=== PATIENT | female | born 1990 | race African-American/Black ===

== ENCOUNTER 2016-08-13 15:21 | Inpatient (IN) | payer MEDICAID ==
--- NOTE | 2016-08-13 16:37 | ER Document Report ---
ED Medical Screen (RME) - General Stated Complaint: BACK PAIN Mode of Arrival: Ambulatory Information source: Patient Notes: Patient complains pain due to her sickle cell. Patient complains of low back pain and bilateral lower extremity pain. No fever. Patient took oxycodone 10 mg at home without relief. hx: Sickle cell, heart murmur I have greeted and performed a rapid initial assessment of this patient. A comprehensive ED assessment and evaluation of the patient, analysis of test results and completion of the medical decision making process will be conducted by additional ED providers. TRAVEL OUTSIDE OF THE [place] IN LAST 30 DAYS: No - Related Data Allergies/Adverse Reactions: Beef Containing Products Allergy (Verified 06/05/16 15:05) ceftriaxone sodium [From Rocephin] Allergy (Verified 06/05/16 15:05) Cephalosporins Allergy (Verified 06/05/16 15:05) milk [Milk] Allergy (Verified 06/05/16 15:05) Shellfish * [Shellfish] Allergy (Verified 06/05/16 15:05) wheat [Wheat] Allergy (Verified 06/05/16 15:05) Past Medical History - Social History Family history: None - Past Medical History Cardiac Medical History: Reports: Hx Hypertension, Hx Heart Murmur Denies: Hx Coronary Artery Disease, Hx Heart Attack Pulmonary Medical History: Reports: Hx Pneumonia Denies: Hx Asthma, Hx Bronchitis, Hx COPD, Hx Tuberculosis Neurological Medical History: Reports: Hx Migraine, Hx Seizures - 1 x as a child. Denies: Hx Cerebrovascular Accident Endocrine Medical History: Denies: Hx Diabetes Mellitus Type 2, Hx Hyperthyroidism, Hx Hypothyroidism GI Medical History: Reports: Hx Gastroesophageal Reflux Disease Musculoskeltal Medical History: Denies Hx Arthritis, Denies Hx Fibromyalgia Skin Medical History: Reports Hx MRSA Psychiatric Medical History: Reports: Hx Depression Past Surgical History: Reports: Hx Adenoidectomy, Hx Cholecystectomy, Hx Oral Surgery - growth removed from under tongue, Hx Tonsillectomy, Other - Port placement 2 and removal for infection, multiple PICC lines, central l. Denies : Hx Hysterectomy, Hx Kidney (Renal Surgery), Hx Pacemaker - Immunizations Hx Diphtheria, Pertussis, Tetanus Vaccination: Yes Physical Exam - Vital signs Vitals: Temp Pulse Resp BP Pulse Ox 98.4 F 88 16 116/50 L 98 08/13/16 16:23 08/13/16 16:23 08/13/16 16:23 08/13/16 16:23 08/13/16 16:23 - Back Back: Tender - Low back tenderness Course - Vital Signs Vital signs: Temp Pulse Resp BP Pulse Ox 98.4 F 88 16 116/50 L 98 08/13/16 16:23 08/13/16 16:23 08/13/16 16:23 08/13/16 16:23 08/13/16 16:23
[2016-08-13 17:55] LABS: HEMATOCRIT 27.8 % (36.0-47.0); HEMOGLOBIN 9.5 g/dL (12.0-15.5); HGB HCT DIFFERENCE 0.7; MEAN CORPUSCULAR HEMOGLOBIN 35.6 pg (27.0-33.4); MEAN CORPUSCULAR HGB CONC 34.1 g/dL (32.0-36.0); MEAN CORPUSCULAR VOLUME 105 fl (80-97); RED BLOOD COUNT 2.66 10^6/uL (3.72-5.28); WHITE BLOOD COUNT 6.1 10^3/uL (4.0-10.5)
[2016-08-13 18:08] LABS: ALANINE AMINOTRANSFERASE 24 U/L (9-52); ALBUMIN 4.5 g/dL (3.5-5.0); ALKALINE PHOSPHATASE 67 U/L (38-126); ANION GAP 15 (5-19); ASPARTATE AMINO TRANSFERASE 26 U/L (14-36); BILIRUBIN,TOTAL 1.3 mg/dL (0.2-1.3); BLOOD UREA NITROGEN 6 mg/dL (7-20); CALCIUM 9.3 mg/dL (8.4-10.2); CARBON DIOXIDE 22 mmol/L (22-30); CHLORIDE 106 mmol/L (98-107); CREATININE RESULT 0.55 mg/dL (0.52-1.25); GLUCOSE 80 mg/dL (75-110); POTASSIUM 3.8 mmol/L (3.6-5.0); SODIUM 142.7 mmol/L (137-145); TOTAL PROTEIN 8.1 g/dL (6.3-8.2)
[2016-08-13 18:09] LABS: BASOPHILS % (MANUAL) 0 % (0-2); EOSINOPHILS % (MANUAL) 1 % (0-6); LYMPHOCYTES % (MANUAL) 47 % (13-45); NUCLEATED RED BLOOD CELLS 1 /100 WBC (0); TOTAL CELLS COUNTED 100
[2016-08-13 18:11] LABS: ANISOCYTOSIS 2+; OVALOCYTES 1+; POIKILOCYTOSIS 2+
[2016-08-13 18:12] LABS: HOWELL-JOLLY BODIES PRESENT; TARGET CELLS 1+
[2016-08-13] MEDS ORDERED: DIPHENHYDRAMINE HCL 50 MG/ML VIAL IV ONE (23:19)
[2016-08-13] MEDS ORDERED: HYDROMORPHONE HCL INJ/PF 2 MG/ML AMPULE IV ONE (23:19)
--- NOTE | 2016-08-13 23:19 | ER Document Report ---
ED General - General Chief Complaint: Sickle Cell Crisis Stated Complaint: BACK PAIN Time seen by provider: 23:19 Mode of Arrival: Ambulatory Information source: Patient TRAVEL OUTSIDE OF THE [place] IN LAST 30 DAYS: No - HPI Patient complains to provider of: low back pain, leg pain Onset: Yesterday Onset/Duration: Gradual, Persistent Quality of pain: Achy Severity: Moderate Pain Level: 3 Associated symptoms: None Exacerbated by: Denies Relieved by: Denies Similar symptoms previously: Yes Recently seen / treated by doctor: No Notes: Patient is a 26-year-old female presenting to the emergency room complaining of low back pain and bilateral lower extremity pain consistent with previous painful crises, she has a history of sickle cell disease, she denies any fever, no headaches, no nausea, vomiting or diarrhea, denies any injury or trauma, no numbness or tingling to her extremities, no bowel or bladder dysfunction - Related Data Allergies/Adverse Reactions: Beef Containing Products Allergy (Verified 06/05/16 15:05) ceftriaxone sodium [From Rocephin] Allergy (Verified 06/05/16 15:05) Cephalosporins Allergy (Verified 06/05/16 15:05) milk [Milk] Allergy (Verified 06/05/16 15:05) Shellfish * [Shellfish] Allergy (Verified 06/05/16 15:05) wheat [Wheat] Allergy (Verified 06/05/16 15:05) Past Medical History - General Information source: Patient - Social History Smoking Status: Never Smoker Family History: DM, Malignancy - Brother with Hodgkin's lymphoma. Maternal grandfather with lung cancer., Other - sickle trait Patient has suicidal ideation: No Patient has homicidal ideation: No - Past Medical History Cardiac Medical History: Reports: Hx Hypertension, Hx Heart Murmur Denies: Hx Coronary Artery Disease, Hx Heart Attack Pulmonary Medical History: Reports: Hx Pneumonia Denies: Hx Asthma, Hx Bronchitis, Hx COPD, Hx Tuberculosis Neurological Medical History: Reports: Hx Migraine, Hx Seizures - 1 x as a child. Denies: Hx Cerebrovascular Accident Endocrine Medical History: Denies: Hx Diabetes Mellitus Type 2, Hx Hyperthyroidism, Hx Hypothyroidism Renal/ Medical History: Denies: Hx Peritoneal Dialysis GI Medical History: Reports: Hx Gastroesophageal Reflux Disease Musculoskeltal Medical History: Denies Hx Arthritis, Denies Hx Fibromyalgia Skin Medical History: Reports Hx MRSA Psychiatric Medical History: Reports: Hx Depression Past Surgical History: Reports: Hx Adenoidectomy, Hx Cholecystectomy, Hx Oral Surgery - growth removed from under tongue, Hx Tonsillectomy, Other - Port placement 2 and removal for infection, multiple PICC lines, central l. Denies : Hx Hysterectomy, Hx Kidney (Renal Surgery), Hx Pacemaker - Immunizations Hx Diphtheria, Pertussis, Tetanus Vaccination: Yes Hx Pneumococcal Vaccination: 07/08/11 Review of Systems - Review of Systems Constitutional: No symptoms reported. denies: Fever EENT: No symptoms reported Cardiovascular: No symptoms reported Respiratory: No symptoms reported Gastrointestinal: No symptoms reported Genitourinary: No symptoms reported Female Genitourinary: No symptoms reported Musculoskeletal: See HPI Skin: No symptoms reported Hematologic/Lymphatic: No symptoms reported Neurological/Psychological: No symptoms reported -: Yes All other systems reviewed and negative Physical Exam - Vital signs Vitals: Temp Pulse Resp BP Pulse Ox 98.4 F 88 16 116/50 L 98 08/13/16 16:23 08/13/16 16:23 08/13/16 16:23 08/13/16 16:23 08/13/16 16:23 Interpretation: Normal - General General appearance: Appears well, Alert - HEENT Head: Normocephalic, Atraumatic Eyes: Normal Pupils: PERRL - Respiratory Respiratory status: No respiratory distress Chest status: Nontender Breath sounds: Normal Chest palpation: Normal - Cardiovascular Rhythm: Regular Heart sounds: Normal auscultation Murmur: No - Abdominal Inspection: Normal Distension: No distension Bowel sounds: Normal Tenderness: Nontender Organomegaly: No organomegaly - Back Back: Normal, Nontender - Extremities General upper extremity: Normal inspection, Nontender, Normal color, Normal ROM , Normal temperature General lower extremity: Normal inspection, Nontender, Normal color, Normal ROM , Normal temperature, Normal weight bearing. No: Charo's sign - Neurological Neuro grossly intact: Yes Cognition: Normal Orientation: AAOx4 [place] Coma Scale Eye Opening: Spontaneous [place] Coma Scale Verbal: Oriented [place] Coma Scale Motor: Obeys Commands [place] Coma Scale Total: 15 Speech: Normal Motor strength normal: LUE, RUE, LLE, RLE Sensory: Normal - Psychological Associated symptoms: Normal affect, Normal mood - Skin Skin Temperature: Warm Skin Moisture: Dry Skin Color: Normal Course - Re-evaluation Re-evalutation: 08/14/16 03:08 Patient was discussed with cloth coverer, Dr. Cornelius who recommends patient be admitted for her pain 08/14/16 03:30 Patient was discussed with the hospitalist including labs, vital signs, presentation, who states patient does not meet admission criteria at this point in time I placed a call back to patient's cloth coverer to let him know that patient does not meet admission criteria and the hospitalist has deferred admission, he stated he will speak with the hospitalist regarding this patient Patient's sister came out of the room and asked to speak with me, and stated that the patient told her that I was "giving her attitude", I attempted to explain to the patient's sister that we are trying our best to control patient' s pain and take care of her in the emergency room today, that she has received 3 rounds of pain medication at this point in time and that we have had a difficult time getting fluids and her because her IVs are positional and she keeps bending her arms, I explained to patient's sister that we are doing our best to take care of patient and get her pain under control - Vital Signs Vital signs: Temp Pulse Resp BP Pulse Ox 98.1 F 88 18 120/71 100 08/13/16 22:42 08/13/16 22:42 08/13/16 22:42 08/13/16 22:42 08/13/16 22:42 - Laboratory Result Diagrams: 08/13/16 17:25 08/13/16 17:25 Laboratory results interpreted by me: 08/13/16 08/13/16 17:25 17:25 RBC 2.66 L Hgb 9.5 L Hct 27.8 L MCV 105 H MCH 35.6 H RDW 25.0 H Lymphocytes % (Manual) 47 H BUN 6 L Procedures - Additional Procedures IV insertion Time performed: 01:34 Additional Procedures: IV insertion - 20-gauge IV catheter placed in left upper arm using ultrasound guidance Discharge - Discharge Clinical Impression: Sickle-cell disease with pain Condition: Stable Disposition: ADMITTED INPATIENT Admitting Provider: Hospitalist Unit Admitted: Medical Floor
[2016-08-13 23:24] LABS: APPEARANCE,URINE SLIGHTLY-CLOUDY; BILIRUBIN,URINE NEGATIVE (NEGATIVE); GLUCOSE, URINE NEGATIVE (NEGATIVE); KETONES,URINE NEGATIVE (NEGATIVE); LEUKOCYTE ESTERASE,URINE NEGATIVE (NEGATIVE); NITRITE,URINE NEGATIVE (NEGATIVE); PROTEIN,URINE NEGATIVE (NEGATIVE); URINE SPECIFIC GRAVITY 1.011; UROBILINOGEN,URINE NEGATIVE mg/dL (<2.0)
[2016-08-14] MEDS: NORMAL SALINE 1000 ML 1,000 ML IV PRN ×2 (00:46→03:12)
[2016-08-14] MEDS ORDERED: ONDANSETRON HCL INJ/PF 4 MG/2 ML SDV IV ONE (01:33)
[2016-08-14] MEDS ORDERED: HYDROMORPHONE HCL INJ/PF 2 MG/ML AMPULE IV ONE ×3 (01:33→10:30)
[2016-08-14] MEDS ORDERED: NORMAL SALINE 1000 ML 1,000 ML IV PRN ×2 (02:16→03:09)
[2016-08-14] MEDS ORDERED: ONDANSETRON HCL INJ/PF 4 MG/2 ML SDV IV PRN ×3 (03:38→14:56)
[2016-08-14] MEDS ORDERED: FLUTICASONE NASAL SPRAY 50 MCG/SPRY 120 SPRAY/16 GM NASL PRN (03:42)
[2016-08-14] MEDS ORDERED: SENNOSIDES/DOCUSATE 8.6-50 MG 1 EACH TABLET PO PRN (03:42)
[2016-08-14] MEDS ORDERED: HYDROXYUREA 500 MG CAPSULE PO SCH (04:00)
[2016-08-14] MEDS: NORMAL SALINE 1000 ML 1,000 ML IV SCH ×3 (04:50→14:30)
[2016-08-14 07:21] LABS: HGB HCT DIFFERENCE 0.7; MEAN CORPUSCULAR HEMOGLOBIN 35.6 pg (27.0-33.4); MEAN CORPUSCULAR HGB CONC 34.3 g/dL (32.0-36.0); MEAN CORPUSCULAR VOLUME 104 fl (80-97); RED BLOOD COUNT 2.21 10^6/uL (3.72-5.28); RED CELL DISTRIBUTION WIDTH 25.1 % (11.5-14.0); WHITE BLOOD COUNT 7.5 10^3/uL (4.0-10.5)
[2016-08-14 07:24] LABS: HEMOGLOBIN 7.9 g/dL (12.0-15.5)
[2016-08-14 07:34] LABS: ANION GAP 10 (5-19); BLOOD UREA NITROGEN 4 mg/dL (7-20); CALCIUM 8.2 mg/dL (8.4-10.2); CARBON DIOXIDE 22 mmol/L (22-30); CHLORIDE 111 mmol/L (98-107); CREATININE RESULT 0.49 mg/dL (0.52-1.25); GLUCOSE 97 mg/dL (75-110); POTASSIUM 3.6 mmol/L (3.6-5.0); SODIUM 142.8 mmol/L (137-145)
--- NOTE | 2016-08-14 07:55 | PDOC H&P ---
History of Present Illness Admission Date/PCP: 08/14/16 03:38 Patient complains of: Diffuse pain History of Present Illness: PRANAV JOINER is a 26 year old female with a challenging history of sickle cell disease, chronic pain and recurrent pain crisis occurring without biochemical or biophysical evidence of hemolysis, or decompensation in any way. Presenting to the emergency room with intolerable diffuse pain, with an animated affect I feel is inconsistent with pain. That said of been contacted by emergency room provider and patient's forensic toxicologist requesting admission. Past Medical History Cardiac Medical History: Reports: Hypertension, Heart Murmur Denies: Coronary Artery Disease, Myocardial Infarction Pulmonary Medical History: Reports: Pneumonia Denies: Asthma, Bronchitis, Chronic Obstructive Pulmonary Disease (COPD), Tuberculosis Neurological Medical History: Reports: Migraine, Seizures - 1 x as a child Endocrine Medical History: Denies: Diabetes Mellitus Type 2, Hyperthyroidism, Hypothyroidism GI Medical History: Reports: Gastroesophageal Reflux Disease Musculoskeltal Medical History: Denies: Arthritis, Fibromyalgia Psychiatric Medical History: Reports: Depression Hematology: Reports: Anemia, Sickle Cell Disease Past Surgical History Past Surgical History: Reports: Adenoidectomy, Cholecystectomy, Tonsillectomy, Other - Port placement 2 and removal for infection, multiple PICC lines, central l Denies: Hysterectomy, Pacemaker Social History Information Source: Patient, Emergency Med Personnel, [facility] Lives with: Alone Smoking Status: Never Smoker Frequency of Alcohol Use: Rare Hx Recreational Drug Use: No Drugs: None Hx Prescription Drug Abuse: No - unclear - Advance Directive Resuscitation Status: Full Code Family History Family History: DM, Malignancy - Brother with Hodgkin's lymphoma. Maternal grandfather with lung cancer., Other - sickle trait Parental Family History Reviewed: Yes Children Family History Reviewed: Yes Sibling(s) Family History Reviewed.: Yes Medication/Allergy Home Medications: Folic Acid 1 tab PO QHS 06/08/13 Eszopiclone [Lunesta] 1 tab PO QHS PRN 05/16/15 Amlodipine Besylate 1 tab PO DAILY 12/08/15 Butalb/Acetaminophen/Caffeine [Fioricet 50-300-40 mg Capsule] 1 - 2 cap PO Q6 PRN 12/08/15 Hydroxyzine HCl [Atarax 50 mg Tablet] 1 - 2 tab PO Q6HP PRN 12/13/15 Promethazine HCl [Phenergan 25 mg Tablet] 25 mg PO Q6HP PRN 12/13/15 Amitriptyline HCl 2 tab PO QHS 06/05/16 Cetirizine HCl [All Day Allergy] 10 mg PO DAILY 06/05/16 Hydroxyurea 3 cap PO QHS 06/05/16 Hydroxyurea 4 cap PO QHS 06/05/16 Amitriptyline HCl 25 mg PO QAM 06/06/16 Fluticasone Propionate [Flonase Nasal [place] 50 Mcg/Jack 16 gm] 2 sprays NASL DAILY PRN 06/06/16 Polyethylene Glycol 3350 [Miralax Powder 17 gm/Packet] 1 packet PO DAILY PRN Acetaminophen [Tylenol 325 mg Tablet] 650 mg PO Q4HP PRN tablet 06/16/16 Bisacodyl [Dulcolax 5 mg Tablet] 10 mg PO BID tabec 06/16/16 Hydromorphone HCl [Dilaudid] 8 mg PO Q8HP PRN #30 tablet 06/16/16 Polyethylene Glycol 3350 [Miralax Powder 17 gm/Packet] 17 gm PO Q12 powd.pack 06/16/16 Rivaroxaban [Xarelto 15 mg Tablet] 15 mg PO DAILY #30 tablet 06/16/16 Sennosides/Docusate 8.6-50 mg [Senna Plus Tablet] 1 each PO BIDP PRN tablet 04/22 Allergies/Adverse Reactions: Beef Containing Products Allergy (Verified 06/05/16 15:05) ceftriaxone sodium [From Rocephin] Allergy (Verified 06/05/16 15:05) Cephalosporins Allergy (Verified 06/05/16 15:05) milk [Milk] Allergy (Verified 06/05/16 15:05) Shellfish * [Shellfish] Allergy (Verified 06/05/16 15:05) wheat [Wheat] Allergy (Verified 06/05/16 15:05) Review of Systems Constitutional: ABSENT: chills, fever(s), headache(s), weight gain, weight loss Eyes: ABSENT: visual disturbances Ears: ABSENT: hearing changes Cardiovascular: ABSENT: chest pain, dyspnea on exertion, edema, orthropnea, palpitations Respiratory: ABSENT: cough, hemoptysis Gastrointestinal: ABSENT: abdominal pain, constipation, diarrhea, hematemesis, hematochezia, nausea, vomiting Genitourinary: ABSENT: dysuria, hematuria Musculoskeletal: PRESENT: back pain. ABSENT: joint swelling Integumentary: ABSENT: rash, wounds Neurological: ABSENT: abnormal gait, abnormal speech, confusion, dizziness, focal weakness, syncope Psychiatric: ABSENT: anxiety, depression, homidical ideation, suicidal ideation Endocrine: ABSENT: cold intolerance, heat intolerance, polydipsia, polyuria Hematologic/Lymphatic: ABSENT: easy bleeding, easy bruising Physical Exam Vital Signs: Temp Pulse Resp BP Pulse Ox 98.3 F 80 18 118/65 98 08/14/16 05:32 08/14/16 05:32 08/14/16 05:32 08/14/16 05:32 08/14/16 05:32 General appearance: PRESENT: no acute distress, cooperative Head exam: PRESENT: atraumatic, normocephalic Eye exam: PRESENT: conjunctiva pink, EOMI, PERRLA. ABSENT: scleral icterus Ear exam: PRESENT: normal external ear exam Mouth exam: PRESENT: moist, tongue midline Neck exam: ABSENT: carotid bruit, JVD, lymphadenopathy, thyromegaly Respiratory exam: PRESENT: clear to auscultation william. ABSENT: rales, rhonchi, wheezes Cardiovascular exam: PRESENT: RRR. ABSENT: diastolic murmur, rubs, systolic murmur Pulses: PRESENT: normal dorsalis pedis pul Vascular exam: PRESENT: normal capillary refill GI/Abdominal exam: PRESENT: normal bowel sounds, soft. ABSENT: distended, guarding, mass, organolmegaly, rebound, tenderness Rectal exam: PRESENT: deferred Extremities exam: PRESENT: full ROM. ABSENT: calf tenderness, clubbing, pedal edema Neurological exam: PRESENT: alert, awake, oriented to person, oriented to place , oriented to time, oriented to situation, CN II-XII grossly intact. ABSENT: motor sensory deficit Psychiatric exam: PRESENT: anxious, manic, unusual affect Focused psych exam: PRESENT: euphoric, flight of ideas Skin exam: PRESENT: dry, intact, warm. ABSENT: cyanosis, rash Results Laboratory Results: 08/14/16 07:03 08/14/16 08/14/16 07:03 07:03 Seg Neutrophils % Not Reportable Lymphocytes % Not Reportable Monocytes % Not Reportable Eosinophils % Not Reportable Basophils % Not Reportable Absolute Neutrophils Not Reportable Absolute Lymphocytes Not Reportable Absolute Monocytes Not Reportable Absolute Eosinophils Not Reportable Absolute Basophils Not Reportable Sodium 142.8 Potassium 3.6 Chloride 111 H Carbon Dioxide 22 Anion Gap 10 BUN 4 L Creatinine 0.49 L Est GFR ( Amer) > 60 Est GFR (Non-Af Amer) > 60 Glucose 97 Calcium 8.2 L Assessment & Plan - Diagnosis (1) Opiate dependence, continuous Is this a current diagnosis for this admission?: YesPlan: Strongly suggest opiate weaning (2) Sickle cell crisis Is this a current diagnosis for this admission?: YesPlan: Patient's oncologist consulted (3) Constipation Qualifiers: Constipation type: drug induced constipation Qualified Code(s): K59.03 - Drug induced constipation Is this a current diagnosis for this admission?: YesPlan: Opiate weaning and bowel regiment when necessary lactulose and Fleet enema - Time Time Spent: 30 to 50 Minutes
[2016-08-14 07:58] LABS: BASOPHILS % (MANUAL) 0 % (0-2); EOSINOPHILS % (MANUAL) 2 % (0-6); LYMPHOCYTES % (MANUAL) 31 % (13-45); NUCLEATED RED BLOOD CELLS 1 /100 WBC (0); TOTAL CELLS COUNTED 100
[2016-08-14 08:00] LABS: ANISOCYTOSIS 3+; HYPOCHROMASIA 1+; POLYCHROMASIA SLIGHT; SCHISTOCYTES 1+
[2016-08-14] MEDS: AMITRIPTYLINE HCL 25 MG TABLET PO SCH (08:37)
--- NOTE | 2016-08-14 08:57 | PDOC CONSULTATION ---
Consultation Consult Date: 08/14/16 Attending physician:: PATRICIA MORALES Consult reason:: Sickle cell crisis History of Present Illness Admission Date/PCP: 08/14/16 03:38 Patient complains of: Overall body pain consistent with sickle cell crisis History of Present Illness: 26-year-old female with presentation with sickle cell crisis, she has pain in her back arms and legs consistent with her usual sites of disease, we had been giving her IV fluids as an outpatient, for the last 2 weeks. Previously we treated the crisis that was going on for weeks ago with IV fluids as well as oral Dilaudid as an outpatient. Unfortunately now, the pain got worse and she had to be admitted. Hemoglobin has been stable in the 9 range. She did receive Dilaudid in the ED with some relief, we are changing medications now. Past Medical History Cardiac Medical History: Reports: Hypertension, Heart Murmur Denies: Coronary Artery Disease, Myocardial Infarction Pulmonary Medical History: Reports: Pneumonia Denies: Asthma, Bronchitis, Chronic Obstructive Pulmonary Disease (COPD), Tuberculosis Neurological Medical History: Reports: Migraine, Seizures - 1 x as a child Endocrine Medical History: Denies: Diabetes Mellitus Type 2, Hyperthyroidism, Hypothyroidism GI Medical History: Reports: Gastroesophageal Reflux Disease Musculoskeltal Medical History: Denies: Arthritis, Fibromyalgia Psychiatric Medical History: Reports: Depression Hematology: Reports: Anemia, Sickle Cell Disease Past Surgical History Past Surgical History: Reports: Adenoidectomy, Cholecystectomy, Tonsillectomy, Other - Port placement 2 and removal for infection, multiple PICC lines, central l Denies: Hysterectomy, Pacemaker Social History Lives with: Alone Smoking Status: Never Smoker Frequency of Alcohol Use: Rare Hx Recreational Drug Use: No Drugs: None Hx Prescription Drug Abuse: No - unclear - Advance Directive Resuscitation Status: Full Code Family History Family History: DM, Malignancy - Brother with Hodgkin's lymphoma. Maternal grandfather with lung cancer., Other - sickle trait Parental Family History Reviewed: Yes Children Family History Reviewed: Yes Sibling(s) Family History Reviewed.: Yes Medication/Allergy Home Medications: Folic Acid 1 tab PO QHS 06/08/13 Eszopiclone [Lunesta] 1 tab PO QHS PRN 05/16/15 Amlodipine Besylate 1 tab PO DAILY 12/08/15 Butalb/Acetaminophen/Caffeine [Fioricet 50-300-40 mg Capsule] 1 - 2 cap PO Q6 PRN 12/08/15 Hydroxyzine HCl [Atarax 50 mg Tablet] 1 - 2 tab PO Q6HP PRN 12/13/15 Promethazine HCl [Phenergan 25 mg Tablet] 25 mg PO Q6HP PRN 12/13/15 Amitriptyline HCl 2 tab PO QHS 06/05/16 Cetirizine HCl [All Day Allergy] 10 mg PO DAILY 06/05/16 Hydroxyurea 3 cap PO QHS 06/05/16 Hydroxyurea 4 cap PO QHS 06/05/16 Amitriptyline HCl 25 mg PO QAM 06/06/16 Fluticasone Propionate [Flonase Nasal [place] 50 Mcg/[place] 16 gm] 2 sprays NASL DAILY PRN 06/06/16 Polyethylene Glycol 3350 [Miralax Powder 17 gm/Packet] 1 packet PO DAILY PRN Acetaminophen [Tylenol 325 mg Tablet] 650 mg PO Q4HP PRN tablet 06/16/16 Bisacodyl [Dulcolax 5 mg Tablet] 10 mg PO BID tabec 06/16/16 Hydromorphone HCl [Dilaudid] 8 mg PO Q8HP PRN #30 tablet 06/16/16 Polyethylene Glycol 3350 [Miralax Powder 17 gm/Packet] 17 gm PO Q12 powd.pack 06/16/16 Rivaroxaban [Xarelto 15 mg Tablet] 15 mg PO DAILY #30 tablet 06/16/16 Sennosides/Docusate 8.6-50 mg [Senna Plus Tablet] 1 each PO BIDP PRN tablet 04/22 Allergies/Adverse Reactions: Beef Containing Products Allergy (Verified 06/05/16 15:05) ceftriaxone sodium [From Rocephin] Allergy (Verified 06/05/16 15:05) Cephalosporins Allergy (Verified 06/05/16 15:05) milk [Milk] Allergy (Verified 06/05/16 15:05) Shellfish * [Shellfish] Allergy (Verified 06/05/16 15:05) wheat [Wheat] Allergy (Verified 06/05/16 15:05) Review of Systems Constitutional: PRESENT: fatigue, weakness Cardiovascular: PRESENT: chest pain Respiratory: PRESENT: dyspnea Musculoskeletal: PRESENT: back pain, other - Arm pain, leg pain Integumentary: PRESENT: pruritus Psychiatric: PRESENT: depression Physical Exam Vital Signs: Temp Pulse Resp BP Pulse Ox 97.9 F 88 18 115/54 L 98 08/14/16 07:58 08/14/16 07:58 08/14/16 07:58 08/14/16 07:58 08/14/16 07:58 General appearance: PRESENT: no acute distress, well-developed, well-nourished Head exam: PRESENT: atraumatic, normocephalic Eye exam: PRESENT: conjunctiva pink, EOMI, PERRLA. ABSENT: scleral icterus Ear exam: PRESENT: normal external ear exam Mouth exam: PRESENT: moist, tongue midline Neck exam: ABSENT: carotid bruit, JVD, lymphadenopathy, thyromegaly Respiratory exam: PRESENT: clear to auscultation william. ABSENT: rales, rhonchi, wheezes Cardiovascular exam: PRESENT: RRR. ABSENT: diastolic murmur, rubs, systolic murmur Pulses: PRESENT: normal dorsalis pedis pul Vascular exam: PRESENT: normal capillary refill GI/Abdominal exam: PRESENT: normal bowel sounds, soft. ABSENT: distended, guarding, mass, organolmegaly, rebound, tenderness Rectal exam: PRESENT: deferred Extremities exam: PRESENT: full ROM. ABSENT: calf tenderness, clubbing, pedal edema Neurological exam: PRESENT: alert, awake, oriented to person, oriented to place , oriented to time, oriented to situation, CN II-XII grossly intact. ABSENT: motor sensory deficit Psychiatric exam: PRESENT: appropriate affect, normal mood. ABSENT: homicidal ideation, suicidal ideation Skin exam: PRESENT: dry, intact, warm. ABSENT: cyanosis, rash Results Laboratory Results: 08/14/16 07:03 08/14/16 07:03 08/14/16 08/14/16 07:03 07:03 WBC 7.5 RBC 2.21 L Hgb 7.9 L Hct 23.0 L MCV 104 H MCH 35.6 H MCHC 34.3 RDW 25.1 H Plt Count 291 Seg Neutrophils % Not Reportable Lymphocytes % Not Reportable Monocytes % Not Reportable Eosinophils % Not Reportable Basophils % Not Reportable Absolute Neutrophils Not Reportable Absolute Lymphocytes Not Reportable Absolute Monocytes Not Reportable Absolute Eosinophils Not Reportable Absolute Basophils Not Reportable Sodium 142.8 Potassium 3.6 Chloride 111 H Carbon Dioxide 22 Anion Gap 10 BUN 4 L Creatinine 0.49 L Est GFR ( Amer) > 60 Est GFR (Non-Af Amer) > 60 Glucose 97 Calcium 8.2 L Assessment & Plan - Diagnosis (1) Sickle cell crisis Is this a current diagnosis for this admission?: YesPlan: Patient with sickle cell pain crisis, we'll start Dilaudid 3 mg IV every 2 hours scheduled, started Phenergan, Atarax for itching, K pad for comfort, SCD/ Prakash's. - Time Time Spent: 30 to 50 Minutes Critical Time spent with patient: 15-24 minutes - Inpatient Certification Based on my medical assessment, after consideration of the patient's comorbidities, presenting symptoms, or acuity I expect that the services needed warrant INPATIENT care.: Yes I certify that my determination is in accordance with my understanding of Medicare's requirements for reasonable and necessary INPATIENT services [42 CFR 412.3e].: Yes Medical Necessity: Need For IV Fluids, Need for Pain Control
[2016-08-14] MEDS: AMLODIPINE BESYLATE 5 MG TABLET PO SCH (09:06)
[2016-08-14] MEDS: DOCUSATE SODIUM 100 MG CAPSULE PO SCH ×2 (09:07→18:43)
[2016-08-14 09:36] LABS: APPEARANCE,URINE CLEAR; BILIRUBIN,URINE NEGATIVE (NEGATIVE); GLUCOSE, URINE NEGATIVE (NEGATIVE); KETONES,URINE NEGATIVE (NEGATIVE); LEUKOCYTE ESTERASE,URINE NEGATIVE (NEGATIVE); NITRITE,URINE NEGATIVE (NEGATIVE); PROTEIN,URINE NEGATIVE (NEGATIVE); URINE SPECIFIC GRAVITY 1.008; UROBILINOGEN,URINE NEGATIVE mg/dL (<2.0)
[2016-08-14 10:06] LABS: URINE BARBITURATES SCREEN NEGATIVE; URINE METHADONE SCREEN NEGATIVE; URINE PHENCYCLIDINE SCREEN NEGATIVE
[2016-08-14 10:09] LABS: URINE OPIATES LOW UNCONFIRMED POSITIVE
[2016-08-14] MEDS: POLYETHYLENE GLYCOL 3350 POWDER 17 GM/1 PACKET PO PRN (11:21)
[2016-08-14] MEDS: RIVAROXABAN 15 MG TABLET PO SCH (11:25)
[2016-08-14] MEDS ORDERED: HYDROMORPHONE HCL INJ/PF 2 MG/ML AMPULE IV SCH (12:00)
[2016-08-14] MEDS: HYDROXYZINE PAMOATE 25 MG CAPSULE PO PRN (12:57)
[2016-08-14] MEDS: HYDROMORPHONE HCL INJ/PF 2 MG/ML AMPULE IV SCH ×5 (14:11→22:02)
--- NOTE | 2016-08-14 15:26 | PDOC PROGRESS REPORT ---
Subjective Progress Note for:: 08/14/16 Subjective:: The patient was seen earlier today on rounds. The patient admits to sniffles. Patient is enjoying her lunch upon rounds. The patient also admits to some shortness of breath with activity. The patient denies any nausea, vomiting, diarrhea, dizziness, chest pain, heart palpitations, fevers, or chills. The patient has remained afebrile. Blood pressures have been in a good range. When prompted the patient voices no other concerns at this time. Review of systems: The rest of the review of systems is negative. Physical Exam Vital Signs: Temp Pulse Resp BP Pulse Ox 98.6 F 107 H 16 130/60 H 98 08/14/16 11:24 08/14/16 11:24 08/14/16 11:24 08/14/16 11:24 08/14/16 11:24 General appearance: PRESENT: no acute distress, cooperative, well-developed, well-nourished Head exam: PRESENT: atraumatic, normocephalic Eye exam: PRESENT: conjunctiva pink, EOMI, PERRLA. ABSENT: scleral icterus Ear exam: PRESENT: normal external ear exam Mouth exam: PRESENT: moist, tongue midline Neck exam: ABSENT: carotid bruit, JVD, lymphadenopathy, thyromegaly Respiratory exam: PRESENT: clear to auscultation william, symmetrical, unlabored. ABSENT: rales, rhonchi, tachypnea, wheezes Cardiovascular exam: PRESENT: RRR. ABSENT: diastolic murmur, rubs, systolic murmur Pulses: PRESENT: normal dorsalis pedis pul Vascular exam: PRESENT: normal capillary refill GI/Abdominal exam: PRESENT: normal bowel sounds, soft. ABSENT: distended, guarding, mass, organolmegaly, rebound, tenderness Rectal exam: PRESENT: deferred Extremities exam: PRESENT: full ROM. ABSENT: calf tenderness, clubbing, pedal edema Neurological exam: PRESENT: alert, awake, oriented to person, oriented to place , oriented to time, oriented to situation, CN II-XII grossly intact. ABSENT: motor sensory deficit Psychiatric exam: PRESENT: appropriate affect, normal mood. ABSENT: homicidal ideation, suicidal ideation Skin exam: PRESENT: dry, intact, warm. ABSENT: cyanosis, rash Results Laboratory Results: 08/14/16 07:03 08/14/16 07:03 08/14/16 08/14/16 08/14/16 07:03 07:03 09:14 WBC 7.5 RBC 2.21 L Hgb 7.9 L Hct 23.0 L MCV 104 H MCH 35.6 H MCHC 34.3 RDW 25.1 H Plt Count 291 Seg Neutrophils % Not Reportable Lymphocytes % Not Reportable Monocytes % Not Reportable Eosinophils % Not Reportable Basophils % Not Reportable Absolute Neutrophils Not Reportable Absolute Lymphocytes Not Reportable Absolute Monocytes Not Reportable Absolute Eosinophils Not Reportable Absolute Basophils Not Reportable Sodium 142.8 Potassium 3.6 Chloride 111 H Carbon Dioxide 22 Anion Gap 10 BUN 4 L Creatinine 0.49 L Est GFR ( Amer) > 60 Est GFR (Non-Af Amer) > 60 Glucose 97 Calcium 8.2 L Urine Color YELLOW Urine Appearance CLEAR Urine pH 6.0 Ur Specific [place] 1.008 Urine Protein NEGATIVE Urine Glucose (UA) NEGATIVE Urine Ketones NEGATIVE Urine Blood NEGATIVE Urine Nitrite NEGATIVE Ur Leukocyte Esterase NEGATIVE Urine WBC (Auto) 1 Urine RBC (Auto) 0 Assessment & Plan - Diagnosis (1) Sickle-cell disease with pain Is this a current diagnosis for this admission?: YesPlan: Management as per hematology (2) Dyspnea Qualifiers: Dyspnea type: dyspnea on exertion Qualified Code(s): R06.09 - Other forms of dyspnea Is this a current diagnosis for this admission?: YesPlan: Continue supplemental O2. I have added Singulair and Flonase (3) Opiate dependence, continuous Is this a current diagnosis for this admission?: YesPlan: As per hematology (4) Cardiac dysrhythmia Qualifiers: Arrhythmia type: ventricular tachycardia Qualified Code(s): I47.2 - Ventricular tachycardia Is this a current diagnosis for this admission?: No (5) Constipation Qualifiers: Constipation type: drug induced constipation Qualified Code(s): K59.03 - Drug induced constipation Is this a current diagnosis for this admission?: Yes (6) DVT prophylaxis Is this a current diagnosis for this admission?: Yes (7) Deep venous thrombosis of right upper limb Qualifiers: Affected thrombotic vein of extremity: axillary Chronicity: unspecified Qualified Code(s): I82.A11 - Acute embolism and thrombosis of right axillary vein Is this a current diagnosis for this admission?: No (8) Hypertension Qualifiers: Hypertension type: essential hypertension Qualified Code(s): I10 - Essential (primary) hypertension Is this a current diagnosis for this admission?: YesPlan: Continue her medications (9) Major depression Qualifiers: Major depression recurrence: recurrent Major depression episode severity: moderate Is this a current diagnosis for this admission?: YesPlan: Will continue home medications. - Time Time Spent with patient: on this visit including assessment, plan, physical examination, specialty collaboration, and patient education is 35 minutes. Time Spent with patient: 35 or more minutes Medications reviewed and adjusted accordingly: Yes Anticipated discharge: Home Disposition: As per hematology
[2016-08-14] MEDS: PROMETHAZINE HCL INJ 25 MG/1 ML VIAL IV PRN (19:01)
[2016-08-14] MEDS: MONTELUKAST SODIUM 10 MG TABLET PO SCH (22:01)
[2016-08-14] MEDS: HYDROXYUREA 500 MG CAPSULE PO SCH (22:01)
[2016-08-14] MEDS: FLUTICASONE NASAL SPRAY 50 MCG/SPRY 120 SPRAY/16 GM NASL SCH (22:02)
[2016-08-15] MEDS: HYDROMORPHONE HCL INJ/PF 2 MG/ML AMPULE IV SCH ×11 (00:12→22:18)
[2016-08-15] MEDS: HYDROXYZINE PAMOATE 25 MG CAPSULE PO PRN ×3 (00:20→17:20)
[2016-08-15 06:55] LABS: HEMATOCRIT 21.5 % (36.0-47.0); MEAN CORPUSCULAR HEMOGLOBIN 36.5 pg (27.0-33.4); MEAN CORPUSCULAR VOLUME 104 fl (80-97); RED BLOOD COUNT 2.06 10^6/uL (3.72-5.28); WHITE BLOOD COUNT 8.4 10^3/uL (4.0-10.5)
[2016-08-15 07:07] LABS: ANION GAP 11 (5-19); BLOOD UREA NITROGEN 3 mg/dL (7-20); CALCIUM 8.8 mg/dL (8.4-10.2); CARBON DIOXIDE 22 mmol/L (22-30); CHLORIDE 107 mmol/L (98-107); CREATININE RESULT 0.45 mg/dL (0.52-1.25); GLUCOSE 82 mg/dL (75-110); POTASSIUM 3.9 mmol/L (3.6-5.0); SODIUM 140.4 mmol/L (137-145)
[2016-08-15 07:15] LABS: HEMOGLOBIN 7.5 g/dL (12.0-15.5)
[2016-08-15 07:33] LABS: ANISOCYTOSIS 3+; BASOPHILS % (MANUAL) 0 % (0-2); EOSINOPHILS % (MANUAL) 2 % (0-6); HYPOCHROMASIA 2+; LYMPHOCYTES % (MANUAL) 53 % (13-45); NUCLEATED RED BLOOD CELLS 1 /100 WBC (0); OVALOCYTES 1+; POIKILOCYTOSIS 2+; POLYCHROMASIA 2+; SCHISTOCYTES 1+; TARGET CELLS 1+; TOTAL CELLS COUNTED 100
[2016-08-15 07:34] LABS: HOWELL-JOLLY BODIES PRESENT
[2016-08-15] MEDS: AMITRIPTYLINE HCL 25 MG TABLET PO SCH (08:27)
[2016-08-15] MEDS: PROMETHAZINE HCL INJ 25 MG/1 ML VIAL IV PRN ×3 (08:50→22:16)
--- NOTE | 2016-08-15 08:56 | PDOC PROGRESS REPORT ---
Subjective Progress Note for:: 08/15/16 Subjective:: Patient had a rough night yesterday had a lot of pain Physical Exam Vital Signs: Temp Pulse Resp BP Pulse Ox 98.3 F 108 H 20 132/70 H 98 08/14/16 22:01 08/14/16 22:01 08/14/16 22:01 08/14/16 22:01 08/15/16 05:09 Intake & Output 08/14/16 08/15/16 08/16/16 06:59 06:59 06:59 Intake Total 2070 Output Total 2600 Balance -530 General appearance: PRESENT: no acute distress, well-developed, well-nourished Head exam: PRESENT: atraumatic, normocephalic Eye exam: PRESENT: conjunctiva pink, EOMI, PERRLA. ABSENT: scleral icterus Ear exam: PRESENT: normal external ear exam Mouth exam: PRESENT: moist, tongue midline Neck exam: ABSENT: carotid bruit, JVD, lymphadenopathy, thyromegaly Respiratory exam: PRESENT: clear to auscultation william. ABSENT: rales, rhonchi, wheezes Cardiovascular exam: PRESENT: RRR. ABSENT: diastolic murmur, rubs, systolic murmur Pulses: PRESENT: normal dorsalis pedis pul Vascular exam: PRESENT: normal capillary refill GI/Abdominal exam: PRESENT: normal bowel sounds, soft. ABSENT: distended, guarding, mass, organolmegaly, rebound, tenderness Rectal exam: PRESENT: deferred Extremities exam: PRESENT: full ROM. ABSENT: calf tenderness, clubbing, pedal edema Neurological exam: PRESENT: alert, awake, oriented to person, oriented to place , oriented to time, oriented to situation, CN II-XII grossly intact. ABSENT: motor sensory deficit Psychiatric exam: PRESENT: appropriate affect, normal mood. ABSENT: homicidal ideation, suicidal ideation Skin exam: PRESENT: dry, intact, warm. ABSENT: cyanosis, rash Results Laboratory Results: 08/15/16 06:22 08/15/16 06:22 08/14/16 08/15/16 08/15/16 09:14 06:22 06:22 WBC 8.4 RBC 2.06 L Hgb 7.5 L Hct 21.5 L MCV 104 H MCH 36.5 H MCHC 35.0 RDW 25.0 H Plt Count 268 Seg Neutrophils % Not Reportable Lymphocytes % Not Reportable Monocytes % Not Reportable Eosinophils % Not Reportable Basophils % Not Reportable Absolute Neutrophils Not Reportable Absolute Lymphocytes Not Reportable Absolute Monocytes Not Reportable Absolute Eosinophils Not Reportable Absolute Basophils Not Reportable Sodium 140.4 Potassium 3.9 Chloride 107 Carbon Dioxide 22 Anion Gap 11 BUN 3 L Creatinine 0.45 L Est GFR ( Amer) > 60 Est GFR (Non-Af Amer) > 60 Glucose 82 Calcium 8.8 Urine Color YELLOW Urine Appearance CLEAR Urine pH 6.0 Ur Specific [place] 1.008 Urine Protein NEGATIVE Urine Glucose (UA) NEGATIVE Urine Ketones NEGATIVE Urine Blood NEGATIVE Urine Nitrite NEGATIVE Ur Leukocyte Esterase NEGATIVE Urine WBC (Auto) 1 Urine RBC (Auto) 0 Assessment & Plan - Diagnosis (1) Sickle cell crisis Is this a current diagnosis for this admission?: YesPlan: Sickle cell disease with crisis, we will increase Dilaudid today, continue all other medications, K pad to legs for comfort, monitor closely, hold on blood transfusion for now, once hemoglobin gets under 7 plan for transfusion. - Time Time Spent with patient: 25-34 minutes Critical Time spent with patient: 25-34 minutes - Inpatient Certification Based on my medical assessment, after consideration of the patient's comorbidities, presenting symptoms, or acuity I expect that the services needed warrant INPATIENT care.: Yes I certify that my determination is in accordance with my understanding of Medicare's requirements for reasonable and necessary INPATIENT services [42 CFR 412.3e].: Yes Medical Necessity: Need for IV Antibiotics
[2016-08-15] MEDS: FLUTICASONE NASAL SPRAY 50 MCG/SPRY 120 SPRAY/16 GM NASL SCH ×2 (10:23→22:14)
[2016-08-15] MEDS: AMLODIPINE BESYLATE 5 MG TABLET PO SCH (10:24)
[2016-08-15] MEDS: RIVAROXABAN 15 MG TABLET PO SCH (10:25)
[2016-08-15] MEDS: DOCUSATE SODIUM 100 MG CAPSULE PO SCH ×2 (10:26→19:20)
[2016-08-15] MEDS: POLYETHYLENE GLYCOL 3350 POWDER 17 GM/1 PACKET PO PRN (10:28)
--- NOTE | 2016-08-15 14:13 | PDOC PROGRESS REPORT ---
Subjective Progress Note for:: 08/15/16 Subjective:: Patient seen on morning rounds. She is resting in bed. She is tearful. She states she had a rough night because of pain. Nursing staff reports she slept most of the night She states she is still having nausea and vomiting, but is asking for a regular diet. She denies any shortness of breath or dyspnea. She denies any cough. Physical Exam Vital Signs: Temp Pulse Resp BP Pulse Ox 98.7 F 100 16 96/51 L 93 08/15/16 12:14 08/15/16 12:14 08/15/16 12:14 08/15/16 12:14 08/15/16 12:14 Intake & Output 08/14/16 08/15/16 08/16/16 06:59 06:59 06:59 Intake Total 2070 Output Total 2600 Balance -530 General appearance: PRESENT: no acute distress, well-developed, well-nourished Head exam: PRESENT: atraumatic, normocephalic Eye exam: PRESENT: conjunctiva pink, EOMI, PERRLA. ABSENT: scleral icterus Ear exam: PRESENT: normal external ear exam Mouth exam: PRESENT: moist, tongue midline Neck exam: ABSENT: carotid bruit, JVD, lymphadenopathy, thyromegaly Respiratory exam: PRESENT: clear to auscultation william. ABSENT: rales, rhonchi, wheezes Cardiovascular exam: PRESENT: RRR. ABSENT: diastolic murmur, rubs, systolic murmur Pulses: PRESENT: normal dorsalis pedis pul Vascular exam: PRESENT: normal capillary refill GI/Abdominal exam: PRESENT: normal bowel sounds, soft. ABSENT: distended, guarding, mass, organolmegaly, rebound, tenderness Rectal exam: PRESENT: deferred Extremities exam: PRESENT: full ROM. ABSENT: calf tenderness, clubbing, pedal edema Neurological exam: PRESENT: alert, awake, oriented to person, oriented to place , oriented to time, oriented to situation, CN II-XII grossly intact. ABSENT: motor sensory deficit Psychiatric exam: PRESENT: anxious Skin exam: PRESENT: dry, intact, warm. ABSENT: cyanosis, rash Results Laboratory Results: 08/15/16 06:22 08/15/16 06:22 08/15/16 08/15/16 06:22 06:22 WBC 8.4 RBC 2.06 L Hgb 7.5 L Hct 21.5 L MCV 104 H MCH 36.5 H MCHC 35.0 RDW 25.0 H Plt Count 268 Seg Neutrophils % Not Reportable Lymphocytes % Not Reportable Monocytes % Not Reportable Eosinophils % Not Reportable Basophils % Not Reportable Absolute Neutrophils Not Reportable Absolute Lymphocytes Not Reportable Absolute Monocytes Not Reportable Absolute Eosinophils Not Reportable Absolute Basophils Not Reportable Sodium 140.4 Potassium 3.9 Chloride 107 Carbon Dioxide 22 Anion Gap 11 BUN 3 L Creatinine 0.45 L Est GFR ( Amer) > 60 Est GFR (Non-Af Amer) > 60 Glucose 82 Calcium 8.8 Assessment & Plan - Diagnosis (1) Sickle-cell disease with pain Is this a current diagnosis for this admission?: YesPlan: Pain management per Dr Cornelius, 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 Hgb 7.5. Will hold transfusion unless under 7. (2) Hypertension Qualifiers: Hypertension type: essential hypertension Qualified Code(s): I10 - Essential (primary) hypertension Is this a current diagnosis for this admission?: YesPlan: Presently normotensive on current medications (3) Opiate dependence, continuous Is this a current diagnosis for this admission?: YesPlan: Patient is tolerating dilaudid 3 mg IV q2hprn. She is on chronic opioid therapy at home. (4) Major depression Qualifiers: Major depression recurrence: recurrent Major depression episode severity: moderate Is this a current diagnosis for this admission?: YesPlan: Continue current medications (5) Constipation Qualifiers: Constipation type: drug induced constipation Qualified Code(s): K59.03 - Drug induced constipation Is this a current diagnosis for this admission?: YesPlan: Patient states her bowels moved yesterday (6) Diastolic CHF Qualifiers: Congestive heart failure chronicity: chronic Qualified Code(s): I50.32 - Chronic diastolic (congestive) heart failure Is this a current diagnosis for this admission?: YesPlan: Patient is presently euvolemic. She denies dyspnea - Time Time Spent with patient: 25-34 minutes Critical Time spent with patient: 15-24 minutes Medications reviewed and adjusted accordingly: Yes
[2016-08-15] MEDS: HYDROXYUREA 500 MG CAPSULE PO SCH (22:16)
[2016-08-15] MEDS: MONTELUKAST SODIUM 10 MG TABLET PO SCH (22:17)
[2016-08-16] MEDS: HYDROXYZINE PAMOATE 25 MG CAPSULE PO PRN (00:20)
[2016-08-16] MEDS: HYDROMORPHONE HCL INJ/PF 2 MG/ML AMPULE IV SCH ×12 (00:21→23:06)
[2016-08-16] MEDS: NORMAL SALINE 1000 ML 1,000 ML IV PRN ×2 (00:25→11:59)
[2016-08-16] MEDS: PROMETHAZINE HCL INJ 25 MG/1 ML VIAL IV PRN ×2 (04:39→17:54)
[2016-08-16 07:48] LABS: HEMATOCRIT 19.2 % (36.0-47.0); HGB HCT DIFFERENCE 1.5; MEAN CORPUSCULAR HEMOGLOBIN 36.3 pg (27.0-33.4); MEAN CORPUSCULAR HGB CONC 35.7 g/dL (32.0-36.0); MEAN CORPUSCULAR VOLUME 102 fl (80-97); RED BLOOD COUNT 1.89 10^6/uL (3.72-5.28); RED CELL DISTRIBUTION WIDTH 25.9 % (11.5-14.0)
[2016-08-16 08:01] LABS: ANION GAP 9 (5-19); BLOOD UREA NITROGEN 3 mg/dL (7-20); CALCIUM 8.5 mg/dL (8.4-10.2); CARBON DIOXIDE 24 mmol/L (22-30); CHLORIDE 106 mmol/L (98-107); CREATININE RESULT 0.43 mg/dL (0.52-1.25); GLUCOSE 73 mg/dL (75-110); POTASSIUM 3.7 mmol/L (3.6-5.0); SODIUM 138.7 mmol/L (137-145)
[2016-08-16 08:02] LABS: HEMOGLOBIN 6.9 g/dL (12.0-15.5)
[2016-08-16 08:06] LABS: ANISOCYTOSIS 3+; BAND NEUTROPHILS % (MANUAL) 1 % (3-5); BASOPHILS % (MANUAL) 0 % (0-2); EOSINOPHILS % (MANUAL) 1 % (0-6); HOWELL-JOLLY BODIES PRESENT; HYPOCHROMASIA 1+; LYMPHOCYTES % (MANUAL) 39 % (13-45); NUCLEATED RED BLOOD CELLS 1 /100 WBC (0); OVALOCYTES 2+; POIKILOCYTOSIS 3+; TOTAL CELLS COUNTED 100
[2016-08-16] MEDS: AMITRIPTYLINE HCL 25 MG TABLET PO SCH (08:14)
--- NOTE | 2016-08-16 08:40 | PDOC PROGRESS REPORT ---
Subjective Progress Note for:: 08/16/16 Subjective:: Patient still having a lot of pain today but would like to keep the pain medication the same. Physical Exam Vital Signs: Temp Pulse Resp BP Pulse Ox 98.4 F 116 H 18 116/60 100 08/15/16 23:26 08/15/16 23:26 08/15/16 23:26 08/15/16 23:26 08/15/16 23:26 Intake & Output 08/15/16 08/16/16 08/17/16 06:59 06:59 06:59 Intake Total 2070 800 Output Total 2600 1200 Balance -530 -400 General appearance: PRESENT: no acute distress, well-developed, well-nourished Head exam: PRESENT: atraumatic, normocephalic Eye exam: PRESENT: conjunctiva pink, EOMI, PERRLA. ABSENT: scleral icterus Ear exam: PRESENT: normal external ear exam Mouth exam: PRESENT: moist, tongue midline Neck exam: ABSENT: carotid bruit, JVD, lymphadenopathy, thyromegaly Respiratory exam: PRESENT: clear to auscultation william. ABSENT: rales, rhonchi, wheezes Cardiovascular exam: PRESENT: RRR. ABSENT: diastolic murmur, rubs, systolic murmur Pulses: PRESENT: normal dorsalis pedis pul Vascular exam: PRESENT: normal capillary refill GI/Abdominal exam: PRESENT: normal bowel sounds, soft. ABSENT: distended, guarding, mass, organolmegaly, rebound, tenderness Rectal exam: PRESENT: deferred Extremities exam: PRESENT: full ROM. ABSENT: calf tenderness, clubbing, pedal edema Neurological exam: PRESENT: alert, awake, oriented to person, oriented to place , oriented to time, oriented to situation, CN II-XII grossly intact. ABSENT: motor sensory deficit Psychiatric exam: PRESENT: appropriate affect, normal mood. ABSENT: homicidal ideation, suicidal ideation Skin exam: PRESENT: dry, intact, warm. ABSENT: cyanosis, rash Results Laboratory Results: 08/16/16 06:25 08/16/16 06:25 08/16/16 08/16/16 06:25 06:25 WBC 6.0 RBC 1.89 L Hgb 6.9 L Hct 19.2 L MCV 102 H MCH 36.3 H MCHC 35.7 RDW 25.9 H Plt Count 249 Seg Neutrophils % Not Reportable Lymphocytes % Not Reportable Monocytes % Not Reportable Eosinophils % Not Reportable Basophils % Not Reportable Absolute Neutrophils Not Reportable Absolute Lymphocytes Not Reportable Absolute Monocytes Not Reportable Absolute Eosinophils Not Reportable Absolute Basophils Not Reportable Sodium 138.7 Potassium 3.7 Chloride 106 Carbon Dioxide 24 Anion Gap 9 BUN 3 L Creatinine 0.43 L Est GFR ( Amer) > 60 Est GFR (Non-Af Amer) > 60 Glucose 73 L Calcium 8.5 Assessment & Plan - Diagnosis (1) Sickle cell crisis Is this a current diagnosis for this admission?: YesPlan: Continue with current pain medication today, she will need PICC line placement, I will change Atarax to Benadryl, I have added a bowel regimen continue with aggressive IV hydration. (2) Sickle cell anemia Qualifiers: Sickle-cell associated disorders: with unspecified crisis Qualified Code(s): D57.00 - Hb-SS disease with crisis, unspecified; D57.0 - Hb-SS disease with crisis Is this a current diagnosis for this admission?: YesPlan: Patient with sickle cell anemia, hemoglobin is dropped because of the crisis, plan to transfuse 2 units of packed red blood cells. - Time Time Spent with patient: 25-34 minutes Critical Time spent with patient: 25-34 minutes Medications reviewed and adjusted accordingly: Yes - Inpatient Certification Based on my medical assessment, after consideration of the patient's comorbidities, presenting symptoms, or acuity I expect that the services needed warrant INPATIENT care.: Yes I certify that my determination is in accordance with my understanding of Medicare's requirements for reasonable and necessary INPATIENT services [42 CFR 412.3e].: Yes Medical Necessity: Need For Continuous Telemetry Monitoring, Need for Pain Control
[2016-08-16] MEDS ORDERED: SENNOSIDES/DOCUSATE 8.6-50 MG 1 EACH TABLET PO PRN (08:59)
[2016-08-16] MEDS ORDERED: POLYETHYLENE GLYCOL 3350 POWDER 17 GM/1 PACKET PO PRN (08:59)
[2016-08-16] MEDS ORDERED: DIPHENHYDRAMINE HCL 25 MG CAPSULE PO PRN (09:06)
[2016-08-16] MEDS ORDERED: ACETAMINOPHEN 325 MG TABLET PO PRN (09:07)
[2016-08-16] MEDS ORDERED: FUROSEMIDE INJ/PF 20 MG/2 ML SDV IV PRN (09:42)
[2016-08-16] MEDS ORDERED: (PENDING PHARMACY ID) (Cetirizine Hcl [Zyrtec] 10 MG) PO SCH (10:00)
--- NOTE | 2016-08-16 10:18 | PDOC PROGRESS REPORT ---
Subjective Progress Note for:: 08/16/16 Subjective:: The patient has just returned from having a PICC line placed. The patient does seem a little groggy. It appears the patient is to have a blood transfusion as per hematology. pain management as per hematology. Sinus congestion has appear to improved. No reported episodes of diarrhea. Physical Exam Vital Signs: Temp Pulse Resp BP Pulse Ox 98.4 F 116 H 18 116/60 100 08/15/16 23:26 08/15/16 23:26 08/15/16 23:26 08/15/16 23:26 08/15/16 23:26 Intake & Output 08/14/16 08/15/16 08/16/16 23:59 23:59 23:59 Intake Total 1140 1730 Output Total 1300 2500 Balance -160 -770 General appearance: PRESENT: no acute distress, cooperative, well-developed, well-nourished Head exam: PRESENT: atraumatic, normocephalic Eye exam: PRESENT: conjunctiva pink, EOMI, PERRLA. ABSENT: scleral icterus Ear exam: PRESENT: normal external ear exam Mouth exam: PRESENT: moist, tongue midline Neck exam: ABSENT: carotid bruit, JVD, lymphadenopathy, thyromegaly Respiratory exam: PRESENT: clear to auscultation william, symmetrical, unlabored. ABSENT: rales, rhonchi, tachypnea, wheezes Cardiovascular exam: PRESENT: RRR. ABSENT: diastolic murmur, rubs, systolic murmur Pulses: PRESENT: normal dorsalis pedis pul Vascular exam: PRESENT: normal capillary refill GI/Abdominal exam: PRESENT: normal bowel sounds, soft. ABSENT: distended, guarding, mass, organolmegaly, rebound, tenderness Rectal exam: PRESENT: deferred Extremities exam: PRESENT: full ROM. ABSENT: calf tenderness, clubbing, pedal edema Neurological exam: PRESENT: alert, awake, oriented to person, oriented to place , oriented to time, oriented to situation, CN II-XII grossly intact. ABSENT: motor sensory deficit Psychiatric exam: PRESENT: Groggy, normal mood. ABSENT: homicidal ideation, suicidal ideation Skin exam: PRESENT: dry, intact, warm. ABSENT: cyanosis, rash Results Laboratory Results: 08/16/16 06:25 08/16/16 06:25 08/16/16 08/16/16 06:25 06:25 WBC 6.0 RBC 1.89 L Hgb 6.9 L Hct 19.2 L MCV 102 H MCH 36.3 H MCHC 35.7 RDW 25.9 H Plt Count 249 Seg Neutrophils % Not Reportable Lymphocytes % Not Reportable Monocytes % Not Reportable Eosinophils % Not Reportable Basophils % Not Reportable Absolute Neutrophils Not Reportable Absolute Lymphocytes Not Reportable Absolute Monocytes Not Reportable Absolute Eosinophils Not Reportable Absolute Basophils Not Reportable Sodium 138.7 Potassium 3.7 Chloride 106 Carbon Dioxide 24 Anion Gap 9 BUN 3 L Creatinine 0.43 L Est GFR ( Amer) > 60 Est GFR (Non-Af Amer) > 60 Glucose 73 L Calcium 8.5 Assessment & Plan - Diagnosis (1) Sickle-cell disease with pain Is this a current diagnosis for this admission?: YesPlan: Management as per hematology. The patient is to be transfused today. (2) Dyspnea Qualifiers: Dyspnea type: dyspnea on exertion Qualified Code(s): R06.09 - Other forms of dyspnea Is this a current diagnosis for this admission?: YesPlan: Asymptomatic at this time. (3) Opiate dependence, continuous Is this a current diagnosis for this admission?: YesPlan: Management as per hematology (4) Cardiac dysrhythmia Qualifiers: Arrhythmia type: ventricular tachycardia Qualified Code(s): I47.2 - Ventricular tachycardia Is this a current diagnosis for this admission?: No (5) Constipation Qualifiers: Constipation type: drug induced constipation Qualified Code(s): K59.03 - Drug induced constipation Is this a current diagnosis for this admission?: YesPlan: Will continue marrow lacks (6) DVT prophylaxis Is this a current diagnosis for this admission?: Yes (7) Deep venous thrombosis of right upper limb Qualifiers: Affected thrombotic vein of extremity: axillary Chronicity: unspecified Qualified Code(s): I82.A11 - Acute embolism and thrombosis of right axillary vein Is this a current diagnosis for this admission?: No (8) Hypertension Qualifiers: Hypertension type: essential hypertension Qualified Code(s): I10 - Essential (primary) hypertension Is this a current diagnosis for this admission?: YesPlan: Will continue home medications. (9) Major depression Qualifiers: Major depression recurrence: recurrent Major depression episode severity: moderate Is this a current diagnosis for this admission?: YesPlan: Will continue home medications. - Time Time Spent with patient: Less than 15 minutes Medications reviewed and adjusted accordingly: Yes Anticipated discharge: Home Within: Other
[2016-08-16] MEDS: RIVAROXABAN 15 MG TABLET PO SCH (10:31)
[2016-08-16] MEDS: CETIRIZINE 10 MG TABLET PO SCH (10:33)
[2016-08-16] MEDS: DOCUSATE SODIUM 100 MG CAPSULE PO SCH ×2 (10:33→17:53)
[2016-08-16] MEDS: IPRATROPIUM/ALBUTEROL 0.5-2.5 MG/3 ML AMPUL NEB PRN (10:56)
[2016-08-16] MEDS ORDERED: FLUTICASONE NASAL SPRAY 50 MCG/SPRY 120 SPRAY/16 GM NASL ONE (11:00)
[2016-08-16] MEDS ORDERED: AMLODIPINE BESYLATE 5 MG TABLET PO ONE (11:00)
[2016-08-16] MEDS ORDERED: FOLIC ACID 1 MG TABLET PO ONE (11:00)
[2016-08-16] MEDS: POLYETHYLENE GLYCOL 3350 POWDER 17 GM/1 PACKET PO SCH (11:59)
[2016-08-16] MEDS: PROMETHAZINE HCL 25 MG TABLET PO SCH ×2 (11:59→18:08)
--- NOTE | 2016-08-16 13:23 | EKG REPORT ---
SEVERITY:- ABNORMAL ECG - SINUS TACHYCARDIA NONSPECIFIC T ABNORMALITIES, LATERAL LEADS BORDERLINE PROLONGED QT INTERVAL : Confirmed by: Samir Harrison MD 16-Aug-2016 13:23:16
--- NOTE | 2016-08-16 15:26 | Physician Advisory Note ---
Physician Advisor ProgressNote .: [facility], I have reviewed the medical record for this patient. Physician Advisor Statement: This is a combination note of status determination done 08/14/16 (late documentation) & Blue Notes review today. Possible documentation opportunities if attending agrees: 1. "suspected protein-calorie malnutrition [state mild, mod, or severe] with BMI 24.2, ____[?wt loss, ?appetite loss, ]" [if possible, give specifics on intake, wt loss, loss of SQ fat & muscle mass, diminished hand manager technology strength, & clinical importance such as (A) nutritional assessment ordered, (B) modified diet or supplements ordered, (C) additional labs ordered, (D) prolonged wound healing time, (E) delayed infxn clearance] - - - Auditors are strict about the dx of malnutrition - has to be explicitly spelled out. Discussion: 26yo female w/ chronic co-morbidities including HTN, sickle cell dz w/recurrent adms, migraines, GERD, MRSA in past, chronic pain, opioid dependence already taking Dilaudid 8mg q8h prn at home, multiple IV lines including 2 ports with removal, & multiple PICC lines & central lines - presented 2/6 PM to ED w/back & leg pain, concerning for sickle cell crisis. In ED, she was given Dilaudid 2mg x 3, & NS wide open x2L, + Zofran & Benadryl , but she continued to c/o intolerable pain. Admitting attending documented "unusual affect", "anxious, manic, euphoric, flight of ideas". Oncologist documented he had been giving her IVF outpt x 2wks, with po Dilaudid, & pain had become worse in spite of this & she needed adm. Hgb "has been stable in the 9 range." (+) fatigue, weakness, CP, SOB, back pain, pruritis, dep (+) T98.4, HR88, RR16, BP 116/50, Hgb 9.5, BUN 6, Cr 0.55, UDS + for opiates & THC. Attending ordered onc consult, NS x3L at 250, PRN Zofran & BM regimen, f/u labs , O2 2L. Onc then ordered Dilaudid 3mg IV q2h scheduled, + Phenergan, Atarax for itching, K pad for comfort, documented ongoing need for IVF & pain control. Status: THis is a complex pt with opiate dependency but also sickle cell crisis, with tremendous/extreme opiate tolerance. Oncologist documented failure of outpt tx , & ended up ordering Dilaudid 3mg at 10:30 & then 3mg q2h scheduled as of 13: 00 on 08/14. Certainly this is a dose that could easily lead to oversedation, respiratory depression, & even in the wrong pt/situation, & requires extremely close monitoring in hospital to prevent harm to pt, even as it appeared necessary for adequate pain control in this situation. Tx in inpatient hospital setting medically reasonable & necessary to protect pt' s health, safety, & medical condition. Appropriate for Inpt admission. Since that time, Hgb drop to 6.9 is consistent with acute sickle crisis, & Dilaudid dose has been increased to 4mg q2h on 28 AM, then 5mg q2h! Thanks for your help with documentation accuracy/specificity improvement! Juliet Gusman MD [facility] Physician Advisor, Fellow of Hospital Medicine
[2016-08-16] MEDS ORDERED: AMITRIPTYLINE HCL 25 MG TABLET PO SCH (18:00)
[2016-08-16] MEDS: AMITRIPTYLINE HCL 50 MG TABLET PO SCH (18:04)
[2016-08-16] MEDS: HYDROXYUREA 500 MG CAPSULE PO SCH (23:06)
[2016-08-16] MEDS: MONTELUKAST SODIUM 10 MG TABLET PO SCH (23:07)
[2016-08-16] MEDS: FLUTICASONE NASAL SPRAY 50 MCG/SPRY 120 SPRAY/16 GM NASL SCH (23:07)
[2016-08-17] MEDS: HYDROMORPHONE HCL INJ/PF 2 MG/ML AMPULE IV SCH ×11 (01:15→21:16)
[2016-08-17] MEDS: PROMETHAZINE HCL 25 MG TABLET PO SCH ×4 (01:15→18:42)
[2016-08-17] MEDS: PROMETHAZINE HCL INJ 25 MG/1 ML VIAL IV PRN (02:15)
[2016-08-17 06:41] LABS: ABSOLUTE BASOPHILS # (AUTO) 0.1 10^3/uL (0.0-0.2); ABSOLUTE EOSINOPHILS # (AUTO) 0.1 10^3/uL (0.0-0.6); ABSOLUTE MONOCYTES (AUTO) 0.5 10^3/uL (0.1-1.4); ABSOLUTE NEUT (AUTO) 2.8 10^3/uL (1.7-8.2); EOSINOPHILS % (AUTO) 2.1 % (0-6); MEAN CORPUSCULAR HEMOGLOBIN 33.3 pg (27.0-33.4); MEAN CORPUSCULAR HGB CONC 34.7 g/dL (32.0-36.0); MONOCYTES % (AUTO) 9.6 % (3-13); RED CELL DISTRIBUTION WIDTH 23.5 % (11.5-14.0); SEGMENTED NEUTROPHILS % (AUTO) 51.3 % (42-78); WHITE BLOOD COUNT 5.5 10^3/uL (4.0-10.5)
[2016-08-17 06:48] LABS: ANION GAP 7 (5-19); CARBON DIOXIDE 23 mmol/L (22-30); CHLORIDE 112 mmol/L (98-107); GLUCOSE 88 mg/dL (75-110); SODIUM 141.8 mmol/L (137-145)
[2016-08-17 06:51] LABS: BLOOD UREA NITROGEN < 2 mg/dL (7-20)
[2016-08-17 06:57] LABS: MEAN CORPUSCULAR VOLUME 96 fl (80-97)
[2016-08-17 07:01] LABS: CALCIUM 6.5 mg/dL (8.4-10.2); POTASSIUM 2.9 mmol/L (3.6-5.0)
--- NOTE | 2016-08-17 08:02 | PDOC PROGRESS REPORT ---
Subjective Progress Note for:: 08/17/16 Subjective:: Still in considerable pain, still w/ overall body pain, no BM yet Physical Exam Vital Signs: Temp Pulse Resp BP Pulse Ox 98.3 F 95 18 119/63 92 08/16/16 21:20 08/16/16 21:20 08/16/16 21:20 08/16/16 21:20 08/16/16 21:20 Intake & Output 08/16/16 08/17/16 08/18/16 06:59 06:59 06:59 Intake Total 800 1626 Output Total 1200 1250 Balance -400 376 General appearance: PRESENT: no acute distress, well-developed, well-nourished Head exam: PRESENT: atraumatic, normocephalic Eye exam: PRESENT: conjunctiva pink, EOMI, PERRLA. ABSENT: scleral icterus Ear exam: PRESENT: normal external ear exam Mouth exam: PRESENT: moist, tongue midline Neck exam: ABSENT: carotid bruit, JVD, lymphadenopathy, thyromegaly Respiratory exam: PRESENT: clear to auscultation william. ABSENT: rales, rhonchi, wheezes Cardiovascular exam: PRESENT: RRR. ABSENT: diastolic murmur, rubs, systolic murmur Pulses: PRESENT: normal dorsalis pedis pul Vascular exam: PRESENT: normal capillary refill GI/Abdominal exam: PRESENT: normal bowel sounds, soft. ABSENT: distended, guarding, mass, organolmegaly, rebound, tenderness Rectal exam: PRESENT: deferred Extremities exam: PRESENT: full ROM. ABSENT: calf tenderness, clubbing, pedal edema Neurological exam: PRESENT: alert, awake, oriented to person, oriented to place , oriented to time, oriented to situation, CN II-XII grossly intact. ABSENT: motor sensory deficit Psychiatric exam: PRESENT: appropriate affect, normal mood. ABSENT: homicidal ideation, suicidal ideation Skin exam: PRESENT: dry, intact, warm. ABSENT: cyanosis, rash Results Laboratory Results: 08/17/16 06:10 08/17/16 06:10 08/16/16 08/16/16 08/16/16 06:25 06:25 10:33 WBC 6.0 RBC 1.89 L Hgb 6.9 L Hct 19.2 L MCV 102 H MCH 36.3 H MCHC 35.7 RDW 25.9 H Plt Count 249 Seg Neutrophils % Not Reportable Lymphocytes % Not Reportable Monocytes % Not Reportable Eosinophils % Not Reportable Basophils % Not Reportable Absolute Neutrophils Not Reportable Absolute Lymphocytes Not Reportable Absolute Monocytes Not Reportable Absolute Eosinophils Not Reportable Absolute Basophils Not Reportable Sodium 138.7 Potassium 3.7 Chloride 106 Carbon Dioxide 24 Anion Gap 9 BUN 3 L Creatinine 0.43 L Est GFR ( Amer) > 60 Est GFR (Non-Af Amer) > 60 Glucose 73 L Calcium 8.5 Blood Type O POSITIVE Antibody Screen NEGATIVE 08/17/16 08/17/16 06:10 06:10 WBC 5.5 RBC 2.40 L Hgb 8.0 L Hct 23.0 L MCV 96 D MCH 33.3 MCHC 34.7 RDW 23.5 H Plt Count 208 Seg Neutrophils % 51.3 Lymphocytes % 36.0 Monocytes % 9.6 Eosinophils % 2.1 Basophils % 1.0 Absolute Neutrophils 2.8 Absolute Lymphocytes 2.0 Absolute Monocytes 0.5 Absolute Eosinophils 0.1 Absolute Basophils 0.1 Sodium 141.8 Potassium 2.9 L* Chloride 112 H Carbon Dioxide 23 Anion Gap 7 BUN < 2 L Creatinine 0.40 L Est GFR ( Amer) > 60 Est GFR (Non-Af Amer) > 60 Glucose 88 Calcium 6.5 L* Blood Type Antibody Screen Impressions: Guidance Fluoroscopy 08/16/16 00:00 IMPRESSION: SUCCESSFUL PLACEMENT OF A 5 FR DUAL LUMEN 37 CM PICC IN THE left basilic VEIN. Interventional Vascular Procedure 08/16/16 00:00 IMPRESSION: SUCCESSFUL PLACEMENT OF A 5 FR DUAL LUMEN 37 CM PICC IN THE left basilic VEIN. PICC Line Insertion 08/16/16 00:00 IMPRESSION: SUCCESSFUL PLACEMENT OF A 5 FR DUAL LUMEN 37 CM PICC IN THE left basilic VEIN. Assessment & Plan - Diagnosis (1) Sickle cell crisis Is this a current diagnosis for this admission?: YesPlan: Still severe, increase dilaudid to 6mg q 2 hours RTC, add ambien 5mg HS, give enema for BM (2) Sickle cell anemia Qualifiers: Sickle-cell associated disorders: with unspecified crisis Qualified Code(s): D57.00 - Hb-SS disease with crisis, unspecified; D57.0 - Hb-SS disease with crisis Is this a current diagnosis for this admission?: YesPlan: Anemia better post tx, did not improve as much as in past, probably b/c crisis slightly worse this time, watch for now, tx only if hb <7, will try to be conservative for rest of admit. - Time Time Spent with patient: 25-34 minutes Critical Time spent with patient: 25-34 minutes - Inpatient Certification Based on my medical assessment, after consideration of the patient's comorbidities, presenting symptoms, or acuity I expect that the services needed warrant INPATIENT care.: Yes I certify that my determination is in accordance with my understanding of Medicare's requirements for reasonable and necessary INPATIENT services [42 CFR 412.3e].: Yes Medical Necessity: Need For IV Fluids, Need for Pain Control
[2016-08-17] MEDS ORDERED: NA PHOS,M-B/NA PHOS,DI-BA (ADULT) 133 ML ENEMA PR ONE (09:00)
[2016-08-17] MEDS: FLUTICASONE NASAL SPRAY 50 MCG/SPRY 120 SPRAY/16 GM NASL SCH ×2 (09:32→21:19)
[2016-08-17] MEDS: RIVAROXABAN 15 MG TABLET PO SCH (09:33)
[2016-08-17] MEDS: AMLODIPINE BESYLATE 5 MG TABLET PO SCH (09:33)
[2016-08-17] MEDS: DOCUSATE SODIUM 100 MG CAPSULE PO SCH ×2 (09:35→18:43)
[2016-08-17] MEDS: FOLIC ACID 1 MG TABLET PO SCH (09:36)
[2016-08-17] MEDS: CETIRIZINE 10 MG TABLET PO SCH (12:19)
[2016-08-17] MEDS: NORMAL SALINE 1000 ML 1,000 ML IV PRN ×2 (12:21→20:29)
[2016-08-17] MEDS: POLYETHYLENE GLYCOL 3350 POWDER 17 GM/1 PACKET PO SCH (12:21)
--- NOTE | 2016-08-17 15:43 | PDOC PROGRESS REPORT ---
Subjective Progress Note for:: 08/17/16 Subjective:: The patient had a PICC line placed yesterday. The patient denies any nausea, vomiting, but does admit to constipation. Pain management as per hematology. Sinus congestion has appeared to improved. ea. Physical Exam Vital Signs: Temp Pulse Resp BP Pulse Ox 98.7 F 82 17 129/74 H 100 08/17/16 08:18 08/17/16 13:31 08/17/16 13:31 08/17/16 08:18 08/17/16 13:31 Intake & Output 08/15/16 08/16/16 08/17/16 23:59 23:59 23:59 Intake Total 1730 660 966 Output Total 2500 1250 Balance -770 660 -284 General appearance: PRESENT: no acute distress, cooperative, well-developed, well-nourished Head exam: PRESENT: atraumatic, normocephalic Eye exam: PRESENT: conjunctiva pink, EOMI, PERRLA. ABSENT: scleral icterus Ear exam: PRESENT: normal external ear exam Mouth exam: PRESENT: moist, tongue midline Neck exam: ABSENT: carotid bruit, JVD, lymphadenopathy, thyromegaly Respiratory exam: PRESENT: clear to auscultation william, symmetrical, unlabored. ABSENT: rales, rhonchi, tachypnea, wheezes Cardiovascular exam: PRESENT: RRR. ABSENT: diastolic murmur, rubs, systolic murmur Pulses: PRESENT: normal dorsalis pedis pul Vascular exam: PRESENT: normal capillary refill GI/Abdominal exam: PRESENT: normal bowel sounds, soft. ABSENT: distended, guarding, mass, organolmegaly, rebound, tenderness Rectal exam: PRESENT: deferred Extremities exam: PRESENT: full ROM. ABSENT: calf tenderness, clubbing, pedal edema Neurological exam: PRESENT: alert, awake, oriented to person, oriented to place , oriented to time, oriented to situation, CN II-XII grossly intact. ABSENT: motor sensory deficit Psychiatric exam: PRESENT: Groggy, normal mood. ABSENT: homicidal ideation, suicidal ideation Skin exam: PRESENT: dry, intact, warm. ABSENT: cyanosis, rash Results Laboratory Results: 08/17/16 06:10 08/17/16 06:10 08/16/16 08/17/16 08/17/16 10:33 06:10 06:10 WBC 5.5 RBC 2.40 L Hgb 8.0 L Hct 23.0 L MCV 96 D MCH 33.3 MCHC 34.7 RDW 23.5 H Plt Count 208 Seg Neutrophils % 51.3 Lymphocytes % 36.0 Monocytes % 9.6 Eosinophils % 2.1 Basophils % 1.0 Absolute Neutrophils 2.8 Absolute Lymphocytes 2.0 Absolute Monocytes 0.5 Absolute Eosinophils 0.1 Absolute Basophils 0.1 Sodium 141.8 Potassium 2.9 L* Chloride 112 H Carbon Dioxide 23 Anion Gap 7 BUN < 2 L Creatinine 0.40 L Est GFR ( Amer) > 60 Est GFR (Non-Af Amer) > 60 Glucose 88 Calcium 6.5 L* Blood Type O POSITIVE Antibody Screen NEGATIVE Impressions: Guidance Fluoroscopy 08/16/16 00:00 IMPRESSION: SUCCESSFUL PLACEMENT OF A 5 FR DUAL LUMEN 37 CM PICC IN THE left basilic VEIN. Interventional Vascular Procedure 08/16/16 00:00 IMPRESSION: SUCCESSFUL PLACEMENT OF A 5 FR DUAL LUMEN 37 CM PICC IN THE left basilic VEIN. PICC Line Insertion 08/16/16 00:00 IMPRESSION: SUCCESSFUL PLACEMENT OF A 5 FR DUAL LUMEN 37 CM PICC IN THE left basilic VEIN. Assessment & Plan - Diagnosis (1) Sickle-cell disease with pain Is this a current diagnosis for this admission?: YesPlan: Management as per hematology (2) Dyspnea Qualifiers: Dyspnea type: dyspnea on exertion Qualified Code(s): R06.09 - Other forms of dyspnea Is this a current diagnosis for this admission?: YesPlan: Asymptomatic at this time. (3) Opiate dependence, continuous Is this a current diagnosis for this admission?: YesPlan: Management as per hematology (4) Cardiac dysrhythmia Qualifiers: Arrhythmia type: ventricular tachycardia Qualified Code(s): I47.2 - Ventricular tachycardia Is this a current diagnosis for this admission?: No (5) Constipation Qualifiers: Constipation type: drug induced constipation Qualified Code(s): K59.03 - Drug induced constipation Is this a current diagnosis for this admission?: YesPlan: Give when necessary enema continue Bo asked (6) DVT prophylaxis Is this a current diagnosis for this admission?: YesPlan: The patient is on Xarelto (7) Deep venous thrombosis of right upper limb Qualifiers: Affected thrombotic vein of extremity: axillary Chronicity: unspecified Qualified Code(s): I82.A11 - Acute embolism and thrombosis of right axillary vein Is this a current diagnosis for this admission?: No (8) Hypertension Qualifiers: Hypertension type: essential hypertension Qualified Code(s): I10 - Essential (primary) hypertension Is this a current diagnosis for this admission?: YesPlan: Will continue home medications. (9) Major depression Qualifiers: Major depression recurrence: recurrent Major depression episode severity: moderate Is this a current diagnosis for this admission?: YesPlan: Will continue home medications. - Time Time Spent with patient: 25-34 minutes Medications reviewed and adjusted accordingly: Yes Anticipated discharge: Home
[2016-08-17] MEDS: AMITRIPTYLINE HCL 50 MG TABLET PO SCH (18:43)
[2016-08-17] MEDS: HYDROXYUREA 500 MG CAPSULE PO SCH (21:18)
[2016-08-17] MEDS: ZOLPIDEM TARTRATE 5 MG TABLET PO SCH (21:18)
[2016-08-17] MEDS: MONTELUKAST SODIUM 10 MG TABLET PO SCH (21:30)
[2016-08-17] MEDS: HYDROXYZINE PAMOATE 50 MG CAPSULE PO PRN (21:52)
[2016-08-18] MEDS: HYDROMORPHONE HCL INJ/PF 2 MG/ML AMPULE IV SCH ×11 (01:56→23:08)
[2016-08-18] MEDS: PROMETHAZINE HCL 25 MG TABLET PO SCH ×5 (01:56→23:21)
[2016-08-18] MEDS: NORMAL SALINE 1000 ML 1,000 ML IV PRN ×2 (04:48→20:36)
[2016-08-18] MEDS ORDERED: POTASSI CL 20 MEQ/50 ML RIDER 50 ML IV SCH ×2 (09:30→11:30)
[2016-08-18 09:57] LABS: HEMATOCRIT 25.2 % (36.0-47.0); HEMOGLOBIN 8.9 g/dL (12.0-15.5); HGB HCT DIFFERENCE 1.5; MEAN CORPUSCULAR HEMOGLOBIN 34.1 pg (27.0-33.4); MEAN CORPUSCULAR HGB CONC 35.5 g/dL (32.0-36.0); MEAN CORPUSCULAR VOLUME 96 fl (80-97); RED BLOOD COUNT 2.62 10^6/uL (3.72-5.28); RED CELL DISTRIBUTION WIDTH 23.3 % (11.5-14.0); WHITE BLOOD COUNT 6.6 10^3/uL (4.0-10.5)
[2016-08-18 10:09] LABS: ALBUMIN 3.5 g/dL (3.5-5.0); ANION GAP 9 (5-19); CARBON DIOXIDE 25 mmol/L (22-30); CHLORIDE 107 mmol/L (98-107); CREATININE RESULT 0.39 mg/dL (0.52-1.25); GLUCOSE 102 mg/dL (75-110); POTASSIUM 3.3 mmol/L (3.6-5.0); SODIUM 140.6 mmol/L (137-145)
[2016-08-18 10:11] LABS: BLOOD UREA NITROGEN < 2 mg/dL (7-20)
[2016-08-18] MEDS: DOCUSATE SODIUM 100 MG CAPSULE PO SCH ×2 (10:27→17:53)
[2016-08-18] MEDS: AMLODIPINE BESYLATE 5 MG TABLET PO SCH (10:27)
[2016-08-18] MEDS: FOLIC ACID 1 MG TABLET PO SCH (10:30)
[2016-08-18] MEDS: CETIRIZINE 10 MG TABLET PO SCH (10:31)
[2016-08-18] MEDS: POLYETHYLENE GLYCOL 3350 POWDER 17 GM/1 PACKET PO SCH (10:31)
[2016-08-18] MEDS: RIVAROXABAN 15 MG TABLET PO SCH (10:31)
[2016-08-18] MEDS: FLUTICASONE NASAL SPRAY 50 MCG/SPRY 120 SPRAY/16 GM NASL SCH ×2 (10:42→23:07)
--- NOTE | 2016-08-18 14:01 | PDOC PROGRESS REPORT ---
Subjective Progress Note for:: 08/18/16 Subjective:: The patient had a PICC line placed yesterday. The patient denies any nausea, vomiting, but does admit to constipation. Pain management as per hematology. Sinus congestion has appeared to improved. Physical Exam Vital Signs: Temp Pulse Resp BP Pulse Ox 98.6 F 83 16 121/67 100 08/18/16 04:11 08/18/16 04:11 08/18/16 04:11 08/18/16 04:11 08/18/16 04:11 Intake & Output 08/16/16 08/17/16 08/18/16 23:59 23:59 23:59 Intake Total 660 2836 1438 Output Total 4150 Balance 660 -1314 1438 General appearance: PRESENT: no acute distress, cooperative, well-developed, well-nourished Head exam: PRESENT: atraumatic, normocephalic Eye exam: PRESENT: conjunctiva pink, EOMI, PERRLA. ABSENT: scleral icterus Ear exam: PRESENT: normal external ear exam Mouth exam: PRESENT: moist, tongue midline Neck exam: ABSENT: carotid bruit, JVD, lymphadenopathy, thyromegaly Respiratory exam: PRESENT: clear to auscultation william, symmetrical, unlabored. ABSENT: rales, rhonchi, tachypnea, wheezes Cardiovascular exam: PRESENT: RRR. ABSENT: diastolic murmur, rubs, systolic murmur Pulses: PRESENT: normal dorsalis pedis pul Vascular exam: PRESENT: normal capillary refill GI/Abdominal exam: PRESENT: normal bowel sounds, soft. ABSENT: distended, guarding, mass, organolmegaly, rebound, tenderness Rectal exam: PRESENT: deferred Extremities exam: PRESENT: full ROM. ABSENT: calf tenderness, clubbing, pedal edema Neurological exam: PRESENT: alert, awake, oriented to person, oriented to place , oriented to time, oriented to situation, CN II-XII grossly intact. ABSENT: motor sensory deficit Psychiatric exam: PRESENT: Groggy, normal mood. ABSENT: homicidal ideation, suicidal ideation Skin exam: PRESENT: dry, intact, warm. ABSENT: cyanosis, rash Results Laboratory Results: Labs- Last Values WBC 6.6 10^3/uL (4.0-10.5) 08/18/16 09:25 RBC 2.62 10^6/uL (3.72-5.28) L 08/18/16 09:25 Hgb 8.9 g/dL (12.0-15.5) L 08/18/16 09:25 Hct 25.2 % (36.0-47.0) L 08/18/16 09:25 MCV 96 fl (80-97) 08/18/16 09:25 MCH 34.1 pg (27.0-33.4) H 08/18/16 09:25 MCHC 35.5 g/dL (32.0-36.0) 08/18/16 09:25 RDW 23.3 % (11.5-14.0) H 08/18/16 09:25 Plt Count 220 10^3/uL (150-450) 08/18/16 09:25 Total Counted 100 08/16/16 06:25 Seg Neutrophils % 51.3 % (42-78) 08/17/16 06:10 Seg Neuts % (Manual) 54 % (42-78) 08/16/16 06:25 Band Neutrophils % 1 % (3-5) L 08/16/16 06:25 Lymphocytes % 36.0 % (13-45) 08/17/16 06:10 Lymphocytes % (Manual) 39 % (13-45) 08/16/16 06:25 Atypical Lymphs % 1 % (0) 08/13/16 17:25 Monocytes % 9.6 % (3-13) 08/17/16 06:10 Monocytes % (Manual) 5 % (3-13) 08/16/16 06:25 Eosinophils % 2.1 % (0-6) 08/17/16 06:10 Eosinophils % (Manual) 1 % (0-6) 08/16/16 06:25 Basophils % 1.0 % (0-2) 08/17/16 06:10 Basophils % (Manual) 0 % (0-2) 08/16/16 06:25 Absolute Neutrophils 2.8 10^3/uL (1.7-8.2) 08/17/16 06:10 Abs Neuts (Manual) 3.3 10^3/uL (1.7-8.2) 08/16/16 06:25 Absolute Lymphocytes 2.0 10^3/uL (0.5-4.7) 08/17/16 06:10 Abs Lymphs (Manual) 2.3 10^3/uL (0.5-4.7) 08/16/16 06:25 Absolute Monocytes 0.5 10^3/uL (0.1-1.4) 08/17/16 06:10 Abs Monocytes (Manual) 0.3 10^3/uL (0.1-1.4) 08/16/16 06:25 Absolute Eosinophils 0.1 10^3/uL (0.0-0.6) 08/17/16 06:10 Absolute Eos (Manual) 0.1 10^3/uL (0.0-0.6) 08/16/16 06:25 Absolute Basophils 0.1 10^3/uL (0.0-0.2) 08/17/16 06:10 Abs Basophils (Manual) 0.0 10^3/uL (0.0-0.2) 08/16/16 06:25 Nucleated RBCs 1 /100 WBC (0) 08/16/16 06:25 Platelet Comment ADEQUATE 08/16/16 06:25 Polychromasia 2+ 08/15/16 06:22 Hypochromasia 1+ 08/16/16 06:25 Poikilocytosis 3+ 08/16/16 06:25 Anisocytosis 3+ 08/16/16 06:25 Macrocytosis 2+ 08/16/16 06:25 Pappenheimer Bodies PRESENT 08/16/16 06:25 Sickle Cells 1+ 08/16/16 06:25 Target Cells 1+ 08/15/16 06:22 Ovalocytes 2+ 08/16/16 06:25 [place] Bodies PRESENT 08/16/16 06:25 Schistocytes 1+ 08/15/16 06:22 RBC Morph Comment 08/16/16 06:25 Retic Count (auto) 2.30 % (0.66-2.85) 08/13/16 17:25 Absolute Retic 0.061 10^6/uL (0.028-0.122) 08/13/16 17:25 Sodium 140.6 mmol/L (137-145) 08/18/16 09:25 Potassium 3.3 mmol/L (3.6-5.0) L 08/18/16 09:25 Chloride 107 mmol/L (98-107) 08/18/16 09:25 Carbon Dioxide 25 mmol/L (22-30) 08/18/16 09:25 Anion Gap 9 (5-19) 08/18/16 09:25 BUN < 2 mg/dL (7-20) L 08/18/16 09:25 Creatinine 0.39 mg/dL (0.52-1.25) L 08/18/16 09:25 Est GFR ( Amer) > 60 (>60) 08/18/16 09:25 Est GFR (Non-Af Amer) > 60 (>60) 08/18/16 09:25 Glucose 102 mg/dL (75-110) 08/18/16 09:25 Calcium 8.0 mg/dL (8.4-10.2) L 08/18/16 09:25 Total Bilirubin 1.3 mg/dL (0.2-1.3) 08/13/16 17:25 Direct Bilirubin 0.0 mg/dL (0.0-0.3) 08/13/16 17:25 AST 26 U/L (14-36) 08/13/16 17:25 ALT 24 U/L (9-52) 08/13/16 17:25 Alkaline Phosphatase 67 U/L (38-126) 08/13/16 17:25 Total Protein 8.1 g/dL (6.3-8.2) 08/13/16 17:25 Albumin 3.5 g/dL (3.5-5.0) 08/18/16 09:25 Serum HCG, Qual NEGATIVE (NEGATIVE) 08/13/16 17:25 Urine Color YELLOW 08/14/16 09:14 Urine Appearance CLEAR 08/14/16 09:14 Urine pH 6.0 (5.0-9.0) 08/14/16 09:14 Ur Specific [place] 1.008 08/14/16 09:14 Urine Protein NEGATIVE mg/dL (NEGATIVE) 08/14/16 09:14 Urine Glucose (UA) NEGATIVE mg/dL (NEGATIVE) 08/14/16 09:14 Urine Ketones NEGATIVE mg/dL (NEGATIVE) 08/14/16 09:14 Urine Blood NEGATIVE (NEGATIVE) 08/14/16 09:14 Urine Nitrite NEGATIVE (NEGATIVE) 08/14/16 09:14 Urine Bilirubin NEGATIVE (NEGATIVE) 08/14/16 09:14 Urine Urobilinogen NEGATIVE mg/dL (<2.0) 08/14/16 09:14 Ur Leukocyte Esterase NEGATIVE (NEGATIVE) 08/14/16 09:14 Urine WBC (Auto) 1 /HPF 08/14/16 09:14 Urine RBC (Auto) 0 /HPF 08/14/16 09:14 Squamous Epi Cells Auto 3 /HPF 08/14/16 09:14 Urine Mucus (Auto) RARE /LPF 08/14/16 09:14 Urine Ascorbic Acid NEGATIVE (NEGATIVE) 08/14/16 09:14 Urine Opiates Screen UNCONFIRMED POSITIVE 08/14/16 09:14 Urine Methadone Screen NEGATIVE 08/14/16 09:14 Ur Barbiturates Screen NEGATIVE 08/14/16 09:14 Ur Phencyclidine Scrn NEGATIVE 08/14/16 09:14 Ur Amphetamines Screen NEGATIVE 08/14/16 09:14 U Benzodiazepines Scrn NEGATIVE 08/14/16 09:14 Urine Cocaine Screen NEGATIVE 08/14/16 09:14 U Marijuana (THC) Screen UNCONFIRMED POSITIVE 08/14/16 09:14 Blood Type O POSITIVE 08/16/16 10:33 Antibody Screen NEGATIVE 08/16/16 10:33 Crossmatch See Detail 08/16/16 10:33 Impressions: Guidance Fluoroscopy 08/16/16 00:00 IMPRESSION: SUCCESSFUL PLACEMENT OF A 5 FR DUAL LUMEN 37 CM PICC IN THE left basilic VEIN. Interventional Vascular Procedure 08/16/16 00:00 IMPRESSION: SUCCESSFUL PLACEMENT OF A 5 FR DUAL LUMEN 37 CM PICC IN THE left basilic VEIN. PICC Line Insertion 08/16/16 00:00 IMPRESSION: SUCCESSFUL PLACEMENT OF A 5 FR DUAL LUMEN 37 CM PICC IN THE left basilic VEIN. Assessment & Plan - Diagnosis (1) Sickle-cell disease with pain Is this a current diagnosis for this admission?: YesPlan: Management as per hematology (2) Dyspnea Qualifiers: Dyspnea type: dyspnea on exertion Qualified Code(s): R06.09 - Other forms of dyspnea Is this a current diagnosis for this admission?: YesPlan: Asymptomatic at this time. (3) Opiate dependence, continuous Is this a current diagnosis for this admission?: YesPlan: Management as per hematology (4) Cardiac dysrhythmia Qualifiers: Arrhythmia type: ventricular tachycardia Qualified Code(s): I47.2 - Ventricular tachycardia Is this a current diagnosis for this admission?: No (5) Constipation Qualifiers: Constipation type: drug induced constipation Qualified Code(s): K59.03 - Drug induced constipation Is this a current diagnosis for this admission?: YesPlan: Give when necessary enema continue Bo asked (6) DVT prophylaxis Is this a current diagnosis for this admission?: YesPlan: The patient is on Xarelto (7) Deep venous thrombosis of right upper limb Qualifiers: Affected thrombotic vein of extremity: axillary Chronicity: unspecified Qualified Code(s): I82.A11 - Acute embolism and thrombosis of right axillary vein Is this a current diagnosis for this admission?: No (8) Hypertension Qualifiers: Hypertension type: essential hypertension Qualified Code(s): I10 - Essential (primary) hypertension Is this a current diagnosis for this admission?: YesPlan: Will continue home medications. (9) Major depression Qualifiers: Major depression recurrence: recurrent Major depression episode severity: moderate Is this a current diagnosis for this admission?: YesPlan: Will continue home medications. (10) Hypokalemia Is this a current diagnosis for this admission?: YesPlan: This is been repleted - Time Time Spent with patient: 25-34 minutes Medications reviewed and adjusted accordingly: Yes Anticipated discharge: Home
[2016-08-18] MEDS: MINERAL OIL ENEMA 133 ML PR PRN (15:06)
[2016-08-18] MEDS: AMITRIPTYLINE HCL 50 MG TABLET PO SCH (17:52)
[2016-08-18] MEDS: HYDROXYZINE PAMOATE 50 MG CAPSULE PO PRN (20:36)
[2016-08-18] MEDS: HYDROXYUREA 500 MG CAPSULE PO SCH (23:09)
[2016-08-18] MEDS: MONTELUKAST SODIUM 10 MG TABLET PO SCH (23:09)
[2016-08-18] MEDS: ZOLPIDEM TARTRATE 5 MG TABLET PO SCH (23:10)
[2016-08-19] MEDS: HYDROMORPHONE HCL INJ/PF 2 MG/ML AMPULE IV SCH ×12 (00:24→22:31)
[2016-08-19] MEDS: PROMETHAZINE HCL 25 MG TABLET PO SCH ×3 (06:20→17:57)
[2016-08-19] MEDS: NORMAL SALINE 1000 ML 1,000 ML IV PRN ×2 (06:20→13:49)
[2016-08-19 06:54] LABS: ANION GAP 7 (5-19); CALCIUM 7.9 mg/dL (8.4-10.2); CARBON DIOXIDE 27 mmol/L (22-30); CHLORIDE 108 mmol/L (98-107); CREATININE RESULT 0.47 mg/dL (0.52-1.25); GLUCOSE 107 mg/dL (75-110); POTASSIUM 3.1 mmol/L (3.6-5.0)
[2016-08-19 07:01] LABS: BLOOD UREA NITROGEN < 2 mg/dL (7-20)
[2016-08-19] MEDS: DOCUSATE SODIUM 100 MG CAPSULE PO SCH ×2 (09:16→17:57)
[2016-08-19] MEDS: AMLODIPINE BESYLATE 5 MG TABLET PO SCH (09:17)
[2016-08-19] MEDS: FOLIC ACID 1 MG TABLET PO SCH (09:17)
[2016-08-19] MEDS: RIVAROXABAN 15 MG TABLET PO SCH (09:21)
[2016-08-19] MEDS: FLUTICASONE NASAL SPRAY 50 MCG/SPRY 120 SPRAY/16 GM NASL SCH ×2 (09:21→22:31)
[2016-08-19] MEDS: MINERAL OIL ENEMA 133 ML PR PRN (09:45)
[2016-08-19] MEDS: POTASSI CL 20 MEQ/50 ML RIDER 50 ML IV SCH ×2 (10:37→12:07)
[2016-08-19] MEDS: CETIRIZINE 10 MG TABLET PO SCH (10:39)
[2016-08-19] MEDS: POLYETHYLENE GLYCOL 3350 POWDER 17 GM/1 PACKET PO SCH (10:41)
[2016-08-19] MEDS: HYDROXYZINE PAMOATE 50 MG CAPSULE PO PRN (16:21)
[2016-08-19] MEDS: IPRATROPIUM/ALBUTEROL 0.5-2.5 MG/3 ML AMPUL NEB PRN (16:59)
--- NOTE | 2016-08-19 17:07 | PDOC PROGRESS REPORT ---
Subjective Progress Note for:: 08/19/16 Subjective:: The patient was asleep upon rounds. No reported episodes of vomiting or diarrhea. Pain management as per hematology. Sinus congestion has appeared to improved. Physical Exam Vital Signs: Temp Pulse Resp BP Pulse Ox 98.2 F 89 16 117/52 L 100 08/19/16 12:00 08/19/16 16:59 08/19/16 16:59 08/19/16 12:00 08/19/16 16:59 Intake & Output 08/17/16 08/18/16 08/19/16 23:59 23:59 23:59 Intake Total 2836 1588 1240 Output Total 4150 400 1900 Balance -1314 1188 -660 General appearance: PRESENT: no acute distress, cooperative, well-developed, well-nourished Head exam: PRESENT: atraumatic, normocephalic Eye exam: PRESENT: conjunctiva pink, EOMI, PERRLA. ABSENT: scleral icterus Ear exam: PRESENT: normal external ear exam Mouth exam: PRESENT: moist, tongue midline Neck exam: ABSENT: carotid bruit, JVD, lymphadenopathy, thyromegaly Respiratory exam: PRESENT: clear to auscultation william, symmetrical, unlabored. ABSENT: rales, rhonchi, tachypnea, wheezes Cardiovascular exam: PRESENT: RRR. ABSENT: diastolic murmur, rubs, systolic murmur Pulses: PRESENT: normal dorsalis pedis pul Vascular exam: PRESENT: normal capillary refill GI/Abdominal exam: PRESENT: normal bowel sounds, soft. ABSENT: distended, guarding, mass, organolmegaly, rebound, tenderness Rectal exam: PRESENT: deferred Extremities exam: PRESENT: full ROM. ABSENT: calf tenderness, clubbing, pedal edema Neurological exam: PRESENT: alert, awake, oriented to person, oriented to place , oriented to time, oriented to situation, CN II-XII grossly intact. ABSENT: motor sensory deficit Psychiatric exam: PRESENT: Groggy, normal mood. ABSENT: homicidal ideation, suicidal ideation Skin exam: PRESENT: dry, intact, warm. ABSENT: cyanosis, rash Results Laboratory Results: 08/18/16 09:25 08/19/16 06:00 08/19/16 06:00 Sodium 142.0 Potassium 3.1 L Chloride 108 H Carbon Dioxide 27 Anion Gap 7 BUN < 2 L Creatinine 0.47 L Est GFR ( Amer) > 60 Est GFR (Non-Af Amer) > 60 Glucose 107 Calcium 7.9 L Impressions: Guidance Fluoroscopy 08/16/16 00:00 IMPRESSION: SUCCESSFUL PLACEMENT OF A 5 FR DUAL LUMEN 37 CM PICC IN THE left basilic VEIN. Interventional Vascular Procedure 08/16/16 00:00 IMPRESSION: SUCCESSFUL PLACEMENT OF A 5 FR DUAL LUMEN 37 CM PICC IN THE left basilic VEIN. PICC Line Insertion 08/16/16 00:00 IMPRESSION: SUCCESSFUL PLACEMENT OF A 5 FR DUAL LUMEN 37 CM PICC IN THE left basilic VEIN. Assessment & Plan - Diagnosis (1) Sickle-cell disease with pain Is this a current diagnosis for this admission?: YesPlan: Management as per hematology (2) Dyspnea Qualifiers: Dyspnea type: dyspnea on exertion Qualified Code(s): R06.09 - Other forms of dyspnea Is this a current diagnosis for this admission?: YesPlan: Asymptomatic at this time. (3) Opiate dependence, continuous Is this a current diagnosis for this admission?: YesPlan: Management as per hematology (4) Cardiac dysrhythmia Qualifiers: Arrhythmia type: ventricular tachycardia Qualified Code(s): I47.2 - Ventricular tachycardia Is this a current diagnosis for this admission?: No (5) Constipation Qualifiers: Constipation type: drug induced constipation Qualified Code(s): K59.03 - Drug induced constipation Is this a current diagnosis for this admission?: YesPlan: Give when necessary enema continue Bo asked (6) DVT prophylaxis Is this a current diagnosis for this admission?: YesPlan: The patient is on Xarelto (7) Deep venous thrombosis of right upper limb Qualifiers: Affected thrombotic vein of extremity: axillary Chronicity: unspecified Qualified Code(s): I82.A11 - Acute embolism and thrombosis of right axillary vein Is this a current diagnosis for this admission?: No (8) Hypertension Qualifiers: Hypertension type: essential hypertension Qualified Code(s): I10 - Essential (primary) hypertension Is this a current diagnosis for this admission?: YesPlan: Will continue home medications. (9) Major depression Qualifiers: Major depression recurrence: recurrent Major depression episode severity: moderate Is this a current diagnosis for this admission?: YesPlan: Will continue home medications. (10) Hypokalemia Is this a current diagnosis for this admission?: YesPlan: This is been repleted - Time Time Spent with patient: Less than 15 minutes Medications reviewed and adjusted accordingly: Yes Anticipated discharge: Home Within: Other
[2016-08-19] MEDS: AMITRIPTYLINE HCL 50 MG TABLET PO SCH (17:57)
[2016-08-19] MEDS: ZOLPIDEM TARTRATE 5 MG TABLET PO SCH (22:31)
[2016-08-19] MEDS: MONTELUKAST SODIUM 10 MG TABLET PO SCH (22:31)
[2016-08-19] MEDS: HYDROXYUREA 500 MG CAPSULE PO SCH (22:31)
[2016-08-20] MEDS: HYDROMORPHONE HCL INJ/PF 2 MG/ML AMPULE IV SCH ×11 (00:35→22:08)
[2016-08-20] MEDS: PROMETHAZINE HCL 25 MG TABLET PO SCH ×4 (00:35→18:28)
[2016-08-20] MEDS: NORMAL SALINE 1000 ML 1,000 ML IV PRN ×2 (07:40→09:43)
--- NOTE | 2016-08-20 07:45 | PDOC PROGRESS REPORT ---
Subjective Progress Note for:: 08/20/16 Subjective:: Still w/ severe pain today, has not yet had a BM Physical Exam Vital Signs: Temp Pulse Resp BP Pulse Ox 97.8 F 91 16 126/83 H 96 08/20/16 03:30 08/20/16 03:30 08/20/16 03:30 08/20/16 03:30 08/20/16 03:30 Intake & Output 08/19/16 08/20/16 08/21/16 06:59 06:59 06:59 Intake Total 970 1042 Output Total 2300 1800 Balance -1330 -758 General appearance: PRESENT: no acute distress, well-developed, well-nourished Head exam: PRESENT: atraumatic, normocephalic Eye exam: PRESENT: conjunctiva pink, EOMI, PERRLA. ABSENT: scleral icterus Ear exam: PRESENT: normal external ear exam Mouth exam: PRESENT: moist, tongue midline Neck exam: ABSENT: carotid bruit, JVD, lymphadenopathy, thyromegaly Respiratory exam: PRESENT: clear to auscultation william. ABSENT: rales, rhonchi, wheezes Cardiovascular exam: PRESENT: RRR. ABSENT: diastolic murmur, rubs, systolic murmur Pulses: PRESENT: normal dorsalis pedis pul Vascular exam: PRESENT: normal capillary refill GI/Abdominal exam: PRESENT: normal bowel sounds, soft. ABSENT: distended, guarding, mass, organolmegaly, rebound, tenderness Rectal exam: PRESENT: deferred Extremities exam: PRESENT: full ROM. ABSENT: calf tenderness, clubbing, pedal edema Neurological exam: PRESENT: alert, awake, oriented to person, oriented to place , oriented to time, oriented to situation, CN II-XII grossly intact. ABSENT: motor sensory deficit Psychiatric exam: PRESENT: appropriate affect, normal mood. ABSENT: homicidal ideation, suicidal ideation Skin exam: PRESENT: dry, intact, warm. ABSENT: cyanosis, rash Results Laboratory Results: 08/18/16 09:25 08/19/16 06:00 Impressions: Guidance Fluoroscopy 08/16/16 00:00 IMPRESSION: SUCCESSFUL PLACEMENT OF A 5 FR DUAL LUMEN 37 CM PICC IN THE left basilic VEIN. Interventional Vascular Procedure 08/16/16 00:00 IMPRESSION: SUCCESSFUL PLACEMENT OF A 5 FR DUAL LUMEN 37 CM PICC IN THE left basilic VEIN. PICC Line Insertion 08/16/16 00:00 IMPRESSION: SUCCESSFUL PLACEMENT OF A 5 FR DUAL LUMEN 37 CM PICC IN THE left basilic VEIN. Assessment & Plan - Diagnosis (1) Sickle cell crisis Is this a current diagnosis for this admission?: YesPlan: Still severe, will keep dilaudid same dose but add toradol today x 5 days. Con' t other support measures, do soap suds enema today (2) Sickle cell anemia Qualifiers: Sickle-cell associated disorders: with unspecified crisis Qualified Code(s): D57.00 - Hb-SS disease with crisis, unspecified; D57.0 - Hb-SS disease with crisis Is this a current diagnosis for this admission?: YesPlan: Hb stable post tx, hold on transfusion until hb gets under 7 but hopefully crisis will improve in next 2-3 days. - Time Time Spent with patient: 25-34 minutes Critical Time spent with patient: 25-34 minutes - Inpatient Certification Based on my medical assessment, after consideration of the patient's comorbidities, presenting symptoms, or acuity I expect that the services needed warrant INPATIENT care.: Yes I certify that my determination is in accordance with my understanding of Medicare's requirements for reasonable and necessary INPATIENT services [42 CFR 412.3e].: Yes Medical Necessity: Failure to Improve With Outpatient Therapy, Need For IV Fluids, Need for Pain Control
[2016-08-20] MEDS: FOLIC ACID 1 MG TABLET PO SCH (09:41)
[2016-08-20] MEDS: AMLODIPINE BESYLATE 5 MG TABLET PO SCH (09:41)
[2016-08-20] MEDS: RIVAROXABAN 15 MG TABLET PO SCH (09:42)
[2016-08-20] MEDS: DOCUSATE SODIUM 100 MG CAPSULE PO SCH ×2 (09:42→18:28)
[2016-08-20] MEDS: FLUTICASONE NASAL SPRAY 50 MCG/SPRY 120 SPRAY/16 GM NASL SCH ×2 (09:42→22:10)
[2016-08-20] MEDS ORDERED: KETOROLAC TROMETHAMINE INJ/PF 30 MG/1 ML SDV IV ONE (10:00)
--- NOTE | 2016-08-20 10:44 | PDOC PROGRESS REPORT ---
Subjective Progress Note for:: 08/20/16 Subjective:: The patient was on the phone when I made rounds. The patient has been seen by hematology today. The patient's had no episodes of vomiting nor diarrhea. The patient still has not had a bowel movement. Sinus congestion appears to have improved. Patient still describes herself is in severe pain. Physical Exam Vital Signs: Temp Pulse Resp BP Pulse Ox 97.4 F 86 12 130/67 H 100 08/20/16 08:00 08/20/16 08:00 08/20/16 08:00 08/20/16 08:00 08/20/16 08:00 Intake & Output 08/18/16 08/19/16 08/20/16 23:59 23:59 23:59 Intake Total 1588 1240 622 Output Total 400 1900 1800 Balance 1188 -660 -1178 General appearance: PRESENT: no acute distress, cooperative, well-developed, well-nourished Head exam: PRESENT: atraumatic, normocephalic Eye exam: PRESENT: conjunctiva pink, EOMI, PERRLA. ABSENT: scleral icterus Ear exam: PRESENT: normal external ear exam Mouth exam: PRESENT: moist, tongue midline Neck exam: ABSENT: carotid bruit, JVD, lymphadenopathy, thyromegaly Respiratory exam: PRESENT: clear to auscultation william, symmetrical, unlabored. ABSENT: rales, rhonchi, tachypnea, wheezes Cardiovascular exam: PRESENT: RRR. ABSENT: diastolic murmur, rubs, systolic murmur Pulses: PRESENT: normal dorsalis pedis pul Vascular exam: PRESENT: normal capillary refill GI/Abdominal exam: PRESENT: normal bowel sounds, soft. ABSENT: distended, guarding, mass, organolmegaly, rebound, tenderness Rectal exam: PRESENT: deferred Extremities exam: PRESENT: full ROM. ABSENT: calf tenderness, clubbing, pedal edema Neurological exam: PRESENT: alert, awake, oriented to person, oriented to place , oriented to time, oriented to situation, CN II-XII grossly intact. ABSENT: motor sensory deficit Psychiatric exam: PRESENT: Groggy, normal mood. ABSENT: homicidal ideation, suicidal ideation Skin exam: PRESENT: dry, intact, warm. ABSENT: cyanosis, rash Results Laboratory Results: 08/18/16 09:25 08/19/16 06:00 Impressions: Guidance Fluoroscopy 02/09/17 00:00 IMPRESSION: SUCCESSFUL PLACEMENT OF A 5 FR DUAL LUMEN 37 CM PICC IN THE left basilic VEIN. Interventional Vascular Procedure 08/16/16 00:00 IMPRESSION: SUCCESSFUL PLACEMENT OF A 5 FR DUAL LUMEN 37 CM PICC IN THE left basilic VEIN. PICC Line Insertion 08/16/16 00:00 IMPRESSION: SUCCESSFUL PLACEMENT OF A 5 FR DUAL LUMEN 37 CM PICC IN THE left basilic VEIN. Assessment & Plan - Diagnosis (1) Sickle-cell disease with pain Is this a current diagnosis for this admission?: YesPlan: Management as per hematology (2) Dyspnea Qualifiers: Dyspnea type: dyspnea on exertion Qualified Code(s): R06.09 - Other forms of dyspnea Is this a current diagnosis for this admission?: YesPlan: Asymptomatic at this time. (3) Opiate dependence, continuous Is this a current diagnosis for this admission?: YesPlan: Management as per hematology (4) Constipation Qualifiers: Constipation type: drug induced constipation Qualified Code(s): K59.03 - Drug induced constipation Is this a current diagnosis for this admission?: YesPlan: Give when necessary enema continue Vesna lax (5) DVT prophylaxis Is this a current diagnosis for this admission?: YesPlan: The patient is on Xarelto (6) Hypertension Qualifiers: Hypertension type: essential hypertension Qualified Code(s): I10 - Essential (primary) hypertension Is this a current diagnosis for this admission?: YesPlan: Will continue home medications. (7) Major depression Qualifiers: Major depression recurrence: recurrent Major depression episode severity: moderate Is this a current diagnosis for this admission?: YesPlan: Will continue home medications. (8) Hypokalemia Is this a current diagnosis for this admission?: YesPlan: This is been repleted. Repeat in the a.m. (9) Cardiac dysrhythmia Qualifiers: Arrhythmia type: ventricular tachycardia Qualified Code(s): I47.2 - Ventricular tachycardia Is this a current diagnosis for this admission?: No (10) Deep venous thrombosis of right upper limb Qualifiers: Affected thrombotic vein of extremity: axillary Chronicity: unspecified Qualified Code(s): I82.A11 - Acute embolism and thrombosis of right axillary vein Is this a current diagnosis for this admission?: NoPlan: The patient has had a recent history of this. Will continue Xarelto. Do remain mindful as the patient has a PICC line in the same extremity. - Time Time Spent with patient: 25-34 minutes Medications reviewed and adjusted accordingly: Yes Anticipated discharge: Home Within: Other - When clear by hematology Disposition: The patient is a full code. Pending patient's symptomatology and diagnostic findings will reevaluate in the a.m.
[2016-08-20] MEDS: CETIRIZINE 10 MG TABLET PO SCH (11:18)
[2016-08-20] MEDS: POLYETHYLENE GLYCOL 3350 POWDER 17 GM/1 PACKET PO SCH (11:18)
[2016-08-20] MEDS: KETOROLAC TROMETHAMINE INJ/PF 30 MG/1 ML SDV IV SCH (18:27)
[2016-08-20] MEDS: AMITRIPTYLINE HCL 50 MG TABLET PO SCH (18:28)
[2016-08-20] MEDS: ZOLPIDEM TARTRATE 5 MG TABLET PO SCH (22:07)
[2016-08-20] MEDS: MONTELUKAST SODIUM 10 MG TABLET PO SCH (22:08)
[2016-08-20] MEDS: HYDROXYUREA 500 MG CAPSULE PO SCH (22:20)
[2016-08-21] MEDS: NORMAL SALINE 1000 ML 1,000 ML IV PRN ×3 (00:13→20:44)
[2016-08-21] MEDS: HYDROMORPHONE HCL INJ/PF 2 MG/ML AMPULE IV SCH ×11 (03:10→22:25)
[2016-08-21] MEDS: PROMETHAZINE HCL 25 MG TABLET PO SCH ×4 (03:10→18:12)
[2016-08-21] MEDS: KETOROLAC TROMETHAMINE INJ/PF 30 MG/1 ML SDV IV SCH ×3 (03:32→18:10)
[2016-08-21 06:28] LABS: HEMATOCRIT 24.4 % (36.0-47.0); HEMOGLOBIN 8.4 g/dL (12.0-15.5); HGB HCT DIFFERENCE 0.8; MEAN CORPUSCULAR HEMOGLOBIN 33.7 pg (27.0-33.4); MEAN CORPUSCULAR HGB CONC 34.6 g/dL (32.0-36.0); MEAN CORPUSCULAR VOLUME 98 fl (80-97); RED CELL DISTRIBUTION WIDTH 23.8 % (11.5-14.0); WHITE BLOOD COUNT 6.1 10^3/uL (4.0-10.5)
[2016-08-21 06:30] LABS: ANION GAP 6 (5-19); BLOOD UREA NITROGEN 2 mg/dL (7-20); CALCIUM 8.3 mg/dL (8.4-10.2); CARBON DIOXIDE 29 mmol/L (22-30); CHLORIDE 106 mmol/L (98-107); CREATININE RESULT 0.49 mg/dL (0.52-1.25); GLUCOSE 84 mg/dL (75-110); MAGNESIUM 1.4 mg/dL (1.6-2.3); POTASSIUM 3.2 mmol/L (3.6-5.0)
--- NOTE | 2016-08-21 07:52 | PDOC PROGRESS REPORT ---
Subjective Progress Note for:: 08/21/16 Subjective:: Still w/ considerable pain but slightly better than yesterday Physical Exam Vital Signs: Temp Pulse Resp BP Pulse Ox 98.6 F 86 18 115/64 100 08/21/16 04:00 08/21/16 04:00 08/21/16 04:00 08/21/16 04:00 08/21/16 04:00 Intake & Output 08/20/16 08/21/16 08/22/16 06:59 06:59 06:59 Intake Total 1042 240 Output Total 1800 300 Balance -758 -60 General appearance: PRESENT: no acute distress, well-developed, well-nourished Head exam: PRESENT: atraumatic, normocephalic Eye exam: PRESENT: conjunctiva pink, EOMI, PERRLA. ABSENT: scleral icterus Ear exam: PRESENT: normal external ear exam Mouth exam: PRESENT: moist, tongue midline Neck exam: ABSENT: carotid bruit, JVD, lymphadenopathy, thyromegaly Respiratory exam: PRESENT: clear to auscultation william. ABSENT: rales, rhonchi, wheezes Cardiovascular exam: PRESENT: RRR. ABSENT: diastolic murmur, rubs, systolic murmur Pulses: PRESENT: normal dorsalis pedis pul Vascular exam: PRESENT: normal capillary refill GI/Abdominal exam: PRESENT: normal bowel sounds, soft. ABSENT: distended, guarding, mass, organolmegaly, rebound, tenderness Rectal exam: PRESENT: deferred Extremities exam: PRESENT: full ROM. ABSENT: calf tenderness, clubbing, pedal edema Neurological exam: PRESENT: alert, awake, oriented to person, oriented to place , oriented to time, oriented to situation, CN II-XII grossly intact. ABSENT: motor sensory deficit Psychiatric exam: PRESENT: appropriate affect, normal mood. ABSENT: homicidal ideation, suicidal ideation Skin exam: PRESENT: dry, intact, warm. ABSENT: cyanosis, rash Results Laboratory Results: 08/21/16 05:50 08/21/16 05:50 08/21/16 08/21/16 05:50 05:50 WBC 6.1 RBC 2.50 L Hgb 8.4 L Hct 24.4 L MCV 98 H MCH 33.7 H MCHC 34.6 RDW 23.8 H Plt Count 200 Sodium 141.0 Potassium 3.2 L Chloride 106 Carbon Dioxide 29 Anion Gap 6 BUN 2 L Creatinine 0.49 L Est GFR ( Amer) > 60 Est GFR (Non-Af Amer) > 60 Glucose 84 Calcium 8.3 L Magnesium 1.4 L Impressions: Guidance Fluoroscopy 08/16/16 00:00 IMPRESSION: SUCCESSFUL PLACEMENT OF A 5 FR DUAL LUMEN 37 CM PICC IN THE left basilic VEIN. Interventional Vascular Procedure 08/16/16 00:00 IMPRESSION: SUCCESSFUL PLACEMENT OF A 5 FR DUAL LUMEN 37 CM PICC IN THE left basilic VEIN. PICC Line Insertion 08/16/16 00:00 IMPRESSION: SUCCESSFUL PLACEMENT OF A 5 FR DUAL LUMEN 37 CM PICC IN THE left basilic VEIN. Assessment & Plan - Diagnosis (1) Sickle cell crisis Is this a current diagnosis for this admission?: YesPlan: Con't current dilaudid dose, con't toradol, no changes in pain regimen today, still con't to work on bowel regimen (2) Sickle cell anemia Qualifiers: Sickle-cell associated disorders: with unspecified crisis Qualified Code(s): D57.00 - Hb-SS disease with crisis, unspecified; D57.0 - Hb-SS disease with crisis Is this a current diagnosis for this admission?: YesPlan: Hb stable, no need for transfusion today - Time Time Spent with patient: 15-24 minutes Critical Time spent with patient: 15-24 minutes - Inpatient Certification Based on my medical assessment, after consideration of the patient's comorbidities, presenting symptoms, or acuity I expect that the services needed warrant INPATIENT care.: Yes I certify that my determination is in accordance with my understanding of Medicare's requirements for reasonable and necessary INPATIENT services [42 CFR 412.3e].: Yes Medical Necessity: Failure to Improve With Outpatient Therapy, Need For IV Fluids, Need for Pain Control
[2016-08-21] MEDS ORDERED: POTASSIUM CHLORIDE 10 MEQ TABLET.SA PO ONE (09:30)
[2016-08-21] MEDS: RIVAROXABAN 15 MG TABLET PO SCH (10:10)
[2016-08-21] MEDS: DOCUSATE SODIUM 100 MG CAPSULE PO SCH ×2 (10:11→18:10)
[2016-08-21] MEDS: AMLODIPINE BESYLATE 5 MG TABLET PO SCH (10:12)
[2016-08-21] MEDS: FLUTICASONE NASAL SPRAY 50 MCG/SPRY 120 SPRAY/16 GM NASL SCH ×2 (10:12→22:26)
[2016-08-21] MEDS: FOLIC ACID 1 MG TABLET PO SCH (10:15)
[2016-08-21] MEDS: POLYETHYLENE GLYCOL 3350 POWDER 17 GM/1 PACKET PO SCH (11:46)
[2016-08-21] MEDS: CETIRIZINE 10 MG TABLET PO SCH (11:46)
[2016-08-21] MEDS: AMITRIPTYLINE HCL 50 MG TABLET PO SCH (18:10)
[2016-08-21] MEDS: MINERAL OIL ENEMA 133 ML PR PRN (18:14)
[2016-08-21] MEDS: HYDROXYUREA 500 MG CAPSULE PO SCH (22:24)
[2016-08-21] MEDS: ZOLPIDEM TARTRATE 5 MG TABLET PO SCH (22:25)
[2016-08-21] MEDS: MONTELUKAST SODIUM 10 MG TABLET PO SCH (22:25)
[2016-08-22] MEDS: HYDROMORPHONE HCL INJ/PF 2 MG/ML AMPULE IV SCH ×12 (00:03→22:34)
[2016-08-22] MEDS: PROMETHAZINE HCL 25 MG TABLET PO SCH ×4 (00:03→18:14)
[2016-08-22] MEDS: KETOROLAC TROMETHAMINE INJ/PF 30 MG/1 ML SDV IV SCH ×3 (02:04→18:13)
[2016-08-22] MEDS: NORMAL SALINE 1000 ML 1,000 ML IV PRN ×2 (04:25→22:06)
--- NOTE | 2016-08-22 07:53 | PDOC PROGRESS REPORT ---
Subjective Progress Note for:: 08/22/16 Subjective:: Feeling better today, pain seems better, had BM on saturday but no further BM since then. Physical Exam Vital Signs: Temp Pulse Resp BP Pulse Ox 98.2 F 89 18 116/68 100 08/22/16 04:00 08/22/16 04:00 08/22/16 04:00 08/22/16 04:00 08/22/16 04:00 Intake & Output 08/21/16 08/22/16 08/23/16 06:59 06:59 06:59 Intake Total 240 2720 Output Total 300 3100 Balance -60 -380 General appearance: PRESENT: no acute distress, well-developed, well-nourished Head exam: PRESENT: atraumatic, normocephalic Eye exam: PRESENT: conjunctiva pink, EOMI, PERRLA. ABSENT: scleral icterus Ear exam: PRESENT: normal external ear exam Mouth exam: PRESENT: moist, tongue midline Neck exam: ABSENT: carotid bruit, JVD, lymphadenopathy, thyromegaly Respiratory exam: PRESENT: clear to auscultation william. ABSENT: rales, rhonchi, wheezes Cardiovascular exam: PRESENT: RRR. ABSENT: diastolic murmur, rubs, systolic murmur Pulses: PRESENT: normal dorsalis pedis pul Vascular exam: PRESENT: normal capillary refill GI/Abdominal exam: PRESENT: normal bowel sounds, soft. ABSENT: distended, guarding, mass, organolmegaly, rebound, tenderness Rectal exam: PRESENT: deferred Extremities exam: PRESENT: full ROM. ABSENT: calf tenderness, clubbing, pedal edema Neurological exam: PRESENT: alert, awake, oriented to person, oriented to place , oriented to time, oriented to situation, CN II-XII grossly intact. ABSENT: motor sensory deficit Psychiatric exam: PRESENT: appropriate affect, normal mood. ABSENT: homicidal ideation, suicidal ideation Skin exam: PRESENT: dry, intact, warm. ABSENT: cyanosis, rash Results Laboratory Results: 08/21/16 05:50 08/21/16 05:50 Impressions: Guidance Fluoroscopy 08/16/16 00:00 IMPRESSION: SUCCESSFUL PLACEMENT OF A 5 FR DUAL LUMEN 37 CM PICC IN THE left basilic VEIN. Interventional Vascular Procedure 08/16/16 00:00 IMPRESSION: SUCCESSFUL PLACEMENT OF A 5 FR DUAL LUMEN 37 CM PICC IN THE left basilic VEIN. PICC Line Insertion 08/16/16 00:00 IMPRESSION: SUCCESSFUL PLACEMENT OF A 5 FR DUAL LUMEN 37 CM PICC IN THE left basilic VEIN. Assessment & Plan - Diagnosis (1) Sickle cell crisis Is this a current diagnosis for this admission?: YesPlan: Seems to be improving, con't current pain control today, hopeful tapering to start tomorrow, con't w/ other supportive measures, another soap suds enema today (2) Sickle cell anemia Qualifiers: Sickle-cell associated disorders: with unspecified crisis Qualified Code(s): D57.00 - Hb-SS disease with crisis, unspecified; D57.0 - Hb-SS disease with crisis Is this a current diagnosis for this admission?: YesPlan: Hb stable, ok to do cbc q 2-3 days while admitted, follow closely but hopefully will not require another tx this hospital stay - Time Time Spent with patient: 15-24 minutes Critical Time spent with patient: 15-24 minutes - Inpatient Certification Medical Necessity: Need For IV Fluids, Need for IV Antibiotics
[2016-08-22] MEDS: AMLODIPINE BESYLATE 5 MG TABLET PO SCH (10:01)
[2016-08-22] MEDS: FOLIC ACID 1 MG TABLET PO SCH (10:01)
[2016-08-22] MEDS: DOCUSATE SODIUM 100 MG CAPSULE PO SCH ×2 (10:05→18:14)
[2016-08-22] MEDS: FLUTICASONE NASAL SPRAY 50 MCG/SPRY 120 SPRAY/16 GM NASL SCH ×2 (10:06→22:33)
[2016-08-22] MEDS: CETIRIZINE 10 MG TABLET PO SCH (10:08)
[2016-08-22] MEDS: POLYETHYLENE GLYCOL 3350 POWDER 17 GM/1 PACKET PO SCH (10:10)
[2016-08-22] MEDS ORDERED: RIVAROXABAN 15 MG TABLET PO ONE (11:30)
--- NOTE | 2016-08-22 15:22 | PDOC PROGRESS REPORT ---
Subjective Progress Note for:: 08/22/16 Subjective:: Patient seen on morning rounds. She is resting in bed. She continues to complain of generalized pain.She states her pain is improved. She is eating better and no longer nauseated. She is tolerating a regular diet. She denies any shortness of breath or dyspnea. She denies any cough. Physical Exam Vital Signs: Temp Pulse Resp BP Pulse Ox 98.0 F 94 18 146/79 H 100 08/22/16 11:52 08/22/16 11:52 08/22/16 11:52 08/22/16 11:52 08/22/16 11:52 Intake & Output 08/21/16 08/22/16 08/23/16 06:59 06:59 06:59 Intake Total 240 2720 Output Total 300 3100 Balance -60 -380 General appearance: PRESENT: no acute distress, well-developed, well-nourished Head exam: PRESENT: atraumatic, normocephalic Eye exam: PRESENT: conjunctiva pink, EOMI, PERRLA. ABSENT: scleral icterus Ear exam: PRESENT: normal external ear exam Mouth exam: PRESENT: moist, tongue midline Neck exam: ABSENT: carotid bruit, JVD, lymphadenopathy, thyromegaly Respiratory exam: PRESENT: clear to auscultation william. ABSENT: rales, rhonchi, wheezes Cardiovascular exam: PRESENT: RRR. ABSENT: diastolic murmur, rubs, systolic murmur Pulses: PRESENT: normal carotid pulses Vascular exam: PRESENT: normal capillary refill GI/Abdominal exam: PRESENT: normal bowel sounds, soft. ABSENT: distended, guarding, mass, organolmegaly, rebound, tenderness Extremities exam: PRESENT: full ROM. ABSENT: calf tenderness, clubbing, pedal edema Neurological exam: PRESENT: alert, awake, oriented to person, oriented to place , oriented to time, oriented to situation, CN II-XII grossly intact. ABSENT: motor sensory deficit Psychiatric exam: PRESENT: appropriate affect, normal mood. ABSENT: homicidal ideation, suicidal ideation Skin exam: PRESENT: dry, intact, warm. ABSENT: cyanosis, rash Results Laboratory Results: 08/21/16 05:50 08/21/16 05:50 Impressions: Guidance Fluoroscopy 08/16/16 00:00 IMPRESSION: SUCCESSFUL PLACEMENT OF A 5 FR DUAL LUMEN 37 CM PICC IN THE left basilic VEIN. Interventional Vascular Procedure 08/16/16 00:00 IMPRESSION: SUCCESSFUL PLACEMENT OF A 5 FR DUAL LUMEN 37 CM PICC IN THE left basilic VEIN. PICC Line Insertion 08/16/16 00:00 IMPRESSION: SUCCESSFUL PLACEMENT OF A 5 FR DUAL LUMEN 37 CM PICC IN THE left basilic VEIN. 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 Hgb 8.4. Will hold transfusion unless under 7. (2) Hypertension Qualifiers: Hypertension type: essential hypertension Qualified Code(s): I10 - Essential (primary) hypertension Is this a current diagnosis for this admission?: YesPlan: Presently normotensive on current medications (3) Opiate dependence, continuous Is this a current diagnosis for this admission?: YesPlan: Patient is tolerating dilaudid 3 mg IV q2hprn. She is on chronic opioid therapy at home. (4) Major depression Qualifiers: Major depression recurrence: recurrent Major depression episode severity: moderate Is this a current diagnosis for this admission?: YesPlan: Continue current medications (5) Constipation Qualifiers: Constipation type: drug induced constipation Qualified Code(s): K59.03 - Drug induced constipation Is this a current diagnosis for this admission?: YesPlan: Patient states her bowels moved yesterday (6) Diastolic CHF Qualifiers: Congestive heart failure chronicity: chronic Qualified Code(s): I50.32 - Chronic diastolic (congestive) heart failure Is this a current diagnosis for this admission?: YesPlan: Patient is presently euvolemic. She denies dyspnea - Time Time Spent with patient: 25-34 minutes Critical Time spent with patient: 15-24 minutes Medications reviewed and adjusted accordingly: Yes Anticipated discharge: Home Within: within 48 hours
[2016-08-22] MEDS: AMITRIPTYLINE HCL 50 MG TABLET PO SCH (18:14)
[2016-08-22] MEDS: HYDROXYUREA 500 MG CAPSULE PO SCH (22:33)
[2016-08-22] MEDS: MONTELUKAST SODIUM 10 MG TABLET PO SCH (22:33)
[2016-08-22] MEDS: ZOLPIDEM TARTRATE 5 MG TABLET PO SCH (22:34)
[2016-08-23] MEDS: PROMETHAZINE HCL 25 MG TABLET PO SCH ×4 (00:22→18:12)
[2016-08-23] MEDS: HYDROMORPHONE HCL INJ/PF 2 MG/ML AMPULE IV SCH ×11 (00:22→22:17)
[2016-08-23] MEDS: KETOROLAC TROMETHAMINE INJ/PF 30 MG/1 ML SDV IV SCH ×3 (02:12→18:10)
--- NOTE | 2016-08-23 08:29 | PDOC PROGRESS REPORT ---
Subjective Progress Note for:: 08/23/16 Subjective:: Patient feels better today, we will begin tapering pain medication today Physical Exam Vital Signs: Temp Pulse Resp BP Pulse Ox 98.5 F 79 18 120/64 100 08/23/16 04:20 08/23/16 04:20 08/23/16 04:20 08/23/16 04:20 08/23/16 04:20 Intake & Output 08/22/16 08/23/16 08/24/16 06:59 06:59 06:59 Intake Total 2720 2344 Output Total 3100 1800 Balance -380 544 General appearance: PRESENT: no acute distress, well-developed, well-nourished Head exam: PRESENT: atraumatic, normocephalic Eye exam: PRESENT: conjunctiva pink, EOMI, PERRLA. ABSENT: scleral icterus Ear exam: PRESENT: normal external ear exam Mouth exam: PRESENT: moist, tongue midline Neck exam: ABSENT: carotid bruit, JVD, lymphadenopathy, thyromegaly Respiratory exam: PRESENT: clear to auscultation william. ABSENT: rales, rhonchi, wheezes Cardiovascular exam: PRESENT: RRR. ABSENT: diastolic murmur, rubs, systolic murmur Pulses: PRESENT: normal dorsalis pedis pul Vascular exam: PRESENT: normal capillary refill GI/Abdominal exam: PRESENT: normal bowel sounds, soft. ABSENT: distended, guarding, mass, organolmegaly, rebound, tenderness Rectal exam: PRESENT: deferred Extremities exam: PRESENT: full ROM. ABSENT: calf tenderness, clubbing, pedal edema Neurological exam: PRESENT: alert, awake, oriented to person, oriented to place , oriented to time, oriented to situation, CN II-XII grossly intact. ABSENT: motor sensory deficit Psychiatric exam: PRESENT: appropriate affect, normal mood. ABSENT: homicidal ideation, suicidal ideation Skin exam: PRESENT: dry, intact, warm. ABSENT: cyanosis, rash Results Laboratory Results: 08/21/16 05:50 08/21/16 05:50 Impressions: Guidance Fluoroscopy 08/16/16 00:00 IMPRESSION: SUCCESSFUL PLACEMENT OF A 5 FR DUAL LUMEN 37 CM PICC IN THE left basilic VEIN. Interventional Vascular Procedure 08/16/16 00:00 IMPRESSION: SUCCESSFUL PLACEMENT OF A 5 FR DUAL LUMEN 37 CM PICC IN THE left basilic VEIN. PICC Line Insertion 08/16/16 00:00 IMPRESSION: SUCCESSFUL PLACEMENT OF A 5 FR DUAL LUMEN 37 CM PICC IN THE left basilic VEIN. Assessment & Plan - Diagnosis (1) Sickle cell crisis Is this a current diagnosis for this admission?: YesPlan: Improving decrease Dilaudid today, we'll decrease it further tomorrow, if by tomorrow we can decrease it down to 2 mg per dose, we can discharge her on Saturday with a prescription for oral Dilaudid, I have written that already. Continue with current hydration and management. (2) Sickle cell anemia Qualifiers: Sickle-cell associated disorders: with unspecified crisis Qualified Code(s): D57.00 - Hb-SS disease with crisis, unspecified; D57.0 - Hb-SS disease with crisis Is this a current diagnosis for this admission?: YesPlan: Hold on transfusion - Time Time Spent with patient: 25-34 minutes Critical Time spent with patient: 25-34 minutes Anticipated discharge: Home Within: within 48 hours - Inpatient Certification Based on my medical assessment, after consideration of the patient's comorbidities, presenting symptoms, or acuity I expect that the services needed warrant INPATIENT care.: Yes I certify that my determination is in accordance with my understanding of Medicare's requirements for reasonable and necessary INPATIENT services [42 CFR 412.3e].: Yes Medical Necessity: Need for Pain Control
[2016-08-23] MEDS: AMLODIPINE BESYLATE 5 MG TABLET PO SCH (09:30)
[2016-08-23] MEDS: FOLIC ACID 1 MG TABLET PO SCH (09:30)
[2016-08-23] MEDS: DOCUSATE SODIUM 100 MG CAPSULE PO SCH ×2 (09:31→18:12)
[2016-08-23] MEDS: FLUTICASONE NASAL SPRAY 50 MCG/SPRY 120 SPRAY/16 GM NASL SCH ×2 (09:32→22:16)
[2016-08-23] MEDS: RIVAROXABAN 15 MG TABLET PO SCH (09:34)
[2016-08-23] MEDS: POLYETHYLENE GLYCOL 3350 POWDER 17 GM/1 PACKET PO SCH (11:23)
[2016-08-23] MEDS: CETIRIZINE 10 MG TABLET PO SCH (11:24)
[2016-08-23] MEDS ORDERED: POTASSI CL 20 MEQ/50 ML RIDER 50 ML IV ONE (13:15)
[2016-08-23] MEDS: NORMAL SALINE 1000 ML 1,000 ML IV PRN (16:21)
[2016-08-23] MEDS: AMITRIPTYLINE HCL 50 MG TABLET PO SCH (18:38)
[2016-08-23] MEDS: MONTELUKAST SODIUM 10 MG TABLET PO SCH (22:16)
[2016-08-23] MEDS: HYDROXYUREA 500 MG CAPSULE PO SCH (22:16)
[2016-08-23] MEDS: ZOLPIDEM TARTRATE 5 MG TABLET PO SCH (22:17)
[2016-08-24] MEDS: PROMETHAZINE HCL 25 MG TABLET PO SCH ×5 (00:31→23:18)
[2016-08-24] MEDS: HYDROMORPHONE HCL INJ/PF 2 MG/ML AMPULE IV SCH ×13 (00:31→23:18)
[2016-08-24] MEDS: KETOROLAC TROMETHAMINE INJ/PF 30 MG/1 ML SDV IV SCH ×3 (02:12→18:13)
[2016-08-24 07:22] LABS: ANION GAP 7 (5-19); BLOOD UREA NITROGEN 5 mg/dL (7-20); CARBON DIOXIDE 30 mmol/L (22-30); CHLORIDE 105 mmol/L (98-107); CREATININE RESULT 0.47 mg/dL (0.52-1.25); GLUCOSE 84 mg/dL (75-110); POTASSIUM 3.8 mmol/L (3.6-5.0); SODIUM 142.2 mmol/L (137-145)
--- NOTE | 2016-08-24 07:34 | PDOC PROGRESS REPORT ---
Subjective Progress Note for:: 08/22/16 Subjective:: Patient seen on morning rounds. She is resting in bed. She continues to complain of generalized pain.She states her pain is improved. She is eating better and no longer nauseated. She is tolerating a regular diet. She denies any shortness of breath or dyspnea. She denies any cough. Physical Exam Vital Signs: Temp Pulse Resp BP Pulse Ox 98.2 F 83 18 126/73 H 100 08/24/16 06:00 08/24/16 06:00 08/24/16 06:00 08/24/16 06:00 08/24/16 06:00 Intake & Output 08/23/16 08/24/16 08/25/16 06:59 06:59 06:59 Intake Total 2344 3093 Output Total 1800 4900 Balance 544 -1807 General appearance: PRESENT: no acute distress, well-developed, well-nourished Head exam: PRESENT: atraumatic, normocephalic Eye exam: PRESENT: conjunctiva pink, EOMI, PERRLA. ABSENT: scleral icterus Ear exam: PRESENT: normal external ear exam Mouth exam: PRESENT: moist, tongue midline Neck exam: ABSENT: carotid bruit, JVD, lymphadenopathy, thyromegaly Respiratory exam: PRESENT: clear to auscultation william. ABSENT: rales, rhonchi, wheezes Cardiovascular exam: PRESENT: RRR. ABSENT: diastolic murmur, rubs, systolic murmur Pulses: PRESENT: normal dorsalis pedis pul Vascular exam: PRESENT: normal capillary refill GI/Abdominal exam: PRESENT: normal bowel sounds, soft. ABSENT: distended, guarding, mass, organolmegaly, rebound, tenderness Rectal exam: PRESENT: deferred Extremities exam: PRESENT: full ROM. ABSENT: calf tenderness, clubbing, pedal edema Neurological exam: PRESENT: alert, awake, oriented to person, oriented to place , oriented to time, oriented to situation, CN II-XII grossly intact. ABSENT: motor sensory deficit Psychiatric exam: PRESENT: appropriate affect, normal mood. ABSENT: homicidal ideation, suicidal ideation Skin exam: PRESENT: dry, intact, warm. ABSENT: cyanosis, rash Results Laboratory Results: 08/21/16 05:50 08/24/16 06:17 08/24/16 06:17 Sodium 142.2 Potassium 3.8 Chloride 105 Carbon Dioxide 30 Anion Gap 7 BUN 5 L Creatinine 0.47 L Est GFR ( Amer) > 60 Est GFR (Non-Af Amer) > 60 Glucose 84 Calcium 9.0 Impressions: Guidance Fluoroscopy 08/16/16 00:00 IMPRESSION: SUCCESSFUL PLACEMENT OF A 5 FR DUAL LUMEN 37 CM PICC IN THE left basilic VEIN. Interventional Vascular Procedure 08/16/16 00:00 IMPRESSION: SUCCESSFUL PLACEMENT OF A 5 FR DUAL LUMEN 37 CM PICC IN THE left basilic VEIN. PICC Line Insertion 08/16/16 00:00 IMPRESSION: SUCCESSFUL PLACEMENT OF A 5 FR DUAL LUMEN 37 CM PICC IN THE left basilic VEIN. 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 She is on chronic opioid therapy at home. (4) Major depression Qualifiers: Major depression recurrence: recurrent Major depression episode severity: moderate Is this a current diagnosis for this admission?: YesPlan: Continue current medications (5) Constipation Qualifiers: Constipation type: drug induced constipation Qualified Code(s): K59.03 - Drug induced constipation Is this a current diagnosis for this admission?: YesPlan: Patient states her bowels moved yesterday (6) Diastolic CHF Qualifiers: Congestive heart failure chronicity: chronic Qualified Code(s): I50.32 - Chronic diastolic (congestive) heart failure Is this a current diagnosis for this admission?: YesPlan: Patient is presently euvolemic. She denies dyspnea - Time Time Spent with patient: 15-24 minutes Medications reviewed and adjusted accordingly: Yes Anticipated discharge: Home
--- NOTE | 2016-08-24 08:23 | PDOC PROGRESS REPORT ---
Subjective Progress Note for:: 08/24/16 Subjective:: Pain increased after decrease in dilaudid to 4mg. Had BM 2 days ago but not since then. Physical Exam Vital Signs: Temp Pulse Resp BP Pulse Ox 98.5 F 88 16 138/72 H 100 08/24/16 08:13 08/24/16 08:13 08/24/16 08:13 08/24/16 08:13 08/24/16 08:13 Intake & Output 08/23/16 08/24/16 08/25/16 06:59 06:59 06:59 Intake Total 2344 3093 Output Total 1800 4900 Balance 544 -1807 General appearance: PRESENT: no acute distress, well-developed, well-nourished Head exam: PRESENT: atraumatic, normocephalic Eye exam: PRESENT: conjunctiva pink, EOMI, PERRLA. ABSENT: scleral icterus Ear exam: PRESENT: normal external ear exam Mouth exam: PRESENT: moist, tongue midline Neck exam: ABSENT: carotid bruit, JVD, lymphadenopathy, thyromegaly Respiratory exam: PRESENT: clear to auscultation william. ABSENT: rales, rhonchi, wheezes Cardiovascular exam: PRESENT: RRR. ABSENT: diastolic murmur, rubs, systolic murmur Pulses: PRESENT: normal dorsalis pedis pul Vascular exam: PRESENT: normal capillary refill GI/Abdominal exam: PRESENT: normal bowel sounds, soft. ABSENT: distended, guarding, mass, organolmegaly, rebound, tenderness Rectal exam: PRESENT: deferred Extremities exam: PRESENT: full ROM. ABSENT: calf tenderness, clubbing, pedal edema Neurological exam: PRESENT: alert, awake, oriented to person, oriented to place , oriented to time, oriented to situation, CN II-XII grossly intact. ABSENT: motor sensory deficit Psychiatric exam: PRESENT: appropriate affect, normal mood. ABSENT: homicidal ideation, suicidal ideation Skin exam: PRESENT: dry, intact, warm. ABSENT: cyanosis, rash Results Laboratory Results: 08/21/16 05:50 08/24/16 06:17 08/24/16 06:17 Sodium 142.2 Potassium 3.8 Chloride 105 Carbon Dioxide 30 Anion Gap 7 BUN 5 L Creatinine 0.47 L Est GFR ( Amer) > 60 Est GFR (Non-Af Amer) > 60 Glucose 84 Calcium 9.0 Impressions: Guidance Fluoroscopy 08/16/16 00:00 IMPRESSION: SUCCESSFUL PLACEMENT OF A 5 FR DUAL LUMEN 37 CM PICC IN THE left basilic VEIN. Interventional Vascular Procedure 08/16/16 00:00 IMPRESSION: SUCCESSFUL PLACEMENT OF A 5 FR DUAL LUMEN 37 CM PICC IN THE left basilic VEIN. PICC Line Insertion 08/16/16 00:00 IMPRESSION: SUCCESSFUL PLACEMENT OF A 5 FR DUAL LUMEN 37 CM PICC IN THE left basilic VEIN. Assessment & Plan - Diagnosis (1) Sickle cell crisis Is this a current diagnosis for this admission?: YesPlan: Pain still severe, will con't same dose dilaudid thru weekend and plan for hopeful d/c home saturday w/ oral rx for dialudid. D/c labs, don't want to transfuse over weekend. She will need BM prior to d/c so try for that on saturday. Con't other supportive measures (2) Sickle cell anemia Qualifiers: Sickle-cell associated disorders: with unspecified crisis Qualified Code(s): D57.00 - Hb-SS disease with crisis, unspecified; D57.0 - Hb-SS disease with crisis Is this a current diagnosis for this admission?: YesPlan: Hb stable, hold on transfusion - Time Time Spent with patient: 25-34 minutes Critical Time spent with patient: 25-34 minutes - Inpatient Certification Based on my medical assessment, after consideration of the patient's comorbidities, presenting symptoms, or acuity I expect that the services needed warrant INPATIENT care.: Yes I certify that my determination is in accordance with my understanding of Medicare's requirements for reasonable and necessary INPATIENT services [42 CFR 412.3e].: Yes Medical Necessity: Need For IV Fluids, Need for Pain Control, Risk of Complication if Not Cared For in Hospital
[2016-08-24] MEDS: NORMAL SALINE 1000 ML 1,000 ML IV PRN ×2 (09:13→18:29)
[2016-08-24] MEDS: FOLIC ACID 1 MG TABLET PO SCH (10:23)
[2016-08-24] MEDS: AMLODIPINE BESYLATE 5 MG TABLET PO SCH (10:23)
[2016-08-24] MEDS: DOCUSATE SODIUM 100 MG CAPSULE PO SCH ×2 (10:23→18:13)
[2016-08-24] MEDS: CETIRIZINE 10 MG TABLET PO SCH (10:23)
[2016-08-24] MEDS: POLYETHYLENE GLYCOL 3350 POWDER 17 GM/1 PACKET PO SCH (10:25)
[2016-08-24] MEDS: FLUTICASONE NASAL SPRAY 50 MCG/SPRY 120 SPRAY/16 GM NASL SCH ×2 (10:25→23:15)
[2016-08-24] MEDS: RIVAROXABAN 15 MG TABLET PO SCH (10:30)
[2016-08-24] MEDS: AMITRIPTYLINE HCL 50 MG TABLET PO SCH (18:12)
[2016-08-24] MEDS: ACETAMINOPHEN 325 MG TABLET PO PRN (21:08)
[2016-08-24] MEDS: ZOLPIDEM TARTRATE 5 MG TABLET PO SCH (23:17)
[2016-08-24] MEDS: MONTELUKAST SODIUM 10 MG TABLET PO SCH (23:17)
[2016-08-24] MEDS: HYDROXYUREA 500 MG CAPSULE PO SCH (23:18)
[2016-08-25] MEDS: HYDROMORPHONE HCL INJ/PF 2 MG/ML AMPULE IV SCH ×12 (02:15→23:49)
[2016-08-25] MEDS: KETOROLAC TROMETHAMINE INJ/PF 30 MG/1 ML SDV IV SCH ×2 (02:15→10:26)
[2016-08-25] MEDS: ACETAMINOPHEN 325 MG TABLET PO PRN ×2 (03:50→23:48)
[2016-08-25] MEDS: AMLODIPINE BESYLATE 5 MG TABLET PO SCH (10:27)
[2016-08-25] MEDS: DOCUSATE SODIUM 100 MG CAPSULE PO SCH ×2 (10:27→18:24)
[2016-08-25] MEDS: RIVAROXABAN 15 MG TABLET PO SCH (10:28)
[2016-08-25] MEDS: FOLIC ACID 1 MG TABLET PO SCH (10:29)
[2016-08-25] MEDS: FLUTICASONE NASAL SPRAY 50 MCG/SPRY 120 SPRAY/16 GM NASL SCH ×2 (10:29→22:10)
--- NOTE | 2016-08-25 10:54 | PDOC PROGRESS REPORT ---
Subjective Progress Note for:: 08/25/16 Subjective:: Patient seen on morning rounds. She is up out of bed in the chair. She continues to complain of generalized pain.She states her pain is improved. She is eating better and no longer nauseated. She is tolerating a regular diet. She denies any shortness of breath or dyspnea. She denies any cough. Physical Exam Vital Signs: Temp Pulse Resp BP Pulse Ox 98.4 F 70 16 132/84 H 100 08/25/16 08:00 08/25/16 08:00 08/25/16 08:00 08/25/16 08:00 08/25/16 08:00 Intake & Output 08/24/16 08/25/16 08/26/16 06:59 06:59 06:59 Intake Total 3093 1475 Output Total 4900 2550 Balance -1807 -1075 General appearance: PRESENT: no acute distress, well-developed, well-nourished Head exam: PRESENT: atraumatic, normocephalic Eye exam: PRESENT: conjunctiva pink, EOMI, PERRLA. ABSENT: scleral icterus Ear exam: PRESENT: normal external ear exam Mouth exam: PRESENT: moist, tongue midline Neck exam: ABSENT: carotid bruit, JVD, lymphadenopathy, thyromegaly Respiratory exam: PRESENT: clear to auscultation william. ABSENT: rales, rhonchi, wheezes Cardiovascular exam: PRESENT: RRR. ABSENT: diastolic murmur, rubs, systolic murmur Pulses: PRESENT: normal dorsalis pedis pul Vascular exam: PRESENT: normal capillary refill GI/Abdominal exam: PRESENT: normal bowel sounds, soft. ABSENT: distended, guarding, mass, organolmegaly, rebound, tenderness Rectal exam: PRESENT: deferred Extremities exam: PRESENT: full ROM. ABSENT: calf tenderness, clubbing, pedal edema Neurological exam: PRESENT: alert, awake, oriented to person, oriented to place , oriented to time, oriented to situation, CN II-XII grossly intact. ABSENT: motor sensory deficit Psychiatric exam: PRESENT: appropriate affect, normal mood. ABSENT: homicidal ideation, suicidal ideation Skin exam: PRESENT: dry, intact, warm. ABSENT: cyanosis, rash Results Laboratory Results: 08/21/16 05:50 08/24/16 06:17 Impressions: Guidance Fluoroscopy 08/16/16 00:00 IMPRESSION: SUCCESSFUL PLACEMENT OF A 5 FR DUAL LUMEN 37 CM PICC IN THE left basilic VEIN. Interventional Vascular Procedure 08/16/16 00:00 IMPRESSION: SUCCESSFUL PLACEMENT OF A 5 FR DUAL LUMEN 37 CM PICC IN THE left basilic VEIN. PICC Line Insertion 08/16/16 00:00 IMPRESSION: SUCCESSFUL PLACEMENT OF A 5 FR DUAL LUMEN 37 CM PICC IN THE left basilic VEIN. 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 She is on chronic opioid therapy at home. (4) Major depression Qualifiers: Major depression recurrence: recurrent Major depression episode severity: moderate Is this a current diagnosis for this admission?: YesPlan: Continue current medications (5) Constipation Qualifiers: Constipation type: drug induced constipation Qualified Code(s): K59.03 - Drug induced constipation Is this a current diagnosis for this admission?: YesPlan: Patient states her bowels moved yesterday (6) Diastolic CHF Qualifiers: Congestive heart failure chronicity: chronic Qualified Code(s): I50.32 - Chronic diastolic (congestive) heart failure Is this a current diagnosis for this admission?: YesPlan: Patient is presently euvolemic. She denies dyspnea - Time Time Spent with patient: 25-34 minutes Critical Time spent with patient: 15-24 minutes Anticipated discharge: Home
--- NOTE | 2016-08-25 10:55 | PDOC PROGRESS REPORT ---
Subjective Progress Note for:: 08/21/16 Subjective:: Patient seen on morning rounds. She is resting in bed. She continues to complain of generalized pain.She states she had a rough night because of pain. Nursing staff reports she slept most of the night She states she is not nauseated presently. Bowels moved yesterday after an enema. She is tolerating a regular diet. She denies any shortness of breath or dyspnea. She denies any cough. Physical Exam Vital Signs: Temp Pulse Resp BP Pulse Ox 98.4 F 78 16 132/77 H 100 08/21/16 11:00 08/21/16 11:00 08/21/16 11:00 08/21/16 11:00 08/21/16 11:00 Intake & Output 08/20/16 08/21/16 08/22/16 06:59 06:59 06:59 Intake Total 1042 240 Output Total 1800 300 Balance -758 -60 General appearance: PRESENT: no acute distress, well-developed, well-nourished Head exam: PRESENT: atraumatic, normocephalic Eye exam: PRESENT: conjunctiva pink, EOMI, PERRLA. ABSENT: scleral icterus Ear exam: PRESENT: normal external ear exam Mouth exam: PRESENT: dry mucosa Neck exam: ABSENT: carotid bruit, JVD, lymphadenopathy, thyromegaly Respiratory exam: PRESENT: clear to auscultation william. ABSENT: rales, rhonchi, wheezes Cardiovascular exam: PRESENT: RRR. ABSENT: diastolic murmur, rubs, systolic murmur Pulses: PRESENT: normal dorsalis pedis pul Vascular exam: PRESENT: normal capillary refill GI/Abdominal exam: PRESENT: normal bowel sounds, soft. ABSENT: distended, guarding, mass, organolmegaly, rebound, tenderness Rectal exam: PRESENT: deferred Extremities exam: PRESENT: full ROM. ABSENT: calf tenderness, clubbing, pedal edema Neurological exam: PRESENT: alert, awake, oriented to person, oriented to place , oriented to time, oriented to situation, CN II-XII grossly intact. ABSENT: motor sensory deficit Psychiatric exam: PRESENT: appropriate affect, normal mood. ABSENT: homicidal ideation, suicidal ideation Skin exam: PRESENT: dry, intact, warm. ABSENT: cyanosis, rash Results Laboratory Results: 08/21/16 05:50 08/21/16 05:50 08/21/16 08/21/16 05:50 05:50 WBC 6.1 RBC 2.50 L Hgb 8.4 L Hct 24.4 L MCV 98 H MCH 33.7 H MCHC 34.6 RDW 23.8 H Plt Count 200 Sodium 141.0 Potassium 3.2 L Chloride 106 Carbon Dioxide 29 Anion Gap 6 BUN 2 L Creatinine 0.49 L Est GFR ( Amer) > 60 Est GFR (Non-Af Amer) > 60 Glucose 84 Calcium 8.3 L Magnesium 1.4 L Impressions: Guidance Fluoroscopy 08/16/16 00:00 IMPRESSION: SUCCESSFUL PLACEMENT OF A 5 FR DUAL LUMEN 37 CM PICC IN THE left basilic VEIN. Interventional Vascular Procedure 08/16/16 00:00 IMPRESSION: SUCCESSFUL PLACEMENT OF A 5 FR DUAL LUMEN 37 CM PICC IN THE left basilic VEIN. PICC Line Insertion 08/16/16 00:00 IMPRESSION: SUCCESSFUL PLACEMENT OF A 5 FR DUAL LUMEN 37 CM PICC IN THE left basilic VEIN. 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 Hgb 8.4. Will hold transfusion unless under 7. (2) Hypertension Qualifiers: Hypertension type: essential hypertension Qualified Code(s): I10 - Essential (primary) hypertension Is this a current diagnosis for this admission?: YesPlan: Presently normotensive on current medications (3) Opiate dependence, continuous Is this a current diagnosis for this admission?: YesPlan: Patient is tolerating dilaudid 3 mg IV q2hprn. She is on chronic opioid therapy at home. (4) Major depression Qualifiers: Major depression recurrence: recurrent Major depression episode severity: moderate Is this a current diagnosis for this admission?: YesPlan: Continue current medications (5) Constipation Qualifiers: Constipation type: drug induced constipation Qualified Code(s): K59.03 - Drug induced constipation Is this a current diagnosis for this admission?: YesPlan: Patient states her bowels moved yesterday (6) Diastolic CHF Qualifiers: Congestive heart failure chronicity: chronic Qualified Code(s): I50.32 - Chronic diastolic (congestive) heart failure Is this a current diagnosis for this admission?: YesPlan: Patient is presently euvolemic. She denies dyspnea - Time Time Spent with patient: 25-34 minutes Critical Time spent with patient: 15-24 minutes Medications reviewed and adjusted accordingly: Yes Anticipated discharge: Home
[2016-08-25] MEDS: PROMETHAZINE HCL 25 MG TABLET PO SCH ×2 (12:26→18:25)
[2016-08-25] MEDS: POLYETHYLENE GLYCOL 3350 POWDER 17 GM/1 PACKET PO SCH (12:26)
[2016-08-25] MEDS: CETIRIZINE 10 MG TABLET PO SCH (12:33)
[2016-08-25] MEDS: NORMAL SALINE 1000 ML 1,000 ML IV PRN (12:38)
[2016-08-25] MEDS: AMITRIPTYLINE HCL 50 MG TABLET PO SCH (18:25)
[2016-08-25] MEDS: HYDROXYUREA 500 MG CAPSULE PO SCH (22:11)
[2016-08-25] MEDS: ZOLPIDEM TARTRATE 5 MG TABLET PO SCH (22:12)
[2016-08-25] MEDS: MONTELUKAST SODIUM 10 MG TABLET PO SCH (22:18)
[2016-08-26] MEDS: HYDROMORPHONE HCL INJ/PF 2 MG/ML AMPULE IV SCH ×10 (04:08→22:37)
[2016-08-26] MEDS: PROMETHAZINE HCL 25 MG TABLET PO SCH ×3 (06:51→18:26)
[2016-08-26] MEDS ORDERED: NA PHOS,M-B/NA PHOS,DI-BA (ADULT) 133 ML ENEMA PR PRN (08:19)
--- NOTE | 2016-08-26 08:27 | PDOC PROGRESS REPORT ---
Subjective Subjective:: Patient seen on morning rounds. She is resting in bed. She states pain is much improved. She states she is not nauseated presently and her appetite is improving. She is tolerating a regular diet. She states she is still constipated. Had a small bowel movement yesterday. She denies any shortness of breath, chest pain or dyspnea. She denies any cough. Physical Exam Vital Signs: Temp Pulse Resp BP Pulse Ox 98.2 F 78 18 105/48 L 100 08/26/16 04:00 08/26/16 04:00 08/26/16 04:00 08/26/16 04:00 08/26/16 04:00 Intake & Output 08/25/16 08/26/16 08/27/16 06:59 06:59 06:59 Intake Total 1475 2223 Output Total 2550 3700 Balance -1075 -1477 General appearance: PRESENT: well-developed, well-nourished Head exam: PRESENT: atraumatic, normocephalic Eye exam: PRESENT: conjunctiva pink, EOMI, PERRLA. ABSENT: scleral icterus Ear exam: PRESENT: normal external ear exam Mouth exam: PRESENT: moist, tongue midline Neck exam: ABSENT: carotid bruit, JVD, lymphadenopathy, thyromegaly Respiratory exam: PRESENT: clear to auscultation william. ABSENT: rales, rhonchi, wheezes Cardiovascular exam: PRESENT: RRR. ABSENT: diastolic murmur, rubs, systolic murmur Pulses: PRESENT: normal dorsalis pedis pul Vascular exam: PRESENT: normal capillary refill GI/Abdominal exam: PRESENT: normal bowel sounds, soft. ABSENT: distended, guarding, mass, organolmegaly, rebound, tenderness Rectal exam: PRESENT: deferred Extremities exam: PRESENT: full ROM. ABSENT: calf tenderness, clubbing, pedal edema Neurological exam: PRESENT: alert, awake, oriented to person, oriented to place , oriented to time, oriented to situation, CN II-XII grossly intact. ABSENT: motor sensory deficit Psychiatric exam: PRESENT: appropriate affect, normal mood. ABSENT: homicidal ideation, suicidal ideation Skin exam: PRESENT: dry, intact, warm. ABSENT: cyanosis, rash Results Laboratory Results: 08/21/16 05:50 08/24/16 06:17 Impressions: Guidance Fluoroscopy 08/16/16 00:00 IMPRESSION: SUCCESSFUL PLACEMENT OF A 5 FR DUAL LUMEN 37 CM PICC IN THE left basilic VEIN. Interventional Vascular Procedure 08/16/16 00:00 IMPRESSION: SUCCESSFUL PLACEMENT OF A 5 FR DUAL LUMEN 37 CM PICC IN THE left basilic VEIN. PICC Line Insertion 08/16/16 00:00 IMPRESSION: SUCCESSFUL PLACEMENT OF A 5 FR DUAL LUMEN 37 CM PICC IN THE left basilic VEIN. 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 (2) Hypertension Qualifiers: Hypertension type: essential hypertension Qualified Code(s): I10 - Essential (primary) hypertension Is this a current diagnosis for this admission?: YesPlan: Presently normotensive on current medications (3) Opiate dependence, continuous Is this a current diagnosis for this admission?: YesPlan: Patient is tolerating dilaudid 3 mg IV q2hprn. She is on chronic opioid therapy at home. (4) Major depression Qualifiers: Major depression recurrence: recurrent Major depression episode severity: moderate Is this a current diagnosis for this admission?: YesPlan: Continue current medications (5) Constipation Qualifiers: Constipation type: drug induced constipation Qualified Code(s): K59.03 - Drug induced constipation Is this a current diagnosis for this admission?: YesPlan: Patient states her bowels moved yesterday (6) Diastolic CHF Qualifiers: Congestive heart failure chronicity: chronic Qualified Code(s): I50.32 - Chronic diastolic (congestive) heart failure Is this a current diagnosis for this admission?: Yes - Time Time Spent with patient: 15-24 minutes Critical Time spent with patient: 15-24 minutes Medications reviewed and adjusted accordingly: Yes Anticipated discharge: Home Within: within 24 hours
[2016-08-26] MEDS: AMLODIPINE BESYLATE 5 MG TABLET PO SCH (10:35)
[2016-08-26] MEDS: FOLIC ACID 1 MG TABLET PO SCH (10:35)
[2016-08-26] MEDS: DOCUSATE SODIUM 100 MG CAPSULE PO SCH ×2 (10:35→18:26)
[2016-08-26] MEDS: FLUTICASONE NASAL SPRAY 50 MCG/SPRY 120 SPRAY/16 GM NASL SCH ×2 (10:36→22:37)
[2016-08-26] MEDS: RIVAROXABAN 15 MG TABLET PO SCH (10:37)
[2016-08-26] MEDS: CETIRIZINE 10 MG TABLET PO SCH (10:37)
[2016-08-26] MEDS: POLYETHYLENE GLYCOL 3350 POWDER 17 GM/1 PACKET PO SCH (10:39)
[2016-08-26] MEDS: NORMAL SALINE 1000 ML 1,000 ML IV PRN (14:45)
[2016-08-26] MEDS: AMITRIPTYLINE HCL 50 MG TABLET PO SCH (18:26)
[2016-08-26] MEDS: HYDROXYUREA 500 MG CAPSULE PO SCH (22:37)
[2016-08-26] MEDS: ZOLPIDEM TARTRATE 5 MG TABLET PO SCH (22:37)
[2016-08-26] MEDS: MONTELUKAST SODIUM 10 MG TABLET PO SCH (22:40)
[2016-08-27] MEDS: PROMETHAZINE HCL 25 MG TABLET PO SCH ×2 (00:40→06:20)
[2016-08-27] MEDS: HYDROMORPHONE HCL INJ/PF 2 MG/ML AMPULE IV SCH ×6 (00:41→10:27)
[2016-08-27 04:44] VITALS: BP 124/68
[2016-08-27] MEDS: DOCUSATE SODIUM 100 MG CAPSULE PO SCH (10:27)
[2016-08-27] MEDS: AMLODIPINE BESYLATE 5 MG TABLET PO SCH (10:27)
[2016-08-27] MEDS: FOLIC ACID 1 MG TABLET PO SCH (10:27)
[2016-08-27] MEDS: RIVAROXABAN 15 MG TABLET PO SCH (10:27)
--- NOTE | 2016-08-27 11:29 | PDOC DISCHARGE SUMMARY ---
General - Admit/Disc Date/PCP Admission Date/Primary Care Provider: 08/14/16 03:38 Discharge Date: 08/27/16 - Discharge Diagnosis (1) Sickle-cell disease with pain Is this a current diagnosis for this admission?: YesSummary: Continue current medical management per Dr Cornelius (2) Hypertension Is this a current diagnosis for this admission?: YesSummary: Continue current medications (3) Opiate dependence, continuous Is this a current diagnosis for this admission?: YesSummary: Pain medication per Dr Cornelius (4) Major depression Is this a current diagnosis for this admission?: YesSummary: Continue current treatment (5) Constipation Is this a current diagnosis for this admission?: YesSummary: Miralax, Senna and Colace daily (6) Diastolic CHF Is this a current diagnosis for this admission?: YesSummary: Patient is presently euvolemic - Additional Information Resuscitation Status: Full Code Discharge Diet: Regular Discharge Activity: Activity As Tolerated, Balance Activity w/Rest Home Medications: Amitriptyline HCl [Elavil 25 mg Tablet] 50 mg PO QPM 08/14/16 Amlodipine Besylate [Norvasc 5 mg Tablet] 5 mg PO DAILY 08/14/16 Butalb/Acetaminophen/Caffeine [Fioricet 50-300-40 mg Capsule] 1 cap PO Q6 PRN Cetirizine HCl [Zyrtec] 10 mg PO DAILY 08/14/16 Eszopiclone [Lunesta] 2 mg PO QHS 08/14/16 Fluticasone Propionate [Flonase Nasal [place] 50 Mcg/[place] 16 gm] 1 spray NASL DAILY 08/14/16 Folic Acid [Folvite 1 mg Tablet] 1 mg PO DAILY 08/14/16 Hydroxyurea [Hydrea 500 mg Capsule] 3 cap PO TUTH@1000 08/14/16 Hydroxyurea [Hydrea 500 mg Capsule] 4 cap PO MOWEFR@1000 08/14/16 Hydroxyzine Pamoate [Vistaril 50 mg Capsule] 50 mg PO Q6 PRN 08/14/16 Polyethylene Glycol 3350 [Miralax Powder 17 gm/Packet] 1 packet PO DAILY Promethazine HCl [Phenergan 25 mg Tablet] 25 mg PO Q6 08/14/16 Acetaminophen [Tylenol 325 mg Tablet] 650 mg PO Q4HP PRN tablet 08/27/16 Docusate Sodium [Colace 100 mg Capsule] 100 mg PO BID capsule 08/27/16 Hydromorphone HCl [Dilaudid 2 mg Tablet] 4 mg PO Q8HP PRN #30 tablet 08/27/16 Hydroxyurea [Hydrea 500 mg Capsule] 2,000 mg PO QHS capsule 08/27/16 Rivaroxaban [Xarelto 15 mg Tablet] 15 mg PO DAILY tablet 08/27/16 Sennosides/Docusate 8.6-50 mg [Senna Plus Tablet] 2 each PO BIDP PRN tablet History of Present Illness History of Present Illness: PRANAV JOINER is a 26 year old female well known to our service with history of sickle cell disease, chronic pain and recurrent pain crisis. She was sent to the ER by her sales agent pest control service for admission. Patient had been tolerable to diffuse pain blood work did not show sickle cell crisis at admission. She was referred to the hospitalist service. Dr. Cornelius was consult did for most of her patient management issues. Hospital Course Hospital Course: Patient was admitted to medical floor on hospitalist service. Dr Cornelius was consulted for her sickle cell care. He also did her chronic pain management. She was rehydrated with IV fluids per Dr. Cornelius. Pain medicine was titrated per Dr. Cornelius. She had problems with constipation due to chronic opioid use. She required several enemas during her hospitalization stay. She did receive one unit of packed red blood cells during this stay. Pain was finally able to be decreased to an acceptable level for discharge. She will follow up with Dr San in on week. Physical Exam Vital Signs: Temp Pulse Resp BP Pulse Ox 98.7 F 92 16 124/68 100 08/27/16 08:59 08/27/16 08:59 08/27/16 08:59 08/27/16 08:59 08/27/16 08:59 Intake & Output 08/26/16 08/27/16 08/28/16 06:59 06:59 06:59 Intake Total 2223 803 Output Total 3700 2800 General appearance: PRESENT: no acute distress, well-developed, well-nourished Head exam: PRESENT: atraumatic, normocephalic Eye exam: PRESENT: conjunctiva pink, EOMI, PERRLA. ABSENT: scleral icterus Ear exam: PRESENT: normal external ear exam Mouth exam: PRESENT: moist, tongue midline Neck exam: ABSENT: carotid bruit, JVD, lymphadenopathy, thyromegaly Respiratory exam: PRESENT: clear to auscultation william. ABSENT: rales, rhonchi, wheezes Cardiovascular exam: PRESENT: RRR. ABSENT: diastolic murmur, rubs, systolic murmur Pulses: PRESENT: normal dorsalis pedis pul Rectal exam: PRESENT: deferred Extremities exam: PRESENT: full ROM. ABSENT: calf tenderness, clubbing, pedal edema Neurological exam: PRESENT: alert, awake, oriented to person, oriented to place , oriented to time, oriented to situation, CN II-XII grossly intact. ABSENT: motor sensory deficit Psychiatric exam: PRESENT: appropriate affect, normal mood. ABSENT: homicidal ideation, suicidal ideation Skin exam: PRESENT: dry, intact, warm. ABSENT: cyanosis, rash Results Laboratory Results: 08/21/16 05:50 08/24/16 06:17 Impressions: Guidance Fluoroscopy 08/16/16 00:00 IMPRESSION: SUCCESSFUL PLACEMENT OF A 5 FR DUAL LUMEN 37 CM PICC IN THE left basilic VEIN. Interventional Vascular Procedure 08/16/16 00:00 IMPRESSION: SUCCESSFUL PLACEMENT OF A 5 FR DUAL LUMEN 37 CM PICC IN THE left basilic VEIN. PICC Line Insertion 08/16/16 00:00 IMPRESSION: SUCCESSFUL PLACEMENT OF A 5 FR DUAL LUMEN 37 CM PICC IN THE left basilic VEIN. Qualifiers PATEINT BEING DISCHARGED WITH ANY OF THE FOLLOWING DIAGNOSIS?: No Plan Discharge Plan: Home with family. Follow up with Dr Cornelius and Dr Vazquez as scheduled. Time Spent: Less than 30 Minutes
== END 2016-08-27 11:05 | disposition home or self-care (01) | DRG 812 ==
LOC: ER 15:21 → EH 08-14 03:38 → UNDOADMIN 08-14 03:57 → EH 08-14 03:57 → 2N 08-14 06:40
PROVIDERS: ADMIT Internal Medicine; ATTEND Internal Medicine
PROC: 30233N1 Transfusion of Nonautologous Red Blood Cells into Peripheral Vein, Percutaneous Approach (ICD-10-PCS; principal; 2016-08-16)
PROC: 02HV33Z Insertion of Infusion Device into Superior Vena Cava, Percutaneous Approach (ICD-10-PCS; 2016-08-16)
PROC: B5181ZA Fluoroscopy of Superior Vena Cava using Low Osmolar Contrast, Guidance (ICD-10-PCS; 2016-08-16)
PROC: B548ZZA Ultrasonography of Superior Vena Cava, Guidance (ICD-10-PCS; 2016-08-16)
DX: D57.00 Hb-SS disease with crisis, unspecified (principal); F11.20 Opioid dependence, uncomplicated; I82.A11 Acute embolism and thrombosis of right axillary vein; I47.2 Ventricular tachycardia; I50.32 Chronic diastolic (congestive) heart failure; I10 Essential (primary) hypertension; K21.9 Gastro-esophageal reflux disease without esophagitis; E87.6 Hypokalemia; F32.9 Major depressive disorder, single episode, unspecified; K59.03 Drug induced constipation; T40.2X5A Adverse effect of other opioids, initial encounter; Z86.14 Personal history of Methicillin resistant Staphylococcus aureus infection; Z88.1 Allergy status to other antibiotic agents; Z91.011 Allergy to milk products; Z91.013 Allergy to seafood; Z91.018 Allergy to other foods; Z79.01 Long term (current) use of anticoagulants; Z79.899 Other long term (current) drug therapy
CPT/HCPCS: 36415; 36430; 36569; 76937; 77001; 80048; 80053; 80307; 81001; 82040; 83735; 84703; 85025; 85027; 85045; 86850; 86900; 86901; 86920; 87040; 93005; 93010; 96374; 96375; 96376; 99285; C1769; G0480; J1170; J1200; J1642; J1885; J1940; J2405; J2550; J3480; J3490; J7030; J7620; P9016

== ENCOUNTER 2016-09-23 18:10 | Emergency (ER) | payer MEDICAID ==
[2016-09-23] MEDS ORDERED: NORMAL SALINE 1000 ML 1,000 ML IV ONE ×2 (18:36→20:05)
--- NOTE | 2016-09-23 18:36 | ER Document Report ---
ED Medical Screen (RME) - General Stated Complaint: WEAK Notes: sickle cell anemia with b/l leg pain, passed out yesterday. feel slight headed and dizzy. Nl UOP, tolerating diet I have greeted and performed a rapid initial assessment of this patient. A comprehensive ED assessment and evaluation of the patient, analysis of test results and completion of the medical decision making process will be conducted by additional ED providers. TRAVEL OUTSIDE OF THE [place] IN LAST 30 DAYS: No - Related Data Allergies/Adverse Reactions: Beef Containing Products Allergy (Verified 06/05/16 15:05) ceftriaxone sodium [From Rocephin] Allergy (Verified 06/05/16 15:05) Cephalosporins Allergy (Verified 06/05/16 15:05) milk [Milk] Allergy (Verified 06/05/16 15:05) Shellfish * [Shellfish] Allergy (Verified 06/05/16 15:05) wheat [Wheat] Allergy (Verified 06/05/16 15:05) Past Medical History - Social History Family history: None - Past Medical History Cardiac Medical History: Reports: Hx Hypertension, Hx Heart Murmur Denies: Hx Coronary Artery Disease, Hx Heart Attack Pulmonary Medical History: Reports: Hx Pneumonia Denies: Hx Asthma, Hx Bronchitis, Hx COPD, Hx Tuberculosis Neurological Medical History: Reports: Hx Migraine, Hx Seizures - 1 x as a child. Denies: Hx Cerebrovascular Accident Endocrine Medical History: Denies: Hx Diabetes Mellitus Type 2, Hx Hyperthyroidism, Hx Hypothyroidism Renal/ Medical History: Denies: Hx Peritoneal Dialysis GI Medical History: Reports: Hx Gastroesophageal Reflux Disease Musculoskeltal Medical History: Denies Hx Arthritis, Denies Hx Fibromyalgia Skin Medical History: Reports Hx MRSA Psychiatric Medical History: Reports: Hx Depression Past Surgical History: Reports: Hx Adenoidectomy, Hx Cholecystectomy, Hx Oral Surgery - growth removed from under tongue, Hx Tonsillectomy, Other - Port placement 2 and removal for infection, multiple PICC lines, central l. Denies : Hx Hysterectomy, Hx Kidney (Renal Surgery), Hx Pacemaker - Immunizations Hx Diphtheria, Pertussis, Tetanus Vaccination: Yes
[2016-09-23] MEDS ORDERED: OXYCODONE-ACETAMINOPHEN 5-325 MG TABLET PO ONE (20:06)
[2016-09-23] MEDS ORDERED: ONDANSETRON 4 MG TAB.RAPDIS PO ONE (20:06)
[2016-09-23 21:49] LABS: HEMATOCRIT 29.6 % (36.0-47.0); HEMOGLOBIN 10.2 g/dL (12.0-15.5); MEAN CORPUSCULAR HEMOGLOBIN 35.5 pg (27.0-33.4); MEAN CORPUSCULAR HGB CONC 34.4 g/dL (32.0-36.0); MEAN CORPUSCULAR VOLUME 103 fl (80-97); RED BLOOD COUNT 2.87 10^6/uL (3.72-5.28); RED CELL DISTRIBUTION WIDTH 22.9 % (11.5-14.0)
[2016-09-23 22:13] LABS: BASOPHILS % (MANUAL) 0 % (0-2); EOSINOPHILS % (MANUAL) 1 % (0-6); TOTAL CELLS COUNTED 100
[2016-09-23 22:22] LABS: ANISOCYTOSIS 3+; POIKILOCYTOSIS 2+; POLYCHROMASIA SLIGHT; TOXIC GRANULATION 1+
[2016-09-23 22:23] LABS: OVALOCYTES 1+; STOMATOCYTES SLIGHT; TARGET CELLS SLIGHT; TEAR DROP CELLS 1+
[2016-09-23 22:24] LABS: HOWELL-JOLLY BODIES PRESENT
[2016-09-23 22:42] LABS: LYMPHOCYTES % (MANUAL) 66 % (13-45)
[2016-09-23 23:04] LABS: APPEARANCE,URINE CLEAR; BILIRUBIN,URINE NEGATIVE (NEGATIVE); GLUCOSE, URINE NEGATIVE (NEGATIVE); KETONES,URINE NEGATIVE (NEGATIVE); LEUKOCYTE ESTERASE,URINE NEGATIVE (NEGATIVE); NITRITE,URINE NEGATIVE (NEGATIVE); PROTEIN,URINE NEGATIVE (NEGATIVE); UROBILINOGEN,URINE NEGATIVE mg/dL (<2.0)
--- NOTE | 2016-09-23 23:24 | ER Document Report ---
ED General - General Chief Complaint: Sickle Cell Crisis Stated Complaint: WEAK Time seen by provider: 20:00 Mode of Arrival: Ambulatory Information source: Patient Notes: 26 yo female requesting IV fluid, states she is dehydated, has soreness to both of her legs, but does not believe she is in sickle cell crisis. No abd pain, chest pain, or sob. no fever. No vomiting or diarrhea, no dysuria. gets iv fluid 3 times a week from dr. holloway. TRAVEL OUTSIDE OF THE [place] IN LAST 30 DAYS: No - Related Data Allergies/Adverse Reactions: ceftriaxone sodium [From Rocephin] Allergy (Verified 09/23/16 18:35) Cephalosporins Allergy (Verified 09/23/16 18:35) milk [Milk] Allergy (Verified 09/23/16 18:35) Shellfish * [Shellfish] Allergy (Verified 09/23/16 18:35) wheat [Wheat] Allergy (Verified 09/23/16 18:35) Past Medical History - General Information source: Patient - Social History Smoking Status: Never Smoker Chew tobacco use (# tins/day): No Frequency of alcohol use: Occasional Drug Abuse: None Lives with: Family Family History: DM, Malignancy - Brother with Hodgkin's lymphoma. Maternal grandfather with lung cancer., Other - sickle trait Patient has suicidal ideation: No Patient has homicidal ideation: No - Past Medical History Cardiac Medical History: Reports: Hx Hypertension, Hx Heart Murmur Pulmonary Medical History: Reports: Hx Pneumonia Neurological Medical History: Reports: Hx Migraine, Hx Seizures - 1 x as a child Renal/ Medical History: Denies: Hx Peritoneal Dialysis GI Medical History: Reports: Hx Gastroesophageal Reflux Disease Musculoskeltal Medical History: Reports Other - sickle cell disease Skin Medical History: Reports Hx MRSA Psychiatric Medical History: Reports: Hx Depression Past Surgical History: Reports: Hx Adenoidectomy, Hx Cholecystectomy, Hx Oral Surgery - growth removed from under tongue, Hx Tonsillectomy, Other - Port placement 2 and removal for infection, multiple PICC lines, central l. Denies : Hx Hysterectomy, Hx Kidney (Renal Surgery), Hx Pacemaker - Immunizations Hx Diphtheria, Pertussis, Tetanus Vaccination: Yes Hx Pneumococcal Vaccination: 07/08/11 Review of Systems - Review of Systems Constitutional: See HPI EENT: No symptoms reported Cardiovascular: No symptoms reported Respiratory: No symptoms reported Gastrointestinal: No symptoms reported Genitourinary: No symptoms reported Female Genitourinary: No symptoms reported Musculoskeletal: No symptoms reported Skin: No symptoms reported Hematologic/Lymphatic: No symptoms reported Neurological/Psychological: No symptoms reported Physical Exam - Vital signs Vitals: Temp Pulse Resp BP Pulse Ox 99.0 F 101 H 16 122/74 94 09/23/16 18:25 09/23/16 18:25 09/23/16 18:25 09/23/16 18:25 09/23/16 18:25 Interpretation: Normal - General General appearance: Appears well, Alert - HEENT Head: Normocephalic, Atraumatic Eyes: Normal Conjunctiva: Normal Pupils: PERRL Mucous membranes: Dry Pharynx: Normal Neck: Supple - Respiratory Respiratory status: No respiratory distress Chest status: Nontender Breath sounds: Normal Chest palpation: Normal - Cardiovascular Rhythm: Regular Heart sounds: Normal auscultation Murmur: No - Abdominal Inspection: Normal Distension: No distension Bowel sounds: Normal Tenderness: Nontender. No: Tender Organomegaly: No organomegaly - Back Back: Normal, Nontender, CVA tenderness - Extremities General upper extremity: Normal inspection, Nontender, Normal color, Normal ROM , Normal temperature General lower extremity: Normal inspection, Nontender, Normal color, Normal ROM , Normal temperature, Normal weight bearing. No: Charo's sign - Neurological Neuro grossly intact: Yes Cognition: Normal Orientation: AAOx4 Kelsey Coma Scale Eye Opening: Spontaneous Kelsey Coma Scale Verbal: Oriented Kelsey Coma Scale Motor: Obeys Commands Kelsey Coma Scale Total: 15 Speech: Normal Motor strength normal: LUE, RUE, LLE, RLE Sensory: Normal - Psychological Associated symptoms: Normal affect, Normal mood - Skin Skin Temperature: Warm Skin Moisture: Dry Skin Color: Normal Skin irregularity: negative: Rash Course - Re-evaluation Re-evalutation: 09/24/16 00:18 Patient feels much better after 2 L she does not feel dizzy and she feels extremities ready to go home. The chemistry was hemolyzed which cause an elevation of the potassium of 5.4. No is normal I do not believe through the history or physical exam that she was in crisis. We'll follow up with Dr. Christiano Grimes tomorrow - Vital Signs Vital signs: Temp Pulse Resp BP Pulse Ox 98.3 F 78 16 122/78 99 09/24/16 00:50 09/24/16 00:50 09/24/16 00:50 09/24/16 00:50 09/24/16 00:50 - Laboratory Result Diagrams: 09/23/16 21:15 09/23/16 23:28 Laboratory results interpreted by me: 09/23/16 09/23/16 21:15 23:28 RBC 2.87 L Hgb 10.2 L Hct 29.6 L MCV 103 H MCH 35.5 H RDW 22.9 H Plt Count 467 H Seg Neuts % (Manual) 29 L Lymphocytes % (Manual) 66 H Abs Neuts (Manual) 1.5 L Potassium 5.4 H Chloride 111 H BUN 6 L Creatinine 0.46 L Calcium 8.0 L Total Bilirubin 1.7 H AST 52 H Discharge - Discharge Clinical Impression: dizziness, Sickle cell disease, dehydration Condition: Good Disposition: HOME, SELF-CARE Instructions: Dehydration ([facility]) Additional Instructions: see dr. holloway in the morning for recheck to er any concerns Please complete the patient satisfaction survey if you get one, and return it.. If you do not receive a survey, then you can go to the [facility] website, [email or web address] and place your comments about your very good care. Thank you very much. It was a pleasure being your medical provider today. Referrals: ROXANA ARCHULETA MD [Primary Care Provider] - Follow up as needed BRUNA MENJIVAR MD [ACTIVE STAFF] - Follow up tomorrow
[2016-09-23 23:53] LABS: ALANINE AMINOTRANSFERASE 25 U/L (9-52); ALBUMIN 4.1 g/dL (3.5-5.0); ALKALINE PHOSPHATASE 65 U/L (38-126); ANION GAP 8 (5-19); ASPARTATE AMINO TRANSFERASE 52 U/L (14-36); BILIRUBIN,TOTAL 1.7 mg/dL (0.2-1.3); BLOOD UREA NITROGEN 6 mg/dL (7-20); CARBON DIOXIDE 22 mmol/L (22-30); CHLORIDE 111 mmol/L (98-107); CREATINE KINASE 50 U/L (30-135); CREATININE RESULT 0.46 mg/dL (0.52-1.25); GLUCOSE 92 mg/dL (75-110); SODIUM 140.5 mmol/L (137-145); TOTAL PROTEIN 7.3 g/dL (6.3-8.2)
[2016-09-24] LABS: POTASSIUM 5.4 mmol/L (3.6-5.0)
[2016-09-24 01:12] VITALS: BP 122/78
[2016-09-24 15:04] LABS: PATH REVIEW PATHOLOGIST REVIEWED
== END 2016-09-24 00:50 | disposition home or self-care (01) ==
LOC: ER 18:10
DX: R42 Dizziness and giddiness (principal); D57.1 Sickle-cell disease without crisis; E86.0 Dehydration; I10 Essential (primary) hypertension; Z86.14 Personal history of Methicillin resistant Staphylococcus aureus infection; Z90.49 Acquired absence of other specified parts of digestive tract; Z88.3 Allergy status to other anti-infective agents; Z91.011 Allergy to milk products; Z91.013 Allergy to seafood; Z91.018 Allergy to other foods
CPT/HCPCS: 99284; 96360; 96361; 36415; 82550; 84703; 85025; 85045; 80053; 81001; S0119; J7030

== ENCOUNTER 2016-11-26 11:35 | Emergency (ER) | payer MEDICAID ==
[2016-11-26] MEDS ORDERED: HYDROMORPHONE HCL INJ/PF 2 MG/ML AMPULE IV ONE (12:32)
[2016-11-26] MEDS ORDERED: NORMAL SALINE 1000 ML 1,000 ML IV ONE (12:33)
--- NOTE | 2016-11-26 12:36 | ER Document Report ---
ED Medical Screen (RME) - General Chief Complaint: Sickle Cell Crisis Stated Complaint: BODY ACHES Time Seen by Provider: 11/26/16 12:31 Notes: The patient is a 26-year-old female, past medical history sickle cell disease, chronic pain, presents with her usual low back and leg pain and left cheek pain. She took her 10 mg oxycodone without much relief of her symptoms. She spoke to her bacon slicer Dr. Stark and was told to come to the emergency room. Denies fevers, SOB or chest pain. PE: NAD. NEGARB. I have greeted and performed a rapid initial assessment of this patient. A comprehensive ED assessment and evaluation of the patient, analysis of test results and completion of the medical decision making process will be conducted by additional ED providers. TRAVEL OUTSIDE OF THE [place] IN LAST 30 DAYS: No - Related Data Allergies/Adverse Reactions: ceftriaxone sodium [From Rocephin] Allergy (Verified 11/26/16 11:45) Cephalosporins Allergy (Verified 11/26/16 11:45) milk [Milk] Allergy (Verified 11/26/16 11:45) Shellfish * [Shellfish] Allergy (Verified 11/26/16 11:45) wheat [Wheat] Allergy (Verified 11/26/16 11:45) Home Medications: Current Home Medications Oxycodone HCl [Oxycodone HCl 10 MG Tablet] 10 mg PO Q4H PRN 11/26/16 [History] Past Medical History - General Information source: Patient - Social History Family history: None - Past Medical History Cardiac Medical History: Reports: Hx Hypertension, Hx Heart Murmur Denies: Hx Coronary Artery Disease, Hx Heart Attack Pulmonary Medical History: Reports: Hx Pneumonia Denies: Hx Asthma, Hx Bronchitis, Hx COPD, Hx Tuberculosis Neurological Medical History: Reports: Hx Migraine, Hx Seizures - 1 x as a child. Denies: Hx Cerebrovascular Accident Endocrine Medical History: Denies: Hx Diabetes Mellitus Type 2, Hx Hyperthyroidism, Hx Hypothyroidism Renal/ Medical History: Denies: Hx Peritoneal Dialysis GI Medical History: Reports: Hx Gastroesophageal Reflux Disease Musculoskeltal Medical History: Denies Hx Arthritis, Denies Hx Fibromyalgia Skin Medical History: Reports Hx MRSA Psychiatric Medical History: Reports: Hx Depression Past Surgical History: Reports: Hx Adenoidectomy, Hx Cholecystectomy, Hx Oral Surgery - growth removed from under tongue, Hx Tonsillectomy, Other - Port placement 2 and removal for infection, multiple PICC lines, central l. Denies : Hx Hysterectomy, Hx Kidney (Renal Surgery), Hx Pacemaker - Immunizations Hx Diphtheria, Pertussis, Tetanus Vaccination: Yes Physical Exam - Vital signs Vitals: Temp Pulse Resp BP Pulse Ox 98.4 F 90 18 114/58 L 100 11/26/16 11:47 11/26/16 11:47 11/26/16 11:47 11/26/16 11:47 11/26/16 11:47 Course - Vital Signs Vital signs: Temp Pulse Resp BP Pulse Ox 98.4 F 90 18 114/58 L 100 11/26/16 11:47 11/26/16 11:47 11/26/16 11:47 11/26/16 11:47 11/26/16 11:47
[2016-11-26] MEDS ORDERED: HYDROMORPHONE HCL INJ/PF 2 MG/ML AMPULE IM ONE ×4 (14:07→16:52)
[2016-11-26 14:19] LABS: HEMATOCRIT 27.2 % (36.0-47.0); HEMOGLOBIN 9.2 g/dL (12.0-15.5); HGB HCT DIFFERENCE 0.4; MEAN CORPUSCULAR HEMOGLOBIN 37.9 pg (27.0-33.4); MEAN CORPUSCULAR HGB CONC 33.9 g/dL (32.0-36.0); MEAN CORPUSCULAR VOLUME 112 fl (80-97); RED BLOOD COUNT 2.43 10^6/uL (3.72-5.28); RED CELL DISTRIBUTION WIDTH 25.8 % (11.5-14.0); WHITE BLOOD COUNT 4.5 10^3/uL (4.0-10.5)
--- NOTE | 2016-11-26 14:42 | ER Document Report ---
ED General - General Chief Complaint: Sickle Cell Crisis Stated Complaint: BODY ACHES Time Seen by Provider: 11/26/16 12:31 Mode of Arrival: Ambulatory Information source: Patient Notes: 26-year-old female presents with history of sickle cell disease with concerns for body aches. Patient denies any chest pain shortness of breath fevers. Patient states she is not in chest pain crisis patient took her home medications presents for evaluation TRAVEL OUTSIDE OF THE [place] IN LAST 30 DAYS: No - HPI Onset: Just prior to arrival Onset/Duration: Sudden Quality of pain: Achy Severity: Mild Pain Level: 1 Associated symptoms: Body/muscle aches Exacerbated by: Denies Relieved by: Denies Similar symptoms previously: Yes Recently seen / treated by doctor: Yes - Related Data Allergies/Adverse Reactions: ceftriaxone sodium [From Rocephin] Allergy (Verified 11/26/16 11:45) Cephalosporins Allergy (Verified 11/26/16 11:45) milk [Milk] Allergy (Verified 11/26/16 11:45) Shellfish * [Shellfish] Allergy (Verified 11/26/16 11:45) wheat [Wheat] Allergy (Verified 11/26/16 11:45) Home Medications: Current Home Medications Oxycodone HCl [Oxycodone HCl 10 MG Tablet] 10 mg PO Q4H PRN 11/26/16 [History] Past Medical History - General Information source: Patient - Social History Smoking Status: Never Smoker Cigarette use (# per day): No Chew tobacco use (# tins/day): No Smoking Education Provided: No Frequency of alcohol use: None Drug Abuse: None Family History: DM, Malignancy - Brother with Hodgkin's lymphoma. Maternal grandfather with lung cancer., Other - sickle trait Patient has suicidal ideation: No Patient has homicidal ideation: No - Past Medical History Cardiac Medical History: Reports: Hx Hypertension, Hx Heart Murmur Denies: Hx Coronary Artery Disease, Hx Heart Attack Pulmonary Medical History: Reports: Hx Pneumonia Denies: Hx Asthma, Hx Bronchitis, Hx COPD, Hx Tuberculosis Neurological Medical History: Reports: Hx Migraine, Hx Seizures - 1 x as a child. Denies: Hx Cerebrovascular Accident Endocrine Medical History: Denies: Hx Diabetes Mellitus Type 2, Hx Hyperthyroidism, Hx Hypothyroidism Renal/ Medical History: Denies: Hx Peritoneal Dialysis GI Medical History: Reports: Hx Gastroesophageal Reflux Disease Musculoskeltal Medical History: Denies Hx Arthritis, Denies Hx Fibromyalgia Skin Medical History: Reports Hx MRSA Psychiatric Medical History: Reports: Hx Depression Past Surgical History: Reports: Hx Adenoidectomy, Hx Cholecystectomy, Hx Oral Surgery - growth removed from under tongue, Hx Tonsillectomy, Other - Port placement 2 and removal for infection, multiple PICC lines, central l. Denies : Hx Hysterectomy, Hx Kidney (Renal Surgery), Hx Pacemaker - Immunizations Hx Diphtheria, Pertussis, Tetanus Vaccination: Yes Hx Pneumococcal Vaccination: 07/08/11 Review of Systems - Review of Systems Notes: PHYSICAL EXAMINATION: GENERAL: Well-appearing, well-nourished and in no acute distress. HEAD: Atraumatic, normocephalic. EYES: Pupils equal round and reactive to light, extraocular movements intact, conjunctiva are normal. ENT: Nares patent, oropharynx clear without exudates. Moist mucous membranes. NECK: Normal range of motion, supple without lymphadenopathy LUNGS: Breath sounds clear to auscultation bilaterally and equal. No wheezes rales or rhonchi. HEART: Regular rate and rhythm without murmurs ABDOMEN: Soft, nontender, nondistended abdomen. No guarding, no rebound. No masses appreciated. Female : deferred Musculoskeletal: Normal range of motion, no pitting or edema. No cyanosis. NEUROLOGICAL: Cranial nerves grossly intact. Normal speech, normal gait. Normal sensory, motor exams PSYCH: Normal mood, normal affect. SKIN: Warm, Dry, normal turgor, no rashes or lesions noted. Physical Exam - Vital signs Vitals: Temp Pulse Resp BP Pulse Ox 98.4 F 90 18 114/58 L 100 11/26/16 11:47 11/26/16 11:47 11/26/16 11:47 11/26/16 11:47 11/26/16 11:47 Course - Re-evaluation Re-evalutation: 11/26/16 14:42 Patient is resting comfortably is in no distress, 11/26/16 15:51 multiple blood draws attempted pt given second dose od dilaudid IM dr kent pagejanet 11/26/16 16:04 At cell operator's request I will give 2 mg of Dilaudid IM, I explained that we have been unable to get IV access. Patient understands this is not the treatment i would prefer but we have been unable ot obtain any access at all 11/26/16 16:53 Patient has been reevaluated she states her pain level has improved significantly, she requests 1 more dose pain medication and she wishes to be discharged. She states that she will follow-up with her cell operator in 2 days After performing a Medical Screening Examination, I estimate there is LOW risk for ACUTE APPENDICITIS, BOWEL OBSTRUCTION, ACUTE CHOLECYSTITIS, PERFORATED DIVERTICULITIS, INCARCERATED HERNIA, PANCREATITIS, PELVIC INFLAMMATORY DISEASE, PERFORATED ULCER, ECTOPIC , or TUBO-OVARIAN ABSCESS, thus I consider the discharge disposition reasonable. Also, there is no evidence or peritonitis , sepsis, or toxicity. I have reevaluated this patient multiple times and no significant life threatening changes are noted. The patient and I have discussed the diagnosis and risks, and we agree with discharging home with close follow-up with the understanding that symptoms and presentations can change. We also discussed returning to the Emergency Department immediately if new or worsening symptoms occur. We have discussed the symptoms which are most concerning (e.g., bloody stool, fever, changing or worsening pain, vomiting) that necessitate immediate return. - Vital Signs Vital signs: Temp Pulse Resp BP Pulse Ox 98.4 F 90 18 114/58 L 100 11/26/16 11:47 11/26/16 11:47 11/26/16 11:47 11/26/16 11:47 11/26/16 11:47 - Laboratory Result Diagrams: 11/26/16 14:00 11/26/16 16:22 Laboratory results interpreted by me: 11/26/16 14:00 RBC 2.43 L Hgb 9.2 L Hct 27.2 L MCV 112 H MCH 37.9 H RDW 25.8 H Seg Neuts % (Manual) 37 L Lymphocytes % (Manual) 55 H Discharge - Discharge Clinical Impression: Sickle cell crisis, Body aches Sickle cell anemia Qualifiers: Sickle-cell associated disorders: with unspecified crisis Qualified Code(s): D57.00 - Hb-SS disease with crisis, unspecified Condition: Stable Disposition: HOME, SELF-CARE Instructions: Sickle Cell Crisis ([facility]) Prescriptions: Hydromorphone HCl [Dilaudid 2 mg Tablet] 2 mg PO Q4HP PRN #14 tablet PRN Reason: Referrals: ROXANA ARCHULETA MD [Primary Care Provider] - Follow up as needed BRUNA KENT MD [ACTIVE STAFF] - Follow up tomorrow
[2016-11-26 14:46] LABS: BASOPHILS % (MANUAL) 0 % (0-2); EOSINOPHILS % (MANUAL) 1 % (0-6); LYMPHOCYTES % (MANUAL) 55 % (13-45); NUCLEATED RED BLOOD CELLS 7 /100 WBC (0); TOTAL CELLS COUNTED 100
[2016-11-26 15:04] LABS: ANISOCYTOSIS 3+; HOWELL-JOLLY BODIES PRESENT; OVALOCYTES 1+; POIKILOCYTOSIS 1+; TARGET CELLS 1+; TEAR DROP CELLS SLIGHT
[2016-11-26 16:46] LABS: ALANINE AMINOTRANSFERASE 34 U/L (9-52); ALBUMIN 4.4 g/dL (3.5-5.0); ALKALINE PHOSPHATASE 67 U/L (38-126); ANION GAP 9 (5-19); ASPARTATE AMINO TRANSFERASE 27 U/L (14-36); BILIRUBIN,DIRECT 0.3 mg/dL (0.0-0.4); BILIRUBIN,TOTAL 0.9 mg/dL (0.2-1.3); BLOOD UREA NITROGEN 9 mg/dL (7-20); CALCIUM 9.4 mg/dL (8.4-10.2); CARBON DIOXIDE 24 mmol/L (22-30); CHLORIDE 106 mmol/L (98-107); CREATININE RESULT 0.53 mg/dL (0.52-1.25); GLUCOSE 96 mg/dL (75-110); POTASSIUM 4.2 mmol/L (3.6-5.0); SODIUM 138.6 mmol/L (137-145); TOTAL PROTEIN 7.6 g/dL (6.3-8.2)
[2016-11-26 17:18] VITALS: BP 126/61
== END 2016-11-26 17:15 | disposition home or self-care (01) ==
LOC: ER 11:35
DX: D57.00 Hb-SS disease with crisis, unspecified (principal); M79.1 Myalgia; I10 Essential (primary) hypertension; Z91.011 Allergy to milk products; Z91.013 Allergy to seafood; Z86.14 Personal history of Methicillin resistant Staphylococcus aureus infection; Z90.49 Acquired absence of other specified parts of digestive tract
CPT/HCPCS: 99284; 96372; 36415; 85025; 85045; 80053; J1170

== ENCOUNTER 2017-02-03 09:52 | Inpatient (IN) | payer MEDICAID ==
[2017-02-03] MEDS ORDERED: NORMAL SALINE 1000 ML 1,000 ML IV PRN ×2 (10:00→10:41)
[2017-02-03] MEDS ORDERED: HYDROMORPHONE HCL INJ/PF 2 MG/ML AMPULE IV ONE (10:02)
[2017-02-03] MEDS ORDERED: DIPHENHYDRAMINE HCL 50 MG/ML VIAL IV ONE ×3 (10:02→20:49)
--- NOTE | 2017-02-03 10:04 | ER Document Report ---
ED Medical Screen (RME) - General Chief Complaint: Sickle Cell Crisis Stated Complaint: BODY PAIN Time Seen by Provider: 02/03/17 10:00 Mode of Arrival: Ambulatory Information source: Patient TRAVEL OUTSIDE OF THE [place] IN LAST 30 DAYS: No - HPI Patient complains to provider of: Sickle Cell crisis Onset: Other - 2 weeks Onset/Duration: Gradual, Persistent, Worse Quality of pain: Achy Severity: Moderate Pain Level: 4 Associated Symptoms: Body/muscle aches Exacerbated by: Movement, Walking Relieved by: Denies Similar symptoms previously: Yes Recently seen / treated by doctor: Yes Notes: 02/03/17 10:03 Patient is a 26-year-old female with a history of sickle cell disease, who presents to the emergency room complaining of worsening 2 week history of sickle cell pain consistent with previous pain, she reports pain in her back in her lower extremities, he denies any fever, she does have a little nasal congestion but no chest congestion, no cough, reports she has been trying to treat her pain at home with oxycodone 10 mg tablets but her pain has been getting worse 02/03/17 10:04 Patient's group director is Dr. Cornelius - Related Data Allergies/Adverse Reactions: ceftriaxone sodium [From Rocephin] Allergy (Verified 02/03/17 09:55) Cephalosporins Allergy (Verified 02/03/17 09:55) milk [Milk] Allergy (Verified 02/03/17 09:55) Shellfish * [Shellfish] Allergy (Verified 02/03/17 09:55) wheat [Wheat] Allergy (Verified 02/03/17 09:55) Past Medical History - Social History Chew tobacco use (# tins/day): No Frequency of alcohol use: Occasional Drug Abuse: None Family history: None - Past Medical History Cardiac Medical History: Reports: Hx Hypertension, Hx Heart Murmur Denies: Hx Coronary Artery Disease, Hx Heart Attack Pulmonary Medical History: Reports: Hx Pneumonia Denies: Hx Asthma, Hx Bronchitis, Hx COPD, Hx Tuberculosis Neurological Medical History: Reports: Hx Migraine, Hx Seizures - 1 x as a child. Denies: Hx Cerebrovascular Accident Endocrine Medical History: Denies: Hx Diabetes Mellitus Type 2, Hx Hyperthyroidism, Hx Hypothyroidism Renal/ Medical History: Denies: Hx Peritoneal Dialysis GI Medical History: Reports: Hx Gastroesophageal Reflux Disease Musculoskeltal Medical History: Denies Hx Arthritis, Denies Hx Fibromyalgia Skin Medical History: Reports Hx MRSA Psychiatric Medical History: Reports: Hx Depression Past Surgical History: Reports: Hx Adenoidectomy, Hx Cholecystectomy, Hx Oral Surgery - growth removed from under tongue, Hx Tonsillectomy, Other - Port placement 2 and removal for infection, multiple PICC lines, central l. Denies : Hx Hysterectomy, Hx Kidney (Renal Surgery), Hx Pacemaker - Immunizations Hx Diphtheria, Pertussis, Tetanus Vaccination: Yes Physical Exam - Vital signs Vitals: Temp Pulse Resp BP Pulse Ox 98.7 F 91 16 121/61 100 02/03/17 09:56 02/03/17 09:56 02/03/17 09:56 02/03/17 09:56 02/03/17 09:56 Course - Vital Signs Vital signs: Temp Pulse Resp BP Pulse Ox 98.7 F 91 16 121/61 100 02/03/17 09:56 02/03/17 09:56 02/03/17 09:56 02/03/17 09:56 02/03/17 09:56
[2017-02-03 10:39] LABS: HEMATOCRIT 26.9 % (36.0-47.0); HEMOGLOBIN 9.4 g/dL (12.0-15.5); HGB HCT DIFFERENCE 1.3; MEAN CORPUSCULAR HEMOGLOBIN 43.9 pg (27.0-33.4); MEAN CORPUSCULAR VOLUME 125 fl (80-97); RED BLOOD COUNT 2.15 10^6/uL (3.72-5.28); RED CELL DISTRIBUTION WIDTH 18.5 % (11.5-14.0); WHITE BLOOD COUNT 4.1 10^3/uL (4.0-10.5)
[2017-02-03] MEDS ORDERED: ONDANSETRON HCL INJ/PF 4 MG/2 ML SDV IV ONE (10:41)
--- NOTE | 2017-02-03 10:44 | ER Document Report ---
ED General - General Chief Complaint: Sickle Cell Crisis Stated Complaint: BODY PAIN Time Seen by Provider: 02/03/17 10:00 Mode of Arrival: Ambulatory Information source: Patient Notes: This is a 26-year-old female with a history of sickle cell disease who presents to the emergency room with a typical sickle cell crisis: Pain to the back, lower legs and joints. Patient denies fever, chills, vomiting. She denies any recent infections. TRAVEL OUTSIDE OF THE [place] IN LAST 30 DAYS: No - HPI Onset: Last week Onset/Duration: Gradual Quality of pain: Dull Severity: Moderate Pain Level: 3 Associated symptoms: denies: Chest pain, Fever, Shortness of breath Exacerbated by: Denies Relieved by: Denies Similar symptoms previously: Yes Recently seen / treated by doctor: Yes - Related Data Allergies/Adverse Reactions: ceftriaxone sodium [From Rocephin] Allergy (Verified 02/03/17 09:55) Cephalosporins Allergy (Verified 02/03/17 09:55) milk [Milk] Allergy (Verified 02/03/17 09:55) Shellfish * [Shellfish] Allergy (Verified 02/03/17 09:55) wheat [Wheat] Allergy (Verified 02/03/17 09:55) Past Medical History - General Information source: Patient - Social History Smoking Status: Never Smoker Cigarette use (# per day): No Chew tobacco use (# tins/day): No Frequency of alcohol use: Occasional Drug Abuse: None Lives with: Family Family History: DM, Malignancy - Brother with Hodgkin's lymphoma. Maternal grandfather with lung cancer., Other - sickle trait - Past Medical History Cardiac Medical History: Reports: Hx Hypertension, Hx Heart Murmur Denies: Hx Coronary Artery Disease, Hx Heart Attack Pulmonary Medical History: Reports: Hx Pneumonia Denies: Hx Asthma, Hx Bronchitis, Hx COPD, Hx Tuberculosis Neurological Medical History: Reports: Hx Migraine, Hx Seizures - 1 x as a child. Denies: Hx Cerebrovascular Accident Endocrine Medical History: Denies: Hx Diabetes Mellitus Type 2, Hx Hyperthyroidism, Hx Hypothyroidism Renal/ Medical History: Denies: Hx Peritoneal Dialysis GI Medical History: Reports: Hx Gastroesophageal Reflux Disease Musculoskeltal Medical History: Denies Hx Arthritis, Denies Hx Fibromyalgia Skin Medical History: Reports Hx MRSA Psychiatric Medical History: Reports: Hx Depression Past Surgical History: Reports: Hx Adenoidectomy, Hx Cholecystectomy, Hx Oral Surgery - growth removed from under tongue, Hx Tonsillectomy, Other - Port placement 2 and removal for infection, multiple PICC lines, central l. Denies : Hx Hysterectomy, Hx Kidney (Renal Surgery), Hx Pacemaker - Immunizations Hx Diphtheria, Pertussis, Tetanus Vaccination: Yes Hx Pneumococcal Vaccination: 07/08/11 Review of Systems - Review of Systems Constitutional: denies: Chills, Fever EENT: No symptoms reported Cardiovascular: No symptoms reported Respiratory: No symptoms reported Gastrointestinal: No symptoms reported Genitourinary: No symptoms reported Female Genitourinary: No symptoms reported Musculoskeletal: See HPI Skin: No symptoms reported Hematologic/Lymphatic: No symptoms reported Neurological/Psychological: No symptoms reported Physical Exam - Vital signs Vitals: Temp Pulse Resp BP Pulse Ox 98.7 F 91 16 121/61 100 02/03/17 09:56 02/03/17 09:56 02/03/17 09:56 02/03/17 09:56 02/03/17 09:56 Notes: Physical exam: GENERAL: 26-year-old female, alert and oriented 3, no acute distress HEAD: Atraumatic, normocephalic. EYES: Pupils equal round and reactive to light, extraocular movements intact, sclera anicteric, conjunctiva are normal. ENT: TMs normal, nares patent, oropharynx clear without exudates. Moist mucous membranes. NECK: Normal range of motion, supple without lymphadenopathy or JVD. LUNGS: Breath sounds clear to auscultation bilaterally and equal. No wheezes rales or rhonchi. HEART: Regular rate and rhythm without murmurs, rubs or gallops. ABDOMEN: Soft, normoactive bowel sounds. No tenderness to palpation. No guarding, no rebound. No masses appreciated. EXTREMITIES: Normal range of motion, no pitting or edema. No clubbing or cyanosis. NEUROLOGICAL: Cranial nerves II through XII grossly intact. Normal speech, normal gait. PSYCH: Normal mood, normal affect. SKIN: Warm, Dry, normal turgor, no rashes or lesions noted. Course - Vital Signs Vital signs: Temp Pulse Resp BP Pulse Ox 98.0 F 87 20 113/58 L 98 02/03/17 18:26 02/03/17 18:26 02/03/17 18:26 02/03/17 18:26 02/03/17 18:26 - Laboratory Result Diagrams: 02/03/17 10:04 02/03/17 10:04 Laboratory results interpreted by me: 02/03/17 02/03/17 10:04 10:04 RBC 2.15 L Hgb 9.4 L Hct 26.9 L MCV 125 H MCH 43.9 H RDW 18.5 H Seg Neuts % (Manual) 37 L Band Neutrophils % 2 L Lymphocytes % (Manual) 53 H Monocytes % (Manual) 2 L Abs Neuts (Manual) 1.6 L BUN 4 L Discharge - Discharge Clinical Impression: Sickle cell crisis Condition: Stable Disposition: ADMITTED INPATIENT Admitting Provider: Hospitalist - dR Ma Unit Admitted: Medical Floor
[2017-02-03] MEDS: NORMAL SALINE 1000 ML 1,000 ML IV PRN ×2 (10:47→11:00)
[2017-02-03 10:50] LABS: ALANINE AMINOTRANSFERASE 22 U/L (9-52); ALBUMIN 4.5 g/dL (3.5-5.0); ALKALINE PHOSPHATASE 72 U/L (38-126); ANION GAP 10 (5-19); ASPARTATE AMINO TRANSFERASE 26 U/L (14-36); BILIRUBIN,DIRECT 0.1 mg/dL (0.0-0.4); BILIRUBIN,TOTAL 0.7 mg/dL (0.2-1.3); BLOOD UREA NITROGEN 4 mg/dL (7-20); CARBON DIOXIDE 25 mmol/L (22-30); CHLORIDE 107 mmol/L (98-107); CREATININE RESULT 0.52 mg/dL (0.52-1.25); GLUCOSE 84 mg/dL (75-110); POTASSIUM 3.7 mmol/L (3.6-5.0); SODIUM 142.2 mmol/L (137-145); TOTAL PROTEIN 7.9 g/dL (6.3-8.2)
[2017-02-03 10:56] LABS: BAND NEUTROPHILS % (MANUAL) 2 % (3-5); BASOPHILS % (MANUAL) 0 % (0-2); EOSINOPHILS % (MANUAL) 3 % (0-6); LYMPHOCYTES % (MANUAL) 53 % (13-45); NUCLEATED RED BLOOD CELLS 3 /100 WBC (0); TOTAL CELLS COUNTED 100
[2017-02-03 10:59] LABS: APPEARANCE,URINE SLIGHTLY-CLOUDY; BILIRUBIN,URINE NEGATIVE (NEGATIVE); GLUCOSE, URINE NEGATIVE (NEGATIVE); KETONES,URINE NEGATIVE (NEGATIVE); LEUKOCYTE ESTERASE,URINE NEGATIVE (NEGATIVE); NITRITE,URINE NEGATIVE (NEGATIVE); PROTEIN,URINE NEGATIVE (NEGATIVE); URINE SPECIFIC GRAVITY 1.006; UROBILINOGEN,URINE NEGATIVE mg/dL (<2.0)
[2017-02-03 11:00] LABS: ANISOCYTOSIS 1+; HOWELL-JOLLY BODIES PRESENT; OVALOCYTES SLIGHT; PLATELET CLUMPS PRESENT; POIKILOCYTOSIS 2+; POLYCHROMASIA SLIGHT; TARGET CELLS 1+; TEAR DROP CELLS SLIGHT
[2017-02-03] MEDS: HYDROMORPHONE HCL INJ/PF 2 MG/ML AMPULE IV PRN ×6 (11:00→20:25)
[2017-02-03] MEDS ORDERED: MAGNESIUM HYDROXIDE SUSP 30 ML UDCUP PO PRN (16:42)
[2017-02-03] MEDS ORDERED: ONDANSETRON HCL INJ/PF 4 MG/2 ML SDV IV PRN (16:42)
[2017-02-03] MEDS ORDERED: OXYCODONE HCL IR 5 MG TABLET PO PRN (16:44)
[2017-02-03] MEDS ORDERED: HYDROMORPHONE HCL INJ/PF 2 MG/ML AMPULE IV PRN ×2 (16:44→16:50)
--- NOTE | 2017-02-03 17:44 | PDOC H&P ---
History of Present Illness Admission Date/PCP: 02/03/17 17:11 [facility] Patient complains of: pain History of Present Illness: PRANAV JOINER is a 26 year old female with hx of sickle cell disease and frequent ED or hospital visit for "crisis", 12 in the last 12 months, often with normal retic count who returns to the ED today with complaints of "all over pain but mostly in my legs and lower back' for the past 2 wks. Described as sharp, stabbing pain radiating "all over my body", constant with asctd nausea , worse with movement or "nothing at all", better initially with her home oxycodone up to 4-5x/d but even that isn't holding her anymore. In fact, she ran out of her oxys this morning and isn't able to get a refill until 02/05 and came to the hospital "not for that reason but I knew I couldn't do this at home anymore". she's been treating with increased fluid intake and rest but "pain kept getting worse". she reports recent exposure to family member with "upper respiratory infection" and notes cough with congestion over the past 7-10d, with greenish or white phlegm occasionally specked with blood; she had 2d of diarrhea earlier this week that confined her to the bed which is unusual since she chronically constipated from chronic narcotic use. she denies melena, hematochezia, dysuria , hematuria, bruising, rash, recent travel, swollen glands or sore throat, fevers/chills, emesis, swollen joints. eval in ED shows normal retic count, LFTs including bilirubin, CBC at baseline, normal renal function, clear urine but her pain is not well controlled and we were consulted to admit for further eval and management. Past Medical History Cardiac Medical History: Reports: Hypertension, Heart Murmur Denies: Coronary Artery Disease, Myocardial Infarction Pulmonary Medical History: Reports: Pneumonia Denies: Asthma, Bronchitis, Chronic Obstructive Pulmonary Disease (COPD), Tuberculosis Neurological Medical History: Reports: Migraine, Seizures - 1 x as a child Endocrine Medical History: Denies: Diabetes Mellitus Type 2, Hyperthyroidism, Hypothyroidism GI Medical History: Reports: Gastroesophageal Reflux Disease Musculoskeltal Medical History: Denies: Arthritis, Fibromyalgia Psychiatric Medical History: Reports: Depression Hematology: Reports: Anemia, Sickle Cell Disease Past Surgical History Past Surgical History: Reports: Adenoidectomy, Cholecystectomy, Tonsillectomy, Other - Port placement 2 and removal for infection, multiple PICC lines, central l Denies: Hysterectomy, Pacemaker Social History Information Source: Patient Lives with: Family Smoking Status: Never Smoker Frequency of Alcohol Use: None Hx Recreational Drug Use: No Drugs: None Hx Prescription Drug Abuse: No - Advance Directive Resuscitation Status: Full Code Family History Family History: DM, Malignancy - Brother with Hodgkin's lymphoma. Maternal grandfather with lung cancer., Other - sickle trait Parental Family History Reviewed: Yes Children Family History Reviewed: Yes Sibling(s) Family History Reviewed.: Yes Medication/Allergy Home Medications: Amitriptyline HCl [Elavil 25 mg Tablet] 50 mg PO QPM 08/14/16 Amlodipine Besylate [Norvasc 5 mg Tablet] 5 mg PO DAILY 08/14/16 Butalb/Acetaminophen/Caffeine [Fioricet 50-300-40 mg Capsule] 1 cap PO Q6 PRN Cetirizine HCl [Zyrtec] 10 mg PO DAILY 08/14/16 Eszopiclone [Lunesta] 2 mg PO QHS 08/14/16 Folic Acid [Folvite 1 mg Tablet] 1 mg PO DAILY 08/14/16 Hydroxyurea [Hydrea 500 mg Capsule] 3 cap PO TUTH@1000 08/14/16 Hydroxyurea [Hydrea 500 mg Capsule] 4 cap PO MOWEFR@1000 08/14/16 Hydroxyzine Pamoate [Vistaril 50 mg Capsule] 50 mg PO Q6 PRN 08/14/16 Promethazine HCl [Phenergan 25 mg Tablet] 25 mg PO Q6 08/14/16 Hydromorphone HCl [Dilaudid 2 mg Tablet] 2 mg PO Q4HP PRN #14 tablet 11/26/16 Oxycodone HCl [Oxycodone HCl 10 MG Tablet] 10 mg PO Q4H PRN 11/26/16 Allergies/Adverse Reactions: ceftriaxone sodium [From Rocephin] Allergy (Verified 02/03/17 09:55) Cephalosporins Allergy (Verified 02/03/17 09:55) milk [Milk] Allergy (Verified 02/03/17 09:55) Shellfish * [Shellfish] Allergy (Verified 02/03/17 09:55) wheat [Wheat] Allergy (Verified 02/03/17 09:55) Review of Systems All systems: reviewed and no additional remarkable complaints except as stated - all systems reviewed, see HPI, remaining systems negative Physical Exam Vital Signs: Temp Pulse Resp BP Pulse Ox 98.7 F 91 16 121/61 100 02/03/17 09:56 02/03/17 09:56 02/03/17 09:56 02/03/17 09:56 02/03/17 09:56 General appearance: PRESENT: no acute distress - texting on her phone with lights dimmed, TV playing and resting comfortably when I arrived, well-developed , well-nourished Head exam: PRESENT: atraumatic, normocephalic Eye exam: PRESENT: EOMI. ABSENT: scleral icterus Mouth exam: PRESENT: moist, neck supple Throat exam: ABSENT: post pharyngeal erythema, tonsillar erythema, tonsillar exudate Neck exam: PRESENT: full ROM. ABSENT: carotid bruit, lymphadenopathy, meningismus, tenderness Respiratory exam: PRESENT: clear to auscultation william. ABSENT: accessory muscle use Cardiovascular exam: PRESENT: RRR, systolic murmur - soft murmur at Rt 2nd intercostal Pulses: PRESENT: normal radial pulses, normal dorsalis pedis pul Vascular exam: PRESENT: normal capillary refill GI/Abdominal exam: PRESENT: normal bowel sounds, soft, tenderness - diffuse to palpation but not percussion Extremities exam: PRESENT: calf tenderness, full ROM, tenderness - diffusely tender, unable to localize. ABSENT: clubbing, pedal edema Musculoskeletal exam: PRESENT: ambulatory, full ROM, tenderness - diffusely tender, unable to localize Neurological exam: PRESENT: alert, awake, oriented to person, oriented to place , oriented to time, oriented to situation Psychiatric exam: PRESENT: agitated - irritated and distrusting almost immediately, appropriate affect Focused psych exam: ABSENT: psychomotor agitation Skin exam: PRESENT: dry, warm. ABSENT: pallor, petechiae, rash Results Laboratory Results: 02/03/17 10:04 02/03/17 10:04 MCV 125 fl (80-97) H 02/03/17 10:04 MCH 43.9 pg (27.0-33.4) H 02/03/17 10:04 MCHC 35.0 g/dL (32.0-36.0) 02/03/17 10:04 RDW 18.5 % (11.5-14.0) H 02/03/17 10:04 Seg Neutrophils % Not Reportable 02/03/17 10:04 Lymphocytes % Not Reportable 02/03/17 10:04 Monocytes % Not Reportable 02/03/17 10:04 Eosinophils % Not Reportable 02/03/17 10:04 Basophils % Not Reportable 02/03/17 10:04 Absolute Neutrophils Not Reportable 02/03/17 10:04 Absolute Lymphocytes Not Reportable 02/03/17 10:04 Absolute Monocytes Not Reportable 02/03/17 10:04 Absolute Eosinophils Not Reportable 02/03/17 10:04 Absolute Basophils Not Reportable 02/03/17 10:04 Retic Count (auto) 2.33 % (0.66-2.85) 02/03/17 10:04 Absolute Retic 0.050 10^6/uL (0.028-0.122) 02/03/17 10:04 Chloride 107 mmol/L (98-107) 02/03/17 10:04 Carbon Dioxide 25 mmol/L (22-30) 02/03/17 10:04 Anion Gap 10 (5-19) 02/03/17 10:04 Est GFR ( Amer) > 60 (>60) 02/03/17 10:04 Est GFR (Non-Af Amer) > 60 (>60) 02/03/17 10:04 Glucose 84 mg/dL (75-110) 02/03/17 10:04 Calcium 9.0 mg/dL (8.4-10.2) 02/03/17 10:04 Total Bilirubin 0.7 mg/dL (0.2-1.3) 02/03/17 10:04 AST 26 U/L (14-36) 02/03/17 10:04 ALT 22 U/L (9-52) 02/03/17 10:04 Alkaline Phosphatase 72 U/L (38-126) 02/03/17 10:04 Total Protein 7.9 g/dL (6.3-8.2) 02/03/17 10:04 Albumin 4.5 g/dL (3.5-5.0) 02/03/17 10:04 Urine Color YELLOW 02/03/17 10:04 Urine Appearance SLIGHTLY-CLOUDY 02/03/17 10:04 Urine pH 7.0 (5.0-9.0) 02/03/17 10:04 Ur Specific Perkins 1.006 02/03/17 10:04 Urine Protein NEGATIVE mg/dL (NEGATIVE) 02/03/17 10:04 Urine Glucose (UA) NEGATIVE mg/dL (NEGATIVE) 02/03/17 10:04 Urine Ketones NEGATIVE mg/dL (NEGATIVE) 02/03/17 10:04 Urine Blood NEGATIVE (NEGATIVE) 02/03/17 10:04 Urine Nitrite NEGATIVE (NEGATIVE) 02/03/17 10:04 Ur Leukocyte Esterase NEGATIVE (NEGATIVE) 02/03/17 10:04 Urine WBC (Auto) 1 /HPF 02/03/17 10:04 Urine RBC (Auto) 1 /HPF 02/03/17 10:04 Assessment & Plan - Diagnosis (1) Sickle-cell disease with pain Is this a current diagnosis for this admission?: YesPlan: unclear whether true crisis or not, lab work and physical exam suggest otherwise ; ck LDH, urine hcg and coags due to blood tinged sputum. ck CXR to r/o pulmonary disease. she is requesting dilaudid q1hr so I offered her a SPICE MIXER but she refused, preferring the bolus dosing. she is also requesting placement on 2nd floor as "staff in the rest of hospital have mistreated me", this was brought to the attention of her nurse who passed along to charge nurse. will consult dr kent to manage her pain and crisis in the morning. supportive care for now, IVFs, O2, analgesics and antiemetics. (2) Cough Is this a current diagnosis for this admission?: YesPlan: with reportedly blood tinged sputum; ck coags and cXR, if she will allow. supplemental O2 to keep sats >95%. no clear indication as yet for abx. - Time Time Spent: 50 to 70 Minutes Medications reviewed and adjusted accordingly: Yes - Inpatient Certification Based on my medical assessment, after consideration of the patient's comorbidities, presenting symptoms, or acuity I expect that the services needed warrant INPATIENT care.: Yes I certify that my determination is in accordance with my understanding of Medicare's requirements for reasonable and necessary INPATIENT services [42 CFR 412.3e].: Yes Medical Necessity: Failure to Improve With Outpatient Therapy, Significant Comorbidiites Make Outpatient Treatment Too Risky, Need For IV Fluids, Need for Pain Control, Risk of Complication if Not Cared For in Hospital
--- NOTE | 2017-02-03 17:58 | RADIOLOGY REPORT (SQ) ---
EXAM DESCRIPTION: CHEST PA/LAT COMPLETED DATE/TIME: 02/03/2017 5:49 pm REASON FOR STUDY: cough COMPARISON: 05/06/2016 EXAM PARAMETERS: NUMBER OF VIEWS: two views TECHNIQUE: Digital Frontal and Lateral radiographic views of the chest acquired. RADIATION DOSE: NA LIMITATIONS: none FINDINGS: LUNGS AND PLEURA: No opacities, masses or pneumothorax. No pleural effusion. MEDIASTINUM AND HILAR STRUCTURES: No masses or contour abnormalities. HEART AND VASCULAR STRUCTURES: Heart normal size. No evidence for failure. BONES: No acute findings. HARDWARE: None in the chest. OTHER: No other significant finding. IMPRESSION: NO SIGNIFICANT RADIOGRAPHIC FINDING IN THE CHEST. TECHNICAL DOCUMENTATION: JOB ID: [id number] [employer]- All Rights Reserved
[2017-02-03] MEDS: DOCUSATE SODIUM 100 MG CAPSULE PO SCH (19:30)
[2017-02-03 21:08] LABS: PROTHROMBIN TIME 14.2 SEC (11.4-15.4)
[2017-02-03 21:09] LABS: PARTIAL THROMBOPLASTIN TIME 29.8 SEC (23.5-35.8)
[2017-02-03 21:25] LABS: MAGNESIUM 1.7 mg/dL (1.6-2.3)
[2017-02-04] MEDS: HYDROMORPHONE HCL INJ/PF 2 MG/ML AMPULE IV PRN ×10 (00:04→23:55)
[2017-02-04] MEDS: NORMAL SALINE 1000 ML 1,000 ML IV PRN ×2 (01:49→13:47)
[2017-02-04 06:06] LABS: HEMATOCRIT 23.2 % (36.0-47.0); HEMOGLOBIN 8.3 g/dL (12.0-15.5); HGB HCT DIFFERENCE 1.7; MEAN CORPUSCULAR HEMOGLOBIN 44.5 pg (27.0-33.4); MEAN CORPUSCULAR HGB CONC 35.6 g/dL (32.0-36.0); RED BLOOD COUNT 1.86 10^6/uL (3.72-5.28); RED CELL DISTRIBUTION WIDTH 15.5 % (11.5-14.0); WHITE BLOOD COUNT 5.2 10^3/uL (4.0-10.5)
[2017-02-04 06:24] LABS: ALANINE AMINOTRANSFERASE 22 U/L (9-52); ALBUMIN 3.9 g/dL (3.5-5.0); ALKALINE PHOSPHATASE 62 U/L (38-126); ANION GAP 9 (5-19); ASPARTATE AMINO TRANSFERASE 23 U/L (14-36); BILIRUBIN,DIRECT 0.3 mg/dL (0.0-0.4); BILIRUBIN,TOTAL 0.7 mg/dL (0.2-1.3); BLOOD UREA NITROGEN 3 mg/dL (7-20); CALCIUM 8.5 mg/dL (8.4-10.2); CARBON DIOXIDE 24 mmol/L (22-30); CHLORIDE 108 mmol/L (98-107); GLUCOSE 90 mg/dL (75-110); POTASSIUM 3.9 mmol/L (3.6-5.0); SODIUM 141.4 mmol/L (137-145); TOTAL PROTEIN 6.8 g/dL (6.3-8.2)
[2017-02-04 06:46] LABS: BASOPHILS % (MANUAL) 0 % (0-2); EOSINOPHILS % (MANUAL) 1 % (0-6); LYMPHOCYTES % (MANUAL) 77 % (13-45); TOTAL CELLS COUNTED 100
[2017-02-04 06:54] LABS: POLYCHROMASIA SLIGHT
[2017-02-04 06:55] LABS: ACANTHOCYTES 1+; ANISOCYTOSIS 1+; OVALOCYTES 2+; POIKILOCYTOSIS 3+
[2017-02-04 06:57] LABS: MEAN CORPUSCULAR VOLUME 125 fl (80-97)
[2017-02-04] MEDS: ENOXAPARIN SODIUM INJ 40 MG/0.4 ML DISP.SYRIN SUBCUT SCH (07:44)
[2017-02-04] MEDS: DIPHENHYDRAMINE HCL 25 MG CAPSULE PO PRN ×3 (07:45→19:56)
[2017-02-04 08:03] LABS: FOLATE > 20.00 ng/mL (>2.76)
[2017-02-04] MEDS ORDERED: MAGNESIUM HYDROXIDE SUSP 30 ML UDCUP PO PRN (08:12)
[2017-02-04] MEDS ORDERED: POLYETHYLENE GLYCOL 3350 POWDER 17 GM/1 PACKET PO PRN (08:13)
[2017-02-04] MEDS ORDERED: SENNOSIDES/DOCUSATE 8.6-50 MG 1 EACH TABLET PO PRN (08:13)
--- NOTE | 2017-02-04 08:17 | PDOC CONSULTATION ---
Consultation Consult Date: 02/04/17 Attending physician:: ELIZABETH BRAND Consult reason:: SSD crisis History of Present Illness Admission Date/PCP: 02/03/17 16:37 ROXANA GEREMIAS Patient complains of: Pain, weakness History of Present Illness: 26-year-old female with known history of sickle cell disease, here with crisis, she is actually been doing well as an outpatient, she stated out of the hospital for almost about 6 months, she had pain in the usual areas in the legs , arms, back, she was doing very well up to this point. She is currently on Dilaudid, but seems to be doing okay for her now, we will put on a bowel regimen , K pad for comfort, antiemetics as well as antihistamines as needed. She always loses IV access, so we will preempt this by placing PICC line. She will probably be in for 3-5 days at least. Past Medical History Cardiac Medical History: Reports: Hypertension, Heart Murmur Denies: Coronary Artery Disease, Myocardial Infarction Pulmonary Medical History: Reports: Pneumonia Denies: Asthma, Bronchitis, Chronic Obstructive Pulmonary Disease (COPD), Tuberculosis Neurological Medical History: Reports: Migraine, Seizures - 1 x as a child Endocrine Medical History: Denies: Diabetes Mellitus Type 2, Hyperthyroidism, Hypothyroidism GI Medical History: Reports: Gastroesophageal Reflux Disease Musculoskeltal Medical History: Denies: Arthritis, Fibromyalgia Psychiatric Medical History: Reports: Depression Hematology: Reports: Anemia, Sickle Cell Disease Past Surgical History Past Surgical History: Reports: Adenoidectomy, Cholecystectomy, Tonsillectomy, Other - Port placement 2 and removal for infection, multiple PICC lines, central l Denies: Hysterectomy, Pacemaker Social History Lives with: Family Smoking Status: Never Smoker Frequency of Alcohol Use: Occasional Hx Recreational Drug Use: No Drugs: None Hx Prescription Drug Abuse: No - Advance Directive Resuscitation Status: Full Code Family History Family History: DM, Malignancy - Brother with Hodgkin's lymphoma. Maternal grandfather with lung cancer., Other - sickle trait Parental Family History Reviewed: Yes Children Family History Reviewed: Yes Sibling(s) Family History Reviewed.: Yes Medication/Allergy Home Medications: Butalb/Acetaminophen/Caffeine [Fioricet 50-300-40 mg Capsule] 1 cap PO Q6 PRN Eszopiclone [Lunesta] 2 mg PO QHS 08/14/16 Folic Acid [Folvite 1 mg Tablet] 1 mg PO DAILY 08/14/16 Hydroxyurea [Hydrea 500 mg Capsule] 3 cap PO TUTH@1000 08/14/16 Hydroxyurea [Hydrea 500 mg Capsule] 4 cap PO MOWEFR@1000 08/14/16 Hydroxyzine Pamoate [Vistaril 50 mg Capsule] 50 mg PO Q6 PRN 08/14/16 Promethazine HCl [Phenergan 25 mg Tablet] 25 mg PO Q6 08/14/16 Hydromorphone HCl [Dilaudid 2 mg Tablet] 2 mg PO Q4HP PRN #14 tablet 11/26/16 Oxycodone HCl [Oxycodone HCl 10 MG Tablet] 10 mg PO Q4H PRN 11/26/16 Amitriptyline HCl 25 mg PO DAILY 02/03/17 Amitriptyline HCl 50 mg PO HSP PRN 02/03/17 Amlodipine Besylate 5 mg PO DAILY 02/03/17 Cetirizine HCl [Allergy Relief] 10 mg PO HSP PRN 02/03/17 Fluticasone Propionate [Flonase Nasal Clinton 50 Mcg/Clinton 16 gm] 16 gm NASL DAILY 02/03/17 Allergies/Adverse Reactions: ceftriaxone sodium [From Rocephin] Allergy (Verified 02/03/17 09:55) Cephalosporins Allergy (Verified 02/03/17 09:55) milk [Milk] Allergy (Verified 02/03/17 09:55) Shellfish * [Shellfish] Allergy (Verified 02/03/17 09:55) wheat [Wheat] Allergy (Verified 02/03/17 09:55) Review of Systems Constitutional: PRESENT: fatigue, weakness Nose, Mouth, and Throat: PRESENT: headache(s) Gastrointestinal: PRESENT: abdominal pain, constipation Musculoskeletal: PRESENT: back pain, other - Arm and leg pain Physical Exam Vital Signs: Temp Pulse Resp BP Pulse Ox 97.8 F 85 18 114/68 100 02/04/17 03:38 02/04/17 03:38 02/04/17 03:38 02/04/17 03:38 02/04/17 03:38 Intake & Output 02/03/17 02/04/17 02/05/17 06:59 06:59 06:59 Weight 64.2 kg General appearance: PRESENT: no acute distress, well-developed, well-nourished Head exam: PRESENT: atraumatic, normocephalic Eye exam: PRESENT: conjunctiva pink, EOMI, PERRLA. ABSENT: scleral icterus Ear exam: PRESENT: normal external ear exam Mouth exam: PRESENT: moist, tongue midline Neck exam: ABSENT: carotid bruit, JVD, lymphadenopathy, thyromegaly Respiratory exam: PRESENT: clear to auscultation william. ABSENT: rales, rhonchi, wheezes Cardiovascular exam: PRESENT: RRR. ABSENT: diastolic murmur, rubs, systolic murmur Pulses: PRESENT: normal dorsalis pedis pul Vascular exam: PRESENT: normal capillary refill GI/Abdominal exam: PRESENT: normal bowel sounds, soft. ABSENT: distended, guarding, mass, organolmegaly, rebound, tenderness Rectal exam: PRESENT: deferred Extremities exam: PRESENT: full ROM. ABSENT: calf tenderness, clubbing, pedal edema Neurological exam: PRESENT: alert, awake, oriented to person, oriented to place , oriented to time, oriented to situation, CN II-XII grossly intact. ABSENT: motor sensory deficit Psychiatric exam: PRESENT: appropriate affect, normal mood. ABSENT: homicidal ideation, suicidal ideation Skin exam: PRESENT: dry, intact, warm. ABSENT: cyanosis, rash Results Laboratory Results: 02/04/17 05:40 02/04/17 05:40 02/03/17 02/04/17 02/04/17 20:40 05:40 05:40 WBC 5.2 RBC 1.86 L Hgb 8.3 L Hct 23.2 L MCV 125 H MCH 44.5 H MCHC 35.6 RDW 15.5 H Plt Count 274 Seg Neutrophils % Not Reportable Lymphocytes % Not Reportable Monocytes % Not Reportable Eosinophils % Not Reportable Basophils % Not Reportable Absolute Neutrophils Not Reportable Absolute Lymphocytes Not Reportable Absolute Monocytes Not Reportable Absolute Eosinophils Not Reportable Absolute Basophils Not Reportable Sodium 141.4 Potassium 3.9 Chloride 108 H Carbon Dioxide 24 Anion Gap 9 BUN 3 L Creatinine 0.50 L Est GFR ( Amer) > 60 Est GFR (Non-Af Amer) > 60 Glucose 90 Calcium 8.5 Magnesium 1.7 Total Bilirubin 0.7 AST 23 ALT 22 Alkaline Phosphatase 62 Total Protein 6.8 Albumin 3.9 Vitamin B12 252.0 Folate > 20.00 07/30/17 20:40 Creatine Kinase 191 H Impressions: Chest X-Ray 02/03/17 16:41 IMPRESSION: NO SIGNIFICANT RADIOGRAPHIC FINDING IN THE CHEST. Assessment & Plan - Diagnosis (1) Sickle cell crisis Is this a current diagnosis for this admission?: YesPlan: Patient with sickle cell disease here with crisis, continue supportive measures , we will optimize pain control, she has a bowel regimen. PICC line placement today. (2) Anemia Qualifiers: Hemolytic anemia type: other hemoglobinopathy Is this a current diagnosis for this admission?: YesPlan: At present hemoglobin is in the 8 range, hold on transfusion until he gets 7 or below, I will order that when needed. - Time Time Spent: 50 to 70 Minutes Critical Time spent with patient: 25-34 minutes - Inpatient Certification Based on my medical assessment, after consideration of the patient's comorbidities, presenting symptoms, or acuity I expect that the services needed warrant INPATIENT care.: Yes I certify that my determination is in accordance with my understanding of Medicare's requirements for reasonable and necessary INPATIENT services [42 CFR 412.3e].: Yes Medical Necessity: Need For IV Fluids, Need for Pain Control
--- NOTE | 2017-02-04 09:59 | PDOC PROGRESS REPORT ---
Subjective Progress Note for:: 02/04/17 Subjective:: reason for visit: f/u sickle cell pain crisis hospital course: PRANAV JOINER is a 26 year old female with hx of sickle cell disease and frequent ED or hospital visit for "crisis", 12 in the last 12 months, often with normal retic count who returns to the ED today with complaints of "all over pain but mostly in my legs and lower back' for the past 2 wks. Described as sharp, stabbing pain radiating "all over my body", constant with asctd nausea, worse with movement or "nothing at all", better initially with her home oxycodone up to 4-5x/d but even that isn't holding her anymore. In fact, she ran out of her oxys this morning and isn't able to get a refill until 02/05 and came to the hospital "not for that reason but I knew I couldn't do this at home anymore". she's been treating with increased fluid intake and rest but "pain kept getting worse". she reports recent exposure to family member with "upper respiratory infection" and notes cough with congestion over the past 7-10d, with greenish or white phlegm occasionally specked with blood; she had 2d of diarrhea earlier this week that confined her to the bed which is unusual since she chronically constipated from chronic narcotic use. she denies melena, hematochezia, dysuria, hematuria, bruising, rash, recent travel, swollen glands or sore throat, fevers/chills, emesis, swollen joints. eval in ED shows normal retic count, LFTs including bilirubin, CBC at baseline, normal renal function, clear urine but her pain is not well controlled and we were consulted to admit for further eval and management. CXR shows nothing acute; LDH and CK elevated, coags normal, H/H fell this morning to 8.3 but bilirubin and BUN still normal and no acidosis, no fevers or hypoxia documented. Dr Kent has taken over management of her pain regimen changing my dilaudid 1mg q3HP to 3mg q2HP and after my discussion with him, we will happily step aside and let him lead the way regarding further dose adjustments. The patient is requesting we allow him to do so. He has also preemptively placed a PICC line today as she is difficult venous access. She has no nausea or vomiting. ROS: not obtained, patient does not wish to see or speak to me Physical Exam Vital Signs: Temp Pulse Resp BP Pulse Ox 98.0 F 74 16 111/52 L 100 02/04/17 08:05 02/04/17 08:05 02/04/17 08:05 02/04/17 08:05 02/04/17 08:05 Intake & Output 02/03/17 02/04/17 02/05/17 06:59 06:59 06:59 Weight 64.2 kg nurses notes reviewed; vitals reviewed. exam limited at pt's request. alert and appears comfortable, well nourished, in no distress. breathing easily, ambulating in the room without assistance. Results Laboratory Results: 02/04/17 05:40 02/04/17 05:40 02/03/17 02/04/17 02/04/17 20:40 05:40 05:40 WBC 5.2 RBC 1.86 L Hgb 8.3 L Hct 23.2 L MCV 125 H MCH 44.5 H MCHC 35.6 RDW 15.5 H Plt Count 274 Seg Neutrophils % Not Reportable Lymphocytes % Not Reportable Monocytes % Not Reportable Eosinophils % Not Reportable Basophils % Not Reportable Absolute Neutrophils Not Reportable Absolute Lymphocytes Not Reportable Absolute Monocytes Not Reportable Absolute Eosinophils Not Reportable Absolute Basophils Not Reportable Sodium 141.4 Potassium 3.9 Chloride 108 H Carbon Dioxide 24 Anion Gap 9 BUN 3 L Creatinine 0.50 L Est GFR ( Amer) > 60 Est GFR (Non-Af Amer) > 60 Glucose 90 Calcium 8.5 Magnesium 1.7 Total Bilirubin 0.7 AST 23 ALT 22 Alkaline Phosphatase 62 Total Protein 6.8 Albumin 3.9 Vitamin B12 252.0 Folate > 20.00 02/03/17 20:40 Creatine Kinase 191 H Impressions: Chest X-Ray 02/03/17 16:41 IMPRESSION: NO SIGNIFICANT RADIOGRAPHIC FINDING IN THE CHEST. Status: Image reviewed by me Assessment & Plan - Diagnosis (1) Sickle-cell disease with pain Is this a current diagnosis for this admission?: YesPlan: further management of her pain and anemia per Dr Kent. will continue to follow at the periphery per pt's request, available on as needed basis. (2) Cough Is this a current diagnosis for this admission?: YesPlan: seems to have resolved and no evidence clinically or radiographically of acute respiratory syndrome. no indication for abx - Time Time Spent with patient: Less than 15 minutes Disposition: per dr kent - Plan Summary Plan Summary: further management per dr kent, discharge per dr kent
[2017-02-04] MEDS: DOCUSATE SODIUM 100 MG CAPSULE PO SCH ×2 (11:46→17:53)
[2017-02-04] MEDS: ONDANSETRON HCL INJ/PF 4 MG/2 ML SDV IV PRN ×2 (11:47→19:56)
--- NOTE | 2017-02-04 12:08 | RADIOLOGY REPORT (SQ) ---
EXAM DESCRIPTION: PICC INSERTION; FLUORO/CV PLACEMENT; U/S GUIDE FOR VASCULAR ACCESS COMPLETED DATE/TIME: 02/04/2017 11:38 am; 02/04/2017 11:39 am REASON FOR STUDY: picc line for iv access; IV ACCESS COMPARISON: None. FLUOROSCOPY TIME: 0.5 minutes. 3 images saved to PACS. TECHNIQUE: Fluoroscopic and ultrasound guided PICC placement. LIMITATIONS: None. PROCEDURE: After written consent and assessment were obtained, the patient was brought into the fluo roscopy room and place supine on the table. Ultrasound was used on the patient's left arm for PICC a ccess. The left arm was prepped and draped in a sterile fashion along with the ultrasound probe. The entry site was anesthetized with 1% lidocaine. A 21 gauge 7 cm needle was advanced through the skin a nd into the left basilic vein under live ultrasound guidance. An ultrasound image was saved to PACS confirming access site. A .018 guide wire was then inserted through the needle and into the venous s ystem. The needle was the removed and an 11 blade scalpel was used to make a 1cm skin incision. A 5 fr peel-away sheath was advanced over the wire and into the venous system. A measurement was then mad e using the existing wire and live fluoroscopic guidance. The wire was then removed and the trimmed. The PICC was advanced through the peel-away sheath and into the venous system. The peel-away sheath w as removed and the catheter was adhered to the patients arm with a stat lock. The catheter was then a spirated and flushed and a sterile bandage was placed over the access site. A fluoroscopic spot imag e was saved to PACS confirming the catheter tip within the superior vena cava. IMPRESSION: SUCCESSFUL PLACEMENT OF A 5 FR DUAL LUMEN 39 CM PICC IN THE LEFT BASILIC VEIN. COMMENT: Patient medication list reviewed: Yes- Quality ID# [id number]:Eligible professional attests to doc umenting in the medical record they obtained, updated, or reviewed the patient's current medications. . Quality ID 145: Final reports for procedures using fluoroscopy that document radiation exposure rebecca angy, or exposure time and number of fluorographic images (if radiation exposure indices are not avail able) Quality ID #76: The patient was prepped and draped using maximum sterile barrier technique including cap, mask, sterile gown, sterile gloves, a large sterile sheet, hand hygiene, and 2% Chlorhexidine fo r cutaneous antisepsis. When ultrasound is used, sterile ultrasound techniques are followed requiring sterile gel and sterile probes. TECHNICAL DOCUMENTATION: JOB ID: [id number] [employer]- All Rights Reserved
[2017-02-04 14:23] LABS: PATH REVIEW PATHOLOGIST REVIEWED
--- NOTE | 2017-02-04 15:54 | RADIOLOGY REPORT (SQ) ---
EXAM DESCRIPTION: VENOUS BILATERAL LOWER COMPLETED DATE/TIME: 02/04/2017 3:44 pm REASON FOR STUDY: swelling and pain in the calves; r/o DVT COMPARISON: None. TECHNIQUE: Dynamic and static husain scale and color images acquired of both lower extremity venous sy stems. Selected spectral images acquired with additional compression and augmentation maneuvers. Imag es stored on PACS. LIMITATIONS: None. FINDINGS: RIGHT LEG COMMON FEMORAL AND FEMORAL: Normal phasicity, compression and augmentation. No visualized echogenic m aterial on husain scale. No defects on color images. POPLITEAL: Normal compression and augmentation. No visualized echogenic material on husain scale. No de fects on color images. CALF VESSELS: Normal compression and augmentation. No visualized echogenic material on husain scale. No defects on color image. GSV AND SSV: Normal compression. No visualized echogenic material on husain scale. No defects on color images. ANY DEEP VENOUS INSUFFICIENCY: Not evaluated. ANY EVIDENCE OF POPLITEAL CYST: No. OTHER: No other significant finding. LEFT LEG COMMON FEMORAL AND FEMORAL: Normal phasicity, compression and augmentation. No visualized echogenic m aterial on husain scale. No defects on color images. POPLITEAL: Normal compression and augmentation. No visualized echogenic material on husain scale. No de fects on color images. CALF VESSELS: Normal compression and augmentation. No visualized echogenic material on husain scale. No defects on color images. GSV AND SSV: Normal compression. No visualized echogenic material on husain scale. No defects on color images. ANY DEEP VENOUS INSUFFICIENCY: Not evaluated. ANY EVIDENCE POPLITEAL CYST: No. OTHER: No other significant finding. IMPRESSION: NO EVIDENCE DVT OR SVT IN EITHER LEG. TECHNICAL DOCUMENTATION: JOB ID: [id number] [employer]- All Rights Reserved
[2017-02-04] MEDS ORDERED: [UNRECOGNIZED DRUG - REMARK] PO PRN (23:10)
[2017-02-04] MEDS ORDERED: CETIRIZINE 10 MG TABLET PO PRN (23:24)
[2017-02-04] MEDS ORDERED: AMITRIPTYLINE HCL 25 MG TABLET PO PRN (23:40)
[2017-02-05] MEDS ORDERED: ZOLPIDEM TARTRATE 5 MG TABLET PO ONE (00:15)
[2017-02-05] MEDS ORDERED: AMITRIPTYLINE HCL 50 MG TABLET ONE (00:46)
[2017-02-05] MEDS: NORMAL SALINE 1000 ML 1,000 ML IV PRN (01:38)
[2017-02-05] MEDS: HYDROMORPHONE HCL INJ/PF 2 MG/ML AMPULE IV PRN ×11 (01:39→22:49)
[2017-02-05] MEDS: DIPHENHYDRAMINE HCL 25 MG CAPSULE PO PRN ×2 (01:44→23:17)
[2017-02-05] MEDS: ONDANSETRON HCL INJ/PF 4 MG/2 ML SDV IV PRN ×2 (04:08→16:08)
[2017-02-05 06:36] LABS: ALANINE AMINOTRANSFERASE 31 U/L (9-52); ALBUMIN 4.1 g/dL (3.5-5.0); ALKALINE PHOSPHATASE 74 U/L (38-126); ANION GAP 10 (5-19); ASPARTATE AMINO TRANSFERASE 34 U/L (14-36); BILIRUBIN,DIRECT 0.3 mg/dL (0.0-0.4); BILIRUBIN,TOTAL 1.3 mg/dL (0.2-1.3); BLOOD UREA NITROGEN 2 mg/dL (7-20); CALCIUM 8.6 mg/dL (8.4-10.2); CARBON DIOXIDE 23 mmol/L (22-30); CHLORIDE 106 mmol/L (98-107); CREATININE RESULT 0.47 mg/dL (0.52-1.25); GLUCOSE 92 mg/dL (75-110); POTASSIUM 3.7 mmol/L (3.6-5.0); SODIUM 139.4 mmol/L (137-145); TOTAL PROTEIN 7.2 g/dL (6.3-8.2)
[2017-02-05 06:44] LABS: ABSOLUTE LYMPHOCYTES (AUTO) 1.4 10^3/uL (0.5-4.7); ABSOLUTE MONOCYTES (AUTO) 0.2 10^3/uL (0.1-1.4); ABSOLUTE NEUT (AUTO) 1.9 10^3/uL (1.7-8.2); BASOPHILS % (AUTO) 0.9 % (0-2); EOSINOPHILS % (AUTO) 0.9 % (0-6); HGB HCT DIFFERENCE 1.3; LYMPHOCYTES % (AUTO) 38.5 % (13-45); MEAN CORPUSCULAR HEMOGLOBIN 43.9 pg (27.0-33.4); MEAN CORPUSCULAR HGB CONC 35.5 g/dL (32.0-36.0); MONOCYTES % (AUTO) 6.4 % (3-13); RED BLOOD COUNT 1.61 10^6/uL (3.72-5.28); RED CELL DISTRIBUTION WIDTH 17.5 % (11.5-14.0); SEGMENTED NEUTROPHILS % (AUTO) 53.3 % (42-78); WHITE BLOOD COUNT 3.5 10^3/uL (4.0-10.5)
[2017-02-05 06:48] LABS: HEMOGLOBIN 7.1 g/dL (12.0-15.5); MEAN CORPUSCULAR VOLUME 124 fl (80-97)
[2017-02-05 07:00] LABS: POLYCHROMASIA SLIGHT
[2017-02-05 07:01] LABS: ANISOCYTOSIS 1+; HOWELL-JOLLY BODIES PRESENT; OVALOCYTES 1+; POIKILOCYTOSIS 2+; TARGET CELLS 2+; TEAR DROP CELLS SLIGHT
[2017-02-05 07:02] LABS: PLATELET CLUMPS PRESENT
[2017-02-05] MEDS ORDERED: DIPHENHYDRAMINE HCL 25 MG CAPSULE PO ONE (07:15)
[2017-02-05] MEDS ORDERED: ACETAMINOPHEN 325 MG TABLET PO ONE (07:15)
--- NOTE | 2017-02-05 07:49 | PDOC PROGRESS REPORT ---
Subjective Progress Note for:: 02/05/17 Subjective:: Pt had a rough night, had severe pain, still in pain this am, I increased her dilaudid to 4mg IV q 1 hr, I continued the appropriate home meds. This am, called w/ hb of 7.1 and I ordered 2 units PRBCs. Physical Exam Vital Signs: Temp Pulse Resp BP Pulse Ox 98.2 F 75 16 110/59 L 100 02/05/17 04:32 02/05/17 04:32 02/05/17 04:32 02/05/17 04:32 02/05/17 04:32 Intake & Output 02/04/17 02/05/17 02/06/17 06:59 06:59 06:59 Intake Total 922 Output Total 1500 Balance -578 Weight 64.2 kg 66.3 kg General appearance: PRESENT: no acute distress, well-developed, well-nourished Head exam: PRESENT: atraumatic, normocephalic Eye exam: PRESENT: conjunctiva pink, EOMI, PERRLA. ABSENT: scleral icterus Ear exam: PRESENT: normal external ear exam Mouth exam: PRESENT: moist, tongue midline Neck exam: ABSENT: carotid bruit, JVD, lymphadenopathy, thyromegaly Respiratory exam: PRESENT: clear to auscultation william. ABSENT: rales, rhonchi, wheezes Cardiovascular exam: PRESENT: RRR. ABSENT: diastolic murmur, rubs, systolic murmur Pulses: PRESENT: normal dorsalis pedis pul Vascular exam: PRESENT: normal capillary refill GI/Abdominal exam: PRESENT: normal bowel sounds, soft. ABSENT: distended, guarding, mass, organolmegaly, rebound, tenderness Rectal exam: PRESENT: deferred Extremities exam: PRESENT: full ROM. ABSENT: calf tenderness, clubbing, pedal edema Neurological exam: PRESENT: alert, awake, oriented to person, oriented to place , oriented to time, oriented to situation, CN II-XII grossly intact. ABSENT: motor sensory deficit Psychiatric exam: PRESENT: appropriate affect, normal mood. ABSENT: homicidal ideation, suicidal ideation Skin exam: PRESENT: dry, intact, warm. ABSENT: cyanosis, rash Results Laboratory Results: 02/05/17 05:55 02/05/17 05:55 02/04/17 02/04/17 02/05/17 05:40 05:40 05:55 WBC 5.2 3.5 L RBC 1.86 L 1.61 L Hgb 8.3 L 7.1 L Hct 23.2 L 20.0 L MCV 125 H 124 H MCH 44.5 H 43.9 H MCHC 35.6 35.5 RDW 15.5 H 17.5 H Plt Count 274 127 L Seg Neutrophils % 53.3 Lymphocytes % 38.5 Monocytes % 6.4 Eosinophils % 0.9 Basophils % 0.9 Absolute Neutrophils 1.9 Absolute Lymphocytes 1.4 Absolute Monocytes 0.2 Absolute Eosinophils 0.0 Absolute Basophils 0.0 Sodium 141.4 Potassium 3.9 Chloride 108 H Carbon Dioxide 24 Anion Gap 9 BUN 3 L Creatinine 0.50 L Est GFR ( Amer) > 60 Est GFR (Non-Af Amer) > 60 Glucose 90 Calcium 8.5 Total Bilirubin 0.7 AST 23 ALT 22 Alkaline Phosphatase 62 Total Protein 6.8 Albumin 3.9 Vitamin B12 252.0 Folate > 20.00 02/05/17 05:55 WBC RBC Hgb Hct MCV MCH MCHC RDW Plt Count Seg Neutrophils % Lymphocytes % Monocytes % Eosinophils % Basophils % Absolute Neutrophils Absolute Lymphocytes Absolute Monocytes Absolute Eosinophils Absolute Basophils Sodium 139.4 Potassium 3.7 Chloride 106 Carbon Dioxide 23 Anion Gap 10 BUN 2 L Creatinine 0.47 L Est GFR ( Amer) > 60 Est GFR (Non-Af Amer) > 60 Glucose 92 Calcium 8.6 Total Bilirubin 1.3 AST 34 ALT 31 Alkaline Phosphatase 74 Total Protein 7.2 Albumin 4.1 Vitamin B12 Folate 02/03/17 20:40 Creatine Kinase 191 H Impressions: Chest X-Ray 02/03/17 16:41 IMPRESSION: NO SIGNIFICANT RADIOGRAPHIC FINDING IN THE CHEST. Guidance Fluoroscopy 02/04/17 00:00 IMPRESSION: SUCCESSFUL PLACEMENT OF A 5 FR DUAL LUMEN 39 CM PICC IN THE LEFT BASILIC VEIN. Interventional Vascular Procedure 02/04/17 00:00 IMPRESSION: SUCCESSFUL PLACEMENT OF A 5 FR DUAL LUMEN 39 CM PICC IN THE LEFT BASILIC VEIN. PICC Line Insertion 02/04/17 00:00 IMPRESSION: SUCCESSFUL PLACEMENT OF A 5 FR DUAL LUMEN 39 CM PICC IN THE LEFT BASILIC VEIN. Venous Doppler Study 02/04/17 00:00 IMPRESSION: NO EVIDENCE DVT OR SVT IN EITHER LEG. Assessment & Plan - Diagnosis (1) Sickle cell crisis Is this a current diagnosis for this admission?: YesPlan: Con't to be severe, cont w/ supportive meds, pain control, again encouraged bowel regimen, con't hydration, changed pain meds overnight, plan to con't w/ same pain regimen today (2) Anemia Qualifiers: Hemolytic anemia type: other hemoglobinopathy Is this a current diagnosis for this admission?: YesPlan: 2nd SS dx crisis, plan for 2 units PRBC to be given today. - Time Time Spent with patient: 35 or more minutes Critical Time spent with patient: 35 or more minutes Medications reviewed and adjusted accordingly: Yes Disposition: Spend >35 min in coordination of care - Inpatient Certification Based on my medical assessment, after consideration of the patient's comorbidities, presenting symptoms, or acuity I expect that the services needed warrant INPATIENT care.: Yes I certify that my determination is in accordance with my understanding of Medicare's requirements for reasonable and necessary INPATIENT services [42 CFR 412.3e].: Yes Medical Necessity: Need For IV Fluids, Need for Pain Control, Other - blood transfusion
[2017-02-05] MEDS: ENOXAPARIN SODIUM INJ 40 MG/0.4 ML DISP.SYRIN SUBCUT SCH (08:15)
[2017-02-05] MEDS: IPRATROPIUM/ALBUTEROL 0.5-2.5 MG/3 ML AMPUL NEB PRN ×2 (09:25→20:28)
[2017-02-05] MEDS: AMLODIPINE BESYLATE 5 MG TABLET PO SCH (09:28)
[2017-02-05] MEDS: AMITRIPTYLINE HCL 25 MG TABLET PO SCH (09:29)
[2017-02-05] MEDS: FOLIC ACID 1 MG TABLET PO SCH (09:29)
[2017-02-05] MEDS: DOCUSATE SODIUM 100 MG CAPSULE PO SCH ×2 (09:29→17:43)
[2017-02-05] MEDS ORDERED: FUROSEMIDE INJ/PF 20 MG/2 ML SDV IV ONE ×2 (10:00→15:00)
--- NOTE | 2017-02-05 11:24 | PDOC PROGRESS REPORT ---
Subjective Progress Note for:: 02/05/17 Subjective:: GONZALO JOINER is a 26 year old female with hx of sickle cell disease and frequent ED or hospital visit for "crisis", 12 in the last 12 months, often with normal retic count who presented with complaints of "all over pain but mostly in my legs and lower back' for the past 2 wks. Described as sharp, stabbing pain radiating "all over my body", constant with asctd nausea, worse with movement or "nothing at all", better initially with her home oxycodone up to 4-5x/d but even that isn't holding her anymore. In fact, she ran out of her pain medications this morning and isn't able to get a refill until 02/05 and came to the hospital "not for that reason but I knew I couldn't do this at home anymore". she's been treating with increased fluid intake and rest but "pain kept getting worse". she reports recent exposure to family member with "upper respiratory infection" and notes cough with congestion over the past 7-10d, with greenish or white phlegm occasionally specked with blood; she had 2d of diarrhea earlier this week that confined her to the bed which is unusual since she chronically constipated from chronic narcotic use. she denies melena, hematochezia, dysuria, hematuria, bruising, rash, recent travel, swollen glands or sore throat, fevers/chills, emesis, swollen joints. She is being followed by her [facility] mobile, Dr Cornelius as well. Who has ordered blood transfusion for her today. Physical Exam Vital Signs: Temp Pulse Resp BP Pulse Ox 97.8 F 100 20 101/56 L 90 L 02/05/17 07:32 02/05/17 09:16 02/05/17 09:16 02/05/17 07:32 02/05/17 09:16 Intake & Output 02/04/17 02/05/17 02/06/17 06:59 06:59 06:59 Intake Total 922 0 Output Total 1500 Balance -578 0 Weight 64.2 kg 66.3 kg General appearance: PRESENT: no acute distress, well-developed, well-nourished Head exam: PRESENT: atraumatic, normocephalic Eye exam: PRESENT: conjunctiva pink, conjunctiva pale, EOMI, PERRLA. ABSENT: scleral icterus Ear exam: PRESENT: normal external ear exam Mouth exam: PRESENT: moist, tongue midline Neck exam: ABSENT: carotid bruit, JVD, lymphadenopathy, thyromegaly Respiratory exam: PRESENT: clear to auscultation william, symmetrical, unlabored Cardiovascular exam: PRESENT: RRR. ABSENT: diastolic murmur, rubs, systolic murmur Pulses: PRESENT: normal dorsalis pedis pul Vascular exam: PRESENT: normal capillary refill GI/Abdominal exam: PRESENT: normal bowel sounds, soft. ABSENT: distended, guarding, mass, organolmegaly, rebound, tenderness Rectal exam: PRESENT: deferred Extremities exam: PRESENT: calf tenderness, full ROM, tenderness - lower back Musculoskeletal exam: PRESENT: ambulatory Neurological exam: PRESENT: alert, awake, oriented to person, oriented to place , oriented to time, oriented to situation, CN II-XII grossly intact. ABSENT: motor sensory deficit Psychiatric exam: PRESENT: appropriate affect, normal mood. ABSENT: homicidal ideation, suicidal ideation Skin exam: PRESENT: dry, intact, warm. ABSENT: cyanosis, rash Results Laboratory Results: 02/05/17 05:55 02/05/17 05:55 02/04/17 02/05/17 02/05/17 05:40 05:55 05:55 WBC 5.2 3.5 L RBC 1.86 L 1.61 L Hgb 8.3 L 7.1 L Hct 23.2 L 20.0 L MCV 125 H 124 H MCH 44.5 H 43.9 H MCHC 35.6 35.5 RDW 15.5 H 17.5 H Plt Count 274 127 L Seg Neutrophils % 53.3 Lymphocytes % 38.5 Monocytes % 6.4 Eosinophils % 0.9 Basophils % 0.9 Absolute Neutrophils 1.9 Absolute Lymphocytes 1.4 Absolute Monocytes 0.2 Absolute Eosinophils 0.0 Absolute Basophils 0.0 Sodium 139.4 Potassium 3.7 Chloride 106 Carbon Dioxide 23 Anion Gap 10 BUN 2 L Creatinine 0.47 L Est GFR ( Amer) > 60 Est GFR (Non-Af Amer) > 60 Glucose 92 Calcium 8.6 Total Bilirubin 1.3 AST 34 ALT 31 Alkaline Phosphatase 74 Total Protein 7.2 Albumin 4.1 Blood Type Antibody Screen 02/05/17 07:50 WBC RBC Hgb Hct MCV MCH MCHC RDW Plt Count Seg Neutrophils % Lymphocytes % Monocytes % Eosinophils % Basophils % Absolute Neutrophils Absolute Lymphocytes Absolute Monocytes Absolute Eosinophils Absolute Basophils Sodium Potassium Chloride Carbon Dioxide Anion Gap BUN Creatinine Est GFR ( Amer) Est GFR (Non-Af Amer) Glucose Calcium Total Bilirubin AST ALT Alkaline Phosphatase Total Protein Albumin Blood Type O POSITIVE Antibody Screen NEGATIVE 02/03/17 20:40 Creatine Kinase 191 H Impressions: Chest X-Ray 02/03/17 16:41 IMPRESSION: NO SIGNIFICANT RADIOGRAPHIC FINDING IN THE CHEST. Guidance Fluoroscopy 02/04/17 00:00 IMPRESSION: SUCCESSFUL PLACEMENT OF A 5 FR DUAL LUMEN 39 CM PICC IN THE LEFT BASILIC VEIN. Interventional Vascular Procedure 02/04/17 00:00 IMPRESSION: SUCCESSFUL PLACEMENT OF A 5 FR DUAL LUMEN 39 CM PICC IN THE LEFT BASILIC VEIN. PICC Line Insertion 02/04/17 00:00 IMPRESSION: SUCCESSFUL PLACEMENT OF A 5 FR DUAL LUMEN 39 CM PICC IN THE LEFT BASILIC VEIN. Venous Doppler Study 02/04/17 00:00 IMPRESSION: NO EVIDENCE DVT OR SVT IN EITHER LEG. Assessment & Plan - Diagnosis (1) Anemia Qualifiers: Hemolytic anemia type: other hemoglobinopathy Is this a current diagnosis for this admission?: YesPlan: Stable (2) Dyspnea Qualifiers: Dyspnea type: dyspnea on exertion Qualified Code(s): R06.09 - Other forms of dyspnea (4) Sickle cell crisis Is this a current diagnosis for this admission?: YesPlan: Pain management per hematology (5) Constipation Qualifiers: Constipation type: drug induced constipation Qualified Code(s): K59.03 - Drug induced constipation (6) DVT prophylaxis Is this a current diagnosis for this admission?: Yes (7) Hypertension Qualifiers: Hypertension type: essential hypertension Qualified Code(s): I10 - Essential (primary) hypertension Is this a current diagnosis for this admission?: YesPlan: Presently normotensive on current medications - Time Time Spent with patient: 25-34 minutes Critical Time spent with patient: 15-24 minutes Smoking Cessation Education: 3 to 10 minutes Medications reviewed and adjusted accordingly: Yes Anticipated discharge: Home
[2017-02-05] MEDS ORDERED: ZOLPIDEM TARTRATE 5 MG TABLET PO SCH (22:00)
[2017-02-05] MEDS ORDERED: (PENDING PHARMACY ID) (Eszopiclone [Lunesta] 2 MG) PO SCH (22:00)
[2017-02-06] MEDS: ONDANSETRON HCL INJ/PF 4 MG/2 ML SDV IV PRN ×3 (00:14→22:44)
[2017-02-06] MEDS: HYDROMORPHONE HCL INJ/PF 2 MG/ML AMPULE IV PRN ×13 (00:15→22:45)
[2017-02-06] MEDS ORDERED: DIPHENHYDRAMINE HCL 25 MG CAPSULE PO PRN (05:00)
[2017-02-06] MEDS ORDERED: ACETAMINOPHEN 325 MG TABLET PO PRN (05:00)
[2017-02-06 06:40] LABS: HEMATOCRIT 27.2 % (36.0-47.0); HGB HCT DIFFERENCE 2.2; MEAN CORPUSCULAR HGB CONC 36.2 g/dL (32.0-36.0); RED BLOOD COUNT 2.53 10^6/uL (3.72-5.28); RED CELL DISTRIBUTION WIDTH 29.4 % (11.5-14.0)
[2017-02-06 07:02] LABS: HEMOGLOBIN 9.8 g/dL (12.0-15.5); MEAN CORPUSCULAR VOLUME 108 fl (80-97)
[2017-02-06 07:06] LABS: BASOPHILS % (MANUAL) 0 % (0-2); EOSINOPHILS % (MANUAL) 1 % (0-6); LYMPHOCYTES % (MANUAL) 45 % (13-45); TOTAL CELLS COUNTED 100
[2017-02-06 07:08] LABS: ANISOCYTOSIS 4+; POIKILOCYTOSIS SLIGHT; POLYCHROMASIA SLIGHT; TARGET CELLS SLIGHT; TEAR DROP CELLS SLIGHT; TOXIC VACUOLATION PRESENT
[2017-02-06 07:09] LABS: WHITE BLOOD COUNT 3.5 10^3/uL (4.0-10.5)
--- NOTE | 2017-02-06 07:59 | PDOC PROGRESS REPORT ---
Subjective Progress Note for:: 02/06/17 Subjective:: Slightly improved, continue with current approach Physical Exam Vital Signs: Temp Pulse Resp BP Pulse Ox 98.6 F 93 18 134/75 H 97 02/06/17 03:47 02/06/17 03:47 02/06/17 03:47 02/06/17 03:47 02/06/17 03:47 Intake & Output 02/05/17 02/06/17 02/07/17 06:59 06:59 06:59 Intake Total 922 2540 Output Total 1500 1700 Balance -578 840 Weight 66.3 kg 67.1 kg General appearance: PRESENT: no acute distress, well-developed, well-nourished Head exam: PRESENT: atraumatic, normocephalic Eye exam: PRESENT: conjunctiva pink, EOMI, PERRLA. ABSENT: scleral icterus Ear exam: PRESENT: normal external ear exam Mouth exam: PRESENT: moist, tongue midline Neck exam: ABSENT: carotid bruit, JVD, lymphadenopathy, thyromegaly Respiratory exam: PRESENT: clear to auscultation william. ABSENT: rales, rhonchi, wheezes Cardiovascular exam: PRESENT: RRR. ABSENT: diastolic murmur, rubs, systolic murmur Pulses: PRESENT: normal dorsalis pedis pul Vascular exam: PRESENT: normal capillary refill GI/Abdominal exam: PRESENT: normal bowel sounds, soft. ABSENT: distended, guarding, mass, organolmegaly, rebound, tenderness Rectal exam: PRESENT: deferred Extremities exam: PRESENT: full ROM. ABSENT: calf tenderness, clubbing, pedal edema Neurological exam: PRESENT: alert, awake, oriented to person, oriented to place , oriented to time, oriented to situation, CN II-XII grossly intact. ABSENT: motor sensory deficit Psychiatric exam: PRESENT: appropriate affect, normal mood. ABSENT: homicidal ideation, suicidal ideation Skin exam: PRESENT: dry, intact, warm. ABSENT: cyanosis, rash Results Laboratory Results: 02/06/17 06:25 02/05/17 05:55 02/05/17 02/06/17 07:50 06:25 WBC 3.5 L RBC 2.53 L Hgb 9.8 L D Hct 27.2 L MCV 108 H D MCH 39.0 H MCHC 36.2 H RDW 29.4 H Plt Count 215 Seg Neutrophils % Not Reportable Lymphocytes % Not Reportable Monocytes % Not Reportable Eosinophils % Not Reportable Basophils % Not Reportable Absolute Neutrophils Not Reportable Absolute Lymphocytes Not Reportable Absolute Monocytes Not Reportable Absolute Eosinophils Not Reportable Absolute Basophils Not Reportable Blood Type O POSITIVE Antibody Screen NEGATIVE 02/03/17 20:40 Creatine Kinase 191 H Impressions: Chest X-Ray 02/03/17 16:41 IMPRESSION: NO SIGNIFICANT RADIOGRAPHIC FINDING IN THE CHEST. Guidance Fluoroscopy 02/04/17 00:00 IMPRESSION: SUCCESSFUL PLACEMENT OF A 5 FR DUAL LUMEN 39 CM PICC IN THE LEFT BASILIC VEIN. Interventional Vascular Procedure 02/04/17 00:00 IMPRESSION: SUCCESSFUL PLACEMENT OF A 5 FR DUAL LUMEN 39 CM PICC IN THE LEFT BASILIC VEIN. PICC Line Insertion 02/04/17 00:00 IMPRESSION: SUCCESSFUL PLACEMENT OF A 5 FR DUAL LUMEN 39 CM PICC IN THE LEFT BASILIC VEIN. Venous Doppler Study 02/04/17 00:00 IMPRESSION: NO EVIDENCE DVT OR SVT IN EITHER LEG. Assessment & Plan - Diagnosis (1) Sickle cell crisis Is this a current diagnosis for this admission?: YesPlan: Continue with current approach, we will keep the level pain medication the same , continue with other supportive measures. (2) Anemia Qualifiers: Hemolytic anemia type: other hemoglobinopathy Is this a current diagnosis for this admission?: YesPlan: Hemoglobin improved post transfusion, continue to monitor, we can monitor every other day. - Time Time Spent with patient: 15-24 minutes Critical Time spent with patient: 15-24 minutes - Inpatient Certification Based on my medical assessment, after consideration of the patient's comorbidities, presenting symptoms, or acuity I expect that the services needed warrant INPATIENT care.: Yes I certify that my determination is in accordance with my understanding of Medicare's requirements for reasonable and necessary INPATIENT services [42 CFR 412.3e].: Yes Medical Necessity: Need For IV Fluids, Need for Pain Control
[2017-02-06 08:26] LABS: NUCLEATED RED BLOOD CELLS 16 /100 WBC (0)
[2017-02-06] MEDS: ENOXAPARIN SODIUM INJ 40 MG/0.4 ML DISP.SYRIN SUBCUT SCH (08:43)
[2017-02-06] MEDS ORDERED: BUTALB/ACETAMINOPHEN/CAFFEINE 1 TAB EACH PO PRN (08:51)
[2017-02-06] MEDS: FOLIC ACID 1 MG TABLET PO SCH (10:01)
[2017-02-06] MEDS: AMLODIPINE BESYLATE 5 MG TABLET PO SCH (10:02)
[2017-02-06] MEDS: DOCUSATE SODIUM 100 MG CAPSULE PO SCH ×2 (10:03→17:09)
[2017-02-06] MEDS: AMITRIPTYLINE HCL 25 MG TABLET PO SCH (10:14)
[2017-02-06] MEDS: NORMAL SALINE 1000 ML 1,000 ML IV PRN (15:58)
--- NOTE | 2017-02-06 16:02 | PDOC PROGRESS REPORT ---
Subjective Progress Note for:: 02/06/17 Subjective:: Patient is seen on morning rounds. She is standing at the sink brushing her teeth. She continues to complain of pain in her back and bilateral lower extremities. She states she has no appetite. She is constipated and has not had a bowel movement in 3 days. She denies nausea. She denies any other complaints at the present time. Physical Exam Vital Signs: Temp Pulse Resp BP Pulse Ox 98.0 F 99 14 122/57 L 96 02/06/17 07:25 02/06/17 11:15 02/06/17 11:15 02/06/17 07:25 02/06/17 11:15 Intake & Output 02/05/17 02/06/17 02/07/17 06:59 06:59 06:59 Intake Total 922 2540 Output Total 1500 1700 Balance -578 840 Weight 66.3 kg 67.1 kg General appearance: PRESENT: no acute distress, well-developed, well-nourished Head exam: PRESENT: atraumatic, normocephalic Eye exam: PRESENT: conjunctiva pale, EOMI, PERRLA. ABSENT: scleral icterus Ear exam: PRESENT: normal external ear exam Mouth exam: PRESENT: moist, tongue midline Neck exam: ABSENT: carotid bruit, JVD, lymphadenopathy, thyromegaly Respiratory exam: PRESENT: clear to auscultation william. ABSENT: rales, rhonchi, wheezes Cardiovascular exam: PRESENT: RRR. ABSENT: diastolic murmur, rubs, systolic murmur Pulses: PRESENT: normal dorsalis pedis pul Vascular exam: PRESENT: normal capillary refill GI/Abdominal exam: PRESENT: normal bowel sounds, soft. ABSENT: distended, guarding, mass, organolmegaly, rebound, tenderness Rectal exam: PRESENT: deferred Extremities exam: PRESENT: full ROM. ABSENT: calf tenderness, clubbing, pedal edema Neurological exam: PRESENT: alert, awake, oriented to person, oriented to place , oriented to time, oriented to situation, CN II-XII grossly intact. ABSENT: motor sensory deficit Psychiatric exam: PRESENT: appropriate affect, normal mood. ABSENT: homicidal ideation, suicidal ideation Skin exam: PRESENT: dry, intact, warm. ABSENT: cyanosis, rash Results Laboratory Results: 02/06/17 06:25 02/05/17 05:55 02/05/17 02/06/17 07:50 06:25 WBC 3.5 L RBC 2.53 L Hgb 9.8 L D Hct 27.2 L MCV 108 H D MCH 39.0 H MCHC 36.2 H RDW 29.4 H Plt Count 215 Seg Neutrophils % Not Reportable Lymphocytes % Not Reportable Monocytes % Not Reportable Eosinophils % Not Reportable Basophils % Not Reportable Absolute Neutrophils Not Reportable Absolute Lymphocytes Not Reportable Absolute Monocytes Not Reportable Absolute Eosinophils Not Reportable Absolute Basophils Not Reportable Blood Type O POSITIVE Antibody Screen NEGATIVE 02/03/17 20:40 Creatine Kinase 191 H Impressions: Chest X-Ray 02/03/17 16:41 IMPRESSION: NO SIGNIFICANT RADIOGRAPHIC FINDING IN THE CHEST. Guidance Fluoroscopy 02/04/17 00:00 IMPRESSION: SUCCESSFUL PLACEMENT OF A 5 FR DUAL LUMEN 39 CM PICC IN THE LEFT BASILIC VEIN. Interventional Vascular Procedure 02/04/17 00:00 IMPRESSION: SUCCESSFUL PLACEMENT OF A 5 FR DUAL LUMEN 39 CM PICC IN THE LEFT BASILIC VEIN. PICC Line Insertion 02/04/17 00:00 IMPRESSION: SUCCESSFUL PLACEMENT OF A 5 FR DUAL LUMEN 39 CM PICC IN THE LEFT BASILIC VEIN. Venous Doppler Study 02/04/17 00:00 IMPRESSION: NO EVIDENCE DVT OR SVT IN EITHER LEG. Assessment & Plan - Diagnosis (1) Anemia Qualifiers: Hemolytic anemia type: other hemoglobinopathy Is this a current diagnosis for this admission?: YesPlan: Stable (2) Dyspnea Qualifiers: Dyspnea type: dyspnea on exertion Qualified Code(s): R06.09 - Other forms of dyspnea Plan: chronic secondary to anemia (3) Opiate dependence, continuous Is this a current diagnosis for this admission?: YesPlan: Hematology is managing her analgesics (4) Sickle cell crisis Is this a current diagnosis for this admission?: YesPlan: Pain management per hematology (5) Constipation Qualifiers: Constipation type: drug induced constipation Qualified Code(s): K59.03 - Drug induced constipation Is this a current diagnosis for this admission?: YesPlan: Bowel regimen, prn enemas (6) DVT prophylaxis Is this a current diagnosis for this admission?: Yes (7) Hypertension Qualifiers: Hypertension type: essential hypertension Qualified Code(s): I10 - Essential (primary) hypertension Is this a current diagnosis for this admission?: YesPlan: Presently normotensive on current medications - Time Time Spent with patient: 15-24 minutes Critical Time spent with patient: 15-24 minutes Medications reviewed and adjusted accordingly: Yes
[2017-02-06] MEDS: DIPHENHYDRAMINE HCL 25 MG CAPSULE PO PRN (20:24)
[2017-02-06] MEDS ORDERED: AMITRIPTYLINE HCL 25 MG TABLET PO SCH (22:00)
[2017-02-06] MEDS: ZOLPIDEM TARTRATE 5 MG TABLET PO SCH (22:44)
[2017-02-07] MEDS: NORMAL SALINE 1000 ML 1,000 ML IV PRN ×3 (01:59→22:14)
[2017-02-07] MEDS: HYDROMORPHONE HCL INJ/PF 2 MG/ML AMPULE IV PRN ×6 (04:00→22:20)
[2017-02-07] MEDS: AMITRIPTYLINE HCL 25 MG TABLET PO SCH (07:27)
[2017-02-07] MEDS: ENOXAPARIN SODIUM INJ 40 MG/0.4 ML DISP.SYRIN SUBCUT SCH (07:27)
[2017-02-07] MEDS: DIPHENHYDRAMINE HCL 25 MG CAPSULE PO PRN ×2 (07:28→20:12)
[2017-02-07] MEDS: DOCUSATE SODIUM 100 MG CAPSULE PO SCH ×2 (07:28→17:52)
[2017-02-07] MEDS: ONDANSETRON HCL INJ/PF 4 MG/2 ML SDV IV PRN ×2 (07:29→20:14)
--- NOTE | 2017-02-07 08:32 | PDOC PROGRESS REPORT ---
Subjective Progress Note for:: 02/07/17 Subjective:: Pt not getting meds q 1hr, so will schedule dilaudid today, no BM yet to plan to have enema given today Physical Exam Vital Signs: Temp Pulse Resp BP Pulse Ox 98.5 F 98 18 122/76 100 02/07/17 07:35 02/07/17 07:35 02/07/17 07:35 02/07/17 07:35 02/07/17 07:35 Intake & Output 02/06/17 02/07/17 02/08/17 06:59 06:59 06:59 Intake Total 2540 1350 Output Total 1700 3300 Balance 840 -1950 Weight 67.1 kg 66.8 kg General appearance: PRESENT: no acute distress, well-developed, well-nourished Head exam: PRESENT: atraumatic, normocephalic Eye exam: PRESENT: conjunctiva pink, EOMI, PERRLA. ABSENT: scleral icterus Ear exam: PRESENT: normal external ear exam Mouth exam: PRESENT: moist, tongue midline Neck exam: ABSENT: carotid bruit, JVD, lymphadenopathy, thyromegaly Respiratory exam: PRESENT: clear to auscultation william. ABSENT: rales, rhonchi, wheezes Cardiovascular exam: PRESENT: RRR. ABSENT: diastolic murmur, rubs, systolic murmur Pulses: PRESENT: normal dorsalis pedis pul Vascular exam: PRESENT: normal capillary refill GI/Abdominal exam: PRESENT: normal bowel sounds, soft. ABSENT: distended, guarding, mass, organolmegaly, rebound, tenderness Rectal exam: PRESENT: deferred Extremities exam: PRESENT: full ROM. ABSENT: calf tenderness, clubbing, pedal edema Neurological exam: PRESENT: alert, awake, oriented to person, oriented to place , oriented to time, oriented to situation, CN II-XII grossly intact. ABSENT: motor sensory deficit Psychiatric exam: PRESENT: appropriate affect, normal mood. ABSENT: homicidal ideation, suicidal ideation Skin exam: PRESENT: dry, intact, warm. ABSENT: cyanosis, rash Results Laboratory Results: 02/06/17 06:25 02/05/17 05:55 02/03/17 20:40 Creatine Kinase 191 H Impressions: Chest X-Ray 02/03/17 16:41 IMPRESSION: NO SIGNIFICANT RADIOGRAPHIC FINDING IN THE CHEST. Guidance Fluoroscopy 02/04/17 00:00 IMPRESSION: SUCCESSFUL PLACEMENT OF A 5 FR DUAL LUMEN 39 CM PICC IN THE LEFT BASILIC VEIN. Interventional Vascular Procedure 02/04/17 00:00 IMPRESSION: SUCCESSFUL PLACEMENT OF A 5 FR DUAL LUMEN 39 CM PICC IN THE LEFT BASILIC VEIN. PICC Line Insertion 02/04/17 00:00 IMPRESSION: SUCCESSFUL PLACEMENT OF A 5 FR DUAL LUMEN 39 CM PICC IN THE LEFT BASILIC VEIN. Venous Doppler Study 02/04/17 00:00 IMPRESSION: NO EVIDENCE DVT OR SVT IN EITHER LEG. Assessment & Plan - Diagnosis (1) Sickle cell crisis Is this a current diagnosis for this admission?: YesPlan: Cont current regimen of pain control, supportive care probably another 48-72 hrs needed, enema today (2) Anemia Qualifiers: Hemolytic anemia type: other hemoglobinopathy Is this a current diagnosis for this admission?: YesPlan: hb stable post tx, check QOD - Time Time Spent with patient: 15-24 minutes Critical Time spent with patient: 15-24 minutes - Inpatient Certification Based on my medical assessment, after consideration of the patient's comorbidities, presenting symptoms, or acuity I expect that the services needed warrant INPATIENT care.: Yes I certify that my determination is in accordance with my understanding of Medicare's requirements for reasonable and necessary INPATIENT services [42 CFR 412.3e].: Yes Medical Necessity: Need For IV Fluids, Need for Pain Control
[2017-02-07] MEDS: HYDROMORPHONE HCL INJ/PF 2 MG/ML AMPULE IV SCH ×9 (08:47→17:07)
[2017-02-07] MEDS: AMLODIPINE BESYLATE 5 MG TABLET PO SCH (08:59)
[2017-02-07] MEDS ORDERED: NA PHOS,M-B/NA PHOS,DI-BA (ADULT) 133 ML ENEMA PR ONE (09:00)
[2017-02-07] MEDS: FOLIC ACID 1 MG TABLET PO SCH (09:02)
[2017-02-07] MEDS: FLUTICASONE NASAL SPRAY 50 MCG/SPRY 120 SPRAY/16 GM NAREB SCH (09:59)
[2017-02-07] MEDS ORDERED: NA PHOS,M-B/NA PHOS,DI-BA (ADULT) 133 ML ENEMA PR PRN (10:38)
[2017-02-07] MEDS ORDERED: NALOXONE HCL INJ 2 MG/2 ML DISP.SYRIN IV PRN (17:01)
--- NOTE | 2017-02-07 17:07 | PDOC PROGRESS REPORT ---
Subjective Progress Note for:: 02/07/17 Subjective:: Patient is seen on morning rounds. She apparently was found on the floor by nursing last night, she does not recall how she got there. She denies any significant injury. She continues to complain of pain in her back and bilateral lower extremities. She states she has no appetite. She is constipated and has not had a bowel movement in 3 days. She denies nausea. She denies any other complaints at the present time. Physical Exam Vital Signs: Temp Pulse Resp BP Pulse Ox 98.5 F 87 16 122/76 100 02/07/17 07:35 02/07/17 14:51 02/07/17 14:51 02/07/17 07:35 02/07/17 07:35 Intake & Output 02/06/17 02/07/17 02/08/17 06:59 06:59 06:59 Intake Total 2540 1350 Output Total 1700 3300 Balance 840 -1950 Weight 67.1 kg 66.8 kg General appearance: PRESENT: no acute distress, well-developed, well-nourished Head exam: PRESENT: atraumatic, normocephalic Eye exam: PRESENT: conjunctiva pale Ear exam: PRESENT: normal external ear exam Mouth exam: PRESENT: moist, tongue midline Neck exam: ABSENT: carotid bruit, JVD, lymphadenopathy, thyromegaly Respiratory exam: PRESENT: clear to auscultation william. ABSENT: rales, rhonchi, wheezes Cardiovascular exam: PRESENT: RRR. ABSENT: diastolic murmur, rubs, systolic murmur Pulses: PRESENT: normal dorsalis pedis pul Vascular exam: PRESENT: normal capillary refill GI/Abdominal exam: PRESENT: normal bowel sounds, soft. ABSENT: distended, guarding, mass, organolmegaly, rebound, tenderness Rectal exam: PRESENT: deferred Extremities exam: PRESENT: full ROM. ABSENT: calf tenderness, clubbing, pedal edema Neurological exam: PRESENT: alert, awake, oriented to person, oriented to place , oriented to time, oriented to situation, CN II-XII grossly intact. ABSENT: motor sensory deficit Psychiatric exam: PRESENT: flat affect Skin exam: PRESENT: dry, warm Results Laboratory Results: 02/06/17 06:25 02/05/17 05:55 02/03/17 20:40 Creatine Kinase 191 H Impressions: Chest X-Ray 02/03/17 16:41 IMPRESSION: NO SIGNIFICANT RADIOGRAPHIC FINDING IN THE CHEST. Guidance Fluoroscopy 02/04/17 00:00 IMPRESSION: SUCCESSFUL PLACEMENT OF A 5 FR DUAL LUMEN 39 CM PICC IN THE LEFT BASILIC VEIN. Interventional Vascular Procedure 02/04/17 00:00 IMPRESSION: SUCCESSFUL PLACEMENT OF A 5 FR DUAL LUMEN 39 CM PICC IN THE LEFT BASILIC VEIN. PICC Line Insertion 02/04/17 00:00 IMPRESSION: SUCCESSFUL PLACEMENT OF A 5 FR DUAL LUMEN 39 CM PICC IN THE LEFT BASILIC VEIN. Venous Doppler Study 02/04/17 00:00 IMPRESSION: NO EVIDENCE DVT OR SVT IN EITHER LEG. Assessment & Plan - Diagnosis (1) Anemia Qualifiers: Hemolytic anemia type: other hemoglobinopathy Is this a current diagnosis for this admission?: YesPlan: Stable (2) Dyspnea Qualifiers: Dyspnea type: dyspnea on exertion Qualified Code(s): R06.09 - Other forms of dyspnea Plan: chronic secondary to anemia (3) Opiate dependence, continuous Is this a current diagnosis for this admission?: YesPlan: Hematology is managing her analgesics (4) Sickle cell crisis Is this a current diagnosis for this admission?: YesPlan: Pain management per hematology. Labs have stabilized will check cbc in the am (5) Constipation Qualifiers: Constipation type: drug induced constipation Qualified Code(s): K59.03 - Drug induced constipation Is this a current diagnosis for this admission?: YesPlan: Bowel regimen, prn enemas (6) DVT prophylaxis Is this a current diagnosis for this admission?: Yes (7) Hypertension Qualifiers: Hypertension type: essential hypertension Qualified Code(s): I10 - Essential (primary) hypertension Is this a current diagnosis for this admission?: YesPlan: Presently normotensive on current medications - Time Time Spent with patient: 25-34 minutes Critical Time spent with patient: 15-24 minutes Medications reviewed and adjusted accordingly: Yes Anticipated discharge: Home
[2017-02-07] MEDS ORDERED: NORMAL SALINE 10 ML SDV (AFTER EACH USE) IV PRN (21:50)
[2017-02-07] MEDS: ZOLPIDEM TARTRATE 5 MG TABLET PO SCH (22:12)
[2017-02-07] MEDS: AMITRIPTYLINE HCL 50 MG TABLET PO SCH (22:13)
[2017-02-08] MEDS: NORMAL SALINE 10 ML SDV (SCHEDULED) IV SCH ×3 (00:53→22:21)
[2017-02-08] MEDS: HYDROMORPHONE HCL INJ/PF 2 MG/ML AMPULE IV PRN ×12 (04:05→22:20)
[2017-02-08] MEDS: ENOXAPARIN SODIUM INJ 40 MG/0.4 ML DISP.SYRIN SUBCUT SCH (07:27)
[2017-02-08] MEDS: ONDANSETRON HCL INJ/PF 4 MG/2 ML SDV IV PRN ×2 (07:27→20:58)
[2017-02-08] MEDS: DIPHENHYDRAMINE HCL 25 MG CAPSULE PO PRN ×3 (07:27→20:57)
--- NOTE | 2017-02-08 07:59 | PDOC PROGRESS REPORT ---
Subjective Progress Note for:: 02/08/17 Subjective:: Pt still w/ severe pain, uncomfortable, not doing well this am Physical Exam Vital Signs: Temp Pulse Resp BP Pulse Ox 98.7 F 102 H 18 137/78 H 98 02/07/17 19:52 02/07/17 21:00 02/07/17 21:00 02/07/17 19:52 02/07/17 21:00 Intake & Output 02/07/17 02/08/17 02/09/17 06:59 06:59 06:59 Intake Total 1350 860 Output Total 3300 1500 Balance -1950 -640 Weight 66.8 kg 66.9 kg General appearance: PRESENT: no acute distress, well-developed, well-nourished Head exam: PRESENT: atraumatic, normocephalic Eye exam: PRESENT: conjunctiva pink, EOMI, PERRLA. ABSENT: scleral icterus Ear exam: PRESENT: normal external ear exam Mouth exam: PRESENT: moist, tongue midline Neck exam: ABSENT: carotid bruit, JVD, lymphadenopathy, thyromegaly Respiratory exam: PRESENT: clear to auscultation william. ABSENT: rales, rhonchi, wheezes Cardiovascular exam: PRESENT: RRR. ABSENT: diastolic murmur, rubs, systolic murmur Pulses: PRESENT: normal dorsalis pedis pul Vascular exam: PRESENT: normal capillary refill GI/Abdominal exam: PRESENT: normal bowel sounds, soft. ABSENT: distended, guarding, mass, organolmegaly, rebound, tenderness Rectal exam: PRESENT: deferred Extremities exam: PRESENT: full ROM. ABSENT: calf tenderness, clubbing, pedal edema Neurological exam: PRESENT: alert, awake, oriented to person, oriented to place , oriented to time, oriented to situation, CN II-XII grossly intact. ABSENT: motor sensory deficit Psychiatric exam: PRESENT: appropriate affect, normal mood. ABSENT: homicidal ideation, suicidal ideation Skin exam: PRESENT: dry, intact, warm. ABSENT: cyanosis, rash Results Laboratory Results: 02/06/17 06:25 02/05/17 05:55 02/03/17 20:40 Creatine Kinase 191 H Impressions: Chest X-Ray 02/03/17 16:41 IMPRESSION: NO SIGNIFICANT RADIOGRAPHIC FINDING IN THE CHEST. Guidance Fluoroscopy 02/04/17 00:00 IMPRESSION: SUCCESSFUL PLACEMENT OF A 5 FR DUAL LUMEN 39 CM PICC IN THE LEFT BASILIC VEIN. Interventional Vascular Procedure 02/04/17 00:00 IMPRESSION: SUCCESSFUL PLACEMENT OF A 5 FR DUAL LUMEN 39 CM PICC IN THE LEFT BASILIC VEIN. PICC Line Insertion 02/04/17 00:00 IMPRESSION: SUCCESSFUL PLACEMENT OF A 5 FR DUAL LUMEN 39 CM PICC IN THE LEFT BASILIC VEIN. Venous Doppler Study 02/04/17 00:00 IMPRESSION: NO EVIDENCE DVT OR SVT IN EITHER LEG. Assessment & Plan - Diagnosis (1) Sickle cell crisis Is this a current diagnosis for this admission?: YesPlan: Pt still w/ pain, recommend 48 hours more but will be leaving the country tomorrow, discussed w/ hospitalist team who are caring for pt as well, will leave it up to them on next steps of care. (2) Anemia Qualifiers: Hemolytic anemia type: other hemoglobinopathy Is this a current diagnosis for this admission?: YesPlan: hb stable, check every other day - Time Time Spent with patient: 15-24 minutes Critical Time spent with patient: 15-24 minutes
[2017-02-08 09:11] LABS: HEMATOCRIT 25.9 % (36.0-47.0); HEMOGLOBIN 9.1 g/dL (12.0-15.5); HGB HCT DIFFERENCE 1.4; MEAN CORPUSCULAR HEMOGLOBIN 38.4 pg (27.0-33.4); MEAN CORPUSCULAR HGB CONC 35.1 g/dL (32.0-36.0); MEAN CORPUSCULAR VOLUME 109 fl (80-97); RED BLOOD COUNT 2.37 10^6/uL (3.72-5.28); RED CELL DISTRIBUTION WIDTH 28.9 % (11.5-14.0); WHITE BLOOD COUNT 3.8 10^3/uL (4.0-10.5)
[2017-02-08] MEDS: FOLIC ACID 1 MG TABLET PO SCH (09:15)
[2017-02-08] MEDS: AMITRIPTYLINE HCL 25 MG TABLET PO SCH (09:15)
[2017-02-08] MEDS: DOCUSATE SODIUM 100 MG CAPSULE PO SCH ×2 (09:15→17:33)
[2017-02-08] MEDS: NORMAL SALINE 1000 ML 1,000 ML IV PRN ×2 (09:15→19:56)
[2017-02-08] MEDS: AMLODIPINE BESYLATE 5 MG TABLET PO SCH (09:15)
[2017-02-08] MEDS: FLUTICASONE NASAL SPRAY 50 MCG/SPRY 120 SPRAY/16 GM NAREB SCH (09:15)
[2017-02-08 09:46] LABS: BAND NEUTROPHILS % (MANUAL) 7 % (3-5); BASOPHILS % (MANUAL) 0 % (0-2); EOSINOPHILS % (MANUAL) 0 % (0-6); LYMPHOCYTES % (MANUAL) 27 % (13-45); NUCLEATED RED BLOOD CELLS 8 /100 WBC (0); POIKILOCYTOSIS 2+; SCHISTOCYTES 1+; TOTAL CELLS COUNTED 100; TOXIC VACUOLATION PRESENT
[2017-02-08 09:47] LABS: ANISOCYTOSIS 4+; HOWELL-JOLLY BODIES PRESENT; HYPOCHROMASIA 1+; OVALOCYTES 1+; POLYCHROMASIA 1+; TARGET CELLS SLIGHT; TEAR DROP CELLS SLIGHT
[2017-02-08] MEDS: CYCLOBENZAPRINE HCL 10 MG TABLET PO PRN ×2 (12:03→20:57)
--- NOTE | 2017-02-08 12:58 | PDOC PROGRESS REPORT ---
Subjective Progress Note for:: 02/08/17 Subjective:: Patient is seen on morning rounds. She is sitting on the side of the bed rocking back and forth. She continues to complain of pain in her back and bilateral lower extremities. She states she has no appetite. She states that Dr Cornelius told her she needed to stay in the hospital another day because of the severity of her pain. She did have 2 bowel movements. She denies nausea. She denies any other complaints at the present time. Physical Exam Vital Signs: Temp Pulse Resp BP Pulse Ox 98.6 F 90 18 127/61 H 100 02/08/17 12:00 02/08/17 12:00 02/08/17 12:00 02/08/17 12:00 02/08/17 12:00 Intake & Output 02/07/17 02/08/17 02/09/17 06:59 06:59 06:59 Intake Total 1350 860 Output Total 3300 1500 Balance -1950 -640 Weight 66.8 kg 66.9 kg General appearance: PRESENT: no acute distress, well-developed, well-nourished Head exam: PRESENT: atraumatic, normocephalic Eye exam: PRESENT: conjunctiva pink, EOMI, PERRLA. ABSENT: scleral icterus Ear exam: PRESENT: normal external ear exam Mouth exam: PRESENT: moist, tongue midline Neck exam: ABSENT: carotid bruit, JVD, lymphadenopathy, thyromegaly Respiratory exam: PRESENT: clear to auscultation william. ABSENT: rales, rhonchi, wheezes Cardiovascular exam: PRESENT: RRR. ABSENT: diastolic murmur, rubs, systolic murmur Pulses: PRESENT: normal dorsalis pedis pul Vascular exam: PRESENT: normal capillary refill GI/Abdominal exam: PRESENT: normal bowel sounds, soft. ABSENT: distended, guarding, mass, organolmegaly, rebound, tenderness Rectal exam: PRESENT: deferred Extremities exam: PRESENT: full ROM. ABSENT: calf tenderness, clubbing, pedal edema Musculoskeletal exam: PRESENT: ambulatory, full ROM, normal inspection Neurological exam: PRESENT: alert, awake, oriented to person, oriented to place , oriented to time, oriented to situation, CN II-XII grossly intact. ABSENT: motor sensory deficit Psychiatric exam: PRESENT: appropriate affect, normal mood. ABSENT: homicidal ideation, suicidal ideation Focused psych exam: PRESENT: restlessness Skin exam: PRESENT: dry, intact, warm. ABSENT: cyanosis, rash Results Laboratory Results: 02/08/17 08:45 02/05/17 05:55 02/08/17 08:45 WBC 3.8 L RBC 2.37 L Hgb 9.1 L Hct 25.9 L MCV 109 H MCH 38.4 H MCHC 35.1 RDW 28.9 H Plt Count 165 Seg Neutrophils % Not Reportable Lymphocytes % Not Reportable Monocytes % Not Reportable Eosinophils % Not Reportable Basophils % Not Reportable Absolute Neutrophils Not Reportable Absolute Lymphocytes Not Reportable Absolute Monocytes Not Reportable Absolute Eosinophils Not Reportable Absolute Basophils Not Reportable 02/03/17 20:40 Creatine Kinase 191 H Impressions: Chest X-Ray 02/03/17 16:41 IMPRESSION: NO SIGNIFICANT RADIOGRAPHIC FINDING IN THE CHEST. Guidance Fluoroscopy 02/04/17 00:00 IMPRESSION: SUCCESSFUL PLACEMENT OF A 5 FR DUAL LUMEN 39 CM PICC IN THE LEFT BASILIC VEIN. Interventional Vascular Procedure 02/04/17 00:00 IMPRESSION: SUCCESSFUL PLACEMENT OF A 5 FR DUAL LUMEN 39 CM PICC IN THE LEFT BASILIC VEIN. PICC Line Insertion 02/04/17 00:00 IMPRESSION: SUCCESSFUL PLACEMENT OF A 5 FR DUAL LUMEN 39 CM PICC IN THE LEFT BASILIC VEIN. Venous Doppler Study 02/04/17 00:00 IMPRESSION: NO EVIDENCE DVT OR SVT IN EITHER LEG. Assessment & Plan - Diagnosis (1) Anemia Qualifiers: Hemolytic anemia type: other hemoglobinopathy Is this a current diagnosis for this admission?: YesPlan: Hemoglobin remains stable. No retic count (2) Dyspnea Qualifiers: Dyspnea type: dyspnea on exertion Qualified Code(s): R06.09 - Other forms of dyspnea Plan: chronic secondary to anemia (3) Opiate dependence, continuous Is this a current diagnosis for this admission?: YesPlan: Hematology is managing her analgesics (4) Sickle cell crisis Is this a current diagnosis for this admission?: YesPlan: Pain management per hematology. Labs have stabilized will check cbc in the am (5) Constipation Qualifiers: Constipation type: drug induced constipation Qualified Code(s): K59.03 - Drug induced constipation Is this a current diagnosis for this admission?: YesPlan: Bowel regimen, prn enemas (6) DVT prophylaxis Is this a current diagnosis for this admission?: Yes (7) Hypertension Qualifiers: Hypertension type: essential hypertension Qualified Code(s): I10 - Essential (primary) hypertension Is this a current diagnosis for this admission?: YesPlan: Presently normotensive on current medications - Time Time Spent with patient: 25-34 minutes Critical Time spent with patient: 15-24 minutes Medications reviewed and adjusted accordingly: Yes Within: within 24 hours
--- NOTE | 2017-02-08 15:06 | Progress Note ---
Provider Note Provider Note: late entry for 02/08/16 Discuss case with hematology relationship consultant. Expressed my extreme concern about the pain medication regimen that he had written for this patient. This patient had been found on the floor confused by nursing overnight. This patient has a history of narcotic overuse requiring the administration of Narcan in the hospital in the past. Agreed on as needed regimen with hold parameters. Narcan written as needed. Agree with nurse practitioner Hotalings assessment and plan.
[2017-02-08] MEDS: AMITRIPTYLINE HCL 50 MG TABLET PO SCH (22:19)
[2017-02-08] MEDS: ZOLPIDEM TARTRATE 5 MG TABLET PO SCH (22:19)
[2017-02-09] MEDS: HYDROMORPHONE HCL INJ/PF 2 MG/ML AMPULE IV PRN ×8 (02:19→21:10)
[2017-02-09] MEDS: ONDANSETRON HCL INJ/PF 4 MG/2 ML SDV IV PRN ×2 (05:24→16:33)
[2017-02-09] MEDS: DOCUSATE SODIUM 100 MG CAPSULE PO SCH ×2 (10:00→18:40)
[2017-02-09] MEDS: FLUTICASONE NASAL SPRAY 50 MCG/SPRY 120 SPRAY/16 GM NAREB SCH (10:00)
[2017-02-09] MEDS: ENOXAPARIN SODIUM INJ 40 MG/0.4 ML DISP.SYRIN SUBCUT SCH (10:00)
[2017-02-09] MEDS: AMLODIPINE BESYLATE 5 MG TABLET PO SCH (10:00)
[2017-02-09] MEDS: AMITRIPTYLINE HCL 25 MG TABLET PO SCH (10:00)
[2017-02-09] MEDS: FOLIC ACID 1 MG TABLET PO SCH (10:00)
[2017-02-09] MEDS: CYCLOBENZAPRINE HCL 10 MG TABLET PO PRN ×2 (10:01→21:08)
[2017-02-09] MEDS: NORMAL SALINE 10 ML SDV (SCHEDULED) IV SCH ×2 (10:02→21:12)
--- NOTE | 2017-02-09 11:10 | PDOC PROGRESS REPORT ---
Subjective Progress Note for:: 02/09/17 Subjective:: Patient is seen on morning rounds. She is standing at the sink brushing her teeth. Her pain is improved somewhat since yesterday. She would like to start to reduce frequency of dilaudid and prepare for discharge. She denies any chest pain or shortness of breath. She states most of her pain is in her back. She denies nausea. She denies any other complaints at the present time. Remaining review of systems is negative. Physical Exam Vital Signs: Temp Pulse Resp BP Pulse Ox 98.7 F 108 H 16 137/76 H 100 02/09/17 07:46 02/09/17 07:46 02/09/17 07:46 02/09/17 07:46 02/09/17 07:46 Intake & Output 02/08/17 02/09/17 02/10/17 06:59 06:59 06:59 Intake Total 860 2463 Output Total 1500 1600 Balance -640 863 Weight 66.9 kg 66.9 kg General appearance: PRESENT: no acute distress, well-developed, well-nourished Head exam: PRESENT: atraumatic, normocephalic Eye exam: PRESENT: conjunctiva pink, EOMI, PERRLA. ABSENT: scleral icterus Ear exam: PRESENT: normal external ear exam Mouth exam: PRESENT: moist, tongue midline Neck exam: ABSENT: carotid bruit, JVD, lymphadenopathy, thyromegaly Respiratory exam: PRESENT: clear to auscultation william. ABSENT: rales, rhonchi, wheezes Cardiovascular exam: PRESENT: RRR. ABSENT: diastolic murmur, rubs, systolic murmur Pulses: PRESENT: normal dorsalis pedis pul Vascular exam: PRESENT: normal capillary refill GI/Abdominal exam: PRESENT: normal bowel sounds, soft. ABSENT: distended, guarding, mass, organolmegaly, rebound, tenderness Rectal exam: PRESENT: deferred Extremities exam: PRESENT: full ROM. ABSENT: calf tenderness, clubbing, pedal edema Neurological exam: PRESENT: alert, awake, oriented to person, oriented to place , oriented to time, oriented to situation, CN II-XII grossly intact. ABSENT: motor sensory deficit Psychiatric exam: PRESENT: appropriate affect, normal mood. ABSENT: homicidal ideation, suicidal ideation Skin exam: PRESENT: dry, intact, warm. ABSENT: cyanosis, rash Results Laboratory Results: 02/08/17 08:45 02/05/17 05:55 02/03/17 20:40 Creatine Kinase 191 H Impressions: Chest X-Ray 02/03/17 16:41 IMPRESSION: NO SIGNIFICANT RADIOGRAPHIC FINDING IN THE CHEST. Guidance Fluoroscopy 02/04/17 00:00 IMPRESSION: SUCCESSFUL PLACEMENT OF A 5 FR DUAL LUMEN 39 CM PICC IN THE LEFT BASILIC VEIN. Interventional Vascular Procedure 02/04/17 00:00 IMPRESSION: SUCCESSFUL PLACEMENT OF A 5 FR DUAL LUMEN 39 CM PICC IN THE LEFT BASILIC VEIN. PICC Line Insertion 02/04/17 00:00 IMPRESSION: SUCCESSFUL PLACEMENT OF A 5 FR DUAL LUMEN 39 CM PICC IN THE LEFT BASILIC VEIN. Venous Doppler Study 02/04/17 00:00 IMPRESSION: NO EVIDENCE DVT OR SVT IN EITHER LEG. Assessment & Plan - Diagnosis (1) Anemia Qualifiers: Hemolytic anemia type: other hemoglobinopathy Is this a current diagnosis for this admission?: YesPlan: Hemoglobin remains stable. No retic count (2) Dyspnea Qualifiers: Dyspnea type: dyspnea on exertion Qualified Code(s): R06.09 - Other forms of dyspnea Plan: chronic secondary to anemia (3) Opiate dependence, continuous Is this a current diagnosis for this admission?: YesPlan: Hematology is managing her analgesics (4) Sickle cell crisis Is this a current diagnosis for this admission?: YesPlan: Pain management per hematology. Labs have stabilized will check cbc in the am (5) Constipation Qualifiers: Constipation type: drug induced constipation Qualified Code(s): K59.03 - Drug induced constipation Is this a current diagnosis for this admission?: YesPlan: Bowel regimen, prn enemas (6) DVT prophylaxis Is this a current diagnosis for this admission?: Yes (7) Hypertension Qualifiers: Hypertension type: essential hypertension Qualified Code(s): I10 - Essential (primary) hypertension Is this a current diagnosis for this admission?: YesPlan: Presently normotensive on current medications - Time Time Spent with patient: 25-34 minutes Critical Time spent with patient: 15-24 minutes Medications reviewed and adjusted accordingly: Yes Anticipated discharge: Home Within: within 24 hours
[2017-02-09] MEDS ORDERED: CYCLOBENZAPRINE HCL 10 MG TABLET ONE (20:47)
[2017-02-09] MEDS: ZOLPIDEM TARTRATE 5 MG TABLET PO SCH (21:07)
[2017-02-09] MEDS: AMITRIPTYLINE HCL 50 MG TABLET PO SCH (21:08)
[2017-02-10] MEDS: NORMAL SALINE 1000 ML 1,000 ML IV PRN ×2 (01:04→21:45)
[2017-02-10] MEDS: ONDANSETRON HCL INJ/PF 4 MG/2 ML SDV IV PRN ×3 (01:24→18:27)
[2017-02-10] MEDS: HYDROMORPHONE HCL INJ/PF 2 MG/ML AMPULE IV PRN ×11 (01:24→23:59)
[2017-02-10] MEDS ORDERED: CYCLOBENZAPRINE HCL 10 MG TABLET ONE ×3 (05:29→22:59)
[2017-02-10] MEDS: CYCLOBENZAPRINE HCL 10 MG TABLET PO PRN ×2 (05:40→23:59)
[2017-02-10] MEDS: AMITRIPTYLINE HCL 25 MG TABLET PO SCH (07:55)
[2017-02-10] MEDS: ENOXAPARIN SODIUM INJ 40 MG/0.4 ML DISP.SYRIN SUBCUT SCH (07:55)
[2017-02-10] MEDS: FOLIC ACID 1 MG TABLET PO SCH (10:04)
[2017-02-10] MEDS: AMLODIPINE BESYLATE 5 MG TABLET PO SCH (10:04)
[2017-02-10] MEDS: NORMAL SALINE 10 ML SDV (SCHEDULED) IV SCH ×2 (10:04→21:37)
[2017-02-10] MEDS: DOCUSATE SODIUM 100 MG CAPSULE PO SCH ×2 (10:04→17:31)
[2017-02-10] MEDS: FLUTICASONE NASAL SPRAY 50 MCG/SPRY 120 SPRAY/16 GM NAREB SCH (10:05)
--- NOTE | 2017-02-10 12:42 | PDOC PROGRESS REPORT ---
Subjective Progress Note for:: 02/10/17 Subjective:: Patient is seen on morning rounds. She is resting in bed. She states pain is improving. She is tolerating reduction in frequency of Dilaudid. We discussed reducing dose or the option of discharge with oral analgesics. She states would like dose reduced and wants to have an enema before she leaves because it has been almost 3 days since last bowel movement. She denies any chest pain or shortness of breath. She states most of her pain is in her back, and some in her legs. She denies nausea. She denies any other complaints at the present time. Remaining review of systems is negative. Physical Exam Vital Signs: Temp Pulse Resp BP Pulse Ox 98.3 F 87 16 114/62 100 02/10/17 11:27 02/10/17 11:27 02/10/17 11:27 02/10/17 11:27 02/10/17 11:27 Intake & Output 02/09/17 02/10/17 02/11/17 06:59 06:59 06:59 Intake Total 2463 3231 Output Total 1600 1700 Balance 863 1531 Weight 66.9 kg 67.7 kg General appearance: PRESENT: no acute distress, well-developed, well-nourished Head exam: PRESENT: atraumatic, normocephalic Eye exam: PRESENT: conjunctiva pink, EOMI, PERRLA. ABSENT: scleral icterus Ear exam: PRESENT: normal external ear exam Mouth exam: PRESENT: moist, tongue midline Neck exam: ABSENT: carotid bruit, JVD, lymphadenopathy, thyromegaly Respiratory exam: PRESENT: clear to auscultation william. ABSENT: rales, rhonchi, wheezes Cardiovascular exam: PRESENT: RRR. ABSENT: diastolic murmur, rubs, systolic murmur Pulses: PRESENT: normal dorsalis pedis pul Vascular exam: PRESENT: normal capillary refill GI/Abdominal exam: PRESENT: normal bowel sounds, soft. ABSENT: distended, guarding, mass, organolmegaly, rebound, tenderness Rectal exam: PRESENT: deferred Extremities exam: PRESENT: full ROM. ABSENT: calf tenderness, clubbing, pedal edema Neurological exam: PRESENT: alert, awake, oriented to person, oriented to place , oriented to time, oriented to situation, CN II-XII grossly intact. ABSENT: motor sensory deficit Psychiatric exam: PRESENT: appropriate affect, normal mood. ABSENT: homicidal ideation, suicidal ideation Skin exam: PRESENT: dry, intact, warm. ABSENT: cyanosis, rash Results Laboratory Results: 02/08/17 08:45 02/05/17 05:55 02/03/17 20:40 Creatine Kinase 191 H Impressions: Chest X-Ray 02/03/17 16:41 IMPRESSION: NO SIGNIFICANT RADIOGRAPHIC FINDING IN THE CHEST. Guidance Fluoroscopy 02/04/17 00:00 IMPRESSION: SUCCESSFUL PLACEMENT OF A 5 FR DUAL LUMEN 39 CM PICC IN THE LEFT BASILIC VEIN. Interventional Vascular Procedure 02/04/17 00:00 IMPRESSION: SUCCESSFUL PLACEMENT OF A 5 FR DUAL LUMEN 39 CM PICC IN THE LEFT BASILIC VEIN. PICC Line Insertion 02/04/17 00:00 IMPRESSION: SUCCESSFUL PLACEMENT OF A 5 FR DUAL LUMEN 39 CM PICC IN THE LEFT BASILIC VEIN. Venous Doppler Study 02/04/17 00:00 IMPRESSION: NO EVIDENCE DVT OR SVT IN EITHER LEG. Assessment & Plan - Diagnosis (1) Anemia Qualifiers: Hemolytic anemia type: other hemoglobinopathy Is this a current diagnosis for this admission?: YesPlan: Hemoglobin remains stable. No retic count (2) Dyspnea Qualifiers: Dyspnea type: dyspnea on exertion Qualified Code(s): R06.09 - Other forms of dyspnea Plan: chronic secondary to anemia (3) Opiate dependence, continuous Is this a current diagnosis for this admission?: YesPlan: Hematology is managing her analgesics (4) Sickle cell crisis Is this a current diagnosis for this admission?: YesPlan: Pain management per hematology. Labs have stabilized will check cbc in the am (5) Constipation Qualifiers: Constipation type: drug induced constipation Qualified Code(s): K59.03 - Drug induced constipation Is this a current diagnosis for this admission?: YesPlan: Bowel regimen, prn enemas (6) DVT prophylaxis Is this a current diagnosis for this admission?: Yes (7) Hypertension Qualifiers: Hypertension type: essential hypertension Qualified Code(s): I10 - Essential (primary) hypertension Is this a current diagnosis for this admission?: YesPlan: Presently normotensive on current medications - Time Time Spent with patient: 25-34 minutes Critical Time spent with patient: 15-24 minutes Medications reviewed and adjusted accordingly: Yes Anticipated discharge: Home Within: within 24 hours
[2017-02-10] MEDS: DIPHENHYDRAMINE HCL 25 MG CAPSULE PO PRN (18:27)
[2017-02-10] MEDS: AMITRIPTYLINE HCL 50 MG TABLET PO SCH (21:36)
[2017-02-10] MEDS: ZOLPIDEM TARTRATE 5 MG TABLET PO SCH (21:36)
[2017-02-11] MEDS: HYDROMORPHONE HCL INJ/PF 2 MG/ML AMPULE IV PRN ×4 (02:22→11:04)
[2017-02-11] MEDS: ONDANSETRON HCL INJ/PF 4 MG/2 ML SDV IV PRN ×2 (02:27→11:05)
[2017-02-11] MEDS: ENOXAPARIN SODIUM INJ 40 MG/0.4 ML DISP.SYRIN SUBCUT SCH (07:57)
[2017-02-11] MEDS: AMITRIPTYLINE HCL 25 MG TABLET PO SCH (08:00)
[2017-02-11] MEDS: NORMAL SALINE 1000 ML 1,000 ML IV PRN (08:01)
[2017-02-11] MEDS: FLUTICASONE NASAL SPRAY 50 MCG/SPRY 120 SPRAY/16 GM NAREB SCH (09:25)
[2017-02-11] MEDS: FOLIC ACID 1 MG TABLET PO SCH (09:26)
[2017-02-11] MEDS: DOCUSATE SODIUM 100 MG CAPSULE PO SCH ×2 (09:27→18:46)
[2017-02-11] MEDS: AMLODIPINE BESYLATE 5 MG TABLET PO SCH (09:27)
[2017-02-11] MEDS: ACETAMINOPHEN 325 MG TABLET PO PRN ×2 (10:00→17:04)
[2017-02-11 12:01] LABS: HEMATOCRIT 24.5 % (36.0-47.0); HEMOGLOBIN 8.9 g/dL (12.0-15.5); HGB HCT DIFFERENCE 2.2; MEAN CORPUSCULAR HEMOGLOBIN 39.2 pg (27.0-33.4); MEAN CORPUSCULAR HGB CONC 36.3 g/dL (32.0-36.0); MEAN CORPUSCULAR VOLUME 108 fl (80-97); RED BLOOD COUNT 2.26 10^6/uL (3.72-5.28); RED CELL DISTRIBUTION WIDTH 27.8 % (11.5-14.0)
[2017-02-11 12:50] LABS: BAND NEUTROPHILS % (MANUAL) 1 % (3-5); BASOPHILS % (MANUAL) 0 % (0-2); EOSINOPHILS % (MANUAL) 1 % (0-6); LYMPHOCYTES % (MANUAL) 17 % (13-45); NUCLEATED RED BLOOD CELLS 1 /100 WBC (0); TOTAL CELLS COUNTED 100; TOXIC GRANULATION 2+; TOXIC VACUOLATION PRESENT
[2017-02-11 12:51] LABS: ANISOCYTOSIS 3+; HYPOCHROMASIA SLIGHT; OVALOCYTES 2+; POIKILOCYTOSIS 2+; POLYCHROMASIA 1+; SCHISTOCYTES SLIGHT; TARGET CELLS 2+
[2017-02-11 15:20] LABS: APPEARANCE,URINE CLEAR; BILIRUBIN,URINE NEGATIVE (NEGATIVE); GLUCOSE, URINE NEGATIVE (NEGATIVE); KETONES,URINE NEGATIVE (NEGATIVE); LEUKOCYTE ESTERASE,URINE NEGATIVE (NEGATIVE); NITRITE,URINE NEGATIVE (NEGATIVE); PROTEIN,URINE NEGATIVE (NEGATIVE); URINE SPECIFIC GRAVITY 1.005
--- NOTE | 2017-02-11 17:52 | RADIOLOGY REPORT (SQ) ---
EXAM DESCRIPTION: CHEST PA/LAT COMPLETED DATE/TIME: 02/11/2017 5:39 pm REASON FOR STUDY: Fever, dry cough COMPARISON: 02/03/2017 EXAM PARAMETERS: NUMBER OF VIEWS: two views TECHNIQUE: Digital Frontal and Lateral radiographic views of the chest acquired. RADIATION DOSE: NA LIMITATIONS: none FINDINGS: LUNGS AND PLEURA: There is ill-defined increased opacification left base compared to the e arlier study. MEDIASTINUM AND HILAR STRUCTURES: No masses or contour abnormalities. HEART AND VASCULAR STRUCTURES: Heart normal size. No evidence for failure. BONES: No acute findings. HARDWARE: None in the chest. OTHER: No other significant finding. IMPRESSION: A limited left lower lobe pneumonia is suggested. TECHNICAL DOCUMENTATION: JOB ID: [id number] [employer]- All Rights Reserved
[2017-02-11] MEDS: NORMAL SALINE 10 ML SDV (SCHEDULED) IV SCH ×2 (19:59→21:12)
[2017-02-11] MEDS: OXYCODONE HCL IR 5 MG TABLET PO PRN (20:02)
[2017-02-11] MEDS: ZOLPIDEM TARTRATE 5 MG TABLET PO SCH (22:04)
[2017-02-11] MEDS: AMITRIPTYLINE HCL 50 MG TABLET PO SCH (22:04)
[2017-02-12] MEDS: OXYCODONE HCL IR 5 MG TABLET PO PRN ×4 (04:50→20:41)
[2017-02-12] MEDS: AMITRIPTYLINE HCL 25 MG TABLET PO SCH (08:34)
[2017-02-12] MEDS: ENOXAPARIN SODIUM INJ 40 MG/0.4 ML DISP.SYRIN SUBCUT SCH (08:34)
[2017-02-12] MEDS: FLUTICASONE NASAL SPRAY 50 MCG/SPRY 120 SPRAY/16 GM NAREB SCH (09:18)
[2017-02-12] MEDS: DOCUSATE SODIUM 100 MG CAPSULE PO SCH ×2 (09:19→17:12)
[2017-02-12] MEDS: AMLODIPINE BESYLATE 5 MG TABLET PO SCH (09:19)
[2017-02-12] MEDS: FOLIC ACID 1 MG TABLET PO SCH (09:20)
[2017-02-12] MEDS: NORMAL SALINE 10 ML SDV (SCHEDULED) IV SCH ×2 (10:24→21:19)
[2017-02-12] MEDS ORDERED: VANCOMYCIN HCL 0 MG in DEXTROSE 5%-WATER 250 ML IV NR (10:30)
--- NOTE | 2017-02-12 10:43 | PDOC PROGRESS REPORT ---
Subjective Progress Note for:: 02/12/17 Subjective:: Patient with high fevers, cough, chest congestion. Pain controlled. PICC line removed yesterday. +BC's Physical Exam Vital Signs: Temp Pulse Resp BP Pulse Ox 101.0 F H 91 16 137/72 H 100 02/12/17 08:48 02/12/17 08:48 02/12/17 08:48 02/12/17 08:48 02/12/17 08:48 Intake & Output 02/11/17 02/12/17 02/13/17 06:59 06:59 06:59 Intake Total 3260 120 350 Output Total 6000 Balance -2740 120 350 Weight 65.4 kg 65.4 kg General appearance: PRESENT: no acute distress, well-developed, well-nourished Head exam: PRESENT: atraumatic, normocephalic Eye exam: PRESENT: conjunctiva pink, EOMI, PERRLA. ABSENT: scleral icterus Ear exam: PRESENT: normal external ear exam Mouth exam: PRESENT: moist, tongue midline Neck exam: ABSENT: carotid bruit, JVD, lymphadenopathy, thyromegaly Respiratory exam: PRESENT: clear to auscultation william. ABSENT: rales, rhonchi, wheezes Cardiovascular exam: PRESENT: RRR, systolic murmur - 2/6. ABSENT: diastolic murmur, rubs Pulses: PRESENT: normal dorsalis pedis pul Vascular exam: PRESENT: normal capillary refill GI/Abdominal exam: PRESENT: normal bowel sounds, soft. ABSENT: distended, guarding, mass, organolmegaly, rebound, tenderness Rectal exam: PRESENT: deferred Extremities exam: PRESENT: full ROM. ABSENT: calf tenderness, clubbing, pedal edema Neurological exam: PRESENT: alert, awake, oriented to person, oriented to place , oriented to time, oriented to situation, CN II-XII grossly intact. ABSENT: motor sensory deficit Psychiatric exam: PRESENT: appropriate affect, normal mood. ABSENT: homicidal ideation, suicidal ideation Skin exam: PRESENT: dry, intact, warm. ABSENT: cyanosis, rash Results Laboratory Results: 02/11/17 11:30 02/05/17 05:55 02/11/17 02/11/17 11:30 15:00 WBC 5.0 RBC 2.26 L Hgb 8.9 L Hct 24.5 L MCV 108 H MCH 39.2 H MCHC 36.3 H RDW 27.8 H Plt Count 179 Seg Neutrophils % Not Reportable Lymphocytes % Not Reportable Monocytes % Not Reportable Eosinophils % Not Reportable Basophils % Not Reportable Absolute Neutrophils Not Reportable Absolute Lymphocytes Not Reportable Absolute Monocytes Not Reportable Absolute Eosinophils Not Reportable Absolute Basophils Not Reportable Urine Color YELLOW Urine Appearance CLEAR Urine pH 7.0 Ur Specific [place] 1.005 Urine Protein NEGATIVE Urine Glucose (UA) NEGATIVE Urine Ketones NEGATIVE Urine Blood NEGATIVE Urine Nitrite NEGATIVE Ur Leukocyte Esterase NEGATIVE Urine WBC (Auto) 1 Urine RBC (Auto) 0 02/03/17 20:40 Creatine Kinase 191 H 02/11/17 18:00 Blood Culture - Preliminary Blood Gram Positive Cocci Clusters 02/11/17 16:55 Blood Culture - Preliminary Blood Gram Positive Cocci Clusters Impressions: Guidance Fluoroscopy 02/04/17 00:00 IMPRESSION: SUCCESSFUL PLACEMENT OF A 5 FR DUAL LUMEN 39 CM PICC IN THE LEFT BASILIC VEIN. Interventional Vascular Procedure 02/04/17 00:00 IMPRESSION: SUCCESSFUL PLACEMENT OF A 5 FR DUAL LUMEN 39 CM PICC IN THE LEFT BASILIC VEIN. PICC Line Insertion 02/04/17 00:00 IMPRESSION: SUCCESSFUL PLACEMENT OF A 5 FR DUAL LUMEN 39 CM PICC IN THE LEFT BASILIC VEIN. Venous Doppler Study 02/04/17 00:00 IMPRESSION: NO EVIDENCE DVT OR SVT IN EITHER LEG. Chest X-Ray 02/11/17 00:00 IMPRESSION: A limited left lower lobe pneumonia is suggested. Assessment & Plan - Diagnosis (1) Sepsis Is this a current diagnosis for this admission?: YesPlan: Secondary to pneumonia and bacteremia. (2) Bacteremia Is this a current diagnosis for this admission?: YesPlan: Likely secondary to PICC line that was removed on 02/11/2017. Start IV vancomycin for now. Repeat blood culture in 24 hours. Once follow-up blood cultures are negative patient will need another PICC line placed and an outpatient IV antibiotic arranged for total of 10 days course. (3) Left lower lobe pneumonia Is this a current diagnosis for this admission?: YesPlan: Start IV Levaquin. Check sputum culture. (4) Sickle-cell disease with pain Is this a current diagnosis for this admission?: YesPlan: Continue pain control. Continue IV fluids. (5) Anemia Qualifiers: Hemolytic anemia type: other hemoglobinopathy Is this a current diagnosis for this admission?: Yes - Time Time Spent with patient: 35 or more minutes
[2017-02-12] MEDS ORDERED: LEVOFLOXACIN 750 MG/D5W RTU 750 MG/150 ML RTUPB IV ONE (11:00)
--- NOTE | 2017-02-12 11:51 | RADIOLOGY REPORT (SQ) ---
EXAM DESCRIPTION: CHEST SINGLE VIEW COMPLETED DATE/TIME: 02/12/2017 11:04 am REASON FOR STUDY: PNA, SSD Patient shielded during filming. COMPARISON: 02/12/2016 NUMBER OF VIEWS: One view. TECHNIQUE: Single frontal radiographic view of the chest acquired. LIMITATIONS: None. FINDINGS: LUNGS AND PLEURA: A few linear patchy markings remain at the left lung base. Few minimal markings also noted right lung base. Upper lung babcock remain clear. MEDIASTINUM AND HILAR STRUCTURES: No masses. Contour normal. HEART AND VASCULAR STRUCTURES: Heart normal in size. Normal vasculature. BONES: No acute findings. HARDWARE: None in the chest. OTHER: No other significant finding. IMPRESSION: Patchy bibasilar changes. TECHNICAL DOCUMENTATION: JOB ID: [id number] [employer]- All Rights Reserved
[2017-02-12] MEDS: VANCOMYCIN HCL 750 MG in DEXTROSE 5%-WATER 250 ML IV SCH ×3 (13:15→23:49)
[2017-02-12] MEDS: NORMAL SALINE 1000 ML 1,000 ML IV PRN (16:59)
[2017-02-12] MEDS: ZOLPIDEM TARTRATE 5 MG TABLET PO SCH (22:50)
[2017-02-12] MEDS: AMITRIPTYLINE HCL 50 MG TABLET PO SCH (22:50)
[2017-02-13] MEDS: VANCOMYCIN HCL 750 MG in DEXTROSE 5%-WATER 250 ML IV SCH ×3 (05:50→18:25)
[2017-02-13 07:04] LABS: ABSOLUTE BASOPHILS # (AUTO) 0.1 10^3/uL (0.0-0.2); ABSOLUTE LYMPHOCYTES (AUTO) 1.3 10^3/uL (0.5-4.7); ABSOLUTE MONOCYTES (AUTO) 0.7 10^3/uL (0.1-1.4); ABSOLUTE NEUT (AUTO) 2.5 10^3/uL (1.7-8.2); BASOPHILS % (AUTO) 1.3 % (0-2); EOSINOPHILS % (AUTO) 0.2 % (0-6); HEMATOCRIT 28.6 % (36.0-47.0); HGB HCT DIFFERENCE 1.4; MEAN CORPUSCULAR HEMOGLOBIN 37.4 pg (27.0-33.4); MEAN CORPUSCULAR HGB CONC 34.8 g/dL (32.0-36.0); MEAN CORPUSCULAR VOLUME 107 fl (80-97); MONOCYTES % (AUTO) 14.8 % (3-13); RED BLOOD COUNT 2.67 10^6/uL (3.72-5.28); RED CELL DISTRIBUTION WIDTH 27.1 % (11.5-14.0); SEGMENTED NEUTROPHILS % (AUTO) 54.7 % (42-78); WHITE BLOOD COUNT 4.6 10^3/uL (4.0-10.5)
[2017-02-13 07:11] LABS: ANION GAP 11 (5-19); BLOOD UREA NITROGEN 2 mg/dL (7-20); CARBON DIOXIDE 27 mmol/L (22-30); CHLORIDE 101 mmol/L (98-107); CREATININE RESULT 0.45 mg/dL (0.52-1.25); GLUCOSE 116 mg/dL (75-110); SODIUM 138.7 mmol/L (137-145)
[2017-02-13 07:17] LABS: TOXIC GRANULATION 1+; TOXIC VACUOLATION PRESENT
[2017-02-13 07:18] LABS: ANISOCYTOSIS 3+; POIKILOCYTOSIS 2+; POLYCHROMASIA SLIGHT
[2017-02-13 07:19] LABS: ACANTHOCYTES SLIGHT; OVALOCYTES 1+; TARGET CELLS 2+; TEAR DROP CELLS SLIGHT
[2017-02-13 07:21] LABS: POTASSIUM 2.2 mmol/L (3.6-5.0)
[2017-02-13 07:22] LABS: CALCIUM 6.9 mg/dL (8.4-10.2)
[2017-02-13] MEDS: POTASSI CL 20 MEQ/50 ML RIDER 50 ML IV SCH ×3 (08:05→13:54)
[2017-02-13] MEDS: ENOXAPARIN SODIUM INJ 40 MG/0.4 ML DISP.SYRIN SUBCUT SCH (08:05)
[2017-02-13] MEDS: OXYCODONE HCL IR 5 MG TABLET PO PRN (08:05)
[2017-02-13] MEDS: AMITRIPTYLINE HCL 25 MG TABLET PO SCH (08:05)
--- NOTE | 2017-02-13 08:29 | PDOC PROGRESS REPORT ---
Subjective Progress Note for:: 02/13/17 Subjective:: Fevers have resolved. Patient has subjective complaint of pain in her back not relieved by oral pain medicine. She denies shortness of breath, nausea, vomiting. Physical Exam Vital Signs: Temp Pulse Resp BP Pulse Ox 98.3 F 66 16 123/69 100 02/13/17 07:35 02/13/17 07:35 02/13/17 07:35 02/13/17 07:35 02/13/17 07:35 Intake & Output 02/12/17 02/13/17 02/14/17 06:59 06:59 06:59 Intake Total 120 1150 Balance 120 1150 Weight 65.4 kg 66.5 kg GENERAL: No acute distress HEENT: Conjunctiva clear, nonicteric, moist mucous membranes, no JVD, midline trachea RESPIRATORY: Clear to auscultation bilaterally, no wheezes, no rhonchi CARDIAC: Regular rate and rhythm, no murmurs/gallops/rubs ABDOMEN: Soft, nondistended, nontender, positive bowel sounds, no rebound, no guarding EXTREMETIES: No edema, cyanosis, clubbing NEUROLOGIC: Alert, oriented to person/place/time, CN's grossly intact, no focal deficits SKIN: No rash, wounds PSYCH: Normal mood, normal affect Results Laboratory Results: 02/13/17 06:44 02/13/17 06:44 02/13/17 02/13/17 06:44 06:44 WBC 4.6 RBC 2.67 L Hgb 10.0 L Hct 28.6 L MCV 107 H MCH 37.4 H MCHC 34.8 RDW 27.1 H Plt Count 222 Seg Neutrophils % 54.7 Lymphocytes % 29.0 Monocytes % 14.8 H Eosinophils % 0.2 Basophils % 1.3 Absolute Neutrophils 2.5 Absolute Lymphocytes 1.3 Absolute Monocytes 0.7 Absolute Eosinophils 0.0 Absolute Basophils 0.1 Sodium 138.7 Potassium 2.2 L* Chloride 101 Carbon Dioxide 27 Anion Gap 11 BUN 2 L Creatinine 0.45 L Est GFR ( Amer) > 60 Est GFR (Non-Af Amer) > 60 Glucose 116 H Calcium 6.9 L* 02/03/17 20:40 Creatine Kinase 191 H Impressions: Guidance Fluoroscopy 02/04/17 00:00 IMPRESSION: SUCCESSFUL PLACEMENT OF A 5 FR DUAL LUMEN 39 CM PICC IN THE LEFT BASILIC VEIN. Interventional Vascular Procedure 02/04/17 00:00 IMPRESSION: SUCCESSFUL PLACEMENT OF A 5 FR DUAL LUMEN 39 CM PICC IN THE LEFT BASILIC VEIN. PICC Line Insertion 02/04/17 00:00 IMPRESSION: SUCCESSFUL PLACEMENT OF A 5 FR DUAL LUMEN 39 CM PICC IN THE LEFT BASILIC VEIN. Venous Doppler Study 02/04/17 00:00 IMPRESSION: NO EVIDENCE DVT OR SVT IN EITHER LEG. Chest X-Ray 02/12/17 10:42 IMPRESSION: Patchy bibasilar changes. Assessment & Plan - Diagnosis (1) Sepsis Is this a current diagnosis for this admission?: YesPlan: Secondary to pneumonia and bacteremia. Fevers now resolved. White blood count normal. Blood pressure stable. (2) Bacteremia Is this a current diagnosis for this admission?: YesPlan: Likely secondary to PICC line that was removed on 02/11/2017 or possibly pneumonia sputum culture is tentatively growing gram positive cocci as well. Continue pending IV vancomycin for now. Repeat blood culture 02/13/2017 pending. (3) Left lower lobe pneumonia Is this a current diagnosis for this admission?: YesPlan: Continue IV Levaquin and IV vancomycin. Sputum culture tentatively growing gram -positive cocci. (4) Sickle-cell disease with pain Is this a current diagnosis for this admission?: YesPlan: Continue pain control. Continue IV fluids. (5) Anemia Qualifiers: Hemolytic anemia type: other hemoglobinopathy Is this a current diagnosis for this admission?: Yes (6) Hypokalemia Is this a current diagnosis for this admission?: YesPlan: Replace. Repeat potassium and magnesium level in the morning. - Time Time Spent with patient: 35 or more minutes Anticipated discharge: Home Within: within 72 hours
[2017-02-13] MEDS: AMLODIPINE BESYLATE 5 MG TABLET PO SCH (09:44)
[2017-02-13] MEDS: FOLIC ACID 1 MG TABLET PO SCH (09:45)
[2017-02-13] MEDS: FLUTICASONE NASAL SPRAY 50 MCG/SPRY 120 SPRAY/16 GM NAREB SCH (10:24)
[2017-02-13] MEDS: LEVOFLOXACIN 750 MG/D5W RTU 750 MG/150 ML RTUPB IV SCH (10:28)
[2017-02-13] MEDS: HYDROMORPHONE HCL INJ/PF 2 MG/ML AMPULE IV PRN ×3 (11:56→23:37)
[2017-02-13] MEDS: DOCUSATE SODIUM 100 MG CAPSULE PO SCH ×2 (14:22→19:00)
[2017-02-13] MEDS: NORMAL SALINE 10 ML SDV (SCHEDULED) IV SCH ×2 (14:22→21:30)
[2017-02-13] MEDS: POTASSI CL 20 MEQ/NS 1L 1,000 ML IV PRN (16:00)
[2017-02-13] MEDS: AMITRIPTYLINE HCL 50 MG TABLET PO SCH (21:41)
[2017-02-13] MEDS: ZOLPIDEM TARTRATE 5 MG TABLET PO SCH (21:41)
[2017-02-14] MEDS: VANCOMYCIN HCL 750 MG in DEXTROSE 5%-WATER 250 ML IV SCH ×2 (00:26→05:24)
[2017-02-14] MEDS: POTASSI CL 20 MEQ/NS 1L 1,000 ML IV PRN (00:27)
[2017-02-14] MEDS: HYDROMORPHONE HCL INJ/PF 2 MG/ML AMPULE IV PRN ×9 (01:35→22:31)
[2017-02-14 07:18] LABS: HEMATOCRIT 26.2 % (36.0-47.0); HGB HCT DIFFERENCE 0.8; MEAN CORPUSCULAR HEMOGLOBIN 36.2 pg (27.0-33.4); MEAN CORPUSCULAR HGB CONC 34.2 g/dL (32.0-36.0); MEAN CORPUSCULAR VOLUME 106 fl (80-97); RED BLOOD COUNT 2.48 10^6/uL (3.72-5.28); RED CELL DISTRIBUTION WIDTH 26.7 % (11.5-14.0)
[2017-02-14 07:48] LABS: ANISOCYTOSIS 3+; BAND NEUTROPHILS % (MANUAL) 2 % (3-5); BASOPHILS % (MANUAL) 0 % (0-2); BURR CELLS SLIGHT; EOSINOPHILS % (MANUAL) 0 % (0-6); HYPOCHROMASIA SLIGHT; LYMPHOCYTES % (MANUAL) 44 % (13-45); NUCLEATED RED BLOOD CELLS 1 /100 WBC (0); OVALOCYTES 2+; POIKILOCYTOSIS 2+; POLYCHROMASIA 1+; TARGET CELLS SLIGHT; TOTAL CELLS COUNTED 100; TOXIC GRANULATION 1+
[2017-02-14] MEDS: ENOXAPARIN SODIUM INJ 40 MG/0.4 ML DISP.SYRIN SUBCUT SCH (07:55)
[2017-02-14] MEDS: AMITRIPTYLINE HCL 25 MG TABLET PO SCH (07:56)
[2017-02-14] MEDS: DOCUSATE SODIUM 100 MG CAPSULE PO SCH ×2 (09:27→17:52)
[2017-02-14] MEDS: NORMAL SALINE 10 ML SDV (SCHEDULED) IV SCH ×2 (09:27→22:32)
[2017-02-14] MEDS: LEVOFLOXACIN 750 MG/D5W RTU 750 MG/150 ML RTUPB IV SCH (09:32)
[2017-02-14] MEDS: FOLIC ACID 1 MG TABLET PO SCH (09:32)
[2017-02-14] MEDS: AMLODIPINE BESYLATE 5 MG TABLET PO SCH (09:32)
[2017-02-14] MEDS: FLUTICASONE NASAL SPRAY 50 MCG/SPRY 120 SPRAY/16 GM NAREB SCH (09:32)
[2017-02-14 09:37] LABS: ANION GAP 9 (5-19); CARBON DIOXIDE 24 mmol/L (22-30); CHLORIDE 106 mmol/L (98-107); CREATININE RESULT 0.45 mg/dL (0.52-1.25); GLUCOSE 110 mg/dL (75-110); MAGNESIUM 1.3 mg/dL (1.6-2.3); POTASSIUM 3.1 mmol/L (3.6-5.0); SODIUM 139.4 mmol/L (137-145)
[2017-02-14 09:43] LABS: BLOOD UREA NITROGEN < 2 mg/dL (7-20)
--- NOTE | 2017-02-14 10:25 | PDOC PROGRESS REPORT ---
Subjective Progress Note for:: 02/14/17 Subjective:: Patient has continued pain in the thoracic and lumbar spine that she states is out of character for her normal sickle cell pain. She denies fevers or chills. She denies headache or photophobia. Physical Exam Vital Signs: Temp Pulse Resp BP Pulse Ox 98.0 F 82 18 127/76 H 97 02/14/17 04:13 02/14/17 09:11 02/14/17 09:11 02/14/17 04:13 02/14/17 09:11 Intake & Output 02/13/17 02/14/17 02/15/17 06:59 06:59 06:59 Intake Total 1150 850 Balance 1150 850 Weight 66.5 kg 66.8 kg GENERAL: No acute distress HEENT: Conjunctiva clear, nonicteric, moist mucous membranes, no JVD, midline trachea RESPIRATORY: Clear to auscultation bilaterally, no wheezes, no rhonchi CARDIAC: Regular rate and rhythm, no murmurs/gallops/rubs ABDOMEN: Soft, nondistended, nontender, positive bowel sounds, no rebound, no guarding EXTREMETIES: No edema, cyanosis, clubbing NEUROLOGIC: Alert, oriented to person/place/time, CN's grossly intact, no focal deficits SKIN: No rash, wounds PSYCH: Normal mood, normal affect Results Laboratory Results: 02/14/17 06:07 02/14/17 08:35 02/14/17 02/14/17 02/14/17 06:07 06:07 08:35 WBC 5.0 RBC 2.48 L Hgb 9.0 L Hct 26.2 L MCV 106 H MCH 36.2 H MCHC 34.2 RDW 26.7 H Plt Count 269 Seg Neutrophils % Not Reportable Lymphocytes % Not Reportable Monocytes % Not Reportable Eosinophils % Not Reportable Basophils % Not Reportable Absolute Neutrophils Not Reportable Absolute Lymphocytes Not Reportable Absolute Monocytes Not Reportable Absolute Eosinophils Not Reportable Absolute Basophils Not Reportable Sodium Cancelled 139.4 Potassium Cancelled 3.1 L Chloride Cancelled 106 Carbon Dioxide Cancelled 24 Anion Gap Cancelled 9 BUN Cancelled < 2 L Creatinine Cancelled 0.45 L Est GFR ( Amer) Cancelled > 60 Est GFR (Non-Af Amer) Cancelled > 60 Glucose Cancelled 110 Calcium Cancelled 7.0 L* Magnesium Cancelled 1.3 L 02/11/17 16:55 Blood Blood Culture - Final Mrsa (Meth Resis Staph Aureus) 02/12/17 11:44 Sputum Gram Stain - Final 02/12/17 11:44 Sputum Sputum Culture - Final Mrsa (Meth Resis Staph Aureus) Yeast, Not Julinaa Albicans Normal Kassie 02/11/17 18:00 Blood Blood Culture - Final Mrsa (Meth Resis Staph Aureus) 02/03/17 20:40 Creatine Kinase 191 H Impressions: Guidance Fluoroscopy 02/04/17 00:00 IMPRESSION: SUCCESSFUL PLACEMENT OF A 5 FR DUAL LUMEN 39 CM PICC IN THE LEFT BASILIC VEIN. Interventional Vascular Procedure 02/04/17 00:00 IMPRESSION: SUCCESSFUL PLACEMENT OF A 5 FR DUAL LUMEN 39 CM PICC IN THE LEFT BASILIC VEIN. PICC Line Insertion 02/04/17 00:00 IMPRESSION: SUCCESSFUL PLACEMENT OF A 5 FR DUAL LUMEN 39 CM PICC IN THE LEFT BASILIC VEIN. Venous Doppler Study 02/04/17 00:00 IMPRESSION: NO EVIDENCE DVT OR SVT IN EITHER LEG. Chest X-Ray 02/12/17 10:42 IMPRESSION: Patchy bibasilar changes. Assessment & Plan - Diagnosis (1) Sepsis Is this a current diagnosis for this admission?: YesPlan: Secondary to pneumonia and bacteremia. Fevers now resolved. White blood count normal. Blood pressure stable. (2) Bacteremia Is this a current diagnosis for this admission?: YesPlan: Patient has MRSA bacteremia. Case discussed with Dr. Penn of infectious disease at [facility] on 02/14/2017. ID doctor recommends 14 days IV vancomycin past last negative blood culture. PICC line will be replaced today. We will arrange home IV infusion for vancomycin. HAMZAH Conti also recommends echocardiogram and MRI of the spine given patient's new complaint of mid back pain. (3) Left lower lobe pneumonia Is this a current diagnosis for this admission?: YesPlan: IV vancomycin. Sputum culture with MRSA. (4) Sickle-cell disease with pain Is this a current diagnosis for this admission?: YesPlan: Continue pain control. Continue IV fluids. (5) Anemia Qualifiers: Hemolytic anemia type: other hemoglobinopathy Is this a current diagnosis for this admission?: YesPlan: H&H low but stable. (6) Hypokalemia Is this a current diagnosis for this admission?: Yes - Time Time Spent with patient: 35 or more minutes
[2017-02-14] MEDS ORDERED: ACETAMINOPHEN 325 MG TABLET PO PRN (10:47)
[2017-02-14] MEDS ORDERED: BUTALB/ACETAMINOPHEN/CAFFEINE 1 TAB EACH PO PRN (10:54)
[2017-02-14] MEDS ORDERED: CETIRIZINE 10 MG TABLET PO PRN (10:55)
[2017-02-14] MEDS ORDERED: DIPHENHYDRAMINE HCL 25 MG CAPSULE PO PRN (10:56)
[2017-02-14] MEDS ORDERED: POLYETHYLENE GLYCOL 3350 POWDER 17 GM/1 PACKET PO PRN (10:57)
[2017-02-14] MEDS ORDERED: SENNOSIDES/DOCUSATE 8.6-50 MG 1 EACH TABLET PO PRN (10:58)
[2017-02-14] MEDS ORDERED: IPRATROPIUM/ALBUTEROL 0.5-2.5 MG/3 ML AMPUL NEB PRN (11:02)
[2017-02-14] MEDS ORDERED: MAGNESIUM HYDROXIDE SUSP 30 ML UDCUP PO PRN (11:03)
[2017-02-14] MEDS ORDERED: ONDANSETRON HCL INJ/PF 4 MG/2 ML SDV IV PRN (11:04)
[2017-02-14] MEDS ORDERED: CYCLOBENZAPRINE HCL 10 MG TABLET PO PRN (11:06)
[2017-02-14] MEDS ORDERED: NORMAL SALINE 10 ML SDV (AFTER EACH USE) IV PRN (11:07)
[2017-02-14] MEDS ORDERED: NALOXONE HCL INJ 2 MG/2 ML DISP.SYRIN IV PRN (11:09)
[2017-02-14] MEDS: DAPTOMYCIN 500 MG in NORMAL SALINE 50 ML IV SCH (12:08)
--- NOTE | 2017-02-14 12:09 | RADIOLOGY REPORT (SQ) ---
EXAM DESCRIPTION: PICC INSERTION; FLUORO/CV PLACEMENT; U/S GUIDE FOR VASCULAR ACCESS COMPLETED DATE/TIME: 02/14/2017 11:57 am REASON FOR STUDY: prolonged IV Abx; IV ABX COMPARISON: 02/04/2017 PICC placement FLUOROSCOPY TIME: 1 minutes 16 seconds 2 C-arm and 1 ultrasound images saved to PACS. TECHNIQUE: Fluoroscopic and ultrasound guided PICC placement. LIMITATIONS: None. PROCEDURE: After written consent and assessment were obtained, the patient was brought into the fluo roscopy room and place supine on the table. Ultrasound was used on the patient's right arm for PICC access. The right arm was prepped and draped in a sterile fashion along with the ultrasound probe. Th e entry site was anesthetized with 3 mL of 1% lidocaine. A 21 gauge 7 cm needle was advanced through the skin and into the right basilic vein under live ultrasound guidance. An ultrasound image was carleen ed to PACS confirming access site. A .018 guide wire was then inserted through the needle and into t he venous system. The needle was the removed and an 11 blade scalpel was used to make a 1cm skin inci helene. A 5 fr peel-away sheath was advanced over the wire and into the venous system. A measurement w as then made using the existing wire and live fluoroscopic guidance. The wire was then removed and th e trimmed. The PICC was advanced through the peel-away sheath and into the venous system. The peel-aw ay sheath was removed and the catheter was adhered to the patients arm with a stat lock. The catheter was then aspirated and flushed and a sterile bandage was placed over the access site. A fluoroscopi c spot image was saved to PACS confirming the catheter tip within the superior vena cava. IMPRESSION: SUCCESSFUL PLACEMENT OF A 5 FR DUAL LUMEN 35 CM PICC IN THE RIGHT BASILIC VEIN. COMMENT: Patient medication list reviewed: Yes- Quality ID# 130:Eligible professional attests to doc umenting in the medical record they obtained, updated, or reviewed the patient's current medications. . Quality ID 145: Final reports for procedures using fluoroscopy that document radiation exposure rebecca angy, or exposure time and number of fluorographic images (if radiation exposure indices are not avail able) Quality ID #76: The patient was prepped and draped using maximum sterile barrier technique including cap, mask, sterile gown, sterile gloves, a large sterile sheet, hand hygiene, and 2% Chlorhexidine fo r cutaneous antisepsis. When ultrasound is used, sterile ultrasound techniques are followed requiring sterile gel and sterile probes. TECHNICAL DOCUMENTATION: JOB ID: [id number] [employer] [facility] [employer]- All Rights Reserved
[2017-02-14] MEDS: POTASSI CL 20 MEQ/NS 1L 1000 ML IV PRN (15:18)
--- NOTE | 2017-02-14 17:52 | XCELERA REPORT ---
[address] [address] Transthoracic Echocardiogram Report Name: PRANAV JOINER Age: 26 yrs Gender: Female : 1990 Patient Status: Inpatient Patient Location: 2N\S\206\S\A Study Date: 02/14/2017 02:37 PM Height: 64 in Weight: 147 lb BSA: 1.7 m2 Procedure: A two-dimensional transthoracic echocardiogram with color flow and Doppler was performed. Study Quality: Fair. Reason For Study: MRSA BACTEREMIA / ENDOCARDIITIS History: MRSA BACTEREMIA / ENDOCARDIITIS. Ordering Physician: MONICA BOYD Performed By: Janay Peter Interpretation Summary No vegetation seen.If suspicion is still strong recommend WILBERT. The left ventricle is normal in size. There is normal left ventricular wall thickness. LV EF is > than 60%% Left ventricular systolic function is normal. Doppler measurements suggest normal left ventricular diastolic function The left ventricular wall motion is normal. There is no thrombus. The right atrium is normal. The left atrium is borderline dilated. The interatrial septum is intact with no evidence for an atrial septal defect. There is no evidence of mitral valve prolapse. There is no vegetation seen on the mitral valve. There is no mitral valve stenosis. The aortic valve is trileaflet. There is no aortic valvular vegetation. There is no aortic valve stenosis There is no LVOT obstruction. No aortic regurgitation is present. No vegetation on the tricuspid valve. There is no tricuspid stenosis. There is a mild amount of tricuspid regurgitation No significant pulmonary hypertension.RVSP is 31 mm of Hg , with RA mean of 5,and this is just above ttthe upper limits of 30. There is no vegetation on the pulmonic valve. There is no pulmonic valvular stenosis. There is no pulmonic valvular regurgitation. There is no pericardial effusion. No vegetation seen.If suspicion is still strong recommend WILBERT. MMode/2D Measurements \T\ Calculations RVDd: 2.8 cm LVIDd: 4.9 cm FS: 35.0 % Ao root diam: 2.5 cm IVSd: 0.80 cm LVIDs: 3.2 cm EDV(Teich): 110.2 ml LVPWd: 0.91 cmESV(Teich): 39.4 ml Ao root area: 5.0 cm2 EF(Teich): 64.2 % LVOT diam: 2.0 cm LVOT area: 3.1 cm2 Doppler Measurements \T\ Calculations MV E max hemal: MV dec slope: Ao V2 max: LV V1 max P.4 cm/sec 894.1 cm/sec2 179.4 cm/sec 8.4 mmHg MV A max hemal: MV dec time: Ao max PG: LV V1 max: 75.0 cm/sec 0.17 sec 12.9 mmHg 144.7 cm/sec MV E/A: 2.0 BREANNE(V,D): 2.5 cm2 PA V2 max: TR max hemal: 117.0 cm/sec 236.8 cm/sec PA max P.5 mmHgTR max P.6 mmHg Left Ventricle The left ventricle is normal in size. There is normal left ventricular wall thickness. LV EF is > than 60%%. Left ventricular systolic function is normal. Doppler measurements suggest normal left ventricular diastolic function. The left ventricular wall motion is normal. There is no thrombus. Right Ventricle The right ventricle is normal in size and function. Atria The right atrium is normal. The left atrium is borderline dilated. The interatrial septum is intact with no evidence for an atrial septal defect. Mitral Valve There is no evidence of mitral valve prolapse. There is no vegetation seen on the mitral valve. There is no mitral valve stenosis. There is a trace amount of mitral regurgitation. Aortic Valve The aortic valve is trileaflet. The aortic valve opens well. There is no aortic valvular vegetation. There is no aortic valve stenosis. There is no LVOT obstruction. No aortic regurgitation is present. Tricuspid Valve No vegetation on the tricuspid valve. There is no tricuspid stenosis. There is a mild amount of tricuspid regurgitation. No significant pulmonary hypertension.RVSP is 31 mm of Hg , with RA mean of 5,and this is just above ttthe upper limits of 30. Pulmonic Valve There is no vegetation on the pulmonic valve. There is no pulmonic valvular stenosis. There is no pulmonic valvular regurgitation. Great Vessels The aortic root is normal size. Effusions There is no pericardial effusion. : MONICA BOYD > Jessica Good
--- NOTE | 2017-02-14 19:29 | RADIOLOGY REPORT (SQ) ---
EXAM DESCRIPTION: MRI THORACIC SPINE COMBO COMPLETED DATE/TIME: 02/14/2017 6:49 pm REASON FOR STUDY: back pain, MRSA bacteremia COMPARISON: None. TECHNIQUE: Sagittal and Axial imaging includes T1, T2, STIR and gradient echo sequences. T1 post ga dolinium sequences. CONTRAST TYPE AND DOSE: 10 mL MultiHance RENAL FUNCTION: GFR greater than 60 LIMITATIONS: Patient motion FINDINGS: LOCALIZER: No worrisome findings. ALIGNMENT: Normal. VERTEBRAE: Intact. BONE MARROW: Normal. No marrow replacement or reactive changes. HARDWARE: None in the spine. CORD: Normal in size and signal intensity. SOFT TISSUES: No soft tissue masses. THORACIC DISCS T1-T12: No significant spinal stenosis or exit foraminal stenosis. LOWER CERVICAL: Incompletely imaged. No significant spinal stenosis or exit foraminal stenosis. UPPER LUMBAR: Incompletely imaged. No significant spinal stenosis or exit foraminal stenosis. ENHANCEMENT: No abnormal enhancement. OTHER: There are small bilateral pleural effusions. IMPRESSION: NORMAL MRI THORACIC SPINE. TECHNICAL DOCUMENTATION: JOB ID: [id number] [employer]- All Rights Reserved
--- NOTE | 2017-02-14 19:30 | RADIOLOGY REPORT (SQ) ---
EXAM DESCRIPTION: MRI LUMBAR SPINE COMBO COMPLETED DATE/TIME: 02/14/2017 6:49 pm REASON FOR STUDY: back pain, MRSA bacteremia COMPARISON: None. TECHNIQUE: Sagittal and Axial imaging includes T1, T1 post gadolinium, T2, STIR and gradient echo se quences. Coronal T2/HASTE imaging. CONTRAST TYPE AND DOSE: 10 mL MultiHance RENAL FUNCTION: GFR greater than 60 LIMITATIONS: None. FINDINGS: VISUALIZED UPPER ABDOMEN: Limited evaluation. No acute or suspicious findings suggested. SEGMENTATION: No transitional anatomy. The lowest well-developed disc space is labeled L5-S1. ALIGNMENT: Anatomic. VERTEBRAE: Intact. No fractures. BONE MARROW: Normal. No marrow replacement or reactive changes. DISC SIGNAL: Normal. No significant abnormal signal or loss of height. POSTERIOR ELEMENTS: Generally intact. No pars defect evident. HARDWARE: None in the spine. CORD AND CONUS: Normal in size and signal intensity. Conus at the appropriate level. SOFT TISSUES: No aortic aneurysm seen. No bulky retroperitoneal adenopathy or mass. No paraspinal mas s or fluid. L1-L2: No significant spinal stenosis or exit foraminal stenosis. L2-L3: No significant spinal stenosis or exit foraminal stenosis. L3-L4: No significant spinal stenosis or exit foraminal stenosis. L4-L5: No significant spinal stenosis or exit foraminal stenosis. L5-S1: No significant spinal stenosis or exit foraminal stenosis. LOWER THORACIC: Incompletely imaged. No stenosis seen. SACRUM: Visualized upper sacrum intact. ENHANCEMENT: No abnormal enhancement. OTHER: No other significant findings. IMPRESSION: NORMAL MRI LUMBAR SPINE. TECHNICAL DOCUMENTATION: JOB ID: [id number] [employer]- All Rights Reserved
[2017-02-14] MEDS: AMITRIPTYLINE HCL 50 MG TABLET PO SCH (22:31)
[2017-02-15] MEDS: HYDROMORPHONE HCL INJ/PF 2 MG/ML AMPULE IV PRN ×9 (01:29→22:43)
[2017-02-15] MEDS: POTASSI CL 20 MEQ/NS 1L 1000 ML IV PRN ×3 (01:30→22:53)
[2017-02-15] MEDS: ZOLPIDEM TARTRATE 5 MG TABLET PO SCH ×2 (05:06→22:40)
[2017-02-15] MEDS: ENOXAPARIN SODIUM INJ 40 MG/0.4 ML DISP.SYRIN SUBCUT SCH (08:23)
[2017-02-15] MEDS: AMITRIPTYLINE HCL 25 MG TABLET PO SCH (08:27)
[2017-02-15] MEDS: DOCUSATE SODIUM 100 MG CAPSULE PO SCH ×2 (09:59→18:08)
[2017-02-15] MEDS: AMLODIPINE BESYLATE 5 MG TABLET PO SCH (10:02)
[2017-02-15] MEDS: FOLIC ACID 1 MG TABLET PO SCH (10:02)
[2017-02-15] MEDS: FLUTICASONE NASAL SPRAY 50 MCG/SPRY 120 SPRAY/16 GM NAREB SCH (10:02)
[2017-02-15] MEDS: NORMAL SALINE 10 ML SDV (SCHEDULED) IV SCH ×2 (10:04→22:43)
[2017-02-15] MEDS: DAPTOMYCIN 500 MG in NORMAL SALINE 50 ML IV SCH (12:39)
--- NOTE | 2017-02-15 13:08 | PDOC DISCHARGE SUMMARY ---
General - Admit/Disc Date/PCP Admission Date/Primary Care Provider: 02/03/17 16:37 ROXANA ARCHULETA Discharge Date: 02/15/17 - Discharge Diagnosis (1) Sepsis Is this a current diagnosis for this admission?: Yes (2) Bacteremia Is this a current diagnosis for this admission?: Yes (3) Left lower lobe pneumonia Is this a current diagnosis for this admission?: Yes (4) Sickle-cell disease with pain Is this a current diagnosis for this admission?: Yes (5) Anemia Is this a current diagnosis for this admission?: Yes (6) Hypokalemia Is this a current diagnosis for this admission?: Yes - Additional Information Resuscitation Status: Full Code Discharge Diet: Regular Discharge Activity: Activity As Tolerated, Balance Activity w/Rest Home Medications: Butalb/Acetaminophen/Caffeine [Fioricet 50-300-40 mg Capsule] 1 cap PO Q6 PRN Eszopiclone [Lunesta] 2 mg PO QHS 08/14/16 Folic Acid [Folvite 1 mg Tablet] 1 mg PO DAILY 08/14/16 Hydroxyurea [Hydrea 500 mg Capsule] 3 cap PO TUTH@1000 08/14/16 Hydroxyurea [Hydrea 500 mg Capsule] 4 cap PO MOWEFR@1000 08/14/16 Hydroxyzine Pamoate [Vistaril 50 mg Capsule] 50 mg PO Q6 PRN 08/14/16 Promethazine HCl [Phenergan 25 mg Tablet] 25 mg PO Q6 08/14/16 Hydromorphone HCl [Dilaudid 2 mg Tablet] 2 mg PO Q4HP PRN #14 tablet 11/26/16 Amitriptyline HCl 25 mg PO DAILY 02/03/17 Amitriptyline HCl 50 mg PO HSP PRN 02/03/17 Amlodipine Besylate 5 mg PO DAILY 02/03/17 Cetirizine HCl [Allergy Relief] 10 mg PO HSP PRN 02/03/17 Fluticasone Propionate [Flonase Nasal [place] 50 Mcg/[place] 16 gm] 16 gm NASL DAILY 02/03/17 Daptomycin [Cubicin Inj 500 mg Vial] 500 mg IV NOON 12 Days 02/15/17 Oxycodone HCl [Oxycodone HCl 10 MG Tablet] 10 mg PO Q4H PRN #30 tablet 02/15/17 History of Present Illness Patient complains of: Pain History of Present Illness: PRANAV JOINER is a 26 year old female with hx of sickle cell disease and frequent ED or hospital visit for "crisis", 12 in the last 12 months, often with normal retic count who returns to the ED today with complaints of "all over pain but mostly in my legs and lower back' for the past 2 wks. Described as sharp, stabbing pain radiating "all over my body", constant with asctd nausea , worse with movement or "nothing at all", better initially with her home oxycodone up to 4-5x/d but even that isn't holding her anymore. In fact, she ran out of her oxys this morning and isn't able to get a refill until 02/05 and came to the hospital "not for that reason but I knew I couldn't do this at home anymore". she's been treating with increased fluid intake and rest but "pain kept getting worse". she reports recent exposure to family member with "upper respiratory infection" and notes cough with congestion over the past 7-10d, with greenish or white phlegm occasionally specked with blood; she had 2d of diarrhea earlier this week that confined her to the bed which is unusual since she chronically constipated from chronic narcotic use. she denies melena, hematochezia, dysuria , hematuria, bruising, rash, recent travel, swollen glands or sore throat, fevers/chills, emesis, swollen joints. eval in ED shows normal retic count, LFTs including bilirubin, CBC at baseline, normal renal function, clear urine but her pain is not well controlled and we were consulted to admit for further eval and management. Hospital Course Hospital Course: Patient was initially admitted for sickle cell disease associated pain crisis. Reticulocyte count was normal on admission. Hematology recommended that she be admitted for pain control. Patient historically has long admissions for pain control. She had PICC line placed during admission for prolonged IV access. On 02/10/2017 she developed fevers and PICC line was discontinued blood cultures were drawn. Chest x-ray also showed left lower lobe airspace disease at that time that was new from admission. Sputum cultures were obtained. Patient was started on IV Levaquin and IV vancomycin. Blood cultures grew MRSA and sputum culture grew MRSA as well with same susceptibility pattern. Vancomycin ALTON indicated organism would not be susceptible to IV vancomycin and therefore patient was transitioned to IV daptomycin. Follow-up blood cultures were negative and another PICC line was placed in order to discharge patient home with home IV infusion. Case was discussed with infectious disease at [facility]. Recommended duration of treatment 14 days. Echocardiogram showed no evidence of valvular vegetation. Patient was specifically complaining of mid back pain, however MRI of the thoracic and lumbar spine showed no evidence of abscess/discitis. Physical Exam Vital Signs: Temp Pulse Resp BP Pulse Ox 98.5 F 88 16 111/63 97 02/15/17 11:32 02/15/17 11:32 02/15/17 11:32 02/15/17 11:32 02/15/17 11:32 Intake & Output 02/14/17 02/15/17 02/16/17 06:59 06:59 06:59 Intake Total 850 2280 Balance 850 2280 Weight 66.8 kg 66.8 kg GENERAL: No acute distress HEENT: Conjunctiva clear, nonicteric, moist mucous membranes, no JVD, midline trachea RESPIRATORY: Clear to auscultation bilaterally, no wheezes, no rhonchi CARDIAC: Regular rate and rhythm, no murmurs/gallops/rubs ABDOMEN: Soft, nondistended, nontender, positive bowel sounds, no rebound, no guarding EXTREMETIES: No edema, cyanosis, clubbing NEUROLOGIC: Alert, oriented to person/place/time, CN's grossly intact, no focal deficits SKIN: No rash, wounds PSYCH: Normal mood, normal affect Results Laboratory Results: 02/14/17 06:07 02/14/17 08:35 02/03/17 20:40 Creatine Kinase 191 H 02/13/17 08:00 Blood Culture - Preliminary Blood NO GROWTH AFTER 48 HOURS 02/13/17 06:44 Blood Culture - Preliminary Blood NO GROWTH AFTER 48 HOURS 02/12/17 11:44 Gram Stain - Final Sputum Sputum Culture - Final Mrsa (Meth Resis Staph Aureus) Yeast, Not Juliana Albicans Normal Kassie 02/11/17 18:00 Blood Culture - Final Blood Mrsa (Meth Resis Staph Aureus) 02/11/17 16:55 Blood Culture - Final Blood Mrsa (Meth Resis Staph Aureus) Impressions: Venous Doppler Study 02/04/17 00:00 IMPRESSION: NO EVIDENCE DVT OR SVT IN EITHER LEG. Chest X-Ray 02/12/17 10:42 IMPRESSION: Patchy bibasilar changes. Guidance Fluoroscopy 02/14/17 00:00 IMPRESSION: SUCCESSFUL PLACEMENT OF A 5 FR DUAL LUMEN 35 CM PICC IN THE RIGHT BASILIC VEIN. Interventional Vascular Procedure 02/14/17 00:00 IMPRESSION: SUCCESSFUL PLACEMENT OF A 5 FR DUAL LUMEN 35 CM PICC IN THE RIGHT BASILIC VEIN. Lumbar Spine MRI 02/14/17 00:00 IMPRESSION: NORMAL MRI LUMBAR SPINE. PICC Line Insertion 02/14/17 00:00 IMPRESSION: SUCCESSFUL PLACEMENT OF A 5 FR DUAL LUMEN 35 CM PICC IN THE RIGHT BASILIC VEIN. Thoracic Spine MRI 02/14/17 00:00 IMPRESSION: NORMAL MRI THORACIC SPINE. Qualifiers PATEINT BEING DISCHARGED WITH ANY OF THE FOLLOWING DIAGNOSIS?: No Plan Time Spent: Less than 30 Minutes
[2017-02-15] MEDS: AMITRIPTYLINE HCL 50 MG TABLET PO SCH (22:41)
[2017-02-16] MEDS: HYDROMORPHONE HCL INJ/PF 2 MG/ML AMPULE IV PRN ×9 (01:01→22:37)
[2017-02-16] MEDS: AMITRIPTYLINE HCL 25 MG TABLET PO SCH (07:55)
[2017-02-16] MEDS: ENOXAPARIN SODIUM INJ 40 MG/0.4 ML DISP.SYRIN SUBCUT SCH (07:57)
[2017-02-16] MEDS: POTASSI CL 20 MEQ/NS 1L 1000 ML IV PRN ×2 (08:03→18:32)
--- NOTE | 2017-02-16 09:30 | PDOC PROGRESS REPORT ---
Subjective Progress Note for:: 02/16/17 Subjective:: Patient has no new complaints. Pain is controlled. She was unable to be discharged home on IV antibiotics secondary to insurance issues. She denies fevers or chills. Physical Exam Vital Signs: Temp Pulse Resp BP Pulse Ox 98.0 F 94 16 130/70 H 100 02/16/17 08:13 02/16/17 08:13 02/16/17 08:13 02/16/17 08:13 02/16/17 08:13 Intake & Output 02/15/17 02/16/17 02/17/17 06:59 06:59 06:59 Intake Total 2280 5682 Balance 2280 5682 Weight 66.8 kg 63.049 kg GENERAL: No acute distress HEENT: Conjunctiva clear, nonicteric, moist mucous membranes, no JVD, midline trachea RESPIRATORY: Clear to auscultation bilaterally, no wheezes, no rhonchi CARDIAC: Regular rate and rhythm, no murmurs/gallops/rubs ABDOMEN: Soft, nondistended, nontender, positive bowel sounds, no rebound, no guarding EXTREMETIES: No edema, cyanosis, clubbing NEUROLOGIC: Alert, oriented to person/place/time, CN's grossly intact, no focal deficits SKIN: No rash, wounds PSYCH: Normal mood, normal affect Results Laboratory Results: 02/14/17 06:07 02/14/17 08:35 02/03/17 20:40 Creatine Kinase 191 H Impressions: Venous Doppler Study 02/04/17 00:00 IMPRESSION: NO EVIDENCE DVT OR SVT IN EITHER LEG. Chest X-Ray 02/12/17 10:42 IMPRESSION: Patchy bibasilar changes. Guidance Fluoroscopy 02/14/17 00:00 IMPRESSION: SUCCESSFUL PLACEMENT OF A 5 FR DUAL LUMEN 35 CM PICC IN THE RIGHT BASILIC VEIN. Interventional Vascular Procedure 02/14/17 00:00 IMPRESSION: SUCCESSFUL PLACEMENT OF A 5 FR DUAL LUMEN 35 CM PICC IN THE RIGHT BASILIC VEIN. Lumbar Spine MRI 02/14/17 00:00 IMPRESSION: NORMAL MRI LUMBAR SPINE. PICC Line Insertion 02/14/17 00:00 IMPRESSION: SUCCESSFUL PLACEMENT OF A 5 FR DUAL LUMEN 35 CM PICC IN THE RIGHT BASILIC VEIN. Thoracic Spine MRI 02/14/17 00:00 IMPRESSION: NORMAL MRI THORACIC SPINE. Assessment & Plan - Diagnosis (1) Sepsis Is this a current diagnosis for this admission?: YesPlan: Secondary to pneumonia and bacteremia. Fevers now resolved. White blood count normal. Blood pressure stable. (2) Bacteremia Is this a current diagnosis for this admission?: YesPlan: Patient has MRSA bacteremia. Case discussed with Dr. Penn of infectious disease at [facility] on 02/14/2017. ID doctor recommends 14 days IV antibiotics. PICC line was replaced. Vancomycin was discontinued secondary to high ALTON. Patient is on IV daptomycin day #3/14. Echocardiogram showed no evidence of valvular vegetation. MRI of the spine was done secondary to back pain and was normal. (3) Left lower lobe pneumonia Is this a current diagnosis for this admission?: Yes (4) Sickle-cell disease with pain Is this a current diagnosis for this admission?: YesPlan: Continue pain control. Continue IV fluids. 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 This will have to be postponed until she has completed treatment for bacteremia. - Time Time Spent with patient: 25-34 minutes Anticipated discharge: Home
[2017-02-16] MEDS: FLUTICASONE NASAL SPRAY 50 MCG/SPRY 120 SPRAY/16 GM NAREB SCH (10:19)
[2017-02-16] MEDS: AMLODIPINE BESYLATE 5 MG TABLET PO SCH (10:21)
[2017-02-16] MEDS: FOLIC ACID 1 MG TABLET PO SCH (10:21)
[2017-02-16] MEDS: DOCUSATE SODIUM 100 MG CAPSULE PO SCH ×2 (10:25→17:18)
[2017-02-16] MEDS: NORMAL SALINE 10 ML SDV (SCHEDULED) IV SCH ×2 (10:26→21:33)
[2017-02-16] MEDS: DAPTOMYCIN 500 MG in NORMAL SALINE 50 ML IV SCH (12:19)
[2017-02-16] MEDS: ZOLPIDEM TARTRATE 5 MG TABLET PO SCH (21:33)
[2017-02-16] MEDS: AMITRIPTYLINE HCL 50 MG TABLET PO SCH (21:33)
[2017-02-17] MEDS: HYDROMORPHONE HCL INJ/PF 2 MG/ML AMPULE IV PRN ×10 (02:12→21:55)
[2017-02-17] MEDS: POTASSI CL 20 MEQ/NS 1L 1000 ML IV PRN ×3 (02:12→22:44)
[2017-02-17 06:38] LABS: HEMATOCRIT 25.8 % (36.0-47.0); HEMOGLOBIN 8.9 g/dL (12.0-15.5); HGB HCT DIFFERENCE 0.9; MEAN CORPUSCULAR HEMOGLOBIN 36.3 pg (27.0-33.4); MEAN CORPUSCULAR HGB CONC 34.4 g/dL (32.0-36.0); MEAN CORPUSCULAR VOLUME 106 fl (80-97); RED BLOOD COUNT 2.44 10^6/uL (3.72-5.28); RED CELL DISTRIBUTION WIDTH 26.7 % (11.5-14.0); WHITE BLOOD COUNT 7.1 10^3/uL (4.0-10.5)
[2017-02-17 06:42] LABS: ANION GAP 7 (5-19); CALCIUM 8.8 mg/dL (8.4-10.2); CARBON DIOXIDE 26 mmol/L (22-30); CHLORIDE 107 mmol/L (98-107); CREATININE RESULT 0.39 mg/dL (0.52-1.25); GLUCOSE 93 mg/dL (75-110); SODIUM 140.3 mmol/L (137-145)
[2017-02-17 06:48] LABS: BLOOD UREA NITROGEN < 2 mg/dL (7-20)
[2017-02-17 07:11] LABS: BAND NEUTROPHILS % (MANUAL) 5 % (3-5); BASOPHILS % (MANUAL) 0 % (0-2); EOSINOPHILS % (MANUAL) 0 % (0-6); LYMPHOCYTES % (MANUAL) 33 % (13-45); TOTAL CELLS COUNTED 100
[2017-02-17 07:15] LABS: ANISOCYTOSIS 3+; OVALOCYTES 1+; POIKILOCYTOSIS 1+; POLYCHROMASIA SLIGHT; TOXIC GRANULATION SLIGHT
[2017-02-17 07:16] LABS: TARGET CELLS 2+; TEAR DROP CELLS SLIGHT
[2017-02-17] MEDS: ENOXAPARIN SODIUM INJ 40 MG/0.4 ML DISP.SYRIN SUBCUT SCH (08:47)
[2017-02-17] MEDS: AMITRIPTYLINE HCL 25 MG TABLET PO SCH (08:47)
[2017-02-17] MEDS: NORMAL SALINE 10 ML SDV (SCHEDULED) IV SCH ×2 (10:59→22:44)
[2017-02-17] MEDS: FOLIC ACID 1 MG TABLET PO SCH (10:59)
[2017-02-17] MEDS: AMLODIPINE BESYLATE 5 MG TABLET PO SCH (10:59)
[2017-02-17] MEDS: DOCUSATE SODIUM 100 MG CAPSULE PO SCH ×2 (11:00→17:15)
[2017-02-17] MEDS: FLUTICASONE NASAL SPRAY 50 MCG/SPRY 120 SPRAY/16 GM NAREB SCH (11:03)
[2017-02-17] MEDS: DAPTOMYCIN 500 MG in NORMAL SALINE 50 ML IV SCH (11:55)
--- NOTE | 2017-02-17 18:17 | PDOC PROGRESS REPORT ---
Subjective Progress Note for:: 02/17/17 Subjective:: Patient has no new complaints. Pain is controlled. She was unable to be discharged home on IV antibiotics secondary to insurance issues. She denies fevers or chills. Physical Exam Vital Signs: Temp Pulse Resp BP Pulse Ox 98.6 F 87 18 133/81 H 100 02/17/17 16:38 02/17/17 16:38 02/17/17 16:38 02/17/17 16:38 02/17/17 16:38 Intake & Output 02/16/17 02/17/17 02/18/17 06:59 06:59 06:59 Intake Total 5682 2180 Balance 5682 2180 Weight 63.049 kg 61 kg GENERAL: No acute distress HEENT: Conjunctiva clear, nonicteric, moist mucous membranes, no JVD, midline trachea RESPIRATORY: Clear to auscultation bilaterally, no wheezes, no rhonchi CARDIAC: Regular rate and rhythm, no murmurs/gallops/rubs ABDOMEN: Soft, nondistended, nontender, positive bowel sounds, no rebound, no guarding EXTREMETIES: No edema, cyanosis, clubbing NEUROLOGIC: Alert, oriented to person/place/time, CN's grossly intact, no focal deficits SKIN: No rash, wounds PSYCH: Normal mood, normal affect Results Laboratory Results: 02/17/17 06:13 02/17/17 06:13 02/17/17 02/17/17 06:13 06:13 WBC 7.1 RBC 2.44 L Hgb 8.9 L Hct 25.8 L MCV 106 H MCH 36.3 H MCHC 34.4 RDW 26.7 H Plt Count 332 Seg Neutrophils % Not Reportable Lymphocytes % Not Reportable Monocytes % Not Reportable Eosinophils % Not Reportable Basophils % Not Reportable Absolute Neutrophils Not Reportable Absolute Lymphocytes Not Reportable Absolute Monocytes Not Reportable Absolute Eosinophils Not Reportable Absolute Basophils Not Reportable Sodium 140.3 Potassium 4.0 Chloride 107 Carbon Dioxide 26 Anion Gap 7 BUN < 2 L Creatinine 0.39 L Est GFR ( Amer) > 60 Est GFR (Non-Af Amer) > 60 Glucose 93 Calcium 8.8 02/03/17 20:40 Creatine Kinase 191 H Impressions: Venous Doppler Study 02/04/17 00:00 IMPRESSION: NO EVIDENCE DVT OR SVT IN EITHER LEG. Chest X-Ray 02/12/17 10:42 IMPRESSION: Patchy bibasilar changes. Guidance Fluoroscopy 02/14/17 00:00 IMPRESSION: SUCCESSFUL PLACEMENT OF A 5 FR DUAL LUMEN 35 CM PICC IN THE RIGHT BASILIC VEIN. Interventional Vascular Procedure 02/14/17 00:00 IMPRESSION: SUCCESSFUL PLACEMENT OF A 5 FR DUAL LUMEN 35 CM PICC IN THE RIGHT BASILIC VEIN. Lumbar Spine MRI 02/14/17 00:00 IMPRESSION: NORMAL MRI LUMBAR SPINE. PICC Line Insertion 02/14/17 00:00 IMPRESSION: SUCCESSFUL PLACEMENT OF A 5 FR DUAL LUMEN 35 CM PICC IN THE RIGHT BASILIC VEIN. Thoracic Spine MRI 02/14/17 00:00 IMPRESSION: NORMAL MRI THORACIC SPINE. Assessment & Plan - Diagnosis (1) Sepsis Is this a current diagnosis for this admission?: YesPlan: Secondary to pneumonia and bacteremia. Fevers now resolved. White blood count normal. Blood pressure stable. (2) Bacteremia Is this a current diagnosis for this admission?: YesPlan: Patient has MRSA bacteremia. Case discussed with Dr. Penn of infectious disease at [facility] on 02/14/2017. ID doctor recommends 14 days IV antibiotics. PICC line was replaced. Vancomycin was discontinued secondary to high ALTON. Patient is on IV daptomycin day #4/14. Echocardiogram showed no evidence of valvular vegetation. MRI of the spine was done secondary to back pain and was normal. (3) Left lower lobe pneumonia Is this a current diagnosis for this admission?: YesPlan: IV daptomycin. Sputum culture with MRSA. (4) Sickle-cell disease with pain Is this a current diagnosis for this admission?: YesPlan: Continue pain control. Continue IV fluids. 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 This will have to be postponed until she has completed treatment for bacteremia. - Time Time Spent with patient: 15-24 minutes Anticipated discharge: Home Within: within 24 hours
[2017-02-17] MEDS: AMITRIPTYLINE HCL 50 MG TABLET PO SCH (22:44)
[2017-02-17] MEDS: ZOLPIDEM TARTRATE 5 MG TABLET PO SCH (22:44)
[2017-02-18] MEDS: HYDROMORPHONE HCL INJ/PF 2 MG/ML AMPULE IV PRN (00:10)
[2017-02-18] MEDS: OXYCODONE HCL IR 5 MG TABLET PO PRN ×2 (05:13→10:04)
[2017-02-18] MEDS: ENOXAPARIN SODIUM INJ 40 MG/0.4 ML DISP.SYRIN SUBCUT SCH (08:16)
[2017-02-18] MEDS: AMITRIPTYLINE HCL 25 MG TABLET PO SCH (08:18)
[2017-02-18] MEDS: AMLODIPINE BESYLATE 5 MG TABLET PO SCH (10:00)
[2017-02-18] MEDS: FOLIC ACID 1 MG TABLET PO SCH (10:04)
[2017-02-18] MEDS: NORMAL SALINE 10 ML SDV (SCHEDULED) IV SCH (10:23)
[2017-02-18] MEDS: FLUTICASONE NASAL SPRAY 50 MCG/SPRY 120 SPRAY/16 GM NAREB SCH (10:23)
[2017-02-18] MEDS: DOCUSATE SODIUM 100 MG CAPSULE PO SCH (10:23)
--- NOTE | 2017-02-18 12:32 | PDOC DISCHARGE SUMMARY ---
General - Admit/Disc Date/PCP Admission Date/Primary Care Provider: 02/03/17 16:37 ROXANA ARCHULETA Discharge Date: 02/18/17 - Discharge Diagnosis (1) Sepsis Is this a current diagnosis for this admission?: Yes (2) Bacteremia Is this a current diagnosis for this admission?: Yes (3) Left lower lobe pneumonia Is this a current diagnosis for this admission?: Yes (4) Sickle-cell disease with pain Is this a current diagnosis for this admission?: Yes (5) Anemia Is this a current diagnosis for this admission?: Yes (6) Hypokalemia Is this a current diagnosis for this admission?: Yes (7) Dental caries Is this a current diagnosis for this admission?: Yes - Additional Information Resuscitation Status: Full Code Discharge Diet: Regular Discharge Activity: Activity As Tolerated, Balance Activity w/Rest Home Medications: Butalb/Acetaminophen/Caffeine [Fioricet 50-300-40 mg Capsule] 1 cap PO Q6 PRN Eszopiclone [Lunesta] 2 mg PO QHS 08/14/16 Folic Acid [Folvite 1 mg Tablet] 1 mg PO DAILY 08/14/16 Hydroxyurea [Hydrea 500 mg Capsule] 3 cap PO TUTH@1000 08/14/16 Hydroxyurea [Hydrea 500 mg Capsule] 4 cap PO MOWEFR@1000 08/14/16 Hydroxyzine Pamoate [Vistaril 50 mg Capsule] 50 mg PO Q6 PRN 08/14/16 Promethazine HCl [Phenergan 25 mg Tablet] 25 mg PO Q6 08/14/16 Hydromorphone HCl [Dilaudid 2 mg Tablet] 2 mg PO Q4HP PRN #14 tablet 11/26/16 Amitriptyline HCl 25 mg PO DAILY 02/03/17 Amitriptyline HCl 50 mg PO HSP PRN 02/03/17 Amlodipine Besylate 5 mg PO DAILY 02/03/17 Cetirizine HCl [Allergy Relief] 10 mg PO HSP PRN 02/03/17 Fluticasone Propionate [Flonase Nasal Hettick 50 Mcg/Hettick 16 gm] 16 gm NASL DAILY 02/03/17 Oxycodone HCl [Oxycodone HCl 10 MG Tablet] 10 mg PO Q4H PRN #30 tablet 02/15/17 Daptomycin [Cubicin Inj 500 mg Vial] 500 mg IV NOON 10 Days 02/18/17 Fluticasone Propionate [Flonase Nasal Hettick 50 Mcg/Hettick 16 gm] 1 spray NASL Q12 #1 inhaler 02/18/17 History of Present Illness Patient complains of: Pain History of Present Illness: PRANAV JOINER is a 26 year old female with hx of sickle cell disease and frequent ED or hospital visit for "crisis", 12 in the last 12 months, often with normal retic count who returns to the ED today with complaints of "all over pain but mostly in my legs and lower back' for the past 2 wks. Described as sharp, stabbing pain radiating "all over my body", constant with asctd nausea , worse with movement or "nothing at all", better initially with her home oxycodone up to 4-5x/d but even that isn't holding her anymore. In fact, she ran out of her oxys this morning and isn't able to get a refill until 02/05 and came to the hospital "not for that reason but I knew I couldn't do this at home anymore". she's been treating with increased fluid intake and rest but "pain kept getting worse". she reports recent exposure to family member with "upper respiratory infection" and notes cough with congestion over the past 7-10d, with greenish or white phlegm occasionally specked with blood; she had 2d of diarrhea earlier this week that confined her to the bed which is unusual since she chronically constipated from chronic narcotic use. she denies melena, hematochezia, dysuria , hematuria, bruising, rash, recent travel, swollen glands or sore throat, fevers/chills, emesis, swollen joints. eval in ED shows normal retic count, LFTs including bilirubin, CBC at baseline, normal renal function, clear urine but her pain is not well controlled and we were consulted to admit for further eval and management. Hospital Course Hospital Course: Patient was initially admitted for sickle cell disease associated pain crisis. Reticulocyte count was normal on admission. Hematology recommended that she be admitted for pain control. Patient historically has long admissions for pain control. She had PICC line placed during admission for prolonged IV access. On 02/10/2017 she developed fevers and PICC line was discontinued blood cultures were drawn. Chest x-ray also showed left lower lobe airspace disease at that time that was new from admission. Sputum cultures were obtained. Patient was started on IV Levaquin and IV vancomycin. Blood cultures grew MRSA and sputum culture grew MRSA as well with same susceptibility pattern. Vancomycin ALTON indicated organism would not be susceptible to IV vancomycin and therefore patient was transitioned to IV daptomycin. Follow-up blood cultures were negative and another PICC line was placed in order to discharge patient home with home IV infusion. Case was discussed with infectious disease at [facility]. Recommended duration of treatment 14 days. Echocardiogram showed no evidence of valvular vegetation. Patient was specifically complaining of mid back pain, however MRI of the thoracic and lumbar spine showed no evidence of abscess/discitis. Physical Exam Vital Signs: Temp Pulse Resp BP Pulse Ox 98.5 F 81 16 117/71 100 02/18/17 11:58 02/18/17 11:58 02/18/17 11:58 02/18/17 11:58 02/18/17 11:58 Intake & Output 02/17/17 02/18/17 02/19/17 06:59 06:59 06:59 Intake Total 2180 500 Balance 2180 500 Weight 61 kg GENERAL: No acute distress HEENT: Conjunctiva clear, nonicteric, moist mucous membranes, no JVD, midline trachea RESPIRATORY: Clear to auscultation bilaterally, no wheezes, no rhonchi CARDIAC: Regular rate and rhythm, no murmurs/gallops/rubs ABDOMEN: Soft, nondistended, nontender, positive bowel sounds, no rebound, no guarding EXTREMETIES: No edema, cyanosis, clubbing NEUROLOGIC: Alert, oriented to person/place/time, CN's grossly intact, no focal deficits SKIN: No rash, wounds. PICC line right arm PSYCH: Normal mood, normal affect Results Laboratory Results: 02/17/17 06:13 02/17/17 06:13 02/13/17 08:00 Blood Blood Culture - Final NO GROWTH IN 5 DAYS 02/13/17 06:44 Blood Blood Culture - Final NO GROWTH IN 5 DAYS 02/03/17 20:40 Creatine Kinase 191 H Labs- Last Values WBC 7.1 10^3/uL (4.0-10.5) 02/17/17 06:13 RBC 2.44 10^6/uL (3.72-5.28) L 02/17/17 06:13 Hgb 8.9 g/dL (12.0-15.5) L 02/17/17 06:13 Hct 25.8 % (36.0-47.0) L 02/17/17 06:13 MCV 106 fl (80-97) H 02/17/17 06:13 MCH 36.3 pg (27.0-33.4) H 02/17/17 06:13 MCHC 34.4 g/dL (32.0-36.0) 02/17/17 06:13 RDW 26.7 % (11.5-14.0) H 02/17/17 06:13 Plt Count 332 10^3/uL (150-450) 02/17/17 06:13 Total Counted 100 02/17/17 06:13 Seg Neutrophils % Not Reportable 02/17/17 06:13 Seg Neuts % (Manual) 56 % (42-78) 02/17/17 06:13 Band Neutrophils % 5 % (3-5) 02/17/17 06:13 Lymphocytes % Not Reportable 02/17/17 06:13 Lymphocytes % (Manual) 33 % (13-45) 02/17/17 06:13 Atypical Lymphs % 1 % (0) 02/17/17 06:13 Monocytes % Not Reportable 02/17/17 06:13 Monocytes % (Manual) 5 % (3-13) 02/17/17 06:13 Eosinophils % Not Reportable 02/17/17 06:13 Eosinophils % (Manual) 0 % (0-6) 02/17/17 06:13 Basophils % Not Reportable 02/17/17 06:13 Basophils % (Manual) 0 % (0-2) 02/17/17 06:13 Metamyelocytes % 1 % (0) H 02/08/17 08:45 Absolute Neutrophils Not Reportable 02/17/17 06:13 Abs Neuts (Manual) 4.3 10^3/uL (1.7-8.2) 02/17/17 06:13 Absolute Lymphocytes Not Reportable 02/17/17 06:13 Abs Lymphs (Manual) 2.4 10^3/uL (0.5-4.7) 02/17/17 06:13 Absolute Monocytes Not Reportable 02/17/17 06:13 Abs Monocytes (Manual) 0.4 10^3/uL (0.1-1.4) 02/17/17 06:13 Absolute Eosinophils Not Reportable 02/17/17 06:13 Absolute Eos (Manual) 0.0 10^3/uL (0.0-0.6) 02/17/17 06:13 Absolute Basophils Not Reportable 02/17/17 06:13 Abs Basophils (Manual) 0.0 10^3/uL (0.0-0.2) 02/17/17 06:13 Nucleated RBCs 1 /100 WBC (0) 02/14/17 06:07 Toxic Granulation SLIGHT 02/17/17 06:13 Toxic Vacuolation PRESENT 02/13/17 06:44 Dohle Bodies PRESENT 02/08/17 08:45 Clumped Platelets PRESENT 02/05/17 05:55 Platelet Comment ADEQUATE 02/17/17 06:13 Polychromasia SLIGHT 02/17/17 06:13 Hypochromasia SLIGHT 02/14/17 06:07 Poikilocytosis 1+ 02/17/17 06:13 Anisocytosis 3+ 02/17/17 06:13 Macrocytosis 2+ 02/17/17 06:13 Pappenheimer Bodies PRESENT 02/17/17 06:13 Sickle Cells SLIGHT 02/17/17 06:13 Target Cells 2+ 02/17/17 06:13 Tear Drop Cells SLIGHT 02/17/17 06:13 Ovalocytes 1+ 02/17/17 06:13 Rand-Vened[place]ia Bodies PRESENT 02/08/17 08:45 Elim Cells SLIGHT 02/14/17 06:07 Acanthocytes (Spur) SLIGHT 02/13/17 06:44 Schistocytes SLIGHT 02/11/17 11:30 Retic Count (auto) 2.33 % (0.66-2.85) 02/03/17 10:04 Absolute Retic 0.050 10^6/uL (0.028-0.122) 02/03/17 10:04 PT 14.2 SEC (11.4-15.4) 02/03/17 20:40 INR 1.03 02/03/17 20:40 APTT 29.8 SEC (23.5-35.8) 02/03/17 20:40 Sodium 140.3 mmol/L (137-145) 02/17/17 06:13 Potassium 4.0 mmol/L (3.6-5.0) 02/17/17 06:13 Chloride 107 mmol/L (98-107) 02/17/17 06:13 Carbon Dioxide 26 mmol/L (22-30) 02/17/17 06:13 Anion Gap 7 (5-19) 02/17/17 06:13 BUN < 2 mg/dL (7-20) L 02/17/17 06:13 Creatinine 0.39 mg/dL (0.52-1.25) L 02/17/17 06:13 Est GFR ( Amer) > 60 (>60) 02/17/17 06:13 Est GFR (Non-Af Amer) > 60 (>60) 02/17/17 06:13 Glucose 93 mg/dL (75-110) 02/17/17 06:13 Calcium 8.8 mg/dL (8.4-10.2) 02/17/17 06:13 Magnesium 1.3 mg/dL (1.6-2.3) L 02/14/17 08:35 Total Bilirubin 1.3 mg/dL (0.2-1.3) 02/05/17 05:55 Direct Bilirubin 0.3 mg/dL (0.0-0.4) 02/05/17 05:55 Indirect Bilirubin Not Reportable 02/05/17 05:55 Neonat Total Bilirubin Not Reportable 02/05/17 05:55 AST 34 U/L (14-36) 02/05/17 05:55 ALT 31 U/L (9-52) 02/05/17 05:55 Alkaline Phosphatase 74 U/L (38-126) 02/05/17 05:55 Lactate Dehydrogenase 771 U/L (313-618) H 02/03/17 20:40 Creatine Kinase 191 U/L (30-135) H 02/03/17 20:40 Total Protein 7.2 g/dL (6.3-8.2) 02/05/17 05:55 Albumin 4.1 g/dL (3.5-5.0) 02/05/17 05:55 Vitamin B12 252.0 pg/mL (239-931) 02/04/17 05:40 Folate > 20.00 ng/mL (>2.76) 02/04/17 05:40 Urine Color YELLOW 02/11/17 15:00 Urine Appearance CLEAR 02/11/17 15:00 Urine pH 7.0 (5.0-9.0) 02/11/17 15:00 Ur Specific Hawley 1.005 02/11/17 15:00 Urine Protein NEGATIVE mg/dL (NEGATIVE) 02/11/17 15:00 Urine Glucose (UA) NEGATIVE mg/dL (NEGATIVE) 02/11/17 15:00 Urine Ketones NEGATIVE mg/dL (NEGATIVE) 02/11/17 15:00 Urine Blood NEGATIVE (NEGATIVE) 02/11/17 15:00 Urine Nitrite NEGATIVE (NEGATIVE) 02/11/17 15:00 Urine Bilirubin NEGATIVE (NEGATIVE) 02/11/17 15:00 Urine Urobilinogen 4.0 mg/dL (<2.0) H 02/11/17 15:00 Ur Leukocyte Esterase NEGATIVE (NEGATIVE) 02/11/17 15:00 Urine WBC (Auto) 1 /HPF 02/11/17 15:00 Urine RBC (Auto) 0 /HPF 02/11/17 15:00 Urine Bacteria (Auto) TRACE /HPF 02/03/17 10:04 Squamous Epi Cells Auto 2 /HPF 02/11/17 15:00 Urine Mucus (Auto) RARE /LPF 02/11/17 15:00 Urine Ascorbic Acid NEGATIVE (NEGATIVE) 02/11/17 15:00 Urine HCG, Qual NEGATIVE (NEGATIVE) 02/11/17 15:00 Time Trough Drawn 1800 02/13/17 18:00 Vancomycin Trough 10.2 ug/mL (5.0-20.0) 02/13/17 18:00 Slides for Path Review PATHOLOGIST REVIEWED 02/04/17 05:40 Blood Type O POSITIVE 02/05/17 07:50 Antibody Screen NEGATIVE 02/05/17 07:50 Crossmatch See Detail 02/05/17 07:50 02/13/17 08:00 Blood Culture - Final Blood NO GROWTH IN 5 DAYS 02/13/17 06:44 Blood Culture - Final Blood NO GROWTH IN 5 DAYS 02/12/17 11:44 Gram Stain - Final Sputum Sputum Culture - Final Mrsa (Meth Resis Staph Aureus) Yeast, Not Juliana Albicans Normal Kassie 02/11/17 18:00 Blood Culture - Final Blood Mrsa (Meth Resis Staph Aureus) 02/11/17 16:55 Blood Culture - Final Blood Mrsa (Meth Resis Staph Aureus) Impressions: Venous Doppler Study 02/04/17 00:00 IMPRESSION: NO EVIDENCE DVT OR SVT IN EITHER LEG. Chest X-Ray 02/12/17 10:42 IMPRESSION: Patchy bibasilar changes. Guidance Fluoroscopy 02/14/17 00:00 IMPRESSION: SUCCESSFUL PLACEMENT OF A 5 FR DUAL LUMEN 35 CM PICC IN THE RIGHT BASILIC VEIN. Interventional Vascular Procedure 02/14/17 00:00 IMPRESSION: SUCCESSFUL PLACEMENT OF A 5 FR DUAL LUMEN 35 CM PICC IN THE RIGHT BASILIC VEIN. Lumbar Spine MRI 02/14/17 00:00 IMPRESSION: NORMAL MRI LUMBAR SPINE. PICC Line Insertion 02/14/17 00:00 IMPRESSION: SUCCESSFUL PLACEMENT OF A 5 FR DUAL LUMEN 35 CM PICC IN THE RIGHT BASILIC VEIN. Thoracic Spine MRI 02/14/17 00:00 IMPRESSION: NORMAL MRI THORACIC SPINE. Qualifiers PATEINT BEING DISCHARGED WITH ANY OF THE FOLLOWING DIAGNOSIS?: No Plan Time Spent: Less than 30 Minutes
[2017-02-18] MEDS: DAPTOMYCIN 500 MG in NORMAL SALINE 50 ML IV SCH (13:40)
[2017-02-18 13:44] VITALS: BP 122/74
== END 2017-02-18 14:45 | disposition home health service (06) | DRG 871 ==
LOC: ER 09:52 → EH 16:37 → UNDOADMIN 17:11 → EH 17:11 → 2N 18:51 → UNDODISIN 02-14 09:24
PROVIDERS: ADMIT Internal Medicine; ATTEND Internal Medicine
PROC: 02HV33Z Insertion of Infusion Device into Superior Vena Cava, Percutaneous Approach (ICD-10-PCS; principal; 2017-02-04)
PROC: B5181ZA Fluoroscopy of Superior Vena Cava using Low Osmolar Contrast, Guidance (ICD-10-PCS; 2017-02-04)
PROC: B548ZZA Ultrasonography of Superior Vena Cava, Guidance (ICD-10-PCS; 2017-02-04)
PROC: 02HV33Z Insertion of Infusion Device into Superior Vena Cava, Percutaneous Approach (ICD-10-PCS; 2017-02-14)
PROC: B5181ZA Fluoroscopy of Superior Vena Cava using Low Osmolar Contrast, Guidance (ICD-10-PCS; 2017-02-14)
PROC: B548ZZA Ultrasonography of Superior Vena Cava, Guidance (ICD-10-PCS; 2017-02-14)
DX: A41.02 Sepsis due to Methicillin resistant Staphylococcus aureus (principal); D57.00 Hb-SS disease with crisis, unspecified; J15.212 Pneumonia due to Methicillin resistant Staphylococcus aureus; E87.6 Hypokalemia; D64.9 Anemia, unspecified; K02.9 Dental caries, unspecified; I10 Essential (primary) hypertension; K21.9 Gastro-esophageal reflux disease without esophagitis; F32.9 Major depressive disorder, single episode, unspecified; Z90.49 Acquired absence of other specified parts of digestive tract; Z79.899 Other long term (current) drug therapy; Z91.013 Allergy to seafood; Z88.8 Allergy status to other drugs, medicaments and biological substances; Z91.011 Allergy to milk products; Z91.018 Allergy to other foods
CPT/HCPCS: 36415; 36430; 36569; 71010; 71020; 72157; 72158; 76937; 77001; 80048; 80053; 80202; 81001; 81025; 82550; 82607; 82746; 83615; 83735; 85025; 85045; 85610; 85730; 86850; 86900; 86901; 86920; 87040; 87070; 87077; 87186; 87205; 93306; 93970; 94640; 96361; 96374; 96375; 96376; 99285; A9577; C1769; J0878; J1170; J1200; J1642; J1650; J1940; J1956; J2405; J3370; J3480; J3490; J7030; J7060; J7620; P9016

== ENCOUNTER 2017-03-20 11:56 | Emergency (ER) | payer MEDICAID ==
[2017-03-20] MEDS ORDERED: HYDROMORPHONE HCL INJ/PF 2 MG/ML AMPULE IV ONE ×3 (12:05→15:33)
--- NOTE | 2017-03-20 12:07 | ER Document Report ---
ED Medical Screen (RME) - General Chief Complaint: Abdominal Pain Stated Complaint: ABDOMINAL PAIN Time Seen by Provider: 03/20/17 12:04 Mode of Arrival: Ambulatory Information source: Patient TRAVEL OUTSIDE OF THE [place] IN LAST 30 DAYS: No - HPI Patient complains to provider of: abd pain Onset: Other - pt. with SCD recently d/c'd from [facility] states her pain is not being controlled with po oxycontin and is requesting IVF and pain meds - Related Data Allergies/Adverse Reactions: ceftriaxone sodium [From Rocephin] Allergy (Verified 03/20/17 12:01) Cephalosporins Allergy (Verified 03/20/17 12:01) milk [Milk] Allergy (Verified 03/20/17 12:01) Shellfish * [Shellfish] Allergy (Verified 03/20/17 12:01) wheat [Wheat] Allergy (Verified 03/20/17 12:01) Past Medical History - Social History Frequency of alcohol use: Rare Drug Abuse: None Family history: None - Past Medical History Cardiac Medical History: Reports: Hx Hypertension, Hx Heart Murmur Denies: Hx Coronary Artery Disease, Hx Heart Attack Pulmonary Medical History: Reports: Hx Pneumonia Denies: Hx Asthma, Hx Bronchitis, Hx COPD, Hx Tuberculosis Neurological Medical History: Reports: Hx Migraine, Hx Seizures - 1 x as a child. Denies: Hx Cerebrovascular Accident Endocrine Medical History: Denies: Hx Diabetes Mellitus Type 2, Hx Hyperthyroidism, Hx Hypothyroidism Renal/ Medical History: Denies: Hx Peritoneal Dialysis GI Medical History: Reports: Hx Gastroesophageal Reflux Disease Musculoskeltal Medical History: Denies Hx Arthritis, Denies Hx Fibromyalgia Skin Medical History: Reports Hx MRSA Psychiatric Medical History: Reports: Hx Depression Past Surgical History: Reports: Hx Adenoidectomy, Hx Cholecystectomy, Hx Oral Surgery - growth removed from under tongue, Hx Tonsillectomy, Other - Port placement 2 and removal for infection, multiple PICC lines, central l. Denies : Hx Hysterectomy, Hx Kidney (Renal Surgery), Hx Pacemaker - Immunizations Hx Diphtheria, Pertussis, Tetanus Vaccination: Yes Physical Exam - Vital signs Vitals: Temp Pulse Resp BP Pulse Ox 98.5 F 103 H 18 133/63 H 96 03/20/17 12:01 03/20/17 12:01 03/20/17 12:01 03/20/17 12:01 03/20/17 12:01 Course - Vital Signs Vital signs: Temp Pulse Resp BP Pulse Ox 98.5 F 103 H 18 133/63 H 96 03/20/17 12:01 03/20/17 12:01 03/20/17 12:01 03/20/17 12:01 03/20/17 12:01
[2017-03-20 12:44] LABS: APPEARANCE,URINE SLIGHTLY-CLOUDY; BILIRUBIN,URINE NEGATIVE (NEGATIVE); GLUCOSE, URINE NEGATIVE (NEGATIVE); KETONES,URINE NEGATIVE (NEGATIVE); LEUKOCYTE ESTERASE,URINE NEGATIVE (NEGATIVE); NITRITE,URINE NEGATIVE (NEGATIVE); PROTEIN,URINE NEGATIVE (NEGATIVE); URINE SPECIFIC GRAVITY 1.009; UROBILINOGEN,URINE NEGATIVE mg/dL (<2.0)
[2017-03-20 13:27] LABS: HEMATOCRIT 25.1 % (36.0-47.0); HEMOGLOBIN 8.9 g/dL (12.0-15.5); HGB HCT DIFFERENCE 1.6; MEAN CORPUSCULAR HEMOGLOBIN 37.2 pg (27.0-33.4); MEAN CORPUSCULAR HGB CONC 35.2 g/dL (32.0-36.0); MEAN CORPUSCULAR VOLUME 106 fl (80-97); RED BLOOD COUNT 2.38 10^6/uL (3.72-5.28); RED CELL DISTRIBUTION WIDTH 26.4 % (11.5-14.0); WHITE BLOOD COUNT 5.8 10^3/uL (4.0-10.5)
[2017-03-20 13:47] LABS: BAND NEUTROPHILS % (MANUAL) 2 % (3-5); BASOPHILS % (MANUAL) 0 % (0-2); EOSINOPHILS % (MANUAL) 2 % (0-6); LYMPHOCYTES % (MANUAL) 22 % (13-45); NUCLEATED RED BLOOD CELLS 1 /100 WBC (0); TOTAL CELLS COUNTED 100
[2017-03-20 13:51] LABS: ANISOCYTOSIS 3+; HOWELL-JOLLY BODIES PRESENT; OVALOCYTES SLIGHT; POIKILOCYTOSIS 1+; POLYCHROMASIA SLIGHT; TARGET CELLS 2+; TEAR DROP CELLS SLIGHT; TOXIC VACUOLATION PRESENT
[2017-03-20 13:54] LABS: TOXIC GRANULATION SLIGHT
[2017-03-20] MEDS ORDERED: ONDANSETRON HCL INJ/PF 4 MG/2 ML SDV IV ONE ×2 (13:59→15:32)
[2017-03-20] MEDS ORDERED: NORMAL SALINE 1000 ML 1,000 ML IV ONE (14:00)
--- NOTE | 2017-03-20 14:01 | ER Document Report ---
ED General - General Chief Complaint: Abdominal Pain Stated Complaint: ABDOMINAL PAIN Time Seen by Provider: 03/20/17 12:04 Mode of Arrival: Ambulatory Notes: Patient has sickle cell disease and is here complaining of pain in her abdomen and stomach cramping since her period began yesterday. She says this is fairly common for her during the time of her cycle. She takes oxycodone 10 mg for pain relief and is not helping this time. Has not had any vomiting or diarrhea. No UTI symptoms. No fevers. Patient says she is here to try IV fluids and IV pain medications to see if she can prevent having to be admitted to the hospital for the same. PMH: Cholecystectomy. Heart murmur. TRAVEL OUTSIDE OF THE [place] IN LAST 30 DAYS: No - Related Data Allergies/Adverse Reactions: ceftriaxone sodium [From Rocephin] Allergy (Verified 03/20/17 12:01) Cephalosporins Allergy (Verified 03/20/17 12:01) milk [Milk] Allergy (Verified 03/20/17 12:01) Shellfish * [Shellfish] Allergy (Verified 03/20/17 12:01) wheat [Wheat] Allergy (Verified 03/20/17 12:01) Past Medical History - General Information source: Patient - Social History Smoking Status: Never Smoker Frequency of alcohol use: Rare Drug Abuse: None Family History: Reviewed & Not Pertinent, DM, Malignancy - Brother with Hodgkin' s lymphoma. Maternal grandfather with lung cancer., Other - sickle trait - Past Medical History Cardiac Medical History: Reports: Hx Hypertension, Hx Heart Murmur Pulmonary Medical History: Reports: Hx Pneumonia Neurological Medical History: Reports: Hx Migraine, Hx Seizures - 1 x as a child GI Medical History: Reports: Hx Gastroesophageal Reflux Disease Skin Medical History: Reports Hx MRSA Psychiatric Medical History: Reports: Hx Depression Past Surgical History: Reports: Hx Adenoidectomy, Hx Cholecystectomy, Hx Oral Surgery - growth removed from under tongue, Hx Tonsillectomy, Other - Port placement 2 and removal for infection, multiple PICC lines, central l - Immunizations Hx Diphtheria, Pertussis, Tetanus Vaccination: Yes Hx Pneumococcal Vaccination: 07/08/11 Review of Systems - Review of Systems Notes: REVIEW OF SYSTEMS: CONSTITUTIONAL : Denies fever. EENT: Denies eye, ear, nose or mouth or throat pain or other symptoms. CARDIOVASCULAR: Denies chest pain. RESPIRATORY: Denies cough, chest congestion, or shortness of breath. GASTROINTESTINAL: See HPI. GENITOURINARY: Denies difficulty or painful urinating, urinary frequency, blood in urine. MUSCULOSKELETAL: Denies back or neck pain. Denies joint pain or swelling. SKIN: Denies rash or skin lesions. NEUROLOGICAL: Denies LOC or altered mental status. Denies headache. Denies sensory loss or motor deficits. ALL OTHER SYSTEMS REVIEWED AND NEGATIVE. Physical Exam - Vital signs Vitals: Temp Pulse Resp BP Pulse Ox 98.5 F 103 H 18 133/63 H 96 03/20/17 12:01 03/20/17 12:01 03/20/17 12:01 03/20/17 12:01 03/20/17 12:01 Interpretation: Normal. No: Febrile - Notes Notes: PHYSICAL EXAMINATION: GENERAL: Well-appearing, in no acute distress. Vital signs are normal. Afebrile. HEAD: Atraumatic, normocephalic. ENT: oropharynx clear without exudates. Moist mucous membranes. NECK: Normal range of motion, supple. LUNGS: Breath sounds clear and equal bilaterally. HEART: Regular rate and rhythm without murmurs. ABDOMEN: Soft, only mild tenderness of the lower abdomen.. No guarding or rebound. BACK: No tenderness throughout entire back. EXTREMITIES: Normal range of motion without pain. NEUROLOGICAL: Normal speech, normal gait. Normal sensory, motor, and reflex exams. Awake, alert, and oriented x3. Cranial nerves normal. PSYCH: Normal mood, normal affect. SKIN: Warm, dry, no rashes. Course - Re-evaluation Re-evalutation: 03/20/17 19:22 Patient's labs were all essentially normal. I called and spoke with her lining feller, Dr. Cornelius, and patient has an appointment to see him Saturday. We agreed that I would write a prescription for a dozen Dilaudid 2 mg pills for her to take in addition to her oxycodone at home, as needed. Patient feels much better and feels she is up to try to go home to be managed further as an outpatient. - Vital Signs Vital signs: Temp Pulse Resp BP Pulse Ox 97.4 F 92 16 124/74 95 03/20/17 16:44 03/20/17 16:44 03/20/17 16:44 03/20/17 16:44 03/20/17 16:44 - Laboratory Result Diagrams: 03/20/17 13:11 03/20/17 14:00 Laboratory results interpreted by me: 03/20/17 03/20/17 03/20/17 12:15 13:11 14:00 RBC 2.38 L Hgb 8.9 L Hct 25.1 L MCV 106 H MCH 37.2 H RDW 26.4 H Band Neutrophils % 2 L Chloride 108 H BUN 4 L Creatinine 0.46 L Urine Blood LARGE H Discharge - Discharge Clinical Impression: Sickle cell pain crisis Condition: Stable Disposition: HOME, SELF-CARE Additional Instructions: Sickle Cell Crisis You have "sickle cell crisis." Sickle cell disease is caused by abnormal hemoglobin. This hemoglobin can deform red blood cells into a sickle shape. These abnormal blood cells can block blood vessels. This causes the pain of sickle cell crisis. Sickle cell crisis can occur any time. But attacks are more likely with acute infection, dehydration, or altitude change. A crisis usually causes pain in the legs, back, abdomen, and chest. Sometimes the pain may ease and return later. The usual treatment is oxygen, pain medication, IV fluids, and treatment of infection. Attacks may take a couple of days to resolve. Return if the pain becomes more severe, or if there are new symptoms. Antinausea Medication You have been given a medication to suppress nausea and vomiting. This type of medication can be given as a shot, pill, or suppository. It will usually last for many hours. Pills and shots usually last six to eight hours, suppositories last about 12 hours. For the typical illness, only one or two doses of the medication may be necessary. Mild lightheadedness may occur. This type of medicine can cause drowsiness. Do not drive or operate dangerous machinery while under its influence. Do not mix with alcohol. See your doctor at once if you have muscle spasms or tightness, or uncontrollable motions (particularly of the neck, mouth, or jaw). Persistent vomiting or severe lightheadedness should also be evaluated by the physician. Oral Narcotic Medication You have been given a prescription for pain control. This medication is a narcotic. It's best taken with food, as nausea can result if taken on an empty stomach. Don't operate machinery or drive within six hours of taking this medication. Do not combine this medicine with alcohol, or with any medication which can cause sedation (such as cold tablets or sleeping pills) unless you get permission from the physician. Narcotics tend to cause constipation. If possible, drink plenty of fluids and eat a diet high in fiber and fruits. FOLLOW-UP CARE: If you have been referred to a physician for follow-up care, call the physician s office for an appointment as you were instructed or within the next two days. If you experience worsening or a significant change in your symptoms, notify the physician immediately or return to the Emergency Department at any time for re-evaluation. Keep your appointment to see Dr. Enamorado around Saturday. Prescriptions: Hydromorphone HCl [Dilaudid 2 mg Tablet] 2 mg PO Q4HP PRN #12 tablet PRN Reason:
[2017-03-20 14:36] LABS: ALANINE AMINOTRANSFERASE 36 U/L (9-52); ALBUMIN 4.1 g/dL (3.5-5.0); ALKALINE PHOSPHATASE 82 U/L (38-126); ANION GAP 8 (5-19); ASPARTATE AMINO TRANSFERASE 26 U/L (14-36); BILIRUBIN,DIRECT 0.4 mg/dL (0.0-0.4); BILIRUBIN,TOTAL 1.1 mg/dL (0.2-1.3); BLOOD UREA NITROGEN 4 mg/dL (7-20); CALCIUM 9.3 mg/dL (8.4-10.2); CARBON DIOXIDE 25 mmol/L (22-30); CHLORIDE 108 mmol/L (98-107); CREATININE RESULT 0.46 mg/dL (0.52-1.25); GLUCOSE 86 mg/dL (75-110); LIPASE 78.4 U/L (23-300); POTASSIUM 3.7 mmol/L (3.6-5.0); SODIUM 140.7 mmol/L (137-145); TOTAL PROTEIN 7.2 g/dL (6.3-8.2)
[2017-03-20 16:45] VITALS: BP 124/74
== END 2017-03-20 16:46 | disposition home or self-care (01) ==
LOC: ER 11:56
DX: D57.00 Hb-SS disease with crisis, unspecified (principal); R10.9 Unspecified abdominal pain; Z79.899 Other long term (current) drug therapy
CPT/HCPCS: 96376; 99284; 96374; 96375; 36415; 83690; 85025; 81025; 85045; 80053; 81001; J1170; J2405; J7030

== ENCOUNTER → 2017-04-09 | Outpatient (CLI) | payer MEDICAID ==
--- NOTE | 2017-04-09 18:03 | RADIOLOGY REPORT (SQ) ---
EXAM DESCRIPTION: VENOUS UNILATERAL UPPER COMPLETED DATE/TIME: 04/09/2017 5:11 pm REASON FOR STUDY: RUE PAIN SWELLING M79.609 PAIN IN UNSPECIFIED LIMB COMPARISON: None. TECHNIQUE: Dynamic and static husain scale and color images acquired of the right arm venous system. S elected spectral images acquired with additional compression and augmentation maneuvers. The contrala teral subclavian vein and internal jugular vein were also imaged. Images stored on PACS. LIMITATIONS: None. FINDINGS: Thrombus is present in the right basilic vein in the mid to distal section, right brachial vein in the middle section, and right subclavian vein distally. There is some Doppler flow through the distal subclavian. IMPRESSION: Deep vein thrombosis in the right arm as described. COMMENT: Findings were reported at the time of the study. TECHNICAL DOCUMENTATION: JOB ID: [id number] [employer]- All Rights Reserved
== END ==
LOC: SP 15:58
PROVIDERS: ATTEND Internal Medicine
DX: I82.621 Acute embolism and thrombosis of deep veins of right upper extremity (principal); M79.601 Pain in right arm; M79.89 Other specified soft tissue disorders
CPT/HCPCS: 93971

== ENCOUNTER 2017-04-11 11:30 | Day surgery (SDC) | payer MEDICAID ==
--- NOTE | 2017-04-08 14:35 | EKG REPORT ---
SEVERITY:- BORDERLINE ECG - SINUS RHYTHM BORDERLINE T WAVE ABNORMALITIES : Confirmed by: Jessica Good MD 08-Apr-2017 14:35:26
[~2017-04-11 11:30] MED LIST: DEXAMETHASONE SOD PHOSPHATE INJ 4 MG/1 ML VIAL ONE; LACTATED RINGERS 1000 ML IV PRN; LIDOCAINE 0.5% INJ-PF (5 MG/ML) 50 ML SDV SUBCUT PRN; LIDOCAINE 2% INJ-PF (20 MG/ML) 10 ML AMPUL ONE; ONDANSETRON HCL INJ/PF 4 MG/2 ML SDV ONE; SUCCINYLCHOLINE CHLORIDE INJ 200 MG/10 ML VIAL ONE
[2017-04-11] MEDS ORDERED: CLINDAMYCIN 600 MG/D5W RTU 600 MG/50 ML RTUPB IV ONE (12:08)
[2017-04-11] MEDS ORDERED: FENTANYL CITRATE INJ/PF 100 MCG/2 ML AMPUL ONE (13:02)
[2017-04-11] MEDS ORDERED: HYDROMORPHONE HCL INJ/PF 2 MG/ML AMPULE ONE (13:02)
[2017-04-11] MEDS ORDERED: MIDAZOLAM 2 MG/2 ML INJ ONE (13:03)
[2017-04-11] MEDS ORDERED: ACETAMINOPHEN 100 ML IV ONE (13:03)
[2017-04-11] MEDS ORDERED: IBUPROFEN INJ 800 MG/8 ML VIAL IV ONE (13:03)
[2017-04-11] MEDS ORDERED: PROPOFOL INJ 200 MG/20 ML VIAL IV ONE (13:03)
[2017-04-11] MEDS ORDERED: LIDOCAINE 2%/EPINEPHRINE INJ 1.7 ML CARTRIDGE ONE (13:08)
[2017-04-11] MEDS ORDERED: BUPIVACAINE HCL 0.5%/EPI 1:200000 INJ 1.8 ML CARTRIDGE ONE (13:08)
[2017-04-11] MEDS ORDERED: PROMETHAZINE HCL INJ 25 MG/1 ML VIAL IV PRN ×2 (13:51→14:48)
[2017-04-11] MEDS ORDERED: MEPERIDINE HCL/PF INJ 25 MG/1 ML DISP.SYRIN IV PRN (13:51)
[2017-04-11] MEDS ORDERED: DIPHENHYDRAMINE HCL 50 MG/ML VIAL IV PRN (13:51)
[2017-04-11] MEDS ORDERED: FENTANYL CITRATE INJ/PF 100 MCG/2 ML AMPUL IV PRN ×3 (13:51)
[2017-04-11] MEDS ORDERED: MORPHINE SULFATE 10 MG/ML INJ IV PRN (13:51)
[2017-04-11] MEDS: FENTANYL CITRATE INJ/PF 100 MCG/2 ML AMPUL ONE ×2 (14:40→14:45)
[2017-04-11] MEDS ORDERED: AMITRIPTYLINE HCL 25 MG TABLET PO PRN (14:43)
[2017-04-11] MEDS ORDERED: (PENDING PHARMACY ID) (Butalb/Acetaminophen/Caffeine [Fioricet 50-300-40 Mg Capsule] 1 CAP PO PRN (14:43)
[2017-04-11] MEDS ORDERED: PROMETHAZINE HCL 25 MG TABLET PO PRN (14:43)
[2017-04-11] MEDS ORDERED: OXYCODONE HCL 15 MG PO PRN (14:43)
[2017-04-11] MEDS ORDERED: HYDROXYZINE PAMOATE 50 MG CAPSULE PO PRN (14:43)
[2017-04-11] MEDS ORDERED: [UNRECOGNIZED DRUG - REMARK] PO PRN (14:43)
--- NOTE | 2017-04-11 14:47 | Operative Report ---
Operative Report DATE OF SURGERY: 04/11/17 PREOPERATIVE DIAGNOSIS: Dental caries POSTOPERATIVE DIAGNOSIS: same OPERATION: Surgical removal of all remaining teeth #'s 1,4,5,8,11,13,16,20-29 and alveoloplasties of all four quadrants SURGEON: TESSY CLARK ANESTHESIA: GA TISSUE REMOVED OR ALTERED: teeth which were discarded COMPLICATIONS: none ESTIMATED BLOOD LOSS: 10cc INTRAOPERATIVE FINDINGS: grossly decayed and nonrestorable teeth PROCEDURE: The patient was brought into operating room #4 and placed on the operating room table in a supine position. She was prepped and draped in the usual fashion for an intraoral procedure. A total of five carpules of 2% lidocaine with 1:100K epi and four carpules of 0.5% marcaine with 1:200K were delivered to the planned surgical sites via infiltration and nerve block. The oral cavity and oropharynx were suctioned and a moistened oropharyngeal throat pack was placed. Full thickness mucoperiosteal flaps were elevated via envelope incisions. Ostectomy was completed as needed. Teeth were delivered with elevators and forceps. Alveoloplasties were completed with ronguers and bone files. Sockets were curretted free of debris and irrigated with NS solution. Flaps were reapproximated and sutured with 4/0 chromic gut suture. There was no sinus communication noted. The nerves were not seen. The mandible was intact postoperatively. A bite block was used throughout the procedure. The oral cavity was suctioned and the throat pack removed. The oropharynx was suctioned. Gauze packs were placed bilaterally to aid in continued hemastasis. The patient was awakened from general anesthesia, extubated in the main OR and taken to recovery in spontaneous breathing fashion.
[2017-04-11] MEDS ORDERED: BUTALB/ACETAMINOPHEN/CAFFEINE 1 TAB EACH PO PRN (14:48)
[2017-04-11] MEDS ORDERED: CETIRIZINE 10 MG TABLET PO PRN (14:49)
[2017-04-11] MEDS ORDERED: OXYCODONE HCL IR 5 MG TABLET PO PRN (14:50)
[2017-04-11 17:36] VITALS: BP 112/75
[2017-04-11] MEDS ORDERED: (PENDING PHARMACY ID) (Eszopiclone [Lunesta] 2 MG) PO SCH (22:00)
[2017-04-11] MEDS ORDERED: FLUTICASONE NASAL SPRAY 50 MCG/SPRY 120 SPRAY/16 GM NASL SCH (22:00)
[2017-04-12] MEDS ORDERED: AMITRIPTYLINE HCL 25 MG TABLET PO SCH (10:00)
[2017-04-12] MEDS ORDERED: HYDROXYUREA 500 MG CAPSULE PO SCH (10:00)
[2017-04-12] MEDS ORDERED: AMLODIPINE BESYLATE 5 MG TABLET PO SCH (10:00)
[2017-04-12] MEDS ORDERED: FOLIC ACID 1 MG TABLET PO SCH (10:00)
[2017-04-16] MEDS ORDERED: HYDROXYUREA 500 MG CAPSULE PO SCH (10:00)
== END 2017-04-11 16:45 | disposition home or self-care (01) ==
LOC: OROUT 11:30
PROVIDERS: ATTEND Dentist Oral and Maxillofacial Surgery
PROC: 0CDWXZ1 Extraction of Upper Tooth, Multiple, External Approach (ICD-10-PCS; 2017-04-11)
PROC: 0NQVXZZ Repair Left Mandible, External Approach (ICD-10-PCS; 2017-04-11)
PROC: 0NQTXZZ Repair Right Mandible, External Approach (ICD-10-PCS; 2017-04-11)
PROC: 0NQRXZZ Repair Maxilla, External Approach (ICD-10-PCS; 2017-04-11)
PROC: 0CDXXZ1 Extraction of Lower Tooth, Multiple, External Approach (ICD-10-PCS; principal; 2017-04-11 13:30)
DX: K02.9 Dental caries, unspecified (principal); D57.1 Sickle-cell disease without crisis; J45.909 Unspecified asthma, uncomplicated; I10 Essential (primary) hypertension; R01.1 Cardiac murmur, unspecified; Z79.899 Other long term (current) drug therapy; Z88.0 Allergy status to penicillin; Z88.1 Allergy status to other antibiotic agents
CPT/HCPCS: 41899; 41874 ×4; 81025; 93005; 93010; J2250; S0077; J3490 ×3; J1100; J3010; J1170; J0330; J2405; J2704; J0131; 170; J1741

== ENCOUNTER 2017-04-12 07:28 | Emergency (ER) | payer MEDICAID ==
[2017-04-12] MEDS ORDERED: NORMAL SALINE 1000 ML 1,000 ML IV ONE (10:14)
[2017-04-12] MEDS ORDERED: HYDROMORPHONE HCL INJ/PF 2 MG/ML AMPULE IV ONE ×2 (10:14→11:34)
[2017-04-12 10:34] LABS: HEMOGLOBIN 8.2 g/dL (12.0-15.5); HGB HCT DIFFERENCE 1.6; MEAN CORPUSCULAR HEMOGLOBIN 40.3 pg (27.0-33.4); MEAN CORPUSCULAR HGB CONC 35.4 g/dL (32.0-36.0); RED BLOOD COUNT 2.02 10^6/uL (3.72-5.28); RED CELL DISTRIBUTION WIDTH 29.6 % (11.5-14.0); WHITE BLOOD COUNT 5.6 10^3/uL (4.0-10.5)
--- NOTE | 2017-04-12 10:42 | RADIOLOGY REPORT (SQ) ---
EXAM DESCRIPTION: CHEST SINGLE VIEW COMPLETED DATE/TIME: 04/12/2017 10:33 am REASON FOR STUDY: body aches, h/o sickle cell COMPARISON: 02/11/2017 EXAM PARAMETERS: NUMBER OF VIEWS: One view. TECHNIQUE: Single frontal radiographic view of the chest acquired. RADIATION DOSE: NA LIMITATIONS: None. FINDINGS: LUNGS AND PLEURA: No opacities, masses or pneumothorax. No pleural effusion. MEDIASTINUM AND HILAR STRUCTURES: No masses. Contour normal. HEART AND VASCULAR STRUCTURES: Heart normal in size. Normal vasculature. BONES: No acute findings. HARDWARE: None in the chest. OTHER: No other significant finding. IMPRESSION: NO ACUTE RADIOGRAPHIC FINDING IN THE CHEST. TECHNICAL DOCUMENTATION: JOB ID: [id number]
[2017-04-12 10:51] LABS: APPEARANCE,URINE CLOUDY; BILIRUBIN,URINE NEGATIVE (NEGATIVE); GLUCOSE, URINE NEGATIVE (NEGATIVE); KETONES,URINE NEGATIVE (NEGATIVE); LEUKOCYTE ESTERASE,URINE NEGATIVE (NEGATIVE); NITRITE,URINE NEGATIVE (NEGATIVE); PROTEIN,URINE NEGATIVE (NEGATIVE); URINE SPECIFIC GRAVITY 1.006; UROBILINOGEN,URINE NEGATIVE mg/dL (<2.0)
[2017-04-12 10:56] LABS: ALANINE AMINOTRANSFERASE 24 U/L (9-52); ALBUMIN 4.4 g/dL (3.5-5.0); ALKALINE PHOSPHATASE 100 U/L (38-126); ANION GAP 12 (5-19); ASPARTATE AMINO TRANSFERASE 37 U/L (14-36); BILIRUBIN,DIRECT 0.4 mg/dL (0.0-0.4); BLOOD UREA NITROGEN 4 mg/dL (7-20); CALCIUM 9.3 mg/dL (8.4-10.2); CARBON DIOXIDE 22 mmol/L (22-30); CHLORIDE 109 mmol/L (98-107); CREATININE RESULT 0.49 mg/dL (0.52-1.25); GLUCOSE 96 mg/dL (75-110); POTASSIUM 3.8 mmol/L (3.6-5.0); TOTAL PROTEIN 7.9 g/dL (6.3-8.2)
[2017-04-12 10:58] LABS: BASOPHILS % (MANUAL) 0 % (0-2); EOSINOPHILS % (MANUAL) 0 % (0-6); LYMPHOCYTES % (MANUAL) 41 % (13-45); NUCLEATED RED BLOOD CELLS 12 /100 WBC (0); TOTAL CELLS COUNTED 100
[2017-04-12 11:14] LABS: ANISOCYTOSIS 4+; POLYCHROMASIA SLIGHT
[2017-04-12 11:16] LABS: HYPOCHROMASIA SLIGHT; OVALOCYTES SLIGHT; POIKILOCYTOSIS 1+
[2017-04-12 11:17] LABS: HOWELL-JOLLY BODIES PRESENT; TARGET CELLS 3+; TEAR DROP CELLS SLIGHT
[2017-04-12 11:23] LABS: MEAN CORPUSCULAR VOLUME 114 fl (80-97)
--- NOTE | 2017-04-12 11:33 | ER Document Report ---
ED General - General Chief Complaint: Pain All Over Stated Complaint: BODY ACHES Time Seen by Provider: 04/12/17 09:38 Notes: Patient is a 26-year-old female presented to emergency department complaining of body aches and need for change in her DVT medication. Patient states that she had a dental extraction yesterday of all of her teeth and was discharged home. She states that she got home and had onset of body aches. She states that she took pain medication last night but none this morning. She presents emergency department because she states she was referred over by Dr. Menjivar's office to be initiated on Lovenox. Patient states she has been taking her Xarelto which is prescribed for right upper extremity DVT., Otherwise she denies any back pain, chest pain. TRAVEL OUTSIDE OF THE [place] IN LAST 30 DAYS: No - Related Data Allergies/Adverse Reactions: ceftriaxone sodium [From Rocephin] Allergy (Verified 04/11/17 12:07) Cephalosporins Allergy (Verified 04/11/17 12:07) milk [Milk] Allergy (Verified 04/11/17 12:07) Shellfish * [Shellfish] Allergy (Verified 04/11/17 12:07) wheat [Wheat] Allergy (Verified 04/11/17 12:07) Past Medical History - Social History Smoking Status: Never Smoker Chew tobacco use (# tins/day): No Frequency of alcohol use: Occasional Drug Abuse: None Family History: Reviewed & Not Pertinent, DM, Malignancy - Brother with Hodgkin' s lymphoma. Maternal grandfather with lung cancer., Other - sickle trait - Past Medical History Cardiac Medical History: Reports: Hx Hypertension, Hx Heart Murmur Denies: Hx Coronary Artery Disease, Hx Heart Attack Pulmonary Medical History: Reports: Hx Asthma, Hx Pneumonia Denies: Hx Bronchitis, Hx COPD, Hx Tuberculosis Neurological Medical History: Reports: Hx Migraine, Hx Seizures - A CHILD. Denies: Hx Cerebrovascular Accident Endocrine Medical History: Denies: Hx Diabetes Mellitus Type 2, Hx Hyperthyroidism, Hx Hypothyroidism Renal/ Medical History: Denies: Hx Peritoneal Dialysis GI Medical History: Reports: Hx Gastroesophageal Reflux Disease Musculoskeltal Medical History: Denies Hx Arthritis, Denies Hx Fibromyalgia Skin Medical History: Reports Hx MRSA Psychiatric Medical History: Reports: Hx Depression Past Surgical History: Reports: Hx Adenoidectomy, Hx Cholecystectomy, Hx Oral Surgery - growth removed from under tongue, Hx Tonsillectomy, Other - Port placement 2 and removal for infection, multiple PICC lines, central l. Denies : Hx Hysterectomy, Hx Kidney (Renal Surgery), Hx Pacemaker - Immunizations Hx Diphtheria, Pertussis, Tetanus Vaccination: Yes Hx Pneumococcal Vaccination: 07/08/11 Review of Systems - Review of Systems Constitutional: No symptoms reported Cardiovascular: No symptoms reported Respiratory: No symptoms reported Gastrointestinal: No symptoms reported Skin: See HPI Hematologic/Lymphatic: See HPI -: Yes All other systems reviewed and negative Physical Exam - Vital signs Vitals: Temp Pulse Resp BP Pulse Ox 99.0 F 104 H 14 121/62 100 04/12/17 07:32 04/12/17 07:32 04/12/17 07:32 04/12/17 07:32 04/12/17 07:32 - Notes Notes: PHYSICAL EXAM GENERAL: Alert, interacts well. HEAD: Normocephalic, atraumatic. EYES: Pupils equal, round, and reactive to light. Extraocular movements intact. ENT: Oral mucosa moist, tongue midline. NECK: Full range of motion. Supple. Trachea midline. LUNGS: Clear to auscultation bilaterally, no wheezes, rales, or rhonchi. No respiratory distress. HEART: Regular rate and rhythm. No murmurs, gallops, or rubs. ABDOMEN: Soft, nondistended, nontender. No guarding, rebound, or rigidity.. Bowel sounds present in all 4 quadrants. EXTREMITIES: Moves all 4 extremities spontaneously. No edema, radial and dorsalis pedis pulses 2/4 bilaterally. No cyanosis. NEUROLOGICAL: Alert and oriented x4. Normal speech. PSYCH: Normal affect, normal mood. SKIN: Warm, dry, normal turgor. No rashes or lesions noted. Course - Re-evaluation Re-evalutation: 04/12/17 11:45 Patient is a 26-year-old female who is hemodynamically stable, no acute distress and afebrile. Does not appear to be in sickle cell crisis with a normal tick is accounting clear chest x-ray. Patient states that her symptoms are much better after saline bolus and dose of Dilaudid. Discussion with Dr. Menjivar office recommends discharge her in follow-up with him in the clinic this afternoon so they can adjust her Lovenox and possibly her pain medications. Patient agrees with plan. Stable for discharge - Vital Signs Vital signs: Temp Pulse Resp BP Pulse Ox 99.0 F 104 H 22 H 122/76 99 04/12/17 07:32 04/12/17 07:32 04/12/17 12:01 04/12/17 12:00 04/12/17 12:01 - Laboratory Result Diagrams: 04/12/17 10:19 04/12/17 10:19 Laboratory results interpreted by me: 04/12/17 04/12/17 10:19 10:19 RBC 2.02 L Hgb 8.2 L Hct 23.0 L MCV 114 H D MCH 40.3 H RDW 29.6 H Monocytes % (Manual) 2 L Chloride 109 H BUN 4 L Creatinine 0.49 L AST 37 H - Diagnostic Test Radiology reviewed: Image reviewed, Reports reviewed Discharge - Discharge Clinical Impression: Sickle-cell disease with pain, Deep venous thrombosis of right upper limb Condition: Good Disposition: HOME, SELF-CARE Additional Instructions: You do not appear to be in sickle cell crisis at this time. Please follow-up with Dr. Elias esteban's office after your discharge to be placed on Lovenox for your DVT (blood clot). Referrals: ROXANA ARCHULETA MD [Primary Care Provider] - Follow up as needed BRUNA MENJIVAR MD [ACTIVE STAFF] - 04/12/17 (after you are discharged for medication adjustments)
[2017-04-12 12:25] VITALS: BP 122/76
[2017-04-15 14:12] LABS: PATH REVIEW PATHOLOGIST REVIEWED
== END 2017-04-12 12:33 | disposition home or self-care (01) ==
LOC: ER 07:28
DX: D57.1 Sickle-cell disease without crisis (principal); I82.621 Acute embolism and thrombosis of deep veins of right upper extremity; M79.1 Myalgia; R52 Pain, unspecified; Z79.01 Long term (current) use of anticoagulants
CPT/HCPCS: 96376; 99284; 96374; 36415; 85025; 81025; 85045; 80053; 81001; 71010; J1170; J7030

== ENCOUNTER 2017-04-16 12:06 | Inpatient (IN) | payer MEDICAID ==
[2017-04-16] MEDS ORDERED: NORMAL SALINE 1000 ML 1,000 ML IV ONE (13:47)
--- NOTE | 2017-04-16 13:50 | ER Document Report ---
ED Medical Screen (RME) - General Chief Complaint: Sickle Cell Crisis Stated Complaint: BODY PAIN Time Seen by Provider: 04/16/17 13:46 Notes: Patient was sent here from Dr. Enamorado's office. She states her hemoglobin was 6.5 in his office today. She also states that she has a DVT in her right arm that is currently being managed with Xarelto. She states she has been taking 15 mg of oxycodone a day and is not helping her pain. She states she is in sickle cell crisis. She states Dr. Enamorado felt she needed to come over to the hospital for further evaluation. I spoke with Dr. Enamorado and he says he recommends that the patient be admitted if necessary for pain control and possible transfusion. TRAVEL OUTSIDE OF THE [place] IN LAST 30 DAYS: No - Related Data Allergies/Adverse Reactions: ceftriaxone sodium [From Rocephin] Allergy (Verified 04/16/17 13:37) Cephalosporins Allergy (Verified 04/16/17 13:37) milk [Milk] Allergy (Verified 04/16/17 13:37) Shellfish * [Shellfish] Allergy (Verified 04/16/17 13:37) wheat [Wheat] Allergy (Verified 04/16/17 13:37) Past Medical History - Social History Frequency of alcohol use: Occasional Drug Abuse: None Family history: None - Past Medical History Cardiac Medical History: Reports: Hx Hypertension, Hx Heart Murmur Denies: Hx Coronary Artery Disease, Hx Heart Attack Pulmonary Medical History: Reports: Hx Asthma, Hx Pneumonia Denies: Hx Bronchitis, Hx COPD, Hx Tuberculosis Neurological Medical History: Reports: Hx Migraine, Hx Seizures - A CHILD. Denies: Hx Cerebrovascular Accident Endocrine Medical History: Denies: Hx Diabetes Mellitus Type 2, Hx Hyperthyroidism, Hx Hypothyroidism Renal/ Medical History: Denies: Hx Peritoneal Dialysis GI Medical History: Reports: Hx Gastroesophageal Reflux Disease Musculoskeltal Medical History: Denies Hx Arthritis, Denies Hx Fibromyalgia Skin Medical History: Reports Hx MRSA Psychiatric Medical History: Reports: Hx Depression Past Surgical History: Reports: Hx Adenoidectomy, Hx Cholecystectomy, Hx Oral Surgery - growth removed from under tongue, Hx Tonsillectomy, Other - Port placement 2 and removal for infection, multiple PICC lines, central l. Denies : Hx Hysterectomy, Hx Kidney (Renal Surgery), Hx Pacemaker - Immunizations Hx Diphtheria, Pertussis, Tetanus Vaccination: Yes History of Influenza Vaccine for 04/2017 - 09/2017 Season: Yes Influenza Administration Date for 04/2017 - 09/2017 Season: 03/22/17 Physical Exam - Vital signs Vitals: Temp Pulse Resp BP Pulse Ox 98.5 F 81 16 125/67 100 04/16/17 13:09 04/16/17 13:09 04/16/17 13:09 04/16/17 13:09 04/16/17 13:09 Course - Vital Signs Vital signs: Temp Pulse Resp BP Pulse Ox 98.5 F 81 16 125/67 100 04/16/17 13:09 04/16/17 13:09 04/16/17 13:09 04/16/17 13:09 04/16/17 13:09
[2017-04-16 14:36] LABS: APPEARANCE,URINE SLIGHTLY-CLOUDY; BILIRUBIN,URINE NEGATIVE (NEGATIVE); GLUCOSE, URINE NEGATIVE (NEGATIVE); KETONES,URINE NEGATIVE (NEGATIVE); LEUKOCYTE ESTERASE,URINE NEGATIVE (NEGATIVE); NITRITE,URINE NEGATIVE (NEGATIVE); PROTEIN,URINE NEGATIVE (NEGATIVE); URINE SPECIFIC GRAVITY 1.005
--- NOTE | 2017-04-16 15:20 | ER Document Report ---
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 Cornelius, after her Hgb was 6.5 earlier today. She is also taking Xarelto for her right upper extremity DVT and says that she is having worsening pain in her arm and low back, which is similar to her prior sickle cell crises. Patient denies chest pain, shortness of breath, GI bleeding , hemoptysis, fevers, cough, abdominal pain, nausea or vomiting. TRAVEL OUTSIDE OF THE [place] IN LAST 30 DAYS: No - Related Data Allergies/Adverse Reactions: ceftriaxone sodium [From Rocephin] Allergy (Verified 04/16/17 13:37) Cephalosporins Allergy (Verified 04/16/17 13:37) milk [Milk] Allergy (Verified 04/16/17 13:37) Shellfish * [Shellfish] Allergy (Verified 04/16/17 13:37) wheat [Wheat] Allergy (Verified 04/16/17 13:37) Past Medical History - General Information source: Patient, Office - Social History Smoking Status: Never Smoker Frequency of alcohol use: Occasional Drug Abuse: None Family History: Reviewed & Not Pertinent, DM, Malignancy - Brother with Hodgkin' s lymphoma. Maternal grandfather with lung cancer., Other - sickle trait - Past Medical History Cardiac Medical History: Reports: Hx Hypertension, Hx Heart Murmur Denies: Hx Coronary Artery Disease, Hx Heart Attack Pulmonary Medical History: Reports: Hx Asthma, Hx Pneumonia Denies: Hx Bronchitis, Hx COPD, Hx Tuberculosis Neurological Medical History: Reports: Hx Migraine, Hx Seizures - A CHILD. Denies: Hx Cerebrovascular Accident Endocrine Medical History: Denies: Hx Diabetes Mellitus Type 2, Hx Hyperthyroidism, Hx Hypothyroidism Renal/ Medical History: Denies: Hx Peritoneal Dialysis GI Medical History: Reports: Hx Gastroesophageal Reflux Disease Musculoskeltal Medical History: Denies Hx Arthritis, Denies Hx Fibromyalgia Skin Medical History: Reports Hx MRSA Psychiatric Medical History: Reports: Hx Depression Past Surgical History: Reports: Hx Adenoidectomy, Hx Cholecystectomy, Hx Oral Surgery - growth removed from under tongue, Hx Tonsillectomy, Other - Port placement 2 and removal for infection, multiple PICC lines, central l. Denies : Hx Hysterectomy, Hx Kidney (Renal Surgery), Hx Pacemaker - Immunizations Hx Diphtheria, Pertussis, Tetanus Vaccination: Yes Hx Pneumococcal Vaccination: 07/08/11 Review of Systems - Review of Systems Notes: REVIEW OF SYSTEMS: CONSTITUTIONAL: -fevers, -chills EENT: -eye pain, -difficulty swallowing, -nasal congestion CARDIOVASCULAR:-chest pain, -syncope. RESPIRATORY: -cough, -SOB GASTROINTESTINAL: -abdominal pain, -nausea, -vomiting, -diarrhea GENITOURINARY: -dysuria, -hematuria MUSCULOSKELETAL: +right arm pain, +back pain, -neck pain SKIN: -rash or skin lesions. HEMATOLOGIC: -easy bruising or bleeding. LYMPHATIC: -swollen, enlarged glands. NEUROLOGICAL: -altered mental status or loss of consciousness, -headache, - neurologic symptoms PSYCHIATRIC: -anxiety, -depression. ALL OTHER SYSTEMS REVIEWED AND NEGATIVE. Physical Exam - Vital signs Vitals: Temp Pulse Resp BP Pulse Ox 98.5 F 81 16 125/67 100 04/16/17 13:09 04/16/17 13:09 04/16/17 13:09 04/16/17 13:04/16/17 13:09 - Notes Notes: PHYSICAL EXAMINATION: GENERAL: Well-appearing, well-nourished and in no acute distress. HEAD: Atraumatic, normocephalic. EYES: Pupils equal round and reactive to light, extraocular movements intact, sclera anicteric, conjunctiva are normal. ENT: nares patent, oropharynx clear without exudates. Moist mucous membranes. NECK: Normal range of motion, supple without lymphadenopathy LUNGS: Breath sounds clear to auscultation bilaterally and equal. No wheezes rales or rhonchi. HEART: Regular rate and rhythm without murmurs ABDOMEN: Soft, nontender, normoactive bowel sounds. No guarding, no rebound. No masses appreciated. EXTREMITIES: Normal range of motion, no pitting or edema. No cyanosis. NEUROLOGICAL: Cranial nerves grossly intact. Normal speech, normal gait. Normal sensory and motor exams. PSYCH: Normal mood, normal affect. SKIN: Warm, Dry, normal turgor, no rashes or lesions noted. Course - Re-evaluation Re-evalutation: Patient's hemoglobin this morning was 6.[address] Cornelius's office. Repeat Hgb in the ER was 7.0. After 2 doses of IV narcotics, patient is still having her sickle cell pain crises in her back. No evidence of acute chest syndrome at this time. Will provide 1 unit PRBCs and admit for anemia and sickle cell pain crises management. Spoke to Dr. Jones at 1620 and will admit as inpatient to telemetry. - Vital Signs Vital signs: Temp Pulse Resp BP Pulse Ox 98.5 F 81 16 125/67 100 04/16/17 13:09 04/16/17 13:09 04/16/17 13:09 04/16/17 13:09 04/16/17 13:09 - Laboratory Result Diagrams: 04/16/17 15:12 04/16/17 15:12 Laboratory results interpreted by me: 04/16/17 04/16/17 04/16/17 14:14 15:12 15:12 Absolute Retic 0.016 L Potassium 3.5 L BUN 2 L Creatinine 0.43 L Urine Blood SMALL H Urine Urobilinogen 2.0 H Discharge - Discharge Clinical Impression: Sickle cell pain crisis Anemia Qualifiers: Anemia type: other cause Other causes of anemia: other cause, not classified Qualified Code(s): D64.89 - Other specified anemias Condition: Stable Disposition: ADMITTED INPATIENT Admitting Provider: Robert Unit Admitted: Telemetry
[2017-04-16] MEDS ORDERED: HYDROMORPHONE HCL INJ/PF 2 MG/ML AMPULE IV ONE ×3 (15:25→18:34)
[2017-04-16 15:33] LABS: HEMATOCRIT 19.7 % (36.0-47.0); HGB HCT DIFFERENCE 1.3; MEAN CORPUSCULAR HGB CONC 35.3 g/dL (32.0-36.0); MEAN CORPUSCULAR VOLUME 114 fl (80-97); RED BLOOD COUNT 1.74 10^6/uL (3.72-5.28); RED CELL DISTRIBUTION WIDTH 28.4 % (11.5-14.0); WHITE BLOOD COUNT 3.5 10^3/uL (4.0-10.5)
[2017-04-16 15:39] LABS: ALANINE AMINOTRANSFERASE 37 U/L (9-52); ALKALINE PHOSPHATASE 80 U/L (38-126); ANION GAP 11 (5-19); ASPARTATE AMINO TRANSFERASE 33 U/L (14-36); BILIRUBIN,DIRECT 0.3 mg/dL (0.0-0.4); BILIRUBIN,TOTAL 0.6 mg/dL (0.2-1.3); BLOOD UREA NITROGEN 2 mg/dL (7-20); CALCIUM 8.8 mg/dL (8.4-10.2); CARBON DIOXIDE 24 mmol/L (22-30); CHLORIDE 107 mmol/L (98-107); CREATININE RESULT 0.43 mg/dL (0.52-1.25); GLUCOSE 85 mg/dL (75-110); POTASSIUM 3.5 mmol/L (3.6-5.0); SODIUM 141.5 mmol/L (137-145)
[2017-04-16] MEDS ORDERED: NORMAL SALINE 250 ML IV PRN ×3 (16:16→21:37)
[2017-04-16 16:17] LABS: BASOPHILS % (MANUAL) 0 % (0-2); EOSINOPHILS % (MANUAL) 0 % (0-6); LYMPHOCYTES % (MANUAL) 63 % (13-45); NUCLEATED RED BLOOD CELLS 21 /100 WBC (0); TOTAL CELLS COUNTED 100
[2017-04-16 16:22] LABS: ANISOCYTOSIS 4+; OVALOCYTES SLIGHT; POIKILOCYTOSIS 1+; POLYCHROMASIA SLIGHT; SPHEROCYTES SLIGHT; TARGET CELLS 3+; TEAR DROP CELLS SLIGHT
--- NOTE | 2017-04-16 17:20 | RADIOLOGY REPORT (SQ) ---
EXAM DESCRIPTION: CHEST PA/LAT COMPLETED DATE/TIME: 04/16/2017 5:11 pm REASON FOR STUDY: cough, sickle cell COMPARISON: Chest film 04/12/2017 EXAM PARAMETERS: NUMBER OF VIEWS: two views TECHNIQUE: Digital Frontal and Lateral radiographic views of the chest acquired. RADIATION DOSE: NA LIMITATIONS: none FINDINGS: LUNGS AND PLEURA: No opacities, masses or pneumothorax. No pleural effusion. MEDIASTINUM AND HILAR STRUCTURES: No masses or contour abnormalities. HEART AND VASCULAR STRUCTURES: Heart normal size. No evidence for failure. BONES: No acute findings. HARDWARE: None in the chest. OTHER: No other significant finding. IMPRESSION: NO SIGNIFICANT RADIOGRAPHIC FINDING IN THE CHEST. TECHNICAL DOCUMENTATION: JOB ID: [id number] [employer] All Rights Reserved
[2017-04-16] MEDS ORDERED: DIPHENHYDRAMINE HCL 25 MG CAPSULE ONE (19:51)
[2017-04-16] MEDS ORDERED: ONDANSETRON HCL INJ/PF 4 MG/2 ML SDV IV PRN (21:41)
--- NOTE | 2017-04-16 22:05 | PDOC H&P ---
History of Present Illness Admission Date/PCP: 04/16/17 16:56 ROXANA ARCHULETA Patient complains of: Multiple joints pain History of Present Illness: PRANAV JOINER is a 26 year old female known to my practice who was directed to the ED by her micro computer specialist, Dr Cornelius, following recent hemoglobin during office visit found to be 6.5gm/dL. Also, patient was complaining about generalized body aches and pain that is not responding to her home pain medication oral management. Patient reported worsen ongoing multiple joints aches and pain. No fever or chills. She recently had dental procedure done and diagnosed with right arm DVT. She is currently on Xarelto for DVT management. She denied any associated chest pain, shortness of breath, fever chills, nausea , vomiting or abdominal pain. She denied any symptoms to suggest ongoing infection. Morbidities include hypertension, GERD, Asthma, Migraine Headache, and Depression. Past Medical History Cardiac Medical History: Reports: Hypertension, Heart Murmur Denies: Coronary Artery Disease, Myocardial Infarction Pulmonary Medical History: Reports: Asthma, Pneumonia Denies: Bronchitis, Chronic Obstructive Pulmonary Disease (COPD), Tuberculosis Neurological Medical History: Reports: Migraine, Seizures - A CHILD Endocrine Medical History: Denies: Diabetes Mellitus Type 2, Hyperthyroidism, Hypothyroidism GI Medical History: Reports: Gastroesophageal Reflux Disease Musculoskeltal Medical History: Denies: Arthritis, Fibromyalgia Psychiatric Medical History: Reports: Depression Hematology: Reports: Anemia, Sickle Cell Disease Past Surgical History Past Surgical History: Reports: Adenoidectomy, Cholecystectomy, Tonsillectomy, Other - Port placement 2 and removal for infection, multiple PICC lines, central l Denies: Hysterectomy, Pacemaker Social History Smoking Status: Never Smoker Frequency of Alcohol Use: None Hx Recreational Drug Use: No Drugs: None Hx Prescription Drug Abuse: No - Advance Directive Resuscitation Status: Full Code Family History Family History: Reviewed & Not Pertinent, DM, Malignancy - Brother with Hodgkin' s lymphoma. Maternal grandfather with lung cancer., Other - sickle trait Parental Family History Reviewed: Yes Children Family History Reviewed: Yes Sibling(s) Family History Reviewed.: Yes Medication/Allergy Home Medications: Amitriptyline HCl [Elavil 25 mg Tablet] 25 mg PO DAILY 04/16/17 Amitriptyline HCl [Elavil 25 mg Tablet] 50 mg PO QPM 10/10/17 Amlodipine Besylate [Norvasc 5 mg Tablet] 5 mg PO DAILY 04/16/17 Cetirizine HCl [Zyrtec 10 mg Tablet] 10 mg PO QHS 04/16/17 Cyclobenzaprine HCl [Flexeril 5 mg Tablet] 5 mg PO Q12HP PRN 04/16/17 Folic Acid [Folvite 1 mg Tablet] 1 mg PO DAILY 04/16/17 Hydroxyurea [Hydrea 500 mg Capsule] 1,500 mg PO SUTUTHSA@1000 04/16/17 Hydroxyurea [Hydrea 500 mg Capsule] 2,000 mg PO MOWEFR@1000 04/16/17 Oxycodone HCl 15 mg PO Q4HP PRN 04/16/17 Promethazine HCl [Phenergan 25 mg Tablet] 25 mg PO Q6HP PRN 04/16/17 Allergies/Adverse Reactions: ceftriaxone sodium [From Rocephin] Allergy (Verified 04/16/17 13:37) Cephalosporins Allergy (Verified 04/16/17 13:37) milk [Milk] Allergy (Verified 04/16/17 13:37) Shellfish * [Shellfish] Allergy (Verified 04/16/17 13:37) wheat [Wheat] Allergy (Verified 04/16/17 13:37) Review of Systems Constitutional: ABSENT: chills, fever(s), headache(s), weight gain, weight loss Eyes: PRESENT: visual disturbances - CAWG Ears: ABSENT: hearing changes Nose, Mouth, and Throat: ABSENT: as per HPI, headache(s), mouth pain, sore throat, vertigo, other Cardiovascular: ABSENT: chest pain, dyspnea on exertion, edema, orthropnea, palpitations Respiratory: ABSENT: cough, hemoptysis Gastrointestinal: ABSENT: abdominal pain, constipation, diarrhea, hematemesis, hematochezia, nausea, vomiting Genitourinary: ABSENT: dysuria, hematuria Musculoskeletal: PRESENT: other - multiple joints aches and pain Integumentary: ABSENT: rash, wounds Neurological: ABSENT: abnormal gait, abnormal speech, confusion, dizziness, focal weakness, syncope Psychiatric: ABSENT: anxiety, depression, homidical ideation, suicidal ideation Endocrine: ABSENT: cold intolerance, heat intolerance, menstrual abnormalities, polydipsia, polyuria Hematologic/Lymphatic: ABSENT: easy bleeding, easy bruising, lymphadenopathy Allergic/Immunologic: PRESENT: seasonal rhinorrhea Physical Exam Vital Signs: Temp Pulse Resp BP Pulse Ox 97.6 F 99 16 119/62 100 04/16/17 19:40 04/16/17 19:40 04/16/17 19:40 04/16/17 19:40 04/16/17 19:40 General appearance: PRESENT: cooperative, mild distress - due to expressed multiple joints aches and pain Head exam: PRESENT: atraumatic, normocephalic Eye exam: PRESENT: conjunctiva pink, EOMI, PERRLA. ABSENT: scleral icterus Ear exam: PRESENT: normal external ear exam Mouth exam: PRESENT: moist, tongue midline Teeth exam: PRESENT: edentulous - lower gum Throat exam: ABSENT: post pharyngeal erythema, tonsillar erythema, tonsillar exudate, tonsillogmegaly, other Neck exam: PRESENT: full ROM. ABSENT: carotid bruit, JVD, lymphadenopathy, thyromegaly Respiratory exam: PRESENT: clear to auscultation william Cardiovascular exam: PRESENT: RRR. ABSENT: diastolic murmur, rubs, systolic murmur Pulses: PRESENT: normal dorsalis pedis pul, +2 pedal pulses bilateral Vascular exam: PRESENT: normal capillary refill. ABSENT: pallor GI/Abdominal exam: PRESENT: normal bowel sounds, soft. ABSENT: distended, guarding, mass, organolmegaly, rebound, tenderness Rectal exam: PRESENT: deferred Extremities exam: PRESENT: tenderness - multiple joints. ABSENT: calf tenderness, joint swelling, pedal edema Musculoskeletal exam: PRESENT: ambulatory, other - comparative swelling right arm involved in recently doagnosed DVT Neurological exam: PRESENT: alert, awake, oriented to person, oriented to place , oriented to time, oriented to situation, CN II-XII grossly intact. ABSENT: motor sensory deficit Psychiatric exam: PRESENT: appropriate affect, normal mood. ABSENT: homicidal ideation, suicidal ideation Skin exam: PRESENT: dry, intact, warm. ABSENT: cyanosis, rash Results Laboratory Results: I reviewed her lab results on [facility] and form significant part of my medical decision making on this case. Impressions: Chest X-Ray 04/16/17 16:25 IMPRESSION: NO SIGNIFICANT RADIOGRAPHIC FINDING IN THE CHEST. Assessment & Plan - Diagnosis (1) Sickle-cell disease with pain Is this a current diagnosis for this admission?: Yes Plan: See admitting attending physician orders. (2) Anemia Qualifiers: Anemia type: other cause Other causes of anemia: other cause, not classified Qualified Code(s): D64.89 - Other specified anemias Is this a current diagnosis for this admission?: Yes Plan: See admitting attending physician orders. (3) Homozygous sickle cell (SS) disease Is this a current diagnosis for this admission?: Yes Plan: See admitting attending physician orders. (4) Chronic prescription opiate use Is this a current diagnosis for this admission?: Yes Plan: See admitting attending physician orders. (5) Deep venous thrombosis of right upper limb Qualifiers: Affected thrombotic vein of extremity: unspecified vein of extremity Chronicity: acute Qualified Code(s): I82.621 - Acute embolism and thrombosis of deep veins of right upper extremity Is this a current diagnosis for this admission?: Yes Plan: See admitting attending physician orders. (6) Hypertension Qualifiers: Hypertension type: essential hypertension Qualified Code(s): I10 - Essential (primary) hypertension Is this a current diagnosis for this admission?: Yes Plan: See admitting attending physician orders. (7) Major depression Qualifiers: Major depression recurrence: recurrent Major depression episode severity: moderate Is this a current diagnosis for this admission?: Yes Plan: See admitting attending physician orders. - Time Time Spent: 50 to 70 Minutes Medications reviewed and adjusted accordingly: Yes Anticipated discharge: Home Within: Other - Inpatient Certification Based on my medical assessment, after consideration of the patient's comorbidities, presenting symptoms, or acuity I expect that the services needed warrant INPATIENT care.: Yes I certify that my determination is in accordance with my understanding of Medicare's requirements for reasonable and necessary INPATIENT services [42 CFR 412.3e].: Yes Medical Necessity: Need Close Monitoring Due to Risk of Patient Decompensation, Need For IV Fluids, Need For Continuous Telemetry Monitoring, Need for Pain Control, Risk of Complication if Not Cared For in Hospital Post Hospital Care: D/C Traveling Sales Representative Documentation - Plan Summary Plan Summary: See admitting attending physician orders.
[2017-04-16 22:31] LABS: PROTHROMBIN TIME 14.2 SEC (11.4-15.4)
[2017-04-16 22:32] LABS: PARTIAL THROMBOPLASTIN TIME 30.5 SEC (23.5-35.8)
[2017-04-16] MEDS: HYDROMORPHONE HCL INJ/PF 2 MG/ML AMPULE IV PRN (22:37)
[2017-04-16] MEDS: CETIRIZINE 10 MG TABLET PO SCH (22:37)
[2017-04-17] MEDS: HYDROMORPHONE HCL INJ/PF 2 MG/ML AMPULE IV PRN ×7 (03:06→23:49)
[2017-04-17] MEDS: LANSOPRAZOLE 30 MG TAB.RAP.DR PO SCH (06:29)
[2017-04-17] MEDS ORDERED: POLYETHYLENE GLYCOL 3350 POWDER 17 GM/1 PACKET PO PRN (08:00)
[2017-04-17] MEDS ORDERED: SENNOSIDES/DOCUSATE 8.6-50 MG 1 EACH TABLET PO PRN (08:00)
[2017-04-17] MEDS ORDERED: DIPHENHYDRAMINE HCL 50 MG/ML VIAL IV PRN (08:32)
--- NOTE | 2017-04-17 08:34 | PDOC CONSULTATION ---
Consultation Consult Date: 04/17/17 Attending physician:: ROXANA ARCHULETA Consult reason:: Sickle cell disease with crisis History of Present Illness Admission Date/PCP: 04/16/17 21:35 ROXANA ARCHULETA Patient complains of: sickle cell disease crisis, anemia History of Present Illness: 26-year-old female with known history of sickle cell disease with current crisis , she came to her office yesterday, recently she had multiple teeth extractions , since then she has been in a lot of pain, ultimately she started having pain in her arms back and legs consistent with her normal crisis, we had increased her oral opiates, specifically oxycodone to 15 mg at home, from the 10 mg that she usually was on, but this was not controlling pain so we directed her to the ED yesterday, upon admission her hemoglobin was in the 7 range, she has been given 2 units of packed red blood cells. Past Medical History Cardiac Medical History: Reports: Hypertension, Heart Murmur Denies: Coronary Artery Disease, Myocardial Infarction Pulmonary Medical History: Reports: Asthma, Pneumonia Denies: Bronchitis, Chronic Obstructive Pulmonary Disease (COPD), Tuberculosis Neurological Medical History: Reports: Migraine, Seizures - A CHILD Endocrine Medical History: Denies: Diabetes Mellitus Type 2, Hyperthyroidism, Hypothyroidism GI Medical History: Reports: Gastroesophageal Reflux Disease Musculoskeltal Medical History: Denies: Arthritis, Fibromyalgia Psychiatric Medical History: Reports: Depression Hematology: Reports: Anemia, Sickle Cell Disease Past Surgical History Past Surgical History: Reports: Adenoidectomy, Cholecystectomy, Tonsillectomy, Other - Port placement 2 and removal for infection, multiple PICC lines, central l Denies: Hysterectomy, Pacemaker Social History Smoking Status: Never Smoker Frequency of Alcohol Use: None Hx Recreational Drug Use: No Drugs: None Hx Prescription Drug Abuse: No - Advance Directive Resuscitation Status: Full Code Family History Family History: Reviewed & Not Pertinent, DM, Malignancy - Brother with Hodgkin' s lymphoma. Maternal grandfather with lung cancer., Other - sickle trait Parental Family History Reviewed: Yes Children Family History Reviewed: Yes Sibling(s) Family History Reviewed.: Yes Medication/Allergy Home Medications: Amitriptyline HCl [Elavil 25 mg Tablet] 25 mg PO DAILY 04/16/17 Amitriptyline HCl [Elavil 25 mg Tablet] 50 mg PO QPM 04/16/17 Amlodipine Besylate [Norvasc 5 mg Tablet] 5 mg PO DAILY 04/16/17 Cetirizine HCl [Zyrtec 10 mg Tablet] 10 mg PO QHS 04/16/17 Cyclobenzaprine HCl [Flexeril 5 mg Tablet] 5 mg PO Q12HP PRN 04/16/17 Folic Acid [Folvite 1 mg Tablet] 1 mg PO DAILY 04/16/17 Hydroxyurea [Hydrea 500 mg Capsule] 1,500 mg PO SUTUTHSA@1000 04/16/17 Hydroxyurea [Hydrea 500 mg Capsule] 2,000 mg PO MOWEFR@1000 04/16/17 Oxycodone HCl 15 mg PO Q4HP PRN 04/16/17 Promethazine HCl [Phenergan 25 mg Tablet] 25 mg PO Q6HP PRN 04/16/17 Allergies/Adverse Reactions: ceftriaxone sodium [From Rocephin] Allergy (Verified 04/16/17 13:37) Cephalosporins Allergy (Verified 04/16/17 13:37) milk [Milk] Allergy (Verified 04/16/17 13:37) Shellfish * [Shellfish] Allergy (Verified 04/16/17 13:37) wheat [Wheat] Allergy (Verified 04/16/17 13:37) Review of Systems Constitutional: ABSENT: chills, fever(s), headache(s), weight gain, weight loss Eyes: ABSENT: visual disturbances Ears: ABSENT: hearing changes Cardiovascular: ABSENT: chest pain, dyspnea on exertion, edema, orthropnea, palpitations Respiratory: ABSENT: cough, hemoptysis Gastrointestinal: ABSENT: abdominal pain, constipation, diarrhea, hematemesis, hematochezia, nausea, vomiting Genitourinary: ABSENT: dysuria, hematuria Musculoskeletal: ABSENT: joint swelling Integumentary: ABSENT: rash, wounds Neurological: ABSENT: abnormal gait, abnormal speech, confusion, dizziness, focal weakness, syncope Psychiatric: ABSENT: anxiety, depression, homidical ideation, suicidal ideation Endocrine: ABSENT: cold intolerance, heat intolerance, polydipsia, polyuria Hematologic/Lymphatic: ABSENT: easy bleeding, easy bruising Physical Exam Vital Signs: Temp Pulse Resp BP Pulse Ox 97.9 F 77 15 114/70 100 04/17/17 06:57 04/17/17 07:00 04/17/17 06:57 04/17/17 06:57 04/17/17 06:57 Intake & Output 04/16/17 04/17/17 04/18/17 06:59 06:59 06:59 Intake Total 880 550 Output Total 0 Balance 880 550 General appearance: PRESENT: no acute distress, well-developed, well-nourished Head exam: PRESENT: atraumatic, normocephalic Eye exam: PRESENT: conjunctiva pink, EOMI, PERRLA. ABSENT: scleral icterus Ear exam: PRESENT: normal external ear exam Mouth exam: PRESENT: moist, tongue midline Neck exam: ABSENT: carotid bruit, JVD, lymphadenopathy, thyromegaly Respiratory exam: PRESENT: clear to auscultation william. ABSENT: rales, rhonchi, wheezes Cardiovascular exam: PRESENT: RRR. ABSENT: diastolic murmur, rubs, systolic murmur Pulses: PRESENT: normal dorsalis pedis pul Vascular exam: PRESENT: normal capillary refill GI/Abdominal exam: PRESENT: normal bowel sounds, soft. ABSENT: distended, guarding, mass, organolmegaly, rebound, tenderness Rectal exam: PRESENT: deferred Extremities exam: PRESENT: full ROM. ABSENT: calf tenderness, clubbing, pedal edema Neurological exam: PRESENT: alert, awake, oriented to person, oriented to place , oriented to time, oriented to situation, CN II-XII grossly intact. ABSENT: motor sensory deficit Psychiatric exam: PRESENT: appropriate affect, normal mood. ABSENT: homicidal ideation, suicidal ideation Skin exam: PRESENT: dry, intact, warm. ABSENT: cyanosis, rash Results Impressions: Chest X-Ray 04/16/17 16:25 IMPRESSION: NO SIGNIFICANT RADIOGRAPHIC FINDING IN THE CHEST. Assessment & Plan - Diagnosis (1) Sickle cell pain crisis Is this a current diagnosis for this admission?: Yes Plan: Sickle cell disease with pain crisis, will increase her Dilaudid, will add bowel regimen as well as K pad and Benadryl and Zofran. (2) Sickle cell anemia Qualifiers: Sickle-cell associated disorders: with unspecified crisis Qualified Code(s) : D57.00 - Hb-SS disease with crisis, unspecified; D57.0 - Hb-SS disease with crisis Plan: Hemoglobin is 7 currently, awaiting follow-up, her baseline is around 9. - Time Time Spent: 50 to 70 Minutes Critical Time spent with patient: 25-34 minutes
[2017-04-17 09:48] LABS: HEMATOCRIT 26.2 % (36.0-47.0); HGB HCT DIFFERENCE 1.4; MEAN CORPUSCULAR HEMOGLOBIN 37.1 pg (27.0-33.4); MEAN CORPUSCULAR HGB CONC 35.3 g/dL (32.0-36.0); RED BLOOD COUNT 2.49 10^6/uL (3.72-5.28); RED CELL DISTRIBUTION WIDTH 26.8 % (11.5-14.0)
[2017-04-17 09:57] LABS: ALANINE AMINOTRANSFERASE 43 U/L (9-52); ALBUMIN 3.7 g/dL (3.5-5.0); ALKALINE PHOSPHATASE 84 U/L (38-126); ANION GAP 9 (5-19); ASPARTATE AMINO TRANSFERASE 35 U/L (14-36); BILIRUBIN,DIRECT 0.5 mg/dL (0.0-0.4); BILIRUBIN,TOTAL 1.4 mg/dL (0.2-1.3); BLOOD UREA NITROGEN 3 mg/dL (7-20); CALCIUM 8.9 mg/dL (8.4-10.2); CARBON DIOXIDE 25 mmol/L (22-30); CHLORIDE 108 mmol/L (98-107); CREATININE RESULT 0.39 mg/dL (0.52-1.25); GLUCOSE 94 mg/dL (75-110); POTASSIUM 3.9 mmol/L (3.6-5.0); SODIUM 141.6 mmol/L (137-145); TOTAL PROTEIN 6.7 g/dL (6.3-8.2)
[2017-04-17 10:13] LABS: HEMOGLOBIN 9.2 g/dL (12.0-15.5)
[2017-04-17 10:14] LABS: MEAN CORPUSCULAR VOLUME 105 fl (80-97)
[2017-04-17 10:20] LABS: BASOPHILS % (MANUAL) 0 % (0-2); EOSINOPHILS % (MANUAL) 1 % (0-6); LYMPHOCYTES % (MANUAL) 67 % (13-45); NUCLEATED RED BLOOD CELLS 7 /100 WBC (0); TOTAL CELLS COUNTED 100
[2017-04-17 10:24] LABS: ANISOCYTOSIS 3+
[2017-04-17 10:25] LABS: OVALOCYTES 1+; POIKILOCYTOSIS 1+; TARGET CELLS 1+
[2017-04-17] MEDS: AMLODIPINE BESYLATE 5 MG TABLET PO SCH (10:46)
[2017-04-17] MEDS: FOLIC ACID 1 MG TABLET PO SCH (10:46)
[2017-04-17] MEDS: AMITRIPTYLINE HCL 25 MG TABLET PO SCH ×2 (10:49→17:37)
[2017-04-17] MEDS: HYDROXYUREA 500 MG CAPSULE PO SCH (10:49)
[2017-04-17] MEDS: RIVAROXABAN 10 MG TABLET PO SCH (14:00)
[2017-04-17] MEDS: ONDANSETRON HCL INJ/PF 4 MG/2 ML SDV IV PRN ×2 (14:56→22:55)
--- NOTE | 2017-04-17 17:56 | PDOC PROGRESS REPORT ---
Subjective Progress Note for:: 04/17/17 Subjective:: Patient is demanding for PICC line and IV Diphehydramine dosing with her IV Dilaudid. She reported fair pain management with IV Dilaudid. Maintain on Zofran for nausea and vomiting management. No chest pain or difficulty with breathing. No fever or chills. Physical Exam Vital Signs: Temp Pulse Resp BP Pulse Ox 98.0 F 89 16 128/66 H 100 04/17/17 16:00 04/17/17 16:00 04/17/17 16:00 04/17/17 16:00 04/17/17 16:00 Intake & Output 04/16/17 04/17/17 04/18/17 06:59 06:59 06:59 Intake Total 880 550 Output Total 0 Balance 880 550 General appearance: PRESENT: no acute distress. 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 Head exam: PRESENT: atraumatic, normocephalic Eye exam: PRESENT: conjunctiva pink, EOMI, PERRLA. ABSENT: scleral icterus Mouth exam: PRESENT: moist Respiratory exam: PRESENT: clear to auscultation william Cardiovascular exam: PRESENT: RRR. ABSENT: diastolic murmur, rubs, systolic murmur Vascular exam: PRESENT: normal capillary refill. ABSENT: pallor GI/Abdominal exam: PRESENT: normal bowel sounds, soft. ABSENT: distended, guarding, mass, organolmegaly, rebound, tenderness Musculoskeletal exam: PRESENT: tenderness - multipl joints due to SCD pain crisis Neurological exam: PRESENT: alert, awake, oriented to person, oriented to place , oriented to time, oriented to situation, CN II-XII grossly intact. ABSENT: motor sensory deficit Psychiatric exam: PRESENT: appropriate affect, normal mood. ABSENT: homicidal ideation, suicidal ideation Results Laboratory Results: 04/17/17 09:10 04/17/17 09:10 04/17/17 04/17/17 09:10 09:10 WBC 3.0 L RBC 2.49 L Hgb 9.2 L D Hct 26.2 L MCV 105 H D MCH 37.1 H MCHC 35.3 RDW 26.8 H Plt Count 197 Seg Neutrophils % Not Reportable Lymphocytes % Not Reportable Monocytes % Not Reportable Eosinophils % Not Reportable Basophils % Not Reportable Absolute Neutrophils Not Reportable Absolute Lymphocytes Not Reportable Absolute Monocytes Not Reportable Absolute Eosinophils Not Reportable Absolute Basophils Not Reportable Sodium 141.6 Potassium 3.9 Chloride 108 H Carbon Dioxide 25 Anion Gap 9 BUN 3 L Creatinine 0.39 L Est GFR ( Amer) > 60 Est GFR (Non-Af Amer) > 60 Glucose 94 Calcium 8.9 Total Bilirubin 1.4 H AST 35 ALT 43 Alkaline Phosphatase 84 Total Protein 6.7 Albumin 3.7 Impressions: Chest X-Ray 04/16/17 16:25 IMPRESSION: NO SIGNIFICANT RADIOGRAPHIC FINDING IN THE CHEST. Assessment & Plan - Diagnosis (1) Sickle-cell disease with pain Is this a current diagnosis for this admission?: Yes (2) Anemia Qualifiers: Anemia type: other cause Other causes of anemia: other cause, not classified Qualified Code(s): D64.89 - Other specified anemias Is this a current diagnosis for this admission?: Yes (3) Homozygous sickle cell (SS) disease Is this a current diagnosis for this admission?: Yes (4) Chronic prescription opiate use Is this a current diagnosis for this admission?: Yes (5) Deep venous thrombosis of right upper limb Qualifiers: Affected thrombotic vein of extremity: unspecified vein of extremity Chronicity: acute Qualified Code(s): I82.621 - Acute embolism and thrombosis of deep veins of right upper extremity Is this a current diagnosis for this admission?: Yes (6) Hypertension Qualifiers: Hypertension type: essential hypertension Qualified Code(s): I10 - Essential (primary) hypertension Is this a current diagnosis for this admission?: Yes (7) Major depression Qualifiers: Major depression recurrence: recurrent Major depression episode severity: moderate Is this a current diagnosis for this admission?: Yes - Time Time Spent with patient: 25-34 minutes Medications reviewed and adjusted accordingly: Yes Anticipated discharge: Home Within: Other - Inpatient Certification Based on my medical assessment, after consideration of the patient's comorbidities, presenting symptoms, or acuity I expect that the services needed warrant INPATIENT care.: Yes I certify that my determination is in accordance with my understanding of Medicare's requirements for reasonable and necessary INPATIENT services [42 CFR 412.3e].: Yes Medical Necessity: Need Close Monitoring Due to Risk of Patient Decompensation, Need For IV Fluids, Need for Pain Control, Risk of Complication if Not Cared For in Hospital Post Hospital Care: D/C Rn Ante Partum Documentation - Plan Summary Plan Summary: I had discussion with patient regard my concern with combine use of IV Dilaudid and Diphenhydramine usage. I will discontinue use of IV Diphenhydramine. I emphasized compliance with IV site management. Continue all other current medication management.
[2017-04-17] MEDS: CETIRIZINE 10 MG TABLET PO SCH (22:55)
[2017-04-18] MEDS: HYDROMORPHONE HCL INJ/PF 2 MG/ML AMPULE IV PRN ×7 (03:20→23:29)
[2017-04-18] MEDS: LANSOPRAZOLE 30 MG TAB.RAP.DR PO SCH (06:16)
[2017-04-18] MEDS ORDERED: OXYCODONE HCL IR 5 MG TABLET PO PRN (07:36)
[2017-04-18] MEDS ORDERED: LIDOCAINE 1% INJ-PF (10 MG/ML) 30 ML SDV INJ PRN (08:34)
--- NOTE | 2017-04-18 08:35 | PDOC PROGRESS REPORT ---
Subjective Progress Note for:: 04/18/17 Subjective:: Patient is unfortunately lost her IV, Dr. Jones was uncomfortable with the idea of PICC line, because of recent thrombosis, so I did explain to the patient the next choice would be central line, so this would be the next step of care. She still requiring IV Dilaudid, she will probably need this for the next 3-4 days. Physical Exam Vital Signs: Temp Pulse Resp BP Pulse Ox 98.2 F 79 16 116/50 L 100 04/18/17 08:00 04/18/17 08:00 04/18/17 08:00 04/18/17 08:00 04/18/17 08:00 Intake & Output 04/17/17 04/18/17 04/19/17 06:59 06:59 06:59 Intake Total 880 4480 Output Total 0 4 Balance 880 4476 General appearance: PRESENT: no acute distress, well-developed, well-nourished Head exam: PRESENT: atraumatic, normocephalic Eye exam: PRESENT: conjunctiva pink, EOMI, PERRLA. ABSENT: scleral icterus Ear exam: PRESENT: normal external ear exam Mouth exam: PRESENT: moist, tongue midline Neck exam: ABSENT: carotid bruit, JVD, lymphadenopathy, thyromegaly Respiratory exam: PRESENT: clear to auscultation william. ABSENT: rales, rhonchi, wheezes Cardiovascular exam: PRESENT: RRR. ABSENT: diastolic murmur, rubs, systolic murmur Pulses: PRESENT: normal dorsalis pedis pul Vascular exam: PRESENT: normal capillary refill GI/Abdominal exam: PRESENT: normal bowel sounds, soft. ABSENT: distended, guarding, mass, organolmegaly, rebound, tenderness Rectal exam: PRESENT: deferred Extremities exam: PRESENT: full ROM. ABSENT: calf tenderness, clubbing, pedal edema Neurological exam: PRESENT: alert, awake, oriented to person, oriented to place , oriented to time, oriented to situation, CN II-XII grossly intact. ABSENT: motor sensory deficit Psychiatric exam: PRESENT: appropriate affect, normal mood. ABSENT: homicidal ideation, suicidal ideation Skin exam: PRESENT: dry, intact, warm. ABSENT: cyanosis, rash Results Laboratory Results: 04/17/17 09:10 04/17/17 09:10 04/17/17 04/17/17 09:10 09:10 WBC 3.0 L RBC 2.49 L Hgb 9.2 L D Hct 26.2 L MCV 105 H D MCH 37.1 H MCHC 35.3 RDW 26.8 H Plt Count 197 Seg Neutrophils % Not Reportable Lymphocytes % Not Reportable Monocytes % Not Reportable Eosinophils % Not Reportable Basophils % Not Reportable Absolute Neutrophils Not Reportable Absolute Lymphocytes Not Reportable Absolute Monocytes Not Reportable Absolute Eosinophils Not Reportable Absolute Basophils Not Reportable Sodium 141.6 Potassium 3.9 Chloride 108 H Carbon Dioxide 25 Anion Gap 9 BUN 3 L Creatinine 0.39 L Est GFR ( Amer) > 60 Est GFR (Non-Af Amer) > 60 Glucose 94 Calcium 8.9 Total Bilirubin 1.4 H AST 35 ALT 43 Alkaline Phosphatase 84 Total Protein 6.7 Albumin 3.7 Impressions: Chest X-Ray 04/16/17 16:25 IMPRESSION: NO SIGNIFICANT RADIOGRAPHIC FINDING IN THE CHEST. Assessment & Plan - Diagnosis (1) Sickle cell pain crisis Is this a current diagnosis for this admission?: Yes Plan: Hopeful placement of central line soon, continued IV Dilaudid, continued IV hydration will be needed. (2) Sickle cell anemia Qualifiers: Sickle-cell associated disorders: with unspecified crisis Qualified Code(s) : D57.00 - Hb-SS disease with crisis, unspecified; D57.0 - Hb-SS disease with crisis Plan: Hemoglobin improved post transfusion, continue to monitor now (3) Sickle cell crisis Plan: Patient with sickle cell SS disease, probably will need another 3-4 days of crisis management. - Time Time Spent with patient: 35 or more minutes Critical Time spent with patient: 35 or more minutes - Inpatient Certification Based on my medical assessment, after consideration of the patient's comorbidities, presenting symptoms, or acuity I expect that the services needed warrant INPATIENT care.: Yes I certify that my determination is in accordance with my understanding of Medicare's requirements for reasonable and necessary INPATIENT services [42 CFR 412.3e].: Yes Medical Necessity: Need For IV Fluids, Need for Pain Control
--- NOTE | 2017-04-18 11:00 | RADIOLOGY REPORT (SQ) ---
EXAM DESCRIPTION: CHEST SINGLE VIEW COMPLETED DATE/TIME: 04/18/2017 10:51 am REASON FOR STUDY: LINE PLACEMENT COMPARISON: 04/16/2017 EXAM PARAMETERS: NUMBER OF VIEWS: One view. TECHNIQUE: Single frontal radiographic view of the chest acquired. RADIATION DOSE: NA LIMITATIONS: None. FINDINGS: LUNGS AND PLEURA: No opacities, masses or pneumothorax. No pleural effusion. MEDIASTINUM AND HILAR STRUCTURES: No masses. Contour normal. HEART AND VASCULAR STRUCTURES: Heart normal in size. Normal vasculature. BONES: No acute findings. HARDWARE: A left internal jugular catheter has its tip in the superior vena cava near the right atriu m. OTHER: No other significant finding. IMPRESSION: Catheter placement as described. No acute cardiopulmonary disease. TECHNICAL DOCUMENTATION: JOB ID: [id number]
[2017-04-18] MEDS: FOLIC ACID 1 MG TABLET PO SCH (11:06)
[2017-04-18] MEDS: AMLODIPINE BESYLATE 5 MG TABLET PO SCH (11:07)
[2017-04-18] MEDS: HYDROXYUREA 500 MG CAPSULE PO SCH (11:08)
[2017-04-18] MEDS: AMITRIPTYLINE HCL 25 MG TABLET PO SCH ×2 (11:08→17:19)
[2017-04-18] MEDS: RIVAROXABAN 10 MG TABLET PO SCH (11:11)
--- NOTE | 2017-04-18 12:33 | OPERATIVE REPORT E ---
Operative Report NAME: PRANAV JOINER : 1990 AGE: 26Y DATE OF SURGERY: 04/18/2017 ROOM: 529 PREOPERATIVE DIAGNOSES: 1. Poor veins for IV access. 2. Patient with sickle cell disease. POSTOPERATIVE DIAGNOSES: 1. Poor veins for IV access. 2. Patient with sickle cell disease. PROCEDURE: Placement of a left central line, left internal jugular vein, under ultrasound guidance. SURGEON: KIKE LUGO M.D. ANESTHESIA: Local. INDICATION: A 26-year-old female with a sickle cell crisis in need of IV access. Nurses unable to place a peripheral line. DESCRIPTION OF PROCEDURE: The patient was placed in the slight Trendelenburg position and the left chest and leg were then prepped and draped in the usual sterile fashion. Local anesthesia infiltrated in the left infraclavicular area. The left subclavian vein was attempted to be punctured, but was unable to for several attempts. Next, the left internal jugular vein area was then anesthetized with 1% Xylocaine between the sternoclavicular heads and the sternocleidomastoid muscle. Again, several attempts to puncture the internal jugular vein was then done, but was unable to do so. Finally, with the use of the ultrasound, the left internal jugular vein was then punctured and guidewire passed through the needle into the direction of the superior vena cava. The puncture site was then dilated and a triple lumen catheter inserted through the guidewire into the direction of the superior vena cava. About 16 cm of the catheter was placed. Next, the catheter was then anchored to the skin with 3-0 silk. Biopatch placed at the insertion site and a transparent dressing placed over the catheter and the Biopatch. The patient tolerated the procedure quite well. A chest x-ray will be obtained for placement. DICTATING PHYSICIAN: KIKE LUGO M.D. [id number] PHY#: [id number] ID: [id number] JOB#: [id number] ACCT: [id number] cc:KIKE LUGO M.D. >
--- NOTE | 2017-04-18 15:59 | Physician Advisory Note ---
Physician Advisor ProgressNote .: Pursuant to the plan for [facility], I have reviewed the medical record for this patient. Physician Advisor Statement: Thanks for documenting the type sickle dz! It helps the coders! Please consider documenting, if you agree: 1. "HgbSS sickle disease with crisis" 2. "mild-mod malnutrition, evidenced by very low BUN & Cr, ..." Thanks! CK
[2017-04-18] MEDS: ONDANSETRON HCL INJ/PF 4 MG/2 ML SDV IV PRN (20:19)
--- NOTE | 2017-04-18 20:25 | PDOC PROGRESS REPORT ---
Subjective Progress Note for:: 04/18/17 Subjective:: Patient lost peripheral IV access and needed central line placement for continue care. Her pain is fairly controlled on current regimen. She denied chest pain or difficulty with breathing. No fever or chills. Physical Exam Vital Signs: Temp Pulse Resp BP Pulse Ox 98.1 F 86 16 122/58 L 100 04/18/17 16:00 04/18/17 19:00 04/18/17 16:00 04/18/17 16:00 04/18/17 16:00 Intake & Output 04/17/17 04/18/17 04/19/17 06:59 06:59 06:59 Intake Total 880 4480 1660 Output Total 0 4 Balance 880 4476 1660 Physical Exam: General appearance: PRESENT: no acute distress. Head exam: PRESENT: atraumatic, normocephalic Eye exam: PRESENT: conjunctiva pink, EOMI, PERRLA. ABSENT: scleral icterus Mouth exam: PRESENT: moist Respiratory exam: PRESENT: clear to auscultation william Cardiovascular exam: PRESENT: RRR. ABSENT: diastolic murmur, rubs, systolic murmur Vascular exam: PRESENT: normal capillary refill. ABSENT: pallor GI/Abdominal exam: PRESENT: normal bowel sounds, soft. ABSENT: distended, guarding, mass, organomegaly, rebound, tenderness Musculoskeletal exam: PRESENT: tenderness - multiple joints due to SCD pain crisis Neurological exam: PRESENT: alert, awake, oriented to person, oriented to place , oriented to time, oriented to situation, CN II-XII grossly intact. ABSENT: motor sensory deficit Psychiatric exam: PRESENT: appropriate affect, normal mood. ABSENT: homicidal ideation, suicidal ideation Results Laboratory Results: 04/17/17 09:10 04/17/17 09:10 Impressions: Chest X-Ray 04/18/17 00:00 IMPRESSION: Catheter placement as described. No acute cardiopulmonary disease. Assessment & Plan - Diagnosis (1) Sickle-cell disease with pain Is this a current diagnosis for this admission?: Yes (2) Anemia Qualifiers: Anemia type: other cause Other causes of anemia: other cause, not classified Qualified Code(s): D64.89 - Other specified anemias Is this a current diagnosis for this admission?: Yes (3) Homozygous sickle cell (SS) disease Is this a current diagnosis for this admission?: Yes (4) Chronic prescription opiate use Is this a current diagnosis for this admission?: Yes (5) Deep venous thrombosis of right upper limb Qualifiers: Affected thrombotic vein of extremity: unspecified vein of extremity Chronicity: acute Qualified Code(s): I82.621 - Acute embolism and thrombosis of deep veins of right upper extremity Is this a current diagnosis for this admission?: Yes (6) Hypertension Qualifiers: Hypertension type: essential hypertension Qualified Code(s): I10 - Essential (primary) hypertension Is this a current diagnosis for this admission?: Yes (7) Major depression Qualifiers: Major depression recurrence: recurrent Major depression episode severity: moderate Is this a current diagnosis for this admission?: Yes - Time Time Spent with patient: 35 or more minutes - I had extensive discussion with patient and mother at bedside during my consultation today. She is agreeable with central line placement and consideration of [id number] placement on outpatient upon discharge. Anticipated discharge: Home Within: Other - Inpatient Certification Based on my medical assessment, after consideration of the patient's comorbidities, presenting symptoms, or acuity I expect that the services needed warrant INPATIENT care.: Yes I certify that my determination is in accordance with my understanding of Medicare's requirements for reasonable and necessary INPATIENT services [42 CFR 412.3e].: Yes Medical Necessity: Need Close Monitoring Due to Risk of Patient Decompensation, Need For IV Fluids, Need For Continuous Telemetry Monitoring, Need for Pain Control, Risk of Complication if Not Cared For in Hospital Post Hospital Care: D/C Trauma Doctor Documentation - Plan Summary Plan Summary: Continue current pain management regimen and IV fluid hydration support.
[2017-04-18] MEDS: CETIRIZINE 10 MG TABLET PO SCH (23:29)
[2017-04-19] MEDS: HYDROMORPHONE HCL INJ/PF 2 MG/ML AMPULE IV PRN ×7 (02:34→23:41)
[2017-04-19] MEDS: LANSOPRAZOLE 30 MG TAB.RAP.DR PO SCH (05:35)
--- NOTE | 2017-04-19 09:05 | PDOC PROGRESS REPORT ---
Subjective Progress Note for:: 04/19/17 Subjective:: Patient had a really rough day yesterday, unfortunately lost the IV at 3 AM and did not have central line placement until about 10 AM, and ultimately got more pain medication 11 AM, so she actually went about 8 hours without pain medication, the dose of pain medication is appropriate but it is not lasting for 3 hours so we will change to every 2 hours today. She had a bowel movement. Physical Exam Vital Signs: Temp Pulse Resp BP Pulse Ox 98.0 F 103 H 18 139/70 H 100 04/19/17 08:30 04/19/17 08:30 04/19/17 08:30 04/19/17 08:30 04/19/17 08:30 Intake & Output 04/18/17 04/19/17 04/20/17 06:59 06:59 06:59 Intake Total 4480 3410 Output Total 4 Balance 4476 3410 Weight 62 kg General appearance: PRESENT: no acute distress, well-developed, well-nourished Head exam: PRESENT: atraumatic, normocephalic Eye exam: PRESENT: conjunctiva pink, EOMI, PERRLA. ABSENT: scleral icterus Ear exam: PRESENT: normal external ear exam Mouth exam: PRESENT: moist, tongue midline Neck exam: ABSENT: carotid bruit, JVD, lymphadenopathy, thyromegaly Respiratory exam: PRESENT: clear to auscultation william. ABSENT: rales, rhonchi, wheezes Cardiovascular exam: PRESENT: RRR. ABSENT: diastolic murmur, rubs, systolic murmur Pulses: PRESENT: normal dorsalis pedis pul Vascular exam: PRESENT: normal capillary refill GI/Abdominal exam: PRESENT: normal bowel sounds, soft. ABSENT: distended, guarding, mass, organolmegaly, rebound, tenderness Rectal exam: PRESENT: deferred Extremities exam: PRESENT: full ROM. ABSENT: calf tenderness, clubbing, pedal edema Neurological exam: PRESENT: alert, awake, oriented to person, oriented to place , oriented to time, oriented to situation, CN II-XII grossly intact. ABSENT: motor sensory deficit Psychiatric exam: PRESENT: appropriate affect, normal mood. ABSENT: homicidal ideation, suicidal ideation Skin exam: PRESENT: dry, intact, warm. ABSENT: cyanosis, rash Results Laboratory Results: 04/17/17 09:10 04/17/17 09:10 Impressions: Chest X-Ray 04/18/17 00:00 IMPRESSION: Catheter placement as described. No acute cardiopulmonary disease. Assessment & Plan - Diagnosis (1) Sickle cell pain crisis Is this a current diagnosis for this admission?: Yes Plan: Continue with current pain regimen, continue other supportive measures, she will need another 2-3 days most likely (2) Sickle cell anemia Qualifiers: Sickle-cell associated disorders: with unspecified crisis Qualified Code(s) : D57.00 - Hb-SS disease with crisis, unspecified; D57.0 - Hb-SS disease with crisis Plan: Hemoglobin stable posttransfusion will monitor - Time Time Spent with patient: 35 or more minutes Critical Time spent with patient: 35 or more minutes - Inpatient Certification Based on my medical assessment, after consideration of the patient's comorbidities, presenting symptoms, or acuity I expect that the services needed warrant INPATIENT care.: Yes I certify that my determination is in accordance with my understanding of Medicare's requirements for reasonable and necessary INPATIENT services [42 CFR 412.3e].: Yes Medical Necessity: Need For IV Fluids, Need for Pain Control
[2017-04-19] MEDS: ONDANSETRON HCL INJ/PF 4 MG/2 ML SDV IV PRN ×2 (09:10→20:17)
[2017-04-19] MEDS: NORMAL SALINE 1000 ML 1,000 ML IV PRN ×2 (09:11→20:15)
[2017-04-19] MEDS: RIVAROXABAN 10 MG TABLET PO SCH (09:51)
[2017-04-19] MEDS: AMLODIPINE BESYLATE 5 MG TABLET PO SCH (09:51)
[2017-04-19] MEDS: HYDROXYUREA 500 MG CAPSULE PO SCH (09:51)
[2017-04-19] MEDS: AMITRIPTYLINE HCL 25 MG TABLET PO SCH ×2 (09:51→17:57)
[2017-04-19] MEDS: FOLIC ACID 1 MG TABLET PO SCH (09:51)
--- NOTE | 2017-04-19 14:50 | PDOC PROGRESS REPORT ---
Subjective Progress Note for:: 04/19/17 Subjective:: Patient continue to reported pain level of 5/10 and generalized in location. She is currently on Dilaudid 4mg q 2hours but request have been about 3.5 to 4 hours from nursing documentation. She denied chest pain or difficulty with breathing. No fever or chills. Physical Exam Vital Signs: Temp Pulse Resp BP Pulse Ox 98.2 F 92 18 117/65 100 04/19/17 11:51 04/19/17 11:51 04/19/17 11:51 04/19/17 11:51 04/19/17 11:51 Intake & Output 04/18/17 04/19/17 04/20/17 06:59 06:59 06:59 Intake Total 4480 3410 Output Total 4 Balance 4476 3410 Weight 62 kg Physical Exam: General appearance: PRESENT: no acute distress. Head exam: PRESENT: atraumatic, normocephalic Eye exam: PRESENT: conjunctiva pink, EOMI, PERRLA. ABSENT: scleral icterus Mouth exam: PRESENT: moist Respiratory exam: PRESENT: clear to auscultation william Cardiovascular exam: PRESENT: RRR. ABSENT: diastolic murmur, rubs, systolic murmur Vascular exam: PRESENT: normal capillary refill. ABSENT: pallor GI/Abdominal exam: PRESENT: normal bowel sounds, soft. ABSENT: distended, guarding, mass, organomegaly, rebound, tenderness Musculoskeletal exam: PRESENT: tenderness - multiple joints due to SCD pain crisis Neurological exam: PRESENT: alert, awake, oriented to person, oriented to place , oriented to time, oriented to situation, CN II-XII grossly intact. ABSENT: motor sensory deficit Psychiatric exam: PRESENT: appropriate affect, normal mood. ABSENT: homicidal ideation, suicidal ideation Results Laboratory Results: 04/17/17 09:10 04/17/17 09:10 Impressions: Chest X-Ray 04/18/17 00:00 IMPRESSION: Catheter placement as described. No acute cardiopulmonary disease. Assessment & Plan - Diagnosis (1) Sickle-cell disease with pain Is this a current diagnosis for this admission?: Yes (2) Anemia Qualifiers: Anemia type: other cause Other causes of anemia: other cause, not classified Qualified Code(s): D64.89 - Other specified anemias Is this a current diagnosis for this admission?: Yes (3) Homozygous sickle cell (SS) disease Is this a current diagnosis for this admission?: Yes (4) Chronic prescription opiate use Is this a current diagnosis for this admission?: Yes (5) Deep venous thrombosis of right upper limb Qualifiers: Affected thrombotic vein of extremity: unspecified vein of extremity Chronicity: acute Qualified Code(s): I82.621 - Acute embolism and thrombosis of deep veins of right upper extremity Is this a current diagnosis for this admission?: Yes (6) Hypertension Qualifiers: Hypertension type: essential hypertension Qualified Code(s): I10 - Essential (primary) hypertension Is this a current diagnosis for this admission?: Yes (7) Major depression Qualifiers: Major depression recurrence: recurrent Major depression episode severity: moderate Is this a current diagnosis for this admission?: Yes - Time Time Spent with patient: 25-34 minutes Medications reviewed and adjusted accordingly: Yes Anticipated discharge: Home Within: Other - Inpatient Certification Based on my medical assessment, after consideration of the patient's comorbidities, presenting symptoms, or acuity I expect that the services needed warrant INPATIENT care.: Yes I certify that my determination is in accordance with my understanding of Medicare's requirements for reasonable and necessary INPATIENT services [42 CFR 412.3e].: Yes Medical Necessity: Need Close Monitoring Due to Risk of Patient Decompensation, Need For IV Fluids, Need for Pain Control, Risk of Complication if Not Cared For in Hospital - Plan Summary Plan Summary: Continue IV Dilaudid therapy for pain crisis management. I will start tapering her off Dilaudid at 4mg c1mormi on prn basis. I will attempt to get her off IV Dilaudid over next 48-72 hours.
[2017-04-19] MEDS: CETIRIZINE 10 MG TABLET PO SCH (22:12)
[2017-04-20] MEDS: HYDROMORPHONE HCL INJ/PF 2 MG/ML AMPULE IV PRN ×7 (02:49→23:26)
[2017-04-20] MEDS: LANSOPRAZOLE 30 MG TAB.RAP.DR PO SCH (05:47)
[2017-04-20] MEDS: NORMAL SALINE 1000 ML 1,000 ML IV PRN ×2 (06:29→15:29)
[2017-04-20] MEDS: AMITRIPTYLINE HCL 25 MG TABLET PO SCH ×2 (09:32→17:03)
[2017-04-20] MEDS: ONDANSETRON HCL INJ/PF 4 MG/2 ML SDV IV PRN ×2 (09:32→18:02)
[2017-04-20] MEDS: FOLIC ACID 1 MG TABLET PO SCH (09:32)
[2017-04-20] MEDS: HYDROXYUREA 500 MG CAPSULE PO SCH (09:32)
[2017-04-20] MEDS: RIVAROXABAN 10 MG TABLET PO SCH (09:32)
[2017-04-20] MEDS: AMLODIPINE BESYLATE 5 MG TABLET PO SCH (09:32)
--- NOTE | 2017-04-20 10:36 | PDOC PROGRESS REPORT ---
Subjective Progress Note for:: 04/20/17 Subjective:: No acute events overnight, patient seems more comfortable, no new needs Physical Exam Vital Signs: Temp Pulse Resp BP Pulse Ox 97.8 F 85 16 124/56 L 100 04/20/17 08:02 04/20/17 08:02 04/20/17 08:02 04/20/17 08:02 04/20/17 08:02 Intake & Output 04/19/17 04/20/17 04/21/17 06:59 06:59 06:59 Intake Total 3410 3600 Balance 3410 3600 Weight 62 kg 68.9 kg General appearance: PRESENT: no acute distress, well-developed, well-nourished Head exam: PRESENT: atraumatic, normocephalic Eye exam: PRESENT: conjunctiva pink, EOMI, PERRLA. ABSENT: scleral icterus Ear exam: PRESENT: normal external ear exam Mouth exam: PRESENT: moist, tongue midline Neck exam: ABSENT: carotid bruit, JVD, lymphadenopathy, thyromegaly Respiratory exam: PRESENT: clear to auscultation william. ABSENT: rales, rhonchi, wheezes Cardiovascular exam: PRESENT: RRR. ABSENT: diastolic murmur, rubs, systolic murmur Pulses: PRESENT: normal dorsalis pedis pul Vascular exam: PRESENT: normal capillary refill GI/Abdominal exam: PRESENT: normal bowel sounds, soft. ABSENT: distended, guarding, mass, organolmegaly, rebound, tenderness Rectal exam: PRESENT: deferred Extremities exam: PRESENT: full ROM. ABSENT: calf tenderness, clubbing, pedal edema Neurological exam: PRESENT: alert, awake, oriented to person, oriented to place , oriented to time, oriented to situation, CN II-XII grossly intact. ABSENT: motor sensory deficit Psychiatric exam: PRESENT: appropriate affect, normal mood. ABSENT: homicidal ideation, suicidal ideation Skin exam: PRESENT: dry, intact, warm. ABSENT: cyanosis, rash Results Laboratory Results: 04/17/17 09:10 04/17/17 09:10 Impressions: Chest X-Ray 04/18/17 00:00 IMPRESSION: Catheter placement as described. No acute cardiopulmonary disease. Assessment & Plan - Diagnosis (1) Sickle cell pain crisis Is this a current diagnosis for this admission?: Yes Plan: Continue current pain regimen (2) Sickle cell anemia Qualifiers: Sickle-cell associated disorders: with unspecified crisis Qualified Code(s) : D57.00 - Hb-SS disease with crisis, unspecified; D57.0 - Hb-SS disease with crisis Plan: Hemoglobin stable
--- NOTE | 2017-04-20 17:32 | PDOC PROGRESS REPORT ---
Subjective Progress Note for:: 04/20/17 Subjective:: She is admitted for deep vein thrombosis of upper extremity, sickle cell disease with bone pain crisis Physical Exam Vital Signs: Temp Pulse Resp BP Pulse Ox 98.7 F 108 H 18 132/64 H 97 04/20/17 15:52 04/20/17 15:52 04/20/17 15:52 04/20/17 15:52 04/20/17 15:52 Intake & Output 04/19/17 04/20/17 04/21/17 06:59 06:59 06:59 Intake Total 3410 3600 1000 Balance 3410 3600 1000 Weight 62 kg 68.9 kg General appearance: PRESENT: no acute distress Head exam: PRESENT: atraumatic, normocephalic Eye exam: PRESENT: PERRLA Ear exam: PRESENT: normal external ear exam Respiratory exam: PRESENT: clear to auscultation william Cardiovascular exam: PRESENT: RRR, +S1, +S2 Pulses: PRESENT: normal dorsalis pedis pul, +2 pedal pulses bilateral Vascular exam: PRESENT: normal capillary refill GI/Abdominal exam: PRESENT: normal bowel sounds, soft Rectal exam: PRESENT: deferred Neurological exam: PRESENT: alert, awake, oriented to person, oriented to place , oriented to time, oriented to situation, CN II-XII grossly intact. ABSENT: motor sensory deficit Psychiatric exam: PRESENT: appropriate affect, normal mood. ABSENT: homicidal ideation, suicidal ideation Skin exam: PRESENT: dry, intact, warm. ABSENT: cyanosis, rash Results Laboratory Results: 04/17/17 09:10 04/17/17 09:10 Impressions: Chest X-Ray 04/18/17 00:00 IMPRESSION: Catheter placement as described. No acute cardiopulmonary disease. Assessment & Plan - Diagnosis (1) Chronic prescription opiate use Is this a current diagnosis for this admission?: Yes (2) Homozygous sickle cell (SS) disease Is this a current diagnosis for this admission?: Yes (3) Sickle cell anemia Qualifiers: Sickle-cell associated disorders: with unspecified crisis Qualified Code(s) : D57.00 - Hb-SS disease with crisis, unspecified; D57.0 - Hb-SS disease with crisis Is this a current diagnosis for this admission?: Yes (4) Sickle cell pain crisis Is this a current diagnosis for this admission?: Yes
[2017-04-20] MEDS: CETIRIZINE 10 MG TABLET PO SCH (22:00)
[2017-04-21] MEDS: ONDANSETRON HCL INJ/PF 4 MG/2 ML SDV IV PRN ×2 (02:34→12:53)
[2017-04-21] MEDS: HYDROMORPHONE HCL INJ/PF 2 MG/ML AMPULE IV PRN ×7 (02:34→22:50)
[2017-04-21] MEDS: LANSOPRAZOLE 30 MG TAB.RAP.DR PO SCH (06:11)
[2017-04-21] MEDS: AMLODIPINE BESYLATE 5 MG TABLET PO SCH (09:34)
[2017-04-21] MEDS: AMITRIPTYLINE HCL 25 MG TABLET PO SCH ×2 (09:34→17:35)
[2017-04-21] MEDS: FOLIC ACID 1 MG TABLET PO SCH (09:34)
[2017-04-21] MEDS: RIVAROXABAN 10 MG TABLET PO SCH (09:34)
[2017-04-21] MEDS: HYDROXYUREA 500 MG CAPSULE PO SCH (09:34)
[2017-04-21] MEDS: NORMAL SALINE 1000 ML 1,000 ML IV PRN (12:54)
--- NOTE | 2017-04-21 22:15 | PDOC PROGRESS REPORT ---
Subjective Progress Note for:: 04/21/17 Subjective:: She is admitted for deep vein thrombosis of upper extremity, sickle cell disease with bone pain crisis Physical Exam Vital Signs: Temp Pulse Resp BP Pulse Ox 98.3 F 106 H 17 126/75 H 100 04/21/17 19:49 04/21/17 19:49 04/21/17 19:49 04/21/17 19:49 04/21/17 19:49 Intake & Output 04/20/17 04/21/17 04/22/17 06:59 06:59 06:59 Intake Total 3600 5040 3050 Balance 3600 5040 3050 Weight 68.9 kg General appearance: PRESENT: no acute distress, well-developed, well-nourished Head exam: PRESENT: atraumatic, normocephalic Eye exam: PRESENT: conjunctiva pink, EOMI, PERRLA. ABSENT: scleral icterus Ear exam: PRESENT: normal external ear exam Mouth exam: PRESENT: moist, tongue midline Neck exam: PRESENT: full ROM. ABSENT: carotid bruit, JVD, lymphadenopathy, thyromegaly Cardiovascular exam: PRESENT: RRR. ABSENT: diastolic murmur, rubs, systolic murmur Pulses: PRESENT: normal dorsalis pedis pul, +2 pedal pulses bilateral Vascular exam: PRESENT: normal capillary refill GI/Abdominal exam: PRESENT: normal bowel sounds, soft. ABSENT: distended, guarding, mass, organolmegaly, rebound, tenderness Rectal exam: PRESENT: deferred Neurological exam: PRESENT: alert, awake, oriented to person, oriented to place , oriented to time, oriented to situation, CN II-XII grossly intact. ABSENT: motor sensory deficit Psychiatric exam: PRESENT: appropriate affect, normal mood. ABSENT: homicidal ideation, suicidal ideation Skin exam: PRESENT: dry, intact, warm. ABSENT: cyanosis, rash Results Laboratory Results: 04/17/17 09:10 04/17/17 09:10 Impressions: Chest X-Ray 04/18/17 00:00 IMPRESSION: Catheter placement as described. No acute cardiopulmonary disease. Assessment & Plan - Diagnosis (1) Sickle cell pain crisis Is this a current diagnosis for this admission?: Yes (2) Chronic prescription opiate use Is this a current diagnosis for this admission?: Yes (3) Homozygous sickle cell (SS) disease Is this a current diagnosis for this admission?: Yes (4) Sickle cell anemia Qualifiers: Sickle-cell associated disorders: with unspecified crisis Qualified Code(s) : D57.00 - Hb-SS disease with crisis, unspecified; D57.0 - Hb-SS disease with crisis Is this a current diagnosis for this admission?: Yes
[2017-04-21] MEDS: CETIRIZINE 10 MG TABLET PO SCH (22:50)
[2017-04-22] MEDS: HYDROMORPHONE HCL INJ/PF 2 MG/ML AMPULE IV PRN ×5 (03:01→19:51)
[2017-04-22] MEDS: ONDANSETRON HCL INJ/PF 4 MG/2 ML SDV IV PRN (03:01)
[2017-04-22] MEDS: LANSOPRAZOLE 30 MG TAB.RAP.DR PO SCH (06:08)
--- NOTE | 2017-04-22 08:32 | PDOC PROGRESS REPORT ---
Subjective Progress Note for:: 04/22/17 Subjective:: Patient reported improvement in her crisis pain level. She denied chest pain or difficulty with breathing. No fever or chills. Physical Exam Vital Signs: Temp Pulse Resp BP Pulse Ox 98.1 F 76 16 114/63 100 04/22/17 08:00 04/22/17 08:00 04/22/17 08:00 04/22/17 08:00 04/22/17 08:00 Intake & Output 04/21/17 04/22/17 04/23/17 06:59 06:59 06:59 Intake Total 5040 5360 Balance 5040 5360 Physical Exam: General appearance: PRESENT: no acute distress. Head exam: PRESENT: atraumatic, normocephalic Eye exam: PRESENT: conjunctiva pink, EOMI, PERRLA. ABSENT: scleral icterus Mouth exam: PRESENT: moist Respiratory exam: PRESENT: clear to auscultation william Cardiovascular exam: PRESENT: RRR. ABSENT: diastolic murmur, rubs, systolic murmur Vascular exam: PRESENT: normal capillary refill. ABSENT: pallor GI/Abdominal exam: PRESENT: normal bowel sounds, soft. ABSENT: distended, guarding, mass, organomegaly, rebound, tenderness Musculoskeletal exam: PRESENT: improvement in tenderness - multiple joints due to SCD pain crisis; Right arm comparative swelling is less Neurological exam: PRESENT: alert, awake, oriented to person, oriented to place , oriented to time, oriented to situation, CN II-XII grossly intact. ABSENT: motor sensory deficit Psychiatric exam: PRESENT: appropriate affect, normal mood. ABSENT: homicidal ideation, suicidal ideation Results Laboratory Results: 04/17/17 09:10 04/17/17 09:10 Impressions: Chest X-Ray 04/18/17 00:00 IMPRESSION: Catheter placement as described. No acute cardiopulmonary disease. Assessment & Plan - Diagnosis (1) Sickle-cell disease with pain Is this a current diagnosis for this admission?: Yes Plan: Improving. I will restart her home pain management medication regimen and decrease Dilaudid to 2 mg [id number] for breakthrough pain management. Maintain on IV fluid support. (2) Anemia Qualifiers: Anemia type: other cause Other causes of anemia: other cause, not classified Qualified Code(s): D64.89 - Other specified anemias Is this a current diagnosis for this admission?: Yes (3) Homozygous sickle cell (SS) disease Is this a current diagnosis for this admission?: Yes (4) Chronic prescription opiate use Is this a current diagnosis for this admission?: Yes (5) Deep venous thrombosis of right upper limb Qualifiers: Affected thrombotic vein of extremity: unspecified vein of extremity Chronicity: acute Qualified Code(s): I82.621 - Acute embolism and thrombosis of deep veins of right upper extremity Is this a current diagnosis for this admission?: Yes Plan: Continue Xarelto therapy. (6) Hypertension Qualifiers: Hypertension type: essential hypertension Qualified Code(s): I10 - Essential (primary) hypertension Is this a current diagnosis for this admission?: Yes Plan: Maintain on current anti hypertensive medication management. (7) Major depression Qualifiers: Major depression recurrence: recurrent Major depression episode severity: moderate Is this a current diagnosis for this admission?: Yes - Time Time Spent with patient: 25-34 minutes Medications reviewed and adjusted accordingly: Yes Anticipated discharge: Home Within: within 24 hours - Inpatient Certification Based on my medical assessment, after consideration of the patient's comorbidities, presenting symptoms, or acuity I expect that the services needed warrant INPATIENT care.: Yes I certify that my determination is in accordance with my understanding of Medicare's requirements for reasonable and necessary INPATIENT services [42 CFR 412.3e].: Yes Medical Necessity: Need Close Monitoring Due to Risk of Patient Decompensation, Need For IV Fluids, Need For Continuous Telemetry Monitoring, Need for Pain Control, Risk of Complication if Not Cared For in Hospital Post Hospital Care: D/C Case Supervisor Documentation - Plan Summary Plan Summary: See attending physician orders.
--- NOTE | 2017-04-22 09:43 | PDOC PROGRESS REPORT ---
Subjective Progress Note for:: 04/22/17 Subjective:: No acute events today, feeling better Physical Exam Vital Signs: Temp Pulse Resp BP Pulse Ox 98.1 F 76 16 114/63 100 04/22/17 08:00 04/22/17 08:00 04/22/17 08:00 04/22/17 08:00 04/22/17 08:00 Intake & Output 04/21/17 04/22/17 04/23/17 06:59 06:59 06:59 Intake Total 5040 5360 Balance 5040 5360 General appearance: PRESENT: no acute distress, well-developed, well-nourished Head exam: PRESENT: atraumatic, normocephalic Eye exam: PRESENT: conjunctiva pink, EOMI, PERRLA. ABSENT: scleral icterus Ear exam: PRESENT: normal external ear exam Mouth exam: PRESENT: moist, tongue midline Neck exam: ABSENT: carotid bruit, JVD, lymphadenopathy, thyromegaly Respiratory exam: PRESENT: clear to auscultation william. ABSENT: rales, rhonchi, wheezes Cardiovascular exam: PRESENT: RRR. ABSENT: diastolic murmur, rubs, systolic murmur Pulses: PRESENT: normal dorsalis pedis pul Vascular exam: PRESENT: normal capillary refill GI/Abdominal exam: PRESENT: normal bowel sounds, soft. ABSENT: distended, guarding, mass, organolmegaly, rebound, tenderness Rectal exam: PRESENT: deferred Extremities exam: PRESENT: full ROM. ABSENT: calf tenderness, clubbing, pedal edema Neurological exam: PRESENT: alert, awake, oriented to person, oriented to place , oriented to time, oriented to situation, CN II-XII grossly intact. ABSENT: motor sensory deficit Psychiatric exam: PRESENT: appropriate affect, normal mood. ABSENT: homicidal ideation, suicidal ideation Skin exam: PRESENT: dry, intact, warm. ABSENT: cyanosis, rash Results Laboratory Results: 04/17/17 09:10 04/17/17 09:10 Impressions: Chest X-Ray 04/18/17 00:00 IMPRESSION: Catheter placement as described. No acute cardiopulmonary disease. Assessment & Plan - Diagnosis (1) Sickle cell pain crisis Is this a current diagnosis for this admission?: Yes Plan: Improved, 24 more hours needed of IV pain control, possible d/c tomorrow based on pain status (2) Sickle cell anemia Qualifiers: Sickle-cell associated disorders: with unspecified crisis Qualified Code(s) : D57.00 - Hb-SS disease with crisis, unspecified; D57.0 - Hb-SS disease with crisis Is this a current diagnosis for this admission?: Yes Plan: Hb stable post tx
[2017-04-22] MEDS: AMITRIPTYLINE HCL 25 MG TABLET PO SCH (09:55)
[2017-04-22] MEDS: AMLODIPINE BESYLATE 5 MG TABLET PO SCH (09:55)
[2017-04-22] MEDS: RIVAROXABAN 10 MG TABLET PO SCH (09:55)
[2017-04-22] MEDS: FOLIC ACID 1 MG TABLET PO SCH (09:55)
[2017-04-22] MEDS: HYDROXYUREA 500 MG CAPSULE PO SCH (09:55)
[2017-04-22] MEDS: OXYCODONE HCL IR 5 MG TABLET PO PRN ×2 (13:25→23:40)
[2017-04-22] MEDS: NORMAL SALINE 1000 ML 1,000 ML IV PRN (16:16)
[2017-04-22] MEDS: AMITRIPTYLINE HCL 50 MG TABLET PO SCH (17:27)
[2017-04-22] MEDS: CETIRIZINE 10 MG TABLET PO SCH (22:14)
[2017-04-23] MEDS: HYDROMORPHONE HCL INJ/PF 2 MG/ML AMPULE IV PRN ×4 (04:26→21:05)
[2017-04-23] MEDS: NORMAL SALINE 1000 ML 1,000 ML IV PRN ×2 (04:26→10:58)
[2017-04-23] MEDS ORDERED: LANSOPRAZOLE 30 MG TAB.RAP.DR PO SCH (06:00)
--- NOTE | 2017-04-23 07:50 | PDOC PROGRESS REPORT ---
Subjective Progress Note for:: 04/23/17 Subjective:: Pt doing better today, feels ready to d/c home Physical Exam Vital Signs: Temp Pulse Resp BP Pulse Ox 98.7 F 81 16 127/58 H 100 04/22/17 19:49 04/23/17 02:00 04/22/17 19:49 04/22/17 19:49 04/22/17 19:49 Intake & Output 04/22/17 04/23/17 04/24/17 06:59 06:59 06:59 Intake Total 5360 4010 Balance 5360 4010 General appearance: PRESENT: no acute distress, well-developed, well-nourished Head exam: PRESENT: atraumatic, normocephalic Eye exam: PRESENT: conjunctiva pink, EOMI, PERRLA. ABSENT: scleral icterus Ear exam: PRESENT: normal external ear exam Mouth exam: PRESENT: moist, tongue midline Neck exam: ABSENT: carotid bruit, JVD, lymphadenopathy, thyromegaly Respiratory exam: PRESENT: clear to auscultation william. ABSENT: rales, rhonchi, wheezes Cardiovascular exam: PRESENT: RRR. ABSENT: diastolic murmur, rubs, systolic murmur Pulses: PRESENT: normal dorsalis pedis pul Vascular exam: PRESENT: normal capillary refill GI/Abdominal exam: PRESENT: normal bowel sounds, soft. ABSENT: distended, guarding, mass, organolmegaly, rebound, tenderness Rectal exam: PRESENT: deferred Extremities exam: PRESENT: full ROM. ABSENT: calf tenderness, clubbing, pedal edema Neurological exam: PRESENT: alert, awake, oriented to person, oriented to place , oriented to time, oriented to situation, CN II-XII grossly intact. ABSENT: motor sensory deficit Psychiatric exam: PRESENT: appropriate affect, normal mood. ABSENT: homicidal ideation, suicidal ideation Skin exam: PRESENT: dry, intact, warm. ABSENT: cyanosis, rash Results Laboratory Results: 04/17/17 09:10 04/17/17 09:10 Impressions: Chest X-Ray 04/18/17 00:00 IMPRESSION: Catheter placement as described. No acute cardiopulmonary disease. Assessment & Plan - Diagnosis (1) Sickle cell pain crisis Is this a current diagnosis for this admission?: Yes Plan: Improved, no further need for IV pain control, will give short rx for dilaudid to take at home, will see us as oupt for f/u (2) Sickle cell anemia Qualifiers: Sickle-cell associated disorders: with unspecified crisis Qualified Code(s) : D57.00 - Hb-SS disease with crisis, unspecified; D57.0 - Hb-SS disease with crisis Is this a current diagnosis for this admission?: Yes Plan: Hb stable post tx, will f/u as oupt - Time Time Spent with patient: 25-34 minutes Critical Time spent with patient: 25-34 minutes Anticipated discharge: Home
[2017-04-23] MEDS: OXYCODONE HCL IR 5 MG TABLET PO PRN ×2 (08:48→17:06)
[2017-04-23] MEDS: AMLODIPINE BESYLATE 5 MG TABLET PO SCH (10:56)
[2017-04-23] MEDS: RIVAROXABAN 10 MG TABLET PO SCH (10:56)
[2017-04-23] MEDS: AMITRIPTYLINE HCL 25 MG TABLET PO SCH (10:57)
[2017-04-23] MEDS: HYDROXYUREA 500 MG CAPSULE PO SCH (10:57)
[2017-04-23] MEDS: FOLIC ACID 1 MG TABLET PO SCH (10:57)
[2017-04-23] MEDS: AMITRIPTYLINE HCL 50 MG TABLET PO SCH (17:06)
--- NOTE | 2017-04-23 20:09 | PDOC DISCHARGE SUMMARY ---
General - Admit/Disc Date/PCP Admission Date/Primary Care Provider: 04/16/17 21:35 ROXANA ARCHULETA Discharge Date: 04/23/17 - Discharge Diagnosis (1) Sickle-cell disease with pain Is this a current diagnosis for this admission?: Yes (2) Anemia Is this a current diagnosis for this admission?: Yes (3) Homozygous sickle cell (SS) disease Is this a current diagnosis for this admission?: Yes (4) Chronic prescription opiate use Is this a current diagnosis for this admission?: Yes (5) Deep venous thrombosis of right upper limb Is this a current diagnosis for this admission?: Yes (6) Hypertension Is this a current diagnosis for this admission?: Yes (7) Major depression Is this a current diagnosis for this admission?: Yes - Additional Information Resuscitation Status: Full Code Home Medications: Amitriptyline HCl [Elavil 25 mg Tablet] 25 mg PO DAILY 04/16/17 Amitriptyline HCl [Elavil 25 mg Tablet] 50 mg PO QPM 04/16/17 Amlodipine Besylate [Norvasc 5 mg Tablet] 5 mg PO DAILY 04/16/17 Cetirizine HCl [Zyrtec 10 mg Tablet] 10 mg PO QHS 04/16/17 Cyclobenzaprine HCl [Flexeril 5 mg Tablet] 5 mg PO Q12HP PRN 04/16/17 Folic Acid [Folvite 1 mg Tablet] 1 mg PO DAILY 04/16/17 Hydroxyurea [Hydrea 500 mg Capsule] 1,500 mg PO SUTUTHSA@1000 04/16/17 Hydroxyurea [Hydrea 500 mg Capsule] 2,000 mg PO MOWEFR@1000 04/16/17 Oxycodone HCl 15 mg PO Q4HP PRN 04/16/17 Promethazine HCl [Phenergan 25 mg Tablet] 25 mg PO Q6HP PRN 04/16/17 History of Present Illness History of Present Illness: PRANAV JOINER is a 26 year old female known to my practice who was directed to the ED by her glazing superintendent, Dr Cornelius, following recent hemoglobin during office visit found to be 6.5gm/dL. Also, patient was complaining about generalized body aches and pain that is not responding to her home pain medication oral management. Patient reported worsen ongoing multiple joints aches and pain. No fever or chills. She recently had dental procedure done and diagnosed with right arm DVT. She is currently on Xarelto for DVT management. She denied any associated chest pain, shortness of breath, fever chills, nausea , vomiting or abdominal pain. She denied any symptoms to suggest ongoing infection. Morbidities include hypertension, GERD, Asthma, Migraine Headache, and Depression. Hospital Course Hospital Course: She was admitted as case of SCD with hemolytic and painful crises. She was transfused 2 units PRBC during this hospitalization and maintained on IV Dilaudid with IV Normal saline infusion for hydration. Her anemia did improve as well s pain level with eventual tapering in her Dilaudid levle and restart of her home medication. She has been tolerant of her home pain medication for pain management so far today and agreeable to discharge home. She will follow up with Dr. Cornelius, glazing superintendent, and me as instructed upon discharge. Physical Exam Vital Signs: Temp Pulse Resp BP Pulse Ox 98.2 F 77 17 116/62 100 04/23/17 15:28 04/23/17 15:28 04/23/17 15:28 04/23/17 15:28 04/23/17 15:28 Intake & Output 04/22/17 04/23/17 04/24/17 06:59 06:59 06:59 Intake Total 5360 4010 1407 Balance 5360 4010 1407 Physical Exam: General appearance: PRESENT: no acute distress. Head exam: PRESENT: atraumatic, normocephalic Eye exam: PRESENT: conjunctiva pink, EOMI, PERRLA. ABSENT: scleral icterus Mouth exam: PRESENT: moist Respiratory exam: PRESENT: clear to auscultation william Cardiovascular exam: PRESENT: RRR. ABSENT: diastolic murmur, rubs, systolic murmur Vascular exam: PRESENT: normal capillary refill. ABSENT: pallor GI/Abdominal exam: PRESENT: normal bowel sounds, soft. ABSENT: distended, guarding, mass, organomegaly, rebound, tenderness Musculoskeletal exam: PRESENT: improved tenderness - multiple joints due to SCD pain crisis; Right arm comparative swelling is less Neurological exam: PRESENT: alert, awake, oriented to person, oriented to place , oriented to time, oriented to situation, CN II-XII grossly intact. ABSENT: motor sensory deficit Psychiatric exam: PRESENT: appropriate affect, normal mood. ABSENT: homicidal ideation, suicidal ideation Results Laboratory Results: 10/11/17 09:10 04/17/17 09:10 Impressions: Chest X-Ray 04/18/17 00:00 IMPRESSION: Catheter placement as described. No acute cardiopulmonary disease. Qualifiers PATEINT BEING DISCHARGED WITH ANY OF THE FOLLOWING DIAGNOSIS?: No Plan Discharge Plan: D/C home today. Follow up with Dr Cornelius and myself as instructed upon discharge. Time Spent: Less than 30 Minutes
[2017-04-23 20:32] VITALS: BP 114/63
== END 2017-04-23 21:35 | disposition home or self-care (01) | DRG 812 ==
LOC: ER 12:06 → UNDOADMIN 16:56 → EH 16:56 → 5 20:25 → EH 21:35
PROVIDERS: ADMIT Internal Medicine Geriatric Medicine; ATTEND Internal Medicine Geriatric Medicine
PROC: 30233N1 Transfusion of Nonautologous Red Blood Cells into Peripheral Vein, Percutaneous Approach (ICD-10-PCS; principal; 2017-04-17)
PROC: 02HV33Z Insertion of Infusion Device into Superior Vena Cava, Percutaneous Approach (ICD-10-PCS; 2017-04-18)
PROC: B548ZZA Ultrasonography of Superior Vena Cava, Guidance (ICD-10-PCS; 2017-04-18)
DX: D57.00 Hb-SS disease with crisis, unspecified (principal); I82.621 Acute embolism and thrombosis of deep veins of right upper extremity; I10 Essential (primary) hypertension; K21.9 Gastro-esophageal reflux disease without esophagitis; J45.909 Unspecified asthma, uncomplicated; F32.9 Major depressive disorder, single episode, unspecified; Z79.01 Long term (current) use of anticoagulants; Z79.891 Long term (current) use of opiate analgesic; Z86.14 Personal history of Methicillin resistant Staphylococcus aureus infection
CPT/HCPCS: 36415; 36430; 71010; 71020; 80053; 81001; 81025; 85025; 85045; 85610; 85730; 86850; 86900; 86901; 86902; 86920; 96361; 96374; 99285; C1751; J1170; J1200; J1642; J2405; J3490; J7030; P9016

== ENCOUNTER 2017-06-29 18:51 | Emergency (ER) | payer MEDICAID ==
[2017-06-29] MEDS ORDERED: ONDANSETRON HCL INJ/PF 4 MG/2 ML SDV IV ONE (19:38)
--- NOTE | 2017-06-29 19:42 | ER Document Report ---
ED Medical Screen (RME) - General Chief Complaint: Headache Stated Complaint: NAUSEA,ABDOMINAL PAIN Time Seen by Provider: 06/29/17 19:35 Notes: Patient with a history of sickle cell disease, under the care of local [employer] teacher Dr. Cornelius. Patient says that she is currently having her menstrual cycle and for the past 2 days she has been feeling lightheaded and dizzy and nauseated and pain all over. She is on folate and hydroxyurea and amitriptyline and oxycodone 15 mg every 4-6 hours at home. Also has a history of hypertension. TRAVEL OUTSIDE OF THE [place] IN LAST 30 DAYS: No - Related Data Allergies/Adverse Reactions: ceftriaxone sodium [From Rocephin] Allergy (Verified 06/29/17 18:52) Cephalosporins Allergy (Verified 06/29/17 18:52) milk [Milk] Allergy (Verified 06/29/17 18:52) Shellfish * [Shellfish] Allergy (Verified 06/29/17 18:52) wheat [Wheat] Allergy (Verified 06/29/17 18:52) Past Medical History - Social History Chew tobacco use (# tins/day): No Frequency of alcohol use: Occasional Drug Abuse: None Family history: None - Past Medical History Cardiac Medical History: Reports: Hx Hypertension, Hx Heart Murmur Denies: Hx Coronary Artery Disease, Hx Heart Attack Pulmonary Medical History: Reports: Hx Asthma, Hx Pneumonia Denies: Hx Bronchitis, Hx COPD, Hx Tuberculosis Neurological Medical History: Reports: Hx Migraine, Hx Seizures - A CHILD. Denies: Hx Cerebrovascular Accident Endocrine Medical History: Denies: Hx Diabetes Mellitus Type 2, Hx Hyperthyroidism, Hx Hypothyroidism Renal/ Medical History: Denies: Hx Peritoneal Dialysis GI Medical History: Reports: Hx Gastroesophageal Reflux Disease Musculoskeltal Medical History: Denies Hx Arthritis, Denies Hx Fibromyalgia Skin Medical History: Reports Hx MRSA Psychiatric Medical History: Reports: Hx Depression Past Surgical History: Reports: Hx Adenoidectomy, Hx Cholecystectomy, Hx Oral Surgery - growth removed from under tongue, Hx Tonsillectomy, Other - Port placement 2 and removal for infection, multiple PICC lines, central l. Denies : Hx Hysterectomy, Hx Kidney (Renal Surgery), Hx Pacemaker - Immunizations Hx Diphtheria, Pertussis, Tetanus Vaccination: Yes History of Influenza Vaccine for 04/2017 - 09/2017 Season: Yes Influenza Administration Date for 04/2017 - 09/2017 Season: 03/22/17 Physical Exam - Vital signs Vitals: Temp Pulse Resp BP Pulse Ox 98.8 F 77 16 114/65 100 06/29/17 18:57 06/29/17 18:57 06/29/17 18:57 06/29/17 18:57 06/29/17 18:57 Course - Vital Signs Vital signs: Temp Pulse Resp BP Pulse Ox 98.8 F 77 16 114/65 100 06/29/17 18:57 06/29/17 18:57 06/29/17 18:57 06/29/17 18:57 06/29/17 18:57
[2017-06-29] MEDS: RINGERS SOLUTION,LACTATED 1,000 ML IV PRN ×2 (20:16→20:17)
[2017-06-29 20:36] LABS: HEMATOCRIT 29.4 % (36.0-47.0); HEMOGLOBIN 10.2 g/dL (12.0-15.5); HGB HCT DIFFERENCE 1.2; MEAN CORPUSCULAR HGB CONC 34.6 g/dL (32.0-36.0); MEAN CORPUSCULAR VOLUME 113 fl (80-97); RED BLOOD COUNT 2.61 10^6/uL (3.72-5.28); RED CELL DISTRIBUTION WIDTH 18.2 % (11.5-14.0)
[2017-06-29 20:53] LABS: APPEARANCE,URINE CLEAR; BILIRUBIN,URINE NEGATIVE (NEGATIVE); GLUCOSE, URINE NEGATIVE (NEGATIVE); KETONES,URINE NEGATIVE (NEGATIVE); LEUKOCYTE ESTERASE,URINE NEGATIVE (NEGATIVE); NITRITE,URINE NEGATIVE (NEGATIVE); PROTEIN,URINE NEGATIVE (NEGATIVE); URINE SPECIFIC GRAVITY 1.005; UROBILINOGEN,URINE NEGATIVE mg/dL (<2.0)
[2017-06-29 20:58] LABS: ALANINE AMINOTRANSFERASE 28 U/L (9-52); ALBUMIN 4.3 g/dL (3.5-5.0); ALKALINE PHOSPHATASE 72 U/L (38-126); ANION GAP 10 (5-19); ASPARTATE AMINO TRANSFERASE 34 U/L (14-36); BILIRUBIN,DIRECT 0.3 mg/dL (0.0-0.4); BILIRUBIN,TOTAL 0.8 mg/dL (0.2-1.3); BLOOD UREA NITROGEN 4 mg/dL (7-20); CALCIUM 9.2 mg/dL (8.4-10.2); CARBON DIOXIDE 26 mmol/L (22-30); CHLORIDE 107 mmol/L (98-107); CREATININE RESULT 0.54 mg/dL (0.52-1.25); GLUCOSE 79 mg/dL (75-110); POTASSIUM 3.3 mmol/L (3.6-5.0); SODIUM 143.2 mmol/L (137-145); TOTAL PROTEIN 7.2 g/dL (6.3-8.2)
--- NOTE | 2017-06-29 21:05 | ER Document Report ---
ED General - General Chief Complaint: Headache Stated Complaint: NAUSEA,ABDOMINAL PAIN Time Seen by Provider: 06/29/17 19:35 Notes: The patient is a 26-year-old female, past medical history sickle cell disease, hypertension, presents with lower abdominal cramping and nausea. She is currently on her period and is concerned because she is not drinking much over the past 2 days. She said that she has gone into sickle cell crisis during prior menstrual periods due to not drinking and she wants to make sure she is not going to crisis. She is taking her folate, hydroxyurea, amitriptyline and oxycodone 15 mg every 4-6 hours at home without much relief of her pain. She denies vomiting, vaginal discharge, dysuria, flank pain, fevers, headache, focal weakness, numbness or syncope. TRAVEL OUTSIDE OF THE [place] IN LAST 30 DAYS: No - Related Data Allergies/Adverse Reactions: ceftriaxone sodium [From Rocephin] Allergy (Verified 06/29/17 18:52) Cephalosporins Allergy (Verified 06/29/17 18:52) milk [Milk] Allergy (Verified 06/29/17 18:52) Shellfish * [Shellfish] Allergy (Verified 06/29/17 18:52) wheat [Wheat] Allergy (Verified 06/29/17 18:52) Past Medical History - General Information source: Patient - Social History Smoking Status: Never Smoker Chew tobacco use (# tins/day): No Frequency of alcohol use: Occasional Drug Abuse: None Family History: Reviewed & Not Pertinent, DM, Malignancy - Brother with Hodgkin' s lymphoma. Maternal grandfather with lung cancer., Other - sickle trait Patient has suicidal ideation: No Patient has homicidal ideation: No - Past Medical History Cardiac Medical History: Reports: Hx Hypertension, Hx Heart Murmur Denies: Hx Coronary Artery Disease, Hx Heart Attack Pulmonary Medical History: Reports: Hx Asthma, Hx Pneumonia Denies: Hx Bronchitis, Hx COPD, Hx Tuberculosis Neurological Medical History: Reports: Hx Migraine, Hx Seizures - A CHILD. Denies: Hx Cerebrovascular Accident Endocrine Medical History: Denies: Hx Diabetes Mellitus Type 2, Hx Hyperthyroidism, Hx Hypothyroidism Renal/ Medical History: Denies: Hx Peritoneal Dialysis GI Medical History: Reports: Hx Gastroesophageal Reflux Disease Musculoskeltal Medical History: Denies Hx Arthritis, Denies Hx Fibromyalgia Skin Medical History: Reports Hx MRSA Psychiatric Medical History: Reports: Hx Depression Past Surgical History: Reports: Hx Adenoidectomy, Hx Cholecystectomy, Hx Oral Surgery - growth removed from under tongue, Hx Tonsillectomy, Other - Port placement 2 and removal for infection, multiple PICC lines, central l. Denies : Hx Hysterectomy, Hx Kidney (Renal Surgery), Hx Pacemaker - Immunizations Hx Diphtheria, Pertussis, Tetanus Vaccination: Yes Hx Pneumococcal Vaccination: 07/08/11 Review of Systems - Review of Systems Notes: REVIEW OF SYSTEMS: CONSTITUTIONAL: -fevers, -chills EENT: -eye pain, -difficulty swallowing, -nasal congestion CARDIOVASCULAR:-chest pain, -syncope. RESPIRATORY: -cough, -SOB GASTROINTESTINAL: +lower abdominal cramping, +nausea, -vomiting, -diarrhea GENITOURINARY: -dysuria, -hematuria MUSCULOSKELETAL: -back pain, -neck pain SKIN: -rash or skin lesions. HEMATOLOGIC: -easy bruising or bleeding. LYMPHATIC: -swollen, enlarged glands. NEUROLOGICAL: -altered mental status or loss of consciousness, -headache, - neurologic symptoms PSYCHIATRIC: -anxiety, -depression. ALL OTHER SYSTEMS REVIEWED AND NEGATIVE. Physical Exam - Vital signs Vitals: Temp Pulse Resp BP Pulse Ox 98.8 F 77 16 114/65 100 06/29/17 18:57 06/29/17 18:57 06/29/17 18:57 06/29/17 18:57 06/29/17 18:57 - Notes Notes: PHYSICAL EXAMINATION: GENERAL: Well-appearing, well-nourished and in no acute distress. HEAD: Atraumatic, normocephalic. EYES: Pupils equal round and reactive to light, extraocular movements intact, sclera anicteric, conjunctiva are normal. ENT: nares patent, oropharynx clear without exudates. Moist mucous membranes. NECK: Normal range of motion, supple without lymphadenopathy LUNGS: Breath sounds clear to auscultation bilaterally and equal. No wheezes rales or rhonchi. HEART: Regular rate and rhythm without murmurs ABDOMEN: Soft, nontender, normoactive bowel sounds. No guarding, no rebound. No masses appreciated. EXTREMITIES: Normal range of motion, no pitting or edema. No cyanosis. NEUROLOGICAL: Cranial nerves grossly intact. Normal speech, normal gait. Normal sensory and motor exams. PSYCH: Normal mood, normal affect. SKIN: Warm, Dry, normal turgor, no rashes or lesions noted. Course - Re-evaluation Re-evalutation: Patient appears well and her vital signs are normal. Provided her with IV fluids, anti-inflammatories and antiemetics and she feels much better. Blood work is unremarkable, other than a slight hypokalemia, which was corrected in the ER. She will begin anti-inflammatories for metorrhagia and Zofran for antiemetics with follow-up at her compositor apprentice. - Vital Signs Vital signs: Temp Pulse Resp BP Pulse Ox 98.8 F 77 16 114/65 100 06/29/17 18:57 06/29/17 18:57 06/29/17 18:57 06/29/17 18:57 06/29/17 18:57 - Laboratory Result Diagrams: 06/29/17 20:10 06/29/17 20:10 Laboratory results interpreted by me: 06/29/17 06/29/17 06/29/17 20:10 20:10 20:10 RBC 2.61 L Hgb 10.2 L Hct 29.4 L MCV 113 H MCH 39.0 H RDW 18.2 H Seg Neuts % (Manual) 39 L Lymphocytes % (Manual) 48 H Retic Count (auto) 5.10 H Absolute Retic 0.133 H Potassium 3.3 L BUN 4 L Urine Blood MODERATE H Discharge - Discharge Clinical Impression: Abdominal cramping Nausea & vomiting Qualifiers: Vomiting type: unspecified Vomiting Intractability: unspecified Qualified Code( s): R11.2 - Nausea with vomiting, unspecified Condition: Stable Disposition: HOME, SELF-CARE Additional Instructions: Take Naprosyn 500 mg twice a day to help with your abdominal cramping. Add Zofran to help with any nausea or vomiting. Return to ER if you have any worsening symptoms and follow-up with your compositor apprentice. VOMITING: Vomiting (or nausea without vomiting) can be caused by many other different problems. It can mean that something's wrong with the stomach, such as ulcers or inflammation or the intestinal tract, such as appendicitis. But it can also be a symptom of a problem that has nothing to do with the stomach or intestines. Vomiting is common with severe headaches, earaches, tonsillitis, and kidney infections, etc. We see it with pneumonia or heart attacks. Drugs can cause nausea and vomiting. Many abdominal problems cause vomiting; for example, gallstones, kidney stones, pancreatitis, and intestinal obstruction ( blocked bowels). In most cases, curing the vomiting depends on fixing the problem that caused it. For temporary relief, we may use an anti-nausea medicine. For home use, we can prescribe suppositories, chewable pills, pills that dissolve in the mouth, or liquid anti-nausea drugs. If the vomiting seems to be caused by a problem in the stomach, acid-suppressing drugs may be prescribed as well. It's important to avoid dehydration. Sip small amounts of clear liquids ( soft drinks, tea, broth, etc) . Try to take fluids frequently even if you are vomiting to prevent dehydration. Take increasing amounts of fluid and when liquids are being consumed successfully, advance to small amounts of bland food (toast, soups, mashed potatoes, etc.) until you are able to resume a regular diet. Avoid aspirin, tobacco, and alcohol. If the vomiting worsens, if the problem that's making you vomit worsens, or if there's evidence of bleeding in the stomach (such as black, tarry stool, or bloody or black vomit), you should return immediately. Also, return if abdominal pain worsens or becomes localized to one area or you develop high fever. Call your doctor if you aren't improved in 24 hours. INTRAVENOUS (I V) FLUIDS: As part of your care today, you received intravenous (IV) fluids. IV fluids are administered to patients who are dehydrated or to those who have certain chemical (electrolyte) abnormalities that need correcting. ANTINAUSEA MEDICATION: You have been given a medication to suppress nausea and vomiting. This type of medication can be given as a shot, pill, or suppository. It will usually last for many hours. Pills and shots usually last six to eight hours. For the typical illness, only one or two doses of the medication may be necessary. Mild lightheadedness may occur. This type of medicine can cause drowsiness. Do not drive or operate dangerous machinery while under its influence. Do not mix with alcohol. See your doctor at once if you have muscle spasms or tightness, or uncontrollable motions (particularly of the neck, mouth, or jaw). Persistent vomiting or severe lightheadedness should also be evaluated by the physician. FOLLOW-UP CARE: If you have been referred to a physician for follow-up care, call the physician s office for an appointment as you were instructed or within the next two days. If you experience worsening or a significant change in your symptoms, notify the physician immediately or return to the Emergency Department at any time for re-evaluation. Prescriptions: Naproxen [Naprosyn 250 mg Tablet] 500 mg PO Q12H PRN #30 tablet PRN Reason: Ondansetron [Zofran Odt 4 mg Tablet] 1 - 2 tab PO Q4H PRN #15 tab.rapdis PRN Reason: For Nausea/Vomiting Referrals: BRUNA MENJIVAR MD [ACTIVE STAFF] - Follow up as needed
[2017-06-29] MEDS ORDERED: NORMAL SALINE 1000 ML 1,000 ML IV PRN (21:20)
[2017-06-29] MEDS ORDERED: KETOROLAC TROMETHAMINE INJ/PF 30 MG/1 ML SDV IV ONE (21:20)
[2017-06-29 21:25] LABS: BASOPHILS % (MANUAL) 2 % (0-2); EOSINOPHILS % (MANUAL) 0 % (0-6); LYMPHOCYTES % (MANUAL) 48 % (13-45); TOTAL CELLS COUNTED 100
[2017-06-29 21:29] LABS: ANISOCYTOSIS 2+; POIKILOCYTOSIS 1+
[2017-06-29 21:30] LABS: TARGET CELLS 1+; TOXIC VACUOLATION PRESENT
[2017-06-29 21:39] LABS: STAIN REACTIVITY CHECK ACCEPTABLE
[2017-06-29] MEDS ORDERED: POTASSIUM CHLORIDE 10 MEQ TABLET.SA PO ONE (21:56)
[2017-06-30 01:18] VITALS: BP 115/60
== END 2017-06-30 01:19 | disposition home or self-care (01) ==
LOC: ER 18:51
DX: R10.30 Lower abdominal pain, unspecified (principal); R11.2 Nausea with vomiting, unspecified; N92.1 Excessive and frequent menstruation with irregular cycle; I10 Essential (primary) hypertension; E87.6 Hypokalemia; D57.1 Sickle-cell disease without crisis; J45.909 Unspecified asthma, uncomplicated; Z79.899 Other long term (current) drug therapy; Z79.891 Long term (current) use of opiate analgesic; Z88.1 Allergy status to other antibiotic agents; Z91.011 Allergy to milk products; Z91.013 Allergy to seafood; Z91.018 Allergy to other foods; Z86.14 Personal history of Methicillin resistant Staphylococcus aureus infection; Z87.19 Personal history of other diseases of the digestive system; Z90.49 Acquired absence of other specified parts of digestive tract
CPT/HCPCS: 99284; 96361; 96374; 96375; 36415; 84703; 85025; 85045; 80053; 81001; J1885; J2405; J7120

== ENCOUNTER 2017-07-02 14:22 | Outpatient (CLI) | payer MEDICAID ==
[2017-07-02] MEDS ORDERED: HYDROMORPHONE HCL INJ/PF 2 MG/ML AMPULE INJ PRN (15:37)
[2017-07-02] MEDS ORDERED: NORMAL SALINE 1000 ML 1,000 ML IV ONE (16:00)
[2017-07-02 17:10] VITALS: BP 118/64
== END 2017-07-02 17:25 | disposition home or self-care (01) ==
LOC: II 14:22 → 5TH 14:30 → II 17:25
PROVIDERS: ATTEND Internal Medicine
PROC: 3E033NZ Introduction of Analgesics, Hypnotics, Sedatives into Peripheral Vein, Percutaneous Approach (ICD-10-PCS; principal; 2017-07-02)
PROC: 3E0337Z Introduction of Electrolytic and Water Balance Substance into Peripheral Vein, Percutaneous Approach (ICD-10-PCS; 2017-07-02)
DX: D57.00 Hb-SS disease with crisis, unspecified (principal); E86.0 Dehydration; R52 Pain, unspecified
CPT/HCPCS: 96375; 96360; J1170; 96361; 96374

== ENCOUNTER 2017-07-03 13:57 | Outpatient (CLI) | payer MEDICAID ==
[2017-07-03] MEDS ORDERED: NORMAL SALINE 1000 ML 1,000 ML IV PRN (14:05)
[2017-07-03] MEDS ORDERED: HYDROMORPHONE HCL INJ/PF 2 MG/ML AMPULE INJ PRN (14:08)
[2017-07-03 14:17] VITALS: BP 112/62
== END 2017-07-03 16:31 | disposition home or self-care (01) ==
LOC: II 13:57 → 5TH 14:00 → II 16:31
PROVIDERS: ATTEND Internal Medicine
PROC: 3E0337Z Introduction of Electrolytic and Water Balance Substance into Peripheral Vein, Percutaneous Approach (ICD-10-PCS; principal; 2017-07-03)
PROC: 3E033NZ Introduction of Analgesics, Hypnotics, Sedatives into Peripheral Vein, Percutaneous Approach (ICD-10-PCS; 2017-07-03)
DX: E86.0 Dehydration (principal); D57.00 Hb-SS disease with crisis, unspecified; R52 Pain, unspecified
CPT/HCPCS: 96375; 96360; J1170; 96361; 96374

== ENCOUNTER 2017-07-04 12:53 | Outpatient (CLI) | payer MEDICAID ==
[2017-07-04] MEDS ORDERED: HYDROMORPHONE HCL INJ/PF 2 MG/ML AMPULE ONE (13:21)
[2017-07-04] MEDS ORDERED: NORMAL SALINE 1000 ML 1,000 ML IV PRN (13:57)
[2017-07-04 15:25] VITALS: BP 118/78
== END 2017-07-04 15:25 | disposition home or self-care (01) ==
LOC: II 12:53 → 5TH 12:55 → II 15:25
PROVIDERS: ATTEND Internal Medicine
PROC: 3E0337Z Introduction of Electrolytic and Water Balance Substance into Peripheral Vein, Percutaneous Approach (ICD-10-PCS; principal; 2017-07-04)
PROC: 3E033NZ Introduction of Analgesics, Hypnotics, Sedatives into Peripheral Vein, Percutaneous Approach (ICD-10-PCS; 2017-07-04)
DX: D57.00 Hb-SS disease with crisis, unspecified (principal); R52 Pain, unspecified; E86.0 Dehydration
CPT/HCPCS: 96374; 96361; J1170; 96360

== ENCOUNTER 2017-09-01 11:20 | Emergency (ER) | payer MEDICAID ==
[2017-09-01] MEDS ORDERED: OXYCODONE HCL IR 5 MG TABLET PO ONE (11:33)
--- NOTE | 2017-09-01 11:39 | ER Document Report ---
ED Medical Screen (RME) - General Chief Complaint: Sickle Cell Crisis Stated Complaint: BACK PAIN, ABDOMINAL PAIN,NAUSEA Time Seen by Provider: 09/01/17 11:29 Information source: Patient Notes: 27 y.o female with a PMHx of sickle cell disease who presents to the ED with Abd /pelvic pain consistent with menstrual cycle and back pain. Patient is on day two of her menstrual cycle and states that she normally will see her general freight agent to get fluid and pain medication while she is on her cycle. She states that at home she takes 15mg Oxycodone but ran out two days ago. Patient also notes a cough and congestion for the past 5 days. She denies any chest pain , vomiting, diarrhea, dysuria, vaginal discharge or fever. TRAVEL OUTSIDE OF THE [place] IN LAST 30 DAYS: No - Related Data Allergies/Adverse Reactions: ceftriaxone sodium [From Rocephin] Allergy (Verified 09/01/17 11:23) Cephalosporins Allergy (Verified 09/01/17 11:23) milk [Milk] Allergy (Verified 09/01/17 11:23) Shellfish * [Shellfish] Allergy (Verified 09/01/17 11:23) wheat [Wheat] Allergy (Verified 09/01/17 11:23) Past Medical History - General Information source: Patient Last Menstrual Period: 08/30/17 - Social History Family history: None - Past Medical History Cardiac Medical History: Reports: Hx Hypertension, Hx Heart Murmur Pulmonary Medical History: Reports: Hx Asthma, Hx Pneumonia Neurological Medical History: Reports: Hx Migraine, Hx Seizures - A CHILD Renal/ Medical History: Denies: Hx Peritoneal Dialysis GI Medical History: Reports: Hx Gastroesophageal Reflux Disease Skin Medical History: Reports Hx MRSA Psychiatric Medical History: Reports: Hx Depression Past Surgical History: Reports: Hx Adenoidectomy, Hx Cholecystectomy, Hx Oral Surgery - growth removed from under tongue, Hx Tonsillectomy, Other - Port placement 2 and removal for infection, multiple PICC lines, central l - Immunizations Hx Diphtheria, Pertussis, Tetanus Vaccination: Yes History of Influenza Vaccine for 04/2017 - 09/2017 Season: Yes Influenza Administration Date for 04/2017 - 09/2017 Season: 03/22/17 Review of Systems - Review of Systems Constitutional: denies: Fever Gastrointestinal: See HPI, Abdominal pain - consistent with menstrual cycle. denies: Diarrhea, Vomiting Genitourinary: See HPI. denies: Dysuria Female Genitourinary: denies: Vaginal discharge Physical Exam - Vital signs Vitals: Temp Pulse Resp BP Pulse Ox 99.4 F 99 16 115/51 L 98 09/01/17 11:25 09/01/17 11:25 09/01/17 11:25 09/01/17 11:25 09/01/17 11:25 - General General appearance: Appears well, Alert In distress: None - Respiratory Respiratory status: No respiratory distress Chest status: Nontender Breath sounds: Normal Chest palpation: Normal - Cardiovascular Rhythm: Regular Heart sounds: Normal auscultation Murmur: No - Abdominal Inspection: Normal Distension: No distension - Neurological Neuro grossly intact: Yes Cognition: Normal Orientation: AAOx4 - Psychological Associated symptoms: Normal affect, Normal mood - Skin Skin Temperature: Warm Skin Moisture: Dry Skin Color: Normal Course - Vital Signs Vital signs: Temp Pulse Resp BP Pulse Ox 99.4 F 99 16 115/51 L 98 09/01/17 11:25 09/01/17 11:25 09/01/17 11:25 09/01/17 11:25 09/01/17 11:25 Scribe Documentation - Scribe Written by Scribe:: Kelechi Barton 09/01/17 1141 acting as scribe for :: Alex
[2017-09-01 12:04] LABS: APPEARANCE,URINE SLIGHTLY-CLOUDY; BILIRUBIN,URINE NEGATIVE (NEGATIVE); COLOR,URINE YELLOW; GLUCOSE, URINE NEGATIVE (NEGATIVE); KETONES,URINE NEGATIVE (NEGATIVE); LEUKOCYTE ESTERASE,URINE NEGATIVE (NEGATIVE); NITRITE,URINE NEGATIVE (NEGATIVE); PROTEIN,URINE NEGATIVE (NEGATIVE); URINE SPECIFIC GRAVITY 1.011
[2017-09-01] MEDS ORDERED: NORMAL SALINE 1000 ML 1,000 ML IV ONE (13:01)
[2017-09-01] MEDS ORDERED: NORMAL SALINE 1000 ML 1,000 ML IV PRN (13:01)
[2017-09-01] MEDS ORDERED: HYDROMORPHONE HCL INJ/PF 2 MG/ML AMPULE IV ONE (13:03)
[2017-09-01] MEDS ORDERED: DIPHENHYDRAMINE HCL 50 MG/ML VIAL IV ONE (13:03)
[2017-09-01] MEDS ORDERED: PROMETHAZINE HCL INJ 25 MG/1 ML VIAL IV ONE (13:03)
--- NOTE | 2017-09-01 13:09 | ER Document Report ---
ED General Pain - General Chief Complaint: Sickle Cell Crisis Stated Complaint: BACK PAIN, ABDOMINAL PAIN,NAUSEA Time Seen by Provider: 09/01/17 11:29 Notes: 27 years old female with a history of sickle cell disease, states that she is having her regular menstrual cycle during this time she get severe pain over the pelvic region therefore present to the ED. She is taking OxyContin at home. Denies any fever chills or other constitutional symptoms. Denies any nausea vomiting. TRAVEL OUTSIDE OF THE [place] IN LAST 30 DAYS: No - HPI Onset: Just prior to arrival Onset/Duration: denies: Sudden, Gradual, Constant, Intermittent, Persistent, Waxing and waning, Better, Worse, Gone Quality of pain: Achy. denies: No pain, Burning, Cramping, Dull, Fullness, Pressure, Sharp, Stabbing, Throbbing, Other Context: denies: Chronic problem, New onset, General body pain, Joint pain, Cold exposure, Recent physical stress, Recent emotional stress, Recent illness, Other Typical of prior episodes of painful crisis: Yes Genotype: SS Associated symptoms: denies: None, Fever, Chills, Sweating, Muscle aches, Other Exacerbated by: denies: Denies, Supine, Sitting, Standing, Movement, Walking, Coughing, Deep breathing, Food, Other Relieved by: denies: Denies, Supine, Sitting, Standing, Remaining still, Antacids, Food, Other - Related Data Allergies/Adverse Reactions: ceftriaxone sodium [From Rocephin] Allergy (Verified 09/01/17 11:23) Cephalosporins Allergy (Verified 09/01/17 11:23) milk [Milk] Allergy (Verified 09/01/17 11:23) Shellfish * [Shellfish] Allergy (Verified 09/01/17 11:23) wheat [Wheat] Allergy (Verified 09/01/17 11:23) Past Medical History - General Information source: Patient Last Menstrual Period: 08/30/17 - Social History Smoking Status: Unknown if Ever Smoked Chew tobacco use (# tins/day): No Frequency of alcohol use: Rare Drug Abuse: None Family History: Reviewed & Not Pertinent, DM, Malignancy - Brother with Hodgkin' s lymphoma. Maternal grandfather with lung cancer., Other - sickle trait Patient has suicidal ideation: No Patient has homicidal ideation: No - Past Medical History Cardiac Medical History: Reports: Hx Hypertension, Hx Heart Murmur Pulmonary Medical History: Reports: Hx Asthma, Hx Pneumonia Neurological Medical History: Reports: Hx Migraine, Hx Seizures - A CHILD. Denies: Hx Cerebrovascular Accident Endocrine Medical History: Denies: Hx Diabetes Mellitus Type 2, Hx Hyperthyroidism, Hx Hypothyroidism Renal/ Medical History: Denies: Hx Peritoneal Dialysis GI Medical History: Reports: Hx Gastroesophageal Reflux Disease Musculoskeltal Medical History: Denies Hx Arthritis, Denies Hx Fibromyalgia Skin Medical History: Reports Hx MRSA Psychiatric Medical History: Reports: Hx Depression Past Surgical History: Reports: Hx Adenoidectomy, Hx Cholecystectomy, Hx Oral Surgery - growth removed from under tongue, Hx Tonsillectomy, Other - Port placement 2 and removal for infection, multiple PICC lines, central l. Denies : Hx Hysterectomy, Hx Kidney (Renal Surgery), Hx Pacemaker - Immunizations Hx Diphtheria, Pertussis, Tetanus Vaccination: Yes Hx Pneumococcal Vaccination: 07/08/11 Review of Systems - Review of Systems Constitutional: denies: No symptoms reported, See HPI, Chills, Diaphoresis, Fever, Malaise, Weakness, Other, Weight gain, Weight loss, Recent illness EENT: denies: No symptoms reported, See HPI, Eye pain, Eye discharge, Blurred vision, Tearing, Double vision, Ear pain, Ear discharge, Nose pain, Nose congestion, Nose discharge, Sinus pressure, Sinus discharge, Throat pain, Difficulty swallowing, Throat swelling, Mouth pain, Mouth swelling, Dental problem, Vertigo, Other Cardiovascular: denies: No symptoms reported, See HPI, Chest pain, Palpitations , Heart racing, Orthopnea, Dyspnea, Syncope, Dizziness, Lightheaded, Edema, Other, Paroxysmal Nocturnal Dysp Respiratory: denies: No symptoms reported, See HPI, Cough, Hurts to breathe, Hemoptysis, Short of breath, Sputum, Stridor, Wheezing, Other Gastrointestinal: denies: No symptoms reported, See HPI, Abdomen distended, Abdominal pain, Diarrhea, Nausea, Vomiting, Constipation, Blood streaked bowels , Poor appetite, Poor fluid intake, Blood in vomit, Black stools, Rectal bleeding, Last bowel movement, Fecal incontinence, Other Genitourinary: denies: No symptoms reported, See HPI, Burning, Dysuria, Discharge, Frequency, Flank pain, Hematuria, Incontinence, Pain, Urgency, Retention, Other Physical Exam - Vital signs Vitals: Temp Pulse Resp BP Pulse Ox 99.4 F 99 16 115/51 L 98 09/01/17 11:25 09/01/17 11:25 09/01/17 11:25 09/01/17 11:25 09/01/17 11:25 - Notes Notes: PHYSICAL EXAMINATION: GENERAL: Well-appearing, well-nourished and in no acute distress. Not appear to be in any acute distress HEAD: Atraumatic, normocephalic. EYES: Pupils equal round and reactive to light, extraocular movements intact, conjunctiva are normal. ENT: Nares patent, oropharynx clear without exudates. Moist mucous membranes. NECK: Normal range of motion, supple without lymphadenopathy LUNGS: Breath sounds clear to auscultation bilaterally and equal. No wheezes rales or rhonchi. HEART: Regular rate and rhythm without murmurs ABDOMEN: Soft, nontender, nondistended abdomen. No guarding, no rebound. No masses appreciated. Female : deferred Musculoskeletal: Normal range of motion, no pitting or edema. No cyanosis. NEUROLOGICAL: Cranial nerves grossly intact. Normal speech, normal gait. Normal sensory, motor exams PSYCH: Normal mood, normal affect. SKIN: Warm, Dry, normal turgor, no rashes or lesions noted. Course - Re-evaluation Re-evalutation: 09/01/17 14:47 Given IV fluid, and pain medications. With improvement discharge home - Vital Signs Vital signs: Temp Pulse Resp BP Pulse Ox 99.4 F 99 16 115/51 L 98 09/01/17 11:25 09/01/17 11:25 09/01/17 11:25 09/01/17 11:25 09/01/17 11:25 - Laboratory Result Diagrams: 09/01/17 13:59 09/01/17 13:59 Laboratory results interpreted by me: 09/01/17 09/01/17 09/01/17 11:43 13:59 13:59 RBC 2.20 L Hgb 8.9 L Hct 25.5 L MCV 116 H MCH 40.4 H RDW 16.7 H Retic Count (auto) 3.23 H BUN 6 L Urine Blood SMALL H Urine Urobilinogen 2.0 H Discharge - Discharge Clinical Impression: Sickle cell pain crisis, Dehydration Disposition: HOME, SELF-CARE Instructions: Dehydration ([facility])
[2017-09-01 14:04] LABS: ABSOLUTE RETICS # 0.071 10^6/uL (0.028-0.122); HEMATOCRIT 25.5 % (36.0-47.0); HEMOGLOBIN 8.9 g/dL (12.0-15.5); MEAN CORPUSCULAR HEMOGLOBIN 40.4 pg (27.0-33.4); MEAN CORPUSCULAR HGB CONC 34.8 g/dL (32.0-36.0); MEAN CORPUSCULAR VOLUME 116 fl (80-97); PLATELET COUNT 204 10^3/uL (150-450); RED CELL DISTRIBUTION WIDTH 16.7 % (11.5-14.0); RETICULOCYTE COUNT (AUTO) 3.23 % (0.66-2.85); WHITE BLOOD COUNT 5.5 10^3/uL (4.0-10.5)
[2017-09-01 14:19] LABS: ALANINE AMINOTRANSFERASE 29 U/L (9-52); ALBUMIN 4.5 g/dL (3.5-5.0); ALKALINE PHOSPHATASE 62 U/L (38-126); ANION GAP 12 (5-19); ASPARTATE AMINO TRANSFERASE 29 U/L (14-36); BILIRUBIN,TOTAL 0.8 mg/dL (0.2-1.3); BLOOD UREA NITROGEN 6 mg/dL (7-20); CALCIUM 8.9 mg/dL (8.4-10.2); CARBON DIOXIDE 23 mmol/L (22-30); CHLORIDE 107 mmol/L (98-107); GLUCOSE 94 mg/dL (75-110); SODIUM 142.3 mmol/L (137-145); TOTAL PROTEIN 7.2 g/dL (6.3-8.2)
[2017-09-01 15:18] VITALS: BP 103/53
== END 2017-09-01 15:31 | disposition home or self-care (01) ==
LOC: ER 11:20
DX: D57.00 Hb-SS disease with crisis, unspecified (principal); E86.0 Dehydration; I10 Essential (primary) hypertension; Z86.14 Personal history of Methicillin resistant Staphylococcus aureus infection; Z91.011 Allergy to milk products; Z91.013 Allergy to seafood
CPT/HCPCS: 99284; 96361; 96374; 96375; 36415; 85027; 81025; 85045; 80053; 81001; J1200; J1170; J2550; J7030; J3490

== ENCOUNTER 2017-09-03 15:07 | Outpatient (CLI) | payer MEDICAID ==
[2017-09-03] MEDS ORDERED: NORMAL SALINE 1000 ML 1,000 ML IV PRN (15:24)
[2017-09-03] MEDS ORDERED: HYDROMORPHONE HCL INJ/PF 2 MG/ML AMPULE IV PRN (15:26)
== END 2017-09-03 17:05 | disposition home or self-care (01) ==
LOC: II 15:07 → 5TH 15:12 → II 17:05
PROVIDERS: ATTEND Internal Medicine
PROC: 3E033NZ Introduction of Analgesics, Hypnotics, Sedatives into Peripheral Vein, Percutaneous Approach (ICD-10-PCS; principal; 2017-09-03)
PROC: 3E0337Z Introduction of Electrolytic and Water Balance Substance into Peripheral Vein, Percutaneous Approach (ICD-10-PCS; 2017-09-03)
DX: R52 Pain, unspecified (principal); E86.0 Dehydration; D57.1 Sickle-cell disease without crisis
CPT/HCPCS: 96374; 96360; J1170; 96361

== ENCOUNTER 2017-09-04 12:55 | Outpatient (CLI) | payer MEDICAID ==
[~2017-09-04 12:55] MED LIST changes: -DEXAMETHASONE SOD PHOSPHATE INJ 4 MG/1 ML VIAL ONE; -LACTATED RINGERS 1000 ML IV PRN; -LIDOCAINE 0.5% INJ-PF (5 MG/ML) 50 ML SDV SUBCUT PRN; -LIDOCAINE 2% INJ-PF (20 MG/ML) 10 ML AMPUL ONE; -ONDANSETRON HCL INJ/PF 4 MG/2 ML SDV ONE; +PROMETHAZINE HCL INJ 25 MG/1 ML VIAL IV PRN; -SUCCINYLCHOLINE CHLORIDE INJ 200 MG/10 ML VIAL ONE
[2017-09-04] MEDS ORDERED: HYDROMORPHONE HCL INJ/PF 2 MG/ML AMPULE ONE (13:25)
[2017-09-04] MEDS ORDERED: NORMAL SALINE 1000 ML 1,000 ML IV PRN (14:14)
[2017-09-04 15:00] VITALS: BP 111/67
== END 2017-09-04 15:00 | disposition home or self-care (01) ==
LOC: II 12:55 → 5TH 13:12 → II 15:00
PROVIDERS: ATTEND Internal Medicine
PROC: 3E0337Z Introduction of Electrolytic and Water Balance Substance into Peripheral Vein, Percutaneous Approach (ICD-10-PCS; principal; 2017-09-04)
PROC: 3E033GC Introduction of Other Therapeutic Substance into Peripheral Vein, Percutaneous Approach (ICD-10-PCS; 2017-09-04)
DX: R52 Pain, unspecified (principal); E86.0 Dehydration; D57.1 Sickle-cell disease without crisis
CPT/HCPCS: 96374; 96375; 96360; J1170; J2550; 96361

== ENCOUNTER 2017-09-06 13:17 | Outpatient (CLI) | payer MEDICAID ==
[~2017-09-06 13:17] MED LIST changes: +HYDROMORPHONE HCL INJ/PF 2 MG/ML AMPULE IV PRN; +NORMAL SALINE 1000 ML 1,000 ML IV PRN; -PROMETHAZINE HCL INJ 25 MG/1 ML VIAL IV PRN
[2017-09-06] MEDS ORDERED: PROMETHAZINE HCL INJ 25 MG/1 ML VIAL IV ONE (14:30)
[2017-09-06 14:55] VITALS: BP 128/60
== END 2017-09-06 16:13 | disposition home or self-care (01) ==
LOC: II 13:17 → 5TH 13:20 → II 16:13
PROVIDERS: ATTEND Internal Medicine
PROC: 3E033GC Introduction of Other Therapeutic Substance into Peripheral Vein, Percutaneous Approach (ICD-10-PCS; principal; 2017-09-06)
PROC: 3E0337Z Introduction of Electrolytic and Water Balance Substance into Peripheral Vein, Percutaneous Approach (ICD-10-PCS; 2017-09-06)
DX: R52 Pain, unspecified (principal); E86.0 Dehydration; D57.1 Sickle-cell disease without crisis
CPT/HCPCS: 96374; 96375; 96360; J1170; J2550; 96361; 96365

== ENCOUNTER 2017-09-13 15:05 | Outpatient (CLI) | payer MEDICAID ==
[2017-09-13 16:06] VITALS: BP 116/72
[2017-09-13] MEDS ORDERED: PROMETHAZINE HCL INJ 25 MG/1 ML VIAL IV ONE (17:30)
[2017-09-13] MEDS ORDERED: NORMAL SALINE 1000 ML 1,000 ML IV ONE (17:30)
== END 2017-09-13 17:42 | disposition home or self-care (01) ==
LOC: II 15:05 → 2S 15:11 → II 17:42
PROVIDERS: ATTEND Internal Medicine
PROC: 3E0337Z Introduction of Electrolytic and Water Balance Substance into Peripheral Vein, Percutaneous Approach (ICD-10-PCS; principal; 2017-09-13)
PROC: 3E033GC Introduction of Other Therapeutic Substance into Peripheral Vein, Percutaneous Approach (ICD-10-PCS; 2017-09-13)
DX: E86.0 Dehydration (principal); D57.00 Hb-SS disease with crisis, unspecified; R11.0 Nausea
CPT/HCPCS: J2550; J7030; 96361; 96374

== ENCOUNTER 2017-11-26 13:40 | Outpatient (CLI) | payer MEDICAID ==
[2017-11-26] MEDS ORDERED: PROMETHAZINE HCL INJ 25 MG/1 ML VIAL IV PRN (13:43)
[2017-11-26] MEDS ORDERED: NORMAL SALINE 1000 ML 1,000 ML IV PRN (13:44)
[2017-11-26] MEDS ORDERED: HYDROMORPHONE HCL INJ/PF 2 MG/ML AMPULE IV PRN (13:44)
[2017-11-26 13:58] VITALS: BP 114/56
== END 2017-11-26 16:12 | disposition home or self-care (01) ==
LOC: II 13:40 → 5TH 13:45 → II 16:12
PROVIDERS: ATTEND Internal Medicine
PROC: 3E033GC Introduction of Other Therapeutic Substance into Peripheral Vein, Percutaneous Approach (ICD-10-PCS; principal; 2017-11-26)
PROC: 3E0337Z Introduction of Electrolytic and Water Balance Substance into Peripheral Vein, Percutaneous Approach (ICD-10-PCS; 2017-11-26)
DX: D57.00 Hb-SS disease with crisis, unspecified (principal); E86.0 Dehydration; R11.0 Nausea; R52 Pain, unspecified
CPT/HCPCS: 96374; 96375; 96361; J1170; J2550; 96360

== ENCOUNTER 2017-11-27 13:15 | Outpatient (CLI) | payer MEDICAID ==
[2017-11-27] MEDS ORDERED: PROMETHAZINE HCL INJ 25 MG/1 ML VIAL IV PRN (13:57)
[2017-11-27] MEDS ORDERED: HYDROMORPHONE HCL INJ/PF 2 MG/ML AMPULE IV PRN (13:58)
[2017-11-27] MEDS ORDERED: NORMAL SALINE 1000 ML 1,000 ML IV PRN (13:58)
[2017-11-27 14:21] VITALS: BP 135/52
== END 2017-11-27 15:16 | disposition home or self-care (01) ==
LOC: II 13:15 → 5TH 14:35 → II 15:16
PROVIDERS: ATTEND Internal Medicine
PROC: 3E033GC Introduction of Other Therapeutic Substance into Peripheral Vein, Percutaneous Approach (ICD-10-PCS; principal; 2017-11-27)
PROC: 3E0337Z Introduction of Electrolytic and Water Balance Substance into Peripheral Vein, Percutaneous Approach (ICD-10-PCS; 2017-11-27)
DX: D57.00 Hb-SS disease with crisis, unspecified (principal); E86.0 Dehydration; R11.0 Nausea; R52 Pain, unspecified
CPT/HCPCS: 96360; 96361; 96374; 96375; J1170; J2550

== ENCOUNTER 2017-11-28 10:16 | Outpatient (CLI) | payer MEDICAID ==
[~2017-11-28 10:16] MED LIST changes: +PROMETHAZINE HCL INJ 25 MG/1 ML VIAL IV PRN
[2017-11-28 12:29] VITALS: BP 110/56
== END 2017-11-28 12:34 | disposition home or self-care (01) ==
LOC: II 10:16 → 5TH 10:24 → II 12:34
PROVIDERS: ATTEND Internal Medicine
PROC: 3E0337Z Introduction of Electrolytic and Water Balance Substance into Peripheral Vein, Percutaneous Approach (ICD-10-PCS; principal; 2017-11-28)
PROC: 3E033GC Introduction of Other Therapeutic Substance into Peripheral Vein, Percutaneous Approach (ICD-10-PCS; 2017-11-28)
DX: D57.00 Hb-SS disease with crisis, unspecified (principal); E86.0 Dehydration; R11.0 Nausea; R52 Pain, unspecified
CPT/HCPCS: 96374; 96375; 96361; J1170; J2550; 96360

== ENCOUNTER 2017-11-29 11:19 | Outpatient (CLI) | payer MEDICAID ==
[2017-11-29 12:22] VITALS: BP 129/56
== END 2017-11-29 13:33 | disposition home or self-care (01) ==
LOC: II 11:19 → 5TH 11:48 → II 13:33
PROVIDERS: ATTEND Internal Medicine
PROC: 3E0337Z Introduction of Electrolytic and Water Balance Substance into Peripheral Vein, Percutaneous Approach (ICD-10-PCS; principal; 2017-11-29)
PROC: 3E033GC Introduction of Other Therapeutic Substance into Peripheral Vein, Percutaneous Approach (ICD-10-PCS; 2017-11-29)
DX: D57.00 Hb-SS disease with crisis, unspecified (principal); E86.0 Dehydration; R11.0 Nausea; R52 Pain, unspecified
CPT/HCPCS: 96374; 96375; 96361; J1170; J2550; 96360

== ENCOUNTER 2017-12-03 12:20 | Outpatient (CLI) | payer MEDICAID ==
[2017-12-03] MEDS ORDERED: PROMETHAZINE HCL INJ 25 MG/1 ML VIAL INJ PRN (12:29)
[2017-12-03] MEDS ORDERED: HYDROMORPHONE HCL INJ/PF 2 MG/ML AMPULE INJ PRN (12:30)
[2017-12-03] MEDS ORDERED: NORMAL SALINE 1000 ML 1,000 ML IV PRN (12:30)
[2017-12-03 13:51] VITALS: BP 111/69
== END 2017-12-03 14:50 | disposition home or self-care (01) ==
LOC: II 12:20 → 5TH 12:26 → II 14:50
PROVIDERS: ATTEND Internal Medicine
PROC: 3E033GC Introduction of Other Therapeutic Substance into Peripheral Vein, Percutaneous Approach (ICD-10-PCS; principal; 2017-12-03)
PROC: 3E0337Z Introduction of Electrolytic and Water Balance Substance into Peripheral Vein, Percutaneous Approach (ICD-10-PCS; 2017-12-03)
DX: D57.00 Hb-SS disease with crisis, unspecified (principal); E86.0 Dehydration; R11.0 Nausea; R52 Pain, unspecified
CPT/HCPCS: 96374; 96375; 96361; J1170; J2550; 96360

== ENCOUNTER 2017-12-04 13:17 | Outpatient (CLI) | payer MEDICAID ==
[~2017-12-04 13:17] MED LIST changes: +HYDROMORPHONE HCL INJ/PF 2 MG/ML AMPULE INJ PRN; -HYDROMORPHONE HCL INJ/PF 2 MG/ML AMPULE IV PRN; +PROMETHAZINE HCL INJ 25 MG/1 ML VIAL INJ PRN; -PROMETHAZINE HCL INJ 25 MG/1 ML VIAL IV PRN
[2017-12-04 14:25] VITALS: BP 108/57
== END 2017-12-04 15:16 | disposition home or self-care (01) ==
LOC: 4W 13:17 → II 13:17
PROVIDERS: ATTEND Internal Medicine
PROC: 3E033GC Introduction of Other Therapeutic Substance into Peripheral Vein, Percutaneous Approach (ICD-10-PCS; principal; 2017-12-04)
PROC: 3E0337Z Introduction of Electrolytic and Water Balance Substance into Peripheral Vein, Percutaneous Approach (ICD-10-PCS; 2017-12-04)
DX: D57.00 Hb-SS disease with crisis, unspecified (principal); E86.0 Dehydration; R11.0 Nausea; R52 Pain, unspecified
CPT/HCPCS: 96365; 96375; J1170; J2550; J7030; 96360

== ENCOUNTER 2017-12-05 13:35 | Outpatient (CLI) | payer MEDICAID ==
[~2017-12-05 13:35] MED LIST changes: -HYDROMORPHONE HCL INJ/PF 2 MG/ML AMPULE INJ PRN; +HYDROMORPHONE HCL INJ/PF 2 MG/ML AMPULE IV PRN; -PROMETHAZINE HCL INJ 25 MG/1 ML VIAL INJ PRN; +PROMETHAZINE HCL INJ 25 MG/1 ML VIAL IV PRN
[2017-12-05 14:06] VITALS: BP 120/66
[2017-12-05] MEDS ORDERED: PROMETHAZINE HCL INJ 25 MG/1 ML VIAL IV PRN (14:30)
== END 2017-12-05 15:37 | disposition home or self-care (01) ==
LOC: II 13:35 → 5TH 13:36 → II 15:37
PROVIDERS: ATTEND Internal Medicine
PROC: 3E033GC Introduction of Other Therapeutic Substance into Peripheral Vein, Percutaneous Approach (ICD-10-PCS; principal; 2017-12-05)
PROC: 3E0337Z Introduction of Electrolytic and Water Balance Substance into Peripheral Vein, Percutaneous Approach (ICD-10-PCS; 2017-12-05)
DX: D57.00 Hb-SS disease with crisis, unspecified (principal); E86.0 Dehydration; R11.0 Nausea; R52 Pain, unspecified
CPT/HCPCS: 96374; 96375; 96361; J1170; J2550; 96360

== ENCOUNTER 2017-12-06 12:02 | Outpatient (CLI) | payer MEDICAID ==
[2017-12-06 12:41] VITALS: BP 116/58
[2017-12-06] MEDS ORDERED: HYDROMORPHONE HCL INJ/PF 2 MG/ML AMPULE INJ PRN (12:43)
[2017-12-06] MEDS ORDERED: NORMAL SALINE 1000 ML 1,000 ML IV PRN (12:44)
== END 2017-12-06 14:30 | disposition home or self-care (01) ==
LOC: II 12:02 → 5TH 12:04 → II 14:30
PROVIDERS: ATTEND Internal Medicine
PROC: 3E0337Z Introduction of Electrolytic and Water Balance Substance into Peripheral Vein, Percutaneous Approach (ICD-10-PCS; principal; 2017-12-06)
PROC: 3E033GC Introduction of Other Therapeutic Substance into Peripheral Vein, Percutaneous Approach (ICD-10-PCS; 2017-12-06)
DX: D57.00 Hb-SS disease with crisis, unspecified (principal); E86.0 Dehydration; R11.0 Nausea; R52 Pain, unspecified
CPT/HCPCS: 96374; 96361; J1170; 96360

== ENCOUNTER 2017-12-15 16:28 | Emergency (ER) | payer MEDICAID ==
[2017-12-15] MEDS ORDERED: NORMAL SALINE 1000 ML 1,000 ML IV ONE (16:59)
[2017-12-15] MEDS ORDERED: PROMETHAZINE HCL 25 MG TABLET PO ONE (17:00)
[2017-12-15] MEDS ORDERED: HYDROMORPHONE HCL INJ/PF 2 MG/ML AMPULE IV ONE (17:00)
--- NOTE | 2017-12-15 17:01 | ER Document Report ---
ED Medical Screen (RME) - General Chief Complaint: Sickle Cell Crisis Stated Complaint: PAIN BACK/LEGS/ARMS Time Seen by Provider: 12/15/17 16:58 Mode of Arrival: Ambulatory Information source: Patient Notes: This is a 27-year-old female with a history of sickle cell disease who presents to the emergency room with typical sickle cell crisis symptoms (back pain, joint pains) along with dizziness and generalized weakness. The patient denies fever. She denies abdominal pain. She denies chest pain or shortness of breath. I have greeted and performed a rapid initial assessment of this patient. A comprehensive ED assessment and evaluation of the patient, analysis of test results and completion of medical decision making process we will be contacted by additional ED providers. TRAVEL OUTSIDE OF THE [place] IN LAST 30 DAYS: No - Related Data Allergies/Adverse Reactions: ceftriaxone sodium [From Rocephin] Allergy (Verified 12/15/17 16:54) Cephalosporins Allergy (Verified 12/15/17 16:54) milk [Milk] Allergy (Verified 12/15/17 16:54) Shellfish * [Shellfish] Allergy (Verified 12/15/17 16:54) wheat [Wheat] Allergy (Verified 12/15/17 16:54) Past Medical History - Social History Family history: None - Past Medical History Cardiac Medical History: Reports: Hx Hypertension, Hx Heart Murmur Denies: Hx Coronary Artery Disease, Hx Heart Attack Pulmonary Medical History: Reports: Hx Asthma, Hx Pneumonia - 2016 Denies: Hx Bronchitis, Hx COPD Neurological Medical History: Reports: Hx Migraine, Hx Seizures - HX OF. NO MEDICATIONS. Denies: Hx Cerebrovascular Accident Endocrine Medical History: Denies: Hx Diabetes Mellitus Type 2, Hx Hyperthyroidism, Hx Hypothyroidism Renal/ Medical History: Denies: Hx Peritoneal Dialysis GI Medical History: Reports: Hx Gastroesophageal Reflux Disease Musculoskeltal Medical History: Denies Hx Arthritis, Denies Hx Fibromyalgia Skin Medical History: Reports Hx MRSA Psychiatric Medical History: Reports: Hx Depression - 2014 Past Surgical History: Reports: Hx Adenoidectomy, Hx Cholecystectomy, Hx Oral Surgery - growth removed from under tongue, Hx Tonsillectomy, Other - Port placement 2 and removal for infection, multiple PICC lines, central l. Denies : Hx Hysterectomy, Hx Kidney (Renal Surgery), Hx Pacemaker - Immunizations Hx Diphtheria, Pertussis, Tetanus Vaccination: Yes History of Influenza Vaccine for 04/2017 - 09/2017 Season: Yes Influenza Administration Date for 04/2017 - 09/2017 Season: 03/22/17 Physical Exam - Vital signs Vitals: Temp Pulse Resp BP Pulse Ox 98.8 F 77 18 116/54 L 97 12/15/17 16:37 12/15/17 16:37 12/15/17 16:37 12/15/17 16:37 12/15/17 16:37 Course - Vital Signs Vital signs: Temp Pulse Resp BP Pulse Ox 98.8 F 77 18 116/54 L 97 12/15/17 16:37 12/15/17 16:37 12/15/17 16:37 12/15/17 16:37 12/15/17 16:37
[2017-12-15] MEDS ORDERED: HYDROMORPHONE HCL 2 MG TABLET PO ONE ×2 (17:30→19:10)
[2017-12-15] MEDS ORDERED: MORPHINE SULFATE 10 MG/ML INJ IV ONE (17:30)
[2017-12-15 17:41] LABS: ABSOLUTE BASOPHILS # (AUTO) 0.1 10^3/uL (0.0-0.2); ABSOLUTE LYMPHOCYTES (AUTO) 1.4 10^3/uL (0.5-4.7); ABSOLUTE MONOCYTES (AUTO) 0.5 10^3/uL (0.1-1.4); ABSOLUTE NEUT (AUTO) 3.7 10^3/uL (1.7-8.2); ABSOLUTE RETICS # 0.178 10^6/uL (0.028-0.122); EOSINOPHILS % (AUTO) 0.8 % (0-6); HEMATOCRIT 29.2 % (36.0-47.0); LYMPHOCYTES % (AUTO) 24.4 % (13-45); MEAN CORPUSCULAR HEMOGLOBIN 41.6 pg (27.0-33.4); MEAN CORPUSCULAR HGB CONC 34.2 g/dL (32.0-36.0); MEAN CORPUSCULAR VOLUME 122 fl (80-97); MONOCYTES % (AUTO) 8.4 % (3-13); PLATELET COUNT 283 10^3/uL (150-450); RED CELL DISTRIBUTION WIDTH 15.9 % (11.5-14.0); RETICULOCYTE COUNT (AUTO) 7.42 % (0.66-2.85); SEGMENTED NEUTROPHILS % (AUTO) 65.4 % (42-78); TOTAL CELLS COUNTED % (AUTO) 100 %; WHITE BLOOD COUNT 5.6 10^3/uL (4.0-10.5)
[2017-12-15 17:58] LABS: ALANINE AMINOTRANSFERASE 27 U/L (9-52); ALBUMIN 4.5 g/dL (3.5-5.0); ALKALINE PHOSPHATASE 51 U/L (38-126); ANION GAP 10 (5-19); ASPARTATE AMINO TRANSFERASE 29 U/L (14-36); BILIRUBIN,DIRECT 0.4 mg/dL (0.0-0.4); BILIRUBIN,TOTAL 0.9 mg/dL (0.2-1.3); BLOOD UREA NITROGEN 5 mg/dL (7-20); CALCIUM 9.4 mg/dL (8.4-10.2); CARBON DIOXIDE 25 mmol/L (22-30); CHLORIDE 109 mmol/L (98-107); GLUCOSE 97 mg/dL (75-110); POTASSIUM 3.8 mmol/L (3.6-5.0); SODIUM 144.3 mmol/L (137-145); TOTAL PROTEIN 7.5 g/dL (6.3-8.2)
[2017-12-15 18:00] LABS: ANISOCYTOSIS 1+; OVALOCYTES 1+; PLATELET COMMENT ADEQUATE; POIKILOCYTOSIS 2+; POLYCHROMASIA 1+; SICKLE RED CELLS SLIGHT; TARGET CELLS 1+
[2017-12-15] MEDS ORDERED: DIPHENHYDRAMINE HCL 50 MG/ML VIAL ONE (18:05)
[2017-12-15] MEDS ORDERED: DIPHENHYDRAMINE HCL 50 MG/ML VIAL IV ONE (18:07)
--- NOTE | 2017-12-15 18:08 | ER Document Report ---
ED General Pain - General Chief Complaint: Sickle Cell Crisis Stated Complaint: PAIN BACK/LEGS/ARMS Time Seen by Provider: 12/15/17 16:58 Mode of Arrival: Ambulatory Notes: Patient is complaining of pain of her legs and her back, pain typical of sickle cell pain crisis. Her symptoms have been going on for a day. She was admitted to this hospital most recently in August has been nauseated but not vomiting. Unaware of any fevers. No UTI symptoms. Denies any chest pain or difficulty breathing or coughing or congestion. LMP November. History of cholecystectomy, port placement twice. Blood clot in right arm treated with anticoagulation for about a month, not currently. TRAVEL OUTSIDE OF THE [place] IN LAST 30 DAYS: No - Related Data Allergies/Adverse Reactions: ceftriaxone sodium [From Rocephin] Allergy (Verified 12/15/17 16:54) Cephalosporins Allergy (Verified 12/15/17 16:54) milk [Milk] Allergy (Verified 12/15/17 16:54) Shellfish * [Shellfish] Allergy (Verified 12/15/17 16:54) wheat [Wheat] Allergy (Verified 12/15/17 16:54) Past Medical History - General Information source: Patient - Social History Smoking Status: Never Smoker Chew tobacco use (# tins/day): No Frequency of alcohol use: Occasional Drug Abuse: None Family History: Reviewed & Not Pertinent, DM, Malignancy - Brother with Hodgkin' s lymphoma. Maternal grandfather with lung cancer., Other - sickle trait Patient has suicidal ideation: No Patient has homicidal ideation: No - Past Medical History Cardiac Medical History: Reports: Hx Hypertension, Hx Heart Murmur Pulmonary Medical History: Reports: Hx Asthma, Hx Pneumonia - 2016 Neurological Medical History: Reports: Hx Migraine, Hx Seizures - HX OF. NO MEDICATIONS GI Medical History: Reports: Hx Gastroesophageal Reflux Disease Skin Medical History: Reports Hx MRSA Psychiatric Medical History: Reports: Hx Depression - 2014 Past Surgical History: Reports: Hx Adenoidectomy, Hx Cholecystectomy, Hx Oral Surgery - growth removed from under tongue, Hx Tonsillectomy, Other - Port placement 2 and removal for infection, multiple PICC lines, central l - Immunizations Hx Diphtheria, Pertussis, Tetanus Vaccination: Yes Hx Pneumococcal Vaccination: 07/08/11 Review of Systems - Review of Systems Notes: REVIEW OF SYSTEMS: CONSTITUTIONAL : Denies fever. EENT: Denies eye, ear, nose or mouth or throat pain or other symptoms. CARDIOVASCULAR: Denies chest pain. RESPIRATORY: Denies cough, chest congestion, or shortness of breath. GASTROINTESTINAL: Denies abdominal pain or nausea, vomiting, or diarrhea. GENITOURINARY: Denies difficulty or painful urinating, urinary frequency, blood in urine. MUSCULOSKELETAL: Complains of back and extremity pain.. SKIN: Denies rash or skin lesions. NEUROLOGICAL: Denies LOC or altered mental status. Denies headache. Denies sensory loss or motor deficits. ALL OTHER SYSTEMS REVIEWED AND NEGATIVE. Physical Exam - Vital signs Vitals: Temp Pulse Resp BP Pulse Ox 98.8 F 77 18 116/54 L 97 12/15/17 16:37 12/15/17 16:37 12/15/17 16:37 12/15/17 16:37 12/15/17 16:37 Interpretation: Normal - Notes Notes: PHYSICAL EXAMINATION: GENERAL: Well-appearing, in no acute distress. HEAD: Atraumatic, normocephalic. EYES: Pupils equal round and reactive to light, extraocular movements intact. ENT: oropharynx clear without exudates. Moist mucous membranes. NECK: Normal range of motion, supple. LUNGS: Breath sounds clear and equal bilaterally. HEART: Regular rate and rhythm without murmurs. ABDOMEN: Soft, nontender. No guarding or rebound. No masses. BACK: No tenderness throughout entire back. EXTREMITIES: Normal range of motion without pain. NEUROLOGICAL: Normal speech, normal gait. Normal sensory, motor, and reflex exams. Awake, alert, and oriented x3. Cranial nerves normal. PSYCH: Normal mood, normal affect. SKIN: Warm, dry, no rashes. Course - Re-evaluation Re-evalutation: 12/15/17 19:08 Patient says she has not had much relief from morphine IV and oral Dilaudid. We are out of Dilaudid for injection. I will try some fentanyl and another couple milligrams of Dilaudid p.o. 12/15/17 20:29 Patient says that she is only slightly better since she came in, but realizes that we are out of Dilaudid IV and many other medications and cannot offer her the medication she usually finds helpful. 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 I am going to write her a prescription for a few Dilaudid 2 mg pills to take home. She is being instructed to call her oncologist, Dr. Menjiavr, first thing tomorrow morning. - Vital Signs Vital signs: Temp Pulse Resp BP Pulse Ox 98.8 F 77 18 116/54 L 97 12/15/17 16:37 12/15/17 16:37 12/15/17 16:37 12/15/17 16:37 12/15/17 16:37 - Laboratory Result Diagrams: 12/15/17 17:24 12/15/17 17:24 Laboratory results interpreted by me: 12/15/17 12/15/17 12/15/17 17:24 17:24 19:03 RBC 2.40 L Hgb 10.0 L Hct 29.2 L MCV 122 H MCH 41.6 H RDW 15.9 H Retic Count (auto) 7.42 H Absolute Retic 0.178 H Chloride 109 H BUN 5 L Urine Urobilinogen 2.0 H Discharge - Discharge Clinical Impression: Sickle cell pain crisis Condition: Stable Disposition: HOME, SELF-CARE Additional Instructions: Sickle Cell Crisis You have "sickle cell crisis." Sickle cell disease is caused by abnormal hemoglobin. This hemoglobin can deform red blood cells into a sickle shape. These abnormal blood cells can block blood vessels. This causes the pain of sickle cell crisis. Sickle cell crisis can occur any time. But attacks are more likely with acute infection, dehydration, or altitude change. A crisis usually causes pain in the legs, back, abdomen, and chest. Sometimes the pain may ease and return later. The usual treatment is oxygen, pain medication, IV fluids, and treatment of infection. Attacks may take a couple of days to resolve. Return if the pain becomes more severe, or if there are new symptoms. Intravenous (IV) Fluids As part of your care today, you received intravenous (IV) fluids. IV fluids are administered to patients who are dehydrated or to those who have certain chemical (electrolyte) abnormalities that need correcting. Oral Narcotic Medication You have been given a prescription for pain control. This medication is a narcotic. It's best taken with food, as nausea can result if taken on an empty stomach. Don't operate machinery or drive within six hours of taking this medication. Do not combine this medicine with alcohol, or with any medication which can cause sedation (such as cold tablets or sleeping pills) unless you get permission from the physician. Narcotics tend to cause constipation. If possible, drink plenty of fluids and eat a diet high in fiber and fruits. FOLLOW-UP CARE: If you have been referred to a physician for follow-up care, call the physician s office for an appointment as you were instructed or within the next two days. If you experience worsening or a significant change in your symptoms, notify the physician immediately or return to the Emergency Department at any time for re-evaluation. Call Dr. Menjivar's office tomorrow morning and let them know that she were here in the emergency department and how you are doing. Prescriptions: Hydromorphone HCl [Dilaudid 2 mg Tablet] 2 - 4 mg PO Q4HP PRN #10 tablet PRN Reason: Referrals: BRUNA MENJIVAR MD [ACTIVE STAFF] - Follow up tomorrow
[2017-12-15] MEDS ORDERED: FENTANYL CITRATE INJ/PF 250 MCG/5 ML AMPULE IV ONE (19:09)
[2017-12-15] MEDS ORDERED: FENTANYL CITRATE INJ/PF 100 MCG/2 ML AMPUL IV ONE (19:14)
[2017-12-15 19:28] LABS: APPEARANCE,URINE SLIGHTLY-CLOUDY; BILIRUBIN,URINE NEGATIVE (NEGATIVE); COLOR,URINE YELLOW; GLUCOSE, URINE NEGATIVE (NEGATIVE); KETONES,URINE NEGATIVE (NEGATIVE); LEUKOCYTE ESTERASE,URINE NEGATIVE (NEGATIVE); NITRITE,URINE NEGATIVE (NEGATIVE); PROTEIN,URINE NEGATIVE (NEGATIVE)
[2017-12-15 20:46] VITALS: BP 106/68
== END 2017-12-15 20:46 | disposition home or self-care (01) ==
LOC: ER 16:28
DX: D57.00 Hb-SS disease with crisis, unspecified (principal); M79.606 Pain in leg, unspecified; M54.9 Dorsalgia, unspecified; R11.0 Nausea; I10 Essential (primary) hypertension; J45.909 Unspecified asthma, uncomplicated; Z88.1 Allergy status to other antibiotic agents; Z91.011 Allergy to milk products; Z91.013 Allergy to seafood; Z91.018 Allergy to other foods
CPT/HCPCS: 99284; 96361; 96374; 96375; 36415; 84702; 85025; 85045; 80053; 81001; J1200; J3010; J3490 ×2; J2270; J7030

== ENCOUNTER 2018-01-15 10:10 | Outpatient (CLI) | payer MEDICAID ==
[2018-01-15] MEDS ORDERED: NORMAL SALINE 1000 ML 1,000 ML IV PRN (10:40)
[2018-01-15] MEDS: HYDROMORPHONE HCL INJ/PF 2 MG/ML AMPULE INJ PRN ×2 (12:27→16:18)
[2018-01-15 12:50] VITALS: BP 115/64
== END 2018-01-15 18:04 | disposition home or self-care (01) ==
LOC: II 10:10 → 2N 10:16 → II 18:04
PROVIDERS: ATTEND Internal Medicine
PROC: 3E033GC Introduction of Other Therapeutic Substance into Peripheral Vein, Percutaneous Approach (ICD-10-PCS; principal; 2018-01-15)
DX: D57.00 Hb-SS disease with crisis, unspecified (principal); E86.0 Dehydration; R11.0 Nausea; R52 Pain, unspecified
CPT/HCPCS: J1170; J7030; 96374; 96375

== ENCOUNTER 2018-01-16 15:39 | Outpatient (CLI) | payer MEDICAID ==
[2018-01-16] MEDS ORDERED: HYDROMORPHONE HCL INJ/PF 2 MG/ML AMPULE ONE (15:57)
[2018-01-16] MEDS ORDERED: NORMAL SALINE 1000 ML 1,000 ML IV PRN (16:19)
[2018-01-16 16:57] VITALS: BP 117/65
== END 2018-01-16 17:10 | disposition home or self-care (01) ==
LOC: II 15:39 → 5TH 15:43 → 2S 15:55 → II 17:10
PROVIDERS: ATTEND Internal Medicine
PROC: 3E033GC Introduction of Other Therapeutic Substance into Peripheral Vein, Percutaneous Approach (ICD-10-PCS; principal; 2018-01-16)
PROC: 3E0337Z Introduction of Electrolytic and Water Balance Substance into Peripheral Vein, Percutaneous Approach (ICD-10-PCS; 2018-01-16)
DX: D57.00 Hb-SS disease with crisis, unspecified (principal); E86.0 Dehydration; R52 Pain, unspecified; R11.0 Nausea
CPT/HCPCS: 96361; 96374; J1170

== ENCOUNTER 2018-01-17 15:33 | Outpatient (CLI) | payer MEDICAID ==
[2018-01-17 16:11] VITALS: BP 124/64
[2018-01-17] MEDS ORDERED: NORMAL SALINE 1000 ML 1,000 ML IV ONE (16:30)
[2018-01-17] MEDS ORDERED: HYDROMORPHONE HCL INJ/PF 2 MG/ML AMPULE IV ONE (16:30)
== END 2018-01-17 19:00 | disposition home or self-care (01) ==
LOC: II 15:33 → 2N 15:39 → II 19:00
PROVIDERS: ATTEND Internal Medicine
PROC: 3E033GC Introduction of Other Therapeutic Substance into Peripheral Vein, Percutaneous Approach (ICD-10-PCS; principal; 2018-01-17)
PROC: 3E0337Z Introduction of Electrolytic and Water Balance Substance into Peripheral Vein, Percutaneous Approach (ICD-10-PCS; 2018-01-17)
DX: D57.00 Hb-SS disease with crisis, unspecified (principal); E86.0 Dehydration; R11.0 Nausea; R52 Pain, unspecified
CPT/HCPCS: J1170; J7030; 96361; 96374

== ENCOUNTER 2018-02-23 12:20 | Emergency (ER) | payer MEDICAID ==
[2018-02-23 12:25] VITALS: BP 122/43
[2018-02-23] MEDS ORDERED: BENZONATATE 100 MG CAPSULE PO ONE (12:58)
--- NOTE | 2018-02-23 13:50 | RADIOLOGY REPORT (SQ) ---
EXAM DESCRIPTION: CHEST 2 VIEWS COMPLETED DATE/TIME: 02/23/2018 1:38 pm REASON FOR STUDY: cough, fever COMPARISON: Multiples, most recent 04/18/2017 EXAM PARAMETERS: NUMBER OF VIEWS: two views TECHNIQUE: Digital Frontal and Lateral radiographic views of the chest acquired. RADIATION DOSE: NA LIMITATIONS: none FINDINGS: LUNGS AND PLEURA: No opacities, masses or pneumothorax. No pleural effusion. Linear bibas ilar atelectasis. MEDIASTINUM AND HILAR STRUCTURES: No masses or contour abnormalities. HEART AND VASCULAR STRUCTURES: Heart normal size. No evidence for failure. BONES: No acute findings. HARDWARE: None in the chest. OTHER: No other significant finding. IMPRESSION: NO ACUTE RADIOGRAPHIC FINDING IN THE CHEST. TECHNICAL DOCUMENTATION: JOB ID: [id number] [employer]- All Rights Reserved Reading location - IP/workstation name: [email or web address]
--- NOTE | 2018-02-23 13:50 | ER Document Report ---
HPI - HPI Pain Level: 5 Notes: Patient presents with cough, congestion and possible low-grade fever for the last 5-7 days. Patient reports that she has a history of sickle cell and that if she gets sick she typically has a sickle cell crisis. Patient currently denies any pain consistent with a sickle cell crisis. - CARDIOVASCULAR Cardiovascular: REPORTS: Chest pain - RESPIRATORY Respiratory: REPORTS: Coughing - REPRODUCTIVE Reproductive: DENIES: : Past Medical History - General Information source: Patient - Social History Smoking Status: Never Smoker Chew tobacco use (# tins/day): No Frequency of alcohol use: Occasional Drug Abuse: None Family History: Reviewed & Not Pertinent, DM, Malignancy - Brother with Hodgkin' s lymphoma. Maternal grandfather with lung cancer., Other - sickle trait Patient has suicidal ideation: No Patient has homicidal ideation: No - Past Medical History Cardiac Medical History: Reports: Hx Hypertension, Hx Heart Murmur Denies: Hx Coronary Artery Disease, Hx Heart Attack Pulmonary Medical History: Reports: Hx Asthma, Hx Pneumonia - 2016 Denies: Hx Bronchitis, Hx COPD Neurological Medical History: Reports: Hx Migraine, Hx Seizures - HX OF. NO MEDICATIONS. Denies: Hx Cerebrovascular Accident Endocrine Medical History: Denies: Hx Diabetes Mellitus Type 2, Hx Hyperthyroidism, Hx Hypothyroidism Renal/ Medical History: Denies: Hx Peritoneal Dialysis GI Medical History: Reports: Hx Gastroesophageal Reflux Disease Musculoskeletal Medical History: Denies Hx Arthritis, Denies Hx Fibromyalgia Skin Medical History: Reports Hx MRSA Psychiatric Medical History: Reports: Hx Depression - 2014 Past Surgical History: Reports: Hx Adenoidectomy, Hx Cholecystectomy, Hx Oral Surgery - growth removed from under tongue, Hx Tonsillectomy, Other - Port placement 2 and removal for infection, multiple PICC lines, central l. Denies : Hx Hysterectomy, Hx Kidney (Renal Surgery), Hx Pacemaker - Immunizations Hx Diphtheria, Pertussis, Tetanus Vaccination: Yes Hx Pneumococcal Vaccination: 07/08/11 Vertical Provider Document - CONSTITUTIONAL Notes: PHYSICAL EXAMINATION: GENERAL: Well-appearing, well-nourished and in no acute distress. HEAD: Atraumatic, normocephalic. EYES: Pupils equal round extraocular movements intact, conjunctiva are normal. ENT: Nares patent NECK: Normal range of motion LUNGS: No respiratory distress Musculoskeletal: Normal range of motion NEUROLOGICAL: Normal speech, normal gait. PSYCH: Normal mood, normal affect. SKIN: Warm, Dry, normal turgor, no rashes or lesions noted. - INFECTION CONTROL TRAVEL OUTSIDE OF THE [place] IN LAST 30 DAYS: No Course - Re-evaluation Re-evalutation: Chest x-ray is negative for any acute findings. Patient will be treated symptomatically for bronchitis. Patient is agreeable to this plan. Patient given strict ED return precautions. - Vital Signs Vital signs: Temp Pulse Resp BP Pulse Ox 98.9 F 102 H 16 122/43 L 98 02/23/18 12:23 02/23/18 12:23 02/23/18 12:23 02/23/18 12:23 02/23/18 12:23 Discharge - Discharge Clinical Impression: Cough, Bronchitis Condition: Stable Disposition: HOME, SELF-CARE Additional Instructions: BRONCHITIS: You have acute bronchitis. This disease is an infection or inflammation of the air passageways in your lungs. Symptoms usually include cough, low grade fever, shortness of breath, and wheezing. The cough usually persists for a couple of weeks. Most cases of bronchitis get better without antibiotics. We prescribe antibiotics when we believe bacteria are damaging your airways, or if there's high risk the bronchitis will worsen into pneumonia. Increase your fluid intake. A cool mist humidifier may make your lungs more comfortable. An expectorant (cough medicine that loosens phlegm) can help. If you smoke, STOP!!! Recovery from bronchitis can be somewhat slow, but you should see improvement within a day or two. Repeated episodes of bronchitis may result in lung damage -- for example, chronic bronchitis, recurrent pneumonias, or emphysema. Call the doctor if you develop increasing fever, shortness of breath, chest pain, bloody sputum, or otherwise worsen. If you have not improved at all after several days, contact the physician. DECONGESTANT MEDICATION: A decongestant medicine has been recommended. Often this medicine is combined in the same tablet with an antihistamine or expectorant. This type of medicine is helpful in treating a bad cold or sinus condition, as well as in treatment of the nasal congestion of hay fever. It is not of much benefit for lung infections. Decongestant medicines are related to stimulants. They can cause an increase in blood pressure and heart rate. Persons with heart disease and high blood pressure should not take decongestants without discussing this with the physician. If you develop palpitations, chest pain, headache, or tremors, stop the medicine and consult your physician. COUGH-SUPPRESSANT & EXPECTORANT MEDICATION: You are to use a cough medication as needed for relief of symptoms. This medicine is a combination of an expectorant (to make the mucous thinner and more easily "coughed up") and a cough suppressant (to reduce the frequency of coughing). The cough-suppressant medicine is related to narcotics. You may experience mild nausea and sleepiness. Some patients who are very sensitive to narcotics may have stomach pain from this medicine. Taking the medicine with food reduces these side effects. Do not drive or work with machinery until you know how this medicine affects you. The expectorant should have no side effects. Iodine-containing expectorants (such as organidin) should not be taken by persons with active thyroid disease unless approved by your doctor. Call the doctor if you develop shortness of breath, hives, rash, itching, lightheadedness, or severe nausea and vomiting. SMOKING: If you smoke, you should stop smoking. The tar and chemicals in cigarette smoke are harmful. Smoking has been shown to cause: emphysema chronic bronchitis lung cancer mouth and throat cancer stomach and pancreas cancer premature aging defects In addition, smoking increases ear and lung infections in children of smokers. FOLLOW-UP CARE: If you have been referred to a physician for follow-up care, call the physician s office for an appointment as you were instructed or within the next two days. If you experience worsening or a significant change in your symptoms, notify the physician immediately or return to the Emergency Department at any time for re-evaluation. Prescriptions: Benzonatate [Tessalon Perles 100 mg Capsule] 100 mg PO Q8HP PRN #40 capsule PRN Reason: Referrals: BRUNA MENJIVAR MD [Primary Care Provider] - Follow up as needed
[2018-02-23] MEDS ORDERED: ALBUTEROL SULFATE HFA (90 MCG/PUFF) 8 GM MDI (1 MDI/ER DISP) IH ONE (13:51)
== END 2018-02-23 14:03 | disposition home or self-care (01) ==
LOC: ER 12:20
DX: J40 Bronchitis, not specified as acute or chronic (principal); R50.9 Fever, unspecified; I10 Essential (primary) hypertension; Z86.14 Personal history of Methicillin resistant Staphylococcus aureus infection; Z90.49 Acquired absence of other specified parts of digestive tract
CPT/HCPCS: 99283; 71046; J3490 ×2

== ENCOUNTER 2018-02-24 11:22 | Emergency (ER) | payer MEDICAID ==
[2018-02-24] MEDS ORDERED: HYDROMORPHONE HCL INJ/PF 2 MG/ML AMPULE IV ONE ×3 (13:41→19:00)
[2018-02-24] MEDS ORDERED: ONDANSETRON HCL INJ/PF 4 MG/2 ML SDV IV ONE (13:41)
[2018-02-24] MEDS ORDERED: NORMAL SALINE 1000 ML 1,000 ML IV ONE (13:41)
[2018-02-24] MEDS ORDERED: IPRATROPIUM/ALBUTEROL 0.5-2.5 MG/3 ML AMPUL NEB ONE ×2 (13:42→17:24)
--- NOTE | 2018-02-24 13:42 | ER Document Report ---
ED Medical Screen (RME) - General Chief Complaint: Weakness Stated Complaint: WEAKNESS Time Seen by Provider: 02/24/18 13:40 Mode of Arrival: Ambulatory Information source: Patient Notes: This is a 27-year-old female with a history of sickle cell disease as well as asthma presents to the emergency room with chest pain and wheezing. Patient's symptoms have been going on and off for the past 3 days. She was seen in the ER yesterday treated with nebulizer and inhaler and was returns with pain. TRAVEL OUTSIDE OF THE [place] IN LAST 30 DAYS: No - Related Data Allergies/Adverse Reactions: ceftriaxone sodium [From Rocephin] Allergy (Verified 02/24/18 13:41) Cephalosporins Allergy (Verified 02/24/18 13:41) milk [Milk] Allergy (Verified 02/24/18 13:41) Shellfish * [Shellfish] Allergy (Verified 02/24/18 13:41) wheat [Wheat] Allergy (Verified 02/24/18 13:41) Past Medical History - Social History Chew tobacco use (# tins/day): No Frequency of alcohol use: Occasional Drug Abuse: None Family history: None - Past Medical History Cardiac Medical History: Reports: Hx Hypertension, Hx Heart Murmur Denies: Hx Coronary Artery Disease, Hx Heart Attack Pulmonary Medical History: Reports: Hx Asthma, Hx Pneumonia - 2016 Denies: Hx Bronchitis, Hx COPD Neurological Medical History: Reports: Hx Migraine, Hx Seizures - HX OF. NO MEDICATIONS. Denies: Hx Cerebrovascular Accident Endocrine Medical History: Denies: Hx Diabetes Mellitus Type 2, Hx Hyperthyroidism, Hx Hypothyroidism Renal/ Medical History: Denies: Hx Peritoneal Dialysis GI Medical History: Reports: Hx Gastroesophageal Reflux Disease Musculoskeltal Medical History: Denies Hx Arthritis, Denies Hx Fibromyalgia Skin Medical History: Reports Hx MRSA Psychiatric Medical History: Reports: Hx Depression - 2014 Past Surgical History: Reports: Hx Adenoidectomy, Hx Cholecystectomy, Hx Oral Surgery - growth removed from under tongue, Hx Tonsillectomy, Other - Port placement 2 and removal for infection, multiple PICC lines, central l. Denies : Hx Hysterectomy, Hx Kidney (Renal Surgery), Hx Pacemaker - Immunizations Hx Diphtheria, Pertussis, Tetanus Vaccination: Yes History of Influenza Vaccine for 04/2017 - 09/2017 Season: Yes Influenza Administration Date for 04/2017 - 09/2017 Season: 03/22/17 Physical Exam - Vital signs Vitals: Temp Pulse Resp BP Pulse Ox 98.9 F 81 24 H 115/53 L 97 02/24/18 12:38 02/24/18 12:38 02/24/18 12:38 02/24/18 12:38 02/24/18 12:38 Course - Vital Signs Vital signs: Temp Pulse Resp BP Pulse Ox 98.9 F 81 24 H 115/53 L 97 02/24/18 12:38 02/24/18 12:38 02/24/18 12:38 02/24/18 12:38 02/24/18 12:38 Doctor's Discharge - Discharge Referrals: BRUNA MENJIVAR MD [Primary Care Provider] - Follow up as needed
[2018-02-24 14:53] LABS: APPEARANCE,URINE CLEAR; BILIRUBIN,URINE NEGATIVE (NEGATIVE); COLOR,URINE YELLOW; GLUCOSE, URINE NEGATIVE (NEGATIVE); KETONES,URINE NEGATIVE (NEGATIVE); LEUKOCYTE ESTERASE,URINE NEGATIVE (NEGATIVE); NITRITE,URINE NEGATIVE (NEGATIVE); PROTEIN,URINE NEGATIVE (NEGATIVE); URINE SPECIFIC GRAVITY 1.009; UROBILINOGEN,URINE NEGATIVE mg/dL (<2.0)
--- NOTE | 2018-02-24 16:11 | ER Document Report ---
ED General - General Chief Complaint: Weakness Stated Complaint: WEAKNESS Time Seen by Provider: 02/24/18 13:40 Mode of Arrival: Ambulatory Information source: Patient, [facility] Records Notes: 27-year-old female with sickle cell anemia, seizure disorder, hypertension, migraines presents with complaint of total body pain and shortness of breath. Patient states shortness of breath and pain started 3 days prior to arrival. She was seen yesterday in the emergency department for similar symptoms and discharged with an albuterol inhaler. She denies any fever, cough. States that her total body pain is typical of her sickle cell pain crisis. TRAVEL OUTSIDE OF THE [place] IN LAST 30 DAYS: No - HPI Onset: Other Onset/Duration: Gradual, Persistent, Worse Quality of pain: Achy, Throbbing Severity: Moderate Associated symptoms: Body/muscle aches, Shortness of breath. denies: Nonproductive cough, Productive cough, Fever, Headache, Nausea Exacerbated by: Denies Relieved by: Denies Similar symptoms previously: Yes Recently seen / treated by doctor: Yes - 02/23/18 - Related Data Allergies/Adverse Reactions: ceftriaxone sodium [From Rocephin] Allergy (Verified 02/24/18 13:41) Cephalosporins Allergy (Verified 02/24/18 13:41) milk [Milk] Allergy (Verified 02/24/18 13:41) Shellfish * [Shellfish] Allergy (Verified 02/24/18 13:41) wheat [Wheat] Allergy (Verified 02/24/18 13:41) Past Medical History - General Information source: Patient, [facility] Records - Social History Smoking Status: Never Smoker Chew tobacco use (# tins/day): No Frequency of alcohol use: Occasional Drug Abuse: None Lives with: Family Family History: Reviewed & Not Pertinent, DM, Malignancy - Brother with Hodgkin' s lymphoma. Maternal grandfather with lung cancer., Other - sickle trait Patient has suicidal ideation: No Patient has homicidal ideation: No - Past Medical History Cardiac Medical History: Reports: Hx Hypertension, Hx Heart Murmur Denies: Hx Coronary Artery Disease, Hx Heart Attack Pulmonary Medical History: Reports: Hx Asthma, Hx Pneumonia - 2017 Denies: Hx Bronchitis, Hx COPD Neurological Medical History: Reports: Hx Migraine, Hx Seizures - HX OF. NO MEDICATIONS. Denies: Hx Cerebrovascular Accident Endocrine Medical History: Denies: Hx Diabetes Mellitus Type 2, Hx Hyperthyroidism, Hx Hypothyroidism Renal/ Medical History: Denies: Hx Peritoneal Dialysis GI Medical History: Reports: Hx Gastroesophageal Reflux Disease Musculoskeletal Medical History: Denies Hx Arthritis, Denies Hx Fibromyalgia Skin Medical History: Reports Hx MRSA Psychiatric Medical History: Reports: Hx Depression - 2015 Past Surgical History: Reports: Hx Adenoidectomy, Hx Cholecystectomy, Hx Oral Surgery - growth removed from under tongue, Hx Tonsillectomy, Other - Port placement 2 and removal for infection, multiple PICC lines, central l. Denies : Hx Hysterectomy, Hx Kidney (Renal Surgery), Hx Pacemaker - Immunizations Hx Diphtheria, Pertussis, Tetanus Vaccination: Yes Hx Pneumococcal Vaccination: 07/08/11 Review of Systems - Review of Systems Constitutional: Weakness. denies: Fever EENT: denies: Blurred vision Cardiovascular: denies: Chest pain, Dizziness Respiratory: Short of breath, Wheezing Gastrointestinal: denies: Nausea, Vomiting Genitourinary: denies: Dysuria, Flank pain Female Genitourinary: No symptoms reported Musculoskeletal: Back pain, Muscle pain Skin: denies: Rash Hematologic/Lymphatic: No symptoms reported Neurological/Psychological: denies: Confusion, Seizure, Headaches -: Yes All other systems reviewed and negative Physical Exam - Vital signs Vitals: Temp Pulse Resp BP Pulse Ox 98.9 F 81 24 H 115/53 L 97 02/24/18 12:38 02/24/18 12:38 02/24/18 12:38 02/24/18 12:38 02/24/18 12:38 - Notes Notes: PHYSICAL EXAMINATION: GENERAL: Well-appearing, well-nourished and in no acute distress. HEAD: Atraumatic, normocephalic. EYES: Pupils equal round and reactive to light, extraocular movements intact, conjunctiva are normal. ENT: Nares patent, oropharynx clear without exudates. Moist mucous membranes. NECK: Normal range of motion, supple without lymphadenopathy LUNGS: Breath sounds clear to auscultation bilaterally and equal. No wheezes rales or rhonchi. HEART: Regular rate and rhythm without murmurs ABDOMEN: Soft, nontender, nondistended abdomen. No guarding, no rebound. No masses appreciated. Female : deferred Musculoskeletal: Normal range of motion, no pitting or edema. No cyanosis. NEUROLOGICAL: Cranial nerves grossly intact. Normal speech, normal gait. Normal sensory, motor exams PSYCH: Normal mood, normal affect. SKIN: Warm, Dry, normal turgor, no rashes or lesions noted. Course - Re-evaluation Re-evalutation: Laboratory 02/24/18 02/24/18 02/24/18 14:00 16:15 16:15 WBC 5.6 RBC 2.33 L Hgb 9.4 L Hct 26.7 L MCV 115 H MCH 40.5 H MCHC 35.3 RDW 17.2 H Plt Count 284 Total Counted 100 Seg Neutrophils % Not Reportable Seg Neuts % (Manual) 54 Lymphocytes % Not Reportable Lymphocytes % (Manual) 38 Monocytes % Not Reportable Monocytes % (Manual) 6 Eosinophils % Not Reportable Eosinophils % (Manual) 2 Basophils % Not Reportable Basophils % (Manual) 0 Absolute Neutrophils Not Reportable Abs Neuts (Manual) 3.0 Absolute Lymphocytes Not Reportable Abs Lymphs (Manual) 2.1 Absolute Monocytes Not Reportable Abs Monocytes (Manual) 0.3 Absolute Eosinophils Not Reportable Absolute Eos (Manual) 0.1 Absolute Basophils Not Reportable Abs Basophils (Manual) 0.0 Nucleated RBCs 2 Platelet Comment ADEQUATE Poikilocytosis 3+ Anisocytosis 1+ Macrocytosis 3+ Sickle Cells SLIGHT Target Cells 1+ Tear Drop Cells SLIGHT Ovalocytes 1+ Retic Count (auto) 3.02 H Absolute Retic 0.070 Sodium 141.1 Potassium 4.2 Chloride 105 Carbon Dioxide 23 Anion Gap 13 BUN 5 L Creatinine 0.43 L Est GFR ( Amer) > 60 Est GFR (Non-Af Amer) > 60 Glucose 104 Calcium 9.2 Total Bilirubin 1.0 Direct Bilirubin 0.2 Neonat Total Bilirubin Not Reportable Neonat Direct Bilirubin Not Reportable Neonat Indirect Bili Not Reportable AST 25 ALT 23 Alkaline Phosphatase 49 Total Protein 7.2 Albumin 4.3 Beta HCG, Quant < 2.39 Total Beta HCG NEGATIVE Urine Color YELLOW Urine Appearance CLEAR Urine pH 7.0 Ur Specific [place] 1.009 Urine Protein NEGATIVE Urine Glucose (UA) NEGATIVE Urine Ketones NEGATIVE Urine Blood NEGATIVE Urine Nitrite NEGATIVE Urine Bilirubin NEGATIVE Urine Urobilinogen NEGATIVE Ur Leukocyte Esterase NEGATIVE Urine WBC (Auto) 2 Urine RBC (Auto) 0 Squamous Epi Cells Auto 4 Urine Mucus (Auto) RARE Urine Ascorbic Acid NEGATIVE 02/25/18 22:28 27-year-old female with sickle cell anemia, seizure disorder, hypertension, migraines presents with complaint of total body pain and shortness of breath. Patient states shortness of breath and pain started 3 days prior to arrival. She was seen yesterday in the emergency department for similar symptoms and discharged with an albuterol inhaler. She denies any fever, cough. States that her total body pain is typical of her sickle cell pain crisis. Patient was seen by myself upon arrival. Vital signs were reviewed. Patient is afebrile , normotensive and not hypoxic. Patient does not appear toxic or dehydrated. They are in no acute distress. Previous medical records and nursing notes reviewed. CBC is without leukocytosis but does show anemia with a hemoglobin of 9.4 which is the patient's baseline. Patient does have an elevated reticulocyte count. Chest x-ray performed yesterday was reviewed and showed no concerning findings for acute chest syndrome. CMP is without electrolyte abnormalities. Patient did receive IV fluids, Dilaudid, breathing treatments, Solu-Medrol. On reevaluation patient states that her shortness of breath and pain have improved. Patient provided the opportunity to ask questions, and express concerns. Discharge instructions discussed. Patient is agreeable with discharge home. Return indications explained and discussed with the patient who displays understanding. Patient encouraged to return to the emergency department immediately with any concerns. 02/25/18 22:30 - Vital Signs Vital signs: Temp Pulse Resp BP Pulse Ox 98.2 F 81 19 128/72 H 100 02/24/18 18:59 02/24/18 12:38 02/24/18 19:01 02/24/18 19:00 02/24/18 19:01 - Laboratory Result Diagrams: 02/24/18 16:15 02/24/18 16:15 Laboratory results interpreted by me: 02/24/18 02/24/18 16:15 16:15 RBC 2.33 L Hgb 9.4 L Hct 26.7 L MCV 115 H MCH 40.5 H RDW 17.2 H Retic Count (auto) 3.02 H BUN 5 L Creatinine 0.43 L - Diagnostic Test Radiology reviewed: Image reviewed Discharge - Discharge Clinical Impression: Opiate dependence, continuous, Sickle cell pain crisis Dyspnea Qualifiers: Dyspnea type: unspecified Qualified Code(s): R06.00 - Dyspnea, unspecified Anemia Qualifiers: Anemia type: unspecified type Qualified Code(s): D64.9 - Anemia, unspecified Condition: Good Disposition: HOME, SELF-CARE Instructions: Anemia ([facility]), Asthma ([facility]), Sickle Cell Crisis ([facility]) Prescriptions: Prednisone 40 mg PO DAILY #10 tablet Referrals: BRUNA MENJIVAR MD [ACTIVE STAFF] - Follow up tomorrow
[2018-02-24 16:43] LABS: HEMATOCRIT 26.7 % (36.0-47.0); HEMOGLOBIN 9.4 g/dL (12.0-15.5); MEAN CORPUSCULAR HEMOGLOBIN 40.5 pg (27.0-33.4); MEAN CORPUSCULAR HGB CONC 35.3 g/dL (32.0-36.0); MEAN CORPUSCULAR VOLUME 115 fl (80-97); PLATELET COUNT 284 10^3/uL (150-450); RED BLOOD COUNT 2.33 10^6/uL (3.72-5.28); RED CELL DISTRIBUTION WIDTH 17.2 % (11.5-14.0); RETICULOCYTE COUNT (AUTO) 3.02 % (0.66-2.85); WHITE BLOOD COUNT 5.6 10^3/uL (4.0-10.5)
[2018-02-24 16:50] LABS: ALANINE AMINOTRANSFERASE 23 U/L (9-52); ALBUMIN 4.3 g/dL (3.5-5.0); ALKALINE PHOSPHATASE 49 U/L (38-126); ANION GAP 13 (5-19); ASPARTATE AMINO TRANSFERASE 25 U/L (14-36); BILIRUBIN,DIRECT 0.2 mg/dL (0.0-0.4); BLOOD UREA NITROGEN 5 mg/dL (7-20); CALCIUM 9.2 mg/dL (8.4-10.2); CARBON DIOXIDE 23 mmol/L (22-30); CHLORIDE 105 mmol/L (98-107); GLUCOSE 104 mg/dL (75-110); POTASSIUM 4.2 mmol/L (3.6-5.0); SODIUM 141.1 mmol/L (137-145); TOTAL PROTEIN 7.2 g/dL (6.3-8.2)
[2018-02-24 17:02] LABS: ABSOLUTE LYMPHOCYTES# (MANUAL) 2.1 10^3/uL (0.5-4.7); ABSOLUTE MONOCYTES # (MANUAL) 0.3 10^3/uL (0.1-1.4); BASOPHILS % (MANUAL) 0 % (0-2); EOSINOPHILS % (MANUAL) 2 % (0-6); LYMPHOCYTES % (MANUAL) 38 % (13-45); MONOCYTES % (MANUAL) 6 % (3-13); NUCLEATED RED BLOOD CELLS 2 /100 WBC (0); SEGMENTED NEUTROPHILS % (MAN) 54 % (42-78); TOTAL CELLS COUNTED 100
[2018-02-24 17:04] LABS: ANISOCYTOSIS 1+; OVALOCYTES 1+; PLATELET COMMENT ADEQUATE; POIKILOCYTOSIS 3+; SICKLE RED CELLS SLIGHT; TARGET CELLS 1+; TEAR DROP CELLS SLIGHT
[2018-02-24] MEDS ORDERED: MAGNESIUM SULFATE/D5W 1 GM/100 ML RTUPB IV ONE (17:22)
[2018-02-24] MEDS ORDERED: METHYLPREDNISOLONE INJ 125 MG/2 ML SDV IV ONE (17:22)
[2018-02-24 19:11] VITALS: BP 128/72
== END 2018-02-24 19:25 | disposition home or self-care (01) ==
LOC: ER 11:22
DX: D57.00 Hb-SS disease with crisis, unspecified (principal); F11.20 Opioid dependence, uncomplicated; I10 Essential (primary) hypertension; R53.1 Weakness; J45.909 Unspecified asthma, uncomplicated; R06.02 Shortness of breath; M54.9 Dorsalgia, unspecified; Z88.1 Allergy status to other antibiotic agents; Z91.011 Allergy to milk products; Z91.013 Allergy to seafood
CPT/HCPCS: 96376; 94640 ×2; 99285; 96361; 96375; 96365; 36415; 84702; 85025; 85045; 80053; 81001; J2930; J1170; J3475; J2405; J7030; J7620

== ENCOUNTER → 2018-04-07 | Outpatient (CLI) | payer MEDICAID ==
[~2018-04-07] MED LIST changes: -HYDROMORPHONE HCL INJ/PF 2 MG/ML AMPULE IV PRN; +HYDROMORPHONE HCL INJ/PF 2 MG/ML AMPULE ONE; -NORMAL SALINE 1000 ML 1,000 ML IV PRN; -PROMETHAZINE HCL INJ 25 MG/1 ML VIAL IV PRN; +PROMETHAZINE HCL INJ 25 MG/1 ML VIAL ONE
[2018-04-07 17:29] VITALS: BP 107/64
== END ==
LOC: ASU 15:35
PROVIDERS: ATTEND Internal Medicine
PROC: 3E033GC Introduction of Other Therapeutic Substance into Peripheral Vein, Percutaneous Approach (ICD-10-PCS; principal; 2018-04-07)
DX: D57.00 Hb-SS disease with crisis, unspecified (principal); E86.0 Dehydration; R11.0 Nausea; R52 Pain, unspecified
CPT/HCPCS: 96365; 96366; J1170; J2550; 96374; 96375

== ENCOUNTER 2018-04-09 10:14 | Outpatient (CLI) | payer MEDICAID ==
[~2018-04-09 10:14] MED LIST changes: +HYDROMORPHONE HCL INJ/PF 2 MG/ML AMPULE IV PRN; -HYDROMORPHONE HCL INJ/PF 2 MG/ML AMPULE ONE; +NORMAL SALINE 1000 ML 1,000 ML IV PRN; +PROMETHAZINE HCL INJ 25 MG/1 ML VIAL IV PRN; -PROMETHAZINE HCL INJ 25 MG/1 ML VIAL ONE
[2018-04-09 11:09] VITALS: BP 122/57
== END 2018-04-09 12:39 | disposition home or self-care (01) ==
LOC: II 10:14 → 5TH 10:16 → II 12:39
PROVIDERS: ATTEND Internal Medicine
PROC: 3E033GC Introduction of Other Therapeutic Substance into Peripheral Vein, Percutaneous Approach (ICD-10-PCS; principal; 2018-04-09)
PROC: 3E0337Z Introduction of Electrolytic and Water Balance Substance into Peripheral Vein, Percutaneous Approach (ICD-10-PCS; 2018-04-09)
DX: D57.00 Hb-SS disease with crisis, unspecified (principal); R52 Pain, unspecified; E86.0 Dehydration; R11.0 Nausea
CPT/HCPCS: 96360; 96361; 96374; 96375

== ENCOUNTER 2018-04-11 10:13 | Outpatient (CLI) | payer MEDICAID ==
[2018-04-11 10:32] VITALS: BP 104/55
== END 2018-04-11 12:30 | disposition home or self-care (01) ==
LOC: II 10:13 → 5TH 10:47 → II 12:30
PROVIDERS: ATTEND Internal Medicine
PROC: 3E0337Z Introduction of Electrolytic and Water Balance Substance into Peripheral Vein, Percutaneous Approach (ICD-10-PCS; principal; 2018-04-11)
PROC: 3E033GC Introduction of Other Therapeutic Substance into Peripheral Vein, Percutaneous Approach (ICD-10-PCS; 2018-04-11)
DX: D57.00 Hb-SS disease with crisis, unspecified (principal); E86.0 Dehydration; R11.0 Nausea; R52 Pain, unspecified
CPT/HCPCS: 96375; 96360; J1170; J2550; 96374

== ENCOUNTER 2018-04-15 11:01 | Outpatient (CLI) | payer MEDICAID ==
[2018-04-15] MEDS ORDERED: NORMAL SALINE 1000 ML 1,000 ML IV PRN ×2 (11:24→11:43)
[2018-04-15] MEDS ORDERED: HYDROMORPHONE HCL INJ/PF 2 MG/ML AMPULE IV PRN (11:25)
[2018-04-15] MEDS ORDERED: PROMETHAZINE HCL INJ 25 MG/1 ML VIAL IV PRN (11:26)
[2018-04-15 11:28] VITALS: BP 108/53
== END 2018-04-15 12:54 | disposition home or self-care (01) ==
LOC: II 11:01 → 5TH 11:08 → II 12:54
PROVIDERS: ATTEND Internal Medicine
PROC: 3E0337Z Introduction of Electrolytic and Water Balance Substance into Peripheral Vein, Percutaneous Approach (ICD-10-PCS; principal; 2018-04-15)
PROC: 3E033GC Introduction of Other Therapeutic Substance into Peripheral Vein, Percutaneous Approach (ICD-10-PCS; 2018-04-15)
DX: D57.00 Hb-SS disease with crisis, unspecified (principal); E86.0 Dehydration; R11.0 Nausea; R52 Pain, unspecified
CPT/HCPCS: 96375; 96360; J1170; J2550; 96374

== ENCOUNTER 2018-04-17 11:25 | Outpatient (CLI) | payer MEDICAID ==
[2018-04-17 11:48] VITALS: BP 118/62
== END 2018-04-17 13:05 | disposition home or self-care (01) ==
LOC: II 11:25 → 5TH 11:34 → II 13:05
PROVIDERS: ATTEND Internal Medicine
PROC: 3E0337Z Introduction of Electrolytic and Water Balance Substance into Peripheral Vein, Percutaneous Approach (ICD-10-PCS; principal; 2018-04-17)
PROC: 3E033GC Introduction of Other Therapeutic Substance into Peripheral Vein, Percutaneous Approach (ICD-10-PCS; 2018-04-17)
DX: D57.00 Hb-SS disease with crisis, unspecified (principal); E86.0 Dehydration; R11.0 Nausea; R52 Pain, unspecified
CPT/HCPCS: 96374; 96375; 96361; J1170; J2550; 96360

== ENCOUNTER 2018-05-08 12:27 | Outpatient (CLI) | payer MEDICAID ==
[2018-05-08 12:49] VITALS: BP 120/67
[2018-05-08] MEDS ORDERED: NORMAL SALINE 1000 ML 1,000 ML IV PRN (12:58)
[2018-05-08] MEDS ORDERED: HYDROMORPHONE HCL INJ/PF 2 MG/ML AMPULE IV PRN (12:59)
[2018-05-08] MEDS ORDERED: PROMETHAZINE HCL INJ 25 MG/1 ML VIAL IV PRN (13:00)
== END 2018-05-08 14:47 | disposition home or self-care (01) ==
LOC: II 12:27 → 5TH 12:42 → II 14:47
PROVIDERS: ATTEND Internal Medicine
PROC: 3E033GC Introduction of Other Therapeutic Substance into Peripheral Vein, Percutaneous Approach (ICD-10-PCS; principal; 2018-05-08)
PROC: 3E0337Z Introduction of Electrolytic and Water Balance Substance into Peripheral Vein, Percutaneous Approach (ICD-10-PCS; 2018-05-08)
DX: D57.00 Hb-SS disease with crisis, unspecified (principal); E86.0 Dehydration; R11.0 Nausea; R52 Pain, unspecified
CPT/HCPCS: 96375; 96360; J1170; J2550; 96361; 96374

== ENCOUNTER → 2018-05-08 | Outpatient (CLI) | payer MEDICAID ==
--- NOTE | 2018-05-08 12:21 | RADIOLOGY REPORT (SQ) ---
EXAM DESCRIPTION: VENOUS UNILATERAL UPPER COMPLETED DATE/TIME: 05/08/2018 12:11 pm REASON FOR STUDY: SWELLING R22.31 LOCALIZED SWELLING, MASS AND LUMP, RIGHT UPPER LIMB COMPARISON: 04/09/2017 TECHNIQUE: Dynamic and static husain scale and color images acquired of the right arm venous system. S elected spectral images acquired with additional compression and augmentation maneuvers. The contrala teral subclavian vein and internal jugular vein were not imaged. Images stored on PACS. LIMITATIONS: None. FINDINGS: INTERNAL JUGULAR VEIN: Normal phasicity, compression, augmentation. No visualized echogeni c material on husain scale. No defects on color images. Comparison opposite side normal. SUBCLAVIAN VEIN: Normal compression, augmentation. No visualized echogenic material on husain scale. No defects on color images. AXILLARY VEIN: Normal compression, augmentation. No visualized echogenic material on husain scale. No d efects on color images. BRACHIAL VEIN: Normal compression, augmentation. No visualized echogenic material on husain scale. No d efects on color images. BASILIC VEIN: Normal compression, augmentation. No visualized echogenic material on husain scale. No de fects on color images. CEPHALIC VEIN: Normal compression, augmentation. No visualized echogenic material on husain scale. No d efects on color images. OTHER: No other significant finding. CONTRALATERAL SUBCLAVIAN VEIN AND INTERNAL JUGULAR VEIN: Not imaged. IMPRESSION: NO EVIDENCE DVT OR SVT IN THE RIGHT ARM. TECHNICAL DOCUMENTATION: JOB ID: [id number] [employer]- All Rights Reserved Reading location - IP/workstation name: [facility]
== END ==
LOC: SP 11:06
PROVIDERS: ATTEND Physician Assistant Medical
DX: R22.31 Localized swelling, mass and lump, right upper limb (principal); M79.601 Pain in right arm
CPT/HCPCS: 93971

== ENCOUNTER 2018-05-13 08:52 | Outpatient (CLI) | payer MEDICAID ==
[2018-05-13 09:21] VITALS: BP 117/59
== END 2018-05-13 11:40 | disposition home or self-care (01) ==
LOC: II 08:52 → 5TH 08:53 → II 11:40
PROVIDERS: ATTEND Internal Medicine
PROC: 3E033GC Introduction of Other Therapeutic Substance into Peripheral Vein, Percutaneous Approach (ICD-10-PCS; principal; 2018-05-13)
PROC: 3E0337Z Introduction of Electrolytic and Water Balance Substance into Peripheral Vein, Percutaneous Approach (ICD-10-PCS; 2018-05-13)
DX: D57.00 Hb-SS disease with crisis, unspecified (principal); E86.0 Dehydration; R11.0 Nausea; R52 Pain, unspecified
CPT/HCPCS: 96361; 96365; 96374; 96375

== ENCOUNTER 2018-05-18 16:41 | Emergency (ER) | payer MEDICAID ==
[2018-05-18] MEDS ORDERED: ONDANSETRON HCL INJ/PF 4 MG/2 ML SDV IV ONE (16:58)
[2018-05-18] MEDS ORDERED: HYDROMORPHONE HCL INJ/PF 2 MG/ML AMPULE IV ONE ×2 (16:58→19:04)
--- NOTE | 2018-05-18 17:00 | ER Document Report ---
ED Medical Screen (RME) - General Chief Complaint: Sickle Cell Crisis Stated Complaint: BODY PAIN/DIARRHEA Time Seen by Provider: 05/18/18 16:58 Mode of Arrival: Ambulatory Information source: Patient TRAVEL OUTSIDE OF THE [place] IN LAST 30 DAYS: No - HPI Patient complains to provider of: sickle cell crisis Onset: Yesterday - pt with c/o LBP and diarrhea, H/o SCD. PCP is Dr. Daugherty - Related Data Allergies/Adverse Reactions: ceftriaxone sodium [From Rocephin] Allergy (Verified 05/05/18 08:48) Cephalosporins Allergy (Verified 05/05/18 08:48) milk [Milk] Allergy (Verified 05/05/18 08:48) Shellfish * [Shellfish] Allergy (Verified 05/05/18 08:48) wheat [Wheat] Allergy (Verified 05/05/18 08:48) Past Medical History - Social History Family history: None - Past Medical History Cardiac Medical History: Reports: Hx Hypertension, Hx Heart Murmur Denies: Hx Coronary Artery Disease, Hx Heart Attack Pulmonary Medical History: Reports: Hx Asthma, Hx Pneumonia - 2016 Denies: Hx Bronchitis, Hx COPD Neurological Medical History: Reports: Hx Migraine, Hx Seizures - HX OF. NO MEDICATIONS. Denies: Hx Cerebrovascular Accident Endocrine Medical History: Denies: Hx Diabetes Mellitus Type 2, Hx Hyperthyroidism, Hx Hypothyroidism Renal/ Medical History: Denies: Hx Peritoneal Dialysis GI Medical History: Reports: Hx Gastroesophageal Reflux Disease Musculoskeltal Medical History: Denies Hx Arthritis, Denies Hx Fibromyalgia Skin Medical History: Reports Hx MRSA Psychiatric Medical History: Reports: Hx Depression - 2014 Past Surgical History: Reports: Hx Adenoidectomy, Hx Cholecystectomy, Hx Oral Surgery - growth removed from under tongue, Hx Tonsillectomy, Other - Port placement 2 and removal for infection, multiple PICC lines, central l. Denies : Hx Hysterectomy, Hx Kidney (Renal Surgery), Hx Pacemaker - Immunizations Hx Diphtheria, Pertussis, Tetanus Vaccination: Yes History of Influenza Vaccine for 04/2017 - 09/2017 Season: Yes Influenza Administration Date for 04/2017 - 09/2017 Season: 03/22/17 Physical Exam - Vital signs Vitals: Temp Pulse Resp BP Pulse Ox 98.3 F 75 18 123/64 98 05/18/18 16:46 05/18/18 16:46 05/18/18 16:46 05/18/18 16:46 05/18/18 16:46 Course - Vital Signs Vital signs: Temp Pulse Resp BP Pulse Ox 98.3 F 75 18 123/64 98 05/18/18 16:46 05/18/18 16:46 05/18/18 16:46 05/18/18 16:46 05/18/18 16:46 Doctor's Discharge - Discharge Referrals: SAVITA STUART, PAJayleneC [Primary Care Provider] - Follow up as needed
--- NOTE | 2018-05-18 17:42 | ER Document Report ---
ED General - General Chief Complaint: Sickle Cell Crisis Stated Complaint: BODY PAIN/DIARRHEA Time Seen by Provider: 05/18/18 16:58 Mode of Arrival: Ambulatory Notes: Patient is a 27-year-old female with sickle cell disease that presents to the emergency department for chief complaint of back pain, and leg pain. She also reports she is been having nausea, vomiting and diarrhea over the last few days. Denies any consumption of undercooked foods such as sushi, or undercooked hamburgers. She has been taking her home pain medications without relief of her pain so she decided come to the emergency department. She currently rates her pain as an 8 out of 10, mostly in the lower mid back, and bilateral thighs which is typical for her sickle cell pain. She denies noting any fevers, chills, night sweats, chest pain, shortness of breath or difficulty breathing. Past Medical History: Sickle cell disease Past Surgical History: Cholecystectomy, tonsillectomy, Mediport placement and removal Social History: Admits to occasional alcohol use, denies tobacco or illicit drug use. Family History: Reviewed and noncontributory for presenting illness Allergies: Reviewed, see documented allergy list. REVIEW OF SYSTEMS: Other than noted above, the 12 point review of systems was reviewed with the patient and were negative, all pertinent findings are included in the HPI. PHYSICAL EXAMINATION: Vital signs reviewed, nursing noted reviewed. GENERAL: Well-appearing, well-nourished and in no acute distress. HEAD: Atraumatic, normocephalic. EYES: Eyes appear normal, extraocular movements intact, sclera anicteric, conjunctiva are normal. ENT: nares patent, oropharynx clear without exudates. Moist mucous membranes. NECK: Normal range of motion, supple without lymphadenopathy LUNGS: Breath sounds clear to auscultation bilaterally and equal. No wheezes rales or rhonchi. HEART: Regular rate and rhythm without murmurs ABDOMEN: Soft, nontender, normoactive bowel sounds. No rebound, guarding, or rigidity. No masses appreciated. EXTREMITIES: Nontender, good range of motion, no pitting or edema. NEUROLOGICAL: No focal neurological deficits. Moves all extremities spontaneously Motor and sensory grossly intact on exam. PSYCH: Normal mood, normal affect. SKIN: Warm, Dry, normal turgor, no rashes or lesions noted on exposed skin TRAVEL OUTSIDE OF THE [place] IN LAST 30 DAYS: No - Related Data Allergies/Adverse Reactions: ceftriaxone sodium [From Rocephin] Allergy (Verified 05/05/18 08:48) Cephalosporins Allergy (Verified 05/05/18 08:48) milk [Milk] Allergy (Verified 05/05/18 08:48) Shellfish * [Shellfish] Allergy (Verified 05/05/18 08:48) wheat [Wheat] Allergy (Verified 05/05/18 08:48) Past Medical History - General Information source: Patient - Social History Smoking Status: Never Smoker Frequency of alcohol use: Occasional Family History: Reviewed & Not Pertinent, DM, Malignancy - Brother with Hodgkin' s lymphoma. Maternal grandfather with lung cancer., Other - sickle trait in Mother and Father Patient has suicidal ideation: No Patient has homicidal ideation: No - Past Medical History Cardiac Medical History: Reports: Hx Hypertension, Hx Heart Murmur Denies: Hx Coronary Artery Disease, Hx Heart Attack Pulmonary Medical History: Reports: Hx Asthma, Hx Pneumonia - 2016 Denies: Hx Bronchitis, Hx COPD Neurological Medical History: Reports: Hx Migraine, Hx Seizures - HX OF. NO MEDICATIONS. Denies: Hx Cerebrovascular Accident Endocrine Medical History: Denies: Hx Diabetes Mellitus Type 2, Hx Hyperthyroidism, Hx Hypothyroidism Renal/ Medical History: Denies: Hx Peritoneal Dialysis GI Medical History: Reports: Hx Gastroesophageal Reflux Disease Musculoskeletal Medical History: Denies Hx Arthritis, Denies Hx Fibromyalgia Skin Medical History: Reports Hx MRSA Psychiatric Medical History: Reports: Hx Depression - 2014 Past Surgical History: Reports: Hx Adenoidectomy, Hx Cholecystectomy, Hx Oral Surgery - growth removed from under tongue, Hx Tonsillectomy, Other - Port placement 2 and removal for infection, multiple PICC lines, central l. Denies : Hx Hysterectomy, Hx Kidney (Renal Surgery), Hx Pacemaker - Immunizations Hx Diphtheria, Pertussis, Tetanus Vaccination: Yes Hx Pneumococcal Vaccination: 07/08/11 Physical Exam - Vital signs Vitals: Temp Pulse Resp BP Pulse Ox 98.3 F 75 18 123/64 98 05/18/18 16:46 05/18/18 16:46 05/18/18 16:46 05/18/18 16:46 05/18/18 16:46 Course - Re-evaluation Re-evalutation: Patient seen and examined vital signs reviewed. Laboratory data and imaging were ordered as appropriate for the patient's presenting symptoms and complaint, with consideration of any critical or life threatening conditions that may be associated with their obtained history and exam as noted above. Patient was treated with IV fluids, Zofran, Dilaudid Results were reviewed when available and demonstrated tolerable anemia, 11 hemoglobin, elevated reticulocyte count, no aplastic crisis The patient was re-evaluated and was still having some pain, additional 1 mg of IV Dilaudid was administered, patient was then reevaluated again in much improved, and was ready to be discharged Evaluation was most consistent with sickle cell pain crisis, nausea, vomiting and diarrhea, patient is given a prescription for Zofran 4 mg ODT to take as needed every 8 hours for nausea and vomiting at home. Results were discussed with the patient at this point, after careful consideration I feel that that patient can be discharged from the emergency department, the patient was educated treatments and reasons to return to the emergency department based on their presumed diagnosis as noted above, they were advised to followup with a primary care physician in 2-3 days. Patient was agreeable to plan of care. *Note is created using voice recognition software and may contain spelling, syntax or grammatical errors. Laboratory 05/18/18 05/18/18 05/18/18 17:22 17:22 17:22 WBC 9.8 RBC 3.28 L Hgb 11.3 L Hct 33.4 L MCV 102 H MCH 34.5 H MCHC 33.8 RDW 19.0 H Plt Count 325 Seg Neutrophils % 52.6 Lymphocytes % 34.3 Monocytes % 10.2 Eosinophils % 1.2 Basophils % 1.7 Absolute Neutrophils 5.2 Absolute Lymphocytes 3.4 Absolute Monocytes 1.0 Absolute Eosinophils 0.1 Absolute Basophils 0.2 Toxic Granulation SLIGHT Platelet Comment ADEQUATE Polychromasia SLIGHT Poikilocytosis 2+ Anisocytosis 2+ Macrocytosis 1+ Sickle Cells 1+ Target Cells SLIGHT Ovalocytes SLIGHT Retic Count (auto) 5.47 H Absolute Retic 0.179 H Sodium 141.2 Potassium 4.5 Chloride 104 Carbon Dioxide 26 Anion Gap 11 BUN 8 Creatinine 0.58 Est GFR ( Amer) > 60 Est GFR (Non-Af Amer) > 60 Glucose 83 Calcium 9.5 Total Bilirubin 1.7 H Direct Bilirubin 0.4 Neonat Total Bilirubin Not Reportable Neonat Direct Bilirubin Not Reportable Neonat Indirect Bili Not Reportable AST 60 H ALT 48 Alkaline Phosphatase 54 Total Protein 7.6 Albumin 4.7 Urine Color YELLOW Urine Appearance SLIGHTLY-CLOUDY Urine pH 6.0 Ur Specific [place] 1.011 Urine Protein NEGATIVE Urine Glucose (UA) NEGATIVE Urine Ketones NEGATIVE Urine Blood NEGATIVE Urine Nitrite NEGATIVE Urine Bilirubin NEGATIVE Urine Urobilinogen NEGATIVE Ur Leukocyte Esterase NEGATIVE Urine WBC (Auto) 1 Urine RBC (Auto) 0 Squamous Epi Cells Auto 3 Urine Mucus (Auto) RARE Urine Ascorbic Acid NEGATIVE Urine HCG, Qual NEGATIVE - Vital Signs Vital signs: Temp Pulse Resp BP Pulse Ox 98.4 F 81 18 120/76 99 05/18/18 20:00 05/18/18 20:00 05/18/18 20:00 05/18/18 20:00 05/18/18 20:00 - Laboratory Result Diagrams: 05/18/18 17:22 05/18/18 17:22 Laboratory results interpreted by me: 05/18/18 05/18/18 17:22 17:22 RBC 3.28 L Hgb 11.3 L Hct 33.4 L MCV 102 H MCH 34.5 H RDW 19.0 H Retic Count (auto) 5.47 H Absolute Retic 0.179 H Total Bilirubin 1.7 H AST 60 H Discharge - Discharge Clinical Impression: Sickle cell pain crisis Nausea & vomiting Qualifiers: Vomiting type: unspecified Vomiting Intractability: non-intractable Qualified Code(s): R11.2 - Nausea with vomiting, unspecified Diarrhea Qualifiers: Diarrhea type: unspecified type Qualified Code(s): R19.7 - Diarrhea, unspecified Condition: Stable Disposition: HOME, SELF-CARE Instructions: Diarrhea, Nonspecific ([facility]), Vomiting ([facility]) Additional Instructions: Please return to the emergency department if you have any worsening, or concern of your symptoms. Please return to the emergency department if you develop chest pain, difficulty breathing, severe abdominal pain, or ongoing vomiting. Please follow-up with your primary care physician in 2-3 days and any other recommended physicians. If prescribed, take all medications as directed. If you have any questions or concerns do not hesitate to return the emergency department for evaluation. Prescriptions: Ondansetron [Zofran Odt 4 mg Tablet] 1 tab PO Q8H PRN #15 tab.rapdis PRN Reason: For Nausea/Vomiting Referrals: SAVITA STUART PA-C [Primary Care Provider] - Follow up in 3-5 days
[2018-05-18] MEDS ORDERED: NORMAL SALINE 1000 ML 1,000 ML IV ONE (17:49)
[2018-05-18 17:50] LABS: ABSOLUTE BASOPHILS # (AUTO) 0.2 10^3/uL (0.0-0.2); ABSOLUTE EOSINOPHILS # (AUTO) 0.1 10^3/uL (0.0-0.6); ABSOLUTE LYMPHOCYTES (AUTO) 3.4 10^3/uL (0.5-4.7); ABSOLUTE NEUT (AUTO) 5.2 10^3/uL (1.7-8.2); ABSOLUTE RETICS # 0.179 10^6/uL (0.028-0.122); BASOPHILS % (AUTO) 1.7 % (0-2); EOSINOPHILS % (AUTO) 1.2 % (0-6); HEMATOCRIT 33.4 % (36.0-47.0); HEMOGLOBIN 11.3 g/dL (12.0-15.5); LYMPHOCYTES % (AUTO) 34.3 % (13-45); MEAN CORPUSCULAR HEMOGLOBIN 34.5 pg (27.0-33.4); MEAN CORPUSCULAR HGB CONC 33.8 g/dL (32.0-36.0); MEAN CORPUSCULAR VOLUME 102 fl (80-97); MONOCYTES % (AUTO) 10.2 % (3-13); PLATELET COUNT 325 10^3/uL (150-450); RED BLOOD COUNT 3.28 10^6/uL (3.72-5.28); RETICULOCYTE COUNT (AUTO) 5.47 % (0.66-2.85); SEGMENTED NEUTROPHILS % (AUTO) 52.6 % (42-78); TOTAL CELLS COUNTED % (AUTO) 100 %; WHITE BLOOD COUNT 9.8 10^3/uL (4.0-10.5)
[2018-05-18 17:51] LABS: APPEARANCE,URINE SLIGHTLY-CLOUDY; BILIRUBIN,URINE NEGATIVE (NEGATIVE); COLOR,URINE YELLOW; GLUCOSE, URINE NEGATIVE (NEGATIVE); KETONES,URINE NEGATIVE (NEGATIVE); LEUKOCYTE ESTERASE,URINE NEGATIVE (NEGATIVE); NITRITE,URINE NEGATIVE (NEGATIVE); PROTEIN,URINE NEGATIVE (NEGATIVE); URINE SPECIFIC GRAVITY 1.011; UROBILINOGEN,URINE NEGATIVE mg/dL (<2.0)
[2018-05-18 18:07] LABS: ALANINE AMINOTRANSFERASE 48 U/L (9-52); ALBUMIN 4.7 g/dL (3.5-5.0); ALKALINE PHOSPHATASE 54 U/L (38-126); ANION GAP 11 (5-19); ASPARTATE AMINO TRANSFERASE 60 U/L (14-36); BILIRUBIN,DIRECT 0.4 mg/dL (0.0-0.4); BILIRUBIN,TOTAL 1.7 mg/dL (0.2-1.3); BLOOD UREA NITROGEN 8 mg/dL (7-20); CALCIUM 9.5 mg/dL (8.4-10.2); CARBON DIOXIDE 26 mmol/L (22-30); CHLORIDE 104 mmol/L (98-107); GLUCOSE 83 mg/dL (75-110); POTASSIUM 4.5 mmol/L (3.6-5.0); SODIUM 141.2 mmol/L (137-145); TOTAL PROTEIN 7.6 g/dL (6.3-8.2)
[2018-05-18 18:12] LABS: ANISOCYTOSIS 2+; OVALOCYTES SLIGHT; POIKILOCYTOSIS 2+; POLYCHROMASIA SLIGHT; SICKLE RED CELLS 1+; TARGET CELLS SLIGHT; TOXIC GRANULATION SLIGHT
[2018-05-18 18:13] LABS: PLATELET COMMENT ADEQUATE
[2018-05-18 20:18] VITALS: BP 120/76
== END 2018-05-18 20:04 | disposition home or self-care (01) ==
LOC: ER 16:41
DX: D57.00 Hb-SS disease with crisis, unspecified (principal); R11.2 Nausea with vomiting, unspecified; R19.7 Diarrhea, unspecified; M54.5 Low back pain; M79.652 Pain in left thigh; M79.651 Pain in right thigh; I10 Essential (primary) hypertension; J45.909 Unspecified asthma, uncomplicated; Z88.1 Allergy status to other antibiotic agents; Z91.011 Allergy to milk products; Z91.013 Allergy to seafood; Z91.018 Allergy to other foods
CPT/HCPCS: 96376; 99284; 96361; 96374; 96375; 36415; 85025; 81025; 85045; 80053; 81001; J1170; J2405; J7030

== ENCOUNTER 2018-05-23 17:26 | Inpatient (IN) | payer MEDICAID ==
[2018-05-23] MEDS ORDERED: NORMAL SALINE 1000 ML 1,000 ML IV ONE (18:15)
[2018-05-23] MEDS ORDERED: OXYCODONE HCL IR 5 MG TABLET PO ONE (18:16)
--- NOTE | 2018-05-23 18:17 | ER Document Report ---
ED Medical Screen (RME) - General Chief Complaint: Sickle Cell Crisis Stated Complaint: CHEST PAIN Time Seen by Provider: 05/23/18 17:56 Notes: 27-year-old -[place] female history of sickle cell disease complaining of chest pain. States that she is never had pain in the chest this bad. Followed by oncology/hematology, Dr. Conrad Davis have greeted and performed a rapid initial assessment of this patient. A comprehensive ED assessment and evaluation of the patient, analysis of test results and completion of the medical decision making process will be conducted by additional ED providers. TRAVEL OUTSIDE OF THE [place] IN LAST 30 DAYS: No - Related Data Allergies/Adverse Reactions: ceftriaxone sodium [From Rocephin] Allergy (Verified 05/05/18 08:48) Cephalosporins Allergy (Verified 05/05/18 08:48) milk [Milk] Allergy (Verified 05/05/18 08:48) Shellfish * [Shellfish] Allergy (Verified 05/05/18 08:48) wheat [Wheat] Allergy (Verified 05/05/18 08:48) Past Medical History - Social History Family history: None - Past Medical History Cardiac Medical History: Reports: Hx Hypertension, Hx Heart Murmur Denies: Hx Coronary Artery Disease, Hx Heart Attack Pulmonary Medical History: Reports: Hx Asthma, Hx Pneumonia - 2016 Denies: Hx Bronchitis, Hx COPD Neurological Medical History: Reports: Hx Migraine, Hx Seizures - HX OF. NO MEDICATIONS. Denies: Hx Cerebrovascular Accident Endocrine Medical History: Denies: Hx Diabetes Mellitus Type 2, Hx Hyperthyroidism, Hx Hypothyroidism Renal/ Medical History: Denies: Hx Peritoneal Dialysis GI Medical History: Reports: Hx Gastroesophageal Reflux Disease Musculoskeltal Medical History: Denies Hx Arthritis, Denies Hx Fibromyalgia Skin Medical History: Reports Hx MRSA Psychiatric Medical History: Reports: Hx Depression - 2014 Past Surgical History: Reports: Hx Adenoidectomy, Hx Cholecystectomy, Hx Oral Surgery - growth removed from under tongue, Hx Tonsillectomy, Other - Port placement 2 and removal for infection, multiple PICC lines, central l. Denies : Hx Hysterectomy, Hx Kidney (Renal Surgery), Hx Pacemaker - Immunizations Hx Diphtheria, Pertussis, Tetanus Vaccination: Yes History of Influenza Vaccine for 04/2017 - 09/2017 Season: Yes Influenza Administration Date for 04/2017 - 09/2017 Season: 03/22/17 Physical Exam - Vital signs Vitals: Temp Pulse Resp BP Pulse Ox 98.4 F 74 22 H 128/62 H 99 05/23/18 17:32 05/23/18 17:32 05/23/18 17:32 05/23/18 17:32 05/23/18 17:32 - Respiratory Respiratory status: No respiratory distress Chest status: Nontender Breath sounds: Normal Chest palpation: Normal - Cardiovascular Rhythm: Regular Heart sounds: Normal auscultation Murmur: No - Abdominal Inspection: Normal Distension: No distension Bowel sounds: Normal Tenderness: Nontender Organomegaly: No organomegaly Course - Vital Signs Vital signs: Temp Pulse Resp BP Pulse Ox 98.4 F 74 22 H 128/62 H 99 05/23/18 17:32 05/23/18 17:32 05/23/18 17:32 05/23/18 17:32 05/23/18 17:32 Doctor's Discharge - Discharge Referrals: SAVITA STUART, ANA LUISA [Primary Care Provider] - Follow up as needed
--- NOTE | 2018-05-23 18:44 | RADIOLOGY REPORT (SQ) ---
EXAM DESCRIPTION: CHEST 2 VIEWS COMPLETED DATE/TIME: 05/23/2018 6:34 pm REASON FOR STUDY: chest pain COMPARISON: 05/05/2018 EXAM PARAMETERS: NUMBER OF VIEWS: two views TECHNIQUE: Digital Frontal and Lateral radiographic views of the chest acquired. RADIATION DOSE: NA LIMITATIONS: none FINDINGS: LUNGS AND PLEURA: Cannot exclude limited retrocardiac infiltrate. The medial aspect of th e left hemidiaphragm is blurred. There is slightly increased opacification seen posteriorly on the l ateral view. MEDIASTINUM AND HILAR STRUCTURES: No masses or contour abnormalities. HEART AND VASCULAR STRUCTURES: Heart normal size. No evidence for failure. BONES: No acute findings. HARDWARE: None in the chest. OTHER: No other significant finding. IMPRESSION: Cannot exclude a limited left lower lobe pneumonia. TECHNICAL DOCUMENTATION: JOB ID: [id number] [employer]- All Rights Reserved Reading location - IP/workstation name: [email or web address]
[2018-05-23] MEDS ORDERED: FENTANYL CITRATE INJ/PF 100 MCG/2 ML AMPUL IM ONE (19:45)
[2018-05-23] MEDS: HYDROMORPHONE HCL INJ/PF 2 MG/ML AMPULE IV PRN ×2 (21:40→23:22)
[2018-05-23 21:43] LABS: ABSOLUTE BASOPHILS # (AUTO) 0.2 10^3/uL (0.0-0.2); ABSOLUTE EOSINOPHILS # (AUTO) 0.2 10^3/uL (0.0-0.6); ABSOLUTE LYMPHOCYTES (AUTO) 3.5 10^3/uL (0.5-4.7); ABSOLUTE MONOCYTES (AUTO) 1.3 10^3/uL (0.1-1.4); ABSOLUTE NEUT (AUTO) 8.2 10^3/uL (1.7-8.2); ABSOLUTE RETICS # 0.174 10^6/uL (0.028-0.122); BASOPHILS % (AUTO) 1.3 % (0-2); EOSINOPHILS % (AUTO) 1.2 % (0-6); HEMATOCRIT 31.5 % (36.0-47.0); HEMOGLOBIN 10.9 g/dL (12.0-15.5); LYMPHOCYTES % (AUTO) 26.2 % (13-45); MEAN CORPUSCULAR HEMOGLOBIN 34.1 pg (27.0-33.4); MEAN CORPUSCULAR HGB CONC 34.7 g/dL (32.0-36.0); MONOCYTES % (AUTO) 9.5 % (3-13); PLATELET COUNT 366 10^3/uL (150-450); RED CELL DISTRIBUTION WIDTH 19.5 % (11.5-14.0); RETICULOCYTE COUNT (AUTO) 5.44 % (0.66-2.85); SEGMENTED NEUTROPHILS % (AUTO) 61.8 % (42-78); TOTAL CELLS COUNTED % (AUTO) 100 %; WHITE BLOOD COUNT 13.2 10^3/uL (4.0-10.5)
[2018-05-23 21:58] LABS: MEAN CORPUSCULAR VOLUME 98 fl (80-97)
[2018-05-23] MEDS ORDERED: HYDROMORPHONE HCL INJ/PF 2 MG/ML AMPULE IV ONE (22:11)
[2018-05-23 22:12] LABS: ALANINE AMINOTRANSFERASE 31 U/L (9-52); ALBUMIN 4.9 g/dL (3.5-5.0); ALKALINE PHOSPHATASE 70 U/L (38-126); ANION GAP 14 (5-19); ASPARTATE AMINO TRANSFERASE 36 U/L (14-36); BILIRUBIN,DIRECT 0.5 mg/dL (0.0-0.4); BILIRUBIN,TOTAL 2.4 mg/dL (0.2-1.3); BLOOD UREA NITROGEN 7 mg/dL (7-20); CALCIUM 9.9 mg/dL (8.4-10.2); CARBON DIOXIDE 23 mmol/L (22-30); CHLORIDE 105 mmol/L (98-107); CREATINE KINASE 34 U/L (30-135); GLUCOSE 93 mg/dL (75-110); POTASSIUM 4.2 mmol/L (3.6-5.0); SODIUM 142.1 mmol/L (137-145); TOTAL PROTEIN 8.2 g/dL (6.3-8.2)
[2018-05-23 22:25] LABS: CREATINE KINASE MB < 0.22 ng/mL (<4.55); TROPONIN I < 0.012 ng/mL
--- NOTE | 2018-05-23 22:43 | ER Document Report ---
ED General - General Chief Complaint: Sickle Cell Crisis Stated Complaint: CHEST PAIN Time Seen by Provider: 05/23/18 17:56 TRAVEL OUTSIDE OF THE [place] IN LAST 30 DAYS: No - HPI Patient complains to provider of: chest pain Onset: Other - 27-year-old female with a past medical history significant for sickle cell anemia that presents for evaluation of pain in her chest which is worsened over the last few days with associated shortness of breath. She has been utilizing her home medications including her hydroxyurea folate as well as oxycodone without any improvement in her symptoms. She presented 5 days prior and is continued to have worsening pain including the chest with some shortness of breath. She denies fevers, productive cough abdominal pain diarrhea constipation dysuria rashes or other symptoms. - Related Data Allergies/Adverse Reactions: ceftriaxone sodium [From Rocephin] Allergy (Verified 05/05/18 08:48) Cephalosporins Allergy (Verified 05/05/18 08:48) milk [Milk] Allergy (Verified 05/05/18 08:48) Shellfish * [Shellfish] Allergy (Verified 05/05/18 08:48) wheat [Wheat] Allergy (Verified 05/05/18 08:48) Past Medical History - General Information source: Patient - Social History Smoking Status: Unknown if Ever Smoked Family History: Reviewed & Not Pertinent, DM, Malignancy - Brother with Hodgkin' s lymphoma. Maternal grandfather with lung cancer., Other - sickle trait in Mother and Father Patient has suicidal ideation: No Patient has homicidal ideation: No - Past Medical History Cardiac Medical History: Reports: Hx Hypertension, Hx Heart Murmur Denies: Hx Coronary Artery Disease, Hx Heart Attack Pulmonary Medical History: Reports: Hx Asthma, Hx Pneumonia - 2017 Denies: Hx Bronchitis, Hx COPD Neurological Medical History: Reports: Hx Migraine, Hx Seizures - HX OF. NO MEDICATIONS. Denies: Hx Cerebrovascular Accident Endocrine Medical History: Denies: Hx Diabetes Mellitus Type 2, Hx Hyperthyroidism, Hx Hypothyroidism Renal/ Medical History: Denies: Hx Peritoneal Dialysis GI Medical History: Reports: Hx Gastroesophageal Reflux Disease Musculoskeletal Medical History: Denies Hx Arthritis, Denies Hx Fibromyalgia Skin Medical History: Reports Hx MRSA Psychiatric Medical History: Reports: Hx Depression - 2014 Past Surgical History: Reports: Hx Adenoidectomy, Hx Cholecystectomy, Hx Oral Surgery - growth removed from under tongue, Hx Tonsillectomy, Other - Port placement 2 and removal for infection, multiple PICC lines, central l. Denies : Hx Hysterectomy, Hx Kidney (Renal Surgery), Hx Pacemaker - Immunizations Hx Diphtheria, Pertussis, Tetanus Vaccination: Yes Hx Pneumococcal Vaccination: 07/08/11 Review of Systems - Review of Systems -: Yes All other systems reviewed and negative Physical Exam - Vital signs Vitals: Temp Pulse Resp BP Pulse Ox 98.4 F 74 22 H 128/62 H 99 05/23/18 17:32 05/23/18 17:32 05/23/18 17:32 05/23/18 17:32 05/23/18 17:32 - General General appearance: Anxious In distress: Mild - HEENT Head: Normocephalic Eyes: Normal Conjunctiva: Normal Cornea: Normal - Respiratory Respiratory status: No respiratory distress Chest status: Tender Breath sounds: Normal Chest palpation: Normal - Cardiovascular Rhythm: Regular Heart sounds: Normal auscultation Murmur: No - Abdominal Inspection: Normal Distension: No distension Tenderness: Nontender - Back Back: Normal - Extremities General upper extremity: Normal inspection, Nontender, Normal ROM, Normal strength General lower extremity: Normal inspection, Nontender, Normal ROM, Normal strength - Neurological Neuro grossly intact: Yes Cognition: Normal Orientation: AAOx4 [place] Coma Scale Eye Opening: Spontaneous [place] Coma Scale Verbal: Oriented [place] Coma Scale Motor: Obeys Commands [place] Coma Scale Total: 15 Speech: Normal Cranial nerves: Normal Motor strength normal: LUE, RUE, LLE, RLE - Psychological Associated symptoms: Normal affect Course - Re-evaluation Re-evalutation: 27-year-old sickle cell patient that presents for chest pain. She has not had acute chest syndrome since childhood that she has had intractable episodes of pain in the past she was seen previously for this subsequently discharged home. She is in some distress on examination tearful with marked tenderness in the chest and some tachypnea. Do have some concern that this could represent the development of acute chest syndrome she has had labs ordered through triage as well as a chest x-ray. Her chest x-ray does demonstrate what appears to be a slight infiltrate. This patient has had a venous thrombus in the past related to a PICC line as she has had difficulty in vascular access. Because of her previous history as well as known risk factors because of her sickle cell disease will proceed with CTA of the chest. Her CBC does demonstrate a stable hemoglobin and hematocrit with what appears to be a reticulocyte count that is elevated but relatively at baseline per this patient. Have administered fentanyl as well as oral oxycodone and 3 doses of Dilaudid in the emergency department without resolution of this patient's pain. CTA does not demonstrate any obvious pulmonary embolus, there is some scar tissue apparent in the lungs potentially related to a previous episode. She does have slightly elevated bilirubin. Current plan will be for this patient undergo admission as I have discussed with her potential outpatient management versus inpatient management she does not believe that she can tolerate this level of discomfort at home. Have spoken to the on-call hospitalist Dr. LUCIA who will evaluate this patient for admission. - Vital Signs Vital signs: Temp Pulse Resp BP Pulse Ox 98.4 F 74 14 128/97 H 100 05/23/18 17:32 05/23/18 17:32 05/23/18 23:01 05/23/18 23:01 05/23/18 23:01 - Laboratory Result Diagrams: 05/23/18 21:31 05/23/18 21:31 Laboratory results interpreted by me: 05/23/18 05/23/18 21:31 21:31 WBC 13.2 H RBC 3.20 L Hgb 10.9 L Hct 31.5 L MCV 98 H D MCH 34.1 H RDW 19.5 H Retic Count (auto) 5.44 H Absolute Retic 0.174 H Total Bilirubin 2.4 H Direct Bilirubin 0.5 H Discharge - Discharge Clinical Impression: Sickle cell pain crisis, Shortness of breath Condition: Stable Disposition: ADMITTED INPATIENT Admitting Provider: Hospitalist Unit Admitted: Medical Floor Referrals: SAVITA STUART PA-C [Primary Care Provider] - Follow up as needed
--- NOTE | 2018-05-23 23:04 | RADIOLOGY REPORT (SQ) ---
EXAM DESCRIPTION: CT CHEST ANGIOGRAPHY WITHOUT THEN WITH IV CONTRAST COMPLETED DATE/TME: 05/23/2018 19:44 CLINICAL HISTORY: 27 years, Female, concern for PE, sickle cell COMPARISON: 06/12/2016 and correlation with recent chest x-ray performed earlier same day at 6:31 pm TECHNIQUE: Axial images through the chest were performed after the administration of intravenous contrast using a pulmonary embolus protocol. MIPS were performed. Images stored on PACS. All CT scanners at this facility use dose modulation, iterative reconstruction, and/or weight based dosing when appropriate to reduce radiation dose to as low as reasonably achievable (ALARA). [facility]: Dose Right [facility]: CareDose [facility]: Dose Right [facility]: Teradose 4D [facility]: RiseSmart LIMITATIONS: None. FINDINGS: No pulmonary arterial embolus is identified. Nonaneurysmal thoracic aorta. No pericardial effusion. No mediastinal adenopathy. Patent central airway. Scattered areas of patchy opacities in the right middle and lower lobes. Stable chronic linear opacities and pleural thickening at the posterior segment of the left lower lobe suggesting scarring. Stable triangular-shaped 3 mm parviz-fissural lung nodule in the left lower lobe, consistent with an intrapulmonary lymph node, no further follow-up is recommended. No pleural effusion. No pneumothorax. Soft tissues are within normal limits. Bilateral nipple rings are noted No acute osseous findings. No acute abnormality within the visualized upper abdomen. Cholecystectomy clips are identified in the right upper quadrant. Small spleen. IMPRESSION: 1. Negative for pulmonary arterial embolus. 2. Nonspecific patchy opacities in the right lung, new when compared to previous CT chest back in 2016. These may represent areas of scarring however, underlying infectious process is not excluded. TECHNICAL DOCUMENTATION: Quality ID # 436: Final reports with documentation of one or more dose reduction techniques (e.g., Automated exposure control, adjustment of the mA and/or kV according to patient size, use of iterative reconstruction technique) 2010 [employer]- All Rights Reserved
[2018-05-23] MEDS ORDERED: ACETAMINOPHEN 325 MG TABLET PO PRN (23:48)
[2018-05-23] MEDS ORDERED: NORMAL SALINE 1000 ML 1,000 ML IV PRN (23:48)
[2018-05-23] MEDS ORDERED: PROMETHAZINE HCL 25 MG TABLET PO PRN (23:48)
[2018-05-23] MEDS ORDERED: MAG HYDROX/AL HYDROX/SIMETH SUSP 30 ML UDCUP PO PRN (23:48)
[2018-05-23] MEDS ORDERED: HYDROMORPHONE HCL INJ/PF 2 MG/ML AMPULE IV PRN (23:52)
[2018-05-23] MEDS ORDERED: DIPHENHYDRAMINE HCL 50 MG/ML VIAL IV PRN (23:53)
[2018-05-24] MEDS ORDERED: ONDANSETRON 4 MG TAB.RAPDIS PO PRN
[2018-05-24] MEDS ORDERED: CETIRIZINE 10 MG TABLET PO ONE (00:15)
[2018-05-24] MEDS ORDERED: CYCLOBENZAPRINE HCL 10 MG TABLET PO ONE (00:15)
[2018-05-24] MEDS ORDERED: OXYCODONE HCL IR 5 MG TABLET PO PRN (00:15)
[2018-05-24] MEDS ORDERED: AMITRIPTYLINE HCL 50 MG TABLET PO ONE (00:15)
--- NOTE | 2018-05-24 00:16 | PDOC H&P ---
History of Present Illness Admission Date/PCP: 05/23/2018 SAVITA BEAL PA-C Patient complains of: Generalized pain History of Present Illness: PRANAV JOINER is a 27 year old female with history of sickle cell, comes to the emergency department complaining of sickle cell crisis. Patient tells me that her symptoms started last Saturday and she believes it has been trigger by the cold weather, she has pain in her thorax, upper extremities, abdomen and lower extremities, she feels like her pain is coming from her upper back to her chest, symptoms are associated with nausea and episode of nonbloody vomiting, she has several days of nonbloody diarrhea, denies dysuria, hematuria or frequency, also denies fever or chills. Patient takes oxycodone 15 mg every 4-6 hours as needed and has not improved her pain. She tells me that she is tired that people tell her that she is 9 crisis because her laboratory is a stable and in fact her hemoglobin and hematocrit are 10.9, 31 stable from prior, her reticulocyte count also is a stable. She has mild elevation of her white blood cell count of 13.2 from 9.8. Usually comes to the emergency department and gets discharged home but today ED attending tells me that she does not feel that she can go home. Patient follows with Past Medical History Cardiac Medical History: Reports: Hypertension, Heart Murmur Denies: Coronary Artery Disease, Myocardial Infarction Pulmonary Medical History: Reports: Asthma, Pneumonia - 2017 Denies: Bronchitis, Chronic Obstructive Pulmonary Disease (COPD) Neurological Medical History: Reports: Migraine, Seizures - HX OF. NO MEDICATIONS Endocrine Medical History: Denies: Diabetes Mellitus Type 2, Hyperthyroidism, Hypothyroidism GI Medical History: Reports: Gastroesophageal Reflux Disease Musculoskeltal Medical History: Denies: Arthritis, Fibromyalgia Psychiatric Medical History: Reports: Depression - 2015 Hematology: Reports: Anemia, Sickle Cell Disease Past Surgical History Past Surgical History: Reports: Adenoidectomy, Cholecystectomy, Tonsillectomy, Other - Port placement 2 and removal for infection, multiple PICC lines, central l Denies: Hysterectomy, Pacemaker Social History Information Source: Patient Smoking Status: Never Smoker Frequency of Alcohol Use: None Hx Recreational Drug Use: No Drugs: None Hx Prescription Drug Abuse: No Family History Family History: Reviewed & Not Pertinent, DM, Malignancy - Brother with Hodgkin' s lymphoma. Maternal grandfather with lung cancer., Other - sickle trait in Mother and Father Family History: Brother with Hodgkin lymphoma. Maternal grandfather with lung cancer. Sickle trait in mother and father. Parental Family History Reviewed: Yes - As above Children Family History Reviewed: NA Sibling(s) Family History Reviewed.: NA Medication/Allergy Home Medications: Amitriptyline HCl [Elavil 25 mg Tablet] 25 mg PO QAM 04/16/17 Amlodipine Besylate [Norvasc 5 mg Tablet] 5 mg PO DAILY 04/16/17 Cetirizine HCl [Zyrtec 10 mg Tablet] 10 mg PO QHS 04/16/17 Cyclobenzaprine HCl [Flexeril 5 mg Tablet] 5 mg PO Q12 04/16/17 Folic Acid [Folvite 1 mg Tablet] 1 mg PO DAILY 04/16/17 Hydroxyurea [Hydrea 500 mg Capsule] 1,500 mg PO SUTUTHSA@1000 04/16/17 Hydroxyurea [Hydrea 500 mg Capsule] 2,000 mg PO MOWEFR@1000 04/16/17 Oxycodone HCl 15 mg PO Q6HP PRN 04/16/17 Promethazine HCl [Phenergan 25 mg Tablet] 25 mg PO Q6HP PRN 04/16/17 Butalb/Acetaminophen/Caffeine [Jckkmz-Gvabttxn-Vvag 50-300-40] 1 cap PO Q4HP PRN 09/01/17 Temazepam [Restoril 15 mg Capsule] 15 mg PO HSP PRN 12/15/17 Amitriptyline HCl [Elavil 50 mg Tablet] 50 mg PO QHS 02/27/18 Ondansetron [Zofran Odt 4 mg Tablet] 1 tab PO Q8H PRN #15 tab.rapdis 05/18/18 Allergies/Adverse Reactions: ceftriaxone sodium [From Rocephin] Allergy (Verified 05/05/18 08:48) Cephalosporins Allergy (Verified 05/05/18 08:48) milk [Milk] Allergy (Verified 05/05/18 08:48) Shellfish * [Shellfish] Allergy (Verified 05/05/18 08:48) wheat [Wheat] Allergy (Verified 05/05/18 08:48) Review of Systems Review of Systems: As outlined in the HPI, all others negative Physical Exam Vital Signs: Temp Pulse Resp BP Pulse Ox 98.4 F 74 14 128/97 H 100 05/23/18 17:32 05/23/18 17:32 05/23/18 23:01 05/23/18 23:01 05/23/18 23:01 Intake & Output 05/22/18 05/23/18 05/24/18 06:59 06:59 06:59 Intake Total 1000 Balance 1000 Weight 62.5 kg Additional comments: General appearance: Well-developed, well-nourished, alert and cooperative, and appears to be in no acute distress Head: Normocephalic Eyes: PEERL, EOMI, vision is grossly intact. Ears: External auditory canal and tympanic membranes clear, hearing grossly intact. Nose: No nasal discharge. Throat: Oral cavity and pharynx normal. No inflammation, swelling, exudate or lesions. Neck: Neck supple, nontender without lymphadenopathy, masses or thyromegaly. Cardiac: Normal S1 and S2. No S3, S4 or murmurs. Rhythm is regular. There is no peripheral edema, cyanosis or pallor. Extremities are warm and well perfused. Capillary refill is less than 2 seconds. No carotid bruits. Lungs: Clear to auscultation and percussion without rales, rhonchi, wheezing or diminished breath sounds. Not using accessory muscles. Abdomen: Positive bowel sounds. Soft. Nondistended, nontender. No guarding or rebound. No masses. No hepatosplenomegaly Extremities: No significant deformity or joint abnormality. No edema. Peripheral pulses intact. No varicosities. Musculoskeletal: Tenderness to palpation in chest, back, upper and lower extremities. Neurological: Cranial nerves II through XII grossly intact. Strength and sensation symmetric and intact throughout. Reflexes 2+ throughout. Skin: Skin normal color, texture and turgor with no lesions or eruptions, warm and dry. Psychiatric: The mental examination revealed the patient was oriented to person , place, and time. The patient was able to demonstrate good judgment on recent , without hallucinations, abnormal affect or abnormal behaviors. Results Laboratory Results: 05/23/18 21:31 05/23/18 21:31 05/23/18 05/23/18 21:31 21:31 WBC 13.2 H RBC 3.20 L Hgb 10.9 L Hct 31.5 L MCV 98 H D MCH 34.1 H MCHC 34.7 RDW 19.5 H Plt Count 366 Seg Neutrophils % 61.8 Lymphocytes % 26.2 Monocytes % 9.5 Eosinophils % 1.2 Basophils % 1.3 Absolute Neutrophils 8.2 Absolute Lymphocytes 3.5 Absolute Monocytes 1.3 Absolute Eosinophils 0.2 Absolute Basophils 0.2 Retic Count (auto) 5.44 H Absolute Retic 0.174 H Sodium 142.1 Potassium 4.2 Chloride 105 Carbon Dioxide 23 Anion Gap 14 BUN 7 Creatinine 0.60 Est GFR ( Amer) > 60 Est GFR (Non-Af Amer) > 60 Glucose 93 Calcium 9.9 Total Bilirubin 2.4 H AST 36 ALT 31 Alkaline Phosphatase 70 Total Protein 8.2 Albumin 4.9 05/23/18 05/23/18 21:31 21:31 Creatine Kinase 34 CK-MB (CK-2) < 0.22 Troponin I < 0.012 Impressions: Chest X-Ray 05/23/18 18:14 IMPRESSION: Cannot exclude a limited left lower lobe pneumonia. Chest/Abdomen CTA 05/23/18 19:44 IMPRESSION: 1. Negative for pulmonary arterial embolus. 2. Nonspecific patchy opacities in the right lung, new when compared to previous CT chest back in 2016. These may represent areas of scarring however, underlying infectious process is not excluded. TECHNICAL DOCUMENTATION: Quality ID # 436: Final reports with documentation of one or more dose reduction techniques (e.g., Automated exposure control, adjustment of the mA and/or kV according to patient size, use of iterative reconstruction technique) 2010 [employer]- All Rights Reserved Assessment & Plan - Diagnosis (1) Sickle cell pain crisis Is this a current diagnosis for this admission?: Yes Plan: Patient comes complaining of sickle cell crisis, generalized pain with episodes of nausea, vomiting and diarrhea. Her hemoglobin and hematocrit is stable as well as her reticulocyte count. In the emergency department given 100 mcg of IV fentanyl, a total of 1.5 mg of IV Dilaudid and 10 mg of p.o. hydrocodone with poor relief of her pain. We will go ahead and keep the patient under observation and place her on IV Dilaudid every 4 hours as needed. IV fluids with normal saline running at 100 cc/h and oxygen protocol via nasal cannula. Patient feels that the cold weather is triggering her pain. We will place consult for oncology with Dr. Ray (2) Hypertension Qualifiers: Hypertension type: essential hypertension Qualified Code(s): I10 - Essential (primary) hypertension Is this a current diagnosis for this admission?: Yes Plan: Resume home antihypertensive medications. (3) DVT prophylaxis Is this a current diagnosis for this admission?: Yes Plan: Lovenox - Time Time Spent: 50 to 70 Minutes - Plan Summary Plan Summary: Case discussed with patient, agrees with plan
--- NOTE | 2018-05-24 00:18 | EKG REPORT ---
SEVERITY:- NORMAL ECG - SINUS RHYTHM : Confirmed by: Bradley Alarcon 24-May-2018 00:17:16
[2018-05-24] MEDS ORDERED: ACETAMINOPHEN 325 MG TABLET PO PRN (00:30)
[2018-05-24] MEDS ORDERED: HYDROMORPHONE HCL INJ/PF 2 MG/ML AMPULE IV PRN (00:30)
[2018-05-24] MEDS ORDERED: BUTALB/ACETAMINOPHEN/CAFFEINE 1 TAB EACH PO PRN (01:00)
[2018-05-24] MEDS: PROMETHAZINE HCL INJ 25 MG/1 ML VIAL IV PRN ×2 (01:43→06:19)
[2018-05-24] MEDS: HYDROMORPHONE HCL INJ/PF 2 MG/ML AMPULE IV PRN ×7 (02:07→20:47)
[2018-05-24 02:09] LABS: APPEARANCE,URINE SLIGHTLY-CLOUDY; BILIRUBIN,URINE NEGATIVE (NEGATIVE); COLOR,URINE YELLOW; GLUCOSE, URINE NEGATIVE (NEGATIVE); KETONES,URINE NEGATIVE (NEGATIVE); LEUKOCYTE ESTERASE,URINE NEGATIVE (NEGATIVE); NITRITE,URINE NEGATIVE (NEGATIVE); PROTEIN,URINE NEGATIVE (NEGATIVE); URINE SPECIFIC GRAVITY 1.041
[2018-05-24] MEDS ORDERED: DIPHENHYDRAMINE HCL 25 MG/10 ML UDC PO PRN (02:12)
[2018-05-24 02:25] LABS: URINE AMPHETAMINES SCREEN NEGATIVE; URINE BARBITURATES SCREEN NEGATIVE; URINE BENZODIAZEPINES SCREEN NEGATIVE; URINE COCAINE SCREEN NEGATIVE; URINE METHADONE SCREEN NEGATIVE; URINE PHENCYCLIDINE SCREEN NEGATIVE
[2018-05-24 02:31] LABS: URINE MARIJUANA (THC) SCREEN UNCONFIRMED POSITIVE
[2018-05-24] MEDS ORDERED: DIPHENHYDRAMINE HCL 25 MG CAPSULE PO PRN (03:06)
[2018-05-24] MEDS ORDERED: DIPHENHYDRAMINE HCL 25 MG CAPSULE ONE (03:06)
[2018-05-24] MEDS: OXYCODONE HCL IR 5 MG TABLET PO PRN ×2 (03:07→19:56)
[2018-05-24 05:13] LABS: ABSOLUTE BASOPHILS # (AUTO) 0.1 10^3/uL (0.0-0.2); ABSOLUTE EOSINOPHILS # (AUTO) 0.1 10^3/uL (0.0-0.6); ABSOLUTE LYMPHOCYTES (AUTO) 3.5 10^3/uL (0.5-4.7); ABSOLUTE MONOCYTES (AUTO) 1.2 10^3/uL (0.1-1.4); ABSOLUTE NEUT (AUTO) 5.1 10^3/uL (1.7-8.2); BASOPHILS % (AUTO) 1.3 % (0-2); EOSINOPHILS % (AUTO) 1.4 % (0-6); HEMATOCRIT 26.1 % (36.0-47.0); HEMOGLOBIN 9.3 g/dL (12.0-15.5); LYMPHOCYTES % (AUTO) 35.2 % (13-45); MEAN CORPUSCULAR HGB CONC 35.6 g/dL (32.0-36.0); MEAN CORPUSCULAR VOLUME 98 fl (80-97); PLATELET COUNT 299 10^3/uL (150-450); RED BLOOD COUNT 2.66 10^6/uL (3.72-5.28); RED CELL DISTRIBUTION WIDTH 19.7 % (11.5-14.0); SEGMENTED NEUTROPHILS % (AUTO) 50.1 % (42-78); TOTAL CELLS COUNTED % (AUTO) 100 %; WHITE BLOOD COUNT 10.1 10^3/uL (4.0-10.5)
[2018-05-24 05:36] LABS: ANION GAP 9 (5-19); BLOOD UREA NITROGEN 6 mg/dL (7-20); CARBON DIOXIDE 25 mmol/L (22-30); CHLORIDE 107 mmol/L (98-107); GLUCOSE 104 mg/dL (75-110); SODIUM 141.3 mmol/L (137-145)
[2018-05-24] MEDS: AMITRIPTYLINE HCL 25 MG TABLET PO SCH (08:59)
[2018-05-24] MEDS: CYCLOBENZAPRINE HCL 10 MG TABLET PO SCH ×2 (10:11→21:40)
[2018-05-24] MEDS: HYDROXYUREA 500 MG CAPSULE PO SCH (10:12)
[2018-05-24] MEDS: FOLIC ACID 1 MG TABLET PO SCH (10:12)
[2018-05-24] MEDS: ENOXAPARIN SODIUM INJ 40 MG/0.4 ML DISP.SYRIN SUBCUT SCH (10:12)
[2018-05-24] MEDS: 1/2 NORMAL SALINE 1,000 ML IV PRN ×2 (10:13→19:57)
[2018-05-24] MEDS: ONDANSETRON HCL INJ/PF 4 MG/2 ML SDV IV PRN (13:02)
[2018-05-24] MEDS: AMLODIPINE BESYLATE 5 MG TABLET PO SCH (13:02)
--- NOTE | 2018-05-24 14:28 | PDOC CONSULTATION ---
Consultation Consult Date: 05/24/18 Consult reason:: Hematology/Oncology consultation was requested for patient with Sickle Cell anemia in acute pain crisis. History of Present Illness Admission Date/PCP: 05/24/18 00:13 SAVITA BEAL PA-C History of Present Illness: PRANAV JOINER is a 27 year old female well known to our service with frequent admissions for pain control due to sickle cell anemia. She states that over the past 2 weeks, she has had increasing pain and has been trying to stay out of the Emergency department. She usually has pain all over but this time, has increased chest pain, more so than previously. 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 Past Medical History Cardiac Medical History: Reports: Hypertension, Heart Murmur Denies: Coronary Artery Disease, Myocardial Infarction Pulmonary Medical History: Reports: Asthma, Pneumonia - 2017 Denies: Bronchitis, Chronic Obstructive Pulmonary Disease (COPD) Neurological Medical History: Reports: Migraine, Seizures - HX OF. NO MEDICATIONS Endocrine Medical History: Denies: Diabetes Mellitus Type 2, Hyperthyroidism, Hypothyroidism GI Medical History: Reports: Gastroesophageal Reflux Disease Musculoskeltal Medical History: Denies: Arthritis, Fibromyalgia Psychiatric Medical History: Reports: Depression - 2014 Hematology: Reports: Anemia, Sickle Cell Disease Past Surgical History Past Surgical History: Reports: Adenoidectomy, Cholecystectomy, Tonsillectomy, Other - Port placement 2 and removal for infection, multiple PICC lines, central l Denies: Hysterectomy, Pacemaker Social History Information Source: Patient Lives with: Family Smoking Status: Former Smoker Cigars Per Day: 1 Last Time Smoked: 05/21/2018 Frequency of Alcohol Use: Occasional Hx Recreational Drug Use: - denied Drugs: Marijuana Hx Prescription Drug Abuse: No - denies - Advance Directive Resuscitation Status: Full Code Family History Family History: DM, Malignancy - Brother with Hodgkin's lymphoma. Maternal grandfather with lung cancer., Other - sickle trait in Mother and Father Parental Family History Reviewed: Yes - MGF with lung cancer Children Family History Reviewed: NA Sibling(s) Family History Reviewed.: Yes - Brother with Hodgkin Lymphoma Medication/Allergy Home Medications: Amitriptyline HCl [Elavil 25 mg Tablet] 25 mg PO QAM 04/16/17 Amlodipine Besylate [Norvasc 5 mg Tablet] 5 mg PO DAILY 04/16/17 Cetirizine HCl [Zyrtec 10 mg Tablet] 10 mg PO QHS 04/16/17 Cyclobenzaprine HCl [Flexeril 5 mg Tablet] 5 mg PO Q12 04/16/17 Folic Acid [Folvite 1 mg Tablet] 1 mg PO DAILY 04/16/17 Hydroxyurea [Hydrea 500 mg Capsule] 1,500 mg PO SUTUTHSA@1000 04/16/17 Hydroxyurea [Hydrea 500 mg Capsule] 2,000 mg PO MOWEFR@1000 04/16/17 Oxycodone HCl 15 mg PO Q6HP PRN 04/16/17 Promethazine HCl [Phenergan 25 mg Tablet] 25 mg PO Q6HP PRN 04/16/17 Butalb/Acetaminophen/Caffeine [Yqmhsq-Oqlwndzv-Yphn 50-300-40] 1 cap PO Q4HP PRN 09/01/17 Amitriptyline HCl [Elavil 50 mg Tablet] 50 mg PO QHS 02/27/18 Allergies/Adverse Reactions: ceftriaxone sodium [From Rocephin] Allergy (Verified 05/05/18 08:48) Cephalosporins Allergy (Verified 05/05/18 08:48) milk [Milk] Allergy (Verified 05/05/18 08:48) Shellfish * [Shellfish] Allergy (Verified 05/05/18 08:48) wheat [Wheat] Allergy (Verified 05/05/18 08:48) Review of Systems Constitutional: PRESENT: headache(s). ABSENT: fever(s) Eyes: ABSENT: visual disturbances Ears: ABSENT: hearing changes Nose, Mouth, and Throat: ABSENT: sore throat Cardiovascular: PRESENT: chest pain Respiratory: PRESENT: dyspnea Gastrointestinal: PRESENT: heartburn, nausea. ABSENT: constipation Genitourinary: ABSENT: dysuria Musculoskeletal: PRESENT: back pain, joint swelling Integumentary: PRESENT: pruritus Hematologic/Lymphatic: PRESENT: lymphadenopathy Physical Exam Vital Signs: Temp Pulse Resp BP Pulse Ox 98.1 F 70 16 118/50 L 90 L 05/24/18 11:33 05/24/18 11:33 05/24/18 11:33 05/24/18 11:33 05/24/18 11:33 Intake & Output 05/23/18 05/24/18 05/25/18 06:59 06:59 06:59 Intake Total 444 1000 Balance 444 1000 General appearance: PRESENT: no acute distress Exam: Well nourished, 27 year old female. Head exam: PRESENT: atraumatic Eye exam: PRESENT: EOMI Mouth exam: PRESENT: tongue midline Neck exam: ABSENT: lymphadenopathy, tenderness Respiratory exam: PRESENT: clear to auscultation william, unlabored Cardiovascular exam: PRESENT: RRR, systolic murmur GI/Abdominal exam: PRESENT: soft. ABSENT: guarding, tenderness Extremities exam: ABSENT: pedal edema Neurological exam: PRESENT: alert, awake, oriented to person, oriented to place , oriented to time, oriented to situation Psychiatric exam: PRESENT: appropriate affect Focused psych exam: ABSENT: psychomotor agitation, restlessness Skin exam: PRESENT: normal color Results Laboratory Results: 05/24/18 04:38 05/24/18 04:38 05/24/18 05/24/18 05/24/18 01:56 04:38 04:38 WBC 10.1 RBC 2.66 L Hgb 9.3 L Hct 26.1 L MCV 98 H MCH 35.0 H MCHC 35.6 RDW 19.7 H Plt Count 299 Seg Neutrophils % 50.1 Lymphocytes % 35.2 Monocytes % 12.0 Eosinophils % 1.4 Basophils % 1.3 Absolute Neutrophils 5.1 Absolute Lymphocytes 3.5 Absolute Monocytes 1.2 Absolute Eosinophils 0.1 Absolute Basophils 0.1 Sodium 141.3 Potassium 4.0 Chloride 107 Carbon Dioxide 25 Anion Gap 9 BUN 6 L Creatinine 0.55 Est GFR ( Amer) > 60 Est GFR (Non-Af Amer) > 60 Glucose 104 Calcium 9.0 Urine Color YELLOW Urine Appearance SLIGHTLY-CLOUDY Urine pH 6.0 Ur Specific E[place]ice 1.041 Urine Protein NEGATIVE Urine Glucose (UA) NEGATIVE Urine Ketones NEGATIVE Urine Blood NEGATIVE Urine Nitrite NEGATIVE Ur Leukocyte Esterase NEGATIVE Urine WBC (Auto) 1 Urine RBC (Auto) 0 EKG Comments: Normal EKS and normal cardiac enzymes. Impressions: Chest X-Ray 05/23/18 18:14 IMPRESSION: Cannot exclude a limited left lower lobe pneumonia. Chest/Abdomen CTA 05/23/18 19:44 IMPRESSION: 1. Negative for pulmonary arterial embolus. 2. Nonspecific patchy opacities in the right lung, new when compared to previous CT chest back in 2016. These may represent areas of scarring however, underlying infectious process is not excluded. TECHNICAL DOCUMENTATION: Quality ID # 436: Final reports with documentation of one or more dose reduction techniques (e.g., Automated exposure control, adjustment of the mA and/or kV according to patient size, use of iterative reconstruction technique) 2010 [employer]- All Rights Reserved Status: Image reviewed by me Assessment & Plan - Diagnosis (1) Sickle cell pain crisis Is this a current diagnosis for this admission?: Yes Plan: Patient will continue to receive 1/2 NS, O2, and encouraged to eat and drink and walk as much as possible. Continue Dilaudid PRN for pain. Meds to be adjusted as needed for acute crisis. Will follow CBC, CMP and LDH. Will try NOT to use blood transfusions if possible. (2) Nausea & vomiting Qualifiers: Vomiting type: unspecified Vomiting Intractability: non-intractable Qualified Code(s): R11.2 - Nausea with vomiting, unspecified Plan: Continue phenergan and benadryl. May need to change to IV, but will try oral if possible. (3) DVT prophylaxis Is this a current diagnosis for this admission?: Yes Plan: She has not had DVT for about 1 year. Continue Lovenox 40 mg SC daily. Encouraged ambulation. - Plan Summary Plan Summary: Will watch for signs of infection. Currently afebrile. Her PCP is Janna Mayorga.
--- NOTE | 2018-05-24 16:53 | PROGRESS NOTE E ---
Progress Note NAME: PRANAV JOINER : 1990 AGE: 27Y DATE: 05/24/2018 ROOM: 536 SUBJECTIVE: The patient is currently lying in bed. She states that she is having a lot of pain, especially back pain, some chest tightness. She does deny any acute dyspnea. The patient has had no cough, no sputum production, no dizziness. The patient does admit to itching. No fevers or chills. The patient has been afebrile, blood pressure has been in a good range, and the patient did not voice any other concerns at this time. BRIEF HISTORY: The patient is a 27-year-old -[place] female with a past medical history of sickle cell disease, that is very well-known to the hospital service. The patient presented to the emergency department with a chief complaint of pain. The patient does have an established history with hematology locally and given the patient's opioid demands and dependency her pain management is driven by hematology in the inpatient setting. The patient has been hydrated and was referred to the hospitalist for admission and management. REVIEW OF SYSTEMS: The rest of the review of systems is negative. MEDICATIONS: Have been reviewed. OBJECTIVE: GENERAL: The patient is a 27-year-old -[place] female who is awake, alert, and oriented to person, time, place, situation. She is verbal, conversational. She does not appear to be in any acute distress. VITAL SIGNS: Temperature is 98.4, pulse 67, respirations 17, blood pressure is 120/48, oxygen saturation is 96% on room air. SKIN: Warm and dry. No rash. She is not diaphoretic. HEENT: Pupils equal, round and reactive to light and accommodation. Conjunctivae are pink. No evidence of JVP. CARDIOVASCULAR: Heart is regular. There is no murmur or rub. CHEST: Clear, symmetrical, unlabored. ABDOMEN: Soft, nontender. EXTREMITIES: There is no edema. PSYCHIATRIC: Appropriate affect, pleasant mood. DIAGNOSTICS: Lab values are as follows - Hematology obtained on 05/24/2018; WBC is 10.1, hemoglobin is 9.3, hematocrit is 26.1, platelet count is 299,000. Chemistry obtained on 05/24/2018; sodium is 141, potassium 4.0, chloride is 107, carbon dioxide 25, BUN 6, creatinine is 0.55, glucose 104, calcium is 9.0. IMPRESSION AND PLAN: 1. SICKLE CELL PAIN CRISIS. Management as per hematology. Will continue IV fluids as well as oxygen. Will give the patient a K-Pad to help with her back pain as well. The patient does not have evidence of chest crisis. No evidence of pneumonia at this time. Will continue to monitor. 2. HYPERTENSION. Will continue the patient's home medications. 3. OPIATE DEPENDENCY CONTINUOUS. Further management as per hematology. CODE STATUS: The patient is a full code. DISPOSITION: Depending on the patient's symptomatology and diagnostic findings will reevaluate in the a.m. TIME SPENT: On this follow up, including assessment and plan, physical examination, patient education, review of records is 35 minutes. DICTATING PHYSICIAN: ZAMZAM SOLIS NP [id number] PHY#: [id number] ID: [id number] JOB#: [id number] ACCT: [id number] cc: >
[2018-05-24] MEDS: DIPHENHYDRAMINE HCL 25 MG CAPSULE PO PRN (19:57)
[2018-05-24] MEDS: TEMAZEPAM 15 MG CAPSULE PO PRN (21:39)
[2018-05-24] MEDS: AMITRIPTYLINE HCL 50 MG TABLET PO SCH (21:39)
[2018-05-24] MEDS ORDERED: CETIRIZINE 10 MG TABLET PO SCH (22:00)
[2018-05-25] MEDS: HYDROMORPHONE HCL INJ/PF 2 MG/ML AMPULE IV PRN ×9 (00:06→22:23)
[2018-05-25] MEDS: PROMETHAZINE HCL 25 MG TABLET PO PRN ×3 (00:06→19:56)
[2018-05-25] MEDS: DIPHENHYDRAMINE HCL 25 MG CAPSULE PO PRN ×4 (00:06→19:56)
[2018-05-25] MEDS: 1/2 NORMAL SALINE 1,000 ML IV PRN ×4 (03:13→23:08)
[2018-05-25] MEDS: OXYCODONE HCL IR 5 MG TABLET PO PRN (03:13)
[2018-05-25] MEDS: ONDANSETRON HCL INJ/PF 4 MG/2 ML SDV IV PRN ×2 (04:10→14:46)
[2018-05-25 04:46] LABS: ABSOLUTE BASOPHILS # (AUTO) 0.1 10^3/uL (0.0-0.2); ABSOLUTE EOSINOPHILS # (AUTO) 0.2 10^3/uL (0.0-0.6); ABSOLUTE LYMPHOCYTES (AUTO) 3.5 10^3/uL (0.5-4.7); ABSOLUTE MONOCYTES (AUTO) 0.7 10^3/uL (0.1-1.4); ABSOLUTE NEUT (AUTO) 6.6 10^3/uL (1.7-8.2); BASOPHILS % (AUTO) 0.7 % (0-2); EOSINOPHILS % (AUTO) 1.8 % (0-6); HEMATOCRIT 25.3 % (36.0-47.0); HEMOGLOBIN 8.9 g/dL (12.0-15.5); LYMPHOCYTES % (AUTO) 31.6 % (13-45); MEAN CORPUSCULAR HEMOGLOBIN 33.4 pg (27.0-33.4); MEAN CORPUSCULAR HGB CONC 35.1 g/dL (32.0-36.0); MEAN CORPUSCULAR VOLUME 95 fl (80-97); MONOCYTES % (AUTO) 6.6 % (3-13); PLATELET COUNT 308 10^3/uL (150-450); RED BLOOD COUNT 2.65 10^6/uL (3.72-5.28); SEGMENTED NEUTROPHILS % (AUTO) 59.3 % (42-78); TOTAL CELLS COUNTED % (AUTO) 100 %; WHITE BLOOD COUNT 11.1 10^3/uL (4.0-10.5)
[2018-05-25 05:20] LABS: ANION GAP 9 (5-19); BLOOD UREA NITROGEN 4 mg/dL (7-20); CARBON DIOXIDE 25 mmol/L (22-30); CHLORIDE 109 mmol/L (98-107); GLUCOSE 93 mg/dL (75-110); POTASSIUM 4.5 mmol/L (3.6-5.0); SODIUM 142.5 mmol/L (137-145)
[2018-05-25] MEDS: AMITRIPTYLINE HCL 25 MG TABLET PO SCH (10:03)
[2018-05-25] MEDS: CYCLOBENZAPRINE HCL 10 MG TABLET PO SCH ×2 (10:04→22:22)
[2018-05-25] MEDS: HYDROXYUREA 500 MG CAPSULE PO SCH (10:04)
[2018-05-25] MEDS: ENOXAPARIN SODIUM INJ 40 MG/0.4 ML DISP.SYRIN SUBCUT SCH (10:04)
[2018-05-25] MEDS: FOLIC ACID 1 MG TABLET PO SCH (10:04)
[2018-05-25] MEDS: AMLODIPINE BESYLATE 5 MG TABLET PO SCH (10:05)
--- NOTE | 2018-05-25 11:16 | PDOC PROGRESS REPORT ---
Subjective Progress Note for:: 05/25/18 Subjective:: No overnight events per patient and RN. Patient noted to be sleeping most of the time and appears relatively comfortable on current pain regimen. Upon my questions, she feels that her pain could be "a little better control" given diffuse pain. Denies fevers, chills, SOB, abdominal pain. Nausea well controlled with anti-emetics. Tolerating POs. Friend at bedside. Reason For Visit: SICKLE CELL CRISIS Physical Exam Vital Signs: Temp Pulse Resp BP Pulse Ox 97.9 F 91 18 115/49 L 92 05/25/18 08:04 05/25/18 08:04 05/25/18 08:04 05/25/18 08:04 05/25/18 08:04 Intake & Output 05/24/18 05/25/18 05/26/18 06:59 06:59 06:59 Intake Total 444 5668 980 Output Total 800 Balance 444 4868 980 Weight 62.5 kg General appearance: PRESENT: no acute distress, cooperative, thin Head exam: PRESENT: atraumatic, normocephalic Mouth exam: PRESENT: moist Respiratory exam: PRESENT: unlabored, other - Has supplemental O2 on at 4L Cardiovascular exam: PRESENT: +S1, +S2. ABSENT: irregular rhythm, tachycardia GI/Abdominal exam: PRESENT: soft. ABSENT: tenderness Extremities exam: PRESENT: full ROM Neurological exam: PRESENT: alert, awake Psychiatric exam: PRESENT: normal mood Skin exam: PRESENT: dry, intact Results Laboratory Results: 05/25/18 04:20 05/25/18 04:20 05/25/18 05/25/18 04:20 04:20 WBC 11.1 H RBC 2.65 L Hgb 8.9 L Hct 25.3 L MCV 95 MCH 33.4 MCHC 35.1 RDW 20.0 H Plt Count 308 Seg Neutrophils % 59.3 Lymphocytes % 31.6 Monocytes % 6.6 Eosinophils % 1.8 Basophils % 0.7 Absolute Neutrophils 6.6 Absolute Lymphocytes 3.5 Absolute Monocytes 0.7 Absolute Eosinophils 0.2 Absolute Basophils 0.1 Sodium 142.5 Potassium 4.5 Chloride 109 H Carbon Dioxide 25 Anion Gap 9 BUN 4 L Creatinine 0.53 Est GFR ( Amer) > 60 Est GFR (Non-Af Amer) > 60 Glucose 93 Calcium 9.0 Magnesium 1.7 Impressions: Chest X-Ray 05/23/18 18:14 IMPRESSION: Cannot exclude a limited left lower lobe pneumonia. Chest/Abdomen CTA 05/23/18 19:44 IMPRESSION: 1. Negative for pulmonary arterial embolus. 2. Nonspecific patchy opacities in the right lung, new when compared to previous CT chest back in 2016. These may represent areas of scarring however, underlying infectious process is not excluded. TECHNICAL DOCUMENTATION: Quality ID # 436: Final reports with documentation of one or more dose reduction techniques (e.g., Automated exposure control, adjustment of the mA and/or kV according to patient size, use of iterative reconstruction technique) 2010 [employer]- All Rights Reserved Assessment & Plan - Diagnosis (1) Sickle cell pain crisis Is this a current diagnosis for this admission?: Yes Plan: Typical sickle cell crisis. No obvious precipitating factor other than colder temperature - Currently on Dilaudid 2mg IV q2 hours PRN - Does not see an indication to escalate or start BILLING SPECIALIST at this time - COntinue supportive care with IVF, antiemetics, pain medications, and bedrest - Continue to trend LDH and CBC - Avoid transfusions - Dr. 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
[2018-05-25] MEDS ORDERED: OXYCODONE HCL IR 5 MG TABLET PO PRN (12:31)
--- NOTE | 2018-05-25 12:37 | PDOC PROGRESS REPORT ---
Subjective Progress Note for:: 05/25/18 Subjective:: Patient states that her pain is still severe. No better from yesterday. Very little relief with current regimen. Nausea and itching are controlled. ROS: Patient denies current nausea or constipation. No dyspnea. Continued chest pain. Nurses report that she falls asleep while asking for more pain medications, but otherwise, has remained compliant and content. Reason For Visit: SICKLE CELL CRISIS Physical Exam Vital Signs: Temp Pulse Resp BP Pulse Ox 97.9 F 91 18 115/49 L 92 05/25/18 08:04 05/25/18 08:04 05/25/18 08:04 05/25/18 08:04 05/25/18 08:04 Intake & Output 05/24/18 05/25/18 05/26/18 06:59 06:59 06:59 Intake Total 444 5668 1160 Output Total 800 1900 Balance 444 4868 -740 Weight 62.5 kg General appearance: PRESENT: no acute distress Head exam: PRESENT: normocephalic Respiratory exam: PRESENT: clear to auscultation william, unlabored Cardiovascular exam: PRESENT: RRR, systolic murmur GI/Abdominal exam: PRESENT: soft. ABSENT: tenderness Extremities exam: PRESENT: pedal edema Neurological exam: PRESENT: alert, awake Psychiatric exam: PRESENT: appropriate affect Skin exam: PRESENT: normal color Results Laboratory Results: 05/25/18 04:20 05/25/18 04:20 05/25/18 05/25/18 04:20 04:20 WBC 11.1 H RBC 2.65 L Hgb 8.9 L Hct 25.3 L MCV 95 MCH 33.4 MCHC 35.1 RDW 20.0 H Plt Count 308 Seg Neutrophils % 59.3 Lymphocytes % 31.6 Monocytes % 6.6 Eosinophils % 1.8 Basophils % 0.7 Absolute Neutrophils 6.6 Absolute Lymphocytes 3.5 Absolute Monocytes 0.7 Absolute Eosinophils 0.2 Absolute Basophils 0.1 Sodium 142.5 Potassium 4.5 Chloride 109 H Carbon Dioxide 25 Anion Gap 9 BUN 4 L Creatinine 0.53 Est GFR ( Amer) > 60 Est GFR (Non-Af Amer) > 60 Glucose 93 Calcium 9.0 Magnesium 1.7 Impressions: Chest X-Ray 05/23/18 18:14 IMPRESSION: Cannot exclude a limited left lower lobe pneumonia. Chest/Abdomen CTA 05/23/18 19:44 IMPRESSION: 1. Negative for pulmonary arterial embolus. 2. Nonspecific patchy opacities in the right lung, new when compared to previous CT chest back in 2016. These may represent areas of scarring however, underlying infectious process is not excluded. TECHNICAL DOCUMENTATION: Quality ID # 436: Final reports with documentation of one or more dose reduction techniques (e.g., Automated exposure control, adjustment of the mA and/or kV according to patient size, use of iterative reconstruction technique) 2010 [employer]- All Rights Reserved Assessment & Plan - Diagnosis (1) Sickle cell pain crisis Is this a current diagnosis for this admission?: Yes Plan: I will increase the oxyIR to 20 mg q 6 hours RTC and continue Dilaudid as before. She is still getting fluids and O2. Her HGB and LDH continue to show hymolysis. (2) Nausea & vomiting Qualifiers: Vomiting type: unspecified Vomiting Intractability: non-intractable Qualified Code(s): R11.2 - Nausea with vomiting, unspecified Is this a current diagnosis for this admission?: Yes Plan: Continue med as is. Encouraged fluids and good dietary habits. (3) DVT prophylaxis Is this a current diagnosis for this admission?: Yes Plan: Continue Lovenox. - Plan Summary Plan Summary: Please call if needed. I encouraged ambulation in the [place]. She is using her heating pad.
[2018-05-25] MEDS: AMITRIPTYLINE HCL 50 MG TABLET PO SCH (22:22)
[2018-05-25] MEDS: TEMAZEPAM 15 MG CAPSULE PO PRN (22:22)
[2018-05-26] MEDS: HYDROMORPHONE HCL INJ/PF 2 MG/ML AMPULE IV PRN ×8 (02:43→23:02)
[2018-05-26] MEDS: DIPHENHYDRAMINE HCL 25 MG CAPSULE PO PRN ×3 (02:43→23:22)
[2018-05-26] MEDS: ONDANSETRON HCL INJ/PF 4 MG/2 ML SDV IV PRN ×2 (04:47→12:22)
[2018-05-26] MEDS: 1/2 NORMAL SALINE 1,000 ML IV PRN ×3 (07:46→20:49)
--- NOTE | 2018-05-26 07:51 | PDOC PROGRESS REPORT ---
Subjective Progress Note for:: 05/26/18 Subjective:: Patient still having a lot of chest pain, having nausea continued, IV is poorly functioning so we discussed placement of PICC line today. Reason For Visit: SICKLE CELL CRISIS Physical Exam Vital Signs: Temp Pulse Resp BP Pulse Ox 97.8 F 81 16 103/47 L 87 L 05/26/18 03:08 05/26/18 03:08 05/26/18 03:08 05/26/18 03:08 05/26/18 03:08 Intake & Output 05/25/18 05/26/18 05/27/18 06:59 06:59 06:59 Intake Total 1994 1000 Output Total Balance 1990 1000 Weight 69 kg General appearance: PRESENT: no acute distress, well-developed, well-nourished Head exam: PRESENT: atraumatic, normocephalic Eye exam: PRESENT: conjunctiva pink, EOMI, PERRLA. ABSENT: scleral icterus Ear exam: PRESENT: normal external ear exam Mouth exam: PRESENT: moist, tongue midline Neck exam: ABSENT: carotid bruit, JVD, lymphadenopathy, thyromegaly Respiratory exam: PRESENT: clear to auscultation william. ABSENT: rales, rhonchi, wheezes Cardiovascular exam: PRESENT: RRR. ABSENT: diastolic murmur, rubs, systolic murmur Pulses: PRESENT: normal dorsalis pedis pul Vascular exam: PRESENT: normal capillary refill GI/Abdominal exam: PRESENT: normal bowel sounds, soft. ABSENT: distended, guarding, mass, organolmegaly, rebound, tenderness Rectal exam: PRESENT: deferred Extremities exam: PRESENT: full ROM. ABSENT: calf tenderness, clubbing, pedal edema Neurological exam: PRESENT: alert, awake, oriented to person, oriented to place , oriented to time, oriented to situation, CN II-XII grossly intact. ABSENT: motor sensory deficit Psychiatric exam: PRESENT: appropriate affect, normal mood. ABSENT: homicidal ideation, suicidal ideation Skin exam: PRESENT: dry, intact, warm. ABSENT: cyanosis, rash Results Impressions: Chest X-Ray 05/23/18 18:14 IMPRESSION: Cannot exclude a limited left lower lobe pneumonia. Chest/Abdomen CTA 05/23/18 19:44 IMPRESSION: 1. Negative for pulmonary arterial embolus. 2. Nonspecific patchy opacities in the right lung, new when compared to previous CT chest back in 2016. These may represent areas of scarring however, underlying infectious process is not excluded. TECHNICAL DOCUMENTATION: Quality ID # 436: Final reports with documentation of one or more dose reduction techniques (e.g., Automated exposure control, adjustment of the mA and/or kV according to patient size, use of iterative reconstruction technique) 2010 [employer]- All Rights Reserved Assessment & Plan - Diagnosis (1) Sickle cell pain crisis Is this a current diagnosis for this admission?: Yes Plan: Severe sickle cell pain crisis, increased Dilaudid, discontinue oxycodone, change oral Phenergan to IV, add bowel regimen. Plan PICC line placement. Patient generally requires several days on severe crisis. 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 - Time Time Spent with patient: 35 or more minutes - Inpatient Certification Based on my medical assessment, after consideration of the patient's comorbidities, presenting symptoms, or acuity I expect that the services needed warrant INPATIENT care.: Yes I certify that my determination is in accordance with my understanding of Medicare's requirements for reasonable and necessary INPATIENT services [42 CFR 412.3e].: Yes Medical Necessity: Need For IV Fluids, Need for Pain Control
[2018-05-26] MEDS ORDERED: POLYETHYLENE GLYCOL 3350 POWDER 17 GM/1 PACKET PO PRN (08:01)
[2018-05-26] MEDS ORDERED: NORMAL SALINE 10 ML SDV (AFTER EACH USE) IV PRN ×2 (08:04→13:56)
[2018-05-26] MEDS: AMITRIPTYLINE HCL 25 MG TABLET PO SCH (08:36)
[2018-05-26] MEDS: BUTALB/ACETAMINOPHEN/CAFFEINE 1 TAB EACH PO PRN ×2 (09:02→20:34)
[2018-05-26] MEDS: CYCLOBENZAPRINE HCL 10 MG TABLET PO SCH ×2 (09:25→22:54)
[2018-05-26] MEDS: AMLODIPINE BESYLATE 5 MG TABLET PO SCH (09:26)
[2018-05-26] MEDS: ENOXAPARIN SODIUM INJ 40 MG/0.4 ML DISP.SYRIN SUBCUT SCH (09:26)
[2018-05-26] MEDS: FOLIC ACID 1 MG TABLET PO SCH (09:26)
[2018-05-26] MEDS: PROMETHAZINE HCL INJ 25 MG/1 ML VIAL IV PRN ×3 (10:54→22:55)
[2018-05-26] MEDS ORDERED: PROMETHAZINE HCL INJ 25 MG/1 ML VIAL IV PRN (12:00)
[2018-05-26] MEDS: NORMAL SALINE 10 ML SDV (SCHEDULED) IV SCH ×3 (12:38→23:39)
--- NOTE | 2018-05-26 13:54 | RADIOLOGY REPORT (SQ) ---
EXAM DESCRIPTION: PICC INSERTION; U/S GUIDE FOR VASCULAR ACCESS; FLUORO/CV PLACEMENT COMPLETED DATE/TIME: 05/26/2018 1:34 pm; 05/26/2018 1:45 pm REASON FOR STUDY: UNABLE TO ESTABLISH PERIPHERAL ACCESS; IV ACCESS COMPARISON: None. FLUOROSCOPY TIME: 0.23 minutes. 1 images saved to PACS. TECHNIQUE: Fluoroscopic and ultrasound guided PICC placement. LIMITATIONS: None. PROCEDURE: After written consent and assessment were obtained, the patient was brought into the fluo roscopy room and placed supine on the table. Ultrasound evaluation of potential access sites were per formed. After successfully identifying a patent left basilic vein, the left arm was prepped and drape d in a sterile fashion along with the ultrasound probe. The entry site was anesthetized with 1% lidoc petra. A 21 gauge 7 cm needle was advanced through the skin and into the basilic vein under live ultra sound guidance. An ultrasound image was saved to PACS confirming access site. A .018 guide wire was then inserted through the needle and into the venous system. The needle was then removed and an 11 b lade scalpel was used to make a 1cm skin incision. A 5 fr peel-away sheath was advanced over the wir e and into the venous system. A measurement was then made using the existing wire and live fluoroscop ic guidance. The wire was then removed and trimmed. The PICC was advanced through the peel-away sheat h and into the venous system. The peel-away sheath was removed and the catheter was adhered to the pa tients arm with a stat lock. The catheter was then aspirated and flushed and a sterile bandage was pl aced over the access site. A fluoroscopic spot image was saved to PACS confirming the catheter tip w ithin the superior vena cava. IMPRESSION: SUCCESSFUL PLACEMENT OF A 5 FR DUAL LUMEN 43 CM PICC IN THE LEFT BASILIC VEIN. COMMENT: Patient medication list reviewed: Yes- Quality ID# 130:Eligible professional attests to doc umenting in the medical record they obtained, updated, or reviewed the patient's current medications. . Quality ID 145: Final reports for procedures using fluoroscopy that document radiation exposure rebecca angy, or exposure time and number of fluorographic images (if radiation exposure indices are not avail able) Quality ID #76: The patient was prepped and draped using maximum sterile barrier technique including cap, mask, sterile gown, sterile gloves, a large sterile sheet, hand hygiene, and 2% Chlorhexidine fo r cutaneous antisepsis. When ultrasound is used, sterile ultrasound techniques are followed requiring sterile gel and sterile probes. TECHNICAL DOCUMENTATION: JOB ID: [id number] [employer]- All Rights Reserved rev-11/22 Reading location - IP/workstation name: [email or web address] [id number]
[2018-05-26] MEDS: AMITRIPTYLINE HCL 50 MG TABLET PO SCH (22:53)
[2018-05-27] MEDS: ONDANSETRON 4 MG TAB.RAPDIS PO PRN (01:04)
[2018-05-27] MEDS: HYDROMORPHONE HCL INJ/PF 2 MG/ML AMPULE IV PRN ×9 (01:04→22:26)
[2018-05-27] MEDS: 1/2 NORMAL SALINE 1,000 ML IV PRN ×2 (04:21→22:27)
[2018-05-27] MEDS: PROMETHAZINE HCL INJ 25 MG/1 ML VIAL IV PRN ×3 (06:39→20:06)
--- NOTE | 2018-05-27 07:44 | PDOC PROGRESS REPORT ---
Subjective Progress Note for:: 05/27/18 Subjective:: Pt still w/ considerable pain, got a little rest overnight Reason For Visit: SICKLE CELL CRISIS Physical Exam Vital Signs: Temp Pulse Resp BP Pulse Ox 98.6 F 65 16 105/58 L 96 05/27/18 04:00 05/27/18 04:00 05/27/18 04:00 05/27/18 04:00 05/27/18 04:00 Intake & Output 05/26/18 05/27/18 05/28/18 06:59 06:59 06:59 Intake Total 1994 6007 Output Total 4 2550 Balance 1990 3457 Weight 69 kg 65.8 kg General appearance: PRESENT: no acute distress, well-developed, well-nourished Head exam: PRESENT: atraumatic, normocephalic Eye exam: PRESENT: conjunctiva pink, EOMI, PERRLA. ABSENT: scleral icterus Ear exam: PRESENT: normal external ear exam Mouth exam: PRESENT: moist, tongue midline Neck exam: ABSENT: carotid bruit, JVD, lymphadenopathy, thyromegaly Respiratory exam: PRESENT: clear to auscultation william. ABSENT: rales, rhonchi, wheezes Cardiovascular exam: PRESENT: RRR. ABSENT: diastolic murmur, rubs, systolic murmur Pulses: PRESENT: normal dorsalis pedis pul Vascular exam: PRESENT: normal capillary refill GI/Abdominal exam: PRESENT: normal bowel sounds, soft. ABSENT: distended, guarding, mass, organolmegaly, rebound, tenderness Rectal exam: PRESENT: deferred Extremities exam: PRESENT: full ROM. ABSENT: calf tenderness, clubbing, pedal edema Neurological exam: PRESENT: alert, awake, oriented to person, oriented to place , oriented to time, oriented to situation, CN II-XII grossly intact. ABSENT: motor sensory deficit Psychiatric exam: PRESENT: appropriate affect, normal mood. ABSENT: homicidal ideation, suicidal ideation Skin exam: PRESENT: dry, intact, warm. ABSENT: cyanosis, rash Results Impressions: Chest X-Ray 05/23/18 18:14 IMPRESSION: Cannot exclude a limited left lower lobe pneumonia. Chest/Abdomen CTA 05/23/18 19:44 IMPRESSION: 1. Negative for pulmonary arterial embolus. 2. Nonspecific patchy opacities in the right lung, new when compared to previous CT chest back in 2016. These may represent areas of scarring however, underlying infectious process is not excluded. TECHNICAL DOCUMENTATION: Quality ID # 436: Final reports with documentation of one or more dose reduction techniques (e.g., Automated exposure control, adjustment of the mA and/or kV according to patient size, use of iterative reconstruction technique) 2010 [employer]- All Rights Reserved Guidance Fluoroscopy 05/26/18 00:00 IMPRESSION: SUCCESSFUL PLACEMENT OF A 5 FR DUAL LUMEN 43 CM PICC IN THE LEFT BASILIC VEIN. Interventional Vascular Procedure 05/26/18 00:00 IMPRESSION: SUCCESSFUL PLACEMENT OF A 5 FR DUAL LUMEN 43 CM PICC IN THE LEFT BASILIC VEIN. PICC Line Insertion 05/26/18 00:00 IMPRESSION: SUCCESSFUL PLACEMENT OF A 5 FR DUAL LUMEN 43 CM PICC IN THE LEFT BASILIC VEIN. Assessment & Plan - Diagnosis (1) Sickle cell pain crisis Is this a current diagnosis for this admission?: Yes Plan: Increase dilaudid to 4mg IV q 2 hours prn, will need probably at least 48 more hours admit for crisis, con't other supportive care. I will be out for next few days, please call Dr. 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 Hemolytic anemia type : other hemoglobinopathy Qualified Code(s): D58.2 - Other hemoglobinopathies Is this a current diagnosis for this admission?: Yes Plan: Repeat CBC today, may need transfusion - Time Time Spent with patient: 35 or more minutes - Inpatient Certification Based on my medical assessment, after consideration of the patient's comorbidities, presenting symptoms, or acuity I expect that the services needed warrant INPATIENT care.: Yes I certify that my determination is in accordance with my understanding of Medicare's requirements for reasonable and necessary INPATIENT services [42 CFR 412.3e].: Yes Medical Necessity: Need for Pain Control
[2018-05-27 08:21] LABS: ABSOLUTE EOSINOPHILS # (AUTO) 0.2 10^3/uL (0.0-0.6); ABSOLUTE LYMPHOCYTES (AUTO) 1.6 10^3/uL (0.5-4.7); ABSOLUTE MONOCYTES (AUTO) 0.7 10^3/uL (0.1-1.4); ABSOLUTE NEUT (AUTO) 5.3 10^3/uL (1.7-8.2); BASOPHILS % (AUTO) 0.4 % (0-2); LYMPHOCYTES % (AUTO) 20.8 % (13-45); MEAN CORPUSCULAR HEMOGLOBIN 34.2 pg (27.0-33.4); MEAN CORPUSCULAR HGB CONC 36.7 g/dL (32.0-36.0); MEAN CORPUSCULAR VOLUME 93 fl (80-97); MONOCYTES % (AUTO) 9.4 % (3-13); PLATELET COUNT 277 10^3/uL (150-450); RED BLOOD COUNT 2.04 10^6/uL (3.72-5.28); RED CELL DISTRIBUTION WIDTH 21.4 % (11.5-14.0); SEGMENTED NEUTROPHILS % (AUTO) 67.4 % (42-78); TOTAL CELLS COUNTED % (AUTO) 100 %; WHITE BLOOD COUNT 7.9 10^3/uL (4.0-10.5)
[2018-05-27 09:13] LABS: ANION GAP 7 (5-19); BLOOD UREA NITROGEN 3 mg/dL (7-20); CALCIUM 8.4 mg/dL (8.4-10.2); CARBON DIOXIDE 27 mmol/L (22-30); CHLORIDE 105 mmol/L (98-107); GLUCOSE 85 mg/dL (75-110); POTASSIUM 3.8 mmol/L (3.6-5.0); SODIUM 138.8 mmol/L (137-145)
[2018-05-27] MEDS: AMLODIPINE BESYLATE 5 MG TABLET PO SCH (09:28)
[2018-05-27] MEDS: FOLIC ACID 1 MG TABLET PO SCH (09:28)
[2018-05-27] MEDS: CYCLOBENZAPRINE HCL 10 MG TABLET PO SCH ×2 (09:28→21:22)
[2018-05-27] MEDS: AMITRIPTYLINE HCL 25 MG TABLET PO SCH (09:29)
[2018-05-27] MEDS: ENOXAPARIN SODIUM INJ 40 MG/0.4 ML DISP.SYRIN SUBCUT SCH (09:29)
[2018-05-27] MEDS ORDERED: ACETAMINOPHEN 325 MG TABLET PO PRN (10:17)
[2018-05-27] MEDS ORDERED: DIPHENHYDRAMINE HCL 25 MG CAPSULE PO PRN (10:17)
[2018-05-27] MEDS ORDERED: FUROSEMIDE INJ/PF 20 MG/2 ML SDV IV PRN (10:18)
[2018-05-27] MEDS: NORMAL SALINE 10 ML SDV (SCHEDULED) IV SCH ×4 (17:26→21:29)
[2018-05-27] MEDS: HYDROXYUREA 500 MG CAPSULE PO SCH (17:26)
[2018-05-27] MEDS: AMITRIPTYLINE HCL 50 MG TABLET PO SCH (21:22)
[2018-05-27] MEDS: BUTALB/ACETAMINOPHEN/CAFFEINE 1 TAB EACH PO PRN (21:22)
[2018-05-28] MEDS: HYDROMORPHONE HCL INJ/PF 2 MG/ML AMPULE IV PRN ×10 (00:59→21:24)
[2018-05-28] MEDS: PROMETHAZINE HCL INJ 25 MG/1 ML VIAL IV PRN ×3 (03:02→16:54)
[2018-05-28] MEDS: 1/2 NORMAL SALINE 1,000 ML IV PRN ×3 (06:15→21:25)
[2018-05-28 07:20] LABS: HEMOGLOBIN 8.3 g/dL (12.0-15.5); MEAN CORPUSCULAR HGB CONC 36.3 g/dL (32.0-36.0); PLATELET COUNT 246 10^3/uL (150-450); RED BLOOD COUNT 2.61 10^6/uL (3.72-5.28); RED CELL DISTRIBUTION WIDTH 22.1 % (11.5-14.0); WHITE BLOOD COUNT 8.5 10^3/uL (4.0-10.5)
[2018-05-28] MEDS ORDERED: NA PHOS,M-B/NA PHOS,DI-BA (ADULT) 133 ML ENEMA PR ONE (07:42)
[2018-05-28 07:43] LABS: MEAN CORPUSCULAR VOLUME 88 fl (80-97)
[2018-05-28 07:54] LABS: ABSOLUTE MONOCYTES # (MANUAL) 0.3 10^3/uL (0.1-1.4); ANISOCYTOSIS 3+; BASOPHILS % (MANUAL) 0 % (0-2); EOSINOPHILS % (MANUAL) 2 % (0-6); LYMPHOCYTES % (MANUAL) 24 % (13-45); METAMYELOCYTES % (MANUAL) 1 % (0); MONOCYTES % (MANUAL) 4 % (3-13); PLATELET COMMENT ADEQUATE; POLYCHROMASIA SLIGHT; SEGMENTED NEUTROPHILS % (MAN) 69 % (42-78); SICKLE RED CELLS 2+; TOTAL CELLS COUNTED 100
[2018-05-28] MEDS: AMITRIPTYLINE HCL 25 MG TABLET PO SCH (08:05)
--- NOTE | 2018-05-28 09:02 | PDOC PROGRESS REPORT ---
Subjective Progress Note for:: 05/28/18 Subjective:: Patient states her pain is somewhat better than yesterday. She vomited last night. Not able to walk in ar[place] yet. Still constipated. ROS: increased pleuritic chest pain left base. No swelling. Reason For Visit: SICKLE CELL CRISIS Physical Exam Vital Signs: Temp Pulse Resp BP Pulse Ox 98.6 F 87 17 115/62 100 05/28/18 04:00 05/28/18 07:00 05/28/18 04:00 05/28/18 04:00 05/28/18 04:00 Intake & Output 05/27/18 05/28/18 05/29/18 06:59 06:59 06:59 Intake Total 6007 4218 Output Total 2550 2350 Balance 3457 1868 Weight 65.8 kg 69.1 kg General appearance: PRESENT: no acute distress, well-developed, well-nourished Head exam: PRESENT: normocephalic Eye exam: PRESENT: EOMI Respiratory exam: PRESENT: clear to auscultation william, unlabored Cardiovascular exam: PRESENT: RRR Extremities exam: ABSENT: pedal edema Neurological exam: PRESENT: alert, awake Psychiatric exam: PRESENT: appropriate affect Skin exam: PRESENT: normal color Results Laboratory Results: 05/28/18 06:20 05/27/18 08:25 05/27/18 05/27/18 05/28/18 08:25 11:30 06:20 WBC 8.5 RBC 2.61 L Hgb 8.3 L Hct 23.0 L MCV 88 D MCH 32.0 MCHC 36.3 H RDW 22.1 H Plt Count 246 Seg Neutrophils % Not Reportable Lymphocytes % Not Reportable Monocytes % Not Reportable Eosinophils % Not Reportable Basophils % Not Reportable Absolute Neutrophils Not Reportable Absolute Lymphocytes Not Reportable Absolute Monocytes Not Reportable Absolute Eosinophils Not Reportable Absolute Basophils Not Reportable Sodium 138.8 Potassium 3.8 Chloride 105 Carbon Dioxide 27 Anion Gap 7 BUN 3 L Creatinine 0.50 L Est GFR ( Amer) > 60 Est GFR (Non-Af Amer) > 60 Glucose 85 Calcium 8.4 Blood Type O POSITIVE Antibody Screen NEGATIVE Impressions: Chest X-Ray 05/23/18 18:14 IMPRESSION: Cannot exclude a limited left lower lobe pneumonia. Chest/Abdomen CTA 05/23/18 19:44 IMPRESSION: 1. Negative for pulmonary arterial embolus. 2. Nonspecific patchy opacities in the right lung, new when compared to previous CT chest back in 2016. These may represent areas of scarring however, underlying infectious process is not excluded. TECHNICAL DOCUMENTATION: Quality ID # 436: Final reports with documentation of one or more dose reduction techniques (e.g., Automated exposure control, adjustment of the mA and/or kV according to patient size, use of iterative reconstruction technique) 2010 [employer]- All Rights Reserved Guidance Fluoroscopy 05/26/18 00:00 IMPRESSION: SUCCESSFUL PLACEMENT OF A 5 FR DUAL LUMEN 43 CM PICC IN THE LEFT BASILIC VEIN. Interventional Vascular Procedure 05/26/18 00:00 IMPRESSION: SUCCESSFUL PLACEMENT OF A 5 FR DUAL LUMEN 43 CM PICC IN THE LEFT BASILIC VEIN. PICC Line Insertion 05/26/18 00:00 IMPRESSION: SUCCESSFUL PLACEMENT OF A 5 FR DUAL LUMEN 43 CM PICC IN THE LEFT BASILIC VEIN. Assessment & Plan - Diagnosis (1) Sickle cell pain crisis Is this a current diagnosis for this admission?: Yes Plan: Continue current pain medication without changes today. Her LDH remains elevated. She received blood transfusion yesterday and HGB has increased today. (2) Nausea & vomiting Qualifiers: Vomiting type: unspecified Vomiting Intractability: non-intractable Qualified Code(s): R11.2 - Nausea with vomiting, unspecified Is this a current diagnosis for this admission?: Yes Plan: Continue same meds. (3) DVT prophylaxis Is this a current diagnosis for this admission?: Yes Plan: Continue Lovenox prophyaxis. I have encouraged her to walk in [place] today. - Plan Summary Plan Summary: Patient requests Fleets enema today. I will arrange. I will repeat CXR today to compare to previous. If pain worsens, consider PE study. I have ordered Inspiratory spirometer for bedside use. Will be available if needed. Please call.
[2018-05-28] MEDS: NORMAL SALINE 10 ML SDV (SCHEDULED) IV SCH ×4 (09:26→21:32)
[2018-05-28] MEDS: FOLIC ACID 1 MG TABLET PO SCH (09:29)
[2018-05-28] MEDS: AMLODIPINE BESYLATE 5 MG TABLET PO SCH (09:29)
[2018-05-28] MEDS: CYCLOBENZAPRINE HCL 10 MG TABLET PO SCH ×2 (09:29→21:24)
[2018-05-28] MEDS: ENOXAPARIN SODIUM INJ 40 MG/0.4 ML DISP.SYRIN SUBCUT SCH (09:30)
[2018-05-28] MEDS: BUTALB/ACETAMINOPHEN/CAFFEINE 1 TAB EACH PO PRN ×2 (10:27→21:23)
--- NOTE | 2018-05-28 12:13 | RADIOLOGY REPORT (SQ) ---
EXAM DESCRIPTION: CHEST 2 VIEWS COMPLETED DATE/TIME: 05/28/2018 11:55 am REASON FOR STUDY: dyspnea and chest pain. compare to last COMPARISON: 05/25/2018 EXAM PARAMETERS: NUMBER OF VIEWS: two views TECHNIQUE: Digital Frontal and Lateral radiographic views of the chest acquired. RADIATION DOSE: NA LIMITATIONS: none FINDINGS: LUNGS AND PLEURA: There has been interval resolution of the previously described retrocard iac infiltrate on the left. On the current study there are some minimal linear densities in the righ t lung base most consistent with subsegmental atelectasis. Remaining lung babcock are clear. MEDIASTINUM AND HILAR STRUCTURES: No masses or contour abnormalities. HEART AND VASCULAR STRUCTURES: Heart normal size. No evidence for failure. BONES: No acute findings. HARDWARE: Left-sided PICC line is identified with its tip at the level of the right atrium. OTHER: No other significant finding. IMPRESSION: Interval resolution of the previously described retrocardiac infiltrate on the left. Mi nimal linear densities in the right lung base most consistent with subsegmental atelectasis. PICC li ne with its tip the level of the right atrium. Other findings as noted above TECHNICAL DOCUMENTATION: JOB ID: [id number] [employer]- All Rights Reserved Reading location - IP/workstation name: [email or web address]
[2018-05-28] MEDS: ONDANSETRON HCL INJ/PF 4 MG/2 ML SDV IV PRN (14:40)
--- NOTE | 2018-05-28 14:53 | PDOC PROGRESS REPORT ---
Subjective Progress Note for:: 05/27/18 Subjective:: PRANAV JOINER is a 27 year old female with history of sickle cell, presented to ED complaining of sickle cell crisis. He stated that her symptoms started last Saturday and believes believes it could have been triggered due to the recent cold weather. She was complaining of generalized pain in her thorax, upper extremities, abdomen and lower extremities, she feels like her pain is coming from her upper back to her chest, symptoms are associated with nausea and episode of nonbloody vomiting, she has several days of nonbloody diarrhea, denies dysuria, hematuria or frequency, also denies fever or chills. At home she takes oxycodone 15 mg every 4-6 hours as needed and has not improved her pain. Last crisis was about 2 weeks months ago and patient states that usually Dilaudid helps her with her pain. Patient follows with 05/26/2018. No acute events overnight. Patient is talking with her mother over the phone however she appears uncomfortable and seems to be in a lot of pain. Stating that her pain has not been controlled sufficiently and she is having generalized crampy pain. Patient denies any fever, nausea, vomiting, chills,, constipation or any urinary symptoms. 07/27/2017. No acute events overnight. Still complaining of persistent generalized pain. Denies any fever, chills, nausea, vomiting, diarrhea or constipation. Reason For Visit: SICKLE CELL CRISIS Physical Exam Vital Signs: Temp Pulse Resp BP Pulse Ox 98.1 F 88 18 111/64 100 05/28/18 07:34 05/28/18 14:00 05/28/18 12:49 05/28/18 12:49 05/28/18 12:49 Intake & Output 05/27/18 05/28/18 05/29/18 06:59 06:59 06:59 Intake Total 6009 8088 1918 Output Total 4940 2900 Balance 3457 1868 1918 Weight 65.8 kg 69.1 kg General appearance: PRESENT: no acute distress, well-developed, well-nourished Respiratory exam: PRESENT: clear to auscultation william. ABSENT: rales, rhonchi, wheezes Cardiovascular exam: PRESENT: RRR. ABSENT: diastolic murmur, rubs, systolic murmur GI/Abdominal exam: PRESENT: normal bowel sounds, soft. ABSENT: distended, guarding, mass, organolmegaly, rebound, tenderness Skin exam: PRESENT: dry, intact, warm. ABSENT: cyanosis, rash Results Laboratory Results: 05/28/18 06:20 05/27/18 08:25 05/27/18 05/28/18 11:30 06:20 WBC 8.5 RBC 2.61 L Hgb 8.3 L Hct 23.0 L MCV 88 D MCH 32.0 MCHC 36.3 H RDW 22.1 H Plt Count 246 Seg Neutrophils % Not Reportable Lymphocytes % Not Reportable Monocytes % Not Reportable Eosinophils % Not Reportable Basophils % Not Reportable Absolute Neutrophils Not Reportable Absolute Lymphocytes Not Reportable Absolute Monocytes Not Reportable Absolute Eosinophils Not Reportable Absolute Basophils Not Reportable Blood Type O POSITIVE Antibody Screen NEGATIVE Impressions: Chest/Abdomen CTA 05/23/18 19:44 IMPRESSION: 1. Negative for pulmonary arterial embolus. 2. Nonspecific patchy opacities in the right lung, new when compared to previous CT chest back in 2016. These may represent areas of scarring however, underlying infectious process is not excluded. TECHNICAL DOCUMENTATION: Quality ID # 436: Final reports with documentation of one or more dose reduction techniques (e.g., Automated exposure control, adjustment of the mA and/or kV according to patient size, use of iterative reconstruction technique) 2010 [employer]- All Rights Reserved Guidance Fluoroscopy 05/26/18 00:00 IMPRESSION: SUCCESSFUL PLACEMENT OF A 5 FR DUAL LUMEN 43 CM PICC IN THE LEFT BASILIC VEIN. Interventional Vascular Procedure 05/26/18 00:00 IMPRESSION: SUCCESSFUL PLACEMENT OF A 5 FR DUAL LUMEN 43 CM PICC IN THE LEFT BASILIC VEIN. PICC Line Insertion 05/26/18 00:00 IMPRESSION: SUCCESSFUL PLACEMENT OF A 5 FR DUAL LUMEN 43 CM PICC IN THE LEFT BASILIC VEIN. Chest X-Ray 05/28/18 00:00 IMPRESSION: Interval resolution of the previously described retrocardiac infiltrate on the left. Minimal linear densities in the right lung base most consistent with subsegmental atelectasis. PICC line with its tip the level of the right atrium. Other findings as noted above Assessment & Plan - Diagnosis (1) Sickle cell pain crisis Is this a current diagnosis for this admission?: Yes Plan: Severe generalized pain due to sickle cell crisis. IV narcotics, IV fluid, bowel regimen. Mild leukocytosis, no bandemia or left shift. Patient remains afebrile. Blood culture. Daily CBC. Monitor vitals. 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 H&H dropping. Will transfuse (3) Constipation Qualifiers: Constipation type: drug induced constipation Qualified Code(s): K59.03 - Drug induced constipation Is this a current diagnosis for this admission?: Yes Plan: Secondary to chronic opiates for sickle cell crisis. Bowel regimen (4) Homozygous sickle cell (SS) disease Is this a current diagnosis for this admission?: Yes Plan: Problem #1. Hematology/oncology on board. Recommendations.
--- NOTE | 2018-05-28 14:58 | PDOC PROGRESS REPORT ---
Subjective Progress Note for:: 05/28/18 Subjective:: PRANAV JOINER is a 27 year old female with history of sickle cell, presented to ED complaining of sickle cell crisis. He stated that her symptoms started last Saturday and believes believes it could have been triggered due to the recent cold weather. She was complaining of generalized pain in her thorax, upper extremities, abdomen and lower extremities, she feels like her pain is coming from her upper back to her chest, symptoms are associated with nausea and episode of nonbloody vomiting, she has several days of nonbloody diarrhea, denies dysuria, hematuria or frequency, also denies fever or chills. At home she takes oxycodone 15 mg every 4-6 hours as needed and has not improved her pain. Last crisis was about 2 weeks months ago and patient states that usually Dilaudid helps her with her pain. Patient follows with 05/26/2018. No acute events overnight. Patient is talking with her mother over the phone however she appears uncomfortable and seems to be in a lot of pain. Stating that her pain has not been controlled sufficiently and she is having generalized crampy pain. Patient denies any fever, nausea, vomiting, chills,, constipation or any urinary symptoms. 05/27/2018. No acute events overnight. Still complaining of persistent generalized pain. Denies any fever, chills, nausea, vomiting, diarrhea. Constipated 07/28/2017. Feeling better compared to yesterday. Still having generalized pain. Constipated and cannot ambulate sufficiently due to pain. Denies any fever chills nausea vomiting diarrhea or any urinary symptoms. Reason For Visit: SICKLE CELL CRISIS Physical Exam Vital Signs: Temp Pulse Resp BP Pulse Ox 98.1 F 88 18 111/64 100 05/28/18 07:34 05/28/18 14:00 05/28/18 12:49 05/28/18 12:49 05/28/18 12:49 Intake & Output 05/27/18 05/28/18 05/29/18 06:59 06:59 06:59 Intake Total 6007 4218 1918 Output Total 6440 2350 Balance 3457 1868 1918 Weight 65.8 kg 69.1 kg General appearance: PRESENT: no acute distress, mild distress, well-developed, well-nourished Respiratory exam: PRESENT: clear to auscultation william. ABSENT: rales, rhonchi, wheezes Cardiovascular exam: PRESENT: RRR. ABSENT: diastolic murmur, rubs, systolic murmur GI/Abdominal exam: PRESENT: normal bowel sounds, soft. ABSENT: distended, guarding, mass, organolmegaly, rebound, tenderness Results Laboratory Results: 05/28/18 06:20 05/27/18 08:25 05/27/18 05/28/18 11:30 06:20 WBC 8.5 RBC 2.61 L Hgb 8.3 L Hct 23.0 L MCV 88 D MCH 32.0 MCHC 36.3 H RDW 22.1 H Plt Count 246 Seg Neutrophils % Not Reportable Lymphocytes % Not Reportable Monocytes % Not Reportable Eosinophils % Not Reportable Basophils % Not Reportable Absolute Neutrophils Not Reportable Absolute Lymphocytes Not Reportable Absolute Monocytes Not Reportable Absolute Eosinophils Not Reportable Absolute Basophils Not Reportable Blood Type O POSITIVE Antibody Screen NEGATIVE Impressions: Chest/Abdomen CTA 05/23/18 19:44 IMPRESSION: 1. Negative for pulmonary arterial embolus. 2. Nonspecific patchy opacities in the right lung, new when compared to previous CT chest back in 2016. These may represent areas of scarring however, underlying infectious process is not excluded. TECHNICAL DOCUMENTATION: Quality ID # 436: Final reports with documentation of one or more dose reduction techniques (e.g., Automated exposure control, adjustment of the mA and/or kV according to patient size, use of iterative reconstruction technique) 2010 [employer]- All Rights Reserved Guidance Fluoroscopy 05/26/18 00:00 IMPRESSION: SUCCESSFUL PLACEMENT OF A 5 FR DUAL LUMEN 43 CM PICC IN THE LEFT BASILIC VEIN. Interventional Vascular Procedure 05/26/18 00:00 IMPRESSION: SUCCESSFUL PLACEMENT OF A 5 FR DUAL LUMEN 43 CM PICC IN THE LEFT BASILIC VEIN. PICC Line Insertion 05/26/18 00:00 IMPRESSION: SUCCESSFUL PLACEMENT OF A 5 FR DUAL LUMEN 43 CM PICC IN THE LEFT BASILIC VEIN. Chest X-Ray 05/28/18 00:00 IMPRESSION: Interval resolution of the previously described retrocardiac infiltrate on the left. Minimal linear densities in the right lung base most consistent with subsegmental atelectasis. PICC line with its tip the level of the right atrium. Other findings as noted above Assessment & Plan - Diagnosis (1) Sickle cell pain crisis Is this a current diagnosis for this admission?: Yes Plan: Severe generalized pain due to sickle cell crisis. IV narcotics, IV fluid, bowel regimen. Leukocytosis improving. Patient remains afebrile. Blood culture negative. Daily CBC. Monitor vitals. 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 Stable. Status post 2 unit transfusion on . CBC tomorrow. (3) Constipation Qualifiers: Constipation type: drug induced constipation Qualified Code(s): K59.03 - Drug induced constipation Is this a current diagnosis for this admission?: Yes Plan: Secondary to chronic opiates for sickle cell crisis. Bowel regimen and Fleet enema today (4) Homozygous sickle cell (SS) disease Is this a current diagnosis for this admission?: Yes Plan: Problem #1. Hematology/oncology on board. Recommendations.
[2018-05-28] MEDS: AMITRIPTYLINE HCL 50 MG TABLET PO SCH (21:23)
[2018-05-29] MEDS: HYDROMORPHONE HCL INJ/PF 2 MG/ML AMPULE IV PRN ×9 (04:05→22:08)
[2018-05-29] MEDS: PROMETHAZINE HCL INJ 25 MG/1 ML VIAL IV PRN ×3 (05:40→19:25)
[2018-05-29] MEDS: AMITRIPTYLINE HCL 25 MG TABLET PO SCH (08:40)
[2018-05-29] MEDS: 1/2 NORMAL SALINE 1,000 ML IV PRN ×2 (08:40→15:14)
[2018-05-29] MEDS: NORMAL SALINE 10 ML SDV (SCHEDULED) IV SCH ×3 (09:22→22:17)
[2018-05-29] MEDS: FOLIC ACID 1 MG TABLET PO SCH (09:26)
[2018-05-29] MEDS: AMLODIPINE BESYLATE 5 MG TABLET PO SCH (09:26)
[2018-05-29] MEDS: HYDROXYUREA 500 MG CAPSULE PO SCH (09:26)
[2018-05-29] MEDS: CYCLOBENZAPRINE HCL 10 MG TABLET PO SCH ×2 (09:26→22:14)
[2018-05-29] MEDS: ENOXAPARIN SODIUM INJ 40 MG/0.4 ML DISP.SYRIN SUBCUT SCH (09:27)
[2018-05-29 09:50] LABS: HEMATOCRIT 26.2 % (36.0-47.0); HEMOGLOBIN 9.3 g/dL (12.0-15.5); MEAN CORPUSCULAR HEMOGLOBIN 31.4 pg (27.0-33.4); MEAN CORPUSCULAR HGB CONC 35.5 g/dL (32.0-36.0); MEAN CORPUSCULAR VOLUME 89 fl (80-97); PLATELET COUNT 276 10^3/uL (150-450); RED BLOOD COUNT 2.96 10^6/uL (3.72-5.28); RED CELL DISTRIBUTION WIDTH 23.3 % (11.5-14.0); WHITE BLOOD COUNT 9.3 10^3/uL (4.0-10.5)
[2018-05-29 10:24] LABS: ABSOLUTE LYMPHOCYTES# (MANUAL) 3.3 10^3/uL (0.5-4.7); ABSOLUTE MONOCYTES # (MANUAL) 0.7 10^3/uL (0.1-1.4); ABSOLUTE NEUTROPHILS# (MANUAL) 4.9 10^3/uL (1.7-8.2); BASOPHILS % (MANUAL) 0 % (0-2); EOSINOPHILS % (MANUAL) 4 % (0-6); LYMPHOCYTES % (MANUAL) 34 % (13-45); MONOCYTES % (MANUAL) 8 % (3-13); NUCLEATED RED BLOOD CELLS 1 /100 WBC (0); SEGMENTED NEUTROPHILS % (MAN) 53 % (42-78); TOTAL CELLS COUNTED 100
[2018-05-29 10:25] LABS: ANISOCYTOSIS 3+; PLATELET COMMENT ADEQUATE; POLYCHROMASIA SLIGHT; SICKLE RED CELLS 2+
[2018-05-29] MEDS: LUBIPROSTONE 24 MCG CAPSULE PO SCH ×2 (11:03→17:19)
--- NOTE | 2018-05-29 13:42 | PDOC PROGRESS REPORT ---
Subjective Progress Note for:: 05/29/18 Subjective:: PRANAV JOINER is a 27 year old female with history of sickle cell, presented to ED complaining of sickle cell crisis. He stated that her symptoms started last Saturday and believes believes it could have been triggered due to the recent cold weather. She was complaining of generalized pain in her thorax, upper extremities, abdomen and lower extremities, she feels like her pain is coming from her upper back to her chest, symptoms are associated with nausea and episode of nonbloody vomiting, she has several days of nonbloody diarrhea, denies dysuria, hematuria or frequency, also denies fever or chills. At home she takes oxycodone 15 mg every 4-6 hours as needed and has not improved her pain. Last crisis was about 2 weeks months ago and patient states that usually Dilaudid helps her with her pain. Patient follows with 05/26/2018. No acute events overnight. Patient is talking with her mother over the phone however she appears uncomfortable and seems to be in a lot of pain. Stating that her pain has not been controlled sufficiently and she is having generalized crampy pain. Patient denies any fever, nausea, vomiting, chills,, constipation or any urinary symptoms. 05/27/2018. No acute events overnight. Still complaining of persistent generalized pain. Denies any fever, chills, nausea, vomiting, diarrhea. Constipated 05/28/2018. Feeling better compared to yesterday. Still having generalized pain. Constipated and cannot ambulate sufficiently due to pain. Denies any fever chills nausea vomiting diarrhea or any urinary symptoms.1 05/29/2018. No acute events overnight. Patient is feeling better than yesterday. Denies any fever, chills, nausea, vomiting, diarrhea. Still complaining of constipation. Reason For Visit: SICKLE CELL CRISIS Physical Exam Vital Signs: Temp Pulse Resp BP Pulse Ox 98.4 F 101 H 17 115/63 100 05/29/18 12:19 05/29/18 12:19 05/29/18 12:19 05/29/18 12:19 05/29/18 12:19 Intake & Output 05/28/18 05/29/18 05/30/18 06:59 06:59 06:59 Intake Total 4218 6048 Output Total 2350 1200 Balance 1868 4848 Weight 69.1 kg 67.3 kg General appearance: PRESENT: mild distress Respiratory exam: PRESENT: clear to auscultation william. ABSENT: rales, rhonchi, wheezes Cardiovascular exam: PRESENT: RRR. ABSENT: diastolic murmur, rubs, systolic murmur GI/Abdominal exam: PRESENT: normal bowel sounds, soft. ABSENT: distended, guarding, mass, organolmegaly, rebound, tenderness Results Laboratory Results: 05/29/18 09:27 05/27/18 08:25 05/29/18 09:27 WBC 9.3 RBC 2.96 L Hgb 9.3 L Hct 26.2 L MCV 89 MCH 31.4 MCHC 35.5 RDW 23.3 H Plt Count 276 Seg Neutrophils % Not Reportable Lymphocytes % Not Reportable Monocytes % Not Reportable Eosinophils % Not Reportable Basophils % Not Reportable Absolute Neutrophils Not Reportable Absolute Lymphocytes Not Reportable Absolute Monocytes Not Reportable Absolute Eosinophils Not Reportable Absolute Basophils Not Reportable Impressions: Chest/Abdomen CTA 05/23/18 19:44 IMPRESSION: 1. Negative for pulmonary arterial embolus. 2. Nonspecific patchy opacities in the right lung, new when compared to previous CT chest back in 2016. These may represent areas of scarring however, underlying infectious process is not excluded. TECHNICAL DOCUMENTATION: Quality ID # 436: Final reports with documentation of one or more dose reduction techniques (e.g., Automated exposure control, adjustment of the mA and/or kV according to patient size, use of iterative reconstruction technique) 2010 [employer]- All Rights Reserved Guidance Fluoroscopy 05/26/18 00:00 IMPRESSION: SUCCESSFUL PLACEMENT OF A 5 FR DUAL LUMEN 43 CM PICC IN THE LEFT BASILIC VEIN. Interventional Vascular Procedure 05/26/18 00:00 IMPRESSION: SUCCESSFUL PLACEMENT OF A 5 FR DUAL LUMEN 43 CM PICC IN THE LEFT BASILIC VEIN. PICC Line Insertion 05/26/18 00:00 IMPRESSION: SUCCESSFUL PLACEMENT OF A 5 FR DUAL LUMEN 43 CM PICC IN THE LEFT BASILIC VEIN. Chest X-Ray 05/28/18 00:00 IMPRESSION: Interval resolution of the previously described retrocardiac infiltrate on the left. Minimal linear densities in the right lung base most consistent with subsegmental atelectasis. PICC line with its tip the level of the right atrium. Other findings as noted above Assessment & Plan - Diagnosis (1) Sickle cell pain crisis Is this a current diagnosis for this admission?: Yes Plan: Severe generalized pain due to sickle cell crisis. IV narcotics, IV fluid, bowel regimen. Leukocytosis resolved. Hemoglobin more than 9 today. Patient remains afebrile. Blood culture negative. Daily CBC. Monitor vitals. 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 Stable. Status post 2 unit transfusion on . Hemoglobin 9.2 today. CBC tomorrow (3) Constipation Qualifiers: Constipation type: drug induced constipation Qualified Code(s): K59.03 - Drug induced constipation Is this a current diagnosis for this admission?: Yes Plan: Opioid induced. Continue bowel regimen. Started on Amitiza. (4) Homozygous sickle cell (SS) disease Is this a current diagnosis for this admission?: Yes Plan: Problem #1. Hematology/oncology on board. Recommendations.
[2018-05-29] MEDS: ONDANSETRON HCL INJ/PF 4 MG/2 ML SDV IV PRN (15:13)
[2018-05-29] MEDS: BUTALB/ACETAMINOPHEN/CAFFEINE 1 TAB EACH PO PRN (22:13)
[2018-05-29] MEDS: AMITRIPTYLINE HCL 50 MG TABLET PO SCH (22:15)
[2018-05-30] MEDS: HYDROMORPHONE HCL INJ/PF 2 MG/ML AMPULE IV PRN ×10 (00:19→22:16)
[2018-05-30] MEDS: TEMAZEPAM 15 MG CAPSULE PO PRN (00:20)
[2018-05-30] MEDS: NORMAL SALINE 10 ML SDV (SCHEDULED) IV SCH ×5 (03:01→23:23)
[2018-05-30] MEDS: PROMETHAZINE HCL INJ 25 MG/1 ML VIAL IV PRN ×4 (03:09→22:16)
[2018-05-30] MEDS: ONDANSETRON HCL INJ/PF 4 MG/2 ML SDV IV PRN ×2 (07:37→19:14)
[2018-05-30] MEDS: 1/2 NORMAL SALINE 1,000 ML IV PRN (07:41)
[2018-05-30 08:12] LABS: HEMATOCRIT 23.2 % (36.0-47.0); HEMOGLOBIN 8.3 g/dL (12.0-15.5); MEAN CORPUSCULAR HEMOGLOBIN 31.9 pg (27.0-33.4); MEAN CORPUSCULAR HGB CONC 35.9 g/dL (32.0-36.0); MEAN CORPUSCULAR VOLUME 89 fl (80-97); PLATELET COUNT 252 10^3/uL (150-450); RED BLOOD COUNT 2.61 10^6/uL (3.72-5.28); WHITE BLOOD COUNT 6.5 10^3/uL (4.0-10.5)
[2018-05-30 08:27] LABS: ABSOLUTE LYMPHOCYTES# (MANUAL) 1.9 10^3/uL (0.5-4.7); ABSOLUTE MONOCYTES # (MANUAL) 0.5 10^3/uL (0.1-1.4); ABSOLUTE NEUTROPHILS# (MANUAL) 3.9 10^3/uL (1.7-8.2); BASOPHILS % (MANUAL) 0 % (0-2); EOSINOPHILS % (MANUAL) 4 % (0-6); LYMPHOCYTES % (MANUAL) 28 % (13-45); MONOCYTES % (MANUAL) 7 % (3-13); SEGMENTED NEUTROPHILS % (MAN) 60 % (42-78); TOTAL CELLS COUNTED 100
[2018-05-30 08:29] LABS: ANISOCYTOSIS 3+; PAPPENHEIMER BODIES PRESENT; PLATELET COMMENT ADEQUATE; POLYCHROMASIA SLIGHT; SICKLE RED CELLS 2+; TARGET CELLS SLIGHT
[2018-05-30 08:35] LABS: ALANINE AMINOTRANSFERASE 27 U/L (9-52); ALBUMIN 3.1 g/dL (3.5-5.0); ALKALINE PHOSPHATASE 58 U/L (38-126); ANION GAP 8 (5-19); ASPARTATE AMINO TRANSFERASE 36 U/L (14-36); BILIRUBIN,DIRECT 0.2 mg/dL (0.0-0.4); BILIRUBIN,TOTAL 1.8 mg/dL (0.2-1.3); BLOOD UREA NITROGEN 3 mg/dL (7-20); CALCIUM 7.7 mg/dL (8.4-10.2); CARBON DIOXIDE 23 mmol/L (22-30); CHLORIDE 104 mmol/L (98-107); GLUCOSE 81 mg/dL (75-110); POTASSIUM 3.5 mmol/L (3.6-5.0); SODIUM 135.1 mmol/L (137-145); TOTAL PROTEIN 5.5 g/dL (6.3-8.2)
[2018-05-30] MEDS: FOLIC ACID 1 MG TABLET PO SCH (09:39)
[2018-05-30] MEDS: AMITRIPTYLINE HCL 25 MG TABLET PO SCH (09:39)
[2018-05-30] MEDS: AMLODIPINE BESYLATE 5 MG TABLET PO SCH (09:39)
[2018-05-30] MEDS: CYCLOBENZAPRINE HCL 10 MG TABLET PO SCH ×2 (09:41→22:17)
[2018-05-30] MEDS: ENOXAPARIN SODIUM INJ 40 MG/0.4 ML DISP.SYRIN SUBCUT SCH (09:41)
[2018-05-30] MEDS ORDERED: LUBIPROSTONE 8 MCG CAPSULE PO PRN (10:00)
--- NOTE | 2018-05-30 11:51 | PDOC PROGRESS REPORT ---
Subjective Progress Note for:: 05/30/18 Subjective:: PRANAV JOINER is a 27 year old female with history of sickle cell, presented to ED complaining of sickle cell crisis. He stated that her symptoms started last Saturday and believes believes it could have been triggered due to the recent cold weather. She was complaining of generalized pain in her thorax, upper extremities, abdomen and lower extremities, she feels like her pain is coming from her upper back to her chest, symptoms are associated with nausea and episode of nonbloody vomiting, she has several days of nonbloody diarrhea, denies dysuria, hematuria or frequency, also denies fever or chills. At home she takes oxycodone 15 mg every 4-6 hours as needed and has not improved her pain. Last crisis was about 2 weeks months ago and patient states that usually Dilaudid helps her with her pain. Patient follows with 05/26/2018. No acute events overnight. Patient is talking with her mother over the phone however she appears uncomfortable and seems to be in a lot of pain. Stating that her pain has not been controlled sufficiently and she is having generalized crampy pain. Patient denies any fever, nausea, vomiting, chills,, constipation or any urinary symptoms. 05/27/2018. No acute events overnight. Still complaining of persistent generalized pain. Denies any fever, chills, nausea, vomiting, diarrhea. Constipated 05/28/2018. Feeling better compared to yesterday. Still having generalized pain. Constipated and cannot ambulate sufficiently due to pain. Denies any fever chills nausea vomiting diarrhea or any urinary symptoms.1 05/29/2018. No acute events overnight. Patient is feeling better than yesterday. Denies any fever, chills, nausea, vomiting, diarrhea. Still complaining of constipation. 05/30/2018. No acute events overnight. Patient is said that she is still feeling a lot of pain and could not get any good night sleep. Patient has resolved. Denies any fever, chills, nausea, vomiting, diarrhea or any constipation. Patient is able to ambulate better that since admission. She is p.o. tolerant Reason For Visit: SICKLE CELL CRISIS Physical Exam Vital Signs: Temp Pulse Resp BP Pulse Ox 98.4 F 94 18 124/71 96 05/30/18 08:23 05/30/18 08:23 05/30/18 08:23 05/30/18 08:23 05/30/18 08:23 Intake & Output 05/29/18 05/30/18 05/31/18 06:59 06:59 06:59 Intake Total 6048 3693 Output Total 1200 2600 Balance 4848 1093 Weight 67.3 kg 68.2 kg General appearance: PRESENT: no acute distress, well-developed, well-nourished Cardiovascular exam: PRESENT: RRR. ABSENT: diastolic murmur, rubs, systolic murmur GI/Abdominal exam: PRESENT: normal bowel sounds, soft. ABSENT: distended, guarding, mass, organolmegaly, rebound, tenderness Musculoskeletal exam: PRESENT: tenderness - Diffuse muscular tenderness. Results Laboratory Results: 05/30/18 07:56 05/30/18 07:56 05/30/18 05/30/18 07:56 07:56 WBC 6.5 RBC 2.61 L Hgb 8.3 L Hct 23.2 L MCV 89 MCH 31.9 MCHC 35.9 RDW 23.0 H Plt Count 252 Seg Neutrophils % Not Reportable Lymphocytes % Not Reportable Monocytes % Not Reportable Eosinophils % Not Reportable Basophils % Not Reportable Absolute Neutrophils Not Reportable Absolute Lymphocytes Not Reportable Absolute Monocytes Not Reportable Absolute Eosinophils Not Reportable Absolute Basophils Not Reportable Sodium 135.1 L Potassium 3.5 L Chloride 104 Carbon Dioxide 23 Anion Gap 8 BUN 3 L Creatinine 0.39 L Est GFR ( Amer) > 60 Est GFR (Non-Af Amer) > 60 Glucose 81 Calcium 7.7 L Total Bilirubin 1.8 H AST 36 ALT 27 Alkaline Phosphatase 58 Total Protein 5.5 L Albumin 3.1 L Impressions: Chest/Abdomen CTA 05/23/18 19:44 IMPRESSION: 1. Negative for pulmonary arterial embolus. 2. Nonspecific patchy opacities in the right lung, new when compared to previous CT chest back in 2016. These may represent areas of scarring however, underlying infectious process is not excluded. TECHNICAL DOCUMENTATION: Quality ID # 436: Final reports with documentation of one or more dose reduction techniques (e.g., Automated exposure control, adjustment of the mA and/or kV according to patient size, use of iterative reconstruction technique) 2010 [employer]- All Rights Reserved Guidance Fluoroscopy 05/26/18 00:00 IMPRESSION: SUCCESSFUL PLACEMENT OF A 5 FR DUAL LUMEN 43 CM PICC IN THE LEFT BASILIC VEIN. Interventional Vascular Procedure 05/26/18 00:00 IMPRESSION: SUCCESSFUL PLACEMENT OF A 5 FR DUAL LUMEN 43 CM PICC IN THE LEFT BASILIC VEIN. PICC Line Insertion 05/26/18 00:00 IMPRESSION: SUCCESSFUL PLACEMENT OF A 5 FR DUAL LUMEN 43 CM PICC IN THE LEFT BASILIC VEIN. Chest X-Ray 05/28/18 00:00 IMPRESSION: Interval resolution of the previously described retrocardiac infiltrate on the left. Minimal linear densities in the right lung base most consistent with subsegmental atelectasis. PICC line with its tip the level of the right atrium. Other findings as noted above Assessment & Plan - Diagnosis (1) Sickle cell pain crisis Is this a current diagnosis for this admission?: Yes Plan: Severe generalized pain due to sickle cell crisis. IV narcotics, IV fluid, bowel regimen. Leukocytosis resolved. Hemoglobin more than 8.3. Today. Patient remains afebrile. Blood culture negative. Daily CBC. Monitor vitals. 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 Stable. Status post 2 unit transfusion on . Hemoglobin 8.3 today. CBC tomorrow (3) Constipation Qualifiers: Constipation type: drug induced constipation Qualified Code(s): K59.03 - Drug induced constipation Is this a current diagnosis for this admission?: Yes Plan: Opioid induced. Continue bowel regimen. Started on Amitiza. (4) Homozygous sickle cell (SS) disease Is this a current diagnosis for this admission?: Yes Plan: Problem #1. Hematology/oncology on board. Recommendations.
[2018-05-30] MEDS: POTASSI CL 20 MEQ/NS 1L 1000 ML IV PRN ×3 (14:00→23:18)
[2018-05-30] MEDS: OXYCODONE HCL IR 5 MG TABLET PO PRN (19:14)
[2018-05-30] MEDS: AMITRIPTYLINE HCL 50 MG TABLET PO SCH (22:18)
[2018-05-31] MEDS: HYDROMORPHONE HCL INJ/PF 2 MG/ML AMPULE IV PRN ×11 (00:18→22:55)
[2018-05-31] MEDS: TEMAZEPAM 15 MG CAPSULE PO PRN (00:18)
[2018-05-31] MEDS: POTASSI CL 20 MEQ/NS 1L 1000 ML IV PRN ×3 (05:44→18:26)
[2018-05-31] MEDS: PROMETHAZINE HCL INJ 25 MG/1 ML VIAL IV PRN ×3 (05:44→18:27)
[2018-05-31 06:08] LABS: HEMATOCRIT 24.4 % (36.0-47.0); HEMOGLOBIN 8.7 g/dL (12.0-15.5); MEAN CORPUSCULAR HEMOGLOBIN 31.7 pg (27.0-33.4); MEAN CORPUSCULAR HGB CONC 35.7 g/dL (32.0-36.0); MEAN CORPUSCULAR VOLUME 89 fl (80-97); PLATELET COUNT 269 10^3/uL (150-450); RED BLOOD COUNT 2.75 10^6/uL (3.72-5.28); RED CELL DISTRIBUTION WIDTH 22.8 % (11.5-14.0); WHITE BLOOD COUNT 6.6 10^3/uL (4.0-10.5)
[2018-05-31 06:22] LABS: ALANINE AMINOTRANSFERASE 19 U/L (9-52); ALBUMIN 3.4 g/dL (3.5-5.0); ALKALINE PHOSPHATASE 59 U/L (38-126); ANION GAP 9 (5-19); ASPARTATE AMINO TRANSFERASE 29 U/L (14-36); BILIRUBIN,DIRECT 0.3 mg/dL (0.0-0.4); BILIRUBIN,TOTAL 1.4 mg/dL (0.2-1.3); CALCIUM 8.4 mg/dL (8.4-10.2); CARBON DIOXIDE 25 mmol/L (22-30); CHLORIDE 108 mmol/L (98-107); GLUCOSE 99 mg/dL (75-110); POTASSIUM 3.8 mmol/L (3.6-5.0); SODIUM 141.6 mmol/L (137-145); TOTAL PROTEIN 6.1 g/dL (6.3-8.2)
[2018-05-31 06:25] LABS: BLOOD UREA NITROGEN < 2 mg/dL (7-20)
[2018-05-31 06:34] LABS: ABSOLUTE LYMPHOCYTES# (MANUAL) 1.8 10^3/uL (0.5-4.7); ABSOLUTE MONOCYTES # (MANUAL) 0.9 10^3/uL (0.1-1.4); ABSOLUTE NEUTROPHILS# (MANUAL) 3.7 10^3/uL (1.7-8.2); BAND NEUTROPHILS % (MANUAL) 2 % (3-5); BASOPHILS % (MANUAL) 0 % (0-2); EOSINOPHILS % (MANUAL) 2 % (0-6); LYMPHOCYTES % (MANUAL) 27 % (13-45); MONOCYTES % (MANUAL) 14 % (3-13); NUCLEATED RED BLOOD CELLS 1 /100 WBC (0); SEGMENTED NEUTROPHILS % (MAN) 54 % (42-78); TOTAL CELLS COUNTED 100
[2018-05-31 06:36] LABS: ANISOCYTOSIS 3+; HOWELL-JOLLY BODIES PRESENT; OVALOCYTES SLIGHT; PLATELET COMMENT ADEQUATE; POIKILOCYTOSIS 1+; POLYCHROMASIA SLIGHT; SICKLE RED CELLS 1+; TARGET CELLS SLIGHT; TOXIC VACUOLATION PRESENT
[2018-05-31] MEDS: AMITRIPTYLINE HCL 25 MG TABLET PO SCH (09:17)
[2018-05-31] MEDS: HYDROXYUREA 500 MG CAPSULE PO SCH (09:18)
[2018-05-31] MEDS: CYCLOBENZAPRINE HCL 10 MG TABLET PO SCH ×2 (09:18→22:56)
[2018-05-31] MEDS: FOLIC ACID 1 MG TABLET PO SCH (09:18)
[2018-05-31] MEDS: ENOXAPARIN SODIUM INJ 40 MG/0.4 ML DISP.SYRIN SUBCUT SCH (09:19)
[2018-05-31] MEDS: NORMAL SALINE 10 ML SDV (SCHEDULED) IV SCH ×4 (09:19→22:57)
[2018-05-31] MEDS: AMLODIPINE BESYLATE 5 MG TABLET PO SCH (09:19)
[2018-05-31] MEDS: OXYCODONE HCL IR 5 MG TABLET PO PRN (09:19)
--- NOTE | 2018-05-31 10:57 | PDOC PROGRESS REPORT ---
Subjective Progress Note for:: 05/31/18 Subjective:: PRANAV JOINER is a 27 year old female with history of sickle cell, presented to ED complaining of sickle cell crisis. He stated that her symptoms started last Saturday and believes believes it could have been triggered due to the recent cold weather. She was complaining of generalized pain in her thorax, upper extremities, abdomen and lower extremities, she feels like her pain is coming from her upper back to her chest, symptoms are associated with nausea and episode of nonbloody vomiting, she has several days of nonbloody diarrhea, denies dysuria, hematuria or frequency, also denies fever or chills. At home she takes oxycodone 15 mg every 4-6 hours as needed and has not improved her pain. Last crisis was about 2 weeks months ago and patient states that usually Dilaudid helps her with her pain. Patient follows with 05/26/2018. No acute events overnight. Patient is talking with her mother over the phone however she appears uncomfortable and seems to be in a lot of pain. Stating that her pain has not been controlled sufficiently and she is having generalized crampy pain. Patient denies any fever, nausea, vomiting, chills,, constipation or any urinary symptoms. 05/27/2018. No acute events overnight. Still complaining of persistent generalized pain. Denies any fever, chills, nausea, vomiting, diarrhea. Constipated 05/28/2018. Feeling better compared to yesterday. Still having generalized pain. Constipated and cannot ambulate sufficiently due to pain. Denies any fever chills nausea vomiting diarrhea or any urinary symptoms.1 05/29/2018. No acute events overnight. Patient is feeling better than yesterday. Denies any fever, chills, nausea, vomiting, diarrhea. Still complaining of constipation. 05/30/2018. No acute events overnight. Patient is said that she is still feeling a lot of pain and could not get any good night sleep. Patient has resolved. Denies any fever, chills, nausea, vomiting, diarrhea or any constipation. Patient is able to ambulate better that since admission. She is p.o. tolerant 05/31/2018. No acute events overnight. Patient still feeling persistent generalized pain and has not been able to sleep with residual. Patient is also complaining of nonbloody diarrhea for the last 2 days however denying any abdominal pain nausea vomiting diarrhea fever chills shortness of breath or any chest pain. Reason For Visit: SICKLE CELL CRISIS Physical Exam Vital Signs: Temp Pulse Resp BP Pulse Ox 98.6 F 90 16 129/72 H 97 05/31/18 08:00 05/31/18 08:00 05/31/18 08:00 05/31/18 08:00 05/31/18 08:00 Intake & Output 05/30/18 05/31/18 06/01/18 06:59 06:59 06:59 Intake Total 3693 5561 Output Total 2600 3200 Balance 1093 2361 Weight 68.2 kg 68.2 kg General appearance: PRESENT: no acute distress, well-developed, well-nourished Respiratory exam: PRESENT: clear to auscultation william. ABSENT: rales, rhonchi, wheezes Cardiovascular exam: PRESENT: RRR. ABSENT: diastolic murmur, rubs, systolic murmur GI/Abdominal exam: PRESENT: normal bowel sounds, soft. ABSENT: distended, guarding, mass, organolmegaly, rebound, tenderness Extremities exam: PRESENT: full ROM, tenderness - Generalized tenderness. ABSENT: calf tenderness, clubbing, pedal edema Results Laboratory Results: 05/31/18 05:50 05/31/18 05:50 05/31/18 05/31/18 05:50 05:50 WBC 6.6 RBC 2.75 L Hgb 8.7 L Hct 24.4 L MCV 89 MCH 31.7 MCHC 35.7 RDW 22.8 H Plt Count 269 Seg Neutrophils % Not Reportable Lymphocytes % Not Reportable Monocytes % Not Reportable Eosinophils % Not Reportable Basophils % Not Reportable Absolute Neutrophils Not Reportable Absolute Lymphocytes Not Reportable Absolute Monocytes Not Reportable Absolute Eosinophils Not Reportable Absolute Basophils Not Reportable Sodium 141.6 Potassium 3.8 Chloride 108 H Carbon Dioxide 25 Anion Gap 9 BUN < 2 L Creatinine 0.46 L Est GFR ( Amer) > 60 Est GFR (Non-Af Amer) > 60 Glucose 99 Calcium 8.4 Total Bilirubin 1.4 H AST 29 ALT 19 Alkaline Phosphatase 59 Total Protein 6.1 L Albumin 3.4 L Impressions: Chest/Abdomen CTA 05/23/18 19:44 IMPRESSION: 1. Negative for pulmonary arterial embolus. 2. Nonspecific patchy opacities in the right lung, new when compared to previous CT chest back in 2016. These may represent areas of scarring however, underlying infectious process is not excluded. TECHNICAL DOCUMENTATION: Quality ID # 436: Final reports with documentation of one or more dose reduction techniques (e.g., Automated exposure control, adjustment of the mA and/or kV according to patient size, use of iterative reconstruction technique) 2010 [employer]- All Rights Reserved Guidance Fluoroscopy 05/26/18 00:00 IMPRESSION: SUCCESSFUL PLACEMENT OF A 5 FR DUAL LUMEN 43 CM PICC IN THE LEFT BASILIC VEIN. Interventional Vascular Procedure 05/26/18 00:00 IMPRESSION: SUCCESSFUL PLACEMENT OF A 5 FR DUAL LUMEN 43 CM PICC IN THE LEFT BASILIC VEIN. PICC Line Insertion 05/26/18 00:00 IMPRESSION: SUCCESSFUL PLACEMENT OF A 5 FR DUAL LUMEN 43 CM PICC IN THE LEFT BASILIC VEIN. Chest X-Ray 05/28/18 00:00 IMPRESSION: Interval resolution of the previously described retrocardiac infiltrate on the left. Minimal linear densities in the right lung base most consistent with subsegmental atelectasis. PICC line with its tip the level of the right atrium. Other findings as noted above Assessment & Plan - Diagnosis (1) Diarrhea Is this a current diagnosis for this admission?: Yes Plan: Not received any antibiotics on this admission. Workup for C. difficile, ova and parasite, leukocytes, Gram stain and culture. CBC within normal limits patient is afebrile. Monitor volume status and electrolytes. BMP tomorrow. (2) Sickle cell pain crisis Is this a current diagnosis for this admission?: Yes Plan: Persistent severe generalized pain due to sickle cell crisis. IV narcotics, IV fluid, bowel regimen. Leukocytosis resolved. Hemoglobin 8.7 from 8.3. Patient remains afebrile. Blood culture negative. Daily CBC. Monitor vitals. Taper IV narcotics switched to p.o. as possible. 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 Stable. Status post 2 unit transfusion on . Hemoglobin 8.7 from 8.3 today. CBC tomorrow (4) Constipation Qualifiers: Constipation type: drug induced constipation Qualified Code(s): K59.03 - Drug induced constipation Is this a current diagnosis for this admission?: Yes Plan: Opioid induced. Resolved. Patient having diarrhea. Hold bowel regimen. (5) Homozygous sickle cell (SS) disease Is this a current diagnosis for this admission?: Yes Plan: Problem #1. Hematology/oncology on board. Recommendations.
[2018-05-31] MEDS: ONDANSETRON HCL INJ/PF 4 MG/2 ML SDV IV PRN (14:49)
--- NOTE | 2018-05-31 15:12 | PDOC PROGRESS REPORT ---
Subjective Progress Note for:: 05/31/18 Subjective:: Patient states that the pain has not significantly changed. Chest pain a bit better, but pleuritic pain and abdominal pain remains. She has been trying to wear her oxygen and drink plenty of fluids. She is now having increased diarrhea with some fecal incontinence. ROS: nausea. diarrhea, pain all over. No dyspnea. Reason For Visit: SICKLE CELL CRISIS Physical Exam Vital Signs: Temp Pulse Resp BP Pulse Ox 98.2 F 95 16 129/61 H 94 05/31/18 12:00 05/31/18 12:00 05/31/18 12:00 05/31/18 12:00 05/31/18 12:00 Intake & Output 05/30/18 05/31/18 06/01/18 06:59 06:59 06:59 Intake Total 3693 5561 987 Output Total 2600 3200 Balance 1093 2361 987 Weight 68.2 kg 68.2 kg General appearance: PRESENT: no acute distress, well-developed, well-nourished Head exam: PRESENT: normocephalic Eye exam: PRESENT: EOMI Respiratory exam: PRESENT: clear to auscultation william, unlabored Cardiovascular exam: PRESENT: RRR GI/Abdominal exam: PRESENT: soft, tenderness Neurological exam: PRESENT: alert, awake Psychiatric exam: PRESENT: appropriate affect Skin exam: PRESENT: normal color Results Laboratory Results: 05/31/18 05:50 05/31/18 05:50 05/31/18 05/31/18 05/31/18 05:50 05:50 10:22 WBC 6.6 RBC 2.75 L Hgb 8.7 L Hct 24.4 L MCV 89 MCH 31.7 MCHC 35.7 RDW 22.8 H Plt Count 269 Seg Neutrophils % Not Reportable Lymphocytes % Not Reportable Monocytes % Not Reportable Eosinophils % Not Reportable Basophils % Not Reportable Absolute Neutrophils Not Reportable Absolute Lymphocytes Not Reportable Absolute Monocytes Not Reportable Absolute Eosinophils Not Reportable Absolute Basophils Not Reportable Sodium 141.6 Potassium 3.8 Chloride 108 H Carbon Dioxide 25 Anion Gap 9 BUN < 2 L Creatinine 0.46 L Est GFR ( Amer) > 60 Est GFR (Non-Af Amer) > 60 Glucose 99 Calcium 8.4 Total Bilirubin 1.4 H AST 29 ALT 19 Alkaline Phosphatase 59 Total Protein 6.1 L Albumin 3.4 L Stool for White Cells NO WBCs SEEN Impressions: Chest/Abdomen CTA 05/23/18 19:44 IMPRESSION: 1. Negative for pulmonary arterial embolus. 2. Nonspecific patchy opacities in the right lung, new when compared to previous CT chest back in 2016. These may represent areas of scarring however, underlying infectious process is not excluded. TECHNICAL DOCUMENTATION: Quality ID # 436: Final reports with documentation of one or more dose reduction techniques (e.g., Automated exposure control, adjustment of the mA and/or kV according to patient size, use of iterative reconstruction technique) 2010 [employer]- All Rights Reserved Guidance Fluoroscopy 05/26/18 00:00 IMPRESSION: SUCCESSFUL PLACEMENT OF A 5 FR DUAL LUMEN 43 CM PICC IN THE LEFT BASILIC VEIN. Interventional Vascular Procedure 05/26/18 00:00 IMPRESSION: SUCCESSFUL PLACEMENT OF A 5 FR DUAL LUMEN 43 CM PICC IN THE LEFT BASILIC VEIN. PICC Line Insertion 05/26/18 00:00 IMPRESSION: SUCCESSFUL PLACEMENT OF A 5 FR DUAL LUMEN 43 CM PICC IN THE LEFT BASILIC VEIN. Chest X-Ray 05/28/18 00:00 IMPRESSION: Interval resolution of the previously described retrocardiac infiltrate on the left. Minimal linear densities in the right lung base most consistent with subsegmental atelectasis. PICC line with its tip the level of the right atrium. Other findings as noted above Assessment & Plan - Diagnosis (1) Sickle cell pain crisis Is this a current diagnosis for this admission?: Yes Plan: Continue meds without changes today. HGB stable. LDH remains elevated. (2) Nausea & vomiting Qualifiers: Vomiting type: unspecified Vomiting Intractability: non-intractable Qualified Code(s): R11.2 - Nausea with vomiting, unspecified Is this a current diagnosis for this admission?: Yes Plan: Continue current nausea meds. (3) DVT prophylaxis Is this a current diagnosis for this admission?: Yes (4) Diarrhea Is this a current diagnosis for this admission?: Yes Plan: C.dif and leucocytes were both negative. Will start imodium and add lomotil if needed. - Plan Summary Plan Summary: Patient encouraged to walk in [place].
[2018-05-31] MEDS: LOPERAMIDE HCL 2 MG CAPSULE PO PRN ×2 (15:29→22:56)
[2018-05-31] MEDS: AMITRIPTYLINE HCL 50 MG TABLET PO SCH (22:56)
[2018-06-01] MEDS: PROMETHAZINE HCL INJ 25 MG/1 ML VIAL IV PRN ×4 (01:10→21:34)
[2018-06-01] MEDS: DIPHENHYDRAMINE HCL 25 MG CAPSULE PO PRN (01:10)
[2018-06-01] MEDS: HYDROMORPHONE HCL INJ/PF 2 MG/ML AMPULE IV PRN ×11 (01:10→23:42)
[2018-06-01] MEDS: POTASSI CL 20 MEQ/NS 1L 1000 ML IV PRN ×3 (01:14→18:55)
[2018-06-01] MEDS: OXYCODONE HCL IR 5 MG TABLET PO PRN ×3 (02:31→19:43)
[2018-06-01 05:50] LABS: ABSOLUTE EOSINOPHILS # (AUTO) 0.1 10^3/uL (0.0-0.6); ABSOLUTE LYMPHOCYTES (AUTO) 1.9 10^3/uL (0.5-4.7); ABSOLUTE MONOCYTES (AUTO) 1.1 10^3/uL (0.1-1.4); HEMOGLOBIN 8.4 g/dL (12.0-15.5); RED CELL DISTRIBUTION WIDTH 22.1 % (11.5-14.0); TOTAL CELLS COUNTED % (AUTO) 100 %
[2018-06-01 05:58] LABS: ABSOLUTE NEUT (AUTO) 2.5 10^3/uL (1.7-8.2); BASOPHILS % (AUTO) 0.3 % (0-2); EOSINOPHILS % (AUTO) 1.2 % (0-6); LYMPHOCYTES % (AUTO) 34.1 % (13-45); MEAN CORPUSCULAR HEMOGLOBIN 31.4 pg (27.0-33.4); MEAN CORPUSCULAR HGB CONC 34.8 g/dL (32.0-36.0); MEAN CORPUSCULAR VOLUME 90 fl (80-97); MONOCYTES % (AUTO) 19.3 % (3-13); PLATELET COUNT 229 10^3/uL (150-450); RED BLOOD COUNT 2.66 10^6/uL (3.72-5.28); SEGMENTED NEUTROPHILS % (AUTO) 45.1 % (42-78); WHITE BLOOD COUNT 5.6 10^3/uL (4.0-10.5)
[2018-06-01 06:06] LABS: ALANINE AMINOTRANSFERASE 27 U/L (9-52); ALBUMIN 3.4 g/dL (3.5-5.0); ALKALINE PHOSPHATASE 58 U/L (38-126); ANION GAP 9 (5-19); ASPARTATE AMINO TRANSFERASE 33 U/L (14-36); BILIRUBIN,DIRECT 0.2 mg/dL (0.0-0.4); BILIRUBIN,TOTAL 1.2 mg/dL (0.2-1.3); BLOOD UREA NITROGEN 2 mg/dL (7-20); CALCIUM 8.8 mg/dL (8.4-10.2); CARBON DIOXIDE 24 mmol/L (22-30); CHLORIDE 108 mmol/L (98-107); GLUCOSE 90 mg/dL (75-110); POTASSIUM 3.8 mmol/L (3.6-5.0); SODIUM 141.4 mmol/L (137-145)
[2018-06-01 07:04] LABS: ANISOCYTOSIS 3+; HYPOCHROMASIA 2+; SICKLE RED CELLS 3+
[2018-06-01 07:05] LABS: PLATELET COMMENT ADEQUATE; TARGET CELLS 3+
[2018-06-01] MEDS: AMITRIPTYLINE HCL 25 MG TABLET PO SCH (08:13)
[2018-06-01] MEDS: NORMAL SALINE 10 ML SDV (SCHEDULED) IV SCH ×4 (09:05→21:34)
[2018-06-01] MEDS: FOLIC ACID 1 MG TABLET PO SCH (09:07)
[2018-06-01] MEDS: HYDROXYUREA 500 MG CAPSULE PO SCH (09:07)
[2018-06-01] MEDS: CYCLOBENZAPRINE HCL 10 MG TABLET PO SCH ×2 (09:07→21:33)
[2018-06-01] MEDS: AMLODIPINE BESYLATE 5 MG TABLET PO SCH (09:08)
[2018-06-01] MEDS: ENOXAPARIN SODIUM INJ 40 MG/0.4 ML DISP.SYRIN SUBCUT SCH (09:08)
[2018-06-01] MEDS: LOPERAMIDE HCL 2 MG CAPSULE PO PRN (10:34)
--- NOTE | 2018-06-01 15:03 | PDOC PROGRESS REPORT ---
Subjective Progress Note for:: 06/01/18 Subjective:: PRANAV JOINER is a 27 year old female with history of sickle cell, presented to ED complaining of sickle cell crisis. He stated that her symptoms started last Saturday and believes believes it could have been triggered due to the recent cold weather. She was complaining of generalized pain in her thorax, upper extremities, abdomen and lower extremities, she feels like her pain is coming from her upper back to her chest, symptoms are associated with nausea and episode of nonbloody vomiting, she has several days of nonbloody diarrhea, denies dysuria, hematuria or frequency, also denies fever or chills. At home she takes oxycodone 15 mg every 4-6 hours as needed and has not improved her pain. Last crisis was about 2 weeks months ago and patient states that usually Dilaudid helps her with her pain. Patient follows with 05/26/2018. No acute events overnight. Patient is talking with her mother over the phone however she appears uncomfortable and seems to be in a lot of pain. Stating that her pain has not been controlled sufficiently and she is having generalized crampy pain. Patient denies any fever, nausea, vomiting, chills,, constipation or any urinary symptoms. 05/27/2018. No acute events overnight. Still complaining of persistent generalized pain. Denies any fever, chills, nausea, vomiting, diarrhea. Constipated 05/28/2018. Feeling better compared to yesterday. Still having generalized pain. Constipated and cannot ambulate sufficiently due to pain. Denies any fever chills nausea vomiting diarrhea or any urinary symptoms.1 05/29/2018. No acute events overnight. Patient is feeling better than yesterday. Denies any fever, chills, nausea, vomiting, diarrhea. Still complaining of constipation. 05/30/2018. No acute events overnight. Patient is said that she is still feeling a lot of pain and could not get any good night sleep. Patient has resolved. Denies any fever, chills, nausea, vomiting, diarrhea or any constipation. Patient is able to ambulate better that since admission. She is p.o. tolerant 05/31/2018. No acute events overnight. Patient still feeling persistent generalized pain and has not been able to sleep with residual. Patient is also complaining of nonbloody diarrhea for the last 2 days however denying any abdominal pain nausea vomiting diarrhea fever chills shortness of breath or any chest pain. 11/2017. No acute events overnight. Patient had a better night and her pain has been getting better compared to yesterday. She is ambulatory and p.o. tolerant. Her pleuritic chest pain has also improved a little bit. She still has diarrhea but denies any fever, chills, nausea, vomiting, urinary symptoms. Reason For Visit: SICKLE CELL CRISIS Physical Exam Vital Signs: Temp Pulse Resp BP Pulse Ox 98.1 F 95 16 122/68 97 06/01/18 12:31 06/01/18 12:31 06/01/18 12:31 06/01/18 12:31 06/01/18 12:31 Intake & Output 05/31/18 06/01/18 06/02/18 06:59 06:59 06:59 Intake Total 5561 5314 1118 Output Total 3200 2330 500 Balance 2361 2984 618 Weight 68.2 kg 67.9 kg General appearance: PRESENT: no acute distress, well-developed, well-nourished Respiratory exam: PRESENT: clear to auscultation william. ABSENT: rales, rhonchi, wheezes Cardiovascular exam: PRESENT: RRR. ABSENT: diastolic murmur, rubs, systolic murmur GI/Abdominal exam: PRESENT: normal bowel sounds, soft. ABSENT: distended, guarding, mass, organolmegaly, rebound, tenderness Results Laboratory Results: 06/01/18 05:35 06/01/18 05:35 06/01/18 06/01/18 05:35 05:35 WBC 5.6 RBC 2.66 L Hgb 8.4 L Hct 24.0 L MCV 90 MCH 31.4 MCHC 34.8 RDW 22.1 H Plt Count 229 Seg Neutrophils % 45.1 Lymphocytes % 34.1 Monocytes % 19.3 H Eosinophils % 1.2 Basophils % 0.3 Absolute Neutrophils 2.5 Absolute Lymphocytes 1.9 Absolute Monocytes 1.1 Absolute Eosinophils 0.1 Absolute Basophils 0.0 Sodium 141.4 Potassium 3.8 Chloride 108 H Carbon Dioxide 24 Anion Gap 9 BUN 2 L Creatinine 0.43 L Est GFR ( Amer) > 60 Est GFR (Non-Af Amer) > 60 Glucose 90 Calcium 8.8 Total Bilirubin 1.2 AST 33 ALT 27 Alkaline Phosphatase 58 Total Protein 6.0 L Albumin 3.4 L 05/26/18 17:50 Blood Blood Culture - Final NO GROWTH IN 5 DAYS 05/26/18 16:00 Blood Blood Culture - Final NO GROWTH IN 5 DAYS Impressions: Chest/Abdomen CTA 05/23/18 19:44 IMPRESSION: 1. Negative for pulmonary arterial embolus. 2. Nonspecific patchy opacities in the right lung, new when compared to previous CT chest back in 2016. These may represent areas of scarring however, underlying infectious process is not excluded. TECHNICAL DOCUMENTATION: Quality ID # 436: Final reports with documentation of one or more dose reduction techniques (e.g., Automated exposure control, adjustment of the mA and/or kV according to patient size, use of iterative reconstruction technique) 2010 [employer]- All Rights Reserved Guidance Fluoroscopy 05/26/18 00:00 IMPRESSION: SUCCESSFUL PLACEMENT OF A 5 FR DUAL LUMEN 43 CM PICC IN THE LEFT BASILIC VEIN. Interventional Vascular Procedure 05/26/18 00:00 IMPRESSION: SUCCESSFUL PLACEMENT OF A 5 FR DUAL LUMEN 43 CM PICC IN THE LEFT BASILIC VEIN. PICC Line Insertion 05/26/18 00:00 IMPRESSION: SUCCESSFUL PLACEMENT OF A 5 FR DUAL LUMEN 43 CM PICC IN THE LEFT BASILIC VEIN. Chest X-Ray 05/28/18 00:00 IMPRESSION: Interval resolution of the previously described retrocardiac infiltrate on the left. Minimal linear densities in the right lung base most consistent with subsegmental atelectasis. PICC line with its tip the level of the right atrium. Other findings as noted above Assessment & Plan - Diagnosis (1) Diarrhea Is this a current diagnosis for this admission?: Yes Plan: Not improving. Not received any antibiotics on this admission. Unlikely infectious. C. difficile and stool leukocyte negative. Pending stool ova, parasite, Gram stain and culture. CBC within normal limits patient is afebrile. Start on antidiarrheal medications. Encouraged p.o. fluid intake. Monitor volume status and electrolytes. BMP tomorrow. (2) Sickle cell pain crisis Is this a current diagnosis for this admission?: Yes Plan: Improving De-escalate IV narcotics to p.o. narcotics tolerated. Leukocytosis resolved. Hemoglobin 8.7 from 8.3. Patient remains afebrile. Blood culture negative. Daily CBC. Monitor vitals. Taper IV narcotics switched to p.o. as possible. 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 Stable. Status post 2 unit transfusion on . Hemoglobin 8.7 from 8.3 today. CBC tomorrow (4) Constipation Qualifiers: Constipation type: drug induced constipation Qualified Code(s): K59.03 - Drug induced constipation Is this a current diagnosis for this admission?: Yes Plan: Opioid induced. Resolved. Patient having diarrhea. Hold bowel regimen. (5) Homozygous sickle cell (SS) disease Is this a current diagnosis for this admission?: Yes Plan: Problem #1. Hematology/oncology on board. Recommendations.
--- NOTE | 2018-06-01 15:09 | PDOC PROGRESS REPORT ---
Subjective Progress Note for:: 06/01/18 Subjective:: patient states pain is a bit better today, but diarrhea continues. Some fecal incontinence as well with green stool. She was able to walk in [place] yesterday, but not yet today. Is able to drink, but not eat much. Reason For Visit: SICKLE CELL CRISIS Physical Exam Vital Signs: Temp Pulse Resp BP Pulse Ox 98.1 F 95 16 122/68 97 06/01/18 12:31 06/01/18 12:31 06/01/18 12:31 06/01/18 12:31 06/01/18 12:31 Intake & Output 05/31/18 06/01/18 06/02/18 06:59 06:59 06:59 Intake Total 5561 5314 1118 Output Total 3200 2330 500 Balance 2361 2984 618 Weight 68.2 kg 67.9 kg General appearance: PRESENT: well-developed, well-nourished Head exam: PRESENT: normocephalic Respiratory exam: PRESENT: clear to auscultation william, unlabored Cardiovascular exam: PRESENT: RRR GI/Abdominal exam: PRESENT: soft. ABSENT: tenderness Extremities exam: ABSENT: pedal edema Skin exam: PRESENT: normal color Results Laboratory Results: 06/01/18 05:35 06/01/18 05:35 06/01/18 06/01/18 05:35 05:35 WBC 5.6 RBC 2.66 L Hgb 8.4 L Hct 24.0 L MCV 90 MCH 31.4 MCHC 34.8 RDW 22.1 H Plt Count 229 Seg Neutrophils % 45.1 Lymphocytes % 34.1 Monocytes % 19.3 H Eosinophils % 1.2 Basophils % 0.3 Absolute Neutrophils 2.5 Absolute Lymphocytes 1.9 Absolute Monocytes 1.1 Absolute Eosinophils 0.1 Absolute Basophils 0.0 Sodium 141.4 Potassium 3.8 Chloride 108 H Carbon Dioxide 24 Anion Gap 9 BUN 2 L Creatinine 0.43 L Est GFR ( Amer) > 60 Est GFR (Non-Af Amer) > 60 Glucose 90 Calcium 8.8 Total Bilirubin 1.2 AST 33 ALT 27 Alkaline Phosphatase 58 Total Protein 6.0 L Albumin 3.4 L 05/26/18 17:50 Blood Blood Culture - Final NO GROWTH IN 5 DAYS 05/26/18 16:00 Blood Blood Culture - Final NO GROWTH IN 5 DAYS Impressions: Chest/Abdomen CTA 05/23/18 19:44 IMPRESSION: 1. Negative for pulmonary arterial embolus. 2. Nonspecific patchy opacities in the right lung, new when compared to previous CT chest back in 2016. These may represent areas of scarring however, underlying infectious process is not excluded. TECHNICAL DOCUMENTATION: Quality ID # 436: Final reports with documentation of one or more dose reduction techniques (e.g., Automated exposure control, adjustment of the mA and/or kV according to patient size, use of iterative reconstruction technique) 2010 [employer]- All Rights Reserved Guidance Fluoroscopy 05/26/18 00:00 IMPRESSION: SUCCESSFUL PLACEMENT OF A 5 FR DUAL LUMEN 43 CM PICC IN THE LEFT BASILIC VEIN. Interventional Vascular Procedure 05/26/18 00:00 IMPRESSION: SUCCESSFUL PLACEMENT OF A 5 FR DUAL LUMEN 43 CM PICC IN THE LEFT BASILIC VEIN. PICC Line Insertion 05/26/18 00:00 IMPRESSION: SUCCESSFUL PLACEMENT OF A 5 FR DUAL LUMEN 43 CM PICC IN THE LEFT BASILIC VEIN. Chest X-Ray 05/28/18 00:00 IMPRESSION: Interval resolution of the previously described retrocardiac infiltrate on the left. Minimal linear densities in the right lung base most consistent with subsegmental atelectasis. PICC line with its tip the level of the right atrium. Other findings as noted above Assessment & Plan - Diagnosis (1) Sickle cell pain crisis Is this a current diagnosis for this admission?: Yes Plan: Doing a bit better. Continue current pain regimen. (2) Nausea & vomiting Qualifiers: Vomiting type: unspecified Vomiting Intractability: non-intractable Qualified Code(s): R11.2 - Nausea with vomiting, unspecified Is this a current diagnosis for this admission?: Yes Plan: Continue current meds. (3) DVT prophylaxis Is this a current diagnosis for this admission?: Yes (4) Diarrhea Is this a current diagnosis for this admission?: Yes Plan: I will add lomotil to imodium. Will continue to monitor. Work-up for infectious etiology has been negative. Await O&P.
[2018-06-01] MEDS: ONDANSETRON HCL INJ/PF 4 MG/2 ML SDV IV PRN (19:43)
[2018-06-01] MEDS: AMITRIPTYLINE HCL 50 MG TABLET PO SCH (21:33)
[2018-06-02] MEDS: HYDROMORPHONE HCL INJ/PF 2 MG/ML AMPULE IV PRN ×9 (02:25→22:23)
[2018-06-02] MEDS: POTASSI CL 20 MEQ/NS 1L 1000 ML IV PRN ×3 (02:25→17:41)
[2018-06-02] MEDS: OXYCODONE HCL IR 5 MG TABLET PO PRN ×2 (04:00→20:50)
[2018-06-02 04:58] LABS: ABSOLUTE EOSINOPHILS # (AUTO) 0.2 10^3/uL (0.0-0.6); ABSOLUTE LYMPHOCYTES (AUTO) 2.2 10^3/uL (0.5-4.7); ABSOLUTE MONOCYTES (AUTO) 1.3 10^3/uL (0.1-1.4); ABSOLUTE NEUT (AUTO) 4.1 10^3/uL (1.7-8.2); BASOPHILS % (AUTO) 0.6 % (0-2); EOSINOPHILS % (AUTO) 2.3 % (0-6); HEMOGLOBIN 9.1 g/dL (12.0-15.5); LYMPHOCYTES % (AUTO) 27.7 % (13-45); MEAN CORPUSCULAR HEMOGLOBIN 31.4 pg (27.0-33.4); MEAN CORPUSCULAR VOLUME 90 fl (80-97); MONOCYTES % (AUTO) 16.9 % (3-13); PLATELET COUNT 281 10^3/uL (150-450); RED BLOOD COUNT 2.89 10^6/uL (3.72-5.28); RED CELL DISTRIBUTION WIDTH 22.1 % (11.5-14.0); SEGMENTED NEUTROPHILS % (AUTO) 52.5 % (42-78); TOTAL CELLS COUNTED % (AUTO) 100 %; WHITE BLOOD COUNT 7.8 10^3/uL (4.0-10.5)
[2018-06-02 05:00] LABS: ALANINE AMINOTRANSFERASE 26 U/L (9-52); ALBUMIN 3.2 g/dL (3.5-5.0); ALKALINE PHOSPHATASE 58 U/L (38-126); ANION GAP 8 (5-19); ASPARTATE AMINO TRANSFERASE 33 U/L (14-36); BILIRUBIN,DIRECT 0.3 mg/dL (0.0-0.4); BILIRUBIN,TOTAL 1.3 mg/dL (0.2-1.3); BLOOD UREA NITROGEN 3 mg/dL (7-20); CALCIUM 8.3 mg/dL (8.4-10.2); CARBON DIOXIDE 25 mmol/L (22-30); CHLORIDE 109 mmol/L (98-107); GLUCOSE 85 mg/dL (75-110); POTASSIUM 4.2 mmol/L (3.6-5.0); SODIUM 141.5 mmol/L (137-145); TOTAL PROTEIN 5.8 g/dL (6.3-8.2)
[2018-06-02] MEDS: PROMETHAZINE HCL INJ 25 MG/1 ML VIAL IV PRN ×3 (05:12→19:38)
[2018-06-02 05:17] LABS: ANISOCYTOSIS 3+; POLYCHROMASIA SLIGHT; TOXIC GRANULATION 1+; TOXIC VACUOLATION PRESENT
[2018-06-02 05:18] LABS: HOWELL-JOLLY BODIES PRESENT; PLATELET COMMENT ADEQUATE; POIKILOCYTOSIS 1+; SCHISTOCYTES SLIGHT; SICKLE RED CELLS 1+; TARGET CELLS 1+
[2018-06-02 05:19] LABS: PLATELET LARGE PRESENT
[2018-06-02] MEDS: AMITRIPTYLINE HCL 25 MG TABLET PO SCH (07:53)
--- NOTE | 2018-06-02 08:17 | PDOC PROGRESS REPORT ---
Subjective Progress Note for:: 06/02/18 Subjective:: Still w/ significant diarrhea but was not offered any Lomotil, spoke w/ nursing to give this along w/ immodium, infectious w/u of stool thus far neg. Reason For Visit: SICKLE CELL CRISIS Physical Exam Vital Signs: Temp Pulse Resp BP Pulse Ox 98.1 F 91 15 118/66 100 06/01/18 23:28 06/01/18 23:28 06/01/18 23:28 06/01/18 23:28 06/01/18 23:28 Intake & Output 06/01/18 06/02/18 06/03/18 06:59 06:59 06:59 Intake Total 5314 4506 Output Total 2330 2650 Balance 2984 1856 Weight 67.9 kg 67.2 kg General appearance: PRESENT: no acute distress, well-developed, well-nourished Head exam: PRESENT: atraumatic, normocephalic Eye exam: PRESENT: conjunctiva pink, EOMI, PERRLA. ABSENT: scleral icterus Ear exam: PRESENT: normal external ear exam Mouth exam: PRESENT: moist, tongue midline Neck exam: ABSENT: carotid bruit, JVD, lymphadenopathy, thyromegaly Respiratory exam: PRESENT: clear to auscultation william. ABSENT: rales, rhonchi, wheezes Cardiovascular exam: PRESENT: RRR. ABSENT: diastolic murmur, rubs, systolic murmur Pulses: PRESENT: normal dorsalis pedis pul Vascular exam: PRESENT: normal capillary refill GI/Abdominal exam: PRESENT: normal bowel sounds, soft. ABSENT: distended, guarding, mass, organolmegaly, rebound, tenderness Rectal exam: PRESENT: deferred Extremities exam: PRESENT: full ROM. ABSENT: calf tenderness, clubbing, pedal edema Neurological exam: PRESENT: alert, awake, oriented to person, oriented to place , oriented to time, oriented to situation, CN II-XII grossly intact. ABSENT: motor sensory deficit Psychiatric exam: PRESENT: appropriate affect, normal mood. ABSENT: homicidal ideation, suicidal ideation Skin exam: PRESENT: dry, intact, warm. ABSENT: cyanosis, rash Results Laboratory Results: 06/02/18 04:00 06/02/18 04:00 06/02/18 06/02/18 04:00 04:00 WBC 7.8 RBC 2.89 L Hgb 9.1 L Hct 26.0 L MCV 90 MCH 31.4 MCHC 35.0 RDW 22.1 H Plt Count 281 Seg Neutrophils % 52.5 Lymphocytes % 27.7 Monocytes % 16.9 H Eosinophils % 2.3 Basophils % 0.6 Absolute Neutrophils 4.1 Absolute Lymphocytes 2.2 Absolute Monocytes 1.3 Absolute Eosinophils 0.2 Absolute Basophils 0.0 Sodium 141.5 Potassium 4.2 Chloride 109 H Carbon Dioxide 25 Anion Gap 8 BUN 3 L Creatinine 0.51 L Est GFR ( Amer) > 60 Est GFR (Non-Af Amer) > 60 Glucose 85 Calcium 8.3 L Total Bilirubin 1.3 AST 33 ALT 26 Alkaline Phosphatase 58 Total Protein 5.8 L Albumin 3.2 L Impressions: Chest/Abdomen CTA 05/23/18 19:44 IMPRESSION: 1. Negative for pulmonary arterial embolus. 2. Nonspecific patchy opacities in the right lung, new when compared to previous CT chest back in 2016. These may represent areas of scarring however, underlying infectious process is not excluded. TECHNICAL DOCUMENTATION: Quality ID # 436: Final reports with documentation of one or more dose reduction techniques (e.g., Automated exposure control, adjustment of the mA and/or kV according to patient size, use of iterative reconstruction technique) 2010 [employer]- All Rights Reserved Guidance Fluoroscopy 05/26/18 00:00 IMPRESSION: SUCCESSFUL PLACEMENT OF A 5 FR DUAL LUMEN 43 CM PICC IN THE LEFT BASILIC VEIN. Interventional Vascular Procedure 05/26/18 00:00 IMPRESSION: SUCCESSFUL PLACEMENT OF A 5 FR DUAL LUMEN 43 CM PICC IN THE LEFT BASILIC VEIN. PICC Line Insertion 05/26/18 00:00 IMPRESSION: SUCCESSFUL PLACEMENT OF A 5 FR DUAL LUMEN 43 CM PICC IN THE LEFT BASILIC VEIN. Chest X-Ray 05/28/18 00:00 IMPRESSION: Interval resolution of the previously described retrocardiac infiltrate on the left. Minimal linear densities in the right lung base most consistent with subsegmental atelectasis. PICC line with its tip the level of the right atrium. 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
[2018-06-02] MEDS: ONDANSETRON HCL INJ/PF 4 MG/2 ML SDV IV PRN (10:16)
[2018-06-02] MEDS: LOPERAMIDE HCL 2 MG CAPSULE PO PRN ×3 (10:17→22:24)
[2018-06-02] MEDS: AMLODIPINE BESYLATE 5 MG TABLET PO SCH (10:18)
[2018-06-02] MEDS: FOLIC ACID 1 MG TABLET PO SCH (10:18)
[2018-06-02] MEDS: ENOXAPARIN SODIUM INJ 40 MG/0.4 ML DISP.SYRIN SUBCUT SCH (10:20)
[2018-06-02] MEDS: CYCLOBENZAPRINE HCL 10 MG TABLET PO SCH ×2 (10:22→22:24)
[2018-06-02] MEDS: NORMAL SALINE 10 ML SDV (SCHEDULED) IV SCH ×4 (10:23→22:46)
--- NOTE | 2018-06-02 10:52 | PDOC PROGRESS REPORT ---
Subjective Progress Note for:: 06/02/18 Subjective:: PRANAV JOINER is a 27 year old female with history of sickle cell, presented to ED complaining of sickle cell crisis. He stated that her symptoms started last Saturday and believes believes it could have been triggered due to the recent cold weather. She was complaining of generalized pain in her thorax, upper extremities, abdomen and lower extremities, she feels like her pain is coming from her upper back to her chest, symptoms are associated with nausea and episode of nonbloody vomiting, she has several days of nonbloody diarrhea, denies dysuria, hematuria or frequency, also denies fever or chills. At home she takes oxycodone 15 mg every 4-6 hours as needed and has not improved her pain. Last crisis was about 2 weeks months ago and patient states that usually Dilaudid helps her with her pain. Patient follows with 05/26/2018. No acute events overnight. Patient is talking with her mother over the phone however she appears uncomfortable and seems to be in a lot of pain. Stating that her pain has not been controlled sufficiently and she is having generalized crampy pain. Patient denies any fever, nausea, vomiting, chills,, constipation or any urinary symptoms. 05/27/2018. No acute events overnight. Still complaining of persistent generalized pain. Denies any fever, chills, nausea, vomiting, diarrhea. Constipated 05/28/2018. Feeling better compared to yesterday. Still having generalized pain. Constipated and cannot ambulate sufficiently due to pain. Denies any fever chills nausea vomiting diarrhea or any urinary symptoms.1 05/29/2018. No acute events overnight. Patient is feeling better than yesterday. Denies any fever, chills, nausea, vomiting, diarrhea. Still complaining of constipation. 05/30/2018. No acute events overnight. Patient is said that she is still feeling a lot of pain and could not get any good night sleep. Patient has resolved. Denies any fever, chills, nausea, vomiting, diarrhea or any constipation. Patient is able to ambulate better that since admission. She is p.o. tolerant 05/31/2018. No acute events overnight. Patient still feeling persistent generalized pain and has not been able to sleep with residual. Patient is also complaining of nonbloody diarrhea for the last 2 days however denying any abdominal pain nausea vomiting diarrhea fever chills shortness of breath or any chest pain. 06/01/2018. No acute events overnight. Patient had a better night and her pain has been getting better compared to yesterday. She is ambulatory and p.o. tolerant. Her pleuritic chest pain has also improved a little bit. She still has diarrhea but denies any fever, chills, nausea, vomiting, urinary symptoms. 06/02/2018. No acute events over night. Patient still having persistent nonbloody diarrhea. Still complaining of back pain however chest pain and other generalized pain has improved. Denies any fever, chills, nausea, vomiting , chest pain or shortness of breath. Reason For Visit: SICKLE CELL CRISIS Physical Exam Vital Signs: Temp Pulse Resp BP Pulse Ox 98.8 F 93 16 99/70 L 99 06/02/18 08:55 06/02/18 08:55 06/02/18 08:55 06/02/18 08:55 06/02/18 08:55 Intake & Output 06/01/18 06/02/18 06/03/18 06:59 06:59 06:59 Intake Total 5314 4506 1000 Output Total 2330 2650 Balance 2984 1856 1000 Weight 67.9 kg 67.2 kg General appearance: PRESENT: no acute distress, well-developed, well-nourished Respiratory exam: PRESENT: clear to auscultation william. ABSENT: rales, rhonchi, wheezes Cardiovascular exam: PRESENT: RRR. ABSENT: diastolic murmur, rubs, systolic murmur Musculoskeletal exam: PRESENT: tenderness - Tenderness over bilateral paraspinal muscles in the back. Results Laboratory Results: 06/02/18 04:00 06/02/18 04:00 06/02/18 06/02/18 04:00 04:00 WBC 7.8 RBC 2.89 L Hgb 9.1 L Hct 26.0 L MCV 90 MCH 31.4 MCHC 35.0 RDW 22.1 H Plt Count 281 Seg Neutrophils % 52.5 Lymphocytes % 27.7 Monocytes % 16.9 H Eosinophils % 2.3 Basophils % 0.6 Absolute Neutrophils 4.1 Absolute Lymphocytes 2.2 Absolute Monocytes 1.3 Absolute Eosinophils 0.2 Absolute Basophils 0.0 Sodium 141.5 Potassium 4.2 Chloride 109 H Carbon Dioxide 25 Anion Gap 8 BUN 3 L Creatinine 0.51 L Est GFR ( Amer) > 60 Est GFR (Non-Af Amer) > 60 Glucose 85 Calcium 8.3 L Total Bilirubin 1.3 AST 33 ALT 26 Alkaline Phosphatase 58 Total Protein 5.8 L Albumin 3.2 L Impressions: Chest/Abdomen CTA 05/23/18 19:44 IMPRESSION: 1. Negative for pulmonary arterial embolus. 2. Nonspecific patchy opacities in the right lung, new when compared to previous CT chest back in 2016. These may represent areas of scarring however, underlying infectious process is not excluded. TECHNICAL DOCUMENTATION: Quality ID # 436: Final reports with documentation of one or more dose reduction techniques (e.g., Automated exposure control, adjustment of the mA and/or kV according to patient size, use of iterative reconstruction technique) 2010 [employer]- All Rights Reserved Guidance Fluoroscopy 05/26/18 00:00 IMPRESSION: SUCCESSFUL PLACEMENT OF A 5 FR DUAL LUMEN 43 CM PICC IN THE LEFT BASILIC VEIN. Interventional Vascular Procedure 05/26/18 00:00 IMPRESSION: SUCCESSFUL PLACEMENT OF A 5 FR DUAL LUMEN 43 CM PICC IN THE LEFT BASILIC VEIN. PICC Line Insertion 05/26/18 00:00 IMPRESSION: SUCCESSFUL PLACEMENT OF A 5 FR DUAL LUMEN 43 CM PICC IN THE LEFT BASILIC VEIN. Chest X-Ray 05/28/18 00:00 IMPRESSION: Interval resolution of the previously described retrocardiac infiltrate on the left. Minimal linear densities in the right lung base most consistent with subsegmental atelectasis. PICC line with its tip the level of the right atrium. Other findings as noted above Assessment & Plan - Diagnosis (1) Diarrhea Qualifiers: Diarrhea type: unspecified type Qualified Code(s): R19.7 - Diarrhea, unspecified Is this a current diagnosis for this admission?: Yes Plan: Not improving. Not received any antibiotics on this admission. Unlikely infectious. C. difficile and stool leukocyte negative. Pending stool ova, parasite, Gram stain and culture. CBC within normal limits patient is afebrile. Start on antidiarrheal medications. Encouraged p.o. fluid intake. Monitor volume status and electrolytes. BMP tomorrow. (2) Sickle cell pain crisis Is this a current diagnosis for this admission?: Yes Plan: Improving De-escalate IV narcotics to p.o. narcotics tolerated. Leukocytosis resolved. Hemoglobin stable and increasing. Patient remains afebrile. Blood culture negative. Daily CBC. Monitor vitals. Taper IV narcotics switched to p.o. as possible. 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 Stable. Status post 2 unit transfusion on . Stable and increasing. CBC tomorrow. (4) Homozygous sickle cell (SS) disease Is this a current diagnosis for this admission?: Yes Plan: As per problem #1. Hematology/oncology on board. Recommendations.
[2018-06-02] MEDS: DIPHENOXYLATE HCL/ATROP SULF 2.5-0.025 MG TABLET PO PRN (17:05)
[2018-06-02] MEDS: ONDANSETRON 4 MG TAB.RAPDIS PO PRN (20:51)
[2018-06-02] MEDS: AMITRIPTYLINE HCL 50 MG TABLET PO SCH (22:24)
[2018-06-03] MEDS: DIPHENOXYLATE HCL/ATROP SULF 2.5-0.025 MG TABLET PO PRN ×3 (00:10→18:31)
[2018-06-03] MEDS: HYDROMORPHONE HCL INJ/PF 2 MG/ML AMPULE IV PRN ×9 (00:15→22:53)
[2018-06-03] MEDS: PROMETHAZINE HCL INJ 25 MG/1 ML VIAL IV PRN ×4 (03:36→22:53)
[2018-06-03] MEDS: POTASSI CL 20 MEQ/NS 1L 1000 ML IV PRN ×3 (04:06→18:32)
[2018-06-03] MEDS: LOPERAMIDE HCL 2 MG CAPSULE PO PRN ×2 (07:35→18:32)
[2018-06-03] MEDS: AMITRIPTYLINE HCL 25 MG TABLET PO SCH (07:36)
--- NOTE | 2018-06-03 08:05 | PDOC PROGRESS REPORT ---
Subjective Progress Note for:: 06/03/18 Subjective:: Pt still w/ diarrhea x 5 yesterday although better, was 10+ day before, taking now both immodium and lomotil Reason For Visit: SICKLE CELL CRISIS Physical Exam Vital Signs: Temp Pulse Resp BP Pulse Ox 98.9 F 89 16 121/74 99 06/02/18 23:30 06/02/18 23:30 06/02/18 23:30 06/02/18 23:30 06/02/18 23:30 Intake & Output 06/02/18 06/03/18 06/04/18 06:59 06:59 06:59 Intake Total 4506 4208 Output Total 2650 2500 Balance 1856 1708 Weight 67.2 kg 68.4 kg General appearance: PRESENT: no acute distress, well-developed, well-nourished Head exam: PRESENT: atraumatic, normocephalic Eye exam: PRESENT: conjunctiva pink, EOMI, PERRLA. ABSENT: scleral icterus Ear exam: PRESENT: normal external ear exam Mouth exam: PRESENT: moist, tongue midline Neck exam: ABSENT: carotid bruit, JVD, lymphadenopathy, thyromegaly Respiratory exam: PRESENT: clear to auscultation william. ABSENT: rales, rhonchi, wheezes Cardiovascular exam: PRESENT: RRR. ABSENT: diastolic murmur, rubs, systolic murmur Pulses: PRESENT: normal dorsalis pedis pul Vascular exam: PRESENT: normal capillary refill GI/Abdominal exam: PRESENT: normal bowel sounds, soft. ABSENT: distended, guarding, mass, organolmegaly, rebound, tenderness Rectal exam: PRESENT: deferred Extremities exam: PRESENT: full ROM. ABSENT: calf tenderness, clubbing, pedal edema Neurological exam: PRESENT: alert, awake, oriented to person, oriented to place , oriented to time, oriented to situation, CN II-XII grossly intact. ABSENT: motor sensory deficit Psychiatric exam: PRESENT: appropriate affect, normal mood. ABSENT: homicidal ideation, suicidal ideation Skin exam: PRESENT: dry, intact, warm. ABSENT: cyanosis, rash Results Laboratory Results: 06/02/18 04:00 06/02/18 04:00 Impressions: Chest/Abdomen CTA 05/23/18 19:44 IMPRESSION: 1. Negative for pulmonary arterial embolus. 2. Nonspecific patchy opacities in the right lung, new when compared to previous CT chest back in 2016. These may represent areas of scarring however, underlying infectious process is not excluded. TECHNICAL DOCUMENTATION: Quality ID # 436: Final reports with documentation of one or more dose reduction techniques (e.g., Automated exposure control, adjustment of the mA and/or kV according to patient size, use of iterative reconstruction technique) 2010 [employer]- All Rights Reserved Guidance Fluoroscopy 05/26/18 00:00 IMPRESSION: SUCCESSFUL PLACEMENT OF A 5 FR DUAL LUMEN 43 CM PICC IN THE LEFT BASILIC VEIN. Interventional Vascular Procedure 05/26/18 00:00 IMPRESSION: SUCCESSFUL PLACEMENT OF A 5 FR DUAL LUMEN 43 CM PICC IN THE LEFT BASILIC VEIN. PICC Line Insertion 05/26/18 00:00 IMPRESSION: SUCCESSFUL PLACEMENT OF A 5 FR DUAL LUMEN 43 CM PICC IN THE LEFT BASILIC VEIN. Chest X-Ray 05/28/18 00:00 IMPRESSION: Interval resolution of the previously described retrocardiac infiltrate on the left. Minimal linear densities in the right lung base most consistent with subsegmental atelectasis. PICC line with its tip the level of the right atrium. 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 Con't both immodium and lomotil x 24 more hours and hopefully will resolve by tomorrow
[2018-06-03] MEDS: HYDROXYUREA 500 MG CAPSULE PO SCH (09:56)
[2018-06-03] MEDS: FOLIC ACID 1 MG TABLET PO SCH (09:56)
[2018-06-03] MEDS: AMLODIPINE BESYLATE 5 MG TABLET PO SCH (09:56)
[2018-06-03] MEDS: NORMAL SALINE 10 ML SDV (SCHEDULED) IV SCH ×4 (09:56→22:55)
[2018-06-03] MEDS: CYCLOBENZAPRINE HCL 10 MG TABLET PO SCH ×2 (09:56→22:54)
[2018-06-03] MEDS ORDERED: HYDROMORPHONE HCL INJ/PF 2 MG/ML AMPULE IV PRN (10:15)
[2018-06-03] MEDS: ENOXAPARIN SODIUM INJ 40 MG/0.4 ML DISP.SYRIN SUBCUT SCH (11:18)
[2018-06-03] MEDS: ONDANSETRON HCL INJ/PF 4 MG/2 ML SDV IV PRN (12:49)
[2018-06-03 15:49] LABS: ABSOLUTE EOSINOPHILS # (AUTO) 0.3 10^3/uL (0.0-0.6); ABSOLUTE LYMPHOCYTES (AUTO) 3.2 10^3/uL (0.5-4.7); ABSOLUTE MONOCYTES (AUTO) 1.4 10^3/uL (0.1-1.4); ABSOLUTE NEUT (AUTO) 2.5 10^3/uL (1.7-8.2); BASOPHILS % (AUTO) 0.4 % (0-2); EOSINOPHILS % (AUTO) 3.6 % (0-6); HEMATOCRIT 25.3 % (36.0-47.0); HEMOGLOBIN 8.8 g/dL (12.0-15.5); LYMPHOCYTES % (AUTO) 43.4 % (13-45); MEAN CORPUSCULAR HEMOGLOBIN 31.5 pg (27.0-33.4); MEAN CORPUSCULAR VOLUME 90 fl (80-97); PLATELET COUNT 266 10^3/uL (150-450); SEGMENTED NEUTROPHILS % (AUTO) 33.6 % (42-78); TOTAL CELLS COUNTED % (AUTO) 100 %; WHITE BLOOD COUNT 7.3 10^3/uL (4.0-10.5)
--- NOTE | 2018-06-03 18:46 | PDOC PROGRESS REPORT ---
Subjective Progress Note for:: 06/03/18 Subjective:: 06/03/2018 27-year-old female with sick history of sickle cell anemia admitted for sickle cell crisis oncology is following the patient and he is managing the pain patient denies any complaints she is comfortably in the bed she said her diarrhea is improving she has only 3 episodes of loose stools today. Reason For Visit: SICKLE CELL CRISIS Physical Exam Vital Signs: Temp Pulse Resp BP Pulse Ox 98.4 F 79 22 H 118/53 L 100 06/03/18 12:00 06/03/18 12:00 06/03/18 12:00 06/03/18 12:00 06/03/18 12:00 Intake & Output 06/02/18 06/03/18 06/04/18 06:59 06:59 06:59 Intake Total 4506 4208 2400 Output Total 2650 2500 500 Balance 1856 1708 1900 Weight 67.2 kg 68.4 kg General appearance: PRESENT: no acute distress Head exam: PRESENT: atraumatic Eye exam: PRESENT: PERRLA Neck exam: ABSENT: carotid bruit, JVD, lymphadenopathy, thyromegaly Respiratory exam: PRESENT: clear to auscultation william. ABSENT: rales, rhonchi, wheezes Cardiovascular exam: ABSENT: diastolic murmur, rubs, systolic murmur GI/Abdominal exam: PRESENT: normal bowel sounds, soft. ABSENT: distended, guarding, mass, organolmegaly, rebound, tenderness Neurological exam: PRESENT: alert, awake, oriented to person, oriented to place , oriented to time, oriented to situation, CN II-XII grossly intact. ABSENT: motor sensory deficit Results Laboratory Results: 06/03/18 15:25 06/02/18 04:00 06/03/18 15:25 WBC 7.3 RBC 2.80 L Hgb 8.8 L Hct 25.3 L MCV 90 MCH 31.5 MCHC 35.0 RDW 22.0 H Plt Count 266 Seg Neutrophils % 33.6 L Lymphocytes % 43.4 Monocytes % 19.0 H Eosinophils % 3.6 Basophils % 0.4 Absolute Neutrophils 2.5 Absolute Lymphocytes 3.2 Absolute Monocytes 1.4 Absolute Eosinophils 0.3 Absolute Basophils 0.0 Impressions: Chest/Abdomen CTA 05/23/18 19:44 IMPRESSION: 1. Negative for pulmonary arterial embolus. 2. Nonspecific patchy opacities in the right lung, new when compared to previous CT chest back in 2016. These may represent areas of scarring however, underlying infectious process is not excluded. TECHNICAL DOCUMENTATION: Quality ID # 436: Final reports with documentation of one or more dose reduction techniques (e.g., Automated exposure control, adjustment of the mA and/or kV according to patient size, use of iterative reconstruction technique) 2010 [employer]- All Rights Reserved Guidance Fluoroscopy 05/26/18 00:00 IMPRESSION: SUCCESSFUL PLACEMENT OF A 5 FR DUAL LUMEN 43 CM PICC IN THE LEFT BASILIC VEIN. Interventional Vascular Procedure 05/26/18 00:00 IMPRESSION: SUCCESSFUL PLACEMENT OF A 5 FR DUAL LUMEN 43 CM PICC IN THE LEFT BASILIC VEIN. PICC Line Insertion 05/26/18 00:00 IMPRESSION: SUCCESSFUL PLACEMENT OF A 5 FR DUAL LUMEN 43 CM PICC IN THE LEFT BASILIC VEIN. Chest X-Ray 05/28/18 00:00 IMPRESSION: Interval resolution of the previously described retrocardiac infiltrate on the left. Minimal linear densities in the right lung base most consistent with subsegmental atelectasis. PICC line with its tip the level of the right atrium. Other findings as noted above Assessment & Plan - Diagnosis (1) Diarrhea Qualifiers: Diarrhea type: functional diarrhea Qualified Code(s): K59.1 - Functional diarrhea Is this a current diagnosis for this admission?: Yes Plan: 06/03/2018 and the diarrhea is improving yesterday she has tense episodes of loose stools, she has only 3 episodes of loose stools today stool for ova and parasite is pending and stool shows few WBC. He is on Imodium. Patient is afebrile. (2) Sickle cell pain crisis Is this a current diagnosis for this admission?: Yes Plan: 06/03/2018-bhatia is getting Dilaudid 4 mg IV every 4 hours as per the patient her pain is 0 now hemoglobin is stable WBC is normal patient is afebrile blood cultures are negative. We will we will continue the present management. 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 Test hemoglobin is 8.8. It is at its baseline. - Time Time Spent with patient: 15-24 minutes Medications reviewed and adjusted accordingly: Yes Anticipated discharge: Home
[2018-06-03] MEDS: AMITRIPTYLINE HCL 50 MG TABLET PO SCH (22:54)
[2018-06-04] MEDS: DIPHENOXYLATE HCL/ATROP SULF 2.5-0.025 MG TABLET PO PRN (02:24)
[2018-06-04] MEDS: LOPERAMIDE HCL 2 MG CAPSULE PO PRN (02:24)
[2018-06-04] MEDS: HYDROMORPHONE HCL INJ/PF 2 MG/ML AMPULE IV PRN ×6 (02:24→14:50)
[2018-06-04] MEDS: POTASSI CL 20 MEQ/NS 1L 1000 ML IV PRN (05:18)
[2018-06-04] MEDS: PROMETHAZINE HCL INJ 25 MG/1 ML VIAL IV PRN (07:37)
--- NOTE | 2018-06-04 07:53 | PDOC PROGRESS REPORT ---
Subjective Progress Note for:: 06/04/18 Subjective:: Diarrhea improved over last 12 hours. Feels ready to d/c home. Reason For Visit: SICKLE CELL CRISIS Physical Exam Vital Signs: Temp Pulse Resp BP Pulse Ox 99.0 F 80 18 115/55 L 99 06/04/18 00:03 06/04/18 00:03 06/04/18 00:03 06/04/18 00:03 06/04/18 01:58 Intake & Output 06/03/18 06/04/18 06/05/18 06:59 06:59 06:59 Intake Total 4208 4301 Output Total 2500 2700 Balance 1708 1601 Weight 68.4 kg 63.8 kg General appearance: PRESENT: no acute distress, well-developed, well-nourished Head exam: PRESENT: atraumatic, normocephalic Eye exam: PRESENT: conjunctiva pink, EOMI, PERRLA. ABSENT: scleral icterus Ear exam: PRESENT: normal external ear exam Mouth exam: PRESENT: moist, tongue midline Neck exam: ABSENT: carotid bruit, JVD, lymphadenopathy, thyromegaly Respiratory exam: PRESENT: clear to auscultation william. ABSENT: rales, rhonchi, wheezes Cardiovascular exam: PRESENT: RRR. ABSENT: diastolic murmur, rubs, systolic murmur Pulses: PRESENT: normal dorsalis pedis pul Vascular exam: PRESENT: normal capillary refill GI/Abdominal exam: PRESENT: normal bowel sounds, soft. ABSENT: distended, guarding, mass, organolmegaly, rebound, tenderness Rectal exam: PRESENT: deferred Extremities exam: PRESENT: full ROM. ABSENT: calf tenderness, clubbing, pedal edema Neurological exam: PRESENT: alert, awake, oriented to person, oriented to place , oriented to time, oriented to situation, CN II-XII grossly intact. ABSENT: motor sensory deficit Psychiatric exam: PRESENT: appropriate affect, normal mood. ABSENT: homicidal ideation, suicidal ideation Skin exam: PRESENT: dry, intact, warm. ABSENT: cyanosis, rash Results Laboratory Results: 06/03/18 15:25 06/02/18 04:00 06/03/18 15:25 WBC 7.3 RBC 2.80 L Hgb 8.8 L Hct 25.3 L MCV 90 MCH 31.5 MCHC 35.0 RDW 22.0 H Plt Count 266 Seg Neutrophils % 33.6 L Lymphocytes % 43.4 Monocytes % 19.0 H Eosinophils % 3.6 Basophils % 0.4 Absolute Neutrophils 2.5 Absolute Lymphocytes 3.2 Absolute Monocytes 1.4 Absolute Eosinophils 0.3 Absolute Basophils 0.0 Impressions: Chest/Abdomen CTA 05/23/18 19:44 IMPRESSION: 1. Negative for pulmonary arterial embolus. 2. Nonspecific patchy opacities in the right lung, new when compared to previous CT chest back in 2016. These may represent areas of scarring however, underlying infectious process is not excluded. TECHNICAL DOCUMENTATION: Quality ID # 436: Final reports with documentation of one or more dose reduction techniques (e.g., Automated exposure control, adjustment of the mA and/or kV according to patient size, use of iterative reconstruction technique) 2010 [employer]- All Rights Reserved Guidance Fluoroscopy 05/26/18 00:00 IMPRESSION: SUCCESSFUL PLACEMENT OF A 5 FR DUAL LUMEN 43 CM PICC IN THE LEFT BASILIC VEIN. Interventional Vascular Procedure 05/26/18 00:00 IMPRESSION: SUCCESSFUL PLACEMENT OF A 5 FR DUAL LUMEN 43 CM PICC IN THE LEFT BASILIC VEIN. PICC Line Insertion 05/26/18 00:00 IMPRESSION: SUCCESSFUL PLACEMENT OF A 5 FR DUAL LUMEN 43 CM PICC IN THE LEFT BASILIC VEIN. Chest X-Ray 05/28/18 00:00 IMPRESSION: Interval resolution of the previously described retrocardiac infiltrate on the left. Minimal linear densities in the right lung base most consistent with subsegmental atelectasis. PICC line with its tip the level of the right atrium. 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
[2018-06-04] MEDS: FOLIC ACID 1 MG TABLET PO SCH (10:40)
[2018-06-04] MEDS: AMLODIPINE BESYLATE 5 MG TABLET PO SCH (10:40)
[2018-06-04] MEDS: CYCLOBENZAPRINE HCL 10 MG TABLET PO SCH (10:40)
[2018-06-04] MEDS: AMITRIPTYLINE HCL 25 MG TABLET PO SCH (10:44)
[2018-06-04] MEDS: ENOXAPARIN SODIUM INJ 40 MG/0.4 ML DISP.SYRIN SUBCUT SCH (10:45)
[2018-06-04] MEDS: NORMAL SALINE 10 ML SDV (SCHEDULED) IV SCH ×2 (10:45)
[2018-06-04 14:58] VITALS: BP 118/53
--- NOTE | 2018-06-04 16:26 | PDOC DISCHARGE SUMMARY ---
General - Admit/Disc Date/PCP Admission Date/Primary Care Provider: 05/25/18 15:41 SAVITA BEAL PA-C Discharge Date: 06/04/18 - Discharge Diagnosis (1) Diarrhea Is this a current diagnosis for this admission?: Yes Summary: 06/04/2018 patient was admitted on 05/23/2018 with this episode of sickle cell crisis in association with nonbloody vomiting and diarrhea several days of nonbloody diarrhea. The hospital course diarrhea gradually resolved. Stool culture shows rare WBC. She does not have any diarrhea in the last 24 hours. She is afebrile now. (2) Sickle cell pain crisis Is this a current diagnosis for this admission?: Yes Summary: 06/04/2018 has history of sickle cell anemia admitted with crisis it was managed with IV fluids and pain medications of Dilaudid 4 mg IV every 4 hours. During the hospital stay oncology consult was requested. She is pain-free today. (3) Anemia Is this a current diagnosis for this admission?: Yes Summary: 06/04/2018 has chronic anemia secondary due to sickle cell anemia latest hemoglobin is 8.8. Patient's hemoglobin is stable for the last 1 week. - Additional Information Resuscitation Status: Full Code Discharge Diet: As Tolerated Discharge Activity: Activity As Tolerated Home Medications: Amitriptyline HCl [Elavil 25 mg Tablet] 25 mg PO QAM 04/16/17 Amlodipine Besylate [Norvasc 5 mg Tablet] 5 mg PO DAILY 04/16/17 Cetirizine HCl [Zyrtec 10 mg Tablet] 10 mg PO QHS 04/16/17 Cyclobenzaprine HCl [Flexeril 5 mg Tablet] 5 mg PO Q12 04/16/17 Folic Acid [Folvite 1 mg Tablet] 1 mg PO DAILY 04/16/17 Hydroxyurea [Hydrea 500 mg Capsule] 1,500 mg PO SUTUTHSA@1000 04/16/17 Hydroxyurea [Hydrea 500 mg Capsule] 2,000 mg PO MOWEFR@1000 04/16/17 Oxycodone HCl 15 mg PO Q6HP PRN 04/16/17 Promethazine HCl [Phenergan 25 mg Tablet] 25 mg PO Q6HP PRN 04/16/17 Butalb/Acetaminophen/Caffeine [Wylcbu-Cdhyfjin-Kutx 50-300-40] 1 cap PO Q4HP PRN 09/01/17 Amitriptyline HCl [Elavil 50 mg Tablet] 50 mg PO QHS 02/27/18 History of Present Illness History of Present Illness: PRANAV JOINER is a 27 year old female with sickle cell anemia came to the emergency room with complaints of severe pains. Patient gives a history that symptoms was started few days ago and believed to be triggered by cold weather, she has a pain in the throat upper extremities abdominal and lower extremities. She feels like her pain is coming from the upper back to the chest, symptoms are associated with nausea and episode of nonbloody vomiting, she has several days of nonbloody diarrhea, denies dysuria, hematuria or frequency, also denies fever or chills,. Patient is taking oxycodone 10 mg every 4-6 hours as needed and is not helping with the pain. Patient states usually comes to the emergency room gets treatment and get discharged but the ED physician advised to be in the hospital for further management. Physical Exam Vital Signs: Temp Pulse Resp BP Pulse Ox 98.0 F 80 16 118/53 L 97 06/04/18 14:56 06/04/18 14:56 06/04/18 14:56 06/04/18 14:56 06/04/18 14:56 Intake & Output 06/03/18 06/04/18 06/05/18 06:59 06:59 06:59 Intake Total 4208 4301 1000 Output Total 2500 2700 Balance 1708 1601 1000 Weight 68.4 kg 63.8 kg General appearance: PRESENT: no acute distress Head exam: PRESENT: atraumatic Eye exam: PRESENT: PERRLA Respiratory exam: PRESENT: clear to auscultation william. ABSENT: rales, rhonchi, wheezes Cardiovascular exam: PRESENT: RRR. ABSENT: diastolic murmur, rubs, systolic murmur GI/Abdominal exam: PRESENT: normal bowel sounds, soft. ABSENT: distended, guarding, mass, organolmegaly, rebound, tenderness Neurological exam: PRESENT: alert, awake, oriented to person, oriented to place , oriented to time, oriented to situation, CN II-XII grossly intact. ABSENT: motor sensory deficit Psychiatric exam: PRESENT: appropriate affect, normal mood. ABSENT: homicidal ideation, suicidal ideation Results Laboratory Results: 06/03/18 15:25 06/02/18 04:00 06/02/18 17:40 Stool - Stool - Final Impressions: Chest/Abdomen CTA 05/23/18 19:44 IMPRESSION: 1. Negative for pulmonary arterial embolus. 2. Nonspecific patchy opacities in the right lung, new when compared to previous CT chest back in 2016. These may represent areas of scarring however, underlying infectious process is not excluded. TECHNICAL DOCUMENTATION: Quality ID # 436: Final reports with documentation of one or more dose reduction techniques (e.g., Automated exposure control, adjustment of the mA and/or kV according to patient size, use of iterative reconstruction technique) 2010 [employer]- All Rights Reserved Guidance Fluoroscopy 05/26/18 00:00 IMPRESSION: SUCCESSFUL PLACEMENT OF A 5 FR DUAL LUMEN 43 CM PICC IN THE LEFT BASILIC VEIN. Interventional Vascular Procedure 05/26/18 00:00 IMPRESSION: SUCCESSFUL PLACEMENT OF A 5 FR DUAL LUMEN 43 CM PICC IN THE LEFT BASILIC VEIN. PICC Line Insertion 05/26/18 00:00 IMPRESSION: SUCCESSFUL PLACEMENT OF A 5 FR DUAL LUMEN 43 CM PICC IN THE LEFT BASILIC VEIN. Chest X-Ray 05/28/18 00:00 IMPRESSION: Interval resolution of the previously described retrocardiac infiltrate on the left. Minimal linear densities in the right lung base most consistent with subsegmental atelectasis. PICC line with its tip the level of the right atrium. Other findings as noted above Qualifiers - * PATIENT BEING DISCHARGED WITH ANY OF THE FOLLOWING DIAGNOSIS: No VTE patient discharged on overlapping Therapy?: Yes
== END 2018-06-04 16:01 | disposition home or self-care (01) | DRG 812 ==
LOC: ER 17:26 → EH 05-24 00:13 → INTOOBSV 05-24 00:13 → 5 05-24 01:33 → OBSVTOIN 05-25 15:41 → 5 05-29 21:55
PROVIDERS: ADMIT Internal Medicine; ATTEND Internal Medicine
DX: D57.00 Hb-SS disease with crisis, unspecified (principal); K59.1 Functional diarrhea; D58.2 Other hemoglobinopathies; I10 Essential (primary) hypertension; J45.909 Unspecified asthma, uncomplicated; F32.9 Major depressive disorder, single episode, unspecified; Z79.899 Other long term (current) drug therapy; Z90.49 Acquired absence of other specified parts of digestive tract; Z87.891 Personal history of nicotine dependence; Z88.1 Allergy status to other antibiotic agents; Z91.013 Allergy to seafood; Z91.018 Allergy to other foods
CPT/HCPCS: 36415; 36430; 36569; 71046; 71275; 76937; 77001; 80048; 80053; 80307; 81001; 82550; 82553; 83615; 83735; 84484; 85025; 85045; 86850; 86900; 86901; 86902; 86920; 87040; 87045; 87177; 87205; 87493; 89055; 93005; 93010; 96361; 96372; 96374; 96376; 99285; G0378; J1170; J1642; J1650; J1940; J2405; J2550; J3010; J3480; J3490; J7030; P9016; S0119

== ENCOUNTER 2018-06-11 01:55 | Emergency (ER) | payer MEDICAID ==
[2018-06-11] MEDS ORDERED: NORMAL SALINE 1000 ML 1,000 ML IV ONE (02:43)
[2018-06-11] MEDS ORDERED: ONDANSETRON HCL INJ/PF 4 MG/2 ML SDV IV ONE (02:45)
[2018-06-11] MEDS ORDERED: PROMETHAZINE HCL INJ 25 MG/1 ML VIAL IM ONE (02:45)
[2018-06-11] MEDS ORDERED: HYDROMORPHONE HCL INJ/PF 2 MG/ML AMPULE IV ONE ×3 (02:45→05:36)
--- NOTE | 2018-06-11 02:48 | ER Document Report ---
ED General - General Chief Complaint: Vomiting Stated Complaint: VOMITING Time Seen by Provider: 06/11/18 02:37 Notes: Patient is a pleasant 27-year-old female presents with complaint of sickle cell pain crisis. She was recently admitted to the hospital. At that time she stayed for approximately 4 days and was discharged home. At that time she had a diarrheal illness which has since resolved. She states first few days after being discharged she did okay but last 2-3 days she has been having vomiting and increasing pain. She states she is unable to hold down her Phenergan or any of her pain meds. Says her pain continues worse. She said she hurts all over. She says most her pain is in her joints and will bit into her head. No pain in her chest. Some generalized mild abdominal pain. She has had a previous cholecystectomy. She still has her spleen. She has had acute chest syndrome in the past but this feels nothing like just a acute chest syndrome. No coughing or congestion. T-max at home was 99.8. 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 Her primary care doctor is with [facility]. TRAVEL OUTSIDE OF THE [place] IN LAST 30 DAYS: No - Related Data Allergies/Adverse Reactions: ceftriaxone sodium [From Rocephin] Allergy (Verified 05/05/18 08:48) Cephalosporins Allergy (Verified 05/05/18 08:48) milk [Milk] Allergy (Verified 05/05/18 08:48) Shellfish * [Shellfish] Allergy (Verified 05/05/18 08:48) wheat [Wheat] Allergy (Verified 05/05/18 08:48) Past Medical History - Social History Smoking Status: Unknown if Ever Smoked Frequency of alcohol use: None Drug Abuse: None Family History: DM, Malignancy - Brother with Hodgkin's lymphoma. Maternal grandfather with lung cancer., Other - sickle trait in Mother and Father - Past Medical History Cardiac Medical History: Reports: Hx Hypertension, Hx Heart Murmur Denies: Hx Coronary Artery Disease, Hx Heart Attack Pulmonary Medical History: Reports: Hx Asthma, Hx Pneumonia - 2017 Denies: Hx Bronchitis, Hx COPD Neurological Medical History: Reports: Hx Migraine, Hx Seizures - HX OF. NO MEDICATIONS. Denies: Hx Cerebrovascular Accident Endocrine Medical History: Denies: Hx Diabetes Mellitus Type 2, Hx Hyperthyroidism, Hx Hypothyroidism Renal/ Medical History: Denies: Hx Peritoneal Dialysis GI Medical History: Reports: Hx Gastroesophageal Reflux Disease Musculoskeletal Medical History: Denies Hx Arthritis, Denies Hx Fibromyalgia Skin Medical History: Reports Hx MRSA Psychiatric Medical History: Reports: Hx Depression - 2015 Past Surgical History: Reports: Hx Adenoidectomy, Hx Cholecystectomy, Hx Oral Surgery - growth removed from under tongue, Hx Tonsillectomy, Other - Port placement 2 and removal for infection, multiple PICC lines, central l. Denies : Hx Hysterectomy, Hx Kidney (Renal Surgery), Hx Pacemaker - Immunizations Hx Diphtheria, Pertussis, Tetanus Vaccination: Yes Hx Pneumococcal Vaccination: 07/08/11 Review of Systems - Review of Systems Notes: My Normal Review Basic REVIEW OF SYSTEMS: CONSTITUTIONAL : Denies fever, chills, or sweats. Denies recent illness. EENT: Denies eye, ear, throat, or mouth pain or symptoms. Denies nasal or sinus congestion. CARDIOVASCULAR: Denies chest pain. RESPIRATORY: Denies cough, cold, or chest congestion. Denies shortness of breath, difficulty breathing, or wheezing. GASTROINTESTINAL: Denies abdominal pain. Denies nausea, vomiting, or diarrhea. GENITOURINARY: Denies difficulty urinating, painful urination, burning, frequency, or blood in urine. MUSCULOSKELETAL: Diffuse joint pain SKIN: Denies rash or skin lesions. HEMATOLOGIC : Muscle disease LYMPHATIC: Denies swollen, enlarged glands. NEUROLOGICAL: Denies altered mental status or loss of consciousness. Denies headache. Denies weakness or paralysis or loss of use of either side. Denies problems with gait or speech. Denies sensory or motor loss. PSYCHIATRIC: Denies anxiety or stress or depression. ALL OTHER SYSTEMS REVIEWED AND NEGATIVE. Physical Exam - Vital signs Vitals: Temp Pulse Resp BP Pulse Ox 99.5 F 91 16 122/65 100 06/11/18 01:56 06/11/18 01:56 06/11/18 01:56 06/11/18 01:56 06/11/18 01:56 - Notes Notes: General Appearance: Well nourished, alert, cooperative, no acute distress, moderate obvious discomfort. Vitals: reviewed, See vital signs table. Head: no swelling or tenderness to the head Eyes: PERRL, EOMI, Conjuctiva clear Mouth: No decreasd moisture Throat: No tonsillar inflammation, No airway obstruction Neck: Supple, no neck tenderness, No thyromegaly Lungs: No wheezing, No rales, No rhonci, No accessory muscle use, good air exchange bilaterally. Heart: Normal rate, Regular rythm, No murmur, no rub Abdomen: Normal BS, soft, No rigidity, mild diffuse abdominal tenderness patient , No guarding, no rebound, no abdominal masses, no organomegaly Extremities: strength 5/5 in all extremities, good pulses in all extremities, no swelling or tenderness in the extremities, no edema. Skin: warm, dry, appropriate color, no rash Neuro: speech clear, oriented x 3, normal affect, responds appropriately to questions. Course - Re-evaluation Re-evalutation: 06/11/18 04:20 Vomiting is under control but patient still appears to be having significant pain. I will give her high dose of pain medications even get her pain under better control. She is currently trying to drink some farooq sidra. 06/11/18 06:35 Patient is feeling much improved. She has been eating and drinking. Her nausea is under control. I will send her home with Nicole. I did offer admission but she said she prefers to go home as she is feeling better and thinks she can manage this at home well. She has pain medicines at home. She has no fevers or infections. Her blood work does not show any significantly concerning findings. Her anemia is stable. She is is just a slight leukocytosis. I do not see any other signs of infection. She is afebrile. I encouraged her return to ER immediately if she has recurrent vomiting, worsening pain, any chest pain or shortness of breath, or she has concerns that she is worsening any way. Patient's test was never ran despite the blood being drawn. I did follow up and ask the patient if there is any chance she be and she says "absolutely not". Patient agrees with plan will be discharged home. Dictation of this chart was performed using voice recognition software; therefore, there may be some unintended grammatical errors. - Vital Signs Vital signs: Temp Pulse Resp BP Pulse Ox 99.5 F 91 16 122/65 100 06/11/18 01:56 06/11/18 01:56 06/11/18 01:56 06/11/18 01:56 06/11/18 01:56 - Laboratory Result Diagrams: 06/11/18 03:10 06/11/18 03:10 Laboratory results interpreted by me: 06/11/18 06/11/18 03:10 03:10 WBC 13.5 H RBC 3.35 L Hgb 10.5 L Hct 31.0 L RDW 20.5 H Plt Count 518 H Seg Neuts % (Manual) 82 H Monocytes % (Manual) 2 L Metamyelocytes % 1 H Abs Neuts (Manual) 11.2 H Retic Count (auto) 5.64 H Absolute Retic 0.189 H BUN 6 L Creatinine 0.51 L Total Bilirubin 1.9 H Discharge - Discharge Clinical Impression: Sickle cell pain crisis Vomiting Qualifiers: Vomiting type: unspecified Vomiting Intractability: unspecified Nausea presence : without nausea Qualified Code(s): R11.11 - Vomiting without nausea Condition: Good Disposition: HOME, SELF-CARE Additional Instructions: Please take your pain medicine as prescribed. Please use the Zofran initially for a nausea. You can also take your phenergan for nausea as well. The Zofran will dissolve inside your mouth. You can use it as 1 tab every 4 hours. Please follow-up closely with your dairy grazer, Dr. Cornelius. Please return to the ER if you have recurrent vomiting, intractable pain, fevers, chest pain, abdominal pain, or if you feel that you are worsening in any way. Prescriptions: Ondansetron [Zofran Odt 4 mg Tablet] 1 tab PO Q4H PRN #15 tab.rapdis PRN Reason: For Nausea/Vomiting Forms: Return to Work
[2018-06-11 03:34] LABS: ABSOLUTE RETICS # 0.189 10^6/uL (0.028-0.122); HEMOGLOBIN 10.5 g/dL (12.0-15.5); MEAN CORPUSCULAR HEMOGLOBIN 31.3 pg (27.0-33.4); MEAN CORPUSCULAR HGB CONC 33.8 g/dL (32.0-36.0); MEAN CORPUSCULAR VOLUME 92 fl (80-97); PLATELET COUNT 518 10^3/uL (150-450); RED BLOOD COUNT 3.35 10^6/uL (3.72-5.28); RED CELL DISTRIBUTION WIDTH 20.5 % (11.5-14.0); RETICULOCYTE COUNT (AUTO) 5.64 % (0.66-2.85); WHITE BLOOD COUNT 13.5 10^3/uL (4.0-10.5)
[2018-06-11 03:41] LABS: ALANINE AMINOTRANSFERASE 27 U/L (9-52); ALBUMIN 4.2 g/dL (3.5-5.0); ALKALINE PHOSPHATASE 63 U/L (38-126); ANION GAP 13 (5-19); ASPARTATE AMINO TRANSFERASE 28 U/L (14-36); BILIRUBIN,DIRECT 0.1 mg/dL (0.0-0.4); BILIRUBIN,TOTAL 1.9 mg/dL (0.2-1.3); BLOOD UREA NITROGEN 6 mg/dL (7-20); CALCIUM 9.1 mg/dL (8.4-10.2); CARBON DIOXIDE 26 mmol/L (22-30); CHLORIDE 103 mmol/L (98-107); GLUCOSE 99 mg/dL (75-110); LIPASE 295.1 U/L (23-300); POTASSIUM 4.3 mmol/L (3.6-5.0); SODIUM 142.2 mmol/L (137-145); TOTAL PROTEIN 7.1 g/dL (6.3-8.2)
[2018-06-11 04:04] LABS: ABSOLUTE LYMPHOCYTES# (MANUAL) 1.8 10^3/uL (0.5-4.7); ABSOLUTE MONOCYTES # (MANUAL) 0.3 10^3/uL (0.1-1.4); ABSOLUTE NEUTROPHILS# (MANUAL) 11.2 10^3/uL (1.7-8.2); BASOPHILS % (MANUAL) 0 % (0-2); EOSINOPHILS % (MANUAL) 2 % (0-6); LYMPHOCYTES % (MANUAL) 13 % (13-45); METAMYELOCYTES % (MANUAL) 1 % (0); MONOCYTES % (MANUAL) 2 % (3-13); SEGMENTED NEUTROPHILS % (MAN) 82 % (42-78); TOTAL CELLS COUNTED 100
[2018-06-11 04:05] LABS: ANISOCYTOSIS 2+; HOWELL-JOLLY BODIES PRESENT; PAPPENHEIMER BODIES PRESENT; PLATELET CLUMPS PRESENT; PLATELET COMMENT ADEQUATE; PLATELET GIANT PRESENT; PLATELET LARGE PRESENT; POIKILOCYTOSIS 1+; POLYCHROMASIA 1+; SCHISTOCYTES SLIGHT; SICKLE RED CELLS 1+; TARGET CELLS 1+; TOXIC GRANULATION 1+
[2018-06-11] MEDS ORDERED: ONDANSETRON ODT 4 MG TAB (6 TAB/ER DISP) PO PRN (06:33)
[2018-06-11 07:04] VITALS: BP 117/71
== END 2018-06-11 07:02 | disposition home or self-care (01) ==
LOC: ER 01:55
DX: D57.00 Hb-SS disease with crisis, unspecified (principal); R11.11 Vomiting without nausea; M25.50 Pain in unspecified joint; R51 Headache; R10.84 Generalized abdominal pain; D72.829 Elevated white blood cell count, unspecified; I10 Essential (primary) hypertension; J45.909 Unspecified asthma, uncomplicated; Z90.49 Acquired absence of other specified parts of digestive tract; Z88.1 Allergy status to other antibiotic agents; Z91.011 Allergy to milk products; Z91.013 Allergy to seafood; Z91.018 Allergy to other foods
CPT/HCPCS: 96376; 99284; 96372; 96374; 96375; 36415; 83690; 85025; 85045; 80053; J1170; J2550; J2405; J7030

== ENCOUNTER 2018-06-25 11:01 | Outpatient (CLI) | payer MEDICAID ==
[2018-06-25] MEDS ORDERED: NORMAL SALINE 1000 ML 1,000 ML IV PRN (11:12)
[2018-06-25] MEDS ORDERED: HYDROMORPHONE HCL INJ/PF 2 MG/ML AMPULE IV PRN (11:13)
[2018-06-25] MEDS ORDERED: PROMETHAZINE HCL INJ 25 MG/1 ML VIAL IV ONE (12:45)
[2018-06-25 13:03] VITALS: BP 125/65
== END 2018-06-25 13:51 | disposition home or self-care (01) ==
LOC: II 11:01
PROVIDERS: ATTEND Internal Medicine
PROC: 3E0337Z Introduction of Electrolytic and Water Balance Substance into Peripheral Vein, Percutaneous Approach (ICD-10-PCS; principal; 2018-06-25)
PROC: 3E033GC Introduction of Other Therapeutic Substance into Peripheral Vein, Percutaneous Approach (ICD-10-PCS; 2018-06-25)
DX: D57.00 Hb-SS disease with crisis, unspecified (principal); E86.0 Dehydration; R11.0 Nausea; R52 Pain, unspecified
CPT/HCPCS: 96360; 96361; 96374; 96375

== ENCOUNTER 2018-06-27 10:11 | Outpatient (CLI) | payer MEDICAID ==
[2018-06-27] MEDS ORDERED: HYDROMORPHONE HCL INJ/PF 2 MG/ML AMPULE ONE (10:39)
[2018-06-27] MEDS: HYDROMORPHONE HCL INJ/PF 2 MG/ML AMPULE IV PRN (10:44)
[2018-06-27] MEDS: NORMAL SALINE 1000 ML 1,000 ML IV PRN (10:45)
[2018-06-27] MEDS ORDERED: PROMETHAZINE HCL INJ 25 MG/1 ML VIAL ONE (11:01)
[2018-06-27] MEDS: PROMETHAZINE HCL INJ 25 MG/1 ML VIAL IV ONE (11:02)
[2018-06-27 11:58] VITALS: BP 125/57
== END 2018-06-27 13:32 | disposition home or self-care (01) ==
LOC: II 10:11 → 5TH 10:12 → II 13:32
PROVIDERS: ATTEND Internal Medicine
DX: D57.00 Hb-SS disease with crisis, unspecified (principal)
CPT/HCPCS: 96374; 96375; 96360; 96361; J1170; J2550

== ENCOUNTER 2018-06-30 08:48 | Outpatient (CLI) | payer MEDICAID ==
[2018-06-30] MEDS ORDERED: NORMAL SALINE 1000 ML 1,000 ML IV PRN (09:16)
[2018-06-30] MEDS ORDERED: HYDROMORPHONE HCL INJ/PF 2 MG/ML AMPULE IV PRN (09:17)
[2018-06-30 09:44] VITALS: BP 112/56
== END 2018-06-30 10:32 | disposition home or self-care (01) ==
LOC: 2N 08:48 → II 08:48
PROVIDERS: ATTEND Internal Medicine
PROC: 3E0337Z Introduction of Electrolytic and Water Balance Substance into Peripheral Vein, Percutaneous Approach (ICD-10-PCS; principal; 2018-06-30)
PROC: 3E033GC Introduction of Other Therapeutic Substance into Peripheral Vein, Percutaneous Approach (ICD-10-PCS; 2018-06-30)
DX: D57.00 Hb-SS disease with crisis, unspecified (principal); E86.0 Dehydration; R11.0 Nausea; R52 Pain, unspecified
CPT/HCPCS: 96374; 96361; J1170; J7030

== ENCOUNTER 2018-07-02 11:08 | Outpatient (CLI) | payer MEDICAID ==
[~2018-07-02 11:08] MED LIST changes: -PROMETHAZINE HCL INJ 25 MG/1 ML VIAL IV PRN
[2018-07-02 11:32] VITALS: BP 118/70
== END 2018-07-02 13:18 | disposition home or self-care (01) ==
LOC: II 11:08 → 5TH 11:09 → II 13:18
PROVIDERS: ATTEND Internal Medicine
PROC: 3E033GC Introduction of Other Therapeutic Substance into Peripheral Vein, Percutaneous Approach (ICD-10-PCS; principal; 2018-07-02)
PROC: 3E0337Z Introduction of Electrolytic and Water Balance Substance into Peripheral Vein, Percutaneous Approach (ICD-10-PCS; 2018-07-02)
DX: D57.00 Hb-SS disease with crisis, unspecified (principal); E86.0 Dehydration; R11.0 Nausea; R52 Pain, unspecified
CPT/HCPCS: 96374; 96361; J1170; 96360; 96375

== ENCOUNTER 2018-07-04 08:08 | Outpatient (CLI) | payer MEDICAID ==
[2018-07-04] MEDS ORDERED: NORMAL SALINE 1000 ML 1,000 ML IV PRN (08:15)
[2018-07-04] MEDS ORDERED: HYDROMORPHONE HCL INJ/PF 2 MG/ML AMPULE IV PRN (08:17)
[2018-07-04 09:19] VITALS: BP 121/59
== END 2018-07-04 11:00 | disposition home or self-care (01) ==
LOC: II 08:08 → 5TH 08:11 → II 11:00
PROVIDERS: ATTEND Internal Medicine
PROC: 3E033GC Introduction of Other Therapeutic Substance into Peripheral Vein, Percutaneous Approach (ICD-10-PCS; principal; 2018-07-04)
PROC: 3E0337Z Introduction of Electrolytic and Water Balance Substance into Peripheral Vein, Percutaneous Approach (ICD-10-PCS; 2018-07-04)
DX: D57.00 Hb-SS disease with crisis, unspecified (principal); E86.0 Dehydration; R11.0 Nausea; R52 Pain, unspecified
CPT/HCPCS: 96375; 96360; J1170; 96361; 96374

== ENCOUNTER 2018-07-15 12:58 | Outpatient (CLI) | payer MEDICAID ==
[2018-07-15 14:11] VITALS: BP 105/67
== END 2018-07-15 16:14 | disposition home or self-care (01) ==
LOC: II 12:58 → 5TH 14:10 → II 16:14
PROVIDERS: ATTEND Internal Medicine
PROC: 3E0337Z Introduction of Electrolytic and Water Balance Substance into Peripheral Vein, Percutaneous Approach (ICD-10-PCS; principal; 2018-07-15)
PROC: 3E033GC Introduction of Other Therapeutic Substance into Peripheral Vein, Percutaneous Approach (ICD-10-PCS; 2018-07-15)
DX: D57.00 Hb-SS disease with crisis, unspecified (principal); E86.0 Dehydration; R11.0 Nausea; R52 Pain, unspecified
CPT/HCPCS: 96374; 96360; 96361; J1170

== ENCOUNTER 2018-07-17 11:18 | Outpatient (CLI) | payer MEDICAID ==
[2018-07-17 12:00] VITALS: BP 127/60
== END 2018-07-17 13:30 | disposition home or self-care (01) ==
LOC: II 11:18 → 5TH 11:21 → II 13:30
PROVIDERS: ATTEND Internal Medicine
PROC: 3E0337Z Introduction of Electrolytic and Water Balance Substance into Peripheral Vein, Percutaneous Approach (ICD-10-PCS; principal; 2018-07-17)
PROC: 3E033GC Introduction of Other Therapeutic Substance into Peripheral Vein, Percutaneous Approach (ICD-10-PCS; 2018-07-17)
DX: D57.00 Hb-SS disease with crisis, unspecified (principal); E86.0 Dehydration; R11.0 Nausea; R52 Pain, unspecified
CPT/HCPCS: 96375; 96360; 96361; J1170; 96374

== ENCOUNTER 2018-07-18 10:19 | Outpatient (CLI) | payer MEDICAID ==
[2018-07-18 10:43] VITALS: BP 112/57
[2018-07-18] MEDS ORDERED: NORMAL SALINE 1000 ML 1,000 ML IV PRN (10:55)
[2018-07-18] MEDS ORDERED: HYDROMORPHONE HCL INJ/PF 2 MG/ML AMPULE IV ONE (11:30)
== END 2018-07-18 12:30 | disposition home or self-care (01) ==
LOC: II 10:19 → 5TH 10:23 → II 12:30
PROVIDERS: ATTEND Internal Medicine
PROC: 3E0337Z Introduction of Electrolytic and Water Balance Substance into Peripheral Vein, Percutaneous Approach (ICD-10-PCS; principal; 2018-07-18)
PROC: 3E033GC Introduction of Other Therapeutic Substance into Peripheral Vein, Percutaneous Approach (ICD-10-PCS; 2018-07-18)
DX: D57.00 Hb-SS disease with crisis, unspecified (principal); E86.0 Dehydration; R11.0 Nausea; R52 Pain, unspecified
CPT/HCPCS: 96375; 96360; 96361; J1170; 96374

== ENCOUNTER 2018-07-23 12:58 | Outpatient (CLI) | payer MEDICAID ==
[2018-07-23 14:52] VITALS: BP 106/52
== END 2018-07-23 16:00 | disposition home or self-care (01) ==
LOC: II 12:58 → 5TH 13:00 → II 16:00
PROVIDERS: ATTEND Internal Medicine
PROC: 3E033GC Introduction of Other Therapeutic Substance into Peripheral Vein, Percutaneous Approach (ICD-10-PCS; principal; 2018-07-23)
PROC: 3E0337Z Introduction of Electrolytic and Water Balance Substance into Peripheral Vein, Percutaneous Approach (ICD-10-PCS; 2018-07-23)
DX: D57.00 Hb-SS disease with crisis, unspecified (principal); E86.0 Dehydration; R11.0 Nausea; R52 Pain, unspecified
CPT/HCPCS: 96374; 96360; 96361; J1170

== ENCOUNTER 2018-07-25 10:09 | Outpatient (CLI) | payer MEDICAID ==
[2018-07-25 10:32] VITALS: BP 109/64
== END 2018-07-25 12:15 | disposition home or self-care (01) ==
LOC: II 10:09 → 5TH 10:12 → II 12:15
PROVIDERS: ATTEND Internal Medicine
PROC: 3E033GC Introduction of Other Therapeutic Substance into Peripheral Vein, Percutaneous Approach (ICD-10-PCS; principal; 2018-07-25)
PROC: 3E0337Z Introduction of Electrolytic and Water Balance Substance into Peripheral Vein, Percutaneous Approach (ICD-10-PCS; 2018-07-25)
DX: D57.00 Hb-SS disease with crisis, unspecified (principal); E86.0 Dehydration; R11.0 Nausea; R52 Pain, unspecified
CPT/HCPCS: 96375; 96360; 96361; J1170; 96374

== ENCOUNTER 2018-08-06 14:04 | Outpatient (CLI) | payer MEDICAID ==
[2018-08-06 14:29] VITALS: BP 122/54
[2018-08-06] MEDS ORDERED: PROMETHAZINE HCL INJ 25 MG/1 ML VIAL ONE (15:57)
[2018-08-06] MEDS ORDERED: PROMETHAZINE HCL INJ 25 MG/1 ML VIAL IV ONE (16:00)
== END 2018-08-06 16:11 | disposition home or self-care (01) ==
LOC: II 14:04 → 5TH 14:10 → II 16:11
PROVIDERS: ATTEND Internal Medicine
PROC: 3E033GC Introduction of Other Therapeutic Substance into Peripheral Vein, Percutaneous Approach (ICD-10-PCS; principal; 2018-08-06)
PROC: 3E0337Z Introduction of Electrolytic and Water Balance Substance into Peripheral Vein, Percutaneous Approach (ICD-10-PCS; 2018-08-06)
DX: D57.00 Hb-SS disease with crisis, unspecified (principal); E86.0 Dehydration; R11.0 Nausea; R52 Pain, unspecified
CPT/HCPCS: 96374; 96361; J1170; J2550; 96360; 96375

== ENCOUNTER 2018-08-07 11:53 | Outpatient (CLI) | payer MEDICAID ==
[~2018-08-07 11:53] MED LIST changes: +PROMETHAZINE HCL INJ 25 MG/1 ML VIAL IV PRN
[2018-08-07 12:51] VITALS: BP 117/63
== END 2018-08-07 14:15 | disposition home or self-care (01) ==
LOC: II 11:53 → 5TH 11:58 → II 14:15
PROVIDERS: ATTEND Internal Medicine
PROC: 3E033GC Introduction of Other Therapeutic Substance into Peripheral Vein, Percutaneous Approach (ICD-10-PCS; principal; 2018-08-07)
PROC: 3E0337Z Introduction of Electrolytic and Water Balance Substance into Peripheral Vein, Percutaneous Approach (ICD-10-PCS; 2018-08-07)
DX: D57.00 Hb-SS disease with crisis, unspecified (principal); E86.0 Dehydration; R11.0 Nausea; R52 Pain, unspecified
CPT/HCPCS: 96375; 96360; 96361; J1170; J2550; 96374

== ENCOUNTER 2018-08-08 10:29 | Outpatient (CLI) | payer MEDICAID ==
[2018-08-08 12:21] VITALS: BP 112/50
== END 2018-08-08 12:22 | disposition home or self-care (01) ==
LOC: II 10:29 → 5TH 10:37 → II 12:22
PROVIDERS: ATTEND Internal Medicine
PROC: 3E033GC Introduction of Other Therapeutic Substance into Peripheral Vein, Percutaneous Approach (ICD-10-PCS; principal; 2018-08-08)
PROC: 3E0337Z Introduction of Electrolytic and Water Balance Substance into Peripheral Vein, Percutaneous Approach (ICD-10-PCS; 2018-08-08)
DX: D57.00 Hb-SS disease with crisis, unspecified (principal); E86.0 Dehydration; R11.0 Nausea; R52 Pain, unspecified
CPT/HCPCS: 96374; 96375; 96360; J1170; J2550; 96361

== ENCOUNTER 2018-08-15 12:21 | Outpatient (CLI) | payer MEDICAID ==
[2018-08-15] MEDS ORDERED: HYDROMORPHONE HCL INJ/PF 2 MG/ML AMPULE IV PRN (12:31)
[2018-08-15] MEDS ORDERED: NORMAL SALINE 1000 ML 1,000 ML IV PRN (12:32)
[2018-08-15 14:01] VITALS: BP 114/51
== END 2018-08-15 16:00 | disposition home or self-care (01) ==
LOC: II 12:21 → 5TH 12:27 → II 16:00
PROVIDERS: ATTEND Internal Medicine
PROC: 3E033GC Introduction of Other Therapeutic Substance into Peripheral Vein, Percutaneous Approach (ICD-10-PCS; principal; 2018-08-15)
PROC: 3E0337Z Introduction of Electrolytic and Water Balance Substance into Peripheral Vein, Percutaneous Approach (ICD-10-PCS; 2018-08-15)
DX: D57.00 Hb-SS disease with crisis, unspecified (principal); E86.0 Dehydration; R52 Pain, unspecified
CPT/HCPCS: 96375; 96360; 96361; J1170; 96374

== ENCOUNTER 2018-08-30 15:15 | Emergency (ER) | payer MEDICAID ==
[2018-08-30] MEDS ORDERED: ONDANSETRON HCL INJ/PF 4 MG/2 ML SDV IV ONE ×2 (16:28→17:46)
[2018-08-30] MEDS ORDERED: HYDROMORPHONE HCL INJ/PF 2 MG/ML AMPULE IV ONE ×3 (16:28→20:15)
[2018-08-30] MEDS ORDERED: NORMAL SALINE 1000 ML 1,000 ML IV ONE (16:28)
--- NOTE | 2018-08-30 16:30 | ER Document Report ---
ED Medical Screen (RME) - General Chief Complaint: Sickle Cell Crisis Stated Complaint: BACK/KNEE PAIN Time Seen by Provider: 08/30/18 16:19 Primary Care Provider: LINETTE GALVAN DO [Primary Care Provider] - Follow up as needed Notes: Patient is a 28-year-old female with sickle cell anemia that presents to the emergency department for chief complaint of back pain, knee pain. Denies having any chest pain. ROS: Other than noted above, the 12 point review of systems was reviewed with the patient and were negative, all pertinent findings are included in the HPI. PHYSICAL EXAMINATION: Vital signs reviewed. GENERAL: Well-appearing, well-nourished and in no acute distress. HEAD: Atraumatic, normocephalic. EYES: Pupils equal round extraocular movements intact, conjunctiva are normal. ENT: Nares patent NECK: Normal range of motion CV: Heart regular rate and rhythm LUNGS: No respiratory distress Musculoskeletal: Normal range of motion NEUROLOGICAL: Normal speech PSYCH: Normal mood, normal affect. MDM: Patient seen and examined for rapid initial assessment. Vital signs reviewed. A comprehensive ED assessment and evaluation of the patient, analysis of test results and completion of the medical decision making process will be conducted by additional ED providers. *Note is created using voice recognition software and may contain spelling, syntax or grammatical errors. TRAVEL OUTSIDE OF THE [place] IN LAST 30 DAYS: No - Related Data Allergies/Adverse Reactions: ceftriaxone sodium [From Rocephin] Allergy (Verified 08/30/18 15:18) Cephalosporins Allergy (Verified 08/30/18 15:18) milk [Milk] Allergy (Verified 08/30/18 15:18) Shellfish * [Shellfish] Allergy (Verified 08/30/18 15:18) wheat [Wheat] Allergy (Verified 08/30/18 15:18) Past Medical History - Social History Chew tobacco use (# tins/day): No Frequency of alcohol use: Occasional Drug Abuse: None Family history: None - Past Medical History Cardiac Medical History: Reports: Hx Hypertension, Hx Heart Murmur Denies: Hx Coronary Artery Disease, Hx Heart Attack Pulmonary Medical History: Reports: Hx Asthma, Hx Pneumonia - 2017 Denies: Hx Bronchitis, Hx COPD, Hx Tuberculosis Neurological Medical History: Reports: Hx Migraine, Hx Seizures - HX OF. NO MEDICATIONS. Denies: Hx Cerebrovascular Accident Endocrine Medical History: Denies: Hx Diabetes Mellitus Type 2, Hx Hyperthyroidism, Hx Hypothyroidism Renal/ Medical History: Denies: Hx Peritoneal Dialysis GI Medical History: Reports: Hx Gastroesophageal Reflux Disease Musculoskeltal Medical History: Denies Hx Arthritis, Denies Hx Fibromyalgia Skin Medical History: Reports Hx MRSA Psychiatric Medical History: Reports: Hx Depression - 2014 Past Surgical History: Reports: Hx Adenoidectomy, Hx Cholecystectomy, Hx Oral Surgery - growth removed from under tongue, Hx Tonsillectomy, Other - Port placement 2 and removal for infection, multiple PICC lines, central l. Denies: Hx Hysterectomy, Hx Kidney (Renal Surgery), Hx Pacemaker - Immunizations Hx Diphtheria, Pertussis, Tetanus Vaccination: Yes History of Influenza Vaccine for 04/2017 - 09/2017 Season: Yes Influenza Administration Date for 04/2017 - 09/2017 Season: 03/22/17 Physical Exam - Vital signs Vitals: Temp Pulse Resp BP Pulse Ox 99.3 F 95 16 114/57 L 97 08/30/18 15:41 08/30/18 15:41 08/30/18 15:41 08/30/18 15:41 08/30/18 15:41 Course - Vital Signs Vital signs: Temp Pulse Resp BP Pulse Ox 99.3 F 95 16 114/57 L 97 08/30/18 15:41 08/30/18 15:41 08/30/18 15:41 08/30/18 15:41 08/30/18 15:41 Doctor's Discharge - Discharge Referrals: LINETTE GALVAN DO [Primary Care Provider] - Follow up as needed
[2018-08-30 17:11] LABS: ABSOLUTE BASOPHILS # (AUTO) 0.1 10^3/uL (0.0-0.2); ABSOLUTE EOSINOPHILS # (AUTO) 0.1 10^3/uL (0.0-0.6); ABSOLUTE LYMPHOCYTES (AUTO) 2.2 10^3/uL (0.5-4.7); ABSOLUTE MONOCYTES (AUTO) 0.8 10^3/uL (0.1-1.4); ABSOLUTE NEUT (AUTO) 5.1 10^3/uL (1.7-8.2); ABSOLUTE RETICS # 0.094 10^6/uL (0.028-0.122); BASOPHILS % (AUTO) 1.4 % (0-2); HEMATOCRIT 22.8 % (36.0-47.0); HEMOGLOBIN 8.3 g/dL (12.0-15.5); LYMPHOCYTES % (AUTO) 26.5 % (13-45); MEAN CORPUSCULAR HEMOGLOBIN 32.2 pg (27.0-33.4); MEAN CORPUSCULAR HGB CONC 36.5 g/dL (32.0-36.0); MEAN CORPUSCULAR VOLUME 88 fl (80-97); MONOCYTES % (AUTO) 9.3 % (3-13); PLATELET COUNT 361 10^3/uL (150-450); RED BLOOD COUNT 2.58 10^6/uL (3.72-5.28); RED CELL DISTRIBUTION WIDTH 22.1 % (11.5-14.0); RETICULOCYTE COUNT (AUTO) 3.64 % (0.66-2.85); SEGMENTED NEUTROPHILS % (AUTO) 61.8 % (42-78); TOTAL CELLS COUNTED % (AUTO) 100 %; WHITE BLOOD COUNT 8.3 10^3/uL (4.0-10.5)
[2018-08-30 17:34] LABS: ANISOCYTOSIS 3+; OVALOCYTES SLIGHT; POIKILOCYTOSIS 3+; POLYCHROMASIA SLIGHT
[2018-08-30 17:35] LABS: HOWELL-JOLLY BODIES PRESENT; PAPPENHEIMER BODIES PRESENT; PLATELET LARGE PRESENT; SCHISTOCYTES SLIGHT; SICKLE RED CELLS 2+; TARGET CELLS 1+
[2018-08-30 17:36] LABS: PLATELET COMMENT ADEQUATE
--- NOTE | 2018-08-30 17:48 | ER Document Report ---
ED General - General Chief Complaint: Sickle Cell Crisis Stated Complaint: BACK/KNEE PAIN Time Seen by Provider: 08/30/18 16:19 Primary Care Provider: LINETTE GALVAN DO [Primary Care Provider] - Follow up as needed BRUNA MENJIVAR MD [ACTIVE STAFF] - 09/01/18 Mode of Arrival: Ambulatory Information source: Patient Notes: Patient presents with a 3-day history of intermittent low back and left knee pain. Patient has a history of sickle cell anemia and suspects that she is having a pain crisis. Patient denies any fever, headache or chest pain. Patient does report some nausea. TRAVEL OUTSIDE OF THE [place] IN LAST 30 DAYS: No - HPI Onset: Other - 3 days Onset/Duration: Waxing and waning Quality of pain: Achy Pain Level: 4 Associated symptoms: Nausea. denies: Chest pain, Nonproductive cough, Productive cough, Fever, Headache, Vomiting Exacerbated by: Denies Relieved by: Denies Similar symptoms previously: Yes Recently seen / treated by doctor: No - Related Data Allergies/Adverse Reactions: ceftriaxone sodium [From Rocephin] Allergy (Verified 08/30/18 15:18) Cephalosporins Allergy (Verified 08/30/18 15:18) milk [Milk] Allergy (Verified 08/30/18 15:18) Shellfish * [Shellfish] Allergy (Verified 08/30/18 15:18) wheat [Wheat] Allergy (Verified 08/30/18 15:18) Past Medical History - General Information source: Patient - Social History Smoking Status: Never Smoker Chew tobacco use (# tins/day): No Frequency of alcohol use: Occasional Drug Abuse: None Occupation: [employer] Family History: DM, Malignancy - Brother with Hodgkin's lymphoma. Maternal grandfather with lung cancer., Other - sickle trait in Mother and Father Patient has suicidal ideation: No Patient has homicidal ideation: No - Medical History Medical History: Other - Sickle cell anemia - Past Medical History Cardiac Medical History: Reports: Hx Hypertension, Hx Heart Murmur Pulmonary Medical History: Reports: Hx Asthma, Hx Pneumonia - 2017 Denies: Hx Bronchitis, Hx COPD, Hx Tuberculosis Neurological Medical History: Reports: Hx Migraine, Hx Seizures - HX OF. NO MEDICATIONS Renal/ Medical History: Denies: Hx Peritoneal Dialysis GI Medical History: Reports: Hx Gastroesophageal Reflux Disease Skin Medical History: Reports Hx MRSA Psychiatric Medical History: Reports: Hx Depression - 2015 Past Surgical History: Reports: Hx Adenoidectomy, Hx Cholecystectomy, Hx Oral Surgery - growth removed from under tongue, Hx Tonsillectomy, Other - Port placement 2 and removal for infection, multiple PICC lines, central l - Immunizations Hx Diphtheria, Pertussis, Tetanus Vaccination: Yes Hx Pneumococcal Vaccination: 07/08/11 Review of Systems - Review of Systems Constitutional: No symptoms reported. denies: Fever, Recent illness EENT: No symptoms reported Cardiovascular: No symptoms reported. denies: Chest pain, Lightheaded Respiratory: No symptoms reported. denies: Cough, Short of breath Gastrointestinal: Nausea. denies: Abdominal pain, Diarrhea, Vomiting Genitourinary: No symptoms reported. denies: Dysuria Female Genitourinary: No symptoms reported. denies: Musculoskeletal: Back pain, Joint pain - Left knee Skin: No symptoms reported Hematologic/Lymphatic: No symptoms reported Neurological/Psychological: No symptoms reported. denies: Confusion, Weakness, Lost consciousness, Headaches Physical Exam - Vital signs Vitals: Temp Pulse Resp BP Pulse Ox 99.3 F 95 16 114/57 L 97 08/30/18 15:41 08/30/18 15:41 08/30/18 15:41 08/30/18 15:41 08/30/18 15:41 - General General appearance: Appears well, Alert In distress: None - HEENT Head: Normocephalic, Atraumatic Eyes: Normal Conjunctiva: Normal Nasal: Normal Mouth/Lips: Normal Mucous membranes: Normal Neck: Normal, Supple. No: Lymphadenopathy - Respiratory Respiratory status: No respiratory distress Chest status: Nontender Breath sounds: Normal. No: Rales, Rhonchi, Stridor, Wheezing Chest palpation: Normal - Cardiovascular Rhythm: Regular Heart sounds: S1 appreciated, S2 appreciated - Abdominal Inspection: Normal Distension: No distension - Back Back: Tender - Lumbar paraspinal tenderness - Extremities General upper extremity: Normal inspection, Normal strength General lower extremity: Normal inspection, Normal strength Knee: Tender - Generalized tenderness to left knee, Patellar tendon intact. No: Deformity, Instability, Joint effusion, Laceration, Laxity with valgus stress, Laxity with varus stress, Tender joint line, Unable to bear weight - Neurological Neuro grossly intact: Yes Cognition: Normal Orientation: AAOx4 Kelsey Coma Scale Eye Opening: Spontaneous [place] Coma Scale Verbal: Oriented Kelsey Coma Scale Motor: Obeys Commands Kelsey Coma Scale Total: 15 - Psychological Associated symptoms: Normal affect, Normal mood - Skin Skin Temperature: Warm Skin Moisture: Dry Skin Color: Normal Course - Re-evaluation Re-evalutation: 08/30/18 20:[address] Conner regarding patient's presentation and evaluation. Patient appears stable for discharge. No additional testing or medications advised at this time. Discussed plan of care with patient, patient is agreeable with discharge plan of care at this time. Patient without any chest pain abdominal pain or headache. - Vital Signs Vital signs: Temp Pulse Resp BP Pulse Ox 98.1 F 103 H 18 122/77 94 08/30/18 21:00 08/30/18 21:00 08/30/18 21:00 08/30/18 21:00 08/30/18 21:00 - Laboratory Result Diagrams: 08/30/18 16:30 08/30/18 19:40 Laboratory results interpreted by me: 08/30/18 16:30 RBC 2.58 L Hgb 8.3 L Hct 22.8 L MCHC 36.5 H RDW 22.1 H Retic Count (auto) 3.64 H 08/30/18 20:46 Labs- Entire Visit 08/30/18 08/30/18 08/30/18 16:30 16:30 17:47 WBC 8.3 RBC 2.58 L Hgb 8.3 L Hct 22.8 L MCV 88 MCH 32.2 MCHC 36.5 H RDW 22.1 H Plt Count 361 Seg Neutrophils % 61.8 Lymphocytes % 26.5 Monocytes % 9.3 Eosinophils % 1.0 Basophils % 1.4 Absolute Neutrophils 5.1 Absolute Lymphocytes 2.2 Absolute Monocytes 0.8 Absolute Eosinophils 0.1 Absolute Basophils 0.1 Large Platelets PRESENT Platelet Comment ADEQUATE Polychromasia SLIGHT Poikilocytosis 3+ Anisocytosis 3+ Pappenheimer Bodies PRESENT Sickle Cells 2+ Target Cells 1+ Ovalocytes SLIGHT [place] Bodies PRESENT Acanthocytes (Spur) SLIGHT Schistocytes SLIGHT Retic Count (auto) 3.64 H Absolute Retic 0.094 Sodium Cancelled Potassium Cancelled Chloride Cancelled Carbon Dioxide Cancelled Anion Gap Cancelled BUN Cancelled Creatinine Cancelled Est GFR ( Amer) Cancelled Est GFR (Non-Af Amer) Cancelled Glucose Cancelled Calcium Cancelled Urine Color YELLOW Urine Appearance CLEAR Urine pH 7.0 Ur Specific Alpha 1.009 Urine Protein NEGATIVE Urine Glucose (UA) NEGATIVE Urine Ketones NEGATIVE Urine Blood NEGATIVE Urine Nitrite NEGATIVE Urine Bilirubin NEGATIVE Urine Urobilinogen NEGATIVE Ur Leukocyte Esterase NEGATIVE Urine WBC (Auto) 0 Squamous Epi Cells Auto 1 Urine Mucus (Auto) RARE Urine Ascorbic Acid NEGATIVE 08/30/18 08/30/18 18:58 19:40 WBC RBC Hgb Hct MCV MCH MCHC RDW Plt Count Seg Neutrophils % Lymphocytes % Monocytes % Eosinophils % Basophils % Absolute Neutrophils Absolute Lymphocytes Absolute Monocytes Absolute Eosinophils Absolute Basophils Large Platelets Platelet Comment Polychromasia Poikilocytosis Anisocytosis Pappenheimer Bodies Sickle Cells Target Cells Ovalocytes [place] Bodies Acanthocytes (Spur) Schistocytes Retic Count (auto) Absolute Retic Sodium Cancelled 140.4 Potassium Cancelled 4.8 Chloride Cancelled 107 Carbon Dioxide Cancelled 26 Anion Gap Cancelled 7 BUN Cancelled 7 Creatinine Cancelled 0.53 Est GFR ( Amer) Cancelled > 60 Est GFR (Non-Af Amer) Cancelled > 60 Glucose Cancelled 105 Calcium Cancelled 9.2 Urine Color Urine Appearance Urine pH Ur Specific Alpha Urine Protein Urine Glucose (UA) Urine Ketones Urine Blood Urine Nitrite Urine Bilirubin Urine Urobilinogen Ur Leukocyte Esterase Urine WBC (Auto) Squamous Epi Cells Auto Urine Mucus (Auto) Urine Ascorbic Acid Discharge - Discharge Clinical Impression: Sickle cell anemia with pain Condition: Stable Disposition: HOME, SELF-CARE Instructions: Intravenous (IV) Fluids ([facility]), Sickle Cell Crisis ([facility]) Additional Instructions: Return immediately for any new or worsening symptoms Followup with your primary care provider, call tomorrow to make a followup appointment Stay well-hydrated at home. Take your medications as you have at home as prescribed Referrals: LINETTE GALVAN DO [Primary Care Provider] - Follow up as needed BRUNA MENJIVAR MD [ACTIVE STAFF] - 09/01/18
[2018-08-30 18:14] LABS: APPEARANCE,URINE CLEAR; BILIRUBIN,URINE NEGATIVE (NEGATIVE); COLOR,URINE YELLOW; GLUCOSE, URINE NEGATIVE (NEGATIVE); KETONES,URINE NEGATIVE (NEGATIVE); LEUKOCYTE ESTERASE,URINE NEGATIVE (NEGATIVE); NITRITE,URINE NEGATIVE (NEGATIVE); PROTEIN,URINE NEGATIVE (NEGATIVE); URINE SPECIFIC GRAVITY 1.009; UROBILINOGEN,URINE NEGATIVE mg/dL (<2.0)
[2018-08-30 20:10] LABS: ANION GAP 7 (5-19); BLOOD UREA NITROGEN 7 mg/dL (7-20); CALCIUM 9.2 mg/dL (8.4-10.2); CARBON DIOXIDE 26 mmol/L (22-30); CHLORIDE 107 mmol/L (98-107); GLUCOSE 105 mg/dL (75-110); POTASSIUM 4.8 mmol/L (3.6-5.0); SODIUM 140.4 mmol/L (137-145)
[2018-08-30 21:06] VITALS: BP 122/77
== END 2018-08-30 21:06 | disposition home or self-care (01) ==
LOC: ER 15:15
DX: D57.1 Sickle-cell disease without crisis (principal); M54.5 Low back pain; M25.562 Pain in left knee; R11.0 Nausea; I10 Essential (primary) hypertension; J45.909 Unspecified asthma, uncomplicated; Z88.1 Allergy status to other antibiotic agents; Z91.011 Allergy to milk products; Z91.013 Allergy to seafood; Z91.018 Allergy to other foods
CPT/HCPCS: 99284; 36415; 84703; 85025; 85045; 80048; 81001; J1170; J2405; J7030

== ENCOUNTER → 2018-09-01 | Outpatient (CLI) | payer MEDICAID ==
[~2018-09-01] MED LIST changes: +HYDROMORPHONE HCL INJ/PF 2 MG/ML AMPULE IV ONE; -HYDROMORPHONE HCL INJ/PF 2 MG/ML AMPULE IV PRN; +HYDROMORPHONE HCL INJ/PF 2 MG/ML AMPULE ONE; -PROMETHAZINE HCL INJ 25 MG/1 ML VIAL IV PRN
== END ==
LOC: ASU 13:13
PROVIDERS: ATTEND Internal Medicine
PROC: 3E033GC Introduction of Other Therapeutic Substance into Peripheral Vein, Percutaneous Approach (ICD-10-PCS; principal; 2018-09-01)
PROC: 3E0337Z Introduction of Electrolytic and Water Balance Substance into Peripheral Vein, Percutaneous Approach (ICD-10-PCS; 2018-09-01)
DX: D57.00 Hb-SS disease with crisis, unspecified (principal); E86.0 Dehydration; R11.0 Nausea; R52 Pain, unspecified
CPT/HCPCS: 96374; 96361; J1170

== ENCOUNTER 2018-09-02 15:35 | Emergency (ER) | payer MEDICAID ==
[2018-09-02] MEDS ORDERED: NORMAL SALINE 1000 ML 1,000 ML IV ONE ×2 (16:04→18:40)
[2018-09-02] MEDS ORDERED: FENTANYL CITRATE INJ/PF 100 MCG/2 ML AMPUL IV ONE (16:05)
--- NOTE | 2018-09-02 16:06 | ER Document Report ---
ED Medical Screen (RME) - General Chief Complaint: Sickle Cell Crisis Stated Complaint: POSSIBLE SICKLE CELL PAIN Time Seen by Provider: 09/02/18 16:02 Primary Care Provider: LINETTE GALVAN DO [Primary Care Provider] - Follow up as needed Notes: 28 years old female with sickle cell disease was sent over by Dr. Cornelius for sickle cell crisis. With pain syndrome. No fever chills or other constitutional symptoms. TRAVEL OUTSIDE OF THE [place] IN LAST 30 DAYS: No - Related Data Allergies/Adverse Reactions: ceftriaxone sodium [From Rocephin] Allergy (Verified 09/02/18 15:58) Cephalosporins Allergy (Verified 09/02/18 15:58) milk [Milk] Allergy (Verified 09/02/18 15:58) Shellfish * [Shellfish] Allergy (Verified 09/02/18 15:58) wheat [Wheat] Allergy (Verified 09/02/18 15:58) Past Medical History - Social History Family history: None - Past Medical History Cardiac Medical History: Reports: Hx Hypertension, Hx Heart Murmur Denies: Hx Coronary Artery Disease, Hx Heart Attack Pulmonary Medical History: Reports: Hx Asthma, Hx Pneumonia - 2016 Denies: Hx Bronchitis, Hx COPD, Hx Tuberculosis Neurological Medical History: Reports: Hx Migraine, Hx Seizures - HX OF. NO MEDI CATIONS. Denies: Hx Cerebrovascular Accident Endocrine Medical History: Denies: Hx Diabetes Mellitus Type 2, Hx Hyperthyroidism, Hx Hypothyroidism Renal/ Medical History: Denies: Hx Peritoneal Dialysis GI Medical History: Reports: Hx Gastroesophageal Reflux Disease Musculoskeltal Medical History: Denies Hx Arthritis, Denies Hx Fibromyalgia Skin Medical History: Reports Hx MRSA Psychiatric Medical History: Reports: Hx Depression - 2014 Past Surgical History: Reports: Hx Adenoidectomy, Hx Cholecystectomy, Hx Oral Surgery - growth removed from under tongue, Hx Tonsillectomy, Other - Port placement 2 and removal for infection, multiple PICC lines, central l. Denies: Hx Hysterectomy, Hx Kidney (Renal Surgery), Hx Pacemaker - Immunizations Hx Diphtheria, Pertussis, Tetanus Vaccination: Yes History of Influenza Vaccine for 04/2017 - 09/2017 Season: Yes Influenza Administration Date for 04/2017 - 09/2017 Season: 03/22/17 Physical Exam - Vital signs Vitals: Temp Pulse Resp BP Pulse Ox 98.5 F 102 H 16 129/54 H 95 09/02/18 15:41 09/02/18 15:41 09/02/18 15:41 09/02/18 15:41 09/02/18 15:41 Course - Vital Signs Vital signs: Temp Pulse Resp BP Pulse Ox 98.5 F 102 H 16 129/54 H 95 09/02/18 15:41 09/02/18 15:41 09/02/18 15:41 09/02/18 15:41 09/02/18 15:41 Doctor's Discharge - Discharge Referrals: LINETTE GALVAN, [Primary Care Provider] - Follow up as needed
[2018-09-02 17:06] LABS: ALANINE AMINOTRANSFERASE 20 U/L (9-52); ALBUMIN 4.9 g/dL (3.5-5.0); ALKALINE PHOSPHATASE 67 U/L (38-126); ANION GAP 5 (5-19); ASPARTATE AMINO TRANSFERASE 45 U/L (14-36); BILIRUBIN,DIRECT 0.4 mg/dL (0.0-0.4); BILIRUBIN,TOTAL 1.9 mg/dL (0.2-1.3); BLOOD UREA NITROGEN 6 mg/dL (7-20); CALCIUM 9.4 mg/dL (8.4-10.2); CARBON DIOXIDE 28 mmol/L (22-30); CHLORIDE 108 mmol/L (98-107); GLUCOSE 92 mg/dL (75-110); POTASSIUM 4.1 mmol/L (3.6-5.0); TOTAL PROTEIN 7.7 g/dL (6.3-8.2)
[2018-09-02] MEDS ORDERED: HYDROMORPHONE HCL INJ/PF 2 MG/ML AMPULE IV ONE ×3 (17:11→19:44)
[2018-09-02] MEDS ORDERED: KETOROLAC TROMETHAMINE INJ/PF 30 MG/1 ML SDV IV ONE (17:11)
--- NOTE | 2018-09-02 17:55 | RADIOLOGY REPORT (SQ) ---
EXAM DESCRIPTION: CHEST 2 VIEWS COMPLETED DATE/TIME: 09/02/2018 5:46 pm REASON FOR STUDY: ss dz pain all over COMPARISON: 05/28/2018 EXAM PARAMETERS: NUMBER OF VIEWS: two views TECHNIQUE: Digital Frontal and Lateral radiographic views of the chest acquired. RADIATION DOSE: NA LIMITATIONS: none FINDINGS: LUNGS AND PLEURA: No opacities, masses or pneumothorax. No pleural effusion. MEDIASTINUM AND HILAR STRUCTURES: No masses or contour abnormalities. HEART AND VASCULAR STRUCTURES: Heart normal size. No evidence for failure. BONES: No acute findings. HARDWARE: None in the chest. OTHER: No other significant finding. IMPRESSION: NO ACUTE RADIOGRAPHIC FINDING IN THE CHEST. TECHNICAL DOCUMENTATION: JOB ID: [id number] [employer]- All Rights Reserved Reading location - IP/workstation name: [email or web address]
[2018-09-02 18:34] LABS: HEMATOCRIT 21.7 % (36.0-47.0); MEAN CORPUSCULAR HEMOGLOBIN 33.2 pg (27.0-33.4); MEAN CORPUSCULAR HGB CONC 36.8 g/dL (32.0-36.0); MEAN CORPUSCULAR VOLUME 90 fl (80-97); PLATELET COUNT 490 10^3/uL (150-450); RED BLOOD COUNT 2.41 10^6/uL (3.72-5.28); RED CELL DISTRIBUTION WIDTH 26.4 % (11.5-14.0); WHITE BLOOD COUNT 10.6 10^3/uL (4.0-10.5)
[2018-09-02] MEDS ORDERED: OXYCODONE HCL IR 5 MG TABLET PO ONE (18:38)
[2018-09-02 18:46] LABS: ABSOLUTE RETICS # 0.299 10^6/uL (0.028-0.122); RETICULOCYTE COUNT (AUTO) 12.41 % (0.66-2.85)
[2018-09-02 18:54] LABS: ABSOLUTE NEUTROPHILS# (MANUAL) 5.6 10^3/uL (1.7-8.2); BASOPHILS % (MANUAL) 0 % (0-2); EOSINOPHILS % (MANUAL) 0 % (0-6); LYMPHOCYTES % (MANUAL) 38 % (13-45); MONOCYTES % (MANUAL) 9 % (3-13); NUCLEATED RED BLOOD CELLS 10 /100 WBC (0); SEGMENTED NEUTROPHILS % (MAN) 53 % (42-78); TOTAL CELLS COUNTED 100
[2018-09-02 18:57] LABS: ANISOCYTOSIS 3+; POLYCHROMASIA 2+; SICKLE RED CELLS 2+; TARGET CELLS SLIGHT
[2018-09-02 18:58] LABS: PLATELET COMMENT ADEQUATE
--- NOTE | 2018-09-02 19:47 | ER Document Report ---
ED General - General Chief Complaint: Sickle Cell Crisis Stated Complaint: POSSIBLE SICKLE CELL PAIN Time Seen by Provider: 09/02/18 16:02 Primary Care Provider: LINETTE GALVAN DO [Primary Care Provider] - Follow up as needed TRAVEL OUTSIDE OF THE [place] IN LAST 30 DAYS: No - HPI Patient complains to provider of: Sickle cell pain Notes: Patient coming in with a history of sickle cell disease patient states she is having diffuse body pain consistent with. Patient states she is seeing her rural health consultant yesterday received a bolus of fluid and IV pain medication states compliance with her oxycodone at home 15 mg every 4 hours however continues to have diffuse body pain. Upon my evaluation patient is resting comfortably on her cell phone. Patient looks to be in no obvious distress however states that she is in severe pain. Patient denies any fevers chills vomiting diarrhea. Patient states she is having nausea which is being controlled at home with Phenergan. Patient looks to be - Related Data Allergies/Adverse Reactions: ceftriaxone sodium [From Rocephin] Allergy (Verified 09/02/18 15:58) Cephalosporins Allergy (Verified 09/02/18 15:58) milk [Milk] Allergy (Verified 09/02/18 15:58) Shellfish * [Shellfish] Allergy (Verified 09/02/18 15:58) wheat [Wheat] Allergy (Verified 09/02/18 15:58) Past Medical History - Social History Smoking Status: Former Smoker Chew tobacco use (# tins/day): No Frequency of alcohol use: Occasional Drug Abuse: None Family History: DM, Malignancy - Brother with Hodgkin's lymphoma. Maternal grandfather with lung cancer., Other - sickle trait in Mother and Father Patient has suicidal ideation: No Patient has homicidal ideation: No - Past Medical History Cardiac Medical History: Reports: Hx Hypertension, Hx Heart Murmur Denies: Hx Coronary Artery Disease, Hx Heart Attack Pulmonary Medical History: Reports: Hx Asthma, Hx Pneumonia - 2017 Denies: Hx Bronchitis, Hx COPD, Hx Tuberculosis Neurological Medical History: Reports: Hx Migraine, Hx Seizures - HX OF. NO MEDICATIONS. Denies: Hx Cerebrovascular Accident Endocrine Medical History: Denies: Hx Diabetes Mellitus Type 2, Hx Hyperthyroidism, Hx Hypothyroidism Renal/ Medical History: Denies: Hx Peritoneal Dialysis GI Medical History: Reports: Hx Gastroesophageal Reflux Disease Musculoskeletal Medical History: Denies Hx Arthritis, Denies Hx Fibromyalgia Skin Medical History: Reports Hx MRSA Psychiatric Medical History: Reports: Hx Depression - 2015 Past Surgical History: Reports: Hx Adenoidectomy, Hx Cholecystectomy, Hx Oral Surgery - growth removed from under tongue, Hx Tonsillectomy, Other - Port placement 2 and removal for infection, multiple PICC lines, central l. Denies: Hx Hysterectomy, Hx Kidney (Renal Surgery), Hx Pacemaker - Immunizations Hx Diphtheria, Pertussis, Tetanus Vaccination: Yes Hx Pneumococcal Vaccination: 07/08/11 Review of Systems - Review of Systems Constitutional: Other - Body pain EENT: No symptoms reported Cardiovascular: No symptoms reported Respiratory: No symptoms reported Gastrointestinal: No symptoms reported Genitourinary: No symptoms reported Female Genitourinary: No symptoms reported Musculoskeletal: No symptoms reported Skin: No symptoms reported Hematologic/Lymphatic: No symptoms reported Neurological/Psychological: No symptoms reported Physical Exam - Vital signs Vitals: Temp Pulse Resp BP Pulse Ox 98.5 F 102 H 16 129/54 H 95 09/02/18 15:41 09/02/18 15:41 09/02/18 15:41 09/02/18 15:41 09/02/18 15:41 Interpretation: Normal - General General appearance: Appears well, Alert - HEENT Head: Normocephalic, Atraumatic Eyes: Normal Pupils: PERRL - Respiratory Respiratory status: No respiratory distress Chest status: Nontender Breath sounds: Normal Chest palpation: Normal - Cardiovascular Rhythm: Regular Heart sounds: Normal auscultation Murmur: No - Abdominal Inspection: Normal Distension: No distension Bowel sounds: Normal Tenderness: Nontender Organomegaly: No organomegaly - Back Back: Normal, Nontender - Extremities General upper extremity: Normal inspection, Nontender, Normal color, Normal ROM, Normal temperature General lower extremity: Normal inspection, Nontender, Normal color, Normal ROM, Normal temperature, Normal weight bearing. No: Charo's sign - Neurological Neuro grossly intact: Yes Cognition: Normal Orientation: AAOx4 Kelsey Coma Scale Eye Opening: Spontaneous Kelsey Coma Scale Verbal: Oriented Kelsey Coma Scale Motor: Obeys Commands Kelsey Coma Scale Total: 15 Speech: Normal Motor strength normal: LUE, RUE, LLE, RLE Sensory: Normal - Psychological Associated symptoms: Normal affect, Normal mood - Skin Skin Temperature: Warm Skin Moisture: Dry Skin Color: Normal Course - Re-evaluation Re-evalutation: 09/02/18 22:50 Laboratory results were discussed with the oncologist continuous pickling line pickler Dr. Khalil. Laboratory studies show elevation at 6 site count decrease in the patient's hemoglobin slight elevation in LDH. She agrees with no transfusion at this time to continue to manage patient's pain. Patient has received ketorolac fentanyl and 2 mg of Dilaudid. Patient states that she continues to be in pain however again is resting comfortably lying in the left lateral recumbent position no obvious distress on her phone. Splint patient at this time that I think she needs admission criteria patient was given her home dose of oxycodone and giving another dose of Dilaudid patient agrees with discharge. Patient states she will follow-up with her oncologist tomorrow. - Vital Signs Vital signs: Temp Pulse Resp BP Pulse Ox 98.2 F 80 16 117/78 100 09/02/18 18:46 09/02/18 20:38 09/02/18 20:38 09/02/18 20:38 09/02/18 20:38 - Laboratory Result Diagrams: 09/02/18 16:30 09/02/18 16:30 Laboratory results interpreted by me: 09/02/18 09/02/18 16:30 16:30 WBC 10.6 H RBC 2.41 L Hgb 8.0 L Hct 21.7 L MCHC 36.8 H RDW 26.4 H Plt Count 490 H Retic Count (auto) 12.41 H D Absolute Retic 0.299 H D Chloride 108 H BUN 6 L Total Bilirubin 1.9 H AST 45 H Lactate Dehydrogenase 570 H Discharge - Discharge Clinical Impression: Sickle cell anemia with pain Condition: Good Disposition: HOME, SELF-CARE Instructions: Sickle Cell Crisis ([facility]) Additional Instructions: I discussed your evaluation with the rural health consultant. At this time agrees do not need any blood transfusion. Recommend continuing your home pain management regiment. Please follow-up tomorrow with your rural health consultant. Return to the ER if symptoms worsen. Referrals: LINETTE GALVAN, [Primary Care Provider] - Follow up as needed
[2018-09-02 20:39] VITALS: BP 117/78
== END 2018-09-02 21:10 | disposition home or self-care (01) ==
LOC: ER 15:35
DX: D57.1 Sickle-cell disease without crisis (principal); R52 Pain, unspecified; R11.0 Nausea; I10 Essential (primary) hypertension; J45.909 Unspecified asthma, uncomplicated; Z88.1 Allergy status to other antibiotic agents; Z91.011 Allergy to milk products; Z91.013 Allergy to seafood; Z91.018 Allergy to other foods; Z87.891 Personal history of nicotine dependence
CPT/HCPCS: 96376; 99284; 96361; 96374; 96375; 36415; 83615; 83690; 85025; 85045; 80053; 71046; J3010; J1885; J1170; J7030; J3490

== ENCOUNTER 2018-09-03 14:59 | Inpatient (IN) | payer MEDICAID ==
[2018-09-03] MEDS ORDERED: NORMAL SALINE 1000 ML 1,000 ML IV ONE (16:40)
--- NOTE | 2018-09-03 16:44 | PDOC H&P ---
History of Present Illness Admission Date/PCP: 09/03/18 14:59 LINETTE GALVAN DO Patient complains of: generalized pains History of Present Illness: PRANAV JOINER is a 28 year old female with no significant past medical history aside from sickle cell disease diagnosed during childhood who was sent from Dr. Jung's clinic due to sickle cell crisis. Patient has been having generalized is body and joint pains since . She does say she has been having poor oral intake due to not feeling well overall. Dr. Khalil, patient has been managed at the outpatient oncology clinic but she has been having persistent pain mostly in the lower back. She was seen in the ER last night and was discharged and was seen in the oncology clinic again today. Denies fever or chills. She did have some nasal congestion. Past Medical History Cardiac Medical History: Reports: Hypertension, Heart Murmur Denies: Coronary Artery Disease, Myocardial Infarction Pulmonary Medical History: Reports: Asthma, Pneumonia - 2017 Denies: Bronchitis, Chronic Obstructive Pulmonary Disease (COPD), Tuberculosis Neurological Medical History: Reports: Migraine, Seizures - HX OF. NO MEDICATIO NS Endocrine Medical History: Denies: Diabetes Mellitus Type 2, Hyperthyroidism, Hypothyroidism GI Medical History: Reports: Gastroesophageal Reflux Disease Musculoskeltal Medical History: Denies: Arthritis, Fibromyalgia Psychiatric Medical History: Reports: Depression - 2015 Hematology: Reports: Anemia, Sickle Cell Disease Past Surgical History Past Surgical History: Reports: Adenoidectomy, Cholecystectomy, Tonsillectomy, Other - Port placement 2 and removal for infection, multiple PICC lines, central l Denies: Hysterectomy, Pacemaker Social History Smoking Status: Never Smoker Frequency of Alcohol Use: Occasional Hx Recreational Drug Use: - denied Drugs: Marijuana Hx Prescription Drug Abuse: No - denies Family History Family History: DM, Malignancy - Brother with Hodgkin's lymphoma. Maternal grandfather with lung cancer., Other - sickle trait in Mother and Father Parental Family History Reviewed: Yes - no premature CAD Children Family History Reviewed: No Sibling(s) Family History Reviewed.: No Medication/Allergy Home Medications: Amitriptyline HCl [Elavil 25 mg Tablet] 25 mg PO QAM 04/16/17 Amlodipine Besylate [Norvasc 5 mg Tablet] 5 mg PO DAILY 04/16/17 Cetirizine HCl [Zyrtec 10 mg Tablet] 10 mg PO QHS 04/16/17 Cyclobenzaprine HCl [Flexeril 5 mg Tablet] 5 mg PO Q12 04/16/17 Folic Acid [Folvite 1 mg Tablet] 1 mg PO DAILY 04/16/17 Hydroxyurea [Hydrea 500 mg Capsule] 1,500 mg PO SUTUTHSA@1000 04/16/17 Hydroxyurea [Hydrea 500 mg Capsule] 2,000 mg PO MOWEFR@1000 04/16/17 Oxycodone HCl 15 mg PO Q6HP PRN 04/16/17 Promethazine HCl [Phenergan 25 mg Tablet] 25 mg PO Q6HP PRN 04/16/17 Butalb/Acetaminophen/Caffeine [Djfpum-Ljxcjtxf-Qdrd 50-300-40] 1 cap PO Q4HP PRN 09/01/17 Amitriptyline HCl [Elavil 50 mg Tablet] 50 mg PO QHS 02/27/18 Ondansetron [Zofran Odt 4 mg Tablet] 1 tab PO Q4H PRN #15 tab.rapdis 06/11/18 Allergies/Adverse Reactions: ceftriaxone sodium [From Rocephin] Allergy (Verified 09/02/18 15:58) Cephalosporins Allergy (Verified 09/02/18 15:58) milk [Milk] Allergy (Verified 09/02/18 15:58) Shellfish * [Shellfish] Allergy (Verified 09/02/18 15:58) wheat [Wheat] Allergy (Verified 09/02/18 15:58) Review of Systems All systems: reviewed and no additional remarkable complaints except as stated Physical Exam General appearance: PRESENT: no acute distress, well-developed, well-nourished Head exam: PRESENT: atraumatic, normocephalic Eye exam: PRESENT: conjunctiva pink, EOMI, PERRLA. ABSENT: scleral icterus Ear exam: PRESENT: normal external ear exam Mouth exam: PRESENT: moist, tongue midline Neck exam: ABSENT: carotid bruit, JVD, lymphadenopathy, thyromegaly Respiratory exam: PRESENT: clear to auscultation william. ABSENT: rales, rhonchi, wheezes Cardiovascular exam: PRESENT: RRR. ABSENT: diastolic murmur, rubs, systolic murmur Pulses: PRESENT: normal dorsalis pedis pul GI/Abdominal exam: PRESENT: normal bowel sounds, soft. ABSENT: distended, guarding, mass, organolmegaly, rebound, tenderness Rectal exam: PRESENT: deferred Neurological exam: PRESENT: alert, awake, oriented to person, oriented to place, oriented to time, oriented to situation, CN II-XII grossly intact. ABSENT: motor sensory deficit Assessment & Plan - Diagnosis (1) Sickle cell pain crisis Is this a current diagnosis for this admission?: Yes Plan: She is on short acting oxycodone prn at home. Will have patient on long acting oxycodone. Will give dilaudid prn only for breakthrough pain. Give a liter of normal saline bolus then switch to NS at 200 cc/hr. - Time Time Spent: 30 to 50 Minutes
[2018-09-03 17:40] LABS: ABSOLUTE RETICS # 0.353 10^6/uL (0.028-0.122); HEMATOCRIT 20.4 % (36.0-47.0); MEAN CORPUSCULAR HEMOGLOBIN 33.3 pg (27.0-33.4); MEAN CORPUSCULAR HGB CONC 35.4 g/dL (32.0-36.0); PLATELET COUNT 446 10^3/uL (150-450); RED BLOOD COUNT 2.17 10^6/uL (3.72-5.28); RED CELL DISTRIBUTION WIDTH 28.6 % (11.5-14.0); RETICULOCYTE COUNT (AUTO) 16.25 % (0.66-2.85)
[2018-09-03] MEDS: OXYCODONE HCL SR 10 MG TABLET PO SCH (17:50)
[2018-09-03 17:59] LABS: ALANINE AMINOTRANSFERASE 19 U/L (9-52); ALBUMIN 4.3 g/dL (3.5-5.0); ALKALINE PHOSPHATASE 65 U/L (38-126); ANION GAP 8 (5-19); ASPARTATE AMINO TRANSFERASE 33 U/L (14-36); BILIRUBIN,DIRECT 0.3 mg/dL (0.0-0.4); BILIRUBIN,TOTAL 1.7 mg/dL (0.2-1.3); BLOOD UREA NITROGEN 5 mg/dL (7-20); CALCIUM 9.2 mg/dL (8.4-10.2); CARBON DIOXIDE 23 mmol/L (22-30); CHLORIDE 109 mmol/L (98-107); GLUCOSE 82 mg/dL (75-110); POTASSIUM 4.4 mmol/L (3.6-5.0); SODIUM 140.3 mmol/L (137-145); TOTAL PROTEIN 6.8 g/dL (6.3-8.2)
[2018-09-03 18:18] LABS: MEAN CORPUSCULAR VOLUME 94 fl (80-97)
[2018-09-03 18:20] LABS: HEMOGLOBIN 7.2 g/dL (12.0-15.5)
[2018-09-03 18:23] LABS: ABSOLUTE MONOCYTES # (MANUAL) 0.6 10^3/uL (0.1-1.4); ABSOLUTE NEUTROPHILS# (MANUAL) 6.3 10^3/uL (1.7-8.2); BASOPHILS % (MANUAL) 0 % (0-2); EOSINOPHILS % (MANUAL) 1 % (0-6); LYMPHOCYTES % (MANUAL) 30 % (13-45); MONOCYTES % (MANUAL) 6 % (3-13); NUCLEATED RED BLOOD CELLS 5 /100 WBC (0); SEGMENTED NEUTROPHILS % (MAN) 63 % (42-78); TOTAL CELLS COUNTED 100
[2018-09-03 18:25] LABS: ANISOCYTOSIS 4+; PLATELET COMMENT ADEQUATE; POLYCHROMASIA 1+; SICKLE RED CELLS 2+; TARGET CELLS 2+
[2018-09-03] MEDS: HYDROMORPHONE HCL INJ/PF 2 MG/ML AMPULE IV PRN ×2 (18:56→23:22)
[2018-09-03] MEDS: ONDANSETRON HCL INJ/PF 4 MG/2 ML SDV IV PRN (22:04)
[2018-09-03] MEDS: ACETAMINOPHEN 325 MG TABLET PO PRN (22:04)
[2018-09-03] MEDS: NORMAL SALINE 1000 ML 1,000 ML IV PRN (22:07)
[2018-09-04] MEDS: ONDANSETRON HCL INJ/PF 4 MG/2 ML SDV IV PRN ×3 (03:30→21:22)
[2018-09-04] MEDS: HYDROMORPHONE HCL INJ/PF 2 MG/ML AMPULE IV PRN ×8 (03:30→23:50)
[2018-09-04] MEDS: OXYCODONE HCL SR 10 MG TABLET PO SCH ×2 (05:15→17:19)
[2018-09-04] MEDS: NORMAL SALINE 1000 ML 1,000 ML IV PRN ×3 (05:18→21:30)
[2018-09-04 05:23] LABS: HEMATOCRIT 18.8 % (36.0-47.0); MEAN CORPUSCULAR HEMOGLOBIN 34.5 pg (27.0-33.4); MEAN CORPUSCULAR HGB CONC 36.7 g/dL (32.0-36.0); MEAN CORPUSCULAR VOLUME 94 fl (80-97); PLATELET COUNT 393 10^3/uL (150-450); RED CELL DISTRIBUTION WIDTH 27.9 % (11.5-14.0); WHITE BLOOD COUNT 8.6 10^3/uL (4.0-10.5)
[2018-09-04] MEDS ORDERED: NORMAL SALINE 250 ML IV PRN ×2 (07:42)
--- NOTE | 2018-09-04 08:47 | PDOC CONSULTATION ---
Consultation Consult Date: 09/04/18 Consult reason:: Hematology/Oncology consultation was requested for patient with sickle cell pain crisis. History of Present Illness Admission Date/PCP: 09/03/18 14:59 LINETTE GALVAN DO History of Present Illness: PRANAV JOINER is a 28 year old female with frequent admissions for sickle cell anemia pain crisis. Patient states she has been in her usualy state of health until 2 days ago when her pain suddenly increased. She was evalauted in the ED, but sent home, only to return to the office within 24 hours still in severe pain. She was admitted yesterday afternoon for further pain control. She states that the dilaudid has not been given frequently enough. She is seen today with Dr. Gutierrez. Nurses report that she slept well last night, and did not complain of uncontrollable pain until this morning. Past Medical History Cardiac Medical History: Reports: Hypertension, Heart Murmur Denies: Coronary Artery Disease, Myocardial Infarction Pulmonary Medical History: Reports: Asthma, Pneumonia - 2017 Denies: Bronchitis, Chronic Obstructive Pulmonary Disease (COPD), Tuberculosis Neurological Medical History: Reports: Migraine, Seizures - HX OF. NO MEDICATIONS Endocrine Medical History: Denies: Diabetes Mellitus Type 2, Hyperthyroidism, Hypothyroidism GI Medical History: Reports: Gastroesophageal Reflux Disease Musculoskeltal Medical History: Denies: Arthritis, Fibromyalgia Psychiatric Medical History: Reports: Depression - 2014 Hematology: Reports: Anemia, Sickle Cell Disease, Other - DVT 2017 Past Surgical History Past Surgical History: Reports: Adenoidectomy, Cholecystectomy, Tonsillectomy, Other - Port placement 2 and removal for infection, multiple PICC lines, central l Denies: Hysterectomy, Pacemaker Social History Information Source: Patient Lives with: Family Smoking Status: Never Smoker Frequency of Alcohol Use: Occasional Hx Recreational Drug Use: - denied Drugs: Marijuana Hx Prescription Drug Abuse: No - denies Family History Family History: DM, Malignancy - Brother with Hodgkin's lymphoma. Maternal grandfather with lung cancer., Other - sickle trait in Mother and Father Parental Family History Reviewed: Yes Children Family History Reviewed: NA Sibling(s) Family History Reviewed.: Yes Medication/Allergy Home Medications: Amitriptyline HCl [Elavil 25 mg Tablet] 25 mg PO QAM 04/16/17 Amlodipine Besylate [Norvasc 5 mg Tablet] 5 mg PO DAILY 04/16/17 Cetirizine HCl [Zyrtec 10 mg Tablet] 10 mg PO QHS 04/16/17 Cyclobenzaprine HCl [Flexeril 5 mg Tablet] 5 mg PO Q12 04/16/17 Folic Acid [Folvite 1 mg Tablet] 1 mg PO DAILY 04/16/17 Hydroxyurea [Hydrea 500 mg Capsule] 1,500 mg PO SUTUTHSA@1000 04/16/17 Hydroxyurea [Hydrea 500 mg Capsule] 2,000 mg PO MOWEFR@1000 04/16/17 Oxycodone HCl 15 mg PO Q6HP PRN 04/16/17 Promethazine HCl [Phenergan 25 mg Tablet] 25 mg PO Q6HP PRN 04/16/17 Butalb/Acetaminophen/Caffeine [Xgwldt-Jytadzfj-Ezfs 50-300-40] 1 cap PO Q4HP PRN 09/01/17 Amitriptyline HCl [Elavil 50 mg Tablet] 50 mg PO QHS 02/27/18 Allergies/Adverse Reactions: ceftriaxone sodium [From Rocephin] Allergy (Verified 09/02/18 15:58) Cephalosporins Allergy (Verified 09/02/18 15:58) milk [Milk] Allergy (Verified 09/02/18 15:58) Shellfish * [Shellfish] Allergy (Verified 09/02/18 15:58) wheat [Wheat] Allergy (Verified 09/02/18 15:58) Review of Systems Constitutional: ABSENT: fever(s), headache(s) Eyes: ABSENT: visual disturbances Ears: ABSENT: hearing changes Nose, Mouth, and Throat: ABSENT: sore throat Cardiovascular: PRESENT: chest pain Respiratory: PRESENT: dyspnea Gastrointestinal: PRESENT: abdominal pain Genitourinary: ABSENT: dysuria Musculoskeletal: PRESENT: back pain Integumentary: ABSENT: rash Psychiatric: PRESENT: depression Hematologic/Lymphatic: ABSENT: easy bruising Physical Exam Vital Signs: Temp Pulse Resp BP Pulse Ox 97.9 F 74 17 114/61 97 09/03/18 23:17 09/03/18 23:17 09/03/18 23:17 09/03/18 23:17 09/03/18 23:17 Intake & Output 09/03/18 09/04/18 09/05/18 06:59 06:59 06:59 Intake Total 2517 Balance 2517 Weight 62.3 kg General appearance: PRESENT: well-developed, well-nourished Exam: 28 year old female crying. Head exam: PRESENT: atraumatic, normocephalic Eye exam: PRESENT: EOMI, PERRLA Respiratory exam: PRESENT: clear to auscultation william, unlabored Cardiovascular exam: PRESENT: RRR GI/Abdominal exam: PRESENT: soft. ABSENT: tenderness Extremities exam: ABSENT: pedal edema Musculoskeletal exam: PRESENT: normal inspection Neurological exam: PRESENT: alert, awake Psychiatric exam: PRESENT: depressed Focused psych exam: ABSENT: psychomotor agitation Skin exam: PRESENT: normal color Results Laboratory Results: 09/04/18 04:13 09/03/18 16:59 09/03/18 09/03/18 09/04/18 16:59 16:59 04:13 WBC 10.0 8.6 RBC 2.17 L 2.00 L Hgb 7.2 L 6.9 L Hct 20.4 L 18.8 L MCV 94 D 94 MCH 33.3 34.5 H MCHC 35.4 36.7 H RDW 28.6 H 27.9 H Plt Count 446 393 Seg Neutrophils % Not Reportable Lymphocytes % Not Reportable Monocytes % Not Reportable Eosinophils % Not Reportable Basophils % Not Reportable Absolute Neutrophils Not Reportable Absolute Lymphocytes Not Reportable Absolute Monocytes Not Reportable Absolute Eosinophils Not Reportable Absolute Basophils Not Reportable Retic Count (auto) 16.25 H Absolute Retic 0.353 H Sodium 140.3 Potassium 4.4 Chloride 109 H Carbon Dioxide 23 Anion Gap 8 BUN 5 L Creatinine 0.53 Est GFR ( Amer) > 60 Est GFR (Non-Af Amer) > 60 Glucose 82 Calcium 9.2 Total Bilirubin 1.7 H AST 33 ALT 19 Alkaline Phosphatase 65 Total Protein 6.8 Albumin 4.3 Status: Image reviewed by me Assessment & Plan - Diagnosis (1) Homozygous sickle cell (SS) disease Is this a current diagnosis for this admission?: Yes Plan: She is on IV fluids. IV access has been difficult, Dr. Gutierrez will try to arrange PICC line. She has been placed on Oxygen 2 L NC. This should continue. (2) Sickle cell pain crisis Is this a current diagnosis for this admission?: Yes Plan: She has been given IV dilaudid and started on long-acting pain medications as well. These doses will be increased today. Will monitor closely. - Plan Summary Plan Summary: Patient seen and discussed with Dr. Gutierrez. Please call me with concerns.
[2018-09-04 09:58] LABS: HEMATOCRIT 21.1 % (36.0-47.0); MEAN CORPUSCULAR HEMOGLOBIN 33.3 pg (27.0-33.4); MEAN CORPUSCULAR HGB CONC 35.5 g/dL (32.0-36.0); MEAN CORPUSCULAR VOLUME 94 fl (80-97); PLATELET COUNT 442 10^3/uL (150-450); RED BLOOD COUNT 2.25 10^6/uL (3.72-5.28); RED CELL DISTRIBUTION WIDTH 27.1 % (11.5-14.0); WHITE BLOOD COUNT 9.8 10^3/uL (4.0-10.5)
--- NOTE | 2018-09-04 10:13 | PDOC PROGRESS REPORT ---
Subjective Progress Note for:: 09/04/18 Subjective:: This is a 28 year old female with no significant past medical history aside from sickle cell disease diagnosed during childhood who was sent from Dr. Khalil's clinic due to sickle cell crisis. Patient has been having generalized is body and joint pains since . She does say she has been having poor oral intake due to not feeling well overall. She was admitted for sickle cell crisis. 09/04: Per staff, she had breakthrough pain overnight and required dilaudid but slept most of the night. This morning, she is crying and is angry that we are not controlling her pain well. She says she only slept for 10 minutes last night. Explained will increase her oxycontin today. Oncology is recommending to increase her dilaudid from 1 mg q4h to q2h. Her hemoglobin trended down to 6.9. Ordered a unit of pRBC. Will also order a PICC line due to her very poor IV ac cess. Explained plan of care to patient including plan to increase her pain regimen and is she has further questions and she responded to this provider with "whatever". Reason For Visit: SICKLE CELL CRISIS Physical Exam Vital Signs: Temp Pulse Resp BP Pulse Ox 97.9 F 74 17 114/61 97 09/03/18 23:17 09/03/18 23:17 09/03/18 23:17 09/03/18 23:17 09/03/18 23:17 Intake & Output 09/03/18 09/04/18 09/05/18 06:59 06:59 06:59 Intake Total 2517 Balance 2517 Weight 137 lb 5.568 oz General appearance: PRESENT: mild distress Head exam: PRESENT: atraumatic, normocephalic Eye exam: PRESENT: conjunctiva pink, EOMI, PERRLA. ABSENT: scleral icterus Ear exam: PRESENT: normal external ear exam Mouth exam: PRESENT: moist, tongue midline Neck exam: ABSENT: carotid bruit, JVD, lymphadenopathy, thyromegaly Respiratory exam: PRESENT: clear to auscultation william. ABSENT: rales, rhonchi, wheezes Cardiovascular exam: PRESENT: RRR. ABSENT: diastolic murmur, rubs, systolic murmur Pulses: PRESENT: normal dorsalis pedis pul GI/Abdominal exam: PRESENT: normal bowel sounds, soft. ABSENT: distended, guarding, mass, organolmegaly, rebound, tenderness Rectal exam: PRESENT: deferred Neurological exam: PRESENT: alert, awake, oriented to person, oriented to place, oriented to time, oriented to situation, CN II-XII grossly intact. ABSENT: motor sensory deficit Results Laboratory Results: 09/03/18 16:59 09/03/18 09/03/18 09/04/18 16:59 16:59 04:13 WBC 10.0 8.6 RBC 2.17 L 2.00 L Hgb 7.2 L 6.9 L Hct 20.4 L 18.8 L MCV 94 D 94 MCH 33.3 34.5 H MCHC 35.4 36.7 H RDW 28.6 H 27.9 H Plt Count 446 393 Seg Neutrophils % Not Reportable Lymphocytes % Not Reportable Monocytes % Not Reportable Eosinophils % Not Reportable Basophils % Not Reportable Absolute Neutrophils Not Reportable Absolute Lymphocytes Not Reportable Absolute Monocytes Not Reportable Absolute Eosinophils Not Reportable Absolute Basophils Not Reportable Retic Count (auto) 16.25 H Absolute Retic 0.353 H Sodium 140.3 Potassium 4.4 Chloride 109 H Carbon Dioxide 23 Anion Gap 8 BUN 5 L Creatinine 0.53 Est GFR ( Amer) > 60 Est GFR (Non-Af Amer) > 60 Glucose 82 Calcium 9.2 Total Bilirubin 1.7 H AST 33 ALT 19 Alkaline Phosphatase 65 Total Protein 6.8 Albumin 4.3 Blood Type Antibody Screen 09/04/18 09/04/18 08:23 08:23 WBC RBC Hgb Hct MCV MCH MCHC RDW Plt Count Seg Neutrophils % Not Reportable Lymphocytes % Not Reportable Monocytes % Not Reportable Eosinophils % Not Reportable Basophils % Not Reportable Absolute Neutrophils Not Reportable Absolute Lymphocytes Not Reportable Absolute Monocytes Not Reportable Absolute Eosinophils Not Reportable Absolute Basophils Not Reportable Retic Count (auto) Absolute Retic Sodium Potassium Chloride Carbon Dioxide Anion Gap BUN Creatinine Est GFR ( Amer) Est GFR (Non-Af Amer) Glucose Calcium Total Bilirubin AST ALT Alkaline Phosphatase Total Protein Albumin Blood Type O POSITIVE Antibody Screen NEGATIVE Assessment & Plan - Diagnosis (1) Sickle cell pain crisis Is this a current diagnosis for this admission?: Yes Plan: 09/03: She is on short acting oxycodone prn at home. Will have patient on long acting oxycodone. Will give dilaudid prn only for breakthrough pain. Give a liter of normal saline bolus then switch to NS at 200 cc/hr. 09/04: Will increase her oxycontin SR today from 10 to 20 mg bid. Oncology is recommending to increase her dilaudid from 1 mg q4h to q2h. Her hemoglobin trended down to 6.9. Ordered a unit of pRBC. Will also order a PICC line due to her very poor IV access. Keep on continuous O2. (2) Acute on chronic anemia Is this a current diagnosis for this admission?: Yes Plan: Secondary to acute sickle crisis. She will be transfused a unit of pRBC. - Time Time Spent with patient: 35 or more minutes
[2018-09-04 10:39] LABS: HEMOGLOBIN 7.5 g/dL (12.0-15.5)
[2018-09-04 10:41] LABS: ABSOLUTE LYMPHOCYTES# (MANUAL) 5.5 10^3/uL (0.5-4.7); ABSOLUTE MONOCYTES # (MANUAL) 0.8 10^3/uL (0.1-1.4); ABSOLUTE NEUTROPHILS# (MANUAL) 3.3 10^3/uL (1.7-8.2); ANISOCYTOSIS 4+; BASOPHILS % (MANUAL) 0 % (0-2); EOSINOPHILS % (MANUAL) 2 % (0-6); LYMPHOCYTES % (MANUAL) 54 % (13-45); MONOCYTES % (MANUAL) 8 % (3-13); NUCLEATED RED BLOOD CELLS 22 /100 WBC (0); PAPPENHEIMER BODIES PRESENT; PLATELET COMMENT ADEQUATE; POIKILOCYTOSIS 2+; POLYCHROMASIA 1+; SEGMENTED NEUTROPHILS % (MAN) 34 % (42-78); SICKLE RED CELLS 2+; TARGET CELLS SLIGHT; TOTAL CELLS COUNTED 100
--- NOTE | 2018-09-04 12:40 | RADIOLOGY REPORT (SQ) ---
EXAM DESCRIPTION: PICC INSERTION; U/S GUIDE FOR VASCULAR ACCESS; FLUORO/CV PLACEMENT COMPLETED DATE/TIME: 09/04/2018 12:17 pm; 09/04/2018 12:18 pm REASON FOR STUDY: sickle cell crisis, poor iv access; IV ACCESS COMPARISON: None. FLUOROSCOPY TIME: 16 seconds 1 ultrasound and 1 digital fluoroscopic images saved to PACS. TECHNIQUE: Fluoroscopic and ultrasound guided PICC placement. LIMITATIONS: None. PROCEDURE: After written consent and assessment were obtained, the patient was brought into the fluo roscopy room and placed supine on the table. Ultrasound evaluation of potential access sites were per formed. After successfully identifying a patent left basilic vein, the left arm was prepped and drape d in a sterile fashion along with the ultrasound probe. The entry site was anesthetized with 1% lidoc petra. A 21 gauge 7 cm needle was advanced through the skin and into the basilic vein under live ultra sound guidance. An ultrasound image was saved to PACS confirming access site. A .018 guide wire was then inserted through the needle and into the venous system. The needle was then removed and an 11 b lade scalpel was used to make a 1cm skin incision. A 5 fr peel-away sheath was advanced over the wir e and into the venous system. A measurement was then made using the existing wire and live fluoroscop ic guidance. The wire was then removed and trimmed. The PICC was advanced through the peel-away sheat h and into the venous system. The peel-away sheath was removed and the catheter was adhered to the pa tients arm with a stat lock. The catheter was then aspirated and flushed and a sterile bandage was pl aced over the access site. A fluoroscopic spot image was saved to PACS confirming the catheter tip w ithin the superior vena cava. IMPRESSION: SUCCESSFUL PLACEMENT OF A 5 FR DUAL LUMEN 38 CM PICC IN THE LEFT BASILIC VEIN. COMMENT: Patient medication list reviewed: Yes- Quality ID# 130:Eligible professional attests to doc umenting in the medical record they obtained, updated, or reviewed the patient's current medications. . Quality ID 145: Final reports for procedures using fluoroscopy that document radiation exposure rebecca angy, or exposure time and number of fluorographic images (if radiation exposure indices are not avail able) Quality ID #76: The patient was prepped and draped using maximum sterile barrier technique including cap, mask, sterile gown, sterile gloves, a large sterile sheet, hand hygiene, and 2% Chlorhexidine fo r cutaneous antisepsis. When ultrasound is used, sterile ultrasound techniques are followed requiring sterile gel and sterile probes. TECHNICAL DOCUMENTATION: JOB ID: [id number] [employer]- All Rights Reserved rev-11/22 Reading location - IP[facility]workstation name: [email or web address]
[2018-09-04] MEDS ORDERED: NORMAL SALINE 10 ML SDV (AFTER EACH USE) IV PRN (13:30)
[2018-09-04] MEDS ORDERED: ZOLPIDEM TARTRATE 5 MG TABLET PO PRN (17:51)
[2018-09-04] MEDS: AMITRIPTYLINE HCL 50 MG TABLET PO SCH (21:22)
[2018-09-04] MEDS: NORMAL SALINE 10 ML SDV (SCHEDULED) IV SCH (21:30)
[2018-09-05] MEDS: NORMAL SALINE 1000 ML 1,000 ML IV PRN ×5 (04:57→20:46)
[2018-09-05] MEDS: HYDROMORPHONE HCL INJ/PF 2 MG/ML AMPULE IV PRN ×8 (04:57→23:09)
[2018-09-05] MEDS: ONDANSETRON HCL INJ/PF 4 MG/2 ML SDV IV PRN ×4 (04:57→20:45)
[2018-09-05] MEDS: OXYCODONE HCL SR 10 MG TABLET PO SCH ×2 (05:01→17:56)
[2018-09-05] MEDS: AMITRIPTYLINE HCL 25 MG TABLET PO SCH (08:36)
--- NOTE | 2018-09-05 08:41 | PDOC PROGRESS REPORT ---
Subjective Progress Note for:: 09/05/18 Subjective:: Patient states she is still having pain. She did not receive the heating pad until very early this morning. This is helping. She still requests increase in her IV dilaudid and adding IV benadryl. ROS: No constipation. Some nausea, relieved with zofran. No dyspnea. Reason For Visit: SICKLE CELL CRISIS Physical Exam Vital Signs: Temp Pulse Resp BP Pulse Ox 98.3 F 81 16 127/85 H 98 09/04/18 23:00 09/04/18 23:00 09/04/18 23:00 09/04/18 23:00 09/04/18 23:00 Intake & Output 09/04/18 09/05/18 09/06/18 06:59 06:59 06:59 Intake Total 2517 3537 Balance 2517 3537 Weight 62.3 kg 62.9 kg General appearance: PRESENT: well-developed, well-nourished Head exam: PRESENT: normocephalic Respiratory exam: PRESENT: clear to auscultation william, unlabored Cardiovascular exam: PRESENT: RRR Extremities exam: ABSENT: pedal edema Neurological exam: PRESENT: alert, awake, oriented to person, oriented to place, oriented to time, oriented to situation Psychiatric exam: PRESENT: appropriate affect Skin exam: PRESENT: normal color Results Laboratory Results: 09/04/18 08:23 09/03/18 16:59 09/04/18 09/04/18 08:23 08:23 WBC 9.8 RBC 2.25 L Hgb 7.5 L Hct 21.1 L MCV 94 MCH 33.3 MCHC 35.5 RDW 27.1 H Plt Count 442 Seg Neutrophils % Not Reportable Lymphocytes % Not Reportable Monocytes % Not Reportable Eosinophils % Not Reportable Basophils % Not Reportable Absolute Neutrophils Not Reportable Absolute Lymphocytes Not Reportable Absolute Monocytes Not Reportable Absolute Eosinophils Not Reportable Absolute Basophils Not Reportable Blood Type O POSITIVE Antibody Screen NEGATIVE Impressions: Guidance Fluoroscopy 09/04/18 00:00 IMPRESSION: SUCCESSFUL PLACEMENT OF A 5 FR DUAL LUMEN 38 CM PICC IN THE LEFT BASILIC VEIN. Interventional Vascular Procedure 09/04/18 00:00 IMPRESSION: SUCCESSFUL PLACEMENT OF A 5 FR DUAL LUMEN 38 CM PICC IN THE LEFT BASILIC VEIN. PICC Line Insertion 09/04/18 00:00 IMPRESSION: SUCCESSFUL PLACEMENT OF A 5 FR DUAL LUMEN 38 CM PICC IN THE LEFT BASILIC VEIN. Assessment & Plan - Diagnosis (1) Homozygous sickle cell (SS) disease Is this a current diagnosis for this admission?: Yes Plan: Continue Oxygen, IV fluids. PICC line has been placed (2) Sickle cell pain crisis Is this a current diagnosis for this admission?: Yes Plan: Will continue current pain meds, but I will add benadryl PRN - Plan Summary Plan Summary: Encouraged patient to eat and drink.
[2018-09-05] MEDS: FOLIC ACID 1 MG TABLET PO SCH (10:11)
[2018-09-05] MEDS: HYDROXYUREA 500 MG CAPSULE PO SCH (10:12)
[2018-09-05] MEDS: NORMAL SALINE 10 ML SDV (SCHEDULED) IV SCH ×2 (10:13→23:28)
[2018-09-05] MEDS: ACETAMINOPHEN 325 MG TABLET PO PRN (10:16)
[2018-09-05] MEDS ORDERED: SENNOSIDES/DOCUSATE 8.6-50 MG 1 EACH TABLET PO PRN (10:20)
[2018-09-05] MEDS: DIPHENHYDRAMINE HCL 50 MG/ML VIAL IV PRN ×3 (10:32→20:45)
[2018-09-05 10:38] LABS: A TYPE INFLUENZA AG NEGATIVE (NEGATIVE); B INFLUENZA AG NEGATIVE (NEGATIVE)
[2018-09-05 11:13] LABS: HEMOGLOBIN 6.9 g/dL (12.0-15.5)
[2018-09-05 11:17] LABS: ABSOLUTE RETICS # 0.229 10^6/uL (0.028-0.122); HEMATOCRIT 21.8 % (36.0-47.0); MEAN CORPUSCULAR HEMOGLOBIN 31.7 pg (27.0-33.4); MEAN CORPUSCULAR HGB CONC 35.8 g/dL (32.0-36.0); PLATELET COUNT 390 10^3/uL (150-450); RED BLOOD COUNT 2.46 10^6/uL (3.72-5.28); RED CELL DISTRIBUTION WIDTH 27.5 % (11.5-14.0); RETICULOCYTE COUNT (AUTO) 9.33 % (0.66-2.85); WHITE BLOOD COUNT 7.7 10^3/uL (4.0-10.5)
[2018-09-05 11:35] LABS: ALANINE AMINOTRANSFERASE 19 U/L (9-52); ALBUMIN 3.7 g/dL (3.5-5.0); ALKALINE PHOSPHATASE 61 U/L (38-126); ANION GAP 5 (5-19); ASPARTATE AMINO TRANSFERASE 30 U/L (14-36); BILIRUBIN,DIRECT 0.2 mg/dL (0.0-0.4); BILIRUBIN,TOTAL 1.5 mg/dL (0.2-1.3); BLOOD UREA NITROGEN 4 mg/dL (7-20); CALCIUM 8.4 mg/dL (8.4-10.2); CARBON DIOXIDE 26 mmol/L (22-30); CHLORIDE 111 mmol/L (98-107); GLUCOSE 90 mg/dL (75-110); SODIUM 142.1 mmol/L (137-145); TOTAL PROTEIN 6.1 g/dL (6.3-8.2)
[2018-09-05 12:02] LABS: HEMOGLOBIN 7.8 g/dL (12.0-15.5)
[2018-09-05 12:03] LABS: MEAN CORPUSCULAR VOLUME 89 fl (80-97)
[2018-09-05 12:06] LABS: ABSOLUTE LYMPHOCYTES# (MANUAL) 3.5 10^3/uL (0.5-4.7); ABSOLUTE MONOCYTES # (MANUAL) 0.4 10^3/uL (0.1-1.4); ABSOLUTE NEUTROPHILS# (MANUAL) 3.7 10^3/uL (1.7-8.2); BASOPHILS % (MANUAL) 1 % (0-2); EOSINOPHILS % (MANUAL) 0 % (0-6); LYMPHOCYTES % (MANUAL) 46 % (13-45); MONOCYTES % (MANUAL) 5 % (3-13); NUCLEATED RED BLOOD CELLS 22 /100 WBC (0); SEGMENTED NEUTROPHILS % (MAN) 48 % (42-78); TOTAL CELLS COUNTED 100
[2018-09-05 12:13] LABS: ANISOCYTOSIS 3+; HOWELL-JOLLY BODIES PRESENT; PAPPENHEIMER BODIES PRESENT; PLATELET COMMENT ADEQUATE; POIKILOCYTOSIS 1+; POLYCHROMASIA 1+; SICKLE RED CELLS 1+; TARGET CELLS SLIGHT
--- NOTE | 2018-09-05 14:39 | PDOC PROGRESS REPORT ---
Subjective Progress Note for:: 09/05/18 Subjective:: This is a 28 year old female with no significant past medical history aside from sickle cell disease diagnosed during childhood who was sent from Dr. Khalil's clinic due to sickle cell crisis. Patient has been having generalized is body and joint pains since . She does say she has been having poor oral intake due to not feeling well overall. She was admitted for sickle cell crisis. 09/04: Per staff, she had breakthrough pain overnight and required dilaudid but slept most of the night. This morning, she is crying and is angry that we are not controlling her pain well. She says she only slept for 10 minutes last night. Explained will increase her oxycontin today. Oncology is recommending to increase her dilaudid from 1 mg q4h to q2h. Her hemoglobin trended down to 6.9. Ordered a unit of pRBC. Will also order a PICC line due to her very poor IV ac cess. Explained plan of care to patient including plan to increase her pain regimen and if she has further questions and she responded to this provider with "whatever". 09/05: No acute event overnight. Per nursing staff report, she had slept last night but did wake up in between naps and complained of pain. Per RN, early this morning, patient was comfortably asleep with her mouth open when she did her initial assessment. Upon encounter, she says she slept for 30 mins last night. She says her pain is worse today and she is miserable. She tells me she wants a different provider as she is not satisfied with the medical care I am providing. I advised her to bring this up with the patient advocate and that I will discuss this case with the medical team as well. Her labs came back and shows improvement of her hemoglobin, trending down of her reticulocyte count, bilirubin and LDH levels. Reason For Visit: SICKLE CELL CRISIS Physical Exam Vital Signs: Temp Pulse Resp BP Pulse Ox 98.3 F 81 16 127/85 H 98 09/04/18 23:00 09/04/18 23:00 09/04/18 23:00 09/04/18 23:00 09/04/18 23:00 Intake & Output 09/04/18 09/05/18 09/06/18 06:59 06:59 06:59 Intake Total 2517 3537 1000 Balance 2517 3538 1000 Weight 137 lb 5.568 oz 138 lb 10.732 oz General appearance: PRESENT: no acute distress, well-developed, well-nourished Head exam: PRESENT: atraumatic, normocephalic Eye exam: PRESENT: conjunctiva pink, EOMI, PERRLA. ABSENT: scleral icterus Ear exam: PRESENT: normal external ear exam Mouth exam: PRESENT: moist, tongue midline Neck exam: ABSENT: carotid bruit, JVD, lymphadenopathy, thyromegaly Respiratory exam: PRESENT: clear to auscultation william. ABSENT: rales, rhonchi, wheezes Cardiovascular exam: PRESENT: RRR. ABSENT: diastolic murmur, rubs, systolic murmur Pulses: PRESENT: normal dorsalis pedis pul GI/Abdominal exam: PRESENT: normal bowel sounds, soft. ABSENT: distended, guarding, mass, organolmegaly, rebound, tenderness Rectal exam: PRESENT: deferred Neurological exam: PRESENT: alert, awake, oriented to person, oriented to place, oriented to time, oriented to situation, CN II-XII grossly intact. ABSENT: motor sensory deficit Results Laboratory Results: 09/04/18 09/04/18 04:13 08:23 Hgb 6.9 L Blood Type O POSITIVE Antibody Screen NEGATIVE Impressions: Guidance Fluoroscopy 09/04/18 00:00 IMPRESSION: SUCCESSFUL PLACEMENT OF A 5 FR DUAL LUMEN 38 CM PICC IN THE LEFT BASILIC VEIN. Interventional Vascular Procedure 09/04/18 00:00 IMPRESSION: SUCCESSFUL PLACEMENT OF A 5 FR DUAL LUMEN 38 CM PICC IN THE LEFT BASILIC VEIN. PICC Line Insertion 09/04/18 00:00 IMPRESSION: SUCCESSFUL PLACEMENT OF A 5 FR DUAL LUMEN 38 CM PICC IN THE LEFT BASILIC VEIN. Assessment & Plan - Diagnosis (1) Sickle cell pain crisis Is this a current diagnosis for this admission?: Yes Plan: 09/03: She is on short acting oxycodone prn at home. Will have patient on long acting oxycodone. Will give dilaudid prn only for breakthrough pain. Give a liter of normal saline bolus then switch to NS at 200 cc/hr. 09/04: Will increase her oxycontin SR today from 10 to 20 mg bid. Oncology is recommending to increase her dilaudid from 1 mg q4h to q2h. Her hemoglobin trended down to 6.9. Ordered a unit of pRBC. Will also order a PICC line due to her very poor IV access. Keep on continuous O2. 09/05: Her labs came back and shows improvement of her hemoglobin, trending down of her reticulocyte count, bilirubin and LDH levels. Will keep dilaudid at 1 mg q2h prn for today and continue current Pecocet dose. Plan is to gradually go down on pain regimen/dose if her labs continue show improvement. (2) Acute on chronic anemia Is this a current diagnosis for this admission?: Yes Plan: Secondary to acute sickle crisis. She was transfused a unit of pRBC on 09/04. (3) Opiate dependence Is this a current diagnosis for this admission?: Yes - Time Time Spent with patient: 25-34 minutes
[2018-09-05] MEDS: AMITRIPTYLINE HCL 50 MG TABLET PO SCH (23:28)
[2018-09-06] MEDS: HYDROMORPHONE HCL INJ/PF 2 MG/ML AMPULE IV PRN ×9 (01:13→22:47)
[2018-09-06] MEDS: ONDANSETRON HCL INJ/PF 4 MG/2 ML SDV IV PRN ×5 (01:13→20:34)
[2018-09-06] MEDS: DIPHENHYDRAMINE HCL 50 MG/ML VIAL IV PRN ×5 (01:13→20:34)
[2018-09-06] MEDS: NORMAL SALINE 1000 ML 1,000 ML IV PRN ×5 (01:17→20:34)
[2018-09-06] MEDS: OXYCODONE HCL SR 10 MG TABLET PO SCH ×2 (05:43→18:09)
[2018-09-06 06:07] LABS: ALANINE AMINOTRANSFERASE 28 U/L (9-52); ALBUMIN 3.7 g/dL (3.5-5.0); ALKALINE PHOSPHATASE 57 U/L (38-126); ANION GAP 6 (5-19); ASPARTATE AMINO TRANSFERASE 27 U/L (14-36); BILIRUBIN,DIRECT 0.1 mg/dL (0.0-0.4); BILIRUBIN,TOTAL 1.6 mg/dL (0.2-1.3); BLOOD UREA NITROGEN 4 mg/dL (7-20); CALCIUM 8.4 mg/dL (8.4-10.2); CARBON DIOXIDE 24 mmol/L (22-30); CHLORIDE 112 mmol/L (98-107); GLUCOSE 99 mg/dL (75-110); POTASSIUM 3.9 mmol/L (3.6-5.0); SODIUM 141.9 mmol/L (137-145); TOTAL PROTEIN 6.1 g/dL (6.3-8.2)
[2018-09-06 06:13] LABS: ABSOLUTE RETICS # 0.151 10^6/uL (0.028-0.122); HEMATOCRIT 20.1 % (36.0-47.0); MEAN CORPUSCULAR HEMOGLOBIN 32.1 pg (27.0-33.4); MEAN CORPUSCULAR HGB CONC 35.8 g/dL (32.0-36.0); MEAN CORPUSCULAR VOLUME 90 fl (80-97); PLATELET COUNT 339 10^3/uL (150-450); RED BLOOD COUNT 2.25 10^6/uL (3.72-5.28); RED CELL DISTRIBUTION WIDTH 28.2 % (11.5-14.0); RETICULOCYTE COUNT (AUTO) 6.74 % (0.66-2.85)
[2018-09-06 06:54] LABS: HEMOGLOBIN 7.2 g/dL (12.0-15.5)
[2018-09-06 06:57] LABS: ABSOLUTE LYMPHOCYTES# (MANUAL) 2.6 10^3/uL (0.5-4.7); ABSOLUTE MONOCYTES # (MANUAL) 0.2 10^3/uL (0.1-1.4); ABSOLUTE NEUTROPHILS# (MANUAL) 3.6 10^3/uL (1.7-8.2); BASOPHILS % (MANUAL) 0 % (0-2); EOSINOPHILS % (MANUAL) 0 % (0-6); LYMPHOCYTES % (MANUAL) 41 % (13-45); MONOCYTES % (MANUAL) 3 % (3-13); NUCLEATED RED BLOOD CELLS 17 /100 WBC (0); SEGMENTED NEUTROPHILS % (MAN) 56 % (42-78); TOTAL CELLS COUNTED 100
[2018-09-06 07:00] LABS: ANISOCYTOSIS 3+; POLYCHROMASIA 2+
[2018-09-06 07:01] LABS: PLATELET COMMENT ADEQUATE; SICKLE RED CELLS 3+
[2018-09-06] MEDS ORDERED: HYDROMORPHONE HCL INJ/PF 2 MG/ML AMPULE IV PRN (07:24)
--- NOTE | 2018-09-06 07:27 | PDOC PROGRESS REPORT ---
Subjective Progress Note for:: 09/06/18 Subjective:: Patient states pain has not vchanged. She still believes higher dose of dilaudid may help better. No other new concerns, except some facial pain now. Reason For Visit: SICKLE CELL CRISIS Physical Exam Vital Signs: Temp Pulse Resp BP Pulse Ox 98.2 F 83 16 120/63 99 09/06/18 00:00 09/06/18 00:00 09/06/18 00:00 09/06/18 00:00 09/06/18 00:00 Intake & Output 09/05/18 09/06/18 09/07/18 06:59 06:59 06:59 Intake Total 3537 6313 Output Total 300 Balance 3537 6013 Weight 62.9 kg 62.9 kg General appearance: PRESENT: well-developed Respiratory exam: PRESENT: clear to auscultation william, unlabored Cardiovascular exam: PRESENT: RRR GI/Abdominal exam: PRESENT: normal bowel sounds, soft. ABSENT: tenderness Extremities exam: ABSENT: pedal edema Neurological exam: PRESENT: alert, awake Psychiatric exam: PRESENT: appropriate affect Skin exam: PRESENT: normal color Results Laboratory Results: 09/06/18 05:45 09/06/18 05:45 09/04/18 09/05/18 09/05/18 04:13 10:28 10:28 WBC 7.7 RBC 2.46 L Hgb 6.9 L 7.8 L Hct 21.8 L MCV 89 D MCH 31.7 MCHC 35.8 RDW 27.5 H Plt Count 390 Seg Neutrophils % Not Reportable Lymphocytes % Not Reportable Monocytes % Not Reportable Eosinophils % Not Reportable Basophils % Not Reportable Absolute Neutrophils Not Reportable Absolute Lymphocytes Not Reportable Absolute Monocytes Not Reportable Absolute Eosinophils Not Reportable Absolute Basophils Not Reportable Retic Count (auto) 9.33 H Absolute Retic 0.229 H Sodium 142.1 Potassium 4.0 Chloride 111 H Carbon Dioxide 26 Anion Gap 5 BUN 4 L Creatinine 0.49 L Est GFR ( Amer) > 60 Est GFR (Non-Af Amer) > 60 Glucose 90 Calcium 8.4 Total Bilirubin 1.5 H AST 30 ALT 19 Alkaline Phosphatase 61 Total Protein 6.1 L Albumin 3.7 09/06/18 09/06/18 05:45 05:45 WBC 6.0 RBC 2.25 L Hgb 7.2 L Hct 20.1 L MCV 90 MCH 32.1 MCHC 35.8 RDW 28.2 H Plt Count 339 Seg Neutrophils % Not Reportable Lymphocytes % Not Reportable Monocytes % Not Reportable Eosinophils % Not Reportable Basophils % Not Reportable Absolute Neutrophils Not Reportable Absolute Lymphocytes Not Reportable Absolute Monocytes Not Reportable Absolute Eosinophils Not Reportable Absolute Basophils Not Reportable Retic Count (auto) 6.74 H Absolute Retic 0.151 H Sodium 141.9 Potassium 3.9 Chloride 112 H Carbon Dioxide 24 Anion Gap 6 BUN 4 L Creatinine 0.47 L Est GFR ( Amer) > 60 Est GFR (Non-Af Amer) > 60 Glucose 99 Calcium 8.4 Total Bilirubin 1.6 H AST 27 ALT 28 Alkaline Phosphatase 57 Total Protein 6.1 L Albumin 3.7 Impressions: Guidance Fluoroscopy 09/04/18 00:00 IMPRESSION: SUCCESSFUL PLACEMENT OF A 5 FR DUAL LUMEN 38 CM PICC IN THE LEFT BASILIC VEIN. Interventional Vascular Procedure 09/04/18 00:00 IMPRESSION: SUCCESSFUL PLACEMENT OF A 5 FR DUAL LUMEN 38 CM PICC IN THE LEFT BASILIC VEIN. PICC Line Insertion 09/04/18 00:00 IMPRESSION: SUCCESSFUL PLACEMENT OF A 5 FR DUAL LUMEN 38 CM PICC IN THE LEFT BASILIC VEIN. Assessment & Plan - Diagnosis (1) Homozygous sickle cell (SS) disease Is this a current diagnosis for this admission?: Yes Plan: HGB continues to decrease. LDH and Bili remain elevated. Will continue fluids and O2. Although HGB is lower, she remains hemodynamically stable. Will try to avoid blood transfusions. (2) Sickle cell pain crisis Is this a current diagnosis for this admission?: Yes Plan: Continue OxyContin and increase dilaudid. - Plan Summary Plan Summary: Will start DVT prophylaxis as well. I will be available by phone tomorrow. Please call if needed. Dr. Cornelius to return Saturday
[2018-09-06] MEDS: AMITRIPTYLINE HCL 25 MG TABLET PO SCH (08:37)
[2018-09-06] MEDS ORDERED: PROMETHAZINE HCL 25 MG TABLET PO PRN (10:14)
[2018-09-06] MEDS ORDERED: OXYCODONE HCL IR 5 MG TABLET PO PRN (10:38)
[2018-09-06] MEDS: FOLIC ACID 1 MG TABLET PO SCH (10:57)
[2018-09-06] MEDS: HYDROXYUREA 500 MG CAPSULE PO SCH (11:02)
[2018-09-06] MEDS: ENOXAPARIN SODIUM INJ 40 MG/0.4 ML DISP.SYRIN SUBCUT SCH (11:02)
[2018-09-06] MEDS: NORMAL SALINE 10 ML SDV (SCHEDULED) IV SCH ×2 (11:03→22:44)
[2018-09-06] MEDS ORDERED: LIDOCAINE 5% (700 MG) TRANSDERMAL ADH..PATCH TP ONE (11:15)
--- NOTE | 2018-09-06 17:39 | PDOC PROGRESS REPORT ---
Subjective Progress Note for:: 09/06/18 Subjective:: This is a 28 year old female with no significant past medical history aside from sickle cell disease diagnosed during childhood who was admitted 09/04/18 for sickle cell crisis. The patient was seen on morning rounds. She was found sitting up in her bed on supplemental oxygen via nasal cannula. She reports continued severe pain, however, appears comfortable at present. She is thankful regarding the increase in the dosing of her Dilaudid; now on 2 mg every 2 hours as needed. She is reports that she continues to have generalized body and joint pains, now with left facial pain which is common during sickle cell crisis for her. She denies fever, chills, chest pain, palpitations, dyspnea, orthopnea, abdominal pain, nausea vomiting and diarrhea. She is tolerating a regular diet. She has no other questions or concerns. No concerns per nursing. Reason For Visit: SICKLE CELL CRISIS Physical Exam Vital Signs: Temp Pulse Resp BP Pulse Ox 98.2 F 79 16 139/64 H 94 09/06/18 14:56 09/06/18 14:56 09/06/18 14:56 09/06/18 14:56 09/06/18 14:56 Intake & Output 09/05/18 09/06/18 09/07/18 06:59 06:59 06:59 Intake Total 3537 6313 2655 Output Total 300 1400 Balance 3537 6013 1255 Weight 62.9 kg 62.9 kg General appearance: PRESENT: no acute distress, cooperative, well-developed, well-nourished Head exam: PRESENT: atraumatic, normocephalic Eye exam: PRESENT: conjunctiva pink, EOMI, PERRLA. ABSENT: scleral icterus Mouth exam: PRESENT: moist, tongue midline Neck exam: ABSENT: carotid bruit, JVD, lymphadenopathy, thyromegaly Respiratory exam: PRESENT: clear to auscultation william, symmetrical, unlabored, other - Supplemental oxygen by nasal cannula. ABSENT: rales, rhonchi, wheezes Cardiovascular exam: PRESENT: RRR, +S1, +S2. ABSENT: diastolic murmur, rubs, systolic murmur Pulses: PRESENT: normal dorsalis pedis pul Vascular exam: PRESENT: normal capillary refill GI/Abdominal exam: PRESENT: normal bowel sounds, soft. ABSENT: distended, guarding, mass, organolmegaly, rebound, tenderness Rectal exam: PRESENT: deferred Extremities exam: PRESENT: full ROM. ABSENT: calf tenderness, clubbing, pedal edema Neurological exam: PRESENT: alert, awake, oriented to person, oriented to place, oriented to time, oriented to situation, CN II-XII grossly intact. ABSENT: motor sensory deficit Psychiatric exam: PRESENT: appropriate affect, normal mood. ABSENT: homicidal ideation, suicidal ideation Skin exam: PRESENT: dry, intact, warm. ABSENT: cyanosis, rash Results Laboratory Results: 09/06/18 05:45 09/06/18 05:45 09/06/18 09/06/18 05:45 05:45 WBC 6.0 RBC 2.25 L Hgb 7.2 L Hct 20.1 L MCV 90 MCH 32.1 MCHC 35.8 RDW 28.2 H Plt Count 339 Seg Neutrophils % Not Reportable Lymphocytes % Not Reportable Monocytes % Not Reportable Eosinophils % Not Reportable Basophils % Not Reportable Absolute Neutrophils Not Reportable Absolute Lymphocytes Not Reportable Absolute Monocytes Not Reportable Absolute Eosinophils Not Reportable Absolute Basophils Not Reportable Retic Count (auto) 6.74 H Absolute Retic 0.151 H Sodium 141.9 Potassium 3.9 Chloride 112 H Carbon Dioxide 24 Anion Gap 6 BUN 4 L Creatinine 0.47 L Est GFR ( Amer) > 60 Est GFR (Non-Af Amer) > 60 Glucose 99 Calcium 8.4 Total Bilirubin 1.6 H AST 27 ALT 28 Alkaline Phosphatase 57 Total Protein 6.1 L Albumin 3.7 Impressions: Guidance Fluoroscopy 09/04/18 00:00 IMPRESSION: SUCCESSFUL PLACEMENT OF A 5 FR DUAL LUMEN 38 CM PICC IN THE LEFT BASILIC VEIN. Interventional Vascular Procedure 09/04/18 00:00 IMPRESSION: SUCCESSFUL PLACEMENT OF A 5 FR DUAL LUMEN 38 CM PICC IN THE LEFT BASILIC VEIN. PICC Line Insertion 09/04/18 00:00 IMPRESSION: SUCCESSFUL PLACEMENT OF A 5 FR DUAL LUMEN 38 CM PICC IN THE LEFT BASILIC VEIN. Assessment & Plan - Diagnosis (1) Sickle cell pain crisis Is this a current diagnosis for this admission?: Yes Plan: Patient reports continued severe pain. Laboratory evaluation is improved; hemoglobin is stable at 7.2 status post 1 unit PRBC. Retic count, LDH, total bili trending down. Hematology is consulted; appreciate Dr. Jung's assistance. Dilaudid has been increased today to IV Dilaudid 2 mg every 2 hours as needed breakthrough pain. Continue OxyContin 20 mg twice daily. Resume the patient's home dose oxycodone IR 15 mg every 6 hours as needed; nursing asked to offer first and utilize Dilaudid for breakthrough only. Continue home dose hydroxyurea. Continue home dose of amitriptyline. Benadryl and antiemetics as needed. Lidoderm patch (patient reports menstrual cramps related back pain; may provide some therapeutic effect) K pad Supplemental oxygen as needed to maintain oxygen saturations greater than 90% Continue aggressive IV fluid hydration. Folic acid supplementation. Discussed with patient that the improvement in her labs suggest that her sickle cell crisis may be getting to resolved; she is encouraged to use nonp harmacological interventions to help has adjunctive management of her pain. Encourage patient to ambulate in the hallways. (2) Acute on chronic anemia Is this a current diagnosis for this admission?: Yes Plan: Secondary to acute sickle cell crisis. Baseline hemoglobin in the eights. Admitted with a hemoglobin of 8.0; trended down to 6.9. She is now status post 1 unit PRBC. Hemoglobin currently 7.2. Continue to monitor and transfuse as needed for hemoglobin less than 7. (3) Opiate dependence Is this a current diagnosis for this admission?: Yes Plan: Secondary to chronic sickle cell pain. Pain management as above. (4) Hypertension Qualifiers: Hypertension type: essential hypertension Qualified Code(s): I10 - Essential (primary) hypertension Is this a current diagnosis for this admission?: Yes Plan: Home dose amlodipine is resumed today. - Time Time Spent with patient: 25-34 minutes Medications reviewed and adjusted accordingly: Yes Anticipated discharge: Home Within: within 72 hours
[2018-09-06] MEDS: ZOLPIDEM TARTRATE 5 MG TABLET PO PRN (22:44)
[2018-09-06] MEDS: AMITRIPTYLINE HCL 50 MG TABLET PO SCH (22:44)
[2018-09-06] MEDS: CETIRIZINE 10 MG TABLET PO SCH (22:44)
[2018-09-07] MEDS: HYDROMORPHONE HCL INJ/PF 2 MG/ML AMPULE IV PRN ×11 (00:53→23:08)
[2018-09-07] MEDS: ONDANSETRON HCL INJ/PF 4 MG/2 ML SDV IV PRN ×6 (00:53→23:07)
[2018-09-07] MEDS: DIPHENHYDRAMINE HCL 50 MG/ML VIAL IV PRN ×6 (00:53→23:08)
[2018-09-07] MEDS: NORMAL SALINE 1000 ML 1,000 ML IV PRN ×3 (03:18→16:52)
[2018-09-07] MEDS: OXYCODONE HCL SR 10 MG TABLET PO SCH ×2 (05:49→17:52)
[2018-09-07 06:40] LABS: HEMATOCRIT 18.9 % (36.0-47.0); MEAN CORPUSCULAR HEMOGLOBIN 32.1 pg (27.0-33.4); MEAN CORPUSCULAR HGB CONC 36.9 g/dL (32.0-36.0); MEAN CORPUSCULAR VOLUME 87 fl (80-97); PLATELET COUNT 325 10^3/uL (150-450); RED BLOOD COUNT 2.16 10^6/uL (3.72-5.28); RED CELL DISTRIBUTION WIDTH 26.9 % (11.5-14.0); WHITE BLOOD COUNT 7.1 10^3/uL (4.0-10.5)
[2018-09-07 06:44] LABS: ALANINE AMINOTRANSFERASE 16 U/L (9-52); ALBUMIN 3.9 g/dL (3.5-5.0); ALKALINE PHOSPHATASE 63 U/L (38-126); ANION GAP 7 (5-19); ASPARTATE AMINO TRANSFERASE 34 U/L (14-36); BILIRUBIN,DIRECT 0.4 mg/dL (0.0-0.4); BILIRUBIN,TOTAL 2.1 mg/dL (0.2-1.3); BLOOD UREA NITROGEN 5 mg/dL (7-20); CARBON DIOXIDE 24 mmol/L (22-30); CHLORIDE 111 mmol/L (98-107); GLUCOSE 76 mg/dL (75-110); POTASSIUM 4.4 mmol/L (3.6-5.0); SODIUM 141.6 mmol/L (137-145); TOTAL PROTEIN 6.2 g/dL (6.3-8.2)
[2018-09-07 07:59] LABS: ABSOLUTE LYMPHOCYTES# (MANUAL) 3.6 10^3/uL (0.5-4.7); ABSOLUTE MONOCYTES # (MANUAL) 0.5 10^3/uL (0.1-1.4); BASOPHILS % (MANUAL) 0 % (0-2); EOSINOPHILS % (MANUAL) 1 % (0-6); LYMPHOCYTES % (MANUAL) 50 % (13-45); MONOCYTES % (MANUAL) 7 % (3-13); NUCLEATED RED BLOOD CELLS 3 /100 WBC (0); SEGMENTED NEUTROPHILS % (MAN) 42 % (42-78); TOTAL CELLS COUNTED 100
[2018-09-07 08:01] LABS: ANISOCYTOSIS 3+; OVALOCYTES 1+; PLATELET COMMENT ADEQUATE; POIKILOCYTOSIS 2+; POLYCHROMASIA SLIGHT; SICKLE RED CELLS 1+; TARGET CELLS SLIGHT
[2018-09-07] MEDS: AMITRIPTYLINE HCL 25 MG TABLET PO SCH (08:27)
[2018-09-07] MEDS: FOLIC ACID 1 MG TABLET PO SCH (10:12)
[2018-09-07] MEDS: AMLODIPINE BESYLATE 5 MG TABLET PO SCH (10:12)
[2018-09-07] MEDS: ENOXAPARIN SODIUM INJ 40 MG/0.4 ML DISP.SYRIN SUBCUT SCH (10:13)
[2018-09-07] MEDS: HYDROXYUREA 500 MG CAPSULE PO SCH (10:13)
[2018-09-07] MEDS: NORMAL SALINE 10 ML SDV (SCHEDULED) IV SCH ×2 (10:14→21:00)
--- NOTE | 2018-09-07 16:09 | PDOC PROGRESS REPORT ---
Subjective Progress Note for:: 09/07/18 Subjective:: This is a 28 year old female with no significant past medical history aside from sickle cell disease diagnosed during childhood who was admitted 09/04/18 for sickle cell crisis. The patient was seen on morning rounds. She was found ambulating in her room on room air. She reports continued severe pain, however, appears comfortable at present. She is reports that she continues to have generalized body and joint pains, now with left facial pain which is common during sickle cell crisis for her. She tells me that she does not feel there is an indication for continuing OxyContin and her home dose oxycodone; attempted to explain to her that these medications will help manage her chronic pain so that the Dilaudid will be more effective with the acute exacerbation. The patient was polite, but argumentative and repetitively asked me to increase her Dilaudid. She was advised that we would contact her virtual office assistant for medication recommendations. The patient expressed appreciation with this compromise. She denies fever, chills, chest pain, palpitations, dyspnea, orthopnea, abdominal pain, nausea vomiting and diarrhea. She is tolerating a regular diet. She has no other questions or concerns. No concerns per nursing. Reason For Visit: SICKLE CELL CRISIS Physical Exam Vital Signs: Temp Pulse Resp BP Pulse Ox 98.3 F 83 18 158/77 H 98 09/07/18 12:14 09/07/18 12:14 09/07/18 12:14 09/07/18 12:14 09/07/18 12:14 Intake & Output 09/06/18 09/07/18 09/08/18 06:59 06:59 06:59 Intake Total 6313 5716 1000 Output Total 300 2500 Balance 6013 3216 1000 Weight 62.9 kg 62.3 kg General appearance: PRESENT: no acute distress, cooperative, well-developed, well-nourished Head exam: PRESENT: atraumatic, normocephalic Eye exam: PRESENT: conjunctiva pink, EOMI, PERRLA. ABSENT: scleral icterus Ear exam: PRESENT: normal external ear exam Mouth exam: PRESENT: moist, tongue midline Neck exam: ABSENT: carotid bruit, JVD, lymphadenopathy, thyromegaly Respiratory exam: PRESENT: clear to auscultation william, symmetrical, unlabored. ABSENT: rales, rhonchi, wheezes Cardiovascular exam: PRESENT: RRR, +S1, +S2. ABSENT: diastolic murmur, rubs, systolic murmur Pulses: PRESENT: normal dorsalis pedis pul Vascular exam: PRESENT: normal capillary refill GI/Abdominal exam: PRESENT: normal bowel sounds, soft. ABSENT: distended, guarding, mass, organolmegaly, rebound, tenderness Rectal exam: PRESENT: deferred Extremities exam: PRESENT: full ROM. ABSENT: calf tenderness, clubbing, pedal edema Neurological exam: PRESENT: alert, awake, oriented to person, oriented to place, oriented to time, oriented to situation, CN II-XII grossly intact. ABSENT: motor sensory deficit Psychiatric exam: PRESENT: appropriate affect, normal mood. ABSENT: homicidal ideation, suicidal ideation Skin exam: PRESENT: dry, intact, warm. ABSENT: cyanosis, rash Results Laboratory Results: 09/07/18 05:50 09/07/18 05:50 09/07/18 09/07/18 05:50 05:50 WBC 7.1 RBC 2.16 L Hgb 7.0 L Hct 18.9 L MCV 87 MCH 32.1 MCHC 36.9 H RDW 26.9 H Plt Count 325 Seg Neutrophils % Not Reportable Lymphocytes % Not Reportable Monocytes % Not Reportable Eosinophils % Not Reportable Basophils % Not Reportable Absolute Neutrophils Not Reportable Absolute Lymphocytes Not Reportable Absolute Monocytes Not Reportable Absolute Eosinophils Not Reportable Absolute Basophils Not Reportable Sodium 141.6 Potassium 4.4 Chloride 111 H Carbon Dioxide 24 Anion Gap 7 BUN 5 L Creatinine 0.50 L Est GFR ( Amer) > 60 Est GFR (Non-Af Amer) > 60 Glucose 76 Calcium 8.0 L Total Bilirubin 2.1 H AST 34 ALT 16 Alkaline Phosphatase 63 Total Protein 6.2 L Albumin 3.9 Impressions: Guidance Fluoroscopy 09/04/18 00:00 IMPRESSION: SUCCESSFUL PLACEMENT OF A 5 FR DUAL LUMEN 38 CM PICC IN THE LEFT BASILIC VEIN. Interventional Vascular Procedure 09/04/18 00:00 IMPRESSION: SUCCESSFUL PLACEMENT OF A 5 FR DUAL LUMEN 38 CM PICC IN THE LEFT BASILIC VEIN. PICC Line Insertion 09/04/18 00:00 IMPRESSION: SUCCESSFUL PLACEMENT OF A 5 FR DUAL LUMEN 38 CM PICC IN THE LEFT BASILIC VEIN. Assessment & Plan - Diagnosis (1) Sickle cell pain crisis Is this a current diagnosis for this admission?: Yes Plan: Patient reports continued severe pain. Laboratory evaluation is improved; hemoglobin is stable at 7.2 status post 1 unit PRBC. Retic count, LDH, total bili trending down. Hematology is consulted; appreciate Dr. Jung's assistance. Dilaudid has been increased today to IV Dilaudid 3 mg every 2 hours as needed breakthrough pain (per hematology) Continue OxyContin 20 mg twice daily. Continue the patient's home dose oxycodone IR 15 mg every 6 hours as needed; nursing asked to offer first and utilize Dilaudid for breakthrough only. Patient is educated on use of oxycodone for management of her chronic pain as she is opiate dependent. Will defer analgesic management to the hematology team. Continue home dose hydroxyurea. Continue home dose of amitriptyline. Benadryl and antiemetics as needed. Lidoderm patch (patient reports menstrual cramps related back pain; may provide some therapeutic effect) K pad Supplemental oxygen as needed to maintain oxygen saturations greater than 90% Continue aggressive IV fluid hydration. Folic acid supplementation. (2) Acute on chronic anemia Is this a current diagnosis for this admission?: Yes Plan: Secondary to acute sickle cell crisis. Baseline hemoglobin in the eights. Admitted with a hemoglobin of 8.0; trended down to 6.9. She is now status post 1 unit PRBC. Hemoglobin currently 7.0. Continue to monitor and transfuse as needed for hemoglobin less than 7. (3) Opiate dependence Is this a current diagnosis for this admission?: Yes Plan: Secondary to chronic sickle cell pain. Pain management as above. (4) Hypertension Qualifiers: Hypertension type: essential hypertension Qualified Code(s): I10 - Essential (primary) hypertension Is this a current diagnosis for this admission?: Yes Plan: Continue home dose amlodipine - Time Time Spent with patient: 15-24 minutes Medications reviewed and adjusted accordingly: Yes Anticipated discharge: Home
[2018-09-07] MEDS: AMITRIPTYLINE HCL 50 MG TABLET PO SCH (21:01)
[2018-09-07] MEDS: CETIRIZINE 10 MG TABLET PO SCH (21:01)
[2018-09-07] MEDS: ZOLPIDEM TARTRATE 5 MG TABLET PO PRN (23:07)
[2018-09-08] MEDS: HYDROMORPHONE HCL INJ/PF 2 MG/ML AMPULE IV PRN ×10 (01:16→22:00)
[2018-09-08] MEDS: NORMAL SALINE 1000 ML 1,000 ML IV PRN ×4 (01:16→22:07)
[2018-09-08] MEDS: DIPHENHYDRAMINE HCL 50 MG/ML VIAL IV PRN ×5 (03:25→21:56)
[2018-09-08] MEDS: ONDANSETRON HCL INJ/PF 4 MG/2 ML SDV IV PRN ×5 (03:26→21:57)
[2018-09-08] MEDS: OXYCODONE HCL SR 10 MG TABLET PO SCH (05:58)
[2018-09-08 06:34] LABS: ABSOLUTE RETICS # 0.043 10^6/uL (0.028-0.122); HEMATOCRIT 17.6 % (36.0-47.0); MEAN CORPUSCULAR HEMOGLOBIN 32.2 pg (27.0-33.4); MEAN CORPUSCULAR VOLUME 84 fl (80-97); PLATELET COUNT 298 10^3/uL (150-450); RED CELL DISTRIBUTION WIDTH 25.7 % (11.5-14.0); RETICULOCYTE COUNT (AUTO) 2.04 % (0.66-2.85); WHITE BLOOD COUNT 8.3 10^3/uL (4.0-10.5)
[2018-09-08 06:36] LABS: ALANINE AMINOTRANSFERASE 26 U/L (9-52); ALKALINE PHOSPHATASE 62 U/L (38-126); ANION GAP 5 (5-19); ASPARTATE AMINO TRANSFERASE 54 U/L (14-36); BILIRUBIN,DIRECT 0.2 mg/dL (0.0-0.4); BILIRUBIN,TOTAL 2.6 mg/dL (0.2-1.3); BLOOD UREA NITROGEN 5 mg/dL (7-20); CARBON DIOXIDE 26 mmol/L (22-30); CHLORIDE 110 mmol/L (98-107); GLUCOSE 79 mg/dL (75-110); POTASSIUM 4.2 mmol/L (3.6-5.0); SODIUM 141.4 mmol/L (137-145); TOTAL PROTEIN 6.5 g/dL (6.3-8.2)
[2018-09-08 08:34] LABS: HEMOGLOBIN 6.8 g/dL (12.0-15.5)
[2018-09-08 08:35] LABS: MEAN CORPUSCULAR HGB CONC 38.4 g/dL (32.0-36.0)
[2018-09-08] MEDS ORDERED: ACETAMINOPHEN 325 MG TABLET PO PRN (08:37)
[2018-09-08] MEDS ORDERED: DIPHENHYDRAMINE HCL 25 MG CAPSULE PO PRN (08:38)
[2018-09-08] MEDS ORDERED: FLUCONAZOLE 100 MG TABLET PO ONE (08:45)
[2018-09-08] MEDS: AMITRIPTYLINE HCL 25 MG TABLET PO SCH (08:54)
--- NOTE | 2018-09-08 08:57 | PDOC PROGRESS REPORT ---
Subjective Progress Note for:: 09/08/18 Subjective:: Patient with still fairly significant pain, oxycodone/OxyContin not really giving her relief. Reason For Visit: SICKLE CELL CRISIS Physical Exam Vital Signs: Temp Pulse Resp BP Pulse Ox 98.2 F 64 18 128/82 H 96 09/07/18 20:00 09/07/18 20:00 09/07/18 20:00 09/07/18 20:00 09/07/18 20:00 Intake & Output 09/07/18 09/08/18 09/09/18 06:59 06:59 06:59 Intake Total 5716 4538 Output Total 2500 1400 Balance 3216 3138 Weight 62.3 kg 61.5 kg General appearance: PRESENT: no acute distress, well-developed, well-nourished Head exam: PRESENT: atraumatic, normocephalic Eye exam: PRESENT: conjunctiva pink, EOMI, PERRLA. ABSENT: scleral icterus Ear exam: PRESENT: normal external ear exam Mouth exam: PRESENT: moist, tongue midline Neck exam: ABSENT: carotid bruit, JVD, lymphadenopathy, thyromegaly Respiratory exam: PRESENT: clear to auscultation william. ABSENT: rales, rhonchi, wheezes Cardiovascular exam: PRESENT: RRR. ABSENT: diastolic murmur, rubs, systolic murmur Pulses: PRESENT: normal dorsalis pedis pul Vascular exam: PRESENT: normal capillary refill GI/Abdominal exam: PRESENT: normal bowel sounds, soft. ABSENT: distended, guarding, mass, organolmegaly, rebound, tenderness Rectal exam: PRESENT: deferred Extremities exam: PRESENT: full ROM. ABSENT: calf tenderness, clubbing, pedal edema Neurological exam: PRESENT: alert, awake, oriented to person, oriented to place, oriented to time, oriented to situation, CN II-XII grossly intact. ABSENT: motor sensory deficit Psychiatric exam: PRESENT: appropriate affect, normal mood. ABSENT: homicidal ideation, suicidal ideation Skin exam: PRESENT: dry, intact, warm. ABSENT: cyanosis, rash Results Laboratory Results: 09/08/18 05:40 09/08/18 05:40 09/08/18 09/08/18 05:40 05:40 WBC 8.3 RBC 2.10 L Hgb 6.8 L Hct 17.6 L MCV 84 MCH 32.2 MCHC 38.4 H RDW 25.7 H Plt Count 298 Retic Count (auto) 2.04 Absolute Retic 0.043 Sodium 141.4 Potassium 4.2 Chloride 110 H Carbon Dioxide 26 Anion Gap 5 BUN 5 L Creatinine 0.53 Est GFR ( Amer) > 60 Est GFR (Non-Af Amer) > 60 Glucose 79 Calcium 9.0 Total Bilirubin 2.6 H AST 54 H ALT 26 Alkaline Phosphatase 62 Total Protein 6.5 Albumin 4.0 Impressions: Guidance Fluoroscopy 09/04/18 00:00 IMPRESSION: SUCCESSFUL PLACEMENT OF A 5 FR DUAL LUMEN 38 CM PICC IN THE LEFT BASILIC VEIN. Interventional Vascular Procedure 09/04/18 00:00 IMPRESSION: SUCCESSFUL PLACEMENT OF A 5 FR DUAL LUMEN 38 CM PICC IN THE LEFT BASILIC VEIN. PICC Line Insertion 09/04/18 00:00 IMPRESSION: SUCCESSFUL PLACEMENT OF A 5 FR DUAL LUMEN 38 CM PICC IN THE LEFT BASILIC VEIN. Assessment & Plan - Diagnosis (1) Sickle cell pain crisis Is this a current diagnosis for this admission?: Yes Plan: Still severe, I will discontinue oxycodone and OxyContin. Usually we need to give her continuous Dilaudid for pain control while she is admitted. I will go up on her Dilaudid to 4 mg every 2 hours and I will control her pain medications. Continue with other supportive measures. (2) Oral candidiasis Is this a current diagnosis for this admission?: Yes Plan: Looks like she does have probable oral thrush, plan for 1 dose of Diflucan 150 mg x1. 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 - Time Time Spent with patient: 35 or more minutes - Inpatient Certification Based on my medical assessment, after consideration of the patient's comorbidities, presenting symptoms, or acuity I expect that the services needed warrant INPATIENT care.: Yes I certify that my determination is in accordance with my understanding of Medicare's requirements for reasonable and necessary INPATIENT services [42 CFR 412.3e].: Yes Medical Necessity: Need For IV Fluids, Need for Pain Control, Need for IV Antibiotics, Risk of Complication if Not Cared For in Hospital
[2018-09-08] MEDS: ENOXAPARIN SODIUM INJ 40 MG/0.4 ML DISP.SYRIN SUBCUT SCH (09:03)
[2018-09-08] MEDS: FOLIC ACID 1 MG TABLET PO SCH (09:04)
[2018-09-08] MEDS: AMLODIPINE BESYLATE 5 MG TABLET PO SCH (09:05)
[2018-09-08] MEDS: HYDROXYUREA 500 MG CAPSULE PO SCH (09:05)
[2018-09-08] MEDS: NORMAL SALINE 10 ML SDV (SCHEDULED) IV SCH ×2 (09:06→21:56)
[2018-09-08] MEDS: ACETAMINOPHEN 325 MG TABLET PO PRN (11:19)
[2018-09-08 18:01] LABS: ABSOLUTE BASOPHILS # (AUTO) 0.1 10^3/uL (0.0-0.2); ABSOLUTE EOSINOPHILS # (AUTO) 0.1 10^3/uL (0.0-0.6); ABSOLUTE LYMPHOCYTES (AUTO) 2.7 10^3/uL (0.5-4.7); ABSOLUTE MONOCYTES (AUTO) 0.7 10^3/uL (0.1-1.4); ABSOLUTE NEUT (AUTO) 2.8 10^3/uL (1.7-8.2); BASOPHILS % (AUTO) 1.3 % (0-2); EOSINOPHILS % (AUTO) 1.8 % (0-6); HEMATOCRIT 17.8 % (36.0-47.0); LYMPHOCYTES % (AUTO) 42.7 % (13-45); MEAN CORPUSCULAR HEMOGLOBIN 32.1 pg (27.0-33.4); MEAN CORPUSCULAR VOLUME 85 fl (80-97); MONOCYTES % (AUTO) 10.5 % (3-13); PLATELET COUNT 246 10^3/uL (150-450); RED CELL DISTRIBUTION WIDTH 25.1 % (11.5-14.0); SEGMENTED NEUTROPHILS % (AUTO) 43.7 % (42-78); TOTAL CELLS COUNTED % (AUTO) 100 %; WHITE BLOOD COUNT 6.4 10^3/uL (4.0-10.5)
[2018-09-08 18:09] LABS: MEAN CORPUSCULAR HGB CONC 37.9 g/dL (32.0-36.0)
[2018-09-08 18:10] LABS: HEMOGLOBIN 6.7 g/dL (12.0-15.5)
--- NOTE | 2018-09-08 18:16 | PDOC PROGRESS REPORT ---
Subjective Progress Note for:: 09/08/18 Subjective:: This is a 28 year old female with no significant past medical history aside from sickle cell disease diagnosed during childhood who was admitted 09/04/18 for sickle cell crisis. The patient was seen on afternoon rounds. She was found sleeping soundly on room air; it took several attempts to wake her. She reports that she is pleased by her increase in dilaudid, "I knew Dr. Cornelius would give me more medicine; we know each other." She is noted to be lethargic and falls back to sleep during our conversation. She does deny fever, chills, chest pain, dyspnea, and nausea. She has no other questions or concerns. No concerns per nursing. Reason For Visit: SICKLE CELL CRISIS Physical Exam Vital Signs: Temp Pulse Resp BP Pulse Ox 98.7 F 100 20 135/66 H 97 09/08/18 15:31 09/08/18 15:31 09/08/18 15:31 09/08/18 15:31 09/08/18 15:31 Intake & Output 09/07/18 09/08/18 09/09/18 06:59 06:59 06:59 Intake Total 5716 4538 2383 Output Total 2500 1400 Balance 3216 3138 2383 Weight 62.3 kg 61.5 kg General appearance: PRESENT: no acute distress, well-developed, well-nourished Head exam: PRESENT: atraumatic, normocephalic Eye exam: PRESENT: conjunctiva pink, EOMI, PERRLA. ABSENT: scleral icterus Ear exam: PRESENT: normal external ear exam Mouth exam: PRESENT: moist, tongue midline Neck exam: ABSENT: carotid bruit, JVD, lymphadenopathy, thyromegaly Respiratory exam: PRESENT: clear to auscultation william, symmetrical, unlabored. ABSENT: rales, rhonchi, wheezes Cardiovascular exam: PRESENT: RRR. ABSENT: diastolic murmur, rubs, systolic murmur Pulses: PRESENT: normal dorsalis pedis pul Vascular exam: PRESENT: normal capillary refill GI/Abdominal exam: PRESENT: normal bowel sounds, soft. ABSENT: distended, guarding, mass, organolmegaly, rebound, tenderness Rectal exam: PRESENT: deferred Extremities exam: PRESENT: full ROM. ABSENT: calf tenderness, clubbing, pedal edema Neurological exam: PRESENT: alert, awake, oriented to person, oriented to place, oriented to time, oriented to situation, CN II-XII grossly intact, other. ABSENT: motor sensory deficit Psychiatric exam: PRESENT: appropriate affect, normal mood. ABSENT: homicidal ideation, suicidal ideation Skin exam: PRESENT: dry, intact, warm. ABSENT: cyanosis, rash Results Laboratory Results: 09/08/18 05:40 09/08/18 09/08/18 09/08/18 05:40 05:40 09:55 WBC 8.3 RBC 2.10 L Hgb 6.8 L Hct 17.6 L MCV 84 MCH 32.2 MCHC 38.4 H RDW 25.7 H Plt Count 298 Retic Count (auto) 2.04 Absolute Retic 0.043 Sodium 141.4 Potassium 4.2 Chloride 110 H Carbon Dioxide 26 Anion Gap 5 BUN 5 L Creatinine 0.53 Est GFR ( Amer) > 60 Est GFR (Non-Af Amer) > 60 Glucose 79 Calcium 9.0 Total Bilirubin 2.6 H AST 54 H ALT 26 Alkaline Phosphatase 62 Total Protein 6.5 Albumin 4.0 Blood Type O POSITIVE Antibody Screen NEGATIVE Impressions: Guidance Fluoroscopy 09/04/18 00:00 IMPRESSION: SUCCESSFUL PLACEMENT OF A 5 FR DUAL LUMEN 38 CM PICC IN THE LEFT BASILIC VEIN. Interventional Vascular Procedure 09/04/18 00:00 IMPRESSION: SUCCESSFUL PLACEMENT OF A 5 FR DUAL LUMEN 38 CM PICC IN THE LEFT BASILIC VEIN. PICC Line Insertion 09/04/18 00:00 IMPRESSION: SUCCESSFUL PLACEMENT OF A 5 FR DUAL LUMEN 38 CM PICC IN THE LEFT BASILIC VEIN. Assessment & Plan - Diagnosis (1) Sickle cell pain crisis Is this a current diagnosis for this admission?: Yes Plan: Patient reports continued severe pain. Hemoglobin down to 6.8; receiving additional unit PRBC. Retic count is down, however, LDH and total bili are up today. Hematology is consulted; appreciate Dr. Cornelius's assistance. Pain management per hematology; they have discontinued her oral analgesics and increased her Dilaudid today. Continue home dose hydroxyurea. Continue home dose of amitriptyline. Benadryl and antiemetics as needed. Lidoderm patch (patient reports menstrual cramps related back pain; may provide some therapeutic effect) K pad Supplemental oxygen as needed to maintain oxygen saturations greater than 90% Continue aggressive IV fluid hydration. Folic acid supplementation. (2) Acute on chronic anemia Is this a current diagnosis for this admission?: Yes - Lethargic Plan: Secondary to acute sickle cell crisis. Baseline hemoglobin in the eights. Now status post 2 units PRBC. Continue to monitor and transfuse as needed for hemoglobin less than 7. (3) Opiate dependence Is this a current diagnosis for this admission?: Yes Plan: Secondary to chronic sickle cell pain. Pain management as above. (4) Hypertension Qualifiers: Hypertension type: essential hypertension Qualified Code(s): I10 - Essential (primary) hypertension Is this a current diagnosis for this admission?: Yes Plan: Normotensive today. Continue home dose amlodipine - Time Time Spent with patient: Less than 15 minutes Medications reviewed and adjusted accordingly: Yes Anticipated discharge: Home
[2018-09-08 18:28] LABS: ANISOCYTOSIS 3+; POIKILOCYTOSIS 1+; TOXIC GRANULATION SLIGHT
[2018-09-08 18:29] LABS: PLATELET COMMENT ADEQUATE; SICKLE RED CELLS 1+; TARGET CELLS SLIGHT
[2018-09-08] MEDS: AMITRIPTYLINE HCL 50 MG TABLET PO SCH (21:56)
[2018-09-08] MEDS: CETIRIZINE 10 MG TABLET PO SCH (21:56)
[2018-09-08] MEDS: ZOLPIDEM TARTRATE 5 MG TABLET PO PRN (23:50)
[2018-09-09] MEDS: HYDROMORPHONE HCL INJ/PF 2 MG/ML AMPULE IV PRN ×10 (04:06→22:10)
[2018-09-09] MEDS: ONDANSETRON HCL INJ/PF 4 MG/2 ML SDV IV PRN ×6 (04:06→22:09)
[2018-09-09] MEDS: DIPHENHYDRAMINE HCL 50 MG/ML VIAL IV PRN ×6 (04:07→22:11)
[2018-09-09 05:50] LABS: ABSOLUTE BASOPHILS # (AUTO) 0.1 10^3/uL (0.0-0.2); ABSOLUTE EOSINOPHILS # (AUTO) 0.2 10^3/uL (0.0-0.6); ABSOLUTE LYMPHOCYTES (AUTO) 2.8 10^3/uL (0.5-4.7); ABSOLUTE MONOCYTES (AUTO) 0.6 10^3/uL (0.1-1.4); ABSOLUTE NEUT (AUTO) 3.6 10^3/uL (1.7-8.2); ABSOLUTE RETICS # 0.053 10^6/uL (0.028-0.122); BASOPHILS % (AUTO) 0.7 % (0-2); EOSINOPHILS % (AUTO) 2.5 % (0-6); HEMATOCRIT 20.5 % (36.0-47.0); LYMPHOCYTES % (AUTO) 38.8 % (13-45); MEAN CORPUSCULAR HEMOGLOBIN 31.4 pg (27.0-33.4); MEAN CORPUSCULAR VOLUME 84 fl (80-97); PLATELET COUNT 287 10^3/uL (150-450); RED BLOOD COUNT 2.43 10^6/uL (3.72-5.28); RED CELL DISTRIBUTION WIDTH 24.4 % (11.5-14.0); RETICULOCYTE COUNT (AUTO) 2.19 % (0.66-2.85); TOTAL CELLS COUNTED % (AUTO) 100 %; WHITE BLOOD COUNT 7.2 10^3/uL (4.0-10.5)
[2018-09-09 06:02] LABS: ALANINE AMINOTRANSFERASE 35 U/L (9-52); ALKALINE PHOSPHATASE 66 U/L (38-126); ANION GAP 7 (5-19); ASPARTATE AMINO TRANSFERASE 63 U/L (14-36); BILIRUBIN,DIRECT 0.4 mg/dL (0.0-0.4); BILIRUBIN,TOTAL 2.6 mg/dL (0.2-1.3); BLOOD UREA NITROGEN 4 mg/dL (7-20); CALCIUM 8.9 mg/dL (8.4-10.2); CARBON DIOXIDE 27 mmol/L (22-30); CHLORIDE 106 mmol/L (98-107); GLUCOSE 81 mg/dL (75-110); SODIUM 139.9 mmol/L (137-145); TOTAL PROTEIN 6.4 g/dL (6.3-8.2)
[2018-09-09 06:38] LABS: HEMOGLOBIN 7.6 g/dL (12.0-15.5)
[2018-09-09 06:39] LABS: MEAN CORPUSCULAR HGB CONC 37.2 g/dL (32.0-36.0)
[2018-09-09 07:02] LABS: TOXIC GRANULATION 1+
[2018-09-09 07:03] LABS: ANISOCYTOSIS 3+; BURR CELLS SLIGHT; PLATELET COMMENT ADEQUATE; POIKILOCYTOSIS 3+; SCHISTOCYTES SLIGHT; SICKLE RED CELLS 3+; TARGET CELLS 1+
[2018-09-09] MEDS: NORMAL SALINE 1000 ML 1,000 ML IV PRN ×3 (08:37→22:13)
--- NOTE | 2018-09-09 08:43 | PDOC PROGRESS REPORT ---
Subjective Progress Note for:: 09/09/18 Subjective:: Patient still having a lot of pain this morning Reason For Visit: SICKLE CELL CRISIS Physical Exam Vital Signs: Temp Pulse Resp BP Pulse Ox 98.4 F 97 16 124/72 90 L 09/08/18 23:37 09/08/18 23:37 09/08/18 23:37 09/08/18 23:37 09/08/18 23:37 Intake & Output 09/08/18 09/09/18 09/10/18 06:59 06:59 06:59 Intake Total 4538 5483 Output Total 1400 2875 Balance 3138 2608 Weight 61.5 kg 61.5 kg General appearance: PRESENT: no acute distress, well-developed, well-nourished Head exam: PRESENT: atraumatic, normocephalic Eye exam: PRESENT: conjunctiva pink, EOMI, PERRLA. ABSENT: scleral icterus Ear exam: PRESENT: normal external ear exam Mouth exam: PRESENT: moist, tongue midline Neck exam: ABSENT: carotid bruit, JVD, lymphadenopathy, thyromegaly Respiratory exam: PRESENT: clear to auscultation william. ABSENT: rales, rhonchi, wheezes Cardiovascular exam: PRESENT: RRR. ABSENT: diastolic murmur, rubs, systolic murmur Pulses: PRESENT: normal dorsalis pedis pul Vascular exam: PRESENT: normal capillary refill GI/Abdominal exam: PRESENT: normal bowel sounds, soft. ABSENT: distended, guarding, mass, organolmegaly, rebound, tenderness Rectal exam: PRESENT: deferred Extremities exam: PRESENT: full ROM. ABSENT: calf tenderness, clubbing, pedal edema Neurological exam: PRESENT: alert, awake, oriented to person, oriented to place, oriented to time, oriented to situation, CN II-XII grossly intact. ABSENT: motor sensory deficit Psychiatric exam: PRESENT: appropriate affect, normal mood. ABSENT: homicidal ideation, suicidal ideation Skin exam: PRESENT: dry, intact, warm. ABSENT: cyanosis, rash Results Laboratory Results: 09/09/18 04:10 09/09/18 04:10 09/08/18 09/08/18 09/09/18 09:55 17:31 04:10 WBC 6.4 7.2 RBC 2.10 L 2.43 L Hgb 6.7 L 7.6 L Hct 17.8 L 20.5 L MCV 85 84 MCH 32.1 31.4 MCHC 37.9 H 37.2 H RDW 25.1 H 24.4 H Plt Count 246 287 Seg Neutrophils % 43.7 50.0 Lymphocytes % 42.7 38.8 Monocytes % 10.5 8.0 Eosinophils % 1.8 2.5 Basophils % 1.3 0.7 Absolute Neutrophils 2.8 3.6 Absolute Lymphocytes 2.7 2.8 Absolute Monocytes 0.7 0.6 Absolute Eosinophils 0.1 0.2 Absolute Basophils 0.1 0.1 Retic Count (auto) 2.19 Absolute Retic 0.053 Sodium Potassium Chloride Carbon Dioxide Anion Gap BUN Creatinine Est GFR ( Amer) Est GFR (Non-Af Amer) Glucose Calcium Total Bilirubin AST ALT Alkaline Phosphatase Total Protein Albumin Blood Type O POSITIVE Antibody Screen NEGATIVE 09/09/18 04:10 WBC RBC Hgb Hct MCV MCH MCHC RDW Plt Count Seg Neutrophils % Lymphocytes % Monocytes % Eosinophils % Basophils % Absolute Neutrophils Absolute Lymphocytes Absolute Monocytes Absolute Eosinophils Absolute Basophils Retic Count (auto) Absolute Retic Sodium 139.9 Potassium 4.0 Chloride 106 Carbon Dioxide 27 Anion Gap 7 BUN 4 L Creatinine 0.53 Est GFR ( Amer) > 60 Est GFR (Non-Af Amer) > 60 Glucose 81 Calcium 8.9 Total Bilirubin 2.6 H AST 63 H ALT 35 Alkaline Phosphatase 66 Total Protein 6.4 Albumin 4.0 Blood Type Antibody Screen Impressions: Guidance Fluoroscopy 09/04/18 00:00 IMPRESSION: SUCCESSFUL PLACEMENT OF A 5 FR DUAL LUMEN 38 CM PICC IN THE LEFT BASILIC VEIN. Interventional Vascular Procedure 09/04/18 00:00 IMPRESSION: SUCCESSFUL PLACEMENT OF A 5 FR DUAL LUMEN 38 CM PICC IN THE LEFT BASILIC VEIN. PICC Line Insertion 09/04/18 00:00 IMPRESSION: SUCCESSFUL PLACEMENT OF A 5 FR DUAL LUMEN 38 CM PICC IN THE LEFT BASILIC VEIN. Assessment & Plan - Diagnosis (1) Sickle cell pain crisis Is this a current diagnosis for this admission?: Yes Plan: Continued, increased Dilaudid to 4.5 mg every 2 hours. Continue IV hydration, continue other supportive measures. (2) Oral candidiasis Is this a current diagnosis for this admission?: Yes Plan: Given 1 dose of Diflucan orally. (3) Anemia Qualifiers: Anemia type: acquired or hereditary hemolytic anemia Hemolytic anemia type: other hemoglobinopathy Qualified Code(s): D58.2 - Other hemoglobinopathies Is this a current diagnosis for this admission?: Yes Plan: Hemoglobin improved to the 7 range posttransfusion, will follow.
[2018-09-09] MEDS: AMLODIPINE BESYLATE 5 MG TABLET PO SCH (11:18)
[2018-09-09] MEDS: FOLIC ACID 1 MG TABLET PO SCH (11:18)
[2018-09-09] MEDS: AMITRIPTYLINE HCL 25 MG TABLET PO SCH (11:18)
[2018-09-09] MEDS: ENOXAPARIN SODIUM INJ 40 MG/0.4 ML DISP.SYRIN SUBCUT SCH (11:20)
[2018-09-09] MEDS: HYDROXYUREA 500 MG CAPSULE PO SCH (11:31)
[2018-09-09] MEDS: NORMAL SALINE 10 ML SDV (SCHEDULED) IV SCH ×2 (11:32→22:08)
--- NOTE | 2018-09-09 14:09 | PDOC PROGRESS REPORT ---
Subjective Progress Note for:: 09/09/18 Subjective:: This is a 28 year old female with no significant past medical history aside from sickle cell disease diagnosed during childhood who was admitted 09/04/18 for sickle cell crisis. The patient was seen this morning on rounds, she is resting in bed on supplemental O2 via nasal cannula. She endorses severe generalized pain, states she talked to Dr. Philip this morning about increasing her pain medication. The patient has no other complaints at this time. She states she wants to go home but wants her pain to be controlled so she "doesn't bounce right back to the hospital." Discussed patient's case with Dr. Philip, he increased her dilaudid dosage this morning. Discontinued her oxycodone. The patient's Hgb has increased to 7.5 following her 1 U PRBC transfusion yesterday. Likely discharge home in 24-48 hours. Reason For Visit: SICKLE CELL CRISIS Physical Exam Vital Signs: Temp Pulse Resp BP Pulse Ox 98.3 F 103 H 18 149/82 H 96 09/09/18 11:19 09/09/18 11:19 09/09/18 11:19 09/09/18 11:19 09/09/18 11:19 Intake & Output 09/08/18 09/09/18 09/10/18 06:59 06:59 06:59 Intake Total 4538 5483 Output Total 1400 2875 Balance 3138 2608 Weight 61.5 kg 61.5 kg General appearance: PRESENT: no acute distress Eye exam: PRESENT: conjunctiva pink, PERRLA Mouth exam: PRESENT: moist, tongue midline Neck exam: PRESENT: full ROM Respiratory exam: PRESENT: clear to auscultation william, symmetrical, unlabored Cardiovascular exam: PRESENT: RRR, +S1, +S2 Pulses: PRESENT: normal radial pulses, normal dorsalis pedis pul GI/Abdominal exam: ABSENT: distended Rectal exam: PRESENT: deferred Extremities exam: PRESENT: full ROM. ABSENT: pedal edema Musculoskeletal exam: PRESENT: full ROM Neurological exam: PRESENT: alert, awake, oriented to person, oriented to place, oriented to time, oriented to situation Psychiatric exam: PRESENT: appropriate affect Skin exam: PRESENT: dry, intact, normal color Results Laboratory Results: 09/09/18 04:10 09/09/18 04:10 09/08/18 09/09/18 09/09/18 17:31 04:10 04:10 WBC 6.4 7.2 RBC 2.10 L 2.43 L Hgb 6.7 L 7.6 L Hct 17.8 L 20.5 L MCV 85 84 MCH 32.1 31.4 MCHC 37.9 H 37.2 H RDW 25.1 H 24.4 H Plt Count 246 287 Seg Neutrophils % 43.7 50.0 Lymphocytes % 42.7 38.8 Monocytes % 10.5 8.0 Eosinophils % 1.8 2.5 Basophils % 1.3 0.7 Absolute Neutrophils 2.8 3.6 Absolute Lymphocytes 2.7 2.8 Absolute Monocytes 0.7 0.6 Absolute Eosinophils 0.1 0.2 Absolute Basophils 0.1 0.1 Retic Count (auto) 2.19 Absolute Retic 0.053 Sodium 139.9 Potassium 4.0 Chloride 106 Carbon Dioxide 27 Anion Gap 7 BUN 4 L Creatinine 0.53 Est GFR ( Amer) > 60 Est GFR (Non-Af Amer) > 60 Glucose 81 Calcium 8.9 Total Bilirubin 2.6 H AST 63 H ALT 35 Alkaline Phosphatase 66 Total Protein 6.4 Albumin 4.0 Impressions: Guidance Fluoroscopy 09/04/18 00:00 IMPRESSION: SUCCESSFUL PLACEMENT OF A 5 FR DUAL LUMEN 38 CM PICC IN THE LEFT BASILIC VEIN. Interventional Vascular Procedure 09/04/18 00:00 IMPRESSION: SUCCESSFUL PLACEMENT OF A 5 FR DUAL LUMEN 38 CM PICC IN THE LEFT BASILIC VEIN. PICC Line Insertion 09/04/18 00:00 IMPRESSION: SUCCESSFUL PLACEMENT OF A 5 FR DUAL LUMEN 38 CM PICC IN THE LEFT BASILIC VEIN. Status: Imported from PACS Assessment & Plan - Diagnosis (1) Sickle cell anemia Qualifiers: Sickle-cell associated disorders: with unspecified crisis Qualified Code(s): D57.00 - Hb-SS disease with crisis, unspecified; D57.0 - Hb-SS disease with crisis Is this a current diagnosis for this admission?: Yes Plan: Patient reports continued severe pain. Hemoglobin increased to 7.6; now s/p 1U PRBC yesterday. Retic count is down, however, LDH and total bili are unchanged today. Hematology is consulted; appreciate Dr. Cornelius's assistance. Pain management per hematology; they have discontinued her oral analgesics and increased her Dilaudid again today. Continue home dose hydroxyurea. Continue home dose of amitriptyline. Benadryl and antiemetics as needed. Lidoderm patch (patient reports menstrual cramps related back pain; may provide some therapeutic effect) K pad Supplemental oxygen as needed to maintain oxygen saturations greater than 90% IV fluid hydration - NS @ 150mL/hr Folic acid supplementation. (2) Acute on chronic anemia Is this a current diagnosis for this admission?: Yes - Lethargic Plan: Secondary to acute sickle cell crisis. Baseline hemoglobin ~ 8.0. Now status post 3 (total) units PRBC. Continue to monitor and transfuse as needed for hemoglobin less than 7. (3) Hypertension Qualifiers: Hypertension type: essential hypertension Qualified Code(s): I10 - Essential (primary) hypertension Is this a current diagnosis for this admission?: Yes Plan: Normotensive today. Continue home dose amlodipine (4) Opiate dependence Is this a current diagnosis for this admission?: Yes Plan: Secondary to chronic sickle cell pain. Pain management as above. - Time Time Spent with patient: 15-24 minutes Medications reviewed and adjusted accordingly: Yes Anticipated discharge: Home Within: within 24 hours - Inpatient Certification Based on my medical assessment, after consideration of the patient's comorbidities, presenting symptoms, or acuity I expect that the services needed warrant INPATIENT care.: Yes I certify that my determination is in accordance with my understanding of Medicare's requirements for reasonable and necessary INPATIENT services [42 CFR 412.3e].: Yes Medical Necessity: Need for Pain Control, Risk of Complication if Not Cared For in Hospital
[2018-09-09] MEDS: CETIRIZINE 10 MG TABLET PO SCH (22:06)
[2018-09-09] MEDS: AMITRIPTYLINE HCL 50 MG TABLET PO SCH (22:06)
[2018-09-09] MEDS: ZOLPIDEM TARTRATE 5 MG TABLET PO PRN (22:06)
[2018-09-10] MEDS: HYDROMORPHONE HCL INJ/PF 2 MG/ML AMPULE IV PRN ×10 (00:17→22:12)
[2018-09-10] MEDS: DIPHENHYDRAMINE HCL 50 MG/ML VIAL IV PRN ×5 (04:18→22:06)
[2018-09-10] MEDS: NORMAL SALINE 1000 ML 1,000 ML IV PRN ×3 (04:18→18:01)
[2018-09-10] MEDS: ONDANSETRON HCL INJ/PF 4 MG/2 ML SDV IV PRN ×5 (04:18→22:06)
[2018-09-10 05:12] LABS: ALANINE AMINOTRANSFERASE 26 U/L (9-52); ALKALINE PHOSPHATASE 62 U/L (38-126); ANION GAP 7 (5-19); ASPARTATE AMINO TRANSFERASE 57 U/L (14-36); BILIRUBIN,DIRECT 0.4 mg/dL (0.0-0.4); BILIRUBIN,TOTAL 2.7 mg/dL (0.2-1.3); BLOOD UREA NITROGEN 2 mg/dL (7-20); CALCIUM 8.7 mg/dL (8.4-10.2); CARBON DIOXIDE 26 mmol/L (22-30); CHLORIDE 108 mmol/L (98-107); GLUCOSE 85 mg/dL (75-110); POTASSIUM 3.9 mmol/L (3.6-5.0); SODIUM 141.4 mmol/L (137-145); TOTAL PROTEIN 6.3 g/dL (6.3-8.2)
[2018-09-10 05:24] LABS: HEMATOCRIT 19.4 % (36.0-47.0); MEAN CORPUSCULAR HEMOGLOBIN 31.5 pg (27.0-33.4); MEAN CORPUSCULAR VOLUME 84 fl (80-97); PLATELET COUNT 256 10^3/uL (150-450); RED BLOOD COUNT 2.31 10^6/uL (3.72-5.28); RED CELL DISTRIBUTION WIDTH 25.2 % (11.5-14.0); WHITE BLOOD COUNT 8.1 10^3/uL (4.0-10.5)
[2018-09-10 05:28] LABS: MEAN CORPUSCULAR HGB CONC 37.4 g/dL (32.0-36.0)
[2018-09-10 05:39] LABS: ABSOLUTE LYMPHOCYTES# (MANUAL) 3.2 10^3/uL (0.5-4.7); ABSOLUTE MONOCYTES # (MANUAL) 0.8 10^3/uL (0.1-1.4); ABSOLUTE NEUTROPHILS# (MANUAL) 3.9 10^3/uL (1.7-8.2); BAND NEUTROPHILS % (MANUAL) 1 % (3-5); BASOPHILS % (MANUAL) 0 % (0-2); EOSINOPHILS % (MANUAL) 2 % (0-6); LYMPHOCYTES % (MANUAL) 38 % (13-45); MONOCYTES % (MANUAL) 10 % (3-13); NUCLEATED RED BLOOD CELLS 2 /100 WBC (0); SEGMENTED NEUTROPHILS % (MAN) 47 % (42-78); TOTAL CELLS COUNTED 100
[2018-09-10 05:45] LABS: ANISOCYTOSIS 3+; BURR CELLS SLIGHT; HYPOCHROMASIA 1+; POIKILOCYTOSIS 3+; POLYCHROMASIA 1+; SICKLE RED CELLS 3+; STOMATOCYTES 2+; TOXIC GRANULATION 1+
[2018-09-10 05:46] LABS: PLATELET COMMENT ADEQUATE
[2018-09-10 05:50] LABS: HEMOGLOBIN 7.3 g/dL (12.0-15.5)
[2018-09-10 07:34] LABS: ABSOLUTE RETICS # 0.106 10^6/uL (0.028-0.122)
[2018-09-10 07:37] LABS: RETICULOCYTE COUNT (AUTO) 4.51 % (0.66-2.85)
--- NOTE | 2018-09-10 09:07 | PDOC PROGRESS REPORT ---
Subjective Progress Note for:: 09/10/18 Subjective:: Patient still having quite a bit of pain this morning, does not feel ready to go home, tearful this morning. Reason For Visit: SICKLE CELL CRISIS Physical Exam Vital Signs: Temp Pulse Resp BP Pulse Ox 98.1 F 123 H 18 129/82 H 95 09/09/18 23:41 09/09/18 23:41 09/09/18 23:41 09/09/18 23:41 09/09/18 23:41 Intake & Output 09/09/18 09/10/18 09/11/18 06:59 06:59 06:59 Intake Total 5483 4857 Output Total 2875 2600 Balance 2608 2257 Weight 61.5 kg 61.5 kg General appearance: PRESENT: no acute distress, well-developed, well-nourished Head exam: PRESENT: atraumatic, normocephalic Eye exam: PRESENT: conjunctiva pink, EOMI, PERRLA. ABSENT: scleral icterus Ear exam: PRESENT: normal external ear exam Mouth exam: PRESENT: moist, tongue midline Neck exam: ABSENT: carotid bruit, JVD, lymphadenopathy, thyromegaly Respiratory exam: PRESENT: clear to auscultation william. ABSENT: rales, rhonchi, wheezes Cardiovascular exam: PRESENT: RRR. ABSENT: diastolic murmur, rubs, systolic murmur Pulses: PRESENT: normal dorsalis pedis pul Vascular exam: PRESENT: normal capillary refill GI/Abdominal exam: PRESENT: normal bowel sounds, soft. ABSENT: distended, guarding, mass, organolmegaly, rebound, tenderness Rectal exam: PRESENT: deferred Extremities exam: PRESENT: full ROM. ABSENT: calf tenderness, clubbing, pedal edema Neurological exam: PRESENT: alert, awake, oriented to person, oriented to place, oriented to time, oriented to situation, CN II-XII grossly intact. ABSENT: motor sensory deficit Psychiatric exam: PRESENT: appropriate affect, normal mood. ABSENT: homicidal ideation, suicidal ideation Skin exam: PRESENT: dry, intact, warm. ABSENT: cyanosis, rash Results Laboratory Results: 09/10/18 04:25 09/10/18 04:25 09/10/18 09/10/18 09/10/18 04:25 04:25 04:25 WBC 8.1 RBC 2.31 L Hgb 7.3 L Hct 19.4 L MCV 84 MCH 31.5 MCHC 37.4 H RDW 25.2 H Plt Count 256 Seg Neutrophils % Not Reportable Lymphocytes % Not Reportable Monocytes % Not Reportable Eosinophils % Not Reportable Basophils % Not Reportable Absolute Neutrophils Not Reportable Absolute Lymphocytes Not Reportable Absolute Monocytes Not Reportable Absolute Eosinophils Not Reportable Absolute Basophils Not Reportable Retic Count (auto) 4.51 H D Absolute Retic 0.106 Sodium 141.4 Potassium 3.9 Chloride 108 H Carbon Dioxide 26 Anion Gap 7 BUN 2 L Creatinine 0.51 L Est GFR ( Amer) > 60 Est GFR (Non-Af Amer) > 60 Glucose 85 Calcium 8.7 Total Bilirubin 2.7 H AST 57 H ALT 26 Alkaline Phosphatase 62 Total Protein 6.3 Albumin 4.0 Impressions: Guidance Fluoroscopy 09/04/18 00:00 IMPRESSION: SUCCESSFUL PLACEMENT OF A 5 FR DUAL LUMEN 38 CM PICC IN THE LEFT BASILIC VEIN. Interventional Vascular Procedure 09/04/18 00:00 IMPRESSION: SUCCESSFUL PLACEMENT OF A 5 FR DUAL LUMEN 38 CM PICC IN THE LEFT BASILIC VEIN. PICC Line Insertion 09/04/18 00:00 IMPRESSION: SUCCESSFUL PLACEMENT OF A 5 FR DUAL LUMEN 38 CM PICC IN THE LEFT BASILIC VEIN. Assessment & Plan - Diagnosis (1) Sickle cell pain crisis Is this a current diagnosis for this admission?: Yes Plan: Ongoing, continue with IV fluids and supportive measures, increased Dilaudid again today. 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 Hemolytic anemia type: other hemoglobinopathy Qualified Code(s): D58.2 - Other hemoglobinopathies Is this a current diagnosis for this admission?: Yes Plan: Hemoglobin has dropped, but we will wait for it to get under 7 to transfuse. - Time Time Spent with patient: 35 or more minutes Disposition: Continue with current approach for the next 48-72 hours most likely. Still having considerable pain crisis, not ready to go home. - Inpatient Certification Based on my medical assessment, after consideration of the patient's comorb idities, presenting symptoms, or acuity I expect that the services needed warrant INPATIENT care.: Yes I certify that my determination is in accordance with my understanding of Medicare's requirements for reasonable and necessary INPATIENT services [42 CFR 412.3e].: Yes Medical Necessity: Need For IV Fluids, Need for Pain Control
[2018-09-10] MEDS: FOLIC ACID 1 MG TABLET PO SCH (10:38)
[2018-09-10] MEDS: AMLODIPINE BESYLATE 5 MG TABLET PO SCH (10:38)
[2018-09-10] MEDS: AMITRIPTYLINE HCL 25 MG TABLET PO SCH (10:39)
[2018-09-10] MEDS: HYDROXYUREA 500 MG CAPSULE PO SCH (10:55)
[2018-09-10] MEDS: NORMAL SALINE 10 ML SDV (SCHEDULED) IV SCH ×2 (10:57→23:30)
[2018-09-10] MEDS: ENOXAPARIN SODIUM INJ 40 MG/0.4 ML DISP.SYRIN SUBCUT SCH (11:00)
--- NOTE | 2018-09-10 16:20 | PDOC PROGRESS REPORT ---
Subjective Progress Note for:: 09/10/18 Subjective:: This is a 28 year old female with no significant past medical history aside from sickle cell disease diagnosed during childhood who was admitted 09/04/18 for sickle cell crisis. The patient was seen this morning on rounds, she is resting in bed on supplemental O2 via nasal cannula. She endorses severe generalized pain, states she talked to Dr. Philip this morning about increasing her pain medication again. The patient has no other complaints at this time. Of note, reticulocyte count increased today 2.1->4.5 Dr. Philip increased dilaudid dosage again this morning. Likely discharge home in 24-48 hours. Reason For Visit: SICKLE CELL CRISIS Physical Exam Vital Signs: Temp Pulse Resp BP Pulse Ox 98.2 F 110 H 19 136/88 H 92 09/10/18 12:05 09/10/18 12:05 09/10/18 12:05 09/10/18 12:05 09/10/18 12:05 Intake & Output 09/09/18 09/10/18 09/11/18 06:59 06:59 06:59 Intake Total 5483 4857 1000 Output Total 2875 2600 Balance 2608 2257 1000 Weight 61.5 kg 61.5 kg 61.5 kg General appearance: PRESENT: no acute distress, well-developed, well-nourished Eye exam: PRESENT: conjunctiva pink, PERRLA Mouth exam: PRESENT: moist, tongue midline Neck exam: PRESENT: full ROM Respiratory exam: PRESENT: clear to auscultation william, symmetrical, unlabored Cardiovascular exam: PRESENT: RRR Pulses: PRESENT: normal radial pulses, normal dorsalis pedis pul Vascular exam: PRESENT: normal capillary refill GI/Abdominal exam: PRESENT: normal bowel sounds, soft. ABSENT: distended, tenderness Rectal exam: PRESENT: deferred Extremities exam: PRESENT: full ROM. ABSENT: pedal edema Musculoskeletal exam: PRESENT: ambulatory, full ROM Neurological exam: PRESENT: alert, awake, oriented to person, oriented to place, oriented to time, oriented to situation Psychiatric exam: PRESENT: appropriate affect Skin exam: PRESENT: dry, intact, normal color Results Laboratory Results: 09/10/18 04:25 09/10/18 04:25 09/10/18 09/10/18 09/10/18 04:25 04:25 04:25 WBC 8.1 RBC 2.31 L Hgb 7.3 L Hct 19.4 L MCV 84 MCH 31.5 MCHC 37.4 H RDW 25.2 H Plt Count 256 Seg Neutrophils % Not Reportable Lymphocytes % Not Reportable Monocytes % Not Reportable Eosinophils % Not Reportable Basophils % Not Reportable Absolute Neutrophils Not Reportable Absolute Lymphocytes Not Reportable Absolute Monocytes Not Reportable Absolute Eosinophils Not Reportable Absolute Basophils Not Reportable Retic Count (auto) 4.51 H D Absolute Retic 0.106 Sodium 141.4 Potassium 3.9 Chloride 108 H Carbon Dioxide 26 Anion Gap 7 BUN 2 L Creatinine 0.51 L Est GFR ( Amer) > 60 Est GFR (Non-Af Amer) > 60 Glucose 85 Calcium 8.7 Total Bilirubin 2.7 H AST 57 H ALT 26 Alkaline Phosphatase 62 Total Protein 6.3 Albumin 4.0 Impressions: Guidance Fluoroscopy 09/04/18 00:00 IMPRESSION: SUCCESSFUL PLACEMENT OF A 5 FR DUAL LUMEN 38 CM PICC IN THE LEFT BASILIC VEIN. Interventional Vascular Procedure 09/04/18 00:00 IMPRESSION: SUCCESSFUL PLACEMENT OF A 5 FR DUAL LUMEN 38 CM PICC IN THE LEFT BASILIC VEIN. PICC Line Insertion 09/04/18 00:00 IMPRESSION: SUCCESSFUL PLACEMENT OF A 5 FR DUAL LUMEN 38 CM PICC IN THE LEFT BASILIC VEIN. Status: Imported from PACS Assessment & Plan - Diagnosis (1) Sickle cell anemia Qualifiers: Sickle-cell associated disorders: with unspecified crisis Qualified Code(s): D57.00 - Hb-SS disease with crisis, unspecified; D57.0 - Hb-SS disease with crisis Is this a current diagnosis for this admission?: Yes Plan: Patient reports continued severe pain. Hemoglobin increased to 7.3 Retic count is up however, LDH and total bili are unchanged Hematology is consulted; appreciate Dr. Cornelius's assistance. Pain management per hematology; they have discontinued her oral analgesics and increased her Dilaudid again today. Continue home dose hydroxyurea. Continue home dose of amitriptyline. Benadryl and antiemetics as needed. Lidoderm patch (patient reports menstrual cramps related back pain; may provide some therapeutic effect) K pad Supplemental oxygen as needed to maintain oxygen saturations greater than 90% IV fluid hydration - NS @ 150mL/hr Folic acid supplementation. (2) Acute on chronic anemia Is this a current diagnosis for this admission?: Yes - Lethargic Plan: Stabilized today. Hgb 7.3 Secondary to acute sickle cell crisis. Baseline hemoglobin ~ 8.0. Now status post 3 (total) units PRBC. Will transfuse if Hgb drops below 7 Continue to monitor and transfuse as needed for hemoglobin less than 7. (3) Hypertension Qualifiers: Hypertension type: essential hypertension Qualified Code(s): I10 - Essential (primary) hypertension Is this a current diagnosis for this admission?: Yes Plan: Normotensive today. Continue home dose amlodipine (4) Opiate dependence Is this a current diagnosis for this admission?: Yes Plan: Secondary to chronic sickle cell pain. Pain management as above. - Time Time Spent with patient: 15-24 minutes Medications reviewed and adjusted accordingly: Yes Anticipated discharge: Home - Inpatient Certification Based on my medical assessment, after consideration of the patient's comorbidities, presenting symptoms, or acuity I expect that the services needed warrant INPATIENT care.: Yes I certify that my determination is in accordance with my understanding of Medicare's requirements for reasonable and necessary INPATIENT services [42 CFR 412.3e].: Yes Medical Necessity: Need for Pain Control, Risk of Complication if Not Cared For in Hospital
[2018-09-10] MEDS: FLUTICASONE NASAL SPRAY 50 MCG/SPRY 120 SPRAY/16 GM NASL SCH (17:23)
[2018-09-10] MEDS: AMITRIPTYLINE HCL 50 MG TABLET PO SCH (22:06)
[2018-09-10] MEDS: CETIRIZINE 10 MG TABLET PO SCH (22:06)
[2018-09-10] MEDS ORDERED: BISACODYL 10 MG SUPP.RECT PR PRN (22:53)
[2018-09-10] MEDS ORDERED: MAGNESIUM HYDROXIDE SUSP 30 ML UDCUP PO PRN (22:53)
[2018-09-11] MEDS: HYDROMORPHONE HCL INJ/PF 2 MG/ML AMPULE IV PRN ×11 (00:12→23:08)
[2018-09-11] MEDS: NORMAL SALINE 1000 ML 1,000 ML IV PRN ×4 (00:29→23:15)
[2018-09-11] MEDS: DIPHENHYDRAMINE HCL 50 MG/ML VIAL IV PRN ×6 (02:24→23:07)
[2018-09-11] MEDS: ONDANSETRON HCL INJ/PF 4 MG/2 ML SDV IV PRN ×6 (02:25→23:07)
[2018-09-11] MEDS: FLUTICASONE NASAL SPRAY 50 MCG/SPRY 120 SPRAY/16 GM NASL SCH ×2 (06:35→18:58)
[2018-09-11 06:47] LABS: ABSOLUTE RETICS # 0.144 10^6/uL (0.028-0.122); HEMATOCRIT 18.9 % (36.0-47.0); MEAN CORPUSCULAR HEMOGLOBIN 32.7 pg (27.0-33.4); MEAN CORPUSCULAR VOLUME 86 fl (80-97); PLATELET COUNT 268 10^3/uL (150-450); RED BLOOD COUNT 2.18 10^6/uL (3.72-5.28); RED CELL DISTRIBUTION WIDTH 25.4 % (11.5-14.0); RETICULOCYTE COUNT (AUTO) 6.59 % (0.66-2.85)
--- NOTE | 2018-09-11 08:10 | PDOC PROGRESS REPORT ---
Subjective Progress Note for:: 09/11/18 Subjective:: Patient feels like she had a good pain control day yesterday, was sleeping this morning, will arouse appropriately for morning discussion Reason For Visit: SICKLE CELL CRISIS Physical Exam Vital Signs: Temp Pulse Resp BP Pulse Ox 98.4 F 100 16 115/79 92 09/11/18 07:19 09/11/18 07:19 09/11/18 07:19 09/11/18 07:19 09/11/18 07:37 Intake & Output 09/10/18 09/11/18 09/12/18 06:59 06:59 06:59 Intake Total 4857 5014 Output Total 2600 3400 Balance 2257 1614 Weight 61.5 kg 61.2 kg General appearance: PRESENT: no acute distress, well-developed, well-nourished Head exam: PRESENT: atraumatic, normocephalic Eye exam: PRESENT: conjunctiva pink, EOMI, PERRLA. ABSENT: scleral icterus Ear exam: PRESENT: normal external ear exam Mouth exam: PRESENT: moist, tongue midline Neck exam: ABSENT: carotid bruit, JVD, lymphadenopathy, thyromegaly Respiratory exam: PRESENT: clear to auscultation william. ABSENT: rales, rhonchi, wheezes Cardiovascular exam: PRESENT: RRR. ABSENT: diastolic murmur, rubs, systolic murmur Pulses: PRESENT: normal dorsalis pedis pul Vascular exam: PRESENT: normal capillary refill GI/Abdominal exam: PRESENT: normal bowel sounds, soft. ABSENT: distended, guarding, mass, organolmegaly, rebound, tenderness Rectal exam: PRESENT: deferred Extremities exam: PRESENT: full ROM. ABSENT: calf tenderness, clubbing, pedal edema Neurological exam: PRESENT: alert, awake, oriented to person, oriented to place, oriented to time, oriented to situation, CN II-XII grossly intact. ABSENT: motor sensory deficit Psychiatric exam: PRESENT: appropriate affect, normal mood. ABSENT: homicidal ideation, suicidal ideation Skin exam: PRESENT: dry, intact, warm. ABSENT: cyanosis, rash Results Laboratory Results: 09/10/18 04:25 Impressions: Guidance Fluoroscopy 09/04/18 00:00 IMPRESSION: SUCCESSFUL PLACEMENT OF A 5 FR DUAL LUMEN 38 CM PICC IN THE LEFT BASILIC VEIN. Interventional Vascular Procedure 09/04/18 00:00 IMPRESSION: SUCCESSFUL PLACEMENT OF A 5 FR DUAL LUMEN 38 CM PICC IN THE LEFT BASILIC VEIN. PICC Line Insertion 09/04/18 00:00 IMPRESSION: SUCCESSFUL PLACEMENT OF A 5 FR DUAL LUMEN 38 CM PICC IN THE LEFT BASILIC VEIN. Assessment & Plan - Diagnosis (1) Sickle cell pain crisis Is this a current diagnosis for this admission?: Yes Plan: Finally improving, continue current level of pain control today, will follow closely. Continue with current supportive measures. 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 Hemolytic anemia type: other hemoglobinopathy Qualified Code(s): D58.2 - Other hemoglobinopathies Is this a current diagnosis for this admission?: Yes Plan: Follow-up CBC, may need transfusion in the next 1-2 days. - Time Time Spent with patient: 35 or more minutes - Inpatient Certification Based on my medical assessment, after consideration of the patient's comorbidities, presenting symptoms, or acuity I expect that the services needed warrant INPATIENT care.: Yes I certify that my determination is in accordance with my understanding of Medicare's requirements for reasonable and necessary INPATIENT services [42 CFR 412.3e].: Yes Medical Necessity: Need For IV Fluids, Need for Pain Control
[2018-09-11 08:15] LABS: MEAN CORPUSCULAR HGB CONC 37.8 g/dL (32.0-36.0)
[2018-09-11] MEDS: AMITRIPTYLINE HCL 25 MG TABLET PO SCH (08:33)
[2018-09-11 08:41] LABS: HEMOGLOBIN 7.1 g/dL (12.0-15.5)
[2018-09-11] MEDS: SENNOSIDES/DOCUSATE 8.6-50 MG 1 EACH TABLET PO SCH ×2 (10:32→18:58)
[2018-09-11] MEDS: AMLODIPINE BESYLATE 5 MG TABLET PO SCH (10:33)
[2018-09-11] MEDS: ENOXAPARIN SODIUM INJ 40 MG/0.4 ML DISP.SYRIN SUBCUT SCH (10:33)
[2018-09-11] MEDS: FOLIC ACID 1 MG TABLET PO SCH (10:33)
[2018-09-11] MEDS: NORMAL SALINE 10 ML SDV (SCHEDULED) IV SCH ×2 (10:34→22:00)
[2018-09-11] MEDS: HYDROXYUREA 500 MG CAPSULE PO SCH (10:53)
--- NOTE | 2018-09-11 17:03 | PDOC PROGRESS REPORT ---
Subjective Progress Note for:: 09/11/18 Subjective:: This is a 28 year old female with no significant past medical history aside from sickle cell disease diagnosed during childhood who was admitted 09/04/18 for sickle cell crisis. The patient was seen this morning on rounds, she is resting in bed on supplemental O2 via nasal cannula. She endorses generalized pain, worse in her back. Of note, reticulocyte count increased again today 2.1->4.5->6.59 Dr. Philip is consulted, managing pain regimen. Likely discharge home in 24-48 hours. Reason For Visit: SICKLE CELL CRISIS Physical Exam Vital Signs: Temp Pulse Resp BP Pulse Ox 98.3 F 81 16 135/66 H 97 09/11/18 15:03 09/11/18 15:03 09/11/18 15:03 09/11/18 15:03 09/11/18 15:03 Intake & Output 09/10/18 09/11/18 09/12/18 06:59 06:59 06:59 Intake Total 4857 5014 1999 Output Total 2600 3400 Balance 2257 1614 1999 Weight 61.5 kg 61.2 kg General appearance: PRESENT: no acute distress, well-developed, well-nourished Eye exam: PRESENT: conjunctiva pink, PERRLA Mouth exam: PRESENT: moist, tongue midline Neck exam: PRESENT: full ROM Respiratory exam: PRESENT: clear to auscultation william, symmetrical, unlabored Cardiovascular exam: PRESENT: RRR Pulses: PRESENT: normal radial pulses, normal dorsalis pedis pul GI/Abdominal exam: PRESENT: soft. ABSENT: distended, tenderness Rectal exam: PRESENT: deferred Extremities exam: PRESENT: full ROM. ABSENT: pedal edema Musculoskeletal exam: PRESENT: ambulatory, full ROM, normal inspection Neurological exam: PRESENT: alert, awake, oriented to person, oriented to place, oriented to time, oriented to situation Psychiatric exam: PRESENT: appropriate affect Skin exam: PRESENT: dry, intact, normal color Results Laboratory Results: 09/11/18 05:45 09/10/18 04:25 09/11/18 05:45 WBC 7.8 RBC 2.18 L Hgb 7.1 L Hct 18.9 L MCV 86 MCH 32.7 MCHC 37.8 H RDW 25.4 H Plt Count 268 Retic Count (auto) 6.59 H Absolute Retic 0.144 H Impressions: Guidance Fluoroscopy 09/04/18 00:00 IMPRESSION: SUCCESSFUL PLACEMENT OF A 5 FR DUAL LUMEN 38 CM PICC IN THE LEFT BASILIC VEIN. Interventional Vascular Procedure 09/04/18 00:00 IMPRESSION: SUCCESSFUL PLACEMENT OF A 5 FR DUAL LUMEN 38 CM PICC IN THE LEFT BASILIC VEIN. PICC Line Insertion 09/04/18 00:00 IMPRESSION: SUCCESSFUL PLACEMENT OF A 5 FR DUAL LUMEN 38 CM PICC IN THE LEFT BASILIC VEIN. Status: Imported from PACS Assessment & Plan - Diagnosis (1) Sickle cell anemia Qualifiers: Sickle-cell associated disorders: with unspecified crisis Qualified Code(s): D57.00 - Hb-SS disease with crisis, unspecified; D57.0 - Hb-SS disease with crisis Is this a current diagnosis for this admission?: Yes Plan: Patient reports continued severe pain. Hemoglobin decreased to 7.1 Retic count is up however, LDH and total bili are unchanged Hematology is consulted; appreciate Dr. Cornelius's assistance. Pain management per hematology; they have discontinued her oral analgesics and increased her Dilaudid again today. Continue home dose hydroxyurea. Continue home dose of amitriptyline. Benadryl and antiemetics as needed. Lidoderm patch (patient reports menstrual cramps related back pain; may provide some therapeutic effect) K pad Supplemental oxygen as needed to maintain oxygen saturations greater than 90% - patient has to be reminded frequently to wear O2 IV fluid hydration - NS @ 150mL/hr Folic acid supplementation. (2) Acute on chronic anemia Is this a current diagnosis for this admission?: Yes - Lethargic Plan: Hgb decreased to 7.1 today Secondary to acute sickle cell crisis. Baseline hemoglobin ~ 8.0. Now status post 3 (total) units PRBC. Will transfuse if Hgb drops below 7 Continue to monitor and transfuse as needed for hemoglobin less than 7. (3) Hypertension Qualifiers: Hypertension type: essential hypertension Qualified Code(s): I10 - Essential (primary) hypertension Is this a current diagnosis for this admission?: Yes Plan: Normotensive today. Continue home dose amlodipine (4) Opiate dependence Is this a current diagnosis for this admission?: Yes Plan: Secondary to chronic sickle cell pain. Pain management as above. - Time Time Spent with patient: 15-24 minutes Medications reviewed and adjusted accordingly: Yes Anticipated discharge: Home Within: within 24 hours, within 48 hours - Inpatient Certification Based on my medical assessment, after consideration of the patient's comorbidities, presenting symptoms, or acuity I expect that the services needed warrant INPATIENT care.: Yes I certify that my determination is in accordance with my understanding of Medicare's requirements for reasonable and necessary INPATIENT services [42 CFR 412.3e].: Yes Medical Necessity: Need for Pain Control
[2018-09-11] MEDS: AMITRIPTYLINE HCL 50 MG TABLET PO SCH (21:07)
[2018-09-11] MEDS: CETIRIZINE 10 MG TABLET PO SCH (23:10)
[2018-09-12] MEDS: HYDROMORPHONE HCL INJ/PF 2 MG/ML AMPULE IV PRN ×8 (01:08→21:57)
[2018-09-12] MEDS: DIPHENHYDRAMINE HCL 50 MG/ML VIAL IV PRN ×4 (03:13→21:56)
[2018-09-12] MEDS: ONDANSETRON HCL INJ/PF 4 MG/2 ML SDV IV PRN ×4 (03:13→21:57)
[2018-09-12] MEDS: NORMAL SALINE 1000 ML 1,000 ML IV PRN ×4 (05:22→19:40)
[2018-09-12] MEDS: FLUTICASONE NASAL SPRAY 50 MCG/SPRY 120 SPRAY/16 GM NASL SCH ×2 (05:22→17:18)
[2018-09-12] MEDS: AMITRIPTYLINE HCL 25 MG TABLET PO SCH (07:53)
--- NOTE | 2018-09-12 09:10 | PDOC PROGRESS REPORT ---
Subjective Progress Note for:: 09/12/18 Subjective:: Feeling better, still w/ pain but getting better Reason For Visit: SICKLE CELL CRISIS Physical Exam Vital Signs: Temp Pulse Resp BP Pulse Ox 98.4 F 89 12 122/63 97 09/12/18 07:43 09/12/18 07:43 09/12/18 07:43 09/12/18 07:43 09/12/18 07:43 Intake & Output 09/11/18 09/12/18 09/13/18 06:59 06:59 06:59 Intake Total 5014 5387 Output Total 3400 1700 Balance 1614 5297 Weight 61.2 kg 62.5 kg General appearance: PRESENT: no acute distress, well-developed, well-nourished Head exam: PRESENT: atraumatic, normocephalic Eye exam: PRESENT: conjunctiva pink, EOMI, PERRLA. ABSENT: scleral icterus Ear exam: PRESENT: normal external ear exam Mouth exam: PRESENT: moist, tongue midline Neck exam: ABSENT: carotid bruit, JVD, lymphadenopathy, thyromegaly Respiratory exam: PRESENT: clear to auscultation william. ABSENT: rales, rhonchi, wheezes Cardiovascular exam: PRESENT: RRR. ABSENT: diastolic murmur, rubs, systolic murmur Pulses: PRESENT: normal dorsalis pedis pul Vascular exam: PRESENT: normal capillary refill GI/Abdominal exam: PRESENT: normal bowel sounds, soft. ABSENT: distended, guarding, mass, organolmegaly, rebound, tenderness Rectal exam: PRESENT: deferred Extremities exam: PRESENT: full ROM. ABSENT: calf tenderness, clubbing, pedal edema Neurological exam: PRESENT: alert, awake, oriented to person, oriented to place, oriented to time, oriented to situation, CN II-XII grossly intact. ABSENT: motor sensory deficit Psychiatric exam: PRESENT: appropriate affect, normal mood. ABSENT: homicidal ideation, suicidal ideation Skin exam: PRESENT: dry, intact, warm. ABSENT: cyanosis, rash Results Laboratory Results: 09/11/18 05:45 09/10/18 04:25 Impressions: Guidance Fluoroscopy 09/04/18 00:00 IMPRESSION: SUCCESSFUL PLACEMENT OF A 5 FR DUAL LUMEN 38 CM PICC IN THE LEFT BASILIC VEIN. Interventional Vascular Procedure 09/04/18 00:00 IMPRESSION: SUCCESSFUL PLACEMENT OF A 5 FR DUAL LUMEN 38 CM PICC IN THE LEFT BASILIC VEIN. PICC Line Insertion 09/04/18 00:00 IMPRESSION: SUCCESSFUL PLACEMENT OF A 5 FR DUAL LUMEN 38 CM PICC IN THE LEFT BASILIC VEIN. Assessment & Plan - Diagnosis (1) Sickle cell pain crisis Is this a current diagnosis for this admission?: Yes Plan: Improving, plan another 24 hr IV pain control, will readdress in am. 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 Hemolytic anemia type: other hemoglobinopathy Qualified Code(s): D58.2 - Other hemoglobinopathies Is this a current diagnosis for this admission?: Yes Plan: hb down to 7.1, may benefit from transfusion tomorrow. will follow
[2018-09-12] MEDS ORDERED: NA PHOS,M-B/NA PHOS,DI-BA (ADULT) 133 ML ENEMA PR ONE (10:00)
[2018-09-12] MEDS: AMLODIPINE BESYLATE 5 MG TABLET PO SCH (11:59)
[2018-09-12] MEDS: SENNOSIDES/DOCUSATE 8.6-50 MG 1 EACH TABLET PO SCH ×2 (11:59→17:20)
[2018-09-12] MEDS: FOLIC ACID 1 MG TABLET PO SCH (11:59)
[2018-09-12] MEDS: HYDROXYUREA 500 MG CAPSULE PO SCH (12:00)
[2018-09-12] MEDS: NORMAL SALINE 10 ML SDV (SCHEDULED) IV SCH ×2 (12:01→21:57)
[2018-09-12] MEDS: ENOXAPARIN SODIUM INJ 40 MG/0.4 ML DISP.SYRIN SUBCUT SCH (12:02)
[2018-09-12 12:15] LABS: WHITE BLOOD COUNT 7.8 10^3/uL (4.0-10.5)
[2018-09-12] MEDS ORDERED: MAGNESIUM CITRATE 296 ML BOTTLE PO PRN (12:46)
--- NOTE | 2018-09-12 21:53 | PDOC PROGRESS REPORT ---
Subjective Progress Note for:: 09/12/18 Subjective:: This is a 28 year old female with no significant past medical history aside from sickle cell disease diagnosed during childhood who was admitted 09/04/18 for sickle cell crisis. The patient was seen this morning on rounds, she is resting in bed on supplemental O2 via nasal cannula. She endorses generalized pain, does not specify one area that is worse than others. The patient endorses significant constipation, states she is "not sure" she had a BM this week. Added PRN Magnesium Citrate and a one time fleets enema, patient is already on senna and PRN milk of magnesia. Dr. Philip is consulted, managing pain regimen. Likely discharge home in 24-48 hours. Reason For Visit: SICKLE CELL CRISIS Physical Exam Vital Signs: Temp Pulse Resp BP Pulse Ox 98.0 F 83 15 128/72 H 98 09/12/18 20:24 09/12/18 20:24 09/12/18 20:24 09/12/18 20:24 09/12/18 20:24 Intake & Output 09/11/18 09/12/18 09/13/18 06:59 06:59 06:59 Intake Total 5014 5387 3346 Output Total 3400 1700 Balance 1614 3687 3346 Weight 61.2 kg 62.5 kg General appearance: PRESENT: no acute distress, well-developed, well-nourished Head exam: PRESENT: atraumatic, normocephalic Eye exam: PRESENT: conjunctiva pink, EOMI, PERRLA. ABSENT: scleral icterus Ear exam: PRESENT: normal external ear exam Mouth exam: PRESENT: moist, tongue midline Neck exam: ABSENT: carotid bruit, JVD, lymphadenopathy, thyromegaly Respiratory exam: PRESENT: clear to auscultation william. ABSENT: rales, rhonchi, wheezes Cardiovascular exam: PRESENT: RRR. ABSENT: diastolic murmur, rubs, systolic murmur Pulses: PRESENT: normal dorsalis pedis pul Vascular exam: PRESENT: normal capillary refill GI/Abdominal exam: PRESENT: normal bowel sounds, soft. ABSENT: distended, guarding, mass, organolmegaly, rebound, tenderness Rectal exam: PRESENT: deferred Extremities exam: PRESENT: full ROM. ABSENT: calf tenderness, clubbing, pedal edema Neurological exam: PRESENT: alert, awake, oriented to person, oriented to place, oriented to time, oriented to situation. ABSENT: motor sensory deficit Psychiatric exam: PRESENT: appropriate affect, normal mood. ABSENT: homicidal ideation, suicidal ideation Skin exam: PRESENT: dry, intact, warm. ABSENT: cyanosis, rash Results Laboratory Results: 09/11/18 05:45 09/10/18 04:25 09/11/18 05:45 WBC 7.8 Impressions: Guidance Fluoroscopy 09/04/18 00:00 IMPRESSION: SUCCESSFUL PLACEMENT OF A 5 FR DUAL LUMEN 38 CM PICC IN THE LEFT BASILIC VEIN. Interventional Vascular Procedure 09/04/18 00:00 IMPRESSION: SUCCESSFUL PLACEMENT OF A 5 FR DUAL LUMEN 38 CM PICC IN THE LEFT BASILIC VEIN. PICC Line Insertion 09/04/18 00:00 IMPRESSION: SUCCESSFUL PLACEMENT OF A 5 FR DUAL LUMEN 38 CM PICC IN THE LEFT BASILIC VEIN. Status: Imported from PACS Assessment & Plan - Diagnosis (1) Sickle cell anemia Qualifiers: Sickle-cell associated disorders: with unspecified crisis Qualified Code(s): D57.00 - Hb-SS disease with crisis, unspecified; D57.0 - Hb-SS disease with crisis Is this a current diagnosis for this admission?: Yes Plan: Patient reports continued severe pain. Hemoglobin decreased to 7.1 Retic count is up however, LDH and total bili are unchanged Hematology is consulted; appreciate Dr. Cornelius's assistance. Pain management per hematology; they have discontinued her oral analgesics and increased her Dilaudid again today. Continue home dose hydroxyurea. Continue home dose of amitriptyline. Benadryl and antiemetics as needed. Lidoderm patch (patient reports menstrual cramps related back pain; may provide some therapeutic effect) K pad Supplemental oxygen as needed to maintain oxygen saturations greater than 90% - patient has to be reminded frequently to wear O2 IV fluid hydration - NS @ 150mL/hr Folic acid supplementation. CBC and Retic count in AM (2) Acute on chronic anemia Is this a current diagnosis for this admission?: Yes - Lethargic Plan: Hgb decreased to 7.1 Secondary to acute sickle cell crisis. Baseline hemoglobin ~ 8.0. Now status post 3 (total) units PRBC. Will transfuse if Hgb drops below 7 Continue to monitor and transfuse as needed for hemoglobin less than 7. (3) Hypertension Qualifiers: Hypertension type: essential hypertension Qualified Code(s): I10 - Essential (primary) hypertension Is this a current diagnosis for this admission?: Yes Plan: Normotensive today. Continue home dose amlodipine (4) Opiate dependence Is this a current diagnosis for this admission?: Yes Plan: Secondary to chronic sickle cell pain. Pain management as above. (5) Constipation Qualifiers: Constipation type: drug induced constipation Qualified Code(s): K59.03 - Drug induced constipation Is this a current diagnosis for this admission?: Yes Plan: Secondary to high doses on narcotics. Dulcolax suppository and antibiotics are scheduled Fleets enema ordered PRN magnesium citrate - Time Time Spent with patient: 15-24 minutes Medications reviewed and adjusted accordingly: Yes Anticipated discharge: Home - Inpatient Certification Based on my medical assessment, after consideration of the patient's comorbidities, presenting symptoms, or acuity I expect that the services needed warrant INPATIENT care.: Yes I certify that my determination is in accordance with my understanding of Medicare's requirements for reasonable and necessary INPATIENT services [42 CFR 412.3e].: Yes Medical Necessity: Need for Pain Control, Risk of Complication if Not Cared For in Hospital
[2018-09-12] MEDS: AMITRIPTYLINE HCL 50 MG TABLET PO SCH (21:57)
[2018-09-12] MEDS: CETIRIZINE 10 MG TABLET PO SCH (21:57)
[2018-09-12 22:17] LABS: ABSOLUTE RETICS # 0.242 10^6/uL (0.028-0.122); HEMATOCRIT 19.5 % (36.0-47.0); MEAN CORPUSCULAR HEMOGLOBIN 32.9 pg (27.0-33.4); MEAN CORPUSCULAR HGB CONC 36.8 g/dL (32.0-36.0); MEAN CORPUSCULAR VOLUME 89 fl (80-97); PLATELET COUNT 270 10^3/uL (150-450); RED BLOOD COUNT 2.18 10^6/uL (3.72-5.28); RED CELL DISTRIBUTION WIDTH 27.2 % (11.5-14.0); WHITE BLOOD COUNT 7.1 10^3/uL (4.0-10.5)
[2018-09-12 22:51] LABS: HEMOGLOBIN 7.2 g/dL (12.0-15.5)
[2018-09-13] MEDS: HYDROMORPHONE HCL INJ/PF 2 MG/ML AMPULE IV PRN ×9 (00:06→22:35)
[2018-09-13] MEDS: ONDANSETRON HCL INJ/PF 4 MG/2 ML SDV IV PRN ×6 (02:15→22:36)
[2018-09-13] MEDS: DIPHENHYDRAMINE HCL 50 MG/ML VIAL IV PRN ×6 (02:16→22:36)
[2018-09-13] MEDS ORDERED: ACETAMINOPHEN 325 MG TABLET PO PRN (05:00)
[2018-09-13] MEDS ORDERED: DIPHENHYDRAMINE HCL 25 MG CAPSULE PO PRN (05:00)
[2018-09-13] MEDS: FLUTICASONE NASAL SPRAY 50 MCG/SPRY 120 SPRAY/16 GM NASL SCH ×2 (06:04→17:30)
[2018-09-13] MEDS: NORMAL SALINE 1000 ML 1,000 ML IV PRN (06:04)
[2018-09-13 07:03] LABS: ABSOLUTE RETICS # 0.274 10^6/uL (0.028-0.122); HEMATOCRIT 19.6 % (36.0-47.0); MEAN CORPUSCULAR HEMOGLOBIN 33.2 pg (27.0-33.4); MEAN CORPUSCULAR HGB CONC 36.4 g/dL (32.0-36.0); MEAN CORPUSCULAR VOLUME 91 fl (80-97); PLATELET COUNT 268 10^3/uL (150-450); RED BLOOD COUNT 2.15 10^6/uL (3.72-5.28); RED CELL DISTRIBUTION WIDTH 29.1 % (11.5-14.0); RETICULOCYTE COUNT (AUTO) 12.78 % (0.66-2.85); WHITE BLOOD COUNT 6.8 10^3/uL (4.0-10.5)
[2018-09-13 07:23] LABS: HEMOGLOBIN 7.1 g/dL (12.0-15.5)
[2018-09-13] MEDS: AMITRIPTYLINE HCL 25 MG TABLET PO SCH (08:19)
[2018-09-13] MEDS: ENOXAPARIN SODIUM INJ 40 MG/0.4 ML DISP.SYRIN SUBCUT SCH (10:37)
[2018-09-13] MEDS: HYDROXYUREA 500 MG CAPSULE PO SCH (10:38)
[2018-09-13] MEDS: SENNOSIDES/DOCUSATE 8.6-50 MG 1 EACH TABLET PO SCH ×2 (10:38→17:27)
[2018-09-13] MEDS: FOLIC ACID 1 MG TABLET PO SCH (10:38)
[2018-09-13] MEDS: AMLODIPINE BESYLATE 5 MG TABLET PO SCH (10:38)
[2018-09-13] MEDS: NORMAL SALINE 10 ML SDV (SCHEDULED) IV SCH ×2 (10:46→22:35)
--- NOTE | 2018-09-13 13:06 | PDOC PROGRESS REPORT ---
Subjective Progress Note for:: 09/13/18 Subjective:: Patient still having active pain crisis, having more pain today. Reason For Visit: SICKLE CELL CRISIS Physical Exam Vital Signs: Temp Pulse Resp BP Pulse Ox 98.2 F 92 18 141/75 H 95 09/13/18 12:00 09/13/18 12:00 09/13/18 12:00 09/13/18 12:00 09/13/18 12:00 Intake & Output 09/12/18 09/13/18 09/14/18 06:59 06:59 07:59 Intake Total 5387 5170 Output Total 1700 1900 Balance 3687 3270 Weight 62.5 kg General appearance: PRESENT: no acute distress, well-developed, well-nourished Head exam: PRESENT: atraumatic, normocephalic Eye exam: PRESENT: conjunctiva pink, EOMI, PERRLA. ABSENT: scleral icterus Ear exam: PRESENT: normal external ear exam Mouth exam: PRESENT: moist, tongue midline Neck exam: ABSENT: carotid bruit, JVD, lymphadenopathy, thyromegaly Respiratory exam: PRESENT: clear to auscultation william. ABSENT: rales, rhonchi, wheezes Cardiovascular exam: PRESENT: RRR. ABSENT: diastolic murmur, rubs, systolic murmur Pulses: PRESENT: normal dorsalis pedis pul Vascular exam: PRESENT: normal capillary refill GI/Abdominal exam: PRESENT: normal bowel sounds, soft. ABSENT: distended, guarding, mass, organolmegaly, rebound, tenderness Rectal exam: PRESENT: deferred Extremities exam: PRESENT: full ROM. ABSENT: calf tenderness, clubbing, pedal edema Neurological exam: PRESENT: alert, awake, oriented to person, oriented to place, oriented to time, oriented to situation, CN II-XII grossly intact. ABSENT: motor sensory deficit Psychiatric exam: PRESENT: appropriate affect, normal mood. ABSENT: homicidal ideation, suicidal ideation Skin exam: PRESENT: dry, intact, warm. ABSENT: cyanosis, rash Results Laboratory Results: 09/13/18 06:10 09/10/18 04:25 09/12/18 09/13/18 22:00 06:10 WBC 7.1 6.8 RBC 2.18 L 2.15 L Hgb 7.2 L 7.1 L Hct 19.5 L 19.6 L MCV 89 91 MCH 32.9 33.2 MCHC 36.8 H 36.4 H RDW 27.2 H 29.1 H Plt Count 270 268 Retic Count (auto) 11.10 H 12.78 H Absolute Retic 0.242 H 0.274 H Impressions: Guidance Fluoroscopy 09/04/18 00:00 IMPRESSION: SUCCESSFUL PLACEMENT OF A 5 FR DUAL LUMEN 38 CM PICC IN THE LEFT BASILIC VEIN. Interventional Vascular Procedure 09/04/18 00:00 IMPRESSION: SUCCESSFUL PLACEMENT OF A 5 FR DUAL LUMEN 38 CM PICC IN THE LEFT BASILIC VEIN. PICC Line Insertion 09/04/18 00:00 IMPRESSION: SUCCESSFUL PLACEMENT OF A 5 FR DUAL LUMEN 38 CM PICC IN THE LEFT BASILIC VEIN. Assessment & Plan - Diagnosis (1) Sickle cell pain crisis Is this a current diagnosis for this admission?: Yes Plan: Continue with current pain control, IV fluids, continue with other supportive measures 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 Hemolytic anemia type: other hemoglobinopathy Qualified Code(s): D58.2 - Other hemoglobinopathies Is this a current diagnosis for this admission?: Yes Plan: Will transfuse 1 unit of packed red blood cell - Time Time Spent with patient: 35 or more minutes
--- NOTE | 2018-09-13 16:52 | PDOC PROGRESS REPORT ---
Subjective Progress Note for:: 09/13/18 Subjective:: This is a 28 year old female with no significant past medical history aside from sickle cell disease diagnosed during childhood who was admitted 09/04/18 for sickle cell crisis. The patient was seen this morning on rounds, she is resting in bed on supplemental O2 via nasal cannula. She endorses generalized pain, states it is worse in her arms and back. Hgb remains low 7.1, plan for transfusion today. Dr. Philip is consulted, managing pain regimen. Likely discharge home in 24-48 hours. Reason For Visit: SICKLE CELL CRISIS Physical Exam Vital Signs: Temp Pulse Resp BP Pulse Ox 98.1 F 78 16 140/74 H 96 09/13/18 16:11 09/13/18 16:11 09/13/18 16:11 09/13/18 16:11 09/13/18 16:11 Intake & Output 09/12/18 09/13/18 09/14/18 06:59 06:59 07:59 Intake Total 5387 5170 0 Output Total 1700 1900 Balance 3687 3270 0 Weight 62.5 kg General appearance: PRESENT: no acute distress, well-developed, well-nourished Head exam: PRESENT: atraumatic Eye exam: PRESENT: conjunctiva pink, PERRLA Mouth exam: PRESENT: moist, tongue midline Neck exam: PRESENT: full ROM Respiratory exam: PRESENT: clear to auscultation william, symmetrical, unlabored Cardiovascular exam: PRESENT: RRR Pulses: PRESENT: normal radial pulses, normal dorsalis pedis pul Vascular exam: PRESENT: normal capillary refill GI/Abdominal exam: PRESENT: normal bowel sounds, soft. ABSENT: tenderness Rectal exam: PRESENT: deferred Extremities exam: PRESENT: full ROM Musculoskeletal exam: PRESENT: ambulatory, full ROM Neurological exam: PRESENT: alert, awake, oriented to person, oriented to place, oriented to time, oriented to situation Psychiatric exam: PRESENT: appropriate affect Skin exam: PRESENT: dry, intact, normal color Results Laboratory Results: 09/13/18 06:10 09/10/18 04:25 09/12/18 09/13/18 09/13/18 22:00 06:10 13:45 WBC 7.1 6.8 RBC 2.18 L 2.15 L Hgb 7.2 L 7.1 L Hct 19.5 L 19.6 L MCV 89 91 MCH 32.9 33.2 MCHC 36.8 H 36.4 H RDW 27.2 H 29.1 H Plt Count 270 268 Retic Count (auto) 11.10 H 12.78 H Absolute Retic 0.242 H 0.274 H Blood Type O POSITIVE Antibody Screen NEGATIVE Impressions: Guidance Fluoroscopy 09/04/18 00:00 IMPRESSION: SUCCESSFUL PLACEMENT OF A 5 FR DUAL LUMEN 38 CM PICC IN THE LEFT BASILIC VEIN. Interventional Vascular Procedure 09/04/18 00:00 IMPRESSION: SUCCESSFUL PLACEMENT OF A 5 FR DUAL LUMEN 38 CM PICC IN THE LEFT BASILIC VEIN. PICC Line Insertion 09/04/18 00:00 IMPRESSION: SUCCESSFUL PLACEMENT OF A 5 FR DUAL LUMEN 38 CM PICC IN THE LEFT BASILIC VEIN. Status: Imported from PACS Assessment & Plan - Diagnosis (1) Sickle cell anemia Qualifiers: Sickle-cell associated disorders: with unspecified crisis Qualified Code(s): D57.00 - Hb-SS disease with crisis, unspecified; D57.0 - Hb-SS disease with crisis Is this a current diagnosis for this admission?: Yes Plan: Patient reports continued severe pain. Hemoglobin remains low at 7.1 Retic count (12.8) is up however, LDH and total bili are unchanged Hematology is consulted; appreciate Dr. Cornelius's assistance. Pain management per hematology; they have discontinued her oral analgesics and increased her Dilaudid again today. Continue home dose hydroxyurea. Continue home dose of amitriptyline. Benadryl and antiemetics as needed. Lidoderm patch (patient reports menstrual cramps related back pain; may provide some therapeutic effect) K pad Supplemental oxygen as needed to maintain oxygen saturations greater than 90% - patient has to be reminded frequently to wear O2 IV fluid hydration - NS @ 150mL/hr Folic acid supplementation. CBC and Retic count in AM (2) Acute on chronic anemia Is this a current diagnosis for this admission?: Yes - Lethargic Plan: Hgb remains low at 7.1 today Secondary to acute sickle cell crisis. Baseline hemoglobin ~ 8.0. Now status post 3 (total) units PRBC, plan to transfuse again today Continue to monitor and transfuse as needed for hemoglobin less than 7. (3) Hypertension Qualifiers: Hypertension type: essential hypertension Qualified Code(s): I10 - Essential (primary) hypertension Is this a current diagnosis for this admission?: Yes Plan: Normotensive today. Continue home dose amlodipine (4) Opiate dependence Is this a current diagnosis for this admission?: Yes Plan: Secondary to chronic sickle cell pain. Pain management as above. (5) Constipation Qualifiers: Constipation type: drug induced constipation Qualified Code(s): K59.03 - Drug induced constipation Is this a current diagnosis for this admission?: Yes Plan: Secondary to high doses on narcotics. Dulcolax suppository and antibiotics are scheduled Fleets enema ordered PRN magnesium citrate - Time Time Spent with patient: 15-24 minutes Medications reviewed and adjusted accordingly: Yes Anticipated discharge: Home Within: within 24 hours - Inpatient Certification Based on my medical assessment, after consideration of the patient's comorbidities, presenting symptoms, or acuity I expect that the services needed warrant INPATIENT care.: Yes I certify that my determination is in accordance with my understanding of Medicare's requirements for reasonable and necessary INPATIENT services [42 CFR 412.3e].: Yes Medical Necessity: Need for Pain Control, Risk of Complication if Not Cared For in Hospital
[2018-09-13] MEDS: AMITRIPTYLINE HCL 50 MG TABLET PO SCH (22:35)
[2018-09-13] MEDS: CETIRIZINE 10 MG TABLET PO SCH (22:35)
[2018-09-14] MEDS: NORMAL SALINE 1000 ML 1,000 ML IV PRN ×4 (00:38→22:37)
[2018-09-14] MEDS: HYDROMORPHONE HCL INJ/PF 2 MG/ML AMPULE IV PRN ×10 (00:38→22:28)
[2018-09-14] MEDS: ONDANSETRON HCL INJ/PF 4 MG/2 ML SDV IV PRN ×5 (03:39→20:15)
[2018-09-14] MEDS: DIPHENHYDRAMINE HCL 50 MG/ML VIAL IV PRN ×5 (03:39→20:14)
--- NOTE | 2018-09-14 03:41 | RADIOLOGY REPORT (SQ) ---
EXAM DESCRIPTION: US EXTREMITY VEINS UNILATERAL COMPLETED DATE/TME: 09/12/2018 00:00 CLINICAL HISTORY: 28 years, Female, PAIN AND SWELLING LEFT UPPER ARM COMPARISON: None. TECHNIQUE: Transverse and longitudinal sonographic images of the left upper extremity deep venous system LIMITATIONS: Central line blocked some images FINDINGS: No visible areas of thrombus formation. Normal compression and augmentation in the visualized venous structures. Doppler and spectral analysis with color flow was utilized. Suboptimal visualization of the basilic vein IMPRESSION: Suboptimal visualization of the basilic vein. Remainder shows no evidence for DVT copyright 2010 [employer]- All Rights Reserved
[2018-09-14] MEDS: FLUTICASONE NASAL SPRAY 50 MCG/SPRY 120 SPRAY/16 GM NASL SCH ×2 (05:40→17:25)
[2018-09-14 06:57] LABS: HEMATOCRIT 21.2 % (36.0-47.0); MEAN CORPUSCULAR HEMOGLOBIN 32.2 pg (27.0-33.4); MEAN CORPUSCULAR HGB CONC 35.6 g/dL (32.0-36.0); MEAN CORPUSCULAR VOLUME 90 fl (80-97); PLATELET COUNT 244 10^3/uL (150-450); RED BLOOD COUNT 2.35 10^6/uL (3.72-5.28); RED CELL DISTRIBUTION WIDTH 27.4 % (11.5-14.0); WHITE BLOOD COUNT 5.3 10^3/uL (4.0-10.5)
[2018-09-14 07:38] LABS: HEMOGLOBIN 7.6 g/dL (12.0-15.5)
[2018-09-14] MEDS: AMITRIPTYLINE HCL 25 MG TABLET PO SCH (08:31)
[2018-09-14] MEDS: FOLIC ACID 1 MG TABLET PO SCH (11:37)
[2018-09-14] MEDS: AMLODIPINE BESYLATE 5 MG TABLET PO SCH (11:37)
[2018-09-14] MEDS: SENNOSIDES/DOCUSATE 8.6-50 MG 1 EACH TABLET PO SCH ×3 (11:38→17:26)
[2018-09-14] MEDS: NORMAL SALINE 10 ML SDV (SCHEDULED) IV SCH ×2 (11:40→22:26)
[2018-09-14] MEDS: ENOXAPARIN SODIUM INJ 40 MG/0.4 ML DISP.SYRIN SUBCUT SCH (11:40)
[2018-09-14] MEDS: HYDROXYUREA 500 MG CAPSULE PO SCH (11:41)
--- NOTE | 2018-09-14 19:46 | PDOC PROGRESS REPORT ---
Subjective Progress Note for:: 09/14/18 Subjective:: This is a 28 year old female with no significant past medical history aside from sickle cell disease diagnosed during childhood who was admitted 09/04/18 for sickle cell crisis. The patient was seen this morning on rounds, she is resting in bed on supplemental O2 via nasal cannula. The patient is visualized ambulating in her room without difficulty. She states her pain is pretty well controlled but "is still having pain." Hgb remains low 7.6 even after transfusion yesterday. Dr. Philip is consulted, managing pain regimen. Likely discharge home in 24-48 hours. Reason For Visit: SICKLE CELL CRISIS Physical Exam Vital Signs: Temp Pulse Resp BP Pulse Ox 98.3 F 91 18 145/93 H 86 L 09/14/18 15:39 09/14/18 15:39 09/14/18 15:39 09/14/18 15:39 09/14/18 15:39 Intake & Output 09/13/18 09/14/18 09/15/18 05:59 06:59 06:59 Intake Total 3200 Output Total 2750 Balance 450 Weight General appearance: PRESENT: no acute distress, well-developed, well-nourished Eye exam: PRESENT: conjunctiva pink, PERRLA Mouth exam: PRESENT: moist, tongue midline Respiratory exam: PRESENT: clear to auscultation william, symmetrical, unlabored Cardiovascular exam: PRESENT: RRR Pulses: PRESENT: normal radial pulses Vascular exam: PRESENT: normal capillary refill GI/Abdominal exam: PRESENT: soft. ABSENT: distended, tenderness Rectal exam: PRESENT: deferred Extremities exam: PRESENT: full ROM Musculoskeletal exam: PRESENT: ambulatory, full ROM Neurological exam: PRESENT: alert, awake, oriented to person, oriented to place, oriented to time, oriented to situation Psychiatric exam: PRESENT: appropriate affect Skin exam: PRESENT: dry, intact, normal color Results Laboratory Results: 09/14/18 05:35 09/10/18 04:25 09/14/18 05:35 WBC 5.3 RBC 2.35 L Hgb 7.6 L Hct 21.2 L MCV 90 MCH 32.2 MCHC 35.6 RDW 27.4 H Plt Count 244 Impressions: Guidance Fluoroscopy 09/04/18 00:00 IMPRESSION: SUCCESSFUL PLACEMENT OF A 5 FR DUAL LUMEN 38 CM PICC IN THE LEFT BASILIC VEIN. Interventional Vascular Procedure 09/04/18 00:00 IMPRESSION: SUCCESSFUL PLACEMENT OF A 5 FR DUAL LUMEN 38 CM PICC IN THE LEFT BASILIC VEIN. PICC Line Insertion 09/04/18 00:00 IMPRESSION: SUCCESSFUL PLACEMENT OF A 5 FR DUAL LUMEN 38 CM PICC IN THE LEFT BASILIC VEIN. Venous Doppler Study 09/12/18 00:00 IMPRESSION: Suboptimal visualization of the basilic vein. Remainder shows no evidence for DVT copyright 2010 [employer]- All Rights Reserved Status: Imported from PACS Assessment & Plan - Diagnosis (1) Sickle cell anemia Qualifiers: Sickle-cell associated disorders: with unspecified crisis Qualified Code(s): D57.00 - Hb-SS disease with crisis, unspecified; D57.0 - Hb-SS disease with crisis Is this a current diagnosis for this admission?: Yes Plan: Patient reports continued severe pain. Hemoglobin remains low at 7.6 Retic count (12.8) is elevated Hematology is consulted; appreciate Dr. Cornelius's assistance. Pain management per hematology Continue home dose hydroxyurea. Continue home dose of amitriptyline. Benadryl and antiemetics as needed. Lidoderm patch (patient reports menstrual cramps related back pain; may provide some therapeutic effect) K pad Supplemental oxygen as needed to maintain oxygen saturations greater than 90% - patient has to be reminded frequently to wear O2 IV fluid hydration - NS @ 150mL/hr Folic acid supplementation. CBC and Retic count in AM (2) Acute on chronic anemia Is this a current diagnosis for this admission?: Yes - Lethargic Plan: Hgb remains low at 7.6 today despite receiving 1U PRBC transfusion yesterday Secondary to acute sickle cell crisis. Baseline hemoglobin ~ 8.0. Now status post multiple units PRBC Continue to monitor and transfuse as needed for hemoglobin less than 7. (3) Hypertension Qualifiers: Hypertension type: essential hypertension Qualified Code(s): I10 - Essential (primary) hypertension Is this a current diagnosis for this admission?: Yes Plan: Normotensive today. Continue home dose amlodipine (4) Opiate dependence Is this a current diagnosis for this admission?: Yes Plan: Secondary to chronic sickle cell pain. Pain management as above. (5) Constipation Qualifiers: Constipation type: drug induced constipation Qualified Code(s): K59.03 - Drug induced constipation Is this a current diagnosis for this admission?: Yes Plan: Secondary to high doses on narcotics. Dulcolax suppository and antibiotics are scheduled Fleets enema ordered PRN magnesium citrate - Time Time Spent with patient: 15-24 minutes Medications reviewed and adjusted accordingly: Yes Anticipated discharge: Home Within: within 48 hours - Inpatient Certification Based on my medical assessment, after consideration of the patient's comorbidities, presenting symptoms, or acuity I expect that the services needed warrant INPATIENT care.: Yes I certify that my determination is in accordance with my understanding of Medicare's requirements for reasonable and necessary INPATIENT services [42 CFR 412.3e].: Yes Medical Necessity: Need for Pain Control
[2018-09-14] MEDS: AMITRIPTYLINE HCL 50 MG TABLET PO SCH (22:26)
[2018-09-14] MEDS: CETIRIZINE 10 MG TABLET PO SCH (22:26)
[2018-09-15] MEDS: HYDROMORPHONE HCL INJ/PF 2 MG/ML AMPULE IV PRN ×11 (00:45→22:42)
[2018-09-15] MEDS: DIPHENHYDRAMINE HCL 50 MG/ML VIAL IV PRN ×6 (00:46→22:43)
[2018-09-15] MEDS: ONDANSETRON HCL INJ/PF 4 MG/2 ML SDV IV PRN ×5 (04:49→22:43)
[2018-09-15] MEDS: FLUTICASONE NASAL SPRAY 50 MCG/SPRY 120 SPRAY/16 GM NASL SCH ×2 (05:03→17:11)
[2018-09-15 06:42] LABS: ABSOLUTE RETICS # 0.345 10^6/uL (0.028-0.122); HEMATOCRIT 24.8 % (36.0-47.0); HEMOGLOBIN 8.8 g/dL (12.0-15.5); MEAN CORPUSCULAR HEMOGLOBIN 32.6 pg (27.0-33.4); MEAN CORPUSCULAR HGB CONC 35.6 g/dL (32.0-36.0); MEAN CORPUSCULAR VOLUME 92 fl (80-97); PLATELET COUNT 279 10^3/uL (150-450); RED BLOOD COUNT 2.71 10^6/uL (3.72-5.28); RETICULOCYTE COUNT (AUTO) 12.75 % (0.66-2.85)
[2018-09-15 06:58] LABS: RED CELL DISTRIBUTION WIDTH 29.4 % (11.5-14.0)
[2018-09-15 07:04] LABS: WHITE BLOOD COUNT 5.9 10^3/uL (4.0-10.5)
[2018-09-15] MEDS: AMITRIPTYLINE HCL 25 MG TABLET PO SCH (07:27)
[2018-09-15] MEDS: NORMAL SALINE 1000 ML 1,000 ML IV PRN ×3 (08:00→21:05)
--- NOTE | 2018-09-15 08:09 | PDOC PROGRESS REPORT ---
Subjective Progress Note for:: 09/15/18 Subjective:: Patient feeling better this morning, pain is reduced, hemoglobin is improved posttransfusion. Patient would like to decrease pain medication. We will go down to 3 mg IV Dilaudid. Reason For Visit: SICKLE CELL CRISIS Physical Exam Vital Signs: Temp Pulse Resp BP Pulse Ox 98.1 F 87 19 130/79 H 99 09/14/18 23:10 09/14/18 23:10 09/14/18 23:10 09/14/18 23:10 09/14/18 23:10 Intake & Output 09/14/18 09/15/18 09/16/18 06:59 06:59 06:59 Intake Total 5201 Output Total 2750 Balance 2451 Weight 63.1 kg General appearance: PRESENT: no acute distress, well-developed, well-nourished Head exam: PRESENT: atraumatic, normocephalic Eye exam: PRESENT: conjunctiva pink, EOMI, PERRLA. ABSENT: scleral icterus Ear exam: PRESENT: normal external ear exam Mouth exam: PRESENT: moist, tongue midline Neck exam: ABSENT: carotid bruit, JVD, lymphadenopathy, thyromegaly Respiratory exam: PRESENT: clear to auscultation william. ABSENT: rales, rhonchi, wheezes Cardiovascular exam: PRESENT: RRR. ABSENT: diastolic murmur, rubs, systolic murmur Pulses: PRESENT: normal dorsalis pedis pul Vascular exam: PRESENT: normal capillary refill GI/Abdominal exam: PRESENT: normal bowel sounds, soft. ABSENT: distended, guarding, mass, organolmegaly, rebound, tenderness Rectal exam: PRESENT: deferred Extremities exam: PRESENT: full ROM. ABSENT: calf tenderness, clubbing, pedal edema Neurological exam: PRESENT: alert, awake, oriented to person, oriented to place, oriented to time, oriented to situation, CN II-XII grossly intact. ABSENT: motor sensory deficit Psychiatric exam: PRESENT: appropriate affect, normal mood. ABSENT: homicidal ideation, suicidal ideation Skin exam: PRESENT: dry, intact, warm. ABSENT: cyanosis, rash Results Laboratory Results: 09/15/18 05:15 09/10/18 04:25 09/15/18 05:15 WBC 5.9 RBC 2.71 L Hgb 8.8 L Hct 24.8 L MCV 92 MCH 32.6 MCHC 35.6 RDW 29.4 H Plt Count 279 Retic Count (auto) 12.75 H Absolute Retic 0.345 H Impressions: Guidance Fluoroscopy 09/04/18 00:00 IMPRESSION: SUCCESSFUL PLACEMENT OF A 5 FR DUAL LUMEN 38 CM PICC IN THE LEFT BASILIC VEIN. Interventional Vascular Procedure 09/04/18 00:00 IMPRESSION: SUCCESSFUL PLACEMENT OF A 5 FR DUAL LUMEN 38 CM PICC IN THE LEFT BASILIC VEIN. PICC Line Insertion 09/04/18 00:00 IMPRESSION: SUCCESSFUL PLACEMENT OF A 5 FR DUAL LUMEN 38 CM PICC IN THE LEFT BASILIC VEIN. Venous Doppler Study 09/12/18 00:00 IMPRESSION: Suboptimal visualization of the basilic vein. Remainder shows no evidence for DVT copyright 2010 [employer]- All Rights Reserved Assessment & Plan - Diagnosis (1) Sickle cell pain crisis Is this a current diagnosis for this admission?: Yes Plan: Improving, decrease medication today, possible discharge in the next 24-48 hours. 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 Hemolytic anemia type: other hemoglobinopathy Qualified Code(s): D58.2 - Other hemoglobinopathies Is this a current diagnosis for this admission?: Yes Plan: Hemoglobin improved posttransfusion
[2018-09-15] MEDS: AMLODIPINE BESYLATE 5 MG TABLET PO SCH (09:52)
[2018-09-15] MEDS: HYDROXYUREA 500 MG CAPSULE PO SCH (09:54)
[2018-09-15] MEDS: ENOXAPARIN SODIUM INJ 40 MG/0.4 ML DISP.SYRIN SUBCUT SCH (09:56)
[2018-09-15] MEDS: SENNOSIDES/DOCUSATE 8.6-50 MG 1 EACH TABLET PO SCH ×2 (09:57→17:11)
[2018-09-15] MEDS: NORMAL SALINE 10 ML SDV (SCHEDULED) IV SCH ×2 (09:57→22:43)
[2018-09-15] MEDS: FOLIC ACID 1 MG TABLET PO SCH (09:57)
--- NOTE | 2018-09-15 16:48 | PDOC PROGRESS REPORT ---
Subjective Progress Note for:: 09/15/18 Subjective:: This is a 28 year old female with no significant past medical history aside from sickle cell disease diagnosed during childhood who was admitted 09/04/18 for sickle cell crisis. The patient was seen this morning on rounds, she is resting in bed on supplemental O2 via nasal cannula. Dilaudid dose decreased to 3mg by Dr. Philip. She states her pain is well controlled even on the lower dose. Hgb increased to 8.8 today, transfused [address] Philip is consulted, managing pain regimen. Recommend discharge tomorrow. Reason For Visit: SICKLE CELL CRISIS Physical Exam Vital Signs: Temp Pulse Resp BP Pulse Ox 98.7 F 77 16 126/74 H 98 09/15/18 15:07 09/15/18 15:07 09/15/18 15:07 09/15/18 15:07 09/15/18 15:07 Intake & Output 09/14/18 09/15/18 09/16/18 06:59 06:59 06:59 Intake Total 5201 2447 Output Total 2750 Balance 2451 2447 Weight 63.1 kg General appearance: PRESENT: no acute distress, well-developed, well-nourished Head exam: PRESENT: atraumatic, normocephalic Eye exam: PRESENT: conjunctiva pink, EOMI, PERRLA. ABSENT: scleral icterus Ear exam: PRESENT: normal external ear exam Mouth exam: PRESENT: moist, tongue midline Neck exam: ABSENT: carotid bruit, JVD, lymphadenopathy, thyromegaly Respiratory exam: PRESENT: clear to auscultation william. ABSENT: rales, rhonchi, wheezes Cardiovascular exam: PRESENT: RRR. ABSENT: diastolic murmur, rubs, systolic murmur Pulses: PRESENT: normal dorsalis pedis pul Vascular exam: PRESENT: normal capillary refill GI/Abdominal exam: PRESENT: normal bowel sounds, soft. ABSENT: distended, g uarding, mass, organolmegaly, rebound, tenderness Rectal exam: PRESENT: deferred Extremities exam: PRESENT: full ROM. ABSENT: calf tenderness, clubbing, pedal edema Neurological exam: PRESENT: alert, awake, oriented to person, oriented to place, oriented to time, oriented to situation. ABSENT: motor sensory deficit Psychiatric exam: PRESENT: appropriate affect, normal mood. ABSENT: homicidal ideation, suicidal ideation Skin exam: PRESENT: dry, intact, warm. ABSENT: cyanosis, rash Results Laboratory Results: 09/15/18 05:15 09/10/18 04:25 09/15/18 05:15 WBC 5.9 RBC 2.71 L Hgb 8.8 L Hct 24.8 L MCV 92 MCH 32.6 MCHC 35.6 RDW 29.4 H Plt Count 279 Retic Count (auto) 12.75 H Absolute Retic 0.345 H Impressions: Guidance Fluoroscopy 09/04/18 00:00 IMPRESSION: SUCCESSFUL PLACEMENT OF A 5 FR DUAL LUMEN 38 CM PICC IN THE LEFT BASILIC VEIN. Interventional Vascular Procedure 09/04/18 00:00 IMPRESSION: SUCCESSFUL PLACEMENT OF A 5 FR DUAL LUMEN 38 CM PICC IN THE LEFT BASILIC VEIN. PICC Line Insertion 09/04/18 00:00 IMPRESSION: SUCCESSFUL PLACEMENT OF A 5 FR DUAL LUMEN 38 CM PICC IN THE LEFT BASILIC VEIN. Venous Doppler Study 09/12/18 00:00 IMPRESSION: Suboptimal visualization of the basilic vein. Remainder shows no evidence for DVT copyright 2011 [email or web address]- All Rights Reserved Status: Imported from PACS Assessment & Plan - Diagnosis (1) Sickle cell anemia Qualifiers: Sickle-cell associated disorders: with unspecified crisis Qualified Code(s): D57.00 - Hb-SS disease with crisis, unspecified; D57.0 - Hb-SS disease with crisis Is this a current diagnosis for this admission?: Yes Plan: Patient reports continued severe pain. Hemoglobin remains low at 8.6 Retic count (12.8) is elevated but relatively unchanged from yesterday Hematology is consulted; appreciate Dr. Cornelius's assistance. Pain management per hematology Continue home dose hydroxyurea. Continue home dose of amitriptyline. Benadryl and antiemetics as needed. Lidoderm patch (patient reports menstrual cramps related back pain; may provide some therapeutic effect) K pad Supplemental oxygen as needed to maintain oxygen saturations greater than 90% - patient has to be reminded frequently to wear O2 IV fluid hydration - NS @ 150mL/hr Folic acid supplementation. CBC and Retic count in AM (2) Acute on chronic anemia Is this a current diagnosis for this admission?: Yes - Lethargic Plan: Hgb increased 7.6-->8.8 today Secondary to acute sickle cell crisis. Baseline hemoglobin ~ 8.0. Now status post multiple units PRBC Continue to monitor and transfuse as needed for hemoglobin less than 7. (3) Hypertension Qualifiers: Hypertension type: essential hypertension Qualified Code(s): I10 - Essential (primary) hypertension Is this a current diagnosis for this admission?: Yes Plan: Normotensive today. Continue home dose amlodipine (4) Opiate dependence Is this a current diagnosis for this admission?: Yes Plan: Secondary to chronic sickle cell pain. Pain management as above. (5) Constipation Qualifiers: Constipation type: drug induced constipation Qualified Code(s): K59.03 - Drug induced constipation Is this a current diagnosis for this admission?: Yes Plan: Secondary to high doses on narcotics. Dulcolax suppository are scheduled Fleets enema ordered PRN magnesium citrate - Time Time Spent with patient: 15-24 minutes Medications reviewed and adjusted accordingly: Yes Anticipated discharge: Home Within: within 24 hours - Inpatient Certification Based on my medical assessment, after consideration of the patient's comorbidities, presenting symptoms, or acuity I expect that the services needed warrant INPATIENT care.: Yes I certify that my determination is in accordance with my understanding of Medicare's requirements for reasonable and necessary INPATIENT services [42 CFR 412.3e].: Yes Medical Necessity: Need for Pain Control - Plan Summary Plan Summary: WEANED PAIN REGIMEN TODAY, PATIENT TOLERATED WELL. RECOMMEND DISCHARGE TOMORROW
[2018-09-15] MEDS: CETIRIZINE 10 MG TABLET PO SCH (22:43)
[2018-09-15] MEDS: AMITRIPTYLINE HCL 50 MG TABLET PO SCH (22:43)
[2018-09-16] MEDS: HYDROMORPHONE HCL INJ/PF 2 MG/ML AMPULE IV PRN ×6 (01:27→12:54)
[2018-09-16] MEDS: NORMAL SALINE 1000 ML 1,000 ML IV PRN (03:50)
[2018-09-16] MEDS: ONDANSETRON HCL INJ/PF 4 MG/2 ML SDV IV PRN ×3 (04:00→12:54)
[2018-09-16] MEDS: DIPHENHYDRAMINE HCL 50 MG/ML VIAL IV PRN ×3 (04:00→12:53)
[2018-09-16] MEDS: FLUTICASONE NASAL SPRAY 50 MCG/SPRY 120 SPRAY/16 GM NASL SCH (05:43)
[2018-09-16] MEDS: AMITRIPTYLINE HCL 25 MG TABLET PO SCH (08:13)
--- NOTE | 2018-09-16 08:29 | PDOC PROGRESS REPORT ---
Subjective Progress Note for:: 09/16/18 Subjective:: Feeling better this am, feels ready to dc home Reason For Visit: SICKLE CELL CRISIS Physical Exam Vital Signs: Temp Pulse Resp BP Pulse Ox 98.2 F 68 17 123/69 94 09/16/18 07:53 09/16/18 07:53 09/16/18 07:53 09/16/18 07:53 09/16/18 07:53 Intake & Output 09/15/18 09/16/18 09/17/18 06:59 06:59 06:59 Intake Total 5201 7283 Output Total 2750 5900 Balance 2451 1383 Weight 63.1 kg 63 kg General appearance: PRESENT: no acute distress, well-developed, well-nourished Head exam: PRESENT: atraumatic, normocephalic Eye exam: PRESENT: conjunctiva pink, EOMI, PERRLA. ABSENT: scleral icterus Ear exam: PRESENT: normal external ear exam Mouth exam: PRESENT: moist, tongue midline Neck exam: ABSENT: carotid bruit, JVD, lymphadenopathy, thyromegaly Respiratory exam: PRESENT: clear to auscultation william. ABSENT: rales, rhonchi, wheezes Cardiovascular exam: PRESENT: RRR. ABSENT: diastolic murmur, rubs, systolic murmur Pulses: PRESENT: normal dorsalis pedis pul Vascular exam: PRESENT: normal capillary refill GI/Abdominal exam: PRESENT: normal bowel sounds, soft. ABSENT: distended, guarding, mass, organolmegaly, rebound, tenderness Rectal exam: PRESENT: deferred Extremities exam: PRESENT: full ROM. ABSENT: calf tenderness, clubbing, pedal edema Neurological exam: PRESENT: alert, awake, oriented to person, oriented to place, oriented to time, oriented to situation, CN II-XII grossly intact. ABSENT: motor sensory deficit Psychiatric exam: PRESENT: appropriate affect, normal mood. ABSENT: homicidal ideation, suicidal ideation Skin exam: PRESENT: dry, intact, warm. ABSENT: cyanosis, rash Results Laboratory Results: 09/15/18 05:15 09/10/18 04:25 Impressions: Guidance Fluoroscopy 09/04/18 00:00 IMPRESSION: SUCCESSFUL PLACEMENT OF A 5 FR DUAL LUMEN 38 CM PICC IN THE LEFT BASILIC VEIN. Interventional Vascular Procedure 09/04/18 00:00 IMPRESSION: SUCCESSFUL PLACEMENT OF A 5 FR DUAL LUMEN 38 CM PICC IN THE LEFT BASILIC VEIN. PICC Line Insertion 09/04/18 00:00 IMPRESSION: SUCCESSFUL PLACEMENT OF A 5 FR DUAL LUMEN 38 CM PICC IN THE LEFT BASILIC VEIN. Venous Doppler Study 09/12/18 00:00 IMPRESSION: Suboptimal visualization of the basilic vein. Remainder shows no evidence for DVT copyright 2011 [employer]- All Rights Reserved Assessment & Plan - Diagnosis (1) Sickle cell pain crisis Is this a current diagnosis for this admission?: Yes Plan: Improved enough for d/c, wrote rx today for dilaudid for 1 wk, needs f/u in our office next week 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 Hemolytic anemia type: other hemoglobinopathy Qualified Code(s): D58.2 - Other hemoglobinopathies Is this a current diagnosis for this admission?: Yes Plan: Hb stable post tx, will follow as outpt
[2018-09-16] MEDS: AMLODIPINE BESYLATE 5 MG TABLET PO SCH (10:26)
[2018-09-16] MEDS: SENNOSIDES/DOCUSATE 8.6-50 MG 1 EACH TABLET PO SCH (10:26)
[2018-09-16] MEDS: FOLIC ACID 1 MG TABLET PO SCH (10:26)
[2018-09-16] MEDS: ENOXAPARIN SODIUM INJ 40 MG/0.4 ML DISP.SYRIN SUBCUT SCH (10:27)
[2018-09-16] MEDS: NORMAL SALINE 10 ML SDV (SCHEDULED) IV SCH (10:27)
[2018-09-16] MEDS: HYDROXYUREA 500 MG CAPSULE PO SCH (10:28)
--- NOTE | 2018-09-16 10:33 | PDOC DISCHARGE SUMMARY ---
General - Admit/Disc Date/PCP Admission Date/Primary Care Provider: 09/03/18 14:59 LINETTE GALVAN, Discharge Date: 09/16/18 - Discharge Diagnosis (1) Sickle cell pain crisis Is this a current diagnosis for this admission?: Yes Summary: Hemoglobin now stable at 8.8 following 3 units PRBC. Retic count (12.75) is elevated but relatively unchanged. Hematology was consulted; primary management per their expertise. Acute pain was managed by hematology service; she has been pressure provided in prescription by Dr. Cornelius for Dilaudid taper to her home oxycodone regimen. She was continued on her home dose hydroxyurea, amitriptyline, folic acid and provided Benadryl and antiemetics as needed. She received aggressive IV fluid resuscitation and supplemental oxygen as needed to maintain oxygen saturations. On day of discharge, the patient is in stable condition and reports well- controlled pain with her current medication regiment. She is requesting to be discharged home; discharge plan initiated by the hematology service. She is discharged home with self-care. She is advised to follow-up with her primary care provider as scheduled 09/18/[address] Cornelius within 1 week. She is encouraged to drink plenty of water and to return to the emergency department as necessary for concerning symptoms. (2) Acute on chronic anemia Is this a current diagnosis for this admission?: Yes - Lethargic Summary: Hgb increased 7.6-->8.8 today Secondary to acute sickle cell crisis. Baseline hemoglobin ~ 8.0. Now status post 3 units PRBC (3) Opiate dependence Is this a current diagnosis for this admission?: Yes Summary: Secondary to chronic sickle cell pain. Pain management as above. (4) Hypertension Is this a current diagnosis for this admission?: Yes Summary: Well-controlled on her home dose amlodipine. - Additional Information Discharge Diet: Regular Discharge Activity: Activity As Tolerated, Balance Activity w/Rest Prescriptions: Fluticasone Propionate [Flonase Nasal Wilmot 50 Mcg/Wilmot 16 gm] 2 spray NASL Q12A #1 spray.pump Home Medications: Amitriptyline HCl [Elavil 25 mg Tablet] 25 mg PO QAM 04/16/17 Amlodipine Besylate [Norvasc 5 mg Tablet] 5 mg PO DAILY 04/16/17 Cetirizine HCl [Zyrtec 10 mg Tablet] 10 mg PO QHS 04/16/17 Cyclobenzaprine HCl [Flexeril 5 mg Tablet] 5 mg PO Q12 04/16/17 Folic Acid [Folvite 1 mg Tablet] 1 mg PO DAILY 04/16/17 Hydroxyurea [Hydrea 500 mg Capsule] 1,500 mg PO SUTUTHSA@1000 04/16/17 Hydroxyurea [Hydrea 500 mg Capsule] 2,000 mg PO MOWEFR@1000 04/16/17 Oxycodone HCl 15 mg PO Q6HP PRN 04/16/17 Promethazine HCl [Phenergan 25 mg Tablet] 25 mg PO Q6HP PRN 04/16/17 Butalb/Acetaminophen/Caffeine [Vqmtin-Koorwfhi-Bluf 50-300-40] 1 cap PO Q4HP PRN 09/01/17 Amitriptyline HCl [Elavil 50 mg Tablet] 50 mg PO QHS 02/27/18 Acetaminophen [Tylenol 325 mg Tablet] 650 mg PO Q6HP PRN tablet 09/16/18 Bisacodyl [Dulcolax 10 mg Supp.rect] 10 mg NH DAILYP PRN supp.rect 09/16/18 Fluticasone Propionate [Flonase Nasal Wilmot 50 Mcg/Wilmot 16 gm] 2 spray NASL Q12A #1 spray.pump 09/16/18 Sennosides/Docusate 8.6-50 mg [Senna Plus Tablet] 2 each PO BID tablet 09/16/18 History of Present Illness History of Present Illness: H&P per Dr. Gutierrez: PRANAV JOINER is a 28 year old female with no significant past medical history aside from sickle cell disease diagnosed during childhood who was sent from Dr. Jung's clinic due to sickle cell crisis. Patient has been having generalized is body and joint pains since . She does say she has been having poor oral intake due to not feeling well overall. Dr. Khalil, patient has been managed at the outpatient oncology clinic but she has been having persistent pain mostly in the lower back. She was seen in the ER last night and was discharged and was seen in the oncology clinic again today. Denies fever or chills. She did have some nasal congestion. Physical Exam Vital Signs: Temp Pulse Resp BP Pulse Ox 98.2 F 68 17 123/69 94 09/16/18 07:53 09/16/18 07:53 09/16/18 07:53 09/16/18 07:53 09/16/18 07:53 Intake & Output 09/15/18 09/16/18 09/17/18 06:59 06:59 06:59 Intake Total 5201 7283 Output Total 2750 5900 Balance 2451 1383 Weight 63.1 kg 63 kg General appearance: PRESENT: no acute distress, well-developed, well-nourished Head exam: PRESENT: atraumatic, normocephalic Eye exam: PRESENT: conjunctiva pink, EOMI, PERRLA. ABSENT: scleral icterus Ear exam: PRESENT: normal external ear exam Mouth exam: PRESENT: moist, tongue midline Neck exam: ABSENT: carotid bruit, JVD, lymphadenopathy, thyromegaly Respiratory exam: PRESENT: clear to auscultation william, symmetrical, unlabored. ABSENT: rales, rhonchi, wheezes Cardiovascular exam: PRESENT: RRR. ABSENT: diastolic murmur, rubs, systolic murmur Pulses: PRESENT: normal dorsalis pedis pul Vascular exam: PRESENT: normal capillary refill GI/Abdominal exam: PRESENT: normal bowel sounds, soft. ABSENT: distended, guarding, mass, organolmegaly, rebound, tenderness Rectal exam: PRESENT: deferred Extremities exam: PRESENT: full ROM. ABSENT: calf tenderness, clubbing, pedal edema Neurological exam: PRESENT: alert, awake, oriented to person, oriented to place, oriented to time, oriented to situation, CN II-XII grossly intact. ABSENT: motor sensory deficit Psychiatric exam: PRESENT: appropriate affect, normal mood. ABSENT: homicidal ideation, suicidal ideation Skin exam: PRESENT: dry, intact, warm. ABSENT: cyanosis, rash Results Laboratory Results: 09/15/18 05:15 09/10/18 04:25 Impressions: Guidance Fluoroscopy 09/04/18 00:00 IMPRESSION: SUCCESSFUL PLACEMENT OF A 5 FR DUAL LUMEN 38 CM PICC IN THE LEFT BASILIC VEIN. Interventional Vascular Procedure 09/04/18 00:00 IMPRESSION: SUCCESSFUL PLACEMENT OF A 5 FR DUAL LUMEN 38 CM PICC IN THE LEFT BASILIC VEIN. PICC Line Insertion 09/04/18 00:00 IMPRESSION: SUCCESSFUL PLACEMENT OF A 5 FR DUAL LUMEN 38 CM PICC IN THE LEFT BASILIC VEIN. Venous Doppler Study 09/12/18 00:00 IMPRESSION: Suboptimal visualization of the basilic vein. Remainder shows no evidence for DVT copyright 2011 [employer]- All Rights Reserved Qualifiers - * PATIENT BEING DISCHARGED WITH ANY OF THE FOLLOWING DIAGNOSIS: No Plan Discharge Plan: Discharged home with self-care. Follow-up with primary care provider within 1 week. Follow-up with hematology, Dr. Cornelius, within 1 week. Take medications as prescribed; she is been provided a prescription for Dilaudid to taper down to her home oxycodone regimen. Drink plenty of water. Return to the emergency department as needed for any concerning symptoms. Time Spent: Greater than 30 Minutes
[2018-09-16 12:08] VITALS: BP 137/72
== END 2018-09-16 13:15 | disposition home or self-care (01) | DRG 812 ==
LOC: 5 14:59
PROVIDERS: ADMIT Internal Medicine; ATTEND Internal Medicine
PROC: 02HV33Z Insertion of Infusion Device into Superior Vena Cava, Percutaneous Approach (ICD-10-PCS; principal; 2018-09-04)
PROC: B518ZZA Fluoroscopy of Superior Vena Cava, Guidance (ICD-10-PCS; 2018-09-04)
PROC: B548ZZA Ultrasonography of Superior Vena Cava, Guidance (ICD-10-PCS; 2018-09-04)
PROC: 30233N1 Transfusion of Nonautologous Red Blood Cells into Peripheral Vein, Percutaneous Approach (ICD-10-PCS; 2018-09-08)
DX: D57.00 Hb-SS disease with crisis, unspecified (principal); F11.20 Opioid dependence, uncomplicated; B37.0 Candidal stomatitis; D63.8 Anemia in other chronic diseases classified elsewhere; I10 Essential (primary) hypertension; J45.909 Unspecified asthma, uncomplicated; K21.9 Gastro-esophageal reflux disease without esophagitis; K59.03 Drug induced constipation; T40.2X5A Adverse effect of other opioids, initial encounter; Y92.230 Patient room in hospital as the place of occurrence of the external cause; F32.9 Major depressive disorder, single episode, unspecified; Z79.899 Other long term (current) drug therapy
CPT/HCPCS: 36415; 36430; 36569; 76937; 77001; 80053; 83615; 85025; 85027; 85045; 86850; 86900; 86901; 86902; 86920; 87804; 93971; 94667; 94799; J1170; J1200; J1642; J1650; J2405; J3490; J7030; P9016

== ENCOUNTER 2018-09-30 13:26 | Outpatient (CLI) | payer MEDICAID ==
[2018-09-30 13:59] VITALS: BP 120/65
[2018-09-30] MEDS ORDERED: PROMETHAZINE HCL INJ 25 MG/1 ML VIAL IV PRN (14:05)
[2018-09-30] MEDS ORDERED: HYDROMORPHONE HCL INJ/PF 2 MG/ML AMPULE IV PRN (14:07)
[2018-09-30] MEDS ORDERED: NORMAL SALINE 1000 ML 1,000 ML IV PRN (14:08)
== END 2018-09-30 16:08 | disposition home or self-care (01) ==
LOC: II 13:26 → 5TH 14:06 → II 16:08
PROVIDERS: ATTEND Internal Medicine
PROC: 3E0337Z Introduction of Electrolytic and Water Balance Substance into Peripheral Vein, Percutaneous Approach (ICD-10-PCS; principal; 2018-09-30)
PROC: 3E033GC Introduction of Other Therapeutic Substance into Peripheral Vein, Percutaneous Approach (ICD-10-PCS; 2018-09-30)
DX: D57.00 Hb-SS disease with crisis, unspecified (principal); E86.0 Dehydration; R11.0 Nausea; R52 Pain, unspecified
CPT/HCPCS: 96375; 96360; 96361; J1170; J2550; 96374

== ENCOUNTER 2018-10-03 14:06 | Outpatient (CLI) | payer MEDICAID ==
[~2018-10-03 14:06] MED LIST changes: -HYDROMORPHONE HCL INJ/PF 2 MG/ML AMPULE IV ONE; +HYDROMORPHONE HCL INJ/PF 2 MG/ML AMPULE IV PRN; -HYDROMORPHONE HCL INJ/PF 2 MG/ML AMPULE ONE; +PROMETHAZINE HCL INJ 25 MG/1 ML VIAL IV PRN
[2018-10-03 14:36] VITALS: BP 112/60
== END 2018-10-03 15:54 | disposition home or self-care (01) ==
LOC: II 14:06 → 5TH 14:09 → II 15:54
PROVIDERS: ATTEND Pediatrics
PROC: 3E0337Z Introduction of Electrolytic and Water Balance Substance into Peripheral Vein, Percutaneous Approach (ICD-10-PCS; principal; 2018-10-03)
PROC: 3E033GC Introduction of Other Therapeutic Substance into Peripheral Vein, Percutaneous Approach (ICD-10-PCS; 2018-10-03)
DX: D57.00 Hb-SS disease with crisis, unspecified (principal); E86.0 Dehydration; R11.0 Nausea; R52 Pain, unspecified
CPT/HCPCS: 96375; 96360; 96361; J1170; J2550; 96374

== ENCOUNTER 2018-10-06 14:14 | Outpatient (CLI) | payer MEDICAID ==
[2018-10-06] MEDS ORDERED: NORMAL SALINE 1000 ML 1,000 ML IV PRN (14:56)
[2018-10-06] MEDS ORDERED: HYDROMORPHONE HCL INJ/PF 2 MG/ML AMPULE IV PRN (14:57)
[2018-10-06 16:14] VITALS: BP 134/66
== END 2018-10-06 16:16 | disposition home or self-care (01) ==
LOC: II 14:14 → 2N 14:17 → II 16:16
PROVIDERS: ATTEND Internal Medicine
PROC: 3E0337Z Introduction of Electrolytic and Water Balance Substance into Peripheral Vein, Percutaneous Approach (ICD-10-PCS; principal; 2018-10-06)
PROC: 3E033GC Introduction of Other Therapeutic Substance into Peripheral Vein, Percutaneous Approach (ICD-10-PCS; 2018-10-06)
DX: D57.00 Hb-SS disease with crisis, unspecified (principal); E86.0 Dehydration; R11.0 Nausea; R52 Pain, unspecified
CPT/HCPCS: J1170; J7030; 96361; 96374

== ENCOUNTER 2018-10-08 13:10 | Outpatient (CLI) | payer MEDICAID ==
[2018-10-08] MEDS ORDERED: HYDROMORPHONE HCL INJ/PF 2 MG/ML AMPULE IV PRN (13:32)
[2018-10-08] MEDS ORDERED: NORMAL SALINE 1000 ML 1,000 ML IV ONE (14:00)
[2018-10-08 14:01] VITALS: BP 118/61
== END 2018-10-08 15:07 | disposition home or self-care (01) ==
LOC: II 13:10 → 5TH 14:02 → II 15:07
PROVIDERS: ATTEND Internal Medicine
PROC: 3E043GC Introduction of Other Therapeutic Substance into Central Vein, Percutaneous Approach (ICD-10-PCS; principal; 2018-10-08)
PROC: 3E0437Z Introduction of Electrolytic and Water Balance Substance into Central Vein, Percutaneous Approach (ICD-10-PCS; 2018-10-08)
DX: D57.00 Hb-SS disease with crisis, unspecified (principal); E86.0 Dehydration; R11.0 Nausea; R52 Pain, unspecified
CPT/HCPCS: 96374; 96360; 96361; J1170

== ENCOUNTER 2018-10-10 10:10 | Outpatient (CLI) | payer MEDICAID ==
[~2018-10-10 10:10] MED LIST changes: +HYDROMORPHONE HCL INJ 2 MG/ML 20 ML MDV IV PRN; -PROMETHAZINE HCL INJ 25 MG/1 ML VIAL IV PRN
[2018-10-10 10:38] VITALS: BP 121/64
== END 2018-10-10 12:23 | disposition home or self-care (01) ==
LOC: II 10:10 → 5TH 10:12 → II 12:23
PROVIDERS: ATTEND Internal Medicine
PROC: 3E033GC Introduction of Other Therapeutic Substance into Peripheral Vein, Percutaneous Approach (ICD-10-PCS; principal; 2018-10-10)
PROC: 3E0337Z Introduction of Electrolytic and Water Balance Substance into Peripheral Vein, Percutaneous Approach (ICD-10-PCS; 2018-10-10)
DX: D57.00 Hb-SS disease with crisis, unspecified (principal); E86.0 Dehydration; R11.0 Nausea; R52 Pain, unspecified
CPT/HCPCS: 96374; 96360; 96361; J1170

== ENCOUNTER 2018-10-15 14:19 | Emergency (ER) | payer MEDICAID ==
[2018-10-15 14:33] VITALS: BP 147/62
[2018-10-15] MEDS ORDERED: NORMAL SALINE 1000 ML 1,000 ML IV ONE (15:32)
[2018-10-15] MEDS ORDERED: ONDANSETRON HCL INJ/PF 4 MG/2 ML SDV IV ONE (15:33)
[2018-10-15] MEDS ORDERED: HYDROMORPHONE HCL INJ/PF 2 MG/ML AMPULE IV ONE (15:37)
--- NOTE | 2018-10-15 15:45 | ER Document Report ---
ED Medical Screen (RME) - General Chief Complaint: Sickle Cell Crisis Stated Complaint: BACK, LEG PAIN Time Seen by Provider: 10/15/18 15:39 Primary Care Provider: LINETTE GALVAN DO [Primary Care Provider] - Follow up as needed Mode of Arrival: Ambulatory Information source: Patient Notes: Patient is a 28-year-old female comes to emergency room complaining of diffuse body pain. Patient has a history of sickle cell disease and feels like she has been getting into a sickle cell crisis. Last time she was here was back in August with the same type presentation. Patient states she is taking her oxycodone 15 mg every 4 hours as directed but her pain medication is just not handling the discomfort. Patient is also due to start her period any day now and she believes that is also adding to the discomfort. She has had a couple bouts of vomiting. Her doctor has changed her from Phenergan to Zofran help with the combination and/or alternating may help with the vomiting portion. She states she does feel like she has been dehydrated. Unable to eat anything today. She brings in with her a 6 mm which from 1 of the local restaurants and a drink stating that all she is attempted to eat or drink today. She denies any fever denies any diarrhea. Patient denies any shortness of breath. I have greeted and performed a rapid initial assessment of this patient. A comprehensive ED assessment and evaluation of the patient, analysis of test results and completion of the medical decision making process will be conducted by additional ED providers. Dictation of this chart was performed using voice recognition software; therefore, there may be some unintended grammatical errors. TRAVEL OUTSIDE OF THE [place] IN LAST 30 DAYS: No - HPI Onset: Yesterday Onset/Duration: Gradual, Persistent Context: History sickle cell disease Quality of pain: Achy, Sharp Severity: Moderate Pain Level: 3 - Related Data Smoking: Non-smoker Frequency of alcohol use: None Drug Abuse: None Allergies/Adverse Reactions: ceftriaxone sodium [From Rocephin] Allergy (Verified 10/15/18 14:21) Cephalosporins Allergy (Verified 10/15/18 14:21) milk [Milk] Allergy (Verified 10/15/18 14:21) Shellfish * [Shellfish] Allergy (Verified 10/15/18 14:21) wheat [Wheat] Allergy (Verified 10/15/18 14:21) Past Medical History - General Information source: Patient - Social History Cigarette use (# per day): No Chew tobacco use (# tins/day): No Frequency of alcohol use: None Drug Abuse: None Lives with: Family Family history: None, Reviewed & Not Pertinent - Past Medical History Cardiac Medical History: Reports: Hx Hypertension, Hx Heart Murmur Denies: Hx Coronary Artery Disease, Hx Heart Attack Pulmonary Medical History: Reports: Hx Asthma, Hx Pneumonia - 2016 Denies: Hx Bronchitis, Hx COPD, Hx Tuberculosis Neurological Medical History: Reports: Hx Migraine, Hx Seizures - HX OF. NO MEDICATIONS. Denies: Hx Cerebrovascular Accident Endocrine Medical History: Denies: Hx Diabetes Mellitus Type 2, Hx Hyperthyroidism, Hx Hypothyroidism Renal/ Medical History: Denies: Hx Peritoneal Dialysis GI Medical History: Reports: Hx Gastroesophageal Reflux Disease Musculoskeltal Medical History: Denies Hx Arthritis, Denies Hx Fibromyalgia Skin Medical History: Reports Hx MRSA Psychiatric Medical History: Reports: Hx Depression - 2014 Past Surgical History: Reports: Hx Adenoidectomy, Hx Cholecystectomy, Hx Oral Surgery - growth removed from under tongue, Hx Tonsillectomy, Other - Port placement 2 and removal for infection, multiple PICC lines, central l. Denies: Hx Hysterectomy, Hx Kidney (Renal Surgery), Hx Pacemaker - Immunizations Hx Diphtheria, Pertussis, Tetanus Vaccination: Yes History of Influenza Vaccine for 04/2017 - 09/2017 Season: Yes Influenza Administration Date for 04/2017 - 09/2017 Season: 03/22/17 Review of Systems - Review of Systems Constitutional: No symptoms reported EENT: No symptoms reported Cardiovascular: No symptoms reported Respiratory: No symptoms reported Gastrointestinal: No symptoms reported Genitourinary: No symptoms reported Female Genitourinary: No symptoms reported Musculoskeletal: See HPI, Muscle pain Skin: No symptoms reported Hematologic/Lymphatic: No symptoms reported Neurological/Psychological: No symptoms reported -: Yes All other systems reviewed and negative Physical Exam - Vital signs Vitals: Temp Pulse Resp BP Pulse Ox 98.0 F 100 18 147/62 H 100 10/15/18 14:32 10/15/18 14:32 10/15/18 14:32 10/15/18 14:32 10/15/18 14:32 Interpretation: Normal, Hypertensive - Notes Notes: PHYSICAL EXAMINATION: GENERAL: Well-appearing, well-nourished and in no acute distress. HEAD: Atraumatic, normocephalic. EYES: Pupils equal round and reactive to light, extraocular movements intact, conjunctiva are normal. ENT: Nares patent, oropharynx clear without exudates. Moist mucous membranes. NECK: Normal range of motion, supple without lymphadenopathy LUNGS: Breath sounds clear to auscultation bilaterally and equal. No wheezes rales or rhonchi. HEART: Regular rate and rhythm without murmurs ABDOMEN: Soft, nontender, nondistended abdomen. No guarding, no rebound. No masses appreciated. Female : deferred Musculoskeletal: Normal range of motion, NEUROLOGICAL: Normal speech, normal gait. Normal sensory, motor exams PSYCH: Normal mood, normal affect. Course - Vital Signs Vital signs: Temp Pulse Resp BP Pulse Ox 98.0 F 100 18 147/62 H 100 10/15/18 14:32 10/15/18 14:32 10/15/18 14:32 10/15/18 14:32 10/15/18 14:32 Doctor's Discharge - Discharge Referrals: LINETTE GALVAN DO [Primary Care Provider] - Follow up as needed
[2018-10-15 16:48] LABS: ABSOLUTE RETICS # 0.071 10^6/uL (0.028-0.122); HEMATOCRIT 34.1 % (36.0-47.0); HEMOGLOBIN 11.7 g/dL (12.0-15.5); MEAN CORPUSCULAR HGB CONC 34.4 g/dL (32.0-36.0); MEAN CORPUSCULAR VOLUME 93 fl (80-97); PLATELET COUNT 254 10^3/uL (150-450); RED BLOOD COUNT 3.67 10^6/uL (3.72-5.28); RED CELL DISTRIBUTION WIDTH 22.5 % (11.5-14.0); RETICULOCYTE COUNT (AUTO) 1.93 % (0.66-2.85); WHITE BLOOD COUNT 9.1 10^3/uL (4.0-10.5)
[2018-10-15 16:53] LABS: ALANINE AMINOTRANSFERASE 30 U/L (9-52); ALBUMIN 5.2 g/dL (3.5-5.0); ALKALINE PHOSPHATASE 68 U/L (38-126); ANION GAP 12 (5-19); ASPARTATE AMINO TRANSFERASE 33 U/L (14-36); BILIRUBIN,DIRECT 0.4 mg/dL (0.0-0.4); BILIRUBIN,TOTAL 1.8 mg/dL (0.2-1.3); BLOOD UREA NITROGEN 8 mg/dL (7-20); CALCIUM 10.2 mg/dL (8.4-10.2); CARBON DIOXIDE 23 mmol/L (22-30); CHLORIDE 105 mmol/L (98-107); GLUCOSE 85 mg/dL (75-110); LIPASE 340.5 U/L (23-300); POTASSIUM 4.4 mmol/L (3.6-5.0); SODIUM 139.9 mmol/L (137-145); TOTAL PROTEIN 9.1 g/dL (6.3-8.2)
[2018-10-15 17:14] LABS: ABSOLUTE LYMPHOCYTES# (MANUAL) 3.6 10^3/uL (0.5-4.7); ABSOLUTE MONOCYTES # (MANUAL) 0.9 10^3/uL (0.1-1.4); ABSOLUTE NEUTROPHILS# (MANUAL) 4.4 10^3/uL (1.7-8.2); BASOPHILS % (MANUAL) 0 % (0-2); EOSINOPHILS % (MANUAL) 2 % (0-6); LYMPHOCYTES % (MANUAL) 40 % (13-45); MONOCYTES % (MANUAL) 10 % (3-13); SEGMENTED NEUTROPHILS % (MAN) 48 % (42-78); TOTAL CELLS COUNTED 100
[2018-10-15 17:15] LABS: ANISOCYTOSIS 3+
[2018-10-15 17:16] LABS: OVALOCYTES 1+; PLATELET COMMENT ADEQUATE; POIKILOCYTOSIS 2+; SICKLE RED CELLS SLIGHT; TARGET CELLS 1+
== END 2018-10-15 20:05 | disposition left against medical advice (07) ==
LOC: ER 14:19
DX: D57.00 Hb-SS disease with crisis, unspecified (principal); R11.10 Vomiting, unspecified; I10 Essential (primary) hypertension; J45.909 Unspecified asthma, uncomplicated; Z88.1 Allergy status to other antibiotic agents; Z91.011 Allergy to milk products; Z91.013 Allergy to seafood; Z91.018 Allergy to other foods
CPT/HCPCS: 99281; 96361; 96374; 96375; 36415; 83690; 85025; 81025; 85045; 80053; J1170; J2405; J7030

== ENCOUNTER 2018-10-20 08:22 | Emergency (ER) | payer MEDICAID ==
[2018-10-20 08:29] VITALS: BP 118/66
[2018-10-20] MEDS ORDERED: ONDANSETRON HCL INJ/PF 4 MG/2 ML SDV IV ONE (09:16)
[2018-10-20] MEDS ORDERED: KETOROLAC TROMETHAMINE INJ/PF 30 MG/1 ML SDV IV ONE (09:16)
[2018-10-20] MEDS ORDERED: NORMAL SALINE 1000 ML 1,000 ML IV ONE (09:16)
--- NOTE | 2018-10-20 09:18 | ER Document Report ---
ED Medical Screen (RME) - General Chief Complaint: Pain All Over Stated Complaint: HEADACHE Time Seen by Provider: 10/20/18 09:12 Primary Care Provider: LINETTE GALVAN DO [Primary Care Provider] - Follow up as needed Information source: Patient TRAVEL OUTSIDE OF THE [place] IN LAST 30 DAYS: No - HPI Patient complains to provider of: Pain all over Notes: 10/20/18 09:17 Patient is here with complaints of pain all over. The patient has a history of sickle cell disease, she states that this feels like sickle cell pain that she has had in the past. She complains of a headache. She denies any blurred or loss vision. No numbness, tingling, weakness. No head injury. No fever. She had nausea vomiting yesterday. She denies any chest pain. Physical exam: Patient is nontoxic-appearing, she does appear to be uncomfortable. Lungs clear and equal throughout. Heart sounds normal. No CVA tenderness. Nonfocal neuro logical exam. Plan: I have ordered an IV, fluids, Toradol, Zofran, labs, urine, chest x-ray. An initial examination was made on the patient as part of the triage process, and it was determined a more comprehensive evaluation was necessary. Initial labs were ordered and patient was transferred to another provider in the ED who assumed care and finished evaluation and plan. - Related Data Allergies/Adverse Reactions: ceftriaxone sodium [From Rocephin] Allergy (Verified 10/20/18 08:49) Cephalosporins Allergy (Verified 10/20/18 08:49) milk [Milk] Allergy (Verified 10/20/18 08:49) Shellfish * [Shellfish] Allergy (Verified 10/20/18 08:49) wheat [Wheat] Allergy (Verified 10/20/18 08:49) Past Medical History - Social History Chew tobacco use (# tins/day): No Frequency of alcohol use: Occasional Drug Abuse: None Family history: None, Reviewed & Not Pertinent - Past Medical History Cardiac Medical History: Reports: Hx Hypertension, Hx Heart Murmur Denies: Hx Coronary Artery Disease, Hx Heart Attack Pulmonary Medical History: Reports: Hx Asthma, Hx Pneumonia - 2017 Denies: Hx Bronchitis, Hx COPD, Hx Tuberculosis Neurological Medical History: Reports: Hx Migraine, Hx Seizures - HX OF. NO MEDICATIONS. Denies: Hx Cerebrovascular Accident Endocrine Medical History: Denies: Hx Diabetes Mellitus Type 2, Hx Hyperthyroidism, Hx Hypothyroidism Renal/ Medical History: Denies: Hx Peritoneal Dialysis GI Medical History: Reports: Hx Gastroesophageal Reflux Disease Musculoskeltal Medical History: Denies Hx Arthritis, Denies Hx Fibromyalgia Skin Medical History: Reports Hx MRSA Psychiatric Medical History: Reports: Hx Depression - 2014 Past Surgical History: Reports: Hx Adenoidectomy, Hx Cholecystectomy, Hx Oral Surgery - growth removed from under tongue, Hx Tonsillectomy, Other - Port placement 2 and removal for infection, multiple PICC lines, central l. Denies: Hx Hysterectomy, Hx Kidney (Renal Surgery), Hx Pacemaker - Immunizations Hx Diphtheria, Pertussis, Tetanus Vaccination: Yes History of Influenza Vaccine for 04/2017 - 09/2017 Season: Yes Influenza Administration Date for 04/2017 - 09/2017 Season: 03/22/17 Physical Exam - Vital signs Vitals: Temp Pulse Resp BP Pulse Ox 98.1 F 94 20 118/66 100 10/20/18 08:28 10/20/18 08:28 10/20/18 08:28 10/20/18 08:28 10/20/18 08:28 Course - Vital Signs Vital signs: Temp Pulse Resp BP Pulse Ox 98.1 F 94 20 118/66 100 10/20/18 08:28 10/20/18 08:28 10/20/18 08:28 10/20/18 08:28 10/20/18 08:28 Doctor's Discharge - Discharge Referrals: LINETTE GALVAN DO [Primary Care Provider] - Follow up as needed
[2018-10-20 10:05] LABS: APPEARANCE,URINE CLEAR; BILIRUBIN,URINE NEGATIVE (NEGATIVE); COLOR,URINE YELLOW; GLUCOSE, URINE NEGATIVE (NEGATIVE); KETONES,URINE NEGATIVE (NEGATIVE); LEUKOCYTE ESTERASE,URINE MODERATE (NEGATIVE); NITRITE,URINE NEGATIVE (NEGATIVE); PROTEIN,URINE NEGATIVE (NEGATIVE); URINE SPECIFIC GRAVITY 1.012; UROBILINOGEN,URINE NEGATIVE mg/dL (<2.0)
[2018-10-20 10:08] LABS: ABSOLUTE RETICS # 0.124 10^6/uL (0.028-0.122); HEMATOCRIT 27.4 % (36.0-47.0); HEMOGLOBIN 9.7 g/dL (12.0-15.5); MEAN CORPUSCULAR HEMOGLOBIN 32.6 pg (27.0-33.4); MEAN CORPUSCULAR HGB CONC 35.4 g/dL (32.0-36.0); MEAN CORPUSCULAR VOLUME 92 fl (80-97); PLATELET COUNT 430 10^3/uL (150-450); RED BLOOD COUNT 2.97 10^6/uL (3.72-5.28); RED CELL DISTRIBUTION WIDTH 23.3 % (11.5-14.0); RETICULOCYTE COUNT (AUTO) 4.16 % (0.66-2.85); WHITE BLOOD COUNT 7.9 10^3/uL (4.0-10.5)
[2018-10-20] MEDS ORDERED: HYDROMORPHONE HCL INJ/PF 2 MG/ML AMPULE IV ONE (10:13)
--- NOTE | 2018-10-20 10:16 | ER Document Report ---
ED General - General Chief Complaint: Pain All Over Stated Complaint: HEADACHE Time Seen by Provider: 10/20/18 09:12 Primary Care Provider: LINETTE GALVAN DO [Primary Care Provider] - Follow up as needed TRAVEL OUTSIDE OF THE [place] IN LAST 30 DAYS: No - HPI Notes: Patient is a 28-year-old female that presents to the emergency department for chief complaint of diffuse body pain. Patient has sickle cell anemia and states she is having a pain crisis. She is reporting pain all over her body and head. She states this feels similar to pain crisis she has had in the past. The headache is bilateral and diffuse. She did take 1 Fioricet at home with minimal relief. She has taken her oxycodone 15 mg around 530 this morning. She states the pain is been getting worse over the last few days. Her last blood transfusion was at the end of August. She states that she usually has worsening pain around her menstrual cycle and did begin her menses yesterday. She denies associated chest pain, difficulty breathing, fevers and chills. Past Medical History: Sickle cell anemia Past Surgical History: Reviewed in chart Social History: Denies drugs alcohol and tobacco Family History: Reviewed and noncontributory for presenting illness Allergies: Reviewed, see documented allergy list. REVIEW OF SYSTEMS: CONSTITUTIONAL : No fever No chills No diaphoresis No recent illness EENT: No vision changes No congestion No sore throat CARDIOVASCULAR: No chest pain No palpitations RESPIRATORY: No shortness of breath No cough No difficulty breathing GASTROINTESTINAL: No abdominal pain No nausea No vomiting No diarrhea GENITOURINARY: No dysuria No hematuria No difficulty urinating MUSCULOSKELETAL: No back pain No leg pain No arm pain SKIN: No rashes No lesions LYMPHATIC: No swollen, enlarged glands. NEUROLOGICAL: No lightheadedness No headache No weakness No paresthesias PSYCHIATRIC: No anxiety No depression PHYSICAL EXAMINATION: Vital signs reviewed, nursing noted reviewed. GENERAL: Appears uncomfortable, well-nourished HEAD: Atraumatic, normocephalic. EYES: Eyes appear normal, extraocular movements intact, sclera anicteric, conjunctiva are normal. ENT: nares patent, oropharynx clear without exudates. Moist mucous membranes. NECK: Normal range of motion, supple without lymphadenopathy LUNGS: Breath sounds clear to auscultation bilaterally and equal. No wheezes rales or rhonchi. HEART: Regular rate and rhythm without murmurs ABDOMEN: Soft, nontender, normoactive bowel sounds. No rebound, guarding, or rigidity. No masses appreciated. EXTREMITIES: Nontender, good range of motion, no pitting or edema. NEUROLOGICAL: No focal neurological deficits. Moves all extremities spontaneously Motor and sensory grossly intact on exam. PSYCH: Normal mood, normal affect. SKIN: Warm, Dry, normal turgor, no rashes or lesions noted on exposed skin - Related Data Allergies/Adverse Reactions: ceftriaxone sodium [From Rocephin] Allergy (Verified 10/20/18 08:49) Cephalosporins Allergy (Verified 10/20/18 08:49) milk [Milk] Allergy (Verified 10/20/18 08:49) Shellfish * [Shellfish] Allergy (Verified 10/20/18 08:49) wheat [Wheat] Allergy (Verified 10/20/18 08:49) Past Medical History - General Information source: Patient - Social History Smoking Status: Never Smoker Chew tobacco use (# tins/day): No Frequency of alcohol use: Occasional Drug Abuse: None Family History: DM, Malignancy - Brother with Hodgkin's lymphoma. Maternal grandfather with lung cancer., Other - sickle trait in Mother and Father Patient has suicidal ideation: No Patient has homicidal ideation: No - Past Medical History Cardiac Medical History: Reports: Hx Hypertension, Hx Heart Murmur Denies: Hx Coronary Artery Disease, Hx Heart Attack Pulmonary Medical History: Reports: Hx Asthma, Hx Pneumonia - 2016 Denies: Hx Bronchitis, Hx COPD, Hx Tuberculosis Neurological Medical History: Reports: Hx Migraine, Hx Seizures - HX OF. NO MEDICATIONS. Denies: Hx Cerebrovascular Accident Endocrine Medical History: Denies: Hx Diabetes Mellitus Type 2, Hx Hyperthyroidism, Hx Hypothyroidism Renal/ Medical History: Denies: Hx Peritoneal Dialysis GI Medical History: Reports: Hx Gastroesophageal Reflux Disease Musculoskeletal Medical History: Denies Hx Arthritis, Denies Hx Fibromyalgia Skin Medical History: Reports Hx MRSA Psychiatric Medical History: Reports: Hx Depression - 2014 Past Surgical History: Reports: Hx Adenoidectomy, Hx Cholecystectomy, Hx Oral Surgery - growth removed from under tongue, Hx Tonsillectomy, Other - Port placement 2 and removal for infection, multiple PICC lines, central l. Denies: Hx Hysterectomy, Hx Kidney (Renal Surgery), Hx Pacemaker - Immunizations Hx Diphtheria, Pertussis, Tetanus Vaccination: Yes Hx Pneumococcal Vaccination: 07/08/11 Physical Exam - Vital signs Vitals: Temp Pulse Resp BP Pulse Ox 98.1 F 94 20 118/66 100 10/20/18 08:28 10/20/18 08:28 10/20/18 08:28 10/20/18 08:28 10/20/18 08:28 Course - Re-evaluation Re-evalutation: 10/20/18 10:16 Vitals reviewed. Nursing notes reviewed. Patient ordered fluids, Dilaudid and Zofran for symptom medic management. 10/20/18 10:56 Patient's lab work shows hemoglobin of 9.7 which is good for this patient. She does have an elevation in her reticulocyte count at 4. She is not requiring blood transfusion currently. Patient has no complaint of chest pain to suggest acute chest syndrome or require further imaging. 10/20/18 11:00 On reevaluation patient has not yet received IV medication because of issues obtaining an IV on her. I did offer ultrasound IV and IV hydration as well as IV pain medication versus receiving IM medication for her pain. Patient does not wish to have any more attempts to obtain an IV. She will be given IM Dilaudid and was encouraged to drink water at home to stay well-hydrated. She will call Dr. Daugherty to establish follow-up appointment. She is stable at discharge. Laboratory 10/20/18 10/20/18 10/20/18 09:40 09:40 09:40 WBC 7.9 RBC 2.97 L Hgb 9.7 L Hct 27.4 L MCV 92 MCH 32.6 MCHC 35.4 RDW 23.3 H Plt Count 430 Total Counted 100 Seg Neutrophils % Not Reportable Seg Neuts % (Manual) 47 Band Neutrophils % 1 L Lymphocytes % Not Reportable Lymphocytes % (Manual) 43 Atypical Lymphs % 1 Monocytes % Not Reportable Monocytes % (Manual) 5 Eosinophils % Not Reportable Eosinophils % (Manual) 2 Basophils % Not Reportable Basophils % (Manual) 1 Absolute Neutrophils Not Reportable Abs Neuts (Manual) 3.8 Absolute Lymphocytes Not Reportable Abs Lymphs (Manual) 3.5 Absolute Monocytes Not Reportable Abs Monocytes (Manual) 0.4 Absolute Eosinophils Not Reportable Absolute Eos (Manual) 0.2 Absolute Basophils Not Reportable Abs Basophils (Manual) 0.1 Nucleated RBCs 2 Platelet Comment ADEQUATE Polychromasia 2+ Poikilocytosis 2+ Anisocytosis 3+ Pappenheimer Bodies PRESENT Sickle Cells SLIGHT Target Cells SLIGHT Tear Drop Cells SLIGHT Ovalocytes 1+ Schistocytes 1+ RBC Morph Comment Retic Count (auto) 4.16 H Absolute Retic 0.124 H Sodium 140.5 Potassium 4.2 Chloride 107 Carbon Dioxide 24 Anion Gap 10 BUN 6 L Creatinine 0.54 Est GFR ( Amer) > 60 Est GFR (Non-Af Amer) > 60 Glucose 92 Calcium 9.6 Total Bilirubin 2.1 H Direct Bilirubin 0.4 Neonat Total Bilirubin Not Reportable Neonat Direct Bilirubin Not Reportable Neonat Indirect Bili Not Reportable AST 37 H ALT 23 Alkaline Phosphatase 52 Total Protein 7.7 Albumin 4.4 Lipase 142.7 Urine Color YELLOW Urine Appearance CLEAR Urine pH 6.0 Ur Specific [place] 1.012 Urine Protein NEGATIVE Urine Glucose (UA) NEGATIVE Urine Ketones NEGATIVE Urine Blood LARGE H Urine Nitrite NEGATIVE Urine Bilirubin NEGATIVE Urine Urobilinogen NEGATIVE Ur Leukocyte Esterase MODERATE H Urine WBC (Auto) 9 Urine RBC (Auto) 4 Urine Bacteria (Auto) TRACE Squamous Epi Cells Auto 7 Urine Mucus (Auto) RARE Urine Ascorbic Acid NEGATIVE Urine HCG, Qual NEGATIVE Chest X-Ray 10/20/18 09:16 IMPRESSION: 1. NO ACUTE RADIOGRAPHIC FINDING IN THE CHEST. - Vital Signs Vital signs: Temp Pulse Resp BP Pulse Ox 98.1 F 94 20 118/66 100 10/20/18 08:28 10/20/18 08:28 10/20/18 08:28 10/20/18 08:28 10/20/18 08:28 - Laboratory Result Diagrams: 10/20/18 09:40 10/20/18 09:40 Laboratory results interpreted by me: 10/20/18 10/20/18 10/20/18 09:40 09:40 09:40 RBC 2.97 L Hgb 9.7 L Hct 27.4 L RDW 23.3 H Band Neutrophils % 1 L Retic Count (auto) 4.16 H Absolute Retic 0.124 H BUN 6 L Total Bilirubin 2.1 H AST 37 H Urine Blood LARGE H Ur Leukocyte Esterase MODERATE H Discharge - Discharge Clinical Impression: Sickle cell anemia with pain Condition: Stable Disposition: HOME, SELF-CARE Instructions: Sickle Cell Crisis ([facility]) Additional Instructions: Please return to the emergency department if you have any worsening, or concern of your symptoms. Please return to the emergency department if you develop chest pain, difficulty breathing, severe abdominal pain, or ongoing vomiting. Please follow-up with your primary care physician in 2-3 days and any other recommended physicians. If prescribed, take all medications as directed. If you have any questions or concerns do not hesitate to return the emergency department for evaluation. Continue taking her pain medication at home as prescribed Drink lots of water to stay well hydrated. Call Dr. Daugherty to establish close outpatient follow-up in the next few days Referrals: LINETTE GALVAN DO [Primary Care Provider] - Follow up as needed BRUNA MENJIVAR MD [ACTIVE STAFF] - Follow up in 3-5 days
[2018-10-20 10:23] LABS: ABSOLUTE LYMPHOCYTES# (MANUAL) 3.5 10^3/uL (0.5-4.7); ABSOLUTE MONOCYTES # (MANUAL) 0.4 10^3/uL (0.1-1.4); ABSOLUTE NEUTROPHILS# (MANUAL) 3.8 10^3/uL (1.7-8.2); BAND NEUTROPHILS % (MANUAL) 1 % (3-5); BASOPHILS % (MANUAL) 1 % (0-2); EOSINOPHILS % (MANUAL) 2 % (0-6); LYMPHOCYTES % (MANUAL) 43 % (13-45); MONOCYTES % (MANUAL) 5 % (3-13); NUCLEATED RED BLOOD CELLS 2 /100 WBC (0); SEGMENTED NEUTROPHILS % (MAN) 47 % (42-78); TOTAL CELLS COUNTED 100
[2018-10-20 10:27] LABS: ALANINE AMINOTRANSFERASE 23 U/L (9-52); ALBUMIN 4.4 g/dL (3.5-5.0); ALKALINE PHOSPHATASE 52 U/L (38-126); ANION GAP 10 (5-19); ANISOCYTOSIS 3+; ASPARTATE AMINO TRANSFERASE 37 U/L (14-36); BILIRUBIN,DIRECT 0.4 mg/dL (0.0-0.4); BILIRUBIN,TOTAL 2.1 mg/dL (0.2-1.3); BLOOD UREA NITROGEN 6 mg/dL (7-20); CALCIUM 9.6 mg/dL (8.4-10.2); CARBON DIOXIDE 24 mmol/L (22-30); CHLORIDE 107 mmol/L (98-107); GLUCOSE 92 mg/dL (75-110); LIPASE 142.7 U/L (23-300); OVALOCYTES 1+; POIKILOCYTOSIS 2+; POLYCHROMASIA 2+; POTASSIUM 4.2 mmol/L (3.6-5.0); SICKLE RED CELLS SLIGHT; SODIUM 140.5 mmol/L (137-145); TARGET CELLS SLIGHT; TOTAL PROTEIN 7.7 g/dL (6.3-8.2)
[2018-10-20 10:28] LABS: PAPPENHEIMER BODIES PRESENT; SCHISTOCYTES 1+; TEAR DROP CELLS SLIGHT
[2018-10-20 10:29] LABS: PLATELET COMMENT ADEQUATE
--- NOTE | 2018-10-20 10:37 | RADIOLOGY REPORT (SQ) ---
EXAM DESCRIPTION: CHEST 2 VIEWS COMPLETED DATE/TIME: 10/20/2018 10:04 am REASON FOR STUDY: pain all over, sickle cell COMPARISON: 09/02/2018 None. EXAM PARAMETERS: NUMBER OF VIEWS: two views TECHNIQUE: Digital Frontal and Lateral radiographic views of the chest acquired. RADIATION DOSE: NA LIMITATIONS: none FINDINGS: LUNGS AND PLEURA: No opacities, masses or pneumothorax. No pleural effusion. MEDIASTINUM AND HILAR STRUCTURES: No masses or contour abnormalities. HEART AND VASCULAR STRUCTURES: Heart normal size. No evidence for failure. BONES: No acute findings. HARDWARE: None in the chest. OTHER: No other significant finding. IMPRESSION: 1. NO ACUTE RADIOGRAPHIC FINDING IN THE CHEST. TECHNICAL DOCUMENTATION: JOB ID: [id number] [employer]- All Rights Reserved Reading location - IP/workstation name: [email or web address]
[2018-10-20] MEDS ORDERED: ONDANSETRON 4 MG TAB.RAPDIS PO ONE (11:00)
[2018-10-20] MEDS ORDERED: HYDROMORPHONE HCL INJ/PF 2 MG/ML AMPULE IM ONE (11:00)
== END 2018-10-20 11:57 | disposition home or self-care (01) ==
LOC: ER 08:22
DX: D57.00 Hb-SS disease with crisis, unspecified (principal); R51 Headache; M79.10 Myalgia, unspecified site; Z79.899 Other long term (current) drug therapy; I10 Essential (primary) hypertension; J45.909 Unspecified asthma, uncomplicated
CPT/HCPCS: 99284; 96372; 36415; 83690; 85025; 81025; 85045; 80053; 81001; 71046; S0119; J1170

== ENCOUNTER 2018-10-27 14:20 | Outpatient (CLI) | payer MEDICAID ==
[2018-10-27 14:39] VITALS: BP 121/64
[2018-10-27] MEDS ORDERED: NORMAL SALINE 1000 ML 1,000 ML IV PRN (15:00)
[2018-10-27] MEDS ORDERED: HYDROMORPHONE HCL INJ/PF 2 MG/ML AMPULE IV PRN (15:01)
[2018-10-27] MEDS ORDERED: ONDANSETRON HCL INJ/PF 4 MG/2 ML SDV IV PRN (15:01)
== END 2018-10-27 16:30 | disposition home or self-care (01) ==
LOC: II 14:20 → 2S 14:24 → II 16:30
PROVIDERS: ATTEND Internal Medicine
PROC: 3E033GC Introduction of Other Therapeutic Substance into Peripheral Vein, Percutaneous Approach (ICD-10-PCS; principal; 2018-10-27)
PROC: 3E0337Z Introduction of Electrolytic and Water Balance Substance into Peripheral Vein, Percutaneous Approach (ICD-10-PCS; 2018-10-27)
DX: D57.00 Hb-SS disease with crisis, unspecified (principal); E86.0 Dehydration; R11.0 Nausea; R52 Pain, unspecified
CPT/HCPCS: 96374; 96375; J1170; J2405; J7030; 96361

== ENCOUNTER 2018-10-28 13:36 | Inpatient (IN) | payer MEDICAID ==
[2018-10-28] MEDS ORDERED: ONDANSETRON HCL INJ/PF 4 MG/2 ML SDV IV ONE (14:23)
[2018-10-28] MEDS ORDERED: NORMAL SALINE 1000 ML 1,000 ML IV ONE (14:23)
[2018-10-28] MEDS ORDERED: KETOROLAC TROMETHAMINE INJ/PF 30 MG/1 ML SDV IV ONE (14:23)
--- NOTE | 2018-10-28 14:25 | ER Document Report ---
ED Medical Screen (RME) - General Chief Complaint: Sickle Cell Crisis Stated Complaint: GENERAL WEAKNESS Time Seen by Provider: 10/28/18 14:17 Primary Care Provider: LINETTE GALVAN DO [Primary Care Provider] - Follow up as needed Mode of Arrival: Ambulatory Information source: Patient TRAVEL OUTSIDE OF THE [place] IN LAST 30 DAYS: No - HPI Patient complains to provider of: SICKLE CELL Notes: 10/28/18 14:24 Patient sent in by her doctor for sickle cell crisis. Patient has a history of sickle cell disease. Is been having generalized pain for the last few weeks. They have been attempting to treat her as an outpatient but nothing seems to be working. No fever. She has had some nausea vomiting. No chest pain or shortness of breath. She complains of pain everywhere. Feels like similar sickle cell crisis. Exam No distress, nontoxic-appearing. Lungs clear and equal throughout. Possible systolic murmur noted. Plan CBC, CMP, UA, urine , reticulocyte count, IV, IV fluids, Toradol. Zofran. An initial examination was made on the patient as part of the triage process, and it was determined a more comprehensive evaluation was necessary. Initial labs were ordered and patient was transferred to another provider in the ED who assumed care and finished evaluation and plan. - Related Data Allergies/Adverse Reactions: ceftriaxone sodium [From Rocephin] Allergy (Verified 10/20/18 08:49) Cephalosporins Allergy (Verified 10/20/18 08:49) milk [Milk] Allergy (Verified 10/20/18 08:49) Shellfish * [Shellfish] Allergy (Verified 10/20/18 08:49) wheat [Wheat] Allergy (Verified 10/20/18 08:49) Past Medical History - Social History Family history: None, Reviewed & Not Pertinent - Past Medical History Cardiac Medical History: Reports: Hx Hypertension, Hx Heart Murmur Denies: Hx Coronary Artery Disease, Hx Heart Attack Pulmonary Medical History: Reports: Hx Asthma, Hx Pneumonia - 2017 Denies: Hx Bronchitis, Hx COPD, Hx Tuberculosis Neurological Medical History: Reports: Hx Migraine, Hx Seizures - HX OF. NO MEDICATIONS. Denies: Hx Cerebrovascular Accident Endocrine Medical History: Denies: Hx Diabetes Mellitus Type 2, Hx Hyperthyroidism, Hx Hypothyroidism Renal/ Medical History: Denies: Hx Peritoneal Dialysis GI Medical History: Reports: Hx Gastroesophageal Reflux Disease Musculoskeltal Medical History: Denies Hx Arthritis, Denies Hx Fibromyalgia Skin Medical History: Reports Hx MRSA Psychiatric Medical History: Reports: Hx Depression - 2014 Past Surgical History: Reports: Hx Adenoidectomy, Hx Cholecystectomy, Hx Oral Surgery - growth removed from under tongue, Hx Tonsillectomy, Other - Port placement 2 and removal for infection, multiple PICC lines, central l. Denies: Hx Hysterectomy, Hx Kidney (Renal Surgery), Hx Pacemaker - Immunizations Hx Diphtheria, Pertussis, Tetanus Vaccination: Yes History of Influenza Vaccine for 04/2017 - 09/2017 Season: Yes Influenza Administration Date for 04/2017 - 09/2017 Season: 03/22/17 Physical Exam - Vital signs Vitals: Temp Pulse Resp BP Pulse Ox 98.4 F 84 18 140/60 H 100 10/28/18 13:44 10/28/18 13:44 10/28/18 13:44 10/28/18 13:44 10/28/18 13:44 Course - Vital Signs Vital signs: Temp Pulse Resp BP Pulse Ox 98.4 F 84 18 140/60 H 100 10/28/18 13:44 10/28/18 13:44 10/28/18 13:44 10/28/18 13:44 10/28/18 13:44 Doctor's Discharge - Discharge Referrals: LINETTE GALVAN DO [Primary Care Provider] - Follow up as needed
[2018-10-28 15:35] LABS: ABSOLUTE BASOPHILS # (AUTO) 0.1 10^3/uL (0.0-0.2); ABSOLUTE EOSINOPHILS # (AUTO) 0.1 10^3/uL (0.0-0.6); ABSOLUTE MONOCYTES (AUTO) 0.6 10^3/uL (0.1-1.4); ABSOLUTE NEUT (AUTO) 5.1 10^3/uL (1.7-8.2); ABSOLUTE RETICS # 0.144 10^6/uL (0.028-0.122); BASOPHILS % (AUTO) 1.3 % (0-2); EOSINOPHILS % (AUTO) 1.2 % (0-6); HEMATOCRIT 30.6 % (36.0-47.0); HEMOGLOBIN 10.7 g/dL (12.0-15.5); LYMPHOCYTES % (AUTO) 25.1 % (13-45); MEAN CORPUSCULAR HEMOGLOBIN 32.9 pg (27.0-33.4); MEAN CORPUSCULAR HGB CONC 34.9 g/dL (32.0-36.0); MEAN CORPUSCULAR VOLUME 94 fl (80-97); MONOCYTES % (AUTO) 7.7 % (3-13); PLATELET COUNT 417 10^3/uL (150-450); RED BLOOD COUNT 3.25 10^6/uL (3.72-5.28); RED CELL DISTRIBUTION WIDTH 22.5 % (11.5-14.0); RETICULOCYTE COUNT (AUTO) 4.43 % (0.66-2.85); SEGMENTED NEUTROPHILS % (AUTO) 64.7 % (42-78); TOTAL CELLS COUNTED % (AUTO) 100 %; WHITE BLOOD COUNT 7.9 10^3/uL (4.0-10.5)
[2018-10-28 15:39] LABS: APPEARANCE,URINE SLIGHTLY-CLOUDY; BILIRUBIN,URINE NEGATIVE (NEGATIVE); COLOR,URINE YELLOW; GLUCOSE, URINE NEGATIVE (NEGATIVE); KETONES,URINE NEGATIVE (NEGATIVE); LEUKOCYTE ESTERASE,URINE TRACE (NEGATIVE); NITRITE,URINE NEGATIVE (NEGATIVE); PROTEIN,URINE NEGATIVE (NEGATIVE); UROBILINOGEN,URINE NEGATIVE mg/dL (<2.0)
[2018-10-28 15:53] LABS: ALANINE AMINOTRANSFERASE 25 U/L (9-52); ALBUMIN 4.3 g/dL (3.5-5.0); ALKALINE PHOSPHATASE 49 U/L (38-126); ANION GAP 6 (5-19); ASPARTATE AMINO TRANSFERASE 35 U/L (14-36); BILIRUBIN,DIRECT 0.1 mg/dL (0.0-0.4); BILIRUBIN,TOTAL 1.1 mg/dL (0.2-1.3); BLOOD UREA NITROGEN 6 mg/dL (7-20); CALCIUM 9.4 mg/dL (8.4-10.2); CARBON DIOXIDE 26 mmol/L (22-30); CHLORIDE 107 mmol/L (98-107); POTASSIUM 4.3 mmol/L (3.6-5.0); SODIUM 139.4 mmol/L (137-145); TOTAL PROTEIN 7.3 g/dL (6.3-8.2)
[2018-10-28 16:03] LABS: ANISOCYTOSIS 3+; HOWELL-JOLLY BODIES PRESENT; PLATELET COMMENT ADEQUATE; POIKILOCYTOSIS 1+; POLYCHROMASIA 1+; SICKLE RED CELLS 1+; TARGET CELLS SLIGHT
[2018-10-28 16:05] LABS: GLUCOSE 68 mg/dL (75-110)
[2018-10-28] MEDS ORDERED: HYDROMORPHONE HCL INJ/PF 2 MG/ML AMPULE IV ONE (16:39)
[2018-10-28] MEDS ORDERED: DIPHENHYDRAMINE HCL 25 MG CAPSULE PO ONE (16:39)
--- NOTE | 2018-10-28 16:46 | ER Document Report ---
ED General Pain - General Chief Complaint: Sickle Cell Crisis Stated Complaint: GENERAL WEAKNESS Time Seen by Provider: 10/28/18 14:17 Primary Care Provider: LINETTE GALVAN DO [Primary Care Provider] - Follow up as needed Mode of Arrival: Ambulatory TRAVEL OUTSIDE OF THE [place] IN LAST 30 DAYS: No - HPI Notes: Patient is a 28-year-old female that presents to the emergency department for chief complaint of sickle cell pain. Patient reports severe pain all over her body. She states nothing that she is doing has been helping. She is on oxycodone 15 mg at home. She was seen in the emergency room on 10/20 with the same pain. She denies any change or new pain since her previous visit to the emergency room. Patient states she has had multiple outpatient infusions of pain medicine and fluids which have not been helping. She denies any chest pain or shortness of breath today. She denies any fever chills or recent illness. Past Medical History: Sickle cell anemia Past Surgical History: Reviewed in chart Social History: Denies drugs alcohol and tobacco Family History: Reviewed and noncontributory for presenting illness Allergies: Reviewed, see documented allergy list. REVIEW OF SYSTEMS: CONSTITUTIONAL : No fever No chills No diaphoresis No recent illness EENT: No vision changes No congestion No sore throat CARDIOVASCULAR: No chest pain No palpitations RESPIRATORY: No shortness of breath No cough No difficulty breathing GASTROINTESTINAL: No abdominal pain No nausea No vomiting No diarrhea GENITOURINARY: No dysuria No hematuria No difficulty urinating MUSCULOSKELETAL: back pain leg pain arm pain SKIN: No rashes No lesions LYMPHATIC: No swollen, enlarged glands. NEUROLOGICAL: No lightheadedness No headache No weakness No paresthesias PSYCHIATRIC: No anxiety No depression PHYSICAL EXAMINATION: Vital signs reviewed, nursing noted reviewed. GENERAL: Well-appearing, well-nourished and in no acute distress. HEAD: Atraumatic, normocephalic. EYES: Eyes appear normal, extraocular movements intact, sclera anicteric, conjunctiva are normal. ENT: nares patent, oropharynx clear without exudates. Moist mucous membranes. NECK: Normal range of motion, supple without lymphadenopathy LUNGS: Breath sounds clear to auscultation bilaterally and equal. No wheezes rales or rhonchi. HEART: Regular rate and rhythm without murmurs ABDOMEN: Soft, nontender, normoactive bowel sounds. No rebound, guarding, or rigidity. No masses appreciated. EXTREMITIES: Diffusely tender with no long bone deformity, good range of motion, no pitting or edema. NEUROLOGICAL: No focal neurological deficits. Moves all extremities spontaneously Motor and sensory grossly intact on exam. PSYCH: Normal mood, normal affect. SKIN: Warm, Dry, normal turgor, no rashes or lesions noted on exposed skin - Related Data Allergies/Adverse Reactions: ceftriaxone sodium [From Rocephin] Allergy (Verified 10/20/18 08:49) Cephalosporins Allergy (Verified 10/20/18 08:49) milk [Milk] Allergy (Verified 10/20/18 08:49) Shellfish * [Shellfish] Allergy (Verified 10/20/18 08:49) wheat [Wheat] Allergy (Verified 10/20/18 08:49) Past Medical History - General Information source: Patient - Social History Smoking Status: Never Smoker Family History: DM, Malignancy - Brother with Hodgkin's lymphoma. Maternal gran dfather with lung cancer., Other - sickle trait in Mother and Father Patient has suicidal ideation: No Patient has homicidal ideation: No - Past Medical History Cardiac Medical History: Reports: Hx Hypertension, Hx Heart Murmur Denies: Hx Coronary Artery Disease, Hx Heart Attack Pulmonary Medical History: Reports: Hx Asthma, Hx Pneumonia - 2016 Denies: Hx Bronchitis, Hx COPD, Hx Tuberculosis Neurological Medical History: Reports: Hx Migraine, Hx Seizures - HX OF. NO MEDICATIONS. Denies: Hx Cerebrovascular Accident Endocrine Medical History: Denies: Hx Diabetes Mellitus Type 2, Hx Hyperthyroidism, Hx Hypothyroidism Renal/ Medical History: Denies: Hx Peritoneal Dialysis GI Medical History: Reports: Hx Gastroesophageal Reflux Disease Musculoskeletal Medical History: Denies Hx Arthritis, Denies Hx Fibromyalgia Skin Medical History: Reports Hx MRSA Psychiatric Medical History: Reports: Hx Depression - 2014 Past Surgical History: Reports: Hx Adenoidectomy, Hx Cholecystectomy, Hx Oral Surgery - growth removed from under tongue, Hx Tonsillectomy, Other - Port placement 2 and removal for infection, multiple PICC lines, central l. Denies: Hx Hysterectomy, Hx Kidney (Renal Surgery), Hx Pacemaker - Immunizations Hx Diphtheria, Pertussis, Tetanus Vaccination: Yes Hx Pneumococcal Vaccination: 07/08/11 Physical Exam - Vital signs Vitals: Temp Pulse Resp BP Pulse Ox 98.4 F 84 18 140/60 H 100 10/28/18 13:44 10/28/18 13:44 10/28/18 13:44 10/28/18 13:44 10/28/18 13:44 Course - Re-evaluation Re-evalutation: 10/28/18 16:47 Vitals reviewed. Nursing notes reviewed. Patient did receive pain medication in triage with no improvement. I had ordered Dilaudid and Benadryl for further pain control. She has also received IV fluids. Her hemoglobin today is 10.7. She does have an elevated reticulocyte count and is not in aplastic crisis. She is not complaining of any chest pain or difficulty breathing to suggest acute chest syndrome. Patient has had multiple visits as an outpatient for pain control and hydration with no improvement. She has now been in the emergency room twice with this exacerbation. She will be admitted to the hospital for further pain control. Case discussed with Dr. Rebolledo who has accepted admission. Patient in agreement with plan of care and stable at time of admission. Laboratory 10/28/18 10/28/18 10/28/18 15:06 15:06 15:06 WBC 7.9 RBC 3.25 L Hgb 10.7 L Hct 30.6 L MCV 94 MCH 32.9 MCHC 34.9 RDW 22.5 H Plt Count 417 Seg Neutrophils % 64.7 Lymphocytes % 25.1 Monocytes % 7.7 Eosinophils % 1.2 Basophils % 1.3 Absolute Neutrophils 5.1 Absolute Lymphocytes 2.0 Absolute Monocytes 0.6 Absolute Eosinophils 0.1 Absolute Basophils 0.1 Platelet Comment ADEQUATE Polychromasia 1+ Poikilocytosis 1+ Basophilic Stippling PRESENT Anisocytosis 3+ Sickle Cells 1+ Target Cells SLIGHT [place] Bodies PRESENT Retic Count (auto) 4.43 H Absolute Retic 0.144 H Sodium 139.4 Potassium 4.3 Chloride 107 Carbon Dioxide 26 Anion Gap 6 BUN 6 L Creatinine 0.45 L Est GFR ( Amer) > 60 Est GFR (Non-Af Amer) > 60 Glucose 68 L Calcium 9.4 Total Bilirubin 1.1 Direct Bilirubin 0.1 Neonat Total Bilirubin Not Reportable Neonat Direct Bilirubin Not Reportable Neonat Indirect Bili Not Reportable AST 35 ALT 25 Alkaline Phosphatase 49 Total Protein 7.3 Albumin 4.3 Urine Color YELLOW Urine Appearance SLIGHTLY-CLOUDY Urine pH 7.0 Ur Specific [place] 1.010 Urine Protein NEGATIVE Urine Glucose (UA) NEGATIVE Urine Ketones NEGATIVE Urine Blood NEGATIVE Urine Nitrite NEGATIVE Urine Bilirubin NEGATIVE Urine Urobilinogen NEGATIVE Ur Leukocyte Esterase TRACE H Urine WBC (Auto) 1 Urine Bacteria (Auto) TRACE Squamous Epi Cells Auto 6 Urine Mucus (Auto) RARE Urine Ascorbic Acid NEGATIVE Urine HCG, Qual NEGATIVE - Vital Signs Vital signs: Temp Pulse Resp BP Pulse Ox 98.4 F 84 18 140/60 H 100 10/28/18 13:44 10/28/18 13:44 10/28/18 13:44 10/28/18 13:44 10/28/18 13:44 - Laboratory Result Diagrams: 10/28/18 15:06 10/28/18 15:06 Laboratory results interpreted by me: 10/28/18 10/28/18 10/28/18 15:06 15:06 15:06 RBC 3.25 L Hgb 10.7 L Hct 30.6 L RDW 22.5 H Retic Count (auto) 4.43 H Absolute Retic 0.144 H BUN 6 L Creatinine 0.45 L Glucose 68 L Ur Leukocyte Esterase TRACE H Discharge - Discharge Clinical Impression: Sickle cell anemia with pain Condition: Stable Disposition: ADMITTED INPATIENT Admitting Provider: Louis (Hospitalist) Unit Admitted: Medical Floor Referrals: LINETTE GALVAN DO [Primary Care Provider] - Follow up as needed
[2018-10-28] MEDS ORDERED: ACETAMINOPHEN 325 MG TABLET PO PRN (17:38)
[2018-10-28] MEDS ORDERED: LEVALBUTEROL HCL NEB 0.63 MG/3 ML AMPUL NEB PRN (17:38)
[2018-10-28] MEDS ORDERED: (PENDING PHARMACY ID) (Butalb/Acetaminophen/Caffeine [Butalb-Acetamin-Caff 50-300-40] 1 CA PO PRN (17:48)
[2018-10-28] MEDS ORDERED: ERGOCALCIFEROL (VITAMIN D2) 50000 UNIT (1.25 MG) CAPSULE PO SCH (18:00)
--- NOTE | 2018-10-28 18:15 | PDOC H&P ---
History of Present Illness Admission Date/PCP: 10/28/18 16:52 LINETTE GALVAN DO Patient complains of: Patient came with complaints of severe back pains for the last several days. History of Present Illness: PRANAV JOINER is a 28 year old female with history of sickle cell anemia, hypertension, migraine headaches, insomnia came to the emergency room with com plaints of increasing pain for the last several days. She came to the emergency room twice for the same problem the pains are continued to gotten worse pain scale is 8 to 10 x 10 not associated with fever not a surgical chest pain is not associated with shortness of breath but she did tell me that she had a few loose stools yesterday. No bowel movement today. Denies any other complaints. Past Medical History Cardiac Medical History: Reports: Hypertension, Heart Murmur Denies: Coronary Artery Disease, Myocardial Infarction Pulmonary Medical History: Reports: Asthma, Pneumonia - 2017 Denies: Bronchitis, Chronic Obstructive Pulmonary Disease (COPD), Tuberculosis Neurological Medical History: Reports: Migraine, Seizures - HX OF. NO MEDICATIONS Endocrine Medical History: Denies: Diabetes Mellitus Type 2, Hyperthyroidism, Hypothyroidism GI Medical History: Reports: Gastroesophageal Reflux Disease Musculoskeltal Medical History: Denies: Arthritis, Fibromyalgia Psychiatric Medical History: Reports: Depression - 2014 Hematology: Reports: Anemia, Sickle Cell Disease Past Surgical History Past Surgical History: Reports: Adenoidectomy, Cholecystectomy, Tonsillectomy, Other - Port placement 2 and removal for infection, multiple PICC lines, central l Denies: Hysterectomy, Pacemaker Social History Smoking Status: Never Smoker Frequency of Alcohol Use: Occasional Hx Recreational Drug Use: - denied Drugs: None Hx Prescription Drug Abuse: No - denies - Advance Directive Resuscitation Status: Full Code Family History Family History: DM, Malignancy - Brother with Hodgkin's lymphoma. Maternal grandfather with lung cancer., Other - sickle trait in Mother and Father Parental Family History Reviewed: Yes - Family history is not significant. Children Family History Reviewed: Yes Sibling(s) Family History Reviewed.: Yes Medication/Allergy Home Medications: Amitriptyline HCl [Elavil 25 mg Tablet] 25 mg PO QAM 04/16/17 Amlodipine Besylate [Norvasc 5 mg Tablet] 5 mg PO DAILY 04/16/17 Cetirizine HCl [Zyrtec 10 mg Tablet] 10 mg PO QHS 04/16/17 Cyclobenzaprine HCl [Flexeril 5 mg Tablet] 5 mg PO Q12HP PRN 04/16/17 Folic Acid [Folvite 1 mg Tablet] 1 mg PO DAILY 04/16/17 Hydroxyurea [Hydrea 500 mg Capsule] 1,500 mg PO SUTUTHSA@1000 04/16/17 Hydroxyurea [Hydrea 500 mg Capsule] 2,000 mg PO MOWEFR@1000 04/16/17 Oxycodone HCl 15 mg PO Q6HP PRN 04/16/17 Promethazine HCl [Phenergan 25 mg Tablet] 25 mg PO Q6HP PRN 04/16/17 Butalb/Acetaminophen/Caffeine [Zzikch-Jjniewju-Izcn 50-300-40] 1 cap PO Q4HP PRN MDD 6 TABS 09/01/17 Amitriptyline HCl [Elavil 50 mg Tablet] 50 mg PO QHS 02/27/18 Fluticasone Propionate [Flonase Nasal [place] 50 Mcg/[place] 16 gm] 2 spray NASL Q12A #1 spray.pump 09/16/18 Ergocalciferol (Vitamin D2) [Drisdol 50,000 Unit (1.25MG) Capsule] 50,000 unit PO .QWEEKLY 10/28/18 Temazepam [Restoril 15 mg Capsule] 15 mg PO HSP PRN 10/28/18 Allergies/Adverse Reactions: ceftriaxone sodium [From Rocephin] Allergy (Verified 10/20/18 08:49) Cephalosporins Allergy (Verified 10/20/18 08:49) milk [Milk] Allergy (Verified 10/20/18 08:49) Shellfish * [Shellfish] Allergy (Verified 10/20/18 08:49) wheat [Wheat] Allergy (Verified 10/20/18 08:49) Review of Systems Constitutional: PRESENT: fatigue, weakness. ABSENT: fever(s), headache(s) Eyes: ABSENT: visual disturbances Ears: ABSENT: hearing changes Nose, Mouth, and Throat: ABSENT: sore throat Cardiovascular: ABSENT: chest pain, dyspnea on exertion, edema, orthropnea, palpitations Respiratory: ABSENT: cough, dyspnea, hemoptysis Gastrointestinal: PRESENT: diarrhea Musculoskeletal: PRESENT: back pain, other - Your body aches and muscle aches all over the body especially at the back. Neurological: ABSENT: abnormal gait, abnormal speech, confusion, dizziness, focal weakness, syncope Psychiatric: ABSENT: anxiety, depression, homidical ideation, suicidal ideation Physical Exam Vital Signs: Temp Pulse Resp BP Pulse Ox 98.4 F 84 18 140/60 H 100 10/28/18 13:44 10/28/18 13:44 10/28/18 13:44 10/28/18 13:44 10/28/18 13:44 Intake & Output 10/27/18 10/28/18 10/29/18 06:59 06:59 06:59 Intake Total 1000 Balance 1000 Weight 64.9 kg General appearance: PRESENT: other - pt is in mild to moderate distress. Head exam: PRESENT: atraumatic Eye exam: PRESENT: PERRLA Mouth exam: PRESENT: moist, tongue midline Teeth exam: PRESENT: poor dentation Neck exam: ABSENT: carotid bruit, JVD, lymphadenopathy, thyromegaly Respiratory exam: PRESENT: clear to auscultation william. ABSENT: rales, rhonchi, wheezes Cardiovascular exam: PRESENT: RRR. ABSENT: diastolic murmur, rubs, systolic murmur GI/Abdominal exam: PRESENT: normal bowel sounds, soft. ABSENT: distended, guarding, mass, organolmegaly, rebound, tenderness Rectal exam: PRESENT: deferred Extremities exam: PRESENT: full ROM. ABSENT: calf tenderness, clubbing, pedal edema Neurological exam: PRESENT: alert, awake, oriented to person, oriented to place, oriented to time, oriented to situation, CN II-XII grossly intact. ABSENT: motor sensory deficit Psychiatric exam: PRESENT: appropriate affect, normal mood. ABSENT: homicidal ideation, suicidal ideation Results Laboratory Results: 10/28/18 15:06 10/28/18 15:06 10/28/18 10/28/18 10/28/18 15:06 15:06 15:06 WBC 7.9 RBC 3.25 L Hgb 10.7 L Hct 30.6 L MCV 94 MCH 32.9 MCHC 34.9 RDW 22.5 H Plt Count 417 Seg Neutrophils % 64.7 Lymphocytes % 25.1 Monocytes % 7.7 Eosinophils % 1.2 Basophils % 1.3 Absolute Neutrophils 5.1 Absolute Lymphocytes 2.0 Absolute Monocytes 0.6 Absolute Eosinophils 0.1 Absolute Basophils 0.1 Retic Count (auto) 4.43 H Absolute Retic 0.144 H Sodium 139.4 Potassium 4.3 Chloride 107 Carbon Dioxide 26 Anion Gap 6 BUN 6 L Creatinine 0.45 L Est GFR ( Amer) > 60 Est GFR (Non-Af Amer) > 60 Glucose 68 L Calcium 9.4 Total Bilirubin 1.1 AST 35 ALT 25 Alkaline Phosphatase 49 Total Protein 7.3 Albumin 4.3 Urine Color YELLOW Urine Appearance SLIGHTLY-CLOUDY Urine pH 7.0 Ur Specific [place] 1.010 Urine Protein NEGATIVE Urine Glucose (UA) NEGATIVE Urine Ketones NEGATIVE Urine Blood NEGATIVE Urine Nitrite NEGATIVE Ur Leukocyte Esterase TRACE H Urine WBC (Auto) 1 Assessment and Plan - Diagnosis (1) Sickle cell anemia with pain Is this a current diagnosis for this admission?: Yes Plan: 10[birth year]28/[id number]-old female with history of sickle cell anemia came in with severe pain and we are admitting for possible sickle cell crisis. Patient is going to be in the medical floor. Inpatient. Started on IV fluids normal saline 125 cc/h, IV Dilaudid 1 mg every 4 as needed. GI prophylaxis DVT prophylaxis initiated. Plans to restart home medications. Consultation with Dr. kent was requested. Patient is on hydroxyurea at home which is going to be resumed during the hospital stay. 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 Hemoglobin is around 10.7. As per the patient if the hemoglobin drops to less than 8 she requires blood transfusion. reticulocyte count today is 4.43. (3) Constipation Qualifiers: Constipation type: drug induced constipation Qualified Code(s): K59.03 - Drug induced constipation Is this a current diagnosis for this admission?: No Plan: 10/28/2018-patient given history of chronic constipation most likely secondary to opioid use. But she is given history of 3-4 loose stools yesterday. Denies any nausea and vomitings. (4) Migraine headache Is this a current diagnosis for this admission?: No Plan: 10/28/2018-patient given the history of migraine headaches. She is on Fioricet a t home. Plan is to resume the medication during the hospital stay. (5) Hypertension Qualifiers: Hypertension type: essential hypertension Qualified Code(s): I10 - Essential (primary) hypertension Is this a current diagnosis for this admission?: No Plan: 10/28/2017-patient is given history of chronic essential hypertension taking amlodipine 5 mg p.o. daily at home blood pressure here in the emergency room is 140/60. Plan is to resume the medication during the hospital stay. (6) Major depression Qualifiers: Major depression recurrence: recurrent Major depression episode severity: moderate Is this a current diagnosis for this admission?: No Plan: 10/28/2018-patient is given history of depression denies any depression symptoms during the examination. Plan is to resume amitriptyline during this hospital stay. - Time Time Spent with patient: 15-24 minutes Medications reviewed and adjusted accordingly: Yes Anticipated discharge: Home
--- NOTE | 2018-10-28 18:45 | RADIOLOGY REPORT (SQ) ---
EXAM DESCRIPTION: CHEST 2 VIEWS COMPLETED DATE/TIME: 10/28/2018 6:13 pm REASON FOR STUDY: shortness of breath COMPARISON: Two-view chest 10/20/2018, 09/02/2018 EXAM PARAMETERS: NUMBER OF VIEWS: two views TECHNIQUE: Digital Frontal and Lateral radiographic views of the chest acquired. RADIATION DOSE: NA LIMITATIONS: none FINDINGS: LUNGS AND PLEURA: No opacities, masses or pneumothorax. No pleural effusion. MEDIASTINUM AND HILAR STRUCTURES: No masses or contour abnormalities. HEART AND VASCULAR STRUCTURES: Heart normal size. No evidence for failure. BONES: No acute findings. HARDWARE: None in the chest. OTHER: No other significant finding. IMPRESSION: NO ACUTE RADIOGRAPHIC FINDING IN THE CHEST. TECHNICAL DOCUMENTATION: JOB ID: [id number] [employer]- All Rights Reserved Reading location - IP/workstation name: [email or web address]
[2018-10-28] MEDS ORDERED: CYCLOBENZAPRINE HCL 10 MG TABLET PO PRN (19:15)
[2018-10-28] MEDS ORDERED: (PENDING PHARMACY ID) (Butalb/Acetaminophen/Caffeine [Butalb-Acetamin-Caff 50-325-40] 1 EA PO PRN (19:48)
[2018-10-28] MEDS: OXYCODONE HCL IR 5 MG TABLET PO PRN (20:04)
[2018-10-28] MEDS: NORMAL SALINE 1000 ML 1,000 ML IV PRN (20:07)
[2018-10-28] MEDS: FLUTICASONE NASAL SPRAY 50 MCG/SPRY 120 SPRAY/16 GM NASL SCH (21:03)
[2018-10-28] MEDS: PROMETHAZINE HCL 25 MG TABLET PO PRN (21:04)
[2018-10-28] MEDS: FAMOTIDINE 20 MG TABLET PO SCH (21:04)
[2018-10-28] MEDS: HYDROMORPHONE HCL INJ/PF 2 MG/ML AMPULE IV PRN (21:05)
[2018-10-28] MEDS: BUTALB/ACETAMINOPHEN/CAFFEINE 1 TAB EACH PO PRN (21:12)
[2018-10-28] MEDS: AMLODIPINE BESYLATE 5 MG TABLET PO SCH (21:57)
[2018-10-28] MEDS: ENOXAPARIN SODIUM INJ 40 MG/0.4 ML DISP.SYRIN SUBCUT SCH (21:57)
[2018-10-28] MEDS: CETIRIZINE 10 MG TABLET PO SCH (23:59)
[2018-10-28] MEDS: AMITRIPTYLINE HCL 50 MG TABLET PO SCH (23:59)
[2018-10-29] MEDS: HYDROMORPHONE HCL INJ/PF 2 MG/ML AMPULE IV PRN ×9 (01:04→23:34)
[2018-10-29] MEDS ORDERED: OXYCODONE HCL IR 5 MG TABLET ONE (04:59)
[2018-10-29] MEDS: OXYCODONE HCL IR 5 MG TABLET PO PRN (05:02)
[2018-10-29] MEDS: NORMAL SALINE 1000 ML 1,000 ML IV PRN ×3 (05:04→23:34)
[2018-10-29 07:02] LABS: HEMATOCRIT 25.1 % (36.0-47.0); MEAN CORPUSCULAR HEMOGLOBIN 33.2 pg (27.0-33.4); MEAN CORPUSCULAR HGB CONC 35.7 g/dL (32.0-36.0); MEAN CORPUSCULAR VOLUME 93 fl (80-97); PLATELET COUNT 310 10^3/uL (150-450); RED BLOOD COUNT 2.69 10^6/uL (3.72-5.28); WHITE BLOOD COUNT 7.4 10^3/uL (4.0-10.5)
[2018-10-29 07:22] LABS: ALANINE AMINOTRANSFERASE 25 U/L (9-52); ALBUMIN 3.5 g/dL (3.5-5.0); ALKALINE PHOSPHATASE 46 U/L (38-126); ASPARTATE AMINO TRANSFERASE 25 U/L (14-36); BILIRUBIN,DIRECT 0.2 mg/dL (0.0-0.4); BILIRUBIN,TOTAL 1.4 mg/dL (0.2-1.3); BLOOD UREA NITROGEN 6 mg/dL (7-20); CALCIUM 8.6 mg/dL (8.4-10.2); CHLORIDE 110 mmol/L (98-107); GLUCOSE 82 mg/dL (75-110); POTASSIUM 4.2 mmol/L (3.6-5.0)
[2018-10-29 07:36] LABS: CARBON DIOXIDE 25 mmol/L (22-30); SODIUM 139.3 mmol/L (137-145)
[2018-10-29 07:40] LABS: ANION GAP 4 (5-19)
[2018-10-29] MEDS ORDERED: POLYETHYLENE GLYCOL 3350 POWDER 17 GM/1 PACKET PO PRN ×2 (09:16→09:30)
--- NOTE | 2018-10-29 09:20 | PDOC CONSULTATION ---
Consultation Consult Date: 10/29/18 Attending physician:: ODILIA WRIGHT Consult reason:: Sickle cell crisis History of Present Illness Admission Date/PCP: 10/28/18 16:52 LINETTE GALVAN DO Patient complains of: Sickle cell pain crisis History of Present Illness: PRANAV JOINER is a 28 year old female with known history of severe sickle cell disease, here with pain crisis, having pain in most of the usual areas, tearful in the room today. Oral pain medication was not controlling pain appropriately, patient has been admitted for IV pain control. Today I adjusted her IV pain medications and added other supportive meds. I also added order for PICC line because patient will lose her IV in the next 24-48 hours, and she tends to be a very hard stick thereafter. Past Medical History Cardiac Medical History: Reports: Hypertension, Heart Murmur Denies: Coronary Artery Disease, Myocardial Infarction Pulmonary Medical History: Reports: Asthma, Pneumonia - 2017 Denies: Bronchitis, Chronic Obstructive Pulmonary Disease (COPD), Tuberculosis Neurological Medical History: Reports: Migraine, Seizures - HX OF. NO MEDICATIONS Endocrine Medical History: Denies: Diabetes Mellitus Type 2, Hyperthyroidism, Hypothyroidism GI Medical History: Reports: Gastroesophageal Reflux Disease Musculoskeltal Medical History: Denies: Arthritis, Fibromyalgia Psychiatric Medical History: Reports: Depression Hematology: Reports: Anemia, Sickle Cell Disease Past Surgical History Past Surgical History: Reports: Adenoidectomy, Cholecystectomy, Tonsillectomy, Other - Port placement 2 and removal for infection, multiple PICC lines, central l Denies: Hysterectomy, Pacemaker Social History Smoking Status: Never Smoker Frequency of Alcohol Use: None Hx Recreational Drug Use: No Drugs: None Hx Prescription Drug Abuse: No - Advance Directive Resuscitation Status: Full Code Family History Family History: DM, Malignancy - Brother with Hodgkin's lymphoma. Maternal grandfather with lung cancer., Other - sickle trait in Mother and Father Parental Family History Reviewed: Yes Children Family History Reviewed: Yes Sibling(s) Family History Reviewed.: Yes Medication/Allergy Home Medications: Amitriptyline HCl [Elavil 25 mg Tablet] 25 mg PO QAM 04/16/17 Amlodipine Besylate [Norvasc 5 mg Tablet] 5 mg PO DAILY 04/16/17 Cetirizine HCl [Zyrtec 10 mg Tablet] 10 mg PO QHS 04/16/17 Cyclobenzaprine HCl [Flexeril 5 mg Tablet] 5 mg PO Q12HP PRN 04/16/17 Folic Acid [Folvite 1 mg Tablet] 1 mg PO DAILY 04/16/17 Hydroxyurea [Hydrea 500 mg Capsule] 1,500 mg PO SUTUTHSA@1000 04/16/17 Hydroxyurea [Hydrea 500 mg Capsule] 2,000 mg PO MOWEFR@1000 04/16/17 Oxycodone HCl 15 mg PO Q6HP PRN 04/16/17 Promethazine HCl [Phenergan 25 mg Tablet] 25 mg PO Q6HP PRN 04/16/17 Amitriptyline HCl [Elavil 50 mg Tablet] 50 mg PO QHS 02/27/18 Fluticasone Propionate [Flonase Nasal [place] 50 Mcg/[place] 16 gm] 2 spray NASL Q12A #1 spray.pump 09/16/18 Butalb/Acetaminophen/Caffeine [Dxyrxe-Qjsqnlgs-Bxho 50-325-40] 1 each PO Q4HP PRN 10/28/18 Temazepam [Restoril 15 mg Capsule] 15 mg PO HSP PRN 10/28/18 Allergies/Adverse Reactions: ceftriaxone sodium [From Rocephin] Allergy (Verified 10/20/18 08:49) Cephalosporins Allergy (Verified 10/20/18 08:49) milk [Milk] Allergy (Verified 10/20/18 08:49) Shellfish * [Shellfish] Allergy (Verified 10/20/18 08:49) wheat [Wheat] Allergy (Verified 10/20/18 08:49) Review of Systems Constitutional: ABSENT: chills, fever(s), headache(s), weight gain, weight loss Eyes: ABSENT: visual disturbances Ears: ABSENT: hearing changes Cardiovascular: ABSENT: chest pain, dyspnea on exertion, edema, orthropnea, p alpitations Respiratory: ABSENT: cough, hemoptysis Gastrointestinal: ABSENT: abdominal pain, constipation, diarrhea, hematemesis, hematochezia, nausea, vomiting Genitourinary: ABSENT: dysuria, hematuria Musculoskeletal: ABSENT: joint swelling Integumentary: ABSENT: rash, wounds Neurological: ABSENT: abnormal gait, abnormal speech, confusion, dizziness, focal weakness, syncope Psychiatric: ABSENT: anxiety, depression, homidical ideation, suicidal ideation Endocrine: ABSENT: cold intolerance, heat intolerance, polydipsia, polyuria Hematologic/Lymphatic: ABSENT: easy bleeding, easy bruising Physical Exam Vital Signs: Temp Pulse Resp BP Pulse Ox 97.9 F 73 18 116/62 100 10/29/18 08:15 10/29/18 08:15 10/29/18 08:15 10/29/18 08:15 10/29/18 08:15 Intake & Output 10/28/18 10/29/18 10/30/18 06:59 06:59 06:59 Intake Total 3100 Balance 3100 Weight 64.8 kg General appearance: PRESENT: no acute distress, well-developed, well-nourished Head exam: PRESENT: atraumatic, normocephalic Eye exam: PRESENT: conjunctiva pink, EOMI, PERRLA. ABSENT: scleral icterus Ear exam: PRESENT: normal external ear exam Mouth exam: PRESENT: moist, tongue midline Neck exam: ABSENT: carotid bruit, JVD, lymphadenopathy, thyromegaly Respiratory exam: PRESENT: clear to auscultation william. ABSENT: rales, rhonchi, wheezes Cardiovascular exam: PRESENT: RRR. ABSENT: diastolic murmur, rubs, systolic murmur Pulses: PRESENT: normal dorsalis pedis pul Vascular exam: PRESENT: normal capillary refill GI/Abdominal exam: PRESENT: normal bowel sounds, soft. ABSENT: distended, guarding, mass, organolmegaly, rebound, tenderness Rectal exam: PRESENT: deferred Extremities exam: PRESENT: full ROM. ABSENT: calf tenderness, clubbing, pedal edema Neurological exam: PRESENT: alert, awake, oriented to person, oriented to place, oriented to time, oriented to situation, CN II-XII grossly intact. ABSENT: motor sensory deficit Psychiatric exam: PRESENT: appropriate affect, normal mood. ABSENT: homicidal ideation, suicidal ideation Skin exam: PRESENT: dry, intact, warm. ABSENT: cyanosis, rash Results Laboratory Results: 10/29/18 06:10 10/29/18 06:10 10/28/18 10/28/18 10/28/18 15:06 15:06 15:06 WBC 7.9 RBC 3.25 L Hgb 10.7 L Hct 30.6 L MCV 94 MCH 32.9 MCHC 34.9 RDW 22.5 H Plt Count 417 Seg Neutrophils % 64.7 Lymphocytes % 25.1 Monocytes % 7.7 Eosinophils % 1.2 Basophils % 1.3 Absolute Neutrophils 5.1 Absolute Lymphocytes 2.0 Absolute Monocytes 0.6 Absolute Eosinophils 0.1 Absolute Basophils 0.1 Retic Count (auto) 4.43 H Absolute Retic 0.144 H Sodium 139.4 Potassium 4.3 Chloride 107 Carbon Dioxide 26 Anion Gap 6 BUN 6 L Creatinine 0.45 L Est GFR ( Amer) > 60 Est GFR (Non-Af Amer) > 60 Glucose 68 L Calcium 9.4 Total Bilirubin 1.1 AST 35 ALT 25 Alkaline Phosphatase 49 Total Protein 7.3 Albumin 4.3 Urine Color YELLOW Urine Appearance SLIGHTLY-CLOUDY Urine pH 7.0 Ur Specific [place] 1.010 Urine Protein NEGATIVE Urine Glucose (UA) NEGATIVE Urine Ketones NEGATIVE Urine Blood NEGATIVE Urine Nitrite NEGATIVE Ur Leukocyte Esterase TRACE H Urine WBC (Auto) 1 10/29/18 10/29/18 06:10 06:10 WBC 7.4 RBC 2.69 L Hgb 9.0 L Hct 25.1 L MCV 93 MCH 33.2 MCHC 35.7 RDW 22.0 H Plt Count 310 Seg Neutrophils % Lymphocytes % Monocytes % Eosinophils % Basophils % Absolute Neutrophils Absolute Lymphocytes Absolute Monocytes Absolute Eosinophils Absolute Basophils Retic Count (auto) Absolute Retic Sodium 139.3 Potassium 4.2 Chloride 110 H Carbon Dioxide 25 Anion Gap 4 L BUN 6 L Creatinine 0.52 Est GFR ( Amer) > 60 Est GFR (Non-Af Amer) > 60 Glucose 82 Calcium 8.6 Total Bilirubin 1.4 H AST 25 ALT 25 Alkaline Phosphatase 46 Total Protein 6.0 L Albumin 3.5 Urine Color Urine Appearance Urine pH Ur Specific [place] Urine Protein Urine Glucose (UA) Urine Ketones Urine Blood Urine Nitrite Ur Leukocyte Esterase Urine WBC (Auto) Impressions: Chest X-Ray 10/28/18 17:46 IMPRESSION: NO ACUTE RADIOGRAPHIC FINDING IN THE CHEST. Assessment & Plan - Diagnosis (1) Sickle cell anemia with pain Is this a current diagnosis for this admission?: Yes Plan: Sickle cell pain crisis, increase Dilaudid to 2 mg IV every 2 hours, I will do with her pain medication. DC oxycodone. Add Benadryl for itching, K pad for comfort, bowel regimen added. PICC line plan today. 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 - Time Time Spent: Greater than 70 Minutes Disposition: Generally requires 3-5 days admission for most pain crises. - Inpatient Certification Based on my medical assessment, after consideration of the patient's comorbidities, presenting symptoms, or acuity I expect that the services needed warrant INPATIENT care.: Yes I certify that my determination is in accordance with my understanding of Medicare's requirements for reasonable and necessary INPATIENT services [42 CFR 412.3e].: Yes Medical Necessity: Need For IV Fluids, Need for Pain Control
[2018-10-29] MEDS ORDERED: SENNOSIDES/DOCUSATE 8.6-50 MG 1 EACH TABLET PO PRN (09:29)
[2018-10-29] MEDS: ENOXAPARIN SODIUM INJ 40 MG/0.4 ML DISP.SYRIN SUBCUT SCH (09:29)
[2018-10-29] MEDS: FAMOTIDINE 20 MG TABLET PO SCH ×2 (09:30→21:26)
[2018-10-29] MEDS: DIPHENHYDRAMINE HCL 25 MG CAPSULE PO PRN ×2 (09:30→16:45)
[2018-10-29] MEDS: AMLODIPINE BESYLATE 5 MG TABLET PO SCH (09:31)
[2018-10-29] MEDS: FOLIC ACID 1 MG TABLET PO SCH (09:31)
[2018-10-29] MEDS: FLUTICASONE NASAL SPRAY 50 MCG/SPRY 120 SPRAY/16 GM NASL SCH ×2 (09:31→21:26)
[2018-10-29] MEDS: AMITRIPTYLINE HCL 25 MG TABLET PO SCH (09:31)
[2018-10-29] MEDS: HYDROXYUREA 500 MG CAPSULE PO SCH (09:33)
--- NOTE | 2018-10-29 13:44 | RADIOLOGY REPORT (SQ) ---
EXAM DESCRIPTION: PICC INSERTION; U/S GUIDE FOR VASCULAR ACCESS; FLUORO/CV PLACEMENT COMPLETED DATE/TIME: 10/29/2018 12:26 pm REASON FOR STUDY: Iv meds; IV ACCESS COMPARISON: Two-view chest 10/28/2018 FLUOROSCOPY TIME: 1.3 minutes 1 digital fluoroscopic chest image and 1 ultrasound images saved to PACS. TECHNIQUE: Fluoroscopic and ultrasound guided PICC placement. LIMITATIONS: None. PROCEDURE: After written consent and assessment were obtained, the patient was brought into the fluo roscopy room and placed supine on the table. Ultrasound evaluation of potential access sites were per formed. After successfully identifying a patent right basilic vein, the right arm was prepped and joana ped in a sterile fashion along with the ultrasound probe. The entry site was anesthetized with 1% lid ocaine. A 21 gauge 7 cm needle was advanced through the skin and into the basilic vein under live ult rasound guidance. An ultrasound image was saved to PACS confirming access site. A .018 guide wire w as then inserted through the needle and into the venous system. We were unable to pass the wire beyo nd the right axilla. Further attempts at placement of a right-sided PICC catheter was abandoned. After successfully identifying a patent left basilic vein, the left arm was prepped and draped in a s terile fashion along with the ultrasound probe. The entry site was anesthetized with 1% lidocaine. A 21 gauge 7 cm needle was advanced through the skin and into the basilic vein under live ultrasound gu idance. An ultrasound image was saved to PACS confirming access site. A .018 guide wire was then in serted through the needle and into the venous system. The needle was then removed and an 11 blade scalpel was used to make a 1cm skin incision. A 5 fr pee l-away sheath was advanced over the wire and into the venous system. A measurement was then made usin g the existing wire and live fluoroscopic guidance. The wire was then removed and trimmed. The PICC w as advanced through the peel-away sheath and into the venous system. The peel-away sheath was removed and the catheter was adhered to the patients arm with a stat lock. The catheter was then aspirated a nd flushed and a sterile bandage was placed over the access site. A fluoroscopic spot image was save d to PACS confirming the catheter tip within the superior vena cava. IMPRESSION: SUCCESSFUL PLACEMENT OF A 5 FR DUAL LUMEN 41 CM PICC IN THE LEFT BASILIC VEIN. ATTEMPT AT RIGHT ARM PICC PLACEMENT WAS UNSUCCESSFUL. VENOUS STRUCTURES ARE SMALL IN THE RIGHT UPPER ARM. COMMENT: Patient medication list reviewed: Yes- Quality ID# [id number]:Eligible professional attests to doc umenting in the medical record they obtained, updated, or reviewed the patient's current medications. . Quality ID 145: Final reports for procedures using fluoroscopy that document radiation exposure rebecca angy, or exposure time and number of fluorographic images (if radiation exposure indices are not avail able) Quality ID #76: The patient was prepped and draped using maximum sterile barrier technique including cap, mask, sterile gown, sterile gloves, a large sterile sheet, hand hygiene, and 2% Chlorhexidine fo r cutaneous antisepsis. When ultrasound is used, sterile ultrasound techniques are followed requiring sterile gel and sterile probes. TECHNICAL DOCUMENTATION: JOB ID: [id number]- All Rights Reserved rev-11/22 Reading location - IP/workstation name: [email or web address]
[2018-10-29] MEDS: BUTALB/ACETAMINOPHEN/CAFFEINE 1 TAB EACH PO PRN (14:51)
--- NOTE | 2018-10-29 16:43 | PDOC PROGRESS REPORT ---
Subjective Progress Note for:: 10/29/18 Subjective:: The patient was seen on afternoon rounds. She was found resting in bed on room air. She was clear discomfort upon entering the room; curled into the position and rocking back and forth. She reports that she has recently asked nursing to contact hematology for additional pain medication orders. She also asks that I follow-up on her supplemental oxygen and heating pad. Otherwise, she denies fever, chills, chest pain, palpitations, dyspnea, abdominal pain, nausea vomiting and diarrhea. She does report that her sickle cell pain has expanded to include lower back and bilateral lower extremities. She has no other questions or concerns. No concerns per nursing. Reason For Visit: SICKLE CELL CRISIS Physical Exam Vital Signs: Temp Pulse Resp BP Pulse Ox 98.0 F 72 15 116/51 L 100 10/29/18 14:40 10/29/18 14:40 10/29/18 14:40 10/29/18 14:40 10/29/18 14:40 Intake & Output 10/28/18 10/29/18 10/30/18 06:59 06:59 06:59 Intake Total 3100 2300 Balance 3100 2300 Weight 64.8 kg General appearance: PRESENT: no acute distress, well-developed, well-nourished Head exam: PRESENT: atraumatic, normocephalic Eye exam: PRESENT: conjunctiva pink, EOMI, PERRLA. ABSENT: scleral icterus Ear exam: PRESENT: normal external ear exam Mouth exam: PRESENT: moist, tongue midline Neck exam: ABSENT: carotid bruit, JVD, lymphadenopathy, thyromegaly Respiratory exam: PRESENT: clear to auscultation william. ABSENT: rales, rhonchi, wheezes Cardiovascular exam: PRESENT: RRR. ABSENT: diastolic murmur, rubs, systolic murmur Pulses: PRESENT: normal dorsalis pedis pul Vascular exam: PRESENT: normal capillary refill GI/Abdominal exam: PRESENT: normal bowel sounds, soft. ABSENT: distended, guarding, mass, organolmegaly, rebound, tenderness Rectal exam: PRESENT: deferred Extremities exam: PRESENT: full ROM. ABSENT: calf tenderness, clubbing, pedal edema Neurological exam: PRESENT: alert, awake, oriented to person, oriented to place, oriented to time, oriented to situation, CN II-XII grossly intact. ABSENT: motor sensory deficit Psychiatric exam: PRESENT: appropriate affect, normal mood. ABSENT: homicidal ideation, suicidal ideation Skin exam: PRESENT: dry, intact, warm. ABSENT: cyanosis, rash Results Laboratory Results: 10/29/18 06:10 10/29/18 06:10 10/29/18 10/29/18 06:10 06:10 WBC 7.4 RBC 2.69 L Hgb 9.0 L Hct 25.1 L MCV 93 MCH 33.2 MCHC 35.7 RDW 22.0 H Plt Count 310 Sodium 139.3 Potassium 4.2 Chloride 110 H Carbon Dioxide 25 Anion Gap 4 L BUN 6 L Creatinine 0.52 Est GFR ( Amer) > 60 Est GFR (Non-Af Amer) > 60 Glucose 82 Calcium 8.6 Total Bilirubin 1.4 H AST 25 ALT 25 Alkaline Phosphatase 46 Total Protein 6.0 L Albumin 3.5 Impressions: Chest X-Ray 10/28/18 17:46 IMPRESSION: NO ACUTE RADIOGRAPHIC FINDING IN THE CHEST. Guidance Fluoroscopy 10/29/18 00:00 IMPRESSION: SUCCESSFUL PLACEMENT OF A 5 FR DUAL LUMEN 41 CM PICC IN THE LEFT BASILIC VEIN. ATTEMPT AT RIGHT ARM PICC PLACEMENT WAS UNSUCCESSFUL. VENOUS STRUCTURES ARE SMALL IN THE RIGHT UPPER ARM. Interventional Vascular Procedure 10/29/18 00:00 IMPRESSION: SUCCESSFUL PLACEMENT OF A 5 FR DUAL LUMEN 41 CM PICC IN THE LEFT BASILIC VEIN. ATTEMPT AT RIGHT ARM PICC PLACEMENT WAS UNSUCCESSFUL. VENOUS STRUCTURES ARE SMALL IN THE RIGHT UPPER ARM. PICC Line Insertion 10/29/18 00:00 IMPRESSION: SUCCESSFUL PLACEMENT OF A 5 FR DUAL LUMEN 41 CM PICC IN THE LEFT BA SILIC VEIN. ATTEMPT AT RIGHT ARM PICC PLACEMENT WAS UNSUCCESSFUL. VENOUS STRUCTURES ARE SMALL IN THE RIGHT UPPER ARM. Assessment and Plan - Diagnosis (1) Sickle cell anemia with pain Is this a current diagnosis for this admission?: Yes Plan: History of sickle cell anemia came in with severe pain. Hgb 10.7 on admission; decreased to 9.0 today Retic count elevated to 4.43 on admission. She is admitted to the medical floor. Providing generous IV fluids. Oxygen as needed for comfort; maintain oxygen saturations greater than 92%. Hematology is consulted; pain management per their expertise. Continue home dose hydroxyurea. Benadryl and Phenergan as needed. Monitor daily CBC; transfuse for hemoglobin less than 8. 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 It appears that her baseline is in the mid-9.0s. Hematology is consulted; recommends transfusing for hemoglobin less than 8. Continue multivitamin and folic acid supplementation. (3) Constipation Qualifiers: Constipation type: drug induced constipation Qualified Code(s): K59.03 - Drug induced constipation Is this a current diagnosis for this admission?: Yes Plan: History of chronic constipation most likely secondary to opioid use. Senokot and MiraLAX as needed. (4) Hypertension Qualifiers: Hypertension type: essential hypertension Qualified Code(s): I10 - Essential (primary) hypertension Is this a current diagnosis for this admission?: Yes Plan: Patient reports history of hypertension; normotensive today. Continue home dose amlodipine. Cardiac diet. (5) Major depression Qualifiers: Major depression recurrence: recurrent Major depression episode severity: moderate Is this a current diagnosis for this admission?: No Plan: History of depression. Continue home dose amitriptyline. (6) Migraine headache Is this a current diagnosis for this admission?: No Plan: History of migraine headaches. Home dose Fioricet will be available while admitted. - Time Time Spent with patient: 15-24 minutes Medications reviewed and adjusted accordingly: Yes Anticipated discharge: Home
[2018-10-29] MEDS: CETIRIZINE 10 MG TABLET PO SCH (21:26)
[2018-10-29] MEDS: PROMETHAZINE HCL 25 MG TABLET PO PRN (21:26)
[2018-10-29] MEDS: AMITRIPTYLINE HCL 50 MG TABLET PO SCH (22:15)
[2018-10-29] MEDS: TEMAZEPAM 15 MG CAPSULE PO PRN ×2 (22:15)
[2018-10-30] MEDS: BUTALB/ACETAMINOPHEN/CAFFEINE 1 TAB EACH PO PRN ×2 (00:19→15:44)
[2018-10-30] MEDS: HYDROMORPHONE HCL INJ/PF 2 MG/ML AMPULE IV PRN ×8 (01:57→22:02)
[2018-10-30 06:33] LABS: HEMATOCRIT 25.8 % (36.0-47.0); HEMOGLOBIN 9.2 g/dL (12.0-15.5); MEAN CORPUSCULAR HEMOGLOBIN 33.2 pg (27.0-33.4); MEAN CORPUSCULAR HGB CONC 35.7 g/dL (32.0-36.0); MEAN CORPUSCULAR VOLUME 93 fl (80-97); PLATELET COUNT 323 10^3/uL (150-450); RED BLOOD COUNT 2.78 10^6/uL (3.72-5.28); RED CELL DISTRIBUTION WIDTH 21.7 % (11.5-14.0); WHITE BLOOD COUNT 10.9 10^3/uL (4.0-10.5)
[2018-10-30 07:18] LABS: ALANINE AMINOTRANSFERASE 28 U/L (9-52); ALKALINE PHOSPHATASE 52 U/L (38-126); ANION GAP 6 (5-19); ASPARTATE AMINO TRANSFERASE 35 U/L (14-36); BILIRUBIN,DIRECT 0.4 mg/dL (0.0-0.4); BILIRUBIN,TOTAL 1.5 mg/dL (0.2-1.3); BLOOD UREA NITROGEN 5 mg/dL (7-20); CALCIUM 9.1 mg/dL (8.4-10.2); CARBON DIOXIDE 25 mmol/L (22-30); CHLORIDE 108 mmol/L (98-107); GLUCOSE 95 mg/dL (75-110); POTASSIUM 4.2 mmol/L (3.6-5.0); SODIUM 138.6 mmol/L (137-145); TOTAL PROTEIN 6.7 g/dL (6.3-8.2)
--- NOTE | 2018-10-30 08:29 | PDOC PROGRESS REPORT ---
Subjective Progress Note for:: 10/30/18 Subjective:: Patient sleeping peacefully. Does not arouse to soft voice or light touch. Nurses report that she was still in significant pain last night. Continues pain meds q 2 hours. Reason For Visit: SICKLE CELL CRISIS Physical Exam Vital Signs: Temp Pulse Resp BP Pulse Ox 98.0 F 98 18 154/76 H 100 10/30/18 07:50 10/30/18 07:50 10/30/18 07:50 10/30/18 07:50 10/30/18 07:50 Intake & Output 10/29/18 10/30/18 10/31/18 06:59 06:59 06:59 Intake Total 3100 5250 Balance 3100 5250 Weight 64.8 kg 66 kg General appearance: PRESENT: no acute distress, well-developed, well-nourished Head exam: PRESENT: normocephalic Respiratory exam: PRESENT: clear to auscultation william, unlabored Cardiovascular exam: PRESENT: RRR. ABSENT: systolic murmur Extremities exam: PRESENT: other - SCDs in place. ABSENT: pedal edema Skin exam: PRESENT: normal color Results Laboratory Results: 10/30/18 05:10 10/30/18 05:10 10/30/18 10/30/18 05:10 05:10 WBC 10.9 H RBC 2.78 L Hgb 9.2 L Hct 25.8 L MCV 93 MCH 33.2 MCHC 35.7 RDW 21.7 H Plt Count 323 Sodium 138.6 Potassium 4.2 Chloride 108 H Carbon Dioxide 25 Anion Gap 6 BUN 5 L Creatinine 0.45 L Est GFR ( Amer) > 60 Est GFR (Non-Af Amer) > 60 Glucose 95 Calcium 9.1 Total Bilirubin 1.5 H AST 35 ALT 28 Alkaline Phosphatase 52 Total Protein 6.7 Albumin 4.0 Impressions: Chest X-Ray 10/28/18 17:46 IMPRESSION: NO ACUTE RADIOGRAPHIC FINDING IN THE CHEST. Guidance Fluoroscopy 10/29/18 00:00 IMPRESSION: SUCCESSFUL PLACEMENT OF A 5 FR DUAL LUMEN 41 CM PICC IN THE LEFT BASILIC VEIN. ATTEMPT AT RIGHT ARM PICC PLACEMENT WAS UNSUCCESSFUL. VENOUS STRUCTURES ARE SMALL IN THE RIGHT UPPER ARM. Interventional Vascular Procedure 10/29/18 00:00 IMPRESSION: SUCCESSFUL PLACEMENT OF A 5 FR DUAL LUMEN 41 CM PICC IN THE LEFT BASILIC VEIN. ATTEMPT AT RIGHT ARM PICC PLACEMENT WAS UNSUCCESSFUL. VENOUS STRUCTURES ARE SMALL IN THE RIGHT UPPER ARM. PICC Line Insertion 10/29/18 00:00 IMPRESSION: SUCCESSFUL PLACEMENT OF A 5 FR DUAL LUMEN 41 CM PICC IN THE LEFT BASILIC VEIN. ATTEMPT AT RIGHT ARM PICC PLACEMENT WAS UNSUCCESSFUL. VENOUS STRUCTURES ARE SMALL IN THE RIGHT UPPER ARM. Assessment & Plan - Diagnosis (1) Sickle cell anemia with pain Is this a current diagnosis for this admission?: Yes Plan: Continue same pain meds for now. Nurses will call if these medications need to be adjusted. Patient should have IV fluids and O2 by MD continuously. (2) DVT prophylaxis Is this a current diagnosis for this admission?: Yes Plan: On SCDs and Lovenox.
[2018-10-30] MEDS: AMITRIPTYLINE HCL 25 MG TABLET PO SCH (08:37)
[2018-10-30] MEDS: ENOXAPARIN SODIUM INJ 40 MG/0.4 ML DISP.SYRIN SUBCUT SCH (11:33)
[2018-10-30] MEDS: FAMOTIDINE 20 MG TABLET PO SCH ×2 (11:34→22:04)
[2018-10-30] MEDS: AMLODIPINE BESYLATE 5 MG TABLET PO SCH (11:34)
[2018-10-30] MEDS: FOLIC ACID 1 MG TABLET PO SCH (11:35)
[2018-10-30] MEDS: FLUTICASONE NASAL SPRAY 50 MCG/SPRY 120 SPRAY/16 GM NASL SCH ×2 (11:35→22:04)
[2018-10-30] MEDS: HYDROXYUREA 500 MG CAPSULE PO SCH (11:36)
[2018-10-30] MEDS: PROMETHAZINE HCL 25 MG TABLET PO PRN (15:46)
[2018-10-30] MEDS ORDERED: PROMETHAZINE HCL INJ 25 MG/1 ML VIAL ONE (17:18)
--- NOTE | 2018-10-30 17:35 | PDOC PROGRESS REPORT ---
Subjective Progress Note for:: 10/30/18 Subjective:: The patient was seen on afternoon rounds. The patient is now utilizing supplemental oxygen via nasal cannula. She has K pad and IV fluids running. Fortunately while I was in the room, the patient began actively vomiting. She tells me that she continues to have diffuse pain, now spread to her neck and face without fever, chills, chest pain, palpitations, dyspnea, abdominal pain. She asks for IV Phenergan and has no other questions or concerns. No concerns per nursing. Reason For Visit: SICKLE CELL CRISIS Physical Exam Vital Signs: Temp Pulse Resp BP Pulse Ox 97.3 F 90 16 121/68 93 10/30/18 15:12 10/30/18 15:59 10/30/18 15:59 10/30/18 15:12 10/30/18 15:59 Intake & Output 10/29/18 10/30/18 10/31/18 06:59 06:59 06:59 Intake Total 3100 5250 825 Balance 3100 5250 825 Weight 64.8 kg 66 kg General appearance: PRESENT: cooperative, mild distress, well-developed, well- nourished Head exam: PRESENT: atraumatic, normocephalic Eye exam: PRESENT: conjunctiva pink, EOMI, PERRLA. ABSENT: scleral icterus Ear exam: PRESENT: normal external ear exam Mouth exam: PRESENT: moist, tongue midline Neck exam: ABSENT: carotid bruit, JVD, lymphadenopathy, thyromegaly Respiratory exam: PRESENT: clear to auscultation william, symmetrical. ABSENT: rales, rhonchi, wheezes Cardiovascular exam: PRESENT: RRR, +S1, +S2. ABSENT: diastolic murmur, rubs, systolic murmur Pulses: PRESENT: normal dorsalis pedis pul Vascular exam: PRESENT: normal capillary refill GI/Abdominal exam: PRESENT: normal bowel sounds, soft, other - Actively vomiting. ABSENT: distended, guarding, mass, organolmegaly, rebound, tenderness Rectal exam: PRESENT: deferred Extremities exam: PRESENT: full ROM. ABSENT: calf tenderness, clubbing, pedal edema Neurological exam: PRESENT: alert, awake, oriented to person, oriented to place, oriented to time, oriented to situation, CN II-XII grossly intact. ABSENT: motor sensory deficit Psychiatric exam: PRESENT: appropriate affect, normal mood. ABSENT: homicidal ideation, suicidal ideation Skin exam: PRESENT: dry, intact, warm. ABSENT: cyanosis, rash Results Laboratory Results: 10/30/18 05:10 10/30/18 05:10 10/30/18 10/30/18 05:10 05:10 WBC 10.9 H RBC 2.78 L Hgb 9.2 L Hct 25.8 L MCV 93 MCH 33.2 MCHC 35.7 RDW 21.7 H Plt Count 323 Sodium 138.6 Potassium 4.2 Chloride 108 H Carbon Dioxide 25 Anion Gap 6 BUN 5 L Creatinine 0.45 L Est GFR ( Amer) > 60 Est GFR (Non-Af Amer) > 60 Glucose 95 Calcium 9.1 Total Bilirubin 1.5 H AST 35 ALT 28 Alkaline Phosphatase 52 Total Protein 6.7 Albumin 4.0 Impressions: Chest X-Ray 10/28/18 17:46 IMPRESSION: NO ACUTE RADIOGRAPHIC FINDING IN THE CHEST. Guidance Fluoroscopy 10/29/18 00:00 IMPRESSION: SUCCESSFUL PLACEMENT OF A 5 FR DUAL LUMEN 41 CM PICC IN THE LEFT BASILIC VEIN. ATTEMPT AT RIGHT ARM PICC PLACEMENT WAS UNSUCCESSFUL. VENOUS STRUCTURES ARE SMALL IN THE RIGHT UPPER ARM. Interventional Vascular Procedure 10/29/18 00:00 IMPRESSION: SUCCESSFUL PLACEMENT OF A 5 FR DUAL LUMEN 41 CM PICC IN THE LEFT BASILIC VEIN. ATTEMPT AT RIGHT ARM PICC PLACEMENT WAS UNSUCCESSFUL. VENOUS STRUCTURES ARE SMA LL IN THE RIGHT UPPER ARM. PICC Line Insertion 10/29/18 00:00 IMPRESSION: SUCCESSFUL PLACEMENT OF A 5 FR DUAL LUMEN 41 CM PICC IN THE LEFT BASILIC VEIN. ATTEMPT AT RIGHT ARM PICC PLACEMENT WAS UNSUCCESSFUL. VENOUS STRUCTURES ARE SMALL IN THE RIGHT UPPER ARM. Assessment and Plan - Diagnosis (1) Sickle cell anemia with pain Is this a current diagnosis for this admission?: Yes Plan: History of sickle cell anemia came in with severe pain. Hgb 10.7 on admission; stable at 9.2 today Retic count elevated to 4.43 on admission. She is admitted to the medical floor. Providing generous IV fluids. Oxygen as needed for comfort; maintain oxygen saturations greater than 92%. Hematology is consulted; pain management per their expertise. Continue home dose hydroxyurea. Benadryl and Phenergan as needed. Monitor daily CBC; transfuse for hemoglobin less than 8. 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 It appears that her baseline is in the mid-9.0s. Hematology is consulted; recommends transfusing for hemoglobin less than 8. Continue multivitamin and folic acid supplementation. (3) Constipation Qualifiers: Constipation type: drug induced constipation Qualified Code(s): K59.03 - Drug induced constipation Is this a current diagnosis for this admission?: Yes Plan: History of chronic constipation most likely secondary to opioid use. (+) BM today Senokot and MiraLAX as needed. (4) Hypertension Qualifiers: Hypertension type: essential hypertension Qualified Code(s): I10 - Essential (primary) hypertension Is this a current diagnosis for this admission?: Yes Plan: Patient reports history of hypertension; normotensive today. Continue home dose amlodipine. Cardiac diet. (5) Major depression Qualifiers: Major depression recurrence: recurrent Major depression episode severity: moderate Is this a current diagnosis for this admission?: No Plan: History of depression. Continue home dose amitriptyline. (6) Migraine headache Is this a current diagnosis for this admission?: No Plan: History of migraine headaches. Home dose Fioricet will be available while admitted. (7) Nausea and vomiting Qualifiers: Vomiting type: unspecified Vomiting Intractability: non-intractable Qualified Code(s): R11.2 - Nausea with vomiting, unspecified Is this a current diagnosis for this admission?: Yes Plan: Likely secondary to pain and opiate medications. Antiemetics as needed. Continue IV fluids. - Time Time Spent with patient: 15-24 minutes Medications reviewed and adjusted accordingly: Yes Anticipated discharge: Home
[2018-10-30] MEDS: NORMAL SALINE 1000 ML 1,000 ML IV PRN (17:52)
[2018-10-30] MEDS: PROMETHAZINE HCL INJ 25 MG/1 ML VIAL IV PRN (22:00)
[2018-10-30] MEDS: AMITRIPTYLINE HCL 50 MG TABLET PO SCH (22:04)
[2018-10-30] MEDS: CETIRIZINE 10 MG TABLET PO SCH (22:04)
[2018-10-30] MEDS ORDERED: NORMAL SALINE 10 ML SDV (AFTER EACH USE) IV PRN (22:30)
[2018-10-31] MEDS: HYDROMORPHONE HCL INJ/PF 2 MG/ML AMPULE IV PRN ×10 (00:43→23:05)
[2018-10-31] MEDS: PROMETHAZINE HCL INJ 25 MG/1 ML VIAL IV PRN ×4 (02:48→16:49)
[2018-10-31 07:11] LABS: HEMOGLOBIN 8.2 g/dL (12.0-15.5); RED BLOOD COUNT 2.54 10^6/uL (3.72-5.28); WHITE BLOOD COUNT 9.3 10^3/uL (4.0-10.5)
[2018-10-31 07:12] LABS: ABSOLUTE EOSINOPHILS # (AUTO) 0.1 10^3/uL (0.0-0.6); ABSOLUTE LYMPHOCYTES (AUTO) 0.9 10^3/uL (0.5-4.7); ABSOLUTE MONOCYTES (AUTO) 0.5 10^3/uL (0.1-1.4); ABSOLUTE NEUT (AUTO) 7.7 10^3/uL (1.7-8.2); ABSOLUTE RETICS # 0.038 10^6/uL (0.028-0.122); BASOPHILS % (AUTO) 0.4 % (0-2); EOSINOPHILS % (AUTO) 1.1 % (0-6); HEMATOCRIT 22.3 % (36.0-47.0); MEAN CORPUSCULAR HEMOGLOBIN 32.3 pg (27.0-33.4); MEAN CORPUSCULAR HGB CONC 36.7 g/dL (32.0-36.0); MONOCYTES % (AUTO) 5.1 % (3-13); PLATELET COUNT 258 10^3/uL (150-450); RED CELL DISTRIBUTION WIDTH 23.1 % (11.5-14.0); SEGMENTED NEUTROPHILS % (AUTO) 83.4 % (42-78); TOTAL CELLS COUNTED % (AUTO) 100 %
[2018-10-31 07:24] LABS: ANION GAP 10 (5-19); BLOOD UREA NITROGEN 7 mg/dL (7-20); CARBON DIOXIDE 26 mmol/L (22-30); CHLORIDE 102 mmol/L (98-107); GLUCOSE 79 mg/dL (75-110); POTASSIUM 4.3 mmol/L (3.6-5.0); SODIUM 138.1 mmol/L (137-145)
[2018-10-31 08:23] LABS: RETICULOCYTE COUNT (AUTO) 1.49 % (0.66-2.85)
[2018-10-31 08:25] LABS: MEAN CORPUSCULAR VOLUME 88 fl (80-97)
[2018-10-31] MEDS: AMITRIPTYLINE HCL 25 MG TABLET PO SCH (08:27)
--- NOTE | 2018-10-31 09:30 | PDOC PROGRESS REPORT ---
Subjective Progress Note for:: 10/31/18 Subjective:: Severe pain still, severe nausea and vomiting and itching Reason For Visit: SICKLE CELL CRISIS Physical Exam Vital Signs: Temp Pulse Resp BP Pulse Ox 98.3 F 105 H 16 128/65 H 93 10/31/18 02:50 10/31/18 02:50 10/31/18 02:50 10/31/18 02:50 10/31/18 02:50 Intake & Output 10/30/18 10/31/18 11/01/18 06:59 06:59 06:59 Intake Total 5250 2100 Balance 5250 2100 Weight 66 kg 70.8 kg General appearance: PRESENT: no acute distress, well-developed, well-nourished Head exam: PRESENT: atraumatic, normocephalic Eye exam: PRESENT: conjunctiva pink, EOMI, PERRLA. ABSENT: scleral icterus Ear exam: PRESENT: normal external ear exam Mouth exam: PRESENT: moist, tongue midline Neck exam: ABSENT: carotid bruit, JVD, lymphadenopathy, thyromegaly Respiratory exam: PRESENT: clear to auscultation william. ABSENT: rales, rhonchi, wheezes Cardiovascular exam: PRESENT: RRR. ABSENT: diastolic murmur, rubs, systolic murmur Pulses: PRESENT: normal dorsalis pedis pul Vascular exam: PRESENT: normal capillary refill GI/Abdominal exam: PRESENT: normal bowel sounds, soft. ABSENT: distended, guarding, mass, organolmegaly, rebound, tenderness Rectal exam: PRESENT: deferred Extremities exam: PRESENT: full ROM. ABSENT: calf tenderness, clubbing, pedal edema Neurological exam: PRESENT: alert, awake, oriented to person, oriented to place, oriented to time, oriented to situation, CN II-XII grossly intact. ABSENT: motor sensory deficit Psychiatric exam: PRESENT: appropriate affect, normal mood. ABSENT: homicidal ideation, suicidal ideation Skin exam: PRESENT: dry, intact, warm. ABSENT: cyanosis, rash Results Laboratory Results: 10/31/18 06:20 10/31/18 06:20 10/31/18 10/31/18 06:20 06:20 WBC 9.3 RBC 2.54 L Hgb 8.2 L Hct 22.3 L MCV 88 D MCH 32.3 MCHC 36.7 H RDW 23.1 H Plt Count 258 Seg Neutrophils % 83.4 H Lymphocytes % 10.0 L Monocytes % 5.1 Eosinophils % 1.1 Basophils % 0.4 Absolute Neutrophils 7.7 Absolute Lymphocytes 0.9 Absolute Monocytes 0.5 Absolute Eosinophils 0.1 Absolute Basophils 0.0 Retic Count (auto) 1.49 D Absolute Retic 0.038 Sodium 138.1 Potassium 4.3 Chloride 102 Carbon Dioxide 26 Anion Gap 10 BUN 7 Creatinine 0.44 L Est GFR ( Amer) > 60 Est GFR (Non-Af Amer) > 60 Glucose 79 Calcium 9.0 Impressions: Chest X-Ray 10/28/18 17:46 IMPRESSION: NO ACUTE RADIOGRAPHIC FINDING IN THE CHEST. Guidance Fluoroscopy 10/29/18 00:00 IMPRESSION: SUCCESSFUL PLACEMENT OF A 5 FR DUAL LUMEN 41 CM PICC IN THE LEFT BASILIC VEIN. ATTEMPT AT RIGHT ARM PICC PLACEMENT WAS UNSUCCESSFUL. VENOUS STRUCTURES ARE SMALL IN THE RIGHT UPPER ARM. Interventional Vascular Procedure 10/29/18 00:00 IMPRESSION: SUCCESSFUL PLACEMENT OF A 5 FR DUAL LUMEN 41 CM PICC IN THE LEFT BASILIC VEIN. ATTEMPT AT RIGHT ARM PICC PLACEMENT WAS UNSUCCESSFUL. VENOUS STRUCTURES ARE SMALL IN THE RIGHT UPPER ARM. PICC Line Insertion 10/29/18 00:00 IMPRESSION: SUCCESSFUL PLACEMENT OF A 5 FR DUAL LUMEN 41 CM PICC IN THE LEFT BASILIC VEIN. ATTEMPT AT RIGHT ARM PICC PLACEMENT WAS UNSUCCESSFUL. VENOUS STRUCTURES ARE SMALL IN THE RIGHT UPPER ARM. Assessment & Plan - Diagnosis (1) Sickle cell anemia with pain Is this a current diagnosis for this admission?: Yes Plan: Increased pain medication to Dilaudid every 2 hours 5 mg, will give small dose of IV Benadryl also to be ordered, continue with other supportive measures, pain crisis is very severe still, may even need higher doses of Dilaudid through the weekend. 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 Hemolytic anemia type: other hemoglobinopathy Qualified Code(s): D58.2 - Other hemoglobinopathies Is this a current diagnosis for this admission?: Yes Plan: Need for transfusion yet, transfuse if hemoglobin gets under 8 - Time Time Spent with patient: 35 or more minutes - Inpatient Certification Based on my medical assessment, after consideration of the patient's comorbidities, presenting symptoms, or acuity I expect that the services needed warrant INPATIENT care.: Yes I certify that my determination is in accordance with my understanding of Medicare's requirements for reasonable and necessary INPATIENT services [42 CFR 412.3e].: Yes Medical Necessity: Need For IV Fluids, Need for Pain Control
[2018-10-31] MEDS: AMLODIPINE BESYLATE 5 MG TABLET PO SCH (10:49)
[2018-10-31] MEDS: FAMOTIDINE 20 MG TABLET PO SCH ×2 (10:49→23:03)
[2018-10-31] MEDS: FOLIC ACID 1 MG TABLET PO SCH (10:50)
[2018-10-31] MEDS: FLUTICASONE NASAL SPRAY 50 MCG/SPRY 120 SPRAY/16 GM NASL SCH ×2 (10:50→23:02)
[2018-10-31] MEDS: ENOXAPARIN SODIUM INJ 40 MG/0.4 ML DISP.SYRIN SUBCUT SCH (10:51)
[2018-10-31] MEDS: HYDROXYUREA 500 MG CAPSULE PO SCH (10:53)
[2018-10-31] MEDS: NORMAL SALINE 10 ML SDV (SCHEDULED) IV SCH ×2 (10:54→23:04)
--- NOTE | 2018-10-31 11:05 | RADIOLOGY REPORT (SQ) ---
EXAM DESCRIPTION: CT CHEST WITHOUT COMPLETED DATE/TIME: 10/31/2018 10:19 am REASON FOR STUDY: eval. chest crisis, sickle cell COMPARISON: 05/23/2018. TECHNIQUE: CT scan performed of the chest without intravenous contrast. Images reviewed with lung, soft tissue and bone windows. Reconstructed coronal and sagittal MPR images reviewed. All images st ored on PACS. All CT scanners at this facility use dose modulation, iterative reconstruction, and/or weight based d osing when appropriate to reduce radiation dose to as low as reasonably achievable (ALARA). [facility]: Dose Right [facility]: CareDose [facility]: Dose Right [facility]: Teradose 4D [facility]: [employer] RADIATION DOSE: CT Rad equipment meets quality standard of care and radiation dose reduction techniq ues were employed. CTDIvol: 3.7 mGy. DLP: 145 mGy-cm. mGy. LIMITATIONS: No technical limitations. FINDINGS: LUNGS AND PLEURA: No masses, infiltrates, or pneumothorax. Stable mild linear densities i n the lung bases. No pleural effusions or pleural calcifications. HILAR AND MEDIASTINAL STRUCTURES: No identified masses or abnormal nodes. No obvious aneurysm. HEART AND VASCULAR STRUCTURES: No aneurysm. No pericardial effusion. UPPER ABDOMEN: No significant findings. Limited exam. THYROID AND OTHER SOFT TISSUES: No masses. No adenopathy. BONES: No significant finding. HARDWARE: PICC line. OTHER: No other significant findings. IMPRESSION: STABLE MILD SCARRING IN THE LUNG BASES. NO SIGNIFICANT FINDING ON NON-CONTRASTED CHEST CT. TECHNICAL DOCUMENTATION: JOB ID: [id number] Quality ID # [id number]: Final reports with documentation of one or more dose reduction techniques (e.g., Au tomated exposure control, adjustment of the mA and/or kV according to patient size, use of iterative reconstruction technique) 2010 [employer]- All Rights Reserved Reading location - IP/workstation name: [id number]S AT [facility]
[2018-10-31] MEDS: DIPHENHYDRAMINE HCL 50 MG/ML VIAL IV PRN ×2 (12:39→20:20)
--- NOTE | 2018-10-31 17:32 | PDOC PROGRESS REPORT ---
Subjective Progress Note for:: 10/31/18 Subjective:: The patient was seen on afternoon rounds. The patient is now utilizing supplemental oxygen via nasal cannula. She has K pad and IV fluids running. Dilaudid increased again today by hematology with slight improvement in discomfort. She tells me that she continues to have diffuse pain, now spread to her neck and face without fever, chills, chest pain, palpitations, dyspnea, abdominal pain. Fortunately, the patient's CTA of the chest was benign. She asks for a B12 injection which she reports was scheduled for today. She otherwise denies fever, chills, palpitations, dyspnea, orthopnea, vomiting, diarrhea. She has no other questions or concerns at this time. No concerns per nursing. Reason For Visit: SICKLE CELL CRISIS Physical Exam Vital Signs: Temp Pulse Resp BP Pulse Ox 97.5 F 101 H 21 H 119/62 94 10/31/18 16:23 10/31/18 16:23 10/31/18 08:20 10/31/18 16:23 10/31/18 16:23 Intake & Output 10/30/18 10/31/18 11/01/18 06:59 06:59 06:59 Intake Total 5250 2100 Balance 5250 2100 Weight 66 kg 70.8 kg General appearance: PRESENT: no acute distress, cooperative, mild distress, well-developed, well-nourished Head exam: PRESENT: atraumatic, normocephalic Eye exam: PRESENT: conjunctiva pink, EOMI, PERRLA. ABSENT: scleral icterus Mouth exam: PRESENT: moist, tongue midline Neck exam: ABSENT: carotid bruit, JVD, lymphadenopathy, thyromegaly Respiratory exam: PRESENT: clear to auscultation william, symmetrical, unlabored. ABSENT: rales, rhonchi, wheezes Cardiovascular exam: PRESENT: RRR, +S1, +S2, tachycardia. ABSENT: diastolic murmur, rubs, systolic murmur Pulses: PRESENT: normal dorsalis pedis pul Vascular exam: PRESENT: normal capillary refill GI/Abdominal exam: PRESENT: normal bowel sounds, soft. ABSENT: distended, guarding, mass, organolmegaly, rebound, tenderness Rectal exam: PRESENT: deferred Extremities exam: PRESENT: full ROM. ABSENT: calf tenderness, clubbing, pedal edema Neurological exam: PRESENT: alert, awake, oriented to person, oriented to place, oriented to time, oriented to situation, CN II-XII grossly intact. ABSENT: motor sensory deficit Psychiatric exam: PRESENT: appropriate affect, normal mood. ABSENT: homicidal ideation, suicidal ideation Skin exam: PRESENT: dry, intact, warm. ABSENT: cyanosis, rash Results Laboratory Results: 10/31/18 06:20 10/31/18 06:20 10/31/18 10/31/18 06:20 06:20 WBC 9.3 RBC 2.54 L Hgb 8.2 L Hct 22.3 L MCV 88 D MCH 32.3 MCHC 36.7 H RDW 23.1 H Plt Count 258 Seg Neutrophils % 83.4 H Lymphocytes % 10.0 L Monocytes % 5.1 Eosinophils % 1.1 Basophils % 0.4 Absolute Neutrophils 7.7 Absolute Lymphocytes 0.9 Absolute Monocytes 0.5 Absolute Eosinophils 0.1 Absolute Basophils 0.0 Retic Count (auto) 1.49 D Absolute Retic 0.038 Sodium 138.1 Potassium 4.3 Chloride 102 Carbon Dioxide 26 Anion Gap 10 BUN 7 Creatinine 0.44 L Est GFR ( Amer) > 60 Est GFR (Non-Af Amer) > 60 Glucose 79 Calcium 9.0 Impressions: Chest X-Ray 10/28/18 17:46 IMPRESSION: NO ACUTE RADIOGRAPHIC FINDING IN THE CHEST. Guidance Fluoroscopy 10/29/18 00:00 IMPRESSION: SUCCESSFUL PLACEMENT OF A 5 FR DUAL LUMEN 41 CM PICC IN THE LEFT BASILIC VEIN. ATTEMPT AT RIGHT ARM PICC PLACEMENT WAS UNSUCCESSFUL. VENOUS STRUCTURES ARE SMALL IN THE RIGHT UPPER ARM. Interventional Vascular Procedure 10/29/18 00:00 IMPRESSION: SUCCESSFUL PLACEMENT OF A 5 FR DUAL LUMEN 41 CM PICC IN THE LEFT BASILIC VEIN. ATTEMPT AT RIGHT ARM PICC PLACEMENT WAS UNSUCCESSFUL. VENOUS STRUCTURES ARE SMALL IN THE RIGHT UPPER ARM. PICC Line Insertion 10/29/18 00:00 IMPRESSION: SUCCESSFUL PLACEMENT OF A 5 FR DUAL LUMEN 41 CM PICC IN THE LEFT BASILIC VEIN. ATTEMPT AT RIGHT ARM PICC PLACEMENT WAS UNSUCCESSFUL. VENOUS STRUCTURES ARE SMALL IN THE RIGHT UPPER ARM. Chest CT 10/31/18 00:00 IMPRESSION: STABLE MILD SCARRING IN THE LUNG BASES. NO SIGNIFICANT FINDING ON NON-CONTRASTED CHEST CT. Assessment and Plan - Diagnosis (1) Sickle cell anemia with pain Is this a current diagnosis for this admission?: Yes Plan: History of sickle cell anemia came in with severe pain. Hgb 10.7 on admission; stable at 8.2 today Retic count elevated to 4.43 on admission; decreased to 1.49 today. She is admitted to the medical floor. Providing generous IV fluids. Oxygen as needed for comfort; maintain oxygen saturations greater than 92%. Hematology is consulted; pain management per their expertise. Continue home dose hydroxyurea. Benadryl and Phenergan as needed. Monitor daily CBC; transfuse for hemoglobin less than 8. 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 It appears that her baseline is in the mid-9.0s. Hematology is consulted; recommends transfusing for hemoglobin less than 8. Continue multivitamin and folic acid supplementation. B12 IM x1 today. (3) Constipation Qualifiers: Constipation type: drug induced constipation Qualified Code(s): K59.03 - Drug induced constipation Is this a current diagnosis for this admission?: Yes Plan: History of chronic constipation most likely secondary to opioid use. (+) BM yesterday Senokot and MiraLAX as needed. (4) Hypertension Qualifiers: Hypertension type: essential hypertension Qualified Code(s): I10 - Essential (primary) hypertension Is this a current diagnosis for this admission?: Yes Plan: Patient reports history of hypertension; normotensive today. Continue home dose amlodipine. Cardiac diet. (5) Major depression Qualifiers: Major depression recurrence: recurrent Major depression episode severity: moderate Is this a current diagnosis for this admission?: No Plan: History of depression. Continue home dose amitriptyline. (6) Migraine headache Is this a current diagnosis for this admission?: No Plan: History of migraine headaches. Home dose Fioricet will be available while admitted. (7) Nausea and vomiting Qualifiers: Vomiting type: unspecified Vomiting Intractability: non-intractable Qualified Code(s): R11.2 - Nausea with vomiting, unspecified Is this a current diagnosis for this admission?: Yes Plan: Improved; continued nausea but without emesis today. Likely secondary to pain and opiate medications. Antiemetics as needed. Continue IV fluids. - Time Time Spent with patient: 15-24 minutes
[2018-10-31] MEDS: NORMAL SALINE 1000 ML 1,000 ML IV PRN (17:59)
[2018-10-31] MEDS ORDERED: CYANOCOBALAMIN (VITAMIN B-12) INJ 1000 MCG/1 ML VIAL IM ONE (19:00)
[2018-10-31] MEDS: PROMETHAZINE HCL 25 MG TABLET PO PRN (20:22)
[2018-10-31] MEDS: AMITRIPTYLINE HCL 50 MG TABLET PO SCH (23:03)
[2018-10-31] MEDS: CETIRIZINE 10 MG TABLET PO SCH (23:03)
[2018-10-31] MEDS: TEMAZEPAM 15 MG CAPSULE PO PRN (23:35)
[2018-11-01] MEDS: NORMAL SALINE 1000 ML 1,000 ML IV PRN (02:45)
[2018-11-01] MEDS: HYDROMORPHONE HCL INJ/PF 2 MG/ML AMPULE IV PRN ×8 (02:47→21:12)
[2018-11-01] MEDS: PROMETHAZINE HCL INJ 25 MG/1 ML VIAL IV PRN ×3 (02:47→15:09)
[2018-11-01] MEDS: DIPHENHYDRAMINE HCL 50 MG/ML VIAL IV PRN ×3 (06:04→18:41)
[2018-11-01 07:00] LABS: HEMATOCRIT 18.6 % (36.0-47.0); MEAN CORPUSCULAR HEMOGLOBIN 31.9 pg (27.0-33.4); MEAN CORPUSCULAR VOLUME 86 fl (80-97); PLATELET COUNT 200 10^3/uL (150-450); RED BLOOD COUNT 2.16 10^6/uL (3.72-5.28); RED CELL DISTRIBUTION WIDTH 23.9 % (11.5-14.0); WHITE BLOOD COUNT 6.3 10^3/uL (4.0-10.5)
[2018-11-01 07:26] LABS: HEMOGLOBIN 6.9 g/dL (12.0-15.5)
[2018-11-01] MEDS ORDERED: NORMAL SALINE 250 ML IV PRN ×2 (08:00)
[2018-11-01] MEDS: AMITRIPTYLINE HCL 25 MG TABLET PO SCH (08:04)
[2018-11-01] MEDS: AMLODIPINE BESYLATE 5 MG TABLET PO SCH (10:24)
[2018-11-01] MEDS: FAMOTIDINE 20 MG TABLET PO SCH ×2 (10:24→21:13)
[2018-11-01] MEDS: FOLIC ACID 1 MG TABLET PO SCH (10:24)
[2018-11-01] MEDS: ENOXAPARIN SODIUM INJ 40 MG/0.4 ML DISP.SYRIN SUBCUT SCH (10:26)
[2018-11-01] MEDS: NORMAL SALINE 10 ML SDV (SCHEDULED) IV SCH ×2 (10:26→21:41)
[2018-11-01] MEDS: HYDROXYUREA 500 MG CAPSULE PO SCH (10:36)
[2018-11-01] MEDS: FLUTICASONE NASAL SPRAY 50 MCG/SPRY 120 SPRAY/16 GM NASL SCH ×2 (10:36→21:14)
--- NOTE | 2018-11-01 11:32 | PDOC PROGRESS REPORT ---
Subjective Progress Note for:: 11/01/18 Subjective:: Patient still complains of pain. She is also very tearful today. She states that pain is getting worse instead of better. She feels like giving up. She feels very bad when the nursing staff does not understand her pain and how bad she is feeling. We discussed the fact that it has been a long time since she has been seen at a [facility]. She is open to this idea to see if there is anything new that she can do to prevent these crises in the first place. She is very depressed today and states that at one time, she was told her amytriptalline should be give 100 mg qHS, but this has not happened. She does not believe the flexeril is working any more. She is open to trying something new. Anything that will help her pain. Reason For Visit: SICKLE CELL CRISIS Physical Exam Vital Signs: Temp Pulse Resp BP Pulse Ox 97.8 F 90 16 140/80 H 93 11/01/18 07:39 11/01/18 08:00 11/01/18 08:00 11/01/18 07:39 11/01/18 08:00 Intake & Output 10/31/18 11/01/18 11/02/18 06:59 06:59 06:59 Intake Total 2100 2000 Output Total 1650 Balance 2100 350 Weight 70.8 kg 70.8 kg General appearance: PRESENT: no acute distress, well-developed, well-nourished Exam: 28 year old female in obvious distress. Very tearful. Head exam: PRESENT: normocephalic Eye exam: PRESENT: EOMI Respiratory exam: PRESENT: clear to auscultation william, prolonged expiratory phas Cardiovascular exam: PRESENT: RRR GI/Abdominal exam: PRESENT: soft, tenderness Musculoskeletal exam: PRESENT: normal inspection Neurological exam: PRESENT: alert, awake, normal gait Psychiatric exam: PRESENT: appropriate affect, depressed Skin exam: PRESENT: normal color Results Laboratory Results: 11/01/18 06:20 10/31/18 06:20 11/01/18 06:20 WBC 6.3 RBC 2.16 L Hgb 6.9 L Hct 18.6 L MCV 86 MCH 31.9 MCHC 37.0 H RDW 23.9 H Plt Count 200 Impressions: Chest X-Ray 10/28/18 17:46 IMPRESSION: NO ACUTE RADIOGRAPHIC FINDING IN THE CHEST. Guidance Fluoroscopy 10/29/18 00:00 IMPRESSION: SUCCESSFUL PLACEMENT OF A 5 FR DUAL LUMEN 41 CM PICC IN THE LEFT BASILIC VEIN. ATTEMPT AT RIGHT ARM PICC PLACEMENT WAS UNSUCCESSFUL. VENOUS STRUCTURES ARE SMALL IN THE RIGHT UPPER ARM. Interventional Vascular Procedure 10/29/18 00:00 IMPRESSION: SUCCESSFUL PLACEMENT OF A 5 FR DUAL LUMEN 41 CM PICC IN THE LEFT BASILIC VEIN. ATTEMPT AT RIGHT ARM PICC PLACEMENT WAS UNSUCCESSFUL. VENOUS STRUCTURES ARE SMALL IN THE RIGHT UPPER ARM. PICC Line Insertion 10/29/18 00:00 IMPRESSION: SUCCESSFUL PLACEMENT OF A 5 FR DUAL LUMEN 41 CM PICC IN THE LEFT BASILIC VEIN. ATTEMPT AT RIGHT ARM PICC PLACEMENT WAS UNSUCCESSFUL. VENOUS STRUCTURES ARE SMALL IN THE RIGHT UPPER ARM. Chest CT 10/31/18 00:00 IMPRESSION: STABLE MILD SCARRING IN THE LUNG BASES. NO SIGNIFICANT FINDING ON NON-CONTRASTED CHEST CT. Assessment & Plan - Diagnosis (1) Sickle cell anemia with pain Is this a current diagnosis for this admission?: Yes Plan: I will continue same dose dilaudid for now, but I will increase amytriptalline and will change Felexeril to skelaxin to see if this helps. Blood transfusion was ordered. (2) DVT prophylaxis Is this a current diagnosis for this admission?: Yes Plan: She is on Lovenox currently. - Plan Summary Plan Summary: I spoke with the nurses to make sure patient receives her MIVF as the bag is again empty. I also encouraged patient to use oxygen again.
[2018-11-01] MEDS: METAXALONE 800 MG TABLET PO SCH ×2 (15:08→18:41)
--- NOTE | 2018-11-01 15:08 | PDOC PROGRESS REPORT ---
Subjective Progress Note for:: 11/01/18 Subjective:: The patient was seen on morning rounds. The patient is now utilizing supplemental oxygen via nasal cannula. She has K pad and IV fluids running. She reports that she is exhausted by the pain and is frustrated; feeling like her crisis and overall health is worsening and not improving. She is encouraged to discuss this with Dr. Khalil and to also explore additional pain medication options with Dr. Khalil when she visits shortly. She denies fever, chills, chest pain, palpitations, dyspnea, abdominal pain. Fortunately, the patient's CTA of the chest was benign. She has no other questions or concerns at this time. No concerns per nursing. Reason For Visit: SICKLE CELL CRISIS Physical Exam Vital Signs: Temp Pulse Resp BP Pulse Ox 98.2 F 99 18 131/67 H 95 11/01/18 12:29 11/01/18 12:29 11/01/18 12:29 11/01/18 12:29 11/01/18 12:29 Intake & Output 10/31/18 11/01/18 11/02/18 06:59 06:59 06:59 Intake Total 2100 2000 Output Total 1650 Balance 2100 350 Weight 70.8 kg 70.8 kg General appearance: PRESENT: cooperative, mild distress - Mild to moderate distress secondary to acute pain., well-developed, well-nourished Head exam: PRESENT: atraumatic, normocephalic Eye exam: PRESENT: conjunctiva pink, EOMI, PERRLA. ABSENT: scleral icterus Mouth exam: PRESENT: moist, tongue midline Neck exam: ABSENT: carotid bruit, JVD, lymphadenopathy, thyromegaly Respiratory exam: PRESENT: clear to auscultation william, symmetrical, unlabored. ABSENT: rales, rhonchi, wheezes Cardiovascular exam: PRESENT: RRR, +S1, +S2. ABSENT: diastolic murmur, rubs, systolic murmur Pulses: PRESENT: normal dorsalis pedis pul Vascular exam: PRESENT: normal capillary refill GI/Abdominal exam: PRESENT: normal bowel sounds, soft. ABSENT: distended, guarding, mass, organolmegaly, rebound, tenderness Rectal exam: PRESENT: deferred Extremities exam: PRESENT: full ROM. ABSENT: calf tenderness, clubbing, pedal edema Neurological exam: PRESENT: alert, awake, oriented to person, oriented to place, oriented to time, oriented to situation, CN II-XII grossly intact. ABSENT: motor sensory deficit Psychiatric exam: PRESENT: agitated, depressed. ABSENT: homicidal ideation, suicidal ideation Skin exam: PRESENT: dry, intact, warm. ABSENT: cyanosis, rash Results Laboratory Results: 11/01/18 06:20 10/31/18 06:20 11/01/18 06:20 WBC 6.3 RBC 2.16 L Hgb 6.9 L Hct 18.6 L MCV 86 MCH 31.9 MCHC 37.0 H RDW 23.9 H Plt Count 200 Impressions: Chest X-Ray 10/28/18 17:46 IMPRESSION: NO ACUTE RADIOGRAPHIC FINDING IN THE CHEST. Guidance Fluoroscopy 10/29/18 00:00 IMPRESSION: SUCCESSFUL PLACEMENT OF A 5 FR DUAL LUMEN 41 CM PICC IN THE LEFT BASILIC VEIN. ATTEMPT AT RIGHT ARM PICC PLACEMENT WAS UNSUCCESSFUL. VENOUS STRUCTURES ARE SMALL IN THE RIGHT UPPER ARM. Interventional Vascular Procedure 10/29/18 00:00 IMPRESSION: SUCCESSFUL PLACEMENT OF A 5 FR DUAL LUMEN 41 CM PICC IN THE LEFT BASILIC VEIN. ATTEMPT AT RIGHT ARM PICC PLACEMENT WAS UNSUCCESSFUL. VENOUS STRUCTURES ARE SMALL IN THE RIGHT UPPER ARM. PICC Line Insertion 10/29/18 00:00 IMPRESSION: SUCCESSFUL PLACEMENT OF A 5 FR DUAL LUMEN 41 CM PICC IN THE LEFT BASILIC VEIN. ATTEMPT AT RIGHT ARM PICC PLACEMENT WAS UNSUCCESSFUL. VENOUS STRUCTURES ARE SMALL IN THE RIGHT UPPER ARM. Chest CT 10/31/18 00:00 IMPRESSION: STABLE MILD SCARRING IN THE LUNG BASES. NO SIGNIFICANT FINDING ON NON-CONTRASTED CHEST CT. Assessment and Plan - Diagnosis (1) Sickle cell anemia with pain Is this a current diagnosis for this admission?: Yes Plan: History of sickle cell anemia came in with severe pain. Hgb 10.7 on admission; Trended down to 6.9 today. Retic count elevated to 4.43 on admission; decreased to 1.49 yesterday. Patient is clearly and worsened discomfort. Will receive 1 unit PRBC today She is admitted to the medical floor. Providing generous IV fluids. Oxygen as needed for comfort; maintain oxygen saturations greater than 92%. Hematology is consulted; pain management per their expertise. Continue home dose hydroxyurea. Benadryl and Phenergan as needed. Monitor daily CBC; transfuse for hemoglobin less than 8. 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 It appears that her baseline is in the mid-9.0s. Will receive 1 unit PRBC today. Hematology is consulted; recommends transfusing for hemoglobin less than 8. Continue multivitamin and folic acid supplementation. B12 IM x1 yesterday (3) Constipation Qualifiers: Constipation type: drug induced constipation Qualified Code(s): K59.03 - Dr ug induced constipation Is this a current diagnosis for this admission?: Yes Plan: History of chronic constipation most likely secondary to opioid use. Senokot and MiraLAX as needed. (4) Hypertension Qualifiers: Hypertension type: essential hypertension Qualified Code(s): I10 - Essential (primary) hypertension Is this a current diagnosis for this admission?: Yes Plan: Patient reports history of hypertension; normotensive today. Continue home dose amlodipine. Cardiac diet. (5) Major depression Qualifiers: Major depression recurrence: recurrent Major depression episode severity: moderate Is this a current diagnosis for this admission?: No Plan: History of depression. Amitriptyline dosing increased today. (6) Migraine headache Is this a current diagnosis for this admission?: No Plan: History of migraine headaches. Home dose Fioricet will be available while admitted. (7) Nausea and vomiting Qualifiers: Vomiting type: unspecified Vomiting Intractability: non-intractable Qualified Code(s): R11.2 - Nausea with vomiting, unspecified Is this a current diagnosis for this admission?: Yes Plan: Improved; continued nausea but without emesis today. Likely secondary to pain and opiate medications. Antiemetics as needed. Continue IV fluids. - Time Time Spent with patient: 25-34 minutes Medications reviewed and adjusted accordingly: Yes Anticipated discharge: Home
[2018-11-01] MEDS: CETIRIZINE 10 MG TABLET PO SCH (21:13)
[2018-11-01] MEDS ORDERED: AMITRIPTYLINE HCL 25 MG TABLET ONE (21:24)
[2018-11-01] MEDS: AMITRIPTYLINE HCL 50 MG TABLET PO SCH (21:29)
[2018-11-02 03:39] LABS: ABSOLUTE BASOPHILS # (AUTO) 0.1 10^3/uL (0.0-0.2); ABSOLUTE EOSINOPHILS # (AUTO) 0.2 10^3/uL (0.0-0.6); ABSOLUTE LYMPHOCYTES (AUTO) 2.8 10^3/uL (0.5-4.7); ABSOLUTE MONOCYTES (AUTO) 0.6 10^3/uL (0.1-1.4); ABSOLUTE NEUT (AUTO) 4.2 10^3/uL (1.7-8.2); BASOPHILS % (AUTO) 1.4 % (0-2); EOSINOPHILS % (AUTO) 2.8 % (0-6); HEMATOCRIT 22.8 % (36.0-47.0); HEMOGLOBIN 8.4 g/dL (12.0-15.5); LYMPHOCYTES % (AUTO) 35.4 % (13-45); MEAN CORPUSCULAR VOLUME 84 fl (80-97); MONOCYTES % (AUTO) 7.6 % (3-13); PLATELET COUNT 211 10^3/uL (150-450); RED BLOOD COUNT 2.71 10^6/uL (3.72-5.28); RED CELL DISTRIBUTION WIDTH 22.1 % (11.5-14.0); SEGMENTED NEUTROPHILS % (AUTO) 52.8 % (42-78); TOTAL CELLS COUNTED % (AUTO) 100 %; WHITE BLOOD COUNT 7.9 10^3/uL (4.0-10.5)
[2018-11-02 03:47] LABS: PLATELET COMMENT ADEQUATE
[2018-11-02 03:53] LABS: ANISOCYTOSIS 3+; HYPOCHROMASIA SLIGHT; POLYCHROMASIA SLIGHT
[2018-11-02 03:54] LABS: SICKLE RED CELLS 3+; TARGET CELLS 2+
[2018-11-02] MEDS: HYDROMORPHONE HCL INJ/PF 2 MG/ML AMPULE IV PRN ×9 (04:17→22:00)
[2018-11-02] MEDS: DIPHENHYDRAMINE HCL 50 MG/ML VIAL IV PRN ×3 (05:05→19:03)
[2018-11-02 05:26] LABS: ABSOLUTE BASOPHILS # (AUTO) 0.1 10^3/uL (0.0-0.2); ABSOLUTE EOSINOPHILS # (AUTO) 0.1 10^3/uL (0.0-0.6); ABSOLUTE LYMPHOCYTES (AUTO) 2.3 10^3/uL (0.5-4.7); ABSOLUTE MONOCYTES (AUTO) 0.5 10^3/uL (0.1-1.4); ABSOLUTE NEUT (AUTO) 3.3 10^3/uL (1.7-8.2); BASOPHILS % (AUTO) 0.8 % (0-2); HEMATOCRIT 21.8 % (36.0-47.0); LYMPHOCYTES % (AUTO) 36.5 % (13-45); MEAN CORPUSCULAR HEMOGLOBIN 30.8 pg (27.0-33.4); MEAN CORPUSCULAR HGB CONC 36.7 g/dL (32.0-36.0); MEAN CORPUSCULAR VOLUME 84 fl (80-97); MONOCYTES % (AUTO) 8.1 % (3-13); PLATELET COUNT 202 10^3/uL (150-450); RED CELL DISTRIBUTION WIDTH 23.6 % (11.5-14.0); SEGMENTED NEUTROPHILS % (AUTO) 52.6 % (42-78); TOTAL CELLS COUNTED % (AUTO) 100 %; WHITE BLOOD COUNT 6.2 10^3/uL (4.0-10.5)
[2018-11-02 06:03] LABS: ANISOCYTOSIS 3+; HYPOCHROMASIA 1+
[2018-11-02 06:04] LABS: PLATELET COMMENT ADEQUATE; SICKLE RED CELLS 3+; TARGET CELLS 2+
[2018-11-02] MEDS: PROMETHAZINE HCL INJ 25 MG/1 ML VIAL IV PRN ×4 (06:26→19:03)
[2018-11-02] MEDS: FLUTICASONE NASAL SPRAY 50 MCG/SPRY 120 SPRAY/16 GM NASL SCH ×2 (09:15→21:56)
[2018-11-02] MEDS: AMLODIPINE BESYLATE 5 MG TABLET PO SCH (09:16)
[2018-11-02] MEDS: FAMOTIDINE 20 MG TABLET PO SCH ×2 (09:17→22:06)
[2018-11-02] MEDS: FOLIC ACID 1 MG TABLET PO SCH (09:17)
[2018-11-02] MEDS: METAXALONE 800 MG TABLET PO SCH ×3 (09:17→17:34)
[2018-11-02] MEDS: ENOXAPARIN SODIUM INJ 40 MG/0.4 ML DISP.SYRIN SUBCUT SCH (09:18)
[2018-11-02] MEDS: NORMAL SALINE 10 ML SDV (SCHEDULED) IV SCH ×2 (09:20→21:58)
[2018-11-02] MEDS: HYDROXYUREA 500 MG CAPSULE PO SCH (09:21)
[2018-11-02] MEDS ORDERED: NA PHOS,M-B/NA PHOS,DI-BA (ADULT) 133 ML ENEMA PR ONE (10:30)
[2018-11-02] MEDS: NORMAL SALINE 1000 ML 1,000 ML IV PRN ×2 (10:46→19:02)
--- NOTE | 2018-11-02 16:55 | PDOC PROGRESS REPORT ---
Subjective Progress Note for:: 11/02/18 Subjective:: The patient was seen on morning rounds. The patient is now utilizing supplemental oxygen via nasal cannula. She has K pad and IV fluids running. She reports slight improvement in pain today. She denies fever, chills, chest pain, palpitations, dyspnea, abdominal pain. Fortunately, the patient's CTA of the chest was benign. She has no other questions or concerns at this time. No concerns per nursing. Reason For Visit: SICKLE CELL CRISIS Physical Exam Vital Signs: Temp Pulse Resp BP Pulse Ox 98.4 F 111 H 16 120/77 90 L 11/02/18 14:00 11/02/18 14:00 11/02/18 14:00 11/02/18 14:00 11/02/18 10:00 Intake & Output 11/01/18 11/02/18 11/03/18 06:59 06:59 06:59 Intake Total 2000 1820 500 Output Total 1650 200 Balance 350 1820 300 Weight 70.8 kg 70.8 kg General appearance: PRESENT: no acute distress, cooperative, well-developed, well-nourished Head exam: PRESENT: atraumatic, normocephalic Eye exam: PRESENT: conjunctiva pink, EOMI, PERRLA. ABSENT: scleral icterus Ear exam: PRESENT: normal external ear exam Mouth exam: PRESENT: moist, tongue midline Neck exam: ABSENT: carotid bruit, JVD, lymphadenopathy, thyromegaly Respiratory exam: PRESENT: clear to auscultation william, symmetrical, unlabored. ABSENT: rales, rhonchi, wheezes Cardiovascular exam: PRESENT: RRR, tachycardia. ABSENT: diastolic murmur, rubs, systolic murmur Pulses: PRESENT: normal dorsalis pedis pul Vascular exam: PRESENT: normal capillary refill GI/Abdominal exam: PRESENT: normal bowel sounds, soft. ABSENT: distended, guarding, mass, organolmegaly, rebound, tenderness Rectal exam: PRESENT: deferred Extremities exam: PRESENT: full ROM. ABSENT: calf tenderness, clubbing, pedal edema Neurological exam: PRESENT: alert, awake, oriented to person, oriented to place, oriented to time, oriented to situation, CN II-XII grossly intact. ABSENT: motor sensory deficit Psychiatric exam: PRESENT: appropriate affect, normal mood. ABSENT: homicidal ideation, suicidal ideation Skin exam: PRESENT: dry, intact, warm. ABSENT: cyanosis, rash Results Laboratory Results: 11/02/18 05:05 10/31/18 06:20 11/01/18 11/02/18 11/02/18 08:28 00:10 05:05 WBC 7.9 6.2 RBC 2.71 L 2.60 L Hgb 8.4 L 8.0 L Hct 22.8 L 21.8 L MCV 84 84 MCH 31.0 30.8 MCHC 37.0 H 36.7 H RDW 22.1 H 23.6 H Plt Count 211 202 Seg Neutrophils % 52.8 52.6 Lymphocytes % 35.4 36.5 Monocytes % 7.6 8.1 Eosinophils % 2.8 2.0 Basophils % 1.4 0.8 Absolute Neutrophils 4.2 3.3 Absolute Lymphocytes 2.8 2.3 Absolute Monocytes 0.6 0.5 Absolute Eosinophils 0.2 0.1 Absolute Basophils 0.1 0.1 Blood Type O POSITIVE Antibody Screen NEGATIVE Impressions: Chest X-Ray 10/28/18 17:46 IMPRESSION: NO ACUTE RADIOGRAPHIC FINDING IN THE CHEST. Guidance Fluoroscopy 10/29/18 00:00 IMPRESSION: SUCCESSFUL PLACEMENT OF A 5 FR DUAL LUMEN 41 CM PICC IN THE LEFT BASILIC VEIN. ATTEMPT AT RIGHT ARM PICC PLACEMENT WAS UNSUCCESSFUL. VENOUS STRUCTURES ARE SMALL IN THE RIGHT UPPER ARM. Interventional Vascular Procedure 10/29/18 00:00 IMPRESSION: SUCCESSFUL PLACEMENT OF A 5 FR DUAL LUMEN 41 CM PICC IN THE LEFT BASILIC VEIN. ATTEMPT AT RIGHT ARM PICC PLACEMENT WAS UNSUCCESSFUL. VENOUS STRUCTURES ARE SMALL IN THE RIGHT UPPER ARM. PICC Line Insertion 10/29/18 00:00 IMPRESSION: SUCCESSFUL PLACEMENT OF A 5 FR DUAL LUMEN 41 CM PICC IN THE LEFT BASILIC VEIN. ATTEMPT AT RIGHT ARM PICC PLACEMENT WAS UNSUCCESSFUL. VENOUS STRUCTURES ARE SMALL IN THE RIGHT UPPER ARM. Chest CT 10/31/18 00:00 IMPRESSION: STABLE MILD SCARRING IN THE LUNG BASES. NO SIGNIFICANT FINDING ON NON-CONTRASTED CHEST CT. Assessment and Plan - Diagnosis (1) Sickle cell anemia with pain Is this a current diagnosis for this admission?: Yes Plan: History of sickle cell anemia came in with severe pain. Hgb 10.7 -> 6.9-> 8.4-> 8.0 Retic count elevated to 4.43 on admission; decreased to 1.49 yesterday. Patient is clearly and worsened discomfort. Now s/p 1 unit PRBC She is admitted to the medical floor. Providing generous IV fluids. Oxygen as needed for comfort; maintain oxygen saturations greater than 92%. Hematology is consulted; pain management per their expertise. Continue home dose hydroxyurea. Benadryl and Phenergan as needed. Monitor daily CBC; transfuse for hemoglobin less than 8. 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 It appears that her baseline is in the mid-9.0s. s/p 1 unit PRBC Hematology is consulted; recommends transfusing for hemoglobin less than 8. Continue multivitamin and folic acid supplementation. B12 IM x1 (3) Constipation Qualifiers: Constipation type: drug induced constipation Qualified Code(s): K59.03 - Drug induced constipation Is this a current diagnosis for this admission?: Yes Plan: History of chronic constipation most likely secondary to opioid use. Senokot and MiraLAX as needed. Fleets enema x1 per patient request (4) Hypertension Qualifiers: Hypertension type: essential hypertension Qualified Code(s): I10 - Essential (primary) hypertension Is this a current diagnosis for this admission?: Yes Plan: Patient reports history of hypertension; normotensive today. Continue home dose amlodipine. Cardiac diet. (5) Major depression Qualifiers: Major depression recurrence: recurrent Major depression episode severity: moderate Is this a current diagnosis for this admission?: No Plan: History of depression. Amitriptyline dosing increased yesterday (6) Migraine headache Is this a current diagnosis for this admission?: No Plan: History of migraine headaches. Home dose Fioricet will be available while admitted. (7) Nausea and vomiting Qualifiers: Vomiting type: unspecified Vomiting Intractability: non-intractable Qualified Code(s): R11.2 - Nausea with vomiting, unspecified Is this a current diagnosis for this admission?: Yes Plan: Continued nausea but without emesis today. Likely secondary to pain and opiate medications. Antiemetics as needed. Continue IV fluids. - Time Time Spent with patient: 15-24 minutes Medications reviewed and adjusted accordingly: Yes Anticipated discharge: Home Within: within 72 hours
[2018-11-02] MEDS: AMITRIPTYLINE HCL 50 MG TABLET PO SCH (21:56)
[2018-11-02] MEDS: CETIRIZINE 10 MG TABLET PO SCH (21:58)
[2018-11-03] MEDS: HYDROMORPHONE HCL INJ/PF 2 MG/ML AMPULE IV PRN ×9 (00:03→21:14)
[2018-11-03] MEDS: DIPHENHYDRAMINE HCL 50 MG/ML VIAL IV PRN ×3 (03:11→19:00)
[2018-11-03] MEDS: PROMETHAZINE HCL INJ 25 MG/1 ML VIAL IV PRN ×4 (03:11→19:00)
[2018-11-03] MEDS: NORMAL SALINE 1000 ML 1,000 ML IV PRN (03:17)
--- NOTE | 2018-11-03 08:07 | PDOC PROGRESS REPORT ---
Subjective Progress Note for:: 11/03/18 Subjective:: Still having pain but it is improved. She will probably need another 24 to 48 hours inpatient stay. Reason For Visit: SICKLE CELL CRISIS Physical Exam Vital Signs: Temp Pulse Resp BP Pulse Ox 98.5 F 98 16 143/71 H 95 11/02/18 23:57 11/02/18 23:57 11/02/18 23:57 11/02/18 23:57 11/02/18 23:57 Intake & Output 11/02/18 11/03/18 11/04/18 06:59 06:59 06:59 Intake Total 1820 3748 Output Total 1100 Balance 1820 2648 Weight 70.8 kg 70.8 kg General appearance: PRESENT: no acute distress, well-developed, well-nourished Head exam: PRESENT: atraumatic, normocephalic Eye exam: PRESENT: conjunctiva pink, EOMI, PERRLA. ABSENT: scleral icterus Ear exam: PRESENT: normal external ear exam Mouth exam: PRESENT: moist, tongue midline Neck exam: ABSENT: carotid bruit, JVD, lymphadenopathy, thyromegaly Respiratory exam: PRESENT: clear to auscultation william. ABSENT: rales, rhonchi, wheezes Cardiovascular exam: PRESENT: RRR. ABSENT: diastolic murmur, rubs, systolic murmur Pulses: PRESENT: normal dorsalis pedis pul Vascular exam: PRESENT: normal capillary refill GI/Abdominal exam: PRESENT: normal bowel sounds, soft. ABSENT: distended, guarding, mass, organolmegaly, rebound, tenderness Rectal exam: PRESENT: deferred Extremities exam: PRESENT: full ROM. ABSENT: calf tenderness, clubbing, pedal edema Neurological exam: PRESENT: alert, awake, oriented to person, oriented to place, oriented to time, oriented to situation, CN II-XII grossly intact. ABSENT: motor sensory deficit Psychiatric exam: PRESENT: appropriate affect, normal mood. ABSENT: homicidal ideation, suicidal ideation Skin exam: PRESENT: dry, intact, warm. ABSENT: cyanosis, rash Results Laboratory Results: 11/02/18 05:05 10/31/18 06:20 10/28/18 22:25 Blood Blood Culture - Final NO GROWTH IN 5 DAYS 10/28/18 18:50 Blood Blood Culture - Final NO GROWTH IN 5 DAYS Impressions: Chest X-Ray 10/28/18 17:46 IMPRESSION: NO ACUTE RADIOGRAPHIC FINDING IN THE CHEST. Guidance Fluoroscopy 10/29/18 00:00 IMPRESSION: SUCCESSFUL PLACEMENT OF A 5 FR DUAL LUMEN 41 CM PICC IN THE LEFT BASILIC VEIN. ATTEMPT AT RIGHT ARM PICC PLACEMENT WAS UNSUCCESSFUL. VENOUS STRUCTURES ARE SMALL IN THE RIGHT UPPER ARM. Interventional Vascular Procedure 10/29/18 00:00 IMPRESSION: SUCCESSFUL PLACEMENT OF A 5 FR DUAL LUMEN 41 CM PICC IN THE LEFT BASILIC VEIN. ATTEMPT AT RIGHT ARM PICC PLACEMENT WAS UNSUCCESSFUL. VENOUS STRUCTURES ARE SMALL IN THE RIGHT UPPER ARM. PICC Line Insertion 10/29/18 00:00 IMPRESSION: SUCCESSFUL PLACEMENT OF A 5 FR DUAL LUMEN 41 CM PICC IN THE LEFT BASILIC VEIN. ATTEMPT AT RIGHT ARM PICC PLACEMENT WAS UNSUCCESSFUL. VENOUS STRUCTURES ARE SMALL IN THE RIGHT UPPER ARM. Chest CT 10/31/18 00:00 IMPRESSION: STABLE MILD SCARRING IN THE LUNG BASES. NO SIGNIFICANT FINDING ON NON-CONTRASTED CHEST CT. Assessment & Plan - Diagnosis (1) Sickle cell anemia with pain Is this a current diagnosis for this admission?: Yes Plan: Improving, continue with current therapy, will increase her Benadryl as she is having severe excoriations of the skin. 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 Hemoglobin improved appropriately and is down to 8 but we will watch. Probable transfusion once he gets into the low sevens or under 7.
[2018-11-03] MEDS: FAMOTIDINE 20 MG TABLET PO SCH ×2 (10:50→21:12)
[2018-11-03] MEDS: AMLODIPINE BESYLATE 5 MG TABLET PO SCH (10:50)
[2018-11-03] MEDS: METAXALONE 800 MG TABLET PO SCH ×3 (10:50→17:17)
[2018-11-03] MEDS: FOLIC ACID 1 MG TABLET PO SCH (10:50)
[2018-11-03] MEDS: HYDROXYUREA 500 MG CAPSULE PO SCH (10:51)
[2018-11-03] MEDS: NORMAL SALINE 10 ML SDV (SCHEDULED) IV SCH ×2 (10:52→21:13)
[2018-11-03] MEDS: ENOXAPARIN SODIUM INJ 40 MG/0.4 ML DISP.SYRIN SUBCUT SCH (10:52)
[2018-11-03] MEDS: FLUTICASONE NASAL SPRAY 50 MCG/SPRY 120 SPRAY/16 GM NASL SCH ×2 (10:54→21:13)
[2018-11-03 13:44] LABS: HEMATOCRIT 21.2 % (36.0-47.0); MEAN CORPUSCULAR HEMOGLOBIN 30.5 pg (27.0-33.4); MEAN CORPUSCULAR HGB CONC 35.9 g/dL (32.0-36.0); MEAN CORPUSCULAR VOLUME 85 fl (80-97); PLATELET COUNT 217 10^3/uL (150-450); RED CELL DISTRIBUTION WIDTH 23.2 % (11.5-14.0); WHITE BLOOD COUNT 6.3 10^3/uL (4.0-10.5)
[2018-11-03 14:06] LABS: ALANINE AMINOTRANSFERASE 39 U/L (9-52); ALBUMIN 3.5 g/dL (3.5-5.0); ALKALINE PHOSPHATASE 44 U/L (38-126); ANION GAP 7 (5-19); ASPARTATE AMINO TRANSFERASE 59 U/L (14-36); BILIRUBIN,TOTAL 1.4 mg/dL (0.2-1.3); CALCIUM 8.4 mg/dL (8.4-10.2); CARBON DIOXIDE 29 mmol/L (22-30); CHLORIDE 105 mmol/L (98-107); GLUCOSE 100 mg/dL (75-110); POTASSIUM 3.3 mmol/L (3.6-5.0); SODIUM 141.4 mmol/L (137-145); TOTAL PROTEIN 6.2 g/dL (6.3-8.2)
[2018-11-03 14:08] LABS: BLOOD UREA NITROGEN < 2 mg/dL (7-20)
[2018-11-03 14:10] LABS: ABSOLUTE LYMPHOCYTES# (MANUAL) 3.8 10^3/uL (0.5-4.7); ABSOLUTE MONOCYTES # (MANUAL) 0.3 10^3/uL (0.1-1.4); BASOPHILS % (MANUAL) 0 % (0-2); EOSINOPHILS % (MANUAL) 2 % (0-6); LYMPHOCYTES % (MANUAL) 61 % (13-45); MONOCYTES % (MANUAL) 5 % (3-13); NUCLEATED RED BLOOD CELLS 3 /100 WBC (0); SEGMENTED NEUTROPHILS % (MAN) 32 % (42-78); TOTAL CELLS COUNTED 100
[2018-11-03 14:13] LABS: POLYCHROMASIA 1+
[2018-11-03 14:14] LABS: ANISOCYTOSIS 3+; BURR CELLS SLIGHT; HOWELL-JOLLY BODIES PRESENT; OVALOCYTES SLIGHT; PAPPENHEIMER BODIES PRESENT; PLATELET COMMENT ADEQUATE; POIKILOCYTOSIS 2+; SCHISTOCYTES SLIGHT; SICKLE RED CELLS 2+; TARGET CELLS 1+
[2018-11-03 14:15] LABS: HEMOGLOBIN 7.6 g/dL (12.0-15.5)
--- NOTE | 2018-11-03 16:23 | PDOC PROGRESS REPORT ---
Subjective Progress Note for:: 11/03/18 Subjective:: The patient was seen on morning rounds. The patient is now utilizing supplemental oxygen via nasal cannula. She has K pad and IV fluids running. She reports continued improvement in pain today; no longer with facial pain. She appears more comfortable as well. She denies fever, chills, chest pain, palpitations, dyspnea, abdominal pain. Fortunately, the patient's CTA of the chest was benign. She has no other questions or concerns at this time. No concerns per nursing. Reason For Visit: SICKLE CELL CRISIS Physical Exam Vital Signs: Temp Pulse Resp BP Pulse Ox 98.5 F 98 16 135/61 H 95 11/03/18 13:38 11/03/18 13:38 11/03/18 13:38 11/03/18 13:38 11/03/18 13:38 Intake & Output 11/02/18 11/03/18 11/04/18 06:59 06:59 06:59 Intake Total 1820 3748 Output Total 1100 Balance 1820 2648 Weight 70.8 kg 70.8 kg General appearance: PRESENT: no acute distress, well-developed, well-nourished Head exam: PRESENT: atraumatic, normocephalic Eye exam: PRESENT: conjunctiva pink, EOMI, PERRLA. ABSENT: scleral icterus Mouth exam: PRESENT: moist, tongue midline Neck exam: ABSENT: carotid bruit, JVD, lymphadenopathy, thyromegaly Respiratory exam: PRESENT: clear to auscultation william, symmetrical, unlabored. ABSENT: rales, rhonchi, wheezes Cardiovascular exam: PRESENT: RRR. ABSENT: diastolic murmur, rubs, systolic murmur Pulses: PRESENT: normal dorsalis pedis pul Vascular exam: PRESENT: normal capillary refill GI/Abdominal exam: PRESENT: normal bowel sounds, soft. ABSENT: distended, guarding, mass, organolmegaly, rebound, tenderness Rectal exam: PRESENT: deferred Extremities exam: PRESENT: full ROM. ABSENT: calf tenderness, clubbing, pedal edema Neurological exam: PRESENT: alert, awake, oriented to person, oriented to place, oriented to time, oriented to situation, CN II-XII grossly intact. ABSENT: motor sensory deficit Psychiatric exam: PRESENT: appropriate affect, normal mood. ABSENT: homicidal ideation, suicidal ideation Skin exam: PRESENT: dry, intact, warm. ABSENT: cyanosis, rash Results Laboratory Results: 11/03/18 13:35 11/03/18 13:35 11/03/18 11/03/18 13:35 13:35 WBC 6.3 RBC 2.50 L Hgb 7.6 L Hct 21.2 L MCV 85 MCH 30.5 MCHC 35.9 RDW 23.2 H Plt Count 217 Seg Neutrophils % Not Reportable Lymphocytes % Not Reportable Monocytes % Not Reportable Eosinophils % Not Reportable Basophils % Not Reportable Absolute Neutrophils Not Reportable Absolute Lymphocytes Not Reportable Absolute Monocytes Not Reportable Absolute Eosinophils Not Reportable Absolute Basophils Not Reportable Sodium 141.4 Potassium 3.3 L Chloride 105 Carbon Dioxide 29 Anion Gap 7 BUN < 2 L Creatinine 0.43 L Est GFR ( Amer) > 60 Est GFR (Non-Af Amer) > 60 Glucose 100 Calcium 8.4 Total Bilirubin 1.4 H AST 59 H ALT 39 Alkaline Phosphatase 44 Total Protein 6.2 L Albumin 3.5 10/28/18 22:25 Blood Blood Culture - Final NO GROWTH IN 5 DAYS 10/28/18 18:50 Blood Blood Culture - Final NO GROWTH IN 5 DAYS Impressions: Chest X-Ray 10/28/18 17:46 IMPRESSION: NO ACUTE RADIOGRAPHIC FINDING IN THE CHEST. Guidance Fluoroscopy 10/29/18 00:00 IMPRESSION: SUCCESSFUL PLACEMENT OF A 5 FR DUAL LUMEN 41 CM PICC IN THE LEFT BASILIC VEIN. ATTEMPT AT RIGHT ARM PICC PLACEMENT WAS UNSUCCESSFUL. VENOUS STRUCTURES ARE SMALL IN THE RIGHT UPPER ARM. Interventional Vascular Procedure 10/29/18 00:00 IMPRESSION: SUCCESSFUL PLACEMENT OF A 5 FR DUAL LUMEN 41 CM PICC IN THE LEFT BASILIC VEIN. ATTEMPT AT RIGHT ARM PICC PLACEMENT WAS UNSUCCESSFUL. VENOUS STRUCTURES ARE SMALL IN THE RIGHT UPPER ARM. PICC Line Insertion 10/29/18 00:00 IMPRESSION: SUCCESSFUL PLACEMENT OF A 5 FR DUAL LUMEN 41 CM PICC IN THE LEFT BASILIC VEIN. ATTEMPT AT RIGHT ARM PICC PLACEMENT WAS UNSUCCESSFUL. VENOUS STRUCTURES ARE SMALL IN THE RIGHT UPPER ARM. Chest CT 10/31/18 00:00 IMPRESSION: STABLE MILD SCARRING IN THE LUNG BASES. NO SIGNIFICANT FINDING ON NON-CONTRASTED CHEST CT. Assessment and Plan - Diagnosis (1) Sickle cell anemia with pain Is this a current diagnosis for this admission?: Yes Plan: History of sickle cell anemia came in with severe pain. Hgb 10.7 -> 6.9-> 8.4-> 8.0-> 7.6 Now s/p 1 unit PRBC She is admitted to the medical floor. Providing generous IV fluids. Oxygen as needed for comfort; maintain oxygen saturations greater than 92%. Hematology is consulted; pain management per their expertise. Continue home dose hydroxyurea. Benadryl and Phenergan as needed. Monitor daily CBC; transfuse for hemoglobin less than 8. 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 It appears that her baseline is in the mid-9.0s. s/p 1 unit PRBC Hematology is consulted; recommends transfusing for hemoglobin less than 8. Continue multivitamin and folic acid supplementation. B12 IM x1 (3) Constipation Qualifiers: Constipation type: drug induced constipation Qualified Code(s): K59.03 - Drug induced constipation Is this a current diagnosis for this admission?: Yes Plan: History of chronic constipation most likely secondary to opioid use. Senokot and MiraLAX as needed. Fleets enema daily prn per patient request. (4) Hypertension Qualifiers: Hypertension type: essential hypertension Qualified Code(s): I10 - Essential (primary) hypertension Is this a current diagnosis for this admission?: Yes Plan: Patient reports history of hypertension; normotensive today. Continue home dose amlodipine. Cardiac diet. (5) Major depression Qualifiers: Major depression recurrence: recurrent Major depression episode severity: moderate Is this a current diagnosis for this admission?: No Plan: History of depression. Continue Amitriptyline. (6) Migraine headache Is this a current diagnosis for this admission?: No Plan: History of migraine headaches. Home dose Fioricet will be available while admitted. (7) Nausea and vomiting Qualifiers: Vomiting type: unspecified Vomiting Intractability: non-intractable Qualified Code(s): R11.2 - Nausea with vomiting, unspecified Is this a current diagnosis for this admission?: Yes Plan: Resolved. Likely secondary to pain and opiate medications. Antiemetics as needed. Continue IV fluids. - Time Time Spent with patient: Less than 15 minutes Medications reviewed and adjusted accordingly: Yes Anticipated discharge: Home Within: within 48 hours
[2018-11-03] MEDS: NA PHOS,M-B/NA PHOS,DI-BA (ADULT) 133 ML ENEMA PR PRN (17:17)
[2018-11-03] MEDS: CETIRIZINE 10 MG TABLET PO SCH (21:12)
[2018-11-03] MEDS: AMITRIPTYLINE HCL 50 MG TABLET PO SCH (21:12)
[2018-11-04] MEDS: HYDROMORPHONE HCL INJ/PF 2 MG/ML AMPULE IV PRN ×10 (00:01→22:03)
[2018-11-04] MEDS: NORMAL SALINE 1000 ML 1,000 ML IV PRN ×4 (00:07→19:48)
[2018-11-04] MEDS: PROMETHAZINE HCL INJ 25 MG/1 ML VIAL IV PRN ×3 (03:47→17:44)
[2018-11-04] MEDS: DIPHENHYDRAMINE HCL 50 MG/ML VIAL IV PRN ×3 (03:48→17:43)
[2018-11-04 07:46] LABS: MEAN CORPUSCULAR HEMOGLOBIN 30.9 pg (27.0-33.4); MEAN CORPUSCULAR HGB CONC 35.7 g/dL (32.0-36.0); MEAN CORPUSCULAR VOLUME 87 fl (80-97); PLATELET COUNT 219 10^3/uL (150-450); RED BLOOD COUNT 2.43 10^6/uL (3.72-5.28); RED CELL DISTRIBUTION WIDTH 23.5 % (11.5-14.0); WHITE BLOOD COUNT 6.7 10^3/uL (4.0-10.5)
[2018-11-04 08:34] LABS: HEMOGLOBIN 7.5 g/dL (12.0-15.5)
[2018-11-04] MEDS ORDERED: ERGOCALCIFEROL (VITAMIN D2) 50000 UNIT (1.25 MG) CAPSULE PO SCH (10:00)
[2018-11-04] MEDS: FOLIC ACID 1 MG TABLET PO SCH (10:38)
[2018-11-04] MEDS: AMLODIPINE BESYLATE 5 MG TABLET PO SCH (10:38)
[2018-11-04] MEDS: FAMOTIDINE 20 MG TABLET PO SCH ×2 (10:39→21:59)
[2018-11-04] MEDS: HYDROXYUREA 500 MG CAPSULE PO SCH (10:40)
[2018-11-04] MEDS: ENOXAPARIN SODIUM INJ 40 MG/0.4 ML DISP.SYRIN SUBCUT SCH (10:40)
[2018-11-04] MEDS: NORMAL SALINE 10 ML SDV (SCHEDULED) IV SCH ×2 (10:40→21:59)
[2018-11-04] MEDS: FLUTICASONE NASAL SPRAY 50 MCG/SPRY 120 SPRAY/16 GM NASL SCH ×2 (10:47→21:59)
[2018-11-04] MEDS: METAXALONE 800 MG TABLET PO SCH ×3 (10:49→17:45)
--- NOTE | 2018-11-04 11:09 | PDOC PROGRESS REPORT ---
Subjective Progress Note for:: 11/04/18 Subjective:: Patient states she was able to walk down the [place] yesterday. Her face is not as painful. She believes these are positive signs. Reason For Visit: SICKLE CELL CRISIS Physical Exam Vital Signs: Temp Pulse Resp BP Pulse Ox 98.7 F 102 H 20 133/77 H 97 11/04/18 07:29 11/04/18 07:29 11/04/18 07:29 11/04/18 07:29 11/04/18 07:29 Intake & Output 11/03/18 11/04/18 11/05/18 06:59 06:59 06:59 Intake Total 3748 3252 1000 Output Total 1100 1725 Balance 2648 1527 1000 Weight 70.8 kg 72.2 kg General appearance: PRESENT: well-developed, well-nourished Head exam: PRESENT: normocephalic Respiratory exam: PRESENT: unlabored Extremities exam: ABSENT: pedal edema Musculoskeletal exam: PRESENT: ambulatory Neurological exam: PRESENT: alert, awake Psychiatric exam: PRESENT: appropriate affect Skin exam: PRESENT: normal color Results Laboratory Results: 11/04/18 05:55 11/03/18 13:35 11/03/18 11/03/18 11/04/18 13:35 13:35 05:55 WBC 6.3 6.7 RBC 2.50 L 2.43 L Hgb 7.6 L 7.5 L Hct 21.2 L 21.0 L MCV 85 87 MCH 30.5 30.9 MCHC 35.9 35.7 RDW 23.2 H 23.5 H Plt Count 217 219 Seg Neutrophils % Not Reportable Lymphocytes % Not Reportable Monocytes % Not Reportable Eosinophils % Not Reportable Basophils % Not Reportable Absolute Neutrophils Not Reportable Absolute Lymphocytes Not Reportable Absolute Monocytes Not Reportable Absolute Eosinophils Not Reportable Absolute Basophils Not Reportable Sodium 141.4 Potassium 3.3 L Chloride 105 Carbon Dioxide 29 Anion Gap 7 BUN < 2 L Creatinine 0.43 L Est GFR ( Amer) > 60 Est GFR (Non-Af Amer) > 60 Glucose 100 Calcium 8.4 Total Bilirubin 1.4 H AST 59 H ALT 39 Alkaline Phosphatase 44 Total Protein 6.2 L Albumin 3.5 Impressions: Chest X-Ray 10/28/18 17:46 IMPRESSION: NO ACUTE RADIOGRAPHIC FINDING IN THE CHEST. Guidance Fluoroscopy 10/29/18 00:00 IMPRESSION: SUCCESSFUL PLACEMENT OF A 5 FR DUAL LUMEN 41 CM PICC IN THE LEFT BASILIC VEIN. ATTEMPT AT RIGHT ARM PICC PLACEMENT WAS UNSUCCESSFUL. VENOUS STRUCTURES ARE SMALL IN THE RIGHT UPPER ARM. Interventional Vascular Procedure 10/29/18 00:00 IMPRESSION: SUCCESSFUL PLACEMENT OF A 5 FR DUAL LUMEN 41 CM PICC IN THE LEFT BASILIC VEIN. ATTEMPT AT RIGHT ARM PICC PLACEMENT WAS UNSUCCESSFUL. VENOUS STRUCTURES ARE SMALL IN THE RIGHT UPPER ARM. PICC Line Insertion 10/29/18 00:00 IMPRESSION: SUCCESSFUL PLACEMENT OF A 5 FR DUAL LUMEN 41 CM PICC IN THE LEFT BASILIC VEIN. ATTEMPT AT RIGHT ARM PICC PLACEMENT WAS UNSUCCESSFUL. VENOUS STRUCTURES ARE SMALL IN THE RIGHT UPPER ARM. Chest CT 10/31/18 00:00 IMPRESSION: STABLE MILD SCARRING IN THE LUNG BASES. NO SIGNIFICANT FINDING ON NON-CONTRASTED CHEST CT. Assessment & Plan - Diagnosis (1) Sickle cell anemia with pain Is this a current diagnosis for this admission?: Yes Plan: No changes today. Encourage fluids, walking. (2) DVT prophylaxis Is this a current diagnosis for this admission?: Yes
--- NOTE | 2018-11-04 11:35 | PDOC PROGRESS REPORT ---
Subjective Progress Note for:: 11/04/18 Subjective:: 28 y.o. F with a PMH of HTN, migraines, asthma and sickle cell disease is admitted to the hospitalist service for sickle cell crisis. The patient was seen this morning on rounds, she still endorses crisis pain, worse in her back and legs. The patient does note some improvement of her generalized pain, no longer endorsing facial pain. Hgb remains low, 7.5, but no plan for transfusion today. Continue pain regimen per Heme/Onc recommendations. Monitor daily CBC. Reason For Visit: SICKLE CELL CRISIS Physical Exam Vital Signs: Temp Pulse Resp BP Pulse Ox 98.7 F 102 H 20 133/77 H 97 11/04/18 07:29 11/04/18 07:29 11/04/18 07:29 11/04/18 07:29 11/04/18 07:29 Intake & Output 11/03/18 11/04/18 11/05/18 06:59 06:59 06:59 Intake Total 3748 3252 1000 Output Total 1100 1725 Balance 2648 1527 1000 Weight 70.8 kg 72.2 kg General appearance: PRESENT: no acute distress, well-developed, well-nourished Head exam: PRESENT: atraumatic, normocephalic Eye exam: PRESENT: conjunctiva pink, EOMI, PERRLA. ABSENT: scleral icterus Ear exam: PRESENT: normal external ear exam Mouth exam: PRESENT: moist, tongue midline Neck exam: ABSENT: carotid bruit, JVD, lymphadenopathy, thyromegaly Respiratory exam: PRESENT: clear to auscultation william, symmetrical, unlabored. ABSENT: rales, rhonchi, wheezes Cardiovascular exam: PRESENT: RRR. ABSENT: diastolic murmur, rubs, systolic murmur Pulses: PRESENT: normal radial pulses, normal dorsalis pedis pul Vascular exam: PRESENT: normal capillary refill GI/Abdominal exam: PRESENT: normal bowel sounds, soft. ABSENT: distended, guarding, mass, organolmegaly, rebound, tenderness Rectal exam: PRESENT: deferred Extremities exam: PRESENT: full ROM. ABSENT: calf tenderness, clubbing, pedal edema Musculoskeletal exam: PRESENT: full ROM. ABSENT: deformity Neurological exam: PRESENT: alert, awake, oriented to person, oriented to place, oriented to time, oriented to situation Psychiatric exam: PRESENT: appropriate affect, normal mood Skin exam: PRESENT: dry, intact, warm. ABSENT: cyanosis, rash Results Laboratory Results: 11/04/18 05:55 11/03/18 13:35 11/03/18 11/03/18 11/04/18 13:35 13:35 05:55 WBC 6.3 6.7 RBC 2.50 L 2.43 L Hgb 7.6 L 7.5 L Hct 21.2 L 21.0 L MCV 85 87 MCH 30.5 30.9 MCHC 35.9 35.7 RDW 23.2 H 23.5 H Plt Count 217 219 Seg Neutrophils % Not Reportable Lymphocytes % Not Reportable Monocytes % Not Reportable Eosinophils % Not Reportable Basophils % Not Reportable Absolute Neutrophils Not Reportable Absolute Lymphocytes Not Reportable Absolute Monocytes Not Reportable Absolute Eosinophils Not Reportable Absolute Basophils Not Reportable Sodium 141.4 Potassium 3.3 L Chloride 105 Carbon Dioxide 29 Anion Gap 7 BUN < 2 L Creatinine 0.43 L Est GFR ( Amer) > 60 Est GFR (Non-Af Amer) > 60 Glucose 100 Calcium 8.4 Total Bilirubin 1.4 H AST 59 H ALT 39 Alkaline Phosphatase 44 Total Protein 6.2 L Albumin 3.5 Impressions: Chest X-Ray 10/28/18 17:46 IMPRESSION: NO ACUTE RADIOGRAPHIC FINDING IN THE CHEST. Guidance Fluoroscopy 10/29/18 00:00 IMPRESSION: SUCCESSFUL PLACEMENT OF A 5 FR DUAL LUMEN 41 CM PICC IN THE LEFT BASILIC VEIN. ATTEMPT AT RIGHT ARM PICC PLACEMENT WAS UNSUCCESSFUL. VENOUS STRUCTURES ARE SMALL IN THE RIGHT UPPER ARM. Interventional Vascular Procedure 10/29/18 00:00 IMPRESSION: SUCCESSFUL PLACEMENT OF A 5 FR DUAL LUMEN 41 CM PICC IN THE LEFT BASILIC VEIN. ATTEMPT AT RIGHT ARM PICC PLACEMENT WAS UNSUCCESSFUL. VENOUS STRUCTURES ARE SMALL IN THE RIGHT UPPER ARM. PICC Line Insertion 10/29/18 00:00 IMPRESSION: SUCCESSFUL PLACEMENT OF A 5 FR DUAL LUMEN 41 CM PICC IN THE LEFT BASILIC VEIN. ATTEMPT AT RIGHT ARM PICC PLACEMENT WAS UNSUCCESSFUL. VENOUS STRUCTURES ARE SMALL IN THE RIGHT UPPER ARM. Chest CT 10/31/18 00:00 IMPRESSION: STABLE MILD SCARRING IN THE LUNG BASES. NO SIGNIFICANT FINDING ON NON-CONTRASTED CHEST CT. Status: Imported from PACS Assessment and Plan - Diagnosis (1) Sickle cell anemia with pain Is this a current diagnosis for this admission?: Yes Plan: History of sickle cell anemia came in with severe pain. Hgb 10.7 -> 6.9-> 8.4-> 8.0-> 7.5 Now s/p 1 unit PRBC during this hospitalizations Maintenance IV fluids. Oxygen as needed for comfort; maintain oxygen saturations greater than 92%. Hematology is consulted; pain management per their expertise. Continue home dose hydroxyurea. Benadryl and Phenergan as needed. Monitor daily CBC Per Heme/Onc will transfuse for Hgb < 7.5. 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 It appears that her baseline is in the mid-9.0s. s/p 1 unit PRBC this hospitalization Hematology is consulted; recommends transfusing for hemoglobin less than 7.5 Continue multivitamin and folic acid supplementation. B12 IM x1 Daily CBC (3) Constipation Qualifiers: Constipation type: drug induced constipation Qualified Code(s): K59.03 - Drug induced constipation Is this a current diagnosis for this admission?: Yes Plan: History of chronic constipation most likely secondary to opioid use. Daily Miralax and Senna Fleets enema daily PRN (4) Hypertension Qualifiers: Hypertension type: essential hypertension Qualified Code(s): I10 - Essential (primary) hypertension Is this a current diagnosis for this admission?: Yes Plan: Patient reports history of hypertension Has been relatively NORMOtensive (SBP 120-140) Continue home dose amlodipine. Cardiac diet. (5) Migraine headache Is this a current diagnosis for this admission?: No Plan: History of migraine headaches. Home dose Fioricet will be available while admitted. (6) Nausea and vomiting Qualifiers: Vomiting type: unspecified Vomiting Intractability: non-intractable Qualified Code(s): R11.2 - Nausea with vomiting, unspecified Is this a current diagnosis for this admission?: Yes Plan: Resolved. Likely secondary to pain and opiate medications. Antiemetics as needed. Continue IV fluids. (7) Major depression Qualifiers: Major depression recurrence: recurrent Major depression episode severity: moderate Is this a current diagnosis for this admission?: No Plan: History of depression. Continue Amitriptyline. - Time Time Spent with patient: 15-24 minutes Medications reviewed and adjusted accordingly: Yes Anticipated discharge: Home Within: within 24 hours, within 48 hours - Inpatient Certification Based on my medical assessment, after consideration of the patient's comorbidities, presenting symptoms, or acuity I expect that the services needed warrant INPATIENT care.: Yes I certify that my determination is in accordance with my understanding of Medicare's requirements for reasonable and necessary INPATIENT services [42 CFR 412.3e].: Yes Medical Necessity: Need for Pain Control
[2018-11-04] MEDS: SENNOSIDES/DOCUSATE 8.6-50 MG 1 EACH TABLET PO SCH (17:44)
[2018-11-04] MEDS: CETIRIZINE 10 MG TABLET PO SCH (21:59)
[2018-11-04] MEDS: AMITRIPTYLINE HCL 50 MG TABLET PO SCH (21:59)
[2018-11-05] MEDS: DIPHENHYDRAMINE HCL 50 MG/ML VIAL IV PRN ×4 (03:49→23:10)
[2018-11-05] MEDS: HYDROMORPHONE HCL INJ/PF 2 MG/ML AMPULE IV PRN ×10 (03:49→23:11)
[2018-11-05] MEDS: PROMETHAZINE HCL INJ 25 MG/1 ML VIAL IV PRN ×5 (03:50→23:12)
[2018-11-05] MEDS: NORMAL SALINE 1000 ML 1,000 ML IV PRN ×3 (03:54→23:13)
[2018-11-05] MEDS ORDERED: FUROSEMIDE INJ/PF 20 MG/2 ML SDV IV PRN (05:00)
[2018-11-05] MEDS ORDERED: ACETAMINOPHEN 325 MG TABLET PO PRN (05:00)
[2018-11-05] MEDS ORDERED: DIPHENHYDRAMINE HCL 25 MG CAPSULE PO PRN (05:00)
[2018-11-05 06:45] LABS: ABSOLUTE RETICS # 0.166 10^6/uL (0.028-0.122); HEMATOCRIT 21.5 % (36.0-47.0); MEAN CORPUSCULAR HEMOGLOBIN 31.4 pg (27.0-33.4); MEAN CORPUSCULAR HGB CONC 35.6 g/dL (32.0-36.0); MEAN CORPUSCULAR VOLUME 88 fl (80-97); PLATELET COUNT 232 10^3/uL (150-450); RED BLOOD COUNT 2.44 10^6/uL (3.72-5.28); RED CELL DISTRIBUTION WIDTH 24.6 % (11.5-14.0); RETICULOCYTE COUNT (AUTO) 6.83 % (0.66-2.85); WHITE BLOOD COUNT 6.1 10^3/uL (4.0-10.5)
[2018-11-05 06:58] LABS: HEMOGLOBIN 7.7 g/dL (12.0-15.5)
[2018-11-05 07:06] LABS: ALANINE AMINOTRANSFERASE 26 U/L (9-52); ALBUMIN 3.3 g/dL (3.5-5.0); ALKALINE PHOSPHATASE 45 U/L (38-126); ANION GAP 9 (5-19); ASPARTATE AMINO TRANSFERASE 34 U/L (14-36); BILIRUBIN,DIRECT 0.2 mg/dL (0.0-0.4); BILIRUBIN,TOTAL 1.4 mg/dL (0.2-1.3); CALCIUM 8.1 mg/dL (8.4-10.2); CARBON DIOXIDE 29 mmol/L (22-30); CHLORIDE 105 mmol/L (98-107); GLUCOSE 136 mg/dL (75-110); POTASSIUM 3.1 mmol/L (3.6-5.0); SODIUM 142.5 mmol/L (137-145); TOTAL PROTEIN 5.7 g/dL (6.3-8.2)
[2018-11-05 07:10] LABS: BLOOD UREA NITROGEN < 2 mg/dL (7-20)
[2018-11-05] MEDS ORDERED: DIPHENHYDRAMINE HCL 50 MG/ML VIAL IV PRN (08:30)
--- NOTE | 2018-11-05 08:52 | PDOC PROGRESS REPORT ---
Subjective Progress Note for:: 11/05/18 Subjective:: Pt doing better, plan to decrease dilaudid, hb still in 7 range and pt still w/ crisis on going so will give another unit blood today Reason For Visit: SICKLE CELL CRISIS Physical Exam Vital Signs: Temp Pulse Resp BP Pulse Ox 98.1 F 76 16 134/66 H 98 11/04/18 23:55 11/04/18 23:55 11/04/18 23:55 11/04/18 23:55 11/04/18 23:55 Intake & Output 11/04/18 11/05/18 11/06/18 06:59 06:59 06:59 Intake Total 3252 5694 Output Total 1725 4000 Balance 1527 1694 Weight 72.2 kg 73.8 kg General appearance: PRESENT: no acute distress, well-developed, well-nourished Head exam: PRESENT: atraumatic, normocephalic Eye exam: PRESENT: conjunctiva pink, EOMI, PERRLA. ABSENT: scleral icterus Ear exam: PRESENT: normal external ear exam Mouth exam: PRESENT: moist, tongue midline Neck exam: ABSENT: carotid bruit, JVD, lymphadenopathy, thyromegaly Respiratory exam: PRESENT: clear to auscultation william. ABSENT: rales, rhonchi, wheezes Cardiovascular exam: PRESENT: RRR. ABSENT: diastolic murmur, rubs, systolic murmur Pulses: PRESENT: normal dorsalis pedis pul Vascular exam: PRESENT: normal capillary refill GI/Abdominal exam: PRESENT: normal bowel sounds, soft. ABSENT: distended, guarding, mass, organolmegaly, rebound, tenderness Rectal exam: PRESENT: deferred Extremities exam: PRESENT: full ROM. ABSENT: calf tenderness, clubbing, pedal edema Neurological exam: PRESENT: alert, awake, oriented to person, oriented to place, oriented to time, oriented to situation, CN II-XII grossly intact. ABSENT: motor sensory deficit Psychiatric exam: PRESENT: appropriate affect, normal mood. ABSENT: homicidal ideation, suicidal ideation Skin exam: PRESENT: dry, intact, warm. ABSENT: cyanosis, rash Results Laboratory Results: 11/05/18 05:50 11/05/18 05:50 11/05/18 11/05/18 05:50 05:50 WBC 6.1 RBC 2.44 L Hgb 7.7 L Hct 21.5 L MCV 88 MCH 31.4 MCHC 35.6 RDW 24.6 H Plt Count 232 Retic Count (auto) 6.83 H Absolute Retic 0.166 H Sodium 142.5 Potassium 3.1 L Chloride 105 Carbon Dioxide 29 Anion Gap 9 BUN < 2 L Creatinine 0.42 L Est GFR ( Amer) > 60 Est GFR (Non-Af Amer) > 60 Glucose 136 H Calcium 8.1 L Total Bilirubin 1.4 H AST 34 ALT 26 Alkaline Phosphatase 45 Total Protein 5.7 L Albumin 3.3 L Impressions: Chest X-Ray 10/28/18 17:46 IMPRESSION: NO ACUTE RADIOGRAPHIC FINDING IN THE CHEST. Guidance Fluoroscopy 10/29/18 00:00 IMPRESSION: SUCCESSFUL PLACEMENT OF A 5 FR DUAL LUMEN 41 CM PICC IN THE LEFT BASILIC VEIN. ATTEMPT AT RIGHT ARM PICC PLACEMENT WAS UNSUCCESSFUL. VENOUS STRUCTURES ARE SMALL IN THE RIGHT UPPER ARM. Interventional Vascular Procedure 10/29/18 00:00 IMPRESSION: SUCCESSFUL PLACEMENT OF A 5 FR DUAL LUMEN 41 CM PICC IN THE LEFT BASILIC VEIN. ATTEMPT AT RIGHT ARM PICC PLACEMENT WAS UNSUCCESSFUL. VENOUS STRUCTURES ARE SMALL IN THE RIGHT UPPER ARM. PICC Line Insertion 10/29/18 00:00 IMPRESSION: SUCCESSFUL PLACEMENT OF A 5 FR DUAL LUMEN 41 CM PICC IN THE LEFT BASILIC VEIN. ATTEMPT AT RIGHT ARM PICC PLACEMENT WAS UNSUCCESSFUL. VENOUS STRUCTURES ARE SMALL IN THE RIGHT UPPER ARM. Chest CT 10/31/18 00:00 IMPRESSION: STABLE MILD SCARRING IN THE LUNG BASES. NO SIGNIFICANT FINDING ON NON-CONTRASTED CHEST CT. 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
[2018-11-05] MEDS ORDERED: MAGNESIUM SULFATE/D5W 1 GM/100 ML RTUPB IV ONE (09:30)
[2018-11-05] MEDS: FOLIC ACID 1 MG TABLET PO SCH (09:45)
[2018-11-05] MEDS: SENNOSIDES/DOCUSATE 8.6-50 MG 1 EACH TABLET PO SCH ×2 (09:45→17:44)
[2018-11-05] MEDS: FAMOTIDINE 20 MG TABLET PO SCH ×2 (09:46→21:04)
[2018-11-05] MEDS: AMLODIPINE BESYLATE 5 MG TABLET PO SCH (09:46)
[2018-11-05] MEDS: POLYETHYLENE GLYCOL 3350 POWDER 17 GM/1 PACKET PO SCH (09:47)
[2018-11-05] MEDS: METAXALONE 800 MG TABLET PO SCH ×3 (09:47→17:44)
[2018-11-05] MEDS: HYDROXYUREA 500 MG CAPSULE PO SCH (09:49)
[2018-11-05] MEDS: FLUTICASONE NASAL SPRAY 50 MCG/SPRY 120 SPRAY/16 GM NASL SCH ×2 (09:49→21:01)
[2018-11-05] MEDS: NORMAL SALINE 10 ML SDV (SCHEDULED) IV SCH ×2 (09:50→21:05)
[2018-11-05] MEDS: ENOXAPARIN SODIUM INJ 40 MG/0.4 ML DISP.SYRIN SUBCUT SCH (10:00)
[2018-11-05] MEDS: POTASSI CL 20 MEQ/50 ML RIDER 20 MEQ/50 ML RTUPB IV SCH ×2 (12:13→14:35)
[2018-11-05] MEDS: AMITRIPTYLINE HCL 50 MG TABLET PO SCH (21:04)
[2018-11-05] MEDS: CETIRIZINE 10 MG TABLET PO SCH (21:04)
[2018-11-05 21:08] LABS: HEMATOCRIT 25.9 % (36.0-47.0); HEMOGLOBIN 9.1 g/dL (12.0-15.5); MEAN CORPUSCULAR HEMOGLOBIN 30.7 pg (27.0-33.4); MEAN CORPUSCULAR HGB CONC 35.2 g/dL (32.0-36.0); MEAN CORPUSCULAR VOLUME 87 fl (80-97); PLATELET COUNT 235 10^3/uL (150-450); RED BLOOD COUNT 2.97 10^6/uL (3.72-5.28); RED CELL DISTRIBUTION WIDTH 22.8 % (11.5-14.0); WHITE BLOOD COUNT 5.7 10^3/uL (4.0-10.5)
--- NOTE | 2018-11-05 21:29 | PDOC PROGRESS REPORT ---
Subjective Progress Note for:: 11/05/18 Subjective:: 28 y.o. F with a PMH of HTN, migraines, asthma and sickle cell disease is admitted to the hospitalist service for sickle cell crisis. The patient was seen this morning on rounds, she still endorses crisis pain, worse in her back and legs. The patient does note some improvement of her generalized pain, no longer endorsing facial pain. Hgb remains low, 7.7. Plan for transfusion today. Patient endorses RUE pain and mild swelling. This is the site of her previous PICC line. Plan for US to evaluate for DVT Continue pain regimen per Heme/Onc recommendations. Monitor daily CBC. Reason For Visit: SICKLE CELL CRISIS Physical Exam Vital Signs: Temp Pulse Resp BP Pulse Ox 97.9 F 84 16 135/62 H 99 11/05/18 18:42 11/05/18 18:42 11/05/18 18:42 11/05/18 18:42 11/05/18 18:42 Intake & Output 11/04/18 11/05/18 11/06/18 06:59 06:59 06:59 Intake Total 3252 5694 2900 Output Total 1725 4000 3000 Balance 1527 1694 -100 Weight 72.2 kg 73.8 kg General appearance: PRESENT: no acute distress, well-developed, well-nourished Head exam: PRESENT: atraumatic, normocephalic Eye exam: PRESENT: conjunctiva pink, EOMI, PERRLA. ABSENT: scleral icterus Ear exam: PRESENT: normal external ear exam Mouth exam: PRESENT: moist, tongue midline Neck exam: ABSENT: carotid bruit, JVD, lymphadenopathy, thyromegaly Respiratory exam: PRESENT: clear to auscultation william. ABSENT: rales, rhonchi, wheezes Cardiovascular exam: PRESENT: RRR. ABSENT: diastolic murmur, rubs, systolic murmur Pulses: PRESENT: normal dorsalis pedis pul Vascular exam: PRESENT: normal capillary refill GI/Abdominal exam: PRESENT: normal bowel sounds, soft. ABSENT: distended, guarding, mass, organolmegaly, rebound, tenderness Rectal exam: PRESENT: deferred Extremities exam: PRESENT: full ROM. ABSENT: calf tenderness, clubbing, pedal edema Neurological exam: PRESENT: alert, awake, oriented to person, oriented to place, oriented to time, oriented to situation, CN II-XII grossly intact. ABSENT: motor sensory deficit Psychiatric exam: PRESENT: appropriate affect, normal mood. ABSENT: homicidal ideation, suicidal ideation Skin exam: PRESENT: dry, intact, warm. ABSENT: cyanosis, rash Results Laboratory Results: 11/05/18 05:50 11/05/18 11/05/18 11/05/18 05:50 05:50 08:19 WBC 6.1 RBC 2.44 L Hgb 7.7 L Hct 21.5 L MCV 88 MCH 31.4 MCHC 35.6 RDW 24.6 H Plt Count 232 Seg Neutrophils % Lymphocytes % Monocytes % Eosinophils % Basophils % Absolute Neutrophils Absolute Lymphocytes Absolute Monocytes Absolute Eosinophils Absolute Basophils Retic Count (auto) 6.83 H Absolute Retic 0.166 H Sodium 142.5 Potassium 3.1 L Chloride 105 Carbon Dioxide 29 Anion Gap 9 BUN < 2 L Creatinine 0.42 L Est GFR ( Amer) > 60 Est GFR (Non-Af Amer) > 60 Glucose 136 H Calcium 8.1 L Total Bilirubin 1.4 H AST 34 ALT 26 Alkaline Phosphatase 45 Total Protein 5.7 L Albumin 3.3 L Blood Type O POSITIVE Antibody Screen NEGATIVE 11/05/18 20:40 WBC RBC Hgb Hct MCV MCH MCHC RDW Plt Count Seg Neutrophils % Not Reportable Lymphocytes % Not Reportable Monocytes % Not Reportable Eosinophils % Not Reportable Basophils % Not Reportable Absolute Neutrophils Not Reportable Absolute Lymphocytes Not Reportable Absolute Monocytes Not Reportable Absolute Eosinophils Not Reportable Absolute Basophils Not Reportable Retic Count (auto) Absolute Retic Sodium Potassium Chloride Carbon Dioxide Anion Gap BUN Creatinine Est GFR ( Amer) Est GFR (Non-Af Amer) Glucose Calcium Total Bilirubin AST ALT Alkaline Phosphatase Total Protein Albumin Blood Type Antibody Screen Impressions: Chest X-Ray 10/28/18 17:46 IMPRESSION: NO ACUTE RADIOGRAPHIC FINDING IN THE CHEST. Guidance Fluoroscopy 10/29/18 00:00 IMPRESSION: SUCCESSFUL PLACEMENT OF A 5 FR DUAL LUMEN 41 CM PICC IN THE LEFT BASILIC VEIN. ATTEMPT AT RIGHT ARM PICC PLACEMENT WAS UNSUCCESSFUL. VENOUS STRUCTURES ARE SMALL IN THE RIGHT UPPER ARM. Interventional Vascular Procedure 10/29/18 00:00 IMPRESSION: SUCCESSFUL PLACEMENT OF A 5 FR DUAL LUMEN 41 CM PICC IN THE LEFT BASILIC VEIN. ATTEMPT AT RIGHT ARM PICC PLACEMENT WAS UNSUCCESSFUL. VENOUS STRUCTURES ARE SMALL IN THE RIGHT UPPER ARM. PICC Line Insertion 10/29/18 00:00 IMPRESSION: SUCCESSFUL PLACEMENT OF A 5 FR DUAL LUMEN 41 CM PICC IN THE LEFT BASILIC VEIN. ATTEMPT AT RIGHT ARM PICC PLACEMENT WAS UNSUCCESSFUL. VENOUS STRUCTURES ARE SMALL IN THE RIGHT UPPER ARM. Chest CT 10/31/18 00:00 IMPRESSION: STABLE MILD SCARRING IN THE LUNG BASES. NO SIGNIFICANT FINDING ON NON-CONTRASTED CHEST CT. Status: Imported from PACS Assessment and Plan - Diagnosis (1) Sickle cell anemia with pain Is this a current diagnosis for this admission?: Yes Plan: History of sickle cell anemia came in with severe pain. Hgb 10.7 -> 6.9-> 8.4-> 8.0-> 7.5-->7.7 Now s/p 1 unit PRBC during this hospitalizations, will receive another unit to day Maintenance IV fluids. Oxygen as needed for comfort; maintain oxygen saturations greater than 92%. Hematology is consulted; pain management per their expertise. Continue home dose hydroxyurea. Benadryl and Phenergan as needed. 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 It appears that her baseline is in the mid-9.0s. s/p 1 unit PRBC this hospitalization Hematology is consulted; recommends transfusing for hemoglobin less than 7.5 Continue multivitamin and folic acid supplementation. B12 IM x1 Daily CBC (3) Constipation Qualifiers: Constipation type: drug induced constipation Qualified Code(s): K59.03 - Drug induced constipation Is this a current diagnosis for this admission?: Yes Plan: History of chronic constipation most likely secondary to opioid use. Daily Miralax and Senna Fleets enema daily PRN (4) Hypertension Qualifiers: Hypertension type: essential hypertension Qualified Code(s): I10 - Essenti al (primary) hypertension Is this a current diagnosis for this admission?: Yes Plan: Patient reports history of hypertension Has been relatively NORMOtensive (SBP 120-140) Continue home dose amlodipine. Cardiac diet. (5) Migraine headache Is this a current diagnosis for this admission?: No Plan: History of migraine headaches. Home dose Fioricet will be available while admitted. (6) Nausea and vomiting Qualifiers: Vomiting type: unspecified Vomiting Intractability: non-intractable Qu alified Code(s): R11.2 - Nausea with vomiting, unspecified Is this a current diagnosis for this admission?: Yes Plan: Resolved. Likely secondary to pain and opiate medications. Antiemetics as needed. Continue IV fluids. (7) Major depression Qualifiers: Major depression recurrence: recurrent Major depression episode severity: moderate Is this a current diagnosis for this admission?: No Plan: History of depression. Continue Amitriptyline. - Time Time Spent with patient: 15-24 minutes Medications reviewed and adjusted accordingly: Yes Anticipated discharge: Home Within: Other - when medically stable - Inpatient Certification Based on my medical assessment, after consideration of the patient's comorbidities, presenting symptoms, or acuity I expect that the services needed warrant INPATIENT care.: Yes I certify that my determination is in accordance with my understanding of Medicare's requirements for reasonable and necessary INPATIENT services [42 CFR 412.3e].: Yes Medical Necessity: Risk of Complication if Not Cared For in Hospital
[2018-11-05 21:34] LABS: ABSOLUTE LYMPHOCYTES# (MANUAL) 3.1 10^3/uL (0.5-4.7); ABSOLUTE MONOCYTES # (MANUAL) 0.4 10^3/uL (0.1-1.4); BASOPHILS % (MANUAL) 0 % (0-2); EOSINOPHILS % (MANUAL) 3 % (0-6); LYMPHOCYTES % (MANUAL) 55 % (13-45); MONOCYTES % (MANUAL) 7 % (3-13); NUCLEATED RED BLOOD CELLS 28 /100 WBC (0); SEGMENTED NEUTROPHILS % (MAN) 35 % (42-78); TOTAL CELLS COUNTED 100
[2018-11-05 21:37] LABS: ANISOCYTOSIS 3+; HOWELL-JOLLY BODIES PRESENT; PLATELET COMMENT ADEQUATE; POIKILOCYTOSIS 2+; POLYCHROMASIA 1+; SICKLE RED CELLS 2+; TARGET CELLS 1+
[2018-11-06] MEDS: HYDROMORPHONE HCL INJ/PF 2 MG/ML AMPULE IV PRN ×11 (01:21→22:19)
[2018-11-06] MEDS: PROMETHAZINE HCL INJ 25 MG/1 ML VIAL IV PRN ×4 (05:41→18:01)
[2018-11-06] MEDS: DIPHENHYDRAMINE HCL 50 MG/ML VIAL IV PRN ×3 (05:41→18:00)
[2018-11-06 06:22] LABS: ABSOLUTE RETICS # 0.333 10^6/uL (0.028-0.122); HEMATOCRIT 23.3 % (36.0-47.0); HEMOGLOBIN 8.1 g/dL (12.0-15.5); MEAN CORPUSCULAR HEMOGLOBIN 30.6 pg (27.0-33.4); MEAN CORPUSCULAR HGB CONC 34.7 g/dL (32.0-36.0); MEAN CORPUSCULAR VOLUME 88 fl (80-97); PLATELET COUNT 212 10^3/uL (150-450); RED BLOOD COUNT 2.64 10^6/uL (3.72-5.28); RED CELL DISTRIBUTION WIDTH 22.9 % (11.5-14.0); RETICULOCYTE COUNT (AUTO) 12.62 % (0.66-2.85); WHITE BLOOD COUNT 5.2 10^3/uL (4.0-10.5)
[2018-11-06 06:39] LABS: ALANINE AMINOTRANSFERASE 27 U/L (9-52); ALBUMIN 2.9 g/dL (3.5-5.0); ALKALINE PHOSPHATASE 40 U/L (38-126); ANION GAP 6 (5-19); ASPARTATE AMINO TRANSFERASE 24 U/L (14-36); BILIRUBIN,DIRECT 0.4 mg/dL (0.0-0.4); BILIRUBIN,TOTAL 1.5 mg/dL (0.2-1.3); BLOOD UREA NITROGEN 2 mg/dL (7-20); CALCIUM 7.3 mg/dL (8.4-10.2); CARBON DIOXIDE 27 mmol/L (22-30); CHLORIDE 111 mmol/L (98-107); GLUCOSE 72 mg/dL (75-110); POTASSIUM 3.2 mmol/L (3.6-5.0); SODIUM 144.1 mmol/L (137-145); TOTAL PROTEIN 5.4 g/dL (6.3-8.2)
[2018-11-06] MEDS: NORMAL SALINE 1000 ML 1,000 ML IV PRN ×2 (08:06→20:20)
[2018-11-06] MEDS: ENOXAPARIN SODIUM INJ 40 MG/0.4 ML DISP.SYRIN SUBCUT SCH (09:57)
[2018-11-06] MEDS: SENNOSIDES/DOCUSATE 8.6-50 MG 1 EACH TABLET PO SCH ×2 (09:57→17:00)
[2018-11-06] MEDS: POLYETHYLENE GLYCOL 3350 POWDER 17 GM/1 PACKET PO SCH (09:58)
[2018-11-06] MEDS: FAMOTIDINE 20 MG TABLET PO SCH ×2 (09:58→22:18)
[2018-11-06] MEDS: AMLODIPINE BESYLATE 5 MG TABLET PO SCH (09:58)
[2018-11-06] MEDS: FOLIC ACID 1 MG TABLET PO SCH (09:58)
[2018-11-06] MEDS: NORMAL SALINE 10 ML SDV (SCHEDULED) IV SCH ×2 (09:59→22:00)
[2018-11-06] MEDS: FLUTICASONE NASAL SPRAY 50 MCG/SPRY 120 SPRAY/16 GM NASL SCH ×2 (10:00→22:19)
[2018-11-06] MEDS: HYDROXYUREA 500 MG CAPSULE PO SCH (10:02)
[2018-11-06] MEDS: METAXALONE 800 MG TABLET PO SCH ×3 (10:02→17:00)
[2018-11-06] MEDS: MAGNESIUM SULFATE/D5W 1 GM/100 ML RTUPB IV SCH ×2 (12:34→13:56)
--- NOTE | 2018-11-06 13:50 | RADIOLOGY REPORT (SQ) ---
EXAM DESCRIPTION: VENOUS UNILATERAL UPPER COMPLETED DATE/TIME: 11/06/2018 11:56 am REASON FOR STUDY: RUE swelling. Recent PICC. Eval for DVT COMPARISON: 09/12/[address] CHEST 10/31/2018 TECHNIQUE: Dynamic and static husain scale and color images acquired of the right arm venous system. S elected spectral images acquired with additional compression and augmentation maneuvers. The contrala teral subclavian vein and internal jugular vein were also imaged. Images stored on PACS. LIMITATIONS: None. FINDINGS: RIGHT INTERNAL JUGULAR VEIN: Normal phasicity, compression, augmentation. No visualized echogenic material on husain scale. No defects on color images. Comparison opposite side normal. SUBCLAVIAN VEIN: Normal compression, augmentation. No visualized echogenic material on husain scale. No defects on color images. AXILLARY VEIN: Normal compression, augmentation. No visualized echogenic material on husain scale. No d efects on color images. BRACHIAL VEIN: Normal compression, augmentation. No visualized echogenic material on husain scale. No d efects on color images. BASILIC VEIN: Normal compression, augmentation. No visualized echogenic material on husain scale. No de fects on color images. CEPHALIC VEIN: Normal compression, augmentation. No visualized echogenic material on husain scale. No d efects on color images. OTHER: No other significant finding. LEFT INTERNAL JUGULAR VEIN: Normal phasicity, compression and augmentation. No visualized echogenic material on husain scale. No de fects on color images patient has left PICC catheter. IMPRESSION: NO EVIDENCE DVT OR SVT RIGHT ARM. TECHNICAL DOCUMENTATION: JOB ID: [id number] [email or web address] Reading location - IP/workstation name: [email or web address]
[2018-11-06] MEDS: POTASSI CL 20 MEQ/50 ML RIDER 20 MEQ/50 ML RTUPB IV SCH ×2 (13:57→15:41)
--- NOTE | 2018-11-06 22:08 | PDOC PROGRESS REPORT ---
Subjective Progress Note for:: 11/06/18 Subjective:: 28 y.o. F with a PMH of HTN, migraines, asthma and sickle cell disease is admitted to the hospitalist service for sickle cell crisis. The patient was seen this morning on rounds, she still endorses crisis pain, worse in her back and legs. Hgb remains low, 8.1, but no plan for transfusion today. US RUE was just completed prior to today's interview. Awaiting results to evaluate for DVT Continue pain regimen per Heme/Onc recommendations. Monitor daily CBC. Reason For Visit: SICKLE CELL CRISIS Physical Exam Vital Signs: Temp Pulse Resp BP Pulse Ox 98.0 F 86 18 137/83 H 96 11/06/18 20:27 11/06/18 20:27 11/06/18 20:27 11/06/18 20:27 11/06/18 20:27 Intake & Output 11/05/18 11/06/18 11/07/18 06:59 06:59 06:59 Intake Total 5694 6736 3293 Output Total 4000 5400 700 Balance 1694 1336 2593 Weight 73.8 kg 78.9 kg General appearance: PRESENT: no acute distress, well-developed, well-nourished Head exam: PRESENT: atraumatic, normocephalic Eye exam: PRESENT: conjunctiva pink, EOMI, PERRLA. ABSENT: scleral icterus Ear exam: PRESENT: normal external ear exam Mouth exam: PRESENT: moist, tongue midline Neck exam: ABSENT: carotid bruit, JVD, lymphadenopathy, thyromegaly Respiratory exam: PRESENT: clear to auscultation william. ABSENT: rales, rhonchi, w heezes Cardiovascular exam: PRESENT: RRR. ABSENT: diastolic murmur, rubs, systolic murmur Pulses: PRESENT: normal dorsalis pedis pul Vascular exam: PRESENT: normal capillary refill GI/Abdominal exam: PRESENT: normal bowel sounds, soft. ABSENT: distended, guarding, mass, organolmegaly, rebound, tenderness Rectal exam: PRESENT: deferred Extremities exam: PRESENT: full ROM. ABSENT: calf tenderness, clubbing, pedal edema Neurological exam: PRESENT: alert, awake, oriented to person, oriented to place, oriented to time, oriented to situation, CN II-XII grossly intact. ABSENT: motor sensory deficit Psychiatric exam: PRESENT: appropriate affect, normal mood. ABSENT: homicidal ideation, suicidal ideation Skin exam: PRESENT: dry, intact, warm. ABSENT: cyanosis, rash Results Laboratory Results: 11/06/18 05:40 11/06/18 05:40 11/06/18 11/06/18 05:40 05:40 WBC 5.2 RBC 2.64 L Hgb 8.1 L Hct 23.3 L MCV 88 MCH 30.6 MCHC 34.7 RDW 22.9 H Plt Count 212 Retic Count (auto) 12.62 H Absolute Retic 0.333 H Sodium 144.1 Potassium 3.2 L Chloride 111 H Carbon Dioxide 27 Anion Gap 6 BUN 2 L Creatinine 0.44 L Est GFR ( Amer) > 60 Est GFR (Non-Af Amer) > 60 Glucose 72 L Calcium 7.3 L Magnesium 1.5 L Total Bilirubin 1.5 H AST 24 ALT 27 Alkaline Phosphatase 40 Total Protein 5.4 L Albumin 2.9 L Impressions: Chest X-Ray 10/28/18 17:46 IMPRESSION: NO ACUTE RADIOGRAPHIC FINDING IN THE CHEST. Guidance Fluoroscopy 10/29/18 00:00 IMPRESSION: SUCCESSFUL PLACEMENT OF A 5 FR DUAL LUMEN 41 CM PICC IN THE LEFT BASILIC VEIN. ATTEMPT AT RIGHT ARM PICC PLACEMENT WAS UNSUCCESSFUL. VENOUS STRUCTURES ARE SMALL IN THE RIGHT UPPER ARM. Interventional Vascular Procedure 10/29/18 00:00 IMPRESSION: SUCCESSFUL PLACEMENT OF A 5 FR DUAL LUMEN 41 CM PICC IN THE LEFT BASILIC VEIN. ATTEMPT AT RIGHT ARM PICC PLACEMENT WAS UNSUCCESSFUL. VENOUS STRUCTURES ARE SMALL IN THE RIGHT UPPER ARM. PICC Line Insertion 10/29/18 00:00 IMPRESSION: SUCCESSFUL PLACEMENT OF A 5 FR DUAL LUMEN 41 CM PICC IN THE LEFT BASILIC VEIN. ATTEMPT AT RIGHT ARM PICC PLACEMENT WAS UNSUCCESSFUL. VENOUS STRUCTURES ARE SMALL IN THE RIGHT UPPER ARM. Chest CT 10/31/18 00:00 IMPRESSION: STABLE MILD SCARRING IN THE LUNG BASES. NO SIGNIFICANT FINDING ON NON-CONTRASTED CHEST CT. Venous Doppler Study 11/06/18 00:00 IMPRESSION: NO EVIDENCE DVT OR SVT RIGHT ARM. Status: Imported from PACS Assessment and Plan - Diagnosis (1) Sickle cell anemia with pain Is this a current diagnosis for this admission?: Yes Plan: History of sickle cell anemia came in with severe pain. Hgb 10.7 -> 6.9 (lowest)-->8.1 (today) Now s/p 2 unit PRBC during this hospitalizations Maintenance IV fluids. Oxygen as needed for comfort; maintain oxygen saturations greater than 92%. Hematology is consulted; pain management per their expertise. Continue home dose hydroxyurea. Benadryl and Phenergan as needed. 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 It appears that her baseline is in the mid-9.0s. s/p 2 unit PRBC this hospitalization Hematology is consulted; recommends transfusing for hemoglobin less than 7.5 Continue multivitamin and folic acid supplementation. B12 IM x1 Daily CBC (3) Constipation Qualifiers: Constipation type: drug induced constipation Qualified Code(s): K59.03 - Drug induced constipation Is this a current diagnosis for this admission?: Yes Plan: History of chronic constipation most likely secondary to opioid use. Daily Miralax and Senna Fleets enema daily PRN (4) Hypertension Qualifiers: Hypertension type: essential hypertension Qualified Code(s): I10 - Essential (primary) hypertension Is this a current diagnosis for this admission?: Yes Plan: Patient reports history of hypertension Has been relatively NORMOtensive (SBP 120-140) Continue home dose amlodipine. Cardiac diet. (5) Migraine headache Is this a current diagnosis for this admission?: No Plan: History of migraine headaches. Home dose Fioricet will be available while admitted. (6) Nausea and vomiting Qualifiers: Vomiting type: unspecified Vomiting Intractability: non-intractable Qualified Code(s): R11.2 - Nausea with vomiting, unspecified Is this a current diagnosis for this admission?: Yes Plan: Resolved. Likely secondary to pain and opiate medications. Antiemetics as needed. Continue IV fluids. (7) Major depression Qualifiers: Major depression recurrence: recurrent Major depression episode severity: moderate Is this a current diagnosis for this admission?: No Plan: History of depression. Continue Amitriptyline. - Time Time Spent with patient: 15-24 minutes - Inpatient Certification Based on my medical assessment, after consideration of the patient's comorbidities, presenting symptoms, or acuity I expect that the services needed warrant INPATIENT care.: Yes I certify that my determination is in accordance with my understanding of Medicare's requirements for reasonable and necessary INPATIENT services [42 CFR 412.3e].: Yes Medical Necessity: Need for Pain Control
[2018-11-06] MEDS: AMITRIPTYLINE HCL 50 MG TABLET PO SCH (22:18)
[2018-11-06] MEDS: TEMAZEPAM 15 MG CAPSULE PO PRN (22:18)
[2018-11-06] MEDS: CETIRIZINE 10 MG TABLET PO SCH (22:18)
[2018-11-07] MEDS: DIPHENHYDRAMINE HCL 50 MG/ML VIAL IV PRN ×4 (00:29→18:51)
[2018-11-07] MEDS: PROMETHAZINE HCL INJ 25 MG/1 ML VIAL IV PRN ×4 (00:29→18:51)
[2018-11-07] MEDS: HYDROMORPHONE HCL INJ/PF 2 MG/ML AMPULE IV PRN ×8 (00:30→23:06)
[2018-11-07] MEDS: NORMAL SALINE 1000 ML 1,000 ML IV PRN ×3 (06:36→23:07)
[2018-11-07 07:03] LABS: ABSOLUTE RETICS # 0.188 10^6/uL (0.028-0.122); HEMATOCRIT 27.4 % (36.0-47.0); HEMOGLOBIN 9.5 g/dL (12.0-15.5); MEAN CORPUSCULAR HEMOGLOBIN 30.9 pg (27.0-33.4); MEAN CORPUSCULAR HGB CONC 34.7 g/dL (32.0-36.0); MEAN CORPUSCULAR VOLUME 89 fl (80-97); PLATELET COUNT 217 10^3/uL (150-450); RED BLOOD COUNT 3.07 10^6/uL (3.72-5.28); RED CELL DISTRIBUTION WIDTH 26.2 % (11.5-14.0); RETICULOCYTE COUNT (AUTO) 6.13 % (0.66-2.85); WHITE BLOOD COUNT 7.6 10^3/uL (4.0-10.5)
--- NOTE | 2018-11-07 08:32 | PDOC PROGRESS REPORT ---
Subjective Progress Note for:: 11/07/18 Subjective:: Still an active crisis, continue pain medication hydration for another 24 hours I believe by tomorrow most likely she may be ready Reason For Visit: SICKLE CELL CRISIS Physical Exam Vital Signs: Temp Pulse Resp BP Pulse Ox 98.4 F 93 18 116/82 100 11/07/18 00:19 11/07/18 00:19 11/07/18 00:19 11/07/18 00:19 11/07/18 00:19 Intake & Output 11/06/18 11/07/18 11/08/18 06:59 06:59 06:59 Intake Total 6736 5443 Output Total 5400 3450 Balance 1336 1992 Weight 78.9 kg 80.2 kg General appearance: PRESENT: no acute distress, well-developed, well-nourished Head exam: PRESENT: atraumatic, normocephalic Eye exam: PRESENT: conjunctiva pink, EOMI, PERRLA. ABSENT: scleral icterus Ear exam: PRESENT: normal external ear exam Mouth exam: PRESENT: moist, tongue midline Neck exam: ABSENT: carotid bruit, JVD, lymphadenopathy, thyromegaly Respiratory exam: PRESENT: clear to auscultation william. ABSENT: rales, rhonchi, wheezes Cardiovascular exam: PRESENT: RRR. ABSENT: diastolic murmur, rubs, systolic murmur Pulses: PRESENT: normal dorsalis pedis pul Vascular exam: PRESENT: normal capillary refill GI/Abdominal exam: PRESENT: normal bowel sounds, soft. ABSENT: distended, guarding, mass, organolmegaly, rebound, tenderness Rectal exam: PRESENT: deferred Extremities exam: PRESENT: full ROM. ABSENT: calf tenderness, clubbing, pedal edema Neurological exam: PRESENT: alert, awake, oriented to person, oriented to place, oriented to time, oriented to situation, CN II-XII grossly intact. ABSENT: motor sensory deficit Psychiatric exam: PRESENT: appropriate affect, normal mood. ABSENT: homicidal ideation, suicidal ideation Skin exam: PRESENT: dry, intact, warm. ABSENT: cyanosis, rash Results Laboratory Results: 11/07/18 06:25 11/06/18 05:40 11/07/18 06:25 WBC 7.6 RBC 3.07 L Hgb 9.5 L Hct 27.4 L MCV 89 MCH 30.9 MCHC 34.7 RDW 26.2 H Plt Count 217 Retic Count (auto) 6.13 H Absolute Retic 0.188 H Impressions: Chest X-Ray 10/28/18 17:46 IMPRESSION: NO ACUTE RADIOGRAPHIC FINDING IN THE CHEST. Guidance Fluoroscopy 10/29/18 00:00 IMPRESSION: SUCCESSFUL PLACEMENT OF A 5 FR DUAL LUMEN 41 CM PICC IN THE LEFT BASILIC VEIN. ATTEMPT AT RIGHT ARM PICC PLACEMENT WAS UNSUCCESSFUL. VENOUS STRUCTURES ARE SMALL IN THE RIGHT UPPER ARM. Interventional Vascular Procedure 10/29/18 00:00 IMPRESSION: SUCCESSFUL PLACEMENT OF A 5 FR DUAL LUMEN 41 CM PICC IN THE LEFT BASILIC VEIN. ATTEMPT AT RIGHT ARM PICC PLACEMENT WAS UNSUCCESSFUL. VENOUS STRUCTURES ARE SMALL IN THE RIGHT UPPER ARM. PICC Line Insertion 10/29/18 00:00 IMPRESSION: SUCCESSFUL PLACEMENT OF A 5 FR DUAL LUMEN 41 CM PICC IN THE LEFT BASILIC VEIN. ATTEMPT AT RIGHT ARM PICC PLACEMENT WAS UNSUCCESSFUL. VENOUS STRUCTURES ARE SMALL IN THE RIGHT UPPER ARM. Chest CT 10/31/18 00:00 IMPRESSION: STABLE MILD SCARRING IN THE LUNG BASES. NO SIGNIFICANT FINDING ON NON-CONTRASTED CHEST CT. Venous Doppler Study 11/06/18 00:00 IMPRESSION: NO EVIDENCE DVT OR SVT RIGHT ARM. Assessment & Plan - Diagnosis (1) Sickle cell anemia with pain Is this a current diagnosis for this admission?: Yes Plan: Continued pain crisis, continue with current dose of Dilaudid. 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
[2018-11-07] MEDS: AMLODIPINE BESYLATE 5 MG TABLET PO SCH (10:42)
[2018-11-07] MEDS: SENNOSIDES/DOCUSATE 8.6-50 MG 1 EACH TABLET PO SCH ×2 (10:42→18:50)
[2018-11-07] MEDS: FOLIC ACID 1 MG TABLET PO SCH (10:42)
[2018-11-07] MEDS: METAXALONE 800 MG TABLET PO SCH ×3 (10:42→18:50)
[2018-11-07] MEDS: FAMOTIDINE 20 MG TABLET PO SCH ×2 (10:42→21:04)
[2018-11-07] MEDS: HYDROXYUREA 500 MG CAPSULE PO SCH (10:43)
[2018-11-07] MEDS: POLYETHYLENE GLYCOL 3350 POWDER 17 GM/1 PACKET PO SCH (10:43)
[2018-11-07] MEDS: FLUTICASONE NASAL SPRAY 50 MCG/SPRY 120 SPRAY/16 GM NASL SCH ×2 (10:44→21:06)
[2018-11-07] MEDS: ENOXAPARIN SODIUM INJ 40 MG/0.4 ML DISP.SYRIN SUBCUT SCH (10:44)
[2018-11-07] MEDS: NORMAL SALINE 10 ML SDV (SCHEDULED) IV SCH ×2 (10:45→21:04)
--- NOTE | 2018-11-07 12:18 | PDOC PROGRESS REPORT ---
Subjective Progress Note for:: 11/07/18 Subjective:: 28 y.o. F with a PMH of HTN, migraines, asthma and sickle cell disease is admitted to the hospitalist service for sickle cell crisis. The patient was seen this morning on rounds, she still endorses crisis pain, worse in her back and legs, but states it is tolerable. Hgb remains low, 9.5, but no plan for transfusion today. Continue pain regimen per Heme/Onc recommendations. Monitor daily CBC. Hopefully discharge in 24-48 hours. Reason For Visit: SICKLE CELL CRISIS Physical Exam Vital Signs: Temp Pulse Resp BP Pulse Ox 98.7 F 83 18 141/88 H 98 11/07/18 08:21 11/07/18 08:21 11/07/18 08:21 11/07/18 08:21 11/07/18 08:21 Intake & Output 11/06/18 11/07/18 11/08/18 06:59 06:59 06:59 Intake Total 6736 5443 Output Total 5400 3450 Balance 1336 1992 Weight 78.9 kg 80.2 kg General appearance: PRESENT: well-developed, well-nourished Head exam: PRESENT: atraumatic, normocephalic Eye exam: PRESENT: conjunctiva pink, EOMI, PERRLA. ABSENT: scleral icterus Ear exam: PRESENT: normal external ear exam Mouth exam: PRESENT: moist, tongue midline Neck exam: ABSENT: carotid bruit, JVD, lymphadenopathy, thyromegaly Respiratory exam: PRESENT: clear to auscultation william, symmetrical, unlabored. ABSENT: rales, rhonchi, wheezes Cardiovascular exam: PRESENT: RRR. ABSENT: diastolic murmur, rubs, systolic murmur Pulses: PRESENT: normal radial pulses, normal dorsalis pedis pul Vascular exam: PRESENT: normal capillary refill GI/Abdominal exam: PRESENT: normal bowel sounds, soft. ABSENT: distended, guarding, mass, organolmegaly, rebound, tenderness Rectal exam: PRESENT: deferred Extremities exam: PRESENT: full ROM. ABSENT: calf tenderness, clubbing, pedal edema Musculoskeletal exam: PRESENT: ambulatory, full ROM Neurological exam: PRESENT: alert, awake, oriented to person, oriented to place, oriented to time, oriented to situation Psychiatric exam: PRESENT: appropriate affect, normal mood Skin exam: PRESENT: dry, intact, warm. ABSENT: cyanosis, rash Results Laboratory Results: 11/07/18 06:25 11/06/18 05:40 11/07/18 06:25 WBC 7.6 RBC 3.07 L Hgb 9.5 L Hct 27.4 L MCV 89 MCH 30.9 MCHC 34.7 RDW 26.2 H Plt Count 217 Retic Count (auto) 6.13 H Absolute Retic 0.188 H Impressions: Chest X-Ray 10/28/18 17:46 IMPRESSION: NO ACUTE RADIOGRAPHIC FINDING IN THE CHEST. Guidance Fluoroscopy 10/29/18 00:00 IMPRESSION: SUCCESSFUL PLACEMENT OF A 5 FR DUAL LUMEN 41 CM PICC IN THE LEFT BASILIC VEIN. ATTEMPT AT RIGHT ARM PICC PLACEMENT WAS UNSUCCESSFUL. VENOUS STRUCTURES ARE SMALL IN THE RIGHT UPPER ARM. Interventional Vascular Procedure 10/29/18 00:00 IMPRESSION: SUCCESSFUL PLACEMENT OF A 5 FR DUAL LUMEN 41 CM PICC IN THE LEFT BASILIC VEIN. ATTEMPT AT RIGHT ARM PICC PLACEMENT WAS UNSUCCESSFUL. VENOUS STRUCTURES ARE SMALL IN THE RIGHT UPPER ARM. PICC Line Insertion 10/29/18 00:00 IMPRESSION: SUCCESSFUL PLACEMENT OF A 5 FR DUAL LUMEN 41 CM PICC IN THE LEFT BASILIC VEIN. ATTEMPT AT RIGHT ARM PICC PLACEMENT WAS UNSUCCESSFUL. VENOUS STRUCTURES ARE SMALL IN THE RIGHT UPPER ARM. Chest CT 10/31/18 00:00 IMPRESSION: STABLE MILD SCARRING IN THE LUNG BASES. NO SIGNIFICANT FINDING ON NON-CONTRASTED CHEST CT. Venous Doppler Study 11/06/18 00:00 IMPRESSION: NO EVIDENCE DVT OR SVT RIGHT ARM. Status: Imported from PACS Assessment and Plan - Diagnosis (1) Sickle cell anemia with pain Is this a current diagnosis for this admission?: Yes Plan: History of sickle cell anemia came in with severe pain. Hgb 10.7 -> 6.9 (lowest)-->9.5 (today) Now s/p 2 unit PRBC during this hospitalizations Maintenance IV fluids. Oxygen as needed for comfort; maintain oxygen saturations greater than 92%. Hematology is consulted; pain management per their expertise. Continue home dose hydroxyurea. Benadryl and Phenergan as needed. 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 It appears that her baseline is in the mid-9.0s. s/p 2 unit PRBC this hospitalization Hematology is consulted; recommends transfusing for hemoglobin less than 7.5 Continue multivitamin and folic acid supplementation. B12 IM x1 Daily CBC (3) Constipation Qualifiers: Constipation type: drug induced constipation Qualified Code(s): K59.03 - Drug induced constipation Is this a current diagnosis for this admission?: Yes Plan: History of chronic constipation most likely secondary to opioid use. Daily Miralax and Senna Fleets enema daily PRN (4) Hypertension Qualifiers: Hypertension type: essential hypertension Qualified Code(s): I10 - Essential (primary) hypertension Is this a current diagnosis for this admission?: Yes Plan: Patient reports history of hypertension Has been relatively NORMOtensive (SBP 120-140) Continue home dose amlodipine. Cardiac diet. (5) Migraine headache Is this a current diagnosis for this admission?: No Plan: History of migraine headaches. Home dose Fioricet will be available while admitted. (6) Nausea and vomiting Qualifiers: Vomiting type: unspecified Vomiting Intractability: non-intractable Qualified Code(s): R11.2 - Nausea with vomiting, unspecified Is this a current diagnosis for this admission?: Yes Plan: Resolved. Likely secondary to pain and opiate medications. Antiemetics as needed. Continue IV fluids. (7) Major depression Qualifiers: Major depression recurrence: recurrent Major depression episode severity: moderate Is this a current diagnosis for this admission?: No Plan: History of depression. Continue Amitriptyline. - Time Time Spent with patient: Less than 15 minutes Medications reviewed and adjusted accordingly: Yes Anticipated discharge: Home Within: within 24 hours, within 48 hours - Inpatient Certification Based on my medical assessment, after consideration of the patient's comorbidities, presenting symptoms, or acuity I expect that the services needed warrant INPATIENT care.: Yes I certify that my determination is in accordance with my understanding of Medicare's requirements for reasonable and necessary INPATIENT services [42 CFR 412.3e].: Yes Medical Necessity: Risk of Complication if Not Cared For in Hospital
[2018-11-07] MEDS ORDERED: HYDROMORPHONE HCL INJ/PF 2 MG/ML AMPULE ONE (12:30)
[2018-11-07 15:15] LABS: ANION GAP 9 (5-19); BLOOD UREA NITROGEN 3 mg/dL (7-20); CALCIUM 8.7 mg/dL (8.4-10.2); CARBON DIOXIDE 29 mmol/L (22-30); CHLORIDE 104 mmol/L (98-107); GLUCOSE 109 mg/dL (75-110); POTASSIUM 3.8 mmol/L (3.6-5.0)
[2018-11-07] MEDS: CETIRIZINE 10 MG TABLET PO SCH (21:04)
[2018-11-07] MEDS: AMITRIPTYLINE HCL 50 MG TABLET PO SCH (21:04)
[2018-11-07] MEDS: TEMAZEPAM 15 MG CAPSULE PO PRN (21:08)
[2018-11-07] MEDS: NA PHOS,M-B/NA PHOS,DI-BA (ADULT) 133 ML ENEMA PR PRN (22:05)
[2018-11-08] MEDS: DIPHENHYDRAMINE HCL 50 MG/ML VIAL IV PRN ×2 (01:43→07:45)
[2018-11-08] MEDS: PROMETHAZINE HCL INJ 25 MG/1 ML VIAL IV PRN ×3 (01:44→12:11)
[2018-11-08] MEDS: HYDROMORPHONE HCL INJ/PF 2 MG/ML AMPULE IV PRN ×6 (01:44→14:11)
[2018-11-08] MEDS: NORMAL SALINE 1000 ML 1,000 ML IV PRN (07:46)
[2018-11-08 08:57] VITALS: BP 118/78
[2018-11-08 09:19] LABS: HEMATOCRIT 27.7 % (36.0-47.0); HEMOGLOBIN 9.5 g/dL (12.0-15.5); MEAN CORPUSCULAR HEMOGLOBIN 31.1 pg (27.0-33.4); MEAN CORPUSCULAR HGB CONC 34.4 g/dL (32.0-36.0); MEAN CORPUSCULAR VOLUME 91 fl (80-97); PLATELET COUNT 255 10^3/uL (150-450); RED BLOOD COUNT 3.06 10^6/uL (3.72-5.28); RED CELL DISTRIBUTION WIDTH 27.2 % (11.5-14.0); WHITE BLOOD COUNT 5.6 10^3/uL (4.0-10.5)
[2018-11-08 09:20] LABS: ANION GAP 7 (5-19); BLOOD UREA NITROGEN 4 mg/dL (7-20); CALCIUM 8.5 mg/dL (8.4-10.2); CARBON DIOXIDE 28 mmol/L (22-30); CHLORIDE 107 mmol/L (98-107); GLUCOSE 88 mg/dL (75-110); POTASSIUM 3.7 mmol/L (3.6-5.0); SODIUM 142.1 mmol/L (137-145)
[2018-11-08] MEDS: FOLIC ACID 1 MG TABLET PO SCH (09:47)
[2018-11-08] MEDS: FLUTICASONE NASAL SPRAY 50 MCG/SPRY 120 SPRAY/16 GM NASL SCH (09:47)
[2018-11-08] MEDS: ENOXAPARIN SODIUM INJ 40 MG/0.4 ML DISP.SYRIN SUBCUT SCH (09:47)
[2018-11-08] MEDS: HYDROXYUREA 500 MG CAPSULE PO SCH (09:47)
[2018-11-08] MEDS: FAMOTIDINE 20 MG TABLET PO SCH (09:48)
[2018-11-08] MEDS: NORMAL SALINE 10 ML SDV (SCHEDULED) IV SCH (09:48)
[2018-11-08] MEDS: SENNOSIDES/DOCUSATE 8.6-50 MG 1 EACH TABLET PO SCH (09:48)
[2018-11-08] MEDS: METAXALONE 800 MG TABLET PO SCH ×2 (09:48→14:15)
[2018-11-08] MEDS: AMLODIPINE BESYLATE 5 MG TABLET PO SCH (09:48)
[2018-11-08] MEDS: POLYETHYLENE GLYCOL 3350 POWDER 17 GM/1 PACKET PO SCH (09:56)
[2018-11-08] MEDS ORDERED: DIPHENHYDRAMINE HCL 50 MG/ML VIAL ONE (12:01)
--- NOTE | 2018-11-08 12:28 | PDOC PROGRESS REPORT ---
Subjective Progress Note for:: 11/08/18 Subjective:: Patient feeling better, ready for discharge today. Reason For Visit: SICKLE CELL CRISIS Physical Exam Vital Signs: Temp Pulse Resp BP Pulse Ox 98.4 F 96 18 118/78 96 11/08/18 08:57 11/08/18 08:57 11/08/18 08:57 11/08/18 08:57 11/08/18 08:57 Intake & Output 11/07/18 11/08/18 11/09/18 06:59 06:59 06:59 Intake Total 5443 3675 1000 Output Total 3450 2300 Balance 1993 1375 1000 Weight 80.2 kg 80.2 kg General appearance: PRESENT: no acute distress, well-developed, well-nourished Head exam: PRESENT: atraumatic, normocephalic Eye exam: PRESENT: conjunctiva pink, EOMI, PERRLA. ABSENT: scleral icterus Ear exam: PRESENT: normal external ear exam Mouth exam: PRESENT: moist, tongue midline Neck exam: ABSENT: carotid bruit, JVD, lymphadenopathy, thyromegaly Respiratory exam: PRESENT: clear to auscultation william. ABSENT: rales, rhonchi, wheezes Cardiovascular exam: PRESENT: RRR. ABSENT: diastolic murmur, rubs, systolic murmur Pulses: PRESENT: normal dorsalis pedis pul Vascular exam: PRESENT: normal capillary refill GI/Abdominal exam: PRESENT: normal bowel sounds, soft. ABSENT: distended, guarding, mass, organolmegaly, rebound, tenderness Rectal exam: PRESENT: deferred Extremities exam: PRESENT: full ROM. ABSENT: calf tenderness, clubbing, pedal edema Neurological exam: PRESENT: alert, awake, oriented to person, oriented to place, oriented to time, oriented to situation, CN II-XII grossly intact. ABSENT: motor sensory deficit Psychiatric exam: PRESENT: appropriate affect, normal mood. ABSENT: homicidal ideation, suicidal ideation Skin exam: PRESENT: dry, intact, warm. ABSENT: cyanosis, rash Results Laboratory Results: 11/08/18 08:40 11/08/18 08:40 11/07/18 11/08/18 11/08/18 14:20 08:40 08:40 WBC 5.6 RBC 3.06 L Hgb 9.5 L Hct 27.7 L MCV 91 MCH 31.1 MCHC 34.4 RDW 27.2 H Plt Count 255 Sodium 142.0 142.1 Potassium 3.8 3.7 Chloride 104 107 Carbon Dioxide 29 28 Anion Gap 9 7 BUN 3 L 4 L Creatinine 0.42 L 0.46 L Est GFR ( Amer) > 60 > 60 Est GFR (Non-Af Amer) > 60 > 60 Glucose 109 88 Calcium 8.7 8.5 Magnesium 1.7 Impressions: Chest X-Ray 10/28/18 17:46 IMPRESSION: NO ACUTE RADIOGRAPHIC FINDING IN THE CHEST. Guidance Fluoroscopy 10/29/18 00:00 IMPRESSION: SUCCESSFUL PLACEMENT OF A 5 FR DUAL LUMEN 41 CM PICC IN THE LEFT BASILIC VEIN. ATTEMPT AT RIGHT ARM PICC PLACEMENT WAS UNSUCCESSFUL. VENOUS STRUCTURES ARE SMALL IN THE RIGHT UPPER ARM. Interventional Vascular Procedure 10/29/18 00:00 IMPRESSION: SUCCESSFUL PLACEMENT OF A 5 FR DUAL LUMEN 41 CM PICC IN THE LEFT BASILIC VEIN. ATTEMPT AT RIGHT ARM PICC PLACEMENT WAS UNSUCCESSFUL. VENOUS STRUCTURES ARE SMALL IN THE RIGHT UPPER ARM. PICC Line Insertion 10/29/18 00:00 IMPRESSION: SUCCESSFUL PLACEMENT OF A 5 FR DUAL LUMEN 41 CM PICC IN THE LEFT BASILIC VEIN. ATTEMPT AT RIGHT ARM PICC PLACEMENT WAS UNSUCCESSFUL. VENOUS STRUCTURES ARE SMALL IN THE RIGHT UPPER ARM. Chest CT 10/31/18 00:00 IMPRESSION: STABLE MILD SCARRING IN THE LUNG BASES. NO SIGNIFICANT FINDING ON NON-CONTRASTED CHEST CT. Venous Doppler Study 11/06/18 00:00 IMPRESSION: NO EVIDENCE DVT OR SVT RIGHT ARM. Assessment & Plan - Diagnosis (1) Sickle cell anemia with pain Is this a current diagnosis for this admission?: Yes Plan: Doing much better, discharged today, gave patient Rx for Dilaudid. 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
[2018-11-08] MEDS ORDERED: DIPHENHYDRAMINE HCL 50 MG/ML VIAL IV ONE (13:00)
--- NOTE | 2018-11-08 20:42 | PDOC DISCHARGE SUMMARY ---
General - Admit/Disc Date/PCP Admission Date/Primary Care Provider: 10/28/18 16:52 LINETTE GALVAN, Discharge Date: 11/08/18 - Discharge Diagnosis (1) Sickle cell anemia with pain Is this a current diagnosis for this admission?: Yes Summary: History of sickle cell anemia; admitted in crisis Hgb 10.7 -> 6.9 (lowest)-->9.5 (today) Now s/p 2 unit PRBC during this hospitalizations She was admitted to the medical floor and provided maintenance IV fluids, oxygen as needed for comfort, and standard care set of as needed Benadryl, Phenergan, and Dilaudid for pain. Her home dose hydroxyurea was continued. Hematology was consulted; medication and pain management per their expertise. The patients discomfort gradually improved and she was discharged to home in stable condition with adequately controlled pain. She was advised to drink plenty of water and avoid known triggers. She is instructed to follow up with her PCP within [address] Cornelius's office on Saturday as they had discussed. She was provided a prescription for p.o. Dilaudid by Dr. Cornelius. She is instructed to return to the emergency department as needed for any concerning symptoms. (2) Anemia Is this a current diagnosis for this admission?: Yes Summary: Hemoglobin of 10.7 on admission; has trended down. It appears that her baseline is in the mid-9.0s. s/p 2 unit PRBC this hospitalization Continue multivitamin and folic acid supplementation. Received B12 IM x1 (3) Constipation Is this a current diagnosis for this admission?: Yes Summary: History of chronic constipation; likely secondary to opioid use. Continue daily Miralax and Senna (4) Hypertension Is this a current diagnosis for this admission?: Yes Summary: Patient reports history of hypertension Has been relatively NORMOtensive (SBP 120-140) Continue home dose amlodipine and cardiac diet. (5) Major depression Is this a current diagnosis for this admission?: No Summary: History of depression. Continue Amitriptyline. (6) Migraine headache Is this a current diagnosis for this admission?: No Summary: History of migraine headaches; none while admitted. Continue home dose Fioricet. (7) Nausea and vomiting Is this a current diagnosis for this admission?: Yes Summary: Resolved. Likely secondary to pain and opiate medications. - Additional Information Resuscitation Status: Full Code Discharge Diet: Regular Discharge Activity: Activity As Tolerated, Balance Activity w/Rest Home Medications: Amlodipine Besylate [Norvasc 5 mg Tablet] 5 mg PO DAILY 04/16/17 Cetirizine HCl [Zyrtec 10 mg Tablet] 10 mg PO QHS 04/16/17 Cyclobenzaprine HCl [Flexeril 5 mg Tablet] 5 mg PO Q12HP PRN 04/16/17 Folic Acid [Folvite 1 mg Tablet] 1 mg PO DAILY 04/16/17 Hydroxyurea [Hydrea 500 mg Capsule] 1,500 mg PO SUTUTHSA@1000 04/16/17 Hydroxyurea [Hydrea 500 mg Capsule] 2,000 mg PO MOWEFR@1000 04/16/17 Oxycodone HCl 15 mg PO Q6HP PRN 04/16/17 Promethazine HCl [Phenergan 25 mg Tablet] 25 mg PO Q6HP PRN 04/16/17 Amitriptyline HCl [Elavil 50 mg Tablet] 50 mg PO QHS 02/27/18 Fluticasone Propionate [Flonase Nasal [place] 50 Mcg/[place] 16 gm] 2 spray NASL Q12A #1 spray.pump 09/16/18 Butalb/Acetaminophen/Caffeine [Fluobl-Msjuyqjl-Enej 50-325-40] 1 each PO Q4HP PRN 10/28/18 Temazepam [Restoril 15 mg Capsule] 15 mg PO HSP PRN 10/28/18 Acetaminophen [Tylenol 325 mg Tablet] 650 mg PO Q4HP PRN tablet 11/08/18 Polyethylene Glycol 3350 [Miralax Powder 17 gm/Packet] 17 gm PO DAILY powd.pack 11/08/18 Sennosides/Docusate 8.6-50 mg [Senna Plus Tablet] 2 each PO BID tablet 11/08/18 History of Present Illness History of Present Illness: Per H&P by Dr. Myers: PRANAV JOINER is a 28 year old female with history of sickle cell anemia, hypertension, migraine headaches, insomnia came to the emergency room with complaints of increasing pain for the last several days. She came to the emergency room twice for the same problem the pains are continued to gotten worse pain scale is 8 to 10 x 10 not associated with fever not a surgical chest pain is not associated with shortness of breath but she did tell me that she had a few loose stools yesterday. No bowel movement today. Denies any other complaints. Physical Exam Vital Signs: Temp Pulse Resp BP Pulse Ox 98.4 F 96 18 118/78 96 11/08/18 14:15 11/08/18 14:15 11/08/18 14:15 11/08/18 14:15 11/08/18 14:15 Intake & Output 11/07/18 11/08/18 11/09/18 06:59 06:59 06:59 Intake Total 5443 3675 1000 Output Total 3450 2300 Balance 1992 1375 1000 Weight 80.2 kg 80.2 kg General appearance: PRESENT: no acute distress, cooperative, well-developed, well-nourished Head exam: PRESENT: atraumatic, normocephalic Eye exam: PRESENT: conjunctiva pink, EOMI, PERRLA. ABSENT: scleral icterus Mouth exam: PRESENT: moist, tongue midline Neck exam: ABSENT: carotid bruit, JVD, lymphadenopathy, thyromegaly Respiratory exam: PRESENT: clear to auscultation william, symmetrical, unlabored. ABSENT: rales, rhonchi, wheezes Cardiovascular exam: PRESENT: RRR, +S1, +S2. ABSENT: diastolic murmur, rubs, systolic murmur Pulses: PRESENT: normal dorsalis pedis pul Vascular exam: PRESENT: normal capillary refill GI/Abdominal exam: PRESENT: normal bowel sounds, soft. ABSENT: distended, guarding, mass, organolmegaly, rebound, tenderness Rectal exam: PRESENT: deferred Extremities exam: PRESENT: full ROM. ABSENT: calf tenderness, clubbing, pedal edema Neurological exam: PRESENT: alert, awake, oriented to person, oriented to place, oriented to time, oriented to situation, CN II-XII grossly intact. ABSENT: motor sensory deficit Psychiatric exam: PRESENT: appropriate affect, normal mood. ABSENT: homicidal ideation, suicidal ideation Skin exam: PRESENT: dry, intact, warm. ABSENT: cyanosis, rash Results Laboratory Results: 11/08/18 08:40 11/08/18 08:40 11/08/18 11/08/18 08:40 08:40 WBC 5.6 RBC 3.06 L Hgb 9.5 L Hct 27.7 L MCV 91 MCH 31.1 MCHC 34.4 RDW 27.2 H Plt Count 255 Sodium 142.1 Potassium 3.7 Chloride 107 Carbon Dioxide 28 Anion Gap 7 BUN 4 L Creatinine 0.46 L Est GFR ( Amer) > 60 Est GFR (Non-Af Amer) > 60 Glucose 88 Calcium 8.5 Impressions: Chest X-Ray 10/28/18 17:46 IMPRESSION: NO ACUTE RADIOGRAPHIC FINDING IN THE CHEST. Guidance Fluoroscopy 10/29/18 00:00 IMPRESSION: SUCCESSFUL PLACEMENT OF A 5 FR DUAL LUMEN 41 CM PICC IN THE LEFT BASILIC VEIN. ATTEMPT AT RIGHT ARM PICC PLACEMENT WAS UNSUCCESSFUL. VENOUS STRUCTURES ARE SMALL IN THE RIGHT UPPER ARM. Interventional Vascular Procedure 10/29/18 00:00 IMPRESSION: SUCCESSFUL PLACEMENT OF A 5 FR DUAL LUMEN 41 CM PICC IN THE LEFT BASILIC VEIN. ATTEMPT AT RIGHT ARM PICC PLACEMENT WAS UNSUCCESSFUL. VENOUS STRUCTURES ARE SMALL IN THE RIGHT UPPER ARM. PICC Line Insertion 10/29/18 00:00 IMPRESSION: SUCCESSFUL PLACEMENT OF A 5 FR DUAL LUMEN 41 CM PICC IN THE LEFT BASILIC VEIN. ATTEMPT AT RIGHT ARM PICC PLACEMENT WAS UNSUCCESSFUL. VENOUS STRUCTURES ARE SMALL IN THE RIGHT UPPER ARM. Chest CT 10/31/18 00:00 IMPRESSION: STABLE MILD SCARRING IN THE LUNG BASES. NO SIGNIFICANT FINDING ON NON-CONTRASTED CHEST CT. Venous Doppler Study 11/06/18 00:00 IMPRESSION: NO EVIDENCE DVT OR SVT RIGHT ARM. Qualifiers - * PATIENT BEING DISCHARGED WITH ANY OF THE FOLLOWING DIAGNOSIS: No Acute Heart Failure Is this a Heart Failure Patient?: No Plan Discharge Plan: Follow up with primary care provider within 1 week. Follow up with Dr. Cornelius's office on Saturday. Drink plenty of water. Avoid known triggers. Return to the emergency department as needed for concerning symptoms. Time Spent: Less than 30 Minutes
== END 2018-11-08 14:15 | disposition home or self-care (01) | DRG 812 ==
LOC: ER 13:36 → EH 16:52 → 2N 19:30 → 4N 11-01 23:40
PROVIDERS: ADMIT Internal Medicine; ATTEND Internal Medicine
PROC: 02HV33Z Insertion of Infusion Device into Superior Vena Cava, Percutaneous Approach (ICD-10-PCS; principal; 2018-10-29)
PROC: B548ZZA Ultrasonography of Superior Vena Cava, Guidance (ICD-10-PCS; 2018-10-29)
PROC: 30233N1 Transfusion of Nonautologous Red Blood Cells into Peripheral Vein, Percutaneous Approach (ICD-10-PCS; 2018-11-01)
PROC: 30233N1 Transfusion of Nonautologous Red Blood Cells into Peripheral Vein, Percutaneous Approach (ICD-10-PCS; 2018-11-05)
DX: D57.00 Hb-SS disease with crisis, unspecified (principal); I10 Essential (primary) hypertension; K21.9 Gastro-esophageal reflux disease without esophagitis; K59.03 Drug induced constipation; G43.909 Migraine, unspecified, not intractable, without status migrainosus; F32.9 Major depressive disorder, single episode, unspecified; Z79.899 Other long term (current) drug therapy
CPT/HCPCS: 36415; 36430; 36569; 71046; 71250; 76937; 77001; 80048; 80053; 81001; 81025; 83615; 83735; 85025; 85027; 85045; 86850; 86900; 86901; 86902; 86920; 87040; 93971; 96361; 96374; 96375; 99285; J1170; J1200; J1642; J1650; J1885; J2405; J2550; J3420; J3475; J3480; J3490; J7030; J7050; J7614; P9016

== ENCOUNTER 2018-11-17 10:59 | Outpatient (CLI) | payer MEDICAID ==
[~2018-11-17 10:59] MED LIST changes: -HYDROMORPHONE HCL INJ 2 MG/ML 20 ML MDV IV PRN; -HYDROMORPHONE HCL INJ/PF 2 MG/ML AMPULE IV PRN
[2018-11-17] MEDS ORDERED: HYDROMORPHONE HCL INJ/PF 2 MG/ML AMPULE IV PRN (11:12)
[2018-11-17] MEDS ORDERED: ONDANSETRON HCL/PF 8 MG in NORMAL SALINE 50 ML IV PRN (11:17)
[2018-11-17 11:20] VITALS: BP 130/66
== END 2018-11-17 12:39 | disposition home or self-care (01) ==
LOC: II 10:59 → 2N 11:07 → II 12:39
PROVIDERS: ATTEND Internal Medicine
PROC: 3E0337Z Introduction of Electrolytic and Water Balance Substance into Peripheral Vein, Percutaneous Approach (ICD-10-PCS; principal; 2018-11-17)
PROC: 3E033GC Introduction of Other Therapeutic Substance into Peripheral Vein, Percutaneous Approach (ICD-10-PCS; 2018-11-17)
DX: D57.00 Hb-SS disease with crisis, unspecified (principal); E86.0 Dehydration; R11.0 Nausea; R52 Pain, unspecified
CPT/HCPCS: J1170; J2405; J7030; 96361; 96374; 96375

== ENCOUNTER 2018-11-19 07:40 | Outpatient (CLI) | payer MEDICAID ==
[2018-11-19] MEDS ORDERED: ONDANSETRON HCL/PF 8 MG in NORMAL SALINE 50 ML IV PRN (08:11)
[2018-11-19] MEDS ORDERED: HYDROMORPHONE HCL INJ/PF 2 MG/ML AMPULE IV PRN (08:13)
[2018-11-19] MEDS ORDERED: NORMAL SALINE 1000 ML 1,000 ML IV PRN (08:14)
[2018-11-19 08:40] VITALS: BP 125/68
== END 2018-11-19 10:34 | disposition home or self-care (01) ==
LOC: II 07:40 → 5TH 07:42 → II 10:34
PROVIDERS: ATTEND Internal Medicine
DX: D57.00 Hb-SS disease with crisis, unspecified (principal)
CPT/HCPCS: 96365; 96374; 96360; 96361; J1170; J2405

== ENCOUNTER 2018-11-20 13:02 | Outpatient (CLI) | payer MEDICAID ==
[2018-11-20] MEDS ORDERED: NORMAL SALINE 1000 ML 1,000 ML IV PRN (13:19)
[2018-11-20] MEDS ORDERED: ONDANSETRON HCL INJ/PF 4 MG/2 ML SDV IV PRN ×2 (13:20→13:30)
[2018-11-20] MEDS ORDERED: HYDROMORPHONE HCL INJ/PF 2 MG/ML AMPULE INJ PRN (13:21)
[2018-11-20 13:30] VITALS: BP 123/68
[2018-11-20] MEDS ORDERED: HYDROMORPHONE HCL INJ/PF 2 MG/ML AMPULE IV PRN (13:30)
== END 2018-11-20 16:23 | disposition home or self-care (01) ==
LOC: II 13:02 → 5TH 13:21 → II 16:23
PROVIDERS: ATTEND Internal Medicine
PROC: 3E033GC Introduction of Other Therapeutic Substance into Peripheral Vein, Percutaneous Approach (ICD-10-PCS; principal; 2018-11-20)
PROC: 3E0337Z Introduction of Electrolytic and Water Balance Substance into Peripheral Vein, Percutaneous Approach (ICD-10-PCS; 2018-11-20)
DX: D57.00 Hb-SS disease with crisis, unspecified (principal); E86.0 Dehydration; R11.0 Nausea; R52 Pain, unspecified
CPT/HCPCS: 96374; 96375; 96360; 96361; J1170; J2405

== ENCOUNTER 2018-11-21 11:07 | Outpatient (CLI) | payer MEDICAID ==
[~2018-11-21 11:07] MED LIST changes: +HYDROMORPHONE HCL INJ/PF 2 MG/ML AMPULE IV PRN; +ONDANSETRON HCL INJ/PF 4 MG/2 ML SDV IV PRN
[2018-11-21 11:22] VITALS: BP 128/66
== END 2018-11-21 13:37 | disposition home or self-care (01) ==
LOC: II 11:07 → 5TH 11:09 → II 13:37
PROVIDERS: ATTEND Internal Medicine
PROC: 3E033GC Introduction of Other Therapeutic Substance into Peripheral Vein, Percutaneous Approach (ICD-10-PCS; principal; 2018-11-21)
PROC: 3E0337Z Introduction of Electrolytic and Water Balance Substance into Peripheral Vein, Percutaneous Approach (ICD-10-PCS; 2018-11-21)
DX: D57.00 Hb-SS disease with crisis, unspecified (principal); E86.0 Dehydration; R11.0 Nausea; R52 Pain, unspecified
CPT/HCPCS: 96374; 96375; 96360; 96361; J1170; J2405

== ENCOUNTER 2018-11-25 11:21 | Outpatient (CLI) | payer MEDICAID ==
[2018-11-25] MEDS ORDERED: HYDROMORPHONE HCL INJ/PF 2 MG/ML AMPULE ONE (11:56)
[2018-11-25] MEDS ORDERED: ONDANSETRON HCL INJ/PF 4 MG/2 ML SDV ONE (11:56)
[2018-11-25] MEDS ORDERED: NORMAL SALINE 1000 ML 1,000 ML IV PRN (11:58)
[2018-11-25] MEDS ORDERED: HYDROMORPHONE HCL INJ/PF 2 MG/ML AMPULE IV PRN (12:00)
[2018-11-25] MEDS ORDERED: ONDANSETRON HCL INJ/PF 4 MG/2 ML SDV IV PRN (12:00)
[2018-11-25 13:48] VITALS: BP 110/54
== END 2018-11-25 14:09 | disposition home or self-care (01) ==
LOC: II 11:21 → 5TH 11:32 → II 14:09
PROVIDERS: ATTEND Internal Medicine
PROC: 3E0337Z Introduction of Electrolytic and Water Balance Substance into Peripheral Vein, Percutaneous Approach (ICD-10-PCS; principal; 2018-11-25)
PROC: 3E033GC Introduction of Other Therapeutic Substance into Peripheral Vein, Percutaneous Approach (ICD-10-PCS; 2018-11-25)
DX: D57.00 Hb-SS disease with crisis, unspecified (principal); E86.0 Dehydration; R11.0 Nausea; R52 Pain, unspecified
CPT/HCPCS: 96374; 96360; 96361; J1170; J2405; 96375

== ENCOUNTER 2018-11-27 13:14 | Outpatient (CLI) | payer MEDICAID ==
[2018-11-27] MEDS ORDERED: ONDANSETRON HCL INJ/PF 4 MG/2 ML SDV ONE (14:10)
[2018-11-27] MEDS ORDERED: HYDROMORPHONE HCL INJ/PF 2 MG/ML AMPULE ONE (14:10)
[2018-11-27 14:54] VITALS: BP 122/66
== END 2018-11-27 16:05 | disposition home or self-care (01) ==
LOC: II 13:14 → 5TH 13:54 → II 16:05
PROVIDERS: ATTEND Internal Medicine
PROC: 3E0337Z Introduction of Electrolytic and Water Balance Substance into Peripheral Vein, Percutaneous Approach (ICD-10-PCS; principal; 2018-11-27)
PROC: 3E033GC Introduction of Other Therapeutic Substance into Peripheral Vein, Percutaneous Approach (ICD-10-PCS; 2018-11-27)
DX: D57.00 Hb-SS disease with crisis, unspecified (principal); E86.0 Dehydration; R11.0 Nausea; R52 Pain, unspecified
CPT/HCPCS: 96360; 96361; 96374; 96375; J1170; J2405

== ENCOUNTER 2018-12-05 14:42 | Outpatient (CLI) | payer MEDICAID ==
[2018-12-05 15:19] VITALS: BP 114/51
[2018-12-05] MEDS ORDERED: NORMAL SALINE 1000 ML 1,000 ML IV PRN (15:20)
[2018-12-05] MEDS ORDERED: ONDANSETRON HCL INJ/PF 4 MG/2 ML SDV IV PRN (15:21)
[2018-12-05] MEDS ORDERED: HYDROMORPHONE HCL INJ/PF 2 MG/ML AMPULE IV PRN (15:22)
== END 2018-12-05 17:06 | disposition home or self-care (01) ==
LOC: II 14:42 → 5TH 14:43 → II 17:06
PROVIDERS: ATTEND Internal Medicine
PROC: 3E0337Z Introduction of Electrolytic and Water Balance Substance into Peripheral Vein, Percutaneous Approach (ICD-10-PCS; principal; 2018-12-05)
PROC: 3E033GC Introduction of Other Therapeutic Substance into Peripheral Vein, Percutaneous Approach (ICD-10-PCS; 2018-12-05)
DX: D57.00 Hb-SS disease with crisis, unspecified (principal); E86.0 Dehydration; R11.0 Nausea; R52 Pain, unspecified
CPT/HCPCS: 96375; 96360; 96361; J1170; J2405

== ENCOUNTER 2018-12-07 14:54 | Emergency (ER) | payer MEDICAID ==
[2018-12-07] MEDS ORDERED: NORMAL SALINE 1000 ML 1,000 ML IV ONE (15:45)
[2018-12-07] MEDS ORDERED: ONDANSETRON HCL INJ/PF 4 MG/2 ML SDV IV ONE (15:46)
[2018-12-07] MEDS ORDERED: HYDROMORPHONE HCL INJ/PF 2 MG/ML AMPULE IV ONE ×2 (15:46→19:12)
--- NOTE | 2018-12-07 15:47 | ER Document Report ---
ED Medical Screen (RME) - General Chief Complaint: Pelvic Pain Stated Complaint: LEG PAIN Time Seen by Provider: 12/07/18 15:40 Primary Care Provider: LINETTE GALVAN DO [Primary Care Provider] - Follow up as needed Information source: Patient Notes: Patient presents complaining of bilateral leg pain for the past 5 days with lower abdominal pain for the past 4 days. Patient does complain of nausea. Patient denies any vaginal bleeding or discharge. Patient denies any urinary symptoms. Patient denies any vomiting or diarrhea. Patient does have history of sickle cell disease and is uncertain if she might be at the start of the flareup. I have greeted and performed a rapid initial assessment of this patient. A comprehensive ED assessment and evaluation of the patient, analysis of test results and completion of the medical decision making process will be conducted by additional ED providers. TRAVEL OUTSIDE OF THE [place] IN LAST 30 DAYS: No - Related Data Allergies/Adverse Reactions: ceftriaxone sodium [From Rocephin] Allergy (Verified 10/20/18 08:49) Cephalosporins Allergy (Verified 10/20/18 08:49) milk [Milk] Allergy (Verified 10/20/18 08:49) Shellfish * [Shellfish] Allergy (Verified 10/20/18 08:49) wheat [Wheat] Allergy (Verified 10/20/18 08:49) Past Medical History - Social History Chew tobacco use (# tins/day): No Frequency of alcohol use: None Drug Abuse: None Family history: None, Reviewed & Not Pertinent - Past Medical History Cardiac Medical History: Reports: Hx Hypertension, Hx Heart Murmur Denies: Hx Coronary Artery Disease, Hx Heart Attack Pulmonary Medical History: Reports: Hx Asthma, Hx Pneumonia - 2017 Denies: Hx Bronchitis, Hx COPD, Hx Tuberculosis Neurological Medical History: Reports: Hx Migraine, Hx Seizures - HX OF. NO MEDICATIONS. Denies: Hx Cerebrovascular Accident Endocrine Medical History: Denies: Hx Diabetes Mellitus Type 2, Hx Hyperthyroidism, Hx Hypothyroidism Renal/ Medical History: Denies: Hx Peritoneal Dialysis GI Medical History: Reports: Hx Gastroesophageal Reflux Disease Musculoskeltal Medical History: Denies Hx Arthritis, Denies Hx Fibromyalgia Skin Medical History: Reports Hx MRSA Psychiatric Medical History: Reports: Hx Depression Past Surgical History: Reports: Hx Adenoidectomy, Hx Cholecystectomy, Hx Oral Surgery - growth removed from under tongue, Hx Tonsillectomy, Other - Port placement 2 and removal for infection, multiple PICC lines, central l. Denies: Hx Hysterectomy, Hx Kidney (Renal Surgery), Hx Pacemaker - Immunizations Hx Diphtheria, Pertussis, Tetanus Vaccination: Yes History of Influenza Vaccine for 04/2017 - 09/2017 Season: Yes Influenza Administration Date for 04/2017 - 09/2017 Season: 03/22/17 Physical Exam - Vital signs Vitals: Temp Pulse Resp BP Pulse Ox 98.4 F 83 18 147/53 H 100 12/07/18 15:06 12/07/18 15:06 12/07/18 15:06 12/07/18 15:06 12/07/18 15:06 - Abdominal Tenderness: Tender - Lower pelvic tenderness Course - Vital Signs Vital signs: Temp Pulse Resp BP Pulse Ox 98.4 F 83 18 147/53 H 100 12/07/18 15:06 12/07/18 15:06 12/07/18 15:06 12/07/18 15:06 12/07/18 15:06 Doctor's Discharge - Discharge Referrals: LINETTE GALVAN DO [Primary Care Provider] - Follow up as needed
[2018-12-07 17:54] LABS: ABSOLUTE BASOPHILS # (AUTO) 0.1 10^3/uL (0.0-0.2); ABSOLUTE EOSINOPHILS # (AUTO) 0.1 10^3/uL (0.0-0.6); ABSOLUTE LYMPHOCYTES (AUTO) 3.1 10^3/uL (0.5-4.7); ABSOLUTE MONOCYTES (AUTO) 0.6 10^3/uL (0.1-1.4); ABSOLUTE NEUT (AUTO) 4.7 10^3/uL (1.7-8.2); ABSOLUTE RETICS # 0.094 10^6/uL (0.028-0.122); BASOPHILS % (AUTO) 1.2 % (0-2); EOSINOPHILS % (AUTO) 0.8 % (0-6); HEMATOCRIT 30.4 % (36.0-47.0); HEMOGLOBIN 10.3 g/dL (12.0-15.5); LYMPHOCYTES % (AUTO) 36.1 % (13-45); MEAN CORPUSCULAR HEMOGLOBIN 31.9 pg (27.0-33.4); MEAN CORPUSCULAR HGB CONC 33.9 g/dL (32.0-36.0); MEAN CORPUSCULAR VOLUME 94 fl (80-97); MONOCYTES % (AUTO) 7.3 % (3-13); PLATELET COUNT 248 10^3/uL (150-450); RED BLOOD COUNT 3.22 10^6/uL (3.72-5.28); RED CELL DISTRIBUTION WIDTH 24.8 % (11.5-14.0); RETICULOCYTE COUNT (AUTO) 2.91 % (0.66-2.85); SEGMENTED NEUTROPHILS % (AUTO) 54.6 % (42-78); TOTAL CELLS COUNTED % (AUTO) 100 %; WHITE BLOOD COUNT 8.5 10^3/uL (4.0-10.5)
[2018-12-07 18:03] LABS: APPEARANCE,URINE CLEAR; BILIRUBIN,URINE NEGATIVE (NEGATIVE); COLOR,URINE YELLOW; GLUCOSE, URINE NEGATIVE (NEGATIVE); KETONES,URINE NEGATIVE (NEGATIVE); LEUKOCYTE ESTERASE,URINE NEGATIVE (NEGATIVE); NITRITE,URINE NEGATIVE (NEGATIVE); PROTEIN,URINE NEGATIVE (NEGATIVE); URINE SPECIFIC GRAVITY 1.011
[2018-12-07 18:14] LABS: ALANINE AMINOTRANSFERASE 20 U/L (9-52); ALBUMIN 4.7 g/dL (3.5-5.0); ALKALINE PHOSPHATASE 58 U/L (38-126); ANION GAP 9 (5-19); ASPARTATE AMINO TRANSFERASE 37 U/L (14-36); BILIRUBIN,DIRECT 0.5 mg/dL (0.0-0.4); BILIRUBIN,TOTAL 1.3 mg/dL (0.2-1.3); BLOOD UREA NITROGEN 7 mg/dL (7-20); CALCIUM 9.1 mg/dL (8.4-10.2); CARBON DIOXIDE 24 mmol/L (22-30); CHLORIDE 108 mmol/L (98-107); CREATINE KINASE 40 U/L (30-135); GLUCOSE 98 mg/dL (75-110); POTASSIUM 4.5 mmol/L (3.6-5.0); SODIUM 141.1 mmol/L (137-145); TOTAL PROTEIN 7.7 g/dL (6.3-8.2)
--- NOTE | 2018-12-07 18:24 | RADIOLOGY REPORT (SQ) ---
EXAM DESCRIPTION: U/S NON OB PEL TV W/DOPPLER COMPLETED DATE/TIME: 12/07/2018 6:09 pm REASON FOR STUDY: pelvic pain . LMP 11/29/2018 COMPARISON: None. TECHNIQUE: Grayscale images acquired of the pelvis via transvaginal approach and recorded on PACS. A dditional selected color Doppler and spectral images recorded. LIMITATIONS: None. FINDINGS: UTERUS: Measures 6.5 x 3.0 x 3.4 cm. No focal myometrial mass was seen. ENDOMETRIAL STRIPE: Measures 4.8 mm in double wall thickness. CERVIX: Measures 2.9 cm in length. RIGHT OVARY AND DOPPLER: The right ovary measures 2.6 x 1.1 x 2.9 cm. Flow by Doppler was shown to t he right ovary. Small follicles are noted. LEFT OVARY AND DOPPLER: The left ovary measures 5.3 x 3.2 x 4.7 cm. Flow by Doppler was shown to the left ovary. There is a 4.3 x 3.0 x 3.6 cm heterogeneous hypoechoic lesion, suggestive of a hemorrha gic cyst. FREE FLUID: None noted. IMPRESSION: 4.3 cm probable hemorrhagic cyst at the left ovary; follow up pelvic ultrasound in 6-12 weeks recommended to ensure resolution. Otherwise, no acute findings. TECHNICAL DOCUMENTATION: JOB ID: [id number]- All Rights Reserved Rev-11/22 Reading location - IP/workstation name: [email or web address]
[2018-12-07 18:26] LABS: ANISOCYTOSIS 3+; HOWELL-JOLLY BODIES PRESENT; OVALOCYTES 1+; PAPPENHEIMER BODIES PRESENT; PLATELET COMMENT ADEQUATE; POIKILOCYTOSIS 3+; POLYCHROMASIA 1+; SICKLE RED CELLS 1+; TARGET CELLS 2+
--- NOTE | 2018-12-07 19:13 | ER Document Report ---
ED General - General Chief Complaint: Pelvic Pain Stated Complaint: PELVIC PAIN Time Seen by Provider: 12/07/18 15:40 Primary Care Provider: LUISITO DODD DO [ACTIVE STAFF] - Follow up in 3-5 days LINETTE GALVAN DO [Primary Care Provider] - Follow up as needed BRUNA CORNELIUS MD [ACTIVE STAFF] - Follow up in 3-5 days Notes: Patient is a 28-year-old female with sickle cell disease [facility] a chief complaint of bilateral leg pain. She had her leg pain starting 5 days ago and about 4 days ago she had abdominal pain on her right pelvic side. She does report some nausea. She called Dr. Cornelius and he suggested she go to the emergency department if her pain gets worse. She states that she came in because he wanted to know what was going on. She denies any va ginal discharge. She states that her leg pain is her normal sickle cell pain. Her right lower pelvic pain prompted her to come to the emergency department. She denies any fever, body aches, chills, vomiting, or diarrhea. TRAVEL OUTSIDE OF THE [place] IN LAST 30 DAYS: No - Related Data Allergies/Adverse Reactions: ceftriaxone sodium [From Rocephin] Allergy (Verified 10/20/18 08:49) Cephalosporins Allergy (Verified 10/20/18 08:49) milk [Milk] Allergy (Verified 10/20/18 08:49) Shellfish * [Shellfish] Allergy (Verified 10/20/18 08:49) wheat [Wheat] Allergy (Verified 10/20/18 08:49) Past Medical History - General Information source: Patient - Social History Smoking Status: Unknown if Ever Smoked Chew tobacco use (# tins/day): No Frequency of alcohol use: None Drug Abuse: None Family History: DM, Malignancy - Brother with Hodgkin's lymphoma. Maternal grandfather with lung cancer., Other - sickle trait in Mother and Father Patient has suicidal ideation: No Patient has homicidal ideation: No - Past Medical History Cardiac Medical History: Reports: Hx Hypertension, Hx Heart Murmur Denies: Hx Coronary Artery Disease, Hx Heart Attack Pulmonary Medical History: Reports: Hx Asthma, Hx Pneumonia - 2017 Denies: Hx Bronchitis, Hx COPD, Hx Tuberculosis Neurological Medical History: Reports: Hx Migraine, Hx Seizures - HX OF. NO MEDICATIONS. Denies: Hx Cerebrovascular Accident Endocrine Medical History: Denies: Hx Diabetes Mellitus Type 2, Hx Hyperthyroidism, Hx Hypothyroidism Renal/ Medical History: Denies: Hx Peritoneal Dialysis GI Medical History: Reports: Hx Gastroesophageal Reflux Disease Musculoskeletal Medical History: Denies Hx Arthritis, Denies Hx Fibromyalgia Skin Medical History: Reports Hx MRSA Psychiatric Medical History: Reports: Hx Depression Past Surgical History: Reports: Hx Adenoidectomy, Hx Cholecystectomy, Hx Oral Surgery - growth removed from under tongue, Hx Tonsillectomy, Other - Port placement 2 and removal for infection, multiple PICC lines, central l. Denies: Hx Hysterectomy, Hx Kidney (Renal Surgery), Hx Pacemaker - Immunizations Hx Diphtheria, Pertussis, Tetanus Vaccination: Yes Hx Pneumococcal Vaccination: 07/08/11 Review of Systems - Review of Systems Notes: REVIEW OF SYSTEMS: CONSTITUTIONAL : Denies recent illness. Denies recent unintentional weight loss. Denies fever, chills, or sweats. EENT: Denies eye, ear, throat, or mouth pain, discharge, or symptoms. Denies nasal or sinus congestion. CARDIOVASCULAR: Denies chest pain. RESPIRATORY: Denies shortness of breath, cough, congestion, difficulty breathing, or wheezing. GASTROINTESTINAL: See HPI GENITOURINARY: Denies difficulty urinating, burning, blood in urine, urgency or frequency. MUSCULOSKELETAL: Denies neck and back pain. Denies joint pain or swelling. SKIN: Denies rash, itchiness, or lesions HEMATOLOGIC : Denies easy bruising or bleeding. LYMPHATIC: Denies swollen, painful, enlarged glands. NEUROLOGICAL: Denies no numbness or tingling denies weakness. Denies headache. Denies altered mental status. Denies alteration in speech. PSYCHIATRIC: Denies stress, anxiety, alteration in sleep patterns, or depression. All other systems reviewed and negative. Physical Exam - Vital signs Vitals: Temp Pulse Resp BP Pulse Ox 98.4 F 83 18 147/53 H 100 12/07/18 15:06 12/07/18 15:12/07/18 15:06 12/07/18 15:12/07/18 15:06 Course - Re-evaluation Re-evalutation: 12/07/18 19:[address] Jung, the senior cyber intelligence analyst [employer]. I discussed the case with her, because I would like to let them know that patient is here for a sickle cell crisis. I will discuss findings of the patient's 4.3 cm ovarian cyst with the CERTIFIED NURSING ASSISTANT corporate vp [employer] after a pelvic exam is done. She is hematology and chemistries are normal at this time. Her urinalysis is unremarkable. Her gonorrhea and Chlamydia are both negative. 12/07/18 19:20 Pelvic exam was done with MARLIN Correa at bedside. No cervical motion tenderness noted on exam. Patient is tender on adnexal exam of the left side, consistent with her hemorrhagic ovarian cyst. 12/07/18 20:[address] Gutierrez, the CERTIFIED NURSING ASSISTANT on-call. At this time the patient will be watched, as there is no rupture of her ovary. Dr. gutierrez suggest not to treat her for bacterial vaginosis, as there are no WBCs noted on her wet mount. Patient is negative for gonorrhea and chlamydia. 12/07/18 20:39 I discussed with the patient to my conversation with Dr. gutierrez. The patient states that she does not need any surgery or need to stay for more tests, she would like to go home. She states that she feels her pain is under control. Return precautions were given. Verbal discharge instructions were given to the patient. They verbalized understanding. They are stable for discharge. - Vital Signs Vital signs: Temp Pulse Resp BP Pulse Ox 97.9 F 76 16 129/58 H 100 12/07/18 21:04 12/07/18 21:04 12/07/18 21:04 12/07/18 21:04 12/07/18 21:04 - Laboratory Result Diagrams: 12/07/18 17:40 12/07/18 17:40 Laboratory results interpreted by me: 12/07/18 12/07/18 12/07/18 17:20 17:40 17:40 RBC 3.22 L Hgb 10.3 L Hct 30.4 L RDW 24.8 H Retic Count (auto) 2.91 H Chloride 108 H Creatinine 0.49 L Direct Bilirubin 0.5 H AST 37 H Urine Urobilinogen 2.0 H Discharge - Discharge Clinical Impression: Hemorrhagic cyst of left ovary, Sickle cell pain crisis Condition: Stable Disposition: HOME, SELF-CARE Additional Instructions: You were seen today in the emergency department for a sickle cell crisis and lower abdominal pain. You have a cyst on your left ovary, causing your pain. According to the CERTIFIED NURSING ASSISTANT, the cyst will resolve. Please follow-up with CERTIFIED NURSING ASSISTANT in the next 3 to 5 days. Please follow-up with your senior cyber intelligence analyst in the next 3 to 5 days. You can take your oxycodone as needed for your pain. If you feel you are having worsening symptoms, or have any symptoms that are worrisome to you, please return to the emergency department. Referrals: LINETTE GALVAN DO [Primary Care Provider] - Follow up as needed BRUNA CORNELIUS MD [ACTIVE STAFF] - Follow up in 3-5 days LUISITO DODD DO [ACTIVE STAFF] - Follow up in 3-5 days
[2018-12-07 19:20] LABS: CHLAM PCR NOT DETECTED (NOT DETECT); GON PCR NOT DETECTED (NOT DETECT)
[2018-12-07 20:12] LABS: BACTERIA (WET MOUNT) 3+ BACTERIA SEEN; EPITHELIALS (WET MOUNT) 3+ EPITHELIALS SEEN; T.VAGINALIS (WET MOUNT) NO TRICHOMONAS SEEN; WBCS (WET MOUNT) FEW WBCS SEEN; YEAST (WET MOUNT) NO YEAST SEEN
[2018-12-07 21:05] VITALS: BP 129/58
== END 2018-12-07 21:11 | disposition home or self-care (01) ==
LOC: ER 14:54
DX: N83.202 Unspecified ovarian cyst, left side (principal); D57.00 Hb-SS disease with crisis, unspecified; M79.604 Pain in right leg; M79.605 Pain in left leg; R10.2 Pelvic and perineal pain; R11.0 Nausea; I10 Essential (primary) hypertension; J45.909 Unspecified asthma, uncomplicated; Z88.1 Allergy status to other antibiotic agents; Z91.011 Allergy to milk products; Z91.013 Allergy to seafood; Z91.018 Allergy to other foods
CPT/HCPCS: 96376; 99284; 96361; 96374; 96375; 36415; 87210; 82550; 84703; 85025; 85045; 80053; 81001; 87491; 87591; 76830; 93976; J1170; J2405; J7030

== ENCOUNTER 2018-12-10 12:30 | Outpatient (CLI) | payer MEDICAID ==
[2018-12-10] MEDS ORDERED: NORMAL SALINE 1000 ML 1,000 ML IV PRN (13:07)
[2018-12-10] MEDS ORDERED: ONDANSETRON HCL INJ/PF 4 MG/2 ML SDV IV PRN (13:08)
[2018-12-10] MEDS ORDERED: HYDROMORPHONE HCL INJ/PF 2 MG/ML AMPULE IV PRN (13:09)
[2018-12-10 13:40] VITALS: BP 131/65
== END 2018-12-10 14:32 | disposition home or self-care (01) ==
LOC: II 12:30 → 5TH 12:36 → II 14:32
PROVIDERS: ATTEND Internal Medicine
PROC: 3E0337Z Introduction of Electrolytic and Water Balance Substance into Peripheral Vein, Percutaneous Approach (ICD-10-PCS; principal; 2018-12-10)
PROC: 3E033GC Introduction of Other Therapeutic Substance into Peripheral Vein, Percutaneous Approach (ICD-10-PCS; 2018-12-10)
DX: D57.00 Hb-SS disease with crisis, unspecified (principal); E86.0 Dehydration; R11.0 Nausea; R52 Pain, unspecified
CPT/HCPCS: 96374; 96375; 96360; 96361; J1170; J2405

== ENCOUNTER 2018-12-12 11:45 | Outpatient (CLI) | payer MEDICAID ==
[2018-12-12] MEDS ORDERED: NORMAL SALINE 1000 ML 1,000 ML IV PRN (12:16)
[2018-12-12] MEDS ORDERED: ONDANSETRON HCL INJ/PF 4 MG/2 ML SDV IV PRN (12:18)
[2018-12-12] MEDS ORDERED: HYDROMORPHONE HCL INJ/PF 2 MG/ML AMPULE IV PRN (12:19)
[2018-12-12 12:57] VITALS: BP 130/66
== END 2018-12-12 13:48 | disposition home or self-care (01) ==
LOC: II 11:45 → 5TH 13:13 → II 13:48
PROVIDERS: ATTEND Internal Medicine
PROC: 3E033GC Introduction of Other Therapeutic Substance into Peripheral Vein, Percutaneous Approach (ICD-10-PCS; principal; 2018-12-12)
PROC: 3E0337Z Introduction of Electrolytic and Water Balance Substance into Peripheral Vein, Percutaneous Approach (ICD-10-PCS; 2018-12-12)
DX: D57.00 Hb-SS disease with crisis, unspecified (principal); E86.0 Dehydration; R11.0 Nausea; R52 Pain, unspecified
CPT/HCPCS: 96374; 96375; 96360; 96361; J1170; J2405

== ENCOUNTER 2018-12-13 13:51 | Emergency (ER) | payer MEDICAID ==
[2018-12-13] MEDS ORDERED: NORMAL SALINE 1000 ML 1,000 ML IV ONE (14:48)
[2018-12-13] MEDS ORDERED: HYDROMORPHONE HCL INJ/PF 2 MG/ML AMPULE IV ONE ×2 (14:59→17:01)
[2018-12-13] MEDS ORDERED: DIPHENHYDRAMINE HCL 50 MG/ML VIAL IV ONE (14:59)
[2018-12-13] MEDS ORDERED: ONDANSETRON HCL INJ/PF 4 MG/2 ML SDV IV ONE (14:59)
--- NOTE | 2018-12-13 15:01 | ER Document Report ---
ED Medical Screen (RME) - General Chief Complaint: Pain All Over Stated Complaint: BODY PAIN Time Seen by Provider: 12/13/18 14:47 Primary Care Provider: LINETTE GALVAN DO [Primary Care Provider] - Follow up as needed Notes: Patient is a 28-year-old female history of sickle cell disease reports to the emergency department for generalized body ache. Patient states she has lower back pain bilateral leg pain and bilateral arm pain. States this is her typical sickle cell crises pain. Patient's denying any chest pain, cough, congestion, fever. GENERAL: Alert, interacts well. No acute distress. LUNGS: Clear to auscultation bilaterally, no wheezes, rales, or rhonchi. No respiratory distress. I have greeted and performed a rapid initial assessment of this patient. A comprehensive ED assessment and evaluation of the patient, analysis of test results and completion of the medical decision making process will be conducted by additional ED providers. This medical record was dictated with voice recognizing software. There may be grammatical, syntax errors that are unintended. TRAVEL OUTSIDE OF THE [place] IN LAST 30 DAYS: No - Related Data Allergies/Adverse Reactions: ceftriaxone sodium [From Rocephin] Allergy (Verified 12/13/18 13:58) Cephalosporins Allergy (Verified 12/13/18 13:58) milk [Milk] Allergy (Verified 12/13/18 13:58) Shellfish * [Shellfish] Allergy (Verified 12/13/18 13:58) wheat [Wheat] Allergy (Verified 12/13/18 13:58) Past Medical History - Social History Frequency of alcohol use: Occasional Drug Abuse: None Family history: None, Reviewed & Not Pertinent - Past Medical History Cardiac Medical History: Reports: Hx Hypertension, Hx Heart Murmur Denies: Hx Coronary Artery Disease, Hx Heart Attack Pulmonary Medical History: Reports: Hx Asthma, Hx Pneumonia - 2017 Denies: Hx Bronchitis, Hx COPD, Hx Tuberculosis Neurological Medical History: Reports: Hx Migraine, Hx Seizures - HX OF. NO ME DICATIONS. Denies: Hx Cerebrovascular Accident Endocrine Medical History: Denies: Hx Diabetes Mellitus Type 2, Hx Hyperthyroidism, Hx Hypothyroidism Renal/ Medical History: Denies: Hx Peritoneal Dialysis GI Medical History: Reports: Hx Gastroesophageal Reflux Disease Musculoskeltal Medical History: Denies Hx Arthritis, Denies Hx Fibromyalgia Skin Medical History: Reports Hx MRSA Psychiatric Medical History: Reports: Hx Depression Past Surgical History: Reports: Hx Adenoidectomy, Hx Cholecystectomy, Hx Oral Surgery - growth removed from under tongue, Hx Tonsillectomy, Other - Port placement 2 and removal for infection, multiple PICC lines, central l. Denies: Hx Hysterectomy, Hx Kidney (Renal Surgery), Hx Pacemaker - Immunizations Hx Diphtheria, Pertussis, Tetanus Vaccination: Yes History of Influenza Vaccine for 04/2017 - 09/2017 Season: Yes Influenza Administration Date for 04/2017 - 09/2017 Season: 03/22/17 Physical Exam - Vital signs Vitals: Temp Pulse Resp BP Pulse Ox 98.4 F 89 15 124/67 98 12/13/18 14:03 12/13/18 14:03 12/13/18 14:03 12/13/18 14:03 12/13/18 14:03 Course - Vital Signs Vital signs: Temp Pulse Resp BP Pulse Ox 98.4 F 89 15 124/67 98 12/13/18 14:03 12/13/18 14:03 12/13/18 14:03 12/13/18 14:03 12/13/18 14:03 Doctor's Discharge - Discharge Referrals: LINETTE GALVAN, [Primary Care Provider] - Follow up as needed
[2018-12-13 15:54] LABS: ABSOLUTE BASOPHILS # (AUTO) 0.1 10^3/uL (0.0-0.2); ABSOLUTE EOSINOPHILS # (AUTO) 0.1 10^3/uL (0.0-0.6); ABSOLUTE LYMPHOCYTES (AUTO) 1.8 10^3/uL (0.5-4.7); ABSOLUTE MONOCYTES (AUTO) 0.4 10^3/uL (0.1-1.4); ABSOLUTE NEUT (AUTO) 5.7 10^3/uL (1.7-8.2); ABSOLUTE RETICS # 0.094 10^6/uL (0.028-0.122); BASOPHILS % (AUTO) 1.1 % (0-2); EOSINOPHILS % (AUTO) 1.1 % (0-6); HEMATOCRIT 28.3 % (36.0-47.0); HEMOGLOBIN 9.6 g/dL (12.0-15.5); LYMPHOCYTES % (AUTO) 22.4 % (13-45); MEAN CORPUSCULAR HEMOGLOBIN 32.7 pg (27.0-33.4); MEAN CORPUSCULAR VOLUME 96 fl (80-97); MONOCYTES % (AUTO) 5.1 % (3-13); PLATELET COUNT 544 10^3/uL (150-450); RED BLOOD COUNT 2.94 10^6/uL (3.72-5.28); RED CELL DISTRIBUTION WIDTH 25.6 % (11.5-14.0); RETICULOCYTE COUNT (AUTO) 3.19 % (0.66-2.85); SEGMENTED NEUTROPHILS % (AUTO) 70.3 % (42-78); TOTAL CELLS COUNTED % (AUTO) 100 %; WHITE BLOOD COUNT 8.1 10^3/uL (4.0-10.5)
[2018-12-13 16:02] LABS: ALANINE AMINOTRANSFERASE 24 U/L (9-52); ALBUMIN 4.4 g/dL (3.5-5.0); ALKALINE PHOSPHATASE 43 U/L (38-126); ANION GAP 8 (5-19); ASPARTATE AMINO TRANSFERASE 46 U/L (14-36); BILIRUBIN,DIRECT 0.5 mg/dL (0.0-0.4); BILIRUBIN,TOTAL 1.2 mg/dL (0.2-1.3); BLOOD UREA NITROGEN 6 mg/dL (7-20); CALCIUM 9.4 mg/dL (8.4-10.2); CARBON DIOXIDE 25 mmol/L (22-30); CHLORIDE 107 mmol/L (98-107); GLUCOSE 74 mg/dL (75-110); POTASSIUM 4.9 mmol/L (3.6-5.0); SODIUM 139.8 mmol/L (137-145); TOTAL PROTEIN 7.2 g/dL (6.3-8.2)
[2018-12-13 16:29] LABS: POLYCHROMASIA 2+
[2018-12-13 16:30] LABS: HOWELL-JOLLY BODIES PRESENT; PAPPENHEIMER BODIES PRESENT; PLATELET COMMENT ADEQUATE; POIKILOCYTOSIS 2+; SICKLE RED CELLS 1+; STOMATOCYTES SLIGHT; TARGET CELLS SLIGHT
[2018-12-13 16:42] LABS: APPEARANCE,URINE SLIGHTLY-CLOUDY; BILIRUBIN,URINE NEGATIVE (NEGATIVE); COLOR,URINE YELLOW; GLUCOSE, URINE NEGATIVE (NEGATIVE); KETONES,URINE NEGATIVE (NEGATIVE); LEUKOCYTE ESTERASE,URINE NEGATIVE (NEGATIVE); NITRITE,URINE NEGATIVE (NEGATIVE); PROTEIN,URINE NEGATIVE (NEGATIVE); URINE SPECIFIC GRAVITY 1.009; UROBILINOGEN,URINE NEGATIVE mg/dL (<2.0)
[2018-12-13] MEDS ORDERED: HYDROMORPHONE HCL INJ/PF 2 MG/ML AMPULE ONE (17:37)
--- NOTE | 2018-12-13 17:55 | ER Document Report ---
ED General Pain - General Chief Complaint: Pain All Over Stated Complaint: BODY PAIN Time Seen by Provider: 12/13/18 14:47 Primary Care Provider: LINETTE GALVAN DO [NO LOCAL MD] - Follow up as needed Notes: Patient with a history of sickle cell disease. Complaining of pain all over. Says this pain flared up about 9 days ago after she was diagnosed with an ovarian cyst. Her current pain intensified 3 days ago, on Saturday. She was an outpatient admission to this facility yesterday to receive medications and fluids under the care of Dr. Cornelius. Patient denies any fever. Denies any UTI symptoms. No cough or cold or chest congestion. Patient is on folate and hydroxyurea for treating her sickle cell disease. She also takes oxycodone 15 mg and Dilaudid 4 to 8 mg pills and is out of these medications. Hopes to see Dr. Corneluis Saturday for further medications extension. TRAVEL OUTSIDE OF THE [place] IN LAST 30 DAYS: No - Related Data Allergies/Adverse Reactions: ceftriaxone sodium [From Rocephin] Allergy (Verified 12/13/18 13:58) Cephalosporins Allergy (Verified 12/13/18 13:58) milk [Milk] Allergy (Verified 12/13/18 13:58) Shellfish * [Shellfish] Allergy (Verified 12/13/18 13:58) wheat [Wheat] Allergy (Verified 12/13/18 13:58) Past Medical History - Social History Smoking Status: Never Smoker Frequency of alcohol use: Occasional Drug Abuse: None Family History: Reviewed & Not Pertinent, DM, Malignancy - Brother with Hodgkin's lymphoma. Maternal grandfather with lung cancer., Other - sickle trait in Mother and Father Patient has suicidal ideation: No Patient has homicidal ideation: No - Past Medical History Cardiac Medical History: Reports: Hx Hypertension, Hx Heart Murmur Pulmonary Medical History: Reports: Hx Asthma, Hx Pneumonia - 2017 Neurological Medical History: Reports: Hx Migraine, Hx Seizures - HX OF. NO MEDICATIONS GI Medical History: Reports: Hx Gastroesophageal Reflux Disease Skin Medical History: Reports Hx MRSA Psychiatric Medical History: Reports: Hx Depression Past Surgical History: Reports: Hx Adenoidectomy, Hx Cholecystectomy, Hx Oral Surgery - growth removed from under tongue, Hx Tonsillectomy, Other - Port placement 2 and removal for infection, multiple PICC lines, central l - Immunizations Hx Diphtheria, Pertussis, Tetanus Vaccination: Yes Hx Pneumococcal Vaccination: 07/08/11 Review of Systems - Review of Systems Notes: REVIEW OF SYSTEMS: CONSTITUTIONAL : Denies fever. Complains of generalized pain all over with no one specific site worse than others. Has no indications of infection anywhere. EENT: Denies eye, ear, nose or mouth or throat pain or other symptoms. CARDIOVASCULAR: Denies chest pain any different than previous chest pains from her sickle cell disease.. RESPIRATORY: Denies cough, chest congestion, or shortness of breath. GASTROINTESTINAL: Generalized abdominal pain but no nausea, vomiting, or diarrhea. GENITOURINARY: Denies difficulty or painful urinating, urinary frequency, blood in urine. MUSCULOSKELETAL: Has generalized back pain.. Denies joint pain or swelling. SKIN: Denies rash or skin lesions. NEUROLOGICAL: Denies LOC or altered mental status. Denies sensory loss or motor deficits. ALL OTHER SYSTEMS REVIEWED AND NEGATIVE. Physical Exam - Vital signs Vitals: Temp Pulse Resp BP Pulse Ox 98.4 F 89 15 124/67 98 12/13/18 14:03 12/13/18 14:03 12/13/18 14:03 12/13/18 14:03 12/13/18 14:03 Interpretation: Normal Notes: PHYSICAL EXAMINATION: GENERAL: Well-appearing, in no acute distress. Anxious. Vital signs are all normal. Afebrile. HEAD: Atraumatic, normocephalic. EYES: Pupils equal round and reactive to light, extraocular movements intact. ENT: oropharynx clear without exudates. Moist mucous membranes. NECK: Normal range of motion, supple. LUNGS: Breath sounds clear and equal bilaterally. HEART: Regular rate and rhythm without murmurs. ABDOMEN: Soft, nontender. No guarding or rebound. No masses. BACK: No tenderness throughout entire back. EXTREMITIES: Normal range of motion without pain. NEUROLOGICAL: Normal speech, normal gait. Normal sensory, motor, and reflex exams. Awake, alert, and oriented x3. Cranial nerves normal. PSYCH: Normal mood, normal affect. SKIN: Warm, dry, no rashes. Course - Re-evaluation Re-evalutation: 12/13/18 18:33 Patient received a liter of fluids. Since her objective was to treat her pain and to find a source for her medications until she can see and talk with Dr. Cornelius I agreed to write the patient a prescription for 8 oxycodone 15 mg and 4 8 Dilaudid 4 mg, with the intent of these 2 prescriptions will last her for pain control until Saturday. Labs are unremarkable. Patient's hemoglobin is 9.6 which she says is good for her. Reticulocyte count is 3% plus. Patient is agreeable with this plan. - Vital Signs Vital signs: Temp Pulse Resp BP Pulse Ox 97.9 F 84 15 120/63 100 12/13/18 18:13 12/13/18 18:13 12/13/18 14:03 12/13/18 18:13 12/13/18 18:13 - Laboratory Result Diagrams: 12/13/18 15:11 12/13/18 15:11 Laboratory results interpreted by me: 12/13/18 12/13/18 15:11 15:11 RBC 2.94 L Hgb 9.6 L Hct 28.3 L RDW 25.6 H Plt Count 544 H Retic Count (auto) 3.19 H BUN 6 L Glucose 74 L Direct Bilirubin 0.5 H AST 46 H Discharge - Discharge Clinical Impression: Sickle cell disease, Generalized pain Condition: Stable Disposition: HOME, SELF-CARE Additional Instructions: Sickle Cell Crisis You have "sickle cell crisis." Sickle cell disease is caused by abnormal hemoglobin. This hemoglobin can deform red blood cells into a sickle shape. These abnormal blood cells can block blood vessels. This causes the pain of sickle cell crisis. Sickle cell crisis can occur any time. But attacks are more likely with acute infection, dehydration, or altitude change. A crisis usually causes pain in the legs, back, abdomen, and chest. Sometimes the pain may ease and return later. The usual treatment is oxygen, pain medication, IV fluids, and treatment of infection. Attacks may take a couple of days to resolve. Return if the pain becomes more severe, or if there are new symptoms. Intravenous (IV) Fluids As part of your care today, you received intravenous (IV) fluids. IV fluids are administered to patients who are dehydrated or to those who have certain chemical (electrolyte) abnormalities that need correcting. Pain Medication Injection You have received an injection of a pain medication. You should experience significant pain relief within 45 minutes. This drug is a narcotic -- it will impair your judgement, slow your reaction time and make you sleepy (as well as relieve your pain). Narcotics also can cause nausea. You should not drive, work with machinery, or perform any task requiring mental alertness until all effects of the medication are gone -- six to eight hours. Do not take any alcohol, or sedatives, and do not take any other medication without checking with your physician. Antinausea Medication You have been given a medication to suppress nausea and vomiting. This type of medication can be given as a shot, pill, or suppository. It will usually last for many hours. Pills and shots usually last six to eight hours, suppositories last about 12 hours. For the typical illness, only one or two doses of the medication may be necessary. Mild lightheadedness may occur. This type of medicine can cause drowsiness. Do not drive or operate dangerous machinery while under its influence. Do not mix with alcohol. See your doctor at once if you have muscle spasms or tightness, or uncontrollable motions (particularly of the neck, mouth, or jaw). Persistent vomiting or severe lightheadedness should also be evaluated by the physician. Oral Narcotic Medication You have been given a prescription for pain control. This medication is a narcotic. It's best taken with food, as nausea can result if taken on an empty stomach. Don't operate machinery or drive within six hours of taking this medication. Do not combine this medicine with alcohol, or with any medication which can cause sedation (such as cold tablets or sleeping pills) unless you get permission from the physician. Narcotics tend to cause constipation. If possible, drink plenty of fluids and eat a diet high in fiber and fruits. FOLLOW-UP CARE: If you have been referred to a physician for follow-up care, call the physicians office for an appointment as you were instructed or within the next two days. If you experience worsening or a significant change in your symptoms, notify the physician immediately or return to the Emergency Department at any time for re-evaluation. Prescriptions: Oxycodone HCl 15 mg PO Q4HP PRN #8 tablet PRN Reason: Hydromorphone HCl [Dilaudid] 4 mg PO Q6HP PRN #8 tablet PRN Reason: Referrals: LINETTE GALVAN, [NO LOCAL MD] - Follow up as needed
[2018-12-13 18:18] VITALS: BP 120/63
== END 2018-12-13 18:17 | disposition home or self-care (01) ==
LOC: ER 13:51
DX: D57.1 Sickle-cell disease without crisis (principal); M79.10 Myalgia, unspecified site; Z88.1 Allergy status to other antibiotic agents; Z91.011 Allergy to milk products; Z91.013 Allergy to seafood
CPT/HCPCS: 96376; 99283; 96361; 96374; 96375; 36415; 85025; 81025; 85045; 80053; 81001; J1200; J1170; J2405; J7030

== ENCOUNTER 2018-12-15 10:12 | Outpatient (CLI) | payer MEDICAID ==
[2018-12-15] MEDS ORDERED: ONDANSETRON HCL INJ/PF 4 MG/2 ML SDV IV PRN (10:43)
[2018-12-15] MEDS ORDERED: NORMAL SALINE 1000 ML @ AS DIRECTED IV PRN (10:43)
[2018-12-15] MEDS: HYDROMORPHONE HCL INJ/PF 2 MG/ML AMPULE IV PRN ×2 (11:59→13:00)
[2018-12-15 13:31] VITALS: BP 119/67
[2018-12-15] MEDS ORDERED: HYDROMORPHONE HCL INJ/PF 2 MG/ML AMPULE IV ONE (13:40)
== END 2018-12-15 14:30 | disposition home or self-care (01) ==
LOC: II 10:12 → 4N 10:14 → II 14:30
PROVIDERS: ATTEND Internal Medicine
PROC: 3E0337Z Introduction of Electrolytic and Water Balance Substance into Peripheral Vein, Percutaneous Approach (ICD-10-PCS; principal; 2018-12-15)
PROC: 3E033GC Introduction of Other Therapeutic Substance into Peripheral Vein, Percutaneous Approach (ICD-10-PCS; 2018-12-15)
DX: D57.00 Hb-SS disease with crisis, unspecified (principal); E86.0 Dehydration; R11.0 Nausea; R52 Pain, unspecified
CPT/HCPCS: J1170; J2405; J7030; 96361; 96374; 96375

== ENCOUNTER 2018-12-16 10:00 | Outpatient (CLI) | payer MEDICAID ==
[2018-12-16] MEDS ORDERED: NORMAL SALINE 1000 ML 2,000 ML IV PRN (10:22)
[2018-12-16] MEDS ORDERED: ONDANSETRON HCL INJ/PF 4 MG/2 ML SDV IV PRN (10:23)
[2018-12-16 10:58] VITALS: BP 132/72
[2018-12-16] MEDS ORDERED: HYDROMORPHONE HCL INJ/PF 2 MG/ML AMPULE IV ONE (11:00)
== END 2018-12-16 14:15 | disposition home or self-care (01) ==
LOC: II 10:00 → 5TH 10:05 → II 14:15
PROVIDERS: ATTEND Internal Medicine
PROC: 3E033GC Introduction of Other Therapeutic Substance into Peripheral Vein, Percutaneous Approach (ICD-10-PCS; principal; 2018-12-16)
PROC: 3E0337Z Introduction of Electrolytic and Water Balance Substance into Peripheral Vein, Percutaneous Approach (ICD-10-PCS; 2018-12-16)
DX: D57.00 Hb-SS disease with crisis, unspecified (principal); E86.0 Dehydration; R11.0 Nausea; R52 Pain, unspecified
CPT/HCPCS: 96375; 96360; 96361; J1170; J2405; 96374

== ENCOUNTER 2018-12-17 12:58 | Outpatient (CLI) | payer MEDICAID ==
[~2018-12-17 12:58] MED LIST changes: -NORMAL SALINE 1000 ML 1,000 ML IV PRN; +NORMAL SALINE 1000 ML 2,000 ML IV PRN
[2018-12-17 14:02] VITALS: BP 115/62
== END 2018-12-17 16:33 | disposition home or self-care (01) ==
LOC: II 12:58 → 5TH 13:05 → II 16:33
PROVIDERS: ATTEND Internal Medicine
PROC: 3E033GC Introduction of Other Therapeutic Substance into Peripheral Vein, Percutaneous Approach (ICD-10-PCS; principal; 2018-12-17)
PROC: 3E0337Z Introduction of Electrolytic and Water Balance Substance into Peripheral Vein, Percutaneous Approach (ICD-10-PCS; 2018-12-17)
DX: D57.00 Hb-SS disease with crisis, unspecified (principal); E86.0 Dehydration; R11.0 Nausea; R52 Pain, unspecified
CPT/HCPCS: 96374; 96375; 96361; J1170; J2405; 96360

== ENCOUNTER 2018-12-18 07:52 | Outpatient (CLI) | payer MEDICAID ==
[2018-12-18 08:08] VITALS: BP 118/61
== END 2018-12-18 12:37 | disposition home or self-care (01) ==
LOC: II 07:52 → 5TH 07:55 → II 12:37
PROVIDERS: ATTEND Internal Medicine
PROC: 3E033GC Introduction of Other Therapeutic Substance into Peripheral Vein, Percutaneous Approach (ICD-10-PCS; principal; 2018-12-18)
PROC: 3E0337Z Introduction of Electrolytic and Water Balance Substance into Peripheral Vein, Percutaneous Approach (ICD-10-PCS; 2018-12-18)
DX: D57.00 Hb-SS disease with crisis, unspecified (principal); E86.0 Dehydration; R11.0 Nausea; R52 Pain, unspecified
CPT/HCPCS: 96374; 96375; 96361; J1170; J2405; 96360

== ENCOUNTER 2018-12-22 12:55 | Observation (INO) | payer MEDICAID ==
[2018-12-22] MEDS ORDERED: ONDANSETRON HCL INJ/PF 4 MG/2 ML SDV IV PRN (13:43)
[2018-12-22] MEDS ORDERED: HYDROMORPHONE HCL INJ/PF 2 MG/ML AMPULE IV PRN (13:44)
[2018-12-22] MEDS: NORMAL SALINE 1000 ML 2,000 ML IV PRN ×2 (14:17→17:24)
[2018-12-22 16:06] VITALS: BP 135/74
[2018-12-22] MEDS ORDERED: DIPHENHYDRAMINE HCL 25 MG CAPSULE PO ONE (17:00)
[2018-12-22] MEDS ORDERED: DIPHENHYDRAMINE HCL 25 MG CAPSULE ONE (17:50)
== END 2018-12-22 18:55 | disposition home or self-care (01) ==
LOC: II 12:55 → 2N 13:07 → II 13:13 → 2N 18:55
PROVIDERS: ADMIT Internal Medicine; ATTEND Internal Medicine
PROC: 3E033GC Introduction of Other Therapeutic Substance into Peripheral Vein, Percutaneous Approach (ICD-10-PCS; principal; 2018-12-22)
PROC: 3E0337Z Introduction of Electrolytic and Water Balance Substance into Peripheral Vein, Percutaneous Approach (ICD-10-PCS; 2018-12-22)
DX: D57.00 Hb-SS disease with crisis, unspecified (principal); E86.0 Dehydration; R11.0 Nausea; R52 Pain, unspecified
CPT/HCPCS: G0378; G0379; J3490; J1170; J2405; J7030

== ENCOUNTER 2018-12-24 09:02 | Outpatient (CLI) | payer MEDICAID ==
[2018-12-24 09:28] VITALS: BP 125/90
== END 2018-12-24 12:16 | disposition home or self-care (01) ==
LOC: II 09:02 → 5TH 09:04 → II 12:16
PROVIDERS: ATTEND Internal Medicine
PROC: 3E0337Z Introduction of Electrolytic and Water Balance Substance into Peripheral Vein, Percutaneous Approach (ICD-10-PCS; principal; 2018-12-24)
PROC: 3E033GC Introduction of Other Therapeutic Substance into Peripheral Vein, Percutaneous Approach (ICD-10-PCS; 2018-12-24)
DX: D57.00 Hb-SS disease with crisis, unspecified (principal); E86.0 Dehydration; R11.0 Nausea; R52 Pain, unspecified
CPT/HCPCS: 96374; 96375; 96361; J1170; J2405; 96360

== ENCOUNTER 2018-12-25 09:08 | Outpatient (CLI) | payer MEDICAID ==
[2018-12-25 09:28] VITALS: BP 118/57
== END 2018-12-25 12:30 | disposition home or self-care (01) ==
LOC: II 09:08 → 5TH 09:10 → II 12:30
PROVIDERS: ATTEND Internal Medicine
PROC: 3E033GC Introduction of Other Therapeutic Substance into Peripheral Vein, Percutaneous Approach (ICD-10-PCS; principal; 2018-12-25)
PROC: 3E0337Z Introduction of Electrolytic and Water Balance Substance into Peripheral Vein, Percutaneous Approach (ICD-10-PCS; 2018-12-25)
DX: D57.00 Hb-SS disease with crisis, unspecified (principal); E86.0 Dehydration; R11.0 Nausea; R52 Pain, unspecified
CPT/HCPCS: 96374; 96375; 96361; J1170; J2405; 96360

== ENCOUNTER 2018-12-26 09:02 | Outpatient (CLI) | payer MEDICAID ==
[2018-12-26 09:31] VITALS: BP 122/62
== END 2018-12-26 12:17 | disposition home or self-care (01) ==
LOC: 5TH 09:02 → II 09:02
PROVIDERS: ATTEND Internal Medicine
PROC: 3E0437Z Introduction of Electrolytic and Water Balance Substance into Central Vein, Percutaneous Approach (ICD-10-PCS; principal; 2018-12-26)
PROC: 3E033GC Introduction of Other Therapeutic Substance into Peripheral Vein, Percutaneous Approach (ICD-10-PCS; 2018-12-26)
DX: D57.00 Hb-SS disease with crisis, unspecified (principal); E86.0 Dehydration; R11.0 Nausea; R52 Pain, unspecified
CPT/HCPCS: 96374; 96375; 96361; J1170; J2405; 96360

== ENCOUNTER 2019-01-01 10:23 | Outpatient (CLI) | payer MEDICAID ==
[2019-01-01] MEDS ORDERED: NORMAL SALINE 1000 ML 1,000 ML IV PRN (10:36)
[2019-01-01] MEDS ORDERED: HYDROMORPHONE HCL INJ/PF 2 MG/ML AMPULE IV PRN (10:37)
[2019-01-01] MEDS ORDERED: ONDANSETRON HCL INJ/PF 4 MG/2 ML SDV IV PRN (10:37)
[2019-01-01 11:15] VITALS: BP 120/62
== END 2019-01-01 13:29 | disposition home or self-care (01) ==
LOC: II 10:23 → 5TH 10:24 → II 13:29
PROVIDERS: ATTEND Internal Medicine
DX: D57.00 Hb-SS disease with crisis, unspecified (principal); E86.0 Dehydration; R11.0 Nausea; R52 Pain, unspecified
CPT/HCPCS: 96374; 96375; 96360; 96361; J1170; J2405

== ENCOUNTER 2019-01-06 12:10 | Outpatient (CLI) | payer MEDICAID ==
[2019-01-06 12:25] VITALS: BP 103/75
[2019-01-06] MEDS ORDERED: NORMAL SALINE 1000 ML 1,000 ML IV PRN (12:28)
[2019-01-06] MEDS ORDERED: ONDANSETRON HCL INJ/PF 4 MG/2 ML SDV IV PRN (12:29)
[2019-01-06] MEDS ORDERED: HYDROMORPHONE HCL INJ/PF 2 MG/ML AMPULE IV PRN (12:30)
== END 2019-01-06 14:11 | disposition home or self-care (01) ==
LOC: II 12:10 → 5TH 12:12 → II 14:11
PROVIDERS: ATTEND Internal Medicine
PROC: 3E033GC Introduction of Other Therapeutic Substance into Peripheral Vein, Percutaneous Approach (ICD-10-PCS; principal; 2019-01-06)
PROC: 3E0337Z Introduction of Electrolytic and Water Balance Substance into Peripheral Vein, Percutaneous Approach (ICD-10-PCS; 2019-01-06)
DX: D57.00 Hb-SS disease with crisis, unspecified (principal); E86.0 Dehydration; R11.0 Nausea; R52 Pain, unspecified
CPT/HCPCS: 96374; 96375; 96361; J1170; J2405; 96360

== ENCOUNTER 2019-01-09 13:04 | Outpatient (CLI) | payer MEDICAID ==
[2019-01-09] MEDS ORDERED: ONDANSETRON HCL INJ/PF 4 MG/2 ML SDV IV PRN (13:07)
[2019-01-09] MEDS ORDERED: NORMAL SALINE 1000 ML 1,000 ML IV PRN (13:07)
[2019-01-09] MEDS ORDERED: HYDROMORPHONE HCL INJ/PF 2 MG/ML AMPULE IV PRN (13:09)
[2019-01-09 13:34] VITALS: BP 120/63
== END 2019-01-09 15:26 | disposition home or self-care (01) ==
LOC: II 13:04 → 5TH 13:06 → II 15:26
PROVIDERS: ATTEND Internal Medicine
PROC: 3E0337Z Introduction of Electrolytic and Water Balance Substance into Peripheral Vein, Percutaneous Approach (ICD-10-PCS; principal; 2019-01-09)
PROC: 3E033GC Introduction of Other Therapeutic Substance into Peripheral Vein, Percutaneous Approach (ICD-10-PCS; 2019-01-09)
DX: D57.00 Hb-SS disease with crisis, unspecified (principal); E86.0 Dehydration; R11.0 Nausea; R52 Pain, unspecified
CPT/HCPCS: 96374; 96375; 96361; J1170; J2405; 96360

== ENCOUNTER 2019-01-12 10:16 | Emergency (ER) | payer MEDICAID ==
[2019-01-12] MEDS ORDERED: NORMAL SALINE 1000 ML 1,000 ML IV ONE (11:01)
--- NOTE | 2019-01-12 11:03 | ER Document Report ---
ED Medical Screen (RME) - General Chief Complaint: Sickle Cell Crisis Stated Complaint: PAIN ALL OVER Time Seen by Provider: 01/12/19 11:00 Mode of Arrival: Ambulatory Information source: Patient Notes: 28-year-old female presents to ED for complaint of generalized sickle cell pain. She is has a history of sickle cell anemia migraines and heart murmur. She is alert oriented respirations regular and unlabored she states she is a former smoker does not smoke anymore occasionally drinks and lives with her mother. She is alert oriented respirations regular and unlabored speaking in full s entences walks with even steady gait. I have greeted and performed a rapid initial assessment of this patient. A comprehensive ED assessment and evaluation of the patient, analysis of test results and completion of medical decision making process will be conducted by an additional ED providers. Dictation of this chart was performed using voice recognition software; therefore, there may be some unintended grammatical errors. TRAVEL OUTSIDE OF THE [place] IN LAST 30 DAYS: No - Related Data Allergies/Adverse Reactions: ceftriaxone sodium [From Rocephin] Allergy (Verified 01/12/19 10:22) Cephalosporins Allergy (Verified 01/12/19 10:22) milk [Milk] Allergy (Verified 01/12/19 10:22) Shellfish * [Shellfish] Allergy (Verified 01/12/19 10:22) wheat [Wheat] Allergy (Verified 01/12/19 10:22) Past Medical History - Social History Family history: None, Reviewed & Not Pertinent - Past Medical History Cardiac Medical History: Reports: Hx Hypertension, Hx Heart Murmur Denies: Hx Coronary Artery Disease, Hx Heart Attack Pulmonary Medical History: Reports: Hx Asthma, Hx Pneumonia - 2017 Denies: Hx Bronchitis, Hx COPD, Hx Tuberculosis Neurological Medical History: Reports: Hx Migraine, Hx Seizures - HX OF. NO MEDICATIONS. Denies: Hx Cerebrovascular Accident Endocrine Medical History: Denies: Hx Diabetes Mellitus Type 2, Hx Hypert hyroidism, Hx Hypothyroidism Renal/ Medical History: Denies: Hx Peritoneal Dialysis GI Medical History: Reports: Hx Gastroesophageal Reflux Disease Musculoskeltal Medical History: Denies Hx Arthritis, Denies Hx Fibromyalgia Skin Medical History: Reports Hx MRSA Psychiatric Medical History: Reports: Hx Depression Past Surgical History: Reports: Hx Adenoidectomy, Hx Cholecystectomy, Hx Oral Surgery - growth removed from under tongue, Hx Tonsillectomy, Other - Port placement 2 and removal for infection, multiple PICC lines, central l. Denies: Hx Hysterectomy, Hx Kidney (Renal Surgery), Hx Pacemaker - Immunizations Hx Diphtheria, Pertussis, Tetanus Vaccination: Yes History of Influenza Vaccine for 04/2017 - 09/2017 Season: Yes Influenza Administration Date for 04/2017 - 09/2017 Season: 03/22/17 Physical Exam - Vital signs Vitals: Temp Pulse Resp BP Pulse Ox 98.3 F 64 18 125/61 92 01/12/19 10:46 01/12/19 10:46 01/12/19 10:46 01/12/19 10:46 01/12/19 10:46 Course - Vital Signs Vital signs: Temp Pulse Resp BP Pulse Ox 98.3 F 64 18 125/61 92 01/12/19 10:46 01/12/19 10:46 01/12/19 10:46 01/12/19 10:46 01/12/19 10:46
[2019-01-12 11:49] LABS: ABSOLUTE RETICS # 0.094 10^6/uL (0.028-0.122); HEMOGLOBIN 10.4 g/dL (12.0-15.5); MEAN CORPUSCULAR HEMOGLOBIN 35.1 pg (27.0-33.4); MEAN CORPUSCULAR HGB CONC 34.6 g/dL (32.0-36.0); PLATELET COUNT 363 10^3/uL (150-450); RED BLOOD COUNT 2.96 10^6/uL (3.72-5.28); RED CELL DISTRIBUTION WIDTH 23.7 % (11.5-14.0); RETICULOCYTE COUNT (AUTO) 3.17 % (0.66-2.85); WHITE BLOOD COUNT 7.9 10^3/uL (4.0-10.5)
[2019-01-12 12:02] LABS: COLOR,URINE STRAW
[2019-01-12 12:03] LABS: APPEARANCE,URINE CLEAR; BILIRUBIN,URINE NEGATIVE (NEGATIVE); GLUCOSE, URINE NEGATIVE (NEGATIVE); KETONES,URINE NEGATIVE (NEGATIVE); LEUKOCYTE ESTERASE,URINE NEGATIVE (NEGATIVE); NITRITE,URINE NEGATIVE (NEGATIVE); PROTEIN,URINE NEGATIVE (NEGATIVE); URINE SPECIFIC GRAVITY 1.009
[2019-01-12 12:05] LABS: ALANINE AMINOTRANSFERASE 25 U/L (9-52); ALBUMIN 4.9 g/dL (3.5-5.0); ALKALINE PHOSPHATASE 55 U/L (38-126); ANION GAP 7 (5-19); ASPARTATE AMINO TRANSFERASE 42 U/L (14-36); BILIRUBIN,DIRECT 0.3 mg/dL (0.0-0.4); BILIRUBIN,TOTAL 1.8 mg/dL (0.2-1.3); BLOOD UREA NITROGEN 7 mg/dL (7-20); CALCIUM 9.5 mg/dL (8.4-10.2); CARBON DIOXIDE 25 mmol/L (22-30); CHLORIDE 108 mmol/L (98-107); GLUCOSE 97 mg/dL (75-110); POTASSIUM 4.6 mmol/L (3.6-5.0); SODIUM 140.1 mmol/L (137-145); TOTAL PROTEIN 7.9 g/dL (6.3-8.2)
[2019-01-12 12:25] LABS: ABSOLUTE LYMPHOCYTES# (MANUAL) 2.8 10^3/uL (0.5-4.7); ABSOLUTE MONOCYTES # (MANUAL) 0.6 10^3/uL (0.1-1.4); BASOPHILS % (MANUAL) 0 % (0-2); EOSINOPHILS % (MANUAL) 0 % (0-6); LYMPHOCYTES % (MANUAL) 36 % (13-45); MONOCYTES % (MANUAL) 7 % (3-13); SEGMENTED NEUTROPHILS % (MAN) 57 % (42-78); TOTAL CELLS COUNTED 100
[2019-01-12 12:28] LABS: ANISOCYTOSIS 3+; SICKLE RED CELLS 1+; TEAR DROP CELLS 1+
[2019-01-12 12:29] LABS: PLATELET COMMENT ADEQUATE; POIKILOCYTOSIS 2+; POLYCHROMASIA SLIGHT; TARGET CELLS 1+
[2019-01-12 12:31] LABS: MEAN CORPUSCULAR VOLUME 101 fl (80-97)
[2019-01-12] MEDS ORDERED: ONDANSETRON HCL INJ/PF 4 MG/2 ML SDV IV ONE (15:45)
[2019-01-12] MEDS ORDERED: HYDROMORPHONE HCL INJ/PF 2 MG/ML AMPULE IV ONE (15:45)
[2019-01-12] MEDS ORDERED: DIPHENHYDRAMINE HCL 50 MG/ML VIAL IV ONE (15:46)
--- NOTE | 2019-01-12 15:59 | ER Document Report ---
ED General - General Chief Complaint: Sickle Cell Crisis Stated Complaint: PAIN ALL OVER Time Seen by Provider: 01/12/19 11:00 Primary Care Provider: AMALIA OROZCO PA-C [Primary Care Provider] - Follow up as needed Mode of Arrival: Ambulatory Information source: Patient TRAVEL OUTSIDE OF THE [place] IN LAST 30 DAYS: No - HPI Patient complains to provider of: sickle cell crisis Onset: This morning - Pt. has h/o SCD with onset of generalized pain starting earlier today. She took her pain meds but only had minimal relief. She presents here for further evaluation - Related Data Allergies/Adverse Reactions: ceftriaxone sodium [From Rocephin] Allergy (Verified 01/12/19 10:22) Cephalosporins Allergy (Verified 01/12/19 10:22) milk [Milk] Allergy (Verified 01/12/19 10:22) Shellfish * [Shellfish] Allergy (Verified 01/12/19 10:22) wheat [Wheat] Allergy (Verified 01/12/19 10:22) Past Medical History - Social History Smoking Status: Former Smoker Chew tobacco use (# tins/day): No Frequency of alcohol use: Occasional Drug Abuse: None Family History: Reviewed & Not Pertinent, DM, Malignancy - Brother with Hodgkin's lymphoma. Maternal grandfather with lung cancer., Other - sickle t rait in Mother and Father Patient has suicidal ideation: No Patient has homicidal ideation: No - Past Medical History Cardiac Medical History: Reports: Hx Hypertension, Hx Heart Murmur Denies: Hx Coronary Artery Disease, Hx Heart Attack Pulmonary Medical History: Reports: Hx Asthma, Hx Pneumonia - 2016 Denies: Hx Bronchitis, Hx COPD, Hx Tuberculosis Neurological Medical History: Reports: Hx Migraine, Hx Seizures - HX OF. NO MEDICATIONS. Denies: Hx Cerebrovascular Accident Endocrine Medical History: Denies: Hx Diabetes Mellitus Type 2, Hx Hyperthyroidism, Hx Hypothyroidism Renal/ Medical History: Denies: Hx Peritoneal Dialysis GI Medical History: Reports: Hx Gastroesophageal Reflux Disease Musculoskeletal Medical History: Denies Hx Arthritis, Denies Hx Fibromyalgia Skin Medical History: Reports Hx MRSA Psychiatric Medical History: Reports: Hx Depression Past Surgical History: Reports: Hx Adenoidectomy, Hx Cholecystectomy, Hx Oral Surgery - growth removed from under tongue, Hx Tonsillectomy, Other - Port placement 2 and removal for infection, multiple PICC lines, central l. Denies: Hx Hysterectomy, Hx Kidney (Renal Surgery), Hx Pacemaker - Immunizations Hx Diphtheria, Pertussis, Tetanus Vaccination: Yes Hx Pneumococcal Vaccination: 07/08/11 Review of Systems - Review of Systems Constitutional: No symptoms reported EENT: No symptoms reported Cardiovascular: No symptoms reported Respiratory: No symptoms reported Gastrointestinal: No symptoms reported Musculoskeletal: See HPI, Joint pain Neurological/Psychological: No symptoms reported -: Yes All other systems reviewed and negative Physical Exam - Vital signs Vitals: Temp Pulse Resp BP Pulse Ox 98.3 F 64 18 125/61 92 01/12/19 10:46 01/12/19 10:46 01/12/19 10:46 01/12/19 10:46 01/12/19 10:46 - General General appearance: Alert In distress: Mild - HEENT Head: Normocephalic Mouth/Lips: Normal Mucous membranes: Normal Pharynx: Normal Neck: Normal - Respiratory Respiratory status: No respiratory distress Breath sounds: Normal - Cardiovascular Rhythm: Regular Heart sounds: Normal auscultation Murmur: No - Abdominal Inspection: Normal Tenderness: Nontender - Extremities General upper extremity: Normal inspection General lower extremity: Normal inspection - Neurological Neuro grossly intact: Yes Cognition: Normal Orientation: AAOx4 Course - Re-evaluation Re-evalutation: 01/12/19 17:49 pt feels much better after IVF and meds -- expressed desire to go home. Mother will pick her up - Vital Signs Vital signs: Temp Pulse Resp BP Pulse Ox 98.3 F 64 18 125/61 92 01/12/19 10:46 01/12/19 10:46 01/12/19 10:46 01/12/19 10:46 01/12/19 10:46 - Laboratory Result Diagrams: 01/12/19 11:15 01/12/19 11:15 Laboratory results interpreted by me: 01/12/19 01/12/19 01/12/19 11:15 11:15 11:15 RBC 2.96 L Hgb 10.4 L Hct 30.0 L MCV 101 H D MCH 35.1 H RDW 23.7 H Retic Count (auto) 3.17 H Chloride 108 H Creatinine 0.49 L Total Bilirubin 1.8 H AST 42 H Urine Urobilinogen 2.0 H Discharge - Discharge Clinical Impression: Sickle cell crisis Condition: Stable Disposition: HOME, SELF-CARE Additional Instructions: rest, continue current meds, return if worse Referrals: AMALIA OROZCO PA-C [Primary Care Provider] - Follow up as needed
[2019-01-12 18:35] VITALS: BP 116/59
== END 2019-01-12 18:35 | disposition home or self-care (01) ==
LOC: ER 10:16
DX: D57.00 Hb-SS disease with crisis, unspecified (principal); M25.50 Pain in unspecified joint; I10 Essential (primary) hypertension; J45.909 Unspecified asthma, uncomplicated; Z88.1 Allergy status to other antibiotic agents; Z91.011 Allergy to milk products; Z91.013 Allergy to seafood; Z91.018 Allergy to other foods; Z87.891 Personal history of nicotine dependence
CPT/HCPCS: 99283; 96361; 96374; 96375; 36415; 87086; 84702; 85025; 85045; 80053; 81001; J1200; J1170; J2405; J7030

== ENCOUNTER 2019-01-13 10:04 | Outpatient (CLI) | payer MEDICAID ==
[2019-01-13] MEDS ORDERED: NORMAL SALINE 1000 ML 1,000 ML IV PRN (10:12)
[2019-01-13] MEDS ORDERED: ONDANSETRON HCL INJ/PF 4 MG/2 ML SDV IV PRN (10:12)
[2019-01-13] MEDS ORDERED: HYDROMORPHONE HCL INJ/PF 2 MG/ML AMPULE IV PRN (10:13)
[2019-01-13 11:23] VITALS: BP 115/53
== END 2019-01-13 12:17 | disposition home or self-care (01) ==
LOC: II 10:04 → 5TH 10:07 → II 12:17
PROVIDERS: ATTEND Internal Medicine Hematology & Oncology
DX: D57.00 Hb-SS disease with crisis, unspecified (principal); R11.0 Nausea; R52 Pain, unspecified; E86.0 Dehydration
CPT/HCPCS: 96374; 96375; 96360; 96361; J1170; J2405

== ENCOUNTER 2019-01-14 12:21 | Outpatient (CLI) | payer MEDICAID ==
[2019-01-14] MEDS ORDERED: DIPHENHYDRAMINE HCL 50 MG in NORMAL SALINE 50 ML IV PRN (12:32)
[2019-01-14] MEDS ORDERED: NORMAL SALINE 1000 ML 1,000 ML IV PRN (12:32)
[2019-01-14] MEDS ORDERED: HYDROMORPHONE HCL INJ/PF 2 MG/ML AMPULE IV PRN (12:33)
[2019-01-14 12:54] VITALS: BP 118/61
== END 2019-01-14 14:46 | disposition home or self-care (01) ==
LOC: II 12:21 → 5TH 13:18 → II 14:46
PROVIDERS: ATTEND Internal Medicine Hematology & Oncology
PROC: 3E033NZ Introduction of Analgesics, Hypnotics, Sedatives into Peripheral Vein, Percutaneous Approach (ICD-10-PCS; principal; 2019-01-14)
PROC: 3E033GC Introduction of Other Therapeutic Substance into Peripheral Vein, Percutaneous Approach (ICD-10-PCS; 2019-01-14)
PROC: 3E0337Z Introduction of Electrolytic and Water Balance Substance into Peripheral Vein, Percutaneous Approach (ICD-10-PCS; 2019-01-14)
DX: D57.00 Hb-SS disease with crisis, unspecified (principal); E86.0 Dehydration; R11.0 Nausea; R52 Pain, unspecified
CPT/HCPCS: 96365; 96375; 96361; J1200; J1170; 96360; 96374

== ENCOUNTER 2019-01-29 12:57 | Outpatient (CLI) | payer MEDICAID ==
[~2019-01-29 12:57] MED LIST changes: +NORMAL SALINE 1000 ML 1,000 ML IV PRN; -NORMAL SALINE 1000 ML 2,000 ML IV PRN
[2019-01-29 14:15] VITALS: BP 128/76
== END 2019-01-29 15:44 | disposition home or self-care (01) ==
LOC: II 12:57 → 5TH 12:58 → II 15:44
PROVIDERS: ATTEND Internal Medicine
PROC: 3E033GC Introduction of Other Therapeutic Substance into Peripheral Vein, Percutaneous Approach (ICD-10-PCS; principal; 2019-01-29)
PROC: 3E033NZ Introduction of Analgesics, Hypnotics, Sedatives into Peripheral Vein, Percutaneous Approach (ICD-10-PCS; 2019-01-29)
PROC: 3E0337Z Introduction of Electrolytic and Water Balance Substance into Peripheral Vein, Percutaneous Approach (ICD-10-PCS; 2019-01-29)
DX: D57.00 Hb-SS disease with crisis, unspecified (principal); E86.0 Dehydration; R11.0 Nausea; R52 Pain, unspecified
CPT/HCPCS: 96374; 96375; 96361; J2405; 96360

== ENCOUNTER 2019-01-30 12:45 | Outpatient (CLI) | payer MEDICAID ==
[2019-01-30] MEDS ORDERED: ONDANSETRON HCL INJ/PF 4 MG/2 ML SDV IV PRN (12:50)
[2019-01-30] MEDS ORDERED: NORMAL SALINE 1000 ML 1,000 ML IV PRN (12:51)
[2019-01-30] MEDS ORDERED: HYDROMORPHONE HCL INJ/PF 2 MG/ML AMPULE IV PRN (12:52)
[2019-01-30 13:09] VITALS: BP 120/58
== END 2019-01-30 14:42 | disposition home or self-care (01) ==
LOC: II 12:45 → 5TH 12:48 → II 14:42
PROVIDERS: ATTEND Internal Medicine
PROC: 3E033GC Introduction of Other Therapeutic Substance into Peripheral Vein, Percutaneous Approach (ICD-10-PCS; principal; 2019-01-30)
PROC: 3E033NZ Introduction of Analgesics, Hypnotics, Sedatives into Peripheral Vein, Percutaneous Approach (ICD-10-PCS; 2019-01-30)
PROC: 3E0337Z Introduction of Electrolytic and Water Balance Substance into Peripheral Vein, Percutaneous Approach (ICD-10-PCS; 2019-01-30)
DX: D57.00 Hb-SS disease with crisis, unspecified (principal); E86.0 Dehydration; R11.0 Nausea; R52 Pain, unspecified
CPT/HCPCS: 96374; 96375; 96360; 96361; J1170; J2405

== ENCOUNTER 2019-02-02 12:08 | Outpatient (CLI) | payer MEDICAID ==
[2019-02-02] MEDS: NORMAL SALINE 1000 ML 1,000 ML IV PRN ×2 (12:30→13:19)
[2019-02-02] MEDS ORDERED: HYDROMORPHONE HCL INJ/PF 2 MG/ML AMPULE ONE (13:05)
[2019-02-02] MEDS ORDERED: ONDANSETRON HCL INJ/PF 4 MG/2 ML SDV IV PRN (13:06)
[2019-02-02] MEDS ORDERED: ONDANSETRON HCL INJ/PF 4 MG/2 ML SDV ONE (13:06)
[2019-02-02] MEDS ORDERED: HYDROMORPHONE HCL INJ/PF 2 MG/ML AMPULE IV PRN (13:07)
== END 2019-02-02 14:30 | disposition home or self-care (01) ==
LOC: II 12:08 → 2N 12:30 → II 14:30
PROVIDERS: ATTEND Internal Medicine Hematology & Oncology
PROC: 3E033NZ Introduction of Analgesics, Hypnotics, Sedatives into Peripheral Vein, Percutaneous Approach (ICD-10-PCS; principal; 2019-02-02)
PROC: 3E0337Z Introduction of Electrolytic and Water Balance Substance into Peripheral Vein, Percutaneous Approach (ICD-10-PCS; 2019-02-02)
PROC: 3E033GC Introduction of Other Therapeutic Substance into Peripheral Vein, Percutaneous Approach (ICD-10-PCS; 2019-02-02)
DX: D57.00 Hb-SS disease with crisis, unspecified (principal); E86.0 Dehydration; R11.0 Nausea; R52 Pain, unspecified
CPT/HCPCS: 96374; 96375; 96361; J1170; J2405; J7030

== ENCOUNTER 2019-02-05 10:07 | Outpatient (CLI) | payer MEDICAID ==
[2019-02-05 10:37] VITALS: BP 113/69
== END 2019-02-05 12:01 | disposition home or self-care (01) ==
LOC: II 10:07 → 5TH 10:09 → II 12:01
PROVIDERS: ATTEND Internal Medicine
PROC: 3E0337Z Introduction of Electrolytic and Water Balance Substance into Peripheral Vein, Percutaneous Approach (ICD-10-PCS; principal; 2019-02-05)
PROC: 3E033GC Introduction of Other Therapeutic Substance into Peripheral Vein, Percutaneous Approach (ICD-10-PCS; 2019-02-05)
PROC: 3E033NZ Introduction of Analgesics, Hypnotics, Sedatives into Peripheral Vein, Percutaneous Approach (ICD-10-PCS; 2019-02-05)
DX: D57.00 Hb-SS disease with crisis, unspecified (principal); E86.0 Dehydration; R11.0 Nausea; R52 Pain, unspecified
CPT/HCPCS: 96360; 96361; 96374; 96375

== ENCOUNTER 2019-02-12 11:09 | Outpatient (CLI) | payer MEDICAID ==
[2019-02-12] MEDS ORDERED: ONDANSETRON HCL INJ/PF 4 MG/2 ML SDV IV PRN (11:12)
[2019-02-12] MEDS ORDERED: NORMAL SALINE 1000 ML 1,000 ML IV PRN (11:13)
[2019-02-12] MEDS ORDERED: HYDROMORPHONE HCL INJ/PF 2 MG/ML AMPULE IV PRN (11:13)
[2019-02-12 11:21] VITALS: BP 123/65
== END 2019-02-12 12:52 | disposition home or self-care (01) ==
LOC: II 11:09 → 5TH 11:11 → II 12:52
PROVIDERS: ATTEND Internal Medicine
PROC: 3E0337Z Introduction of Electrolytic and Water Balance Substance into Peripheral Vein, Percutaneous Approach (ICD-10-PCS; principal; 2019-02-12)
PROC: 3E033GC Introduction of Other Therapeutic Substance into Peripheral Vein, Percutaneous Approach (ICD-10-PCS; 2019-02-12)
DX: D57.00 Hb-SS disease with crisis, unspecified (principal); E86.0 Dehydration; R11.0 Nausea; R52 Pain, unspecified
CPT/HCPCS: 96375; 96361; J1170; J2405; 96374

== ENCOUNTER 2019-02-13 10:47 | Outpatient (CLI) | payer MEDICAID ==
[2019-02-13] MEDS ORDERED: ONDANSETRON HCL INJ/PF 4 MG/2 ML SDV IV PRN (10:56)
[2019-02-13] MEDS ORDERED: NORMAL SALINE 1000 ML 1,000 ML IV PRN (10:57)
[2019-02-13] MEDS ORDERED: HYDROMORPHONE HCL INJ/PF 2 MG/ML AMPULE IV PRN (10:58)
[2019-02-13 10:59] VITALS: BP 108/56
== END 2019-02-13 12:25 | disposition home or self-care (01) ==
LOC: II 10:47 → 5TH 10:50 → II 12:25
PROVIDERS: ATTEND Internal Medicine
PROC: 3E0337Z Introduction of Electrolytic and Water Balance Substance into Peripheral Vein, Percutaneous Approach (ICD-10-PCS; principal; 2019-02-13)
PROC: 3E033GC Introduction of Other Therapeutic Substance into Peripheral Vein, Percutaneous Approach (ICD-10-PCS; 2019-02-13)
DX: D57.00 Hb-SS disease with crisis, unspecified (principal); E86.0 Dehydration; R11.0 Nausea; R52 Pain, unspecified
CPT/HCPCS: 96374; 96375; 96361; J1170; J2405; 96360

== ENCOUNTER 2019-02-20 12:31 | Outpatient (CLI) | payer MEDICAID ==
[2019-02-20 12:52] VITALS: BP 108/58
[2019-02-20] MEDS ORDERED: ONDANSETRON HCL INJ/PF 4 MG/2 ML SDV IV PRN (12:54)
[2019-02-20] MEDS ORDERED: NORMAL SALINE 1000 ML 1,000 ML IV PRN (12:55)
[2019-02-20] MEDS ORDERED: HYDROMORPHONE HCL INJ/PF 2 MG/ML AMPULE IV PRN (12:56)
[2019-02-20] MEDS ORDERED: DIPHENHYDRAMINE HCL 50 MG/ML VIAL IV PRN (12:58)
== END 2019-02-20 15:24 | disposition home or self-care (01) ==
LOC: II 12:31 → 5TH 12:38 → II 15:24
PROVIDERS: ATTEND Internal Medicine
PROC: 3E033GC Introduction of Other Therapeutic Substance into Peripheral Vein, Percutaneous Approach (ICD-10-PCS; principal; 2019-02-20)
PROC: 3E0337Z Introduction of Electrolytic and Water Balance Substance into Peripheral Vein, Percutaneous Approach (ICD-10-PCS; 2019-02-20)
DX: D57.00 Hb-SS disease with crisis, unspecified (principal); E86.0 Dehydration; R11.0 Nausea; R52 Pain, unspecified
CPT/HCPCS: 96375; 96360; 96361; J1200; J1170; J2405

== ENCOUNTER 2019-02-24 08:51 | Outpatient (CLI) | payer MEDICAID ==
[2019-02-24 09:07] VITALS: BP 114/65
[2019-02-24] MEDS ORDERED: ONDANSETRON HCL INJ/PF 4 MG/2 ML SDV IV PRN (10:00)
[2019-02-24] MEDS ORDERED: HYDROMORPHONE HCL INJ/PF 2 MG/ML AMPULE IV PRN (10:00)
[2019-02-24] MEDS ORDERED: NORMAL SALINE 1000 ML 1,000 ML IV PRN (10:00)
[2019-02-24] MEDS ORDERED: DIPHENHYDRAMINE HCL 50 MG/ML VIAL IV PRN (10:00)
== END 2019-02-24 11:30 | disposition home or self-care (01) ==
LOC: II 08:51 → 5TH 09:05 → II 11:30
PROVIDERS: ATTEND Internal Medicine
PROC: 3E033GC Introduction of Other Therapeutic Substance into Peripheral Vein, Percutaneous Approach (ICD-10-PCS; principal; 2019-02-24)
PROC: 3E0337Z Introduction of Electrolytic and Water Balance Substance into Peripheral Vein, Percutaneous Approach (ICD-10-PCS; 2019-02-24)
DX: D57.00 Hb-SS disease with crisis, unspecified (principal); E86.0 Dehydration; R11.0 Nausea; R52 Pain, unspecified
CPT/HCPCS: 96375; 96360; 96361; J1200; J1170; J2405; 96374

== ENCOUNTER 2019-02-25 08:56 | Outpatient (CLI) | payer MEDICAID ==
[2019-02-25] MEDS ORDERED: DIPHENHYDRAMINE HCL 50 MG/ML VIAL IV PRN (09:10)
[2019-02-25 09:11] VITALS: BP 123/60
[2019-02-25] MEDS ORDERED: ONDANSETRON HCL INJ/PF 4 MG/2 ML SDV IV PRN (09:11)
[2019-02-25] MEDS ORDERED: HYDROMORPHONE HCL INJ/PF 2 MG/ML AMPULE IV PRN (09:14)
[2019-02-25] MEDS ORDERED: NORMAL SALINE 1000 ML 1,000 ML IV PRN (09:15)
== END 2019-02-25 11:00 | disposition home or self-care (01) ==
LOC: II 08:56 → 5TH 08:57 → II 11:00
PROVIDERS: ATTEND Internal Medicine
PROC: 3E0337Z Introduction of Electrolytic and Water Balance Substance into Peripheral Vein, Percutaneous Approach (ICD-10-PCS; principal; 2019-02-25)
PROC: 3E033GC Introduction of Other Therapeutic Substance into Peripheral Vein, Percutaneous Approach (ICD-10-PCS; 2019-02-25)
DX: D57.00 Hb-SS disease with crisis, unspecified (principal); E86.0 Dehydration; R11.0 Nausea; R52 Pain, unspecified
CPT/HCPCS: 96374; 96375; 96361; J1200; J1170; J2405

== ENCOUNTER 2019-02-26 09:53 | Outpatient (CLI) | payer MEDICAID ==
[2019-02-26] MEDS ORDERED: ONDANSETRON HCL INJ/PF 4 MG/2 ML SDV IV PRN (10:00)
[2019-02-26] MEDS ORDERED: DIPHENHYDRAMINE HCL 50 MG/ML VIAL IV PRN (10:00)
[2019-02-26] MEDS ORDERED: HYDROMORPHONE HCL INJ/PF 2 MG/ML AMPULE IV PRN (10:01)
[2019-02-26] MEDS ORDERED: NORMAL SALINE 1000 ML 1,000 ML IV PRN (10:02)
[2019-02-26 10:07] VITALS: BP 124/56
== END 2019-02-26 11:42 | disposition home or self-care (01) ==
LOC: II 09:53 → 5TH 09:54 → II 11:42
PROVIDERS: ATTEND Internal Medicine
PROC: 3E0337Z Introduction of Electrolytic and Water Balance Substance into Peripheral Vein, Percutaneous Approach (ICD-10-PCS; principal; 2019-02-26)
PROC: 3E033GC Introduction of Other Therapeutic Substance into Peripheral Vein, Percutaneous Approach (ICD-10-PCS; 2019-02-26)
DX: D57.00 Hb-SS disease with crisis, unspecified (principal); E86.0 Dehydration; R11.0 Nausea; R52 Pain, unspecified
CPT/HCPCS: 96374; 96375; 96361; J1200; J1170; J2405

== ENCOUNTER 2019-03-06 12:03 | Outpatient (CLI) | payer MEDICAID ==
[2019-03-06] MEDS ORDERED: NORMAL SALINE 1000 ML 1,000 ML IV PRN (12:12)
[2019-03-06] MEDS ORDERED: DIPHENHYDRAMINE HCL 50 MG/ML VIAL IV PRN (12:13)
[2019-03-06] MEDS ORDERED: HYDROMORPHONE HCL INJ/PF 2 MG/ML AMPULE IV PRN (12:14)
[2019-03-06] MEDS ORDERED: ONDANSETRON HCL INJ/PF 4 MG/2 ML SDV IV PRN (12:14)
[2019-03-06 13:02] VITALS: BP 123/57
== END 2019-03-06 14:57 | disposition home or self-care (01) ==
LOC: II 12:03 → 5TH 12:04 → II 14:57
PROVIDERS: ATTEND Internal Medicine
PROC: 3E0337Z Introduction of Electrolytic and Water Balance Substance into Peripheral Vein, Percutaneous Approach (ICD-10-PCS; principal; 2019-03-06)
PROC: 3E033GC Introduction of Other Therapeutic Substance into Peripheral Vein, Percutaneous Approach (ICD-10-PCS; 2019-03-06)
DX: D57.00 Hb-SS disease with crisis, unspecified (principal); E86.0 Dehydration; R11.0 Nausea; R52 Pain, unspecified
CPT/HCPCS: 96374; 96375; 96361; J1200; J1170; J2405

== ENCOUNTER 2019-03-10 12:58 | Outpatient (CLI) | payer MEDICAID ==
[2019-03-10] MEDS ORDERED: DIPHENHYDRAMINE HCL 50 MG/ML VIAL IV PRN (13:10)
[2019-03-10] MEDS ORDERED: ONDANSETRON HCL INJ/PF 4 MG/2 ML SDV IV PRN (13:11)
[2019-03-10] MEDS ORDERED: NORMAL SALINE 1000 ML 1,000 ML IV PRN (13:11)
[2019-03-10] MEDS ORDERED: HYDROMORPHONE HCL INJ/PF 2 MG/ML AMPULE IV PRN (13:12)
[2019-03-10 14:18] VITALS: BP 115/68
== END 2019-03-10 15:17 | disposition home or self-care (01) ==
LOC: II 12:58 → 5TH 13:54 → II 15:17
PROVIDERS: ATTEND Internal Medicine
PROC: 3E0337Z Introduction of Electrolytic and Water Balance Substance into Peripheral Vein, Percutaneous Approach (ICD-10-PCS; principal; 2019-03-10)
PROC: 3E033GC Introduction of Other Therapeutic Substance into Peripheral Vein, Percutaneous Approach (ICD-10-PCS; 2019-03-10)
DX: D57.00 Hb-SS disease with crisis, unspecified (principal); E86.0 Dehydration; R11.0 Nausea; R52 Pain, unspecified
CPT/HCPCS: 96374; 96375; 96361; J1200; J1170; J2405

== ENCOUNTER 2019-03-11 09:04 | Outpatient (CLI) | payer MEDICAID ==
[2019-03-11] MEDS ORDERED: DIPHENHYDRAMINE HCL 50 MG/ML VIAL IV PRN (09:06)
[2019-03-11] MEDS ORDERED: NORMAL SALINE 1000 ML 1,000 ML IV PRN (09:07)
[2019-03-11] MEDS ORDERED: ONDANSETRON HCL INJ/PF 4 MG/2 ML SDV IV PRN (09:07)
[2019-03-11] MEDS ORDERED: HYDROMORPHONE HCL INJ/PF 2 MG/ML AMPULE IV PRN (09:09)
[2019-03-11 09:34] VITALS: BP 110/59
== END 2019-03-11 10:24 | disposition home or self-care (01) ==
LOC: II 09:04 → 5TH 09:06 → II 10:24
PROVIDERS: ATTEND Internal Medicine
PROC: 3E0437Z Introduction of Electrolytic and Water Balance Substance into Central Vein, Percutaneous Approach (ICD-10-PCS; principal; 2019-03-11)
PROC: 3E043GC Introduction of Other Therapeutic Substance into Central Vein, Percutaneous Approach (ICD-10-PCS; 2019-03-11)
DX: D57.00 Hb-SS disease with crisis, unspecified (principal); E86.0 Dehydration; R11.0 Nausea; R52 Pain, unspecified
CPT/HCPCS: 96374; 96375; 96361; J1200; J1170; J2405

== ENCOUNTER 2019-03-24 14:33 | Outpatient (CLI) | payer MEDICAID ==
[2019-03-24] MEDS ORDERED: NORMAL SALINE 1000 ML 1,000 ML IV PRN (14:37)
[2019-03-24] MEDS ORDERED: ONDANSETRON HCL INJ/PF 4 MG/2 ML SDV IV PRN (14:37)
[2019-03-24] MEDS ORDERED: DIPHENHYDRAMINE HCL 50 MG/ML VIAL IV PRN (14:37)
[2019-03-24] MEDS ORDERED: HYDROMORPHONE HCL INJ/PF 2 MG/ML AMPULE IV PRN (14:38)
[2019-03-24 15:07] VITALS: BP 119/60
== END 2019-03-24 16:12 | disposition home or self-care (01) ==
LOC: II 14:33 → 5TH 15:02 → II 16:12
PROVIDERS: ATTEND Internal Medicine
PROC: 3E033GC Introduction of Other Therapeutic Substance into Peripheral Vein, Percutaneous Approach (ICD-10-PCS; principal; 2019-03-24)
PROC: 3E0337Z Introduction of Electrolytic and Water Balance Substance into Peripheral Vein, Percutaneous Approach (ICD-10-PCS; 2019-03-24)
DX: D57.00 Hb-SS disease with crisis, unspecified (principal); E86.0 Dehydration; R11.0 Nausea; R52 Pain, unspecified
CPT/HCPCS: 96374; 96375; 96361; J1200; J1170; J2405

== ENCOUNTER 2019-03-25 13:38 | Outpatient (CLI) | payer MEDICAID ==
[~2019-03-25 13:38] MED LIST changes: +DIPHENHYDRAMINE HCL 50 MG/ML VIAL IV PRN
[2019-03-25 14:06] VITALS: BP 127/70
== END 2019-03-25 15:48 | disposition home or self-care (01) ==
LOC: II 13:38 → 5TH 13:49 → II 15:48
PROVIDERS: ATTEND Internal Medicine
PROC: 3E033GC Introduction of Other Therapeutic Substance into Peripheral Vein, Percutaneous Approach (ICD-10-PCS; principal; 2019-03-25)
PROC: 3E0337Z Introduction of Electrolytic and Water Balance Substance into Peripheral Vein, Percutaneous Approach (ICD-10-PCS; 2019-03-25)
DX: D57.00 Hb-SS disease with crisis, unspecified (principal); E86.0 Dehydration; R11.0 Nausea; R52 Pain, unspecified
CPT/HCPCS: 96374; 96375; 96361; J1200; J1170; J2405

== ENCOUNTER 2019-03-26 12:07 | Outpatient (CLI) | payer MEDICAID ==
[2019-03-26] MEDS ORDERED: DIPHENHYDRAMINE HCL 50 MG/ML VIAL IV PRN (12:10)
[2019-03-26] MEDS ORDERED: HYDROMORPHONE HCL INJ/PF 2 MG/ML AMPULE IV PRN (12:11)
[2019-03-26] MEDS ORDERED: ONDANSETRON HCL INJ/PF 4 MG/2 ML SDV IV PRN (12:11)
[2019-03-26] MEDS ORDERED: NORMAL SALINE 1000 ML 1,000 ML IV PRN (12:11)
[2019-03-26 12:19] VITALS: BP 121/60
== END 2019-03-26 14:08 | disposition home or self-care (01) ==
LOC: II 12:07 → 5TH 12:09 → II 14:08
PROVIDERS: ATTEND Internal Medicine
PROC: 3E033GC Introduction of Other Therapeutic Substance into Peripheral Vein, Percutaneous Approach (ICD-10-PCS; principal; 2019-03-26)
PROC: 3E0337Z Introduction of Electrolytic and Water Balance Substance into Peripheral Vein, Percutaneous Approach (ICD-10-PCS; 2019-03-26)
DX: D57.00 Hb-SS disease with crisis, unspecified (principal); E86.0 Dehydration; R11.0 Nausea; R52 Pain, unspecified
CPT/HCPCS: 96374; 96375; 96361; J1200; J1170; J2405

== ENCOUNTER 2019-04-02 12:56 | Outpatient (CLI) | payer MEDICAID ==
[2019-04-02] MEDS ORDERED: DIPHENHYDRAMINE HCL 50 MG/ML VIAL IV PRN (13:10)
[2019-04-02] MEDS ORDERED: ONDANSETRON HCL INJ/PF 4 MG/2 ML SDV IV PRN (13:11)
[2019-04-02] MEDS ORDERED: NORMAL SALINE 1000 ML 1,000 ML IV PRN (13:14)
[2019-04-02] MEDS ORDERED: HYDROMORPHONE HCL INJ/PF 2 MG/ML AMPULE IV PRN (13:14)
[2019-04-02 14:16] VITALS: BP 121/60
== END 2019-04-02 15:02 | disposition home or self-care (01) ==
LOC: II 12:56 → 5TH 12:58 → II 15:02
PROVIDERS: ATTEND Internal Medicine
PROC: 3E033GC Introduction of Other Therapeutic Substance into Peripheral Vein, Percutaneous Approach (ICD-10-PCS; principal; 2019-04-02)
PROC: 3E0337Z Introduction of Electrolytic and Water Balance Substance into Peripheral Vein, Percutaneous Approach (ICD-10-PCS; 2019-04-02)
DX: D57.00 Hb-SS disease with crisis, unspecified (principal); E86.0 Dehydration; R11.0 Nausea; R52 Pain, unspecified
CPT/HCPCS: 96374; 96375; 96361; J1200; J1170; J2405

== ENCOUNTER 2019-04-03 09:09 | Outpatient (CLI) | payer MEDICAID ==
[2019-04-03 09:21] VITALS: BP 122/63
[2019-04-03] MEDS ORDERED: DIPHENHYDRAMINE HCL 50 MG/ML VIAL IV PRN (09:47)
[2019-04-03] MEDS ORDERED: HYDROMORPHONE HCL INJ/PF 2 MG/ML AMPULE IV PRN (09:48)
[2019-04-03] MEDS ORDERED: ONDANSETRON HCL INJ/PF 4 MG/2 ML SDV IV PRN (09:48)
[2019-04-03] MEDS ORDERED: NORMAL SALINE 1000 ML 1,000 ML IV PRN (09:50)
== END 2019-04-03 11:31 | disposition home or self-care (01) ==
LOC: II 09:09 → 5TH 09:12 → II 11:31
PROVIDERS: ATTEND Internal Medicine
PROC: 3E033GC Introduction of Other Therapeutic Substance into Peripheral Vein, Percutaneous Approach (ICD-10-PCS; principal; 2019-04-03)
PROC: 3E0337Z Introduction of Electrolytic and Water Balance Substance into Peripheral Vein, Percutaneous Approach (ICD-10-PCS; 2019-04-03)
DX: D57.00 Hb-SS disease with crisis, unspecified (principal); E86.0 Dehydration; R11.0 Nausea; R52 Pain, unspecified
CPT/HCPCS: 96374; 96375; 96361; J1200; J1170; J2405

== ENCOUNTER 2019-04-07 12:14 | Outpatient (CLI) | payer MEDICAID ==
[2019-04-07] MEDS ORDERED: ONDANSETRON HCL INJ/PF 4 MG/2 ML SDV IV PRN (12:31)
[2019-04-07] MEDS ORDERED: DIPHENHYDRAMINE HCL 50 MG/ML VIAL IV PRN (12:31)
[2019-04-07] MEDS ORDERED: HYDROMORPHONE HCL INJ/PF 2 MG/ML AMPULE IV PRN (12:34)
[2019-04-07] MEDS ORDERED: NORMAL SALINE 1000 ML 1,000 ML IV PRN (12:34)
[2019-04-07 12:35] VITALS: BP 132/68
[2019-04-07] MEDS ORDERED: POTASSIUM CHLORIDE 20 MEQ/50 ML RTU IV PRN (12:37)
[2019-04-07] MEDS ORDERED: POTASSI CL 20 MEQ/50 ML RIDER 20 MEQ/50 ML RTUPB IV ONE (13:06)
== END 2019-04-07 15:32 | disposition home or self-care (01) ==
LOC: II 12:14 → 5TH 12:15 → II 15:32
PROVIDERS: ATTEND Internal Medicine
PROC: 3E043GC Introduction of Other Therapeutic Substance into Central Vein, Percutaneous Approach (ICD-10-PCS; principal; 2019-04-07)
PROC: 3E0437Z Introduction of Electrolytic and Water Balance Substance into Central Vein, Percutaneous Approach (ICD-10-PCS; 2019-04-07)
DX: D57.00 Hb-SS disease with crisis, unspecified (principal); E86.0 Dehydration; R52 Pain, unspecified; R11.0 Nausea
CPT/HCPCS: 96367; 96374; 96375; 96361; J1200; J1170; J2405; J3480; 96365; 96366

== ENCOUNTER 2019-04-08 09:02 | Outpatient (CLI) | payer MEDICAID ==
[~2019-04-08 09:02] MED LIST changes: -DIPHENHYDRAMINE HCL 50 MG/ML VIAL IV PRN; -ONDANSETRON HCL INJ/PF 4 MG/2 ML SDV IV PRN; +ONDANSETRON HCL/PF 8 MG in NORMAL SALINE 50 ML IV PRN; +POTASSIUM CHLORIDE 20 MEQ/50 ML RTU IV PRN
[2019-04-08] MEDS ORDERED: DIPHENHYDRAMINE HCL 50 MG in NORMAL SALINE 50 ML IV PRN (09:13)
[2019-04-08 09:21] VITALS: BP 121/67
[2019-04-08] MEDS ORDERED: ONDANSETRON HCL INJ/PF 4 MG/2 ML SDV IV PRN (09:23)
[2019-04-08] MEDS ORDERED: DIPHENHYDRAMINE HCL 50 MG/ML VIAL IV PRN (09:23)
== END 2019-04-08 11:48 | disposition home or self-care (01) ==
LOC: II 09:02 → 5TH 09:03 → II 11:48
PROVIDERS: ATTEND Internal Medicine
PROC: 3E033GC Introduction of Other Therapeutic Substance into Peripheral Vein, Percutaneous Approach (ICD-10-PCS; principal; 2019-04-08)
PROC: 3E0337Z Introduction of Electrolytic and Water Balance Substance into Peripheral Vein, Percutaneous Approach (ICD-10-PCS; 2019-04-08)
DX: D57.00 Hb-SS disease with crisis, unspecified (principal); E86.0 Dehydration; R11.0 Nausea; R52 Pain, unspecified
CPT/HCPCS: 96367; 96374; 96375; 96361; J1200; J1170; J2405; J3480; 96365; 96366

== ENCOUNTER 2019-04-09 08:59 | Outpatient (CLI) | payer MEDICAID ==
[2019-04-09] MEDS ORDERED: DIPHENHYDRAMINE HCL 50 MG/ML VIAL IV PRN (09:01)
[2019-04-09] MEDS ORDERED: ONDANSETRON HCL INJ/PF 4 MG/2 ML SDV IV PRN (09:02)
[2019-04-09] MEDS ORDERED: HYDROMORPHONE HCL INJ/PF 2 MG/ML AMPULE IV PRN (09:03)
[2019-04-09] MEDS ORDERED: NORMAL SALINE 1000 ML 1,000 ML IV PRN (09:04)
[2019-04-09] MEDS ORDERED: POTASSIUM CHLORIDE 20 MEQ/50 ML RTU IV PRN (09:05)
[2019-04-09 09:11] VITALS: BP 120/70
== END 2019-04-09 11:34 | disposition home or self-care (01) ==
LOC: 5TH 08:59 → II 08:59
PROVIDERS: ATTEND Internal Medicine
PROC: 3E0437Z Introduction of Electrolytic and Water Balance Substance into Central Vein, Percutaneous Approach (ICD-10-PCS; principal; 2019-04-09)
PROC: 3E043GC Introduction of Other Therapeutic Substance into Central Vein, Percutaneous Approach (ICD-10-PCS; 2019-04-09)
DX: D57.00 Hb-SS disease with crisis, unspecified (principal); E86.0 Dehydration; R11.0 Nausea; R52 Pain, unspecified
CPT/HCPCS: 96367; 96374; 96375; 96361; J1200; J1170; J2405; J3480; 96365; 96366

== ENCOUNTER 2019-04-10 08:21 | Outpatient (CLI) | payer MEDICAID ==
[~2019-04-10 08:21] MED LIST changes: +DIPHENHYDRAMINE HCL 50 MG/ML VIAL IV PRN; -NORMAL SALINE 1000 ML 1,000 ML IV PRN; +ONDANSETRON HCL INJ/PF 4 MG/2 ML SDV IV PRN; -ONDANSETRON HCL/PF 8 MG in NORMAL SALINE 50 ML IV PRN; +POTASSI CL 20 MEQ/NS 1L 1000 ML IV PRN; -POTASSIUM CHLORIDE 20 MEQ/50 ML RTU IV PRN
[2019-04-10 09:21] VITALS: BP 113/71
== END 2019-04-10 11:29 | disposition home or self-care (01) ==
LOC: II 08:21 → 5TH 08:23 → II 11:29
PROVIDERS: ATTEND Internal Medicine
PROC: 3E033GC Introduction of Other Therapeutic Substance into Peripheral Vein, Percutaneous Approach (ICD-10-PCS; principal; 2019-04-10)
DX: D57.00 Hb-SS disease with crisis, unspecified (principal); E86.0 Dehydration; R11.0 Nausea; R52 Pain, unspecified
CPT/HCPCS: 96365; 96367; 96375; J1200; J1170; J2405; J3480; 96366

== ENCOUNTER 2019-04-14 08:22 | Outpatient (CLI) | payer MEDICAID ==
[2019-04-14] MEDS ORDERED: ONDANSETRON HCL INJ/PF 4 MG/2 ML SDV IV PRN (08:24)
[2019-04-14] MEDS ORDERED: HYDROMORPHONE HCL INJ/PF 2 MG/ML AMPULE IV PRN (08:24)
[2019-04-14] MEDS ORDERED: DIPHENHYDRAMINE HCL 50 MG/ML VIAL IV PRN (08:24)
[2019-04-14] MEDS ORDERED: NORMAL SALINE 1000 ML 1,000 ML IV PRN (08:25)
[2019-04-14 08:37] VITALS: BP 121/70
== END 2019-04-14 11:20 | disposition home or self-care (01) ==
LOC: II 08:22 → 5TH 08:25 → II 11:20
PROVIDERS: ATTEND Internal Medicine
PROC: 3E033GC Introduction of Other Therapeutic Substance into Peripheral Vein, Percutaneous Approach (ICD-10-PCS; principal; 2019-04-14)
PROC: 3E0337Z Introduction of Electrolytic and Water Balance Substance into Peripheral Vein, Percutaneous Approach (ICD-10-PCS; 2019-04-14)
DX: D57.00 Hb-SS disease with crisis, unspecified (principal); E86.0 Dehydration; R11.0 Nausea; R52 Pain, unspecified
CPT/HCPCS: 96374; 96375; 96361; J1200; J1170; J2405

== ENCOUNTER 2019-04-16 08:20 | Outpatient (CLI) | payer MEDICAID ==
[2019-04-16 08:28] VITALS: BP 114/61
[2019-04-16] MEDS ORDERED: DIPHENHYDRAMINE HCL 50 MG/ML VIAL IV PRN (08:29)
[2019-04-16] MEDS ORDERED: ONDANSETRON HCL INJ/PF 4 MG/2 ML SDV IV PRN (08:30)
[2019-04-16] MEDS ORDERED: HYDROMORPHONE HCL INJ/PF 2 MG/ML AMPULE IV PRN (08:31)
[2019-04-16] MEDS ORDERED: NORMAL SALINE 1000 ML 1,000 ML IV PRN (08:32)
== END 2019-04-16 10:20 | disposition home or self-care (01) ==
LOC: II 08:20 → 5TH 08:23 → II 10:20
PROVIDERS: ATTEND Internal Medicine
PROC: 3E033GC Introduction of Other Therapeutic Substance into Peripheral Vein, Percutaneous Approach (ICD-10-PCS; principal; 2019-04-16)
PROC: 3E0337Z Introduction of Electrolytic and Water Balance Substance into Peripheral Vein, Percutaneous Approach (ICD-10-PCS; 2019-04-16)
DX: D57.00 Hb-SS disease with crisis, unspecified (principal); E86.0 Dehydration; R11.0 Nausea; R52 Pain, unspecified
CPT/HCPCS: 96374; 96375; 96361; J1200; J1170; J2405

== ENCOUNTER 2019-04-17 08:01 | Outpatient (CLI) | payer MEDICAID ==
[2019-04-17] MEDS ORDERED: DIPHENHYDRAMINE HCL 50 MG/ML VIAL IV PRN (08:11)
[2019-04-17] MEDS ORDERED: ONDANSETRON HCL INJ/PF 4 MG/2 ML SDV IV PRN (08:11)
[2019-04-17 08:12] VITALS: BP 114/68
[2019-04-17] MEDS ORDERED: HYDROMORPHONE HCL INJ/PF 2 MG/ML AMPULE IV PRN (08:12)
[2019-04-17] MEDS ORDERED: NORMAL SALINE 1000 ML 1,000 ML IV PRN (08:13)
== END 2019-04-17 11:28 | disposition home or self-care (01) ==
LOC: II 08:01 → 5TH 08:26 → II 11:28
PROVIDERS: ATTEND Internal Medicine
PROC: 3E033GC Introduction of Other Therapeutic Substance into Peripheral Vein, Percutaneous Approach (ICD-10-PCS; principal; 2019-04-17)
PROC: 3E0337Z Introduction of Electrolytic and Water Balance Substance into Peripheral Vein, Percutaneous Approach (ICD-10-PCS; 2019-04-17)
DX: D57.00 Hb-SS disease with crisis, unspecified (principal); E86.0 Dehydration; R11.0 Nausea; R52 Pain, unspecified
CPT/HCPCS: 96374; 96375; 96361; J1200; J1170; J2405

== ENCOUNTER 2019-04-26 10:27 | Emergency (ER) | payer MEDICAID ==
--- NOTE | 2019-04-26 12:09 | ER Document Report ---
ED Medical Screen (RME) - General Chief Complaint: Sickle Cell Crisis Stated Complaint: POSSIBLE SICKLE CELL CRISIS Time Seen by Provider: 04/26/19 12:07 Primary Care Provider: AMALIA OROZCO PA-C [Primary Care Provider] - Follow up as needed Mode of Arrival: Ambulatory Information source: Patient Notes: 28-year-old female presented to ED for complaint of generalized pain. She does have a history of sickle cell and is been seen frequently for her sickle cell pain. She is a patient of Dr. Meza who monitors her sickle cell. She states her worst pain is in the back at this time it is her normal pain that she gets with her sickle cell. We will get the blood work completed. Start the IV fluids. I have greeted and performed a rapid initial assessment of this patient. A comprehensive ED assessment and evaluation of the patient, analysis of test results and completion of medical decision making process will be conducted by an additional ED providers. TRAVEL OUTSIDE OF THE [place] IN LAST 30 DAYS: No - Related Data Allergies/Adverse Reactions: ceftriaxone sodium [From Rocephin] Allergy (Verified 01/12/19 10:22) Cephalosporins Allergy (Verified 01/12/19 10:22) milk [Milk] Allergy (Verified 01/12/19 10:22) Shellfish * [Shellfish] Allergy (Verified 01/12/19 10:22) wheat [Wheat] Allergy (Verified 01/12/19 10:22) Past Medical History - Social History Frequency of alcohol use: None Drug Abuse: None Family history: None, Reviewed & Not Pertinent - Past Medical History Cardiac Medical History: Reports: Hx Hypertension, Hx Heart Murmur Denies: Hx Coronary Artery Disease, Hx Heart Attack Pulmonary Medical History: Reports: Hx Asthma, Hx Pneumonia - 2017 Denies: Hx Bronchitis, Hx COPD, Hx Tuberculosis Neurological Medical History: Reports: Hx Migraine, Hx Seizures. Denies: Hx Cerebrovascular Accident Endocrine Medical History: Denies: Hx Diabetes Mellitus Type 2, Hx Hyperthyroidism, Hx Hypothyroidism Renal/ Medical History: Denies: Hx Peritoneal Dialysis GI Medical History: Reports: Hx Gastroesophageal Reflux Disease Musculoskeltal Medical History: Denies Hx Arthritis, Denies Hx Fibromyalgia Skin Medical History: Reports Hx MRSA Psychiatric Medical History: Reports: Hx Depression Past Surgical History: Reports: Hx Adenoidectomy, Hx Cholecystectomy, Hx Oral Surgery - growth removed from under tongue, Hx Tonsillectomy, Other - Port placement 2 and removal for infection, multiple PICC lines, central l. Denies: Hx Hysterectomy, Hx Kidney (Renal Surgery), Hx Pacemaker - Immunizations Hx Diphtheria, Pertussis, Tetanus Vaccination: Yes Physical Exam - Vital signs Vitals: Temp Pulse Resp BP Pulse Ox 99 F 100 18 123/55 L 99 04/26/19 10:32 04/26/19 10:32 04/26/19 10:32 04/26/19 10:32 04/26/19 10:32 Course - Vital Signs Vital signs: Temp Pulse Resp BP Pulse Ox 99 F 100 18 123/55 L 99 04/26/19 10:32 04/26/19 10:32 04/26/19 10:32 04/26/19 10:32 04/26/19 10:32 Doctor's Discharge - Discharge Referrals: AMALIA OROZCO PA-C [Primary Care Provider] - Follow up as needed
[2019-04-26] MEDS ORDERED: ACETAMINOPHEN 325 MG TABLET PO ONE (12:10)
[2019-04-26] MEDS ORDERED: NORMAL SALINE 1000 ML 1,000 ML IV ONE (12:10)
[2019-04-26 12:49] LABS: APPEARANCE,URINE CLEAR; BILIRUBIN,URINE NEGATIVE (NEGATIVE); COLOR,URINE YELLOW; GLUCOSE, URINE NEGATIVE (NEGATIVE); KETONES,URINE NEGATIVE (NEGATIVE); PROTEIN,URINE NEGATIVE (NEGATIVE); URINE SPECIFIC GRAVITY 1.012
[2019-04-26] MEDS ORDERED: MORPHINE SULFATE 10 MG/ML INJ IV ONE (13:26)
--- NOTE | 2019-04-26 13:29 | ER Document Report ---
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 She denies any chest pain, fevers, or shortness of breath. She denies any pain to the hips. Patient thinks she may be secondary to missing her last menstrual period. ROS: See HPI All other review of systems reviewed and otherwise negative Reviewed vital signs and nursing note as charted by RN. PHYSICAL EXAM: CONSTITUTIONAL: Alert and oriented and responds appropriately to questions. Well-appearing; well-nourished HEAD: Normocephalic; atraumatic EYES: PERRL; Sclerae not pale ENT: Normal nose; no rhinorrhea; moist mucous membranes; pharynx without lesions noted NECK: Supple without meningismus; non-tender; no cervical lymphadenopathy, no masses CARD: Regular rate and rhythm; no murmurs; symmetric distal pulses RESP: Normal chest excursion without splinting or tachypnea; breath sounds clear and equal bilaterally ABD/GI: Normal bowel sounds; non-distended; soft, non-tender BACK: The back appears normal and is non-tender to palpation along the midline spine without any swelling, erythema, or step-offs appreciated EXT: Normal ROM in all joints; non-tender to palpation; no edema SKIN: No acute lesions noted NEURO: CN 2-12 intact; 5/5 bilateral upper and lower extremity strength with se nsation intact to light touch PSYCH: The patient's mood and manner are appropriate. Grooming and personal hygiene are appropriate. TRAVEL OUTSIDE OF THE [place] IN LAST 30 DAYS: No - Related Data Allergies/Adverse Reactions: ceftriaxone sodium [From Rocephin] Allergy (Verified 01/12/19 10:22) Cephalosporins Allergy (Verified 01/12/19 10:22) milk [Milk] Allergy (Verified 01/12/19 10:22) Shellfish * [Shellfish] Allergy (Verified 01/12/19 10:22) wheat [Wheat] Allergy (Verified 01/12/19 10:22) Past Medical History - General Information source: Patient - Social History Smoking Status: Unknown if Ever Smoked Frequency of alcohol use: None Drug Abuse: None Family History: Reviewed & Not Pertinent, DM, Malignancy - Brother with Hodgkin's lymphoma. Maternal grandfather with lung cancer., Other - sickle trait in Mother and Father Patient has suicidal ideation: No Patient has homicidal ideation: No - Past Medical History Cardiac Medical History: Reports: Hx Hypertension, Hx Heart Murmur Denies: Hx Coronary Artery Disease, Hx Heart Attack Pulmonary Medical History: Reports: Hx Asthma, Hx Pneumonia - 2017 Denies: Hx Bronchitis, Hx COPD, Hx Tuberculosis Neurological Medical History: Reports: Hx Migraine, Hx Seizures. Denies: Hx Cerebrovascular Accident Endocrine Medical History: Denies: Hx Diabetes Mellitus Type 2, Hx Hyperthyroidism, Hx Hypothyroidism Renal/ Medical History: Denies: Hx Peritoneal Dialysis GI Medical History: Reports: Hx Gastroesophageal Reflux Disease Musculoskeletal Medical History: Denies Hx Arthritis, Denies Hx Fibromyalgia Skin Medical History: Reports Hx MRSA Psychiatric Medical History: Reports: Hx Depression Past Surgical History: Reports: Hx Adenoidectomy, Hx Cholecystectomy, Hx Oral Surgery - growth removed from under tongue, Hx Tonsillectomy, Other - Port placement 2 and removal for infection, multiple PICC lines, central l. Denies: Hx Hysterectomy, Hx Kidney (Renal Surgery), Hx Pacemaker - Immunizations Hx Diphtheria, Pertussis, Tetanus Vaccination: Yes Hx Pneumococcal Vaccination: 07/08/11 Physical Exam - Vital signs Vitals: Temp Pulse Resp BP Pulse Ox 99 F 100 18 123/55 L 99 04/26/19 10:32 04/26/19 10:32 04/26/19 10:32 04/26/19 10:32 04/26/19 10:32 Course - Re-evaluation Re-evalutation: 04/26/19 13:29 Given the above history and physical we will obtain basic labs, hemoglobin level, reticulocyte count, provide fluids and pain medications, test, and reassess. Patient does not have any signs or symptoms of acute chest at this time. 04/26/19 13:55 Patient's test is positive. I have called and spoken to the patient's longwall shearer operator who is aware. He still would like me to provide Dilaudid IV. He states he will follow-up with the patient regarding the and repeat evaluations. 04/26/19 15:45 Labs as recorded. Pain is controlled. patient has good follow-up and we have already consulted with longwall shearer operator. Strict return precautions have been explained. - Vital Signs Vital signs: Temp Pulse Resp BP Pulse Ox 99 F 100 18 123/55 L 99 04/26/19 10:32 04/26/19 10:32 04/26/19 10:32 04/26/19 10:32 04/26/19 10:32 - Laboratory Result Diagrams: 04/26/19 14:35 04/26/19 14:35 Laboratory results interpreted by me: 04/26/19 04/26/19 04/26/19 11:47 11:47 14:35 RBC Hgb Hct MCV MCH RDW Plt Count Carbon Dioxide 20 L Creatinine 0.45 L Total Bilirubin 1.7 H Urine Urobilinogen 2.0 H Urine Ascorbic Acid 20 H Urine HCG, Qual POSITIVE H 04/26/19 14:35 RBC 2.42 L Hgb 9.3 L Hct 26.3 L MCV 109 H MCH 38.2 H RDW 15.5 H Plt Count 486 H Carbon Dioxide Creatinine Total Bilirubin Urine Urobilinogen Urine Ascorbic Acid Urine HCG, Qual Discharge - Discharge Clinical Impression: Sickle cell pain crisis Qualifiers: Weeks of gestation: less than 8 weeks Qualified Code(s): Z3A.01 - Less than 8 weeks gestation of Condition: Good Disposition: HOME, SELF-CARE Additional Instructions: Come back immediately with any return of pain, vaginal bleeding, pelvic pain, pain with urination, fevers or vomiting, chest pain, shortness of breath, or any other acute problems. Please make sure that you follow-up with your longwall shearer operator as we have discussed. Referrals: AMALIA OROZCO PA-C [Primary Care Provider] - Follow up as needed
[2019-04-26] MEDS ORDERED: HYDROMORPHONE HCL INJ/PF 2 MG/ML AMPULE IV ONE (13:44)
[2019-04-26 14:55] LABS: ABSOLUTE RETICS # 0.057 10^6/uL (0.028-0.122); HEMATOCRIT 26.3 % (36.0-47.0); HEMOGLOBIN 9.3 g/dL (12.0-15.5); MEAN CORPUSCULAR HEMOGLOBIN 38.2 pg (27.0-33.4); MEAN CORPUSCULAR HGB CONC 35.2 g/dL (32.0-36.0); MEAN CORPUSCULAR VOLUME 109 fl (80-97); PLATELET COUNT 486 10^3/uL (150-450); RED BLOOD COUNT 2.42 10^6/uL (3.72-5.28); RED CELL DISTRIBUTION WIDTH 15.5 % (11.5-14.0); RETICULOCYTE COUNT (AUTO) 2.33 % (0.66-2.85); WHITE BLOOD COUNT 7.3 10^3/uL (4.0-10.5)
[2019-04-26 15:14] LABS: ABSOLUTE MONOCYTES # (MANUAL) 0.8 10^3/uL (0.1-1.4); BASOPHILS % (MANUAL) 0 % (0-2); EOSINOPHILS % (MANUAL) 1 % (0-6); LYMPHOCYTES % (MANUAL) 28 % (13-45); MONOCYTES % (MANUAL) 11 % (3-13); SEGMENTED NEUTROPHILS % (MAN) 60 % (42-78); TOTAL CELLS COUNTED 100
[2019-04-26 15:20] LABS: ANISOCYTOSIS 1+
[2019-04-26 15:21] LABS: OVALOCYTES SLIGHT; PLATELET COMMENT INCREASED; SICKLE RED CELLS SLIGHT; TARGET CELLS 1+
[2019-04-26 15:23] LABS: ALBUMIN 4.7 g/dL (3.5-5.0); ALKALINE PHOSPHATASE 75 U/L (38-126); ANION GAP 12 (5-19); ASPARTATE AMINO TRANSFERASE 35 U/L (14-36); BILIRUBIN,DIRECT 0.2 mg/dL (0.0-0.4); BILIRUBIN,TOTAL 1.7 mg/dL (0.2-1.3); BLOOD UREA NITROGEN 7 mg/dL (7-20); CALCIUM 9.5 mg/dL (8.4-10.2); CARBON DIOXIDE 20 mmol/L (22-30); CHLORIDE 107 mmol/L (98-107); GLUCOSE 100 mg/dL (75-110); TOTAL PROTEIN 8.1 g/dL (6.3-8.2)
[2019-04-26 15:58] VITALS: BP 109/67
== END 2019-04-26 15:57 | disposition home or self-care (01) ==
LOC: ER 10:27
DX: O99.011 Anemia complicating pregnancy, first trimester (principal); D57.00 Hb-SS disease with crisis, unspecified; Z3A.01 Less than 8 weeks gestation of pregnancy; Z86.14 Personal history of Methicillin resistant Staphylococcus aureus infection; Z91.011 Allergy to milk products; Z91.013 Allergy to seafood; Z91.018 Allergy to other foods
CPT/HCPCS: 36415; 85025; 81025; 85045; 80053; 81001; J3490; J1170; J7030; 96361; 96374; 99284

== ENCOUNTER 2019-04-29 09:11 | Outpatient (CLI) | payer MEDICAID ==
[2019-04-29 09:24] VITALS: BP 136/62
[2019-04-29] MEDS ORDERED: NORMAL SALINE 1000 ML 1,000 ML IV PRN (09:35)
== END 2019-04-29 10:49 | disposition home or self-care (01) ==
LOC: II 09:11 → 5TH 09:12 → II 10:49
PROVIDERS: ATTEND Internal Medicine
PROC: 3E0337Z Introduction of Electrolytic and Water Balance Substance into Peripheral Vein, Percutaneous Approach (ICD-10-PCS; principal; 2019-04-29)
DX: D57.00 Hb-SS disease with crisis, unspecified (principal); E86.0 Dehydration; R11.0 Nausea; R52 Pain, unspecified
CPT/HCPCS: 96360

== ENCOUNTER 2019-04-30 08:50 | Outpatient (CLI) | payer MEDICAID ==
[2019-04-30] MEDS ORDERED: DIPHENHYDRAMINE HCL 50 MG/ML VIAL IV PRN (08:53)
[2019-04-30] MEDS ORDERED: ONDANSETRON HCL INJ/PF 4 MG/2 ML SDV IV PRN (08:54)
[2019-04-30] MEDS ORDERED: NORMAL SALINE 1000 ML 1,000 ML IV PRN (08:55)
[2019-04-30] MEDS ORDERED: HYDROMORPHONE HCL INJ/PF 2 MG/ML AMPULE IV PRN (08:55)
[2019-04-30 09:03] VITALS: BP 129/69
== END 2019-04-30 10:25 | disposition home or self-care (01) ==
LOC: II 08:50 → 5TH 08:50 → II 10:25
PROVIDERS: ATTEND Internal Medicine
PROC: 3E033GC Introduction of Other Therapeutic Substance into Peripheral Vein, Percutaneous Approach (ICD-10-PCS; principal; 2019-04-30)
PROC: 3E0337Z Introduction of Electrolytic and Water Balance Substance into Peripheral Vein, Percutaneous Approach (ICD-10-PCS; 2019-04-30)
DX: D57.00 Hb-SS disease with crisis, unspecified (principal); E86.0 Dehydration; R11.0 Nausea; R52 Pain, unspecified
CPT/HCPCS: 96374; 96375; 96361; J1200; J1170; J2405

== ENCOUNTER 2019-05-01 08:35 | Outpatient (CLI) | payer MEDICAID ==
[~2019-05-01 08:35] MED LIST changes: +NORMAL SALINE 1000 ML 1,000 ML IV PRN; -POTASSI CL 20 MEQ/NS 1L 1000 ML IV PRN
[2019-05-01 08:46] VITALS: BP 114/64
== END 2019-05-01 10:30 | disposition home or self-care (01) ==
LOC: II 08:35 → 5TH 08:36 → II 10:30
PROVIDERS: ATTEND Internal Medicine
PROC: 3E033GC Introduction of Other Therapeutic Substance into Peripheral Vein, Percutaneous Approach (ICD-10-PCS; principal; 2019-05-01)
PROC: 3E0337Z Introduction of Electrolytic and Water Balance Substance into Peripheral Vein, Percutaneous Approach (ICD-10-PCS; 2019-05-01)
DX: D57.00 Hb-SS disease with crisis, unspecified (principal); E86.0 Dehydration; R11.0 Nausea; R52 Pain, unspecified
CPT/HCPCS: 96374; 96375; 96361; J1200; J1170; J2405

== ENCOUNTER 2019-05-15 10:51 | Outpatient (CLI) | payer MEDICAID ==
[2019-05-15] MEDS ORDERED: DIPHENHYDRAMINE HCL 50 MG/ML VIAL IV PRN (10:57)
[2019-05-15] MEDS ORDERED: ONDANSETRON HCL INJ/PF 4 MG/2 ML SDV IV PRN (10:57)
[2019-05-15] MEDS ORDERED: HYDROMORPHONE HCL INJ/PF 2 MG/ML AMPULE IV PRN (10:58)
[2019-05-15] MEDS ORDERED: NORMAL SALINE 1000 ML 1,000 ML IV PRN (10:59)
[2019-05-15 11:22] VITALS: BP 117/53
== END 2019-05-15 13:08 | disposition home or self-care (01) ==
LOC: II 10:51 → 5TH 10:53 → II 13:08
PROVIDERS: ATTEND Internal Medicine
PROC: 3E033GC Introduction of Other Therapeutic Substance into Peripheral Vein, Percutaneous Approach (ICD-10-PCS; principal; 2019-05-15)
PROC: 3E0337Z Introduction of Electrolytic and Water Balance Substance into Peripheral Vein, Percutaneous Approach (ICD-10-PCS; 2019-05-15)
DX: D57.00 Hb-SS disease with crisis, unspecified (principal); E86.0 Dehydration; R11.0 Nausea; R52 Pain, unspecified
CPT/HCPCS: 96374; 96375; 96361; J1200; J1170; J2405

== ENCOUNTER 2019-05-19 12:12 | Outpatient (CLI) | payer MEDICAID ==
[2019-05-19] MEDS ORDERED: DIPHENHYDRAMINE HCL 50 MG/ML VIAL IV PRN (12:14)
[2019-05-19] MEDS ORDERED: ONDANSETRON HCL INJ/PF 4 MG/2 ML SDV IV PRN (12:15)
[2019-05-19] MEDS ORDERED: HYDROMORPHONE HCL INJ/PF 2 MG/ML AMPULE IV PRN (12:15)
[2019-05-19] MEDS ORDERED: NORMAL SALINE 1000 ML 1,000 ML IV PRN (12:16)
[2019-05-19 12:51] VITALS: BP 112/47
== END 2019-05-19 14:30 | disposition home or self-care (01) ==
LOC: II 12:12 → 5TH 12:16 → II 14:30
PROVIDERS: ATTEND Internal Medicine
PROC: 3E033GC Introduction of Other Therapeutic Substance into Peripheral Vein, Percutaneous Approach (ICD-10-PCS; principal; 2019-05-19)
PROC: 3E0337Z Introduction of Electrolytic and Water Balance Substance into Peripheral Vein, Percutaneous Approach (ICD-10-PCS; 2019-05-19)
DX: D57.00 Hb-SS disease with crisis, unspecified (principal); E86.0 Dehydration; R11.0 Nausea; R52 Pain, unspecified
CPT/HCPCS: 96374; 96375; 96361; J1200; J1170; J2405

== ENCOUNTER 2019-05-20 09:54 | Outpatient (CLI) | payer MEDICAID ==
[2019-05-20] MEDS ORDERED: DIPHENHYDRAMINE HCL 50 MG/ML VIAL IV PRN (10:21)
[2019-05-20] MEDS ORDERED: HYDROMORPHONE HCL INJ/PF 2 MG/ML AMPULE IV PRN (10:22)
[2019-05-20] MEDS ORDERED: ONDANSETRON HCL INJ/PF 4 MG/2 ML SDV IV PRN (10:22)
[2019-05-20] MEDS ORDERED: NORMAL SALINE 1000 ML 1,000 ML IV PRN (10:23)
[2019-05-20 11:29] VITALS: BP 103/70
== END 2019-05-20 11:47 | disposition home or self-care (01) ==
LOC: II 09:54 → 5TH 10:05 → II 11:47
PROVIDERS: ATTEND Internal Medicine
PROC: 3E033GC Introduction of Other Therapeutic Substance into Peripheral Vein, Percutaneous Approach (ICD-10-PCS; principal; 2019-05-20)
PROC: 3E0337Z Introduction of Electrolytic and Water Balance Substance into Peripheral Vein, Percutaneous Approach (ICD-10-PCS; 2019-05-20)
DX: D57.00 Hb-SS disease with crisis, unspecified (principal); E86.0 Dehydration; R11.0 Nausea; R52 Pain, unspecified
CPT/HCPCS: 96374; 96375; 96361; J1170; J1200; J2405

== ENCOUNTER 2019-05-21 09:05 | Outpatient (CLI) | payer MEDICAID ==
[2019-05-21 09:29] VITALS: BP 120/60
== END 2019-05-21 11:05 | disposition home or self-care (01) ==
LOC: II 09:05 → 5TH 09:07 → II 11:05
PROVIDERS: ATTEND Internal Medicine
PROC: 3E033GC Introduction of Other Therapeutic Substance into Peripheral Vein, Percutaneous Approach (ICD-10-PCS; principal; 2019-05-21)
PROC: 3E0337Z Introduction of Electrolytic and Water Balance Substance into Peripheral Vein, Percutaneous Approach (ICD-10-PCS; 2019-05-21)
DX: D57.00 Hb-SS disease with crisis, unspecified (principal); E86.0 Dehydration; R11.0 Nausea; R52 Pain, unspecified
CPT/HCPCS: 96374; 96375; 96361; J1200; J1170; J2405

== ENCOUNTER 2019-05-21 16:28 | Inpatient (IN) | payer MEDICAID ==
[2019-05-21] MEDS ORDERED: HYDROMORPHONE HCL INJ/PF 2 MG/ML AMPULE IV ONE ×2 (16:57→20:39)
--- NOTE | 2019-05-21 17:06 | ER Document Report ---
ED Medical Screen (RME) - General Chief Complaint: Sickle Cell Crisis Stated Complaint: SICKLE CELL CRISIS Time Seen by Provider: 05/21/19 16:49 Primary Care Provider: AMALIA OROZCO PA-C [Primary Care Provider] - Follow up as needed Notes: 28-year-old female who is approximately 7 weeks presents to the emergency department and sickle cell crisis. She was at Dr. Fei esteban's office for the past couple of days getting treatments and when she left his office today she started developing severe back pain and bilateral leg pain. Patient states this is typical pain for her. I called Dr. Fei esteban who recommended that we start treatment with IV fluids and Dilaudid 4 mg IV once. I also called Dr. Kevin, WE[employer] CONTENT SPECIALIST on-call, who stated the same. Exam: Patient in significant distress, standing holding her back, mildly tachycardic with a regular rhythm I have greeted and performed a rapid initial assessment of this patient. A comprehensive ED assessment and evaluation of the patient, analysis of test results and completion of medical decision making process will be conducted by an additional ED providers. TRAVEL OUTSIDE OF THE [place] IN LAST 30 DAYS: No - Related Data Allergies/Adverse Reactions: ceftriaxone sodium [From Rocephin] Allergy (Verified 01/12/19 10:22) Cephalosporins Allergy (Verified 01/12/19 10:22) milk [Milk] Allergy (Verified 01/12/19 10:22) Shellfish * [Shellfish] Allergy (Verified 01/12/19 10:22) wheat [Wheat] Allergy (Verified 01/12/19 10:22) Past Medical History - Social History Frequency of alcohol use: None Drug Abuse: None Family history: None, Reviewed & Not Pertinent - Past Medical History Cardiac Medical History: Reports: Hx Hypertension, Hx Heart Murmur Denies: Hx Coronary Artery Disease, Hx Heart Attack Pulmonary Medical History: Reports: Hx Asthma, Hx Pneumonia - 2017 Denies: Hx Bronchitis, Hx COPD, Hx Tuberculosis Neurological Medical History: Reports: Hx Migraine, Hx Seizures. Denies: Hx Cerebrovascular Accident Endocrine Medical History: Denies: Hx Diabetes Mellitus Type 2, Hx Hyperthyroidism, Hx Hypothyroidism Renal/ Medical History: Denies: Hx Peritoneal Dialysis GI Medical History: Reports: Hx Gastroesophageal Reflux Disease Musculoskeltal Medical History: Denies Hx Arthritis, Denies Hx Fibromyalgia Skin Medical History: Reports Hx MRSA Psychiatric Medical History: Reports: Hx Depression Past Surgical History: Reports: Hx Adenoidectomy, Hx Cholecystectomy, Hx Oral Surgery - growth removed from under tongue, Hx Tonsillectomy, Other - Port placement 2 and removal for infection, multiple PICC lines, central l. Denies: Hx Hysterectomy, Hx Kidney (Renal Surgery), Hx Pacemaker - Immunizations Hx Diphtheria, Pertussis, Tetanus Vaccination: Yes Physical Exam - Vital signs Vitals: Temp Pulse Resp BP Pulse Ox 98.4 F 102 H 24 H 117/51 L 100 05/21/19 16:29 05/21/19 16:29 05/21/19 16:29 05/21/19 16:29 05/21/19 16:29 Course - Vital Signs Vital signs: Temp Pulse Resp BP Pulse Ox 98.4 F 102 H 24 H 117/51 L 100 05/21/19 16:29 05/21/19 16:29 05/21/19 16:29 05/21/19 16:29 05/21/19 16:29 Doctor's Discharge - Discharge Referrals: AMALIA OROZCO PA-C [Primary Care Provider] - Follow up as needed
[2019-05-21] MEDS ORDERED: DIPHENHYDRAMINE HCL 50 MG/ML VIAL IV ONE (17:07)
[2019-05-21 17:51] LABS: ABSOLUTE BASOPHILS # (AUTO) 0.1 10^3/uL (0.0-0.2); ABSOLUTE EOSINOPHILS # (AUTO) 0.1 10^3/uL (0.0-0.6); ABSOLUTE LYMPHOCYTES (AUTO) 2.8 10^3/uL (0.5-4.7); ABSOLUTE NEUT (AUTO) 9.5 10^3/uL (1.7-8.2); ABSOLUTE RETICS # 0.182 10^6/uL (0.028-0.122); BASOPHILS % (AUTO) 0.8 % (0-2); EOSINOPHILS % (AUTO) 0.5 % (0-6); HEMATOCRIT 21.6 % (36.0-47.0); LYMPHOCYTES % (AUTO) 20.8 % (13-45); MEAN CORPUSCULAR HEMOGLOBIN 37.3 pg (27.0-33.4); MEAN CORPUSCULAR HGB CONC 36.1 g/dL (32.0-36.0); MONOCYTES % (AUTO) 7.1 % (3-13); PLATELET COUNT 412 10^3/uL (150-450); RED BLOOD COUNT 2.09 10^6/uL (3.72-5.28); RETICULOCYTE COUNT (AUTO) 8.74 % (0.66-2.85); SEGMENTED NEUTROPHILS % (AUTO) 70.8 % (42-78); TOTAL CELLS COUNTED % (AUTO) 100 %; WHITE BLOOD COUNT 13.4 10^3/uL (4.0-10.5)
[2019-05-21 17:53] LABS: ALBUMIN 4.4 g/dL (3.5-5.0); ALKALINE PHOSPHATASE 55 U/L (38-126); ANION GAP 12 (5-19); ASPARTATE AMINO TRANSFERASE 47 U/L (14-36); BILIRUBIN,DIRECT 0.2 mg/dL (0.0-0.4); BILIRUBIN,TOTAL 1.6 mg/dL (0.2-1.3); BLOOD UREA NITROGEN 2 mg/dL (7-20); CALCIUM 9.5 mg/dL (8.4-10.2); CARBON DIOXIDE 20 mmol/L (22-30); CHLORIDE 108 mmol/L (98-107); GLUCOSE 109 mg/dL (75-110); POTASSIUM 3.9 mmol/L (3.6-5.0); TOTAL PROTEIN 7.2 g/dL (6.3-8.2)
[2019-05-21 17:54] LABS: HEMOGLOBIN 7.8 g/dL (12.0-15.5); MEAN CORPUSCULAR VOLUME 104 fl (80-97)
[2019-05-21] MEDS: NORMAL SALINE 1000 ML 1,000 ML IV PRN ×2 (18:57→19:39)
[2019-05-21] MEDS ORDERED: NORMAL SALINE 1000 ML 1,000 ML IV ONE (20:25)
[2019-05-21] MEDS ORDERED: HYDROMORPHONE HCL INJ/PF 2 MG/ML AMPULE ONE (20:38)
[2019-05-21 20:45] LABS: APPEARANCE,URINE CLEAR; BILIRUBIN,URINE NEGATIVE (NEGATIVE); COLOR,URINE YELLOW; GLUCOSE, URINE NEGATIVE (NEGATIVE); KETONES,URINE TRACE mg/dL (NEGATIVE); LEUKOCYTE ESTERASE,URINE NEGATIVE (NEGATIVE); NITRITE,URINE NEGATIVE (NEGATIVE); PROTEIN,URINE NEGATIVE (NEGATIVE); URINE SPECIFIC GRAVITY 1.006; UROBILINOGEN,URINE NEGATIVE mg/dL (<2.0)
--- NOTE | 2019-05-21 21:49 | RADIOLOGY REPORT (SQ) ---
XR CHEST 1 VIEW CLINICAL STATEMENT: chest pain, sickle cell COMPARISON: CT chest dated 10/31/2018. FINDINGS: Cardiomediastinal silhouette is within normal limits. There is no focal lung consolidation or pleural effusion. No evidence of pulmonary edema or pneumothorax. IMPRESSION: No acute cardiopulmonary disease.
--- NOTE | 2019-05-21 21:57 | ER Document Report ---
ED General - General Chief Complaint: Sickle Cell Crisis Stated Complaint: SICKLE CELL CRISIS Time Seen by Provider: 05/21/19 16:49 Primary Care Provider: AMALIA OROZCO PA-C [Primary Care Provider] - Follow up as needed TRAVEL OUTSIDE OF THE [place] IN LAST 30 DAYS: No - HPI Notes: Patient is a 28-year-old female, G1, P0 at approximately 7 weeks gestation, who presents emergency department for evaluation of possible sickle cell crisis. She started with pain in her back, with radiation into her legs, 2 days ago. She states this is all typical of her sickle cell. She states her pain is progressed, and now she hurts "everywhere except my abdomen." She denies any vaginal bleeding. She has had transvaginal ultrasound to confirm intrauterine . She states that her oxycodone at home is not been sufficient to help her. Movement of any sort seems to make her pain worse. - Related Data Allergies/Adverse Reactions: ceftriaxone sodium [From Rocephin] Allergy (Verified 01/12/19 10:22) Cephalosporins Allergy (Verified 01/12/19 10:22) milk [Milk] Allergy (Verified 01/12/19 10:22) Shellfish * [Shellfish] Allergy (Verified 01/12/19 10:22) wheat [Wheat] Allergy (Verified 01/12/19 10:22) Home Medications: List reviewed, please see note Past Medical History - General Information source: Patient - Social History Smoking Status: Never Smoker Frequency of alcohol use: None Drug Abuse: None Family History: Reviewed & Not Pertinent, DM, Malignancy - Brother with Hodgkin's lymphoma. Maternal grandfather with lung cancer., Other - sickle trait in Mother and Father Patient has suicidal ideation: No Patient has homicidal ideation: No - Medical History Medical History: Other - Sickle cell anemia - Past Medical History Cardiac Medical History: Reports: Hx Hypertension, Hx Heart Murmur Denies: Hx Coronary Artery Disease, Hx Heart Attack Pulmonary Medical History: Reports: Hx Asthma, Hx Pneumonia - 2017 Denies: Hx Bronchitis, Hx COPD, Hx Tuberculosis Neurological Medical History: Reports: Hx Migraine, Hx Seizures. Denies: Hx Cerebrovascular Accident Endocrine Medical History: Denies: Hx Diabetes Mellitus Type 2, Hx Hyperthyroidism, Hx Hypothyroidism Renal/ Medical History: Denies: Hx Peritoneal Dialysis GI Medical History: Reports: Hx Gastroesophageal Reflux Disease Musculoskeletal Medical History: Denies Hx Arthritis, Denies Hx Fibromyalgia Skin Medical History: Reports Hx MRSA Psychiatric Medical History: Reports: Hx Depression Past Surgical History: Reports: Hx Adenoidectomy, Hx Cholecystectomy, Hx Oral Surgery - growth removed from under tongue, Hx Tonsillectomy, Other - Port placement 2 and removal for infection, multiple PICC lines, central l. Denies: Hx Hysterectomy, Hx Kidney (Renal Surgery), Hx Pacemaker - Immunizations Hx Diphtheria, Pertussis, Tetanus Vaccination: Yes Hx Pneumococcal Vaccination: 07/08/11 Review of Systems - Review of Systems Constitutional: See HPI EENT: No symptoms reported Cardiovascular: No symptoms reported Respiratory: No symptoms reported Gastrointestinal: No symptoms reported Genitourinary: No symptoms reported Female Genitourinary: See HPI Musculoskeletal: See HPI Skin: No symptoms reported Neurological/Psychological: No symptoms reported Physical Exam - Vital signs Vitals: Temp Pulse Resp BP Pulse Ox 98.4 F 102 H 24 H 117/51 L 100 05/21/19 16:29 05/21/19 16:29 05/21/19 16:29 05/21/19 16:29 05/21/19 16:29 - Notes Notes: Is a 28-year-old female who appears stated age, in amount of moderate distress secondary to pain. Vital signs reviewed, please refer to chart. Head is normocephalic, atraumatic. Pupils equal round, reactive to light. Neck is supple without meningismus. Heart is regular rate and rhythm. Lungs are clear to auscultation bilaterally. Chest wall is not tender to palpation. Abdomen is soft, nontender, normoactive bowel sounds throughout. Extremities without cyanosis, clubbing. Peripheral pulses are equal. Skin is warm and dry. Patient is awake, alert, neurological exam is nonfocal. She has tenderness to palpation throughout bilateral lower extremities, throughout the lumbar spine. Course - Re-evaluation Re-evalutation: 05/21/19 21:59 Patient presents emergency department for evaluation. She laboratory vesication is obtained, was given IV fluids, pain medication. She continued to have significant pain. Her pain management options are limited secondary to her . She was further given more Dilaudid and still is uncomfortable. At this point, her reticulocyte count is up, her hemoglobin is low. I spoke with Dr. Taylor about admitting the patient. He did ask that the director of the the hospitalists sign off on taking care of this patient. I spoke with Dr. Odonnell who agrees to care of this patient tomorrow. The patient will be admitted for further care. I further consulted Dr. Kevin, who will be happy to see the patient in consultation. - Vital Signs Vital signs: Temp Pulse Resp BP Pulse Ox 98.4 F 102 H 19 135/82 H 98 05/21/19 16:29 05/21/19 16:29 05/21/19 20:01 05/21/19 20:01 05/21/19 20:01 - Laboratory Result Diagrams: 05/21/19 17:20 05/21/19 17:20 Laboratory results interpreted by me: 05/21/19 05/21/19 05/21/19 17:20 17:20 19:10 WBC 13.4 H RBC 2.09 L Hgb 7.8 L Hct 21.6 L MCV 104 H D MCH 37.3 H MCHC 36.1 H RDW 15.0 H Reticulocyte # 0.182 H Absolute Neuts (auto) 9.5 H Retic Count (auto) 8.74 H Chloride 108 H Carbon Dioxide 20 L BUN 2 L Total Bilirubin 1.6 H AST 47 H Urine Ketones TRACE H Discharge - Discharge Clinical Impression: Sickle cell pain crisis Qualifiers: Weeks of gestation: less than 8 weeks Qualified Code(s): Z3A.01 - Less than 8 weeks gestation of Condition: Stable Disposition: ADMITTED INPATIENT Admitting Provider: Brandon (Hospitalist) Unit Admitted: Medical Floor Referrals: AMALIA OROZCO PA-C [Primary Care Provider] - Follow up as needed
[2019-05-21] MEDS ORDERED: MAG HYDROX/AL HYDROX/SIMETH SUSP 30 ML UDCUP PO PRN (22:31)
[2019-05-21] MEDS ORDERED: ACETAMINOPHEN 325 MG TABLET PO PRN (22:31)
[2019-05-21] MEDS ORDERED: HYDROMORPHONE HCL INJ/PF 2 MG/ML AMPULE IV PRN ×5 (22:31→22:39)
[2019-05-21] MEDS ORDERED: MAGNESIUM HYDROXIDE SUSP 30 ML UDCUP PO PRN (22:31)
[2019-05-21] MEDS ORDERED: DEXTROSE 5%-LACTATED RINGERS 1,000 ML IV PRN (22:34)
[2019-05-21] MEDS: HYDROMORPHONE HCL INJ/PF 2 MG/ML AMPULE IV PRN (22:49)
[2019-05-22] MEDS: HYDROMORPHONE HCL INJ/PF 2 MG/ML AMPULE IV PRN ×9 (00:56→21:43)
--- NOTE | 2019-05-22 02:55 | PDOC H&P ---
History of Present Illness Admission Date/PCP: 05/21/19 22:06 AMALIA OROZCO PA-C Patient complains of: Sickle cell crisis History of Present Illness: PRANAV JOINER is a 28 year old female who presents the emergency room with a 2-day history of acute sickle cell crisis. She admits developing back pain and bilateral leg pain typical of her sickle cell crisis onset symptoms 2 days ago. This afternoon after leaving Dr. Cornelius's office her pain dramatically increased to severe (5/5) intensity and generalized (as usual for her sickle cell crises) over her entire body, with the exception of her abdomen, and is worsened by any movement or activity. She denies other associated or accompa nying signs and symptoms and admits numerous prior similar episodes. She has not identified any aggravating or ameliorating factors for her acute sickle cell crisis. She does note that she is at 7 weeks of gestation with her first . In the emergency room she was found to have an elevated white blood count of 13,400 and a hemoglobin of 7.8. Dr. Cornelius was consulted by the emergency room physician and he recommended admission for the patient. Patient was subsequently admitted to the hospital for further evaluation and treatment with Dr. Cornelius (hematology) and Dr. Kevin (obstetrics) consulting. Past Medical History Cardiac Medical History: Reports: Hypertension, Heart Murmur Denies: Coronary Artery Disease, Myocardial Infarction Pulmonary Medical History: Reports: Asthma, Pneumonia - 2017 Denies: Bronchitis, Chronic Obstructive Pulmonary Disease (COPD), Tuberculosis EENT Medical History: Denies: Cataracts, Ears - Hearing aids Neurological Medical History: Reports: Migraine, Seizures Denies: Hemorrhagic CVA, Ischemic CVA Endocrine Medical History: Denies: Diabetes Mellitus Type 1, Diabetes Mellitus Type 2, Hyperthyroidism, Hypothyroidism Renal/ Medical History: Denies: Chronic Kidney Disease, Nephrolithiasis Malignancy Medical History: Reports: None GI Medical History: Reports: Gastroesophageal Reflux Disease Denies: Cirrhosis, Hepatitis Musculoskeltal Medical History: Denies: Arthritis, Fibromyalgia, Gout Skin Medical History: Denies: Eczema, Psoriasis Psychiatric Medical History: Reports: Depression Denies: Alcohol Dependency, Substance Abuse, Tobacco Dependency Traumatic Medical History: Reports: None Hematology: Reports: Anemia, Sickle Cell Disease Denies: Bleeding Tendencies Infectious Medical History: Reports: None Past Surgical History Past Surgical History: Reports: Adenoidectomy, Cholecystectomy, Tonsillectomy, Other - Port placement 2 and removal for infection, multiple PICC lines, central l Social History Information Source: Patient Lives with: Alone Smoking Status: Never Smoker Electronic Cigarette use?: No Frequency of Alcohol Use: None Hx Recreational Drug Use: No Drugs: None Hx Prescription Drug Abuse: No - Advance Directive Resuscitation Status: Full Code Surrogate healthcare decision maker:: Wilda Cervantes Family History Family History: DM, Malignancy - Brother with Hodgkin's lymphoma. Maternal grandfather with lung cancer., Other - sickle trait in Mother and Father Parental Family History Reviewed: Yes Children Family History Reviewed: No Sibling(s) Family History Reviewed.: Yes Medication/Allergy Home Medications: Amlodipine Besylate [Norvasc 5 mg Tablet] 5 mg PO DAILY 04/16/17 Cetirizine HCl [Zyrtec 10 mg Tablet] 10 mg PO QHS 04/16/17 Folic Acid [Folvite 1 mg Tablet] 1 mg PO DAILY 04/16/17 Oxycodone HCl 15 mg PO Q6HP PRN 04/16/17 Amitriptyline HCl [Elavil 50 mg Tablet] 50 mg PO QHS 02/27/18 Butalb/Acetaminophen/Caffeine [Znrkcl-Myogrshr-Asua 50-325-40] 1 each PO Q4HP PRN 10/28/18 Temazepam [Restoril 15 mg Capsule] 15 mg PO HSP PRN 10/28/18 Amitriptyline HCl [Elavil 25 mg Tablet] 25 mg PO QAM 12/07/18 Hydromorphone HCl [Dilaudid] 4 mg PO Q6HP PRN #8 tablet 12/13/18 Oxycodone HCl 15 mg PO Q4HP PRN #8 tablet 12/13/18 Allergies/Adverse Reactions: ceftriaxone sodium [From Rocephin] Allergy (Verified 01/12/19 10:22) Cephalosporins Allergy (Verified 01/12/19 10:22) milk [Milk] Allergy (Verified 01/12/19 10:22) Shellfish * [Shellfish] Allergy (Verified 01/12/19 10:22) wheat [Wheat] Allergy (Verified 01/12/19 10:22) Review of Systems Constitutional: ABSENT: chills, fever(s) Eyes: ABSENT: visual disturbances, other - Eye pain Ears: ABSENT: hearing changes, other - Ear pain Nose, Mouth, and Throat: ABSENT: mouth pain, sore throat Cardiovascular: ABSENT: chest pain, palpitations Respiratory: ABSENT: cough, dyspnea Gastrointestinal: ABSENT: abdominal pain, constipation, diarrhea, nausea, vomi ting Genitourinary: ABSENT: dysuria, hematuria Musculoskeletal: ABSENT: back pain, joint swelling, muscle weakness Integumentary: ABSENT: pruritus, rash Neurological: ABSENT: confusion, convulsions, focal weakness, memory loss, syncope Psychiatric: ABSENT: anxiety, depression Endocrine: ABSENT: cold intolerance, heat intolerance Hematologic/Lymphatic: ABSENT: easy bleeding, easy bruising Allergic/Immunologic: ABSENT: seasonal rhinorrhea Physical Exam Vital Signs: Temp Pulse Resp BP Pulse Ox 98.4 F 102 H 19 135/82 H 98 05/21/19 16:29 05/21/19 16:29 05/21/19 20:01 05/21/19 20:01 05/21/19 20:01 Intake & Output 05/19/19 05/20/19 05/21/19 23:59 23:59 23:59 Intake Total 1999 Balance 1999 Weight 65.771 kg General appearance: PRESENT: cooperative, mild distress - Secondary to generalized pain of sickle cell crisis Head exam: PRESENT: atraumatic, normocephalic Eye exam: PRESENT: conjunctiva pink. ABSENT: conjunctival injection, scleral icterus Ear exam: PRESENT: normal external ear exam. ABSENT: bleeding, drainage Mouth exam: PRESENT: dry mucosa, neck supple Neck exam: ABSENT: thyromegaly, tracheal deviation Respiratory exam: PRESENT: clear to auscultation william, symmetrical, unlabored Cardiovascular exam: PRESENT: RRR. ABSENT: clicks, gallop, rubs Pulses: PRESENT: normal radial pulses, normal dorsalis pedis pul Vascular exam: PRESENT: normal capillary refill. ABSENT: pallor GI/Abdominal exam: PRESENT: normal bowel sounds, soft Rectal exam: PRESENT: deferred Extremities exam: ABSENT: joint swelling, pedal edema Musculoskeletal exam: ABSENT: deformity, dislocation Neurological exam: PRESENT: alert, oriented to person, oriented to place, oriented to time, oriented to situation, CN II-XII grossly intact. ABSENT: motor sensory deficit Psychiatric exam: PRESENT: appropriate affect, normal mood Skin exam: PRESENT: dry, intact, warm. ABSENT: jaundice, rash, urticaria Results Laboratory Results: 05/21/19 17:20 05/21/19 17:20 05/21/19 05/21/19 05/21/19 17:20 17:20 19:10 WBC 13.4 H RBC 2.09 L Hgb 7.8 L Hct 21.6 L MCV 104 H D MCH 37.3 H MCHC 36.1 H RDW 15.0 H Plt Count 412 Seg Neutrophils % 70.8 Retic Count (auto) 8.74 H Sodium 139.5 Potassium 3.9 Chloride 108 H Carbon Dioxide 20 L Anion Gap 12 BUN 2 L Creatinine 0.57 Est GFR ( Amer) > 60 Glucose 109 Calcium 9.5 Total Bilirubin 1.6 H AST 47 H Alkaline Phosphatase 55 Total Protein 7.2 Albumin 4.4 Urine Color YELLOW Urine Appearance CLEAR Urine pH 7.0 Ur Specific [place] 1.006 Urine Protein NEGATIVE Urine Glucose (UA) NEGATIVE Urine Ketones TRACE H Urine Blood NEGATIVE Urine Nitrite NEGATIVE Ur Leukocyte Esterase NEGATIVE Urine WBC (Auto) 1 Urine RBC (Auto) 1 Impressions: Chest X-Ray 05/21/19 21:03 IMPRESSION: No acute cardiopulmonary disease. Assessment and Plan - Diagnosis (1) Sickle cell pain crisis Is this a current diagnosis for this admission?: Yes (2) Homozygous sickle cell (SS) disease Is this a current diagnosis for this admission?: Yes (3) Sickle cell anemia Qualifiers: Sickle-cell associated disorders: with unspecified crisis Qualified Code(s): D57.00 - Hb-SS disease with crisis, unspecified; D57.0 - Hb-SS disease with crisis Is this a current diagnosis for this admission?: Yes (4) Qualifiers: Weeks of gestation: less than 8 weeks Qualified Code(s): Z3A.01 - Less than 8 weeks gestation of Is this a current diagnosis for this admission?: Yes - Plan Summary Summary: Patient is admitted to medical floor and consultations with hematology/oncology (Dr. Cornelius) and obstetrics/gynecology (Dr. Kevin) have been ordered. Patient will receive routine supportive and symptomatic cares. She will be treated specifically with IV fluids utilizing D5 LR and she will also receive analgesia with Dilaudid 1 to 4 mg IV every 2 hours as needed utilizing a sliding pain scale for dosage. Patient will have daily CBCs, metabolic profiles and magnesium levels obtained as part of her evaluation and treatment. - Time Time Spent with patient: 15-24 minutes Medications reviewed and adjusted accordingly: Yes Anticipated discharge: Home - Inpatient Certification Based on my medical assessment, after consideration of the patient's comorbidities, presenting symptoms, or acuity I expect that the services needed warrant INPATIENT care.: Yes I certify that my determination is in accordance with my understanding of Medicare's requirements for reasonable and necessary INPATIENT services [42 CFR 412.3e].: Yes Medical Necessity: Need Close Monitoring Due to Risk of Patient Decompensation, Need For IV Fluids, Need for Pain Control, Risk of Complication if Not Cared For in Hospital
[2019-05-22] MEDS: PROMETHAZINE HCL INJ 25 MG/1 ML VIAL IV PRN ×4 (03:14→18:48)
[2019-05-22] MEDS: HEPARIN SOD (PORCINE) 5,000 UNIT/ML 1 ML VIAL SUBCUT SCH ×3 (05:23→21:40)
[2019-05-22 07:27] LABS: ANION GAP 10 (5-19); CALCIUM 8.9 mg/dL (8.4-10.2); CARBON DIOXIDE 20 mmol/L (22-30); CHLORIDE 108 mmol/L (98-107); GLUCOSE 109 mg/dL (75-110); POTASSIUM 3.6 mmol/L (3.6-5.0)
--- NOTE | 2019-05-22 07:27 | PDOC CONSULTATION ---
Consultation Consult Date: 05/22/19 Provider Consulted: GOKUL BEAL Consult reason:: Sickle crisis at 7 wks of History of Present Illness Admission Date/PCP: 05/21/19 22:06 AMALIA OROZCO PA-C History of Present Illness: PRANAV JOINER is a 28 year old female in sickle crisis. Past Medical History LMP: 03/22/19 Gynecological Infection: No Obstetrical History: none Cardiac Medical History: Reports: Hypertension, Heart Murmur Denies: Coronary Artery Disease, Myocardial Infarction Pulmonary Medical History: Reports: Asthma, Pneumonia - 2017 Denies: Bronchitis, Chronic Obstructive Pulmonary Disease (COPD), Tuberculosis EENT Medical History: Denies: Cataracts, Ears - Hearing aids Neurological Medical History: Reports: Migraine, Seizures Denies: Hemorrhagic CVA, Ischemic CVA Endocrine Medical History: Denies: Diabetes Mellitus Type 1, Diabetes Mellitus Type 2, Hyperthyroidism, Hypothyroidism Renal/ Medical History: Denies: Chronic Kidney Disease, Nephrolithiasis Malignancy Medical History: Reports: None GI Medical History: Reports: Gastroesophageal Reflux Disease Denies: Cirrhosis, Hepatitis Musculoskeltal Medical History: Denies: Arthritis, Fibromyalgia, Gout Skin Medical History: Denies: Eczema, Psoriasis Psychiatric Medical History: Reports: Depression Denies: Alcohol Dependency, Substance Abuse, Tobacco Dependency Traumatic Medical History: Reports: None Infectious Medical History: Reports: None Social History Lives with: Alone Smoking Status: Never Smoker Electronic Cigarette use?: No Frequency of Alcohol Use: None Hx Recreational Drug Use: No Drugs: None Hx Prescription Drug Abuse: No - Advance Directive Resuscitation Status: Full Code Family History Family History: None, DM, Malignancy - Brother with Hodgkin's lymphoma. Maternal grandfather with lung cancer., Other - sickle trait in Mother and Father Parental Family History Reviewed: Yes Children Family History Reviewed: Yes Sibling(s) Family History Reviewed.: Yes Medication/Allergy Allergies/Adverse Reactions: ceftriaxone sodium [From Rocephin] Allergy (Verified 01/12/19 10:22) Cephalosporins Allergy (Verified 01/12/19 10:22) milk [Milk] Allergy (Verified 01/12/19 10:22) Shellfish * [Shellfish] Allergy (Verified 01/12/19 10:22) wheat [Wheat] Allergy (Verified 01/12/19 10:22) Physical Exam - Physical Exam Vital Signs: Temp Pulse Resp BP Pulse Ox 98.1 F 88 16 110/56 L 100 05/22/19 03:51 05/22/19 03:51 05/22/19 03:51 05/22/19 03:51 05/22/19 03:51 Intake & Output 05/21/19 05/22/19 05/23/19 06:59 06:59 06:59 Intake Total 3000 Balance 3000 Weight 65.9 kg General appearance: PRESENT: other - Pt is in pain today. Head exam: PRESENT: atraumatic, normocephalic GI/Abdominal exam: PRESENT: other - Abdomen and pelvis are the only areas that do no hurt Result Laboratory Results: 05/21/19 05/21/19 05/21/19 17:20 17:20 19:10 WBC 13.4 H RBC 2.09 L Hgb 7.8 L Hct 21.6 L MCV 104 H D MCH 37.3 H MCHC 36.1 H RDW 15.0 H Plt Count 412 Seg Neutrophils % 70.8 Retic Count (auto) 8.74 H Sodium 139.5 Potassium 3.9 Chloride 108 H Carbon Dioxide 20 L Anion Gap 12 BUN 2 L Creatinine 0.57 Est GFR ( Amer) > 60 Glucose 109 Calcium 9.5 Total Bilirubin 1.6 H AST 47 H Alkaline Phosphatase 55 Total Protein 7.2 Albumin 4.4 Urine Color YELLOW Urine Appearance CLEAR Urine pH 7.0 Ur Specific [place] 1.006 Urine Protein NEGATIVE Urine Glucose (UA) NEGATIVE Urine Ketones TRACE H Urine Blood NEGATIVE Urine Nitrite NEGATIVE Ur Leukocyte Esterase NEGATIVE Urine WBC (Auto) 1 Urine RBC (Auto) 1 Impressions: Chest X-Ray 05/21/19 21:03 IMPRESSION: No acute cardiopulmonary disease. Assessment & Plan - Diagnosis (1) Qualifiers: Weeks of gestation: less than 8 weeks Qualified Code(s): Z3A.01 - Less than 8 weeks gestation of Is this a current diagnosis for this admission?: Yes (2) Sickle cell pain crisis Is this a current diagnosis for this admission?: Yes - Time Critical Time spent with patient: 15-24 minutes - Plan Summary Plan Summary: Sickle crisis. Treat as sickle crisis is normally treated. Document viability with ob sono when she is feeling better. This could also be done in office when she leaves the hospital.
[2019-05-22 07:31] LABS: BLOOD UREA NITROGEN < 2 mg/dL (7-20)
[2019-05-22 07:42] LABS: HEMATOCRIT 21.5 % (36.0-47.0); MEAN CORPUSCULAR HEMOGLOBIN 35.5 pg (27.0-33.4); MEAN CORPUSCULAR HGB CONC 34.4 g/dL (32.0-36.0); MEAN CORPUSCULAR VOLUME 103 fl (80-97); PLATELET COUNT 396 10^3/uL (150-450); RED BLOOD COUNT 2.08 10^6/uL (3.72-5.28); RED CELL DISTRIBUTION WIDTH 14.8 % (11.5-14.0); WHITE BLOOD COUNT 12.3 10^3/uL (4.0-10.5)
[2019-05-22 07:48] LABS: HEMOGLOBIN 7.4 g/dL (12.0-15.5)
[2019-05-22] MEDS: DIPHENHYDRAMINE HCL 50 MG/ML VIAL IV PRN ×3 (08:19→18:49)
[2019-05-22] MEDS: NORMAL SALINE 1000 ML 1,000 ML IV PRN ×3 (08:37→23:05)
--- NOTE | 2019-05-22 09:05 | PDOC CONSULTATION ---
Consultation Consult Date: 05/22/19 Attending physician:: MARILYN DUBON Provider Consulted: BRUNA MENJIVAR Consult reason:: Severe sickle cell crisis, , anemia History of Present Illness Admission Date/PCP: 05/21/19 22:06 AMALIA OROZCO PA-C Patient complains of: Severe pain History of Present Illness: PRANAV JOINER is a 28 year old female with a known history of sickle cell disease here with severe crisis in the setting of , we have been giving her outpatient hydration and pain medications and she had been doing good with that and actually stayed out of the hospital for about 6 months almost. Recently she was noted with , we have set her up with the sickle cell clinic at [facility] with a high risk clinic to follow but she has not been able to make it up there yet. She comes in with her known crisis with chest pain, back pain, leg pain, this morning she is still in a lot of pain uncomfortable we discussed increasing Dilaudid. I also added K pad for comfort, PICC line placement because patient will lose access, added SCDs and MiraLAX Past Medical History Cardiac Medical History: Reports: Hypertension, Heart Murmur Denies: Coronary Artery Disease, Myocardial Infarction Pulmonary Medical History: Reports: Asthma, Pneumonia - 2017 Denies: Bronchitis, Chronic Obstructive Pulmonary Disease (COPD), Tuberculosis EENT Medical History: Denies: Cataracts, Ears - Hearing aids Neurological Medical History: Reports: Migraine, Seizures Denies: Hemorrhagic CVA, Ischemic CVA Endocrine Medical History: Denies: Diabetes Mellitus Type 1, Diabetes Mellitus Type 2, Hyperthyroidism, Hypothyroidism Renal/ Medical History: Denies: Chronic Kidney Disease, Nephrolithiasis Malignancy Medical History: Reports: None GI Medical History: Reports: Gastroesophageal Reflux Disease Denies: Cirrhosis, Hepatitis Musculoskeltal Medical History: Denies: Arthritis, Fibromyalgia, Gout Skin Medical History: Denies: Eczema, Psoriasis Psychiatric Medical History: Reports: Depression Denies: Alcohol Dependency, Substance Abuse, Tobacco Dependency Traumatic Medical History: Reports: None Hematology: Reports: Anemia, Sickle Cell Disease Denies: Bleeding Tendencies Infectious Medical History: Reports: None Past Surgical History Past Surgical History: Reports: Adenoidectomy, Cholecystectomy, Tonsillectomy, Other - Port placement 2 and removal for infection, multiple PICC lines, c entral l Denies: Hysterectomy, Pacemaker Social History Information Source: Patient Lives with: Alone Smoking Status: Never Smoker Electronic Cigarette use?: No Frequency of Alcohol Use: None Hx Recreational Drug Use: No Drugs: None Hx Prescription Drug Abuse: No - Advance Directive Resuscitation Status: Full Code Family History Family History: None, DM, Malignancy - Brother with Hodgkin's lymphoma. M aternal grandfather with lung cancer., Other - sickle trait in Mother and Father Parental Family History Reviewed: Yes Children Family History Reviewed: Yes Sibling(s) Family History Reviewed.: Yes Medication/Allergy Allergies/Adverse Reactions: ceftriaxone sodium [From Rocephin] Allergy (Verified 01/12/19 10:22) Cephalosporins Allergy (Verified 01/12/19 10:22) milk [Milk] Allergy (Verified 01/12/19 10:22) Shellfish * [Shellfish] Allergy (Verified 01/12/19 10:22) wheat [Wheat] Allergy (Verified 01/12/19 10:22) Review of Systems Constitutional: ABSENT: chills, fever(s), headache(s), weight gain, weight loss Eyes: ABSENT: visual disturbances Ears: ABSENT: hearing changes Cardiovascular: ABSENT: chest pain, dyspnea on exertion, edema, orthropnea, palpitations Respiratory: ABSENT: cough, hemoptysis Gastrointestinal: ABSENT: abdominal pain, constipation, diarrhea, hematemesis, hematochezia, nausea, vomiting Genitourinary: ABSENT: dysuria, hematuria Musculoskeletal: ABSENT: joint swelling Integumentary: ABSENT: rash, wounds Neurological: ABSENT: abnormal gait, abnormal speech, confusion, dizziness, focal weakness, syncope Psychiatric: ABSENT: anxiety, depression, homidical ideation, suicidal ideation Endocrine: ABSENT: cold intolerance, heat intolerance, polydipsia, polyuria Hematologic/Lymphatic: ABSENT: easy bleeding, easy bruising Physical Exam Vital Signs: Temp Pulse Resp BP Pulse Ox 98.3 F 75 16 105/72 97 05/22/19 07:31 05/22/19 07:31 05/22/19 07:31 05/22/19 07:31 05/22/19 07:31 Intake & Output 05/21/19 05/22/19 05/23/19 06:59 06:59 06:59 Intake Total 3000 Balance 3000 Weight 65.9 kg General appearance: PRESENT: no acute distress, well-developed, well-nourished Head exam: PRESENT: atraumatic, normocephalic Eye exam: PRESENT: conjunctiva pink, EOMI, PERRLA. ABSENT: scleral icterus Ear exam: PRESENT: normal external ear exam Mouth exam: PRESENT: moist, tongue midline Neck exam: ABSENT: carotid bruit, JVD, lymphadenopathy, thyromegaly Respiratory exam: PRESENT: clear to auscultation william. ABSENT: rales, rhonchi, wheezes Cardiovascular exam: PRESENT: RRR. ABSENT: diastolic murmur, rubs, systolic murmur Pulses: PRESENT: normal dorsalis pedis pul Vascular exam: PRESENT: normal capillary refill GI/Abdominal exam: PRESENT: normal bowel sounds, soft. ABSENT: distended, guarding, mass, organolmegaly, rebound, tenderness Rectal exam: PRESENT: deferred Extremities exam: PRESENT: full ROM. ABSENT: calf tenderness, clubbing, pedal edema Neurological exam: PRESENT: alert, awake, oriented to person, oriented to place, oriented to time, oriented to situation, CN II-XII grossly intact. ABSENT: motor sensory deficit Psychiatric exam: PRESENT: appropriate affect, normal mood. ABSENT: homicidal ideation, suicidal ideation Skin exam: PRESENT: dry, intact, warm. ABSENT: cyanosis, rash Results Laboratory Results: 05/22/19 06:53 05/22/19 06:53 05/21/19 05/21/19 05/21/19 17:20 17:20 19:10 WBC 13.4 H RBC 2.09 L Hgb 7.8 L Hct 21.6 L MCV 104 H D MCH 37.3 H MCHC 36.1 H RDW 15.0 H Plt Count 412 Seg Neutrophils % 70.8 Retic Count (auto) 8.74 H Sodium 139.5 Potassium 3.9 Chloride 108 H Carbon Dioxide 20 L Anion Gap 12 BUN 2 L Creatinine 0.57 Est GFR ( Amer) > 60 Glucose 109 Calcium 9.5 Magnesium Total Bilirubin 1.6 H AST 47 H Alkaline Phosphatase 55 Total Protein 7.2 Albumin 4.4 Urine Color YELLOW Urine Appearance CLEAR Urine pH 7.0 Ur Specific [place] 1.006 Urine Protein NEGATIVE Urine Glucose (UA) NEGATIVE Urine Ketones TRACE H Urine Blood NEGATIVE Urine Nitrite NEGATIVE Ur Leukocyte Esterase NEGATIVE Urine WBC (Auto) 1 Urine RBC (Auto) 1 05/22/19 05/22/19 06:53 06:53 WBC 12.3 H RBC 2.08 L Hgb 7.4 L Hct 21.5 L MCV 103 H MCH 35.5 H MCHC 34.4 RDW 14.8 H Plt Count 396 Seg Neutrophils % Retic Count (auto) Sodium 138.2 Potassium 3.6 Chloride 108 H Carbon Dioxide 20 L Anion Gap 10 BUN < 2 L Creatinine 0.37 L Est GFR ( Amer) > 60 Glucose 109 Calcium 8.9 Magnesium 1.7 Total Bilirubin AST Alkaline Phosphatase Total Protein Albumin Urine Color Urine Appearance Urine pH Ur Specific [place] Urine Protein Urine Glucose (UA) Urine Ketones Urine Blood Urine Nitrite Ur Leukocyte Esterase Urine WBC (Auto) Urine RBC (Auto) Impressions: Chest X-Ray 05/21/19 21:03 IMPRESSION: No acute cardiopulmonary disease. Assessment & Plan - Diagnosis (1) Sickle cell pain crisis Is this a current diagnosis for this admission?: Yes Plan: Severe, increase Dilaudid today, I will control her pain medications. Continue with supportive medications. 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 - Time Time Spent: Greater than 70 Minutes - Inpatient Certification Based on my medical assessment, after consideration of the patient's com orbidities, presenting symptoms, or acuity I expect that the services needed warrant INPATIENT care.: Yes I certify that my determination is in accordance with my understanding of Medicare's requirements for reasonable and necessary INPATIENT services [42 CFR 412.3e].: Yes Medical Necessity: Need For IV Fluids, Need for Pain Control
--- NOTE | 2019-05-22 09:18 | PDOC PROGRESS REPORT ---
Subjective Progress Note for:: 05/22/19 Subjective:: The patient has already been seen by hematology and obstetrics. The patient is writhing around in bed complaining of pain. She reports that she was just given a dose of pain medication approximately 20 minutes ago. The only area that does not hurt is her abdomen. Reason For Visit: ACUTE SICKLE CELL CRISIS,FIRST TRIMESTER Physical Exam Vital Signs: Temp Pulse Resp BP Pulse Ox 98.3 F 75 16 105/72 97 05/22/19 07:31 05/22/19 07:31 05/22/19 07:31 05/22/19 07:31 05/22/19 07:31 Intake & Output 05/21/19 05/22/19 05/23/19 06:59 06:59 06:59 Intake Total 3000 Balance 3000 Weight 65.9 kg General appearance: PRESENT: cooperative, severe distress, well-developed Head exam: PRESENT: atraumatic, normocephalic Eye exam: PRESENT: conjunctiva pale Ear exam: PRESENT: normal external ear exam. ABSENT: bleeding, drainage Mouth exam: PRESENT: moist, tongue midline Respiratory exam: PRESENT: clear to auscultation william, symmetrical, unlabored. ABSENT: rales, rhonchi, tachypnea, wheezes Cardiovascular exam: PRESENT: RRR, +S1, +S2, systolic murmur - 2/6 GI/Abdominal exam: PRESENT: normal bowel sounds, soft. ABSENT: distended, tenderness Rectal exam: PRESENT: deferred Gentrourinary exam: ABSENT: indwelling catheter Extremities exam: ABSENT: joint swelling, pedal edema Musculoskeletal exam: PRESENT: ambulatory, full ROM, normal inspection Neurological exam: PRESENT: alert, awake, oriented to person, oriented to place, oriented to time, oriented to situation, CN II-XII grossly intact Psychiatric exam: PRESENT: appropriate affect - Affect reflects her pain. ABSENT: agitated, anxious Focused psych exam: PRESENT: restlessness. ABSENT: delusional Skin exam: PRESENT: dry, warm. ABSENT: rash Results Laboratory Results: 05/22/19 06:53 05/22/19 06:53 05/21/19 05/21/19 05/21/19 17:20 17:20 19:10 WBC 13.4 H RBC 2.09 L Hgb 7.8 L Hct 21.6 L MCV 104 H D MCH 37.3 H MCHC 36.1 H RDW 15.0 H Plt Count 412 Seg Neutrophils % 70.8 Retic Count (auto) 8.74 H Sodium 139.5 Potassium 3.9 Chloride 108 H Carbon Dioxide 20 L Anion Gap 12 BUN 2 L Creatinine 0.57 Est GFR ( Amer) > 60 Glucose 109 Calcium 9.5 Magnesium Total Bilirubin 1.6 H AST 47 H Alkaline Phosphatase 55 Total Protein 7.2 Albumin 4.4 Urine Color YELLOW Urine Appearance CLEAR Urine pH 7.0 Ur Specific [place] 1.006 Urine Protein NEGATIVE Urine Glucose (UA) NEGATIVE Urine Ketones TRACE H Urine Blood NEGATIVE Urine Nitrite NEGATIVE Ur Leukocyte Esterase NEGATIVE Urine WBC (Auto) 1 Urine RBC (Auto) 1 05/22/19 05/22/19 06:53 06:53 WBC 12.3 H RBC 2.08 L Hgb 7.4 L Hct 21.5 L MCV 103 H MCH 35.5 H MCHC 34.4 RDW 14.8 H Plt Count 396 Seg Neutrophils % Retic Count (auto) Sodium 138.2 Potassium 3.6 Chloride 108 H Carbon Dioxide 20 L Anion Gap 10 BUN < 2 L Creatinine 0.37 L Est GFR ( Amer) > 60 Glucose 109 Calcium 8.9 Magnesium 1.7 Total Bilirubin AST Alkaline Phosphatase Total Protein Albumin Urine Color Urine Appearance Urine pH Ur Specific [place] Urine Protein Urine Glucose (UA) Urine Ketones Urine Blood Urine Nitrite Ur Leukocyte Esterase Urine WBC (Auto) Urine RBC (Auto) Impressions: Chest X-Ray 05/21/19 21:03 IMPRESSION: No acute cardiopulmonary disease. Assessment and Plan - Diagnosis (1) Sickle cell pain crisis Is this a current diagnosis for this admission?: Yes Plan: 05/22/2019-the patient is clearly in discomfort. Dr. Cornelius was in earlier and has revised her pain management orders. She will continue with IV fluids, oxygen and Dilaudid. (2) Qualifiers: Weeks of gestation: less than 8 weeks Qualified Code(s): Z3A.01 - Less than 8 weeks gestation of Is this a current diagnosis for this admission?: Yes Plan: 05/22/2019-obstetrics has seen the patient. No intervention at this time. The primary concern is the health of the mother. Will monitor closely. (3) Homozygous sickle cell (SS) disease Is this a current diagnosis for this admission?: Yes Plan: 05/22/2019-the patient sees Dr. Cornelius for hematology. Treatment for sickle cell crisis as above. (4) Chronic prescription opiate use Is this a current diagnosis for this admission?: Yes Plan: 05/22/2019-due to her underlying disease the patient is on chronic opiate therapy. 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 - Plan Summary Summary: Patient is admitted to medical floor and consultations with hematology/oncology (Dr. Cornelius) and obstetrics/gynecology (Dr. Kevin) have been ordered. Patient will receive routine supportive and symptomatic cares. She will be treated specifically with IV fluids utilizing D5 LR and she will also receive analgesia with Dilaudid 1 to 4 mg IV every 2 hours as needed utilizing a sliding pain scale for dosage. Patient will have daily CBCs, metabolic profiles and magnesium levels obtained as part of her evaluation and treatment. - Time Time Spent with patient: Less than 15 minutes Medications reviewed and adjusted accordingly: Yes Anticipated discharge: Home
[2019-05-22] MEDS: POLYETHYLENE GLYCOL 3350 POWDER 17 GM/1 PACKET PO PRN (11:31)
[2019-05-22] MEDS: DOCUSATE SODIUM 100 MG CAPSULE PO SCH ×2 (11:41→18:01)
--- NOTE | 2019-05-22 12:22 | RADIOLOGY REPORT (SQ) ---
EXAM DESCRIPTION: PICC INSERTION; FLUORO/CV PLACEMENT; U/S GUIDE FOR VASCULAR ACCESS COMPLETED DATE/TIME: 05/22/2019 10:58 am REASON FOR STUDY: IV ACCESS COMPARISON: None. FLUOROSCOPY TIME: 0.2 minutes. 1 image saved to PACS. TECHNIQUE: Refer to Procedure. LIMITATIONS: None. PROCEDURE: The procedure, risks, benefits, and alternatives were discussed with the patient in the p reprocedural area, and all questions were answered. Informed consent was obtained verbally and in wri ting. The patient was then brought to the procedural suite, positioned supine on the fluoroscopy table, and a time-out was performed. At first the left upper extremity was evaluated with ultrasound and the brachial vein was found to be patent and compressible. The left upper extremity was then prepped and draped with 2% chlorhexidine utilizing standard sterile technique. After the skin over the brachial vein was anesthetized with 1% lidocaine, ultrasound guidance was used to access the vessel with a 21-gauge needle - a sonographic i mage was stored for documentation. A 0.018 inch guidewire was then inserted through the needle and ad vanced under fluoroscopic guidance into the SVC. After that, the needle was exchanged over the guidew rebecca for a peel-away sheath. A 5 Upper Sorbian double -lumen PICC was then cut to the appropriate length of 3 7 cm, inserted through the sheath and advanced under fluoroscopic guidance into the SVC. After that, the peel-away sheath was removed and a fluoroscopic image of the chest was obtained to confirm proper position of the catheter tip within SVC. The lumens of the PICC were then aspirated, flushed with sterile saline and heparinized. At the end of the procedure the PICC was secured in place and a sterile dressing applied over it. The patient tolerated the procedure well without immediate complication. At the end of the procedure the patient's condition was unchanged from the preprocedural baseline. No IV conscious sedation was administered. Physiologic monitoring was provided before, during, and after the procedure. Documentation of [id number]-[id number] time performing proceduralist spent monitoring the patient: 15 minutes. IMPRESSION: SUCCESSFUL PLACEMENT OF A 5 MAORI X 37 CM DOUBLE LUMEN PICC VIA THE LEFT BRACHIAL VEIN UTILIZING FLUOROSCOPIC AND SONOGRAPHIC GUIDANCE. COMMENT: Patient medication list reviewed: Yes- Quality ID# 130:Eligible professional attests to doc umenting in the medical record they obtained, updated, or reviewed the patient's current medications. . Quality ID 145: Final reports for procedures using fluoroscopy that document radiation exposure rebecca angy, or exposure time and number of fluorographic images (if radiation exposure indices are not avail able) Quality ID #76: The patient was prepped and draped using maximum sterile barrier technique including cap, mask, sterile gown, sterile gloves, a large sterile sheet, hand hygiene, and 2% Chlorhexidine fo r cutaneous antisepsis. When ultrasound is used, sterile ultrasound techniques are followed requiring sterile gel and sterile probes. TECHNICAL DOCUMENTATION: JOB ID: [id number] [employer]- All Rights Reserved rev-11/22 Reading location - IP/workstation name: [email or web address]
--- NOTE | 2019-05-22 12:22 | RADIOLOGY REPORT (SQ) ---
EXAM DESCRIPTION: PICC INSERTION; FLUORO/CV PLACEMENT; U/S GUIDE FOR VASCULAR ACCESS COMPLETED DATE/TIME: 05/22/2019 10:58 am REASON FOR STUDY: IV ACCESS COMPARISON: None. FLUOROSCOPY TIME: 0.2 minutes. 1 image saved to PACS. TECHNIQUE: Refer to Procedure. LIMITATIONS: None. PROCEDURE: The procedure, risks, benefits, and alternatives were discussed with the patient in the p reprocedural area, and all questions were answered. Informed consent was obtained verbally and in wri ting. The patient was then brought to the procedural suite, positioned supine on the fluoroscopy table, and a time-out was performed. At first the left upper extremity was evaluated with ultrasound and the brachial vein was found to be patent and compressible. The left upper extremity was then prepped and draped with 2% chlorhexidine utilizing standard sterile technique. After the skin over the brachial vein was anesthetized with 1% lidocaine, ultrasound guidance was used to access the vessel with a 21-gauge needle - a sonographic i mage was stored for documentation. A 0.018 inch guidewire was then inserted through the needle and ad vanced under fluoroscopic guidance into the SVC. After that, the needle was exchanged over the guidew rebecca for a peel-away sheath. A 5 Sinhala double -lumen PICC was then cut to the appropriate length of 3 7 cm, inserted through the sheath and advanced under fluoroscopic guidance into the SVC. After that, the peel-away sheath was removed and a fluoroscopic image of the chest was obtained to confirm proper position of the catheter tip within SVC. The lumens of the PICC were then aspirated, flushed with sterile saline and heparinized. At the end of the procedure the PICC was secured in place and a sterile dressing applied over it. The patient tolerated the procedure well without immediate complication. At the end of the procedure the patient's condition was unchanged from the preprocedural baseline. No IV conscious sedation was administered. Physiologic monitoring was provided before, during, and after the procedure. Documentation of [id number]-vp-[id number] time performing proceduralist spent monitoring the patient: 15 minutes. IMPRESSION: SUCCESSFUL PLACEMENT OF A 5 BULGARIAN X 37 CM DOUBLE LUMEN PICC VIA THE LEFT BRACHIAL VEIN UTILIZING FLUOROSCOPIC AND SONOGRAPHIC GUIDANCE. COMMENT: Patient medication list reviewed: Yes- Quality ID# 130:Eligible professional attests to doc umenting in the medical record they obtained, updated, or reviewed the patient's current medications. . Quality ID 145: Final reports for procedures using fluoroscopy that document radiation exposure rebecca angy, or exposure time and number of fluorographic images (if radiation exposure indices are not avail able) Quality ID #76: The patient was prepped and draped using maximum sterile barrier technique including cap, mask, sterile gown, sterile gloves, a large sterile sheet, hand hygiene, and 2% Chlorhexidine fo r cutaneous antisepsis. When ultrasound is used, sterile ultrasound techniques are followed requiring sterile gel and sterile probes. TECHNICAL DOCUMENTATION: JOB ID: [id number] [employer]- All Rights Reserved rev-11/22 Reading location - IP/workstation name: [email or web address]
--- NOTE | 2019-05-22 12:22 | RADIOLOGY REPORT (SQ) ---
EXAM DESCRIPTION: PICC INSERTION; FLUORO/CV PLACEMENT; U/S GUIDE FOR VASCULAR ACCESS COMPLETED DATE/TIME: 05/22/2019 10:58 am REASON FOR STUDY: IV ACCESS COMPARISON: None. FLUOROSCOPY TIME: 0.2 minutes. 1 image saved to PACS. TECHNIQUE: Refer to Procedure. LIMITATIONS: None. PROCEDURE: The procedure, risks, benefits, and alternatives were discussed with the patient in the p reprocedural area, and all questions were answered. Informed consent was obtained verbally and in wri ting. The patient was then brought to the procedural suite, positioned supine on the fluoroscopy table, and a time-out was performed. At first the left upper extremity was evaluated with ultrasound and the brachial vein was found to be patent and compressible. The left upper extremity was then prepped and draped with 2% chlorhexidine utilizing standard sterile technique. After the skin over the brachial vein was anesthetized with 1% lidocaine, ultrasound guidance was used to access the vessel with a 21-gauge needle - a sonographic i mage was stored for documentation. A 0.018 inch guidewire was then inserted through the needle and ad vanced under fluoroscopic guidance into the SVC. After that, the needle was exchanged over the guidew rebecca for a peel-away sheath. A 5 Vietnamese double -lumen PICC was then cut to the appropriate length of 3 7 cm, inserted through the sheath and advanced under fluoroscopic guidance into the SVC. After that, the peel-away sheath was removed and a fluoroscopic image of the chest was obtained to confirm proper position of the catheter tip within SVC. The lumens of the PICC were then aspirated, flushed with sterile saline and heparinized. At the end of the procedure the PICC was secured in place and a sterile dressing applied over it. The patient tolerated the procedure well without immediate complication. At the end of the procedure the patient's condition was unchanged from the preprocedural baseline. No IV conscious sedation was administered. Physiologic monitoring was provided before, during, and after the procedure. Documentation of lniz-yu-eitb time performing proceduralist spent monitoring the patient: 15 minutes. IMPRESSION: SUCCESSFUL PLACEMENT OF A 5 UKRAINIAN X 37 CM DOUBLE LUMEN PICC VIA THE LEFT BRACHIAL VEIN UTILIZING FLUOROSCOPIC AND SONOGRAPHIC GUIDANCE. COMMENT: Patient medication list reviewed: Yes- Quality ID# 130:Eligible professional attests to doc umenting in the medical record they obtained, updated, or reviewed the patient's current medications. . Quality ID 145: Final reports for procedures using fluoroscopy that document radiation exposure rebecca angy, or exposure time and number of fluorographic images (if radiation exposure indices are not avail able) Quality ID #76: The patient was prepped and draped using maximum sterile barrier technique including cap, mask, sterile gown, sterile gloves, a large sterile sheet, hand hygiene, and 2% Chlorhexidine fo r cutaneous antisepsis. When ultrasound is used, sterile ultrasound techniques are followed requiring sterile gel and sterile probes. TECHNICAL DOCUMENTATION: JOB ID: [id number] [employer]- All Rights Reserved rev-11/22 Reading location - IP/workstation name: [email or web address]
[2019-05-22] MEDS: NORMAL SALINE 10 ML SDV (SCHEDULED) IV SCH (21:43)
[2019-05-23] MEDS: HYDROMORPHONE HCL INJ/PF 2 MG/ML AMPULE IV PRN ×9 (00:05→21:58)
[2019-05-23] MEDS: DIPHENHYDRAMINE HCL 50 MG/ML VIAL IV PRN ×5 (00:05→19:14)
[2019-05-23] MEDS: PROMETHAZINE HCL INJ 25 MG/1 ML VIAL IV PRN ×5 (00:05→19:14)
[2019-05-23 06:28] LABS: HEMATOCRIT 19.2 % (36.0-47.0); MEAN CORPUSCULAR HGB CONC 36.3 g/dL (32.0-36.0); MEAN CORPUSCULAR VOLUME 102 fl (80-97); PLATELET COUNT 368 10^3/uL (150-450); RED BLOOD COUNT 1.89 10^6/uL (3.72-5.28); WHITE BLOOD COUNT 9.4 10^3/uL (4.0-10.5)
[2019-05-23 06:33] LABS: ANION GAP 11 (5-19); CALCIUM 8.7 mg/dL (8.4-10.2); CARBON DIOXIDE 21 mmol/L (22-30); CHLORIDE 108 mmol/L (98-107); GLUCOSE 81 mg/dL (75-110)
[2019-05-23] MEDS: HEPARIN SOD (PORCINE) 5,000 UNIT/ML 1 ML VIAL SUBCUT SCH ×3 (06:46→21:55)
[2019-05-23 06:52] LABS: BLOOD UREA NITROGEN < 2 mg/dL (7-20)
[2019-05-23] MEDS: NORMAL SALINE 1000 ML 1,000 ML IV PRN ×3 (07:01→21:56)
--- NOTE | 2019-05-23 10:04 | PDOC PROGRESS REPORT ---
Subjective Progress Note for:: 05/23/19 Subjective:: Patient is still complaining of 5 out of 5 pain. States pain improved with pain medication and is okay with maintaining current regimen. Mild shortness of breath on ambulation. Describes pain to be everywhere besides her abdomen. Reason For Visit: ACUTE SICKLE CELL CRISIS,FIRST TRIMESTER Physical Exam Vital Signs: Temp Pulse Resp BP Pulse Ox 98.3 F 87 16 120/55 L 100 05/23/19 08:11 05/23/19 08:11 05/23/19 08:11 05/23/19 08:11 05/23/19 08:11 Intake & Output 05/22/19 05/23/19 05/24/19 06:59 06:59 06:59 Intake Total 3000 5758 Output Total 4800 700 Balance 3000 958 -700 Weight 65.9 kg 72.5 kg General appearance: PRESENT: no acute distress, cooperative Neck exam: ABSENT: JVD Respiratory exam: PRESENT: clear to auscultation william. ABSENT: accessory muscle use, tachypnea, unlabored, wheezes Cardiovascular exam: PRESENT: RRR, +S1, +S2. ABSENT: clicks, irregular rhythm GI/Abdominal exam: PRESENT: other - Gravid abdomen. ABSENT: ascites, firm, guarding, rigid, tenderness Musculoskeletal exam: PRESENT: ambulatory Neurological exam: PRESENT: alert, awake, oriented to person, oriented to place, oriented to time Results Laboratory Results: 05/23/19 05:14 05/23/19 05:14 05/21/19 05/23/19 05/23/19 17:20 05:14 05:14 WBC 13.4 H 9.4 RBC 2.09 L 1.89 L Hgb 7.8 L 7.0 L Hct 21.6 L 19.2 L MCV 104 H D 102 H MCH 37.3 H 37.0 H MCHC 36.1 H 36.3 H RDW 15.0 H 16.0 H Plt Count 412 368 Seg Neutrophils % 70.8 Retic Count (auto) 8.74 H Sodium 139.6 Potassium 4.0 Chloride 108 H Carbon Dioxide 21 L Anion Gap 11 BUN < 2 L Creatinine 0.35 L Est GFR ( Amer) > 60 Glucose 81 Calcium 8.7 Magnesium 1.8 Impressions: Chest X-Ray 05/21/19 21:03 IMPRESSION: No acute cardiopulmonary disease. Guidance Fluoroscopy 05/22/19 00:00 IMPRESSION: SUCCESSFUL PLACEMENT OF A 5 LAO X 37 CM DOUBLE LUMEN PICC VIA TH E LEFT BRACHIAL VEIN UTILIZING FLUOROSCOPIC AND SONOGRAPHIC GUIDANCE. Interventional Vascular Procedure 05/22/19 00:00 IMPRESSION: SUCCESSFUL PLACEMENT OF A 5 LAO X 37 CM DOUBLE LUMEN PICC VIA THE LEFT BRACHIAL VEIN UTILIZING FLUOROSCOPIC AND SONOGRAPHIC GUIDANCE. PICC Line Insertion 05/22/19 00:00 IMPRESSION: SUCCESSFUL PLACEMENT OF A 5 LAO X 37 CM DOUBLE LUMEN PICC VIA THE LEFT BRACHIAL VEIN UTILIZING FLUOROSCOPIC AND SONOGRAPHIC GUIDANCE. Assessment and Plan - Diagnosis (1) Sickle cell pain crisis Is this a current diagnosis for this admission?: Yes Plan: We will continue with IV fluids and IV pain medications. Supplemental oxygen. We will add incentive spirometer. Hematology following. (2) Qualifiers: Weeks of gestation: less than 8 weeks Qualified Code(s): Z3A.01 - Less than 8 weeks gestation of Is this a current diagnosis for this admission?: Yes Plan: Has been seen by OB. No intervention at this time. Will monitor closely. (3) Sickle cell anemia Qualifiers: Sickle-cell associated disorders: with unspecified crisis Qualified Code(s): D57.00 - Hb-SS disease with crisis, unspecified; D57.0 - Hb-SS disease with crisis Is this a current diagnosis for this admission?: Yes Plan: Monitor hemoglobin levels. Transfuse if drops below 7. - Time Time Spent with patient: 15-24 minutes
[2019-05-23] MEDS: DOCUSATE SODIUM 100 MG CAPSULE PO SCH ×2 (10:10→17:27)
[2019-05-23] MEDS: NORMAL SALINE 10 ML SDV (SCHEDULED) IV SCH (10:30)
--- NOTE | 2019-05-23 12:34 | PDOC PROGRESS REPORT ---
Subjective Progress Note for:: 05/23/19 Subjective:: No acute events overnight, will continue to adjust pain medications as needed Reason For Visit: ACUTE SICKLE CELL CRISIS,FIRST TRIMESTER Physical Exam Vital Signs: Temp Pulse Resp BP Pulse Ox 98.2 F 90 18 138/65 H 100 05/23/19 11:12 05/23/19 11:12 05/23/19 11:12 05/23/19 11:12 05/23/19 11:12 Intake & Output 05/22/19 05/23/19 05/24/19 06:59 06:59 06:59 Intake Total 3000 5758 Output Total 4800 700 Balance 3000 958 -700 Weight 65.9 kg 72.5 kg General appearance: PRESENT: no acute distress, well-developed, well-nourished Head exam: PRESENT: atraumatic, normocephalic Eye exam: PRESENT: conjunctiva pink, EOMI, PERRLA. ABSENT: scleral icterus Ear exam: PRESENT: normal external ear exam Mouth exam: PRESENT: moist, tongue midline Neck exam: ABSENT: carotid bruit, JVD, lymphadenopathy, thyromegaly Respiratory exam: PRESENT: clear to auscultation william. ABSENT: rales, rhonchi, wheezes Cardiovascular exam: PRESENT: RRR. ABSENT: diastolic murmur, rubs, systolic murmur Pulses: PRESENT: normal dorsalis pedis pul Vascular exam: PRESENT: normal capillary refill GI/Abdominal exam: PRESENT: normal bowel sounds, soft. ABSENT: distended, guarding, mass, organolmegaly, rebound, tenderness Rectal exam: PRESENT: deferred Extremities exam: PRESENT: full ROM. ABSENT: calf tenderness, clubbing, pedal edema Neurological exam: PRESENT: alert, awake, oriented to person, oriented to place, oriented to time, oriented to situation, CN II-XII grossly intact. ABSENT: motor sensory deficit Psychiatric exam: PRESENT: appropriate affect, normal mood. ABSENT: homicidal ideation, suicidal ideation Skin exam: PRESENT: dry, intact, warm. ABSENT: cyanosis, rash Results Laboratory Results: 05/23/19 05:14 05/23/19 05:14 05/23/19 05/23/19 05:14 05:14 WBC 9.4 RBC 1.89 L Hgb 7.0 L Hct 19.2 L MCV 102 H MCH 37.0 H MCHC 36.3 H RDW 16.0 H Plt Count 368 Sodium 139.6 Potassium 4.0 Chloride 108 H Carbon Dioxide 21 L Anion Gap 11 BUN < 2 L Creatinine 0.35 L Est GFR ( Amer) > 60 Glucose 81 Calcium 8.7 Magnesium 1.8 Impressions: Chest X-Ray 05/21/19 21:03 IMPRESSION: No acute cardiopulmonary disease. Guidance Fluoroscopy 05/22/19 00:00 IMPRESSION: SUCCESSFUL PLACEMENT OF A 5 SOMALI X 37 CM DOUBLE LUMEN PICC VIA THE LEFT BRACHIAL VEIN UTILIZING FLUOROSCOPIC AND SONOGRAPHIC GUIDANCE. Interventional Vascular Procedure 05/22/19 00:00 IMPRESSION: SUCCESSFUL PLACEMENT OF A 5 SOMALI X 37 CM DOUBLE LUMEN PICC VIA THE LEFT BRACHIAL VEIN UTILIZING FLUOROSCOPIC AND SONOGRAPHIC GUIDANCE. PICC Line Insertion 05/22/19 00:00 IMPRESSION: SUCCESSFUL PLACEMENT OF A 5 SOMALI X 37 CM DOUBLE LUMEN PICC VIA THE LEFT BRACHIAL VEIN UTILIZING FLUOROSCOPIC AND SONOGRAPHIC GUIDANCE. 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
[2019-05-24] MEDS: HYDROMORPHONE HCL INJ/PF 2 MG/ML AMPULE IV PRN ×11 (00:13→23:16)
[2019-05-24] MEDS: PROMETHAZINE HCL INJ 25 MG/1 ML VIAL IV PRN ×6 (00:14→23:17)
[2019-05-24] MEDS: DIPHENHYDRAMINE HCL 50 MG/ML VIAL IV PRN ×6 (00:14→23:17)
[2019-05-24] MEDS: HEPARIN SOD (PORCINE) 5,000 UNIT/ML 1 ML VIAL SUBCUT SCH ×3 (05:54→21:34)
[2019-05-24] MEDS: NORMAL SALINE 10 ML SDV (AFTER EACH USE) IV PRN (05:55)
[2019-05-24] MEDS: NORMAL SALINE 1000 ML 1,000 ML IV PRN (05:56)
[2019-05-24 06:51] LABS: HEMATOCRIT 17.6 % (36.0-47.0); MEAN CORPUSCULAR HEMOGLOBIN 35.9 pg (27.0-33.4); MEAN CORPUSCULAR HGB CONC 36.1 g/dL (32.0-36.0); MEAN CORPUSCULAR VOLUME 99 fl (80-97); PLATELET COUNT 363 10^3/uL (150-450); RED BLOOD COUNT 1.77 10^6/uL (3.72-5.28); RED CELL DISTRIBUTION WIDTH 17.4 % (11.5-14.0); WHITE BLOOD COUNT 8.8 10^3/uL (4.0-10.5)
[2019-05-24 06:53] LABS: HEMOGLOBIN 6.4 g/dL (12.0-15.5)
[2019-05-24 07:09] LABS: ANION GAP 10 (5-19); CALCIUM 8.3 mg/dL (8.4-10.2); CARBON DIOXIDE 21 mmol/L (22-30); CHLORIDE 105 mmol/L (98-107); GLUCOSE 82 mg/dL (75-110); POTASSIUM 3.2 mmol/L (3.6-5.0)
[2019-05-24 07:12] LABS: BLOOD UREA NITROGEN < 2 mg/dL (7-20)
[2019-05-24] MEDS: NORMAL SALINE 10 ML SDV (SCHEDULED) IV SCH ×3 (07:46→21:34)
[2019-05-24] MEDS: DOCUSATE SODIUM 100 MG CAPSULE PO SCH ×2 (11:37→18:25)
[2019-05-24] MEDS ORDERED: NORMAL SALINE 250 ML IV PRN ×2 (13:12)
--- NOTE | 2019-05-24 13:18 | PDOC PROGRESS REPORT ---
Subjective Progress Note for:: 05/24/19 Subjective:: No adverse events overnight. No new complaints. Vital signs been stable. Eating and drinking without difficulty. Reason For Visit: ACUTE SICKLE CELL CRISIS,FIRST TRIMESTER Physical Exam Vital Signs: Temp Pulse Resp BP Pulse Ox 98.3 F 95 18 93/64 L 93 05/24/19 12:00 05/24/19 12:00 05/24/19 12:00 05/24/19 12:00 05/24/19 12:00 Intake & Output 05/23/19 05/24/19 05/25/19 06:59 06:59 06:59 Intake Total 5758 3500 Output Total 4800 4301 300 Balance 958 -801 -300 Weight 72.5 kg 66.6 kg General appearance: PRESENT: no acute distress, cooperative, disheveled Respiratory exam: PRESENT: clear to auscultation william, symmetrical, unlabored. ABSENT: accessory muscle use, chest wall tenderness, crackles, prolonged expiratory phas, rhonchi, tachypnea, wheezes Cardiovascular exam: PRESENT: RRR, +S1, +S2 Pulses: PRESENT: normal carotid pulses Vascular exam: PRESENT: normal capillary refill GI/Abdominal exam: PRESENT: normal bowel sounds, soft. ABSENT: distended, guarding, rebound, tenderness Extremities exam: ABSENT: clubbing, pedal edema Musculoskeletal exam: PRESENT: normal inspection. ABSENT: deformity Neurological exam: PRESENT: alert, awake, oriented to person, oriented to place, oriented to situation Psychiatric exam: PRESENT: appropriate affect, normal mood Skin exam: PRESENT: dry, warm Results Laboratory Results: 05/24/19 06:10 05/24/19 06:10 05/24/19 05/24/19 06:10 06:10 WBC 8.8 RBC 1.77 L Hgb 6.4 L Hct 17.6 L MCV 99 H MCH 35.9 H MCHC 36.1 H RDW 17.4 H Plt Count 363 Sodium 136.4 L Potassium 3.2 L Chloride 105 Carbon Dioxide 21 L Anion Gap 10 BUN < 2 L Creatinine 0.36 L Est GFR ( Amer) > 60 Glucose 82 Calcium 8.3 L Magnesium 1.6 Impressions: Chest X-Ray 05/21/19 21:03 IMPRESSION: No acute cardiopulmonary disease. Guidance Fluoroscopy 05/22/19 00:00 IMPRESSION: SUCCESSFUL PLACEMENT OF A 5 POLISH X 37 CM DOUBLE LUMEN PICC VIA THE LEFT BRACHIAL VEIN UTILIZING FLUOROSCOPIC AND SONOGRAPHIC GUIDANCE. Interventional Vascular Procedure 05/22/19 00:00 IMPRESSION: SUCCESSFUL PLACEMENT OF A 5 POLISH X 37 CM DOUBLE LUMEN PICC VIA THE LEFT BRACHIAL VEIN UTILIZING FLUOROSCOPIC AND SONOGRAPHIC GUIDANCE. PICC Line Insertion 05/22/19 00:00 IMPRESSION: SUCCESSFUL PLACEMENT OF A 5 POLISH X 37 CM DOUBLE LUMEN PICC VIA THE LEFT BRACHIAL VEIN UTILIZING FLUOROSCOPIC AND SONOGRAPHIC GUIDANCE. Assessment and Plan - Diagnosis (1) Sickle cell pain crisis Is this a current diagnosis for this admission?: Yes Plan: Medication being managed by hematology. She is getting fluids and supplemental O2. Monitoring hemoglobin. (2) Acute on chronic anemia Is this a current diagnosis for this admission?: Yes Plan: Hemoglobin below 7, at least in part due to hemodilution. 1 unit of packed red blood cells has been ordered. (3) Qualifiers: Weeks of gestation: less than 8 weeks Qualified Code(s): Z3A.01 - Less than 8 weeks gestation of Is this a current diagnosis for this admission?: Yes Plan: Has been seen by OB. No intervention at this time. Will monitor closely. - Time Time Spent with patient: 15-24 minutes
[2019-05-24 22:29] LABS: HEMATOCRIT 20.5 % (36.0-47.0); MEAN CORPUSCULAR HEMOGLOBIN 34.7 pg (27.0-33.4); MEAN CORPUSCULAR HGB CONC 36.7 g/dL (32.0-36.0); PLATELET COUNT 359 10^3/uL (150-450); RED BLOOD COUNT 2.17 10^6/uL (3.72-5.28); RED CELL DISTRIBUTION WIDTH 19.3 % (11.5-14.0); WHITE BLOOD COUNT 10.1 10^3/uL (4.0-10.5)
[2019-05-24 22:30] LABS: MEAN CORPUSCULAR VOLUME 95 fl (80-97)
[2019-05-24 22:53] LABS: HEMOGLOBIN 7.5 g/dL (12.0-15.5)
[2019-05-25] MEDS: HYDROMORPHONE HCL INJ/PF 2 MG/ML AMPULE IV PRN ×9 (02:40→22:38)
[2019-05-25] MEDS: NORMAL SALINE 1000 ML 1,000 ML IV PRN ×3 (02:41→18:27)
[2019-05-25] MEDS: DIPHENHYDRAMINE HCL 50 MG/ML VIAL IV PRN ×4 (04:50→20:32)
[2019-05-25] MEDS: PROMETHAZINE HCL INJ 25 MG/1 ML VIAL IV PRN ×4 (04:50→20:32)
[2019-05-25] MEDS: HEPARIN SOD (PORCINE) 5,000 UNIT/ML 1 ML VIAL SUBCUT SCH ×3 (06:20→22:38)
--- NOTE | 2019-05-25 08:08 | PDOC PROGRESS REPORT ---
Subjective Progress Note for:: 05/25/19 Subjective:: Patient still having a lot of pain, not had bowel movement in 3 to 4 days, still feeling very nauseous and hard to keep much down Reason For Visit: ACUTE SICKLE CELL CRISIS,FIRST TRIMESTER Physical Exam Vital Signs: Temp Pulse Resp BP Pulse Ox 98.2 F 95 16 131/79 H 99 05/25/19 03:16 05/25/19 03:16 05/25/19 03:16 05/25/19 03:16 05/25/19 03:16 Intake & Output 05/24/19 05/25/19 05/26/19 06:59 06:59 06:59 Intake Total 3500 2880 Output Total 4301 4325 Balance -801 -1445 Weight 66.6 kg 66.6 kg General appearance: PRESENT: no acute distress, well-developed, well-nourished Head exam: PRESENT: atraumatic, normocephalic Eye exam: PRESENT: conjunctiva pink, EOMI, PERRLA. ABSENT: scleral icterus Ear exam: PRESENT: normal external ear exam Mouth exam: PRESENT: moist, tongue midline Neck exam: ABSENT: carotid bruit, JVD, lymphadenopathy, thyromegaly Respiratory exam: PRESENT: clear to auscultation william. ABSENT: rales, rhonchi, wheezes Cardiovascular exam: PRESENT: RRR. ABSENT: diastolic murmur, rubs, systolic murmur Pulses: PRESENT: normal dorsalis pedis pul Vascular exam: PRESENT: normal capillary refill GI/Abdominal exam: PRESENT: normal bowel sounds, soft. ABSENT: distended, guarding, mass, organolmegaly, rebound, tenderness Rectal exam: PRESENT: deferred Extremities exam: PRESENT: full ROM. ABSENT: calf tenderness, clubbing, pedal edema Neurological exam: PRESENT: alert, awake, oriented to person, oriented to place, oriented to time, oriented to situation, CN II-XII grossly intact. ABSENT: motor sensory deficit Psychiatric exam: PRESENT: appropriate affect, normal mood. ABSENT: homicidal ideation, suicidal ideation Skin exam: PRESENT: dry, intact, warm. ABSENT: cyanosis, rash Results Laboratory Results: 05/24/19 21:40 05/24/19 06:10 05/24/19 05/24/19 13:36 21:40 WBC 10.1 RBC 2.17 L Hgb 7.5 L Hct 20.5 L MCV 95 D MCH 34.7 H MCHC 36.7 H RDW 19.3 H Plt Count 359 Blood Type O POSITIVE Antibody Screen NEGATIVE Impressions: Chest X-Ray 05/21/19 21:03 IMPRESSION: No acute cardiopulmonary disease. Guidance Fluoroscopy 05/22/19 00:00 IMPRESSION: SUCCESSFUL PLACEMENT OF A 5 ICELANDIC X 37 CM DOUBLE LUMEN PICC VIA THE LEFT BRACHIAL VEIN UTILIZING FLUOROSCOPIC AND SONOGRAPHIC GUIDANCE. Interventional Vascular Procedure 05/22/19 00:00 IMPRESSION: SUCCESSFUL PLACEMENT OF A 5 ICELANDIC X 37 CM DOUBLE LUMEN PICC VIA THE LEFT BRACHIAL VEIN UTILIZING FLUOROSCOPIC AND SONOGRAPHIC GUIDANCE. PICC Line Insertion 05/22/19 00:00 IMPRESSION: SUCCESSFUL PLACEMENT OF A 5 ICELANDIC X 37 CM DOUBLE LUMEN PICC VIA THE LEFT BRACHIAL VEIN UTILIZING FLUOROSCOPIC AND SONOGRAPHIC GUIDANCE. 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3e].: Yes Medical Necessity: Need For IV Fluids, Need for Pain Control
[2019-05-25] MEDS: DOCUSATE SODIUM 100 MG CAPSULE PO SCH ×2 (10:21→17:21)
[2019-05-25] MEDS: FLUTICASONE NASAL SPRAY 50 MCG/SPRY 120 SPRAY/16 GM NASL SCH (10:47)
[2019-05-25] MEDS: NORMAL SALINE 10 ML SDV (SCHEDULED) IV SCH ×3 (10:48→22:39)
--- NOTE | 2019-05-25 13:47 | PDOC PROGRESS REPORT ---
Subjective Progress Note for:: 05/25/19 Subjective:: No adverse events overnight. No new complaints. Vital signs been stable. Said she had a little more nausea today. Reason For Visit: ACUTE SICKLE CELL CRISIS,FIRST TRIMESTER Physical Exam Vital Signs: Temp Pulse Resp BP Pulse Ox 98.3 F 94 16 125/80 99 05/25/19 08:32 05/25/19 08:32 05/25/19 08:32 05/25/19 08:32 05/25/19 08:32 Intake & Output 05/24/19 05/25/19 05/26/19 06:59 06:59 06:59 Intake Total 3500 2880 1000 Output Total 4301 4325 Balance -801 -1445 1000 Weight 66.6 kg 66.6 kg General appearance: PRESENT: no acute distress, cooperative, disheveled Respiratory exam: PRESENT: clear to auscultation william, symmetrical, unlabored. ABSENT: accessory muscle use, chest wall tenderness, crackles, prolonged expiratory phas, rhonchi, tachypnea, wheezes Cardiovascular exam: PRESENT: RRR, +S1, +S2 Pulses: PRESENT: normal carotid pulses Vascular exam: PRESENT: normal capillary refill GI/Abdominal exam: PRESENT: normal bowel sounds, soft. ABSENT: distended, guarding, rebound, tenderness Extremities exam: ABSENT: clubbing, pedal edema Musculoskeletal exam: PRESENT: normal inspection. ABSENT: deformity Neurological exam: PRESENT: alert, awake, oriented to person, oriented to place, oriented to situation Psychiatric exam: PRESENT: appropriate affect, normal mood Skin exam: PRESENT: dry, warm Results Laboratory Results: 05/24/19 21:40 05/24/19 06:10 05/24/19 05/24/19 13:36 21:40 WBC 10.1 RBC 2.17 L Hgb 7.5 L Hct 20.5 L MCV 95 D MCH 34.7 H MCHC 36.7 H RDW 19.3 H Plt Count 359 Blood Type O POSITIVE Antibody Screen NEGATIVE Impressions: Chest X-Ray 05/21/19 21:03 IMPRESSION: No acute cardiopulmonary disease. Guidance Fluoroscopy 05/22/19 00:00 IMPRESSION: SUCCESSFUL PLACEMENT OF A 5 ARMENIAN X 37 CM DOUBLE LUMEN PICC VIA THE LEFT BRACHIAL VEIN UTILIZING FLUOROSCOPIC AND SONOGRAPHIC GUIDANCE. Interventional Vascular Procedure 05/22/19 00:00 IMPRESSION: SUCCESSFUL PLACEMENT OF A 5 ARMENIAN X 37 CM DOUBLE LUMEN PICC VIA TH E LEFT BRACHIAL VEIN UTILIZING FLUOROSCOPIC AND SONOGRAPHIC GUIDANCE. PICC Line Insertion 05/22/19 00:00 IMPRESSION: SUCCESSFUL PLACEMENT OF A 5 ARMENIAN X 37 CM DOUBLE LUMEN PICC VIA THE LEFT BRACHIAL VEIN UTILIZING FLUOROSCOPIC AND SONOGRAPHIC GUIDANCE. Assessment and Plan - Diagnosis (1) Sickle cell pain crisis Is this a current diagnosis for this admission?: Yes Plan: Medication being managed by hematology. She is getting fluids and supplemental O2. Monitoring hemoglobin. (2) Acute on chronic anemia Is this a current diagnosis for this admission?: Yes Plan: Status post transfusion, hemoglobin came up from yesterday, plan to transfuse if hemoglobin drops below 7 again (3) Qualifiers: Weeks of gestation: less than 8 weeks Qualified Code(s): Z3A.01 - Less than 8 weeks gestation of Is this a current diagnosis for this admission?: Yes Plan: Has been seen by OB. No intervention at this time. Will monitor closely. - Time Time Spent with patient: 15-24 minutes
[2019-05-25] MEDS: NORMAL SALINE 10 ML SDV (AFTER EACH USE) IV PRN (20:33)
[2019-05-26] MEDS: DIPHENHYDRAMINE HCL 50 MG/ML VIAL IV PRN ×6 (00:53→23:48)
[2019-05-26] MEDS: PROMETHAZINE HCL INJ 25 MG/1 ML VIAL IV PRN ×6 (00:53→23:48)
[2019-05-26] MEDS: HYDROMORPHONE HCL INJ/PF 2 MG/ML AMPULE IV PRN ×11 (00:53→23:48)
[2019-05-26] MEDS: NORMAL SALINE 1000 ML 1,000 ML IV PRN ×4 (00:54→23:49)
[2019-05-26] MEDS: NORMAL SALINE 10 ML SDV (AFTER EACH USE) IV PRN (00:59)
[2019-05-26] MEDS: HEPARIN SOD (PORCINE) 5,000 UNIT/ML 1 ML VIAL SUBCUT SCH ×3 (05:37→21:39)
--- NOTE | 2019-05-26 08:28 | PDOC PROGRESS REPORT ---
Subjective Progress Note for:: 05/26/19 Subjective:: Patient doing a little bit better, still having a high level of pain, continued on current therapy Reason For Visit: ACUTE SICKLE CELL CRISIS,FIRST TRIMESTER Physical Exam Vital Signs: Temp Pulse Resp BP Pulse Ox 99.0 F 104 H 17 117/71 94 05/26/19 03:32 05/26/19 06:40 05/26/19 03:32 05/26/19 03:32 05/26/19 03:32 Intake & Output 05/25/19 05/26/19 05/27/19 06:59 06:59 06:59 Intake Total 2880 4810 1000 Output Total 4325 2400 Balance -1445 2410 1000 Weight 66.6 kg 68.6 kg General appearance: PRESENT: no acute distress, well-developed, well-nourished Head exam: PRESENT: atraumatic, normocephalic Eye exam: PRESENT: conjunctiva pink, EOMI, PERRLA. ABSENT: scleral icterus Ear exam: PRESENT: normal external ear exam Mouth exam: PRESENT: moist, tongue midline Neck exam: ABSENT: carotid bruit, JVD, lymphadenopathy, thyromegaly Respiratory exam: PRESENT: clear to auscultation william. ABSENT: rales, rhonchi, wheezes Cardiovascular exam: PRESENT: RRR. ABSENT: diastolic murmur, rubs, systolic murmur Pulses: PRESENT: normal dorsalis pedis pul Vascular exam: PRESENT: normal capillary refill GI/Abdominal exam: PRESENT: normal bowel sounds, soft. ABSENT: distended, guarding, mass, organolmegaly, rebound, tenderness Rectal exam: PRESENT: deferred Extremities exam: PRESENT: full ROM. ABSENT: calf tenderness, clubbing, pedal edema Neurological exam: PRESENT: alert, awake, oriented to person, oriented to place, oriented to time, oriented to situation, CN II-XII grossly intact. ABSENT: motor sensory deficit Psychiatric exam: PRESENT: appropriate affect, normal mood. ABSENT: homicidal ideation, suicidal ideation Skin exam: PRESENT: dry, intact, warm. ABSENT: cyanosis, rash Results Laboratory Results: 05/24/19 21:40 05/24/19 06:10 Impressions: Chest X-Ray 05/21/19 21:03 IMPRESSION: No acute cardiopulmonary disease. Guidance Fluoroscopy 05/22/19 00:00 IMPRESSION: SUCCESSFUL PLACEMENT OF A 5 TOGOLESE X 37 CM DOUBLE LUMEN PICC VIA THE LEFT BRACHIAL VEIN UTILIZING FLUOROSCOPIC AND SONOGRAPHIC GUIDANCE. Interventional Vascular Procedure 05/22/19 00:00 IMPRESSION: SUCCESSFUL PLACEMENT OF A 5 TOGOLESE X 37 CM DOUBLE LUMEN PICC VIA THE LEFT BRACHIAL VEIN UTILIZING FLUOROSCOPIC AND SONOGRAPHIC GUIDANCE. PICC Line Insertion 05/22/19 00:00 IMPRESSION: SUCCESSFUL PLACEMENT OF A 5 TOGOLESE X 37 CM DOUBLE LUMEN PICC VIA THE LEFT BRACHIAL VEIN UTILIZING FLUOROSCOPIC AND SONOGRAPHIC GUIDANCE. 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 Qualified Code(s): D58.2 - Other hemoglobinopathies Is this a current diagnosis for this admission?: Yes Plan: Hemoglobin last stable, continue to monitor every other day - Time Time Spent with patient: 15-24 minutes - Inpatient Certification Based on my medical assessment, after consideration of the patient's comorbidities, presenting symptoms, or acuity I expect that the services needed warrant INPATIENT care.: Yes I certify that my determination is in accordance with my understanding of Medicare's requirements for reasonable and necessary INPATIENT services [42 CFR 412.3e].: Yes Medical Necessity: Need For IV Fluids, Need for Pain Control
[2019-05-26] MEDS: FLUTICASONE NASAL SPRAY 50 MCG/SPRY 120 SPRAY/16 GM NASL SCH (10:23)
[2019-05-26] MEDS: DOCUSATE SODIUM 100 MG CAPSULE PO SCH ×2 (10:23→17:02)
[2019-05-26] MEDS: NORMAL SALINE 10 ML SDV (SCHEDULED) IV SCH ×2 (10:23→21:44)
--- NOTE | 2019-05-26 15:52 | PDOC PROGRESS REPORT ---
Subjective Progress Note for:: 05/26/19 Subjective:: No adverse events overnight. No new complaints. Vital signs been stable. Eating and drinking without difficulty. Reason For Visit: ACUTE SICKLE CELL CRISIS,FIRST TRIMESTER Physical Exam Vital Signs: Temp Pulse Resp BP Pulse Ox 98.3 F 98 18 133/101 H 97 05/26/19 11:29 05/26/19 13:54 05/26/19 11:29 05/26/19 11:29 05/26/19 11:29 Intake & Output 05/25/19 05/26/19 05/27/19 06:59 06:59 06:59 Intake Total 2880 4810 2870 Output Total 4325 2400 2200 Balance -1445 2410 670 Weight 66.6 kg 68.6 kg General appearance: PRESENT: no acute distress, cooperative, disheveled Respiratory exam: PRESENT: clear to auscultation william, symmetrical, unlabored. ABSENT: accessory muscle use, chest wall tenderness, crackles, prolonged expiratory phas, rhonchi, tachypnea, wheezes Cardiovascular exam: PRESENT: RRR, +S1, +S2 Pulses: PRESENT: normal carotid pulses Vascular exam: PRESENT: normal capillary refill GI/Abdominal exam: PRESENT: normal bowel sounds, soft. ABSENT: distended, gu arding, rebound, tenderness Extremities exam: ABSENT: clubbing, pedal edema Musculoskeletal exam: PRESENT: normal inspection. ABSENT: deformity Neurological exam: PRESENT: alert, awake, oriented to person, oriented to place, oriented to situation Psychiatric exam: PRESENT: appropriate affect, normal mood Skin exam: PRESENT: dry, warm Results Laboratory Results: 05/24/19 21:40 05/24/19 06:10 Impressions: Chest X-Ray 05/21/19 21:03 IMPRESSION: No acute cardiopulmonary disease. Guidance Fluoroscopy 05/22/19 00:00 IMPRESSION: SUCCESSFUL PLACEMENT OF A 5 ARMENIAN X 37 CM DOUBLE LUMEN PICC VIA THE LEFT BRACHIAL VEIN UTILIZING FLUOROSCOPIC AND SONOGRAPHIC GUIDANCE. Interventional Vascular Procedure 05/22/19 00:00 IMPRESSION: SUCCESSFUL PLACEMENT OF A 5 ARMENIAN X 37 CM DOUBLE LUMEN PICC VIA THE LEFT BRACHIAL VEIN UTILIZING FLUOROSCOPIC AND SONOGRAPHIC GUIDANCE. PICC Line Insertion 05/22/19 00:00 IMPRESSION: SUCCESSFUL PLACEMENT OF A 5 ARMENIAN X 37 CM DOUBLE LUMEN PICC VIA THE LEFT BRACHIAL VEIN UTILIZING FLUOROSCOPIC AND SONOGRAPHIC GUIDANCE. Assessment and Plan - Diagnosis (1) Sickle cell pain crisis Is this a current diagnosis for this admission?: Yes Plan: Medication being managed by hematology. She is getting fluids and supplemental O2. Monitoring hemoglobin. (2) Acute on chronic anemia Is this a current diagnosis for this admission?: Yes Plan: Status post transfusion, plan to transfuse if hemoglobin drops below 7 again (3) Qualifiers: Weeks of gestation: less than 8 weeks Qualified Code(s): Z3A.01 - Less than 8 weeks gestation of Is this a current diagnosis for this admission?: Yes Plan: Has been seen by OB. No intervention at this time. Will monitor closely. - Time Time Spent with patient: 15-24 minutes
[2019-05-27] MEDS: HYDROMORPHONE HCL INJ/PF 2 MG/ML AMPULE IV PRN ×10 (01:48→22:12)
[2019-05-27] MEDS: DIPHENHYDRAMINE HCL 50 MG/ML VIAL IV PRN ×5 (03:56→22:12)
[2019-05-27] MEDS: PROMETHAZINE HCL INJ 25 MG/1 ML VIAL IV PRN ×5 (03:58→22:12)
[2019-05-27] MEDS: HEPARIN SOD (PORCINE) 5,000 UNIT/ML 1 ML VIAL SUBCUT SCH ×3 (05:55→22:11)
[2019-05-27] MEDS: NORMAL SALINE 1000 ML 1,000 ML IV PRN ×3 (05:55→20:08)
--- NOTE | 2019-05-27 08:07 | PDOC PROGRESS REPORT ---
Subjective Progress Note for:: 05/27/19 Subjective:: Pt still w/ pain though controlled on current regimen Reason For Visit: ACUTE SICKLE CELL CRISIS,FIRST TRIMESTER Physical Exam Vital Signs: Temp Pulse Resp BP Pulse Ox 98.5 F 109 H 22 H 124/84 96 05/27/19 03:59 05/27/19 03:59 05/27/19 03:59 05/27/19 03:59 05/27/19 04:50 Intake & Output 05/26/19 05/27/19 05/28/19 06:59 06:59 06:59 Intake Total 4810 7951 Output Total 2400 8500 Balance 2410 -549 Weight 68.6 kg 68.7 kg General appearance: PRESENT: no acute distress, well-developed, well-nourished Head exam: PRESENT: atraumatic, normocephalic Eye exam: PRESENT: conjunctiva pink, EOMI, PERRLA. ABSENT: scleral icterus Ear exam: PRESENT: normal external ear exam Mouth exam: PRESENT: moist, tongue midline Neck exam: ABSENT: carotid bruit, JVD, lymphadenopathy, thyromegaly Respiratory exam: PRESENT: clear to auscultation william. ABSENT: rales, rhonchi, wheezes Cardiovascular exam: PRESENT: RRR. ABSENT: diastolic murmur, rubs, systolic murmur Pulses: PRESENT: normal dorsalis pedis pul Vascular exam: PRESENT: normal capillary refill GI/Abdominal exam: PRESENT: normal bowel sounds, soft. ABSENT: distended, guarding, mass, organolmegaly, rebound, tenderness Rectal exam: PRESENT: deferred Extremities exam: PRESENT: full ROM. ABSENT: calf tenderness, clubbing, pedal edema Neurological exam: PRESENT: alert, awake, oriented to person, oriented to place, oriented to time, oriented to situation, CN II-XII grossly intact. ABSENT: motor sensory deficit Psychiatric exam: PRESENT: appropriate affect, normal mood. ABSENT: homicidal ideation, suicidal ideation Skin exam: PRESENT: dry, intact, warm. ABSENT: cyanosis, rash Results Laboratory Results: 05/24/19 21:40 05/24/19 06:10 Impressions: Chest X-Ray 05/21/19 21:03 IMPRESSION: No acute cardiopulmonary disease. Guidance Fluoroscopy 05/22/19 00:00 IMPRESSION: SUCCESSFUL PLACEMENT OF A 5 ISRAELI X 37 CM DOUBLE LUMEN PICC VIA THE LEFT BRACHIAL VEIN UTILIZING FLUOROSCOPIC AND SONOGRAPHIC GUIDANCE. Interventional Vascular Procedure 05/22/19 00:00 IMPRESSION: SUCCESSFUL PLACEMENT OF A 5 ISRAELI X 37 CM DOUBLE LUMEN PICC VIA THE LEFT BRACHIAL VEIN UTILIZING FLUOROSCOPIC AND SONOGRAPHIC GUIDANCE. PICC Line Insertion 05/22/19 00:00 IMPRESSION: SUCCESSFUL PLACEMENT OF A 5 ISRAELI X 37 CM DOUBLE LUMEN PICC VIA THE LEFT BRACHIAL VEIN UTILIZING FLUOROSCOPIC AND SONOGRAPHIC GUIDANCE. 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
[2019-05-27] MEDS: NORMAL SALINE 10 ML SDV (SCHEDULED) IV SCH ×2 (09:28→22:13)
[2019-05-27] MEDS: DOCUSATE SODIUM 100 MG CAPSULE PO SCH ×2 (09:28→17:52)
[2019-05-27] MEDS: FLUTICASONE NASAL SPRAY 50 MCG/SPRY 120 SPRAY/16 GM NASL SCH (09:28)
--- NOTE | 2019-05-27 18:58 | PDOC PROGRESS REPORT ---
Subjective Progress Note for:: 05/27/19 Subjective:: No adverse events overnight. No new complaints. Vital signs been stable. Eating and drinking without difficulty. Reason For Visit: ACUTE SICKLE CELL CRISIS,FIRST TRIMESTER Physical Exam Vital Signs: Temp Pulse Resp BP Pulse Ox 98.1 F 91 17 115/65 83 L 05/27/19 07:50 05/27/19 07:50 05/27/19 07:50 05/27/19 07:50 05/27/19 07:50 Intake & Output 05/26/19 05/27/19 05/28/19 06:59 06:59 06:59 Intake Total 4810 7951 1720 Output Total 2400 8500 2320 Balance 9291 -104 -075 Weight 68.6 kg 68.7 kg General appearance: PRESENT: no acute distress, cooperative, disheveled Respiratory exam: PRESENT: clear to auscultation william, symmetrical, unlabored. ABSENT: accessory muscle use, chest wall tenderness, crackles, prolonged expiratory phas, rhonchi, tachypnea, wheezes Cardiovascular exam: PRESENT: RRR, +S1, +S2 Pulses: PRESENT: normal carotid pulses Vascular exam: PRESENT: normal capillary refill GI/Abdominal exam: PRESENT: normal bowel sounds, soft. ABSENT: distended, gua rding, rebound, tenderness Extremities exam: ABSENT: clubbing, pedal edema Musculoskeletal exam: PRESENT: normal inspection. ABSENT: deformity Neurological exam: PRESENT: alert, awake, oriented to person, oriented to place, oriented to situation Psychiatric exam: PRESENT: appropriate affect, normal mood Skin exam: PRESENT: dry, warm Results Laboratory Results: 05/24/19 21:40 05/24/19 06:10 Impressions: Chest X-Ray 05/21/19 21:03 IMPRESSION: No acute cardiopulmonary disease. Guidance Fluoroscopy 05/22/19 00:00 IMPRESSION: SUCCESSFUL PLACEMENT OF A 5 BAHAMIAN X 37 CM DOUBLE LUMEN PICC VIA THE LEFT BRACHIAL VEIN UTILIZING FLUOROSCOPIC AND SONOGRAPHIC GUIDANCE. Interventional Vascular Procedure 05/22/19 00:00 IMPRESSION: SUCCESSFUL PLACEMENT OF A 5 BAHAMIAN X 37 CM DOUBLE LUMEN PICC VIA THE LEFT BRACHIAL VEIN UTILIZING FLUOROSCOPIC AND SONOGRAPHIC GUIDANCE. PICC Line Insertion 05/22/19 00:00 IMPRESSION: SUCCESSFUL PLACEMENT OF A 5 BAHAMIAN X 37 CM DOUBLE LUMEN PICC VIA THE LEFT BRACHIAL VEIN UTILIZING FLUOROSCOPIC AND SONOGRAPHIC GUIDANCE. Assessment and Plan - Diagnosis (1) Sickle cell pain crisis Is this a current diagnosis for this admission?: Yes Plan: Medication being managed by hematology. She is getting fluids and supplemental O2. Monitoring hemoglobin. (2) Acute on chronic anemia Is this a current diagnosis for this admission?: Yes Plan: Status post transfusion, plan to transfuse if hemoglobin drops below 7 again (3) Qualifiers: Weeks of gestation: 8 weeks Qualified Code(s): Z3A.08 - 8 weeks gestation of Is this a current diagnosis for this admission?: Yes Plan: Has been seen by OB. No intervention at this time. Will monitor closely. - Time Time Spent with patient: 15-24 minutes
[2019-05-28] MEDS: HYDROMORPHONE HCL INJ/PF 2 MG/ML AMPULE IV PRN ×10 (00:21→22:10)
[2019-05-28] MEDS: PROMETHAZINE HCL INJ 25 MG/1 ML VIAL IV PRN ×5 (02:20→22:11)
[2019-05-28] MEDS: DIPHENHYDRAMINE HCL 50 MG/ML VIAL IV PRN ×5 (02:20→22:11)
[2019-05-28] MEDS: NORMAL SALINE 1000 ML 1,000 ML IV PRN ×2 (03:05→10:58)
[2019-05-28] MEDS: HEPARIN SOD (PORCINE) 5,000 UNIT/ML 1 ML VIAL SUBCUT SCH ×3 (06:25→22:11)
--- NOTE | 2019-05-28 08:55 | PDOC PROGRESS REPORT ---
Subjective Progress Note for:: 05/28/19 Subjective:: Still with considerable pain, still requiring every 2 hours. Reason For Visit: ACUTE SICKLE CELL CRISIS,FIRST TRIMESTER Physical Exam Vital Signs: Temp Pulse Resp BP Pulse Ox 97.4 F 85 20 111/71 97 05/28/19 07:40 05/28/19 07:40 05/28/19 07:40 05/28/19 07:40 05/28/19 07:40 Intake & Output 05/27/19 05/28/19 05/29/19 06:59 06:59 06:59 Intake Total 7951 5338 Output Total 8500 5120 Balance -549 218 Weight 68.7 kg 65.5 kg General appearance: PRESENT: no acute distress, well-developed, well-nourished Head exam: PRESENT: atraumatic, normocephalic Eye exam: PRESENT: conjunctiva pink, EOMI, PERRLA. ABSENT: scleral icterus Ear exam: PRESENT: normal external ear exam Mouth exam: PRESENT: moist, tongue midline Neck exam: ABSENT: carotid bruit, JVD, lymphadenopathy, thyromegaly Respiratory exam: PRESENT: clear to auscultation william. ABSENT: rales, rhonchi, wheezes Cardiovascular exam: PRESENT: RRR. ABSENT: diastolic murmur, rubs, systolic murmur Pulses: PRESENT: normal dorsalis pedis pul Vascular exam: PRESENT: normal capillary refill GI/Abdominal exam: PRESENT: normal bowel sounds, soft. ABSENT: distended, guarding, mass, organolmegaly, rebound, tenderness Rectal exam: PRESENT: deferred Extremities exam: PRESENT: full ROM. ABSENT: calf tenderness, clubbing, pedal edema Neurological exam: PRESENT: alert, awake, oriented to person, oriented to place, oriented to time, oriented to situation, CN II-XII grossly intact. ABSENT: motor sensory deficit Psychiatric exam: PRESENT: appropriate affect, normal mood. ABSENT: homicidal ideation, suicidal ideation Skin exam: PRESENT: dry, intact, warm. ABSENT: cyanosis, rash Results Laboratory Results: 05/24/19 21:40 05/24/19 06:10 Impressions: Chest X-Ray 05/21/19 21:03 IMPRESSION: No acute cardiopulmonary disease. Guidance Fluoroscopy 05/22/19 00:00 IMPRESSION: SUCCESSFUL PLACEMENT OF A 5 CITIZ[place] X 37 CM DOUBLE LUMEN PICC VIA THE LEFT BRACHIAL VEIN UTILIZING FLUOROSCOPIC AND SONOGRAPHIC GUIDANCE. Interventional Vascular Procedure 05/22/19 00:00 IMPRESSION: SUCCESSFUL PLACEMENT OF A 5 [place]IZ[place] X 37 CM DOUBLE LUMEN PICC VIA THE LEFT BRACHIAL VEIN UTILIZING FLUOROSCOPIC AND SONOGRAPHIC GUIDANCE. PICC Line Insertion 05/22/19 00:00 IMPRESSION: SUCCESSFUL PLACEMENT OF A 5 [place]IZEN [place] X 37 CM DOUBLE LUMEN PICC VIA THE LEFT BRACHIAL VEIN UTILIZING FLUOROSCOPIC AND SONOGRAPHIC GUIDANCE. 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
[2019-05-28 09:07] LABS: HEMATOCRIT 16.7 % (36.0-47.0); MEAN CORPUSCULAR HEMOGLOBIN 34.6 pg (27.0-33.4); MEAN CORPUSCULAR VOLUME 96 fl (80-97); PLATELET COUNT 270 10^3/uL (150-450); RED BLOOD COUNT 1.74 10^6/uL (3.72-5.28); RED CELL DISTRIBUTION WIDTH 19.9 % (11.5-14.0); WHITE BLOOD COUNT 7.1 10^3/uL (4.0-10.5)
[2019-05-28 09:31] LABS: ABSOLUTE LYMPHOCYTES# (MANUAL) 2.3 10^3/uL (0.5-4.7); ABSOLUTE MONOCYTES # (MANUAL) 0.4 10^3/uL (0.1-1.4); ALBUMIN 2.9 g/dL (3.5-5.0); ALKALINE PHOSPHATASE 41 U/L (38-126); ANION GAP 10 (5-19); ASPARTATE AMINO TRANSFERASE 38 U/L (14-36); BASOPHILS % (MANUAL) 0 % (0-2); BILIRUBIN,DIRECT 0.4 mg/dL (0.0-0.4); BILIRUBIN,TOTAL 2.5 mg/dL (0.2-1.3); CARBON DIOXIDE 20 mmol/L (22-30); CHLORIDE 112 mmol/L (98-107); EOSINOPHILS % (MANUAL) 2 % (0-6); GLUCOSE 70 mg/dL (75-110); LYMPHOCYTES % (MANUAL) 31 % (13-45); MONOCYTES % (MANUAL) 6 % (3-13); NUCLEATED RED BLOOD CELLS 7 /100 WBC (0); SEGMENTED NEUTROPHILS % (MAN) 60 % (42-78); TOTAL CELLS COUNTED 100; TOTAL PROTEIN 5.3 g/dL (6.3-8.2)
[2019-05-28 09:34] LABS: ANISOCYTOSIS 2+; OVALOCYTES 1+; PAPPENHEIMER BODIES PRESENT; POIKILOCYTOSIS 2+; POLYCHROMASIA 1+; SICKLE RED CELLS SLIGHT; TARGET CELLS SLIGHT; TEAR DROP CELLS SLIGHT
[2019-05-28 09:35] LABS: PLATELET COMMENT ADEQUATE
[2019-05-28 09:39] LABS: BLOOD UREA NITROGEN < 2 mg/dL (7-20)
[2019-05-28 09:41] LABS: CALCIUM 6.9 mg/dL (8.4-10.2); POTASSIUM 2.2 mmol/L (3.6-5.0)
[2019-05-28] MEDS ORDERED: DIPHENHYDRAMINE HCL 25 MG CAPSULE PO PRN (10:25)
[2019-05-28] MEDS ORDERED: ACETAMINOPHEN 325 MG TABLET PO PRN (10:25)
[2019-05-28] MEDS ORDERED: FUROSEMIDE INJ/PF 20 MG/2 ML SDV IV PRN (10:25)
[2019-05-28] MEDS ORDERED: NORMAL SALINE 250 ML IV PRN ×2 (10:25)
[2019-05-28] MEDS: POLYETHYLENE GLYCOL 3350 POWDER 17 GM/1 PACKET PO PRN (11:01)
[2019-05-28] MEDS: DOCUSATE SODIUM 100 MG CAPSULE PO SCH ×2 (11:01→18:42)
[2019-05-28] MEDS: NORMAL SALINE 10 ML SDV (SCHEDULED) IV SCH ×2 (11:01→22:12)
[2019-05-28] MEDS: POTASSI CL 20 MEQ/50 ML RIDER 20 MEQ/50 ML RTUPB IV SCH ×3 (11:02→20:47)
[2019-05-28] MEDS ORDERED: CALCIUM GLUCONATE 2,000 MG in DEXTROSE 5%-WATER 100 ML IV ONE (12:00)
[2019-05-28] MEDS: FLUTICASONE NASAL SPRAY 50 MCG/SPRY 120 SPRAY/16 GM NASL SCH (12:02)
--- NOTE | 2019-05-28 15:43 | PDOC PROGRESS REPORT ---
Subjective Progress Note for:: 05/28/19 Subjective:: No adverse events overnight. Patient seems to have a very strange affect this morning, very energetic with some motor agitation. Labs were checked and showed that she had some electrolyte disturbances and that her hemoglobin was dropping again. Reason For Visit: ACUTE SICKLE CELL CRISIS,FIRST TRIMESTER Physical Exam Vital Signs: Temp Pulse Resp BP Pulse Ox 98.2 F 74 17 131/70 H 95 05/28/19 14:08 05/28/19 14:08 05/28/19 14:08 05/28/19 14:08 05/28/19 14:08 Intake & Output 05/27/19 05/28/19 05/29/19 06:59 06:59 06:59 Intake Total 7951 5338 1050 Output Total 8500 5120 Balance -492 982 0358 Weight 68.7 kg 65.5 kg General appearance: PRESENT: no acute distress, cooperative, disheveled Respiratory exam: PRESENT: clear to auscultation william, symmetrical, unlabored. A BSENT: accessory muscle use, chest wall tenderness, crackles, prolonged expiratory phas, rhonchi, tachypnea, wheezes Cardiovascular exam: PRESENT: RRR, +S1, +S2 Pulses: PRESENT: normal carotid pulses Vascular exam: PRESENT: normal capillary refill GI/Abdominal exam: PRESENT: normal bowel sounds, soft. ABSENT: distended, guarding, rebound, tenderness Extremities exam: ABSENT: clubbing, pedal edema Musculoskeletal exam: PRESENT: normal inspection. ABSENT: deformity Neurological exam: PRESENT: alert, awake, oriented to person, oriented to place, oriented to situation Psychiatric exam: PRESENT: Unusual affect, seemed to display some motor agitation Skin exam: PRESENT: dry, warm Results Laboratory Results: 05/28/19 08:21 05/28/19 08:21 05/28/19 05/28/19 05/28/19 08:21 08:21 11:12 WBC 7.1 RBC 1.74 L Hgb 6.0 L Hct 16.7 L MCV 96 MCH 34.6 H MCHC 36.0 RDW 19.9 H Plt Count 270 Seg Neutrophils % Not Reportable Sodium 142.2 Potassium 2.2 L* Chloride 112 H Carbon Dioxide 20 L Anion Gap 10 BUN < 2 L Creatinine 0.37 L Est GFR ( Amer) > 60 Glucose 70 L Calcium 6.9 L* Total Bilirubin 2.5 H AST 38 H Alkaline Phosphatase 41 Total Protein 5.3 L Albumin 2.9 L Blood Type O POSITIVE Antibody Screen NEGATIVE Impressions: Chest X-Ray 05/21/19 21:03 IMPRESSION: No acute cardiopulmonary disease. Guidance Fluoroscopy 05/22/19 00:00 IMPRESSION: SUCCESSFUL PLACEMENT OF A 5 [place] X 37 CM DOUBLE LUMEN PICC VIA THE LEFT BRACHIAL VEIN UTILIZING FLUOROSCOPIC AND SONOGRAPHIC GUIDANCE. Interventional Vascular Procedure 05/22/19 00:00 IMPRESSION: SUCCESSFUL PLACEMENT OF A 5 [place] X 37 CM DOUBLE LUMEN PICC VIA THE LEFT BRACHIAL VEIN UTILIZING FLUOROSCOPIC AND SONOGRAPHIC GUIDANCE. PICC Line Insertion 05/22/19 00:00 IMPRESSION: SUCCESSFUL PLACEMENT OF A 5 [place] X 37 CM DOUBLE LUMEN PICC VIA THE LEFT BRACHIAL VEIN UTILIZING FLUOROSCOPIC AND SONOGRAPHIC GUIDANCE. Assessment and Plan - Diagnosis (1) Sickle cell pain crisis Is this a current diagnosis for this admission?: Yes Plan: Medication being managed by hematology. She is getting fluids and supplemental O2. Monitoring hemoglobin. (2) Acute on chronic anemia Is this a current diagnosis for this admission?: Yes Plan: Hemoglobin has dropped again, bilirubin elevated, transfusing another unit of packed red cells (3) Qualifiers: Weeks of gestation: 8 weeks Qualified Code(s): Z3A.08 - 8 weeks gestation of Is this a current diagnosis for this admission?: Yes Plan: Has been seen by OB. No intervention at this time. Will monitor closely. (4) Agitation Is this a current diagnosis for this admission?: Yes Plan: We are going to check a toxicological screen for stimulant substances, not sure what else could be causing this abrupt of a presentation because I have not seen this in her before. (5) Hypocalcemia Is this a current diagnosis for this admission?: Yes Plan: Replacing this with some IV calcium (6) Hypokalemia Is this a current diagnosis for this admission?: Yes Plan: Replacing with IV potassium - Time Time Spent with patient: 15-24 minutes
[2019-05-28 17:23] LABS: URINE AMPHETAMINES SCREEN NEGATIVE; URINE BARBITURATES SCREEN NEGATIVE; URINE BENZODIAZEPINES SCREEN NEGATIVE; URINE COCAINE SCREEN NEGATIVE; URINE METHADONE SCREEN NEGATIVE; URINE PHENCYCLIDINE SCREEN NEGATIVE
[2019-05-28 19:07] LABS: HEMATOCRIT 20.8 % (36.0-47.0); MEAN CORPUSCULAR HEMOGLOBIN 34.1 pg (27.0-33.4); MEAN CORPUSCULAR VOLUME 95 fl (80-97); PLATELET COUNT 273 10^3/uL (150-450); RED CELL DISTRIBUTION WIDTH 18.2 % (11.5-14.0); WHITE BLOOD COUNT 7.5 10^3/uL (4.0-10.5)
[2019-05-28 19:08] LABS: URINE MARIJUANA (THC) SCREEN UNCONFIRMED POSITIVE
[2019-05-28 19:11] LABS: HEMOGLOBIN 7.5 g/dL (12.0-15.5)
[2019-05-28 19:27] LABS: ABSOLUTE LYMPHOCYTES# (MANUAL) 2.1 10^3/uL (0.5-4.7); ABSOLUTE MONOCYTES # (MANUAL) 0.3 10^3/uL (0.1-1.4); ANISOCYTOSIS 2+; BASOPHILS % (MANUAL) 0 % (0-2); EOSINOPHILS % (MANUAL) 2 % (0-6); LYMPHOCYTES % (MANUAL) 28 % (13-45); MONOCYTES % (MANUAL) 4 % (3-13); NUCLEATED RED BLOOD CELLS 5 /100 WBC (0); OVALOCYTES 2+; SEGMENTED NEUTROPHILS % (MAN) 66 % (42-78); TOTAL CELLS COUNTED 100
[2019-05-28 19:28] LABS: PLATELET COMMENT ADEQUATE
[2019-05-28 19:29] LABS: SICKLE RED CELLS SLIGHT
[2019-05-29] MEDS: HYDROMORPHONE HCL INJ/PF 2 MG/ML AMPULE IV PRN ×11 (00:22→22:08)
[2019-05-29] MEDS ORDERED: POTASSI CL 20 MEQ/50 ML RIDER 20 MEQ/50 ML RTUPB IV ONE (00:27)
[2019-05-29] MEDS: POTASSI CL 20 MEQ/50 ML RIDER 20 MEQ/50 ML RTUPB IV SCH ×4 (00:28→22:15)
[2019-05-29] MEDS: DIPHENHYDRAMINE HCL 50 MG/ML VIAL IV PRN ×5 (02:35→20:04)
[2019-05-29] MEDS: PROMETHAZINE HCL INJ 25 MG/1 ML VIAL IV PRN ×5 (02:35→20:04)
[2019-05-29] MEDS: NORMAL SALINE 1000 ML 1,000 ML IV PRN ×3 (04:11→18:01)
[2019-05-29] MEDS: NORMAL SALINE 10 ML SDV (AFTER EACH USE) IV PRN (04:16)
[2019-05-29] MEDS: HEPARIN SOD (PORCINE) 5,000 UNIT/ML 1 ML VIAL SUBCUT SCH ×3 (06:37→22:09)
[2019-05-29] MEDS: DOCUSATE SODIUM 100 MG CAPSULE PO SCH ×2 (09:09→17:56)
[2019-05-29] MEDS: FLUTICASONE NASAL SPRAY 50 MCG/SPRY 120 SPRAY/16 GM NASL SCH (09:09)
[2019-05-29] MEDS: NORMAL SALINE 10 ML SDV (SCHEDULED) IV SCH ×2 (09:09→22:11)
--- NOTE | 2019-05-29 09:09 | PDOC PROGRESS REPORT ---
Subjective Progress Note for:: 05/29/19 Subjective:: No acute events overnight, patient is feeling better so we will reduce her Dilaudid today Reason For Visit: ACUTE SICKLE CELL CRISIS,FIRST TRIMESTER Physical Exam Vital Signs: Temp Pulse Resp BP Pulse Ox 97.5 F 74 17 135/54 H 98 05/29/19 07:42 05/29/19 07:42 05/29/19 07:42 05/29/19 07:42 05/29/19 07:42 Intake & Output 05/28/19 05/29/19 05/30/19 06:59 06:59 06:59 Intake Total 5338 6404 50 Output Total 5120 7500 Balance 218 -1096 50 Weight 65.5 kg 64.1 kg General appearance: PRESENT: no acute distress, well-developed, well-nourished Head exam: PRESENT: atraumatic, normocephalic Eye exam: PRESENT: conjunctiva pink, EOMI, PERRLA. ABSENT: scleral icterus Ear exam: PRESENT: normal external ear exam Mouth exam: PRESENT: moist, tongue midline Neck exam: ABSENT: carotid bruit, JVD, lymphadenopathy, thyromegaly Respiratory exam: PRESENT: clear to auscultation william. ABSENT: rales, rhonchi, wheezes Cardiovascular exam: PRESENT: RRR. ABSENT: diastolic murmur, rubs, systolic murmur Pulses: PRESENT: normal dorsalis pedis pul Vascular exam: PRESENT: normal capillary refill GI/Abdominal exam: PRESENT: normal bowel sounds, soft. ABSENT: distended, guarding, mass, organolmegaly, rebound, tenderness Rectal exam: PRESENT: deferred Extremities exam: PRESENT: full ROM. ABSENT: calf tenderness, clubbing, pedal edema Neurological exam: PRESENT: alert, awake, oriented to person, oriented to place, oriented to time, oriented to situation, CN II-XII grossly intact. ABSENT: motor sensory deficit Psychiatric exam: PRESENT: appropriate affect, normal mood. ABSENT: homicidal ideation, suicidal ideation Skin exam: PRESENT: dry, intact, warm. ABSENT: cyanosis, rash Results Laboratory Results: 05/28/19 18:50 05/28/19 08:21 05/28/19 05/28/19 05/28/19 08:21 08:21 11:12 WBC 7.1 RBC 1.74 L Hgb 6.0 L Hct 16.7 L MCV 96 MCH 34.6 H MCHC 36.0 RDW 19.9 H Plt Count 270 Seg Neutrophils % Not Reportable Sodium 142.2 Potassium 2.2 L* Chloride 112 H Carbon Dioxide 20 L Anion Gap 10 BUN < 2 L Creatinine 0.37 L Est GFR ( Amer) > 60 Glucose 70 L Calcium 6.9 L* Total Bilirubin 2.5 H AST 38 H Alkaline Phosphatase 41 Total Protein 5.3 L Albumin 2.9 L Blood Type O POSITIVE Antibody Screen NEGATIVE 05/28/19 18:50 WBC 7.5 RBC 2.20 L Hgb 7.5 L Hct 20.8 L MCV 95 MCH 34.1 H MCHC 36.0 RDW 18.2 H Plt Count 273 Seg Neutrophils % Not Reportable Sodium Potassium Chloride Carbon Dioxide Anion Gap BUN Creatinine Est GFR ( Amer) Glucose Calcium Total Bilirubin AST Alkaline Phosphatase Total Protein Albumin Blood Type Antibody Screen Impressions: Chest X-Ray 05/21/19 21:03 IMPRESSION: No acute cardiopulmonary disease. Guidance Fluoroscopy 05/22/19 00:00 IMPRESSION: SUCCESSFUL PLACEMENT OF A 5 [place] X 37 CM DOUBLE LUMEN PICC VIA THE LEFT BRACHIAL VEIN UTILIZING FLUOROSCOPIC AND SONOGRAPHIC GUIDANCE. Interventional Vascular Procedure 05/22/19 00:00 IMPRESSION: SUCCESSFUL PLACEMENT OF A 5 [place] X 37 CM DOUBLE LUMEN PICC VIA TH E LEFT BRACHIAL VEIN UTILIZING FLUOROSCOPIC AND SONOGRAPHIC GUIDANCE. PICC Line Insertion 05/22/19 00:00 IMPRESSION: SUCCESSFUL PLACEMENT OF A 5 [place] X 37 CM DOUBLE LUMEN PICC VIA THE LEFT BRACHIAL VEIN UTILIZING FLUOROSCOPIC AND SONOGRAPHIC GUIDANCE. Assessment & Plan - Diagnosis (1) Sickle cell pain crisis Is this a current diagnosis for this admission?: Yes Plan: Improving, we will wean her Dilaudid over the next few days. And hopefully by Saturday she should be improved enough to discharge. We will see how things go. 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 Hemoglobin is better after that. - Time Time Spent with patient: 25-34 minutes - Inpatient Certification Based on my medical assessment, after consideration of the patient's comorbid ities, presenting symptoms, or acuity I expect that the services needed warrant INPATIENT care.: Yes I certify that my determination is in accordance with my understanding of Medicare's requirements for reasonable and necessary INPATIENT services [42 CFR 412.3e].: Yes Medical Necessity: Need For IV Fluids, Need for Pain Control, Risk of Complication if Not Cared For in Hospital
[2019-05-29 12:06] LABS: ANION GAP 10 (5-19); CALCIUM 7.5 mg/dL (8.4-10.2); CARBON DIOXIDE 19 mmol/L (22-30); CHLORIDE 112 mmol/L (98-107); GLUCOSE 78 mg/dL (75-110)
[2019-05-29 12:20] LABS: BLOOD UREA NITROGEN < 2 mg/dL (7-20)
[2019-05-29 12:33] LABS: POTASSIUM 2.4 mmol/L (3.6-5.0)
--- NOTE | 2019-05-29 17:22 | PDOC PROGRESS REPORT ---
Subjective Progress Note for:: 05/29/19 Subjective:: No adverse events overnight. No new complaints. Her potassium is still low so we will give her some more. She tolerated her transfusion yesterday. Reason For Visit: ACUTE SICKLE CELL CRISIS,FIRST TRIMESTER Physical Exam Vital Signs: Temp Pulse Resp BP Pulse Ox 98.2 F 85 18 125/69 100 05/29/19 15:39 05/29/19 15:39 05/29/19 15:39 05/29/19 15:39 05/29/19 15:39 Intake & Output 05/28/19 05/29/19 05/30/19 06:59 06:59 06:59 Intake Total 5338 6404 1641 Output Total 5120 7500 1800 Balance 218 -1096 -159 Weight 65.5 kg 64.1 kg General appearance: PRESENT: no acute distress, cooperative, disheveled Respiratory exam: PRESENT: clear to auscultation william, symmetrical, unlabored. ABSENT: accessory muscle use, chest wall tenderness, crackles, prolonged expiratory phas, rhonchi, tachypnea, wheezes Cardiovascular exam: PRESENT: RRR, +S1, +S2 Pulses: PRESENT: normal carotid pulses Vascular exam: PRESENT: normal capillary refill GI/Abdominal exam: PRESENT: normal bowel sounds, soft. ABSENT: distended, guarding, rebound, tenderness Extremities exam: ABSENT: clubbing, pedal edema Musculoskeletal exam: PRESENT: normal inspection. ABSENT: deformity Neurological exam: PRESENT: alert, awake, oriented to person, oriented to place, oriented to situation Psychiatric exam: PRESENT: Unusual affect, seemed to display some motor agitation Skin exam: PRESENT: dry, warm Results Laboratory Results: 05/28/19 18:50 05/29/19 11:23 05/28/19 05/29/19 18:50 11:23 WBC 7.5 RBC 2.20 L Hgb 7.5 L Hct 20.8 L MCV 95 MCH 34.1 H MCHC 36.0 RDW 18.2 H Plt Count 273 Seg Neutrophils % Not Reportable Sodium 141.1 Potassium 2.4 L* Chloride 112 H Carbon Dioxide 19 L Anion Gap 10 BUN < 2 L Creatinine 0.37 L Est GFR ( Amer) > 60 Glucose 78 Calcium 7.5 L Impressions: Chest X-Ray 05/21/19 21:03 IMPRESSION: No acute cardiopulmonary disease. Guidance Fluoroscopy 05/22/19 00:00 IMPRESSION: SUCCESSFUL PLACEMENT OF A 5 CITIZEN OF [place] X 37 CM DOUBLE LUMEN PICC VIA THE LEFT BRACHIAL VEIN UTILIZING FLUOROSCOPIC AND SONOGRAPHIC GUIDANCE. Interventional Vascular Procedure 05/22/19 00:00 IMPRESSION: SUCCESSFUL PLACEMENT OF A 5 [place]IZ[place] X 37 CM DOUBLE LUMEN PICC VIA THE LEFT BRACHIAL VEIN UTILIZING FLUOROSCOPIC AND SONOGRAPHIC GUIDANCE. PICC Line Insertion 05/22/19 00:00 IMPRESSION: SUCCESSFUL PLACEMENT OF A 5 [place]IZ[place] X 37 CM DOUBLE LUMEN PICC VIA THE LEFT BRACHIAL VEIN UTILIZING FLUOROSCOPIC AND SONOGRAPHIC GUIDANCE. Assessment and Plan - Diagnosis (1) Sickle cell pain crisis Is this a current diagnosis for this admission?: Yes Plan: Medication being managed by hematology. She is getting fluids and supplemental O2. Monitoring hemoglobin. (2) Acute on chronic anemia Is this a current diagnosis for this admission?: Yes Plan: Monitoring hemoglobin, transfusing if she drops below 7. (3) Qualifiers: Weeks of gestation: 8 weeks Qualified Code(s): Z3A.08 - 8 weeks gestation of Is this a current diagnosis for this admission?: Yes Plan: Has been seen by OB. No intervention at this time. Will monitor closely. (4) Agitation Is this a current diagnosis for this admission?: Yes Plan: Resolved (5) Hypocalcemia Is this a current diagnosis for this admission?: Yes Plan: Now corrects to near normal (6) Hypokalemia Is this a current diagnosis for this admission?: Yes Plan: Magnesium was normal a couple of days ago, will then repeat that to see if she needs more magnesium. Infusing more potassium as well. - Time Time Spent with patient: 15-24 minutes
[2019-05-29] MEDS: MAGNESIUM SULFATE/D5W 1 GM/100 ML RTUPB IV SCH ×3 (20:40→23:33)
[2019-05-30] MEDS: PROMETHAZINE HCL INJ 25 MG/1 ML VIAL IV PRN ×6 (00:06→21:46)
[2019-05-30] MEDS: DIPHENHYDRAMINE HCL 50 MG/ML VIAL IV PRN ×6 (00:07→21:46)
[2019-05-30] MEDS: HYDROMORPHONE HCL INJ/PF 2 MG/ML AMPULE IV PRN ×12 (00:08→23:47)
[2019-05-30] MEDS: POTASSI CL 20 MEQ/50 ML RIDER 20 MEQ/50 ML RTUPB IV SCH ×3 (00:24→17:42)
[2019-05-30] MEDS: NORMAL SALINE 1000 ML 1,000 ML IV PRN ×4 (00:45→22:03)
[2019-05-30] MEDS: NORMAL SALINE 10 ML SDV (AFTER EACH USE) IV PRN (02:31)
[2019-05-30] MEDS: HEPARIN SOD (PORCINE) 5,000 UNIT/ML 1 ML VIAL SUBCUT SCH ×3 (06:32→21:47)
[2019-05-30] MEDS: DOCUSATE SODIUM 100 MG CAPSULE PO SCH ×2 (09:50→17:43)
[2019-05-30] MEDS: NORMAL SALINE 10 ML SDV (SCHEDULED) IV SCH ×2 (09:50→21:48)
[2019-05-30] MEDS: FLUTICASONE NASAL SPRAY 50 MCG/SPRY 120 SPRAY/16 GM NASL SCH (09:50)
[2019-05-30 10:53] LABS: HEMATOCRIT 23.7 % (36.0-47.0); HEMOGLOBIN 8.5 g/dL (12.0-15.5); MEAN CORPUSCULAR HEMOGLOBIN 34.1 pg (27.0-33.4); MEAN CORPUSCULAR HGB CONC 35.9 g/dL (32.0-36.0); MEAN CORPUSCULAR VOLUME 95 fl (80-97); PLATELET COUNT 284 10^3/uL (150-450); RED BLOOD COUNT 2.49 10^6/uL (3.72-5.28); RED CELL DISTRIBUTION WIDTH 18.3 % (11.5-14.0); WHITE BLOOD COUNT 7.2 10^3/uL (4.0-10.5)
--- NOTE | 2019-05-30 11:08 | PDOC PROGRESS REPORT ---
Subjective Progress Note for:: 05/30/19 Subjective:: Patient overall feeling better but still having considerable thrush. We discussed the initiation of Diflucan. Pain is better and patient is ready to go down to 4 mg dose of Dilaudid. Reason For Visit: ACUTE SICKLE CELL CRISIS,FIRST TRIMESTER Physical Exam Vital Signs: Temp Pulse Resp BP Pulse Ox 98.1 F 75 18 118/61 94 05/30/19 07:54 05/30/19 07:54 05/30/19 07:54 05/30/19 07:54 05/30/19 07:54 Intake & Output 05/29/19 05/30/19 05/31/19 06:59 06:59 06:59 Intake Total 6404 6648 1000 Output Total 7500 8200 Balance -1096 -1552 1000 Weight 64.1 kg 62 kg General appearance: PRESENT: no acute distress, well-developed, well-nourished Head exam: PRESENT: atraumatic, normocephalic Eye exam: PRESENT: conjunctiva pink, EOMI, PERRLA. ABSENT: scleral icterus Ear exam: PRESENT: normal external ear exam Mouth exam: PRESENT: moist, tongue midline Neck exam: ABSENT: carotid bruit, JVD, lymphadenopathy, thyromegaly Respiratory exam: PRESENT: clear to auscultation william. ABSENT: rales, rhonchi, wheezes Cardiovascular exam: PRESENT: RRR. ABSENT: diastolic murmur, rubs, systolic murmur Pulses: PRESENT: normal dorsalis pedis pul Vascular exam: PRESENT: normal capillary refill GI/Abdominal exam: PRESENT: normal bowel sounds, soft. ABSENT: distended, guarding, mass, organolmegaly, rebound, tenderness Rectal exam: PRESENT: deferred Extremities exam: PRESENT: full ROM. ABSENT: calf tenderness, clubbing, pedal edema Neurological exam: PRESENT: alert, awake, oriented to person, oriented to place, oriented to time, oriented to situation, CN II-XII grossly intact. ABSENT: motor sensory deficit Psychiatric exam: PRESENT: appropriate affect, normal mood. ABSENT: homicidal ideation, suicidal ideation Skin exam: PRESENT: dry, intact, warm. ABSENT: cyanosis, rash Results Laboratory Results: 05/30/19 10:00 05/29/19 05/29/19 05/30/19 11:23 11:23 10:00 WBC 7.2 RBC 2.49 L Hgb 8.5 L Hct 23.7 L MCV 95 MCH 34.1 H MCHC 35.9 RDW 18.3 H Plt Count 284 Sodium 141.1 Potassium 2.4 L* Chloride 112 H Carbon Dioxide 19 L Anion Gap 10 BUN < 2 L Creatinine 0.37 L Est GFR ( Amer) > 60 Glucose 78 Calcium 7.5 L Magnesium 1.2 L* Impressions: Chest X-Ray 05/21/19 21:03 IMPRESSION: No acute cardiopulmonary disease. Guidance Fluoroscopy 05/22/19 00:00 IMPRESSION: SUCCESSFUL PLACEMENT OF A 5 [place] X 37 CM DOUBLE LUMEN PICC VIA THE LEFT BRACHIAL VEIN UTILIZING FLUOROSCOPIC AND SONOGRAPHIC GUIDANCE. Interventional Vascular Procedure 05/22/19 00:00 IMPRESSION: SUCCESSFUL PLACEMENT OF A 5 [place] X 37 CM DOUBLE LUMEN PICC VIA THE LEFT BRACHIAL VEIN UTILIZING FLUOROSCOPIC AND SONOGRAPHIC GUIDANCE. PICC Line Insertion 05/22/19 00:00 IMPRESSION: SUCCESSFUL PLACEMENT OF A 5 [place] X 37 CM DOUBLE LUMEN PICC VIA THE LEFT BRACHIAL VEIN UTILIZING FLUOROSCOPIC AND SONOGRAPHIC GUIDANCE. Status: Image reviewed by me Assessment & Plan - Diagnosis (1) Sickle cell pain crisis Is this a current diagnosis for this admission?: Yes Plan: Improving, continue to wean Dilaudid. We will probably stay at 4 mg until Saturday and then she will probably discharge thereafter with p.o. Dilaudid. 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 - Time Time Spent with patient: 35 or more minutes - Inpatient Certification Based on my medical assessment, after consideration of the patient's debi rbidities, presenting symptoms, or acuity I expect that the services needed warrant INPATIENT care.: Yes I certify that my determination is in accordance with my understanding of Medicare's requirements for reasonable and necessary INPATIENT services [42 CFR 412.3e].: Yes Medical Necessity: Need For IV Fluids, Need for Pain Control
[2019-05-30 11:19] LABS: ANION GAP 10 (5-19); CALCIUM 8.2 mg/dL (8.4-10.2); CARBON DIOXIDE 21 mmol/L (22-30); CHLORIDE 107 mmol/L (98-107); GLUCOSE 111 mg/dL (75-110); POTASSIUM 3.1 mmol/L (3.6-5.0)
[2019-05-30 11:21] LABS: BLOOD UREA NITROGEN < 2 mg/dL (7-20)
[2019-05-30] MEDS: NYSTATIN/DEXAMETH/DIPHEN SUSP 120 ML PO SCH ×3 (13:46→21:49)
--- NOTE | 2019-05-30 15:38 | PDOC PROGRESS REPORT ---
Subjective Progress Note for:: 05/30/19 Subjective:: No adverse events overnight. No new complaints. Vital signs been stable. Eating and drinking without difficulty. Reason For Visit: ACUTE SICKLE CELL CRISIS,FIRST TRIMESTER Physical Exam Vital Signs: Temp Pulse Resp BP Pulse Ox 98.0 F 76 16 116/64 100 05/30/19 11:49 05/30/19 11:49 05/30/19 11:49 05/30/19 11:49 05/30/19 11:49 Intake & Output 05/29/19 05/30/19 05/31/19 06:59 06:59 06:59 Intake Total 6404 6648 1418 Output Total 7500 8200 1600 Balance -1314 -1472 -182 Weight 64.1 kg 62 kg General appearance: PRESENT: no acute distress, cooperative, disheveled Respiratory exam: PRESENT: clear to auscultation william, symmetrical, unlabored. ABSENT: accessory muscle use, chest wall tenderness, crackles, prolonged expiratory phas, rhonchi, tachypnea, wheezes Cardiovascular exam: PRESENT: RRR, +S1, +S2 Pulses: PRESENT: normal carotid pulses Vascular exam: PRESENT: normal capillary refill GI/Abdominal exam: PRESENT: normal bowel sounds, soft. ABSENT: distended, gua rding, rebound, tenderness Extremities exam: ABSENT: clubbing, pedal edema Musculoskeletal exam: PRESENT: normal inspection. ABSENT: deformity Neurological exam: PRESENT: alert, awake, oriented to person, oriented to place, oriented to situation Psychiatric exam: PRESENT: Unusual affect, seemed to display some motor agitation, scratching at her neck and her chest a lot Skin exam: PRESENT: dry, warm Results Laboratory Results: 05/30/19 10:00 05/30/19 10:00 05/29/19 05/30/19 05/30/19 11:23 10:00 10:00 WBC 7.2 RBC 2.49 L Hgb 8.5 L Hct 23.7 L MCV 95 MCH 34.1 H MCHC 35.9 RDW 18.3 H Plt Count 284 Sodium 138.4 Potassium 3.1 L Chloride 107 Carbon Dioxide 21 L Anion Gap 10 BUN < 2 L Creatinine 0.44 L Est GFR ( Amer) > 60 Glucose 111 H Calcium 8.2 L Magnesium 1.2 L* 1.8 Impressions: Chest X-Ray 05/21/19 21:03 IMPRESSION: No acute cardiopulmonary disease. Guidance Fluoroscopy 05/22/19 00:00 IMPRESSION: SUCCESSFUL PLACEMENT OF A 5 [place] X 37 CM DOUBLE LUMEN PICC VIA THE LEFT BRACHIAL VEIN UTILIZING FLUOROSCOPIC AND SONOGRAPHIC GUIDANCE. Interventional Vascular Procedure 05/22/19 00:00 IMPRESSION: SUCCESSFUL PLACEMENT OF A 5 [place] X 37 CM DOUBLE LUMEN PICC VIA THE LEFT BRACHIAL VEIN UTILIZING FLUOROSCOPIC AND SONOGRAPHIC GUIDANCE. PICC Line Insertion 05/22/19 00:00 IMPRESSION: SUCCESSFUL PLACEMENT OF A 5 [place] X 37 CM DOUBLE LUMEN PICC VIA THE LEFT BRACHIAL VEIN UTILIZING FLUOROSCOPIC AND SONOGRAPHIC GUIDANCE. Assessment and Plan - Diagnosis (1) Sickle cell pain crisis Is this a current diagnosis for this admission?: Yes Plan: Medication being managed by hematology. She is getting fluids and supplemental O2. Monitoring hemoglobin. (2) Acute on chronic anemia Is this a current diagnosis for this admission?: Yes Plan: Hemoglobin is improving, up to 8.5 today (3) Qualifiers: Weeks of gestation: 8 weeks Qualified Code(s): Z3A.08 - 8 weeks gestation of Is this a current diagnosis for this admission?: Yes Plan: Has been seen by OB. No intervention at this time. Will monitor closely. (4) Agitation Is this a current diagnosis for this admission?: Yes Plan: Resolved, she did appear to be very itchy because she was scratching at herself a lot while talking to her (5) Hypocalcemia Is this a current diagnosis for this admission?: Yes Plan: Resolved (6) Hypokalemia Is this a current diagnosis for this admission?: Yes Plan: Now that her magnesium has improved she is retaining her potassium, she is a little bit more IV today and that should get her back up into the normal range - Time Time Spent with patient: 15-24 minutes
[2019-05-31] MEDS: DIPHENHYDRAMINE HCL 50 MG/ML VIAL IV PRN ×6 (01:44→23:50)
[2019-05-31] MEDS: HYDROMORPHONE HCL INJ/PF 2 MG/ML AMPULE IV PRN ×11 (01:45→23:50)
[2019-05-31] MEDS: PROMETHAZINE HCL INJ 25 MG/1 ML VIAL IV PRN ×6 (01:45→23:50)
[2019-05-31] MEDS: NYSTATIN/DEXAMETH/DIPHEN SUSP 120 ML PO SCH ×6 (01:47→21:45)
[2019-05-31] MEDS: NORMAL SALINE 1000 ML 1,000 ML IV PRN ×3 (03:50→17:24)
[2019-05-31] MEDS: HEPARIN SOD (PORCINE) 5,000 UNIT/ML 1 ML VIAL SUBCUT SCH ×3 (06:04→21:45)
[2019-05-31] MEDS: NORMAL SALINE 10 ML SDV (SCHEDULED) IV SCH ×2 (09:30→21:46)
[2019-05-31] MEDS: FLUCONAZOLE 100 MG TABLET PO SCH (09:30)
[2019-05-31] MEDS: FLUTICASONE NASAL SPRAY 50 MCG/SPRY 120 SPRAY/16 GM NASL SCH (09:31)
[2019-05-31] MEDS: DOCUSATE SODIUM 100 MG CAPSULE PO SCH ×2 (09:31→17:24)
[2019-05-31 11:39] LABS: ANION GAP 9 (5-19); CALCIUM 8.7 mg/dL (8.4-10.2); CARBON DIOXIDE 22 mmol/L (22-30); CHLORIDE 110 mmol/L (98-107); GLUCOSE 93 mg/dL (75-110); POTASSIUM 3.1 mmol/L (3.6-5.0)
[2019-05-31 11:43] LABS: BLOOD UREA NITROGEN < 2 mg/dL (7-20)
--- NOTE | 2019-05-31 14:01 | PDOC PROGRESS REPORT ---
Subjective Progress Note for:: 05/31/19 Subjective:: No adverse events overnight. No new complaints. Vital signs been stable. Eating and drinking without difficulty. Reason For Visit: ACUTE SICKLE CELL CRISIS,FIRST TRIMESTER Physical Exam Vital Signs: Temp Pulse Resp BP Pulse Ox 98.9 F 83 17 123/63 99 05/31/19 11:10 05/31/19 11:10 05/31/19 11:10 05/31/19 11:10 05/31/19 11:10 Intake & Output 05/30/19 05/31/19 06/01/19 06:59 06:59 06:59 Intake Total 6648 6933 1700 Output Total 8200 7900 2300 Balance -1469 -968 -600 Weight 62 kg 62.5 kg General appearance: PRESENT: no acute distress, cooperative, disheveled Respiratory exam: PRESENT: clear to auscultation william, symmetrical, unlabored. ABSENT: accessory muscle use, chest wall tenderness, crackles, prolonged expiratory phas, rhonchi, tachypnea, wheezes Cardiovascular exam: PRESENT: RRR, +S1, +S2 Pulses: PRESENT: normal carotid pulses Vascular exam: PRESENT: normal capillary refill GI/Abdominal exam: PRESENT: normal bowel sounds, soft. ABSENT: distended, guard ing, rebound, tenderness Extremities exam: ABSENT: clubbing, pedal edema Musculoskeletal exam: PRESENT: normal inspection. ABSENT: deformity Neurological exam: PRESENT: alert, awake, oriented to person, oriented to place, oriented to situation Psychiatric exam: PRESENT: Unusual affect, seemed to display some motor agitation, scratching at her neck and her chest a lot Skin exam: PRESENT: dry, warm Results Laboratory Results: 05/30/19 10:00 05/31/19 10:49 05/31/19 10:49 Sodium 141.4 Potassium 3.1 L Chloride 110 H Carbon Dioxide 22 Anion Gap 9 BUN < 2 L Creatinine 0.43 L Est GFR ( Amer) > 60 Glucose 93 Calcium 8.7 Impressions: Chest X-Ray 05/21/19 21:03 IMPRESSION: No acute cardiopulmonary disease. Guidance Fluoroscopy 05/22/19 00:00 IMPRESSION: SUCCESSFUL PLACEMENT OF A 5 KOREAN X 37 CM DOUBLE LUMEN PICC VIA THE LEFT BRACHIAL VEIN UTILIZING FLUOROSCOPIC AND SONOGRAPHIC GUIDANCE. Interventional Vascular Procedure 05/22/19 00:00 IMPRESSION: SUCCESSFUL PLACEMENT OF A 5 KOREAN X 37 CM DOUBLE LUMEN PICC VIA THE LEFT BRACHIAL VEIN UTILIZING FLUOROSCOPIC AND SONOGRAPHIC GUIDANCE. PICC Line Insertion 05/22/19 00:00 IMPRESSION: SUCCESSFUL PLACEMENT OF A 5 KOREAN X 37 CM DOUBLE LUMEN PICC VIA THE LEFT BRACHIAL VEIN UTILIZING FLUOROSCOPIC AND SONOGRAPHIC GUIDANCE. Assessment and Plan - Diagnosis (1) Sickle cell pain crisis Is this a current diagnosis for this admission?: Yes Plan: Medication being managed by hematology. She is getting fluids and supplemental O2. Monitoring hemoglobin. (2) Acute on chronic anemia Is this a current diagnosis for this admission?: Yes Plan: Hemoglobin is improving, up to 8.5 today (3) Qualifiers: Weeks of gestation: 8 weeks Qualified Code(s): Z3A.08 - 8 weeks gestation of Is this a current diagnosis for this admission?: Yes Plan: Has been seen by OB. No intervention at this time. Will monitor closely. (4) Agitation Is this a current diagnosis for this admission?: Yes Plan: Resolved, she did appear to be very itchy because she was scratching at herself a lot while talking to her (5) Hypocalcemia Is this a current diagnosis for this admission?: Yes Plan: Resolved (6) Hypokalemia Is this a current diagnosis for this admission?: Yes Plan: Resolved - Time Time Spent with patient: 15-24 minutes
[2019-06-01] MEDS: NORMAL SALINE 1000 ML 1,000 ML IV PRN ×2 (00:43→05:55)
[2019-06-01] MEDS: NYSTATIN/DEXAMETH/DIPHEN SUSP 120 ML PO SCH ×3 (01:50→09:07)
[2019-06-01] MEDS: HYDROMORPHONE HCL INJ/PF 2 MG/ML AMPULE IV PRN ×6 (01:50→11:57)
[2019-06-01] MEDS: PROMETHAZINE HCL INJ 25 MG/1 ML VIAL IV PRN ×3 (03:51→11:57)
[2019-06-01] MEDS: DIPHENHYDRAMINE HCL 50 MG/ML VIAL IV PRN ×3 (03:51→11:57)
[2019-06-01] MEDS: HEPARIN SOD (PORCINE) 5,000 UNIT/ML 1 ML VIAL SUBCUT SCH (05:50)
--- NOTE | 2019-06-01 08:09 | PDOC PROGRESS REPORT ---
Subjective Progress Note for:: 06/01/19 Subjective:: Pain better, will give dilaudid rx for home, will discuss w/ hospitalist team Reason For Visit: ACUTE SICKLE CELL CRISIS,FIRST TRIMESTER Physical Exam Vital Signs: Temp Pulse Resp BP Pulse Ox 98.8 F 78 20 126/56 H 97 06/01/19 04:14 06/01/19 04:14 06/01/19 04:14 06/01/19 04:14 06/01/19 04:14 Intake & Output 05/31/19 06/01/19 06/02/19 06:59 06:59 06:59 Intake Total 6933 7090 Output Total 7900 8600 Balance -967 -1510 Weight 62.5 kg 61.2 kg General appearance: PRESENT: no acute distress, well-developed, well-nourished Head exam: PRESENT: atraumatic, normocephalic Eye exam: PRESENT: conjunctiva pink, EOMI, PERRLA. ABSENT: scleral icterus Ear exam: PRESENT: normal external ear exam Mouth exam: PRESENT: moist, tongue midline Neck exam: ABSENT: carotid bruit, JVD, lymphadenopathy, thyromegaly Respiratory exam: PRESENT: clear to auscultation william. ABSENT: rales, rhonchi, wheezes Cardiovascular exam: PRESENT: RRR. ABSENT: diastolic murmur, rubs, systolic murmur Pulses: PRESENT: normal dorsalis pedis pul Vascular exam: PRESENT: normal capillary refill GI/Abdominal exam: PRESENT: normal bowel sounds, soft. ABSENT: distended, guarding, mass, organolmegaly, rebound, tenderness Rectal exam: PRESENT: deferred Extremities exam: PRESENT: full ROM. ABSENT: calf tenderness, clubbing, pedal edema Neurological exam: PRESENT: alert, awake, oriented to person, oriented to place, oriented to time, oriented to situation, CN II-XII grossly intact. ABSENT: motor sensory deficit Psychiatric exam: PRESENT: appropriate affect, normal mood. ABSENT: homicidal ideation, suicidal ideation Skin exam: PRESENT: dry, intact, warm. ABSENT: cyanosis, rash Results Laboratory Results: 05/30/19 10:00 05/31/19 10:49 05/31/19 10:49 Sodium 141.4 Potassium 3.1 L Chloride 110 H Carbon Dioxide 22 Anion Gap 9 BUN < 2 L Creatinine 0.43 L Est GFR ( Amer) > 60 Glucose 93 Calcium 8.7 Impressions: Chest X-Ray 05/21/19 21:03 IMPRESSION: No acute cardiopulmonary disease. Guidance Fluoroscopy 05/22/19 00:00 IMPRESSION: SUCCESSFUL PLACEMENT OF A 5 QATARI X 37 CM DOUBLE LUMEN PICC VIA THE LEFT BRACHIAL VEIN UTILIZING FLUOROSCOPIC AND SONOGRAPHIC GUIDANCE. Interventional Vascular Procedure 05/22/19 00:00 IMPRESSION: SUCCESSFUL PLACEMENT OF A 5 QATARI X 37 CM DOUBLE LUMEN PICC VIA THE LEFT BRACHIAL VEIN UTILIZING FLUOROSCOPIC AND SONOGRAPHIC GUIDANCE. PICC Line Insertion 05/22/19 00:00 IMPRESSION: SUCCESSFUL PLACEMENT OF A 5 QATARI X 37 CM DOUBLE LUMEN PICC VIA THE LEFT BRACHIAL VEIN UTILIZING FLUOROSCOPIC AND SONOGRAPHIC GUIDANCE. 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
[2019-06-01] MEDS ORDERED: POTASSIUM CHLORIDE 20 MEQ PACKET PO ONE (08:30)
[2019-06-01] MEDS: FLUCONAZOLE 100 MG TABLET PO SCH (09:06)
[2019-06-01] MEDS: DOCUSATE SODIUM 100 MG CAPSULE PO SCH (09:06)
[2019-06-01] MEDS: NORMAL SALINE 10 ML SDV (SCHEDULED) IV SCH (09:07)
[2019-06-01] MEDS: FLUTICASONE NASAL SPRAY 50 MCG/SPRY 120 SPRAY/16 GM NASL SCH (09:07)
[2019-06-01 12:10] VITALS: BP 135/77
--- NOTE | 2019-06-01 16:07 | PDOC DISCHARGE SUMMARY ---
Impression - Admit/DC Date/PCP Admission Date/Primary Care Provider: 05/21/19 22:06 AMALIA OROZCO PA-C Discharge Date: 06/01/19 - Discharge Diagnosis (1) Sickle cell pain crisis Is this a current diagnosis for this admission?: Yes (2) Acute on chronic anemia Is this a current diagnosis for this admission?: Yes (3) Is this a current diagnosis for this admission?: Yes (4) Agitation Is this a current diagnosis for this admission?: Yes (5) Hypocalcemia Is this a current diagnosis for this admission?: Yes (6) Hypokalemia Is this a current diagnosis for this admission?: Yes - Additional Information Resuscitation Status: Full Code Discharge Diet: Regular Discharge Activity: Activity As Tolerated Referrals: [facility] [Provider Group] - 06/03/19 1:00 pm AMALIA OROZCO PA-C [Primary Care Provider] - Follow up as needed (Called and left msg with PCP - They will call patient with appointment. ) Home Medications: Folic Acid [Folvite 1 mg Tablet] 1 mg PO DAILY 05/22/19 Pnv No.95/Ferrous Fum/Folic AC [ Caplet] 1 each PO DAILY 05/22/19 History of Present Illiness History of Present Illness: PRANAV JOINER is a 28 year old female who presents the emergency room with a 2-day history of acute sickle cell crisis. She admits developing back pain and bilateral leg pain typical of her sickle cell crisis onset symptoms 2 days ago. This afternoon after leaving Dr. Cornelius's office her pain dramatically increased to severe (5/5) intensity and generalized (as usual for her sickle cell crises) over her entire body, with the exception of her abdomen, and is worsened by any movement or activity. She denies other associated or accompanying signs and symptoms and admits numerous prior similar episodes. She has not identified any aggravating or ameliorating factors for her acute sickle cell crisis. She does note that she is at 7 weeks of gestation with her first . In the emergency room she was found to have an elevated white blood count of 13,400 and a hemoglobin of 7.8. Dr. Cornelius was consulted by the emergency room physician and he recommended admission for the patient. Patient was subsequently admitted to the hospital for further evaluation and treatment with Dr. Cornelius (hematology) and Dr. Kevin (obstetrics) consulting. Hospital Course Hospital Course: OB had no further recommendations. She was seen in consultation by hematology. She was put on IV fluids and narcotics. Because of the large volumes of IV fluids, she had to get periodic infusions of electrolytes. Her potassium was a little low today but her magnesium had been corrected and so she got another dose of oral potassium. She required a total of 2 units of packed red cell transfusions during her stay. Her hemoglobin stabilized. Her pain improved. She was given prescriptions for pain medication by her second butler Dr. Cornelius with instructions to follow-up with him in the office. Her labs and examination were reassuring and she was discharged in good condition. Physical Exam Vital Signs: Temp Pulse Resp BP Pulse Ox 98.3 F 66 18 135/77 H 100 06/01/19 12:06 06/01/19 12:06 06/01/19 12:06 06/01/19 12:06 06/01/19 12:06 Intake & Output 05/31/19 06/01/19 06/02/19 06:59 06:59 06:59 Intake Total 6933 7090 880 Output Total 7900 8600 Balance -967 -1510 880 Weight 62.5 kg 61.2 kg General appearance: PRESENT: no acute distress, cooperative, disheveled Respiratory exam: PRESENT: clear to auscultation william, symmetrical, unlabored. ABSENT: accessory muscle use, chest wall tenderness, crackles, prolonged expiratory phas, rhonchi, tachypnea, wheezes Cardiovascular exam: PRESENT: RRR, +S1, +S2 Pulses: PRESENT: normal carotid pulses Vascular exam: PRESENT: normal capillary refill GI/Abdominal exam: PRESENT: normal bowel sounds, soft. ABSENT: distended, guarding, rebound, tenderness Extremities exam: ABSENT: clubbing, pedal edema Musculoskeletal exam: PRESENT: normal inspection. ABSENT: deformity Neurological exam: PRESENT: alert, awake, oriented to person, oriented to place, oriented to situation Psychiatric exam: PRESENT: Unusual affect, seemed to display some motor agitation, scratching at her neck and her chest a lot Skin exam: PRESENT: dry, warm Results Laboratory Results: WBC 7.2 10^3/uL (4.0-10.5) 05/30/19 10:00 RBC 2.49 10^6/uL (3.72-5.28) L 05/30/19 10:00 Hgb 8.5 g/dL (12.0-15.5) L 05/30/19 10:00 Hct 23.7 % (36.0-47.0) L 05/30/19 10:00 MCV 95 fl (80-97) 05/30/19 10:00 MCH 34.1 pg (27.0-33.4) H 05/30/19 10:00 MCHC 35.9 g/dL (32.0-36.0) 05/30/19 10:00 RDW 18.3 % (11.5-14.0) H 05/30/19 10:00 Plt Count 284 10^3/uL (150-450) 05/30/19 10:00 Lymph % (Auto) Not Reportable 05/28/19 18:50 Gulf % (Auto) Not Reportable 05/28/19 18:50 Eos % (Auto) Not Reportable 05/28/19 18:50 Baso % (Auto) Not Reportable 05/28/19 18:50 Reticulocyte # 0.182 10^6/uL (0.028-0.122) H 05/21/19 17:20 Absolute Neuts (auto) Not Reportable 05/28/19 18:50 Absolute Lymphs (auto) Not Reportable 05/28/19 18:50 Absolute Monos (auto) Not Reportable 05/28/19 18:50 Absolute Eos (auto) Not Reportable 05/28/19 18:50 Absolute Basos (auto) Not Reportable 05/28/19 18:50 Total Counted 100 05/28/19 18:50 Seg Neutrophils % Not Reportable 05/28/19 18:50 Seg Neuts % (Manual) 66 % (42-78) 05/28/19 18:50 Lymphocytes % (Manual) 28 % (13-45) 05/28/19 18:50 Atypical Lymphs % 1 % (0) 05/28/19 08:21 Monocytes % (Manual) 4 % (3-13) 05/28/19 18:50 Eosinophils % (Manual) 2 % (0-6) 05/28/19 18:50 Basophils % (Manual) 0 % (0-2) 05/28/19 18:50 Abs Neuts (Manual) 5.0 10^3/uL (1.7-8.2) 05/28/19 18:50 Abs Lymphs (Manual) 2.1 10^3/uL (0.5-4.7) 05/28/19 18:50 Abs Monocytes (Manual) 0.3 10^3/uL (0.1-1.4) 05/28/19 18:50 Absolute Eos (Manual) 0.2 10^3/uL (0.0-0.6) 05/28/19 18:50 Abs Basophils (Manual) 0.0 10^3/uL (0.0-0.2) 05/28/19 18:50 Nucleated RBCs 5 /100 WBC (0) 05/28/19 18:50 Platelet Comment ADEQUATE 05/28/19 18:50 Polychromasia 1+ 05/28/19 08:21 Poikilocytosis 2+ 05/28/19 08:21 Anisocytosis 2+ 05/28/19 18:50 Pappenheimer Bodies PRESENT 05/28/19 08:21 Sickle Cells SLIGHT 05/28/19 18:50 Target Cells SLIGHT 05/28/19 08:21 Tear Drop Cells SLIGHT 05/28/19 08:21 Ovalocytes 2+ 05/28/19 18:50 RBC Morph Comment 05/28/19 08:21 Retic Count (auto) 8.74 % (0.66-2.85) H 05/21/19 17:20 Sodium 141.4 mmol/L (137-145) 05/31/19 10:49 Potassium 3.1 mmol/L (3.6-5.0) L 05/31/19 10:49 Chloride 110 mmol/L (98-107) H 05/31/19 10:49 Carbon Dioxide 22 mmol/L (22-30) 05/31/19 10:49 Anion Gap 9 (5-19) 05/31/19 10:49 BUN < 2 mg/dL (7-20) L 05/31/19 10:49 Creatinine 0.43 mg/dL (0.52-1.25) L 05/31/19 10:49 Est GFR ( Amer) > 60 (>60) 05/31/19 10:49 Est GFR (MDRD) Non-Af > 60 (>60) 05/31/19 10:49 Glucose 93 mg/dL (75-110) 05/31/19 10:49 Calcium 8.7 mg/dL (8.4-10.2) 05/31/19 10:49 Magnesium 1.8 mg/dL (1.6-2.3) 05/30/19 10:00 Total Bilirubin 2.5 mg/dL (0.2-1.3) H 05/28/19 08:21 Direct Bilirubin 0.4 mg/dL (0.0-0.4) 05/28/19 08:21 Neonat Total Bilirubin Not Reportable 05/28/19 08:21 Neonat Direct Bilirubin Not Reportable 05/28/19 08:21 Neonat Indirect Bili Not Reportable 05/28/19 08:21 AST 38 U/L (14-36) H 05/28/19 08:21 ALT 30 U/L (<35) 05/28/19 08:21 Alkaline Phosphatase 41 U/L (38-126) 05/28/19 08:21 Total Protein 5.3 g/dL (6.3-8.2) L 05/28/19 08:21 Albumin 2.9 g/dL (3.5-5.0) L 05/28/19 08:21 Urine Color YELLOW 05/21/19 19:10 Urine Appearance CLEAR 05/21/19 19:10 Urine pH 7.0 (5.0-9.0) 05/21/19 19:10 Ur Specific Amonate 1.006 05/21/19 19:10 Urine Protein NEGATIVE mg/dL (NEGATIVE) 05/21/19 19:10 Urine Glucose (UA) NEGATIVE mg/dL (NEGATIVE) 05/21/19 19:10 Urine Ketones TRACE mg/dL (NEGATIVE) H 05/21/19 19:10 Urine Blood NEGATIVE (NEGATIVE) 05/21/19 19:10 Urine Nitrite NEGATIVE (NEGATIVE) 05/21/19 19:10 Urine Bilirubin NEGATIVE (NEGATIVE) 05/21/19 19:10 Urine Urobilinogen NEGATIVE mg/dL (<2.0) 05/21/19 19:10 Ur Leukocyte Esterase NEGATIVE (NEGATIVE) 05/21/19 19:10 Urine WBC (Auto) 1 /HPF 05/21/19 19:10 Urine RBC (Auto) 1 /HPF 05/21/19 19:10 Squamous Epi Cells Auto 2 /HPF 05/21/19 19:10 Urine Ascorbic Acid NEGATIVE (NEGATIVE) 05/21/19 19:10 Urine Opiates Screen UNCONFIRMED POSITIVE 05/28/19 16:39 Urine Methadone Screen NEGATIVE 05/28/19 16:39 Ur Barbiturates Screen NEGATIVE 05/28/19 16:39 Ur Phencyclidine Scrn NEGATIVE 05/28/19 16:39 Ur Amphetamines Screen NEGATIVE 05/28/19 16:39 U Benzodiazepines Scrn NEGATIVE 05/28/19 16:39 Urine Cocaine Screen NEGATIVE 05/28/19 16:39 U Marijuana (THC) Screen UNCONFIRMED POSITIVE 05/28/19 16:39 Blood Type O POSITIVE 05/28/19 11:12 Antibody Screen NEGATIVE 05/28/19 11:12 Crossmatch See Detail 05/28/19 11:12 Impressions: Chest X-Ray 05/21/19 21:03 IMPRESSION: No acute cardiopulmonary disease. Guidance Fluoroscopy 05/22/19 00:00 IMPRESSION: SUCCESSFUL PLACEMENT OF A 5 BURMESE X 37 CM DOUBLE LUMEN PICC VIA THE LEFT BRACHIAL VEIN UTILIZING FLUOROSCOPIC AND SONOGRAPHIC GUIDANCE. Interventional Vascular Procedure 05/22/19 00:00 IMPRESSION: SUCCESSFUL PLACEMENT OF A 5 BURMESE X 37 CM DOUBLE LUMEN PICC VIA THE LEFT BRACHIAL VEIN UTILIZING FLUOROSCOPIC AND SONOGRAPHIC GUIDANCE. PICC Line Insertion 05/22/19 00:00 IMPRESSION: SUCCESSFUL PLACEMENT OF A 5 BURMESE X 37 CM DOUBLE LUMEN PICC VIA THE LEFT BRACHIAL VEIN UTILIZING FLUOROSCOPIC AND SONOGRAPHIC GUIDANCE. Plan Time Spent: Greater than 30 Minutes Stroke Is this a Stroke Patient?: No Acute Heart Failure - Is this a Heart Failure Patient?: No
== END 2019-06-01 12:29 | disposition home or self-care (01) | DRG 831 ==
LOC: ER 16:28 → EH 22:06 → 2N 05-22 02:00 → 3W 05-25 18:26
PROVIDERS: ADMIT Emergency Medicine; ATTEND Emergency Medicine
PROC: 02HV33Z Insertion of Infusion Device into Superior Vena Cava, Percutaneous Approach (ICD-10-PCS; principal; 2019-05-22)
PROC: B518ZZA Fluoroscopy of Superior Vena Cava, Guidance (ICD-10-PCS; 2019-05-22)
PROC: B548ZZA Ultrasonography of Superior Vena Cava, Guidance (ICD-10-PCS; 2019-05-22)
PROC: 30233N1 Transfusion of Nonautologous Red Blood Cells into Peripheral Vein, Percutaneous Approach (ICD-10-PCS; 2019-05-24)
PROC: 30233N1 Transfusion of Nonautologous Red Blood Cells into Peripheral Vein, Percutaneous Approach (ICD-10-PCS; 2019-05-28)
DX: O99.011 Anemia complicating pregnancy, first trimester (principal); D57.00 Hb-SS disease with crisis, unspecified; O16.1 Unspecified maternal hypertension, first trimester; O98.811 Other maternal infectious and parasitic diseases complicating pregnancy, first trimester; O26.891 Other specified pregnancy related conditions, first trimester; K21.9 Gastro-esophageal reflux disease without esophagitis; D64.9 Anemia, unspecified; E83.51 Hypocalcemia; E87.6 Hypokalemia; B37.9 Candidiasis, unspecified; Z3A.01 Less than 8 weeks gestation of pregnancy; Z79.891 Long term (current) use of opiate analgesic
CPT/HCPCS: 36415; 36430; 36569; 71045; 76937; 77001; 80048; 80053; 80307; 80349; 80361; 81001; 83735; 85025; 85027; 85045; 86850; 86900; 86901; 86902; 86920; 96361; 96374; 96375; 96376; 99285; G0480; J0610; J1170; J1200; J1642; J1644; J2550; J3475; J3480; J3490; J7030; J7060; J7121; P9016

== ENCOUNTER 2019-06-11 11:12 | Outpatient (CLI) | payer MEDICAID ==
[~2019-06-11 11:12] MED LIST changes: -DIPHENHYDRAMINE HCL 50 MG/ML VIAL IV PRN; -HYDROMORPHONE HCL INJ/PF 2 MG/ML AMPULE IV PRN; -NORMAL SALINE 1000 ML 1,000 ML IV PRN; +NORMAL SALINE 1000 ML @ AS DIRECTED IV PRN; -ONDANSETRON HCL INJ/PF 4 MG/2 ML SDV IV PRN
[2019-06-11] MEDS ORDERED: DIPHENHYDRAMINE HCL 50 MG/ML VIAL IV PRN (11:31)
[2019-06-11] MEDS ORDERED: ONDANSETRON HCL INJ/PF 4 MG/2 ML SDV IV PRN (11:32)
[2019-06-11] MEDS ORDERED: HYDROMORPHONE HCL INJ/PF 2 MG/ML AMPULE IV PRN (11:34)
[2019-06-11 12:04] VITALS: BP 122/55
== END 2019-06-11 13:29 | disposition home or self-care (01) ==
LOC: II 11:12 → 5TH 11:14 → II 13:29
PROVIDERS: ATTEND Internal Medicine
DX: D57.00 Hb-SS disease with crisis, unspecified (principal); E86.0 Dehydration; R11.0 Nausea; R52 Pain, unspecified
CPT/HCPCS: 96374; 96375; 96361; J1200; J1170; J2405

== ENCOUNTER 2019-06-12 08:35 | Outpatient (CLI) | payer MEDICAID ==
[2019-06-12] MEDS ORDERED: DIPHENHYDRAMINE HCL 50 MG/ML VIAL IV PRN (08:42)
[2019-06-12] MEDS ORDERED: ONDANSETRON HCL INJ/PF 4 MG/2 ML SDV IV PRN (08:42)
[2019-06-12] MEDS ORDERED: NORMAL SALINE 1000 ML @ AS DIRECTED IV PRN (08:43)
[2019-06-12 08:45] VITALS: BP 122/47
[2019-06-12] MEDS: HYDROMORPHONE HCL INJ/PF 2 MG/ML AMPULE IV PRN ×2 (09:02→10:31)
[2019-06-12] MEDS ORDERED: HYDROMORPHONE HCL INJ/PF 2 MG/ML AMPULE IV PRN (10:02)
[2019-06-12] MEDS: NORMAL SALINE 1000 ML @ AS DIRECTED IV PRN ×2 (10:11→10:22)
== END 2019-06-12 12:10 | disposition home or self-care (01) ==
LOC: II 08:35 → 5TH 09:19 → II 12:10
PROVIDERS: ATTEND Internal Medicine
DX: D57.00 Hb-SS disease with crisis, unspecified (principal); E86.0 Dehydration; R11.0 Nausea; R52 Pain, unspecified
CPT/HCPCS: 96374; 96375; 96361; J1200; J1170; J2405

== ENCOUNTER 2019-06-15 16:51 | Outpatient (CLI) | payer MEDICAID ==
[2019-06-15] MEDS ORDERED: NORMAL SALINE 1000 ML 1,000 ML IV PRN (17:14)
[2019-06-15] MEDS ORDERED: ONDANSETRON HCL INJ/PF 4 MG/2 ML SDV IV ONE (18:00)
[2019-06-15] MEDS ORDERED: HYDROMORPHONE HCL INJ/PF 2 MG/ML AMPULE IV ONE (18:00)
[2019-06-15] MEDS ORDERED: DIPHENHYDRAMINE HCL 50 MG/ML VIAL IV ONE (18:00)
== END 2019-06-15 18:34 | disposition home or self-care (01) ==
LOC: II 16:51 → 2N 16:54 → II 18:34
PROVIDERS: ATTEND Internal Medicine
DX: D57.00 Hb-SS disease with crisis, unspecified (principal); E86.0 Dehydration; R11.0 Nausea; R52 Pain, unspecified
CPT/HCPCS: 96374; 96375; 96361; J1200; J1170; J2405; J7030

== ENCOUNTER 2019-06-16 14:03 | Outpatient (CLI) | payer MEDICAID ==
[2019-06-16] MEDS ORDERED: DIPHENHYDRAMINE HCL 50 MG/ML VIAL IV PRN (14:08)
[2019-06-16] MEDS ORDERED: ONDANSETRON HCL INJ/PF 4 MG/2 ML SDV IV PRN (14:09)
[2019-06-16] MEDS ORDERED: HYDROMORPHONE HCL INJ/PF 2 MG/ML AMPULE IV PRN (14:10)
[2019-06-16] MEDS ORDERED: NORMAL SALINE 1000 ML 1,000 ML IV PRN (14:12)
[2019-06-16 14:49] VITALS: BP 117/43
== END 2019-06-16 16:06 | disposition home or self-care (01) ==
LOC: II 14:03 → 5TH 14:52 → II 16:06
PROVIDERS: ATTEND Internal Medicine
DX: D57.00 Hb-SS disease with crisis, unspecified (principal); E86.0 Dehydration; R11.0 Nausea; R52 Pain, unspecified
CPT/HCPCS: 96374; 96375; 96361; J1200; J1170; J2405

== ENCOUNTER 2019-06-24 13:10 | Outpatient (CLI) | payer MEDICAID ==
[2019-06-24] MEDS ORDERED: DIPHENHYDRAMINE HCL 50 MG/ML VIAL IV PRN (13:24)
[2019-06-24] MEDS ORDERED: ONDANSETRON HCL INJ/PF 4 MG/2 ML SDV IV PRN (13:25)
[2019-06-24] MEDS ORDERED: NORMAL SALINE 1000 ML 1,000 ML IV PRN (13:26)
[2019-06-24] MEDS ORDERED: HYDROMORPHONE HCL INJ/PF 2 MG/ML AMPULE IV PRN (13:26)
[2019-06-24 13:53] VITALS: BP 122/58
== END 2019-06-24 15:10 | disposition home or self-care (01) ==
LOC: II 13:10 → 5TH 13:35 → II 15:10
PROVIDERS: ATTEND Internal Medicine
DX: D57.00 Hb-SS disease with crisis, unspecified (principal); E86.0 Dehydration; R11.0 Nausea; R52 Pain, unspecified
CPT/HCPCS: 96374; 96375; 96361; J1200; J1170; J2405; 96366; 96367

== ENCOUNTER 2019-06-25 10:37 | Outpatient (CLI) | payer MEDICAID ==
[2019-06-25 10:51] VITALS: BP 110/50
[2019-06-25] MEDS ORDERED: ONDANSETRON HCL INJ/PF 4 MG/2 ML SDV IV PRN (11:08)
[2019-06-25] MEDS ORDERED: DIPHENHYDRAMINE HCL 50 MG/ML VIAL IV PRN (11:08)
[2019-06-25] MEDS ORDERED: HYDROMORPHONE HCL INJ/PF 2 MG/ML AMPULE IV PRN (11:08)
[2019-06-25] MEDS ORDERED: NORMAL SALINE 1000 ML 1,000 ML IV PRN (11:09)
== END 2019-06-25 12:30 | disposition home or self-care (01) ==
LOC: II 10:37 → 5TH 10:55 → II 12:30
PROVIDERS: ATTEND Internal Medicine
DX: D57.00 Hb-SS disease with crisis, unspecified (principal); E86.0 Dehydration; R11.0 Nausea; R52 Pain, unspecified
CPT/HCPCS: 96374; 96375; 96361; J1200; J1170; J2405

== ENCOUNTER 2019-06-26 08:18 | Outpatient (CLI) | payer MEDICAID ==
[~2019-06-26 08:18] MED LIST changes: +DIPHENHYDRAMINE HCL 50 MG/ML VIAL IV PRN; +HYDROMORPHONE HCL INJ/PF 2 MG/ML AMPULE IV PRN; +NORMAL SALINE 1000 ML 1,000 ML IV PRN; -NORMAL SALINE 1000 ML @ AS DIRECTED IV PRN; +ONDANSETRON HCL INJ/PF 4 MG/2 ML SDV IV PRN
[2019-06-26 09:04] VITALS: BP 112/43
== END 2019-06-26 10:25 | disposition home or self-care (01) ==
LOC: II 08:18 → 5TH 08:20 → II 10:25
PROVIDERS: ATTEND Internal Medicine
DX: D57.00 Hb-SS disease with crisis, unspecified (principal); E86.0 Dehydration; R11.0 Nausea; R52 Pain, unspecified
CPT/HCPCS: 96374; 96375; 96361; J1200; J1170; J2405

== ENCOUNTER 2019-07-02 12:08 | Outpatient (CLI) | payer MEDICAID ==
[2019-07-02] MEDS ORDERED: DIPHENHYDRAMINE HCL 50 MG/ML VIAL IV PRN (12:16)
[2019-07-02] MEDS ORDERED: ONDANSETRON HCL INJ/PF 4 MG/2 ML SDV IV PRN (12:17)
[2019-07-02] MEDS ORDERED: HYDROMORPHONE HCL INJ/PF 2 MG/ML AMPULE IV PRN ×2 (12:17→14:48)
[2019-07-02 12:53] VITALS: BP 105/44
[2019-07-02] MEDS ORDERED: NORMAL SALINE 1000 ML 1,000 ML IV ONE (13:00)
[2019-07-02] MEDS ORDERED: NORMAL SALINE 1000 ML 1,000 ML IV PRN (15:09)
== END 2019-07-02 15:35 | disposition home or self-care (01) ==
LOC: II 12:08 → 5TH 12:17 → II 15:35
PROVIDERS: ATTEND Internal Medicine
DX: D57.00 Hb-SS disease with crisis, unspecified (principal); E86.0 Dehydration; R11.0 Nausea; R52 Pain, unspecified
CPT/HCPCS: 96374; 96375; 96361; J1200; J1170; J2405; 96360

== ENCOUNTER 2019-07-03 09:03 | Outpatient (CLI) | payer MEDICAID ==
[2019-07-03 09:37] VITALS: BP 113/52
== END 2019-07-03 10:37 | disposition home or self-care (01) ==
LOC: II 09:03 → 5TH 09:07 → II 10:37
PROVIDERS: ATTEND Internal Medicine
DX: D57.00 Hb-SS disease with crisis, unspecified (principal); E86.0 Dehydration; R11.0 Nausea; R52 Pain, unspecified
CPT/HCPCS: 96374; 96375; 96361; J1200; J1170; J2405

== ENCOUNTER 2019-07-06 09:12 | Outpatient (CLI) | payer MEDICAID ==
[2019-07-06 09:29] VITALS: BP 107/55
[2019-07-06] MEDS ORDERED: ONDANSETRON HCL INJ/PF 4 MG/2 ML SDV IV PRN (09:37)
[2019-07-06] MEDS ORDERED: DIPHENHYDRAMINE HCL 50 MG/ML VIAL IV PRN (09:37)
[2019-07-06] MEDS ORDERED: NORMAL SALINE 1000 ML 1,000 ML IV PRN (09:38)
[2019-07-06] MEDS ORDERED: HYDROMORPHONE HCL INJ/PF 2 MG/ML AMPULE IV PRN (09:38)
== END 2019-07-06 11:36 | disposition home or self-care (01) ==
LOC: ER 09:12
DX: D57.00 Hb-SS disease with crisis, unspecified (principal); E86.0 Dehydration; R11.0 Nausea; R52 Pain, unspecified
CPT/HCPCS: 99211; 96361; 96374; 96375; J1200; J1170; J2405; J7030

== ENCOUNTER 2019-07-07 14:25 | Outpatient (CLI) | payer MEDICAID ==
[2019-07-07] MEDS ORDERED: ONDANSETRON HCL INJ/PF 4 MG/2 ML SDV IV PRN (14:49)
[2019-07-07] MEDS ORDERED: NORMAL SALINE 1000 ML 1,000 ML IV PRN (14:49)
[2019-07-07] MEDS ORDERED: DIPHENHYDRAMINE HCL 50 MG/ML VIAL IV PRN (14:49)
[2019-07-07] MEDS ORDERED: HYDROMORPHONE HCL INJ/PF 2 MG/ML AMPULE IV PRN (14:49)
[2019-07-07 15:18] VITALS: BP 112/43
== END 2019-07-07 16:30 | disposition home or self-care (01) ==
LOC: II 14:25 → 5TH 14:28 → II 16:30
PROVIDERS: ATTEND Internal Medicine
DX: D57.00 Hb-SS disease with crisis, unspecified (principal); E86.0 Dehydration; R11.0 Nausea; R52 Pain, unspecified
CPT/HCPCS: 96374; 96375; 96361; J1200; J1170; J2405

== ENCOUNTER 2019-07-08 12:36 | Emergency (ER) | payer MEDICAID ==
[2019-07-08] MEDS ORDERED: NORMAL SALINE 1000 ML 1,000 ML IV ONE ×2 (14:24→14:43)
[2019-07-08 14:32] LABS: ABSOLUTE RETICS # 0.082 10^6/uL (0.028-0.122); HEMATOCRIT 24.4 % (36.0-47.0); HEMOGLOBIN 8.7 g/dL (12.0-15.5); MEAN CORPUSCULAR HEMOGLOBIN 32.4 pg (27.0-33.4); MEAN CORPUSCULAR HGB CONC 35.6 g/dL (32.0-36.0); MEAN CORPUSCULAR VOLUME 91 fl (80-97); PLATELET COUNT 422 10^3/uL (150-450); RED BLOOD COUNT 2.68 10^6/uL (3.72-5.28); RED CELL DISTRIBUTION WIDTH 16.8 % (11.5-14.0); RETICULOCYTE COUNT (AUTO) 3.07 % (0.66-2.85); WHITE BLOOD COUNT 14.6 10^3/uL (4.0-10.5)
[2019-07-08] MEDS ORDERED: ONDANSETRON HCL INJ/PF 4 MG/2 ML SDV IV ONE ×2 (14:43→15:32)
[2019-07-08] MEDS ORDERED: HYDROMORPHONE HCL INJ/PF 2 MG/ML AMPULE IV ONE ×4 (14:43→16:34)
[2019-07-08] MEDS ORDERED: DIPHENHYDRAMINE HCL 50 MG/ML VIAL IV ONE ×3 (14:43→17:11)
[2019-07-08 14:52] LABS: ALBUMIN 4.6 g/dL (3.5-5.0); ALKALINE PHOSPHATASE 50 U/L (38-126); ANION GAP 11 (5-19); ASPARTATE AMINO TRANSFERASE 43 U/L (14-36); BILIRUBIN,DIRECT 0.3 mg/dL (0.0-0.4); BLOOD UREA NITROGEN 4 mg/dL (7-20); CALCIUM 9.8 mg/dL (8.4-10.2); CARBON DIOXIDE 22 mmol/L (22-30); CHLORIDE 104 mmol/L (98-107); POTASSIUM 4.1 mmol/L (3.6-5.0); TOTAL PROTEIN 7.9 g/dL (6.3-8.2)
[2019-07-08 14:54] LABS: GLUCOSE 69 mg/dL (75-110)
--- NOTE | 2019-07-08 15:02 | ER Document Report ---
ED General - General Chief Complaint: Sickle Cell Crisis Stated Complaint: BODY PAIN Time Seen by Provider: 07/08/19 14:20 Primary Care Provider: AMALIA OROZCO PA-C [Primary Care Provider] - Follow up as needed Notes: 28 year old female with a history of sickle cell anemia presets to the ED complaining of intermittent sickle cell pain for the past 2 weeks. Patient has been seen both here in the emergency department as well as Dr. Cornelius's office. Patient states that her pain is back in her arms and in her legs. Denies any chest pain or SOB, does admit a productive cough for the past week. Admits a slight fever to 100.5 2 days ago. Last time she saw Dr. Cornelius was on the and her temperature was only 99.3 at that time. Patient states that she tried her oxycodone 15 mg twice at home today without any relief. Of note patient is 14 weeks . She is a G1, P0. Is not currently taking her hydroxyurea due to . TRAVEL OUTSIDE OF THE [place] IN LAST 30 DAYS: No - Related Data Allergies/Adverse Reactions: ceftriaxone sodium [From Rocephin] Allergy (Verified 06/30/19 13:32) Cephalosporins Allergy (Verified 06/30/19 13:32) milk [Milk] Allergy (Verified 06/30/19 13:32) Shellfish * [Shellfish] Allergy (Verified 06/30/19 13:32) wheat [Wheat] Allergy (Verified 06/30/19 13:32) Past Medical History - General Information source: Patient - Social History Smoking Status: Never Smoker Frequency of alcohol use: Rare Drug Abuse: None Family History: None, DM, Malignancy - Brother with Hodgkin's lymphoma. Maternal grandfather with lung cancer., Other - sickle trait in Mother and Father Patient has suicidal ideation: No Patient has homicidal ideation: No - Past Medical History Cardiac Medical History: Reports: Hx Hypertension, Hx Heart Murmur Denies: Hx Coronary Artery Disease, Hx Heart Attack Pulmonary Medical History: Reports: Hx Asthma, Hx Pneumonia - 2017 Denies: Hx Bronchitis, Hx COPD, Hx Tuberculosis Neurological Medical History: Reports: Hx Migraine, Hx Seizures. Denies: Hx Cerebrovascular Accident Endocrine Medical History: Denies: Hx Diabetes Mellitus Type 1, Hx Diabetes Mellitus Type 2, Hx Hyperthyroidism, Hx Hypothyroidism Renal/ Medical History: Denies: Hx Peritoneal Dialysis GI Medical History: Reports: Hx Gastroesophageal Reflux Disease. Denies: Hx Cirrhosis, Hx Hepatitis Musculoskeletal Medical History: Denies Hx Arthritis, Denies Hx Fibromyalgia, Denies Hx Gout Skin Medical History: Denies Hx Eczema, Reports Hx MRSA, Denies Hx Psoriasis Psychiatric Medical History: Reports: Hx Depression Infectious Medical History: Denies: Hx Hepatitis Past Surgical History: Reports: Hx Adenoidectomy, Hx Cholecystectomy, Hx Oral Surgery - growth removed from under tongue, Hx Tonsillectomy, Other - Port placement 2 and removal for infection, multiple PICC lines, central l. Denies: Hx Hysterectomy, Hx Kidney (Renal Surgery), Hx Pacemaker - Immunizations Hx Diphtheria, Pertussis, Tetanus Vaccination: Yes Hx Pneumococcal Vaccination: 07/08/11 Review of Systems - Review of Systems Constitutional: See HPI, Fever EENT: No symptoms reported Cardiovascular: No symptoms reported Respiratory: See HPI, Cough Gastrointestinal: No symptoms reported Female Genitourinary: See HPI, Musculoskeletal: See HPI, Muscle pain Hematologic/Lymphatic: See HPI - Sickle cell. -: Yes All other systems reviewed and negative Physical Exam - Vital signs Vitals: Temp Pulse Resp BP Pulse Ox 98.2 F 84 16 112/65 100 07/08/19 12:59 07/08/19 12:59 07/08/19 12:59 07/08/19 12:59 07/08/19 12:59 Interpretation: Normal - Notes Notes: GENERAL: Alert, interacts well. No acute distress. HEAD: Normocephalic, atraumatic EYES: Pupils equal, round and reactive to light, extraocular movements intact. ENT: Oral mucosa moist, tongue midline. NECK: Full range of motion, supple, trachea midline. LUNGS: Clear to auscultation bilaterally, no wheezes, rales or rhonchi, no respiratory distress. HEART: Regular rate and rhythm, 2 out of 6 systolic murmur, no gallops or rubs. ABDOMEN: Generally soft, gravid, appropriate for dates, nontender, bowel sounds present in all 4 quadrants. EXTREMITIES: Moves all 4 extremities spontaneously, no edema, radial and dorsalis pedis pulses 2/4 bilaterally. No cyanosis. NEUROLOGICAL: Alert and oriented x3, normal speech. PSYCH: Normal mood, normal affect. SKIN: Warm, Dry, normal turgor. Course - Re-evaluation Re-evalutation: 07/08/19 15:31 CBC shows leukocytosis of 14.6, this is increased compared to the 24th, hemoglobin only slightly lower than the 24th at 8.7, it was 9.1, platelets normal, reticulocyte count elevated at 3.07, CMP shows elevated total bilirubin at 2.0 otherwise unremarkable, chest x-ray, urinalysis and flu swabs are all pending. Patient was rechecked, actually appears somewhat more uncomfortable than first time, states that her pain is unchanged. Patient will be given a repeat dose of pain medication. New fluids will be ordered as well. 07/08/19 16:48 Flu swab negative, chest x-ray negative, urinalysis unremarkable. 07/08/19 16:48 Patient's pain is still not controlled. Discussed patient with Dr. Cornelius her processing talc and borate supervisor who recommends giving Dilaudid 4 mg IV x1, if her pain is still not controlled then admit to the hospital for further pain control. Also recommends treating with initial dose of Rocephin IV and then Levaquin 500 mg by mouth for 7 days as an outpatient. Review of patient's history shows that she is allergic to Rocephin, discussed patient further with Dr. Cornelius who states that the patient should then be given Levaquin 500 mg IV x1 here and then 6 days by mouth at home so long as her pain is controlled. Patient is agreeable to this plan. So long as pain is controlled she will be discharged approximately 45 minutes after receiving her dose of Dilaudid. If pain is not controlled Dr. Bullard will follow up with the hospitalist for admission. - Vital Signs Vital signs: Temp Pulse Resp BP Pulse Ox 98.2 F 84 16 112/65 100 07/08/19 12:59 07/08/19 12:59 07/08/19 12:59 07/08/19 12:59 07/08/19 12:59 - Laboratory Result Diagrams: 07/08/19 14:11 07/08/19 14:11 Laboratory results interpreted by me: 07/08/19 07/08/19 14:11 14:11 WBC 14.6 H RBC 2.68 L Hgb 8.7 L Hct 24.4 L RDW 16.8 H Band Neutrophils % 8 H Metamyelocytes % 2 H Abs Neuts (Manual) 10.4 H Retic Count (auto) 3.07 H Sodium 136.9 L BUN 4 L Creatinine 0.44 L Glucose 69 L Total Bilirubin 2.0 H AST 43 H Discharge - Discharge Clinical Impression: Sickle cell pain crisis, Acute on chronic anemia, Sickle cell anemia with pain Fever Qualifiers: Fever type: unspecified Qualified Code(s): R50.9 - Fever, unspecified Condition: Stable Disposition: HOME, SELF-CARE Additional Instructions: You were given Levaquin 500 mg IV here. You should take Levaquin 500 mg by mouth once a day for the next 6 days starting tomorrow. If you develop another fever (temperature of 100.4 or higher) please call your processing talc and borate supervisor office for further guidance on what to do. Please keep your appointment for fluids with hematology tomorrow. Please return to the emergency department for any new or concerning symptoms. Prescriptions: Levofloxacin [Levaquin 500 mg Tablet] 500 mg PO DAILY #6 tablet Referrals: AMALIA OROZCO PA-C [Primary Care Provider] - Follow up as needed BRUNA CORNELIUS MD [ACTIVE STAFF] - Follow up tomorrow
[2019-07-08 15:15] LABS: ABSOLUTE LYMPHOCYTES# (MANUAL) 3.4 10^3/uL (0.5-4.7); ABSOLUTE MONOCYTES # (MANUAL) 0.9 10^3/uL (0.1-1.4); ANISOCYTOSIS 1+; BAND NEUTROPHILS % (MANUAL) 8 % (3-5); BASOPHILS % (MANUAL) 0 % (0-2); EOSINOPHILS % (MANUAL) 0 % (0-6); LYMPHOCYTES % (MANUAL) 23 % (13-45); METAMYELOCYTES % (MANUAL) 2 % (0-1); MONOCYTES % (MANUAL) 6 % (3-13); SEGMENTED NEUTROPHILS % (MAN) 61 % (42-78); TOTAL CELLS COUNTED 100
[2019-07-08 15:16] LABS: PLATELET COMMENT ADEQUATE; POIKILOCYTOSIS 2+; SICKLE RED CELLS 1+; TARGET CELLS SLIGHT
--- NOTE | 2019-07-08 15:27 | RADIOLOGY REPORT (SQ) ---
EXAM DESCRIPTION: CHEST SINGLE VIEW COMPLETED DATE/TIME: 07/08/2019 3:09 pm REASON FOR STUDY: cough, fever, sickle cell COMPARISON: None. TECHNIQUE: Frontal and lateral radiographic views of the chest acquired. NUMBER OF VIEWS: Two view. LIMITATIONS: None. FINDINGS: LUNGS AND PLEURA: No opacities, masses or pneumothorax. No pleural effusion. MEDIASTINUM AND HILAR STRUCTURES: No masses or contour abnormalities. HEART AND VASCULAR STRUCTURES: Heart normal size. No evidence for failure. BONES: No acute findings. HARDWARE: None in the chest. OTHER: No other significant finding. IMPRESSION: NO SIGNIFICANT RADIOGRAPHIC FINDING IN THE CHEST. TECHNICAL DOCUMENTATION: JOB ID: [id number] [email or web address]- All Rights Reserved Reading location - IP/workstation name: [email or web address]
[2019-07-08 15:49] LABS: APPEARANCE,URINE CLEAR; BILIRUBIN,URINE NEGATIVE (NEGATIVE); COLOR,URINE YELLOW; GLUCOSE, URINE NEGATIVE (NEGATIVE); KETONES,URINE NEGATIVE (NEGATIVE); PROTEIN,URINE NEGATIVE (NEGATIVE); URINE SPECIFIC GRAVITY 1.009; UROBILINOGEN,URINE NEGATIVE mg/dL (<2.0)
[2019-07-08 16:21] LABS: A TYPE INFLUENZA AG NEGATIVE (NEGATIVE); B INFLUENZA AG NEGATIVE (NEGATIVE)
[2019-07-08] MEDS ORDERED: LEVOFLOXACIN 500 MG/D5W RTU 500 MG/100 ML RTUPB IV ONE (16:47)
[2019-07-08 18:32] VITALS: BP 114/53
== END 2019-07-08 18:32 | disposition home or self-care (01) ==
LOC: ER 12:36
DX: D57.00 Hb-SS disease with crisis, unspecified (principal); R50.9 Fever, unspecified; R05 Cough; I10 Essential (primary) hypertension; Z90.49 Acquired absence of other specified parts of digestive tract; Z91.011 Allergy to milk products; Z91.013 Allergy to seafood
CPT/HCPCS: 96376; 99284; 96361; 96375; 96365; 36415; 87040; 85025; 85045; 80053; 81001; 87804; 71045; J1956; J1200; J1170; J2405; J7030

== ENCOUNTER 2019-07-09 13:25 | Outpatient (CLI) | payer MEDICAID ==
[2019-07-09 14:16] VITALS: BP 111/49
== END 2019-07-09 15:44 | disposition home or self-care (01) ==
LOC: II 13:25 → 5TH 13:37 → II 15:44
PROVIDERS: ATTEND Internal Medicine
DX: D57.00 Hb-SS disease with crisis, unspecified (principal); E86.0 Dehydration; R11.0 Nausea; R52 Pain, unspecified
CPT/HCPCS: 96374; 96375; 96361; J1200; J1170; J2405

== ENCOUNTER 2019-07-11 09:03 | Emergency (ER) | payer MEDICAID ==
[2019-07-11] MEDS ORDERED: ACETAMINOPHEN 325 MG TABLET PO ONE (09:59)
[2019-07-11] MEDS ORDERED: METOCLOPRAMIDE HCL INJ/PF 10 MG/2 ML SDV IV ONE (09:59)
--- NOTE | 2019-07-11 10:00 | ER Document Report ---
ED Medical Screen (RME) - General Chief Complaint: Fever Stated Complaint: FEVER/SICKLE CELL Time Seen by Provider: 07/11/19 09:52 Primary Care Provider: AMALIA OROZCO PA-C [Primary Care Provider] - Follow up as needed TRAVEL OUTSIDE OF THE [place] IN LAST 30 DAYS: No - HPI Notes: 07/11/19 09:57 Patient is a 28-year-old female approximately 15 weeks with history of sickle cell presents complaining of her sickle cell pain to arms/legs and intermittent n/v/fevers since her visit here a few days ago. She was given pain medicine and sent home on antibiotics at that time which she continues to take. She had neg CXR/flu test last visit. No CP/SOB. I have treated and performed a rapid initial assessment of this patient. A comprehensive ED assessment and evaluation of the patient, analysis of test results and completion of medical decision making process will be conducted by additional ED providers. PHYSICAL EXAMINATION: GENERAL: Well-appearing, well-nourished and in no acute distress. A&Ox4. Answers questions appropriately. Lungs: CTAB. - Related Data Allergies/Adverse Reactions: ceftriaxone sodium [From Rocephin] Allergy (Verified 06/30/19 13:32) Cephalosporins Allergy (Verified 06/30/19 13:32) milk [Milk] Allergy (Verified 06/30/19 13:32) Shellfish * [Shellfish] Allergy (Verified 06/30/19 13:32) wheat [Wheat] Allergy (Verified 06/30/19 13:32) Past Medical History - Social History Chew tobacco use (# tins/day): No Frequency of alcohol use: Occasional Drug Abuse: None Family history: None, Reviewed & Not Pertinent - Past Medical History Cardiac Medical History: Reports: Hx Hypertension, Hx Heart Murmur Denies: Hx Coronary Artery Disease, Hx Heart Attack Pulmonary Medical History: Reports: Hx Asthma, Hx Pneumonia - 2017 Denies: Hx Bronchitis, Hx COPD, Hx Tuberculosis Neurological Medical History: Reports: Hx Migraine, Hx Seizures. Denies: Hx Ce rebrovascular Accident Endocrine Medical History: Denies: Hx Diabetes Mellitus Type 1, Hx Diabetes Mellitus Type 2, Hx Hyperthyroidism, Hx Hypothyroidism Renal/ Medical History: Denies: Hx Peritoneal Dialysis GI Medical History: Reports: Hx Gastroesophageal Reflux Disease. Denies: Hx Cirrhosis, Hx Hepatitis Musculoskeltal Medical History: Denies Hx Arthritis, Denies Hx Fibromyalgia, Denies Hx Gout Skin Medical History: Denies Hx Eczema, Reports Hx MRSA, Denies Hx Psoriasis Psychiatric Medical History: Reports: Hx Depression Infectious Medical History: Denies: Hx Hepatitis Past Surgical History: Reports: Hx Adenoidectomy, Hx Cholecystectomy, Hx Oral Surgery - growth removed from under tongue, Hx Tonsillectomy, Other - Port placement 2 and removal for infection, multiple PICC lines, central l. Denies: Hx Hysterectomy, Hx Kidney (Renal Surgery), Hx Pacemaker - Immunizations Hx Diphtheria, Pertussis, Tetanus Vaccination: Yes Physical Exam - Vital signs Vitals: Temp Pulse Resp BP Pulse Ox 98.8 F 95 20 128/41 H 99 07/11/19 09:07 07/11/19 09:07 07/11/19 09:07 07/11/19 09:07 07/11/19 09:07 Course - Vital Signs Vital signs: Temp Pulse Resp BP Pulse Ox 98.8 F 95 20 128/41 H 99 07/11/19 09:07 07/11/19 09:07 07/11/19 09:07 07/11/19 09:07 07/11/19 09:07 Doctor's Discharge - Discharge Referrals: AMALIA OROZCO PA-C [Primary Care Provider] - Follow up as needed
[2019-07-11 10:52] LABS: ABSOLUTE RETICS # 0.224 10^6/uL (0.028-0.122); HEMATOCRIT 22.8 % (36.0-47.0); HEMOGLOBIN 8.1 g/dL (12.0-15.5); MEAN CORPUSCULAR HEMOGLOBIN 32.6 pg (27.0-33.4); MEAN CORPUSCULAR HGB CONC 35.6 g/dL (32.0-36.0); MEAN CORPUSCULAR VOLUME 92 fl (80-97); PLATELET COUNT 410 10^3/uL (150-450); RED BLOOD COUNT 2.49 10^6/uL (3.72-5.28); RED CELL DISTRIBUTION WIDTH 18.2 % (11.5-14.0); WHITE BLOOD COUNT 16.6 10^3/uL (4.0-10.5)
[2019-07-11 10:55] LABS: ALBUMIN 4.2 g/dL (3.5-5.0); ALKALINE PHOSPHATASE 55 U/L (38-126); ANION GAP 9 (5-19); ASPARTATE AMINO TRANSFERASE 44 U/L (14-36); BILIRUBIN,DIRECT 0.1 mg/dL (0.0-0.4); BILIRUBIN,TOTAL 1.9 mg/dL (0.2-1.3); BLOOD UREA NITROGEN 3 mg/dL (7-20); CALCIUM 9.5 mg/dL (8.4-10.2); CARBON DIOXIDE 22 mmol/L (22-30); CHLORIDE 105 mmol/L (98-107); GLUCOSE 80 mg/dL (75-110); POTASSIUM 3.7 mmol/L (3.6-5.0); TOTAL PROTEIN 7.6 g/dL (6.3-8.2)
[2019-07-11] MEDS ORDERED: HYDROMORPHONE HCL INJ/PF 2 MG/ML AMPULE IV ONE ×4 (11:13→20:21)
[2019-07-11 11:16] LABS: APPEARANCE,URINE CLEAR; BILIRUBIN,URINE NEGATIVE (NEGATIVE); COLOR,URINE YELLOW; GLUCOSE, URINE NEGATIVE (NEGATIVE); KETONES,URINE NEGATIVE (NEGATIVE); PROTEIN,URINE NEGATIVE (NEGATIVE)
[2019-07-11 11:37] LABS: BASOPHILS % (MANUAL) 0 % (0-2); EOSINOPHILS % (MANUAL) 0 % (0-6); LYMPHOCYTES % (MANUAL) 30 % (13-45); MONOCYTES % (MANUAL) 6 % (3-13); NUCLEATED RED BLOOD CELLS 2 /100 WBC (0); SEGMENTED NEUTROPHILS % (MAN) 64 % (42-78); TOTAL CELLS COUNTED 100
[2019-07-11 11:39] LABS: ANISOCYTOSIS 2+; POIKILOCYTOSIS 1+; POLYCHROMASIA 1+
[2019-07-11 11:40] LABS: PLATELET COMMENT ADEQUATE; SICKLE RED CELLS 2+; TARGET CELLS 1+
[2019-07-11] MEDS: NORMAL SALINE 1000 ML 1,000 ML IV PRN ×2 (12:07→15:33)
--- NOTE | 2019-07-11 14:04 | ER Document Report ---
ED General - General TRAVEL OUTSIDE OF THE [place] IN LAST 30 DAYS: No <ANGELA DE LA TORRE - Last Filed: 07/11/19 20:22> <KELSEYLUCIOBALA - Last Filed: 07/11/19 21:09> - General Chief Complaint: Sickle Cell Crisis Stated Complaint: FEVER/SICKLE CELL Time Seen by Provider: 07/11/19 09:52 Primary Care Provider: AMALIA OROZCO PA-C [Primary Care Provider] - Follow up as needed Notes: Patient is a 28-year-old female with a history of sickle cell who presents the emergency department with a chief complaint of fever. Patient reports she has been running a fever over the past few days. Patient reports this morning it was high as 102.5. Patient reports she was given a dose of IV levaquin here in the emergency department and placed on Levaquin without improvement of her fever. Patient reports she is had a productive cough for about 2 weeks. Patient denies rash. Patient reports she is 15 weeks . Patient reports she is having pain all over including arms and legs. Patient denies chest pain or shortness of breath. (ANGELA DE LA TORRE) - Related Data Allergies/Adverse Reactions: ceftriaxone sodium [From Rocephin] Allergy (Verified 06/30/19 13:32) Cephalosporins Allergy (Verified 06/30/19 13:32) milk [Milk] Allergy (Verified 06/30/19 13:32) Shellfish * [Shellfish] Allergy (Verified 06/30/19 13:32) wheat [Wheat] Allergy (Verified 06/30/19 13:32) Past Medical History - General Information source: Patient - Social History Smoking Status: Never Smoker Chew tobacco use (# tins/day): No Frequency of alcohol use: Occasional Drug Abuse: None Lives with: Family Family History: None, DM, Malignancy - Brother with Hodgkin's lymphoma. Mate rnal grandfather with lung cancer., Other - sickle trait in Mother and Father Patient has suicidal ideation: No Patient has homicidal ideation: No - Past Medical History Cardiac Medical History: Reports: Hx Hypertension, Hx Heart Murmur Denies: Hx Coronary Artery Disease, Hx Heart Attack Pulmonary Medical History: Reports: Hx Asthma, Hx Pneumonia - 2016 Denies: Hx Bronchitis, Hx COPD, Hx Tuberculosis EENT Medical History: Reports: None Neurological Medical History: Reports: Hx Migraine, Hx Seizures. Denies: Hx Cerebrovascular Accident Endocrine Medical History: Reports: None. Denies: Hx Diabetes Mellitus Type 1, Hx Diabetes Mellitus Type 2, Hx Hyperthyroidism, Hx Hypothyroidism Renal/ Medical History: Reports: None. Denies: Hx Peritoneal Dialysis GI Medical History: Reports: Hx Gastroesophageal Reflux Disease. Denies: Hx Cirrhosis, Hx Hepatitis Musculoskeletal Medical History: Denies Hx Arthritis, Denies Hx Fibromyalgia, Denies Hx Gout Skin Medical History: Denies Hx Eczema, Reports Hx MRSA, Denies Hx Psoriasis Psychiatric Medical History: Reports: Hx Depression Infectious Medical History: Denies: Hx Hepatitis Past Surgical History: Reports: Hx Adenoidectomy, Hx Cholecystectomy, Hx Oral Surgery - growth removed from under tongue, Hx Tonsillectomy, Other - Port placement 2 and removal for infection, multiple PICC lines, central l. Denies: Hx Hysterectomy, Hx Kidney (Renal Surgery), Hx Pacemaker - Immunizations Hx Diphtheria, Pertussis, Tetanus Vaccination: Yes Hx Pneumococcal Vaccination: 07/08/11 <ANGELA DE LA TORRE - Last Filed: 07/11/19 20:22> Review of Systems - Review of Systems Constitutional: See HPI EENT: No symptoms reported Cardiovascular: No symptoms reported Respiratory: See HPI Gastrointestinal: No symptoms reported Genitourinary: No symptoms reported Female Genitourinary: No symptoms reported Musculoskeletal: No symptoms reported Skin: No symptoms reported Hematologic/Lymphatic: No symptoms reported Neurological/Psychological: No symptoms reported <ANGELA DE LA TORRE - Last Filed: 07/11/19 20:22> Physical Exam - Vital signs Interpretation: Normal <ANGELA DE LA TORRE - Last Filed: 07/11/19 20:22> - Vital signs Vitals: Temp Pulse Resp BP Pulse Ox 98.8 F 95 20 128/41 H 99 07/11/19 09:07 07/11/19 09:07 07/11/19 09:07 07/11/19 09:07 07/11/19 09:07 - Notes Notes: GENERAL: Well-appearing, well-nourished and in no acute distress. HEAD: Atraumatic, normocephalic. EYES: Pupils equal round and reactive to light, extraocular movements intact, sclera anicteric, conjunctiva are normal. ENT: TMs normal, nares patent, oropharynx clear without exudates. Moist mucous membranes. NECK: Normal range of motion, supple without lymphadenopathy or JVD. LUNGS: Breath sounds clear to auscultation bilaterally and equal. No wheezes rales or rhonchi. Intermittent congested cough. No reproducible chest pain with palpation. HEART: Regular rate and rhythm without murmurs, rubs or gallops. ABDOMEN: Soft, nontender, normoactive bowel sounds. No guarding, no rebound. N o masses appreciated. BACK: No cervical, thoracic, lumbar midline tenderness. No saddle anesthesia, normal distal neurovascular exam. GENITOURINARY: Deferred. EXTREMITIES: Normal range of motion, no pitting or edema. No clubbing or cyanosis. NEUROLOGICAL: Cranial nerves II through XII grossly intact. Normal speech, normal gait. PSYCH: Normal mood, normal affect. SKIN: Warm, Dry, normal turgor, no rashes or lesions noted. (ANGELA DE LA TORRE) Course - Laboratory Result Diagrams: 07/11/19 10:15 07/11/19 10:15 <ANGELA DE LA TORRE - Last Filed: 07/11/19 20:22> - Laboratory Result Diagrams: 07/11/19 10:15 07/11/19 10:15 <BALA AKBAR - Last Filed: 07/11/19 21:09> - Re-evaluation Re-evalutation: 07/11/19 14:03 I did speak with Dr. 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 He states that the patient has been on ceftriaxone as well as Levaquin and is not sure why she is still running fevers. Reports fever at home of 102.5. Patient did receive Dilaudid 2 mg IV. Patient only received 500 cc of fluids as her IV did infiltrate. Nursing staff attempting to obtain IV. Patient reports a 5 out of 5 pain to her arms and legs and body. Patient denies chest pain or shortness of breath. 07/11/19 14:18 I did speak with RAVIN Diallo, with the hospitalist group who will admit for sickle cell crisis, leukocytosis. We will add on a chest x-ray. 07/11/19 14:55 Brandie ALICIA did speak with her attending and due to the patient being 15 weeks she has high risk and if she did require admission she needed to be transferred to a higher level of care. Patient now has an IV. Will give IV fluids as ordered as well as a dose of pain medication. We will continue to monitor. If we cannot get the patient's pain under control we will consider transfer to another facility. Patient made aware. Chest x-ray and influenza testing pending today. 07/11/19 15:49 Upon reevaluation patient is resting on the stretcher and complains of 5 out of 5 pain all over. Patient's vital signs do not reveal any tachycardia, hypotension or fever. Patient has not had antipyretics since being here in the emergency department. We will give the patient a third dose of Dilaudid. Patient reports that her metal door assembler normally gives her 4 mg IV at once. I did inform the patient I feel uncomfortable giving her this much at one time. Patient did not appear to be affected by her previous dosages and did not become sedated. 07/11/19 16:45 On reevaluation patient is received a total of 6 mg of Dilaudid, 2 L of fluid, patient is on 2 L of oxygen via nasal cannula and reports that her pain is still a 5 out of 5. Patient is going to be admitted here at this hospital with Dr. Hawk reports that she does require a higher level of care do that she is 15 weeks and high risk. Patient would prefer to go to [facility]. Will initiate transfer. 07/11/19 17:25 Dr. Kenneth Ferrer accepts admission at [facility]. Patient reports she does seek OBGYN care locally at [facility], last saw them Saturday, has had no complications with . Influenza/chest XRAY negative. Dr. Cornelius made aware that patient being transferred. Will initiate IVF's, pain medication PRN. Patient updated on plan of care, reports continued pain but currently in no acute distress. 07/11/19 20:22 Awaiting transport. Patient is A&Ox4. No acute distress, c/o body pain 5/5. VSS. Non toxic appearing. Will order dose of Dilaudid 2 mg IV and Benadryl 25 mg IV prior to transportation. Patient stable for transport at this time. (ANGELA DE LA TORRE) 07/11/19 21:09 Transport team is at bedside, I reevaluated patient at bedside, repeat vitals without significant change, patient alert, states she is ready to leave, she just received pain and Benadryl medications IV and has no current complaints. Stable for transport. (BALA AKBAR) - Vital Signs Vital signs: Temp Pulse Resp BP Pulse Ox 98.3 F 95 20 127/72 H 100 07/11/19 20:56 07/11/19 09:07 07/11/19 20:55 07/11/19 20:56 07/11/19 20:55 - Laboratory Laboratory results interpreted by me: 07/11/19 07/11/19 07/11/19 10:15 10:15 11:00 WBC 16.6 H RBC 2.49 L Hgb 8.1 L Hct 22.8 L RDW 18.2 H Reticulocyte # 0.224 H Abs Neuts (Manual) 10.6 H Abs Lymphs (Manual) 5.0 H Retic Count (auto) 9.00 H D Sodium 136.0 L BUN 3 L Creatinine 0.41 L Total Bilirubin 1.9 H AST 44 H Urine Urobilinogen 2.0 H Urine Ascorbic Acid 40 H 07/11/19 14:09 Patient does have a leukocytosis of 16.6 as well as an elevated retake count of 9. Patient hemoglobin 8.1 patient's total bilirubin 1.9. Laboratory 07/11/19 07/11/19 07/11/19 10:15 10:15 11:00 WBC 16.6 H RBC 2.49 L Hgb 8.1 L Hct 22.8 L MCV 92 MCH 32.6 MCHC 35.6 RDW 18.2 H Plt Count 410 Lymph % (Auto) Not Reportable Snyder % (Auto) Not Reportable Eos % (Auto) Not Reportable Baso % (Auto) Not Reportable Reticulocyte # 0.224 H Absolute Neuts (auto) Not Reportable Absolute Lymphs (auto) Not Reportable Absolute Monos (auto) Not Reportable Absolute Eos (auto) Not Reportable Absolute Basos (auto) Not Reportable Total Counted 100 Seg Neutrophils % Not Reportable Seg Neuts % (Manual) 64 Lymphocytes % (Manual) 30 Monocytes % (Manual) 6 Eosinophils % (Manual) 0 Basophils % (Manual) 0 Abs Neuts (Manual) 10.6 H Abs Lymphs (Manual) 5.0 H Abs Monocytes (Manual) 1.0 Absolute Eos (Manual) 0.0 Abs Basophils (Manual) 0.0 Nucleated RBCs 2 Platelet Comment ADEQUATE Polychromasia 1+ Poikilocytosis 1+ Anisocytosis 2+ Sickle Cells 2+ Target Cells 1+ Retic Count (auto) 9.00 H D Sodium 136.0 L Potassium 3.7 Chloride 105 Carbon Dioxide 22 Anion Gap 9 BUN 3 L Creatinine 0.41 L Est GFR ( Amer) > 60 Est GFR (MDRD) Non-Af > 60 Glucose 80 Calcium 9.5 Total Bilirubin 1.9 H Direct Bilirubin 0.1 Neonat Total Bilirubin Not Reportable Neonat Direct Bilirubin Not Reportable Neonat Indirect Bili Not Reportable AST 44 H ALT 17 Alkaline Phosphatase 55 Total Protein 7.6 Albumin 4.2 Urine Color YELLOW Urine Appearance CLEAR Urine pH 8.0 Ur Specific Gordon 1.010 Urine Protein NEGATIVE Urine Glucose (UA) NEGATIVE Urine Ketones NEGATIVE Urine Blood NEGATIVE Urine Nitrite (Reflex) NEGATIVE Urine Bilirubin NEGATIVE Urine Urobilinogen 2.0 H Leukocyte Esterase Rfl NEGATIVE Urine RBC (Auto) 0 U Hyaline Cast (Auto) 1 Urine WBC (Reflex) 1 Squamous Epi Cells Auto 2 Urine Mucus (Auto) RARE Urine Ascorbic Acid 40 H (ANGELA DE LA TORRE) Discharge <ANGELA DE LA TORRE - Last Filed: 07/11/19 20:22> <BALA AKBAR - Last Filed: 07/11/19 21:09> - Discharge Clinical Impression: Sickle cell crisis, Sickle cell pain crisis Leukocytosis Qualifiers: Leukocytosis type: unspecified Qualified Code(s): D72.829 - Elevated white blood cell count, unspecified Qualifiers: Weeks of gestation: 15 weeks Qualified Code(s): Z3A.15 - 15 weeks gestation of Sickle cell anemia Qualifiers: Sickle-cell associated disorders: with unspecified crisis Qualified Code(s): D57.00 - Hb-SS disease with crisis, unspecified Condition: Stable Disposition: [facility] Referrals: AMALIA OROZCO PA-C [Primary Care Provider] - Follow up as needed
[2019-07-11] MEDS ORDERED: ONDANSETRON HCL INJ/PF 4 MG/2 ML SDV IV ONE (14:57)
[2019-07-11] MEDS ORDERED: DIPHENHYDRAMINE HCL 50 MG/ML VIAL IV ONE ×3 (14:57→20:21)
--- NOTE | 2019-07-11 15:37 | RADIOLOGY REPORT (SQ) ---
EXAM DESCRIPTION: CHEST 2 VIEWS COMPLETED DATE/TIME: 07/11/2019 2:44 pm REASON FOR STUDY: productive cough COMPARISON: 05/21/2019, 07/08/2019 EXAM PARAMETERS: NUMBER OF VIEWS: two views TECHNIQUE: Digital Frontal and Lateral radiographic views of the chest acquired. RADIATION DOSE: NA LIMITATIONS: none FINDINGS: LUNGS AND PLEURA: No opacities, masses or pneumothorax. No pleural effusion. MEDIASTINUM AND HILAR STRUCTURES: No masses or contour abnormalities. HEART AND VASCULAR STRUCTURES: Heart normal size. No evidence for failure. BONES: No acute findings. HARDWARE: None in the chest. OTHER: No other significant finding. IMPRESSION: NO ACUTE RADIOGRAPHIC FINDING IN THE CHEST. TECHNICAL DOCUMENTATION: JOB ID: [id number] [employer]- All Rights Reserved Reading location - IP/workstation name: [email or web address]
[2019-07-11 17:01] LABS: A TYPE INFLUENZA AG NEGATIVE (NEGATIVE); B INFLUENZA AG NEGATIVE (NEGATIVE)
[2019-07-11] MEDS ORDERED: HYDROMORPHONE HCL INJ/PF 2 MG/ML AMPULE IV PRN (18:26)
[2019-07-11] MEDS ORDERED: NORMAL SALINE 1000 ML 1,000 ML IV ONE (18:27)
[2019-07-11 21:00] VITALS: BP 127/72
== END 2019-07-11 21:11 | disposition short-term general hospital (02) ==
LOC: ER 09:03 → UNDOADMOB 14:27 → EH 14:27 → ER 21:11
DX: O99.012 Anemia complicating pregnancy, second trimester (principal); D57.00 Hb-SS disease with crisis, unspecified; D72.829 Elevated white blood cell count, unspecified; R50.9 Fever, unspecified; R05 Cough; M79.604 Pain in right leg; M79.605 Pain in left leg; M79.601 Pain in right arm; M79.602 Pain in left arm; Z3A.15 15 weeks gestation of pregnancy; Z79.899 Other long term (current) drug therapy
CPT/HCPCS: 96376; 99285; 96361; 96374; 96375; 36415; 87040; 87086; 85025; 85045; 80053; 81001; 87804; 71046; J3490; J1200; J2765; J1170; J2405; J7030

== ENCOUNTER → 2019-07-20 | Outpatient (CLI) | payer MEDICAID ==
[~2019-07-20] MED LIST changes: +DIPHENHYDRAMINE HCL 50 MG/ML VIAL ONE; +HYDROMORPHONE HCL INJ/PF 2 MG/ML AMPULE ONE; +ONDANSETRON HCL INJ/PF 4 MG/2 ML SDV ONE
[2019-07-20 16:33] VITALS: BP 108/50
== END ==
LOC: ASU 14:20
PROVIDERS: ATTEND Internal Medicine
DX: D57.00 Hb-SS disease with crisis, unspecified (principal); E86.0 Dehydration; R11.0 Nausea; R52 Pain, unspecified
CPT/HCPCS: 96365; 96366; 96374; 96375; 96361; J1200; J1170; J2405

== ENCOUNTER 2019-07-21 09:10 | Outpatient (CLI) | payer MEDICAID ==
[2019-07-21] MEDS ORDERED: DIPHENHYDRAMINE HCL 50 MG/ML VIAL IV PRN (09:39)
[2019-07-21] MEDS ORDERED: ONDANSETRON HCL INJ/PF 4 MG/2 ML SDV IV PRN (09:40)
[2019-07-21] MEDS ORDERED: HYDROMORPHONE HCL INJ/PF 2 MG/ML AMPULE IV PRN (09:40)
[2019-07-21 09:41] VITALS: BP 121/60
[2019-07-21] MEDS ORDERED: NORMAL SALINE 1000 ML 1,000 ML IV PRN (09:41)
== END 2019-07-21 11:08 | disposition home or self-care (01) ==
LOC: II 09:10 → 5TH 09:13 → II 11:08
PROVIDERS: ATTEND Internal Medicine
DX: D57.00 Hb-SS disease with crisis, unspecified (principal); E86.0 Dehydration; R11.0 Nausea; R52 Pain, unspecified
CPT/HCPCS: 96374; 96375; 96361; J1200; J1170; J2405; 96360

== ENCOUNTER 2019-07-22 09:07 | Outpatient (CLI) | payer MEDICAID ==
[2019-07-22 09:28] VITALS: BP 115/58
[2019-07-22] MEDS ORDERED: DIPHENHYDRAMINE HCL 50 MG/ML VIAL IV PRN (09:39)
[2019-07-22] MEDS ORDERED: ONDANSETRON HCL INJ/PF 4 MG/2 ML SDV IV PRN (09:39)
[2019-07-22] MEDS ORDERED: NORMAL SALINE 1000 ML 1,000 ML IV PRN (09:40)
[2019-07-22] MEDS ORDERED: HYDROMORPHONE HCL INJ/PF 2 MG/ML AMPULE IV PRN (09:40)
== END 2019-07-22 10:52 | disposition home or self-care (01) ==
LOC: II 09:07 → 5TH 09:09 → II 10:52
PROVIDERS: ATTEND Internal Medicine
DX: D57.00 Hb-SS disease with crisis, unspecified (principal); E86.0 Dehydration; R11.0 Nausea; R52 Pain, unspecified
CPT/HCPCS: 96374; 96375; 96361; J1200; J1170; J2405

== ENCOUNTER 2019-07-24 12:38 | Outpatient (CLI) | payer MEDICAID ==
[2019-07-24] MEDS ORDERED: DIPHENHYDRAMINE HCL 50 MG/ML VIAL IV PRN (12:56)
[2019-07-24] MEDS ORDERED: ONDANSETRON HCL INJ/PF 4 MG/2 ML SDV IV PRN (12:57)
[2019-07-24] MEDS ORDERED: HYDROMORPHONE HCL INJ/PF 2 MG/ML AMPULE IV PRN (12:57)
[2019-07-24] MEDS ORDERED: NORMAL SALINE 1000 ML 1,000 ML IV PRN (12:58)
[2019-07-24 14:24] VITALS: BP 120/50
== END 2019-07-24 14:29 | disposition home or self-care (01) ==
LOC: II 12:38 → 5TH 14:24 → II 14:29
PROVIDERS: ATTEND Internal Medicine
DX: D57.00 Hb-SS disease with crisis, unspecified (principal); E86.0 Dehydration; R11.0 Nausea; R52 Pain, unspecified
CPT/HCPCS: 96374; 96375; 96361; J1200; J1170; J2405

== ENCOUNTER 2019-07-27 12:26 | Outpatient (CLI) | payer MEDICAID ==
[2019-07-27] MEDS ORDERED: ONDANSETRON HCL INJ/PF 4 MG/2 ML SDV IV PRN (12:59)
[2019-07-27] MEDS ORDERED: HYDROMORPHONE HCL INJ/PF 2 MG/ML AMPULE IV PRN (13:00)
[2019-07-27] MEDS ORDERED: DIPHENHYDRAMINE HCL 50 MG/ML VIAL IV PRN (13:00)
[2019-07-27] MEDS ORDERED: NORMAL SALINE 1000 ML 1,000 ML IV PRN (13:01)
[2019-07-27 14:50] VITALS: BP 122/58
== END 2019-07-27 16:41 | disposition home or self-care (01) ==
LOC: II 12:26 → 2N 12:28 → II 16:41
PROVIDERS: ATTEND Internal Medicine
DX: D57.00 Hb-SS disease with crisis, unspecified (principal); E86.0 Dehydration; R11.0 Nausea; R52 Pain, unspecified
CPT/HCPCS: 96374; 96375; 96361; J1200; J1170; J2405; J7030

== ENCOUNTER 2019-07-28 13:03 | Outpatient (CLI) | payer MEDICAID ==
[~2019-07-28 13:03] MED LIST changes: -DIPHENHYDRAMINE HCL 50 MG/ML VIAL ONE; -HYDROMORPHONE HCL INJ/PF 2 MG/ML AMPULE ONE; -ONDANSETRON HCL INJ/PF 4 MG/2 ML SDV ONE
[2019-07-28 14:09] VITALS: BP 128/54
== END 2019-07-28 15:05 | disposition home or self-care (01) ==
LOC: II 13:03 → 5TH 13:20 → II 15:05
PROVIDERS: ATTEND Internal Medicine
DX: D57.00 Hb-SS disease with crisis, unspecified (principal); E86.0 Dehydration; R11.0 Nausea; R52 Pain, unspecified
CPT/HCPCS: 96374; 96375; 96361; J1200; J1170; J2405

== ENCOUNTER 2019-07-31 12:01 | Outpatient (CLI) | payer MEDICAID ==
[2019-07-31 13:00] VITALS: BP 113/55
== END 2019-07-31 14:16 | disposition home or self-care (01) ==
LOC: II 12:01 → 5TH 12:06 → II 14:16
PROVIDERS: ATTEND Internal Medicine
DX: D57.00 Hb-SS disease with crisis, unspecified (principal); E86.0 Dehydration; R11.0 Nausea; R52 Pain, unspecified
CPT/HCPCS: 96374; 96375; 96361; J1200; J1170; J2405

== ENCOUNTER 2019-08-01 14:37 | Emergency (ER) | payer MEDICAID ==
[2019-08-01] MEDS ORDERED: ONDANSETRON HCL INJ/PF 4 MG/2 ML SDV IV ONE (15:23)
[2019-08-01] MEDS ORDERED: MORPHINE SULFATE 10 MG/ML INJ IV ONE (15:23)
[2019-08-01] MEDS ORDERED: NORMAL SALINE 1000 ML 1,000 ML IV ONE (15:23)
--- NOTE | 2019-08-01 15:27 | ER Document Report ---
ED Medical Screen (RME) - General Chief Complaint: Sickle Cell Crisis Stated Complaint: BACK PAIN, NAUSEA,BODY PAIN Time Seen by Provider: 08/01/19 15:21 Primary Care Provider: AMALIA OROZCO PA-C [Primary Care Provider] - Follow up as needed Mode of Arrival: Ambulatory Information source: Patient Notes: 28-year-old female patient with history of sickle cell presenting to the emergency department with back pain and leg pain in the setting of . Patient reports she usually has pain in these areas with a sickle cell crisis. She denies any chest pain or shortness of breath. Heart sounds S1-S2 present, no ectopy noted. Lung sounds clear and equal bilaterally. I have greeted and performed a rapid initial assessment of this patient. A comprehensive ED assessment and evaluation of the patient, analysis of test results and completion of the medical decision making process will be conducted by additional ED providers. I have specifically instructed the patient or family members with the patient to immediately return to any nursing staff should anything change in the patient's condition or with their chief complaint. TRAVEL OUTSIDE OF THE [place] IN LAST 30 DAYS: No - Related Data Allergies/Adverse Reactions: ceftriaxone sodium [From Rocephin] Allergy (Verified 08/01/19 15:21) Cephalosporins Allergy (Verified 08/01/19 15:21) milk [Milk] Allergy (Verified 08/01/19 15:21) Shellfish * [Shellfish] Allergy (Verified 08/01/19 15:21) wheat [Wheat] Allergy (Verified 08/01/19 15:21) Home Medications: folic acid. oxycodone 15 mg q4-6 hours prn Past Medical History - Social History Chew tobacco use (# tins/day): No Frequency of alcohol use: None Drug Abuse: None Family history: None, Reviewed & Not Pertinent - Past Medical History Cardiac Medical History: Reports: Hx Hypertension, Hx Heart Murmur Denies: Hx Coronary Artery Disease, Hx Heart Attack Pulmonary Medical History: Reports: Hx Asthma, Hx Pneumonia - 2017 Denies: Hx Bronchitis, Hx COPD, Hx Tuberculosis Neurological Medical History: Reports: Hx Migraine, Hx Seizures. Denies: Hx Cerebrovascular Accident Endocrine Medical History: Denies: Hx Diabetes Mellitus Type 1, Hx Diabetes Mellitus Type 2, Hx Hyperthyroidism, Hx Hypothyroidism Renal/ Medical History: Denies: Hx Peritoneal Dialysis GI Medical History: Reports: Hx Gastroesophageal Reflux Disease. Denies: Hx C irrhosis, Hx Hepatitis Musculoskeltal Medical History: Denies Hx Arthritis, Denies Hx Fibromyalgia, Denies Hx Gout Skin Medical History: Denies Hx Eczema, Reports Hx MRSA, Denies Hx Psoriasis Psychiatric Medical History: Reports: Hx Depression Infectious Medical History: Denies: Hx Hepatitis Past Surgical History: Reports: Hx Adenoidectomy, Hx Cholecystectomy, Hx Oral Surgery - growth removed from under tongue, Hx Tonsillectomy, Other - Port placement 2 and removal for infection, multiple PICC lines, central l. Denies: Hx Hysterectomy, Hx Kidney (Renal Surgery), Hx Pacemaker - Immunizations Hx Diphtheria, Pertussis, Tetanus Vaccination: Yes Physical Exam - Vital signs Vitals: Temp Pulse Resp BP Pulse Ox 98.7 F 87 16 136/51 H 100 08/01/19 14:42 08/01/19 14:42 08/01/19 14:42 08/01/19 14:42 08/01/19 14:42 Course - Vital Signs Vital signs: Temp Pulse Resp BP Pulse Ox 98.7 F 87 16 136/51 H 100 08/01/19 14:42 08/01/19 14:42 08/01/19 14:42 08/01/19 14:42 08/01/19 14:42 Doctor's Discharge - Discharge Referrals: AMALIA OROZCO PA-C [Primary Care Provider] - Follow up as needed
[2019-08-01] MEDS ORDERED: ONDANSETRON HCL INJ/PF 4 MG/2 ML SDV ONE (15:53)
--- NOTE | 2019-08-01 15:58 | RADIOLOGY REPORT (SQ) ---
EXAM DESCRIPTION: CHEST 2 VIEWS COMPLETED DATE/TIME: 08/01/2019 3:43 pm REASON FOR STUDY: sickle cell crisis COMPARISON: CT chest 10/31/2018 Chest films 07/08/2019, 07/11/2019 EXAM PARAMETERS: NUMBER OF VIEWS: two views TECHNIQUE: Digital Frontal and Lateral radiographic views of the chest acquired. RADIATION DOSE: NA LIMITATIONS: none FINDINGS: LUNGS AND PLEURA: Minimal chronic scarring in the right middle lobe, unchanged from CT 10/07. No acute infiltrates. No pleural effusion. No pneumothorax. MEDIASTINUM AND HILAR STRUCTURES: No masses or contour abnormalities. HEART AND VASCULAR STRUCTURES: Heart normal size. No evidence for failure. BONES: No acute findings. HARDWARE: Clips right upper quadrant post cholecystectomy OTHER: No other significant finding. IMPRESSION: No acute findings TECHNICAL DOCUMENTATION: JOB ID: [id number] [employer]- All Rights Reserved Reading location - IP/workstation name: [email or web address]
[2019-08-01 16:34] LABS: ABSOLUTE RETICS # 0.175 10^6/uL (0.028-0.122); HEMATOCRIT 25.6 % (36.0-47.0); HEMOGLOBIN 9.2 g/dL (12.0-15.5); MEAN CORPUSCULAR HEMOGLOBIN 33.3 pg (27.0-33.4); MEAN CORPUSCULAR HGB CONC 35.8 g/dL (32.0-36.0); MEAN CORPUSCULAR VOLUME 93 fl (80-97); PLATELET COUNT 362 10^3/uL (150-450); RED BLOOD COUNT 2.76 10^6/uL (3.72-5.28); RED CELL DISTRIBUTION WIDTH 19.5 % (11.5-14.0); RETICULOCYTE COUNT (AUTO) 6.35 % (0.66-2.85)
[2019-08-01 16:53] LABS: ALBUMIN 3.8 g/dL (3.5-5.0); ALKALINE PHOSPHATASE 51 U/L (38-126); ANION GAP 6 (5-19); ASPARTATE AMINO TRANSFERASE 34 U/L (14-36); BILIRUBIN,TOTAL 1.4 mg/dL (0.2-1.3); BLOOD UREA NITROGEN 3 mg/dL (7-20); CALCIUM 9.3 mg/dL (8.4-10.2); CARBON DIOXIDE 23 mmol/L (22-30); CHLORIDE 109 mmol/L (98-107); GLUCOSE 72 mg/dL (75-110); POTASSIUM 3.8 mmol/L (3.6-5.0); TOTAL PROTEIN 6.6 g/dL (6.3-8.2)
[2019-08-01 17:03] LABS: ABSOLUTE LYMPHOCYTES# (MANUAL) 3.3 10^3/uL (0.5-4.7); ABSOLUTE MONOCYTES # (MANUAL) 0.8 10^3/uL (0.1-1.4); ANISOCYTOSIS 2+; BASOPHILS % (MANUAL) 0 % (0-2); EOSINOPHILS % (MANUAL) 1 % (0-6); HYPOCHROMASIA 1+; LYMPHOCYTES % (MANUAL) 25 % (13-45); MONOCYTES % (MANUAL) 6 % (3-13); NUCLEATED RED BLOOD CELLS 1 /100 WBC (0); POIKILOCYTOSIS 3+; SEGMENTED NEUTROPHILS % (MAN) 68 % (42-78); SICKLE RED CELLS 2+; TARGET CELLS 1+; TOTAL CELLS COUNTED 100
[2019-08-01 17:04] LABS: PLATELET COMMENT ADEQUATE
[2019-08-01] MEDS ORDERED: HYDROMORPHONE HCL INJ/PF 2 MG/ML AMPULE IV ONE ×2 (18:01→20:14)
[2019-08-01 20:10] VITALS: BP 103/54
--- NOTE | 2019-08-01 20:18 | ER Document Report ---
ED General Pain - General Chief Complaint: Sickle Cell Crisis Stated Complaint: BACK PAIN, NAUSEA,BODY PAIN Time Seen by Provider: 08/01/19 15:21 Primary Care Provider: AMALIA OROZCO PA-C [Primary Care Provider] - Follow up as needed BRUNA CORNELIUS MD [ACTIVE STAFF] - Follow up tomorrow Mode of Arrival: Ambulatory Notes: Patient is a 28-year-old female, 18 weeks , with a history of sickle cell disease who presents to the emergency department for sickle cell crisis with pain in her back and in her legs. Patient states that this feels like her normal sickle cell pain crisis. She denies any shortness of breath. Patient states that she is being followed by Dr. Fei esteban and by [facility] for her . Denies any shortness of breath, difficulty breathing, chest pain, or any other symptoms. TRAVEL OUTSIDE OF THE [place] IN LAST 30 DAYS: No - Related Data Allergies/Adverse Reactions: ceftriaxone sodium [From Rocephin] Allergy (Verified 08/01/19 15:21) Cephalosporins Allergy (Verified 08/01/19 15:21) milk [Milk] Allergy (Verified 08/01/19 15:21) Shellfish * [Shellfish] Allergy (Verified 08/01/19 15:21) wheat [Wheat] Allergy (Verified 08/01/19 15:21) Home Medications: folic acid. oxycodone 15 mg q4-6 hours prn Past Medical History - General Information source: Patient - Social History Smoking Status: Never Smoker Chew tobacco use (# tins/day): No Frequency of alcohol use: None Drug Abuse: None Family History: None, DM, Malignancy - Brother with Hodgkin's lymphoma. Maternal grandfather with lung cancer., Other - sickle trait in Mother and Father Patient has suicidal ideation: No Patient has homicidal ideation: No - Past Medical History Cardiac Medical History: Reports: Hx Hypertension, Hx Heart Murmur Denies: Hx Coronary Artery Disease, Hx Heart Attack Pulmonary Medical History: Reports: Hx Asthma, Hx Pneumonia - 2017 Denies: Hx Bronchitis, Hx COPD, Hx Tuberculosis Neurological Medical History: Reports: Hx Migraine, Hx Seizures. Denies: Hx Cerebrovascular Accident Endocrine Medical History: Denies: Hx Diabetes Mellitus Type 1, Hx Diabetes Mellitus Type 2, Hx Hyperthyroidism, Hx Hypothyroidism Renal/ Medical History: Denies: Hx Peritoneal Dialysis GI Medical History: Reports: Hx Gastroesophageal Reflux Disease. Denies: Hx Cirrhosis, Hx Hepatitis Musculoskeletal Medical History: Denies Hx Arthritis, Denies Hx Fibromyalgia, Denies Hx Gout Skin Medical History: Denies Hx Eczema, Reports Hx MRSA, Denies Hx Psoriasis Psychiatric Medical History: Reports: Hx Depression Infectious Medical History: Denies: Hx Hepatitis Past Surgical History: Reports: Hx Adenoidectomy, Hx Cholecystectomy, Hx Oral Surgery - growth removed from under tongue, Hx Tonsillectomy, Other - Port placement 2 and removal for infection, multiple PICC lines, central l. Denies: Hx Hysterectomy, Hx Kidney (Renal Surgery), Hx Pacemaker - Immunizations Hx Diphtheria, Pertussis, Tetanus Vaccination: Yes Hx Pneumococcal Vaccination: 07/08/11 Review of Systems - Review of Systems Notes: REVIEW OF SYSTEMS: CONSTITUTIONAL : Denies recent illness. Denies recent unintentional weight loss. Denies fever, chills, or sweats. EENT: Denies eye, ear, throat, or mouth pain, discharge, or symptoms. Denies nasal or sinus congestion. CARDIOVASCULAR: Denies chest pain. RESPIRATORY: Denies shortness of breath, cough, congestion, difficulty breathing, or wheezing. GASTROINTESTINAL: Denies nausea, vomiting, and diarrhea. Denies abdominal pain. Denies constipation. GENITOURINARY: Denies difficulty urinating, burning, blood in urine, urgency or frequency. MUSCULOSKELETAL: See HPI. SKIN: Denies rash, itchiness, or lesions HEMATOLOGIC : See HPI. LYMPHATIC: Denies swollen, painful, enlarged glands. NEUROLOGICAL: Denies no numbness or tingling denies weakness. Denies headache. Denies altered mental status. Denies alteration in speech. PSYCHIATRIC: Denies stress, anxiety, alteration in sleep patterns, or depression. All other systems reviewed and negative. Physical Exam - Vital signs Vitals: Temp Pulse Resp BP Pulse Ox 98.7 F 87 16 136/51 H 100 08/01/19 14:42 08/01/19 14:42 08/01/19 14:42 08/01/19 14:42 08/01/19 14:42 - Notes Notes: PHYSICAL EXAMINATION: GENERAL: Appears well, healthy, well-nourished, no acute distress. HEAD: Normocephalic, atraumatic. EYES: PERRL, conjunctiva normal, all extraocular movements intact, sclera nonicteric ENT: Moist mucous membranes. NECK: Supple, no noticeable swelling, redness, rash. Normal range of motion. LUNGS: Equal breath sounds bilaterally and clear to auscultation. No wheezes rales or rhonchi. CARDIOVASCULAR: S1-S2, regular rate, regular rhythm. Radial pulses 2+, normal. ABDOMEN: Normoactive bowel sounds. Soft, nontender, no guarding, no rebound tenderness, and no masses palpated. EXTREMITIES: Normal strength and range of motion, no pitting or edema. No cyanosis. NEUROLOGICAL: Moves all extremities upon command. Strength 5/5 in all extremities. PSYCH: Normal mood, normal affect. SKIN: Warm, dry. No rash, lesions, ulcerations noted. Normal skin turgor. Course - Re-evaluation Re-evalutation: 08/01/19 20:19 Patient's white blood cell count shows a mild leukocytosis of 13,000. Her he moglobin is 9.2 and hematocrit is 25.6. Retake count is 6.35. Her chemistries are unremarkable, other than a glucose of 72, which she was given crackers and juice for. Patient states that she still has pain. He received 4 mg of morphine IM and 1 mg of Dilaudid. States that she is still in pain. She will receive 1 more dose of Dilaudid here in the emergency department. 08/01/19 21:09 Patient states that she feels better after receiving her last dose of Dilaudid. At this time, she safe for discharge. She will follow-up with Dr. Cornelius. Follow-up precautions were given. Verbal discharge instructions were given to the patient. They verbalized understanding. They are stable for discharge. - Vital Signs Vital signs: Temp Pulse Resp BP Pulse Ox 98.7 F 87 16 103/54 L 100 08/01/19 14:42 08/01/19 14:42 08/01/19 20:00 08/01/19 20:00 08/01/19 20:00 - Laboratory Result Diagrams: 08/01/19 16:18 08/01/19 16:18 Laboratory results interpreted by me: 08/01/19 08/01/19 16:18 16:18 WBC 13.0 H RBC 2.76 L Hgb 9.2 L Hct 25.6 L RDW 19.5 H Reticulocyte # 0.175 H Abs Neuts (Manual) 8.8 H Retic Count (auto) 6.35 H Chloride 109 H BUN 3 L Creatinine 0.41 L Glucose 72 L Total Bilirubin 1.4 H Discharge - Discharge Clinical Impression: Sickle cell crisis Condition: Stable Disposition: HOME, SELF-CARE Additional Instructions: You were seen today for sickle cell pain crisis. Please follow-up with your licensed sales producer. Returning to the ED if you have worsening pain, fever greater than 100.4, shortness of breath, persistent vomiting, or any other symptoms that are concerning to you. Referrals: AMALIA OROZCO PA-C [Primary Care Provider] - Follow up as needed BRUNA CORNELIUS MD [ACTIVE STAFF] - Follow up tomorrow
== END 2019-08-01 21:17 | disposition home or self-care (01) ==
LOC: ER 14:37
DX: O99.012 Anemia complicating pregnancy, second trimester (principal); D57.00 Hb-SS disease with crisis, unspecified; Z3A.18 18 weeks gestation of pregnancy
CPT/HCPCS: 96376; 99284; 96361; 96374; 96375; 36415; 85025; 85045; 80053; 71046; J2270; J1170; J7030

== ENCOUNTER 2019-08-03 11:48 | Outpatient (CLI) | payer MEDICAID ==
[2019-08-03] MEDS ORDERED: ONDANSETRON HCL INJ/PF 4 MG/2 ML SDV ONE (12:08)
[2019-08-03] MEDS ORDERED: DIPHENHYDRAMINE HCL 50 MG/ML VIAL ONE (12:08)
[2019-08-03] MEDS ORDERED: HYDROMORPHONE HCL INJ/PF 2 MG/ML AMPULE ONE ×2 (12:09→14:34)
[2019-08-03] MEDS ORDERED: DIPHENHYDRAMINE HCL 50 MG/ML VIAL IV PRN (12:12)
[2019-08-03] MEDS ORDERED: ONDANSETRON HCL INJ/PF 4 MG/2 ML SDV IV PRN (12:12)
[2019-08-03] MEDS ORDERED: HYDROMORPHONE HCL INJ/PF 2 MG/ML AMPULE IV PRN ×2 (12:13→14:49)
[2019-08-03] MEDS ORDERED: NORMAL SALINE 1000 ML 2,000 ML IV PRN (12:13)
[2019-08-03 15:41] VITALS: BP 135/91
== END 2019-08-03 16:10 | disposition home or self-care (01) ==
LOC: ASU 11:48
PROVIDERS: ATTEND Internal Medicine
DX: D57.00 Hb-SS disease with crisis, unspecified (principal); R52 Pain, unspecified; R11.0 Nausea; E86.0 Dehydration
CPT/HCPCS: 36591; 96374; 96375; 96361; J1200; J1170; J2405

== ENCOUNTER 2019-08-04 09:35 | Outpatient (CLI) | payer MEDICAID ==
[~2019-08-04 09:35] MED LIST changes: -DIPHENHYDRAMINE HCL 50 MG/ML VIAL IV PRN; -HYDROMORPHONE HCL INJ/PF 2 MG/ML AMPULE IV PRN; -NORMAL SALINE 1000 ML 1,000 ML IV PRN
[2019-08-04] MEDS ORDERED: DIPHENHYDRAMINE HCL 50 MG/ML VIAL IV PRN (09:44)
[2019-08-04] MEDS ORDERED: HYDROMORPHONE HCL INJ/PF 2 MG/ML AMPULE IV PRN (09:46)
[2019-08-04 09:58] VITALS: BP 116/60
[2019-08-04] MEDS: NORMAL SALINE 1000 ML 1,000 ML IV PRN ×2 (10:00→10:11)
== END 2019-08-04 11:25 | disposition home or self-care (01) ==
LOC: II 09:35 → 5TH 09:39 → II 11:25
PROVIDERS: ATTEND Internal Medicine
DX: D57.00 Hb-SS disease with crisis, unspecified (principal); E86.0 Dehydration; R11.0 Nausea; R52 Pain, unspecified
CPT/HCPCS: 96374; 96375; 96361; J1200; J1170; J2405

== ENCOUNTER 2019-08-05 09:55 | Outpatient (CLI) | payer MEDICAID ==
[2019-08-05] MEDS ORDERED: ONDANSETRON HCL INJ/PF 4 MG/2 ML SDV IV PRN (10:03)
[2019-08-05] MEDS ORDERED: DIPHENHYDRAMINE HCL 50 MG/ML VIAL IV PRN (10:03)
[2019-08-05] MEDS ORDERED: HYDROMORPHONE HCL INJ/PF 2 MG/ML AMPULE IV PRN (10:05)
[2019-08-05] MEDS ORDERED: NORMAL SALINE 1000 ML 1,000 ML IV PRN (10:06)
[2019-08-05 10:12] VITALS: BP 117/59
== END 2019-08-05 12:00 | disposition home or self-care (01) ==
LOC: II 09:55 → 5TH 09:59 → II 12:00
PROVIDERS: ATTEND Internal Medicine
DX: D57.00 Hb-SS disease with crisis, unspecified (principal); E86.0 Dehydration; R11.0 Nausea
CPT/HCPCS: 96374; 96375; 96361; J1200; J1170; J2405

== ENCOUNTER 2019-08-06 10:04 | Outpatient (CLI) | payer MEDICAID ==
[2019-08-06] MEDS ORDERED: DIPHENHYDRAMINE HCL 50 MG/ML VIAL IV PRN (10:11)
[2019-08-06] MEDS ORDERED: HYDROMORPHONE HCL INJ/PF 2 MG/ML AMPULE IV PRN ×2 (10:12→10:16)
[2019-08-06] MEDS ORDERED: ONDANSETRON HCL INJ/PF 4 MG/2 ML SDV IV PRN (10:12)
[2019-08-06] MEDS ORDERED: NORMAL SALINE 1000 ML 1,000 ML IV PRN (10:13)
[2019-08-06] MEDS ORDERED: NORMAL SALINE 1000 ML 2,000 ML IV PRN (10:30)
[2019-08-06 11:48] VITALS: BP 129/61
== END 2019-08-06 13:22 | disposition home or self-care (01) ==
LOC: II 10:04 → 5TH 10:08 → II 13:22
PROVIDERS: ATTEND Internal Medicine
DX: D57.00 Hb-SS disease with crisis, unspecified (principal); E86.0 Dehydration; R11.0 Nausea; R52 Pain, unspecified
CPT/HCPCS: 96366; 96367; 96361; J1200; J1170; J2405; 96374; 96375

== ENCOUNTER 2019-08-08 12:03 | Emergency (ER) | payer MEDICAID ==
--- NOTE | 2019-08-08 12:32 | ER Document Report ---
ED Medical Screen (RME) - General Chief Complaint: Chest Pain Stated Complaint: CHEST PAIN Time Seen by Provider: 08/08/19 12:27 Primary Care Provider: AMALIA OROZCO PA-C [Primary Care Provider] - Follow up as needed Mode of Arrival: Wheelchair Information source: Patient Notes: 28-year-old 19 weeks female with history of sickle cell presents to the emergency department complaints of cough chest pain. Reports she was evaluated last week for the chest pain but reports cough for the past [address] Daugherty placed her on a Z-[place]. She reports she is not any better. Reports chest hurts only when she coughs. Denies fever vomiting diarrhea. Respiratory rate even unlabored no retractions. I have greeted and performed a rapid initial assessment of this patient. A comprehensive ED assessment and evaluation of the patient, analysis of test results and completion of the medical decision making process will be conducted by additional ED providers. TRAVEL OUTSIDE OF THE [place] IN LAST 30 DAYS: No - Related Data Allergies/Adverse Reactions: ceftriaxone sodium [From Rocephin] Allergy (Verified 08/08/19 12:24) Cephalosporins Allergy (Verified 08/08/19 12:24) milk [Milk] Allergy (Verified 08/08/19 12:24) Shellfish * [Shellfish] Allergy (Verified 08/08/19 12:24) wheat [Wheat] Allergy (Verified 08/08/19 12:24) Past Medical History - Social History Family history: None, Reviewed & Not Pertinent - Past Medical History Cardiac Medical History: Reports: Hx Hypertension, Hx Heart Murmur Denies: Hx Coronary Artery Disease, Hx Heart Attack Pulmonary Medical History: Reports: Hx Asthma, Hx Pneumonia - 2016 Denies: Hx Bronchitis, Hx COPD, Hx Tuberculosis Neurological Medical History: Reports: Hx Migraine, Hx Seizures. Denies: Hx Cerebrovascular Accident Endocrine Medical History: Denies: Hx Diabetes Mellitus Type 1, Hx Diabetes Mellitus Type 2, Hx Hyperthyroidism, Hx Hypothyroidism Renal/ Medical History: Denies: Hx Peritoneal Dialysis GI Medical History: Reports: Hx Gastroesophageal Reflux Disease. Denies: Hx Cirrhosis, Hx Hepatitis Musculoskeltal Medical History: Denies Hx Arthritis, Denies Hx Fibromyalgia, Denies Hx Gout Skin Medical History: Denies Hx Eczema, Reports Hx MRSA, Denies Hx Psoriasis Psychiatric Medical History: Reports: Hx Depression Infectious Medical History: Denies: Hx Hepatitis Past Surgical History: Reports: Hx Adenoidectomy, Hx Cholecystectomy, Hx Oral Surgery - growth removed from under tongue, Hx Tonsillectomy, Other - Port placement 2 and removal for infection, multiple PICC lines, central l. Denies: Hx Hysterectomy, Hx Kidney (Renal Surgery), Hx Pacemaker - Immunizations Hx Diphtheria, Pertussis, Tetanus Vaccination: Yes Doctor's Discharge - Discharge Referrals: AMALIA OROZCO PA-C [Primary Care Provider] - Follow up as needed
[2019-08-08] MEDS ORDERED: HYDROMORPHONE HCL INJ/PF 2 MG/ML AMPULE IV ONE ×3 (12:44→17:47)
[2019-08-08 13:01] LABS: ABSOLUTE RETICS # 0.189 10^6/uL (0.028-0.122); HEMATOCRIT 18.8 % (36.0-47.0); MEAN CORPUSCULAR HEMOGLOBIN 31.6 pg (27.0-33.4); MEAN CORPUSCULAR HGB CONC 36.7 g/dL (32.0-36.0); PLATELET COUNT 265 10^3/uL (150-450); RED BLOOD COUNT 2.18 10^6/uL (3.72-5.28); RED CELL DISTRIBUTION WIDTH 21.8 % (11.5-14.0); RETICULOCYTE COUNT (AUTO) 8.68 % (0.66-2.85); WHITE BLOOD COUNT 11.5 10^3/uL (4.0-10.5)
--- NOTE | 2019-08-08 13:09 | RADIOLOGY REPORT (SQ) ---
EXAM DESCRIPTION: CHEST 2 VIEWS COMPLETED DATE/TIME: 08/08/2019 1:00 pm REASON FOR STUDY: cough, cp COMPARISON: 08/01/2019. EXAM PARAMETERS: NUMBER OF VIEWS: two views TECHNIQUE: Digital Frontal and Lateral radiographic views of the chest acquired. RADIATION DOSE: NA LIMITATIONS: none FINDINGS: LUNGS AND PLEURA: No opacities, masses or pneumothorax. No pleural effusion. MEDIASTINUM AND HILAR STRUCTURES: No masses or contour abnormalities. HEART AND VASCULAR STRUCTURES: Heart normal size. No evidence for failure. BONES: No acute findings. HARDWARE: None in the chest. OTHER: No other significant finding. IMPRESSION: NO ACUTE RADIOGRAPHIC FINDING IN THE CHEST. TECHNICAL DOCUMENTATION: JOB ID: [id number] [employer]- All Rights Reserved Reading location - IP/workstation name: [email or web address]
[2019-08-08 13:14] LABS: ALBUMIN 3.2 g/dL (3.5-5.0); ALKALINE PHOSPHATASE 52 U/L (38-126); ANION GAP 6 (5-19); ASPARTATE AMINO TRANSFERASE 59 U/L (14-36); BILIRUBIN,TOTAL 1.8 mg/dL (0.2-1.3); BLOOD UREA NITROGEN 3 mg/dL (7-20); CALCIUM 8.6 mg/dL (8.4-10.2); CARBON DIOXIDE 24 mmol/L (22-30); CHLORIDE 105 mmol/L (98-107); GLUCOSE 93 mg/dL (75-110); POTASSIUM 3.4 mmol/L (3.6-5.0)
[2019-08-08 13:23] LABS: MEAN CORPUSCULAR VOLUME 86 fl (80-97)
[2019-08-08 13:28] LABS: ABSOLUTE LYMPHOCYTES# (MANUAL) 5.5 10^3/uL (0.5-4.7); ABSOLUTE MONOCYTES # (MANUAL) 0.1 10^3/uL (0.1-1.4); BASOPHILS % (MANUAL) 1 % (0-2); EOSINOPHILS % (MANUAL) 0 % (0-6); LYMPHOCYTES % (MANUAL) 48 % (13-45); MONOCYTES % (MANUAL) 1 % (3-13); NUCLEATED RED BLOOD CELLS 14 /100 WBC (0); SEGMENTED NEUTROPHILS % (MAN) 50 % (42-78); TOTAL CELLS COUNTED 100
[2019-08-08 13:34] LABS: ANISOCYTOSIS 3+; POIKILOCYTOSIS 2+; POLYCHROMASIA SLIGHT; SICKLE RED CELLS 2+; TOXIC VACUOLATION PRESENT
[2019-08-08 13:35] LABS: PLATELET COMMENT ADEQUATE
[2019-08-08 13:38] LABS: HEMOGLOBIN 6.9 g/dL (12.0-15.5)
[2019-08-08] MEDS: RINGERS SOLUTION,LACTATED 1,000 ML IV PRN ×3 (15:11→18:37)
[2019-08-08] MEDS ORDERED: DIPHENHYDRAMINE HCL 50 MG/ML VIAL IV ONE (15:21)
[2019-08-08 15:56] LABS: APPEARANCE,URINE CLEAR; BILIRUBIN,URINE NEGATIVE (NEGATIVE); COLOR,URINE YELLOW; GLUCOSE, URINE NEGATIVE (NEGATIVE); KETONES,URINE NEGATIVE (NEGATIVE); LEUKOCYTE ESTERASE,URINE NEGATIVE (NEGATIVE); NITRITE,URINE NEGATIVE (NEGATIVE); PROTEIN,URINE 30 mg/dL (NEGATIVE); URINE SPECIFIC GRAVITY 1.009
[2019-08-08] MEDS ORDERED: PROCHLORPERAZINE EDISYLATE INJ 10 MG/2 ML VIAL IV ONE (16:17)
--- NOTE | 2019-08-08 16:26 | ER Document Report ---
ED General - General Chief Complaint: Sickle Cell Crisis Stated Complaint: CHEST PAIN Time Seen by Provider: 08/08/19 12:27 Primary Care Provider: AMALIA OROZCO PA-C [Primary Care Provider] - Follow up as needed Mode of Arrival: Wheelchair Information source: Patient Notes: 28-year-old black female arrives with chief complaint of having sickle cell exacerbation. Patient is now 19 weeks gravid and was seen by [facility] yesterday. Patient reports for the last 2 to 3 days she has had rhinorrhea and productive green phlegm and was called in Zithromax by her sickle cell doctor at [facility]. Patient has received 3 mg of Dilaudid per admitting triage crew and labs were drawn for this patient. TRAVEL OUTSIDE OF THE [place] IN LAST 30 DAYS: No - HPI Onset: Other - 2 days - Related Data Allergies/Adverse Reactions: ceftriaxone sodium [From Rocephin] Allergy (Verified 08/08/19 12:24) Cephalosporins Allergy (Verified 08/08/19 12:24) milk [Milk] Allergy (Verified 08/08/19 12:24) Shellfish * [Shellfish] Allergy (Verified 08/08/19 12:24) wheat [Wheat] Allergy (Verified 08/08/19 12:24) Home Medications: oxycodone 15. azithromycin Past Medical History - General Information source: Patient - Social History Smoking Status: Never Smoker Chew tobacco use (# tins/day): No Frequency of alcohol use: None Drug Abuse: None Family History: None, DM, Malignancy - Brother with Hodgkin's lymphoma. Matern al grandfather with lung cancer., Other - sickle trait in Mother and Father Patient has suicidal ideation: No Patient has homicidal ideation: No - Past Medical History Cardiac Medical History: Reports: Hx Hypertension, Hx Heart Murmur Denies: Hx Coronary Artery Disease, Hx Heart Attack Pulmonary Medical History: Reports: Hx Asthma, Hx Pneumonia - 2017 Denies: Hx Bronchitis, Hx COPD, Hx Tuberculosis Neurological Medical History: Reports: Hx Migraine, Hx Seizures. Denies: Hx Cerebrovascular Accident Endocrine Medical History: Denies: Hx Diabetes Mellitus Type 1, Hx Diabetes Mellitus Type 2, Hx Hyperthyroidism, Hx Hypothyroidism Renal/ Medical History: Denies: Hx Peritoneal Dialysis GI Medical History: Reports: Hx Gastroesophageal Reflux Disease. Denies: Hx Cirrhosis, Hx Hepatitis Musculoskeletal Medical History: Denies Hx Arthritis, Denies Hx Fibromyalgia, Denies Hx Gout Skin Medical History: Denies Hx Eczema, Reports Hx MRSA, Denies Hx Psoriasis Psychiatric Medical History: Reports: Hx Depression Infectious Medical History: Denies: Hx Hepatitis Past Surgical History: Reports: Hx Adenoidectomy, Hx Cholecystectomy, Hx Oral Surgery - growth removed from under tongue, Hx Tonsillectomy, Other - Port placement 2 and removal for infection, multiple PICC lines, central l. Denies: Hx Hysterectomy, Hx Kidney (Renal Surgery), Hx Pacemaker - Immunizations Hx Diphtheria, Pertussis, Tetanus Vaccination: Yes Hx Pneumococcal Vaccination: 07/08/11 Review of Systems - Review of Systems Constitutional: See HPI, Chills, Malaise, Weakness EENT: See HPI, Nose congestion, Nose discharge, Sinus pressure, Sinus discharge Cardiovascular: No symptoms reported Respiratory: See HPI, Cough Gastrointestinal: See HPI, Nausea, Other - Genitourinary: No symptoms reported Female Genitourinary: No symptoms reported Musculoskeletal: No symptoms reported Skin: No symptoms reported Hematologic/Lymphatic: No symptoms reported Neurological/Psychological: No symptoms reported Physical Exam - Vital signs Vitals: Temp Pulse Resp BP Pulse Ox 98.3 F 81 20 106/73 94 08/08/19 12:22 08/08/19 12:22 08/08/19 12:22 08/08/19 12:22 08/08/19 12:22 Interpretation: Hypotensive, Tachypneic - General General appearance: Anxious In distress: Mild - HEENT Head: Normocephalic Eyes: Normal Conjunctiva: Normal Cornea: Normal Extraocular movements intact: Yes Eyelashes: Normal Pupils: PERRL Nasal: Clear rhinorrhea Mouth/Lips: Normal Mucous membranes: Dry Pharynx: Normal Neck: Normal - Respiratory Respiratory status: No respiratory distress Chest status: Nontender Breath sounds: Productive cough Chest palpation: Normal - Cardiovascular Rhythm: Tachycardia Heart sounds: Normal auscultation Murmur: No Friction rub: No Yogi's crunch: No - Abdominal Inspection: Normal Distension: No distension Bowel sounds: Normal Tenderness: Nontender - Genitourinary External exam: Normal - Back Back: Normal - Extremities General upper extremity: Normal inspection General lower extremity: Normal inspection - Neurological Neuro grossly intact: Yes Cognition: Normal Orientation: AAOx4 Kelsey Coma Scale Eye Opening: Spontaneous Stella Coma Scale Verbal: Oriented Stella Coma Scale Motor: Obeys Commands Stella Coma Scale Total: 15 Speech: Normal Cranial nerves: Normal Cerebellar coordination: Normal Motor strength normal: LUE, RUE, LLE, RLE - Psychological Associated symptoms: Anxious - Skin Skin Temperature: Warm Skin Moisture: Dry Course - Vital Signs Vital signs: Temp Pulse Resp BP Pulse Ox 98.3 F 81 22 H 103/55 L 96 08/08/19 12:22 08/08/19 12:22 08/08/19 16:01 08/08/19 16:01 08/08/19 16:01 - Laboratory Result Diagrams: 08/08/19 12:45 08/08/19 12:45 Laboratory results interpreted by me: 08/08/19 08/08/19 08/08/19 12:45 12:45 15:45 WBC 11.5 H RBC 2.18 L Hgb 6.9 L Hct 18.8 L MCHC 36.7 H RDW 21.8 H Reticulocyte # 0.189 H Lymphocytes % (Manual) 48 H Monocytes % (Manual) 1 L Abs Lymphs (Manual) 5.5 H Retic Count (auto) 8.68 H Sodium 135.0 L Potassium 3.4 L BUN 3 L Creatinine 0.41 L Total Bilirubin 1.8 H AST 59 H Total Protein 6.0 L Albumin 3.2 L Urine Protein 30 H Urine Blood SMALL H Urine Urobilinogen 4.0 H - Diagnostic Test Radiology reviewed: Reports reviewed Critical Care Note - Critical Care Note Total time excluding time spent on procedures (mins): 90 Comments: Advised patient we will attempt IV Demerol 100 and spoke with pharmacy [place] at [phone] advised he will arrange for this and shift through tubing; also I advised patient of her laboratory reports and negative influenza and negative chest x- ray Discharge - Discharge Clinical Impression: Opiate dependence, continuous, Sickle cell pain crisis URI (upper respiratory infection) Qualifiers: URI type: unspecified URI Qualified Code(s): J06.9 - Acute upper respiratory infection, unspecified Hypotension Qualifiers: Hypotension type: maternal hypotension of Trimester: second trimester Qualified Code(s): O26.52 - Maternal hypotension syndrome, second trimester Condition: Good Disposition: HOME, SELF-CARE Instructions: Upper Respiratory Illness ([facility]), Oral Narcotic Medication ([facility]) Additional Instructions: Follow-up with OB doctor on Saturday return to ER as needed also follow-up with your [facility] sickle cell doctor. Take medicines as directed encourage fluids Prescriptions: Mupirocin [Bactroban 2% Ointment 22 gm] 1 applic NASL HSP PRN #1 tube PRN Reason: Guaifenesin/Codeine Phos [Robitussin-AC Syrup 59 ml] 5 ml PO QIDP PRN #60 ml PRN Reason: Referrals: AMALIA OROZCO PA-C [Primary Care Provider] - Follow up as needed
[2019-08-08 16:37] LABS: A TYPE INFLUENZA AG NEGATIVE (NEGATIVE); B INFLUENZA AG NEGATIVE (NEGATIVE)
[2019-08-08] MEDS ORDERED: MEPERIDINE HCL/PF INJ 25 MG/1 ML DISP.SYRIN IV ONE (17:00)
[2019-08-08] MEDS ORDERED: DEXAMETHASONE SOD PHOS INJ 10 MG/1 ML VIAL IV ONE (17:47)
[2019-08-08 19:59] VITALS: BP 110/59
--- NOTE | 2019-08-08 23:40 | EKG REPORT ---
SEVERITY:- ABNORMAL ECG - SINUS RHYTHM NONSPECIFIC T ABNORMALITIES, DIFFUSE LEADS BORDERLINE PROLONGED QT INTERVAL : Confirmed by: Bradley Alarcon 08-Aug-2019 23:39:29
== END 2019-08-08 19:57 | disposition home or self-care (01) ==
LOC: ER 12:03
DX: O99.012 Anemia complicating pregnancy, second trimester (principal); D57.00 Hb-SS disease with crisis, unspecified; O99.322 Drug use complicating pregnancy, second trimester; F11.20 Opioid dependence, uncomplicated; O26.52 Maternal hypotension syndrome, second trimester; O26.892 Other specified pregnancy related conditions, second trimester; J06.9 Acute upper respiratory infection, unspecified; J34.89 Other specified disorders of nose and nasal sinuses; O16.2 Unspecified maternal hypertension, second trimester; Z3A.19 19 weeks gestation of pregnancy; Z88.8 Allergy status to other drugs, medicaments and biological substances; Z79.899 Other long term (current) drug therapy
CPT/HCPCS: 93005; 96376; 99284; 96361; 96374; 96375; 36415; 85025; 85045; 80053; 81001; 87804; 71046; 93010; J1200; J2175; J1170; J0780; J7120; J1100

== ENCOUNTER 2019-08-10 13:56 | Inpatient (IN) | payer MEDICAID ==
[2019-08-10] MEDS ORDERED: NORMAL SALINE 1000 ML 1,000 ML IV ONE (15:21)
--- NOTE | 2019-08-10 15:25 | ER Document Report ---
ED Medical Screen (RME) - General Chief Complaint: Nausea/Vomiting Stated Complaint: VOMITING/DIARRHEA/BODY ACHES/NUMBNESS Time Seen by Provider: 08/10/19 15:12 Primary Care Provider: AMALIA OROZCO PA-C [Primary Care Provider] - Follow up as needed Notes: HPI 29-year-old female who states that she is 19 weeks with a history of sickle cell presenting for generalized body pain. Patient states she has been here almost every day, states that she follows with Dr. Daugherty for her [place] and with [facility] for her . Patient has not had a fever. States she finished azithromycin today for an upper respiratory infection. Patient denies acute abdominal pain denies vaginal bleeding or discharge. States her normal sickle cell is pain in the back and hips but today she feels pain everywhere. On review of the patient record she has been to the emergency department 17 times in the last 30 days for sickle cell crisis issues. She admits to not following up with her primary providers. States that she has had continued nausea issues for which she takes Zofran at home without resolution of her nausea. States that she normally would take Phenergan but believed that she could not take Phenergan with . She did not discuss this with her MACHINE MARKER. I have greeted and performed a rapid initial assessment of this patient. A comprehensive ED assessment and evaluation of the patient, analysis of test results and completion of the medical decision making process will be conducted by additional ED providers PHYSICAL EXAMINATION: GENERAL: Well-appearing, well-nourished and in no acute distress. HEAD: Atraumatic, normocephalic. EYES: sclera anicteric, conjunctiva are normal. ENT: Moist mucous membranes. NECK: Normal range of motion LUNGS: Normal work of breathing HEART: 2+ radial pulses bilaterally ABD: limited by positioning for exam in triage. EXTREMITIES: no pitting or edema. No cyanosis. NEUROLOGICAL: No focal neurological deficits. Moves all extremities spontaneously and on command. PSYCH: agitated and angry affect. SKIN: Warm, Dry, normal turgor, no rashes or lesions noted. TRAVEL OUTSIDE OF THE [place] IN LAST 30 DAYS: No - Related Data Allergies/Adverse Reactions: ceftriaxone sodium [From Rocephin] Allergy (Verified 08/08/19 12:24) Cephalosporins Allergy (Verified 08/08/19 12:24) milk [Milk] Allergy (Verified 08/08/19 12:24) Shellfish * [Shellfish] Allergy (Verified 08/08/19 12:24) wheat [Wheat] Allergy (Verified 08/08/19 12:24) Home Medications: Oxycodone, Folic Acid, Azithromycin Past Medical History - Social History Family history: None, Reviewed & Not Pertinent - Past Medical History Cardiac Medical History: Reports: Hx Hypertension, Hx Heart Murmur Denies: Hx Coronary Artery Disease, Hx Heart Attack Pulmonary Medical History: Reports: Hx Asthma, Hx Pneumonia - 2017 Denies: Hx Bronchitis, Hx COPD, Hx Tuberculosis Neurological Medical History: Reports: Hx Migraine, Hx Seizures. Denies: Hx Cerebrovascular Accident Endocrine Medical History: Denies: Hx Diabetes Mellitus Type 1, Hx Diabetes Mellitus Type 2, Hx Hyperthyroidism, Hx Hypothyroidism Renal/ Medical History: Denies: Hx Peritoneal Dialysis GI Medical History: Reports: Hx Gastroesophageal Reflux Disease. Denies: Hx Cirrhosis, Hx Hepatitis Musculoskeltal Medical History: Denies Hx Arthritis, Denies Hx Fibromyalgia, Denies Hx Gout Skin Medical History: Denies Hx Eczema, Reports Hx MRSA, Denies Hx Psoriasis Psychiatric Medical History: Reports: Hx Depression Infectious Medical History: Denies: Hx Hepatitis Past Surgical History: Reports: Hx Adenoidectomy, Hx Cholecystectomy, Hx Oral Surgery - growth removed from under tongue, Hx Tonsillectomy, Other - Port placement 2 and removal for infection, multiple PICC lines, central l. Denies: Hx Hysterectomy, Hx Kidney (Renal Surgery), Hx Pacemaker - Immunizations Hx Diphtheria, Pertussis, Tetanus Vaccination: Yes Physical Exam - Vital signs Vitals: Temp Pulse Resp BP Pulse Ox 98.1 F 63 20 134/77 H 95 08/10/19 14:12 08/10/19 14:12 08/10/19 14:12 08/10/19 14:12 08/10/19 14:12 Course - Vital Signs Vital signs: Temp Pulse Resp BP Pulse Ox 98.1 F 63 20 134/77 H 95 08/10/19 14:12 08/10/19 14:12 08/10/19 14:12 08/10/19 14:12 08/10/19 14:12 Doctor's Discharge - Discharge Referrals: AMALIA OROZCO PA-C [Primary Care Provider] - Follow up as needed
[2019-08-10] MEDS ORDERED: ONDANSETRON HCL INJ/PF 4 MG/2 ML SDV IV ONE (15:45)
[2019-08-10] MEDS ORDERED: HYDROMORPHONE HCL INJ/PF 2 MG/ML AMPULE IV ONE ×3 (16:01→18:20)
[2019-08-10 16:05] LABS: ABSOLUTE RETICS # 0.342 10^6/uL (0.028-0.122); HEMATOCRIT 22.1 % (36.0-47.0); MEAN CORPUSCULAR HEMOGLOBIN 32.3 pg (27.0-33.4); MEAN CORPUSCULAR HGB CONC 35.7 g/dL (32.0-36.0); PLATELET COUNT 285 10^3/uL (150-450); RED BLOOD COUNT 2.44 10^6/uL (3.72-5.28); RED CELL DISTRIBUTION WIDTH 23.1 % (11.5-14.0); RETICULOCYTE COUNT (AUTO) 14.02 % (0.66-2.85); WHITE BLOOD COUNT 14.5 10^3/uL (4.0-10.5)
[2019-08-10 16:16] LABS: HEMOGLOBIN 7.9 g/dL (12.0-15.5)
[2019-08-10 16:17] LABS: MEAN CORPUSCULAR VOLUME 90 fl (80-97)
[2019-08-10 16:31] LABS: ABSOLUTE LYMPHOCYTES# (MANUAL) 3.9 10^3/uL (0.5-4.7); ABSOLUTE MONOCYTES # (MANUAL) 1.6 10^3/uL (0.1-1.4); BAND NEUTROPHILS % (MANUAL) 2 % (3-5); BASOPHILS % (MANUAL) 0 % (0-2); EOSINOPHILS % (MANUAL) 0 % (0-6); LYMPHOCYTES % (MANUAL) 27 % (13-45); MONOCYTES % (MANUAL) 11 % (3-13); NUCLEATED RED BLOOD CELLS 52 /100 WBC (0); SEGMENTED NEUTROPHILS % (MAN) 60 % (42-78); TOTAL CELLS COUNTED 100
[2019-08-10 16:43] LABS: POLYCHROMASIA 1+
[2019-08-10 16:44] LABS: ANISOCYTOSIS 3+; HOWELL-JOLLY BODIES PRESENT; PLATELET COMMENT ADEQUATE; POIKILOCYTOSIS 3+; SICKLE RED CELLS 2+; TEAR DROP CELLS SLIGHT
[2019-08-10 17:27] LABS: ALBUMIN 3.2 g/dL (3.5-5.0); ALKALINE PHOSPHATASE 56 U/L (38-126); ANION GAP 6 (5-19); ASPARTATE AMINO TRANSFERASE 53 U/L (14-36); BILIRUBIN,TOTAL 2.2 mg/dL (0.2-1.3); BLOOD UREA NITROGEN 2 mg/dL (7-20); CARBON DIOXIDE 23 mmol/L (22-30); CHLORIDE 107 mmol/L (98-107); GLUCOSE 79 mg/dL (75-110); POTASSIUM 3.1 mmol/L (3.6-5.0)
--- NOTE | 2019-08-10 18:51 | ER Document Report ---
ED General - General Chief Complaint: Nausea/Vomiting Stated Complaint: VOMITING/DIARRHEA/BODY ACHES/NUMBNESS Time Seen by Provider: 08/10/19 15:12 Primary Care Provider: AMALIA OROZCO PA-C [Primary Care Provider] - Follow up as needed Notes: 29 y/o female who is approximately 19 weeks presents with nausea/ vomiting and generalized pain. Pt has a history of sickle cell, she sees Dr. Cornelius. Pt states she has been unable to take her home oxycodone for her sickle cell pain due to nausea/vomiting. Pt denies any chest pain or fever. Pt was seen 2 days ago for same in this ER. TRAVEL OUTSIDE OF THE [place] IN LAST 30 DAYS: No - Related Data Allergies/Adverse Reactions: ceftriaxone sodium [From Rocephin] Allergy (Verified 08/08/19 12:24) Cephalosporins Allergy (Verified 08/08/19 12:24) milk [Milk] Allergy (Verified 08/08/19 12:24) Shellfish * [Shellfish] Allergy (Verified 08/08/19 12:24) wheat [Wheat] Allergy (Verified 08/08/19 12:24) Home Medications: Oxycodone, Folic Acid, Azithromycin Past Medical History - Social History Smoking Status: Unknown if Ever Smoked Family History: None, DM, Malignancy - Brother with Hodgkin's lymphoma. Maternal grandfather with lung cancer., Other - sickle trait in Mother and Father Patient has suicidal ideation: No Patient has homicidal ideation: No - Past Medical History Cardiac Medical History: Reports: Hx Hypertension, Hx Heart Murmur Denies: Hx Coronary Artery Disease, Hx Heart Attack Pulmonary Medical History: Reports: Hx Asthma, Hx Pneumonia - 2016 Denies: Hx Bronchitis, Hx COPD, Hx Tuberculosis Neurological Medical History: Reports: Hx Migraine, Hx Seizures. Denies: Hx Cerebrovascular Accident Endocrine Medical History: Denies: Hx Diabetes Mellitus Type 1, Hx Diabetes Mellitus Type 2, Hx Hyperthyroidism, Hx Hypothyroidism Renal/ Medical History: Denies: Hx Peritoneal Dialysis GI Medical History: Reports: Hx Gastroesophageal Reflux Disease. Denies: Hx Cirrhosis, Hx Hepatitis Musculoskeletal Medical History: Denies Hx Arthritis, Denies Hx Fibromyalgia, Denies Hx Gout Skin Medical History: Denies Hx Eczema, Reports Hx MRSA, Denies Hx Psoriasis Psychiatric Medical History: Reports: Hx Depression Infectious Medical History: Denies: Hx Hepatitis Past Surgical History: Reports: Hx Adenoidectomy, Hx Cholecystectomy, Hx Oral Surgery - growth removed from under tongue, Hx Tonsillectomy, Other - Port plac ement 2 and removal for infection, multiple PICC lines, central l. Denies: Hx Hysterectomy, Hx Kidney (Renal Surgery), Hx Pacemaker - Immunizations Hx Diphtheria, Pertussis, Tetanus Vaccination: Yes Hx Pneumococcal Vaccination: 07/08/11 Review of Systems - Review of Systems Notes: Constitutional: Negative for fever. HENT: Negative for sore throat. Eyes: Negative for visual changes. Cardiovascular: Negative for chest pain. Respiratory: Negative for shortness of breath. Gastrointestinal: Positive for nausea/vomiting. Negative for abdominal pain or diarrhea. Genitourinary: Negative for dysuria. Musculoskeletal: Positive for back pain and leg pain. Skin: Negative for rash. Neurological: Negative for headaches, weakness or numbness. 10 point ROS negative except as marked above and in HPI. Physical Exam - Vital signs Vitals: Temp Pulse Resp BP Pulse Ox 98.1 F 63 20 134/77 H 95 08/10/19 14:12 08/10/19 14:12 08/10/19 14:12 08/10/19 14:12 08/10/19 14:12 - Notes Notes: GENERAL: Well-appearing, well-nourished and uncomfortable HEAD: Atraumatic, normocephalic. EYES: Extraocular movements intact, sclera anicteric, conjunctiva are normal. NECK: Normal range of motion, supple without lymphadenopathy or JVD. LUNGS: Breath sounds clear to auscultation bilaterally and equal. No wheezes rales or rhonchi. HEART: Regular rate and rhythm without murmurs, rubs or gallops. ABDOMEN: Soft, nontender. No guarding, no rebound. No masses appreciated. EXTREMITIES: Normal range of motion, no pitting or edema. No clubbing or cyanosis. NEUROLOGICAL: Cranial nerves II through XII grossly intact. Normal speech, normal gait. PSYCH: Normal mood, normal affect. SKIN: Warm, Dry, normal turgor, no rashes or lesions noted. Course - Re-evaluation Re-evalutation: 08/10/19 Pt presents for sickle cell pain. Pt is 19 weeks and also has n/v so is unable to keep down her usual home pain medications. Retic count is 14. Pt is anemic but at baseline. Pt is having pain in legs and back. 08/10/19 19:[address] Khalil, department clerk computer operations technician for Dr. Cornelius pt's usual department clerk, who is on board with admission. 08/10/19 19:[address] Veena Jacome obgydavion, who is on board with consulting for any related complaints but otherwise states pt goes to medicine 08/10/19 19:[address] Matthews who accepted pt for admission. Requests tele bed. - Vital Signs Vital signs: Temp Pulse Resp BP Pulse Ox 98.6 F 57 L 20 129/65 H 95 08/10/19 17:13 08/10/19 17:13 08/10/19 17:13 08/10/19 17:13 08/10/19 17:13 - Laboratory Result Diagrams: 08/10/19 15:37 08/10/19 17:00 Laboratory results interpreted by me: 08/10/19 08/10/19 15:37 17:00 WBC 14.5 H RBC 2.44 L Hgb 7.9 L Hct 22.1 L RDW 23.1 H Reticulocyte # 0.342 H Band Neutrophils % 2 L Abs Neuts (Manual) 9.0 H Abs Monocytes (Manual) 1.6 H Retic Count (auto) 14.02 H Sodium 136.3 L Potassium 3.1 L BUN 2 L Creatinine 0.36 L Calcium 8.0 L Total Bilirubin 2.2 H AST 53 H Total Protein 6.0 L Albumin 3.2 L Discharge - Discharge Clinical Impression: 19 weeks gestation of Sickle cell anemia Qualifiers: Sickle-cell associated disorders: with unspecified crisis Qualified Code(s): D57.00 - Hb-SS disease with crisis, unspecified Nausea & vomiting Qualifiers: Vomiting type: unspecified Vomiting Intractability: unspecified Qualified Co de(s): R11.2 - Nausea with vomiting, unspecified Condition: Stable Disposition: ADMITTED INPATIENT Admitting Provider: Robert (Hospitalist) Unit Admitted: Telemetry Referrals: AMALIA OROZCO PA-C [Primary Care Provider] - Follow up as needed
[2019-08-10] MEDS ORDERED: POTASSIUM CHLORIDE 20 MEQ PACKET PO ONE (19:36)
[2019-08-10 20:46] LABS: APPEARANCE,URINE SLIGHTLY-CLOUDY; BILIRUBIN,URINE NEGATIVE (NEGATIVE); COLOR,URINE AMBER; GLUCOSE, URINE NEGATIVE (NEGATIVE); KETONES,URINE TRACE mg/dL (NEGATIVE); LEUKOCYTE ESTERASE,URINE NEGATIVE (NEGATIVE); NITRITE,URINE NEGATIVE (NEGATIVE); PROTEIN,URINE 100 mg/dL (NEGATIVE); URINE SPECIFIC GRAVITY 1.011
[2019-08-10 20:51] LABS: A TYPE INFLUENZA AG NEGATIVE (NEGATIVE); B INFLUENZA AG NEGATIVE (NEGATIVE)
[2019-08-10] MEDS ORDERED: ACETAMINOPHEN 325 MG TABLET PO PRN (21:03)
[2019-08-10] MEDS ORDERED: MAGNESIUM HYDROXIDE SUSP 30 ML UDCUP PO PRN (21:03)
[2019-08-10] MEDS ORDERED: MAG HYDROX/AL HYDROX/SIMETH SUSP 30 ML UDCUP PO PRN (21:03)
[2019-08-10] MEDS ORDERED: IPRATROPIUM/ALBUTEROL 0.5-2.5 MG/3 ML AMPUL NEB PRN (21:03)
[2019-08-10] MEDS ORDERED: DIPHENHYDRAMINE HCL 50 MG/ML VIAL IV ONE (21:25)
[2019-08-10 21:32] LABS: URINE AMPHETAMINES SCREEN NEGATIVE; URINE BARBITURATES SCREEN NEGATIVE; URINE BENZODIAZEPINES SCREEN NEGATIVE; URINE COCAINE SCREEN NEGATIVE; URINE MARIJUANA (THC) SCREEN NEGATIVE; URINE METHADONE SCREEN NEGATIVE; URINE PHENCYCLIDINE SCREEN NEGATIVE
[2019-08-10] MEDS ORDERED: NORMAL SALINE 1000 ML 1,000 ML IV SCH (22:00)
[2019-08-10] MEDS: OXYCODONE HCL SR 10 MG TABLET PO SCH (23:02)
[2019-08-10] MEDS: HEPARIN SOD (PORCINE) 5,000 UNIT/ML 1 ML VIAL SUBCUT SCH (23:03)
[2019-08-11] MEDS: HYDROMORPHONE HCL INJ/PF 2 MG/ML AMPULE IV PRN ×9 (01:48→23:59)
--- NOTE | 2019-08-11 03:26 | PDOC H&P ---
History of Present Illness Admission Date/PCP: 08/10/19 19:47 AMALIA OROZCO PA-C Patient complains of: Diffuse body pain History of Present Illness: PRANAV JOINER is a 29 year old female with a past medical history of migraine headache, opiate dependent chronic pain and recurrent sickle cell pain crisis who is at 19 weeks gestation. She presents with approximately 48 hours of diffuse body aches of the shoulders back shoulders and hips. She denies fever s hortness of breath, productive cough or urinary symptoms. She admits this is similar to other episodes of sickle cell pain crisis. She denies running out of narcotics. In the emergency department she has hemoglobin of 7.9 near her baseline however a reticulocyte count of 14. She receives IV fluids, IV Dilaudid and referred to the hospitalist for admission. Past Medical History Cardiac Medical History: Reports: Hypertension, Heart Murmur Denies: Coronary Artery Disease, Myocardial Infarction Pulmonary Medical History: Reports: Asthma, Pneumonia - 2017 Denies: Bronchitis, Chronic Obstructive Pulmonary Disease (COPD), Tuberc ulosis Neurological Medical History: Reports: Migraine, Seizures Endocrine Medical History: Denies: Diabetes Mellitus Type 1, Diabetes Mellitus Type 2, Hyperthyroidism, Hypothyroidism GI Medical History: Reports: Gastroesophageal Reflux Disease Denies: Cirrhosis, Hepatitis Musculoskeltal Medical History: Denies: Arthritis, Fibromyalgia, Gout Skin Medical History: Denies: Eczema, Psoriasis Psychiatric Medical History: Reports: Depression Hematology: Reports: Anemia, Sickle Cell Disease Denies: Bleeding Tendencies Past Surgical History Past Surgical History: Reports: Adenoidectomy, Cholecystectomy, Tonsillectomy, Other - Port placement 2 and removal for infection, multiple PICC lines, central l Denies: Hysterectomy, Pacemaker Social History Information Source: Patient Lives with: Family Smoking Status: Unknown if Ever Smoked Frequency of Alcohol Use: None Hx Recreational Drug Use: No Drugs: None Hx Prescription Drug Abuse: No - Advance Directive Resuscitation Status: Full Code Family History Family History: None, DM, Malignancy - Brother with Hodgkin's lymphoma. Maternal grandfather with lung cancer., Other - sickle trait in Mother and Father Parental Family History Reviewed: Yes Children Family History Reviewed: Yes Sibling(s) Family History Reviewed.: Yes Medication/Allergy Home Medications: Folic Acid 5 mg PO DAILY 07/11/19 Oxycodone HCl 15 mg PO Q3HP PRN 01/04/20 No122/Iron/Folic Acid [ Multi Tablet] 1 each PO DAILY 07/20/19 Allergies/Adverse Reactions: ceftriaxone sodium [From Rocephin] Allergy (Verified 08/08/19 12:24) Cephalosporins Allergy (Verified 08/08/19 12:24) milk [Milk] Allergy (Verified 08/08/19 12:24) Shellfish * [Shellfish] Allergy (Verified 08/08/19 12:24) wheat [Wheat] Allergy (Verified 08/08/19 12:24) Review of Systems Constitutional: ABSENT: chills, fever(s), headache(s), weight gain, weight loss Eyes: ABSENT: visual disturbances Ears: ABSENT: hearing changes Cardiovascular: ABSENT: chest pain, dyspnea on exertion, edema, orthropnea, palpitations Respiratory: ABSENT: cough, hemoptysis Gastrointestinal: PRESENT: constipation. ABSENT: abdominal pain, diarrhea, hematemesis, hematochezia, nausea, vomiting Genitourinary: ABSENT: dysuria, hematuria Musculoskeletal: ABSENT: joint swelling Integumentary: ABSENT: rash, wounds Neurological: ABSENT: abnormal gait, abnormal speech, confusion, dizziness, focal weakness, syncope Psychiatric: ABSENT: anxiety, depression, homidical ideation, suicidal ideation Endocrine: ABSENT: cold intolerance, heat intolerance, polydipsia, polyuria Hematologic/Lymphatic: ABSENT: easy bleeding, easy bruising Physical Exam Vital Signs: Temp Pulse Resp BP Pulse Ox 98.8 F 66 21 H 136/86 H 95 08/11/19 02:02 08/10/19 23:00 08/11/19 02:02 08/11/19 02:02 08/10/19 23:00 Intake & Output 08/09/19 08/10/19 08/11/19 11:59 11:59 11:59 Intake Total 1000 Balance 1000 Weight 66.224 kg General appearance: PRESENT: cooperative, mild distress, well-developed, well-nourished Head exam: PRESENT: atraumatic, normocephalic Eye exam: PRESENT: conjunctiva pink, EOMI, PERRLA. ABSENT: scleral icterus Ear exam: PRESENT: normal external ear exam Mouth exam: PRESENT: moist, tongue midline Neck exam: ABSENT: carotid bruit, JVD, lymphadenopathy, thyromegaly Respiratory exam: PRESENT: clear to auscultation william. ABSENT: rales, rhonchi, wheezes Cardiovascular exam: PRESENT: RRR. ABSENT: diastolic murmur, rubs, systolic murmur Pulses: PRESENT: normal dorsalis pedis pul Vascular exam: PRESENT: normal capillary refill GI/Abdominal exam: PRESENT: normal bowel sounds, soft. ABSENT: distended, guarding, mass, organolmegaly, rebound, tenderness Rectal exam: PRESENT: deferred Extremities exam: PRESENT: full ROM. ABSENT: calf tenderness, clubbing, pedal edema Neurological exam: PRESENT: alert, awake, oriented to person, oriented to place, oriented to time, oriented to situation, CN II-XII grossly intact. ABSENT: motor sensory deficit Psychiatric exam: PRESENT: appropriate affect, normal mood. ABSENT: homicidal ideation, suicidal ideation Skin exam: PRESENT: dry, intact, warm. ABSENT: cyanosis, rash Results Laboratory Results: 08/10/19 15:37 08/10/19 17:00 08/10/19 08/10/19 08/10/19 15:37 15:37 17:00 WBC 14.5 H RBC 2.44 L Hgb 7.9 L Hct 22.1 L MCV 90 D MCH 32.3 MCHC 35.7 RDW 23.1 H Plt Count 285 Seg Neutrophils % Not Reportable Retic Count (auto) 14.02 H Sodium Cancelled 136.3 L Potassium Cancelled 3.1 L Chloride Cancelled 107 Carbon Dioxide Cancelled 23 Anion Gap Cancelled 6 BUN Cancelled 2 L Creatinine Cancelled 0.36 L Est GFR ( Amer) Cancelled > 60 Est GFR (Non-Af Amer) Cancelled Glucose Cancelled 79 Calcium Cancelled 8.0 L Magnesium Total Bilirubin Cancelled 2.2 H AST Cancelled 53 H Alkaline Phosphatase Cancelled 56 Total Protein Cancelled 6.0 L Albumin Cancelled 3.2 L Urine Color Urine Appearance Urine pH Ur Specific [place] Urine Protein Urine Glucose (UA) Urine Ketones Urine Blood Urine Nitrite Ur Leukocyte Esterase Urine WBC (Auto) 08/10/19 08/10/19 17:00 20:15 WBC RBC Hgb Hct MCV MCH MCHC RDW Plt Count Seg Neutrophils % Retic Count (auto) Sodium Potassium Chloride Carbon Dioxide Anion Gap BUN Creatinine Est GFR ( Amer) Est GFR (Non-Af Amer) Glucose Calcium Magnesium 1.7 Total Bilirubin AST Alkaline Phosphatase Total Protein Albumin Urine Color ROLO Urine Appearance SLIGHTLY-CLOUDY Urine pH 8.0 Ur Specific [place] 1.011 Urine Protein 100 H Urine Glucose (UA) NEGATIVE Urine Ketones TRACE H Urine Blood MODERATE H Urine Nitrite NEGATIVE Ur Leukocyte Esterase NEGATIVE Urine WBC (Auto) 2 Assessment and Plan - Diagnosis (1) Sickle cell pain crisis Is this a current diagnosis for this admission?: Yes Plan: IV fluid challenge, supplemental oxygen, symptomatic management, follow-up a.m. CBC (2) 19 weeks gestation of Is this a current diagnosis for this admission?: Yes Plan: Denies episodes of abdominal pain or bleeding, follow-up [employer] consult (3) Anemia Qualifiers: Is this a current diagnosis for this admission?: Yes Plan: Near baseline, consider hematology consult (4) Chronic prescription opiate use Is this a current diagnosis for this admission?: Yes Plan: Patient does not take Dilaudid as an outpatient but will continue outpatient oxycodone 15 twice daily. With p.o. Dilaudid as needed breakthrough pain (5) Constipation Qualifiers: Is this a current diagnosis for this admission?: Yes Plan: Colace and fiber. Enema as needed - Time Time Spent with patient: 25-34 minutes - Inpatient Certification Medical Necessity: Need Close Monitoring Due to Risk of Patient Decompensation
[2019-08-11 06:54] LABS: HEMATOCRIT 18.7 % (36.0-47.0); MEAN CORPUSCULAR HEMOGLOBIN 32.6 pg (27.0-33.4); MEAN CORPUSCULAR HGB CONC 35.4 g/dL (32.0-36.0); MEAN CORPUSCULAR VOLUME 92 fl (80-97); PLATELET COUNT 226 10^3/uL (150-450); RED BLOOD COUNT 2.04 10^6/uL (3.72-5.28); RED CELL DISTRIBUTION WIDTH 24.4 % (11.5-14.0); WHITE BLOOD COUNT 12.1 10^3/uL (4.0-10.5)
[2019-08-11 07:05] LABS: ANION GAP 6 (5-19); BLOOD UREA NITROGEN 2 mg/dL (7-20); CALCIUM 7.4 mg/dL (8.4-10.2); CARBON DIOXIDE 22 mmol/L (22-30); CHLORIDE 109 mmol/L (98-107); GLUCOSE 90 mg/dL (75-110)
[2019-08-11] MEDS: HEPARIN SOD (PORCINE) 5,000 UNIT/ML 1 ML VIAL SUBCUT SCH ×3 (07:28→21:48)
[2019-08-11 07:53] LABS: HEMOGLOBIN 6.6 g/dL (12.0-15.5)
[2019-08-11 08:00] LABS: ABSOLUTE LYMPHOCYTES# (MANUAL) 5.6 10^3/uL (0.5-4.7); ABSOLUTE MONOCYTES # (MANUAL) 1.1 10^3/uL (0.1-1.4); BASOPHILS % (MANUAL) 0 % (0-2); EOSINOPHILS % (MANUAL) 0 % (0-6); LYMPHOCYTES % (MANUAL) 46 % (13-45); MONOCYTES % (MANUAL) 9 % (3-13); NUCLEATED RED BLOOD CELLS 17 /100 WBC (0); SEGMENTED NEUTROPHILS % (MAN) 45 % (42-78); TOTAL CELLS COUNTED 100
[2019-08-11] MEDS ORDERED: NORMAL SALINE 250 ML IV PRN ×2 (08:04)
[2019-08-11 08:07] LABS: ANISOCYTOSIS 3+; HOWELL-JOLLY BODIES PRESENT; PLATELET COMMENT ADEQUATE; POIKILOCYTOSIS 2+; POLYCHROMASIA 2+; SCHISTOCYTES SLIGHT; SICKLE RED CELLS 2+; TEAR DROP CELLS SLIGHT
[2019-08-11] MEDS: OXYCODONE HCL SR 10 MG TABLET PO SCH (09:22)
[2019-08-11] MEDS: POTASSIUM CHLORIDE 10 MEQ TABLET.ER PO SCH ×2 (09:22→17:16)
[2019-08-11] MEDS: DOCUSATE SODIUM 100 MG CAPSULE PO SCH ×2 (09:28→17:16)
[2019-08-11] MEDS: PSYLLIUM SEED-SF 5.85 GM PACKET PO SCH (09:28)
--- NOTE | 2019-08-11 10:28 | PDOC CONSULTATION ---
Consultation Consult Date: 08/11/19 Attending physician:: PATRICIA MORALES Provider Consulted: FREDDIE DAVID Consult reason:: 20+2ega, sickle cell crisis History of Present Illness Admission Date/PCP: 08/10/19 19:47 AMALIA OROZCO PA-C Patient complains of: body aches, sickle cell crisis History of Present Illness: PRANAV JOINER is a 29 year old female at 20+2ega (LOWELL 12/27/2019) presents via the ER for 2 days of body aches. She denies fevers. Notation from office that she was treated for cough with antibiotics from her [facility] providers - Dr. Reid (Hematology/Sickle Cell). Per patient reports in the office that patients providers at [facility] were planning to consult [facility] or [facility] for delivery at tertiary care facility. She has not been to see [facility] MFM yet. She also has not seen MFM at [facility] or [facility] includes the [facility]. During one her prior crisis she was transferred to [facility]. She reports that she start ed having a cough 1 wk ago which is why she was given anitibiotics. She came to the ER a couple of days ago with chest pain and CXR was benign. WBC is elevated on admission - slghtly improved today. Upon discussion with the patient and nursing staff she reports diarrhea - one episode of incontinence of stool/diarrhea in the ER. Pt also reports postnasal drip and productive cough with green sputum and occasional spotting of blood in sputum. Past Medical History LMP: 03/22/2019 Gynecological Infection: No Cardiac Medical History: Reports: Hypertension, Heart Murmur Denies: Coronary Artery Disease, Myocardial Infarction Pulmonary Medical History: Reports: Asthma, Pneumonia - 2017 Denies: Bronchitis, Chronic Obstructive Pulmonary Disease (COPD), Tuberculosis Neurological Medical History: Reports: Migraine, Seizures Endocrine Medical History: Denies: Diabetes Mellitus Type 1, Diabetes Mellitus Type 2, Hyperthyroidism, Hypothyroidism GI Medical History: Reports: Gastroesophageal Reflux Disease Denies: Cirrhosis, Hepatitis Musculoskeltal Medical History: Denies: Arthritis, Fibromyalgia, Gout Skin Medical History: Denies: Eczema, Psoriasis Psychiatric Medical History: Reports: Depression Social History Information Source: Patient Lives with: Family Smoking Status: Unknown if Ever Smoked Electronic Cigarette use?: No Frequency of Alcohol Use: None Hx Recreational Drug Use: No Drugs: None Hx Prescription Drug Abuse: No - Advance Directive Resuscitation Status: Full Code Family History Family History: None, DM, Malignancy - Brother with Hodgkin's lymphoma. Maternal grandfather with lung cancer., Other - sickle trait in Mother and Father Parental Family History Reviewed: No Children Family History Reviewed: NA Sibling(s) Family History Reviewed.: NA Medication/Allergy Home Medications: Folic Acid 5 mg PO DAILY 07/11/19 Oxycodone HCl 15 mg PO Q3HP PRN 07/11/19 No122/Iron/Folic Acid [ Multi Tablet] 1 each PO DAILY 07/20/19 Allergies/Adverse Reactions: ceftriaxone sodium [From Rocephin] Allergy (Verified 08/11/19 07:16) Cephalosporins Allergy (Verified 08/11/19 07:16) milk [Milk] Allergy (Verified 08/11/19 07:16) Shellfish * [Shellfish] Allergy (Verified 08/11/19 07:16) wheat [Wheat] Allergy (Verified 08/11/19 07:16) Review of Systems Constitutional: PRESENT: fatigue, other - body aches. ABSENT: fever(s) Cardiovascular: PRESENT: chest pain Respiratory: PRESENT: cough, sputum Gastrointestinal: PRESENT: abdominal pain, nausea Genitourinary: ABSENT: dysuria, hematuria Musculoskeletal: PRESENT: back pain Integumentary: ABSENT: rash, wounds Neurological: ABSENT: abnormal gait, abnormal speech, confusion, dizziness, focal weakness, syncope Endocrine: ABSENT: cold intolerance, heat intolerance, polydipsia, polyuria Hematologic/Lymphatic: ABSENT: easy bleeding, easy bruising Physical Exam - Physical Exam Vital Signs: Temp Pulse Resp BP Pulse Ox 98.2 F 54 L 16 131/72 H 99 08/11/19 08:39 08/11/19 08:50 08/11/19 08:39 08/11/19 08:39 08/11/19 08:39 Intake & Output 08/10/19 08/11/19 08/12/19 06:59 06:59 06:59 Intake Total 1000 Balance 1000 Weight 66.224 kg 65.9 kg General appearance: PRESENT: no acute distress, cooperative, well-developed, well-nourished Head exam: PRESENT: atraumatic, normocephalic Neck exam: PRESENT: full ROM. ABSENT: carotid bruit, JVD, lymphadenopathy, thyromegaly Respiratory exam: PRESENT: rhonchi, wheezes - inspiratory and expiratory. ABSENT: chest wall tenderness, clear to auscultation william Cardiovascular exam: PRESENT: RRR. ABSENT: diastolic murmur, rubs, systolic murmur Pulses: PRESENT: normal dorsalis pedis pul, +2 pedal pulses bilateral Vascular exam: PRESENT: normal capillary refill GI/Abdominal exam: PRESENT: normal bowel sounds, soft. ABSENT: distended, guarding, mass, organolmegaly, rebound, tenderness Rectal exam: PRESENT: deferred Extremities exam: PRESENT: full ROM. ABSENT: calf tenderness, clubbing, pedal edema Musculoskeletal exam: PRESENT: ambulatory Neurological exam: PRESENT: alert, awake, oriented to person, oriented to place, oriented to time, oriented to situation, CN II-XII grossly intact. ABSENT: motor sensory deficit Result Laboratory Results: 08/11/19 06:18 08/11/19 06:18 08/10/19 08/10/19 08/10/19 15:37 15:37 17:00 WBC 14.5 H RBC 2.44 L Hgb 7.9 L Hct 22.1 L MCV 90 D MCH 32.3 MCHC 35.7 RDW 23.1 H Plt Count 285 Seg Neutrophils % Not Reportable Retic Count (auto) 14.02 H Sodium Cancelled 136.3 L Potassium Cancelled 3.1 L Chloride Cancelled 107 Carbon Dioxide Cancelled 23 Anion Gap Cancelled 6 BUN Cancelled 2 L Creatinine Cancelled 0.36 L Est GFR ( Amer) Cancelled > 60 Est GFR (Non-Af Amer) Cancelled Glucose Cancelled 79 Calcium Cancelled 8.0 L Magnesium Total Bilirubin Cancelled 2.2 H AST Cancelled 53 H Alkaline Phosphatase Cancelled 56 Total Protein Cancelled 6.0 L Albumin Cancelled 3.2 L Urine Color Urine Appearance Urine pH Ur Specific [place] Urine Protein Urine Glucose (UA) Urine Ketones Urine Blood Urine Nitrite Ur Leukocyte Esterase Urine WBC (Auto) 08/10/19 08/10/19 08/11/19 17:00 20:15 06:18 WBC 12.1 H RBC 2.04 L Hgb 6.6 L Hct 18.7 L MCV 92 MCH 32.6 MCHC 35.4 RDW 24.4 H Plt Count 226 Seg Neutrophils % Not Reportable Retic Count (auto) Sodium Potassium Chloride Carbon Dioxide Anion Gap BUN Creatinine Est GFR ( Amer) Est GFR (Non-Af Amer) Glucose Calcium Magnesium 1.7 Total Bilirubin AST Alkaline Phosphatase Total Protein Albumin Urine Color ROLO Urine Appearance SLIGHTLY-CLOUDY Urine pH 8.0 Ur Specific [place] 1.011 Urine Protein 100 H Urine Glucose (UA) NEGATIVE Urine Ketones TRACE H Urine Blood MODERATE H Urine Nitrite NEGATIVE Ur Leukocyte Esterase NEGATIVE Urine WBC (Auto) 2 08/11/19 06:18 WBC RBC Hgb Hct MCV MCH MCHC RDW Plt Count Seg Neutrophils % Retic Count (auto) Sodium 137.3 Potassium 3.0 L* Chloride 109 H Carbon Dioxide 22 Anion Gap 6 BUN 2 L Creatinine 0.37 L Est GFR ( Amer) > 60 Est GFR (Non-Af Amer) Glucose 90 Calcium 7.4 L Magnesium Total Bilirubin AST Alkaline Phosphatase Total Protein Albumin Urine Color Urine Appearance Urine pH Ur Specific [place] Urine Protein Urine Glucose (UA) Urine Ketones Urine Blood Urine Nitrite Ur Leukocyte Esterase Urine WBC (Auto) Status: Imported from PACS Assessment & Plan - Diagnosis (1) Acute on chronic anemia Is this a current diagnosis for this admission?: Yes Plan: Hematology consulted Dr. Enamorado who knows the patient well and reports that he had also sent patient to [facility] with dx. S/w Dr. Reid (beulah johnson personal trainer at [facility]). Very much appreciate Dr. Enamorado and Dr. Reid's help with patient. Hemoglobin electrophoresis ordered - per Dr. Reid who also agreed with recommendation to transfer to [facility] for access to Sickle Cell Team and M. Anemia panel ordered. Initially reviewed with Dr. Messer regarding recommendations for transfusion but may need to delay transfusion to make sure that she is not developing Delayed Hemolytic Transfusion reaction. Will get labs and transfer patient. Will call [facility] for additional advice and accepting physician - Dr. Pulido s/w and accepted patient. Appreciate everyone assistance with this patient. (2) Chronic prescription opiate use Is this a current diagnosis for this admission?: Yes Plan: cont pain meds per PCM/Hematology and Admitting provider (3) Diarrhea Qualifiers: Diarrhea type: unspecified type Qualified Code(s): R19.7 - Diarrhea, unspecified Is this a current diagnosis for this admission?: Yes Plan: incontinence of diarrhea x 1 episode in setting of reported chronic constipation due to opioid use. COnsider Stool ova/parasite, c diff and stool studies per Primary team. (4) Qualifiers: Weeks of gestation: 20 weeks Qualified Code(s): Z3A.20 - 20 weeks gestation of Is this a current diagnosis for this admission?: Yes Plan: 20+2ega by LMP that is 5 days off of US LOWELL (therefore will keep LMP LOWELL) - LOWELL 12/27/2019 Incomplete anatomy - MFM at [facility] aware - will print and send with patients records anatomy US. Urine culture ordered No abdominal pain. US at bedside c/w 20wks ega and FHTs 145-150's Patient reassured with seeing FHTs Reviewed with patient concerns for with 2nd sickle crisis in and severe anemia. (5) Sickle cell pain crisis Is this a current diagnosis for this admission?: Yes Plan: Spoke with Dr. Reid and Dr. Pulido - appreciate both of their assistance and will recommend transfer to [facility] labor and delivery with accepting physician Dr. Pulido. (6) Asthma affecting in second trimester Is this a current diagnosis for this admission?: Yes Plan: Insp and expiratory wheeze. Reviewed with admitting provider and nebulizer ordered. Pt reports she was supposed to get inhaler as outpatient but has not yet. Keep NC with O2 to maintain continuous O2 sats greater than 95% (7) Leukocytosis Is this a current diagnosis for this admission?: Yes Plan: Unknown source of infection. Reviewed lung exam with covering provider and Dr. Messer to order CXR. Urine culture and GC/Chlam ordered. 1 gram Azithromycin ordered IV. possible respiratory infection - viral URI vs bacterial - again CXR pending. Incentive Spirometer reviewed with patient. (8) Chest pain Is this a current diagnosis for this admission?: Yes Plan: Likely due to Sickle cell crisis pain. Troponins/CK labs per Hospitalist discretion. Discrepancy in notes of back pain and patient verbal report of chest pain reviewed with provider and RN. CXR per Hospitalist also pending. (9) Cough Is this a current diagnosis for this admission?: Yes Plan: see above - Time Time Spent: Greater than 70 Minutes Critical Time spent with patient: 15-24 minutes Medications reviewed and adjusted accordingly: Yes Anticipated discharge: Tertiary Hospital Within: within 24 hours - Inpatient Certification Based on my medical assessment, after consideration of the patient's comorbidities, presenting symptoms, or acuity I expect that the services needed warrant INPATIENT care.: Yes I certify that my determination is in accordance with my understanding of Medicare's requirements for reasonable and necessary INPATIENT services [42 CFR 412.3e].: Yes Medical Necessity: Need Close Monitoring Due to Risk of Patient Decompensation, Need For IV Fluids, Need For Continuous Telemetry Monitoring, Need for Pain Control, Need for IV Antibiotics - Plan Summary Plan Summary: transfer to [facility] - [facility]
[2019-08-11 10:40] LABS: IRON(TIBC) 171.4 ug/dL (37-170)
[2019-08-11] MEDS: ONDANSETRON HCL INJ/PF 4 MG/2 ML SDV IV PRN ×2 (11:38→21:40)
[2019-08-11 11:53] LABS: FOLATE > 20.00 ng/mL (>2.76)
[2019-08-11] MEDS ORDERED: AZITHROMYCIN INJ 500 MG VIAL IV ONE (15:27)
[2019-08-11 16:36] LABS: CHLAM PCR NOT DETECTED (NOT DETECT)
--- NOTE | 2019-08-11 16:53 | PDOC TRANSFER SUMMARY ---
General Admission Date/PCP: 08/10/19 19:47 AMALIA OROZCO PA-C Admission Date: 08/10/19 Transfer Date: 08/11/19 Accepting Facility: [facility] Accepting Physician: Dr. Handley. Resuscitation Status: Full Code - Transfer Diagnosis (1) Sickle cell pain crisis Is this a current diagnosis for this admission?: Yes (2) Is this a current diagnosis for this admission?: Yes (3) Chronic prescription opiate use Is this a current diagnosis for this admission?: Yes (4) Constipation Is this a current diagnosis for this admission?: Yes (5) Sickle cell anemia with pain Is this a current diagnosis for this admission?: Yes - Transfer Medications Home Medications: Folic Acid 5 mg PO DAILY 07/11/19 Oxycodone HCl 15 mg PO Q3HP PRN 07/11/19 No122/Iron/Folic Acid [ Multi Tablet] 1 each PO DAILY 07/20/19 Transfer Medications: Current Medications Acetaminophen (Tylenol 325 Mg Tablet) 650 mg PO Q4HP PRN PRN Reason: FOR PAIN OR TEMP Stop: 09/09/19 21:02 Al Hydrox/Mg Hydrox/Simethicone (Maalox Plus Susp 30 Udcup) 30 ml PO Q6HP PRN PRN Reason: HEARTBURN Stop: 09/09/19 21:02 Albuterol/Ipratropium (Duoneb 3 Ml Ampul) 3 ml NEB [id number] PRN PRN Reason: SHORTNESS OF BREATH Stop: 09/09/19 21:02 Diphenhydramine HCl (Benadryl 25 Mg Capsule) 25 mg PO Q6HP PRN PRN Reason: ITCHING Stop: 09/10/19 14:32 Docusate Sodium (Colace 100 Mg Capsule) 100 mg PO BID FELICIA Stop: 09/10/19 09:59 Last Admin: 08/11/19 09:28 Dose: Not Given Documented by: Folic Acid (Folvite 1 Mg Tablet) 1 mg PO DAILY [facility] Stop: 09/11/19 09:59 Heparin Sodium (Porcine) (Heparin Inj 5,000 Units/Ml 1 Ml Vial) 5,000 unit SUBCUT Q8 FELICIA Stop: 09/09/19 21:59 Last Admin: 08/11/19 13:16 Dose: Not Given Documented by: Hydromorphone HCl (Dilaudid Inj/Pf 2 Mg/Ml Ampule) 2 mg IV Q2HP PRN PRN Reason: FOR PAIN Stop: 08/18/19 14:33 Last Admin: 08/11/19 15:05 Dose: 2 mg Documented by: Sodium Chloride (Nacl 0.9% 250 Ml Iv Soln) 250 mls @ 30 mls/hr IV .DURING TRANSFUSION PRN PRN Reason: THIS MED IS NOT "PRN" Stop: 08/12/19 08:03 Sodium Chloride (Nacl 0.9% 250 Ml Iv Soln) 250 mls @ 0 mls/hr IV CONTINUOUS PRN PRN Reason: AFTER EACH UNIT Stop: 08/12/19 08:03 Azithromycin 1,000 mg/ (Dextrose) 500 mls @ 500 mls/hr IV NOW ONE Stop: 08/11/19 17:59 Magnesium Hydroxide (Milk Of Magnesia 30 Ml Udcup) 30 ml PO HSP PRN PRN Reason: FOR CONSTIPATION Stop: 09/09/19 21:02 Ondansetron HCl (Zofran Inj/Pf 4 Mg/2 Ml Sdv) 4 mg IV Q8HP PRN PRN Reason: FOR NAUSEA/VOMITING Stop: 09/09/19 21:02 Last Admin: 08/11/19 11:38 Dose: 4 mg Documented by: Potassium Chloride (Klor-Con 10 Meq Tablet Er) 40 meq PO Q8A FELICIA Stop: 08/11/19 18:01 Last Admin: 08/11/19 09:22 Dose: 40 meq Documented by: Psyllium Hydrophilic Mucilloid (Metamucil-Sf Powder 5.85 Gm Packet) 1 packet PO DAILY [facility] Stop: 09/10/19 09:59 Last Admin: 08/11/19 09:28 Dose: Not Given Documented by: - Allergies Allergies/Adverse Reactions: ceftriaxone sodium [From Rocephin] Allergy (Verified 08/11/19 07:16) Cephalosporins Allergy (Verified 08/11/19 07:16) milk [Milk] Allergy (Verified 08/11/19 07:16) Shellfish * [Shellfish] Allergy (Verified 08/11/19 07:16) wheat [Wheat] Allergy (Verified 08/11/19 07:16) - Diet/Activity Discharge Diet: Regular Discharge Activity: Activity As Tolerated Hospital Course Hospital Course: 29 year old female with a medical history of active at 20+2ega (LOWELL 12/27/2019), migraine headache, opiate dependent chronic pain and recurrent sickle cell pain crisis who is at 20 weeks gestation. She presents with approximately 48 hours of diffuse body aches of the shoulders back shoulders and hips. She denies fever shortness of breath, productive cough or urinary symptoms. She admits this is similar to other episodes of sickle cell pain crisis. She denies running out of narcotics. In the emergency department she has hemoglobin of 7.9 near her baseline however a reticulocyte count of 14. Patient was subsequently admitted for acute pain episode of her sickle cell. She was started on IV fluids, oxygen supplementation as well as Dilaudid. Patient's hemoglobin was 6.6 and patient was typed and screened. However patient's director government Dr. Reid at [facility] recommends to hold off on transfusion for now until patient has been transferred to [facility]. Patient was evaluated by oncologist who has coordinated with [facility] to get patient transferred over there for closer monitoring given that patient is high risk given her significant history of sickle cell with frequent pain episodes and her current . Patient has been accepted onto the [facility] service by Dr. Handley. Patient is to be seen by her director government Dr. Reid upon arrival. Physical Exam Vital Signs: Temp Pulse Resp BP Pulse Ox 98.3 F 69 18 134/85 H 96 08/11/19 15:29 08/11/19 15:29 08/11/19 15:29 08/11/19 15:29 08/11/19 15:29 Intake & Output 08/10/19 08/11/19 08/12/19 06:59 06:59 06:59 Intake Total 1000 Balance 1000 Weight 66.224 kg 65.9 kg General appearance: PRESENT: no acute distress, cooperative Respiratory exam: PRESENT: clear to auscultation william, symmetrical, unlabored. ABSENT: tachypnea Cardiovascular exam: PRESENT: +S1, +S2. ABSENT: tachycardia Neurological exam: PRESENT: alert, awake, oriented to person, oriented to place, oriented to time Results Laboratory Results: 08/11/19 06:18 08/11/19 06:18 08/10/19 08/10/19 08/10/19 15:37 17:00 17:00 WBC 14.5 H RBC 2.44 L Hgb 7.9 L Hct 22.1 L MCV 90 D MCH 32.3 MCHC 35.7 RDW 23.1 H Plt Count 285 Seg Neutrophils % Retic Count (auto) 14.02 H Sodium 136.3 L Potassium 3.1 L Chloride 107 Carbon Dioxide 23 Anion Gap 6 BUN 2 L Creatinine 0.36 L Est GFR ( Amer) > 60 Glucose 79 Calcium 8.0 L Magnesium 1.7 Iron TIBC % Saturation Ferritin Total Bilirubin 2.2 H AST 53 H Alkaline Phosphatase 56 Total Protein 6.0 L Albumin 3.2 L Vitamin B12 Folate Urine Color Urine Appearance Urine pH Ur Specific [place] Urine Protein Urine Glucose (UA) Urine Ketones Urine Blood Urine Nitrite Ur Leukocyte Esterase Urine WBC (Auto) Blood Type Antibody Screen 08/10/19 08/11/19 08/11/19 20:15 06:18 06:18 WBC 12.1 H RBC 2.04 L Hgb 6.6 L Hct 18.7 L MCV 92 MCH 32.6 MCHC 35.4 RDW 24.4 H Plt Count 226 Seg Neutrophils % Not Reportable Retic Count (auto) Sodium 137.3 Potassium 3.0 L* Chloride 109 H Carbon Dioxide 22 Anion Gap 6 BUN 2 L Creatinine 0.37 L Est GFR ( Amer) > 60 Glucose 90 Calcium 7.4 L Magnesium Iron TIBC % Saturation Ferritin Total Bilirubin AST Alkaline Phosphatase Total Protein Albumin Vitamin B12 Folate Urine Color ROLO Urine Appearance SLIGHTLY-CLOUDY Urine pH 8.0 Ur Specific [place] 1.011 Urine Protein 100 H Urine Glucose (UA) NEGATIVE Urine Ketones TRACE H Urine Blood MODERATE H Urine Nitrite NEGATIVE Ur Leukocyte Esterase NEGATIVE Urine WBC (Auto) 2 Blood Type Antibody Screen 08/11/19 08/11/19 08/11/19 06:18 06:18 10:05 WBC RBC Hgb Hct MCV MCH MCHC RDW Plt Count Seg Neutrophils % Retic Count (auto) Sodium Potassium Chloride Carbon Dioxide Anion Gap BUN Creatinine Est GFR ( Amer) Glucose Calcium Magnesium Iron 171.4 H TIBC 217 L % Saturation 79 Ferritin Cancelled 3440.00 H Total Bilirubin AST Alkaline Phosphatase Total Protein Albumin Vitamin B12 383.0 Folate Cancelled > 20.00 Urine Color Urine Appearance Urine pH Ur Specific [place] Urine Protein Urine Glucose (UA) Urine Ketones Urine Blood Urine Nitrite Ur Leukocyte Esterase Urine WBC (Auto) Blood Type O POSITIVE Antibody Screen NEGATIVE
[2019-08-11] MEDS ORDERED: AZITHROMYCIN 1,000 MG in DEXTROSE 5%-WATER 500 ML IV ONE (17:00)
[2019-08-11] MEDS: DIPHENHYDRAMINE HCL 25 MG CAPSULE PO PRN ×2 (17:16→23:59)
--- NOTE | 2019-08-11 17:59 | Progress Note ---
Provider Note Provider Note: Patient was initially planned to be transferred to [facility] after M attending Dr. Pulido accepted patient. However, we were later notified that he had an emergency in the MFM maloney at [facility] and as such would not be able to accept patient at this time and would like patient to instead be transfe rred on to the hospitalist service and then MFM as well as hematology Dr. Reid will follow. I have called [facility] and patient has been accepted by the hospitalist Dr. Lloyd. However, they currently do not have any medical beds available patient has been placed on the wait list. In the meantime, discharge order has been discontinued. Will f/u CXR and continue current management of sickle cell pain episode here.
--- NOTE | 2019-08-11 22:01 | EKG REPORT ---
SEVERITY:- BORDERLINE ECG - SINUS RHYTHM BORDERLINE T ABNORMALITIES, ANTERIOR LEADS BORDERLINE PROLONGED QT INTERVAL : Confirmed by: Jessica Good MD 11-Aug-2019 22:00:09
--- NOTE | 2019-08-12 01:46 | RADIOLOGY REPORT (SQ) ---
EXAM DESCRIPTION: X-RAY CHEST TWO VIEWS CLINICAL HISTORY: 29 years Female sickle cell pain. chest pain, 19 weeks . COMPARISON: None TECHNIQUE: PA and lateral chest x-rays at 0002 hours on 08/12/2019. FINDINGS: EKG leads overlie the chest. The lungs are well expanded. There is a wedge-shaped opacity along the posteromedial left lung base partially silhouetting the left hemidiaphragm. There is thin discoid atelectasis above the left lateral costophrenic angle. There is mild thickening of the right major fissure. There is mild cardiomegaly with normal pulmonary vascularity. The costophrenic sulci are sharp. No pneumothorax. No acute bony abnormalities are seen. IMPRESSION: Subsegmental atelectasis and possible infiltrate along the posteromedial left lung base and discoid atelectasis in the lingula inferolaterally. Mild cardiomegaly.
[2019-08-12] MEDS: HYDROMORPHONE HCL INJ/PF 2 MG/ML AMPULE IV PRN ×10 (02:20→21:51)
[2019-08-12] MEDS: HEPARIN SOD (PORCINE) 5,000 UNIT/ML 1 ML VIAL SUBCUT SCH ×3 (06:19→21:52)
[2019-08-12 06:45] LABS: HEMATOCRIT 18.7 % (36.0-47.0); MEAN CORPUSCULAR HEMOGLOBIN 33.1 pg (27.0-33.4); MEAN CORPUSCULAR HGB CONC 35.2 g/dL (32.0-36.0); MEAN CORPUSCULAR VOLUME 94 fl (80-97); PLATELET COUNT 206 10^3/uL (150-450); RED BLOOD COUNT 1.99 10^6/uL (3.72-5.28); RED CELL DISTRIBUTION WIDTH 25.7 % (11.5-14.0); WHITE BLOOD COUNT 8.5 10^3/uL (4.0-10.5)
[2019-08-12 06:56] LABS: ALBUMIN 2.9 g/dL (3.5-5.0); ALKALINE PHOSPHATASE 51 U/L (38-126); ANION GAP 7 (5-19); ASPARTATE AMINO TRANSFERASE 45 U/L (14-36); BILIRUBIN,DIRECT 0.3 mg/dL (0.0-0.4); BILIRUBIN,TOTAL 1.9 mg/dL (0.2-1.3); BLOOD UREA NITROGEN 3 mg/dL (7-20); CALCIUM 7.7 mg/dL (8.4-10.2); CARBON DIOXIDE 21 mmol/L (22-30); CHLORIDE 111 mmol/L (98-107); GLUCOSE 72 mg/dL (75-110); POTASSIUM 3.8 mmol/L (3.6-5.0); TOTAL PROTEIN 5.6 g/dL (6.3-8.2)
[2019-08-12 07:48] LABS: HEMOGLOBIN 6.6 g/dL (12.0-15.5)
[2019-08-12 07:53] LABS: ABSOLUTE LYMPHOCYTES# (MANUAL) 4.8 10^3/uL (0.5-4.7); ABSOLUTE MONOCYTES # (MANUAL) 0.6 10^3/uL (0.1-1.4); BAND NEUTROPHILS % (MANUAL) 1 % (3-5); BASOPHILS % (MANUAL) 0 % (0-2); EOSINOPHILS % (MANUAL) 0 % (0-6); LYMPHOCYTES % (MANUAL) 56 % (13-45); MONOCYTES % (MANUAL) 7 % (3-13); NUCLEATED RED BLOOD CELLS 134 /100 WBC (0); SEGMENTED NEUTROPHILS % (MAN) 36 % (42-78); TOTAL CELLS COUNTED 100
[2019-08-12 07:57] LABS: ANISOCYTOSIS 3+; PLATELET COMMENT ADEQUATE; POLYCHROMASIA 2+; SICKLE RED CELLS 3+
[2019-08-12 08:13] LABS: TEAR DROP CELLS SLIGHT
--- NOTE | 2019-08-12 08:15 | PDOC CONSULTATION ---
Consultation Consult Date: 08/12/19 Attending physician:: CINDI AUSTIN Provider Consulted: BRUNA MENJIVAR Consult reason:: Patient with known history of sickle cell disease here with crisis History of Present Illness Admission Date/PCP: 08/10/19 19:47 AMALIA OROZCO PA-C Patient complains of: Pain crisis History of Present Illness: PRANAV JOINER is a 29 year old female with known history of longstanding sickle cell disease here with pain crisis. She has pain in her usual areas. She is currently , and being followed also by [facility] sickle cell program. I discussed her case extensively yesterday with her primary spitalist team as well as [employer] team, we have asked blood bank to ask for what [facility] found is their Red cell phenotype. However our blood bank is been taking care for transfusions now for 6 to 7 years, and she has maintained the same antibody profile. Her hemoglobin is in the 6 range. She would benefit from a simple transfusion in terms of her crisis. She is plan for exchange transfusions at [facility]. Past Medical History Cardiac Medical History: Reports: Hypertension, Heart Murmur Denies: Coronary Artery Disease, Myocardial Infarction Pulmonary Medical History: Reports: Asthma, Pneumonia - 2017 Denies: Bronchitis, Chronic Obstructive Pulmonary Disease (COPD), Tuberculosis Neurological Medical History: Reports: Migraine, Seizures Endocrine Medical History: Denies: Diabetes Mellitus Type 1, Diabetes Mellitus Type 2, Hyperthyroidism, Hypothyroidism GI Medical History: Reports: Gastroesophageal Reflux Disease Denies: Cirrhosis, Hepatitis Musculoskeltal Medical History: Denies: Arthritis, Fibromyalgia, Gout Skin Medical History: Denies: Eczema, Psoriasis Psychiatric Medical History: Reports: Depression Hematology: Reports: Anemia, Sickle Cell Disease Denies: Bleeding Tendencies Past Surgical History Past Surgical History: Reports: Adenoidectomy, Cholecystectomy, Tonsillectomy, Other - Port placement 2 and removal for infection, multiple PICC lines, central l Denies: Hysterectomy, Pacemaker Social History Information Source: Patient Lives with: Family Smoking Status: Unknown if Ever Smoked Electronic Cigarette use?: No Frequency of Alcohol Use: None Hx Recreational Drug Use: No Drugs: None Hx Prescription Drug Abuse: No - Advance Directive Resuscitation Status: Full Code Family History Family History: None, DM, Malignancy - Brother with Hodgkin's lymphoma. Maternal grandfather with lung cancer., Other - sickle trait in Mother and Father Parental Family History Reviewed: Yes Children Family History Reviewed: Yes Sibling(s) Family History Reviewed.: Yes Medication/Allergy Home Medications: Folic Acid 5 mg PO DAILY 07/11/19 Oxycodone HCl 15 mg PO Q3HP PRN 07/11/19 No122/Iron/Folic Acid [ Multi Tablet] 1 each PO DAILY 07/20/19 Allergies/Adverse Reactions: ceftriaxone sodium [From Rocephin] Allergy (Verified 08/11/19 07:16) Cephalosporins Allergy (Verified 08/11/19 07:16) milk [Milk] Allergy (Verified 08/11/19 07:16) Shellfish * [Shellfish] Allergy (Verified 08/11/19 07:16) wheat [Wheat] Allergy (Verified 08/11/19 07:16) Review of Systems Constitutional: ABSENT: chills, fever(s), headache(s), weight gain, weight loss Eyes: ABSENT: visual disturbances Ears: ABSENT: hearing changes Cardiovascular: ABSENT: chest pain, dyspnea on exertion, edema, orthropnea, palpitations Respiratory: ABSENT: cough, hemoptysis Gastrointestinal: ABSENT: abdominal pain, constipation, diarrhea, hematemesis, hematochezia, nausea, vomiting Genitourinary: ABSENT: dysuria, hematuria Musculoskeletal: ABSENT: joint swelling Integumentary: ABSENT: rash, wounds Neurological: ABSENT: abnormal gait, abnormal speech, confusion, dizziness, focal weakness, syncope Psychiatric: ABSENT: anxiety, depression, homidical ideation, suicidal ideation Endocrine: ABSENT: cold intolerance, heat intolerance, polydipsia, polyuria Hematologic/Lymphatic: ABSENT: easy bleeding, easy bruising Physical Exam Vital Signs: Temp Pulse Resp BP Pulse Ox 98.1 F 58 L 20 134/83 H 95 08/12/19 07:24 08/12/19 07:24 08/12/19 07:24 08/12/19 07:24 08/12/19 07:24 Intake & Output 08/11/19 08/12/19 08/13/19 06:59 06:59 06:59 Intake Total 1000 1436 Output Total 1750 Balance 1000 -314 Weight 66.224 kg 65.7 kg General appearance: PRESENT: no acute distress, well-developed, well-nourished Head exam: PRESENT: atraumatic, normocephalic Eye exam: PRESENT: conjunctiva pink, EOMI, PERRLA. ABSENT: scleral icterus Ear exam: PRESENT: normal external ear exam Mouth exam: PRESENT: moist, tongue midline Neck exam: ABSENT: carotid bruit, JVD, lymphadenopathy, thyromegaly Respiratory exam: PRESENT: clear to auscultation william. ABSENT: rales, rhonchi, wheezes Cardiovascular exam: PRESENT: RRR. ABSENT: diastolic murmur, rubs, systolic murmur Pulses: PRESENT: normal dorsalis pedis pul Vascular exam: PRESENT: normal capillary refill GI/Abdominal exam: PRESENT: normal bowel sounds, soft. ABSENT: distended, guarding, mass, organolmegaly, rebound, tenderness Rectal exam: PRESENT: deferred Extremities exam: PRESENT: full ROM. ABSENT: calf tenderness, clubbing, pedal edema Neurological exam: PRESENT: alert, awake, oriented to person, oriented to place, oriented to time, oriented to situation, CN II-XII grossly intact. ABSENT: motor sensory deficit Psychiatric exam: PRESENT: appropriate affect, normal mood. ABSENT: homicidal ideation, suicidal ideation Skin exam: PRESENT: dry, intact, warm. ABSENT: cyanosis, rash Results Laboratory Results: 08/12/19 06:10 08/11/19 08/11/19 08/11/19 06:18 06:18 10:05 Seg Neutrophils % Sodium Potassium Chloride Carbon Dioxide Anion Gap BUN Creatinine Est GFR ( Amer) Glucose Calcium Iron 171.4 H TIBC 217 L % Saturation 79 Ferritin Cancelled 3440.00 H Total Bilirubin AST Alkaline Phosphatase Total Protein Albumin Vitamin B12 383.0 Folate Cancelled > 20.00 Blood Type O POSITIVE Antibody Screen NEGATIVE 08/12/19 08/12/19 06:10 06:10 Seg Neutrophils % Not Reportable Sodium 139.2 Potassium 3.8 Chloride 111 H Carbon Dioxide 21 L Anion Gap 7 BUN 3 L Creatinine 0.42 L Est GFR ( Amer) > 60 Glucose 72 L Calcium 7.7 L Iron TIBC % Saturation Ferritin Total Bilirubin 1.9 H AST 45 H Alkaline Phosphatase 51 Total Protein 5.6 L Albumin 2.9 L Vitamin B12 Folate Blood Type Antibody Screen Impressions: Chest X-Ray 08/11/19 00:00 IMPRESSION: Subsegmental atelectasis and possible infiltrate along the posteromedial left lung base and discoid atelectasis in the lingula inferolaterally. Mild cardiomegaly. Assessment & Plan - Diagnosis (1) Sickle cell pain crisis Is this a current diagnosis for this admission?: Yes Plan: Sickle cell disease with pain crisis, will increase Dilaudid to 3 mg every 2 hours. Awaiting what blood bank finds out from [facility], if the Red cell phenotype is similar to what we obtained we will go ahead and transfuse the units planned. Agree with transfer when bed becomes available because she may even benefit on exchange transfusion on this admission, which could not be done locally. 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 Hemolytic anemia type: other hemoglobinopathy Qualified Code(s): D58.2 - Other hemoglobinopathies Is this a current diagnosis for this admission?: Yes Plan: Anemia secondary to sickle cell crisis, transfusion plan as above - Time Time Spent: Greater than 70 Minutes - Inpatient Certification Based on my medical assessment, after consideration of the patient's comorbidities, presenting symptoms, or acuity I expect that the services needed warrant INPATIENT care.: Yes I certify that my determination is in accordance with my understanding of Medicare's requirements for reasonable and necessary INPATIENT services [42 CFR 412.3e].: Yes Medical Necessity: Need For IV Fluids, Need for Pain Control, Risk of Complication if Not Cared For in Hospital
[2019-08-12] MEDS: DIPHENHYDRAMINE HCL 50 MG/ML VIAL IV PRN ×2 (08:35→17:37)
[2019-08-12] MEDS: FOLIC ACID 1 MG TABLET PO SCH (09:04)
[2019-08-12] MEDS: PSYLLIUM SEED-SF 5.85 GM PACKET PO SCH (09:05)
[2019-08-12] MEDS: DOCUSATE SODIUM 100 MG CAPSULE PO SCH ×2 (09:05→17:34)
[2019-08-12] MEDS: ONDANSETRON HCL INJ/PF 4 MG/2 ML SDV IV PRN (10:41)
--- NOTE | 2019-08-12 10:59 | PDOC PROGRESS REPORT ---
Subjective Progress Note for:: 08/12/19 Subjective:: Patient is waiting on being transferred. She denies any chest pain or abdominal pain Reason For Visit: SICKLE CELL PAIN Physical Exam Vital Signs: Temp Pulse Resp BP Pulse Ox 98.1 F 58 L 20 134/83 H 95 08/12/19 07:24 08/12/19 07:24 08/12/19 07:24 08/12/19 07:24 08/12/19 07:24 Intake & Output 08/11/19 08/12/19 08/13/19 06:59 06:59 06:59 Intake Total 1000 1436 Output Total 1750 Balance 1000 -314 Weight 66.224 kg 65.7 kg General appearance: PRESENT: no acute distress, well-developed, well-nourished Head exam: PRESENT: atraumatic, normocephalic Eye exam: PRESENT: EOMI, PERRLA. ABSENT: scleral icterus Mouth exam: PRESENT: moist, tongue midline Neck exam: ABSENT: carotid bruit, JVD, lymphadenopathy, thyromegaly Respiratory exam: PRESENT: clear to auscultation william. ABSENT: rales, rhonchi, wheezes Cardiovascular exam: PRESENT: RRR. ABSENT: diastolic murmur, rubs, systolic murmur Pulses: PRESENT: normal dorsalis pedis pul Vascular exam: PRESENT: normal capillary refill GI/Abdominal exam: PRESENT: normal bowel sounds, soft. ABSENT: distended, guarding, mass, organolmegaly, rebound, tenderness Rectal exam: PRESENT: deferred Extremities exam: PRESENT: full ROM. ABSENT: calf tenderness, clubbing, pedal edema Musculoskeletal exam: PRESENT: ambulatory Neurological exam: PRESENT: alert, awake, oriented to person, oriented to place, oriented to time, oriented to situation, CN II-XII grossly intact. ABSENT: motor sensory deficit Psychiatric exam: PRESENT: appropriate affect, normal mood. ABSENT: homicidal ideation, suicidal ideation Skin exam: PRESENT: dry, intact, warm. ABSENT: cyanosis, rash Results Laboratory Results: 08/12/19 06:10 08/12/19 06:10 08/11/19 08/11/19 08/11/19 06:18 06:18 10:05 WBC RBC Hgb Hct MCV MCH MCHC RDW Plt Count Seg Neutrophils % Sodium Potassium Chloride Carbon Dioxide Anion Gap BUN Creatinine Est GFR ( Amer) Glucose Calcium Iron 171.4 H TIBC 217 L % Saturation 79 Ferritin Cancelled 3440.00 H Total Bilirubin AST Alkaline Phosphatase Total Protein Albumin Vitamin B12 383.0 Folate Cancelled > 20.00 Blood Type O POSITIVE Antibody Screen NEGATIVE 08/12/19 08/12/19 06:10 06:10 WBC 8.5 RBC 1.99 L Hgb 6.6 L Hct 18.7 L MCV 94 MCH 33.1 MCHC 35.2 RDW 25.7 H Plt Count 206 Seg Neutrophils % Not Reportable Sodium 139.2 Potassium 3.8 Chloride 111 H Carbon Dioxide 21 L Anion Gap 7 BUN 3 L Creatinine 0.42 L Est GFR ( Amer) > 60 Glucose 72 L Calcium 7.7 L Iron TIBC % Saturation Ferritin Total Bilirubin 1.9 H AST 45 H Alkaline Phosphatase 51 Total Protein 5.6 L Albumin 2.9 L Vitamin B12 Folate Blood Type Antibody Screen Impressions: Chest X-Ray 08/11/19 00:00 IMPRESSION: Subsegmental atelectasis and possible infiltrate along the posteromedial left lung base and discoid atelectasis in the lingula inferolaterally. Mild cardiomegaly. Assessment and Plan - Diagnosis (1) 19 weeks gestation of Is this a current diagnosis for this admission?: Yes (2) Sickle cell anemia Qualifiers: Sickle-cell associated disorders: with unspecified crisis Qualified Code(s): D57.00 - Hb-SS disease with crisis, unspecified; D57.0 - Hb-SS disease with crisis Is this a current diagnosis for this admission?: Yes Plan: Sickle cell crisis. Patient has been seen by footwear stitcher. She is currently awaiting transfer to [facility]. She will be transfused if appropriate Red cell phenotype is available. (3) Acute on chronic anemia Is this a current diagnosis for this admission?: Yes (4) Chronic prescription opiate use Is this a current diagnosis for this admission?: Yes Plan: Patient does not take Dilaudid as an outpatient but will continue outpatient oxycodone 15 twice daily. With p.o. Dilaudid as needed breakthrough pain - Time Time Spent with patient: 25-34 minutes Medications reviewed and adjusted accordingly: Yes Anticipated discharge: [facility] Within: when bed available
[2019-08-13] MEDS: DIPHENHYDRAMINE HCL 50 MG/ML VIAL IV PRN ×5 (00:16→21:35)
[2019-08-13] MEDS: ONDANSETRON HCL INJ/PF 4 MG/2 ML SDV IV PRN ×3 (00:16→17:12)
[2019-08-13] MEDS: HYDROMORPHONE HCL INJ/PF 2 MG/ML AMPULE IV PRN ×12 (00:16→23:34)
[2019-08-13] MEDS: HEPARIN SOD (PORCINE) 5,000 UNIT/ML 1 ML VIAL SUBCUT SCH ×4 (06:33→21:46)
[2019-08-13 07:21] LABS: HEMATOCRIT 21.6 % (36.0-47.0); MEAN CORPUSCULAR HGB CONC 34.8 g/dL (32.0-36.0); MEAN CORPUSCULAR VOLUME 95 fl (80-97); PLATELET COUNT 230 10^3/uL (150-450); RED BLOOD COUNT 2.27 10^6/uL (3.72-5.28); RED CELL DISTRIBUTION WIDTH 28.2 % (11.5-14.0)
[2019-08-13 08:23] LABS: ABSOLUTE LYMPHOCYTES# (MANUAL) 3.6 10^3/uL (0.5-4.7); ABSOLUTE MONOCYTES # (MANUAL) 0.6 10^3/uL (0.1-1.4); BASOPHILS % (MANUAL) 0 % (0-2); EOSINOPHILS % (MANUAL) 0 % (0-6); LYMPHOCYTES % (MANUAL) 37 % (13-45); METAMYELOCYTES % (MANUAL) 1 % (0-1); MONOCYTES % (MANUAL) 6 % (3-13); NUCLEATED RED BLOOD CELLS 128 /100 WBC (0); SEGMENTED NEUTROPHILS % (MAN) 56 % (42-78); TOTAL CELLS COUNTED 100
--- NOTE | 2019-08-13 08:29 | PDOC PROGRESS REPORT ---
Subjective Progress Note for:: 08/13/19 Subjective:: Patient states that she is in a lot of pain. She does not understand why she did not receive a blood transfusion yesterday or IV fluids. She states that IV fluids always make her feel better. She denies cramping and contractions. She reports some flutters. Reason For Visit: SICKLE CELL PAIN Physical Exam - Physical Exam Vital Signs: Temp Pulse Resp BP Pulse Ox 98.1 F 64 16 153/72 H 98 08/12/19 22:58 08/13/19 02:00 08/12/19 22:58 08/12/19 22:58 08/12/19 22:58 Intake & Output 08/12/19 08/13/19 08/14/19 06:59 06:59 06:59 Intake Total 1436 1180 Output Total 1750 775 Balance -314 405 Weight 65.7 kg 69.3 kg General appearance: PRESENT: no acute distress Respiratory exam: PRESENT: clear to auscultation william Cardiovascular exam: PRESENT: RRR GI/Abdominal exam: PRESENT: normal bowel sounds, soft Extremities exam: ABSENT: calf tenderness, clubbing, full ROM, joint swelling, pedal edema, tenderness, +1 edema, +2 edema, other Result Laboratory Results: 08/12/19 06:10 08/10/19 20:15 Clean Catch Midstream Urine Culture - Final Mixed Urogenital Kassie Impressions: Chest X-Ray 08/11/19 00:00 IMPRESSION: Subsegmental atelectasis and possible infiltrate along the posteromedial left lung base and discoid atelectasis in the lingula inferolaterally. Mild cardiomegaly. Assessment & Plan - Diagnosis (1) 20 weeks gestation of Is this a current diagnosis for this admission?: Yes (2) Sickle cell anemia with pain Is this a current diagnosis for this admission?: Yes (3) Sickle cell pain crisis Is this a current diagnosis for this admission?: Yes (4) URI (upper respiratory infection) Qualifiers: URI type: unspecified URI Qualified Code(s): J06.9 - Acute upper respiratory infection, unspecified Is this a current diagnosis for this admission?: Yes - Time Time Spent with patient: 15-24 minutes - Plan Summary Plan Summary: 1. Will order LAVERNE hose and SCDs 2. Dopple FHTs q shift
[2019-08-13] MEDS ORDERED: ACETAMINOPHEN 325 MG TABLET PO PRN (08:30)
[2019-08-13] MEDS ORDERED: DIPHENHYDRAMINE HCL 50 MG/ML VIAL IV PRN (08:30)
[2019-08-13 08:32] LABS: POLYCHROMASIA 2+
[2019-08-13 08:33] LABS: ANISOCYTOSIS 4+; HOWELL-JOLLY BODIES PRESENT; PAPPENHEIMER BODIES PRESENT; PLATELET COMMENT ADEQUATE; POIKILOCYTOSIS 2+; SCHISTOCYTES SLIGHT; SICKLE RED CELLS 2+; TARGET CELLS SLIGHT; WHITE BLOOD COUNT 9.2 10^3/uL (4.0-10.5)
[2019-08-13 08:35] LABS: HEMOGLOBIN 7.5 g/dL (12.0-15.5)
--- NOTE | 2019-08-13 08:48 | PDOC PROGRESS REPORT ---
Subjective Progress Note for:: 08/13/19 Subjective:: Patient still in significant pain, discussed next steps of care. Plan for increasing Dilaudid today, increase in Benadryl, we will transfuse packed red blood cell. There was some concern of transfusion reaction invited when she went in July, we had blood bank check records from [facility] and check records from [facility]. There was no true transfusion reaction. And the phenotype was similar with all of the blood typing done in each place. So we feel comfortable to transfuse today. In addition IV access is failing as usual, plan for PICC line placement. Patient also likes to have teds and SCDs so we will place that. Reason For Visit: SICKLE CELL PAIN Physical Exam Vital Signs: Temp Pulse Resp BP Pulse Ox 98.3 F 61 17 129/91 H 97 08/13/19 07:15 08/13/19 07:15 08/13/19 07:15 08/13/19 07:15 08/13/19 07:15 Intake & Output 08/12/19 08/13/19 08/14/19 06:59 06:59 06:59 Intake Total 1436 1180 Output Total 1750 775 Balance -314 405 Weight 65.7 kg 69.3 kg General appearance: PRESENT: no acute distress, well-developed, well-nourished Head exam: PRESENT: atraumatic, normocephalic Eye exam: PRESENT: conjunctiva pink, EOMI, PERRLA. ABSENT: scleral icterus Ear exam: PRESENT: normal external ear exam Mouth exam: PRESENT: moist, tongue midline Neck exam: ABSENT: carotid bruit, JVD, lymphadenopathy, thyromegaly Respiratory exam: PRESENT: clear to auscultation william. ABSENT: rales, rhonchi, wheezes Cardiovascular exam: PRESENT: RRR. ABSENT: diastolic murmur, rubs, systolic murmur Pulses: PRESENT: normal dorsalis pedis pul Vascular exam: PRESENT: normal capillary refill GI/Abdominal exam: PRESENT: normal bowel sounds, soft. ABSENT: distended, guarding, mass, organolmegaly, rebound, tenderness Rectal exam: PRESENT: deferred Extremities exam: PRESENT: full ROM. ABSENT: calf tenderness, clubbing, pedal edema Neurological exam: PRESENT: alert, awake, oriented to person, oriented to place, oriented to time, oriented to situation, CN II-XII grossly intact. ABSENT: motor sensory deficit Psychiatric exam: PRESENT: appropriate affect, normal mood. ABSENT: homicidal ideation, suicidal ideation Skin exam: PRESENT: dry, intact, warm. ABSENT: cyanosis, rash Results Laboratory Results: 08/13/19 06:57 08/12/19 06:10 08/13/19 06:57 WBC 9.2 RBC 2.27 L Hgb 7.5 L Hct 21.6 L MCV 95 MCH 33.0 MCHC 34.8 RDW 28.2 H Plt Count 230 Seg Neutrophils % Not Reportable 08/10/19 20:15 Clean Catch Midstream Urine Culture - Final Mixed Urogenital Kassie Impressions: Chest X-Ray 08/11/19 00:00 IMPRESSION: Subsegmental atelectasis and possible infiltrate along the posteromedial left lung base and discoid atelectasis in the lingula inferolaterally. Mild cardiomegaly. Status: Image reviewed by me - A letter no leg brace is probably still holding again has not Assessment & Plan - Diagnosis (1) Sickle cell pain crisis Is this a current diagnosis for this admission?: Yes Plan: Increase Dilaudid, place PICC line, place teds and SCDs, start IV fluids at 100 cc/h. Transfuse 2 units of packed red blood cell, saw that hemoglobin is 7.5 but her pain crisis is very severe and I think she would benefit from simple transfusion. 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
[2019-08-13] MEDS: DOCUSATE SODIUM 100 MG CAPSULE PO SCH ×2 (09:05→17:11)
[2019-08-13] MEDS: PSYLLIUM SEED-SF 5.85 GM PACKET PO SCH (09:05)
[2019-08-13] MEDS: NORMAL SALINE 1000 ML 1,000 ML IV PRN ×2 (09:05→23:36)
[2019-08-13] MEDS: FOLIC ACID 1 MG TABLET PO SCH (09:06)
--- NOTE | 2019-08-13 10:43 | RADIOLOGY REPORT (SQ) ---
EXAM DESCRIPTION: PICC INSERTION; FLUORO/CV PLACEMENT; U/S GUIDE FOR VASCULAR ACCESS COMPLETED DATE/TIME: 08/13/2019 10:34 am REASON FOR STUDY: IV ACCESS COMPARISON: Chest films 08/12/2019, 08/08/2019, 08/01/2019 FLUOROSCOPY TIME: Less than 2 seconds Digital fluoroscopic chest image, left upper extremity ultrasound images saved to PACS. TECHNIQUE: Fluoroscopic and ultrasound guided PICC placement. LIMITATIONS: None. PROCEDURE: After written consent and assessment were obtained, the patient was brought into the fluo roscopy room and placed supine on the table. Ultrasound evaluation of potential access sites were per formed. After successfully identifying a patent left basilic vein, the left arm was prepped and drape d in a sterile fashion along with the ultrasound probe. The entry site was anesthetized with 1% lidoc petra. A 21 gauge 7 cm needle was advanced through the skin and into the basilic vein under live ultra sound guidance. An ultrasound image was saved to PACS confirming access site. A .018 guide wire was then inserted through the needle and into the venous system. The needle was then removed and an 11 b lade scalpel was used to make a 1cm skin incision. A 5 fr peel-away sheath was advanced over the wir e and into the venous system. A measurement was then made using the existing wire and live fluoroscop ic guidance. The wire was then removed and trimmed. The PICC was advanced through the peel-away sheat h and into the venous system. The peel-away sheath was removed and the catheter was adhered to the pa tients arm with a stat lock. The catheter was then aspirated and flushed and a sterile bandage was pl aced over the access site. A fluoroscopic spot image was saved to PACS confirming the catheter tip w ithin the superior vena cava. IMPRESSION: SUCCESSFUL PLACEMENT OF A 5 FR DUAL LUMEN 36 CM PICC IN THE LEFT BASILIC VEIN. COMMENT: Patient medication list reviewed: Yes- Quality ID# 130:Eligible professional attests to doc umenting in the medical record they obtained, updated, or reviewed the patient's current medications. . Quality ID 145: Final reports for procedures using fluoroscopy that document radiation exposure rebecca angy, or exposure time and number of fluorographic images (if radiation exposure indices are not avail able) Quality ID #76: The patient was prepped and draped using maximum sterile barrier technique including cap, mask, sterile gown, sterile gloves, a large sterile sheet, hand hygiene, and 2% Chlorhexidine fo r cutaneous antisepsis. When ultrasound is used, sterile ultrasound techniques are followed requiring sterile gel and sterile probes. TECHNICAL DOCUMENTATION: JOB ID: [id number] [employer]- All Rights Reserved rev-11/22 Reading location - IP/workstation name: [email or web address]
[2019-08-13] MEDS ORDERED: NORMAL SALINE 10 ML SDV (AFTER EACH USE) IV PRN (13:00)
--- NOTE | 2019-08-13 13:59 | PDOC PROGRESS REPORT ---
Subjective Progress Note for:: 08/13/19 Subjective:: Patient is still waiting on being transferred. She denies any chest pain or abdominal pain PICC line was placed today for blood transfusion Reason For Visit: SICKLE CELL PAIN Physical Exam Vital Signs: Temp Pulse Resp BP Pulse Ox 97.8 F 57 L 17 132/77 H 100 08/13/19 13:33 08/13/19 13:33 08/13/19 13:33 08/13/19 13:33 08/13/19 13:33 Intake & Output 08/12/19 08/13/19 08/14/19 06:59 06:59 06:59 Intake Total 1436 1180 135 Output Total 1750 775 Balance -314 405 135 Weight 65.7 kg 69.3 kg General appearance: PRESENT: no acute distress, well-developed, well-nourished Head exam: PRESENT: atraumatic, normocephalic Eye exam: PRESENT: conjunctiva pale, EOMI, PERRLA. ABSENT: scleral icterus Mouth exam: PRESENT: tongue midline Neck exam: ABSENT: carotid bruit, JVD, lymphadenopathy, thyromegaly Respiratory exam: PRESENT: clear to auscultation william. ABSENT: rales, rhonchi, wheezes Cardiovascular exam: PRESENT: RRR. ABSENT: diastolic murmur, rubs, systolic murmur Pulses: PRESENT: normal dorsalis pedis pul Vascular exam: PRESENT: normal capillary refill GI/Abdominal exam: PRESENT: normal bowel sounds, soft, other - . ABSENT: distended, guarding, mass, organolmegaly, rebound, tenderness Rectal exam: PRESENT: deferred Extremities exam: PRESENT: full ROM. ABSENT: calf tenderness, clubbing, pedal edema Neurological exam: PRESENT: alert, awake, oriented to person, oriented to place, oriented to time, oriented to situation, CN II-XII grossly intact. ABSENT: motor sensory deficit Psychiatric exam: PRESENT: appropriate affect, normal mood. ABSENT: homicidal ideation, suicidal ideation Skin exam: PRESENT: dry, intact, warm. ABSENT: cyanosis, rash Results Laboratory Results: 08/13/19 06:57 08/12/19 06:10 08/11/19 08/13/19 10:05 06:57 WBC 9.2 RBC 2.27 L Hgb 7.5 L Hct 21.6 L MCV 95 MCH 33.0 MCHC 34.8 RDW 28.2 H Plt Count 230 Seg Neutrophils % Not Reportable Blood Type O POSITIVE Antibody Screen NEGATIVE 08/10/19 20:15 Clean Catch Midstream Urine Culture - Final Mixed Urogenital Kassie Impressions: Chest X-Ray 08/11/19 00:00 IMPRESSION: Subsegmental atelectasis and possible infiltrate along the posteromedial left lung base and discoid atelectasis in the lingula inferolaterally. Mild cardiomegaly. Guidance Fluoroscopy 08/13/19 00:00 IMPRESSION: SUCCESSFUL PLACEMENT OF A 5 FR DUAL LUMEN 36 CM PICC IN THE LEFT BASILIC VEIN. Interventional Vascular Procedure 08/13/19 00:00 IMPRESSION: SUCCESSFUL PLACEMENT OF A 5 FR DUAL LUMEN 36 CM PICC IN THE LEFT BASILIC VEIN. PICC Line Insertion 08/13/19 09:12 IMPRESSION: SUCCESSFUL PLACEMENT OF A 5 FR DUAL LUMEN 36 CM PICC IN THE LEFT BASILIC VEIN. Assessment and Plan - Diagnosis (1) 19 weeks gestation of Is this a current diagnosis for this admission?: Yes Plan: Still awaiting transfer to [facility]. Patient is to be transferred once bed is available (2) Sickle cell anemia Qualifiers: Sickle-cell associated disorders: with unspecified crisis Qualified Code(s): D57.00 - Hb-SS disease with crisis, unspecified; D57.0 - Hb-SS disease with crisis Is this a current diagnosis for this admission?: Yes Plan: Plan is for blood transfusion today as per riffler tender. Hemoglobin is 7.5 (3) Acute on chronic anemia Is this a current diagnosis for this admission?: Yes (4) Chronic prescription opiate use Is this a current diagnosis for this admission?: Yes Plan: Patient does not take Dilaudid as an outpatient but will continue outpatient oxycodone 15 twice daily. Dilaudid dose was increased by riffler tender - Time Time Spent with patient: 15-24 minutes Medications reviewed and adjusted accordingly: Yes Anticipated discharge: [facility]
[2019-08-13] MEDS: NORMAL SALINE 10 ML SDV (SCHEDULED) IV SCH (21:29)
[2019-08-14] MEDS: HYDROMORPHONE HCL INJ/PF 2 MG/ML AMPULE IV PRN ×10 (03:36→23:06)
[2019-08-14] MEDS: HEPARIN SOD (PORCINE) 5,000 UNIT/ML 1 ML VIAL SUBCUT SCH ×3 (05:16→21:32)
[2019-08-14] MEDS: DIPHENHYDRAMINE HCL 50 MG/ML VIAL IV PRN ×5 (05:38→23:06)
[2019-08-14] MEDS: DOCUSATE SODIUM 100 MG CAPSULE PO SCH ×2 (09:16→17:05)
[2019-08-14] MEDS: FOLIC ACID 1 MG TABLET PO SCH (09:16)
[2019-08-14] MEDS: NORMAL SALINE 10 ML SDV (SCHEDULED) IV SCH ×2 (09:17→21:33)
[2019-08-14] MEDS: PSYLLIUM SEED-SF 5.85 GM PACKET PO SCH (09:17)
--- NOTE | 2019-08-14 09:26 | PDOC PROGRESS REPORT ---
Subjective Progress Note for:: 08/14/19 Subjective:: Still unfortunately with severe pain, tearful this morning, plan to increase Dilaudid Reason For Visit: SICKLE CELL PAIN Physical Exam Vital Signs: Temp Pulse Resp BP Pulse Ox 98.1 F 60 20 152/93 H 97 08/14/19 08:05 08/14/19 08:05 08/14/19 08:05 08/14/19 08:05 08/14/19 08:05 Intake & Output 08/13/19 08/14/19 08/15/19 06:59 06:59 06:59 Intake Total 1180 3050 Output Total 775 1300 Balance 405 1750 Weight 69.3 kg 72 kg General appearance: PRESENT: no acute distress, well-developed, well-nourished Head exam: PRESENT: atraumatic, normocephalic Eye exam: PRESENT: conjunctiva pink, EOMI, PERRLA. ABSENT: scleral icterus Ear exam: PRESENT: normal external ear exam Mouth exam: PRESENT: moist, tongue midline Neck exam: ABSENT: carotid bruit, JVD, lymphadenopathy, thyromegaly Respiratory exam: PRESENT: clear to auscultation william. ABSENT: rales, rhonchi, wheezes Cardiovascular exam: PRESENT: RRR. ABSENT: diastolic murmur, rubs, systolic murmur Pulses: PRESENT: normal dorsalis pedis pul Vascular exam: PRESENT: normal capillary refill GI/Abdominal exam: PRESENT: normal bowel sounds, soft. ABSENT: distended, guarding, mass, organolmegaly, rebound, tenderness Rectal exam: PRESENT: deferred Extremities exam: PRESENT: full ROM. ABSENT: calf tenderness, clubbing, pedal edema Neurological exam: PRESENT: alert, awake, oriented to person, oriented to place, oriented to time, oriented to situation, CN II-XII grossly intact. ABSENT: motor sensory deficit Psychiatric exam: PRESENT: appropriate affect, normal mood. ABSENT: homicidal ideation, suicidal ideation Skin exam: PRESENT: dry, intact, warm. ABSENT: cyanosis, rash Results Laboratory Results: 08/11/19 10:05 Blood Type O POSITIVE Antibody Screen NEGATIVE Impressions: Chest X-Ray 08/11/19 00:00 IMPRESSION: Subsegmental atelectasis and possible infiltrate along the posteromedial left lung base and discoid atelectasis in the lingula inferolaterally. Mild cardiomegaly. Guidance Fluoroscopy 08/13/19 00:00 IMPRESSION: SUCCESSFUL PLACEMENT OF A 5 FR DUAL LUMEN 36 CM PICC IN THE LEFT BASILIC VEIN. Interventional Vascular Procedure 08/13/19 00:00 IMPRESSION: SUCCESSFUL PLACEMENT OF A 5 FR DUAL LUMEN 36 CM PICC IN THE LEFT BASILIC VEIN. PICC Line Insertion 08/13/19 09:12 IMPRESSION: SUCCESSFUL PLACEMENT OF A 5 FR DUAL LUMEN 36 CM PICC IN THE LEFT BASILIC VEIN. 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
[2019-08-14 09:36] LABS: HEMATOCRIT 27.2 % (36.0-47.0); MEAN CORPUSCULAR HEMOGLOBIN 32.8 pg (27.0-33.4); MEAN CORPUSCULAR HGB CONC 35.8 g/dL (32.0-36.0); MEAN CORPUSCULAR VOLUME 92 fl (80-97); PLATELET COUNT 230 10^3/uL (150-450); RED BLOOD COUNT 2.97 10^6/uL (3.72-5.28); RED CELL DISTRIBUTION WIDTH 25.1 % (11.5-14.0)
[2019-08-14 09:56] LABS: ANION GAP 9 (5-19); BLOOD UREA NITROGEN 3 mg/dL (7-20); CALCIUM 8.1 mg/dL (8.4-10.2); CARBON DIOXIDE 23 mmol/L (22-30); CHLORIDE 106 mmol/L (98-107); GLUCOSE 70 mg/dL (75-110); POTASSIUM 3.7 mmol/L (3.6-5.0)
[2019-08-14] MEDS ORDERED: HYDROMORPHONE HCL INJ/PF 2 MG/ML AMPULE IV ONE (10:00)
[2019-08-14 10:19] LABS: HEMOGLOBIN 9.7 g/dL (12.0-15.5)
[2019-08-14 10:21] LABS: WHITE BLOOD COUNT 9.4 10^3/uL (4.0-10.5)
[2019-08-14 10:25] LABS: ABSOLUTE LYMPHOCYTES# (MANUAL) 2.4 10^3/uL (0.5-4.7); ABSOLUTE MONOCYTES # (MANUAL) 0.7 10^3/uL (0.1-1.4); ANISOCYTOSIS 4+; BASOPHILS % (MANUAL) 0 % (0-2); EOSINOPHILS % (MANUAL) 0 % (0-6); LYMPHOCYTES % (MANUAL) 26 % (13-45); MONOCYTES % (MANUAL) 7 % (3-13); NUCLEATED RED BLOOD CELLS 87 /100 WBC (0); POIKILOCYTOSIS 2+; SEGMENTED NEUTROPHILS % (MAN) 67 % (42-78); TOTAL CELLS COUNTED 100
[2019-08-14 10:26] LABS: PLATELET COMMENT ADEQUATE; POLYCHROMASIA 2+; SICKLE RED CELLS 2+; TARGET CELLS SLIGHT
[2019-08-14] MEDS: NORMAL SALINE 1000 ML 1,000 ML IV PRN ×2 (12:34→21:07)
[2019-08-14 13:37] LABS: HGB A2 4.1 % (1.8-3.2); HGB F 6.9 % (0.0-2.0); HGB S 66.8 % (0.0); HGB SOLUBILITY RESULT Positive (Negative)
[2019-08-14] MEDS: ONDANSETRON HCL INJ/PF 4 MG/2 ML SDV IV PRN ×2 (14:43→23:06)
--- NOTE | 2019-08-14 17:33 | PDOC PROGRESS REPORT ---
Subjective Progress Note for:: 08/14/19 Subjective:: Patient is still waiting on being transferred. She denies any chest pain or abdominal pain Reason For Visit: SICKLE CELL PAIN Physical Exam Vital Signs: Temp Pulse Resp BP Pulse Ox 97.9 F 68 20 147/91 H 95 08/14/19 15:27 08/14/19 15:27 08/14/19 15:27 08/14/19 15:27 08/14/19 15:27 Intake & Output 08/13/19 08/14/19 08/15/19 06:59 06:59 06:59 Intake Total 1180 3050 1000 Output Total 775 1300 Balance 405 1750 1000 Weight 69.3 kg 72 kg General appearance: PRESENT: no acute distress, well-developed, well-nourished Head exam: PRESENT: atraumatic, normocephalic Eye exam: PRESENT: EOMI, PERRLA. ABSENT: scleral icterus Neck exam: ABSENT: carotid bruit, JVD, lymphadenopathy, thyromegaly Respiratory exam: PRESENT: clear to auscultation william. ABSENT: rales, rhonchi, wheezes Cardiovascular exam: PRESENT: RRR. ABSENT: diastolic murmur, rubs, systolic murmur Pulses: PRESENT: normal dorsalis pedis pul Vascular exam: PRESENT: normal capillary refill GI/Abdominal exam: PRESENT: normal bowel sounds, soft. ABSENT: distended, guarding, mass, organolmegaly, rebound, tenderness Rectal exam: PRESENT: deferred Extremities exam: PRESENT: full ROM. ABSENT: calf tenderness, clubbing, pedal edema Neurological exam: PRESENT: alert, awake, oriented to person, oriented to place, oriented to time, oriented to situation, CN II-XII grossly intact. ABSENT: motor sensory deficit Psychiatric exam: PRESENT: appropriate affect, normal mood. ABSENT: homicidal ideation, suicidal ideation Skin exam: PRESENT: dry, intact, warm. ABSENT: cyanosis, rash Results Laboratory Results: 08/14/19 09:00 08/14/19 09:00 08/14/19 08/14/19 09:00 09:00 WBC 9.4 RBC 2.97 L Hgb 9.7 L D Hct 27.2 L MCV 92 MCH 32.8 MCHC 35.8 RDW 25.1 H Plt Count 230 Seg Neutrophils % Not Reportable Sodium 137.5 Potassium 3.7 Chloride 106 Carbon Dioxide 23 Anion Gap 9 BUN 3 L Creatinine 0.40 L Est GFR ( Amer) > 60 Glucose 70 L Calcium 8.1 L Impressions: Chest X-Ray 08/11/19 00:00 IMPRESSION: Subsegmental atelectasis and possible infiltrate along the posteromedial left lung base and discoid atelectasis in the lingula inferolaterally. Mild cardiomegaly. Guidance Fluoroscopy 08/13/19 00:00 IMPRESSION: SUCCESSFUL PLACEMENT OF A 5 FR DUAL LUMEN 36 CM PICC IN THE LEFT BASILIC VEIN. Interventional Vascular Procedure 08/13/19 00:00 IMPRESSION: SUCCESSFUL PLACEMENT OF A 5 FR DUAL LUMEN 36 CM PICC IN THE LEFT BASILIC VEIN. PICC Line Insertion 08/13/19 09:12 IMPRESSION: SUCCESSFUL PLACEMENT OF A 5 FR DUAL LUMEN 36 CM PICC IN THE LEFT BASILIC VEIN. Assessment and Plan - Diagnosis (1) 19 weeks gestation of Is this a current diagnosis for this admission?: Yes Plan: Still awaiting transfer to [facility]. Patient is to be transferred once bed is available however will review if patient still needs to be transferred (2) Sickle cell anemia Qualifiers: Sickle-cell associated disorders: with unspecified crisis Qualified Code(s): D57.00 - Hb-SS disease with crisis, unspecified; D57.0 - Hb-SS disease with crisis Is this a current diagnosis for this admission?: Yes Plan: Status post packed red blood cell transfusion. Hemoglobin has risen up to 9.7 (3) Acute on chronic anemia Is this a current diagnosis for this admission?: Yes Plan: Secondary to sickle cell disease (4) Chronic prescription opiate use Is this a current diagnosis for this admission?: Yes Plan: Patient does not take Dilaudid as an outpatient but will continue outpatient oxycodone 15 twice daily. Dilaudid dose was increased by sex therapist - Time Time Spent with patient: 15-24 minutes [facility] when bed available
[2019-08-15] MEDS: HYDROMORPHONE HCL INJ/PF 2 MG/ML AMPULE IV PRN ×11 (01:06→22:59)
[2019-08-15] MEDS: DIPHENHYDRAMINE HCL 50 MG/ML VIAL IV PRN ×5 (03:15→20:35)
[2019-08-15] MEDS: HEPARIN SOD (PORCINE) 5,000 UNIT/ML 1 ML VIAL SUBCUT SCH ×3 (05:24→21:47)
--- NOTE | 2019-08-15 07:06 | PDOC PROGRESS REPORT ---
Subjective Progress Note for:: 08/14/19 Subjective:: Feels about the same. No cramping or vaginal bleeding. Some fluttering feelings Reason For Visit: SICKLE CELL PAIN Physical Exam - Physical Exam Vital Signs: Temp Pulse Resp BP Pulse Ox 98.1 F 65 18 153/94 H 96 08/14/19 23:13 08/15/19 02:00 08/14/19 23:13 08/14/19 23:13 08/14/19 23:13 Intake & Output 08/14/19 08/15/19 08/16/19 06:59 06:59 06:59 Intake Total 3050 4746 Output Total 1300 1550 Balance 1750 3196 Weight 72 kg 75.1 kg General appearance: PRESENT: no acute distress, cooperative Respiratory exam: PRESENT: clear to auscultation william Cardiovascular exam: PRESENT: RRR, +S1, +S2 GI/Abdominal exam: PRESENT: soft Extremities exam: PRESENT: full ROM. ABSENT: calf tenderness, clubbing, pedal edema Neurological exam: PRESENT: alert, awake, oriented to person, oriented to time, oriented to situation Result Laboratory Results: 08/14/19 09:00 08/14/19 09:00 08/14/19 08/14/19 09:00 09:00 WBC 9.4 RBC 2.97 L Hgb 9.7 L D Hct 27.2 L MCV 92 MCH 32.8 MCHC 35.8 RDW 25.1 H Plt Count 230 Seg Neutrophils % Not Reportable Sodium 137.5 Potassium 3.7 Chloride 106 Carbon Dioxide 23 Anion Gap 9 BUN 3 L Creatinine 0.40 L Est GFR ( Amer) > 60 Glucose 70 L Calcium 8.1 L Impressions: Chest X-Ray 08/11/19 00:00 IMPRESSION: Subsegmental atelectasis and possible infiltrate along the posteromedial left lung base and discoid atelectasis in the lingula inferolaterally. Mild cardiomegaly. Guidance Fluoroscopy 08/13/19 00:00 IMPRESSION: SUCCESSFUL PLACEMENT OF A 5 FR DUAL LUMEN 36 CM PICC IN THE LEFT BASILIC VEIN. Interventional Vascular Procedure 08/13/19 00:00 IMPRESSION: SUCCESSFUL PLACEMENT OF A 5 FR DUAL LUMEN 36 CM PICC IN THE LEFT BASILIC VEIN. PICC Line Insertion 08/13/19 09:12 IMPRESSION: SUCCESSFUL PLACEMENT OF A 5 FR DUAL LUMEN 36 CM PICC IN THE LEFT BASILIC VEIN. Assessment & Plan - Diagnosis (1) 20 weeks gestation of Is this a current diagnosis for this admission?: Yes Plan: Continue FHT daily PNV daily Encourage ambulation as able (2) Chest pain Is this a current diagnosis for this admission?: Yes (3) Cough Is this a current diagnosis for this admission?: Yes (4) Sickle cell anemia Qualifiers: Sickle-cell associated disorders: with unspecified crisis Qualified Code(s): D57.00 - Hb-SS disease with crisis, unspecified; D57.0 - Hb-SS disease with crisis Is this a current diagnosis for this admission?: Yes - Time Time Spent with patient: Less than 15 minutes
[2019-08-15] MEDS: ONDANSETRON HCL INJ/PF 4 MG/2 ML SDV IV PRN ×4 (07:21→20:35)
[2019-08-15] MEDS: NORMAL SALINE 1000 ML 1,000 ML IV PRN ×2 (07:31→16:51)
--- NOTE | 2019-08-15 09:32 | PDOC PROGRESS REPORT ---
Subjective Progress Note for:: 08/15/19 Subjective:: Patient feeling a little bit better but terms of pain, had a long discussion with her spent about 40 minutes in discussion Reason For Visit: SICKLE CELL PAIN Physical Exam Vital Signs: Temp Pulse Resp BP Pulse Ox 98.3 F 83 16 148/104 H 98 08/15/19 07:37 08/15/19 07:37 08/15/19 07:37 08/15/19 07:37 08/15/19 07:37 Intake & Output 08/14/19 08/15/19 08/16/19 06:59 06:59 06:59 Intake Total 3050 4746 1000 Output Total 1300 1550 Balance 1750 3196 1000 Weight 72 kg 75.1 kg General appearance: PRESENT: no acute distress, well-developed, well-nourished Head exam: PRESENT: atraumatic, normocephalic Eye exam: PRESENT: conjunctiva pink, EOMI, PERRLA. ABSENT: scleral icterus Ear exam: PRESENT: normal external ear exam Mouth exam: PRESENT: moist, tongue midline Neck exam: ABSENT: carotid bruit, JVD, lymphadenopathy, thyromegaly Respiratory exam: PRESENT: clear to auscultation william. ABSENT: rales, rhonchi, wheezes Cardiovascular exam: PRESENT: RRR. ABSENT: diastolic murmur, rubs, systolic murmur Pulses: PRESENT: normal dorsalis pedis pul Vascular exam: PRESENT: normal capillary refill GI/Abdominal exam: PRESENT: normal bowel sounds, soft. ABSENT: distended, guarding, mass, organolmegaly, rebound, tenderness Rectal exam: PRESENT: deferred Extremities exam: PRESENT: full ROM. ABSENT: calf tenderness, clubbing, pedal edema Neurological exam: PRESENT: alert, awake, oriented to person, oriented to place, oriented to time, oriented to situation, CN II-XII grossly intact. ABSENT: motor sensory deficit Psychiatric exam: PRESENT: appropriate affect, normal mood. ABSENT: homicidal ideation, suicidal ideation Skin exam: PRESENT: dry, intact, warm. ABSENT: cyanosis, rash Results Laboratory Results: 08/14/19 09:00 08/14/19 09:00 08/14/19 08/14/19 09:00 09:00 WBC 9.4 RBC 2.97 L Hgb 9.7 L D Hct 27.2 L MCV 92 MCH 32.8 MCHC 35.8 RDW 25.1 H Plt Count 230 Seg Neutrophils % Not Reportable Sodium 137.5 Potassium 3.7 Chloride 106 Carbon Dioxide 23 Anion Gap 9 BUN 3 L Creatinine 0.40 L Est GFR ( Amer) > 60 Glucose 70 L Calcium 8.1 L Impressions: Chest X-Ray 08/11/19 00:00 IMPRESSION: Subsegmental atelectasis and possible infiltrate along the posteromedial left lung base and discoid atelectasis in the lingula inferolaterally. Mild cardiomegaly. Guidance Fluoroscopy 08/13/19 00:00 IMPRESSION: SUCCESSFUL PLACEMENT OF A 5 FR DUAL LUMEN 36 CM PICC IN THE LEFT BASILIC VEIN. Interventional Vascular Procedure 08/13/19 00:00 IMPRESSION: SUCCESSFUL PLACEMENT OF A 5 FR DUAL LUMEN 36 CM PICC IN THE LEFT BASILIC VEIN. PICC Line Insertion 08/13/19 09:12 IMPRESSION: SUCCESSFUL PLACEMENT OF A 5 FR DUAL LUMEN 36 CM PICC IN THE LEFT BASILIC VEIN. 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
[2019-08-15] MEDS: FOLIC ACID 1 MG TABLET PO SCH (09:33)
[2019-08-15] MEDS: PSYLLIUM SEED-SF 5.85 GM PACKET PO SCH (09:33)
[2019-08-15] MEDS: DOCUSATE SODIUM 100 MG CAPSULE PO SCH ×2 (09:33→17:15)
[2019-08-15] MEDS: NORMAL SALINE 10 ML SDV (SCHEDULED) IV SCH ×2 (09:34→22:04)
--- NOTE | 2019-08-15 16:44 | PDOC PROGRESS REPORT ---
Subjective Progress Note for:: 08/15/19 Subjective:: Patient is still waiting on being transferred. States she is still in crisis, requesting Dilaudid every 2 hours Reason For Visit: SICKLE CELL PAIN Physical Exam Vital Signs: Temp Pulse Resp BP Pulse Ox 98.0 F 55 L 16 143/101 H 93 08/15/19 15:07 08/15/19 15:07 08/15/19 15:07 08/15/19 15:07 08/15/19 15:07 Intake & Output 08/14/19 08/15/19 08/16/19 06:59 06:59 06:59 Intake Total 3050 4746 1440 Output Total 1300 1550 700 Balance 1750 3196 740 Weight 72 kg 75.1 kg 75.1 kg General appearance: PRESENT: no acute distress, cooperative Head exam: PRESENT: atraumatic Neck exam: PRESENT: full ROM. ABSENT: JVD Respiratory exam: PRESENT: symmetrical, unlabored. ABSENT: chest wall tenderness Cardiovascular exam: PRESENT: RRR, +S1, +S2 GI/Abdominal exam: PRESENT: soft Rectal exam: PRESENT: deferred Results Laboratory Results: 08/14/19 09:00 08/14/19 09:00 Impressions: Chest X-Ray 08/11/19 00:00 IMPRESSION: Subsegmental atelectasis and possible infiltrate along the posteromedial left lung base and discoid atelectasis in the lingula inferolaterally. Mild cardiomegaly. Guidance Fluoroscopy 08/13/19 00:00 IMPRESSION: SUCCESSFUL PLACEMENT OF A 5 FR DUAL LUMEN 36 CM PICC IN THE LEFT BASILIC VEIN. Interventional Vascular Procedure 08/13/19 00:00 IMPRESSION: SUCCESSFUL PLACEMENT OF A 5 FR DUAL LUMEN 36 CM PICC IN THE LEFT BA SILIC VEIN. PICC Line Insertion 08/13/19 09:12 IMPRESSION: SUCCESSFUL PLACEMENT OF A 5 FR DUAL LUMEN 36 CM PICC IN THE LEFT BASILIC VEIN. Assessment and Plan - Diagnosis (1) 19 weeks gestation of Is this a current diagnosis for this admission?: Yes Plan: Still awaiting transfer to [facility]. Patient is to be transferred once bed is available. [facility] was called today and they confirm there is a delay but patient still on waiting list (2) Sickle cell anemia Qualifiers: Sickle-cell associated disorders: with unspecified crisis Qualified Code(s): D57.00 - Hb-SS disease with crisis, unspecified; D57.0 - Hb-SS disease with crisis Is this a current diagnosis for this admission?: Yes Plan: Status post packed red blood cell transfusion. Hemoglobin has risen up to 9.7 Recheck in am as well as Retic count (3) Acute on chronic anemia Is this a current diagnosis for this admission?: Yes Plan: Secondary to sickle cell disease (4) Chronic prescription opiate use Is this a current diagnosis for this admission?: Yes Plan: Patient requiring Dilaudid 2mg q2h
[2019-08-15] MEDS ORDERED: NA PHOS,M-B/NA PHOS,DI-BA (ADULT) 133 ML ENEMA PR PRN (17:24)
[2019-08-16] MEDS: HYDROMORPHONE HCL INJ/PF 2 MG/ML AMPULE IV PRN ×6 (01:19→11:39)
[2019-08-16] MEDS: DIPHENHYDRAMINE HCL 50 MG/ML VIAL IV PRN ×3 (01:20→09:38)
[2019-08-16] MEDS: ONDANSETRON HCL INJ/PF 4 MG/2 ML SDV IV PRN ×3 (01:21→09:38)
[2019-08-16] MEDS: NORMAL SALINE 1000 ML 1,000 ML IV PRN ×2 (01:21→11:39)
[2019-08-16] MEDS: HEPARIN SOD (PORCINE) 5,000 UNIT/ML 1 ML VIAL SUBCUT SCH (05:03)
[2019-08-16 07:15] LABS: ABSOLUTE RETICS # 0.111 10^6/uL (0.028-0.122); HEMATOCRIT 25.5 % (36.0-47.0); MEAN CORPUSCULAR HGB CONC 35.5 g/dL (32.0-36.0); MEAN CORPUSCULAR VOLUME 90 fl (80-97); PLATELET COUNT 222 10^3/uL (150-450); RED BLOOD COUNT 2.82 10^6/uL (3.72-5.28); RED CELL DISTRIBUTION WIDTH 22.6 % (11.5-14.0); RETICULOCYTE COUNT (AUTO) 3.93 % (0.66-2.85); WHITE BLOOD COUNT 6.7 10^3/uL (4.0-10.5)
[2019-08-16 07:25] LABS: ANION GAP 7 (5-19); BLOOD UREA NITROGEN 4 mg/dL (7-20); CALCIUM 7.9 mg/dL (8.4-10.2); CARBON DIOXIDE 22 mmol/L (22-30); CHLORIDE 109 mmol/L (98-107); POTASSIUM 3.7 mmol/L (3.6-5.0)
[2019-08-16 07:33] LABS: GLUCOSE 63 mg/dL (75-110)
[2019-08-16 07:43] LABS: ABSOLUTE LYMPHOCYTES# (MANUAL) 2.5 10^3/uL (0.5-4.7); ABSOLUTE MONOCYTES # (MANUAL) 0.9 10^3/uL (0.1-1.4); BASOPHILS % (MANUAL) 0 % (0-2); EOSINOPHILS % (MANUAL) 1 % (0-6); LYMPHOCYTES % (MANUAL) 37 % (13-45); METAMYELOCYTES % (MANUAL) 1 % (0-1); MONOCYTES % (MANUAL) 14 % (3-13); NUCLEATED RED BLOOD CELLS 30 /100 WBC (0); SEGMENTED NEUTROPHILS % (MAN) 47 % (42-78); TOTAL CELLS COUNTED 100
[2019-08-16 07:46] LABS: ANISOCYTOSIS 3+; POIKILOCYTOSIS 3+; POLYCHROMASIA 1+; SICKLE RED CELLS 2+; TARGET CELLS 1+
[2019-08-16 07:47] LABS: HOWELL-JOLLY BODIES PRESENT; PLATELET COMMENT ADEQUATE
[2019-08-16 08:23] VITALS: BP 143/82
[2019-08-16] MEDS ORDERED: DEXTROSE 5%-NORMAL SALINE 1,000 ML IV PRN (09:26)
[2019-08-16] MEDS: NORMAL SALINE 10 ML SDV (SCHEDULED) IV SCH (09:39)
[2019-08-16] MEDS: DOCUSATE SODIUM 100 MG CAPSULE PO SCH (09:39)
[2019-08-16] MEDS: FOLIC ACID 1 MG TABLET PO SCH (09:39)
[2019-08-16] MEDS: PSYLLIUM SEED-SF 5.85 GM PACKET PO SCH (09:40)
[2019-08-16] MEDS ORDERED: MINERAL OIL ENEMA 133 ML PR ONE (11:00)
--- NOTE | 2019-08-16 11:22 | PDOC TRANSFER SUMMARY ---
General Admission Date/PCP: 08/10/19 19:47 AMALIA OROZCO PA-C Admission Date: 08/10/19 Transfer Date: 08/11/19 Accepting Facility: [facility] Accepting Physician: Dr. Handley. Resuscitation Status: Full Code - Transfer Diagnosis (1) Sickle cell anemia Is this a current diagnosis for this admission?: Yes (2) Acute on chronic anemia Is this a current diagnosis for this admission?: Yes (3) Chronic prescription opiate use Is this a current diagnosis for this admission?: Yes (4) 20 weeks gestation of Is this a current diagnosis for this admission?: Yes - Transfer Medications Home Medications: Folic Acid 5 mg PO DAILY 07/11/19 Oxycodone HCl 15 mg PO Q3HP PRN 07/11/19 No122/Iron/Folic Acid [ Multi Tablet] 1 each PO DAILY 07/20/19 Transfer Medications: Current Medications Acetaminophen (Tylenol 325 Mg Tablet) 650 mg PO Q4HP PRN PRN Reason: FOR PAIN OR TEMP Stop: 09/09/19 21:02 Al Hydrox/Mg Hydrox/Simethicone (Maalox Plus Susp 30 Udcup) 30 ml PO Q6HP PRN PRN Reason: HEARTBURN Stop: 09/09/19 21:02 Albuterol/Ipratropium (Duoneb 3 Ml Ampul) 3 ml NEB [id number] PRN PRN Reason: SHORTNESS OF BREATH Stop: 09/09/19 21:02 Diphenhydramine HCl (Benadryl Inj 50 Mg/1 Ml Vial) 25 mg IV Q4HP PRN PRN Reason: ITCHING Stop: 09/12/19 08:28 Last Admin: 08/16/19 09:38 Dose: 25 mg Documented by: Docusate Sodium (Colace 100 Mg Capsule) 100 mg PO BID [facility] Stop: 09/10/19 09:59 Last Admin: 08/16/19 09:39 Dose: 100 mg Documented by: Folic Acid (Folvite 1 Mg Tablet) 1 mg PO DAILY [facility] Stop: 09/11/19 09:59 Last Admin: 08/16/19 09:39 Dose: 1 mg Documented by: Heparin Sodium (Porcine) (Heparin Inj 5,000 Units/Ml 1 Ml Vial) 5,000 unit SUBCUT Q8 FELICIA Stop: 03/04/20 21:59 Last Admin: 08/16/19 05:03 Dose: Not Given Documented by: Heparin Sodium (Porcine) (Heparin Flush 10 Unit/Ml 5 Ml Disp.Syrg) 30 unit IV Q12 FELICIA Stop: 09/12/19 21:59 Last Admin: 08/16/19 09:40 Dose: 30 unit Documented by: Heparin Sodium (Porcine) (Heparin Flush 10 Unit/Ml 5 Ml Disp.Syrg) 30 unit IV .AFTER EACH USE PRN Stop: 09/12/19 12:59 Hydromorphone HCl (Dilaudid Inj/Pf 2 Mg/Ml Ampule) 5 mg IV Q2HP PRN PRN Reason: FOR PAIN Stop: 08/21/19 09:28 Last Admin: 08/16/19 09:38 Dose: 5 mg Documented by: Dextrose/Sodium Chloride (D5ns 1000 Ml Iv Soln) 1,000 mls @ 100 mls/hr IV CONTINUOUS PRN PRN Reason: THIS MED IS NOT "PRN" Stop: 09/15/19 09:25 Magnesium Hydroxide (Milk Of Magnesia 30 Ml Udcup) 30 ml PO HSP PRN PRN Reason: FOR CONSTIPATION Stop: 09/09/19 21:02 Ondansetron HCl (Zofran Inj/Pf 4 Mg/2 Ml Sdv) 4 mg IV Q4HP PRN PRN Reason: FOR NAUSEA/VOMITING Stop: 09/14/19 16:37 Last Admin: 08/16/19 09:38 Dose: 4 mg Documented by: Psyllium Hydrophilic Mucilloid (Metamucil-Sf Powder 5.85 Gm Packet) 1 packet PO DAILY FELIC[facility] Stop: 09/10/19 09:59 Last Admin: 08/16/19 09:40 Dose: 1 packet Documented by: Sodium Biphosphate/Sodium Phosphate (Fleet Enema (Adult) 133 Ml) 133 ml WI ONC EP PRN PRN Reason: FOR CONSTIPATION Stop: 09/14/19 17:23 Last Admin: 08/15/19 19:03 Dose: 133 ml Documented by: Sodium Chloride (Nacl 0.9% Inj/Pf 10 Ml Sdv) 10 ml IV Q12 FELICIA Stop: 09/12/19 21:59 Last Admin: 08/16/19 09:39 Dose: 10 ml Documented by: Sodium Chloride (Nacl 0.9% Inj/Pf 10 Ml Sdv) 10 ml IV .AFTER EACH USE PRN Stop: 09/12/19 12:59 - Allergies Allergies/Adverse Reactions: ceftriaxone sodium [From Rocephin] Allergy (Verified 08/11/19 07:16) Cephalosporins Allergy (Verified 08/11/19 07:16) milk [Milk] Allergy (Verified 08/11/19 07:16) Shellfish * [Shellfish] Allergy (Verified 08/11/19 07:16) wheat [Wheat] Allergy (Verified 08/11/19 07:16) - Diet/Activity Discharge Diet: Regular Hospital Course Hospital Course: Please see the discharge summary that was dictated on August 11, 2019. This is an addendum to the discharge summary. Patient has been awaiting a bed availability hence she was still being managed in the hospital. Patient has been relatively stable since she has been in the hospital. She did get transfused 2 units of packed red blood cells on August 13 and hemoglobin is currently stable at 9. She continues to complain of generalized as sickling pain. Reticulocyte count today is 3.7 down from 14.2 on admission. She has been receiving IV fluids as well as Dilaudid 5 mg every 2 hours as recommended by her guard entrance registrar. Physical Exam Vital Signs: Temp Pulse Resp BP Pulse Ox 97.9 F 58 L 16 143/82 H 100 08/16/19 07:19 08/16/19 07:19 08/16/19 07:19 08/16/19 07:19 08/16/19 07:19 Intake & Output 08/15/19 08/16/19 08/17/19 06:59 06:59 06:59 Intake Total 4746 5467 Output Total 1550 1850 Balance 3196 3617 Weight 75.1 kg 79.9 kg General appearance: PRESENT: no acute distress, well-developed, well-nourished Head exam: PRESENT: atraumatic, normocephalic Eye exam: PRESENT: PERRLA. ABSENT: scleral icterus Mouth exam: PRESENT: tongue midline Neck exam: ABSENT: carotid bruit, JVD, lymphadenopathy, thyromegaly Respiratory exam: PRESENT: clear to auscultation william. ABSENT: rales, rhonchi, wheezes Cardiovascular exam: PRESENT: RRR, +S1, +S2. ABSENT: diastolic murmur, rubs, systolic murmur Pulses: PRESENT: normal dorsalis pedis pul Vascular exam: PRESENT: normal capillary refill GI/Abdominal exam: PRESENT: normal bowel sounds, soft. ABSENT: distended, guarding, mass, organolmegaly, rebound, tenderness Rectal exam: PRESENT: deferred Extremities exam: PRESENT: full ROM. ABSENT: calf tenderness, clubbing, pedal edema Neurological exam: PRESENT: alert, awake, oriented to person, oriented to place, oriented to time, oriented to situation, CN II-XII grossly intact. ABSENT: motor sensory deficit Psychiatric exam: PRESENT: appropriate affect, normal mood. ABSENT: homicidal ideation, suicidal ideation Skin exam: PRESENT: dry, intact, warm. ABSENT: cyanosis, rash Results Laboratory Results: 08/16/19 06:15 08/16/19 06:15 08/16/19 08/16/19 06:15 06:15 WBC 6.7 RBC 2.82 L Hgb 9.0 L Hct 25.5 L MCV 90 MCH 32.0 MCHC 35.5 RDW 22.6 H Plt Count 222 Seg Neutrophils % Not Reportable Retic Count (auto) 3.93 H Sodium 137.7 Potassium 3.7 Chloride 109 H Carbon Dioxide 22 Anion Gap 7 BUN 4 L Creatinine 0.40 L Est GFR ( Amer) > 60 Glucose 63 L Calcium 7.9 L Impressions: Chest X-Ray 08/11/19 00:00 IMPRESSION: Subsegmental atelectasis and possible infiltrate along the posteromedial left lung base and discoid atelectasis in the lingula inferolaterally. Mild cardiomegaly. Guidance Fluoroscopy 08/13/19 00:00 IMPRESSION: SUCCESSFUL PLACEMENT OF A 5 FR DUAL LUMEN 36 CM PICC IN THE LEFT BASILIC VEIN. Interventional Vascular Procedure 08/13/19 00:00 IMPRESSION: SUCCESSFUL PLACEMENT OF A 5 FR DUAL LUMEN 36 CM PICC IN THE LEFT BASILIC VEIN. PICC Line Insertion 08/13/19 09:12 IMPRESSION: SUCCESSFUL PLACEMENT OF A 5 FR DUAL LUMEN 36 CM PICC IN THE LEFT BASILIC VEIN. Plan Discharge Plan: Plan is to transfer to [facility] for higher level of care due to high risk . Time Spent: Greater than 30 Minutes
== END 2019-08-16 12:00 | disposition short-term general hospital (02) | DRG 831 ==
LOC: ER 13:56 → EH 19:47 → 4W 08-11 08:38
PROVIDERS: ADMIT Internal Medicine; ATTEND Internal Medicine
PROC: 02HV33Z Insertion of Infusion Device into Superior Vena Cava, Percutaneous Approach (ICD-10-PCS; principal; 2019-08-13)
PROC: B518ZZA Fluoroscopy of Superior Vena Cava, Guidance (ICD-10-PCS; 2019-08-13)
PROC: B548ZZA Ultrasonography of Superior Vena Cava, Guidance (ICD-10-PCS; 2019-08-13)
PROC: 30243N1 Transfusion of Nonautologous Red Blood Cells into Central Vein, Percutaneous Approach (ICD-10-PCS; 2019-08-13)
DX: O99.012 Anemia complicating pregnancy, second trimester (principal); D57.00 Hb-SS disease with crisis, unspecified; O16.2 Unspecified maternal hypertension, second trimester; O26.892 Other specified pregnancy related conditions, second trimester; O99.512 Diseases of the respiratory system complicating pregnancy, second trimester; J06.9 Acute upper respiratory infection, unspecified; Z91.011 Allergy to milk products; Z88.8 Allergy status to other drugs, medicaments and biological substances; Z91.013 Allergy to seafood; Z79.891 Long term (current) use of opiate analgesic; Z88.1 Allergy status to other antibiotic agents; O99.352 Diseases of the nervous system complicating pregnancy, second trimester; G43.909 Migraine, unspecified, not intractable, without status migrainosus; Z90.49 Acquired absence of other specified parts of digestive tract; Z85.71 Personal history of Hodgkin lymphoma; K59.09 Other constipation; R19.7 Diarrhea, unspecified; D72.829 Elevated white blood cell count, unspecified
CPT/HCPCS: 36415; 36430; 36569; 71046; 76937; 77001; 80048; 80053; 80307; 81001; 82607; 82728; 82746; 82962; 83010; 83020; 83540; 83550; 83615; 83735; 84702; 85025; 85045; 86850; 86900; 86901; 86902; 86920; 87086; 87491; 87591; 87804; 93005; 93010; 94799; 96361; 96374; 96375; 96376; 99284; J0456; J1170; J1200; J1642; J1644; J2405; J3490; J7030; J7060; P9016

== ENCOUNTER 2019-08-21 11:11 | Outpatient (CLI) | payer MEDICAID ==
[2019-08-21] MEDS ORDERED: DIPHENHYDRAMINE HCL 50 MG/ML VIAL IV PRN (11:18)
[2019-08-21] MEDS ORDERED: ONDANSETRON HCL INJ/PF 4 MG/2 ML SDV IV PRN (11:19)
[2019-08-21] MEDS ORDERED: HYDROMORPHONE HCL INJ/PF 2 MG/ML AMPULE IV PRN (11:19)
[2019-08-21] MEDS ORDERED: NORMAL SALINE 1000 ML 1,000 ML IV PRN (11:20)
[2019-08-21 11:45] VITALS: BP 151/78
[2019-08-21] MEDS ORDERED: NORMAL SALINE 10 ML SDV (AFTER EACH USE) IV PRN (13:00)
== END 2019-08-21 13:43 | disposition home or self-care (01) ==
LOC: II 11:11 → 5TH 11:18 → II 13:43
PROVIDERS: ATTEND Internal Medicine
DX: D57.00 Hb-SS disease with crisis, unspecified (principal); E86.0 Dehydration; R11.0 Nausea; R52 Pain, unspecified
CPT/HCPCS: 96375; 96360; J1200; J1170; J2405; J1642; 96361; 96374

== ENCOUNTER → 2019-08-24 | Outpatient (CLI) | payer MEDICAID ==
[~2019-08-24] MED LIST changes: +DIPHENHYDRAMINE HCL 50 MG/ML VIAL ONE; +HYDROMORPHONE HCL INJ/PF 2 MG/ML AMPULE IV ONE; +HYDROMORPHONE HCL INJ/PF 2 MG/ML AMPULE ONE; +NORMAL SALINE 10 ML SDV (AFTER EACH USE) IV PRN; +NORMAL SALINE 10 ML SDV (SCHEDULED) IV SCH; +NORMAL SALINE 1000 ML 1,000 ML IV PRN; +ONDANSETRON HCL INJ/PF 4 MG/2 ML SDV IV ONE; -ONDANSETRON HCL INJ/PF 4 MG/2 ML SDV IV PRN; +ONDANSETRON HCL INJ/PF 4 MG/2 ML SDV ONE
[2019-08-24 14:54] VITALS: BP 128/74
== END ==
LOC: ASU 14:19
PROVIDERS: ATTEND Internal Medicine
DX: D57.00 Hb-SS disease with crisis, unspecified (principal); E86.0 Dehydration; R11.0 Nausea; R52 Pain, unspecified
CPT/HCPCS: 96365; 96374; 96375; 96361; J1200; J1170; J2405; J1642

== ENCOUNTER 2019-08-25 08:33 | Outpatient (CLI) | payer MEDICAID ==
[2019-08-25] MEDS ORDERED: DIPHENHYDRAMINE HCL 50 MG/ML VIAL IV PRN (08:40)
[2019-08-25] MEDS ORDERED: ONDANSETRON HCL INJ/PF 4 MG/2 ML SDV IV PRN (08:41)
[2019-08-25] MEDS ORDERED: HYDROMORPHONE HCL INJ/PF 2 MG/ML AMPULE IV PRN (08:41)
[2019-08-25] MEDS ORDERED: NORMAL SALINE 1000 ML 1,000 ML IV PRN (08:42)
[2019-08-25 08:47] VITALS: BP 150/72
[2019-08-25] MEDS ORDERED: NORMAL SALINE 10 ML SDV (AFTER EACH USE) IV PRN (09:30)
[2019-08-25] MEDS ORDERED: NORMAL SALINE 10 ML SDV (SCHEDULED) IV SCH (10:00)
== END 2019-08-25 10:32 | disposition home or self-care (01) ==
LOC: II 08:33 → 5TH 08:37 → II 10:32
PROVIDERS: ATTEND Internal Medicine
DX: D57.00 Hb-SS disease with crisis, unspecified (principal); E86.0 Dehydration; R11.0 Nausea; R52 Pain, unspecified
CPT/HCPCS: 96375; 96360; J1200; J1170; J2405; J1642; 96361; 96374

== ENCOUNTER 2019-08-26 09:14 | Outpatient (CLI) | payer MEDICAID ==
[2019-08-26 09:25] VITALS: BP 135/80
[2019-08-26] MEDS ORDERED: ONDANSETRON HCL INJ/PF 4 MG/2 ML SDV IV PRN (09:29)
[2019-08-26] MEDS ORDERED: DIPHENHYDRAMINE HCL 50 MG/ML VIAL IV PRN (09:29)
[2019-08-26] MEDS ORDERED: NORMAL SALINE 1000 ML 1,000 ML IV PRN (09:30)
[2019-08-26] MEDS ORDERED: HYDROMORPHONE HCL INJ/PF 2 MG/ML AMPULE IV PRN (09:30)
[2019-08-26] MEDS ORDERED: NORMAL SALINE 10 ML SDV (AFTER EACH USE) IV PRN (11:00)
[2019-08-26] MEDS ORDERED: NORMAL SALINE 10 ML SDV (SCHEDULED) IV SCH (22:00)
== END 2019-08-26 11:05 | disposition home or self-care (01) ==
LOC: II 09:14 → 5TH 09:17 → II 11:05
PROVIDERS: ATTEND Internal Medicine
DX: D57.00 Hb-SS disease with crisis, unspecified (principal); E86.0 Dehydration; R11.0 Nausea; R52 Pain, unspecified
CPT/HCPCS: 96374; 96375; 96361; J1200; J1170; J2405; J1642

== ENCOUNTER 2019-08-27 09:16 | Outpatient (CLI) | payer MEDICAID ==
[2019-08-27] MEDS ORDERED: DIPHENHYDRAMINE HCL 50 MG/ML VIAL IV PRN (09:22)
[2019-08-27] MEDS ORDERED: ONDANSETRON HCL INJ/PF 4 MG/2 ML SDV IV PRN (09:23)
[2019-08-27] MEDS ORDERED: HYDROMORPHONE HCL INJ/PF 2 MG/ML AMPULE IV PRN (09:23)
[2019-08-27] MEDS ORDERED: NORMAL SALINE 1000 ML 1,000 ML IV PRN (09:23)
[2019-08-27 09:55] VITALS: BP 135/84
== END 2019-08-27 11:05 | disposition home or self-care (01) ==
LOC: II 09:16 → 5TH 09:19 → II 11:05
PROVIDERS: ATTEND Internal Medicine
DX: D57.00 Hb-SS disease with crisis, unspecified (principal); E86.0 Dehydration; R11.0 Nausea; R52 Pain, unspecified
CPT/HCPCS: 96374; 96375; 96361; J1200; J1170; J2405

== ENCOUNTER 2019-08-30 13:38 | Emergency (ER) | payer MEDICAID ==
[2019-08-30] MEDS ORDERED: HYDROMORPHONE HCL INJ/PF 2 MG/ML AMPULE IV ONE ×3 (14:47→17:36)
[2019-08-30] MEDS ORDERED: DIPHENHYDRAMINE HCL 50 MG/ML VIAL IV ONE (14:47)
[2019-08-30] MEDS ORDERED: NORMAL SALINE 1000 ML 1,000 ML IV ONE ×2 (14:48)
[2019-08-30] MEDS ORDERED: ONDANSETRON HCL INJ/PF 4 MG/2 ML SDV IV ONE (14:48)
--- NOTE | 2019-08-30 14:50 | ER Document Report ---
ED Medical Screen (RME) - General Chief Complaint: Sickle Cell Crisis Stated Complaint: PAIN ALL OVER Time Seen by Provider: 08/30/19 14:44 Primary Care Provider: AMALIA OROZCO PA-C [Primary Care Provider] - Follow up as needed Mode of Arrival: Ambulatory Information source: Patient Notes: 29-year-old female patient with history of sickle cell presenting with all over body aches. Patient denies any chest pain or shortness of breath. She states this feels like a typical sickle cell crisis. Lung sounds clear and equal bilaterally. I have greeted and performed a rapid initial assessment of this patient. A comprehensive ED assessment and evaluation of the patient, analysis of test results and completion of the medical decision making process will be conducted by additional ED providers. I have specifically instructed the patient or family members with the patient to immediately return to any nursing staff should anything change in the patient's condition or with their chief complaint. TRAVEL OUTSIDE OF THE [place] IN LAST 30 DAYS: No - Related Data Allergies/Adverse Reactions: ceftriaxone sodium [From Rocephin] Allergy (Verified 08/30/19 14:39) Cephalosporins Allergy (Verified 08/30/19 14:39) milk [Milk] Allergy (Verified 08/30/19 14:39) Shellfish * [Shellfish] Allergy (Verified 08/30/19 14:39) wheat [Wheat] Allergy (Verified 08/30/19 14:39) Past Medical History - Social History Chew tobacco use (# tins/day): No Frequency of alcohol use: None Drug Abuse: None Family history: None, Reviewed & Not Pertinent - Past Medical History Cardiac Medical History: Reports: Hx Hypertension, Hx Heart Murmur Denies: Hx Coronary Artery Disease, Hx Heart Attack Pulmonary Medical History: Reports: Hx Asthma, Hx Pneumonia - 2017 Denies: Hx Bronchitis, Hx COPD, Hx Tuberculosis Neurological Medical History: Reports: Hx Migraine, Hx Seizures. Denies: Hx Cerebrovascular Accident Endocrine Medical History: Denies: Hx Diabetes Mellitus Type 1, Hx Diabetes Mellitus Type 2, Hx Hyperthyroidism, Hx Hypothyroidism Renal/ Medical History: Denies: Hx Peritoneal Dialysis GI Medical History: Reports: Hx Gastroesophageal Reflux Disease. Denies: Hx Cirrhosis, Hx Hepatitis Musculoskeltal Medical History: Denies Hx Arthritis, Denies Hx Fibromyalgia, Denies Hx Gout Skin Medical History: Denies Hx Eczema, Reports Hx MRSA, Denies Hx Psoriasis Psychiatric Medical History: Reports: Hx Depression Infectious Medical History: Denies: Hx Hepatitis Past Surgical History: Reports: Hx Adenoidectomy, Hx Cholecystectomy, Hx Oral Surgery - growth removed from under tongue, Hx Tonsillectomy, Other - Port placement 2 and removal for infection, multiple PICC lines, central l. Denies: Hx Hysterectomy, Hx Kidney (Renal Surgery), Hx Pacemaker - Immunizations Hx Diphtheria, Pertussis, Tetanus Vaccination: Yes Physical Exam - Vital signs Vitals: Temp Pulse Resp BP Pulse Ox 99.3 F 77 16 159/85 H 97 08/30/19 14:24 08/30/19 14:24 08/30/19 14:24 08/30/19 14:24 08/30/19 14:24 Course - Vital Signs Vital signs: Temp Pulse Resp BP Pulse Ox 99.3 F 77 16 159/85 H 97 08/30/19 14:24 08/30/19 14:24 08/30/19 14:24 08/30/19 14:24 08/30/19 14:24 Doctor's Discharge - Discharge Referrals: AMALIA OROZCO PA-C [Primary Care Provider] - Follow up as needed
[2019-08-30 15:27] LABS: ABSOLUTE RETICS # 0.231 10^6/uL (0.028-0.122); HEMATOCRIT 32.8 % (36.0-47.0); MEAN CORPUSCULAR HEMOGLOBIN 31.6 pg (27.0-33.4); MEAN CORPUSCULAR HGB CONC 36.4 g/dL (32.0-36.0); MEAN CORPUSCULAR VOLUME 87 fl (80-97); PLATELET COUNT 350 10^3/uL (150-450); RED BLOOD COUNT 3.78 10^6/uL (3.72-5.28); RED CELL DISTRIBUTION WIDTH 21.2 % (11.5-14.0); RETICULOCYTE COUNT (AUTO) 6.11 % (0.66-2.85); WHITE BLOOD COUNT 11.8 10^3/uL (4.0-10.5)
--- NOTE | 2019-08-30 15:30 | ER Document Report ---
ED General Pain - General Chief Complaint: Sickle Cell Crisis Stated Complaint: PAIN ALL OVER Time Seen by Provider: 08/30/19 14:44 Primary Care Provider: AMALIA OROZCO PA-C [Primary Care Provider] - Follow up as needed BRUNA MENJIVAR MD [ACTIVE STAFF] - Follow up in 3-5 days Mode of Arrival: Ambulatory Notes: Patient is a 29-year-old female who presents emergency department with a sickle cell crisis. Patient states that her pain started yesterday. States that it is in all her joints in her extremities. She denies any chest pain. Patient states that she has taken her oxycodone at home with little relief. Patient states that she has had a runny nose and a little bit of a cough. Patient is currently 22 weeks . TRAVEL OUTSIDE OF THE [place] IN LAST 30 DAYS: No - Related Data Allergies/Adverse Reactions: ceftriaxone sodium [From Rocephin] Allergy (Verified 08/30/19 14:39) Cephalosporins Allergy (Verified 08/30/19 14:39) milk [Milk] Allergy (Verified 08/30/19 14:39) Shellfish * [Shellfish] Allergy (Verified 08/30/19 14:39) wheat [Wheat] Allergy (Verified 08/30/19 14:39) Past Medical History - General Information source: Patient - Social History Smoking Status: Never Smoker Chew tobacco use (# tins/day): No Frequency of alcohol use: None Drug Abuse: None Family History: None, DM, Malignancy - Brother with Hodgkin's lymphoma. Maternal grandfather with lung cancer., Other - sickle trait in Mother and Father Patient has suicidal ideation: No Patient has homicidal ideation: No - Past Medical History Cardiac Medical History: Reports: Hx Hypertension, Hx Heart Murmur Denies: Hx Coronary Artery Disease, Hx Heart Attack Pulmonary Medical History: Reports: Hx Asthma, Hx Pneumonia - 2017 Denies: Hx Bronchitis, Hx COPD, Hx Tuberculosis Neurological Medical History: Reports: Hx Migraine, Hx Seizures. Denies: Hx Cerebrovascular Accident Endocrine Medical History: Denies: Hx Diabetes Mellitus Type 1, Hx Diabetes Mellitus Type 2, Hx Hyperthyroidism, Hx Hypothyroidism Renal/ Medical History: Denies: Hx Peritoneal Dialysis GI Medical History: Reports: Hx Gastroesophageal Reflux Disease. Denies: Hx Cirrhosis, Hx Hepatitis Musculoskeletal Medical History: Denies Hx Arthritis, Denies Hx Fibromyalgia, Denies Hx Gout Skin Medical History: Denies Hx Eczema, Reports Hx MRSA, Denies Hx Psoriasis Psychiatric Medical History: Reports: Hx Depression Infectious Medical History: Denies: Hx Hepatitis Past Surgical History: Reports: Hx Adenoidectomy, Hx Cholecystectomy, Hx Oral Surgery - growth removed from under tongue, Hx Tonsillectomy, Other - Port placement 2 and removal for infection, multiple PICC lines, central l. Denies: Hx Hysterectomy, Hx Kidney (Renal Surgery), Hx Pacemaker - Immunizations Hx Diphtheria, Pertussis, Tetanus Vaccination: Yes Hx Pneumococcal Vaccination: 07/08/11 Review of Systems - Review of Systems Notes: REVIEW OF SYSTEMS: CONSTITUTIONAL : Denies recent illness. Denies recent unintentional weight loss. Denies fever, chills, or sweats. EENT: Denies eye, ear, throat, or mouth pain, discharge, or symptoms. Denies nasal or sinus congestion. CARDIOVASCULAR: Denies chest pain. RESPIRATORY: Denies shortness of breath, cough, congestion, difficulty breathing, or wheezing. GASTROINTESTINAL: Denies nausea, vomiting, and diarrhea. Denies abdominal pain. Denies constipation. GENITOURINARY: Denies difficulty urinating, burning, blood in urine, urgency or frequency. MUSCULOSKELETAL: Denies neck and back pain. See HPI. SKIN: Denies rash, itchiness, or lesions HEMATOLOGIC : Denies easy bruising or bleeding. LYMPHATIC: Denies swollen, painful, enlarged glands. NEUROLOGICAL: Denies no numbness or tingling denies weakness. Denies headache. Denies altered mental status. Denies alteration in speech. PSYCHIATRIC: Denies stress, anxiety, alteration in sleep patterns, or depression. All other systems reviewed and negative. Physical Exam - Vital signs Vitals: Temp Pulse Resp BP Pulse Ox 99.3 F 77 16 159/85 H 97 08/30/19 14:24 08/30/19 14:24 08/30/19 14:24 08/30/19 14:24 08/30/19 14:24 - Notes Notes: PHYSICAL EXAMINATION: GENERAL: Appears well, healthy, well-nourished, no acute distress. HEAD: Normocephalic, atraumatic. EYES: PERRL, conjunctiva normal, all extraocular movements intact, sclera nonicteric ENT: Moist mucous membranes. Clear rhinorrhea noted. NECK: Supple, no noticeable swelling, redness, rash. Normal range of motion. LUNGS: Equal breath sounds bilaterally and clear to auscultation. No wheezes rales or rhonchi. CARDIOVASCULAR: S1-S2, regular rate, regular rhythm. Radial pulses 2+, normal. ABDOMEN: Normoactive bowel sounds. Soft, nontender, no guarding, no rebound tenderness, and no masses palpated. EXTREMITIES: Normal strength and range of motion, no pitting or edema. No cyanosis. NEUROLOGICAL: Moves all extremities upon command. Strength 5/5 in all extremities. PSYCH: Normal mood, normal affect. SKIN: Warm, dry. No rash, lesions, ulcerations noted. Normal skin turgor. Course - Re-evaluation Re-evalutation: 08/30/19 16:24 I have reassessed the patient and she states that she is still in pain. Will order another dose of Dilaudid. 08/30/19 17:30 Patient still reports pain. We will give her another dose of Dilaudid. 08/30/19 18:25 Patient states that her pain is now well controlled. Patient will follow-up with Dr. Keny esteban. She will also follow-up with [facility]. I have a very low suspicion for acute chest syndrome. Follow-up precautions were given. Verbal discharge instructions were given to the patient. They verbalized understanding. They are stable for discharge. - Vital Signs Vital signs: Temp Pulse Resp BP Pulse Ox 98.5 F 66 18 140/87 H 99 08/30/19 17:48 08/30/19 17:48 08/30/19 17:48 08/30/19 17:48 08/30/19 17:48 - Laboratory Result Diagrams: 08/30/19 15:09 08/30/19 15:09 Laboratory results interpreted by me: 08/30/19 08/30/19 08/30/19 15:09 15:09 17:07 WBC 11.8 H Hct 32.8 L MCHC 36.4 H RDW 21.2 H Reticulocyte # 0.231 H Retic Count (auto) 6.11 H Sodium 135.7 L Creatinine 0.49 L Total Bilirubin 1.8 H AST 214 H ALT 150 H Urine HCG, Qual POSITIVE H Discharge - Discharge Clinical Impression: Sickle cell pain crisis, Generalized pain Joint pain Qualifiers: Joint pain location: unspecified Qualified Code(s): M25.50 - Pain in unspecified joint Condition: Stable Disposition: HOME, SELF-CARE Additional Instructions: You were seen today for sickle cell pain crisis. Please follow-up with your sampling expert. Returning to the ED if you have worsening pain, fever greater than 100.4, shortness of breath, persistent vomiting, or any other symptoms that are concerning to you. Referrals: AMALIA OROZCO PA-C [Primary Care Provider] - Follow up as needed BRUNA MENJIVAR MD [ACTIVE STAFF] - Follow up in 3-5 days
[2019-08-30 15:43] LABS: ALBUMIN 3.7 g/dL (3.5-5.0); ALKALINE PHOSPHATASE 81 U/L (38-126); ANION GAP 7 (5-19); ASPARTATE AMINO TRANSFERASE 214 U/L (14-36); BILIRUBIN,DIRECT 0.2 mg/dL (0.0-0.4); BILIRUBIN,TOTAL 1.8 mg/dL (0.2-1.3); BLOOD UREA NITROGEN 7 mg/dL (7-20); CALCIUM 9.1 mg/dL (8.4-10.2); CARBON DIOXIDE 25 mmol/L (22-30); CHLORIDE 104 mmol/L (98-107); GLUCOSE 80 mg/dL (75-110); POTASSIUM 4.3 mmol/L (3.6-5.0)
[2019-08-30 15:51] LABS: ABSOLUTE LYMPHOCYTES# (MANUAL) 2.8 10^3/uL (0.5-4.7); ABSOLUTE MONOCYTES # (MANUAL) 0.8 10^3/uL (0.1-1.4); BASOPHILS % (MANUAL) 0 % (0-2); EOSINOPHILS % (MANUAL) 0 % (0-6); LYMPHOCYTES % (MANUAL) 24 % (13-45); MONOCYTES % (MANUAL) 7 % (3-13); NUCLEATED RED BLOOD CELLS 10 /100 WBC (0); SEGMENTED NEUTROPHILS % (MAN) 69 % (42-78); TOTAL CELLS COUNTED 100
[2019-08-30 15:57] LABS: ANISOCYTOSIS 3+; HOWELL-JOLLY BODIES PRESENT; POIKILOCYTOSIS 3+; POLYCHROMASIA 1+; SICKLE RED CELLS 3+
[2019-08-30 15:58] LABS: PLATELET COMMENT ADEQUATE; PLATELET GIANT PRESENT
[2019-08-30 16:24] LABS: A TYPE INFLUENZA AG NEGATIVE (NEGATIVE); B INFLUENZA AG NEGATIVE (NEGATIVE)
[2019-08-30 17:50] VITALS: BP 140/87
== END 2019-08-30 18:33 | disposition home or self-care (01) ==
LOC: ER 13:38
DX: O99.012 Anemia complicating pregnancy, second trimester (principal); D57.00 Hb-SS disease with crisis, unspecified; O26.892 Other specified pregnancy related conditions, second trimester; M25.50 Pain in unspecified joint; R09.89 Other specified symptoms and signs involving the circulatory and respiratory systems; R05 Cough; Z3A.22 22 weeks gestation of pregnancy; Z79.899 Other long term (current) drug therapy; Z88.8 Allergy status to other drugs, medicaments and biological substances; I10 Essential (primary) hypertension; J45.909 Unspecified asthma, uncomplicated
CPT/HCPCS: 96376; 99284; 96361; 96374; 96375; 36415; 85025; 81025; 85045; 80053; 87804; J1200; J1170; J2405; J7030

== ENCOUNTER 2019-09-01 11:44 | Outpatient (CLI) | payer MEDICAID ==
[2019-09-01 12:01] VITALS: BP 131/77
[2019-09-01] MEDS ORDERED: DIPHENHYDRAMINE HCL 50 MG/ML VIAL IV PRN (12:02)
[2019-09-01] MEDS ORDERED: ONDANSETRON HCL INJ/PF 4 MG/2 ML SDV IV PRN (12:03)
[2019-09-01] MEDS ORDERED: HYDROMORPHONE HCL INJ/PF 2 MG/ML AMPULE IV PRN (12:03)
[2019-09-01] MEDS ORDERED: NORMAL SALINE 1000 ML 1,000 ML IV PRN (12:06)
== END 2019-09-01 14:19 | disposition home or self-care (01) ==
LOC: II 11:44 → 5TH 11:47 → II 14:19
PROVIDERS: ATTEND Internal Medicine
DX: D57.00 Hb-SS disease with crisis, unspecified (principal); E86.0 Dehydration; R11.0 Nausea; R52 Pain, unspecified
CPT/HCPCS: 96374; 96375; 96361; J1200; J1170; J2405

== ENCOUNTER 2019-09-02 13:06 | Outpatient (CLI) | payer MEDICAID ==
[2019-09-02 13:22] VITALS: BP 144/89
[2019-09-02] MEDS ORDERED: DIPHENHYDRAMINE HCL 50 MG/ML VIAL IV PRN (13:36)
[2019-09-02] MEDS ORDERED: ONDANSETRON HCL INJ/PF 4 MG/2 ML SDV IV PRN (13:37)
[2019-09-02] MEDS ORDERED: HYDROMORPHONE HCL INJ/PF 2 MG/ML AMPULE IV PRN (13:37)
[2019-09-02] MEDS ORDERED: NORMAL SALINE 1000 ML 1,000 ML IV PRN (13:38)
== END 2019-09-02 14:31 | disposition home or self-care (01) ==
LOC: II 13:06 → 5TH 13:09 → II 14:31
PROVIDERS: ATTEND Internal Medicine
DX: D57.00 Hb-SS disease with crisis, unspecified (principal); E86.0 Dehydration; R11.0 Nausea; R52 Pain, unspecified
CPT/HCPCS: 96374; 96375; 96360; J1200; J1170; J2405; 96361

== ENCOUNTER 2019-09-03 09:13 | Outpatient (CLI) | payer MEDICAID ==
[~2019-09-03 09:13] MED LIST changes: +DIPHENHYDRAMINE HCL 50 MG/ML VIAL IV PRN; -DIPHENHYDRAMINE HCL 50 MG/ML VIAL ONE; -HYDROMORPHONE HCL INJ/PF 2 MG/ML AMPULE IV ONE; +HYDROMORPHONE HCL INJ/PF 2 MG/ML AMPULE IV PRN; -HYDROMORPHONE HCL INJ/PF 2 MG/ML AMPULE ONE; -NORMAL SALINE 10 ML SDV (AFTER EACH USE) IV PRN; -NORMAL SALINE 10 ML SDV (SCHEDULED) IV SCH; -ONDANSETRON HCL INJ/PF 4 MG/2 ML SDV IV ONE; +ONDANSETRON HCL INJ/PF 4 MG/2 ML SDV IV PRN; -ONDANSETRON HCL INJ/PF 4 MG/2 ML SDV ONE
[2019-09-03 09:31] VITALS: BP 132/86
== END 2019-09-03 10:45 | disposition home or self-care (01) ==
LOC: II 09:13 → 5TH 09:15 → II 10:45
PROVIDERS: ATTEND Internal Medicine
DX: D57.00 Hb-SS disease with crisis, unspecified (principal); E86.0 Dehydration; R11.0 Nausea; R52 Pain, unspecified
CPT/HCPCS: 96374; 96375; 96361; J1200; J1170; J2405

== ENCOUNTER 2019-09-04 11:35 | Outpatient (CLI) | payer MEDICAID ==
[2019-09-04] MEDS ORDERED: DIPHENHYDRAMINE HCL 50 MG/ML VIAL IV PRN (11:58)
[2019-09-04] MEDS ORDERED: HYDROMORPHONE HCL INJ/PF 2 MG/ML AMPULE IV PRN (12:00)
[2019-09-04] MEDS ORDERED: NORMAL SALINE 1000 ML 1,000 ML IV PRN (12:00)
[2019-09-04] MEDS ORDERED: ONDANSETRON HCL INJ/PF 4 MG/2 ML SDV IV PRN (12:01)
[2019-09-04 12:11] VITALS: BP 136/90
[2019-09-04] MEDS ORDERED: DIPHENHYDRAMINE HCL 50 MG/ML VIAL ONE (12:17)
[2019-09-04] MEDS ORDERED: ONDANSETRON HCL INJ/PF 4 MG/2 ML SDV ONE (12:18)
[2019-09-04] MEDS ORDERED: HYDROMORPHONE HCL INJ/PF 2 MG/ML AMPULE ONE (12:37)
== END 2019-09-04 13:30 | disposition home or self-care (01) ==
LOC: II 11:35
PROVIDERS: ATTEND Internal Medicine
DX: D57.00 Hb-SS disease with crisis, unspecified (principal); E86.0 Dehydration; R11.0 Nausea; R52 Pain, unspecified
CPT/HCPCS: 96374; 96375; 96361; J1200; J1170; J2405

== ENCOUNTER 2019-09-04 16:24 | Outpatient (CLI) | payer MEDICAID ==
[2019-09-04] MEDS ORDERED: MORPHINE SULFATE 10 MG/ML INJ IV ONE (16:47)
[2019-09-04] MEDS ORDERED: MORPHINE SULFATE 10 MG/ML INJ ONE (16:47)
[2019-09-04] MEDS ORDERED: HYDROMORPHONE HCL INJ/PF 2 MG/ML AMPULE ONE ×2 (17:30→18:22)
[2019-09-04] MEDS ORDERED: RINGERS SOLUTION,LACTATED 1,000 ML IV PRN (18:00)
--- NOTE | 2019-09-04 18:00 | PDOC H&P ---
History of Present Illness Admission Date/PCP: AMALIA OROZCO PA-C Patient complains of: " I am having a sickle cell crisis because I did not get my exchange transfusion last week" History of Present Illness: PRANAV JOINER is a 29 year old female G1, P0 with an intrauterine at 23-5/7 weeks, presented to [facility] for her OB visit today. She was writhing in pain secondary to a sickle cell crisis. She stated that she missed her appointment for an exchange transfusion at [facility] secondary to inclement weather. heart tones were unable to be elicited Via Doppler, therefore she underwent an ultrasound which showed a demise at 23-5/7 weeks. The fetus is in a breech position with oligohydramnios. Patient has a sickle cell team at [facility]. Past Medical History 1 Year: 2020 Weeks: 23 - demise Cardiac Medical History: Reports: Hypertension, Heart Murmur Denies: Coronary Artery Disease, Myocardial Infarction Pulmonary Medical History: Reports: Asthma, Pneumonia - 2017 Denies: Bronchitis, Chronic Obstructive Pulmonary Disease (COPD), Tuberculosis Neurological Medical History: Reports: Migraine, Seizures Endocrine Medical History: Denies: Diabetes Mellitus Type 1, Diabetes Mellitus Type 2, Hyperthyroidism, Hypothyroidism GI Medical History: Reports: Gastroesophageal Reflux Disease Denies: Cirrhosis, Hepatitis Musculoskeltal Medical History: Denies: Arthritis, Fibromyalgia, Gout Skin Medical History: Denies: Eczema, Psoriasis Psychiatric Medical History: Reports: Depression Past Surgical History Past Surgical History: Reports: Adenoidectomy, Cholecystectomy, Tonsillectomy, Other - Port placement 2 and removal for infection, multiple PICC lines, central l Denies: Hysterectomy, Pacemaker Social History Information Source: Patient Lives with: Family Smoking Status: Never Smoker Frequency of Alcohol Use: None Hx Recreational Drug Use: No Drugs: None Hx Prescription Drug Abuse: No Family History Family History: None, DM, Malignancy - Brother with Hodgkin's lymphoma. Maternal grandfather with lung cancer., Other - sickle trait in Mother and Father Parental Family History Reviewed: No Children Family History Reviewed: NA Sibling(s) Family History Reviewed.: NA Medication/Allergy Home Medications: Folic Acid 5 mg PO DAILY 07/11/19 Oxycodone HCl 15 mg PO Q3HP PRN 07/11/19 No122/Iron/Folic Acid [ Multi Tablet] 1 each PO DAILY 07/20/19 Nifedipine [Procardia XL 30 mg Tablet] 1 tab PO DAILY 08/30/19 Allergies/Adverse Reactions: ceftriaxone sodium [From Rocephin] Allergy (Verified 08/30/19 14:39) Cephalosporins Allergy (Verified 08/30/19 14:39) milk [Milk] Allergy (Verified 08/30/19 14:39) Shellfish * [Shellfish] Allergy (Verified 08/30/19 14:39) wheat [Wheat] Allergy (Verified 08/30/19 14:39) Review of Systems Cardiovascular: ABSENT: as per HPI, chest pain, dyspnea on exertion, edema, ort hropnea, palpitations, other Respiratory: ABSENT: as per HPI, cough, dyspnea, hemoptysis, sputum, other Musculoskeletal: PRESENT: other - Overall joint pain Psychiatric: PRESENT: other - Emotional distress secondary to demise Hematologic/Lymphatic: PRESENT: other - Sickle cell anemia--currently in crisis Physical Exam - Physical Exam Vital Signs: Intake & Output 09/03/19 09/04/19 09/05/19 06:59 06:59 06:59 Weight 61.5 kg General appearance: PRESENT: no acute distress Respiratory exam: PRESENT: clear to auscultation william Cardiovascular exam: PRESENT: RRR GI/Abdominal exam: PRESENT: normal bowel sounds, soft, other - gravid Extremities exam: ABSENT: calf tenderness, clubbing, full ROM, joint swelling, pedal edema, tenderness, +1 edema, +2 edema, other Assessment & Plan - Diagnosis (1) 23 weeks gestation of Is this a current diagnosis for this admission?: Yes (2) Sickle cell anemia of mother during Is this a current diagnosis for this admission?: Yes (3) Sickle cell pain crisis Is this a current diagnosis for this admission?: Yes (4) demise Is this a current diagnosis for this admission?: Yes - Time Time Spent: 30 to 50 Minutes Within: Other - Transferred to [facility] for sickle cell team - Plan Summary Plan Summary: 1. IV fluids 2. IV pain medication 3. Transfer to [facility] for delivery and sickle cell team availability
[2019-09-04] MEDS ORDERED: HYDROMORPHONE HCL INJ/PF 2 MG/ML AMPULE IV ONE ×2 (18:15→18:30)
[2019-09-04] MEDS ORDERED: PROMETHAZINE HCL INJ 25 MG/1 ML VIAL ONE (18:35)
[2019-09-04] MEDS ORDERED: PROMETHAZINE HCL INJ 25 MG/1 ML VIAL IV ONE (18:41)
== END 2019-09-04 18:44 | disposition short-term general hospital (02) ==
LOC: LC 16:24
PROVIDERS: ATTEND Obstetrics & Gynecology
PROC: 4A1HXCZ Monitoring of Products of Conception, Cardiac Rate, External Approach (ICD-10-PCS; principal; 2019-09-04)
DX: O36.4XX0 Maternal care for intrauterine death, not applicable or unspecified (principal); O41.02X0 Oligohydramnios, second trimester, not applicable or unspecified; O99.112 Other diseases of the blood and blood-forming organs and certain disorders involving the immune mechanism complicating pregnancy, second trimester; D57.00 Hb-SS disease with crisis, unspecified; O16.2 Unspecified maternal hypertension, second trimester; O99.612 Diseases of the digestive system complicating pregnancy, second trimester; K21.9 Gastro-esophageal reflux disease without esophagitis; O26.892 Other specified pregnancy related conditions, second trimester; R01.1 Cardiac murmur, unspecified; Z88.1 Allergy status to other antibiotic agents; Z3A.23 23 weeks gestation of pregnancy; Z91.011 Allergy to milk products; Z91.013 Allergy to seafood; Z91.018 Allergy to other foods
CPT/HCPCS: 59899; 87086; 87088; J1170; J2550; 94760; J2270

== ENCOUNTER 2019-09-11 13:49 | Outpatient (CLI) | payer MEDICAID ==
[2019-09-11] MEDS ORDERED: NORMAL SALINE 1000 ML 1,000 ML IV PRN (13:50)
[2019-09-11] MEDS ORDERED: ONDANSETRON HCL INJ/PF 4 MG/2 ML SDV IV PRN (13:51)
[2019-09-11] MEDS ORDERED: DIPHENHYDRAMINE HCL 50 MG/ML VIAL IV PRN (13:52)
[2019-09-11] MEDS ORDERED: HYDROMORPHONE HCL INJ/PF 2 MG/ML AMPULE INJ PRN (13:53)
[2019-09-11] MEDS ORDERED: HYDROMORPHONE HCL INJ/PF 2 MG/ML AMPULE IV PRN (14:00)
[2019-09-11 14:12] VITALS: BP 140/82
== END 2019-09-11 15:58 | disposition home or self-care (01) ==
LOC: II 13:49 → 5TH 13:51 → II 15:58
PROVIDERS: ATTEND Internal Medicine
DX: D57.00 Hb-SS disease with crisis, unspecified (principal); E86.0 Dehydration; R11.0 Nausea; R52 Pain, unspecified
CPT/HCPCS: 96375; 96361; J1200; J1170; J2405; 96374

== ENCOUNTER 2019-09-14 15:17 | Outpatient (CLI) | payer MEDICAID ==
[2019-09-14] MEDS ORDERED: DIPHENHYDRAMINE HCL 50 MG/ML VIAL IV ONE (16:00)
[2019-09-14] MEDS ORDERED: ONDANSETRON HCL INJ/PF 4 MG/2 ML SDV IV ONE (16:00)
[2019-09-14] MEDS ORDERED: HYDROMORPHONE HCL INJ/PF 2 MG/ML AMPULE IV ONE (16:00)
[2019-09-14] MEDS ORDERED: NORMAL SALINE 1000 ML 1,000 ML IV PRN (16:00)
[2019-09-14 17:39] VITALS: BP 128/79
== END 2019-09-14 17:35 | disposition home or self-care (01) ==
LOC: LAB 15:17 → 2S 15:20 → LAB 17:35
PROVIDERS: ATTEND Internal Medicine
DX: D57.00 Hb-SS disease with crisis, unspecified (principal); E86.0 Dehydration; R11.0 Nausea; R52 Pain, unspecified
CPT/HCPCS: 96374; 96375; 96361; J1200; J1170; J2405; J7030

== ENCOUNTER 2019-09-15 09:00 | Outpatient (CLI) | payer MEDICAID ==
[2019-09-15] MEDS ORDERED: NORMAL SALINE 1000 ML 1,000 ML IV PRN (09:10)
[2019-09-15 09:12] VITALS: BP 133/76
[2019-09-15] MEDS ORDERED: DIPHENHYDRAMINE HCL 50 MG/ML VIAL IV ONE (10:00)
[2019-09-15] MEDS ORDERED: HYDROMORPHONE HCL INJ/PF 2 MG/ML AMPULE IV ONE (10:00)
[2019-09-15] MEDS ORDERED: ONDANSETRON HCL INJ/PF 4 MG/2 ML SDV IV ONE (10:00)
== END 2019-09-15 10:48 | disposition home or self-care (01) ==
LOC: II 09:00 → 5TH 09:02 → II 10:48
PROVIDERS: ATTEND Internal Medicine
DX: D57.00 Hb-SS disease with crisis, unspecified (principal); E86.0 Dehydration; R11.0 Nausea; R52 Pain, unspecified
CPT/HCPCS: 96374; 96375; 96361; J1200; J1170; J2405

== ENCOUNTER 2019-09-16 12:04 | Outpatient (CLI) | payer MEDICAID ==
[2019-09-16 14:31] VITALS: BP 126/73
== END 2019-09-16 13:45 | disposition home or self-care (01) ==
LOC: II 12:04 → 5TH 12:07 → II 13:45
PROVIDERS: ATTEND Internal Medicine
DX: D57.00 Hb-SS disease with crisis, unspecified (principal); E86.0 Dehydration; R11.0 Nausea; R52 Pain, unspecified
CPT/HCPCS: 96374; 96375; 96361; J1200; J1170; J2405

== ENCOUNTER 2019-09-17 12:07 | Outpatient (CLI) | payer MEDICAID ==
[2019-09-17 12:18] VITALS: BP 140/82
[2019-09-17] MEDS ORDERED: DIPHENHYDRAMINE HCL 50 MG/ML VIAL IV PRN (12:31)
[2019-09-17] MEDS ORDERED: ONDANSETRON HCL INJ/PF 4 MG/2 ML SDV IV PRN (12:32)
[2019-09-17] MEDS ORDERED: NORMAL SALINE 1000 ML 1,000 ML IV PRN (12:33)
[2019-09-17] MEDS ORDERED: HYDROMORPHONE HCL INJ/PF 2 MG/ML AMPULE IV PRN (12:34)
== END 2019-09-17 14:00 | disposition home or self-care (01) ==
LOC: II 12:07 → 5TH 12:09 → II 14:00
PROVIDERS: ATTEND Internal Medicine
DX: D57.00 Hb-SS disease with crisis, unspecified (principal); E86.0 Dehydration; R11.0 Nausea; R52 Pain, unspecified
CPT/HCPCS: 96374; 96375; 96361; J1200; J1170; J2405

== ENCOUNTER 2019-09-22 10:42 | Outpatient (CLI) | payer MEDICAID ==
[2019-09-22] MEDS ORDERED: HYDROMORPHONE HCL INJ/PF 2 MG/ML AMPULE IV PRN (10:53)
[2019-09-22] MEDS ORDERED: DIPHENHYDRAMINE HCL 50 MG/ML VIAL IV PRN (10:55)
[2019-09-22] MEDS ORDERED: ONDANSETRON HCL INJ/PF 4 MG/2 ML SDV IV PRN (10:55)
[2019-09-22 11:22] VITALS: BP 135/85
[2019-09-22] MEDS ORDERED: NORMAL SALINE 1000 ML 1,000 ML IV ONE (11:30)
== END 2019-09-22 13:12 | disposition home or self-care (01) ==
LOC: II 10:42 → 5TH 10:45 → II 13:12
PROVIDERS: ATTEND Internal Medicine
DX: D57.00 Hb-SS disease with crisis, unspecified (principal); E86.0 Dehydration; R11.0 Nausea; R52 Pain, unspecified
CPT/HCPCS: 96374; 96375; 96361; J1200; J1170; J2405

== ENCOUNTER 2019-09-23 10:28 | Outpatient (CLI) | payer MEDICAID ==
[2019-09-23 10:39] VITALS: BP 137/77
== END 2019-09-23 12:20 | disposition home or self-care (01) ==
LOC: II 10:28 → 5TH 10:30 → II 12:20
PROVIDERS: ATTEND Internal Medicine
DX: D57.00 Hb-SS disease with crisis, unspecified (principal); E86.0 Dehydration; R11.0 Nausea; R52 Pain, unspecified
CPT/HCPCS: 96374; 96375; 96361; J1200; J1170; J2405

== ENCOUNTER 2019-09-24 08:28 | Outpatient (CLI) | payer MEDICAID ==
[2019-09-24] MEDS ORDERED: ONDANSETRON HCL INJ/PF 4 MG/2 ML SDV IV PRN (08:38)
[2019-09-24] MEDS ORDERED: DIPHENHYDRAMINE HCL 50 MG/ML VIAL IV PRN (08:38)
[2019-09-24] MEDS ORDERED: NORMAL SALINE 1000 ML 1,000 ML IV PRN (08:39)
[2019-09-24] MEDS ORDERED: HYDROMORPHONE HCL INJ/PF 2 MG/ML AMPULE IV PRN (08:40)
[2019-09-24 08:48] VITALS: BP 143/88
== END 2019-09-24 10:08 | disposition home or self-care (01) ==
LOC: II 08:28 → 5TH 08:30 → II 10:08
PROVIDERS: ATTEND Internal Medicine
DX: D57.00 Hb-SS disease with crisis, unspecified (principal); E86.0 Dehydration; R11.0 Nausea; R52 Pain, unspecified
CPT/HCPCS: 96374; 96375; 96361; J1200; J1170; J2405

== ENCOUNTER 2019-10-02 09:02 | Outpatient (CLI) | payer MEDICAID ==
[~2019-10-02 09:02] MED LIST changes: -HYDROMORPHONE HCL INJ/PF 2 MG/ML AMPULE IV PRN; -NORMAL SALINE 1000 ML 1,000 ML IV PRN
[2019-10-02 09:31] VITALS: BP 147/81
[2019-10-02] MEDS: NORMAL SALINE 1000 ML 1,000 ML IV PRN ×2 (09:36→10:52)
[2019-10-02] MEDS ORDERED: HYDROMORPHONE HCL INJ/PF 2 MG/ML AMPULE ONE ×2 (09:41→11:13)
[2019-10-02] MEDS ORDERED: ONDANSETRON HCL INJ/PF 4 MG/2 ML SDV ONE (09:41)
[2019-10-02] MEDS ORDERED: DIPHENHYDRAMINE HCL 50 MG/ML VIAL ONE (09:41)
[2019-10-02] MEDS: HYDROMORPHONE HCL INJ/PF 2 MG/ML AMPULE IV PRN ×2 (09:52→11:15)
== END 2019-10-02 12:35 | disposition home or self-care (01) ==
LOC: ASU 09:02 → 5TH 09:04 → ASU 12:35
PROVIDERS: ATTEND Internal Medicine
DX: D57.00 Hb-SS disease with crisis, unspecified (principal); E86.0 Dehydration; R11.0 Nausea; R52 Pain, unspecified
CPT/HCPCS: 96374; 96375; 96361; J1200; J1170; J2405

== ENCOUNTER 2019-10-04 09:47 | Observation (INO) | payer MEDICAID ==
[2019-10-04] MEDS ORDERED: NORMAL SALINE 1000 ML 1,000 ML IV ONE ×3 (09:53→11:45)
--- NOTE | 2019-10-04 09:55 | ER Document Report ---
ED Medical Screen (RME) - General Chief Complaint: Sickle Cell Crisis Stated Complaint: POSSIBLE SICKLE CELL CRISIS Time Seen by Provider: 10/04/19 09:53 Primary Care Provider: AMALIA OROZCO PA-C [Primary Care Provider] - Follow up as needed TRAVEL OUTSIDE OF THE [place] IN LAST 30 DAYS: No - HPI Notes: 10/04/19 09:59 29-year-old female with a history of sickle cell crisis presents emergency room for body aches and what she suspects to be in a sickle cell crisis. Patient states her symptoms started a week ago with having joint pain in her extremities. Denies any shortness of breath chest pain. Patient has been managing her symptoms with oxycodone 15 mg every 3 hours. Patient is managed by Dr. Cornelius. Pt is is not she states she did lose her baby. I have greeted and performed a rapid initial assessment of this patient. A comprehensive ED assessment and evaluation of the patient, analysis of test results and completion of the medical decision making process will be conducted by additional ED providers. PHYSICAL EXAMINATION: GENERAL: Well-appearing, well-nourished and in mild distress HEAD: Atraumatic, normocephalic. CV: Sinus tachycardia LUNGS: No respiratory distress - Related Data Allergies/Adverse Reactions: ceftriaxone sodium [From Rocephin] Allergy (Verified 10/04/19 09:53) Cephalosporins Allergy (Verified 10/04/19 09:53) milk [Milk] Allergy (Verified 10/04/19 09:53) Shellfish * [Shellfish] Allergy (Verified 10/04/19 09:53) wheat [Wheat] Allergy (Verified 10/04/19 09:53) Past Medical History - Social History Family history: None, Reviewed & Not Pertinent - Past Medical History Cardiac Medical History: Reports: Hx Hypertension, Hx Heart Murmur Denies: Hx Coronary Artery Disease, Hx Heart Attack Pulmonary Medical History: Reports: Hx Asthma, Hx Pneumonia - 2017 Denies: Hx Bronchitis, Hx COPD, Hx Tuberculosis Neurological Medical History: Reports: Hx Migraine, Hx Seizures. Denies: Hx Cerebrovascular Accident Endocrine Medical History: Denies: Hx Diabetes Mellitus Type 1, Hx Diabetes Mellitus Type 2, Hx Hyperthyroidism, Hx Hypothyroidism Renal/ Medical History: Denies: Hx Peritoneal Dialysis GI Medical History: Reports: Hx Gastroesophageal Reflux Disease. Denies: Hx Cirrhosis, Hx Hepatitis Musculoskeltal Medical History: Denies Hx Arthritis, Denies Hx Fibromyalgia, Denies Hx Gout Skin Medical History: Denies Hx Eczema, Reports Hx MRSA, Denies Hx Psoriasis Psychiatric Medical History: Reports: Hx Depression Infectious Medical History: Denies: Hx Hepatitis Past Surgical History: Reports: Hx Adenoidectomy, Hx Cholecystectomy, Hx Oral Surgery - growth removed from under tongue, Hx Tonsillectomy, Other - Port placement 2 and removal for infection, multiple PICC lines, central l. Denies: Hx Hysterectomy, Hx Kidney (Renal Surgery), Hx Pacemaker - Immunizations Hx Diphtheria, Pertussis, Tetanus Vaccination: Yes Physical Exam - Vital signs Vitals: Temp Pulse Resp BP Pulse Ox 99 F 101 H 20 140/86 H 96 10/04/19 09:55 10/04/19 09:55 10/04/19 09:55 10/04/19 09:55 10/04/19 09:55 Course - Vital Signs Vital signs: Temp Pulse Resp BP Pulse Ox 99 F 101 H 20 140/86 H 96 10/04/19 09:55 10/04/19 09:55 10/04/19 09:55 10/04/19 09:55 10/04/19 09:55 Doctor's Discharge - Discharge Referrals: AMALIA OROZCO PA-C [Primary Care Provider] - Follow up as needed
--- NOTE | 2019-10-04 10:37 | ER Document Report ---
ED General Pain - General Chief Complaint: Sickle Cell Crisis Stated Complaint: POSSIBLE SICKLE CELL CRISIS Time Seen by Provider: 10/04/19 09:53 Mode of Arrival: Ambulatory Information source: Patient, [facility] Records Notes: This 29-year-old female patient with past medical history of sickle cell disease comes emergency room complaining of severe pain from head to toes. She states she is taking oxycodone 15 mg every 3 hours and it is not controlling her pain. She states it hurts to breathe, that is hard to breathe, and that she cannot catch her breath. She states she has pain in the ribs on both sides when she tries to breathe. When I asked her if her doctor had told her why he thought she was having so much trouble controlling her pain for such a long time, she states he has not sa id anything, but she thinks it may be because she miscarried at about 22 weeks gestation. Reviewing the records shows that she has been in the ambulatory surgical unit or another 1 of those units 10 of the last 20 days getting IV fluids and multiple doses of IV Dilaudid. She also received 120 tablets of oxycodone 15 mg on 09/11/2019, and another 120 tablets on 09/29/2019. At this time she does not have a Port-A-Cath, although she has had several in the past. TRAVEL OUTSIDE OF THE [place] IN LAST 30 DAYS: No - Related Data Allergies/Adverse Reactions: ceftriaxone sodium [From Rocephin] Allergy (Verified 10/04/19 09:53) Cephalosporins Allergy (Verified 10/04/19 09:53) milk [Milk] Allergy (Verified 10/04/19 09:53) Shellfish * [Shellfish] Allergy (Verified 10/04/19 09:53) wheat [Wheat] Allergy (Verified 10/04/19 09:53) Past Medical History - General Information source: Patient, [facility] Records - Social History Smoking Status: Never Smoker Cigarette use (# per day): No Chew tobacco use (# tins/day): No Smoking Education Provided: No Frequency of alcohol use: Rare Drug Abuse: None Lives with: Family Family History: None, DM, Malignancy - Brother with Hodgkin's lymphoma. Maternal grandfather with lung cancer., Other - sickle trait in Mother and Father Patient has suicidal ideation: No Patient has homicidal ideation: No - Past Medical History Cardiac Medical History: Reports: Hx Hypertension, Hx Heart Murmur Pulmonary Medical History: Reports: Hx Asthma, Hx Pneumonia - 2017 Neurological Medical History: Reports: Hx Migraine, Hx Seizures GI Medical History: Reports: Hx Gastroesophageal Reflux Disease Skin Medical History: Reports Hx MRSA Psychiatric Medical History: Reports: Hx Depression Past Surgical History: Reports: Hx Adenoidectomy, Hx Cholecystectomy, Hx Oral Surgery - growth removed from under tongue, Hx Tonsillectomy, Other - Port placement 2 and removal for infection, multiple PICC lines, central l - Immunizations Hx Diphtheria, Pertussis, Tetanus Vaccination: Yes Hx Pneumococcal Vaccination: 07/08/11 Review of Systems - Review of Systems Constitutional: denies: Fever EENT: No symptoms reported Cardiovascular: No symptoms reported Respiratory: Hurts to breathe, Short of breath Gastrointestinal: No symptoms reported Genitourinary: No symptoms reported Female Genitourinary: See HPI Musculoskeletal: Joint pain Skin: No symptoms reported Hematologic/Lymphatic: No symptoms reported Neurological/Psychological: Depression Physical Exam - Vital signs Vitals: Temp Pulse Resp BP Pulse Ox 99 F 101 H 20 140/86 H 96 10/04/19 09:55 10/04/19 09:55 10/04/19 09:55 10/04/19 09:55 10/04/19 09:55 Interpretation: Normal - General General appearance: Alert, Anxious In distress: Moderate - Patient is sitting on the bed, crying large tears. - HEENT Head: Normocephalic, Atraumatic Eyes: Normal Pupils: PERRL Pharynx: Normal Neck: Normal - Respiratory Respiratory status: No respiratory distress Breath sounds: Normal - Cardiovascular Rhythm: Regular - Abdominal Inspection: Normal Bowel sounds: Normal - Back Back: Normal - Extremities General upper extremity: Normal inspection General lower extremity: Normal inspection - Neurological Neuro grossly intact: Yes - Psychological Associated symptoms: Depressed - Skin Skin Temperature: Warm Skin Moisture: Dry Skin Color: Normal Course - Re-evaluation Re-evalutation: 10/04/19 10:42 I discussed case with Dr. Fei esteban. He feels she has been in crisis constantly since she had her miscarriage. He recommends giving her 2 L of saline, Benadryl, Zofran, and 3 mg of Dilaudid IV. He will see her tomorrow to set her up for daily ASU pain management treatments. 10/04/19 11:53 Patient reported no improvement in pain after 2 L of IV fluids and Dilaudid 3 mg IV. 10/04/19 13:09 Patient had a 99.6 temperature, room air pulse ox of 97 to 98%. Chest x-ray suggests a right basilar infiltrate. - Vital Signs Vital signs: Temp Pulse Resp BP Pulse Ox 98.2 F 97 16 117/84 98 10/04/19 15:33 10/04/19 15:33 10/04/19 15:33 10/04/19 15:33 10/04/19 15:33 - Laboratory Result Diagrams: 10/04/19 10:15 10/04/19 10:15 Laboratory results interpreted by me: 10/04/19 10/04/19 10/04/19 10:15 10:15 10:15 WBC 16.0 H RBC 3.28 L Hgb 10.3 L Hct 28.8 L RDW 21.7 H Reticulocyte # 0.290 H Abs Neuts (Manual) 10.7 H Retic Count (auto) 8.85 H D-Dimer 2.29 H Sodium 135.3 L BUN 4 L Creatinine 0.45 L Glucose 117 H Total Bilirubin 2.8 H NT-Pro-B Natriuret Pep Urine Protein Urine Blood Urine Urobilinogen Ur Leukocyte Esterase 10/04/19 10/04/19 10:15 11:46 WBC RBC Hgb Hct RDW Reticulocyte # Abs Neuts (Manual) Retic Count (auto) D-Dimer Sodium BUN Creatinine Glucose Total Bilirubin NT-Pro-B Natriuret Pep 271 H Urine Protein 30 H Urine Blood MODERATE H Urine Urobilinogen 4.0 H Ur Leukocyte Esterase TRACE H - Diagnostic Test Radiology reviewed: Image reviewed - Chest x-ray shows what appears to be a new right basilar infiltrate., Reports reviewed - Radiology reading is basilar subtle segmental volume loss, mild vascular congestion, small effusions, consistent with congestive heart failure. Stable cardiomegaly. - Consults Brandie Xiong NP Time consulted: 13:00 Consulted provider: will come to ER Discharge - Discharge Clinical Impression: Right lower lobe pulmonary infiltrate, Chronic pain syndrome, Chronic prescription opiate use, Opiate dependence, continuous Sickle cell anemia Qualifiers: Sickle-cell associated disorders: with unspecified crisis Qualified Code(s): D57.00 - Hb-SS disease with crisis, unspecified; D57.0 - Hb-SS disease with juan is Leukocytosis Qualifiers: Leukocytosis type: unspecified Qualified Code(s): D72.829 - Elevated white blood cell count, unspecified Condition: Stable Disposition: ADMITTED INPATIENT Admitting Provider: Ayde (Hospitalist) Unit Admitted: Medical Floor
[2019-10-04 10:44] LABS: HEMATOCRIT 28.8 % (36.0-47.0); HEMOGLOBIN 10.3 g/dL (12.0-15.5); MEAN CORPUSCULAR HEMOGLOBIN 31.5 pg (27.0-33.4); MEAN CORPUSCULAR HGB CONC 35.9 g/dL (32.0-36.0); MEAN CORPUSCULAR VOLUME 88 fl (80-97); PLATELET COUNT 381 10^3/uL (150-450); RED BLOOD COUNT 3.28 10^6/uL (3.72-5.28); RED CELL DISTRIBUTION WIDTH 21.7 % (11.5-14.0); RETICULOCYTE COUNT (AUTO) 8.85 % (0.66-2.85)
[2019-10-04] MEDS ORDERED: HYDROMORPHONE HCL INJ/PF 2 MG/ML AMPULE IV ONE ×2 (10:47→11:45)
[2019-10-04] MEDS ORDERED: DIPHENHYDRAMINE HCL 50 MG/ML VIAL IV ONE ×2 (10:47→11:54)
[2019-10-04 10:52] LABS: ALBUMIN 4.4 g/dL (3.5-5.0); ALKALINE PHOSPHATASE 103 U/L (38-126); ANION GAP 6 (5-19); ASPARTATE AMINO TRANSFERASE 35 U/L (14-36); BILIRUBIN,TOTAL 2.8 mg/dL (0.2-1.3); BLOOD UREA NITROGEN 4 mg/dL (7-20); CALCIUM 9.5 mg/dL (8.4-10.2); CARBON DIOXIDE 30 mmol/L (22-30); CHLORIDE 99 mmol/L (98-107); GLUCOSE 117 mg/dL (75-110); POTASSIUM 3.9 mmol/L (3.6-5.0); TOTAL PROTEIN 7.8 g/dL (6.3-8.2)
[2019-10-04 11:21] LABS: ABSOLUTE LYMPHOCYTES# (MANUAL) 3.8 10^3/uL (0.5-4.7); ABSOLUTE MONOCYTES # (MANUAL) 1.3 10^3/uL (0.1-1.4); ANISOCYTOSIS 3+; BASOPHILS % (MANUAL) 0 % (0-2); EOSINOPHILS % (MANUAL) 1 % (0-6); LYMPHOCYTES % (MANUAL) 24 % (13-45); MONOCYTES % (MANUAL) 8 % (3-13); NUCLEATED RED BLOOD CELLS 4 /100 WBC (0); PLATELET COMMENT ADEQUATE; POIKILOCYTOSIS 3+; POLYCHROMASIA 1+; SEGMENTED NEUTROPHILS % (MAN) 67 % (42-78); SICKLE RED CELLS 2+; TARGET CELLS 1+; TOTAL CELLS COUNTED 100
--- NOTE | 2019-10-04 11:29 | RADIOLOGY REPORT (SQ) ---
EXAM DESCRIPTION: CHEST SINGLE VIEW IMAGES COMPLETED DATE/TIME: 10/04/2019 11:01 am REASON FOR STUDY: Sickle cell crisis, pain with breathing, SOB COMPARISON: 08/12/2019 FINDINGS: One-view chest AP portable upright. Bibasilar subsegmental volume loss. Mild vascular congestion. Small effusions. Consistent with CHF . No pneumothorax. Stable cardiomediastinal silhouette. Cardiomegaly. TECHNICAL DOCUMENTATION: JOB ID: [id number] Reading location - IP/workstation name: [email or web address]
[2019-10-04 12:11] LABS: APPEARANCE,URINE CLEAR; BILIRUBIN,URINE NEGATIVE (NEGATIVE); COLOR,URINE YELLOW; GLUCOSE, URINE NEGATIVE (NEGATIVE); KETONES,URINE NEGATIVE (NEGATIVE); LEUKOCYTE ESTERASE,URINE TRACE (NEGATIVE); NITRITE,URINE NEGATIVE (NEGATIVE); PROTEIN,URINE 30 mg/dL (NEGATIVE); URINE SPECIFIC GRAVITY 1.006
[2019-10-04] MEDS ORDERED: LEVOFLOXACIN 750 MG/D5W RTU 750 MG/150 ML RTUPB IV ONE (12:59)
[2019-10-04] MEDS ORDERED: KETOROLAC TROMETHAMINE INJ/PF 30 MG/1 ML SDV IV PRN (13:14)
[2019-10-04] MEDS ORDERED: OXYCODONE HCL IR 5 MG TABLET PO PRN (13:15)
[2019-10-04] MEDS ORDERED: LIDOCAINE 5% (700 MG) TRANSDERMAL ADH..PATCH TP SCH (13:15)
[2019-10-04] MEDS ORDERED: DIPHENHYDRAMINE HCL 25 MG CAPSULE PO PRN (13:16)
[2019-10-04] MEDS ORDERED: ACETAMINOPHEN 325 MG TABLET PO PRN (13:16)
[2019-10-04] MEDS ORDERED: ONDANSETRON HCL INJ/PF 4 MG/2 ML SDV IV PRN (13:17)
[2019-10-04] MEDS ORDERED: PROMETHAZINE HCL 25 MG SUPP.RECT PR PRN (13:17)
[2019-10-04] MEDS ORDERED: ALBUTEROL SULFATE HFA (90 MCG/PUFF) 8 GM MDI IH PRN (13:25)
[2019-10-04] MEDS ORDERED: NORMAL SALINE 1000 ML 1,000 ML IV PRN (13:25)
[2019-10-04] MEDS ORDERED: GUAIFENESIN SYRP 200 MG/10 ML UDC PO PRN (13:25)
[2019-10-04] MEDS ORDERED: ALBUTEROL SULFATE 0.083% NEB 2.5 MG/3 ML AMPUL NEB PRN (13:52)
[2019-10-04] MEDS ORDERED: LEVALBUTEROL HCL NEB 1.25 MG/3 ML AMPUL NEB SCH (14:00)
[2019-10-04] MEDS ORDERED: OXYCODONE HCL IR 5 MG TABLET PO SCH ×2 (14:00→15:00)
[2019-10-04] MEDS ORDERED: HYDROXYUREA 500 MG CAPSULE PO SCH (14:00)
[2019-10-04] MEDS ORDERED: HEPARIN SOD (PORCINE) 5,000 UNIT/ML 1 ML VIAL SUBCUT SCH (14:00)
[2019-10-04] MEDS ORDERED: AZITHROMYCIN 250 MG TABLET PO ONE (14:18)
[2019-10-04] MEDS ORDERED: HYDRALAZINE HCL INJ/PF 20 MG/1 ML SDV IV PRN (14:19)
--- NOTE | 2019-10-04 14:36 | PDOC H&P ---
History of Present Illness Admission Date/PCP: 10/04/19 13:50 AMALIA OROZCO PA-C Patient complains of: Back pain, generalized body aches, shortness of breath History of Present Illness: PRANAV JOINER is a 29 year old female with a past medical history of sickle cell disease, hypertension, depression, and opiate dependent chronic pain who presented to the emergency department today with a complaint of uncontrolled pain despite utilizing her prescribed medications, and and shortness of breath. Evaluation in the emergency department revealed low-grade temperature (99.6) tachycardia (heart rate 107), hypertension, and 97% on room air. She was found to have leukocytosis with WBCs of 16, baseline hemoglobin of 10.3, mildly elevated reticulocytes and reticulocyte count (appears to be mid-range compared to the patient's prior labs), elevated d-dimer to 2.29 (low suspicion of PE; this test would be elevated in patient with sickle cell), unremarkable chem istry, proBNP of 271, negative serum beta hCG, urinalysis negative for UTI, and chest x-ray that the radiologist read as mild vascular congestion and small effusions consistent with CHF, however, both the ED providers and my personal review, more consistent for bibasilar pneumonia worse on right. She is referred to the hospitalist service for admission and management of the above-stated complaints and findings. Past Medical History Cardiac Medical History: Reports: Hypertension, Heart Murmur Denies: Coronary Artery Disease, Myocardial Infarction Pulmonary Medical History: Reports: Asthma, Pneumonia - 2017 Denies: Bronchitis, Chronic Obstructive Pulmonary Disease (COPD), Tuberculosis EENT Medical History: Reports: None Neurological Medical History: Reports: Migraine, Seizures Endocrine Medical History: Reports: None Renal/ Medical History: Reports: None Malignancy Medical History: Reports: None GI Medical History: Reports: Gastroesophageal Reflux Disease Denies: Cirrhosis, Hepatitis Musculoskeltal Medical History: Reports: None Skin Medical History: Reports: None Psychiatric Medical History: Reports: Depression Hematology: Reports: Anemia, Sickle Cell Disease Denies: Bleeding Tendencies Infectious Medical History: Reports: None Past Surgical History Past Surgical History: Reports: Adenoidectomy, Cholecystectomy, Tonsillectomy, Other - Port placement 2 and removal for infection Denies: Hysterectomy, Pacemaker Social History Information Source: Patient Lives with: Family Smoking Status: Never Smoker Electronic Cigarette use?: No Frequency of Alcohol Use: None Hx Recreational Drug Use: No Drugs: None Hx Prescription Drug Abuse: No - Advance Directive Resuscitation Status: Full Code Family History Family History: None, DM, Malignancy - Brother with Hodgkin's lymphoma. Maternal grandfather with lung cancer., Other - sickle trait in Mother and Father Parental Family History Reviewed: Yes Children Family History Reviewed: Yes Sibling(s) Family History Reviewed.: Yes Medication/Allergy Home Medications: Folic Acid 5 mg PO DAILY 07/11/19 Oxycodone HCl 15 mg PO Q3HP PRN 07/11/19 Nifedipine [Procardia XL 30 mg Tablet] 30 mg PO DAILY 08/30/19 Amitriptyline HCl [Elavil 25 mg Tablet] 25 mg PO DAILY 10/04/19 Amitriptyline HCl [Elavil 25 mg Tablet] 50 mg PO QHS 10/04/19 Amlodipine Besylate [Norvasc 5 mg Tablet] 5 mg PO DAILY 10/04/19 Butalb/Acetaminophen/Caffeine [Fioricet (50-325-40 mg) Tablet] 1 tab PO Q4HP PRN MDD 6 TABS 10/04/19 Cetirizine HCl [Zyrtec 10 mg Tablet] 10 mg PO DAILY 10/04/19 Hydroxyurea 1,500 mg PO SUTUTHSA@1000 10/04/19 Hydroxyurea 2,000 mg PO MOWEFR@1000 10/04/19 Allergies/Adverse Reactions: ceftriaxone sodium [From Rocephin] Allergy (Verified 10/04/19 09:53) Cephalosporins Allergy (Verified 10/04/19 09:53) milk [Milk] Allergy (Verified 10/04/19 09:53) Shellfish * [Shellfish] Allergy (Verified 10/04/19 09:53) wheat [Wheat] Allergy (Verified 10/04/19 09:53) Review of Systems Constitutional: PRESENT: fatigue, fever(s). ABSENT: chills, headache(s), weight gain, weight loss Eyes: ABSENT: visual disturbances Ears: ABSENT: hearing changes Cardiovascular: ABSENT: chest pain, dyspnea on exertion, edema, orthropnea, palpitations Respiratory: PRESENT: dyspnea, other - Pleurisy. ABSENT: cough, hemoptysis Gastrointestinal: PRESENT: nausea, vomiting. ABSENT: abdominal pain, constipation, diarrhea, hematemesis, hematochezia Genitourinary: ABSENT: dysuria, hematuria Musculoskeletal: PRESENT: other - Generalized pain. ABSENT: joint swelling Integumentary: ABSENT: rash, wounds Neurological: ABSENT: abnormal gait, abnormal speech, confusion, dizziness, focal weakness, syncope Psychiatric: ABSENT: anxiety, depression, homidical ideation, suicidal ideation Endocrine: ABSENT: cold intolerance, heat intolerance, polydipsia, polyuria Hematologic/Lymphatic: ABSENT: easy bleeding, easy bruising Physical Exam Vital Signs: Temp Pulse Resp BP Pulse Ox 99.6 F 107 H 20 145/96 H 97 10/04/19 12:42 10/04/19 12:42 10/04/19 09:55 10/04/19 12:42 10/04/19 12:42 Intake & Output 10/03/19 10/04/19 10/05/19 06:59 06:59 06:59 Intake Total 1000 Balance 1000 Weight 63.6 kg General appearance: PRESENT: no acute distress, disheveled, well-developed, well-nourished Head exam: PRESENT: atraumatic, normocephalic Eye exam: PRESENT: conjunctiva pink, EOMI, PERRLA. ABSENT: scleral icterus Mouth exam: PRESENT: moist, tongue midline Respiratory exam: PRESENT: chest wall tenderness - With deep inspiration/cough, rhonchi, symmetrical, unlabored, wheezes, other - 98% on room air. ABSENT: rales Cardiovascular exam: PRESENT: RRR, tachycardia. ABSENT: diastolic murmur, rubs, systolic murmur Vascular exam: PRESENT: normal capillary refill GI/Abdominal exam: PRESENT: normal bowel sounds, soft. ABSENT: distended, guarding, mass, organolmegaly, rebound, tenderness Rectal exam: PRESENT: deferred Extremities exam: PRESENT: full ROM. ABSENT: calf tenderness, clubbing, pedal edema Neurological exam: PRESENT: alert, awake, oriented to person, oriented to place, oriented to time, oriented to situation, CN II-XII grossly intact. ABSENT: motor sensory deficit Psychiatric exam: PRESENT: agitated, appropriate affect, normal mood. ABSENT: homicidal ideation, suicidal ideation Skin exam: PRESENT: dry, intact, warm. ABSENT: cyanosis, rash Results Laboratory Results: 10/04/19 10:15 10/04/19 10:15 10/04/19 10/04/19 10/04/19 10:15 10:15 11:46 WBC 16.0 H RBC 3.28 L Hgb 10.3 L Hct 28.8 L MCV 88 MCH 31.5 MCHC 35.9 RDW 21.7 H Plt Count 381 Seg Neutrophils % Not Reportable Retic Count (auto) 8.85 H Sodium 135.3 L Potassium 3.9 Chloride 99 Carbon Dioxide 30 Anion Gap 6 BUN 4 L Creatinine 0.45 L Est GFR ( Amer) > 60 Glucose 117 H Calcium 9.5 Total Bilirubin 2.8 H AST 35 Alkaline Phosphatase 103 Total Protein 7.8 Albumin 4.4 Urine Color YELLOW Urine Appearance CLEAR Urine pH 7.0 Ur Specific [place] 1.006 Urine Protein 30 H Urine Glucose (UA) NEGATIVE Urine Ketones NEGATIVE Urine Blood MODERATE H Urine Nitrite NEGATIVE Ur Leukocyte Esterase TRACE H Urine WBC (Auto) 7 Urine RBC (Auto) 1 10/04/19 10:15 NT-Pro-B Natriuret Pep 271 H Assessment and Plan - Diagnosis (1) Right lower lobe pulmonary infiltrate Is this a current diagnosis for this admission?: Yes Plan: Community acquired pneumonia. (+) temp, tachycardia, tachypnea, leukocytosis, rhonchi/wheezing, and pleurisy. CXR shows right lower lobe infiltrate. Radiologist concerned about possible CHF; proBNP nml. Discussed with Dr. Hill; will follow up with CT. Blood cultures are pending. Sputum culture pending Patient had an allergic reaction to IV Levaquin. Has cephalosporin allergy. Reviewed UpToDate; will place on Augmentin and Azithromycin for treatment of CAP utilizing oral medications. Will provide supplemental oxygen as needed. Scheduled and as needed nebulizer treatments. Scheduled Mucinex; Robitussin as needed. Encourage pulmonary toilet with IS, Flutter valve, and ambulation. (2) Sickle cell anemia Is this a current diagnosis for this admission?: Yes Plan: Patient reports generalized bodyaches with most severe pain to her posterior right chest wall; consistent with pleurisy. It is not clear that the patient is in sickle cell crisis but rather experiencing worsening malaise/myalgia related to her acute respiratory infection. CXR was reviewed by the ED provider with Dr. Cornelius; no concern for acute chest at this time. Continue her nml oxycodone regimen of 15 mg q3 hrs. Continue home dose hydroxyurea. Generous IV fluids. Supplemental oxygen. P.o. oxycodone 5 mg every 6 hours for breakthrough pain. IV Toradol, Lidoderm patches, Tylenol, and heating pad for comfort. Management of PNA as above. (3) Hypertension Qualifiers: Hypertension type: essential hypertension Qualified Code(s): I10 - Essential (primary) hypertension Is this a current diagnosis for this admission?: Yes Plan: We will continue home medication regiment once reconciled. IV hydralazine as needed for blood pressure control. Cardiac diet. (4) Opiate dependence, continuous Is this a current diagnosis for this admission?: Yes Plan: The patient presented a recently filled prescription bottle; confirm she takes oxycodone 15 mg every 3 hours. We will continue her home medication regiment. Additionally, will provide oxycodone 5 mg every 4 hours as needed for breakthrough pain. - Time Time Spent with patient: 35 or more minutes Medications reviewed and adjusted accordingly: Yes Anticipated discharge: Home Within: within 48 hours
[2019-10-04] MEDS ORDERED: CEFTRIAXONE 1 GM/D5W RTU 1 GM/50 ML RTUPB IV SCH (15:00)
--- NOTE | 2019-10-04 15:16 | Left Against Medical Advice ---
Against Medical Advice Admission Date/Time: 10/04/19 13:50 Primary Care Provider: AMALIA OROZCO PA-C Date of Patient Emigration: 10/04/19 - Diagnosis: (1) Right lower lobe pulmonary infiltrate Is this a current diagnosis for this admission?: Yes (2) Sickle cell anemia Is this a current diagnosis for this admission?: Yes (3) Hypertension Is this a current diagnosis for this admission?: Yes (4) Opiate dependence, continuous Is this a current diagnosis for this admission?: Yes - Summary: Summary: Please see Admission and Progress Notes as well. PRANAV JOINER is a 29 F, who LEFT AGAINST MEDICAL ADVICE. The Patient was admitted on 10/04/19 13:50. Patient left AGAINST MEDICAL ADVICE from the emergency department prior to arriving to her room on the floor. As I am concerned that the patient's community-acquired pneumonia will worsen without treatment and possibly precipitate a sickle cell crisis, I have sent prescriptions for amoxicillin, azithromycin, albuterol inhaler, Lidoderm patch, and p.o. Dilaudid 2 mg tabs #12 the patient's pharmacy of choice. Nursing has instructed the patient to drink plenty of water, follow-up with Dr. Cornelius tomorrow, and return to the emergency department as needed for concerning symptoms.
[2019-10-04 15:34] VITALS: BP 117/84
[2019-10-04] MEDS ORDERED: AZITHROMYCIN 500 MG in DEXTROSE 5%-WATER 250 ML IV SCH (16:00)
[2019-10-04] MEDS ORDERED: AMOXICILLIN TR/POT CLAVULANATE 875-125 MG TAB PO SCH (22:00)
[2019-10-04] MEDS ORDERED: GUAIFENESIN 600 MG TABLET.SA PO SCH (22:00)
[2019-10-05] MEDS ORDERED: PANTOPRAZOLE SODIUM 20 MG TABLET.DR PO SCH (06:00)
[2019-10-05] MEDS ORDERED: FOLIC ACID 1 MG TABLET PO SCH (10:00)
[2019-10-05] MEDS ORDERED: AMITRIPTYLINE HCL 25 MG TABLET PO SCH (10:00)
[2019-10-05] MEDS ORDERED: AZITHROMYCIN 250 MG TABLET PO SCH (10:00)
[2019-10-05] MEDS ORDERED: LEVOFLOXACIN 750 MG TABLET PO SCH (10:00)
== END 2019-10-04 15:33 | disposition left against medical advice (07) ==
LOC: ER 09:47 → EH 13:50
PROVIDERS: ADMIT Internal Medicine; ATTEND Internal Medicine
DX: J18.9 Pneumonia, unspecified organism (principal); D57.1 Sickle-cell disease without crisis; I10 Essential (primary) hypertension; M54.9 Dorsalgia, unspecified; F11.20 Opioid dependence, uncomplicated; F32.9 Major depressive disorder, single episode, unspecified; R09.1 Pleurisy; R79.89 Other specified abnormal findings of blood chemistry; M25.50 Pain in unspecified joint; G89.4 Chronic pain syndrome; M79.10 Myalgia, unspecified site; J45.909 Unspecified asthma, uncomplicated; Z87.01 Personal history of pneumonia (recurrent); Z80.1 Family history of malignant neoplasm of trachea, bronchus and lung; Z79.899 Other long term (current) drug therapy; Z88.1 Allergy status to other antibiotic agents; Z90.49 Acquired absence of other specified parts of digestive tract; Z87.59 Personal history of other complications of pregnancy, childbirth and the puerperium; Z80.7 Family history of other malignant neoplasms of lymphoid, hematopoietic and related tissues
CPT/HCPCS: 36415; 84702; 85025; 85045; 80053; 81001; 85379; 83880; 71045; Q0144; J3490 ×3; J1200; J1885; J1170; J2405; J7030; J1956; 94640; 96361; 96374; 96375; 96376; 99285

== ENCOUNTER → 2019-10-05 | Outpatient (CLI) | payer MEDICAID ==
[~2019-10-05] MED LIST changes: +DIPHENHYDRAMINE HCL 50 MG/ML VIAL ONE; +HYDROMORPHONE HCL INJ/PF 2 MG/ML AMPULE IV PRN; +HYDROMORPHONE HCL INJ/PF 2 MG/ML AMPULE ONE; +NORMAL SALINE 1000 ML 1,000 ML IV PRN; +ONDANSETRON HCL INJ/PF 4 MG/2 ML SDV ONE
[2019-10-05 13:01] VITALS: BP 147/95
== END ==
LOC: II 12:32
PROVIDERS: ATTEND Internal Medicine
DX: D57.00 Hb-SS disease with crisis, unspecified (principal); E86.0 Dehydration; R11.0 Nausea; R52 Pain, unspecified
CPT/HCPCS: 96374; 96375; 96361; J1200; J1170; J2405; 96365; 96366

== ENCOUNTER 2019-10-06 09:08 | Outpatient (CLI) | payer MEDICAID ==
[2019-10-06 09:20] VITALS: BP 146/76
[2019-10-06] MEDS ORDERED: DIPHENHYDRAMINE HCL 50 MG/ML VIAL IV PRN (09:26)
[2019-10-06] MEDS ORDERED: NORMAL SALINE 1000 ML 1,000 ML IV PRN (09:26)
[2019-10-06] MEDS ORDERED: ONDANSETRON HCL INJ/PF 4 MG/2 ML SDV IV PRN (09:26)
[2019-10-06] MEDS ORDERED: HYDROMORPHONE HCL INJ/PF 2 MG/ML AMPULE IV PRN (09:28)
[2019-10-06] MEDS ORDERED: HYDROMORPHONE HCL INJ/PF 2 MG/ML AMPULE ONE (09:43)
[2019-10-06] MEDS ORDERED: ONDANSETRON HCL INJ/PF 4 MG/2 ML SDV ONE (09:43)
[2019-10-06] MEDS ORDERED: DIPHENHYDRAMINE HCL 50 MG/ML VIAL ONE (09:43)
== END 2019-10-06 11:15 | disposition home or self-care (01) ==
LOC: II 09:08 → 5TH 09:10 → II 11:15
PROVIDERS: ATTEND Internal Medicine
DX: D57.00 Hb-SS disease with crisis, unspecified (principal)
CPT/HCPCS: 96374; 96375; 96361; J1200; J1170; J2405

== ENCOUNTER 2019-10-07 12:50 | Outpatient (CLI) | payer MEDICAID ==
[2019-10-07] MEDS ORDERED: DIPHENHYDRAMINE HCL 50 MG/ML VIAL ONE (13:00)
[2019-10-07] MEDS ORDERED: HYDROMORPHONE HCL INJ/PF 2 MG/ML AMPULE ONE (13:00)
[2019-10-07] MEDS ORDERED: ONDANSETRON HCL INJ/PF 4 MG/2 ML SDV ONE (13:00)
[2019-10-07 13:06] VITALS: BP 129/70
[2019-10-07] MEDS ORDERED: DIPHENHYDRAMINE HCL 50 MG/ML VIAL IV PRN (13:07)
[2019-10-07] MEDS ORDERED: ONDANSETRON HCL INJ/PF 4 MG/2 ML SDV IV PRN (13:07)
[2019-10-07] MEDS ORDERED: HYDROMORPHONE HCL INJ/PF 2 MG/ML AMPULE IV PRN (13:08)
[2019-10-07] MEDS ORDERED: NORMAL SALINE 1000 ML 1,000 ML IV PRN (13:08)
== END 2019-10-07 14:53 | disposition home or self-care (01) ==
LOC: II 12:50 → 5TH 12:51 → II 14:53
PROVIDERS: ATTEND Internal Medicine
DX: D57.00 Hb-SS disease with crisis, unspecified (principal); E86.0 Dehydration; R11.0 Nausea; R52 Pain, unspecified
CPT/HCPCS: 96374; 96375; 96361; J1200; J1170; J2405

== ENCOUNTER 2019-10-08 09:58 | Outpatient (CLI) | payer MEDICAID ==
[2019-10-08] MEDS ORDERED: DIPHENHYDRAMINE HCL 50 MG/ML VIAL IV PRN (10:20)
[2019-10-08] MEDS ORDERED: ONDANSETRON HCL INJ/PF 4 MG/2 ML SDV IV PRN (10:21)
[2019-10-08] MEDS ORDERED: NORMAL SALINE 1000 ML 1,000 ML IV PRN (10:21)
[2019-10-08] MEDS ORDERED: HYDROMORPHONE HCL INJ/PF 2 MG/ML AMPULE IV PRN (10:23)
[2019-10-08 10:27] VITALS: BP 128/74
[2019-10-08] MEDS ORDERED: DIPHENHYDRAMINE HCL 50 MG/ML VIAL ONE (10:28)
[2019-10-08] MEDS ORDERED: HYDROMORPHONE HCL INJ/PF 2 MG/ML AMPULE ONE (10:29)
[2019-10-08] MEDS ORDERED: ONDANSETRON HCL INJ/PF 4 MG/2 ML SDV ONE (10:29)
== END 2019-10-08 12:00 | disposition home or self-care (01) ==
LOC: II 09:58 → 5TH 10:00 → II 12:00
PROVIDERS: ATTEND Internal Medicine
DX: D57.00 Hb-SS disease with crisis, unspecified (principal); E86.0 Dehydration; R11.0 Nausea; R52 Pain, unspecified
CPT/HCPCS: 96374; 96375; 96361; J1200; J1170; J2405

== ENCOUNTER 2019-10-14 13:25 | Outpatient (CLI) | payer MEDICAID ==
[2019-10-14] MEDS ORDERED: DIPHENHYDRAMINE HCL 50 MG/ML VIAL IV PRN ×2 (14:08→14:15)
[2019-10-14] MEDS ORDERED: ONDANSETRON HCL INJ/PF 4 MG/2 ML SDV IV PRN (14:09)
[2019-10-14] MEDS ORDERED: NORMAL SALINE 1000 ML 1,000 ML IV PRN (14:10)
[2019-10-14] MEDS ORDERED: HYDROMORPHONE HCL INJ/PF 2 MG/ML AMPULE IV PRN (14:10)
[2019-10-14 14:20] VITALS: BP 129/74
== END 2019-10-14 15:37 | disposition home or self-care (01) ==
LOC: II 13:25 → 5TH 13:35 → II 15:37
PROVIDERS: ATTEND Internal Medicine
DX: D57.00 Hb-SS disease with crisis, unspecified (principal); E86.0 Dehydration; R11.0 Nausea; R52 Pain, unspecified
CPT/HCPCS: 96374; 96375; 96361; J1200; J1170; J2405

== ENCOUNTER 2019-10-16 10:19 | Outpatient (CLI) | payer MEDICAID ==
[~2019-10-16 10:19] MED LIST changes: -DIPHENHYDRAMINE HCL 50 MG/ML VIAL ONE; -HYDROMORPHONE HCL INJ/PF 2 MG/ML AMPULE ONE; -ONDANSETRON HCL INJ/PF 4 MG/2 ML SDV ONE
[2019-10-16 10:40] VITALS: BP 127/85
== END 2019-10-16 12:20 | disposition home or self-care (01) ==
LOC: II 10:19 → 5TH 10:20 → II 12:20
PROVIDERS: ATTEND Internal Medicine
DX: D57.00 Hb-SS disease with crisis, unspecified (principal); E86.0 Dehydration; R11.0 Nausea; R52 Pain, unspecified
CPT/HCPCS: 96374; 96375; 96361; J1200; J1170; J2405

== ENCOUNTER 2019-10-20 12:13 | Outpatient (CLI) | payer MEDICAID ==
[2019-10-20 13:37] VITALS: BP 135/94
[2019-10-20] MEDS ORDERED: ONDANSETRON HCL INJ/PF 4 MG/2 ML SDV ONE (15:04)
[2019-10-20] MEDS ORDERED: FENTANYL CITRATE INJ/PF 100 MCG/2 ML AMPUL ONE (15:04)
[2019-10-20] MEDS ORDERED: KETOROLAC TROMETHAMINE 60 MG/2 ML SDV ONE (15:04)
[2019-10-20] MEDS ORDERED: MIDAZOLAM 2 MG/2 ML INJ ONE (15:04)
[2019-10-20] MEDS ORDERED: PROPOFOL INJ 200 MG/20 ML VIAL IV ONE (15:05)
[2019-10-20] MEDS ORDERED: DEXMEDETOMIDINE INJ 80 MCG/20 ML VIAL IV ONE (15:05)
== END 2019-10-20 14:10 | disposition home or self-care (01) ==
LOC: II 12:13 → 5TH 12:16 → II 14:10
PROVIDERS: ATTEND Internal Medicine
DX: D57.00 Hb-SS disease with crisis, unspecified (principal); E86.0 Dehydration; R11.0 Nausea; R52 Pain, unspecified
CPT/HCPCS: 96374; 96375; 96361; J2250; J1200; J1885; J3010; J1170; J2405; J2704; J3490

== ENCOUNTER 2019-10-20 14:02 | Day surgery (SDC) | payer MEDICAID ==
[~2019-10-20 14:02] MED LIST changes: -DIPHENHYDRAMINE HCL 50 MG/ML VIAL IV PRN; +DOXYCYCLINE HYCLATE 100 MG in DEXTROSE 5%-WATER 250 ML IV PRN; +GLYCOPYRROLATE 1 MG/5 ML VIAL ONE; -HYDROMORPHONE HCL INJ/PF 2 MG/ML AMPULE IV PRN; -NORMAL SALINE 1000 ML 1,000 ML IV PRN; -ONDANSETRON HCL INJ/PF 4 MG/2 ML SDV IV PRN
[2019-10-20 14:41] LABS: HEMATOCRIT 31.2 % (36.0-47.0); HEMOGLOBIN 10.7 g/dL (12.0-15.5); MEAN CORPUSCULAR HEMOGLOBIN 30.7 pg (27.0-33.4); MEAN CORPUSCULAR HGB CONC 34.3 g/dL (32.0-36.0); MEAN CORPUSCULAR VOLUME 90 fl (80-97); PLATELET COUNT 556 10^3/uL (150-450); RED BLOOD COUNT 3.48 10^6/uL (3.72-5.28); RED CELL DISTRIBUTION WIDTH 20.5 % (11.5-14.0); WHITE BLOOD COUNT 8.8 10^3/uL (4.0-10.5)
[2019-10-20] MEDS: FENTANYL CITRATE INJ/PF 100 MCG/2 ML AMPUL ONE ×2 (16:11→16:16)
[2019-10-20] MEDS ORDERED: PROMETHAZINE HCL INJ 25 MG/1 ML VIAL IV PRN ×2 (16:14)
[2019-10-20] MEDS ORDERED: ONDANSETRON HCL INJ/PF 4 MG/2 ML SDV IV PRN (16:14)
[2019-10-20] MEDS ORDERED: DIPHENHYDRAMINE HCL 50 MG/ML VIAL IV PRN (16:14)
[2019-10-20] MEDS ORDERED: MORPHINE SULFATE 10 MG/ML INJ IV PRN (16:14)
[2019-10-20] MEDS ORDERED: OXYCODONE-ACETAMINOPHEN 5-325 MG TABLET PO PRN ×2 (16:14)
[2019-10-20] MEDS ORDERED: MEPERIDINE HCL/PF INJ 25 MG/1 ML DISP.SYRIN IV PRN (16:14)
[2019-10-20] MEDS ORDERED: FENTANYL CITRATE INJ/PF 100 MCG/2 ML AMPUL IV PRN ×3 (16:14)
--- NOTE | 2019-10-20 16:14 | Operative Report ---
Operative Report DATE OF SURGERY: 10/20/19 PREOPERATIVE DIAGNOSIS: Post delivery with retained products of concept ion POSTOPERATIVE DIAGNOSIS: Same OPERATION: Suction D&C SURGEON: JR ADAMSON ANESTHESIA: LMAC TISSUE REMOVED OR ALTERED: POC ESTIMATED BLOOD LOSS: 10 cc or less PROCEDURE: The patient was taken to the Operating Room where general anesthesia was obtained without difficulty. She was prepped and draped in the normal sterile fashion in the dorsal lithotomy position. Exam under anesthesia was performed and noted above. A speculum was placed in the vagina. The anterior cervix was grasped with a single-tooth tenaculum and the uterus sounded to [] after paracervical block was performed with 8 mL of 1% lidocaine with epinephrine. The cervix was noted to be closed at the beginning of the procedure. Sequential dilators were then used to dilate the cervix to accommodate the the 8 mm suction curet curved. The 8 mm curved suction curet was gently advanced in the usual fashion and good return of tissue. The suction device was then activated and the curet rotated to clear the uterus of the products of conception. A sharp curettage was then performed. The suction device was then gently reintroduced and activated and the curet rotated to clear the uterus of conception which was loosened with recent sharp curettage. The sharp curettage was then performed again until a gritty texture was noted and the cavity was felt to be empty of further tissue. At this time there was minimal bleeding noted from the cervix. All instruments were removed from the patient's cervix and vagina. Sponge lap needle and instrument counts are correct 2. Doxycycline 100 mg IV was given perioperatively. The patient tolerated the procedure well and was taken to the recovery area awake and in stable condition.
[2019-10-20] MEDS ORDERED: POLYETHYLENE GLYCOL 3350 POWDER 17 GM/1 PACKET PO PRN (16:41)
[2019-10-20] MEDS ORDERED: SENNOSIDES/DOCUSATE 8.6-50 MG 1 EACH TABLET PO PRN (16:42)
[2019-10-20] MEDS: HYDROMORPHONE HCL INJ/PF 2 MG/ML AMPULE IV PRN ×3 (17:48→23:07)
[2019-10-20] MEDS: DIPHENHYDRAMINE HCL 50 MG/ML VIAL IV PRN (23:06)
[2019-10-20] MEDS: ONDANSETRON HCL INJ/PF 4 MG/2 ML SDV IV PRN (23:06)
[2019-10-20] MEDS: NORMAL SALINE 1000 ML 1,000 ML IV PRN (23:24)
[2019-10-21] MEDS: HYDROMORPHONE HCL INJ/PF 2 MG/ML AMPULE IV PRN ×4 (01:42→09:08)
[2019-10-21] MEDS: DIPHENHYDRAMINE HCL 50 MG/ML VIAL IV PRN (07:03)
--- NOTE | 2019-10-21 08:49 | PDOC PROGRESS REPORT ---
Subjective Progress Note for:: 10/21/19 Subjective:: Reviewed chart, pt was not seen face to face given COVID restrictions, yesterday pt had D/C and I gave orders post op for pain medications, IVF, antiemetics, antihistamines. This am nursing notes that pt still in pain related to sickle pain but also cramping post op. Recommended continued pain meds per orders, IVF per orders until pt ready to D/C per [employer]. Then she can continue IVF, pain meds as outpt. Will follow by chart review while admitted and take care of pain orders. Reason For Visit: D&C Physical Exam Vital Signs: Temp Pulse Resp BP Pulse Ox 98.1 F 58 L 18 129/75 H 98 10/21/19 07:57 10/21/19 07:57 10/21/19 07:57 10/21/19 07:57 10/21/19 07:57 Intake & Output 10/20/19 10/21/19 10/22/19 06:59 06:59 06:59 Intake Total 620 Output Total 705 Balance -85 Weight 59.87 kg Results Laboratory Results: 10/20/19 14:24 10/20/19 10/20/19 14:24 14:24 WBC 8.8 RBC 3.48 L Hgb 10.7 L Hct 31.2 L MCV 90 MCH 30.7 MCHC 34.3 RDW 20.5 H Plt Count 556 H Blood Type O POSITIVE Antibody Screen NEGATIVE Assessment & Plan - Time Time Spent with patient: 15-24 minutes
[2019-10-21] MEDS: ONDANSETRON HCL INJ/PF 4 MG/2 ML SDV IV PRN (09:08)
[2019-10-21] MEDS: NORMAL SALINE 1000 ML 1,000 ML IV PRN (09:15)
--- NOTE | 2019-10-21 09:53 | PDOC DISCHARGE SUMMARY ---
Impression - Admit/DC Date/PCP Admission Date/Primary Care Provider: AMALIA OROZCO PA-C Discharge Date: 10/21/19 - Discharge Diagnosis (1) Anemia Is this a current diagnosis for this admission?: Yes - Assessment Summary: The patient was admitted for a d and c. This was done yesterday and she was observed for possible sickle crisis. She is doing well today and wishes to go home. The purchasing associate is providing her pain medication. - Additional Information Resuscitation Status: Full Code Discharge Diet: As Tolerated Discharge Activity: Activity As Tolerated Referrals: AMALIA OROZCO PA-C [Primary Care Provider] - Home Medications: Folic Acid 1 mg PO DAILY 07/11/19 Oxycodone HCl 15 mg PO Q3HP PRN 07/11/19 Albuterol Sulfate [Ventolin Hfa 8 gm Mdi] 2 puff IH Q4HP PRN #1 inhaler 10/04/19 Amitriptyline HCl [Elavil 25 mg Tablet] 25 mg PO DAILY 10/04/19 Amitriptyline HCl [Elavil 25 mg Tablet] 50 mg PO QHS 10/04/19 Amlodipine Besylate [Norvasc 5 mg Tablet] 5 mg PO DAILY 10/04/19 Butalb/Acetaminophen/Caffeine [Fioricet (50-325-40 mg) Tablet] 1 tab PO Q4HP PRN MDD 6 TABS 10/04/19 Cetirizine HCl [Zyrtec 10 mg Tablet] 10 mg PO DAILY 10/04/19 Guaifenesin [Mucinex Sr 600 mg Tablet.sa] 600 mg PO Q12 #14 tablet.sa 10/04/19 Hydroxyurea 1,500 mg PO SUTUTHSA@1000 10/04/19 Hydroxyurea 2,000 mg PO MOWEFR@1000 10/04/19 Lidocaine [Lidoderm 5% (700 mg) Transdermal Patch] 1 patch TP DAILY #7 adh..patch 10/04/19 History of Present Illiness History of Present Illness: PRANAV JOINER is a 29 year old female Physical Exam - Physical Exam Vital Signs: Temp Pulse Resp BP Pulse Ox 98.1 F 58 L 18 129/75 H 98 10/21/19 07:57 10/21/19 07:57 10/21/19 07:57 10/21/19 07:57 10/21/19 07:57 Intake & Output 10/20/19 10/21/19 10/22/19 06:59 06:59 06:59 Intake Total 620 985 Output Total 705 Balance -85 985 Weight 59.87 kg Results Laboratory Results: WBC 8.8 10^3/uL (4.0-10.5) 10/20/19 14:24 RBC 3.48 10^6/uL (3.72-5.28) L 10/20/19 14:24 Hgb 10.7 g/dL (12.0-15.5) L 10/20/19 14:24 Hct 31.2 % (36.0-47.0) L 10/20/19 14:24 MCV 90 fl (80-97) 10/20/19 14:24 MCH 30.7 pg (27.0-33.4) 10/20/19 14:24 MCHC 34.3 g/dL (32.0-36.0) 10/20/19 14:24 RDW 20.5 % (11.5-14.0) H 10/20/19 14:24 Plt Count 556 10^3/uL (150-450) H 10/20/19 14:24 Beta HCG, Quant < 2.39 mIU/mL (0.0-6.15) 10/20/19 14:24 Total Beta HCG NEGATIVE (NEGATIVE) 10/20/19 14:24 Blood Type O POSITIVE 10/20/19 14:24 Antibody Screen NEGATIVE 10/20/19 14:24 Crossmatch See Detail 10/20/19 14:24 Stroke Is this a Stroke Patient?: No Acute Heart Failure - Is this a Heart Failure Patient?: No
[2019-10-21 10:19] VITALS: BP 152/84
== END 2019-10-21 10:48 | disposition home or self-care (01) ==
LOC: OROUT 14:02 → 2N 17:35 → OROUT 10-21 10:48
PROVIDERS: ATTEND Obstetrics & Gynecology Gynecology
DX: O02.1 Missed abortion (principal); Z32.02 Encounter for pregnancy test, result negative; Z39.2 Encounter for routine postpartum follow-up; Z87.891 Personal history of nicotine dependence; J45.909 Unspecified asthma, uncomplicated; I10 Essential (primary) hypertension; Z79.899 Other long term (current) drug therapy; Z88.8 Allergy status to other drugs, medicaments and biological substances; D57.1 Sickle-cell disease without crisis; R01.1 Cardiac murmur, unspecified
CPT/HCPCS: 86900; 86901; 36415; 87086; 86850; 84702; 85027; 87088; 86920; 88305 ×2; 01965; 59820; J1200 ×2; J3490 ×2; J3010; J1170 ×2; J2405 ×2; J7060; J7030 ×2; 1965

== ENCOUNTER 2019-10-22 11:24 | Outpatient (CLI) | payer MEDICAID ==
[~2019-10-22 11:24] MED LIST changes: +DIPHENHYDRAMINE HCL 50 MG/ML VIAL IV PRN; -DOXYCYCLINE HYCLATE 100 MG in DEXTROSE 5%-WATER 250 ML IV PRN; -GLYCOPYRROLATE 1 MG/5 ML VIAL ONE; +HYDROMORPHONE HCL INJ/PF 2 MG/ML AMPULE IV PRN; +NORMAL SALINE 1000 ML 1,000 ML IV PRN; +ONDANSETRON HCL INJ/PF 4 MG/2 ML SDV IV PRN
[2019-10-22 12:02] VITALS: BP 133/86
== END 2019-10-22 13:15 | disposition home or self-care (01) ==
LOC: II 11:24 → 5TH 11:26 → II 13:15
PROVIDERS: ATTEND Internal Medicine
DX: D57.00 Hb-SS disease with crisis, unspecified (principal); E86.0 Dehydration; R11.0 Nausea; R52 Pain, unspecified
CPT/HCPCS: 96374; 96375; 96361; J1200; J1170; J2405

== ENCOUNTER 2019-10-24 17:57 | Emergency (ER) | payer MEDICAID ==
[2019-10-24] MEDS ORDERED: NORMAL SALINE 1000 ML 1,000 ML IV ONE (18:22)
[2019-10-24] MEDS ORDERED: HYDROMORPHONE HCL INJ/PF 2 MG/ML AMPULE IV ONE ×3 (18:22→22:55)
--- NOTE | 2019-10-24 18:24 | ER Document Report ---
ED Medical Screen (RME) - General Chief Complaint: Sickle Cell Crisis Stated Complaint: MUSCLE PAIN Primary Care Provider: AMALIA OROZCO PA-C [Primary Care Provider] - Follow up as needed Notes: Patient is a 29-year-old -Luxembourger female with a past medical history of sickle cell disease with prior diagnosis of acute chest syndrome who presents to the emergency department the chief complaint of widespread body pain that began couple days ago. She states about 3 days ago she had a D&C. She states that seems to be going routinely, still having some mild spotting but feels it is unrelated. She states this feels typical of her sickle cell crises. She typically sees Dr. Fei esteban and receives fluids and Dilaudid. I have treated and performed a rapid initial assessment of this patient. A comprehensive ED assessment and evaluation of the patient, analysis of test results and completion of medical decision making process will be conducted by additional ED providers. PHYSICAL EXAMINATION: GENERAL: Well-appearing, well-nourished and in no acute distress. A&Ox4. Answers questions appropriately. TRAVEL OUTSIDE OF THE [place] IN LAST 30 DAYS: No - Related Data Allergies/Adverse Reactions: ceftriaxone sodium [From Rocephin] Allergy (Verified 10/04/19 09:53) Cephalosporins Allergy (Verified 10/04/19 09:53) milk [Milk] Allergy (Verified 10/04/19 09:53) Shellfish * [Shellfish] Allergy (Verified 10/04/19 09:53) wheat [Wheat] Allergy (Verified 10/04/19 09:53) Past Medical History - Social History Family history: None, Reviewed & Not Pertinent - Past Medical History Cardiac Medical History: Reports: Hx Hypertension, Hx Heart Murmur Denies: Hx Coronary Artery Disease, Hx Heart Attack Pulmonary Medical History: Reports: Hx Asthma, Hx Pneumonia - 10/03 Denies: Hx Bronchitis, Hx COPD, Hx Tuberculosis Neurological Medical History: Reports: Hx Migraine, Hx Seizures. Denies: Hx Cerebrovascular Accident Endocrine Medical History: Denies: Hx Diabetes Mellitus Type 1, Hx Diabetes Mellitus Type 2, Hx Hyperthyroidism, Hx Hypothyroidism Renal/ Medical History: Denies: Hx Peritoneal Dialysis GI Medical History: Reports: Hx Gastroesophageal Reflux Disease. Denies: Hx Cirrhosis, Hx Hepatitis Musculoskeltal Medical History: Denies Hx Arthritis, Denies Hx Fibromyalgia, Denies Hx Gout Skin Medical History: Denies Hx Eczema, Reports Hx MRSA, Denies Hx Psoriasis Psychiatric Medical History: Reports: Hx Depression Infectious Medical History: Denies: Hx Hepatitis Past Surgical History: Reports: Hx Adenoidectomy, Hx Cholecystectomy, Hx Oral Surgery - growth removed from under tongue, Hx Tonsillectomy, Other - Port placement 2 and removal for infection, multiple PICC lines, central l. Denies: Hx Hysterectomy, Hx Kidney (Renal Surgery), Hx Pacemaker - Immunizations Hx Diphtheria, Pertussis, Tetanus Vaccination: Yes Physical Exam - Vital signs Vitals: Temp Pulse Resp BP Pulse Ox 99.3 F 90 20 146/74 H 94 10/24/19 18:01 10/24/19 18:01 10/24/19 18:01 10/24/19 18:01 10/24/19 18:01 Course - Vital Signs Vital signs: Temp Pulse Resp BP Pulse Ox 99.3 F 90 20 146/74 H 94 10/24/19 18:01 10/24/19 18:01 10/24/19 18:01 10/24/19 18:01 10/24/19 18:01 Doctor's Discharge - Discharge Referrals: AMALIA OROZCO PA-C [Primary Care Provider] - Follow up as needed
--- NOTE | 2019-10-24 19:07 | RADIOLOGY REPORT (SQ) ---
EXAM DESCRIPTION: CHEST SINGLE VIEW IMAGES COMPLETED DATE/TIME: 10/24/2019 5:50 pm REASON FOR STUDY: cp COMPARISON: 10/04/2019 EXAM PARAMETERS: NUMBER OF VIEWS: One view. TECHNIQUE: Single frontal radiographic view of the chest acquired. RADIATION DOSE: NA LIMITATIONS: None. FINDINGS: LUNGS AND PLEURA: No opacities, masses or pneumothorax. No pleural effusion. MEDIASTINUM AND HILAR STRUCTURES: No masses. Contour normal. HEART AND VASCULAR STRUCTURES: Heart normal in size. Normal vasculature. BONES: No acute findings. HARDWARE: None in the chest. OTHER: No other significant finding. IMPRESSION: NO ACUTE RADIOGRAPHIC FINDING IN THE CHEST. TECHNICAL DOCUMENTATION: JOB ID: [id number] 2010 [employer]- All Rights Reserved Reading location - IP/workstation name: [email or web address]
[2019-10-24 19:47] LABS: ABSOLUTE RETICS # 0.241 10^6/uL (0.028-0.122); HEMATOCRIT 29.1 % (36.0-47.0); HEMOGLOBIN 10.3 g/dL (12.0-15.5); MEAN CORPUSCULAR HEMOGLOBIN 30.7 pg (27.0-33.4); MEAN CORPUSCULAR HGB CONC 35.5 g/dL (32.0-36.0); MEAN CORPUSCULAR VOLUME 87 fl (80-97); PLATELET COUNT 485 10^3/uL (150-450); RED BLOOD COUNT 3.36 10^6/uL (3.72-5.28); RED CELL DISTRIBUTION WIDTH 22.1 % (11.5-14.0); RETICULOCYTE COUNT (AUTO) 7.18 % (0.66-2.85); WHITE BLOOD COUNT 13.3 10^3/uL (4.0-10.5)
[2019-10-24 19:58] LABS: ABSOLUTE LYMPHOCYTES# (MANUAL) 1.6 10^3/uL (0.5-4.7); ABSOLUTE MONOCYTES # (MANUAL) 1.6 10^3/uL (0.1-1.4); BASOPHILS % (MANUAL) 0 % (0-2); EOSINOPHILS % (MANUAL) 1 % (0-6); LYMPHOCYTES % (MANUAL) 12 % (13-45); MONOCYTES % (MANUAL) 12 % (3-13); SEGMENTED NEUTROPHILS % (MAN) 75 % (42-78); TOTAL CELLS COUNTED 100
[2019-10-24 20:06] LABS: ANISOCYTOSIS 3+; HOWELL-JOLLY BODIES PRESENT; OVALOCYTES 1+; PLATELET COMMENT INCREASED; POIKILOCYTOSIS 3+; SICKLE RED CELLS 2+; TARGET CELLS 2+; TEAR DROP CELLS SLIGHT; TOXIC GRANULATION SLIGHT
[2019-10-24 20:16] LABS: ALKALINE PHOSPHATASE 66 U/L (38-126); ASPARTATE AMINO TRANSFERASE 31 U/L (14-36); BILIRUBIN,TOTAL 2.1 mg/dL (0.2-1.3); BLOOD UREA NITROGEN 3 mg/dL (7-20); CALCIUM 8.8 mg/dL (8.4-10.2); GLUCOSE 109 mg/dL (75-110); POTASSIUM 3.1 mmol/L (3.6-5.0); TOTAL PROTEIN 6.7 g/dL (6.3-8.2)
[2019-10-24 20:20] LABS: INTERNATIONAL RATION (INR) 1.16; PROTHROMBIN TIME 14.9 SEC (11.4-15.4)
[2019-10-24 20:21] LABS: CARBON DIOXIDE 27 mmol/L (22-30); CHLORIDE 106 mmol/L (98-107); PARTIAL THROMBOPLASTIN TIME 32.9 SEC (23.5-35.8)
[2019-10-24] MEDS ORDERED: DIPHENHYDRAMINE HCL 50 MG/ML VIAL IV ONE (20:22)
[2019-10-24] MEDS ORDERED: ONDANSETRON HCL INJ/PF 4 MG/2 ML SDV IV ONE (20:22)
--- NOTE | 2019-10-24 20:24 | ER Document Report ---
ED General - General Chief Complaint: Sickle Cell Crisis Stated Complaint: MUSCLE PAIN Time Seen by Provider: 10/24/19 20:04 Primary Care Provider: BRUNA MENJIVAR MD [ACTIVE STAFF] - Follow up tomorrow Notes: Patient is a 29-year-old female with a history of sickle cell anemia that comes emergency department for chief complaint of generalized body pain, especially with aching in her legs. She states this is been going on for the past couple of days, she states her oxycodone at home is not working. Patient did have a D&C procedure performed [address] Estrada, she states that she has slight spotting but she denies any particular abdominal pain, heavy bleeding, dizziness, fever, nausea or vomiting. She denies headache, she reports a vague shortness of breath but states she thinks it is because her whole body hurts. She follows with Dr. Menjivar. She is on hydroxyurea and folic acid. She has had a cholecystectomy and tonsillectomy, denies medical history otherwise. TRAVEL OUTSIDE OF THE [place] IN LAST 30 DAYS: No - Related Data Allergies/Adverse Reactions: ceftriaxone sodium [From Rocephin] Allergy (Verified 10/04/19 09:53) Cephalosporins Allergy (Verified 10/04/19 09:53) milk [Milk] Allergy (Verified 10/04/19 09:53) Shellfish * [Shellfish] Allergy (Verified 10/04/19 09:53) wheat [Wheat] Allergy (Verified 10/04/19 09:53) Past Medical History - General Information source: Patient - Social History Smoking Status: Never Smoker Frequency of alcohol use: None Drug Abuse: None Lives with: Family Family History: None, DM, Malignancy - Brother with Hodgkin's lymphoma. Maternal grandfather with lung cancer., Other - sickle trait in Mother and Father Patient has suicidal ideation: No Patient has homicidal ideation: No - Past Medical History Cardiac Medical History: Reports: Hx Hypertension, Hx Heart Murmur Denies: Hx Coronary Artery Disease, Hx Heart Attack Pulmonary Medical History: Reports: Hx Asthma, Hx Pneumonia - 10/03 Denies: Hx Bronchitis, Hx COPD, Hx Tuberculosis Neurological Medical History: Reports: Hx Migraine, Hx Seizures. Denies: Hx Cerebrovascular Accident Endocrine Medical History: Denies: Hx Diabetes Mellitus Type 1, Hx Diabetes Mellitus Type 2, Hx Hyperthyroidism, Hx Hypothyroidism Renal/ Medical History: Denies: Hx Peritoneal Dialysis GI Medical History: Reports: Hx Gastroesophageal Reflux Disease. Denies: Hx Cirrhosis, Hx Hepatitis Musculoskeletal Medical History: Denies Hx Arthritis, Denies Hx Fibromyalgia, Denies Hx Gout Skin Medical History: Denies Hx Eczema, Reports Hx MRSA, Denies Hx Psoriasis Psychiatric Medical History: Reports: Hx Depression Infectious Medical History: Denies: Hx Hepatitis Past Surgical History: Reports: Hx Adenoidectomy, Hx Cholecystectomy, Hx Oral Surgery - growth removed from under tongue, Hx Tonsillectomy, Other - Port placement 2 and removal for infection, multiple PICC lines, central l. Denies: Hx Hysterectomy, Hx Kidney (Renal Surgery), Hx Pacemaker - Immunizations Hx Diphtheria, Pertussis, Tetanus Vaccination: Yes Hx Pneumococcal Vaccination: 07/08/11 Review of Systems - Review of Systems Constitutional: See HPI EENT: No symptoms reported Cardiovascular: No symptoms reported Respiratory: No symptoms reported Gastrointestinal: No symptoms reported Genitourinary: No symptoms reported Female Genitourinary: No symptoms reported Musculoskeletal: See HPI Skin: No symptoms reported Hematologic/Lymphatic: No symptoms reported Neurological/Psychological: No symptoms reported Physical Exam - Vital signs Vitals: Temp Pulse Resp BP Pulse Ox 99.3 F 90 20 146/74 H 94 10/24/19 18:01 10/24/19 18:01 10/24/19 18:01 10/24/19 18:01 10/24/19 18:01 - Notes Notes: GENERAL: Alert and interactive but slightly restless and uncomfortable in appearance HEAD: Normocephalic, atraumatic. EYES: Pupils equal, round, and reactive to light. Extraocular movements intact. ENT: Oral mucosa moist, tongue midline. Oropharynx unremarkable. Airway patent. NECK: Full range of motion. Supple. Trachea midline. No lymphadenopathy. LUNGS: Clear to auscultation bilaterally, no wheezes, rales, or rhonchi. No respiratory distress. Non-tender chest wall. HEART: Regular rate and rhythm. No murmur ABDOMEN: Soft, non-tender. Non-distended. EXTREMITIES: Moves all 4 extremities spontaneously. No edema, normal radial and dorsalis pedis pulses bilaterally. No cyanosis. BACK: no cervical, thoracic, lumbar midline tenderness. No saddle anesthesia, normal distal neurovascular exam. Moves all extremities in full range of motion. NEUROLOGICAL: Alert and oriented x3. Normal speech. Cranial nerves II through XII grossly intact. Strength 5/5 in all extremities. PSYCH: Normal affect, normal mood. SKIN: Warm, dry, normal turgor. No rashes or lesions noted. Course - Re-evaluation Re-evalutation: On initial exam patient is restless and uncomfortable, however she is not febrile, tachycardic, hypoxic, she has clear lungs, she has generalized body pain that is worst in her legs. She received small doses from triage, this apparently is smaller than she usually gets, she will be given a higher dose. She received IV fluids. CBC shows mild leukocytosis and anemia, elevated reticulocyte counts, similar to prior. Chemistry nonspecific with elevated indirect bilirubin (mild). Chest x-ray and remaining work-up nonspecific and with no acute findings. On reevaluation patient states she actually feels a lot better, she will be given a final dose and reevaluated. Reevaluate patient, she has no current symptoms. I did discuss admitting her to the hospital because of her repeat returns the emergency department for pain, however she declined, she states she would prefer to see her armoured car escort and she will return if she worsens. I discussed this in detail. Patient states appreciation and agreement. Stable, smiling, well-appearing at time of discharge. - Vital Signs Vital signs: Temp Pulse Resp BP Pulse Ox 98.8 F 71 20 128/58 H 99 10/25/19 00:43 10/25/19 00:43 10/25/19 00:43 10/25/19 00:00 10/25/19 00:43 - Laboratory Result Diagrams: 10/24/19 19:15 10/24/19 19:49 Laboratory results interpreted by me: 10/24/19 10/24/19 19:15 19:49 WBC 13.3 H RBC 3.36 L Hgb 10.3 L Hct 29.1 L RDW 22.1 H Plt Count 485 H Reticulocyte # 0.241 H Lymphocytes % (Manual) 12 L Abs Neuts (Manual) 10.0 H Abs Monocytes (Manual) 1.6 H Retic Count (auto) 7.18 H Sodium 136.8 L Potassium 3.1 L Anion Gap 4 L BUN 3 L Creatinine 0.40 L Total Bilirubin 2.1 H Discharge - Discharge Clinical Impression: Sickle cell anemia with pain Condition: Stable Disposition: HOME, SELF-CARE Additional Instructions: Continue your home medications, rest, drink plenty of fluids, call Dr. Menjivar for close followup. Return if you worsen including difficulty breathing, developing fever, severe pain, vomiting, or any other concerning or worsening symptoms. Referrals: BRUNA MENJIVAR MD [ACTIVE STAFF] - Follow up tomorrow
[2019-10-24 20:34] LABS: ANION GAP 4 (5-19)
--- NOTE | 2019-10-24 20:45 | EKG REPORT ---
SEVERITY:- ABNORMAL ECG - SINUS RHYTHM PROBABLE LEFT ATRIAL ABNORMALITY BORDERLINE T ABNORMALITIES, DIFFUSE LEADS BORDERLINE PROLONGED QT INTERVAL : Confirmed by: Samir Harrison MD 24-Oct-2019 20:44:51
[2019-10-24] MEDS ORDERED: POTASSIUM CHLORIDE 10 MEQ TABLET.ER PO ONE (21:18)
[2019-10-25 00:23] VITALS: BP 128/58
== END 2019-10-25 00:55 | disposition home or self-care (01) ==
LOC: ER 17:57
DX: D57.00 Hb-SS disease with crisis, unspecified (principal); I10 Essential (primary) hypertension; Z90.49 Acquired absence of other specified parts of digestive tract; Z98.890 Other specified postprocedural states
CPT/HCPCS: 93005; 96376; 99284; 96361; 96374; 96375; 36415; 83735; 85025; 85610; 85730; 85045; 80053; 84484; 71045; 93010; J1200; J1170; J2405; J7030

== ENCOUNTER 2019-10-26 15:18 | Outpatient (CLI) | payer MEDICAID ==
[2019-10-26] MEDS ORDERED: NORMAL SALINE 1000 ML 2,000 ML IV PRN (15:44)
[2019-10-26] MEDS ORDERED: DIPHENHYDRAMINE HCL 50 MG/ML VIAL IV ONE (16:00)
[2019-10-26] MEDS ORDERED: ONDANSETRON HCL INJ/PF 4 MG/2 ML SDV IV ONE (16:00)
[2019-10-26] MEDS ORDERED: HYDROMORPHONE HCL INJ/PF 2 MG/ML AMPULE IV ONE (16:00)
[2019-10-26 19:48] VITALS: BP 140/75
== END 2019-10-26 19:49 | disposition home or self-care (01) ==
LOC: II 15:18 → 4N 15:18 → UNDOADMIN 15:18 → UNDODISIN 19:49 → II 19:49 → EDSTATUS 11-05 15:11
PROVIDERS: ATTEND Internal Medicine
DX: D57.00 Hb-SS disease with crisis, unspecified (principal); E86.0 Dehydration; R11.0 Nausea; R52 Pain, unspecified
CPT/HCPCS: J1200; J1170; J2405; J7030; 96361; 96374; 96375

== ENCOUNTER 2019-10-28 12:56 | Outpatient (CLI) | payer MEDICAID ==
[2019-10-28 13:06] VITALS: BP 134/64
[2019-10-28] MEDS ORDERED: DIPHENHYDRAMINE HCL 50 MG/ML VIAL IV PRN (13:19)
[2019-10-28] MEDS ORDERED: ONDANSETRON HCL INJ/PF 4 MG/2 ML SDV IV PRN (13:20)
[2019-10-28] MEDS ORDERED: HYDROMORPHONE HCL INJ/PF 2 MG/ML AMPULE IV PRN (13:21)
[2019-10-28] MEDS: NORMAL SALINE 1000 ML 1,000 ML IV PRN ×2 (13:29→14:35)
== END 2019-10-28 16:01 | disposition home or self-care (01) ==
LOC: II 12:56 → 5TH 12:59 → II 16:01
PROVIDERS: ATTEND Internal Medicine
DX: D57.00 Hb-SS disease with crisis, unspecified (principal); E86.0 Dehydration; R11.0 Nausea; R52 Pain, unspecified
CPT/HCPCS: 96374; 96375; 96361; J1200; J1170; J2405

== ENCOUNTER 2019-10-29 11:43 | Outpatient (CLI) | payer MEDICAID ==
[~2019-10-29 11:43] MED LIST changes: -NORMAL SALINE 1000 ML 1,000 ML IV PRN
[2019-10-29 11:58] VITALS: BP 137/80
[2019-10-29] MEDS: NORMAL SALINE 1000 ML 1,000 ML IV PRN ×2 (12:03→13:00)
== END 2019-10-29 14:30 | disposition home or self-care (01) ==
LOC: II 11:43 → 5TH 11:45 → II 14:30
PROVIDERS: ATTEND Internal Medicine
DX: D57.00 Hb-SS disease with crisis, unspecified (principal); E86.0 Dehydration; R11.0 Nausea; R52 Pain, unspecified
CPT/HCPCS: 96374; 96375; 96361; J1200; J1170; J2405

== ENCOUNTER 2019-10-30 11:44 | Outpatient (CLI) | payer MEDICAID ==
[2019-10-30 11:56] VITALS: BP 147/81
[2019-10-30] MEDS: NORMAL SALINE 1000 ML 1,000 ML IV PRN ×2 (11:56→12:56)
== END 2019-10-30 14:41 | disposition home or self-care (01) ==
LOC: II 11:44 → 5TH 12:16 → II 14:41
PROVIDERS: ATTEND Internal Medicine
DX: D57.00 Hb-SS disease with crisis, unspecified (principal); E86.0 Dehydration; R11.0 Nausea; R52 Pain, unspecified
CPT/HCPCS: 96374; 96375; 96361; J1200; J1170; J2405

== ENCOUNTER 2019-10-31 17:09 | Inpatient (IN) | payer MEDICAID ==
[2019-10-31] MEDS ORDERED: HYDROMORPHONE HCL INJ/PF 2 MG/ML AMPULE IV ONE ×3 (17:22→21:06)
[2019-10-31] MEDS ORDERED: DIPHENHYDRAMINE HCL 50 MG/ML VIAL IV ONE (17:24)
[2019-10-31] MEDS ORDERED: ONDANSETRON HCL INJ/PF 4 MG/2 ML SDV IV ONE (17:24)
[2019-10-31] MEDS ORDERED: NORMAL SALINE 1000 ML 1,000 ML IV ONE ×2 (17:24→19:24)
--- NOTE | 2019-10-31 17:32 | ER Document Report ---
ED General Pain - General Chief Complaint: Sickle Cell Crisis Stated Complaint: BODY PAIN Time Seen by Provider: 10/31/19 17:14 Notes: Patient is a 29-year-old female with history of sickle cell disease who presents to the emergency department with a sickle cell crisis. Patient states that she has leg pain, back pain, and chest pain. Patient states that this feels like her normal sickle cell crisis. She was seen yesterday in the clinic by Dr. Cornelius and was given her normal dosages of medications. Patient states that she normally takes 4 mg of Dilaudid, 25 mg of Benadryl, Zofran, and IV fluids. TRAVEL OUTSIDE OF THE [place] IN LAST 30 DAYS: No - Related Data Allergies/Adverse Reactions: ceftriaxone sodium [From Rocephin] Allergy (Verified 10/31/19 20:52) Cephalosporins Allergy (Verified 10/31/19 20:52) milk [Milk] Allergy (Verified 10/31/19 20:52) Shellfish * [Shellfish] Allergy (Verified 10/31/19 20:52) wheat [Wheat] Allergy (Verified 10/31/19 20:52) Past Medical History - General Information source: Patient - Social History Smoking Status: Never Smoker Family History: None, DM, Malignancy - Brother with Hodgkin's lymphoma. Maternal grandfather with lung cancer., Other - sickle trait in Mother and Father - Past Medical History Cardiac Medical History: Reports: Hx Hypertension, Hx Heart Murmur Denies: Hx Coronary Artery Disease, Hx Heart Attack Pulmonary Medical History: Reports: Hx Asthma, Hx Pneumonia - 10/03 Denies: Hx Bronchitis, Hx COPD, Hx Tuberculosis Neurological Medical History: Reports: Hx Migraine, Hx Seizures. Denies: Hx Cerebrovascular Accident Endocrine Medical History: Denies: Hx Diabetes Mellitus Type 1, Hx Diabetes Mellitus Type 2, Hx Hyperthyroidism, Hx Hypothyroidism Renal/ Medical History: Denies: Hx Peritoneal Dialysis GI Medical History: Reports: Hx Gastroesophageal Reflux Disease. Denies: Hx Cirrhosis, Hx Hepatitis Musculoskeletal Medical History: Denies Hx Arthritis, Denies Hx Fibromyalgia, Denies Hx Gout Skin Medical History: Denies Hx Eczema, Reports Hx MRSA, Denies Hx Psoriasis Psychiatric Medical History: Reports: Hx Depression Infectious Medical History: Denies: Hx Hepatitis Past Surgical History: Reports: Hx Adenoidectomy, Hx Cholecystectomy, Hx Oral Surgery - growth removed from under tongue, Hx Tonsillectomy, Other - Port placement 2 and removal for infection, multiple PICC lines, central l. Denies: Hx Hysterectomy, Hx Kidney (Renal Surgery), Hx Pacemaker - Immunizations Hx Diphtheria, Pertussis, Tetanus Vaccination: Yes Hx Pneumococcal Vaccination: 07/08/11 Review of Systems - Review of Systems Notes: REVIEW OF SYSTEMS: CONSTITUTIONAL : Denies recent illness. Denies recent unintentional weight loss. Denies fever, chills, or sweats. EENT: Denies eye, ear, throat, or mouth pain, discharge, or symptoms. Denies nasal or sinus congestion. CARDIOVASCULAR: See HPI. RESPIRATORY: See HPI. GASTROINTESTINAL: Denies nausea, vomiting, and diarrhea. Denies abdominal pain. Denies constipation. GENITOURINARY: Denies difficulty urinating, burning, blood in urine, urgency or frequency. MUSCULOSKELETAL: Denies neck and back pain. Denies joint pain or swelling. SKIN: Denies rash, itchiness, or lesions HEMATOLOGIC : Denies easy bruising or bleeding. LYMPHATIC: Denies swollen, painful, enlarged glands. NEUROLOGICAL: Denies no numbness or tingling denies weakness. Denies headache. Denies altered mental status. Denies alteration in speech. PSYCHIATRIC: Denies stress, anxiety, alteration in sleep patterns, or depression. All other systems reviewed and negative. Physical Exam - Vital signs Vitals: Temp Resp BP Pulse Ox 99.0 F 21 H 127/90 H 98 10/31/19 17:24 10/31/19 17:24 10/31/19 17:24 10/31/19 17:24 - Notes Notes: PHYSICAL EXAMINATION: GENERAL: Crying, writhing around in pain. HEAD: Normocephalic, atraumatic. EYES: PERRL, conjunctiva normal, all extraocular movements intact, sclera nonicteric ENT: Dry mucous membranes. NECK: Supple, no noticeable swelling, redness, rash. Normal range of motion. LUNGS: Equal breath sounds bilaterally and clear to auscultation. No wheezes rales or rhonchi. CARDIOVASCULAR: S1-S2, regular rate, regular rhythm. Radial pulses 2+, normal. ABDOMEN: Normoactive bowel sounds. Soft, nontender, no guarding, no rebound te nderness, and no masses palpated. EXTREMITIES: Normal strength and range of motion, no pitting or edema. No cyanosis. NEUROLOGICAL: Moves all extremities upon command. Strength 5/5 in all extremi ties. PSYCH: Normal mood, normal affect. SKIN: Warm, dry. No rash, lesions, ulcerations noted. Normal skin turgor. Course - Re-evaluation Re-evalutation: 10/31/19 22:26 CTA of the chest shows atelectasis. I spoke with Dr. Jung, the oncologist on- call for Dr. Cornelius. She agrees to follow the patient for sickle cell crisis vincent armstrong. 10/31/19 22:[address] Jones, patient will be admitted to the telemetry floor. - Vital Signs Vital signs: Temp Pulse Resp BP Pulse Ox 99.4 F 74 18 141/79 H 100 11/01/19 00:16 11/01/19 00:16 11/01/19 00:16 11/01/19 00:16 11/01/19 00:16 - Laboratory Result Diagrams: 10/31/19 17:28 10/31/19 18:10 Laboratory results interpreted by me: 10/31/19 10/31/19 10/31/19 17:28 18:10 18:10 WBC 18.4 H RBC 3.43 L Hgb 10.4 L Hct 30.3 L RDW 23.4 H Reticulocyte # 0.347 H Seg Neuts % (Manual) 81 H Lymphocytes % (Manual) 11 L Abs Neuts (Manual) 14.9 H Abs Monocytes (Manual) 1.5 H Retic Count (auto) 10.14 H D-Dimer 5.29 H Sodium 136.4 L Potassium 3.4 L BUN 4 L Creatinine 0.37 L Glucose 142 H Magnesium 1.4 L Total Bilirubin 1.8 H Urine Protein Urine Urobilinogen 10/31/19 19:42 WBC RBC Hgb Hct RDW Reticulocyte # Seg Neuts % (Manual) Lymphocytes % (Manual) Abs Neuts (Manual) Abs Monocytes (Manual) Retic Count (auto) D-Dimer Sodium Potassium BUN Creatinine Glucose Magnesium Total Bilirubin Urine Protein 30 H Urine Urobilinogen 2.0 H Discharge - Discharge Clinical Impression: Sickle cell crisis Condition: Stable Disposition: ADMITTED INPATIENT Admitting Provider: Robert (Hospitalist) Unit Admitted: Telemetry
[2019-10-31 17:47] LABS: ABSOLUTE RETICS # 0.347 10^6/uL (0.028-0.122); HEMATOCRIT 30.3 % (36.0-47.0); HEMOGLOBIN 10.4 g/dL (12.0-15.5); MEAN CORPUSCULAR HEMOGLOBIN 30.5 pg (27.0-33.4); MEAN CORPUSCULAR HGB CONC 34.5 g/dL (32.0-36.0); MEAN CORPUSCULAR VOLUME 88 fl (80-97); PLATELET COUNT 349 10^3/uL (150-450); RED BLOOD COUNT 3.43 10^6/uL (3.72-5.28); RED CELL DISTRIBUTION WIDTH 23.4 % (11.5-14.0); RETICULOCYTE COUNT (AUTO) 10.14 % (0.66-2.85); WHITE BLOOD COUNT 18.4 10^3/uL (4.0-10.5)
[2019-10-31 18:03] LABS: ABSOLUTE MONOCYTES # (MANUAL) 1.5 10^3/uL (0.1-1.4); BASOPHILS % (MANUAL) 0 % (0-2); EOSINOPHILS % (MANUAL) 0 % (0-6); LYMPHOCYTES % (MANUAL) 11 % (13-45); MONOCYTES % (MANUAL) 8 % (3-13); NUCLEATED RED BLOOD CELLS 5 /100 WBC (0); SEGMENTED NEUTROPHILS % (MAN) 81 % (42-78); TOTAL CELLS COUNTED 100
[2019-10-31 18:05] LABS: ANISOCYTOSIS 3+; PAPPENHEIMER BODIES PRESENT; PLATELET COMMENT ADEQUATE; POIKILOCYTOSIS 2+; SICKLE RED CELLS 2+; TARGET CELLS 1+
[2019-10-31 18:47] LABS: ALBUMIN 4.1 g/dL (3.5-5.0); ALKALINE PHOSPHATASE 83 U/L (38-126); ANION GAP 7 (5-19); ASPARTATE AMINO TRANSFERASE 36 U/L (14-36); BILIRUBIN,TOTAL 1.8 mg/dL (0.2-1.3); BLOOD UREA NITROGEN 4 mg/dL (7-20); CALCIUM 8.7 mg/dL (8.4-10.2); CARBON DIOXIDE 27 mmol/L (22-30); CHLORIDE 102 mmol/L (98-107); GLUCOSE 142 mg/dL (75-110); POTASSIUM 3.4 mmol/L (3.6-5.0)
--- NOTE | 2019-10-31 19:02 | RADIOLOGY REPORT (SQ) ---
EXAM DESCRIPTION: CHEST SINGLE VIEW IMAGES COMPLETED DATE/TIME: 10/31/2019 6:39 pm REASON FOR STUDY: chest pain COMPARISON: None. EXAM PARAMETERS: NUMBER OF VIEWS: One view. TECHNIQUE: Single frontal radiographic view of the chest acquired. RADIATION DOSE: NA LIMITATIONS: None. FINDINGS: LUNGS AND PLEURA: No opacities, masses or pneumothorax. No pleural effusion. MEDIASTINUM AND HILAR STRUCTURES: No masses. Contour normal. HEART AND VASCULAR STRUCTURES: Mild cardiac enlargement. Normal vasculature. BONES: No acute findings. HARDWARE: None in the chest. OTHER: No other significant finding. IMPRESSION: MILD CARDIOMEGALY. NO ACUTE RADIOGRAPHIC FINDING IN THE CHEST. TECHNICAL DOCUMENTATION: JOB ID: [id number] 2010 [employer]- All Rights Reserved Reading location - IP/workstation name: [email or web address]
[2019-10-31 21:10] LABS: APPEARANCE,URINE CLEAR; BILIRUBIN,URINE NEGATIVE (NEGATIVE); COLOR,URINE YELLOW; GLUCOSE, URINE NEGATIVE (NEGATIVE); KETONES,URINE NEGATIVE (NEGATIVE); LEUKOCYTE ESTERASE,URINE NEGATIVE (NEGATIVE); NITRITE,URINE NEGATIVE (NEGATIVE); PROTEIN,URINE 30 mg/dL (NEGATIVE)
[2019-10-31 21:25] LABS: URINE AMPHETAMINES SCREEN NEGATIVE; URINE BARBITURATES SCREEN NEGATIVE; URINE BENZODIAZEPINES SCREEN NEGATIVE; URINE COCAINE SCREEN NEGATIVE; URINE METHADONE SCREEN NEGATIVE; URINE PHENCYCLIDINE SCREEN NEGATIVE
[2019-10-31 21:26] LABS: URINE MARIJUANA (THC) SCREEN UNCONFIRMED POSITIVE
--- NOTE | 2019-10-31 21:31 | RADIOLOGY REPORT (SQ) ---
EXAM DESCRIPTION: CT CHEST ANGIOGRAPHY WITHOUT THEN WITH IV CONTRAST COMPLETED DATE/TME: 10/31/2019 19:21 CLINICAL HISTORY: 29 years, Female, shortness of breath COMPARISON: None. TECHNIQUE: Contrast-enhanced CT of the chest was acquired. Images were obtained after the uneventful administration of 100 mL of Omnipaque 350 intravenous contrast. MIPS were created. Images stored on PACS. All CT scanners at this facility use dose modulation, iterative reconstruction, and/or weight based dosing when appropriate to reduce radiation dose to as low as reasonably achievable (ALARA). [facility]: Dose Right [facility]: CareDose [facility]: Dose Right [facility]: Teradose 4D [facility]: Smart Media Battles LIMITATIONS: None. FINDINGS: Central airways are patent. Bands of opacity are noted about the basilar segments of both lower lobes, likely indicating areas of atelectasis and/or scar. Similar findings are noted about the right middle lobe. Trace left pleural effusion is evident. Lungs are otherwise clear. A low-density lesion located within the right lobe of the thyroid gland measuring 1.2 x 1.0 cm in size. Remainder of the thyroid gland appears to enhance normally. Irregular soft tissue density is noted about the anterior mediastinum, corresponding to residual thymus given the patient's age. Trace pericardial effusion is evident. Otherwise, no suspicious hilar or mediastinal lymph node enlargement is appreciated. Study is limited for the evaluation of pulmonary emboli secondary to motion artifact, especially within the left lower lobe. No definite filling defects are identified to the proximal segmental level. Limited evaluation of the upper abdomen reveals no suspicious finding. Bone windows show no destructive osseous lesions. IMPRESSION: Somewhat limited evaluation for pulmonary emboli secondary to motion artifact. No definite evidence of pulmonary embolism to the proximal segmental level. Trace left pleural effusion with superimposed areas of atelectasis. 1.2 cm incidental thyroid nodule. Recommend thyroid US. Reference: J Am Mariola Radiol. 2015 Aug;12(2): 143-50 TECHNICAL DOCUMENTATION: Quality ID # 436: Final reports with documentation of one or more dose reduction techniques (e.g., Automated exposure control, adjustment of the mA and/or kV according to patient size, use of iterative reconstruction technique) copyright 2011 [employer]- All Rights Reserved
[2019-10-31] MEDS ORDERED: IPRATROPIUM/ALBUTEROL 0.5-2.5 MG/3 ML AMPUL NEB PRN (22:46)
[2019-10-31] MEDS ORDERED: MAGNESIUM HYDROXIDE SUSP 30 ML UDCUP PO PRN (22:46)
[2019-10-31] MEDS ORDERED: MAG HYDROX/AL HYDROX/SIMETH SUSP 30 ML UDCUP PO PRN (22:46)
[2019-10-31] MEDS ORDERED: MAGNESIUM OXIDE 400 MG TABLET PO ONE (23:00)
[2019-10-31] MEDS: HYDROMORPHONE HCL INJ/PF 2 MG/ML AMPULE IV PRN (23:36)
[2019-10-31] MEDS: POTASSIUM CHLORIDE 10 MEQ TABLET.ER PO SCH (23:38)
[2019-11-01] MEDS ORDERED: MAGNESIUM OXIDE 400 MG TABLET PO ONE (01:15)
[2019-11-01] MEDS: DIPHENHYDRAMINE HCL 50 MG CAPSULE PO PRN ×4 (01:35→22:18)
[2019-11-01] MEDS: HYDROMORPHONE HCL INJ/PF 2 MG/ML AMPULE IV PRN ×8 (02:45→22:13)
--- NOTE | 2019-11-01 03:26 | PDOC H&P ---
History of Present Illness Admission Date/PCP: 10/31/19 23:12 AMALIA OROZCO PA-C Patient complains of: Sickle cell pain History of Present Illness: PRANAV JOINER is a 29 year old female with history of sickle cell disease presenting with 24 hours of pain crisis affecting her usual joints of leg back and chest. She is found to have a hemoglobin at her baseline but of leukocytosis of 18.4 and elevated retake count of 0.34. She receives normal saline, IV Dilaudid and Benadryl and referred to the hospitalist for admission. Denies recent change in medication regiment. She denies any facial pain sore throat, shortness of breath, nausea or vomiting or pelvic pain. Past Medical History Cardiac Medical History: Reports: Hypertension, Heart Murmur Denies: Coronary Artery Disease, Myocardial Infarction Pulmonary Medical History: Reports: Asthma, Pneumonia - 10/03 Denies: Bronchitis, Chronic Obstructive Pulmonary Disease (COPD), Tuberculosis Neurological Medical History: Reports: Migraine, Seizures Endocrine Medical History: Denies: Diabetes Mellitus Type 1, Diabetes Mellitus Type 2, Hyperthyroidism, Hypothyroidism GI Medical History: Reports: Gastroesophageal Reflux Disease Denies: Cirrhosis, Hepatitis Musculoskeltal Medical History: Denies: Arthritis, Fibromyalgia, Gout Skin Medical History: Denies: Eczema, Psoriasis Psychiatric Medical History: Reports: Depression Hematology: Reports: Anemia, Sickle Cell Disease Denies: Bleeding Tendencies Past Surgical History Past Surgical History: Reports: Adenoidectomy, Cholecystectomy, Tonsillectomy, Other - Port placement 2 and removal for infection, multiple PICC lines, central l Denies: Hysterectomy, Pacemaker Social History Information Source: Patient, [facility] Records Smoking Status: Never Smoker Frequency of Alcohol Use: None Hx Recreational Drug Use: No Drugs: Marijuana Hx Prescription Drug Abuse: No Family History Family History: DM, Malignancy - Brother with Hodgkin's lymphoma. Maternal grandfather with lung cancer., Other - sickle trait in Mother and Father Parental Family History Reviewed: Yes Children Family History Reviewed: Yes Sibling(s) Family History Reviewed.: Yes Medication/Allergy Home Medications: Folic Acid 1 mg PO DAILY 07/11/19 Oxycodone HCl 15 mg PO Q3HP PRN 07/11/19 Albuterol Sulfate [Ventolin Hfa 8 gm Mdi] 2 puff IH Q4HP PRN #1 inhaler 10/04/19 Amitriptyline HCl [Elavil 25 mg Tablet] 25 mg PO DAILY 10/04/19 Amitriptyline HCl [Elavil 25 mg Tablet] 50 mg PO QHS 10/04/19 Amlodipine Besylate [Norvasc 5 mg Tablet] 5 mg PO DAILY 10/04/19 Butalb/Acetaminophen/Caffeine [Fioricet (50-325-40 mg) Tablet] 1 tab PO Q4HP PRN MDD 6 TABS 10/04/19 Cetirizine HCl [Zyrtec 10 mg Tablet] 10 mg PO DAILY 10/04/19 Guaifenesin [Mucinex Sr 600 mg Tablet.sa] 600 mg PO Q12 #14 tablet.sa 10/04/19 Hydroxyurea 1,500 mg PO SUTUTHSA@1000 10/04/19 Hydroxyurea 2,000 mg PO MOWEFR@1000 10/04/19 Lidocaine [Lidoderm 5% (700 mg) Transdermal Patch] 1 patch TP DAILY #7 adh..patch 10/04/19 Allergies/Adverse Reactions: ceftriaxone sodium [From Rocephin] Allergy (Verified 10/31/19 20:52) Cephalosporins Allergy (Verified 10/31/19 20:52) milk [Milk] Allergy (Verified 10/31/19 20:52) Shellfish * [Shellfish] Allergy (Verified 10/31/19 20:52) wheat [Wheat] Allergy (Verified 10/31/19 20:52) Review of Systems Constitutional: ABSENT: chills, fever(s), headache(s), weight gain, weight loss Eyes: ABSENT: visual disturbances Ears: ABSENT: hearing changes Cardiovascular: ABSENT: chest pain, dyspnea on exertion, edema, orthropnea, palpitations Respiratory: ABSENT: cough, hemoptysis Gastrointestinal: ABSENT: abdominal pain, constipation, diarrhea, hematemesis, h ematochezia, nausea, vomiting Genitourinary: ABSENT: dysuria, hematuria Musculoskeletal: ABSENT: joint swelling Integumentary: ABSENT: rash, wounds Neurological: ABSENT: abnormal gait, abnormal speech, confusion, dizziness, focal weakness, syncope Psychiatric: ABSENT: anxiety, depression, homidical ideation, suicidal ideation Endocrine: ABSENT: cold intolerance, heat intolerance, polydipsia, polyuria Hematologic/Lymphatic: ABSENT: easy bleeding, easy bruising Physical Exam Vital Signs: Temp Pulse Resp BP Pulse Ox 99.4 F 74 18 141/79 H 100 11/01/19 00:16 11/01/19 00:16 11/01/19 00:16 11/01/19 00:16 11/01/19 00:16 Intake & Output 10/30/19 10/31/19 11/01/19 11:59 11:59 11:59 Intake Total 1999 Balance 1999 Weight 62.1 kg General appearance: PRESENT: cooperative, mild distress, well-developed, well- nourished Head exam: PRESENT: atraumatic, normocephalic Eye exam: PRESENT: conjunctiva pink, EOMI, PERRLA. ABSENT: scleral icterus Ear exam: PRESENT: normal external ear exam Mouth exam: PRESENT: moist, tongue midline Neck exam: ABSENT: carotid bruit, JVD, lymphadenopathy, thyromegaly Respiratory exam: PRESENT: clear to auscultation william. ABSENT: rales, rhonchi, wheezes Cardiovascular exam: PRESENT: RRR. ABSENT: diastolic murmur, rubs, systolic murmur Pulses: PRESENT: normal dorsalis pedis pul Vascular exam: PRESENT: normal capillary refill GI/Abdominal exam: PRESENT: normal bowel sounds, soft. ABSENT: distended, guarding, mass, organolmegaly, rebound, tenderness Rectal exam: PRESENT: deferred Extremities exam: PRESENT: full ROM. ABSENT: calf tenderness, clubbing, pedal edema Neurological exam: PRESENT: alert, awake, oriented to person, oriented to place, oriented to time, oriented to situation, CN II-XII grossly intact. ABSENT: motor sensory deficit Psychiatric exam: PRESENT: appropriate affect, normal mood. ABSENT: homicidal ideation, suicidal ideation Skin exam: PRESENT: dry, intact, warm. ABSENT: cyanosis, rash Results Laboratory Results: 10/31/19 17:28 10/31/19 18:10 10/31/19 10/31/19 10/31/19 17:28 17:28 18:10 WBC 18.4 H RBC 3.43 L Hgb 10.4 L Hct 30.3 L MCV 88 MCH 30.5 MCHC 34.5 RDW 23.4 H Plt Count 349 Seg Neutrophils % Not Reportable Retic Count (auto) 10.14 H Sodium Cancelled 136.4 L Potassium Cancelled 3.4 L Chloride Cancelled 102 Carbon Dioxide Cancelled 27 Anion Gap Cancelled 7 BUN Cancelled 4 L Creatinine Cancelled 0.37 L Est GFR ( Amer) Cancelled > 60 Est GFR (Non-Af Amer) Cancelled Glucose Cancelled 142 H Calcium Cancelled 8.7 Magnesium Cancelled 1.4 L Total Bilirubin Cancelled 1.8 H AST Cancelled 36 Alkaline Phosphatase Cancelled 83 Total Protein Cancelled 7.0 Albumin Cancelled 4.1 Urine Color Urine Appearance Urine pH Ur Specific [place] Urine Protein Urine Glucose (UA) Urine Ketones Urine Blood Urine Nitrite Ur Leukocyte Esterase Urine WBC (Auto) Urine RBC (Auto) 10/31/19 19:42 WBC RBC Hgb Hct MCV MCH MCHC RDW Plt Count Seg Neutrophils % Retic Count (auto) Sodium Potassium Chloride Carbon Dioxide Anion Gap BUN Creatinine Est GFR ( Amer) Est GFR (Non-Af Amer) Glucose Calcium Magnesium Total Bilirubin AST Alkaline Phosphatase Total Protein Albumin Urine Color YELLOW Urine Appearance CLEAR Urine pH 7.0 Ur Specific [place] 1.010 Urine Protein 30 H Urine Glucose (UA) NEGATIVE Urine Ketones NEGATIVE Urine Blood NEGATIVE Urine Nitrite NEGATIVE Ur Leukocyte Esterase NEGATIVE Urine WBC (Auto) 1 Urine RBC (Auto) 0 10/31/19 10/31/19 17:28 18:10 Troponin I Cancelled < 0.012 Impressions: Chest X-Ray 10/31/19 17:23 IMPRESSION: MILD CARDIOMEGALY. NO ACUTE RADIOGRAPHIC FINDING IN THE CHEST. Chest/Abdomen CTA 10/31/19 19:21 IMPRESSION: Somewhat limited evaluation for pulmonary emboli secondary to motion artifact. No definite evidence of pulmonary embolism to the proximal segmental level. Trace left pleural effusion with superimposed areas of atelectasis. 1.2 cm incidental thyroid nodule. Recommend thyroid US. Reference: J Am Mariola Radiol. 2015 Aug;12(2): 143-50 TECHNICAL DOCUMENTATION: Quality ID # 436: Final reports with documentation of one or more dose reduction techniques (e.g., Automated exposure control, adjustment of the mA and/or kV according to patient size, use of iterative reconstruction technique) copyright 2011 [employer]- All Rights Reserved Assessment and Plan - Diagnosis (1) Sickle cell anemia with pain Is this a current diagnosis for this admission?: Yes Plan: Unclear trigger though concern for recent vaginal D&C. IV fluid challenge, symptomatic management, follow-up beta-hCG and GEOSPATIAL INTELLIGENCE ANALYST consult PRN (2) Anemia Qualifiers: Is this a current diagnosis for this admission?: Yes Plan: At baseline, hydroxyurea ordered, follow-up CBC and reticulocyte count (3) Leukocytosis Is this a current diagnosis for this admission?: Yes Plan: Likely secondary to pain crisis however concern for recent vaginal D&C, follow- up CT pelvis, blood and urine hCG. - Time Time Spent with patient: 25-34 minutes - Inpatient Certification Medical Necessity: Need Close Monitoring Due to Risk of Patient Decompensation
[2019-11-01 03:45] LABS: HEMATOCRIT 25.6 % (36.0-47.0); HEMOGLOBIN 9.2 g/dL (12.0-15.5); MEAN CORPUSCULAR HGB CONC 35.8 g/dL (32.0-36.0); MEAN CORPUSCULAR VOLUME 87 fl (80-97); PLATELET COUNT 226 10^3/uL (150-450); RED BLOOD COUNT 2.96 10^6/uL (3.72-5.28); RED CELL DISTRIBUTION WIDTH 22.4 % (11.5-14.0); WHITE BLOOD COUNT 14.4 10^3/uL (4.0-10.5)
[2019-11-01 04:05] LABS: ALKALINE PHOSPHATASE 106 U/L (38-126); ANION GAP 6 (5-19); ASPARTATE AMINO TRANSFERASE 46 U/L (14-36); BILIRUBIN,TOTAL 2.3 mg/dL (0.2-1.3); BLOOD UREA NITROGEN 3 mg/dL (7-20); CALCIUM 8.6 mg/dL (8.4-10.2); CARBON DIOXIDE 26 mmol/L (22-30); CHLORIDE 103 mmol/L (98-107); GLUCOSE 130 mg/dL (75-110); POTASSIUM 3.4 mmol/L (3.6-5.0); TOTAL PROTEIN 6.8 g/dL (6.3-8.2)
[2019-11-01 04:11] LABS: ABSOLUTE LYMPHOCYTES# (MANUAL) 0.7 10^3/uL (0.5-4.7); ABSOLUTE MONOCYTES # (MANUAL) 0.3 10^3/uL (0.1-1.4); BAND NEUTROPHILS % (MANUAL) 4 % (3-5); BASOPHILS % (MANUAL) 0 % (0-2); EOSINOPHILS % (MANUAL) 0 % (0-6); LYMPHOCYTES % (MANUAL) 5 % (13-45); MONOCYTES % (MANUAL) 2 % (3-13); NUCLEATED RED BLOOD CELLS 5 /100 WBC (0); SEGMENTED NEUTROPHILS % (MAN) 89 % (42-78); TOTAL CELLS COUNTED 100
[2019-11-01 04:12] LABS: ANISOCYTOSIS 3+; BURR CELLS 1+; PLATELET COMMENT ADEQUATE; POIKILOCYTOSIS 1+; POLYCHROMASIA 1+; SICKLE RED CELLS 1+; TARGET CELLS 1+
[2019-11-01] MEDS: ONDANSETRON HCL INJ/PF 4 MG/2 ML SDV IV PRN ×3 (05:53→21:00)
[2019-11-01] MEDS: POTASSIUM CHLORIDE 10 MEQ TABLET.ER PO SCH ×2 (05:56→14:00)
[2019-11-01] MEDS: HEPARIN SOD (PORCINE) 5,000 UNIT/ML 1 ML VIAL SUBCUT SCH ×3 (06:02→22:21)
[2019-11-01] MEDS: IPRATROPIUM/ALBUTEROL 0.5-2.5 MG/3 ML AMPUL NEB SCH ×2 (08:19→20:16)
[2019-11-01 08:37] LABS: FREE T3 2.78 pg/mL (2.77-5.27); FREE T4 (FREE THYROXINE) 1.06 ng/dL (0.78-2.19)
[2019-11-01 08:51] LABS: THYROID STIMULATING HORMONE 0.15 uIU/mL (0.47-4.68)
--- NOTE | 2019-11-01 10:23 | RADIOLOGY REPORT (SQ) ---
EXAM DESCRIPTION: U/S THYROID/SFT TISS HD NECK IMAGES COMPLETED DATE/TIME: 11/01/2019 9:53 am REASON FOR STUDY: Thyroid nodule on CT COMPARISON: None. TECHNIQUE: Dynamic and static husain-scale images acquired of the thyroid gland. Selected additional c olor/power Doppler images recorded. All images stored to PACS. LIMITATIONS: None. FINDINGS: RIGHT LOBE: Normal size. Homogeneous echotexture. 14 mm colloid cyst midpole. 8 x 6 mm lower pole hypoechoic nodule with smooth margins, wider than tall. No calcifications. LEFT LOBE: Normal size. Homogeneous echotexture. No cystic or solid masses. ISTHMUS: Normal size. Homogeneous echotexture. No cystic or solid masses. OTHER: No other significant finding. IMPRESSION: Small solid nodule left lobe. TI-RADS 3. 1 year follow-up recommended. COMMENT: The [employer] ([employer]) Thyroid Imaging Reporting And Data System (TI-RADS ) is an ultrasound feature based summed scoring system of risk categorization and management recommen dations for thyroid nodules. TI-RADS assessment categories are as follows: 0 - Incomplete exam: Additional imaging or comparison to prior examinations recommended. 1. - Benign: Fine-needle aspiration or follow-up not routinely recommended in the absence of clinical change. 2. - Not suspicious: Fine-needle aspiration or follow-up not routinely recommended in the absence of clinical change. 3. - Mildly suspicious: Fine-needle aspiration recommended if greater than or equal to 2.5 cm in size . Ultrasound follow-up recommended if greater than or equal to 1.5 cm in size. 4. - Moderately suspicious: Fine-needle aspiration recommended if greater than or equal to 1.5 cm in size. Ultrasound follow-up recommended if greater than or equal to 1.0 cm in size. 5. - Highly suspicious: Fine-needle aspiration recommended if greater than or equal to 1.0 cm in size . Ultrasound follow-up recommended if greater than or equal to 0.5 cm in size. TECHNICAL DOCUMENTATION: JOB ID: [id number] 2010 [employer]- All Rights Reserved Reading location - IP/workstation name: [email or web address]
--- NOTE | 2019-11-01 10:39 | EKG REPORT ---
SEVERITY:- ABNORMAL ECG - SINUS RHYTHM NONSPECIFIC T ABNORMALITIES, INFERIOR LEADS : Confirmed by: Bradley Alarcon 01-Nov-2019 10:38:15
[2019-11-01] MEDS ORDERED: BUTALB/ACETAMINOPHEN/CAFFEINE 1 TAB EACH PO PRN (10:43)
[2019-11-01] MEDS: MAGNESIUM OXIDE 400 MG TABLET PO SCH ×2 (10:45→18:13)
[2019-11-01] MEDS: DOCUSATE SODIUM 100 MG CAPSULE PO SCH ×2 (10:45→18:13)
[2019-11-01] MEDS ORDERED: KETOROLAC TROMETHAMINE INJ/PF 30 MG/1 ML SDV IV ONE (11:30)
[2019-11-01] MEDS ORDERED: HYDROMORPHONE HCL INJ/PF 2 MG/ML AMPULE IV ONE (11:30)
[2019-11-01] MEDS ORDERED: PROMETHAZINE HCL INJ 25 MG/1 ML VIAL IV ONE (11:30)
[2019-11-01] MEDS: NORMAL SALINE 1000 ML 1,000 ML IV PRN ×3 (13:58→22:19)
--- NOTE | 2019-11-01 14:55 | PDOC PROGRESS REPORT ---
Subjective Progress Note for:: 11/01/19 Subjective:: PRANAV JOINER is a 29 year old female with history of sickle cell disease presenting with 24 hours of pain crisis affecting her usual joints of leg back and chest admitted 10/31/19 for sickle cell crisis pain. Patient was seen on morning rounds after returning from radiology. She is found resting in bed. She was curled in the position, rocking back and forth, and crying upon my entering the room. She reports that she is in severe pain. She states that she has not had any pain relief from the medications provided thus far. She reports chest discomfort with inspiration and movement. She denies fever, chills, palpitations, dyspnea, orthopnea, abdominal pain, nausea vomiting. No concerns per nursing Reason For Visit: SC PAIN CRISIS Physical Exam Vital Signs: Temp Pulse Resp BP Pulse Ox 97.8 F 77 22 H 133/90 H 100 11/01/19 12:00 11/01/19 12:00 11/01/19 12:00 11/01/19 12:00 11/01/19 12:00 Intake & Output 10/31/19 11/01/19 11/02/19 06:59 06:59 06:59 Intake Total 1999 120 Balance 1999 120 Weight 62.1 kg General appearance: PRESENT: cooperative, mild distress, well-developed, well- nourished Head exam: PRESENT: atraumatic, normocephalic Eye exam: PRESENT: conjunctiva pink, EOMI, PERRLA. ABSENT: scleral icterus Ear exam: PRESENT: normal external ear exam Mouth exam: PRESENT: moist, tongue midline Respiratory exam: PRESENT: clear to auscultation william, symmetrical, unlabored. ABSENT: rales, rhonchi, wheezes Cardiovascular exam: PRESENT: RRR. ABSENT: diastolic murmur, rubs, systolic murmur Pulses: PRESENT: normal dorsalis pedis pul Vascular exam: PRESENT: normal capillary refill GI/Abdominal exam: PRESENT: normal bowel sounds, soft. ABSENT: distended, guarding, mass, organolmegaly, rebound, tenderness Rectal exam: PRESENT: deferred Extremities exam: PRESENT: full ROM. ABSENT: calf tenderness, clubbing, pedal edema Neurological exam: PRESENT: alert, awake, oriented to person, oriented to place, oriented to time, oriented to situation, CN II-XII grossly intact. ABSENT: motor sensory deficit Psychiatric exam: PRESENT: appropriate affect, normal mood. ABSENT: homicidal ideation, suicidal ideation Skin exam: PRESENT: dry, intact, warm. ABSENT: cyanosis, rash Results Laboratory Results: 11/01/19 03:28 11/01/19 03:28 10/31/19 10/31/19 10/31/19 17:28 17:28 18:10 WBC 18.4 H RBC 3.43 L Hgb 10.4 L Hct 30.3 L MCV 88 MCH 30.5 MCHC 34.5 RDW 23.4 H Plt Count 349 Seg Neutrophils % Not Reportable Retic Count (auto) 10.14 H Sodium Cancelled 136.4 L Potassium Cancelled 3.4 L Chloride Cancelled 102 Carbon Dioxide Cancelled 27 Anion Gap Cancelled 7 BUN Cancelled 4 L Creatinine Cancelled 0.37 L Est GFR ( Amer) Cancelled > 60 Est GFR (Non-Af Amer) Cancelled Glucose Cancelled 142 H Calcium Cancelled 8.7 Magnesium Cancelled 1.4 L Total Bilirubin Cancelled 1.8 H AST Cancelled 36 Alkaline Phosphatase Cancelled 83 Total Protein Cancelled 7.0 Albumin Cancelled 4.1 TSH Free T4 Free T3 pg/mL Serum HCG, Qual Urine Color Urine Appearance Urine pH Ur Specific [place] Urine Protein Urine Glucose (UA) Urine Ketones Urine Blood Urine Nitrite Ur Leukocyte Esterase Urine WBC (Auto) Urine RBC (Auto) 10/31/19 11/01/19 11/01/19 19:42 03:28 03:28 WBC 14.4 H RBC 2.96 L Hgb 9.2 L Hct 25.6 L MCV 87 MCH 31.0 MCHC 35.8 RDW 22.4 H Plt Count 226 Seg Neutrophils % Not Reportable Retic Count (auto) Sodium 135.0 L Potassium 3.4 L Chloride 103 Carbon Dioxide 26 Anion Gap 6 BUN 3 L Creatinine 0.34 L Est GFR ( Amer) > 60 Est GFR (Non-Af Amer) Glucose 130 H Calcium 8.6 Magnesium 1.6 Total Bilirubin 2.3 H AST 46 H Alkaline Phosphatase 106 Total Protein 6.8 Albumin 4.0 TSH Free T4 Free T3 pg/mL Serum HCG, Qual Urine Color YELLOW Urine Appearance CLEAR Urine pH 7.0 Ur Specific [place] 1.010 Urine Protein 30 H Urine Glucose (UA) NEGATIVE Urine Ketones NEGATIVE Urine Blood NEGATIVE Urine Nitrite NEGATIVE Ur Leukocyte Esterase NEGATIVE Urine WBC (Auto) 1 Urine RBC (Auto) 0 11/01/19 11/01/19 03:28 03:28 WBC RBC Hgb Hct MCV MCH MCHC RDW Plt Count Seg Neutrophils % Retic Count (auto) Sodium Potassium Chloride Carbon Dioxide Anion Gap BUN Creatinine Est GFR ( Amer) Est GFR (Non-Af Amer) Glucose Calcium Magnesium Total Bilirubin AST Alkaline Phosphatase Total Protein Albumin TSH 0.15 L Free T4 1.06 Free T3 pg/mL 2.78 Serum HCG, Qual NEGATIVE Urine Color Urine Appearance Urine pH Ur Specific [place] Urine Protein Urine Glucose (UA) Urine Ketones Urine Blood Urine Nitrite Ur Leukocyte Esterase Urine WBC (Auto) Urine RBC (Auto) 10/31/19 10/31/19 17:28 18:10 Troponin I Cancelled < 0.012 Impressions: Chest X-Ray 10/31/19 17:23 IMPRESSION: MILD CARDIOMEGALY. NO ACUTE RADIOGRAPHIC FINDING IN THE CHEST. Chest/Abdomen CTA 10/31/19 19:21 IMPRESSION: Somewhat limited evaluation for pulmonary emboli secondary to motion artifact. No definite evidence of pulmonary embolism to the proximal segmental level. Trace left pleural effusion with superimposed areas of atelectasis. 1.2 cm incidental thyroid nodule. Recommend thyroid US. Reference: J Am Mariola Radiol. 2015 Aug;12(2): 143-50 TECHNICAL DOCUMENTATION: Quality ID # 436: Final reports with documentation of one or more dose reduction techniques (e.g., Automated exposure control, adjustment of the mA and/or kV according to patient size, use of iterative reconstruction technique) copyright 2011 [employer]- All Rights Reserved Thyroid Ultrasound 11/01/19 00:00 IMPRESSION: Small solid nodule left lobe. TI-RADS 3. 1 year follow-up recommended. Assessment and Plan - Diagnosis (1) Sickle cell anemia with pain Is this a current diagnosis for this admission?: Yes Plan: Patient is admitted to the medical floor on continuous cardiac telemetry. She is provided generous IV fluids. Analgesics as needed; PRN IV Dilaudid, scheduled IV Toradol, as needed Tylenol, daily Lidoderm patch. Antiemetics as needed. Home dose hydroxyurea and folic acid. Heating pad, supplemental oxygen. Incentive spirometer and encouraged ambulation. Follow CBC; transfuse for Hgb <7 (2) Thyroid nodule Is this a current diagnosis for this admission?: Yes Plan: TSH, T3, T4 separable. CTA chest incidentally noted a 1.2 cm thyroid nodule. Follow-up ultrasound grades TI-RADS 3; one-year follow-up. (3) Hypertension Qualifiers: Hypertension type: essential hypertension Qualified Code(s): I10 - Essential (primary) hypertension Is this a current diagnosis for this admission?: Yes Plan: Resumed patient's home dose amlodipine, Procardia. Adequate pain control. Cardiac diet. (4) Depressed Is this a current diagnosis for this admission?: Yes (5) Opiate dependence, continuous Is this a current diagnosis for this admission?: Yes - Time Time Spent with patient: 25-34 minutes Medications reviewed and adjusted accordingly: Yes Anticipated discharge: Home
[2019-11-01] MEDS: KETOROLAC TROMETHAMINE INJ/PF 30 MG/1 ML SDV IV SCH (18:12)
[2019-11-01] MEDS ORDERED: AMITRIPTYLINE HCL 25 MG TABLET PO SCH (22:00)
[2019-11-01] MEDS: AMITRIPTYLINE HCL 50 MG TABLET PO SCH (22:18)
[2019-11-02] MEDS: HYDROMORPHONE HCL INJ/PF 2 MG/ML AMPULE IV PRN ×11 (00:11→23:09)
[2019-11-02] MEDS: KETOROLAC TROMETHAMINE INJ/PF 30 MG/1 ML SDV IV SCH ×2 (02:12→10:01)
[2019-11-02] MEDS: DIPHENHYDRAMINE HCL 50 MG CAPSULE PO PRN (04:17)
[2019-11-02] MEDS: ONDANSETRON HCL INJ/PF 4 MG/2 ML SDV IV PRN (04:18)
[2019-11-02] MEDS: HEPARIN SOD (PORCINE) 5,000 UNIT/ML 1 ML VIAL SUBCUT SCH ×3 (06:19→21:00)
[2019-11-02 06:32] LABS: HEMATOCRIT 23.3 % (36.0-47.0); HEMOGLOBIN 8.4 g/dL (12.0-15.5); MEAN CORPUSCULAR HEMOGLOBIN 31.1 pg (27.0-33.4); MEAN CORPUSCULAR HGB CONC 35.9 g/dL (32.0-36.0); MEAN CORPUSCULAR VOLUME 87 fl (80-97); PLATELET COUNT 196 10^3/uL (150-450); RED BLOOD COUNT 2.69 10^6/uL (3.72-5.28); RED CELL DISTRIBUTION WIDTH 23.1 % (11.5-14.0); WHITE BLOOD COUNT 11.1 10^3/uL (4.0-10.5)
[2019-11-02 06:56] LABS: BLOOD UREA NITROGEN 3 mg/dL (7-20); CALCIUM 8.7 mg/dL (8.4-10.2); CARBON DIOXIDE 27 mmol/L (22-30); CHLORIDE 103 mmol/L (98-107); GLUCOSE 97 mg/dL (75-110)
[2019-11-02 07:06] LABS: ANION GAP 5 (5-19)
[2019-11-02] MEDS: IPRATROPIUM/ALBUTEROL 0.5-2.5 MG/3 ML AMPUL NEB SCH ×2 (08:25→20:25)
[2019-11-02] MEDS ORDERED: HYDROXYUREA 500 MG CAPSULE PO SCH (10:00)
[2019-11-02] MEDS: MAGNESIUM OXIDE 400 MG TABLET PO SCH ×2 (10:01→17:25)
[2019-11-02] MEDS: AMITRIPTYLINE HCL 25 MG TABLET PO SCH (10:02)
[2019-11-02] MEDS: NIFEDIPINE 30 MG TAB.ER.24 PO SCH (10:02)
[2019-11-02] MEDS: CETIRIZINE 10 MG TABLET PO SCH (10:02)
[2019-11-02] MEDS: FOLIC ACID 1 MG TABLET PO SCH (10:02)
[2019-11-02] MEDS: AMLODIPINE BESYLATE 5 MG TABLET PO SCH (10:02)
[2019-11-02] MEDS: DOCUSATE SODIUM 100 MG CAPSULE PO SCH ×3 (10:03→19:53)
[2019-11-02] MEDS: LIDOCAINE 5% (700 MG) TRANSDERMAL ADH..PATCH TP SCH (10:03)
--- NOTE | 2019-11-02 16:28 | PDOC CONSULTATION ---
Consultation Consult Date: 11/02/19 Attending physician:: ANASTACIA GOODWIN Provider Consulted: BRUNA MENJIVAR Consult reason:: Pt w/ known SSD here w/ crisis History of Present Illness Admission Date/PCP: 10/31/19 23:12 AMALIA OROZCO PA-C Patient complains of: Diffuse pain History of Present Illness: PRANAV JOINER is a 29 year old female well known to our heme clinic w/ sickle cell dx here w/ frequent pain crisis, we have been trying to manage an ongoing crisis that really began almost 2m ago when she had miscarriage and d/c. She had worsening pain and was admitted. She is currently on dilaudid and still having severe pain. Past Medical History Cardiac Medical History: Reports: Hypertension, Heart Murmur Denies: Coronary Artery Disease, Myocardial Infarction Pulmonary Medical History: Reports: Asthma, Pneumonia - 10/03 Denies: Bronchitis, Chronic Obstructive Pulmonary Disease (COPD), Tuberculosis Neurological Medical History: Reports: Migraine, Seizures Endocrine Medical History: Denies: Diabetes Mellitus Type 1, Diabetes Mellitus Type 2, Hyperthyroidism, Hypothyroidism GI Medical History: Reports: Gastroesophageal Reflux Disease Denies: Cirrhosis, Hepatitis Musculoskeltal Medical History: Denies: Arthritis, Fibromyalgia, Gout Skin Medical History: Denies: Eczema, Psoriasis Psychiatric Medical History: Reports: Depression Hematology: Reports: Anemia, Sickle Cell Disease Denies: Bleeding Tendencies Past Surgical History Past Surgical History: Reports: Adenoidectomy, Cholecystectomy, Tonsillectomy, Other - Port placement 2 and removal for infection, multiple PICC lines, central l Denies: Hysterectomy, Pacemaker Social History Smoking Status: Never Smoker Frequency of Alcohol Use: None Hx Recreational Drug Use: No Drugs: Marijuana Hx Prescription Drug Abuse: No - Advance Directive Resuscitation Status: Full Code Family History Family History: DM, Malignancy - Brother with Hodgkin's lymphoma. Maternal g randfather with lung cancer., Other - sickle trait in Mother and Father Parental Family History Reviewed: Yes Children Family History Reviewed: Yes Sibling(s) Family History Reviewed.: Yes Medication/Allergy Home Medications: Folic Acid 1 mg PO DAILY 07/11/19 Oxycodone HCl 15 mg PO Q3HP PRN 07/11/19 Albuterol Sulfate [Ventolin Hfa 8 gm Mdi] 2 puff IH Q4HP PRN #1 inhaler 10/04/19 Amitriptyline HCl [Elavil 25 mg Tablet] 25 mg PO DAILY 10/04/19 Amitriptyline HCl [Elavil 25 mg Tablet] 50 mg PO QHS 10/04/19 Amlodipine Besylate [Norvasc 5 mg Tablet] 5 mg PO DAILY 10/04/19 Butalb/Acetaminophen/Caffeine [Fioricet (50-325-40 mg) Tablet] 1 tab PO Q4HP PRN MDD 6 TABS 10/04/19 Cetirizine HCl [Zyrtec 10 mg Tablet] 10 mg PO DAILY 10/04/19 Hydroxyurea 1,500 mg PO SUTUTHSA@1000 10/04/19 Hydroxyurea 2,000 mg PO MOWEFR@1000 10/04/19 Lidocaine [Lidoderm 5% (700 mg) Transdermal Patch] 1 patch TP DAILY #7 adh..patch 10/04/19 Nifedipine [Nifedipine ER] 30 mg PO DAILY 11/01/19 Allergies/Adverse Reactions: ceftriaxone sodium [From Rocephin] Allergy (Verified 10/31/19 20:52) Cephalosporins Allergy (Verified 10/31/19 20:52) milk [Milk] Allergy (Verified 10/31/19 20:52) Shellfish * [Shellfish] Allergy (Verified 10/31/19 20:52) wheat [Wheat] Allergy (Verified 10/31/19 20:52) Physical Exam Vital Signs: Temp Pulse Resp BP Pulse Ox 98.8 F 116 H 16 140/76 H 95 11/02/19 15:31 11/02/19 15:31 11/02/19 15:31 11/02/19 15:31 11/02/19 15:31 Intake & Output 11/01/19 11/02/19 11/03/19 06:59 06:59 06:59 Intake Total 1999 3120 Balance 1999 3120 Weight 62.1 kg 61.7 kg Results Laboratory Results: 11/02/19 06:16 11/02/19 06:16 11/02/19 11/02/19 06:16 06:16 WBC 11.1 H RBC 2.69 L Hgb 8.4 L Hct 23.3 L MCV 87 MCH 31.1 MCHC 35.9 RDW 23.1 H Plt Count 196 Sodium 134.3 L Potassium 4.0 Chloride 103 Carbon Dioxide 27 Anion Gap 5 BUN 3 L Creatinine 0.37 L Est GFR ( Amer) > 60 Glucose 97 Calcium 8.7 10/31/19 10/31/19 17:28 18:10 Troponin I Cancelled < 0.012 Impressions: Chest X-Ray 10/31/19 17:23 IMPRESSION: MILD CARDIOMEGALY. NO ACUTE RADIOGRAPHIC FINDING IN THE CHEST. Chest/Abdomen CTA 10/31/19 19:21 IMPRESSION: Somewhat limited evaluation for pulmonary emboli secondary to motion artifact. No definite evidence of pulmonary embolism to the proximal segmental level. Trace left pleural effusion with superimposed areas of atelectasis. 1.2 cm incidental thyroid nodule. Recommend thyroid US. Reference: J Am Mariola Radiol. 2015 Aug;12(2): 143-50 TECHNICAL DOCUMENTATION: Quality ID # 436: Final reports with documentation of one or more dose reduction techniques (e.g., Automated exposure control, adjustment of the mA and/or kV according to patient size, use of iterative reconstruction technique) copyright 2011 [employer]- All Rights Reserved Thyroid Ultrasound 11/01/19 00:00 IMPRESSION: Small solid nodule left lobe. TI-RADS 3. 1 year follow-up recommended. Assessment & Plan - Diagnosis (1) Sickle cell anemia with pain Is this a current diagnosis for this admission?: Yes Plan: SSD w/ active crisis, I will increase dilaudid, start cont IVF w/ NS at 125ml/hr, add phenergan as antiemetic, add Kpad for comfort, D/c her ketoralac, I will handle her pain needs going forward. Plan to transfuse PRBC if hb <7 - Time Time Spent: 50 to 70 Minutes
[2019-11-02] MEDS ORDERED: BISACODYL 5 MG TABEC PO PRN (18:29)
[2019-11-02] MEDS ORDERED: BISACODYL 10 MG SUPP.RECT PR PRN (18:29)
--- NOTE | 2019-11-02 18:29 | PDOC PROGRESS REPORT ---
Subjective Progress Note for:: 11/02/19 Subjective:: Patient seems to be rather uncomfortable and in a lot of pain today. She is getting rather massive amounts of IV Dilaudid every 2 hours and she states she is still in pain. I consulted oncology who normally sees the patient in clinic. She denies missing any of her medications including hydroxyurea. I discussed the case with Dr. Daugherty who stated he will be adjusting the patient's pain medications given that he knows her quite well and she has a rather high re quirement of narcotics when she is in a sickle cell crisis. Her hemoglobin is lower today but is not yet at the threshold for transfusion. Per hematology, transfusion threshold for this patient should be less than 8. Reason For Visit: SC PAIN CRISIS Physical Exam Vital Signs: Temp Pulse Resp BP Pulse Ox 98.8 F 116 H 16 140/76 H 95 11/02/19 15:31 11/02/19 15:31 11/02/19 15:31 11/02/19 15:31 11/02/19 15:31 Intake & Output 11/01/19 11/02/19 11/03/19 06:59 06:59 06:59 Intake Total 1999 3120 Balance 1999 3120 Weight 62.1 kg 61.7 kg General appearance: PRESENT: no acute distress, well-developed, well-nourished Head exam: PRESENT: atraumatic, normocephalic Eye exam: PRESENT: conjunctiva pink Mouth exam: PRESENT: moist Respiratory exam: PRESENT: clear to auscultation william. ABSENT: rales, rhonchi, wheezes Cardiovascular exam: PRESENT: RRR. ABSENT: diastolic murmur, rubs, systolic murmur GI/Abdominal exam: PRESENT: normal bowel sounds, soft. ABSENT: distended, guarding, mass, organolmegaly, rebound, tenderness Musculoskeletal exam: PRESENT: tenderness - Severe tenderness of back and legs consistent with sickle cell pain Neurological exam: PRESENT: alert, awake, oriented to person, oriented to place, oriented to time, oriented to situation, CN II-XII grossly intact. ABSENT: motor sensory deficit Psychiatric exam: PRESENT: anxious, appropriate affect, normal mood Skin exam: PRESENT: dry, intact, warm Results Laboratory Results: 11/02/19 06:16 11/02/19 06:16 11/02/19 11/02/19 06:16 06:16 WBC 11.1 H RBC 2.69 L Hgb 8.4 L Hct 23.3 L MCV 87 MCH 31.1 MCHC 35.9 RDW 23.1 H Plt Count 196 Sodium 134.3 L Potassium 4.0 Chloride 103 Carbon Dioxide 27 Anion Gap 5 BUN 3 L Creatinine 0.37 L Est GFR ( Amer) > 60 Glucose 97 Calcium 8.7 10/31/19 10/31/19 17:28 18:10 Troponin I Cancelled < 0.012 Impressions: Chest X-Ray 10/31/19 17:23 IMPRESSION: MILD CARDIOMEGALY. NO ACUTE RADIOGRAPHIC FINDING IN THE CHEST. Chest/Abdomen CTA 10/31/19 19:21 IMPRESSION: Somewhat limited evaluation for pulmonary emboli secondary to motion artifact. No definite evidence of pulmonary embolism to the proximal segmental level. Trace left pleural effusion with superimposed areas of atelectasis. 1.2 cm incidental thyroid nodule. Recommend thyroid US. Reference: J Am Mariola Radiol. 2014;12(2): 143-50 TECHNICAL DOCUMENTATION: Quality ID # 436: Final reports with documentation of one or more dose reduction techniques (e.g., Automated exposure control, adjustment of the mA and/or kV according to patient size, use of iterative reconstruction technique) copyright 2011 [employer]- All Rights Reserved Thyroid Ultrasound 11/01/19 00:00 IMPRESSION: Small solid nodule left lobe. TI-RADS 3. 1 year follow-up recommended. Assessment and Plan - Diagnosis (1) Sickle cell anemia with pain Is this a current diagnosis for this admission?: Yes Plan: Patient is admitted to the medical floor on continuous cardiac telemetry. She is provided generous IV fluids. Analgesics as needed; PRN IV Dilaudid, scheduled IV Toradol, as needed Tylenol, daily Lidoderm patch. Antiemetics as needed. Home dose hydroxyurea and folic acid. Heating pad, supplemental oxygen. Incentive spirometer and encouraged ambulation. Follow CBC; transfuse for Hgb <7 11/02/2019 Hemoglobin lower today down to 8.4 from 9.2. Per hematology we should transfuse this patient if her hemoglobin drops below 8 as this is when her pain seems to spike and becomes uncontrollable. Trend CBC IV narcotics dosed by hematology who is consulted and following IV fluids Continue Hydrea and folic acid (2) Acute on chronic anemia Is this a current diagnosis for this admission?: Yes Plan: Due to sick cell anemia (3) Constipation Qualifiers: Is this a current diagnosis for this admission?: Yes Plan: Bowel regimen added (4) Sickle cell anemia Qualifiers: Sickle-cell associated disorders: with unspecified crisis Qualified Code(s): D57.00 - Hb-SS disease with crisis, unspecified; D57.0 - Hb-SS disease with crisis Is this a current diagnosis for this admission?: Yes (5) Diastolic CHF Qualifiers: Qualified Code(s): I50.32 - Chronic diastolic (congestive) heart failure Is this a current diagnosis for this admission?: Yes Plan: Stable - Time Time Spent with patient: 35 or more minutes Medications reviewed and adjusted accordingly: Yes Anticipated discharge: Home - Inpatient Certification Based on my medical assessment, after consideration of the patient's comorbi dities, presenting symptoms, or acuity I expect that the services needed warrant INPATIENT care.: Yes I certify that my determination is in accordance with my understanding of Medicare's requirements for reasonable and necessary INPATIENT services [42 CFR 412.3e].: Yes Medical Necessity: Significant Comorbidiites Make Outpatient Treatment Too Risky, Need Close Monitoring Due to Risk of Patient Decompensation, Need For IV Fluids, Need for Pain Control, Risk of Complication if Not Cared For in Hospital, Risk of Diagnosis Which Will Require Inpatient Eval/Care/Monitoring
[2019-11-02] MEDS: NORMAL SALINE 1000 ML 1,000 ML IV PRN (19:40)
[2019-11-02] MEDS: AMITRIPTYLINE HCL 50 MG TABLET PO SCH (21:00)
[2019-11-02] MEDS: DIPHENHYDRAMINE HCL 50 MG/ML VIAL IV PRN (23:09)
[2019-11-03] MEDS: HYDROMORPHONE HCL INJ/PF 2 MG/ML AMPULE IV PRN ×10 (01:07→21:56)
[2019-11-03] MEDS: HEPARIN SOD (PORCINE) 5,000 UNIT/ML 1 ML VIAL SUBCUT SCH ×3 (05:09→21:57)
[2019-11-03] MEDS: DIPHENHYDRAMINE HCL 50 MG/ML VIAL IV PRN ×2 (05:09→21:56)
[2019-11-03] MEDS: NORMAL SALINE 1000 ML 1,000 ML IV PRN ×3 (05:10→20:40)
[2019-11-03] MEDS: IPRATROPIUM/ALBUTEROL 0.5-2.5 MG/3 ML AMPUL NEB SCH ×2 (08:19→19:56)
--- NOTE | 2019-11-03 09:34 | PDOC PROGRESS REPORT ---
Subjective Progress Note for:: 11/03/19 Subjective:: Per nursing, pain seems better controlled. Reason For Visit: SC PAIN CRISIS Physical Exam Vital Signs: Temp Pulse Resp BP Pulse Ox 98.8 F 86 18 139/90 H 96 11/03/19 07:28 11/03/19 08:20 11/03/19 08:20 11/03/19 07:28 11/03/19 08:20 Intake & Output 11/02/19 11/03/19 11/04/19 06:59 06:59 06:59 Intake Total 3120 2040 Output Total 950 Balance 3120 1090 Weight 61.7 kg 61.7 kg Results Laboratory Results: 11/02/19 06:16 11/02/19 06:16 10/31/19 10/31/19 17:28 18:10 Troponin I Cancelled < 0.012 Impressions: Chest X-Ray 10/31/19 17:23 IMPRESSION: MILD CARDIOMEGALY. NO ACUTE RADIOGRAPHIC FINDING IN THE CHEST. Chest/Abdomen CTA 10/31/19 19:21 IMPRESSION: Somewhat limited evaluation for pulmonary emboli secondary to motion artifact. No definite evidence of pulmonary embolism to the proximal segmental level. Trace left pleural effusion with superimposed areas of atelectasis. 1.2 cm incidental thyroid nodule. Recommend thyroid US. Reference: J Am Mariola Radiol. 2015 Aug;12(2): 143-50 TECHNICAL DOCUMENTATION: Quality ID # 436: Final reports with documentation of one or more dose reduction techniques (e.g., Automated exposure control, adjustment of the mA and/or kV according to patient size, use of iterative reconstruction technique) copyright 2011 [employer]- All Rights Reserved Thyroid Ultrasound 11/01/19 00:00 IMPRESSION: Small solid nodule left lobe. TI-RADS 3. 1 year follow-up recommended. Assessment & Plan - Diagnosis (1) Sickle cell anemia with pain Is this a current diagnosis for this admission?: Yes Plan: Pain better, cont current therapy, do cbc every other day, transfuse if hb <7 - Time Time Spent with patient: Less than 15 minutes
[2019-11-03] MEDS: CETIRIZINE 10 MG TABLET PO SCH (09:39)
[2019-11-03] MEDS: AMITRIPTYLINE HCL 25 MG TABLET PO SCH (09:39)
[2019-11-03] MEDS: AMLODIPINE BESYLATE 5 MG TABLET PO SCH (09:39)
[2019-11-03] MEDS: NIFEDIPINE 30 MG TAB.ER.24 PO SCH (09:39)
[2019-11-03] MEDS: FOLIC ACID 1 MG TABLET PO SCH (09:39)
[2019-11-03] MEDS: MAGNESIUM OXIDE 400 MG TABLET PO SCH ×2 (09:39→17:21)
[2019-11-03] MEDS: LIDOCAINE 5% (700 MG) TRANSDERMAL ADH..PATCH TP SCH (09:39)
[2019-11-03] MEDS: DOCUSATE SODIUM 100 MG CAPSULE PO SCH ×3 (09:45→17:21)
[2019-11-03] MEDS ORDERED: HYDROXYUREA 500 MG CAPSULE PO SCH (10:00)
[2019-11-03] MEDS: ONDANSETRON HCL INJ/PF 4 MG/2 ML SDV IV PRN (11:20)
[2019-11-03] MEDS: PROMETHAZINE HCL INJ 25 MG/1 ML VIAL IV PRN ×2 (12:07→21:57)
--- NOTE | 2019-11-03 14:12 | PDOC PROGRESS REPORT ---
Subjective Progress Note for:: 11/03/19 Reason For Visit: SC PAIN CRISIS 11/03/2019 Patient Lindsey to the hospital for sickle cell crisis, pain management Physical Exam Vital Signs: Temp Pulse Resp BP Pulse Ox 100.3 F 127 H 20 141/83 H 90 L 11/03/19 11:12 11/03/19 11:12 11/03/19 11:12 11/03/19 11:12 11/03/19 11:12 Intake & Output 11/02/19 11/03/19 11/04/19 06:59 06:59 06:59 Intake Total 3120 2040 875 Output Total 950 500 Balance 3120 1090 375 Weight 61.7 kg 61.7 kg General appearance: PRESENT: mild distress Respiratory exam: PRESENT: clear to auscultation william. ABSENT: rales, rhonchi, wheezes Cardiovascular exam: PRESENT: RRR. ABSENT: diastolic murmur, rubs, systolic murmur Neurological exam: PRESENT: alert, awake, oriented to person, oriented to place, oriented to time, oriented to situation, CN II-XII grossly intact. ABSENT: motor sensory deficit Psychiatric exam: PRESENT: appropriate affect, normal mood. ABSENT: homicidal ideation, suicidal ideation Results Laboratory Results: 11/02/19 06:16 11/02/19 06:16 10/31/19 10/31/19 17:28 18:10 Troponin I Cancelled < 0.012 Impressions: Chest X-Ray 10/31/19 17:23 IMPRESSION: MILD CARDIOMEGALY. NO ACUTE RADIOGRAPHIC FINDING IN THE CHEST. Chest/Abdomen CTA 10/31/19 19:21 IMPRESSION: Somewhat limited evaluation for pulmonary emboli secondary to motion artifact. No definite evidence of pulmonary embolism to the proximal segmental level. Trace left pleural effusion with superimposed areas of atelectasis. 1.2 cm incidental thyroid nodule. Recommend thyroid US. Reference: J Am Mariola Radiol. 2015 Aug;12(2): 143-50 TECHNICAL DOCUMENTATION: Quality ID # 436: Final reports with documentation of one or more dose reduction techniques (e.g., Automated exposure control, adjustment of the mA and/or kV according to patient size, use of iterative reconstruction technique) copyright 2011 [employer]- All Rights Reserved Thyroid Ultrasound 11/01/19 00:00 IMPRESSION: Small solid nodule left lobe. TI-RADS 3. 1 year follow-up recommended. Assessment and Plan - Diagnosis (1) Pain management Is this a current diagnosis for this admission?: Yes (2) Sickle cell anemia with pain Is this a current diagnosis for this admission?: Yes - Plan Summary Summary: 11/03/2019 Patient was admitted on 426 with sickle cell crisis that has been going now for almost 2 months after a D&C procedure Oncology he is currently managing her pain and labs are being drawn every other day Vital signs this morning temperature 98.8 Pulse rate 87 but has been as high as 128 Oxygen saturation 96% on 2 L Post recent labs yesterday her hemoglobin was 8.4 whereas on admission it was 10.4 platelets are 196,000 Electrolytes are grossly normal Repeat labs are due tomorrow. Continue Dilaudid per hematology's supervision - Time Time Spent with patient: 25-34 minutes
[2019-11-03] MEDS: ACETAMINOPHEN 325 MG TABLET PO PRN ×2 (15:16→20:40)
[2019-11-03] MEDS: AMITRIPTYLINE HCL 50 MG TABLET PO SCH (21:57)
[2019-11-04] MEDS: HYDROMORPHONE HCL INJ/PF 2 MG/ML AMPULE IV PRN ×9 (00:59→22:41)
[2019-11-04] MEDS ORDERED: FUROSEMIDE INJ/PF 20 MG/2 ML SDV IV PRN (05:00)
[2019-11-04] MEDS ORDERED: ACETAMINOPHEN 325 MG TABLET PO PRN (05:00)
[2019-11-04] MEDS: HEPARIN SOD (PORCINE) 5,000 UNIT/ML 1 ML VIAL SUBCUT SCH ×3 (05:30→22:47)
[2019-11-04] MEDS: NORMAL SALINE 1000 ML 1,000 ML IV PRN (06:00)
[2019-11-04 06:30] LABS: HEMATOCRIT 18.2 % (36.0-47.0); MEAN CORPUSCULAR HEMOGLOBIN 29.1 pg (27.0-33.4); PLATELET COUNT 147 10^3/uL (150-450); RED BLOOD COUNT 2.25 10^6/uL (3.72-5.28); RED CELL DISTRIBUTION WIDTH 22.7 % (11.5-14.0); WHITE BLOOD COUNT 17.7 10^3/uL (4.0-10.5)
[2019-11-04 06:37] LABS: HEMOGLOBIN 6.6 g/dL (12.0-15.5); MEAN CORPUSCULAR VOLUME 81 fl (80-97)
[2019-11-04] MEDS ORDERED: DIPHENHYDRAMINE HCL 50 MG/ML VIAL IV PRN (07:29)
[2019-11-04] MEDS: IPRATROPIUM/ALBUTEROL 0.5-2.5 MG/3 ML AMPUL NEB SCH ×2 (07:45→20:20)
[2019-11-04] MEDS: ACETAMINOPHEN 325 MG TABLET PO PRN ×2 (07:54→14:31)
[2019-11-04] MEDS ORDERED: ONDANSETRON HCL INJ/PF 4 MG/2 ML SDV IV PRN (08:00)
--- NOTE | 2019-11-04 08:39 | PDOC PROGRESS REPORT ---
Subjective Progress Note for:: 11/04/19 Subjective:: Hb low this am, gave orders for transfusion, access poor so gave orders for PICC placement Reason For Visit: SC PAIN CRISIS Physical Exam Vital Signs: Temp Pulse Resp BP Pulse Ox 100.0 F 107 H 22 H 120/61 99 11/04/19 07:44 11/04/19 07:47 11/04/19 07:47 11/04/19 07:44 11/04/19 07:47 Intake & Output 11/03/19 11/04/19 11/05/19 06:59 06:59 06:59 Intake Total 2040 3795 Output Total 950 1300 Balance 1090 2495 Weight 61.7 kg 64.4 kg Results Laboratory Results: 11/04/19 06:15 11/02/19 06:16 11/04/19 11/04/19 05:22 06:15 WBC Cancelled 17.7 H RBC Cancelled 2.25 L Hgb Cancelled 6.6 L Hct Cancelled 18.2 L MCV Cancelled 81 D MCH Cancelled 29.1 MCHC Cancelled 36.0 RDW Cancelled 22.7 H Plt Count Cancelled 147 L 10/31/19 10/31/19 17:28 18:10 Troponin I Cancelled < 0.012 Impressions: Chest X-Ray 10/31/19 17:23 IMPRESSION: MILD CARDIOMEGALY. NO ACUTE RADIOGRAPHIC FINDING IN THE CHEST. Chest/Abdomen CTA 10/31/19 19:21 IMPRESSION: Somewhat limited evaluation for pulmonary emboli secondary to motion artifact. No definite evidence of pulmonary embolism to the proximal segmental level. Trace left pleural effusion with superimposed areas of atelectasis. 1.2 cm incidental thyroid nodule. Recommend thyroid US. Reference: J Am Mariola Radiol. 2015 Aug;12(2): 143-50 TECHNICAL DOCUMENTATION: Quality ID # 436: Final reports with documentation of one or more dose reduction techniques (e.g., Automated exposure control, adjustment of the mA and/or kV according to patient size, use of iterative reconstruction technique) copyright 2011 [employer]- All Rights Reserved Thyroid Ultrasound 11/01/19 00:00 IMPRESSION: Small solid nodule left lobe. TI-RADS 3. 1 year follow-up recommended. Assessment & Plan - Diagnosis (1) Sickle cell anemia with pain Is this a current diagnosis for this admission?: Yes Plan: Cont current supportive care, plan as above. - Time Time Spent with patient: Less than 15 minutes
[2019-11-04] MEDS ORDERED: NORMAL SALINE INJ/PF 0.9% 10 ML SDV IV PRN (09:47)
[2019-11-04] MEDS: MAGNESIUM OXIDE 400 MG TABLET PO SCH ×2 (09:49→18:29)
[2019-11-04] MEDS: AMITRIPTYLINE HCL 25 MG TABLET PO SCH (09:50)
[2019-11-04] MEDS: FOLIC ACID 1 MG TABLET PO SCH (09:50)
[2019-11-04] MEDS: DOCUSATE SODIUM 100 MG CAPSULE PO SCH (09:52)
[2019-11-04] MEDS: CETIRIZINE 10 MG TABLET PO SCH (09:53)
[2019-11-04] MEDS: AMLODIPINE BESYLATE 5 MG TABLET PO SCH ×2 (09:54→10:22)
--- NOTE | 2019-11-04 10:10 | RADIOLOGY REPORT (SQ) ---
EXAM DESCRIPTION: PICC INSERTION IMAGES COMPLETED DATE/TIME: 11/04/2019 9:28 am REASON FOR STUDY: unable to obtain iv access COMPARISON: None. FLUOROSCOPY TIME: 12 seconds 2 images saved to PACS. TECHNIQUE: Fluoroscopic and ultrasound guided PICC placement. LIMITATIONS: None. PROCEDURE: After written consent and assessment were obtained, the patient was brought into the fluo roscopy room and placed supine on the table. Ultrasound evaluation of potential access sites were per formed. After successfully identifying a patent left basilic vein, the left arm was prepped and drape d in a sterile fashion along with the ultrasound probe. The entry site was anesthetized with 1% lidoc petra. A 21 gauge 7 cm needle was advanced through the skin and into the basilic vein under live ultra sound guidance. An ultrasound image was saved to PACS confirming access site. A .018 guide wire was then inserted through the needle and into the venous system. The needle was then removed and an 11 b lade scalpel was used to make a 1cm skin incision. A 5 fr peel-away sheath was advanced over the wir e and into the venous system. A measurement was then made using the existing wire and live fluoroscop ic guidance. The wire was then removed and trimmed. The PICC was advanced through the peel-away sheat h and into the venous system. The peel-away sheath was removed and the catheter was adhered to the pa tients arm with a stat lock. The catheter was then aspirated and flushed and a sterile bandage was pl aced over the access site. A fluoroscopic spot image was saved to PACS confirming the catheter tip w ithin the superior vena cava. IMPRESSION: SUCCESSFUL PLACEMENT OF A 5 FR DUAL LUMEN 38 CM PICC IN THE LEFT BASILIC VEIN. COMMENT: Patient medication list reviewed: Yes- Quality ID# 130:Eligible professional attests to doc umenting in the medical record they obtained, updated, or reviewed the patient's current medications. . Quality ID 145: Final reports for procedures using fluoroscopy that document radiation exposure rebecca angy, or exposure time and number of fluorographic images (if radiation exposure indices are not avail able) Quality ID #76: The patient was prepped and draped using maximum sterile barrier technique including cap, mask, sterile gown, sterile gloves, a large sterile sheet, hand hygiene, and 2% Chlorhexidine fo r cutaneous antisepsis. When ultrasound is used, sterile ultrasound techniques are followed requiring sterile gel and sterile probes. TECHNICAL DOCUMENTATION: JOB ID: [id number] 2010 [employer]- All Rights Reserved Reading location - IP/workstation name: [email or web address]
[2019-11-04] MEDS: NIFEDIPINE 30 MG TAB.ER.24 PO SCH (10:23)
[2019-11-04] MEDS: NORMAL SALINE 10 ML SDV (SCHEDULED) IV SCH ×2 (10:25→22:48)
[2019-11-04] MEDS: LIDOCAINE 5% (700 MG) TRANSDERMAL ADH..PATCH TP SCH (10:33)
[2019-11-04] MEDS: PROMETHAZINE HCL INJ 25 MG/1 ML VIAL IV PRN ×2 (12:41→18:31)
--- NOTE | 2019-11-04 14:19 | PDOC PROGRESS REPORT ---
Subjective Progress Note for:: 11/04/19 Reason For Visit: SC PAIN CRISIS 11/04/2019 Sickle cell pain crisis, anemia, chronic pain Physical Exam Vital Signs: Temp Pulse Resp BP Pulse Ox 100.1 F 128 H 18 127/66 H 93 11/04/19 13:31 11/04/19 13:31 11/04/19 13:31 11/04/19 13:31 11/04/19 13:31 Intake & Output 11/03/19 11/04/19 11/05/19 06:59 06:59 06:59 Intake Total 2040 3795 0 Output Total 950 1300 Balance 1090 2495 0 Weight 61.7 kg 64.4 kg General appearance: PRESENT: mild distress Respiratory exam: PRESENT: clear to auscultation william. ABSENT: rales, rhonchi, wheezes Cardiovascular exam: PRESENT: RRR. ABSENT: diastolic murmur, rubs, systolic murmur Neurological exam: PRESENT: alert, awake, oriented to person, oriented to place, oriented to time, oriented to situation, CN II-XII grossly intact. ABSENT: m otor sensory deficit Psychiatric exam: PRESENT: appropriate affect, normal mood. ABSENT: homicidal ideation, suicidal ideation Results Laboratory Results: 11/04/19 06:15 11/02/19 06:16 11/04/19 11/04/19 11/04/19 05:22 06:15 08:00 WBC Cancelled 17.7 H RBC Cancelled 2.25 L Hgb Cancelled 6.6 L Hct Cancelled 18.2 L MCV Cancelled 81 D MCH Cancelled 29.1 MCHC Cancelled 36.0 RDW Cancelled 22.7 H Plt Count Cancelled 147 L Blood Type O POSITIVE Antibody Screen NEGATIVE 10/31/19 10/31/19 17:28 18:10 Troponin I Cancelled < 0.012 Impressions: Chest X-Ray 10/31/19 17:23 IMPRESSION: MILD CARDIOMEGALY. NO ACUTE RADIOGRAPHIC FINDING IN THE CHEST. Chest/Abdomen CTA 10/31/19 19:21 IMPRESSION: Somewhat limited evaluation for pulmonary emboli secondary to motion artifact. No definite evidence of pulmonary embolism to the proximal segmental level. Trace left pleural effusion with superimposed areas of atelectasis. 1.2 cm incidental thyroid nodule. Recommend thyroid US. Reference: J Am Mariola Radiol. 2015 Feb;12(2): 143-50 TECHNICAL DOCUMENTATION: Quality ID # 436: Final reports with documentation of one or more dose reduction techniques (e.g., Automated exposure control, adjustment of the mA and/or kV according to patient size, use of iterative reconstruction technique) copyright 2011 [employer]- All Rights Reserved Thyroid Ultrasound 11/01/19 00:00 IMPRESSION: Small solid nodule left lobe. TI-RADS 3. 1 year follow-up recommended. PICC Line Insertion 11/04/19 00:00 IMPRESSION: SUCCESSFUL PLACEMENT OF A 5 FR DUAL LUMEN 38 CM PICC IN THE LEFT BASILIC VEIN. Assessment and Plan - Diagnosis (1) Pain management Is this a current diagnosis for this admission?: Yes (2) Sickle cell anemia with pain Is this a current diagnosis for this admission?: Yes - Plan Summary Summary: 11/03/2019 Patient was admitted on 10/31 with sickle cell crisis that has been going now for almost 2 months after a D&C procedure Oncology he is currently managing her pain and labs are being drawn every other day Vital signs this morning temperature 98.8 Pulse rate 87 but has been as high as 128 Oxygen saturation 96% on 2 L Post recent labs yesterday her hemoglobin was 8.4 whereas on admission it was 10.4 platelets are 196,000 Electrolytes are grossly normal Repeat labs are due tomorrow. Continue Dilaudid per hematology's supervision 11/04/2019 Patient has been periodically spiking a low grade temperature, today 100. Pulse between 107 and 140, pressure 120/61 Abrasions anywhere from 17-22 O2 sat between 85 and 99% with 2 to 5 L of nasal cannula Globin is gone down to 6.6 today and platelets are 147,000 Oncology has ordered a PICC line due to poor IV access, and 1 unit of packed cells - Time Time Spent with patient: 15-24 minutes
[2019-11-04] MEDS: DIPHENHYDRAMINE HCL 50 MG/ML VIAL IV PRN ×2 (16:26→22:42)
[2019-11-04 21:46] LABS: HEMATOCRIT 19.1 % (36.0-47.0); MEAN CORPUSCULAR HEMOGLOBIN 29.1 pg (27.0-33.4); MEAN CORPUSCULAR VOLUME 78 fl (80-97); PLATELET COUNT 178 10^3/uL (150-450); RED BLOOD COUNT 2.46 10^6/uL (3.72-5.28); RED CELL DISTRIBUTION WIDTH 21.4 % (11.5-14.0); WHITE BLOOD COUNT 18.3 10^3/uL (4.0-10.5)
[2019-11-04 21:50] LABS: HEMOGLOBIN 7.2 g/dL (12.0-15.5); MEAN CORPUSCULAR HGB CONC 37.5 g/dL (32.0-36.0)
--- NOTE | 2019-11-04 21:50 | RADIOLOGY REPORT (SQ) ---
EXAM DESCRIPTION: AP portable radiograph of the chest. CLINICAL HISTORY: 29 years Female, new onset resp distress COMPARISON: Portable view of the chest 10/31/2019 FINDINGS: Lungs: Extensive multifocal consolidation is noted in the mid and lower lung zones with air bronchograms. This is new when compared to the previous examination. No pneumothorax. Mediastinum: Cardiac silhouette is not obscured by the parenchymal consolidation. Left-sided PICC line is in place the tip of the catheters in the superior vena cava. Bones: Osseous structures are stable IMPRESSION: Interval development of extensive consolidation in the mid and lower lung zones bilaterally suggestive of severe bilateral pneumonia. Asymmetric pulmonary edema or pulmonary hemorrhage might also have this appearance.
[2019-11-04] MEDS ORDERED: MEROPENEM 1 GM VIAL IV SCH (22:00)
[2019-11-04] MEDS ORDERED: PHARMACY COMMUNICATION ORDER MC SCH (22:00)
[2019-11-04] MEDS ORDERED: VANCOMYCIN HCL INJ 1000 MG VIAL IV SCH (22:00)
[2019-11-04] MEDS ORDERED: MEROPENEM 1 GM VIAL IV PRN (22:12)
[2019-11-04] MEDS ORDERED: VANCOMYCIN HCL INJ 1000 MG VIAL IV PRN (22:23)
[2019-11-04] MEDS: AMITRIPTYLINE HCL 50 MG TABLET PO SCH (22:42)
[2019-11-04] MEDS ORDERED: MEROPENEM 1 GM VIAL ONE (23:24)
[2019-11-04] MEDS ORDERED: VANCOMYCIN HCL INJ 1000 MG VIAL ONE (23:24)
[2019-11-04] MEDS ORDERED: VANCOMYCIN HCL 1,250 MG in DEXTROSE 5%-WATER 250 ML IV ONE (23:30)
[2019-11-04] MEDS: MEROPENEM 1 GM in NORMAL SALINE 50 ML IV SCH (23:55)
[2019-11-05] MEDS ORDERED: IPRATROPIUM/ALBUTEROL 0.5-2.5 MG/3 ML AMPUL NEB SCH
[2019-11-05] MEDS ORDERED: VANCOMYCIN HCL INJ 500 MG VIAL ONE (00:44)
[2019-11-05] MEDS: HYDROMORPHONE HCL INJ/PF 2 MG/ML AMPULE IV PRN ×5 (01:33→11:46)
[2019-11-05] MEDS: ACETAMINOPHEN 325 MG TABLET PO PRN (02:48)
[2019-11-05] MEDS ORDERED: RINGERS SOLUTION,LACTATED 1,000 ML IV ONE (03:00)
[2019-11-05] MEDS ORDERED: VANCOMYCIN HCL INJ 1000 MG VIAL IV SCH (04:00)
[2019-11-05] MEDS: ALBUTEROL SULFATE HFA (90 MCG/PUFF) 8 GM MDI IH SCH ×3 (04:10→11:47)
[2019-11-05] MEDS ORDERED: ALBUTEROL SULFATE HFA (90 MCG/PUFF) 8 GM MDI IH ONE (04:15)
[2019-11-05] MEDS: NORMAL SALINE 1000 ML 1,000 ML IV PRN (05:52)
[2019-11-05] MEDS ORDERED: MEROPENEM 1 GM VIAL ONE (05:57)
[2019-11-05] MEDS: MEROPENEM 1 GM in NORMAL SALINE 50 ML IV SCH (06:27)
[2019-11-05] MEDS: HEPARIN SOD (PORCINE) 5,000 UNIT/ML 1 ML VIAL SUBCUT SCH (06:32)
[2019-11-05] MEDS: DIPHENHYDRAMINE HCL 50 MG/ML VIAL IV PRN (09:00)
--- NOTE | 2019-11-05 09:00 | PDOC PROGRESS REPORT ---
Subjective Progress Note for:: 11/05/19 Subjective:: Pt seems worse, discussed case w/ nursing and hospitalist team, resp status worsened on 5L now, CXR w/ b/l opacities. Atbx changed. Reason For Visit: SC PAIN CRISIS Physical Exam Vital Signs: Temp Pulse Resp BP Pulse Ox 100.3 F 131 H 36 H 134/66 H 96 11/05/19 07:14 11/05/19 07:14 11/05/19 07:14 11/05/19 07:14 11/05/19 07:14 Intake & Output 11/04/19 11/05/19 11/06/19 06:59 06:59 06:59 Intake Total 3795 3050 250 Output Total 1300 Balance 2495 3050 250 Weight 64.4 kg 60.3 kg Results Laboratory Results: 11/04/19 21:09 11/02/19 06:16 11/04/19 11/04/19 11/04/19 08:00 19:53 21:09 WBC Cancelled 18.3 H RBC Cancelled 2.46 L Hgb Cancelled 7.2 L Hct Cancelled 19.1 L MCV Cancelled 78 L MCH Cancelled 29.1 MCHC Cancelled 37.5 H RDW Cancelled 21.4 H Plt Count Cancelled 178 Blood Type O POSITIVE Antibody Screen NEGATIVE 10/31/19 10/31/19 17:28 18:10 Troponin I Cancelled < 0.012 Impressions: Chest/Abdomen CTA 10/31/19 19:21 IMPRESSION: Somewhat limited evaluation for pulmonary emboli secondary to motion artifact. No definite evidence of pulmonary embolism to the proximal segmental level. Trace left pleural effusion with superimposed areas of atelectasis. 1.2 cm incidental thyroid nodule. Recommend thyroid US. Reference: J Am Mariola Radiol. 2015 Aug;12(2): 143-50 TECHNICAL DOCUMENTATION: Quality ID # 436: Final reports with documentation of one or more dose reduction techniques (e.g., Automated exposure control, adjustment of the mA and/or kV according to patient size, use of iterative reconstruction technique) copyright 2011 [employer]- All Rights Reserved Thyroid Ultrasound 11/01/19 00:00 IMPRESSION: Small solid nodule left lobe. TI-RADS 3. 1 year follow-up recommended. Chest X-Ray 11/04/19 00:00 IMPRESSION: Interval development of extensive consolidation in the mid and lower lung zones bilaterally suggestive of severe bilateral pneumonia. Asymmetric pulmonary edema or pulmonary hemorrhage might also have this appearance. PICC Line Insertion 11/04/19 00:00 IMPRESSION: SUCCESSFUL PLACEMENT OF A 5 FR DUAL LUMEN 38 CM PICC IN THE LEFT BASILIC VEIN. Status: Image reviewed by me Assessment & Plan - Diagnosis (1) Sickle cell anemia with pain Is this a current diagnosis for this admission?: Yes Plan: Cont current pain regimen and other supportive measures (2) Acute respiratory failure with hypoxemia Is this a current diagnosis for this admission?: Yes Plan: D/w hospitalist team, maybe due to infection vs overload vs emerging chest crisis. Agree w/ atbx changes, may consider lasix for overload, but also str ongly consider transfer to tertiary care institution that has ability to treat chest crisis w/ exchange transfusion. - Time Time Spent with patient: 25-34 minutes
[2019-11-05] MEDS: FOLIC ACID 1 MG TABLET PO SCH (09:33)
[2019-11-05] MEDS: NIFEDIPINE 30 MG TAB.ER.24 PO SCH (09:33)
[2019-11-05] MEDS: AMLODIPINE BESYLATE 5 MG TABLET PO SCH (09:33)
[2019-11-05] MEDS: CETIRIZINE 10 MG TABLET PO SCH (09:34)
[2019-11-05] MEDS: MAGNESIUM OXIDE 400 MG TABLET PO SCH (09:34)
[2019-11-05] MEDS: AMITRIPTYLINE HCL 25 MG TABLET PO SCH (09:34)
[2019-11-05] MEDS: LIDOCAINE 5% (700 MG) TRANSDERMAL ADH..PATCH TP SCH (09:35)
[2019-11-05] MEDS: DOCUSATE SODIUM 100 MG CAPSULE PO SCH (09:36)
[2019-11-05] MEDS: NORMAL SALINE 10 ML SDV (SCHEDULED) IV SCH (09:36)
[2019-11-05] MEDS ORDERED: FUROSEMIDE INJ/PF 20 MG/2 ML SDV IV ONE (09:45)
[2019-11-05] MEDS ORDERED: FAMOTIDINE 20 MG TABLET PO SCH (10:00)
[2019-11-05] MEDS ORDERED: AZITHROMYCIN 500 MG in DEXTROSE 5%-WATER 250 ML IV SCH (10:00)
[2019-11-05] MEDS ORDERED: AZITHROMYCIN INJ 500 MG VIAL IV SCH (10:00)
--- NOTE | 2019-11-05 10:43 | PDOC TRANSFER SUMMARY ---
General Admission Date/PCP: 10/31/19 23:12 AMALIA OROZCO PA-C Admission Date: 11/01/19 Transfer Date: 11/05/19 Accepting Facility: [facility] Accepting Physician: Dr. Dave Van Resuscitation Status: Full Code - Transfer Diagnosis (1) Pain management Is this a current diagnosis for this admission?: Yes (2) Sickle cell anemia with pain Is this a current diagnosis for this admission?: Yes (3) Bilateral pneumonia Is this a current diagnosis for this admission?: Yes (4) Rule out acute chest syndrome Is this a current diagnosis for this admission?: Yes - Transfer Medications Home Medications: Folic Acid 1 mg PO DAILY 07/11/19 Oxycodone HCl 15 mg PO Q3HP PRN 07/11/19 Amitriptyline HCl [Elavil 25 mg Tablet] 25 mg PO DAILY 10/04/19 Amitriptyline HCl [Elavil 25 mg Tablet] 50 mg PO QHS 10/04/19 Amlodipine Besylate [Norvasc 5 mg Tablet] 5 mg PO DAILY 10/04/19 Butalb/Acetaminophen/Caffeine [Fioricet (50-325-40 mg) Tablet] 1 tab PO Q4HP PRN MDD 6 TABS 10/04/19 Cetirizine HCl [Zyrtec 10 mg Tablet] 10 mg PO DAILY 10/04/19 Hydroxyurea 1,500 mg PO SUTUTHSA@1000 10/04/19 Hydroxyurea 2,000 mg PO MOWEFR@1000 10/04/19 Nifedipine [Nifedipine ER] 30 mg PO DAILY 11/01/19 Transfer Medications: Current Medications Acetaminophen (Tylenol 325 Mg Tablet) 650 mg PO Q4HP PRN PRN Reason: FOR PAIN OR TEMP Stop: 11/30/19 22:45 Last Admin: 11/05/19 02:48 Dose: 650 mg Documented by: Acetaminophen/Butalbital/Caffeine (Fioricet (50-325-40 Mg) Tablet) 1 tab PO Q4HP PRN PRN Reason: MIGRAINE Stop: 12/01/19 10:42 Al Hydrox/Mg Hydrox/Simethicone (Maalox Plus Susp 30 Udcup) 30 ml PO Q6HP PRN PRN Reason: HEARTBURN Stop: 11/30/19 22:45 Albuterol (Ventolin Hfa 8 Gm Mdi) 2 puff IH RTQ4 [facility] Stop: 12/05/19 03:59 Last Admin: 11/05/19 09:36 Dose: 1 inhaler Documented by: Albuterol/Ipratropium (Duoneb 3 Ml Ampul) 3 ml NEB [id number] PRN PRN Reason: SHORTNESS OF BREATH Stop: 11/30/19 22:45 Amitriptyline HCl (Elavil 25 Mg Tablet) 25 mg PO DAILY [facility] Stop: 12/02/19 09:59 Last Admin: 11/05/19 09:34 Dose: 25 mg Documented by: Amitriptyline HCl (Elavil 50 Mg Tablet) 50 mg PO QHS [facility] Stop: 12/01/19 21:59 Last Admin: 11/04/19 22:42 Dose: 50 mg Documented by: Amlodipine Besylate (Norvasc 5 Mg Tablet) 5 mg PO DAILY [facility] Stop: 12/02/19 09:59 Last Admin: 11/05/19 09:33 Dose: 5 mg Documented by: Bisacodyl (Dulcolax 10 Mg Supp.Rect) 10 mg WA DAILYP PRN PRN Reason: UNRESOLVED CONSTIPATION Stop: 12/02/19 18:28 Bisacodyl (Dulcolax 5 Mg Tablet) 5 mg PO DAILYP PRN PRN Reason: UNRESOLVED CONSTIPATION Stop: 12/02/19 18:28 Cetirizine HCl (Zyrtec 10 Mg Tablet) 10 mg PO DAILY [facility] Stop: 12/02/19 09:59 Last Admin: 11/05/19 09:34 Dose: 10 mg Documented by: Diphenhydramine HCl (Benadryl Inj 50 Mg/1 Ml Vial) 25 mg IV Q6HP PRN PRN Reason: ITCHING Stop: 12/02/19 16:29 Last Admin: 11/05/19 09:00 Dose: 25 mg Documented by: Docusate Sodium (Colace 100 Mg Capsule) 100 mg PO DAILY [facility] Stop: 12/02/19 18:59 Last Admin: 11/05/19 09:36 Dose: Not Given Documented by: Famotidine (Pepcid 20 Mg Tablet) 20 mg PO Q12 [facility] Stop: 12/05/19 09:59 Last Admin: 11/05/19 09:33 Dose: 20 mg Documented by: Folic Acid (Folvite 1 Mg Tablet) 1 mg PO DAILY [facility] Stop: 12/02/19 09:59 Last Admin: 11/05/19 09:33 Dose: 1 mg Documented by: Heparin Sodium (Porcine) (Heparin Inj 5,000 Units/Ml 1 Ml Vial) 5,000 unit SUBCUT Q8 [facility] Stop: 12/01/19 05:59 Last Admin: 11/05/19 06:32 Dose: 5,000 unit Documented by: Heparin Sodium (Porcine) (Heparin Flush 10 Unit/Ml 5 Ml Disp.Syrg) 30 unit IV Q12 [facility] Stop: 12/04/19 09:59 Last Admin: 11/05/19 09:35 Dose: 30 unit Documented by: Heparin Sodium (Porcine) (Heparin Flush 10 Unit/Ml 5 Ml Disp.Syrg) 30 unit IV .AFTER EACH USE PRN Stop: 12/04/19 09:59 Last Admin: 11/05/19 06:32 Dose: 30 unit Documented by: Hydromorphone HCl (Dilaudid Inj/Pf 2 Mg/Ml Ampule) 4 mg IV Q2HP PRN PRN Reason: FOR PAIN Stop: 11/09/19 16:28 Last Admin: 11/05/19 09:00 Dose: 4 mg Documented by: Meropenem 1 gm/ Sodium (Chloride) 50 mls @ 100 mls/hr IV Q8 [facility] Stop: 11/11/19 21:59 Last Admin: 11/05/19 06:27 Dose: Not Given Documented by: Azithromycin 500 mg/ Dextrose 250 mls @ 250 mls/hr IV DAILY [facility] Stop: 11/12/19 09:59 Last Admin: 11/05/19 09:36 Dose: Not Given Documented by: Vancomycin HCl 1,000 mg/ (Dextrose) 250 mls @ 166.667 mls/hr IV Q8A [facility] Stop: 11/12/19 10:59 Levalbuterol HCl (Xopenex Neb 1.25 Mg/3 Ml Ampul) 1.25 mg NEB RTQ3 [facility] Stop: 12/05/19 10:59 Lidocaine (Lidoderm 5% (700 Mg) Transdermal Patch) 1 patch TP DAILY [facility] Stop: 12/02/19 09:59 Last Admin: 11/05/19 09:35 Dose: 1 patch Documented by: Magnesium Hydroxide (Milk Of Magnesia 30 Ml Udcup) 30 ml PO HSP PRN PRN Reason: FOR CONSTIPATION Stop: 11/30/19 22:45 Magnesium Oxide (Mag-Ox 400 Mg Tablet) 400 mg PO BID [facility] Stop: 12/01/19 09:59 Last Admin: 11/05/19 09:34 Dose: 400 mg Documented by: Nifedipine (Procardia Xl 30 Mg Tablet) 30 mg PO DAILY [facility] Stop: 12/02/19 09:59 Last Admin: 11/05/19 09:33 Dose: 30 mg Documented by: Pharmacy Profile Note (Medication Communication Order) 1 each [facility] QHS [facility] Stop: 12/04/19 21:59 Last Admin: 11/04/19 22:43 Dose: 1 each Documented by: Promethazine HCl (Phenergan Inj 25 Mg/1 Ml Vial) 25 mg IV Q6HP PRN PRN Reason: NAUSEA THAT IS UNRESOLVED Stop: 12/02/19 16:30 Last Admin: 11/04/19 18:31 Dose: 25 mg Documented by: Sodium Chloride (Nacl 0.9% Inj/Pf 10 Ml Sdv) 10 ml IV .AFTER EACH USE PRN PRN Reason: AFTER EACH INTERMITTENT USE Stop: 12/04/19 09:46 Sodium Chloride (Nacl 0.9% Inj/Pf 10 Ml Sdv) 10 ml IV Q12 [facility] Stop: 12/04/19 09:59 Last Admin: 11/05/19 09:36 Dose: 10 ml Documented by: - Allergies Allergies/Adverse Reactions: ceftriaxone sodium [From Rocephin] Allergy (Verified 10/31/19 20:52) Cephalosporins Allergy (Verified 10/31/19 20:52) milk [Milk] Allergy (Verified 10/31/19 20:52) Shellfish * [Shellfish] Allergy (Verified 10/31/19 20:52) wheat [Wheat] Allergy (Verified 10/31/19 20:52) Hospital Course Hospital Course: Patient was seen in the emergency room on 10/31/2023 pain in her chest back and legs which according to the patient was "typical sickle cell crisis". Patient was actually admitted [facility] 11/01/2019 for pain management by hematology and medical management by the hospitalist. On admission patient had a chest x-ray that was basically normal except for some mild cardiomegaly. Patient also had a CTA chest which showed no evidence of pulmonary embolism or infiltrates. On admission patient's respirations were between 18 and 20 her oxygen saturations in the upper 90s on 2 L of nasal cannula. Ever this seemed to change on the when her oxygen requirement went up to approximately 5 L, there are saturations dropping down into the low 90s or even upper 80s. At the same time patient's hemoglobin went from 8.4 down to 6.6. It was felt that her hypoxia and tachycardia was due to her dropping of her hemoglobin. 1 unit of packed cells was ordered and the patient received those yesterday. Last night however the patient continued to become hypoxic and tachypneic as well as tachycardic and a chest x-ray was ordered, which revealed bilateral infiltrates worrisome for pneumonia, or pulmonary edema versus pulmonary hemorrhage. I have seen the patient this morning and discussion with hematology feel that the patient would be better served by transfer to a higher level of care. Patient is able to speak with me in full sentences , she is having episodes of confusion which I would attribute either to her Dilaudid and/or hypoxia . At the time of my visit patient was sitting up on the bedside commode , however patient has a propensity to worsen quickly. Last night patient was placed on meropenem Zithromax and vancomycin. On admission patient's retake count was 10.14, and this usually runs between 6 and 9. It was tested for COVID last night by PCR technique and was found to be negative. On admission patient's white count was 14,400, today it was 18,300 Patient has been graciously accepted in transfer [facility]. Dave Boles Physical Exam Vital Signs: Temp Pulse Resp BP Pulse Ox 100.3 F 131 H 36 H 134/66 H 96 11/05/19 07:14 11/05/19 07:14 11/05/19 07:14 11/05/19 07:14 11/05/19 07:14 Intake & Output 11/04/19 11/05/19 11/06/19 06:59 06:59 06:59 Intake Total 3795 3050 721 Output Total 1300 Balance 2495 3050 721 Weight 64.4 kg 60.3 kg General appearance: PRESENT: mild distress, other - Respiratory Respiratory exam: PRESENT: rales, tachypnea, wheezes Cardiovascular exam: PRESENT: tachycardia Neurological exam: PRESENT: alert, awake, other - Patient is oriented to person place and time. However she is also confused at times and saying things out of context Psychiatric exam: PRESENT: anxious Results Laboratory Results: 11/04/19 21:09 11/02/19 06:16 11/04/19 11/04/19 11/04/19 08:00 19:53 21:09 WBC Cancelled 18.3 H RBC Cancelled 2.46 L Hgb Cancelled 7.2 L Hct Cancelled 19.1 L MCV Cancelled 78 L MCH Cancelled 29.1 MCHC Cancelled 37.5 H RDW Cancelled 21.4 H Plt Count Cancelled 178 Blood Type O POSITIVE Antibody Screen NEGATIVE 10/31/19 10/31/19 17:28 18:10 Troponin I Cancelled < 0.012 Impressions: Chest/Abdomen CTA 10/31/19 19:21 IMPRESSION: Somewhat limited evaluation for pulmonary emboli secondary to motion artifact. No definite evidence of pulmonary embolism to the proximal segmental level. Trace left pleural effusion with superimposed areas of atelectasis. 1.2 cm incidental thyroid nodule. Recommend thyroid US. Reference: J Am Mariola Radiol. 2015 Aug;12(2): 143-50 TECHNICAL DOCUMENTATION: Quality ID # 436: Final reports with documentation of one or more dose reduction techniques (e.g., Automated exposure control, adjustment of the mA and/or kV according to patient size, use of iterative reconstruction technique) copyright 2011 [employer]- All Rights Reserved Thyroid Ultrasound 11/01/19 00:00 IMPRESSION: Small solid nodule left lobe. TI-RADS 3. 1 year follow-up recommended. Chest X-Ray 11/04/19 00:00 IMPRESSION: Interval development of extensive consolidation in the mid and lower lung zones bilaterally suggestive of severe bilateral pneumonia. Asymmetric pulmonary edema or pulmonary hemorrhage might also have this appearance. PICC Line Insertion 11/04/19 00:00 IMPRESSION: SUCCESSFUL PLACEMENT OF A 5 FR DUAL LUMEN 38 CM PICC IN THE LEFT BASILIC VEIN. Plan Discharge Plan: Patient is to be transferred [facility] to the care of the hospitalists Dr. Dave Swift. Patient has new radiographic findings on chest x-ray suggestive of bilateral pneumonia versus pulmonary hemorrhage secondary to her sickle cell disease. Patient warrants transfer due to her increasing and hypoxia, tachycardia, tachypnea Patient appears medically stable for transfer Time Spent: Greater than 30 Minutes
[2019-11-05] MEDS ORDERED: VANCOMYCIN HCL 1,000 MG in DEXTROSE 5%-WATER 250 ML IV SCH (11:00)
[2019-11-05] MEDS ORDERED: LEVALBUTEROL HCL NEB 1.25 MG/3 ML AMPUL NEB SCH (11:00)
[2019-11-05 11:55] VITALS: BP 140/60
== END 2019-11-05 13:00 | disposition short-term general hospital (02) | DRG 811 ==
LOC: ER 17:09 → EH 23:12 → 4S 11-01 00:14 → 5 11-04 23:38
PROVIDERS: ADMIT Internal Medicine; ATTEND Physician Assistant
PROC: 30233N1 Transfusion of Nonautologous Red Blood Cells into Peripheral Vein, Percutaneous Approach (ICD-10-PCS; principal; 2019-11-04)
PROC: 02HV33Z Insertion of Infusion Device into Superior Vena Cava, Percutaneous Approach (ICD-10-PCS; 2019-11-04)
DX: D57.00 Hb-SS disease with crisis, unspecified (principal); J18.9 Pneumonia, unspecified organism; I50.32 Chronic diastolic (congestive) heart failure; I11.0 Hypertensive heart disease with heart failure; B96.20 Unspecified Escherichia coli [E. coli] as the cause of diseases classified elsewhere; B95.62 Methicillin resistant Staphylococcus aureus infection as the cause of diseases classified elsewhere; K21.9 Gastro-esophageal reflux disease without esophagitis; F32.9 Major depressive disorder, single episode, unspecified; E04.1 Nontoxic single thyroid nodule; R09.02 Hypoxemia; Z20.828 Contact with and (suspected) exposure to other viral communicable diseases; Z79.899 Other long term (current) drug therapy; Z88.1 Allergy status to other antibiotic agents; Z91.02 Food additives allergy status; Z91.011 Allergy to milk products; Z91.013 Allergy to seafood; Z83.3 Family history of diabetes mellitus; Z80.7 Family history of other malignant neoplasms of lymphoid, hematopoietic and related tissues; Z80.1 Family history of malignant neoplasm of trachea, bronchus and lung
CPT/HCPCS: 36415; 36430; 36573; 71045; 71275; 76536; 80048; 80053; 80307; 81001; 83735; 84439; 84443; 84481; 84484; 84702; 84703; 85025; 85027; 85045; 85379; 86850; 86900; 86901; 86920; 87040; 87070; 87077; 87186; 87205; 87635; 93005; 93010; 94640; 96361; 96374; 96375; 96376; 99285; C1758; J0456; J1170; J1200; J1642; J1644; J1885; J1940; J2185; J2405; J2550; J3370; J3490; J7030; J7060; J7120; J7620; P9016

== ENCOUNTER 2019-11-16 10:56 | Outpatient (CLI) | payer MEDICAID ==
[2019-11-16] MEDS ORDERED: HYDROMORPHONE HCL INJ/PF 2 MG/ML AMPULE IV PRN (11:40)
[2019-11-16] MEDS ORDERED: NORMAL SALINE 1000 ML 2,000 ML IV PRN (11:40)
[2019-11-16] MEDS ORDERED: ONDANSETRON HCL INJ/PF 4 MG/2 ML SDV IV PRN ×2 (11:42→13:00)
[2019-11-16] MEDS ORDERED: DIPHENHYDRAMINE HCL 50 MG/ML VIAL IV PRN (11:42)
== END 2019-11-16 14:30 | disposition home or self-care (01) ==
LOC: II 10:56 → 3S 11:18 → II 14:30
PROVIDERS: ATTEND Internal Medicine
DX: D57.00 Hb-SS disease with crisis, unspecified (principal); E86.0 Dehydration; R11.0 Nausea; R52 Pain, unspecified
CPT/HCPCS: J1200; J1170; J2405; J7030; 96361; 96374; 96375

== ENCOUNTER 2019-11-17 12:06 | Outpatient (CLI) | payer MEDICAID ==
[2019-11-17] MEDS ORDERED: DIPHENHYDRAMINE HCL 50 MG/ML VIAL IV PRN (12:22)
[2019-11-17] MEDS ORDERED: ONDANSETRON HCL INJ/PF 4 MG/2 ML SDV IV PRN (12:23)
[2019-11-17] MEDS ORDERED: HYDROMORPHONE HCL INJ/PF 2 MG/ML AMPULE IV PRN (12:24)
[2019-11-17] MEDS ORDERED: NORMAL SALINE 1000 ML 2,000 ML IV ONE (13:00)
[2019-11-17 13:31] VITALS: BP 142/86
== END 2019-11-17 16:24 | disposition home or self-care (01) ==
LOC: II 12:06 → 5TH 12:10 → II 16:24
PROVIDERS: ATTEND Internal Medicine
DX: D57.00 Hb-SS disease with crisis, unspecified (principal); E86.0 Dehydration; R11.0 Nausea; R52 Pain, unspecified
CPT/HCPCS: 96374; 96375; 96361; J1200; J1170; J2405

== ENCOUNTER 2019-11-18 11:00 | Outpatient (CLI) | payer MEDICAID ==
[2019-11-18] MEDS ORDERED: ONDANSETRON HCL INJ/PF 4 MG/2 ML SDV IV PRN (11:07)
[2019-11-18] MEDS ORDERED: DIPHENHYDRAMINE HCL 50 MG/ML VIAL IV PRN (11:07)
[2019-11-18] MEDS ORDERED: NORMAL SALINE 1000 ML 2,000 ML IV PRN (11:08)
[2019-11-18] MEDS ORDERED: HYDROMORPHONE HCL INJ/PF 2 MG/ML AMPULE IV PRN (11:09)
[2019-11-18 11:13] VITALS: BP 151/93
== END 2019-11-18 14:00 | disposition home or self-care (01) ==
LOC: II 11:00 → 5TH 11:06 → II 14:00
PROVIDERS: ATTEND Internal Medicine
DX: D57.00 Hb-SS disease with crisis, unspecified (principal); E86.0 Dehydration; R11.0 Nausea; R52 Pain, unspecified
CPT/HCPCS: 96374; 96375; 96361; J1200; J1170; J2405; 96360

== ENCOUNTER 2019-12-01 11:47 | Outpatient (CLI) | payer MEDICAID ==
[2019-12-01] MEDS ORDERED: DIPHENHYDRAMINE HCL 50 MG/ML VIAL IV PRN (11:57)
[2019-12-01] MEDS ORDERED: NORMAL SALINE 1000 ML 2,000 ML IV PRN (11:58)
[2019-12-01] MEDS ORDERED: ONDANSETRON HCL INJ/PF 4 MG/2 ML SDV IV PRN (11:58)
[2019-12-01] MEDS ORDERED: HYDROMORPHONE HCL INJ/PF 2 MG/ML AMPULE IV PRN (11:59)
[2019-12-01 12:07] VITALS: BP 137/79
[2019-12-01] MEDS ORDERED: NORMAL SALINE 1000 ML 1,000 ML IV PRN (14:30)
== END 2019-12-01 14:40 | disposition home or self-care (01) ==
LOC: II 11:47 → 5TH 11:49 → II 14:40
PROVIDERS: ATTEND Internal Medicine
DX: D57.00 Hb-SS disease with crisis, unspecified (principal); E86.0 Dehydration; R11.0 Nausea; R52 Pain, unspecified
CPT/HCPCS: 96374; 96375; 96361; J1200; J1170; J2405

== ENCOUNTER 2019-12-02 08:56 | Outpatient (CLI) | payer MEDICAID ==
[2019-12-02 09:04] VITALS: BP 127/56
[2019-12-02] MEDS ORDERED: DIPHENHYDRAMINE HCL 50 MG/ML VIAL IV PRN (09:12)
[2019-12-02] MEDS ORDERED: NORMAL SALINE 1000 ML 1,000 ML IV PRN (09:13)
[2019-12-02] MEDS ORDERED: ONDANSETRON HCL INJ/PF 4 MG/2 ML SDV IV PRN (09:13)
[2019-12-02] MEDS ORDERED: HYDROMORPHONE HCL INJ/PF 2 MG/ML AMPULE IV PRN (09:14)
== END 2019-12-02 11:00 | disposition home or self-care (01) ==
LOC: II 08:56 → 5TH 09:11 → II 11:00
PROVIDERS: ATTEND Internal Medicine
DX: D57.00 Hb-SS disease with crisis, unspecified (principal); E86.0 Dehydration; R11.0 Nausea; R52 Pain, unspecified
CPT/HCPCS: 96374; 96375; J1200; J1170; J2405; 96361

== ENCOUNTER 2019-12-03 10:58 | Outpatient (CLI) | payer MEDICAID ==
[~2019-12-03 10:58] MED LIST changes: +NORMAL SALINE 1000 ML 1,000 ML IV PRN
[2019-12-03 11:17] VITALS: BP 125/51
== END 2019-12-03 12:57 | disposition home or self-care (01) ==
LOC: II 10:58 → 5TH 11:00 → II 12:57
PROVIDERS: ATTEND Internal Medicine
DX: D57.00 Hb-SS disease with crisis, unspecified (principal); E86.0 Dehydration; R11.0 Nausea; R52 Pain, unspecified
CPT/HCPCS: 96374; 96375; 96361; J1200; J1170; J2405

== ENCOUNTER 2019-12-04 09:05 | Outpatient (CLI) | payer MEDICAID ==
[2019-12-04 09:22] VITALS: BP 137/76
== END 2019-12-04 11:00 | disposition home or self-care (01) ==
LOC: II 09:05 → 5TH 09:07 → II 11:00
PROVIDERS: ATTEND Internal Medicine
DX: D57.00 Hb-SS disease with crisis, unspecified (principal); E86.0 Dehydration; R11.0 Nausea; R52 Pain, unspecified
CPT/HCPCS: 96374; 96375; 96361; J1200; J1170; J2405

== ENCOUNTER 2019-12-07 12:22 | Outpatient (CLI) | payer MEDICAID ==
[2019-12-07] MEDS ORDERED: HYDROMORPHONE HCL INJ/PF 2 MG/ML AMPULE ONE (12:39)
[2019-12-07] MEDS ORDERED: ONDANSETRON HCL INJ/PF 4 MG/2 ML SDV ONE (12:40)
[2019-12-07] MEDS ORDERED: DIPHENHYDRAMINE HCL 50 MG/ML VIAL ONE (12:41)
[2019-12-07] MEDS ORDERED: DIPHENHYDRAMINE HCL 50 MG/ML VIAL IV PRN (12:43)
[2019-12-07] MEDS ORDERED: ONDANSETRON HCL INJ/PF 4 MG/2 ML SDV IV PRN (12:44)
[2019-12-07] MEDS ORDERED: NORMAL SALINE 1000 ML 1,000 ML IV PRN (12:44)
[2019-12-07] MEDS ORDERED: HYDROMORPHONE HCL INJ/PF 2 MG/ML AMPULE IV PRN (12:45)
== END 2019-12-07 13:54 | disposition home or self-care (01) ==
LOC: II 12:22 → 2S 12:24 → II 13:54
PROVIDERS: ATTEND Internal Medicine
DX: D57.00 Hb-SS disease with crisis, unspecified (principal); E86.0 Dehydration; R11.0 Nausea; R52 Pain, unspecified
CPT/HCPCS: 96374; 96375; 96361; J1200; J1170; J2405; J7030

== ENCOUNTER 2019-12-08 10:52 | Outpatient (CLI) | payer MEDICAID ==
[2019-12-08 11:15] VITALS: BP 128/83
== END 2019-12-08 12:45 | disposition home or self-care (01) ==
LOC: II 10:52 → 5TH 10:54 → II 12:45
PROVIDERS: ATTEND Internal Medicine
DX: D57.00 Hb-SS disease with crisis, unspecified (principal); E86.0 Dehydration; R11.0 Nausea; R52 Pain, unspecified
CPT/HCPCS: 96374; 96375; 96361; J1200; J1170; J2405

== ENCOUNTER 2019-12-09 11:54 | Outpatient (CLI) | payer MEDICAID ==
[2019-12-09 12:06] VITALS: BP 106/65
== END 2019-12-09 13:28 | disposition home or self-care (01) ==
LOC: II 11:54 → 5TH 11:56 → II 13:28
PROVIDERS: ATTEND Internal Medicine
DX: D57.00 Hb-SS disease with crisis, unspecified (principal); E86.0 Dehydration; R11.0 Nausea; R52 Pain, unspecified
CPT/HCPCS: 96374; 96375; 96361; J1200; J1170; J2405

== ENCOUNTER 2019-12-10 12:23 | Outpatient (CLI) | payer MEDICAID ==
[2019-12-10 12:31] VITALS: BP 128/78
== END 2019-12-10 13:54 | disposition home or self-care (01) ==
LOC: II 12:23 → 5TH 12:25 → II 13:54
PROVIDERS: ATTEND Internal Medicine
DX: D57.00 Hb-SS disease with crisis, unspecified (principal); E86.0 Dehydration; R11.0 Nausea; R52 Pain, unspecified
CPT/HCPCS: 96374; 96375; 96361; J1200; J1170; J2405

== ENCOUNTER → 2019-12-14 | Outpatient (CLI) | payer MEDICAID ==
[~2019-12-14] MED LIST changes: +DIPHENHYDRAMINE HCL 50 MG/ML VIAL ONE; +HYDROMORPHONE HCL INJ/PF 2 MG/ML AMPULE ONE; +ONDANSETRON HCL INJ/PF 4 MG/2 ML SDV ONE
[2019-12-14 16:33] VITALS: BP 132/67
== END ==
LOC: II 14:36
PROVIDERS: ATTEND Internal Medicine
DX: D57.00 Hb-SS disease with crisis, unspecified (principal); E86.0 Dehydration; R11.0 Nausea; R52 Pain, unspecified
CPT/HCPCS: 96374; 96375; 96361; J1200; J1170; J2405; 96365; 96366

== ENCOUNTER 2019-12-15 13:15 | Outpatient (CLI) | payer MEDICAID ==
[2019-12-15] MEDS ORDERED: DIPHENHYDRAMINE HCL 50 MG/ML VIAL IV PRN (13:53)
[2019-12-15 13:54] VITALS: BP 151/71
[2019-12-15] MEDS ORDERED: ONDANSETRON HCL INJ/PF 4 MG/2 ML SDV IV PRN (13:54)
[2019-12-15] MEDS ORDERED: NORMAL SALINE 1000 ML 1,000 ML IV PRN (13:54)
[2019-12-15] MEDS ORDERED: HYDROMORPHONE HCL INJ/PF 2 MG/ML AMPULE IV PRN (13:55)
== END 2019-12-15 15:00 | disposition home or self-care (01) ==
LOC: II 13:15 → 5TH 13:47 → II 15:00
PROVIDERS: ATTEND Internal Medicine
DX: D57.00 Hb-SS disease with crisis, unspecified (principal); E86.0 Dehydration; R11.0 Nausea; R52 Pain, unspecified
CPT/HCPCS: 96374; 96375; 96361; J1200; J1170; J2405

== ENCOUNTER 2019-12-16 12:00 | Outpatient (CLI) | payer MEDICAID ==
[2019-12-16 12:11] VITALS: BP 125/61
[2019-12-16] MEDS ORDERED: NORMAL SALINE 1000 ML 1,000 ML IV PRN (12:18)
[2019-12-16] MEDS ORDERED: DIPHENHYDRAMINE HCL 50 MG/ML VIAL IV PRN (12:18)
[2019-12-16] MEDS ORDERED: ONDANSETRON HCL INJ/PF 4 MG/2 ML SDV IV PRN (12:18)
[2019-12-16] MEDS ORDERED: HYDROMORPHONE HCL INJ/PF 2 MG/ML AMPULE IV PRN (12:19)
== END 2019-12-16 13:30 | disposition home or self-care (01) ==
LOC: II 12:00 → 5TH 12:13 → II 13:30
PROVIDERS: ATTEND Internal Medicine
DX: D57.00 Hb-SS disease with crisis, unspecified (principal); E86.0 Dehydration; R11.0 Nausea; R52 Pain, unspecified
CPT/HCPCS: 96374; 96375; 96361; J1200; J1170; J2405

== ENCOUNTER 2019-12-17 11:34 | Emergency (ER) | payer MEDICAID ==
--- NOTE | 2019-12-17 11:46 | ER Document Report ---
ED Medical Screen (RME) - General Chief Complaint: Abdominal Pain Stated Complaint: ABDOMINAL PAIN Time Seen by Provider: 12/17/19 11:42 Primary Care Provider: AMALIA OROZCO PA-C [Primary Care Provider] - Follow up as needed Mode of Arrival: Ambulatory Information source: Patient Notes: 29-year-old female presented to ED for complaint of lower abdominal pain nausea and vomiting vomiting x2 today. She states she has had the pain for 2 days. She is a sickle cell patient. She states she sometimes gets the symptoms with her sickle cell. She is alert oriented respirations regular and unlabored speaking in full sentences. She states her pain is a level 4 at this time. I have greeted and performed a rapid initial assessment of this patient. A comprehensive ED assessment and evaluation of the patient, analysis of test results and completion of medical decision making process will be conducted by an additional ED providers. TRAVEL OUTSIDE OF THE [place] IN LAST 30 DAYS: No - HPI Onset: Other Onset/Duration: Intermittent - Days Quality of pain: Cramping Severity: Moderate Pain Level: 4 Associated Symptoms: Nausea, Vomiting - Related Data Allergies/Adverse Reactions: ceftriaxone sodium [From Rocephin] Allergy (Verified 10/31/19 20:52) Cephalosporins Allergy (Verified 10/31/19 20:52) milk [Milk] Allergy (Verified 10/31/19 20:52) Shellfish * [Shellfish] Allergy (Verified 10/31/19 20:52) wheat [Wheat] Allergy (Verified 10/31/19 20:52) Past Medical History - Social History Family history: None, Reviewed & Not Pertinent - Past Medical History Cardiac Medical History: Reports: Hx Hypertension, Hx Heart Murmur Denies: Hx Coronary Artery Disease, Hx Heart Attack Pulmonary Medical History: Reports: Hx Asthma, Hx Pneumonia - 10/03 Denies: Hx Bronchitis, Hx COPD, Hx Tuberculosis Neurological Medical History: Reports: Hx Migraine, Hx Seizures. Denies: Hx Cerebrovascular Accident Endocrine Medical History: Denies: Hx Diabetes Mellitus Type 1, Hx Diabetes Mellitus Type 2, Hx Hyperthyroidism, Hx Hypothyroidism Renal/ Medical History: Denies: Hx Peritoneal Dialysis GI Medical History: Reports: Hx Gastroesophageal Reflux Disease. Denies: Hx Cirrhosis, Hx Hepatitis Musculoskeltal Medical History: Denies Hx Arthritis, Denies Hx Fibromyalgia, Denies Hx Gout Skin Medical History: Denies Hx Eczema, Reports Hx MRSA, Denies Hx Psoriasis Psychiatric Medical History: Reports: Hx Depression Infectious Medical History: Denies: Hx Hepatitis Past Surgical History: Reports: Hx Adenoidectomy, Hx Cholecystectomy, Hx Oral Surgery - growth removed from under tongue, Hx Tonsillectomy, Other - Port placement 2 and removal for infection, multiple PICC lines, central l. Denies: Hx Hysterectomy, Hx Kidney (Renal Surgery), Hx Pacemaker - Immunizations Hx Diphtheria, Pertussis, Tetanus Vaccination: Yes Physical Exam - Vital signs Vitals: Temp Pulse Resp BP Pulse Ox 99.3 F 84 16 132/72 H 99 12/17/19 11:42 12/17/19 11:42 12/17/19 11:42 12/17/19 11:42 12/17/19 11:42 Course - Vital Signs Vital signs: Temp Pulse Resp BP Pulse Ox 99.3 F 84 16 132/72 H 99 12/17/19 11:42 12/17/19 11:42 12/17/19 11:42 12/17/19 11:42 12/17/19 11:42 Doctor's Discharge - Discharge Referrals: AMALIA OROZCO PA-C [Primary Care Provider] - Follow up as needed
[2019-12-17] MEDS ORDERED: RINGERS SOLUTION,LACTATED 1,000 ML IV PRN (12:38)
[2019-12-17] MEDS ORDERED: HYDROMORPHONE HCL INJ/PF 2 MG/ML AMPULE IV ONE ×2 (12:38→13:52)
[2019-12-17] MEDS ORDERED: METOCLOPRAMIDE HCL INJ/PF 10 MG/2 ML SDV IV ONE (12:38)
[2019-12-17] MEDS ORDERED: DIPHENHYDRAMINE HCL 50 MG CAPSULE PO ONE (12:38)
--- NOTE | 2019-12-17 12:40 | ER Document Report ---
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 The pain is constant and sharp lower abdomen. Not lateralizing. No fever no chills. Also having blood in leg pain characteristic of her sickle bryce l. She had a miscarriage in October and was "on life support" for pneumonia at [facility]/acute chest syndrome. Takes oxycodone at home but is not helping here. Has been having sex since then but has no discharge no partner symptoms and has not had periods yet. TRAVEL OUTSIDE OF THE [place] IN LAST 30 DAYS: No - Related Data Allergies/Adverse Reactions: ceftriaxone sodium [From Rocephin] Allergy (Verified 10/31/19 20:52) Cephalosporins Allergy (Verified 10/31/19 20:52) milk [Milk] Allergy (Verified 10/31/19 20:52) Shellfish * [Shellfish] Allergy (Verified 10/31/19 20:52) wheat [Wheat] Allergy (Verified 10/31/19 20:52) Past Medical History - General Information source: Patient - Social History Smoking Status: Unknown if Ever Smoked Family History: DM, Malignancy, Other Patient has homicidal ideation: No - Past Medical History Cardiac Medical History: Reports: Hx Hypertension, Hx Heart Murmur Denies: Hx Coronary Artery Disease, Hx Heart Attack Pulmonary Medical History: Reports: Hx Asthma, Hx Pneumonia - 10/03 Denies: Hx Bronchitis, Hx COPD, Hx Tuberculosis Neurological Medical History: Reports: Hx Migraine, Hx Seizures. Denies: Hx Cerebrovascular Accident Endocrine Medical History: Denies: Hx Diabetes Mellitus Type 1, Hx Diabetes Mellitus Type 2, Hx Hyperthyroidism, Hx Hypothyroidism Renal/ Medical History: Denies: Hx Peritoneal Dialysis GI Medical History: Reports: Hx Gastroesophageal Reflux Disease. Denies: Hx Cirrhosis, Hx Hepatitis Musculoskeletal Medical History: Denies Hx Arthritis, Denies Hx Fibromyalgia, Denies Hx Gout Skin Medical History: Denies Hx Eczema, Reports Hx MRSA, Denies Hx Psoriasis Psychiatric Medical History: Reports: Hx Depression Infectious Medical History: Denies: Hx Hepatitis Past Surgical History: Reports: Hx Adenoidectomy, Hx Cholecystectomy, Hx Oral Surgery - growth removed from under tongue, Hx Tonsillectomy, Other - Port placement 2 and removal for infection, multiple PICC lines, central l. Denies: Hx Hysterectomy, Hx Kidney (Renal Surgery), Hx Pacemaker - Immunizations Hx Diphtheria, Pertussis, Tetanus Vaccination: Yes Hx Pneumococcal Vaccination: 07/08/11 Review of Systems - Review of Systems Notes: REVIEW OF SYSTEMS GEN: Denies fever, chills, weight loss ENT: Denies sore throat, nasal discharge, ear pain EYES: Denies blurry vision, eye pain, discharge CV: Denies chest pain, palpitations, edema RESP: Denies cough, shortness of breath, wheezing GI: See HPI MSK: Pain buttocks pain SKIN: Denies rash, skin lesions LYMPH: Denies swollen glands/lymph nodes NEURO: Denies headache, focal weakness or numbness, dizziness PSYCH: Denies depression, suicidal or homicidal ideation PHYSICAL EXAMINATION General: No acute distress, well-nourished Head: Atraumatic, normocephalic ENT: Mouth normal, oropharynx moist, no exudates or tonsillar enlargement Eyes: Conjunctiva normal, pupils equal, lids normal Neck: No JVD, supple, no guarding CVS: Normal rate, regular rhythm, no murmurs Resp: No resp distress, equal and normal breath sounds bilaterally GI: Nondescript lower dental tenderness, soft no guarding no rebound g Ext: No deformities, no edema, normal range of motion in upper and lower ext Back: No CVA or midline TTP Skin: No rash, warm Lymphatic: No lymphadeopathy noted Neuro: Awake, alert. Face symmetric. GCS 15. Physical Exam - Vital signs Vitals: Temp Pulse Resp BP Pulse Ox 99.3 F 84 16 132/72 H 99 12/17/19 11:42 12/17/19 11:42 12/17/19 11:42 12/17/19 11:42 12/17/19 11:42 Course - Re-evaluation Re-evalutation: 12/17/19 14:56 Patient presents with lower abdominal pain nausea vomiting diarrhea and musculoskeletal pain that reflects her normal sickle cell flare To be gastroenteritis or other abdominal process versus versus ongoing complication from intrauterine demise Unfortunate her test positive. She was not using control after her demise and though she was told not to get and has had sex and not use control anyway. Beta is in the 1000 range. Ultrasound shows eccentrically located to uterine gestational sacdiscussed with Dr. David from OB who looked at the results with me and knows the patient well. Recommended discharge follow-up in her office with appropriate vitamins and antiemetics The patient's pain is better after Dilaudid and does not need to be admitted for her sickle cell. Her hemoglobin is actually normal today for her Her pain is improved I doubt that she needs a CT, ultrasound for appendicitis or gallbladder disease or any other acute renal process We will discharge as above. - Vital Signs Vital signs: Temp Pulse Resp BP Pulse Ox 99.3 F 84 16 132/72 H 99 12/17/19 11:44 12/17/19 11:42 12/17/19 11:42 12/17/19 11:42 12/17/19 11:42 - Laboratory Result Diagrams: 12/17/19 12:43 12/17/19 12:43 Laboratory results interpreted by me: 12/17/19 12/17/19 12/17/19 12:43 12:43 12:43 RBC 3.06 L Hgb 9.3 L Hct 26.4 L RDW 20.9 H Retic Count (auto) 2.88 H Chloride 108 H BUN 3 L Total Bilirubin 2.0 H Serum HCG, Qual POSITIVE H Beta HCG, Quant 12/17/19 12:43 RBC Hgb Hct RDW Retic Count (auto) Chloride BUN Total Bilirubin Serum HCG, Qual Beta HCG, Quant 1365.80 H - Diagnostic Test Radiology reviewed: Image reviewed, Reports reviewed Discharge - Discharge Clinical Impression: Sickle cell anemia with pain Qualifiers: Weeks of gestation: unspecified Qualified Code(s): Z34.90 - Encounter for supervision of normal , unspecified, unspecified trimester Condition: Good Disposition: HOME, SELF-CARE Instructions: Abdominal Pain ([facility]), Diarrhea, Nonspecific ([facility]), ([facility]) Additional Instructions: Please follow-up with both your women's health team, your primary care doctor I am prescribing you medication to control your nausea and vomiting. Talk to Dr. Enamorado regarding pain meds. Prescriptions: Doxylamine Succinate/Vit B6 [Jessika Kendrick 10-10 mg Tablet] 1 each PO BIDP PRN #30 tablet. PRN Reason: Pnv No.95/Ferrous Fum/Folic AC [ Vitamins Tablet] 1 each PO DAILY #60 tablet Referrals: AMALIA OROZCO PA-C [Primary Care Provider] - Follow up as needed ZAMZAM BORGES MD [ACTIVE STAFF] - Follow up as needed FREDDIE DAVID MD [ACTIVE STAFF] - Follow up in 3-5 days
[2019-12-17 12:54] LABS: ABSOLUTE RETICS # 0.088 10^6/uL (0.028-0.122); HEMATOCRIT 26.4 % (36.0-47.0); HEMOGLOBIN 9.3 g/dL (12.0-15.5); MEAN CORPUSCULAR HEMOGLOBIN 30.5 pg (27.0-33.4); MEAN CORPUSCULAR HGB CONC 35.3 g/dL (32.0-36.0); MEAN CORPUSCULAR VOLUME 86 fl (80-97); PLATELET COUNT 418 10^3/uL (150-450); RED BLOOD COUNT 3.06 10^6/uL (3.72-5.28); RED CELL DISTRIBUTION WIDTH 20.9 % (11.5-14.0); RETICULOCYTE COUNT (AUTO) 2.88 % (0.66-2.85); WHITE BLOOD COUNT 8.2 10^3/uL (4.0-10.5)
[2019-12-17 13:17] LABS: ABSOLUTE LYMPHOCYTES# (MANUAL) 2.2 10^3/uL (0.5-4.7); ABSOLUTE MONOCYTES # (MANUAL) 0.7 10^3/uL (0.1-1.4); BASOPHILS % (MANUAL) 0 % (0-2); EOSINOPHILS % (MANUAL) 0 % (0-6); LYMPHOCYTES % (MANUAL) 27 % (13-45); MONOCYTES % (MANUAL) 9 % (3-13); NUCLEATED RED BLOOD CELLS 1 /100 WBC (0); SEGMENTED NEUTROPHILS % (MAN) 64 % (42-78); TOTAL CELLS COUNTED 100
[2019-12-17 13:18] LABS: ANISOCYTOSIS 2+; PLATELET COMMENT ADEQUATE; SCHISTOCYTES 1+
[2019-12-17 13:19] LABS: HYPOCHROMASIA SLIGHT; POIKILOCYTOSIS 1+; POLYCHROMASIA SLIGHT; TEAR DROP CELLS 1+
[2019-12-17 13:21] LABS: ALBUMIN 4.3 g/dL (3.5-5.0); ALKALINE PHOSPHATASE 60 U/L (38-126); ANION GAP 6 (5-19); ASPARTATE AMINO TRANSFERASE 30 U/L (14-36); BLOOD UREA NITROGEN 3 mg/dL (7-20); CALCIUM 9.3 mg/dL (8.4-10.2); CARBON DIOXIDE 24 mmol/L (22-30); CHLORIDE 108 mmol/L (98-107); GLUCOSE 97 mg/dL (75-110); POTASSIUM 3.7 mmol/L (3.6-5.0); TOTAL PROTEIN 7.3 g/dL (6.3-8.2)
[2019-12-17 14:23] LABS: APPEARANCE,URINE SLIGHTLY-CLOUDY; BILIRUBIN,URINE NEGATIVE (NEGATIVE); COLOR,URINE YELLOW; GLUCOSE, URINE NEGATIVE (NEGATIVE); KETONES,URINE NEGATIVE (NEGATIVE); LEUKOCYTE ESTERASE,URINE NEGATIVE (NEGATIVE); NITRITE,URINE NEGATIVE (NEGATIVE); PROTEIN,URINE NEGATIVE (NEGATIVE); URINE SPECIFIC GRAVITY 1.011; UROBILINOGEN,URINE NEGATIVE mg/dL (<2.0)
--- NOTE | 2019-12-17 15:09 | RADIOLOGY REPORT (SQ) ---
EXAM DESCRIPTION: U/S OB TRANSVAG W/DOPPLER IMAGES COMPLETED DATE/TIME: 12/17/2019 2:40 pm REASON FOR STUDY: preg pain COMPARISON: None. TECHNIQUE: Transvaginal static and realtime grayscale images acquired of the pelvis. Additional adelia cted spectral and color Doppler images recorded. All images stored on PACs. CLINICAL AGE: Not known bHCG: Not available. LIMITATIONS: None. FINDINGS: UTERUS: No masses. No anomalies. GESTATIONAL SAC: Irregular shape measuring about 4.5 mm corresponding to 5 weeks. YOLK SAC: No. POLE: None present. RIGHT ADNEXA: Normal ovary with normal vascular flow. No adnexal free fluid. No adnexal masses. LEFT ADNEXA: Normal ovary with normal vascular flow. No adnexal free fluid. No adnexal masses. FREE FLUID: None. OTHER: No other significant finding. IMPRESSION: POSSIBLE EARLY INTRAUTERINE . BHCG LEVEL NOT AVAILABLE FOR CORRELATION WITH US FINDINGS. CONSIDER F/U BHCG AND/OR ULTRASOUND FOR VERIFICATION AND TO EXCLUDE ECTOPIC . Trimester of : First trimester - 0 to 13 weeks. TECHNICAL DOCUMENTATION: JOB ID: [id number] 2010 [employer]- All Rights Reserved Reading location - IP/workstation name: [email or web address]
[2019-12-17 15:30] VITALS: BP 120/67
== END 2019-12-17 15:30 | disposition home or self-care (01) ==
LOC: ER 11:34
DX: O99.011 Anemia complicating pregnancy, first trimester (principal); D57.1 Sickle-cell disease without crisis; O21.9 Vomiting of pregnancy, unspecified; O26.891 Other specified pregnancy related conditions, first trimester; R10.30 Lower abdominal pain, unspecified; O16.1 Unspecified maternal hypertension, first trimester; O99.511 Diseases of the respiratory system complicating pregnancy, first trimester; J45.909 Unspecified asthma, uncomplicated; Z3A.00 Weeks of gestation of pregnancy not specified; R19.7 Diarrhea, unspecified; Z79.891 Long term (current) use of opiate analgesic; Z88.1 Allergy status to other antibiotic agents; Z91.011 Allergy to milk products; Z91.013 Allergy to seafood; Z91.018 Allergy to other foods
CPT/HCPCS: 96376; 99284; 96361; 96374; 96375; 36415; 87086; 84702; 83690; 84703; 85025; 85045; 80053; 81001; 76817; 93976; J3490; J2765; J1170; J7120

== ENCOUNTER 2019-12-18 11:05 | Outpatient (CLI) | payer MEDICAID ==
[2019-12-18] MEDS ORDERED: DIPHENHYDRAMINE HCL 50 MG/ML VIAL IV PRN (11:08)
[2019-12-18] MEDS ORDERED: ONDANSETRON HCL INJ/PF 4 MG/2 ML SDV IV PRN (11:08)
[2019-12-18] MEDS ORDERED: HYDROMORPHONE HCL INJ/PF 2 MG/ML AMPULE IV PRN (11:09)
[2019-12-18] MEDS ORDERED: NORMAL SALINE 1000 ML 1,000 ML IV PRN (11:09)
[2019-12-18 11:22] VITALS: BP 127/79
== END 2019-12-18 13:30 | disposition home or self-care (01) ==
LOC: II 11:05 → 5TH 11:07 → II 13:30
PROVIDERS: ATTEND Internal Medicine
DX: D57.00 Hb-SS disease with crisis, unspecified (principal); E86.0 Dehydration; R11.0 Nausea; R52 Pain, unspecified
CPT/HCPCS: 96374; 96375; 96361; J1200; J1170; J2405

== ENCOUNTER → 2019-12-21 | Outpatient (CLI) | payer MEDICAID ==
[~2019-12-21] MED LIST changes: +DIPHENHYDRAMINE HCL 50 MG/ML VIAL IV ONE; -DIPHENHYDRAMINE HCL 50 MG/ML VIAL IV PRN; +HYDROMORPHONE HCL INJ/PF 2 MG/ML AMPULE IV ONE; -HYDROMORPHONE HCL INJ/PF 2 MG/ML AMPULE IV PRN; +ONDANSETRON HCL INJ/PF 4 MG/2 ML SDV IV ONE; -ONDANSETRON HCL INJ/PF 4 MG/2 ML SDV IV PRN
[2019-12-21 13:57] VITALS: BP 126/75
== END ==
LOC: ASU 12:03
PROVIDERS: ATTEND Internal Medicine
DX: D57.00 Hb-SS disease with crisis, unspecified (principal); E86.0 Dehydration; R11.0 Nausea; R52 Pain, unspecified
CPT/HCPCS: J1200; J1170; J2405; 96361; 96365; 96366; 96374; 96375

== ENCOUNTER 2019-12-22 09:43 | Outpatient (CLI) | payer MEDICAID ==
[2019-12-22] MEDS ORDERED: DIPHENHYDRAMINE HCL 50 MG/ML VIAL IV PRN (09:53)
[2019-12-22] MEDS ORDERED: NORMAL SALINE 1000 ML 1,000 ML IV PRN (09:54)
[2019-12-22] MEDS ORDERED: ONDANSETRON HCL INJ/PF 4 MG/2 ML SDV IV PRN (09:54)
[2019-12-22 09:59] VITALS: BP 125/58
[2019-12-22] MEDS ORDERED: HYDROMORPHONE HCL INJ/PF 2 MG/ML AMPULE IV PRN (10:00)
== END 2019-12-22 11:30 | disposition home or self-care (01) ==
LOC: II 09:43 → 5TH 09:58 → II 11:30
PROVIDERS: ATTEND Internal Medicine
DX: D57.00 Hb-SS disease with crisis, unspecified (principal); E86.0 Dehydration; R11.0 Nausea; R52 Pain, unspecified
CPT/HCPCS: 96374; 96375; 96361; J1200; J1170; J2405

== ENCOUNTER 2019-12-23 11:07 | Outpatient (CLI) | payer MEDICAID ==
[~2019-12-23 11:07] MED LIST changes: -DIPHENHYDRAMINE HCL 50 MG/ML VIAL IV ONE; +DIPHENHYDRAMINE HCL 50 MG/ML VIAL IV PRN; -DIPHENHYDRAMINE HCL 50 MG/ML VIAL ONE; -HYDROMORPHONE HCL INJ/PF 2 MG/ML AMPULE IV ONE; +HYDROMORPHONE HCL INJ/PF 2 MG/ML AMPULE IV PRN; -HYDROMORPHONE HCL INJ/PF 2 MG/ML AMPULE ONE; -ONDANSETRON HCL INJ/PF 4 MG/2 ML SDV IV ONE; +ONDANSETRON HCL INJ/PF 4 MG/2 ML SDV IV PRN; -ONDANSETRON HCL INJ/PF 4 MG/2 ML SDV ONE
[2019-12-23 11:19] VITALS: BP 137/81
== END 2019-12-23 12:43 | disposition home or self-care (01) ==
LOC: II 11:07 → 5TH 11:11 → II 12:43
PROVIDERS: ATTEND Internal Medicine
DX: D57.00 Hb-SS disease with crisis, unspecified (principal); E86.0 Dehydration; R11.0 Nausea; R52 Pain, unspecified
CPT/HCPCS: 96374; 96375; 96361; J1200; J1170; J2405

== ENCOUNTER 2019-12-24 09:01 | Outpatient (CLI) | payer MEDICAID ==
[2019-12-24] MEDS ORDERED: DIPHENHYDRAMINE HCL 50 MG/ML VIAL IV PRN (09:07)
[2019-12-24] MEDS ORDERED: ONDANSETRON HCL INJ/PF 4 MG/2 ML SDV IV PRN (09:07)
[2019-12-24] MEDS ORDERED: NORMAL SALINE 1000 ML 1,000 ML IV PRN (09:08)
[2019-12-24 09:16] VITALS: BP 129/70
[2019-12-24] MEDS ORDERED: HYDROMORPHONE HCL INJ/PF 2 MG/ML AMPULE IV PRN (09:38)
== END 2019-12-24 11:00 | disposition home or self-care (01) ==
LOC: 5TH 09:01 → II 09:01
PROVIDERS: ATTEND Internal Medicine
DX: D57.00 Hb-SS disease with crisis, unspecified (principal); E86.0 Dehydration; R11.0 Nausea; R52 Pain, unspecified
CPT/HCPCS: 96374; 96375; 96361; J1200; J1170; J2405

== ENCOUNTER 2019-12-25 09:49 | Outpatient (CLI) | payer MEDICAID ==
[2019-12-25 10:03] VITALS: BP 130/65
== END 2019-12-25 12:00 | disposition home or self-care (01) ==
LOC: II 09:49 → 5TH 09:56 → II 12:00
PROVIDERS: ATTEND Internal Medicine
DX: D57.00 Hb-SS disease with crisis, unspecified (principal); E86.0 Dehydration; R11.0 Nausea; R52 Pain, unspecified
CPT/HCPCS: 96374; 96375; 96361; J1200; J1170; J2405

== ENCOUNTER 2019-12-28 11:11 | Outpatient (CLI) | payer MEDICAID ==
[2019-12-28] MEDS ORDERED: HYDROMORPHONE HCL INJ/PF 2 MG/ML AMPULE ONE (11:39)
[2019-12-28] MEDS ORDERED: DIPHENHYDRAMINE HCL 50 MG/ML VIAL ONE (11:39)
[2019-12-28] MEDS ORDERED: ONDANSETRON HCL INJ/PF 4 MG/2 ML SDV ONE ×2 (11:39→11:44)
[2019-12-28 12:11] VITALS: BP 104/52
== END 2019-12-28 13:10 | disposition home or self-care (01) ==
LOC: ASU 11:11
PROVIDERS: ATTEND Internal Medicine
DX: D57.00 Hb-SS disease with crisis, unspecified (principal); E86.0 Dehydration; R11.0 Nausea; R52 Pain, unspecified
CPT/HCPCS: J1200; J1170; J2405; 96361; 96365; 96366; 96374; 96375

== ENCOUNTER 2019-12-29 11:14 | Outpatient (CLI) | payer MEDICAID ==
[2019-12-29] MEDS ORDERED: NORMAL SALINE 1000 ML 1,000 ML IV PRN (11:20)
[2019-12-29 11:21] VITALS: BP 118/49
[2019-12-29] MEDS ORDERED: HYDROMORPHONE HCL INJ/PF 2 MG/ML AMPULE IV PRN (11:21)
[2019-12-29] MEDS ORDERED: ONDANSETRON HCL INJ/PF 4 MG/2 ML SDV IV PRN (11:21)
[2019-12-29] MEDS ORDERED: DIPHENHYDRAMINE HCL 50 MG/ML VIAL IV PRN (11:22)
== END 2019-12-29 13:39 | disposition home or self-care (01) ==
LOC: II 11:14 → 5TH 11:17 → II 13:39
PROVIDERS: ATTEND Internal Medicine
DX: D57.00 Hb-SS disease with crisis, unspecified (principal); E86.0 Dehydration; R11.0 Nausea; R52 Pain, unspecified
CPT/HCPCS: 96374; 96375; 96361; J1200; J1170; J2405

== ENCOUNTER 2019-12-30 11:21 | Outpatient (CLI) | payer MEDICAID ==
[2019-12-30 12:22] VITALS: BP 120/67
== END 2019-12-30 13:00 | disposition home or self-care (01) ==
LOC: II 11:21 → 5TH 11:26 → II 13:00
PROVIDERS: ATTEND Internal Medicine
DX: D57.00 Hb-SS disease with crisis, unspecified (principal); E86.0 Dehydration; R11.0 Nausea; R52 Pain, unspecified
CPT/HCPCS: 96374; 96375; 96361; J1200; J1170; J2405

== ENCOUNTER 2019-12-31 09:11 | Outpatient (CLI) | payer MEDICAID ==
[2019-12-31 09:21] VITALS: BP 124/61
== END 2019-12-31 11:13 | disposition home or self-care (01) ==
LOC: II 09:11 → 5TH 09:13 → II 09:58 → 5TH 09:58 → II 11:13
PROVIDERS: ATTEND Internal Medicine
DX: D57.00 Hb-SS disease with crisis, unspecified (principal); E86.0 Dehydration; R11.0 Nausea; R52 Pain, unspecified
CPT/HCPCS: 96374; 96375; 96361; J1200; J1170

== ENCOUNTER 2020-01-01 09:57 | Outpatient (CLI) | payer MEDICAID ==
[2020-01-01 10:35] VITALS: BP 120/51
== END 2020-01-01 12:45 | disposition home or self-care (01) ==
LOC: II 09:57 → 5TH 10:00 → II 12:45
PROVIDERS: ATTEND Internal Medicine
DX: D57.00 Hb-SS disease with crisis, unspecified (principal); E86.0 Dehydration; R11.0 Nausea; R52 Pain, unspecified
CPT/HCPCS: 96374; 96375; 96361; J1200; J1170

== ENCOUNTER 2020-01-06 13:05 | Outpatient (CLI) | payer MEDICAID ==
[2020-01-06] MEDS ORDERED: NORMAL SALINE 1000 ML 1,000 ML IV PRN (13:07)
[2020-01-06] MEDS ORDERED: DIPHENHYDRAMINE HCL 50 MG/ML VIAL IV PRN (13:07)
[2020-01-06] MEDS ORDERED: HYDROMORPHONE HCL INJ/PF 2 MG/ML AMPULE IV PRN (13:07)
[2020-01-06 13:19] VITALS: BP 122/66
== END 2020-01-06 15:02 | disposition home or self-care (01) ==
LOC: II 13:05 → 5TH 13:39 → II 15:02
PROVIDERS: ATTEND Internal Medicine
DX: D57.1 Sickle-cell disease without crisis (principal); E86.0 Dehydration; R52 Pain, unspecified
CPT/HCPCS: 96374; 96375; 96361; J1200; J1170

== ENCOUNTER 2020-01-07 11:10 | Outpatient (CLI) | payer MEDICAID ==
[~2020-01-07 11:10] MED LIST changes: -ONDANSETRON HCL INJ/PF 4 MG/2 ML SDV IV PRN
[2020-01-07 11:23] VITALS: BP 122/60
== END 2020-01-07 12:45 | disposition home or self-care (01) ==
LOC: II 11:10 → 5TH 11:11 → II 12:45
PROVIDERS: ATTEND Internal Medicine
DX: D57.00 Hb-SS disease with crisis, unspecified (principal); E86.0 Dehydration; R11.0 Nausea; R52 Pain, unspecified
CPT/HCPCS: 96374; 96375; 96361; J1200; J1170

== ENCOUNTER 2020-01-12 13:47 | Outpatient (CLI) | payer MEDICAID ==
[2020-01-12] MEDS ORDERED: DIPHENHYDRAMINE HCL 50 MG/ML VIAL IV PRN ×2 (13:56→14:00)
[2020-01-12] MEDS ORDERED: ONDANSETRON HCL INJ/PF 4 MG/2 ML SDV IV PRN ×2 (13:57→14:00)
[2020-01-12] MEDS ORDERED: NORMAL SALINE 1000 ML 1,000 ML IV PRN (13:57)
[2020-01-12] MEDS ORDERED: HYDROMORPHONE HCL INJ/PF 2 MG/ML AMPULE IV PRN ×2 (13:58→14:00)
[2020-01-12 14:10] VITALS: BP 115/57
== END 2020-01-12 16:18 | disposition home or self-care (01) ==
LOC: II 13:47 → 5TH 14:44 → II 16:18
PROVIDERS: ATTEND Internal Medicine
DX: D57.00 Hb-SS disease with crisis, unspecified (principal); E86.0 Dehydration; R11.0 Nausea; R52 Pain, unspecified
CPT/HCPCS: 96374; 96375; 96361; J1200; J1170; J2405

== ENCOUNTER 2020-01-13 12:13 | Outpatient (CLI) | payer MEDICAID ==
[2020-01-13] MEDS ORDERED: DIPHENHYDRAMINE HCL 50 MG/ML VIAL IV PRN ×2 (12:21→12:24)
[2020-01-13] MEDS ORDERED: ONDANSETRON HCL INJ/PF 4 MG/2 ML SDV IV PRN ×2 (12:22→12:25)
[2020-01-13] MEDS ORDERED: NORMAL SALINE 1000 ML 1,000 ML IV PRN ×2 (12:22→12:25)
[2020-01-13] MEDS ORDERED: HYDROMORPHONE HCL INJ/PF 2 MG/ML AMPULE IV PRN ×2 (12:23→12:25)
[2020-01-13 12:25] VITALS: BP 108/57
== END 2020-01-13 14:00 | disposition home or self-care (01) ==
LOC: II 12:13 → 5TH 12:15 → II 14:00
PROVIDERS: ATTEND Internal Medicine
DX: D57.00 Hb-SS disease with crisis, unspecified (principal); E86.0 Dehydration; R11.0 Nausea; R52 Pain, unspecified
CPT/HCPCS: 96374; 96375; 96361; J1200; J1170; J2405

== ENCOUNTER 2020-01-14 10:14 | Outpatient (CLI) | payer MEDICAID ==
[~2020-01-14 10:14] MED LIST changes: +ONDANSETRON HCL INJ/PF 4 MG/2 ML SDV IV PRN
[2020-01-14 10:47] VITALS: BP 119/65
== END 2020-01-14 12:05 | disposition home or self-care (01) ==
LOC: II 10:14 → 5TH 10:16 → II 12:05
PROVIDERS: ATTEND Internal Medicine
DX: D57.00 Hb-SS disease with crisis, unspecified (principal); E86.0 Dehydration; R11.0 Nausea; R52 Pain, unspecified
CPT/HCPCS: 96374; 96375; 96361; J1200; J1170; J2405

== ENCOUNTER 2020-01-15 10:13 | Outpatient (CLI) | payer MEDICAID ==
[2020-01-15 11:15] VITALS: BP 124/66
== END 2020-01-15 12:15 | disposition home or self-care (01) ==
LOC: II 10:13 → 5TH 10:14 → II 12:15
PROVIDERS: ATTEND Internal Medicine
DX: D57.00 Hb-SS disease with crisis, unspecified (principal); E86.0 Dehydration; R11.0 Nausea; R52 Pain, unspecified
CPT/HCPCS: 96374; 96375; 96361; J1200; J1170; J2405

== ENCOUNTER 2020-01-17 10:27 | Emergency (ER) | payer MEDICAID ==
[2020-01-17] MEDS ORDERED: NORMAL SALINE 1000 ML 1,000 ML IV PRN (10:42)
--- NOTE | 2020-01-17 10:43 | ER Document Report ---
ED Medical Screen (RME) - General Chief Complaint: Sickle Cell Crisis Stated Complaint: BODY PAIN Primary Care Provider: AMALIA OROZCO PA-C [Primary Care Provider] - Follow up as needed Notes: This 29-year-old female presents to the emergency room today with generalized body pain she does have history of sickle cell disease and feels as though she is having an exacerbation. TRAVEL OUTSIDE OF THE [place] IN LAST 30 DAYS: No - Related Data Allergies/Adverse Reactions: ceftriaxone sodium [From Rocephin] Allergy (Verified 10/31/19 20:52) Cephalosporins Allergy (Verified 10/31/19 20:52) milk [Milk] Allergy (Verified 10/31/19 20:52) Shellfish * [Shellfish] Allergy (Verified 10/31/19 20:52) wheat [Wheat] Allergy (Verified 10/31/19 20:52) Past Medical History - Social History Family history: None, Reviewed & Not Pertinent - Past Medical History Cardiac Medical History: Reports: Hx Hypertension, Hx Heart Murmur Denies: Hx Coronary Artery Disease, Hx Heart Attack Pulmonary Medical History: Reports: Hx Asthma, Hx Pneumonia - 10/03 Denies: Hx Bronchitis, Hx COPD, Hx Tuberculosis Neurological Medical History: Reports: Hx Migraine, Hx Seizures. Denies: Hx Cerebrovascular Accident Endocrine Medical History: Denies: Hx Diabetes Mellitus Type 1, Hx Diabetes Mellitus Type 2, Hx Hyperthyroidism, Hx Hypothyroidism Renal/ Medical History: Denies: Hx Peritoneal Dialysis GI Medical History: Reports: Hx Gastroesophageal Reflux Disease. Denies: Hx Cirrhosis, Hx Hepatitis Musculoskeltal Medical History: Denies Hx Arthritis, Denies Hx Fibromyalgia, Denies Hx Gout Skin Medical History: Denies Hx Eczema, Reports Hx MRSA, Denies Hx Psoriasis Psychiatric Medical History: Reports: Hx Depression Infectious Medical History: Denies: Hx Hepatitis Past Surgical History: Reports: Hx Adenoidectomy, Hx Cholecystectomy, Hx Oral Surgery - growth removed from under tongue, Hx Tonsillectomy, Other - Port placement 2 and removal for infection, multiple PICC lines, central l. Denies: Hx Hysterectomy, Hx Kidney (Renal Surgery), Hx Pacemaker - Immunizations Hx Diphtheria, Pertussis, Tetanus Vaccination: Yes Physical Exam - Vital signs Vitals: Temp Pulse Resp BP Pulse Ox 98.9 F 88 16 115/69 97 01/17/20 10:39 01/17/20 10:39 01/17/20 10:39 01/17/20 10:39 01/17/20 10:39 Course - Vital Signs Vital signs: Temp Pulse Resp BP Pulse Ox 98.9 F 88 16 115/69 97 01/17/20 10:39 01/17/20 10:39 01/17/20 10:39 01/17/20 10:39 01/17/20 10:39 Doctor's Discharge - Discharge Referrals: AMALIA OROZCO PA-C [Primary Care Provider] - Follow up as needed
[2020-01-17 11:57] LABS: ABSOLUTE BASOPHILS # (AUTO) 0.1 10^3/uL (0.0-0.2); ABSOLUTE LYMPHOCYTES (AUTO) 1.6 10^3/uL (0.5-4.7); ABSOLUTE MONOCYTES (AUTO) 0.9 10^3/uL (0.1-1.4); ABSOLUTE NEUT (AUTO) 9.7 10^3/uL (1.7-8.2); EOSINOPHILS % (AUTO) 0.2 % (0-6); HEMATOCRIT 24.7 % (36.0-47.0); HEMOGLOBIN 8.7 g/dL (12.0-15.5); LYMPHOCYTES % (AUTO) 13.2 % (13-45); MEAN CORPUSCULAR HEMOGLOBIN 32.2 pg (27.0-33.4); MEAN CORPUSCULAR HGB CONC 35.1 g/dL (32.0-36.0); MEAN CORPUSCULAR VOLUME 92 fl (80-97); MONOCYTES % (AUTO) 7.4 % (3-13); PLATELET COUNT 419 10^3/uL (150-450); RED BLOOD COUNT 2.69 10^6/uL (3.72-5.28); RED CELL DISTRIBUTION WIDTH 21.4 % (11.5-14.0); SEGMENTED NEUTROPHILS % (AUTO) 78.2 % (42-78); TOTAL CELLS COUNTED % (AUTO) 100 %; WHITE BLOOD COUNT 12.4 10^3/uL (4.0-10.5)
[2020-01-17 12:07] LABS: ABSOLUTE RETICS # 0.276 10^6/uL (0.028-0.122); RETICULOCYTE COUNT (AUTO) 10.23 % (0.66-2.85)
[2020-01-17 12:11] LABS: ALBUMIN 4.7 g/dL (3.5-5.0); ALKALINE PHOSPHATASE 46 U/L (38-126); ANION GAP 8 (5-19); ASPARTATE AMINO TRANSFERASE 29 U/L (14-36); BILIRUBIN,TOTAL 2.4 mg/dL (0.2-1.3); BLOOD UREA NITROGEN 3 mg/dL (7-20); CALCIUM 9.5 mg/dL (8.4-10.2); CARBON DIOXIDE 22 mmol/L (22-30); CHLORIDE 108 mmol/L (98-107); GLUCOSE 99 mg/dL (75-110); POTASSIUM 3.5 mmol/L (3.6-5.0); TOTAL PROTEIN 7.5 g/dL (6.3-8.2)
[2020-01-17] MEDS ORDERED: HYDROMORPHONE HCL INJ/PF 2 MG/ML AMPULE IV ONE (12:12)
[2020-01-17] MEDS ORDERED: METOCLOPRAMIDE HCL INJ/PF 10 MG/2 ML SDV IV ONE (12:12)
--- NOTE | 2020-01-17 12:15 | ER Document Report ---
ED General - General Chief Complaint: Sickle Cell Crisis Stated Complaint: BODY PAIN Time Seen by Provider: 01/17/20 10:49 Primary Care Provider: AMALIA OROZCO PA-C [Primary Care Provider] - Follow up as needed Notes: HPI: Patient is a 29-year-old sickle cell patient followed here locally by hematology/oncology who is a -0-1-0 around 10 weeks by ultrasound who presents with some continued pain everywhere. This started about a month ago. She was seen here at that time. She has had some intermittent vomiting and diarrhea. She states that the diarrhea is nonbloody and occurs only every 3 days. No vaginal bleeding or abdominal pain. She states that the pain from her sickle cell flare was diffusely to the upper and lower extremities. She denies any chest pain, cough, fevers, shortness of breath. Patient has seen the local ASSISTANT SUPERINTENDENT here Dr. Dutta. She is also followed up with the mandolin repair person here locally and has seen him almost daily this past week for fluid and pain medications. They will send the patient out for outpatient high risk with possible exchange transfusions during this . Patient supposedly in October had a miscarriage causing serious illness and acute chest syndrome and [facility]. Patient states she came here today because her hematology clinic is close. ROS: See HPI All other review of systems reviewed and otherwise negative Reviewed vital signs and nursing note as charted by RN. PHYSICAL EXAM: CONSTITUTIONAL: Alert and oriented and responds appropriately to questions. Well-appearing; well-nourished HEAD: Normocephalic; atraumatic EYES: PERRL; sclerae non-icteric CARD: Regular rate and rhythm; no murmurs; symmetric distal pulses RESP: Normal chest excursion without splinting or tachypnea; breath sounds clear and equal bilaterally; no wheezes, no rhonchi, no rales ABD/GI: Normal bowel sounds; non-distended; soft, non-tender; no palpable organomegaly or masses BACK: The back appears normal and is non-tender to palpation EXT: Normal ROM in all joints; non-tender to palpation; no edema SKIN: No acute lesions noted NEURO: CN 2-12 intact; 5/5 bilateral upper and lower extremity strength with sensation intact to light touch PSYCH: The patient's mood and manner are appropriate. Grooming and personal hyg iene are appropriate. TRAVEL OUTSIDE OF THE [place] IN LAST 30 DAYS: No - Related Data Allergies/Adverse Reactions: ceftriaxone sodium [From Rocephin] Allergy (Verified 01/17/20 11:42) Cephalosporins Allergy (Verified 01/17/20 11:42) milk [Milk] Allergy (Verified 01/17/20 11:42) Shellfish * [Shellfish] Allergy (Verified 01/17/20 11:42) wheat [Wheat] Allergy (Verified 01/17/20 11:42) Past Medical History - Social History Smoking Status: Never Smoker Frequency of alcohol use: Rare Drug Abuse: None Family History: DM, Malignancy, Other Patient has homicidal ideation: No - Past Medical History Cardiac Medical History: Reports: Hx Hypertension, Hx Heart Murmur Denies: Hx Coronary Artery Disease, Hx Heart Attack Pulmonary Medical History: Reports: Hx Asthma, Hx Pneumonia - 10/03 Denies: Hx Bronchitis, Hx COPD, Hx Tuberculosis Neurological Medical History: Reports: Hx Migraine, Hx Seizures. Denies: Hx Cerebrovascular Accident Endocrine Medical History: Denies: Hx Diabetes Mellitus Type 1, Hx Diabetes Mellitus Type 2, Hx Hyperthyroidism, Hx Hypothyroidism Renal/ Medical History: Denies: Hx Peritoneal Dialysis GI Medical History: Reports: Hx Gastroesophageal Reflux Disease. Denies: Hx Cirrhosis, Hx Hepatitis Musculoskeletal Medical History: Denies Hx Arthritis, Denies Hx Fibromyalgia, Denies Hx Gout Skin Medical History: Denies Hx Eczema, Reports Hx MRSA, Denies Hx Psoriasis Psychiatric Medical History: Reports: Hx Depression Infectious Medical History: Denies: Hx Hepatitis Past Surgical History: Reports: Hx Adenoidectomy, Hx Cholecystectomy, Hx Oral Surgery - growth removed from under tongue, Hx Tonsillectomy, Other - Port placement 2 and removal for infection, multiple PICC lines, central l. Denies: Hx Hysterectomy, Hx Kidney (Renal Surgery), Hx Pacemaker - Immunizations Hx Diphtheria, Pertussis, Tetanus Vaccination: Yes Hx Pneumococcal Vaccination: 07/08/11 Physical Exam - Vital signs Vitals: Temp Pulse Resp BP Pulse Ox 98.9 F 88 16 115/69 97 01/17/20 10:39 01/17/20 10:39 01/17/20 10:39 01/17/20 10:39 01/17/20 10:39 Course - Re-evaluation Re-evalutation: 01/17/20 12:14 Given the history and physical examination I will check basic labs, repeat quantitative hCG, provide fluids and pain medications, and reassess. I will most likely touch base with the patient's mandolin repair person/oncologist. Shira upton has no signs or symptoms of acute chest syndrome at this time. No abdominal pain or vaginal bleeding. 01/17/20 13:13 Labs as recorded. Body pain is improved. Hemoglobin is stable. Quantitative hCG is increased. 01/17/20 13:53 Urine analysis as recorded. Patient's vital signs are stable. Patient's pain is improved. Patient has excellent follow-up. - Vital Signs Vital signs: Temp Pulse Resp BP Pulse Ox 98.9 F 88 16 115/69 97 01/17/20 10:51 01/17/20 10:39 01/17/20 10:39 01/17/20 10:39 01/17/20 10:39 - Laboratory Result Diagrams: 01/17/20 11:45 01/17/20 11:45 Laboratory results interpreted by me: 01/17/20 01/17/20 01/17/20 11:45 11:45 11:45 WBC 12.4 H RBC 2.69 L Hgb 8.7 L Hct 24.7 L RDW 21.4 H Reticulocyte # 0.276 H Absolute Neuts (auto) 9.7 H Seg Neutrophils % 78.2 H Retic Count (auto) 10.23 H Potassium 3.5 L Chloride 108 H BUN 3 L Creatinine 0.41 L Total Bilirubin 2.4 H Beta HCG, Quant Urine Protein Urine Urobilinogen 01/17/20 01/17/20 11:45 13:20 WBC RBC Hgb Hct RDW Reticulocyte # Absolute Neuts (auto) Seg Neutrophils % Retic Count (auto) Potassium Chloride BUN Creatinine Total Bilirubin Beta HCG, Quant 32069.00 H Urine Protein 30 H Urine Urobilinogen 2.0 H Discharge - Discharge Clinical Impression: Sickle cell pain crisis and not yet delivered Qualifiers: Trimester: first trimester Qualified Code(s): Z34.91 - Encounter for supervision of normal , unspecified, first trimester Condition: Good Disposition: HOME, SELF-CARE Additional Instructions: Come back immediately for any increased pain, change in location or quality of pain, cough or shortness of breath, fevers, vaginal bleeding, or any other acute problems. Please follow-up with your specialist as discussed. Referrals: AMALIA OROZCO PA-C [Primary Care Provider] - Follow up as needed
[2020-01-17 12:25] LABS: ANISOCYTOSIS 3+; OVALOCYTES SLIGHT; POIKILOCYTOSIS 2+; POLYCHROMASIA 1+; SCHISTOCYTES SLIGHT
[2020-01-17 12:26] LABS: HOWELL-JOLLY BODIES PRESENT; PAPPENHEIMER BODIES PRESENT; SICKLE RED CELLS 1+; TARGET CELLS 1+; TEAR DROP CELLS SLIGHT
[2020-01-17 12:27] LABS: PLATELET COMMENT ADEQUATE
[2020-01-17 13:41] LABS: APPEARANCE,URINE SLIGHTLY-CLOUDY; BILIRUBIN,URINE NEGATIVE (NEGATIVE); COLOR,URINE YELLOW; GLUCOSE, URINE NEGATIVE (NEGATIVE); KETONES,URINE NEGATIVE (NEGATIVE); LEUKOCYTE ESTERASE,URINE NEGATIVE (NEGATIVE); NITRITE,URINE NEGATIVE (NEGATIVE); PROTEIN,URINE 30 mg/dL (NEGATIVE); URINE SPECIFIC GRAVITY 1.009
[2020-01-17 14:14] VITALS: BP 110/70
== END 2020-01-17 14:13 | disposition home or self-care (01) ==
LOC: ER 10:27
DX: D57.00 Hb-SS disease with crisis, unspecified (principal); O99.019 Anemia complicating pregnancy, unspecified trimester; M79.10 Myalgia, unspecified site; O21.9 Vomiting of pregnancy, unspecified; R19.7 Diarrhea, unspecified; Z88.8 Allergy status to other drugs, medicaments and biological substances; I10 Essential (primary) hypertension; J45.909 Unspecified asthma, uncomplicated
CPT/HCPCS: 99284; 96361; 96374; 96375; 36415; 84702; 85025; 85045; 80053; 81001; J2765; J1170; J7030

== ENCOUNTER 2020-01-18 12:47 | Outpatient (CLI) | payer MEDICAID ==
[2020-01-18] MEDS ORDERED: DIPHENHYDRAMINE HCL 50 MG/ML VIAL IV PRN (13:30)
[2020-01-18] MEDS ORDERED: ONDANSETRON HCL INJ/PF 4 MG/2 ML SDV IV PRN (13:31)
[2020-01-18] MEDS ORDERED: NORMAL SALINE 1000 ML 1,000 ML IV PRN (13:32)
[2020-01-18] MEDS ORDERED: HYDROMORPHONE HCL INJ/PF 2 MG/ML AMPULE IV PRN (13:33)
[2020-01-18 13:52] VITALS: BP 128/63
== END 2020-01-18 15:49 | disposition home or self-care (01) ==
LOC: II 12:47 → 2S 12:51 → II 15:49
PROVIDERS: ATTEND Internal Medicine
DX: D57.00 Hb-SS disease with crisis, unspecified (principal); E86.0 Dehydration; R11.0 Nausea; R52 Pain, unspecified
CPT/HCPCS: J1200; J1170; J2405; J7030; 96361; 96374; 96375

== ENCOUNTER 2020-01-19 10:20 | Outpatient (CLI) | payer MEDICAID ==
[2020-01-19 10:29] VITALS: BP 140/46
[2020-01-19] MEDS ORDERED: DIPHENHYDRAMINE HCL 50 MG/ML VIAL IV PRN (10:31)
[2020-01-19] MEDS ORDERED: HYDROMORPHONE HCL INJ/PF 2 MG/ML AMPULE IV PRN (10:32)
[2020-01-19] MEDS ORDERED: ONDANSETRON HCL INJ/PF 4 MG/2 ML SDV IV PRN (10:32)
[2020-01-19] MEDS ORDERED: NORMAL SALINE 1000 ML 1,000 ML IV PRN (10:32)
== END 2020-01-19 12:30 | disposition home or self-care (01) ==
LOC: II 10:20 → 5TH 11:25 → II 12:30
PROVIDERS: ATTEND Internal Medicine
DX: D57.00 Hb-SS disease with crisis, unspecified (principal); E86.0 Dehydration; R11.0 Nausea; R52 Pain, unspecified
CPT/HCPCS: 96374; 96375; 96361; J1200; J1170; J2405

== ENCOUNTER 2020-01-20 10:16 | Outpatient (CLI) | payer MEDICAID ==
[2020-01-20 10:33] VITALS: BP 120/68
== END 2020-01-20 12:02 | disposition home or self-care (01) ==
LOC: II 10:16 → 5TH 10:18 → II 12:02
PROVIDERS: ATTEND Internal Medicine
DX: D57.00 Hb-SS disease with crisis, unspecified (principal); E86.0 Dehydration; R11.0 Nausea; R52 Pain, unspecified
CPT/HCPCS: 96374; 96375; 96361; J1200; J1170; J2405

== ENCOUNTER 2020-01-21 09:18 | Outpatient (CLI) | payer MEDICAID ==
[2020-01-21] MEDS ORDERED: DIPHENHYDRAMINE HCL 50 MG/ML VIAL IV PRN ×2 (09:32→10:00)
[2020-01-21] MEDS ORDERED: HYDROMORPHONE HCL INJ/PF 2 MG/ML AMPULE IV PRN (09:32)
[2020-01-21] MEDS ORDERED: ONDANSETRON HCL INJ/PF 4 MG/2 ML SDV IV PRN (09:32)
[2020-01-21] MEDS ORDERED: NORMAL SALINE 1000 ML 1,000 ML IV PRN (09:33)
[2020-01-21 11:04] VITALS: BP 119/64
== END 2020-01-21 11:09 | disposition home or self-care (01) ==
LOC: II 09:18 → 5TH 09:22 → II 11:09
PROVIDERS: ATTEND Internal Medicine
DX: D57.00 Hb-SS disease with crisis, unspecified (principal); E86.0 Dehydration; R11.0 Nausea; R52 Pain, unspecified
CPT/HCPCS: 96374; 96375; 96361; J1200; J1170; J2405

== ENCOUNTER → 2020-01-25 | Outpatient (CLI) | payer MEDICAID ==
[~2020-01-25] MED LIST changes: +DIPHENHYDRAMINE HCL 50 MG/ML VIAL ONE; +HYDROMORPHONE HCL INJ/PF 2 MG/ML AMPULE ONE; +ONDANSETRON HCL INJ/PF 4 MG/2 ML SDV ONE
[2020-01-25 15:42] VITALS: BP 112/69
== END ==
LOC: ASU 13:10
PROVIDERS: ATTEND Internal Medicine
DX: D57.00 Hb-SS disease with crisis, unspecified (principal); E86.0 Dehydration; R11.0 Nausea; R52 Pain, unspecified
CPT/HCPCS: 96365; J1200; J1170; J2405; 96361; 96374; 96375

== ENCOUNTER 2020-01-26 10:17 | Outpatient (CLI) | payer MEDICAID ==
[~2020-01-26 10:17] MED LIST changes: -DIPHENHYDRAMINE HCL 50 MG/ML VIAL ONE; -HYDROMORPHONE HCL INJ/PF 2 MG/ML AMPULE ONE; -ONDANSETRON HCL INJ/PF 4 MG/2 ML SDV ONE
[2020-01-26 10:58] VITALS: BP 118/55
== END 2020-01-26 12:27 | disposition home or self-care (01) ==
LOC: II 10:17 → 5TH 10:20 → II 12:27
PROVIDERS: ATTEND Internal Medicine
DX: D57.00 Hb-SS disease with crisis, unspecified (principal); E86.0 Dehydration; R11.0 Nausea; R52 Pain, unspecified
CPT/HCPCS: 96374; 96375; 96361; J1200; J1170; J2405

== ENCOUNTER 2020-01-27 12:15 | Outpatient (CLI) | payer MEDICAID ==
[2020-01-27 12:38] VITALS: BP 123/54
== END 2020-01-27 14:07 | disposition home or self-care (01) ==
LOC: II 12:15 → 5TH 12:42 → II 14:07
PROVIDERS: ATTEND Internal Medicine
DX: D57.00 Hb-SS disease with crisis, unspecified (principal); E86.0 Dehydration; R11.0 Nausea; R52 Pain, unspecified
CPT/HCPCS: 96374; 96375; 96361; J1200; J1170; J2405

== ENCOUNTER 2020-01-28 09:08 | Outpatient (CLI) | payer MEDICAID ==
[2020-01-28 09:28] VITALS: BP 120/56
== END 2020-01-28 10:50 | disposition home or self-care (01) ==
LOC: II 09:08 → 5TH 09:11 → II 10:50
PROVIDERS: ATTEND Internal Medicine
DX: D57.00 Hb-SS disease with crisis, unspecified (principal); E86.0 Dehydration; R11.0 Nausea; R52 Pain, unspecified
CPT/HCPCS: 96375; 96361; J1200; J1170; J2405; 96374

== ENCOUNTER 2020-01-29 09:16 | Outpatient (CLI) | payer MEDICAID ==
[2020-01-29 10:59] VITALS: BP 117/61
== END 2020-01-29 11:42 | disposition home or self-care (01) ==
LOC: II 09:16 → 5TH 09:19 → II 11:42
PROVIDERS: ATTEND Internal Medicine
DX: D57.00 Hb-SS disease with crisis, unspecified (principal); E86.0 Dehydration; R11.0 Nausea; R52 Pain, unspecified
CPT/HCPCS: 96374; 96375; 96361; J1200; J1170; J2405

== ENCOUNTER → 2020-02-01 | Outpatient (CLI) | payer MEDICAID ==
[~2020-02-01] MED LIST changes: +DIPHENHYDRAMINE HCL 50 MG/ML VIAL ONE; +HYDROMORPHONE HCL INJ/PF 2 MG/ML AMPULE ONE; +ONDANSETRON HCL INJ/PF 4 MG/2 ML SDV ONE
[2020-02-01 14:28] VITALS: BP 116/64
== END ==
LOC: ASU 13:26
PROVIDERS: ATTEND Internal Medicine
DX: D57.00 Hb-SS disease with crisis, unspecified (principal); E86.0 Dehydration; R11.0 Nausea; R52 Pain, unspecified
CPT/HCPCS: 96374; 96375; 96361; J1200; J1170; J2405; 96365

== ENCOUNTER 2020-02-02 12:39 | Outpatient (CLI) | payer MEDICAID ==
[~2020-02-02 12:39] MED LIST changes: -DIPHENHYDRAMINE HCL 50 MG/ML VIAL ONE; -HYDROMORPHONE HCL INJ/PF 2 MG/ML AMPULE ONE; -ONDANSETRON HCL INJ/PF 4 MG/2 ML SDV ONE
[2020-02-02 14:56] VITALS: BP 110/54
== END 2020-02-02 14:59 | disposition home or self-care (01) ==
LOC: II 12:39 → 5TH 12:41 → II 14:59
PROVIDERS: ATTEND Internal Medicine
DX: D57.00 Hb-SS disease with crisis, unspecified (principal); E86.0 Dehydration; R11.0 Nausea; R52 Pain, unspecified
CPT/HCPCS: 96374; 96375; 96361; J1200; J1170; J2405

== ENCOUNTER 2020-02-03 10:06 | Outpatient (CLI) | payer MEDICAID ==
[2020-02-03 10:22] VITALS: BP 120/47
== END 2020-02-03 12:05 | disposition home or self-care (01) ==
LOC: II 10:06 → 5TH 10:09 → II 12:05
PROVIDERS: ATTEND Internal Medicine
DX: D57.00 Hb-SS disease with crisis, unspecified (principal); E86.0 Dehydration; R11.0 Nausea; R52 Pain, unspecified
CPT/HCPCS: 96374; 96375; 96361; J1200; J1170; J2405

== ENCOUNTER 2020-02-04 11:11 | Outpatient (CLI) | payer MEDICAID ==
[2020-02-04 11:20] VITALS: BP 104/66
== END 2020-02-04 13:00 | disposition home or self-care (01) ==
LOC: II 11:11 → 5TH 11:13 → II 13:00
PROVIDERS: ATTEND Internal Medicine
DX: D57.00 Hb-SS disease with crisis, unspecified (principal); E86.0 Dehydration; R11.0 Nausea; R52 Pain, unspecified
CPT/HCPCS: 96374; 96375; 96361; J1200; J1170; J2405

== ENCOUNTER 2020-02-08 19:12 | Outpatient (CLI) | payer MEDICAID ==
[2020-02-08] MEDS ORDERED: DIPHENHYDRAMINE HCL 50 MG/ML VIAL IV PRN (19:45)
[2020-02-08] MEDS ORDERED: HYDROMORPHONE HCL INJ/PF 2 MG/ML AMPULE IV PRN (19:45)
[2020-02-08] MEDS ORDERED: NORMAL SALINE 1000 ML 1,000 ML IV PRN (19:45)
[2020-02-08] MEDS ORDERED: ONDANSETRON HCL INJ/PF 4 MG/2 ML SDV IV PRN (19:45)
== END 2020-02-08 21:00 | disposition home or self-care (01) ==
LOC: II 19:12 → 2S 19:12 → II 21:00
PROVIDERS: ATTEND Internal Medicine
DX: D57.00 Hb-SS disease with crisis, unspecified (principal); E86.0 Dehydration; R11.0 Nausea; R52 Pain, unspecified
CPT/HCPCS: 96374; 96375; 96361; J1200; J1170; J2405; J7030

== ENCOUNTER 2020-02-09 10:32 | Outpatient (CLI) | payer MEDICAID ==
[2020-02-09] MEDS ORDERED: DIPHENHYDRAMINE HCL 50 MG/ML VIAL IV PRN (10:44)
[2020-02-09] MEDS ORDERED: HYDROMORPHONE HCL INJ/PF 2 MG/ML AMPULE IV PRN (10:45)
[2020-02-09] MEDS ORDERED: NORMAL SALINE 1000 ML 1,000 ML IV PRN (10:45)
[2020-02-09] MEDS ORDERED: ONDANSETRON HCL INJ/PF 4 MG/2 ML SDV IV PRN (10:45)
[2020-02-09 11:44] VITALS: BP 102/45
== END 2020-02-09 12:15 | disposition home or self-care (01) ==
LOC: II 10:32 → 5TH 10:37 → II 12:15
PROVIDERS: ATTEND Internal Medicine
DX: D57.00 Hb-SS disease with crisis, unspecified (principal); E86.0 Dehydration; R11.0 Nausea; R52 Pain, unspecified
CPT/HCPCS: 96374; 96375; 96361; J1200; J1170; J2405

== ENCOUNTER 2020-02-10 11:25 | Outpatient (CLI) | payer MEDICAID ==
[2020-02-10 11:35] VITALS: BP 114/54
[2020-02-10] MEDS ORDERED: HYDROMORPHONE HCL INJ/PF 2 MG/ML AMPULE IV PRN (13:05)
== END 2020-02-10 13:30 | disposition home or self-care (01) ==
LOC: II 11:25 → 5TH 11:26 → II 13:30
PROVIDERS: ATTEND Internal Medicine
DX: D57.00 Hb-SS disease with crisis, unspecified (principal); E86.0 Dehydration; R11.0 Nausea; R52 Pain, unspecified
CPT/HCPCS: 96374; 96375; 96361; J1200; J1170; J2405

== ENCOUNTER 2020-02-11 09:06 | Outpatient (CLI) | payer MEDICAID ==
[2020-02-11 09:41] VITALS: BP 125/62
== END 2020-02-11 10:44 | disposition home or self-care (01) ==
LOC: II 09:06 → 5TH 09:09 → II 10:44
PROVIDERS: ATTEND Internal Medicine
DX: D57.00 Hb-SS disease with crisis, unspecified (principal); E86.0 Dehydration; R11.0 Nausea; R52 Pain, unspecified
CPT/HCPCS: 96374; 96375; 96361; J1200; J1170; J2405

== ENCOUNTER 2020-02-12 09:25 | Outpatient (CLI) | payer MEDICAID ==
[2020-02-12 10:34] VITALS: BP 121/50
== END 2020-02-12 12:00 | disposition home or self-care (01) ==
LOC: II 09:25 → 5TH 09:26 → II 12:00
PROVIDERS: ATTEND Internal Medicine
DX: D57.00 Hb-SS disease with crisis, unspecified (principal); E86.0 Dehydration; R11.0 Nausea; R52 Pain, unspecified
CPT/HCPCS: 96374; 96375; 96361; J1200; J1170; J2405

== ENCOUNTER 2020-02-12 15:02 | Inpatient (IN) | payer MEDICAID ==
[~2020-02-12 15:02] MED LIST changes: -DIPHENHYDRAMINE HCL 50 MG/ML VIAL IV PRN; +DIPHENHYDRAMINE HCL 50 MG/ML VIAL ONE; -HYDROMORPHONE HCL INJ/PF 2 MG/ML AMPULE IV PRN; -NORMAL SALINE 1000 ML 1,000 ML IV PRN; -ONDANSETRON HCL INJ/PF 4 MG/2 ML SDV IV PRN; +PHENYLEPHRINE HCL INJ/PF 10 MG/1 ML SDV ONE
[2020-02-12] MEDS ORDERED: NORMAL SALINE 1000 ML 1,000 ML IV ONE (16:41)
[2020-02-12] MEDS ORDERED: DIPHENHYDRAMINE HCL 50 MG/ML VIAL IV ONE ×2 (16:42→23:45)
[2020-02-12] MEDS ORDERED: METOCLOPRAMIDE HCL INJ/PF 10 MG/2 ML SDV IV ONE ×2 (16:43→23:45)
--- NOTE | 2020-02-12 16:51 | ER Document Report ---
ED Medical Screen (RME) - General Chief Complaint: Sickle Cell Crisis Stated Complaint: SICKLE CELL CRISIS Time Seen by Provider: 02/12/20 16:37 Primary Care Provider: AMALIA OROZCO PA-C [Primary Care Provider] - Follow up as needed TRAVEL OUTSIDE OF THE [place] IN LAST 30 DAYS: No - HPI Notes: 02/12/20 16:48 29-year-old female who is 13 weeks with history of sickle cell presents to the emergency room from Dr. Cornelius's office for an exacerbation of her sickle cell. Reports she has been doing infusions this week but last night she started to not feel well. She does take oxycodone, Zofran and folic acid with her prenatals. Denies any chest pain, shortness of breath, fevers, chills. I have greeted and performed a rapid initial assessment of this patient. A comprehensive ED assessment and evaluation of the patient, analysis of test results and completion of the medical decision making process will be conducted by additional ED providers. PHYSICAL EXAMINATION: GENERAL: Well-appearing, well-nourished and in no acute distress CV: s1, s2 regular LUNGS: No respiratory distress - Related Data Allergies/Adverse Reactions: ceftriaxone sodium [From Rocephin] Allergy (Verified 02/12/20 16:37) Cephalosporins Allergy (Verified 02/12/20 16:37) milk [Milk] Allergy (Verified 02/12/20 16:37) Shellfish * [Shellfish] Allergy (Verified 02/12/20 16:37) wheat [Wheat] Allergy (Verified 02/12/20 16:37) Past Medical History - Social History Chew tobacco use (# tins/day): No Frequency of alcohol use: None Drug Abuse: None Family history: None, Reviewed & Not Pertinent - Past Medical History Cardiac Medical History: Reports: Hx Hypertension, Hx Heart Murmur Denies: Hx Coronary Artery Disease, Hx Heart Attack Pulmonary Medical History: Reports: Hx Asthma, Hx Pneumonia - 10/03 Denies: Hx Bronchitis, Hx COPD, Hx Tuberculosis Neurological Medical History: Reports: Hx Migraine, Hx Seizures. Denies: Hx Cerebrovascular Accident Endocrine Medical History: Denies: Hx Diabetes Mellitus Type 1, Hx Diabetes Mellitus Type 2, Hx Hyperthyroidism, Hx Hypothyroidism Renal/ Medical History: Denies: Hx Peritoneal Dialysis GI Medical History: Reports: Hx Gastroesophageal Reflux Disease. Denies: Hx C irrhosis, Hx Hepatitis Musculoskeltal Medical History: Denies Hx Arthritis, Denies Hx Fibromyalgia, Denies Hx Gout Skin Medical History: Denies Hx Eczema, Reports Hx MRSA, Denies Hx Psoriasis Psychiatric Medical History: Reports: Hx Depression Infectious Medical History: Denies: Hx Hepatitis Past Surgical History: Reports: Hx Adenoidectomy, Hx Cholecystectomy, Hx Oral Surgery - growth removed from under tongue, Hx Tonsillectomy, Other - Port placement 2 and removal for infection, multiple PICC lines, central l. Denies: Hx Hysterectomy, Hx Kidney (Renal Surgery), Hx Pacemaker - Immunizations Hx Diphtheria, Pertussis, Tetanus Vaccination: Yes Physical Exam - Vital signs Vitals: Temp Pulse Resp BP Pulse Ox 98.9 F 81 18 121/52 L 99 02/12/20 15:17 02/12/20 15:17 02/12/20 15:17 02/12/20 15:17 02/12/20 15:17 Course - Vital Signs Vital signs: Temp Pulse Resp BP Pulse Ox 98.9 F 81 18 121/52 L 99 02/12/20 15:17 02/12/20 15:17 02/12/20 15:17 02/12/20 15:17 02/12/20 15:17 Doctor's Discharge - Discharge Referrals: AMALIA OROZCO PA-C [Primary Care Provider] - Follow up as needed
[2020-02-12 17:12] LABS: ABSOLUTE BASOPHILS # (AUTO) 0.1 10^3/uL (0.0-0.2); ABSOLUTE LYMPHOCYTES (AUTO) 3.1 10^3/uL (0.5-4.7); ABSOLUTE MONOCYTES (AUTO) 0.9 10^3/uL (0.1-1.4); BASOPHILS % (AUTO) 0.9 % (0-2); EOSINOPHILS % (AUTO) 0.4 % (0-6); HEMATOCRIT 23.5 % (36.0-47.0); HEMOGLOBIN 8.3 g/dL (12.0-15.5); LYMPHOCYTES % (AUTO) 23.6 % (13-45); MEAN CORPUSCULAR HEMOGLOBIN 31.7 pg (27.0-33.4); MEAN CORPUSCULAR HGB CONC 35.4 g/dL (32.0-36.0); MEAN CORPUSCULAR VOLUME 90 fl (80-97); MONOCYTES % (AUTO) 6.7 % (3-13); PLATELET COUNT 326 10^3/uL (150-450); RED BLOOD COUNT 2.63 10^6/uL (3.72-5.28); RED CELL DISTRIBUTION WIDTH 16.6 % (11.5-14.0); RETICULOCYTE COUNT (AUTO) 5.33 % (0.66-2.85); SEGMENTED NEUTROPHILS % (AUTO) 68.4 % (42-78); TOTAL CELLS COUNTED % (AUTO) 100 %; WHITE BLOOD COUNT 13.1 10^3/uL (4.0-10.5)
[2020-02-12 17:27] LABS: ALKALINE PHOSPHATASE 43 U/L (38-126); ASPARTATE AMINO TRANSFERASE 28 U/L (14-36); BILIRUBIN,TOTAL 1.7 mg/dL (0.2-1.3); BLOOD UREA NITROGEN 3 mg/dL (7-20); CALCIUM 8.8 mg/dL (8.4-10.2); GLUCOSE 91 mg/dL (75-110); POTASSIUM 3.2 mmol/L (3.6-5.0); TOTAL PROTEIN 6.6 g/dL (6.3-8.2)
[2020-02-12 17:32] LABS: CARBON DIOXIDE 23 mmol/L (22-30); CHLORIDE 107 mmol/L (98-107)
[2020-02-12 17:33] LABS: ANION GAP 5 (5-19)
[2020-02-12 17:59] LABS: ANISOCYTOSIS 1+; HOWELL-JOLLY BODIES PRESENT; OVALOCYTES SLIGHT; PAPPENHEIMER BODIES PRESENT; PLATELET COMMENT ADEQUATE; POIKILOCYTOSIS 2+; POLYCHROMASIA SLIGHT; SICKLE RED CELLS SLIGHT; TARGET CELLS SLIGHT; TEAR DROP CELLS SLIGHT
[2020-02-12] MEDS ORDERED: HYDROMORPHONE HCL INJ/PF 2 MG/ML AMPULE IV ONE (22:46)
--- NOTE | 2020-02-12 22:47 | ER Document Report ---
ED General Pain - General Chief Complaint: Sickle Cell Crisis Stated Complaint: SICKLE CELL CRISIS Time Seen by Provider: 02/12/20 16:37 Primary Care Provider: AMALIA OROZCO PA-C [Primary Care Provider] - Follow up as needed Mode of Arrival: Ambulatory Information source: Patient Notes: 02/12/20 16:38 - ED Nursing Note by MAURO GRESHAM Rakesh Num: [id number] : 1990 Patient Age: 29 Pt's sickle cell exacerbated last night. Was seen by Dr. Martines this am who states to come to ED for admission. -Daniela notes General Chief Complaint: Sickle Cell Crisis Stated Complaint: SICKLE CELL CRISIS Time Seen by Provider: 02/12/20 16:37 Primary Care Provider: AMALIA OROZCO PA-C [Primary Care Provider] - Follow up as needed TRAVEL OUTSIDE OF THE [place] IN LAST 30 DAYS: No - HPI Notes: 02/12/20 16:48 29-year-old female who is 13 weeks with history of sickle cell presents to the emergency room from Dr. Cornelius's office for an exacerbation of her sickle cell. Reports she has been doing infusions this week but last night she started to not feel well. She does take oxycodone, Zofran and folic acid with her prenatals. Denies any chest pain, shortness of breath, fevers, chills. I have greeted and performed a rapid initial assessment of this patient. A comprehensive ED assessment and evaluation of the patient, analysis of test results and completion of the medical decision making process will be conducted by additional ED providers. PHYSICAL EXAMINATION: GENERAL: Well-appearing, well-nourished and in no acute distress CV: s1, s2 regular LUNGS: No respiratory distress My notes 29-year-old black female arrives with 1 week history of increased sickle cell crisis. Dr. Enamorado was called at 2250 and he advises she has been getting IV fluids all week as well as pain medicine a week. She is now 13 weeks gravid. Patient had a miscarriage in September of this year with [id number] pneumonia. Dr. Cornelius advises she should be admitted with hospitalist and they will deal with her pain medication. may 2019 Gabriele Taylor History of Present Illness Admission Date/PCP: 05/21/19 22:06 AMALIA OROZCO PA-C Patient complains of: Sickle cell crisis History of Present Illness: PRANAV JOINER is a 28 year old female who presents the emergency room with a 2-day history of acute sickle cell crisis. She admits developing back pain and bilateral leg pain typical of her sickle cell crisis onset symptoms 2 days ago. This afternoon after leaving Dr. Cornelius's office her pain dramatically increased to severe (5/5) intensity and generalized (as usual for her sickle cell crises) over her entire body, with the exception of her abdomen, and is worsened by any movement or activity. She denies other associated or accompanying signs and symptoms and admits numerous prior similar episodes. She has not identified any aggravating or ameliorating factors for her acute sickle cell crisis. She does note that she is at 7 weeks of gestation with her first . In the emergency room she was found to have an elevated white blood count of 13,400 and a hemoglobin of 7.8. Dr. Cornelius was consulted by the emergency room physician and he recommended admission for the patient. Patient was subsequently admitted to the hospital for further evaluation and treatment with Dr. Cornelius (hematology) and Dr. Kevin (obstetrics) consulting. TRAVEL OUTSIDE OF THE [place] IN LAST 30 DAYS: No - HPI Onset: This morning Onset/Duration: Sudden, Persistent Quality of pain: Achy Severity: Severe Pain Level: 5 Context: Chronic problem Typical of prior episodes of painful crisis: Yes - Related Data Allergies/Adverse Reactions: ceftriaxone sodium [From Rocephin] Allergy (Verified 02/12/20 16:37) Cephalosporins Allergy (Verified 02/12/20 16:37) milk [Milk] Allergy (Verified 02/12/20 16:37) Shellfish * [Shellfish] Allergy (Verified 02/12/20 16:37) wheat [Wheat] Allergy (Verified 02/12/20 16:37) Past Medical History - General Information source: Patient - Social History Smoking Status: Never Smoker Cigarette use (# per day): No Chew tobacco use (# tins/day): No Smoking Education Provided: No Frequency of alcohol use: None Drug Abuse: None Lives with: Family Family History: Reviewed & Not Pertinent, DM, Malignancy, Other Patient has suicidal ideation: No Patient has homicidal ideation: No - Past Medical History Cardiac Medical History: Reports: Hx Hypertension, Hx Heart Murmur Denies: Hx Coronary Artery Disease, Hx Heart Attack Pulmonary Medical History: Reports: Hx Asthma, Hx Pneumonia - 10/03 Denies: Hx Bronchitis, Hx COPD, Hx Tuberculosis Neurological Medical History: Reports: Hx Migraine, Hx Seizures. Denies: Hx Cerebrovascular Accident Endocrine Medical History: Denies: Hx Diabetes Mellitus Type 1, Hx Diabetes Mellitus Type 2, Hx Hyperthyroidism, Hx Hypothyroidism Renal/ Medical History: Denies: Hx Peritoneal Dialysis GI Medical History: Reports: Hx Gastroesophageal Reflux Disease. Denies: Hx Cirrhosis, Hx Hepatitis Musculoskeletal Medical History: Denies Hx Arthritis, Denies Hx Fibromyalgia, Denies Hx Gout Skin Medical History: Denies Hx Eczema, Reports Hx MRSA, Denies Hx Psoriasis Psychiatric Medical History: Reports: Hx Depression Infectious Medical History: Denies: Hx Hepatitis Past Surgical History: Reports: Hx Adenoidectomy, Hx Cholecystectomy, Hx Oral Surgery - growth removed from under tongue, Hx Tonsillectomy, Other - Port placement 2 and removal for infection, multiple PICC lines, central l. Denies: Hx Hysterectomy, Hx Kidney (Renal Surgery), Hx Pacemaker - Immunizations Hx Diphtheria, Pertussis, Tetanus Vaccination: Yes Hx Pneumococcal Vaccination: 07/08/11 Review of Systems - Review of Systems Constitutional: See HPI, Weakness EENT: No symptoms reported Cardiovascular: No symptoms reported Respiratory: No symptoms reported Gastrointestinal: No symptoms reported Genitourinary: No symptoms reported Female Genitourinary: No symptoms reported Musculoskeletal: See HPI, Muscle pain, Muscle stiffness Skin: No symptoms reported Hematologic/Lymphatic: No symptoms reported Neurological/Psychological: No symptoms reported Physical Exam - Vital signs Vitals: Temp Pulse Resp BP Pulse Ox 98.9 F 81 18 121/52 L 99 02/12/20 15:17 02/12/20 15:17 02/12/20 15:17 02/12/20 15:17 02/12/20 15:17 Interpretation: Tachycardic - HEENT Head: Normocephalic, Atraumatic Eyes: Normal Pupils: PERRL Pharynx: Normal Neck: Normal - Respiratory Respiratory status: No respiratory distress Chest status: Nontender Breath sounds: Normal Chest palpation: Normal - Cardiovascular Rhythm: Tachycardia Heart sounds: Normal auscultation Murmur: No - Abdominal Inspection: Gravid female Bowel sounds: Hypoactive Tenderness: Nontender - Rectal Hemorrhoids: Other - deferred - Genitourinary Bimanuel exam: Other - deferred - Back Back: Normal - Extremities General upper extremity: Normal inspection General lower extremity: Other - diffuse myalgias - Neurological Neuro grossly intact: Yes Cognition: Normal Orientation: AAOx4 Kelsey Coma Scale Eye Opening: Spontaneous [place] Coma Scale Verbal: Oriented [place] Coma Scale Motor: Obeys Commands Kelsey Coma Scale Total: 15 Speech: Normal Motor strength normal: LUE, RUE, LLE, RLE Sensory: Normal - Psychological Associated symptoms: Normal affect - Skin Skin Temperature: Warm Skin Moisture: Dry Course - Vital Signs Vital signs: Temp Pulse Resp BP Pulse Ox 98.9 F 81 18 121/52 L 99 02/12/20 15:17 02/12/20 15:17 02/12/20 15:17 02/12/20 15:17 02/12/20 15:17 - Laboratory Result Diagrams: 02/12/20 16:50 02/12/20 16:50 Laboratory results interpreted by me: 02/12/20 02/12/20 16:50 16:50 WBC 13.1 H RBC 2.63 L Hgb 8.3 L Hct 23.5 L RDW 16.6 H Reticulocyte # 0.140 H Absolute Neuts (auto) 9.0 H Retic Count (auto) 5.33 H Sodium 135.4 L Potassium 3.2 L BUN 3 L Creatinine 0.45 L Total Bilirubin 1.7 H Beta HCG, Quant 97408.00 H Discharge - Discharge Clinical Impression: Chronic pain syndrome, Pain management Qualifiers: Weeks of gestation: 13 weeks Qualified Code(s): Z3A.13 - 13 weeks gestation of Condition: Good Disposition: ADMITTED INPATIENT Admitting Provider: Brandon (Hospitalist) Unit Admitted: Medical Floor Referrals: AMALIA OROZCO PA-C [Primary Care Provider] - Follow up as needed
[2020-02-12] MEDS ORDERED: DIPHENHYDRAMINE HCL 50 MG/ML VIAL IV PRN (23:44)
[2020-02-12] MEDS ORDERED: PROMETHAZINE HCL INJ 25 MG/1 ML VIAL IV PRN (23:45)
[2020-02-13] MEDS ORDERED: RINGERS SOLUTION,LACTATED 1,000 ML IV PRN (01:00)
[2020-02-13] MEDS ORDERED: MAG HYDROX/AL HYDROX/SIMETH SUSP 30 ML UDCUP PO PRN (01:00)
[2020-02-13] MEDS ORDERED: MAGNESIUM HYDROXIDE SUSP 30 ML UDCUP PO PRN (01:00)
[2020-02-13 01:50] LABS: ANION GAP 8 (5-19); BLOOD UREA NITROGEN 3 mg/dL (7-20); CALCIUM 8.5 mg/dL (8.4-10.2); CARBON DIOXIDE 19 mmol/L (22-30); CHLORIDE 110 mmol/L (98-107); GLUCOSE 106 mg/dL (75-110); POTASSIUM 3.4 mmol/L (3.6-5.0)
[2020-02-13 02:20] LABS: FREE T3 3.42 pg/mL (2.77-5.27)
[2020-02-13] MEDS: ONDANSETRON HCL INJ/PF 4 MG/2 ML SDV IV PRN ×3 (02:26→22:47)
[2020-02-13] MEDS: HYDROMORPHONE HCL INJ/PF 2 MG/ML AMPULE IV PRN ×8 (02:26→22:47)
[2020-02-13 02:33] LABS: THYROID STIMULATING HORMONE 1.12 uIU/mL (0.47-4.68)
--- NOTE | 2020-02-13 03:41 | PDOC H&P ---
History of Present Illness Admission Date/PCP: 02/12/20 23:33 AMALIA OROZCO PA-C Patient complains of: Sickle cell crisis History of Present Illness: PRANAV JOINER is a 29 year old female who presented emergency room with a one-week history of sickle cell crisis. She admits that she developed her usual sickle cell crisis symptoms of generalized pains 1 week ago with a dramatic increase in her symptoms over the last 24 hours. She has been seeing Dr. Cornelius in his office and receiving infusions of analgesic medications every day for the last week. She is currently 13 weeks (G2, P0). Her sickle cell crisis pain is accompanied by nausea and associated with a decrease in ap petite. She denies other accompanying or associated signs and symptoms. She has not identified any aggravating or ameliorating factors for her pain. She admits numerous prior similar episodes related to her sickle cell disease. In the emergency room she was found to be stable but was experiencing severe pain. Dr. Cornelius was called by the emergency room provider who requested that the patient be admitted to the hospitalist service with consultation for him to do the patient's pain management during her hospital course. Past Medical History Cardiac Medical History: Reports: Hypertension, Heart Murmur Denies: Coronary Artery Disease, Myocardial Infarction Pulmonary Medical History: Reports: Asthma, Pneumonia - 10/03 Denies: Bronchitis, Chronic Obstructive Pulmonary Disease (COPD), Tuberculosis Neurological Medical History: Reports: Migraine, Seizures Endocrine Medical History: Denies: Diabetes Mellitus Type 1, Diabetes Mellitus Type 2, Hyperthyroidism, Hypothyroidism Renal/ Medical History: Denies: Chronic Kidney Disease, Nephrolithiasis Malignancy Medical History: Reports: None GI Medical History: Reports: Gastroesophageal Reflux Disease Denies: Cirrhosis, Hepatitis Musculoskeltal Medical History: Denies: Arthritis, Fibromyalgia, Gout Skin Medical History: Denies: Eczema, Psoriasis Psychiatric Medical History: Reports: Depression Denies: Alcohol Dependency, Substance Abuse, Tobacco Dependency Traumatic Medical History: Reports: None Hematology: Reports: Anemia, Sickle Cell Disease Denies: Bleeding Tendencies Infectious Medical History: Reports: None Past Surgical History Past Surgical History: Reports: Adenoidectomy, Cholecystectomy, Tonsillectomy, Other - Port placement 2 and removal for infection, multiple PICC & central lines Social History Information Source: Patient Lives with: Parents Smoking Status: Never Smoker Electronic Cigarette use?: No Frequency of Alcohol Use: None Hx Recreational Drug Use: Yes Drugs: Marijuana Hx Prescription Drug Abuse: No - Advance Directive Resuscitation Status: Full Code Surrogate healthcare decision maker:: Wilda Cervantes Family History Family History: DM, Malignancy Parental Family History Reviewed: Yes Children Family History Reviewed: No Sibling(s) Family History Reviewed.: Yes Medication/Allergy Home Medications: Folic Acid 1 mg PO DAILY 07/11/19 Oxycodone HCl 15 mg PO Q3HP PRN 07/11/19 Albuterol Sulfate [Ventolin Hfa 8 gm Mdi] 2 puff IH Q4HP PRN #1 inhaler 10/04/19 Amitriptyline HCl [Elavil 25 mg Tablet] 25 mg PO DAILY 10/04/19 Amitriptyline HCl [Elavil 25 mg Tablet] 50 mg PO QHS 10/04/19 Amlodipine Besylate [Norvasc 5 mg Tablet] 5 mg PO DAILY 10/04/19 Butalb/Acetaminophen/Caffeine [Fioricet (50-325-40 mg) Tablet] 1 tab PO Q4HP PRN MDD 6 TABS 10/04/19 Cetirizine HCl [Zyrtec 10 mg Tablet] 10 mg PO DAILY 10/04/19 Lidocaine [Lidoderm 5% (700 mg) Transdermal Patch] 1 patch TP DAILY #7 adh..patch 10/04/19 Nifedipine [Nifedipine ER] 30 mg PO DAILY 11/01/19 Acetaminophen [Tylenol 325 mg Tablet] 650 mg PO Q4HP PRN tablet 11/05/19 Azithromycin [Zithromax Inj 500 mg Vial] 500 mg IV DAILY vial 11/05/19 Bisacodyl [Dulcolax 5 mg Tablet] 5 mg PO DAILYP PRN tabec 11/05/19 Diphenhydramine HCl [Benadryl Inj 50 mg/1 ml Vial] 25 mg IV Q6HP PRN vial 11/05/19 Docusate Sodium [Colace 100 mg Capsule] 100 mg PO DAILY capsule 11/05/19 Famotidine [Pepcid 20 mg Tablet] 20 mg PO Q12 tablet 11/05/19 Hydromorphone HCl/Pf [Dilaudid Inj/Pf 2 mg/ml Ampule] 4 mg IV Q2HP PRN vial 11/05/19 Ipratropium/Albuterol Sulfate [Duoneb 3 ml Ampul] 3 ml NEB [id number] PRN vial.neb 11/05/19 Levalbuterol HCl [Xopenex Neb 1.25 mg/3 ml Ampul] 1.25 mg NEB RTQ3 vial.neb 11/05/19 Mag Hydrox/Al Hydrox/Simeth [Maalox Plus Susp 30 Udcup] 30 ml PO Q6HP PRN udc 11/05/19 Magnesium Hydroxide [Milk of Magnesia 30 ml Udcup] 30 ml PO HSP PRN udc 11/05/19 Magnesium Oxide [Mag-Ox 400 mg Tablet] 400 mg PO BID tablet 11/05/19 Meropenem [Merrem 1 gm Vial] 1 gm IV Q8 vial 11/05/19 Normal Saline [NaCl 0.9% Inj/Pf 10 ml Sdv] 10 ml IV .AFTER EACH USE PRN vial 11/05/19 Normal Saline [NaCl 0.9% Inj/Pf 10 ml Sdv] 10 ml IV Q12 vial 11/05/19 Doxylamine Succinate/Vit B6 [Jessika Kendrick 10-10 mg Tablet] 1 each PO BIDP PRN #30 tablet. 12/17/19 Pnv No.95/Ferrous Fum/Folic AC [ Vitamins Tablet] 1 each PO DAILY #60 tablet 12/17/19 Allergies/Adverse Reactions: ceftriaxone sodium [From Rocephin] Allergy (Verified 02/12/20 16:37) Cephalosporins Allergy (Verified 02/12/20 16:37) milk [Milk] Allergy (Verified 02/12/20 16:37) Shellfish * [Shellfish] Allergy (Verified 02/12/20 16:37) wheat [Wheat] Allergy (Verified 02/12/20 16:37) Review of Systems Constitutional: PRESENT: as per HPI, other - Generalized pain. ABSENT: chills, fever(s) Eyes: ABSENT: visual disturbances, other - Eye pain Ears: ABSENT: hearing changes, other - Ear pain Nose, Mouth, and Throat: ABSENT: headache(s), sore throat Cardiovascular: ABSENT: edema, palpitations Respiratory: ABSENT: cough, dyspnea Gastrointestinal: PRESENT: nausea. ABSENT: constipation, diarrhea, vomiting Genitourinary: ABSENT: dysuria, hematuria Musculoskeletal: PRESENT: other - Generalized pain. ABSENT: joint swelling Integumentary: ABSENT: pruritus, rash Neurological: ABSENT: confusion, convulsions, focal weakness, memory loss, syncope Psychiatric: ABSENT: anxiety, depression Endocrine: ABSENT: cold intolerance, heat intolerance Hematologic/Lymphatic: ABSENT: easy bleeding, easy bruising Allergic/Immunologic: ABSENT: seasonal rhinorrhea Physical Exam Vital Signs: Temp Pulse Resp BP Pulse Ox 98.9 F 81 18 121/52 L 99 02/12/20 15:17 02/12/20 15:17 02/12/20 15:17 02/12/20 15:17 02/12/20 15:17 Intake & Output 02/11/20 02/12/20 02/13/20 23:59 23:59 23:59 Intake Total 1000 Balance 1000 Weight 58.967 kg General appearance: PRESENT: cooperative, mild distress - Secondary to generalized pain Head exam: PRESENT: atraumatic, normocephalic Eye exam: PRESENT: conjunctiva pink. ABSENT: conjunctival injection, scleral icterus Ear exam: PRESENT: normal external ear exam. ABSENT: bleeding, drainage Mouth exam: PRESENT: dry mucosa, neck supple Neck exam: ABSENT: thyromegaly, tracheal deviation Respiratory exam: PRESENT: clear to auscultation william, symmetrical, unlabored Cardiovascular exam: PRESENT: RRR. ABSENT: clicks, gallop, rubs Pulses: PRESENT: normal radial pulses, normal dorsalis pedis pul Vascular exam: PRESENT: normal capillary refill. ABSENT: pallor GI/Abdominal exam: PRESENT: normal bowel sounds, soft Rectal exam: PRESENT: deferred Extremities exam: ABSENT: joint swelling, pedal edema Musculoskeletal exam: ABSENT: deformity, dislocation Neurological exam: PRESENT: alert, oriented to person, oriented to place, oriented to time, oriented to situation, CN II-XII grossly intact. ABSENT: motor sensory deficit Psychiatric exam: PRESENT: appropriate affect, normal mood Skin exam: PRESENT: dry, intact, warm. ABSENT: jaundice, rash, urticaria Results Laboratory Results: 02/12/20 16:50 02/12/20 16:50 02/12/20 02/12/20 16:50 16:50 WBC 13.1 H RBC 2.63 L Hgb 8.3 L Hct 23.5 L MCV 90 MCH 31.7 MCHC 35.4 RDW 16.6 H Plt Count 326 Seg Neutrophils % 68.4 Retic Count (auto) 5.33 H Sodium 135.4 L Potassium 3.2 L Chloride 107 Carbon Dioxide 23 Anion Gap 5 BUN 3 L Creatinine 0.45 L Est GFR ( Amer) > 60 Glucose 91 Calcium 8.8 Total Bilirubin 1.7 H AST 28 Alkaline Phosphatase 43 Total Protein 6.6 Albumin 4.0 Assessment and Plan - Diagnosis (1) Sickle cell pain crisis Is this a current diagnosis for this admission?: Yes (2) 13 weeks gestation of Is this a current diagnosis for this admission?: Yes (3) Homozygous sickle cell (SS) disease Is this a current diagnosis for this admission?: Yes (4) Sickle cell anemia Qualifiers: Sickle-cell associated disorders: with unspecified crisis Qualified Code(s): D57.00 - Hb-SS disease with crisis, unspecified; D57.0 - Hb-SS disease with crisis Is this a current diagnosis for this admission?: Yes - Plan Summary Summary: Patient will be admitted to the medical floor where she received routine supportive and symptomatic cares. She will receive IV fluids utilizing lactated Ringer's solution at 167 mL/h. She will receive Dilaudid 0.5 to 4 mg IV every 2 hours as needed for pain utilizing a sliding scale for dosing. She will receive IV Benadryl 50 mg every 4 hours as needed for itching. She will receive Zofran 4 mg IV every 4 hours as needed for nausea or vomiting. Dr. Cornelius will be consulted per his request and he will be managing all pain related problems throughout the patient's hospital course. CBCs, metabolic profiles and additional laboratory and/or radiographic evaluations will be obtained as neednany d. Patient will receive a regular diet. - Time Time Spent with patient: Less than 15 minutes Medications reviewed and adjusted accordingly: Yes Anticipated Discharge Disposition: Home, Self Care Anticipated Discharge Timeframe: Undetermined - Inpatient Certification Based on my medical assessment, after consideration of the patient's comorbidities, presenting symptoms, or acuity I expect that the services needed warrant INPATIENT care.: Yes I certify that my determination is in accordance with my understanding of Medicare's requirements for reasonable and necessary INPATIENT services [42 CFR 412.3e].: Yes Medical Necessity: Failure to Improve With Outpatient Therapy, Need For IV Fluids, Need for Pain Control
[2020-02-13] MEDS: HEPARIN SOD (PORCINE) 5,000 UNIT/ML 1 ML VIAL SUBCUT SCH ×3 (05:51→22:23)
[2020-02-13] MEDS: DOCUSATE SODIUM 100 MG CAPSULE PO SCH ×2 (09:00→18:13)
--- NOTE | 2020-02-13 10:18 | PDOC CONSULTATION ---
Consultation Consult Date: 02/13/20 Provider Consulted: LINETTE CHERY Consult reason:: : 13 wks EGA History of Present Illness Admission Date/PCP: 02/12/20 23:33 AMALIA OROZCO PA-C Patient complains of: COnsult from hospitalist team for -13 wks EGA and sickle cell crisis History of Present Illness: PRANAV JOINER is a 29 year old female, at 13 wks EGA admitted with current sickle cell crisis managed by Dr. Cornelius SHe reports no abdominal pain, cramping or vaginal bleeding. At this early gestation, there is no expectation to feel movements. SHe has been seen by Dr. Dutta this pregancy and was supposed to see [facility] in [place] 4 days ago but had to reschedule to 02/16/20 Tolerating regular diet. No bowel or bladder complaints Past Medical History Cardiac Medical History: Reports: Hypertension, Heart Murmur Denies: Coronary Artery Disease, Myocardial Infarction Pulmonary Medical History: Reports: Asthma, Pneumonia - 10/03 Denies: Bronchitis, Chronic Obstructive Pulmonary Disease (COPD), Tuberculosis Neurological Medical History: Reports: Migraine, Seizures Endocrine Medical History: Denies: Diabetes Mellitus Type 1, Diabetes Mellitus Type 2, Hyperthyroidism, Hypothyroidism Renal/ Medical History: Denies: Chronic Kidney Disease, Nephrolithiasis Malignancy Medical History: Reports: None GI Medical History: Reports: Gastroesophageal Reflux Disease Denies: Cirrhosis, Hepatitis Musculoskeltal Medical History: Denies: Arthritis, Fibromyalgia, Gout Skin Medical History: Denies: Eczema, Psoriasis Psychiatric Medical History: Reports: Depression Denies: Alcohol Dependency, Substance Abuse, Tobacco Dependency Traumatic Medical History: Reports: None Infectious Medical History: Reports: None Social History Lives with: Parents Smoking Status: Never Smoker Electronic Cigarette use?: No Frequency of Alcohol Use: None Hx Recreational Drug Use: Yes Drugs: Marijuana Hx Prescription Drug Abuse: No - Advance Directive Resuscitation Status: Full Code Family History Family History: DM, Malignancy Parental Family History Reviewed: Yes Children Family History Reviewed: Yes Sibling(s) Family History Reviewed.: Yes Medication/Allergy Home Medications: Folic Acid 1 mg PO DAILY 07/11/19 Oxycodone HCl 15 mg PO Q3HP PRN 07/11/19 Pnv No.95/Ferrous Fum/Folic AC [ Vitamins Tablet] 1 each PO DAILY #60 ta blet 12/17/19 Ondansetron HCl [Zofran 8 mg Tablet] 8 mg PO Q6HP PRN 02/13/20 Promethazine HCl [Phenergan 25 mg Supp.rect] 25 mg [place] Q12HP PRN 02/13/20 Allergies/Adverse Reactions: ceftriaxone sodium [From Rocephin] Allergy (Verified 02/12/20 16:37) Cephalosporins Allergy (Verified 02/12/20 16:37) milk [Milk] Allergy (Verified 02/12/20 16:37) Shellfish * [Shellfish] Allergy (Verified 02/12/20 16:37) wheat [Wheat] Allergy (Verified 02/12/20 16:37) Review of Systems Constitutional: PRESENT: fatigue. ABSENT: chills, fever(s), headache(s), weight gain, weight loss Cardiovascular: ABSENT: chest pain, dyspnea on exertion, edema, orthropnea, palpitations Respiratory: ABSENT: cough, hemoptysis Gastrointestinal: ABSENT: abdominal pain, constipation, diarrhea, hematemesis, hematochezia, nausea, vomiting Genitourinary: ABSENT: dysuria, hematuria Musculoskeletal: ABSENT: joint swelling Integumentary: ABSENT: rash, wounds Neurological: ABSENT: abnormal speech, confusion, dizziness, focal weakness, syncope Physical Exam - Physical Exam Vital Signs: Temp Pulse Resp BP Pulse Ox 98.0 F 67 16 104/49 L 100 02/13/20 07:26 02/13/20 07:26 02/13/20 07:26 02/13/20 07:26 02/13/20 07:26 Intake & Output 02/12/20 02/13/20 02/14/20 06:59 06:59 06:59 Intake Total 1360 Output Total 900 Balance 460 Weight 58.7 kg General appearance: PRESENT: no acute distress, cooperative Head exam: PRESENT: atraumatic, normocephalic Respiratory exam: PRESENT: clear to auscultation william Cardiovascular exam: PRESENT: RRR, +S1, +S2 GI/Abdominal exam: PRESENT: normal bowel sounds, soft Neurological exam: PRESENT: alert, awake, oriented to person, oriented to place, oriented to time Psychiatric exam: PRESENT: appropriate affect, normal mood Skin exam: PRESENT: dry, intact, warm Result Laboratory Results: 02/12/20 16:50 02/13/20 01:15 02/12/20 02/12/20 02/13/20 16:50 16:50 01:15 WBC 13.1 H RBC 2.63 L Hgb 8.3 L Hct 23.5 L MCV 90 MCH 31.7 MCHC 35.4 RDW 16.6 H Plt Count 326 Seg Neutrophils % 68.4 Retic Count (auto) 5.33 H Sodium 135.4 L 137.0 Potassium 3.2 L 3.4 L Chloride 107 110 H Carbon Dioxide 23 19 L Anion Gap 5 8 BUN 3 L 3 L Creatinine 0.45 L 0.39 L Est GFR ( Amer) > 60 > 60 Glucose 91 106 Calcium 8.8 8.5 Total Bilirubin 1.7 H AST 28 Alkaline Phosphatase 43 Total Protein 6.6 Albumin 4.0 TSH Free T3 pg/mL 02/13/20 01:15 WBC RBC Hgb Hct MCV MCH MCHC RDW Plt Count Seg Neutrophils % Retic Count (auto) Sodium Potassium Chloride Carbon Dioxide Anion Gap BUN Creatinine Est GFR ( Amer) Glucose Calcium Total Bilirubin AST Alkaline Phosphatase Total Protein Albumin TSH 1.12 Free T3 pg/mL 3.42 Assessment & Plan - Diagnosis (1) Sickle cell anemia of mother during Is this a current diagnosis for this admission?: Yes (2) 13 weeks gestation of Is this a current diagnosis for this admission?: Yes - Time Critical Time spent with patient: 15-24 minutes Medications reviewed and adjusted accordingly: Yes Anticipated Discharge Disposition: Home, Self Care Anticipated Discharge Timeframe: primary team to determine - Plan Summary Plan Summary: 29 yo at approximately 13 wks EGA admitted with sickle cell crisis -Reports mild improvement since admission -VSS -Exam: soft abdomen, non-tender -Recommend continue PNV daily and Folic acid 4 mg daily while hospitalized and continue at home -OB US (<14 wks) for viability -Continue current sickle cell management with Dr. Cornelius and Hospitalist team. -OB team will follow while admitted. Encouraged patient to keep OB follow up and f/u with [facility] in [place] as scheduled
[2020-02-13] MEDS ORDERED: POLYETHYLENE GLYCOL 3350 POWDER 17 GM/1 PACKET PO PRN (10:40)
[2020-02-13] MEDS ORDERED: SENNOSIDES/DOCUSATE 8.6-50 MG 1 EACH TABLET PO PRN (10:40)
--- NOTE | 2020-02-13 10:54 | PDOC CONSULTATION ---
Consultation Consult Date: 02/13/20 Attending physician:: MARILYN DUBON Provider Consulted: BRUNA MENJIVAR Consult reason:: Sickle cell crisis in the setting of History of Present Illness Admission Date/PCP: 02/12/20 23:33 AMALIA OROZCO PA-C Patient complains of: Sickle related pain History of Present Illness: PRANAV JOINER is a 29 year old female well-known to our oncology clinic with sickle cell disease longstanding, here with crisis. She is . We have been trying to give her outpatient hydration and pain medications but unfortunately pain increased to an extent that outpatient therapy was not helping. Therefore we recommended her to be admitted through the ER, this was done and she is currently on the floor. Still having considerable pain. We made multiple changes including increasing her Dilaudid, placing K pad for comfort, changing IV fluids from LR to normal saline, plan for 1 unit of packed red blood cell as hemoglobin dropped to the 8 range. This was recommended by both high school academic coach as well as [facility] sickle cell program. The plan was to try and keep her around hemoglobin of 9 as this would improve the chances of live . Past Medical History Cardiac Medical History: Reports: Hypertension, Heart Murmur Denies: Coronary Artery Disease, Myocardial Infarction Pulmonary Medical History: Reports: Asthma, Pneumonia - 10/03 Denies: Bronchitis, Chronic Obstructive Pulmonary Disease (COPD), Tuberculosis Neurological Medical History: Reports: Migraine, Seizures Endocrine Medical History: Denies: Diabetes Mellitus Type 1, Diabetes Mellitus Type 2, Hyperthyroidism, Hypothyroidism Renal/ Medical History: Denies: Chronic Kidney Disease, Nephrolithiasis Malignancy Medical History: Reports: None GI Medical History: Reports: Gastroesophageal Reflux Disease Denies: Cirrhosis, Hepatitis Musculoskeltal Medical History: Denies: Arthritis, Fibromyalgia, Gout Skin Medical History: Denies: Eczema, Psoriasis Psychiatric Medical History: Reports: Depression Denies: Alcohol Dependency, Substance Abuse, Tobacco Dependency Traumatic Medical History: Reports: None Hematology: Reports: Anemia, Sickle Cell Disease Denies: Bleeding Tendencies Infectious Medical History: Reports: None Past Surgical History Past Surgical History: Reports: Adenoidectomy, Cholecystectomy, Tonsillectomy, Other - Port placement 2 and removal for infection, multiple PICC & central lines Denies: Hysterectomy, Pacemaker Social History Lives with: Parents Smoking Status: Never Smoker Electronic Cigarette use?: No Frequency of Alcohol Use: None Hx Recreational Drug Use: Yes Drugs: Marijuana Hx Prescription Drug Abuse: No - Advance Directive Resuscitation Status: Full Code Family History Family History: DM, Malignancy Parental Family History Reviewed: Yes Children Family History Reviewed: Yes Sibling(s) Family History Reviewed.: Yes Medication/Allergy Home Medications: Folic Acid 4 mg PO DAILY 07/11/19 Oxycodone HCl 15 mg PO Q3HP PRN 07/11/19 Pnv No.95/Ferrous Fum/Folic AC [ Vitamins Tablet] 1 each PO DAILY #60 tablet 12/17/19 Ondansetron HCl [Zofran 8 mg Tablet] 8 mg PO Q6HP PRN 02/13/20 Promethazine HCl [Phenergan 25 mg Supp.rect] 25 mg [place] Q12HP PRN 02/13/20 Allergies/Adverse Reactions: ceftriaxone sodium [From Rocephin] Allergy (Verified 02/12/20 16:37) Cephalosporins Allergy (Verified 02/12/20 16:37) milk [Milk] Allergy (Verified 02/12/20 16:37) Shellfish * [Shellfish] Allergy (Verified 02/12/20 16:37) wheat [Wheat] Allergy (Verified 02/12/20 16:37) Review of Systems Constitutional: ABSENT: chills, fever(s), headache(s), weight gain, weight loss Eyes: ABSENT: visual disturbances Ears: ABSENT: hearing changes Cardiovascular: ABSENT: chest pain, dyspnea on exertion, edema, orthropnea, palpitations Respiratory: ABSENT: cough, hemoptysis Gastrointestinal: ABSENT: abdominal pain, constipation, diarrhea, hematemesis, hematochezia, nausea, vomiting Genitourinary: ABSENT: dysuria, hematuria Musculoskeletal: ABSENT: joint swelling Integumentary: ABSENT: rash, wounds Neurological: ABSENT: abnormal gait, abnormal speech, confusion, dizziness, focal weakness, syncope Psychiatric: ABSENT: anxiety, depression, homidical ideation, suicidal ideation Endocrine: ABSENT: cold intolerance, heat intolerance, polydipsia, polyuria Hematologic/Lymphatic: ABSENT: easy bleeding, easy bruising Physical Exam Vital Signs: Temp Pulse Resp BP Pulse Ox 98.0 F 67 16 104/49 L 100 02/13/20 07:26 02/13/20 07:26 02/13/20 07:26 02/13/20 07:26 02/13/20 07:26 Intake & Output 02/12/20 02/13/20 02/14/20 06:59 06:59 06:59 Intake Total 1360 Output Total 900 Balance 460 Weight 58.7 kg General appearance: PRESENT: no acute distress, well-developed, well-nourished Head exam: PRESENT: atraumatic, normocephalic Eye exam: PRESENT: conjunctiva pink, EOMI, PERRLA. ABSENT: scleral icterus Ear exam: PRESENT: normal external ear exam Mouth exam: PRESENT: moist, tongue midline Neck exam: ABSENT: carotid bruit, JVD, lymphadenopathy, thyromegaly Respiratory exam: PRESENT: clear to auscultation william. ABSENT: rales, rhonchi, wheezes Cardiovascular exam: PRESENT: RRR. ABSENT: diastolic murmur, rubs, systolic murmur Pulses: PRESENT: normal dorsalis pedis pul Vascular exam: PRESENT: normal capillary refill GI/Abdominal exam: PRESENT: normal bowel sounds, soft. ABSENT: distended, guarding, mass, organolmegaly, rebound, tenderness Rectal exam: PRESENT: deferred Extremities exam: PRESENT: full ROM. ABSENT: calf tenderness, clubbing, pedal edema Neurological exam: PRESENT: alert, awake, oriented to person, oriented to place, oriented to time, oriented to situation, CN II-XII grossly intact. ABSENT: motor sensory deficit Psychiatric exam: PRESENT: appropriate affect, normal mood. ABSENT: homicidal ideation, suicidal ideation Skin exam: PRESENT: dry, intact, warm. ABSENT: cyanosis, rash Results Laboratory Results: 02/12/20 16:50 02/13/20 01:15 02/12/20 02/12/20 02/13/20 16:50 16:50 01:15 WBC 13.1 H RBC 2.63 L Hgb 8.3 L Hct 23.5 L MCV 90 MCH 31.7 MCHC 35.4 RDW 16.6 H Plt Count 326 Seg Neutrophils % 68.4 Retic Count (auto) 5.33 H Sodium 135.4 L 137.0 Potassium 3.2 L 3.4 L Chloride 107 110 H Carbon Dioxide 23 19 L Anion Gap 5 8 BUN 3 L 3 L Creatinine 0.45 L 0.39 L Est GFR ( Amer) > 60 > 60 Glucose 91 106 Calcium 8.8 8.5 Total Bilirubin 1.7 H AST 28 Alkaline Phosphatase 43 Total Protein 6.6 Albumin 4.0 TSH Free T3 pg/mL 02/13/20 01:15 WBC RBC Hgb Hct MCV MCH MCHC RDW Plt Count Seg Neutrophils % Retic Count (auto) Sodium Potassium Chloride Carbon Dioxide Anion Gap BUN Creatinine Est GFR ( Amer) Glucose Calcium Total Bilirubin AST Alkaline Phosphatase Total Protein Albumin TSH 1.12 Free T3 pg/mL 3.42 Assessment & Plan - Diagnosis (1) Sickle cell pain crisis Is this a current diagnosis for this admission?: Yes Plan: Sickle cell pain crisis. Made multiple changes as noted in HPI and order set. We will make all pain changes as needed. Continue with supportive care. 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 - Time Time Spent: 50 to 70 Minutes - Inpatient Certification Based on my medical assessment, after consideration of the patient's comorbidities, presenting symptoms, or acuity I expect that the services needed warrant INPATIENT care.: Yes I certify that my determination is in accordance with my understanding of Medicare's requirements for reasonable and necessary INPATIENT services [42 CFR 412.3e].: Yes Medical Necessity: Need For IV Fluids, Need for Pain Control
[2020-02-13 11:15] LABS: HEMATOCRIT 22.2 % (36.0-47.0); MEAN CORPUSCULAR HEMOGLOBIN 31.2 pg (27.0-33.4); MEAN CORPUSCULAR HGB CONC 35.7 g/dL (32.0-36.0); MEAN CORPUSCULAR VOLUME 87 fl (80-97); PLATELET COUNT 332 10^3/uL (150-450); RED BLOOD COUNT 2.54 10^6/uL (3.72-5.28); RED CELL DISTRIBUTION WIDTH 16.8 % (11.5-14.0); WHITE BLOOD COUNT 12.3 10^3/uL (4.0-10.5)
[2020-02-13 11:17] LABS: HEMOGLOBIN 7.9 g/dL (12.0-15.5)
--- NOTE | 2020-02-13 11:28 | RADIOLOGY REPORT (SQ) ---
EXAM DESCRIPTION: U/S [id number] TRNABD 1GES W/ODOP IMAGES COMPLETED DATE/TIME: 02/13/2020 10:30 am REASON FOR STUDY: viability COMPARISON: None. TECHNIQUE: Transabdominal static and realtime grayscale images acquired of the pelvis. Additional se lected spectral and color Doppler images recorded. All images stored on PACs. bHC,000 CLINICAL DATES: 13 weeks 3 days LIMITATIONS: None. FINDINGS: FETUS: Single Living intrauterine . ULTRASOUND EGA: 13 weeks 6 days ULTRASOUND LOWELL: 08/14/2020 EFW: Not applicable less than 20 weeks. CRL: 7.8 cm FHR: 132 beats per minute. SURVEY: No visualized anomalies. AMNIOTIC FLUID: Adequate amount. PLACENTA: Not yet developed due to early gestation. SUBCHORIONIC BLEED: No. SIZE OF BLEED: Not applicable. UTERUS: No masses. No anomalies. CERVICAL LENGTH: 3.3 cm. Closed. RIGHT ADNEXA: Ovary not identified due to poor acoustical window. No adnexal free fluid. No adnexal masses. LEFT ADNEXA: Normal ovary with normal vascular flow. No adnexal free fluid. No adnexal masses. FREE FLUID: None. OTHER: No other significant finding. IMPRESSION: LIVING INTRAUTERINE . EGA 13 weeks 6 days. Trimester of : Second trimester - 13 weeks 1 day to 27 weeks 6 days. TECHNICAL DOCUMENTATION: JOB ID: [id number] 2010 [employer]- All Rights Reserved rev-11/22 Reading location - IP/workstation name: [email or web address]
[2020-02-13] MEDS: FOLIC ACID 1 MG TABLET PO SCH (11:51)
[2020-02-13] MEDS: PRENATAL VITAMIN W DHA CAPSULE PO SCH (11:51)
[2020-02-13] MEDS: PROMETHAZINE HCL INJ 25 MG/1 ML VIAL IV PRN ×2 (11:52→19:30)
--- NOTE | 2020-02-13 12:01 | PDOC CONSULTATION ---
Consultation Consult Date: 02/13/20 Attending physician:: paulino Provider Consulted: SAMANTHA SCHAFER Consult reason:: Long-term IV access History of Present Illness Admission Date/PCP: 02/12/20 23:33 AMALIA OROZCO PA-C History of Present Illness: PRANAV JOINER is a 29 year old female 29-year-old white female, 13 weeks intrauterine , long history of sickle cell anemia, now admitted for sickle cell crisis. Patient has a long history of extensive central and peripheral IV accesses including ports, Smith catheters, and picklines. She she currently has a right upper extremity peripheral IV functioning satisfactorily. Surgery was consulted for more rel iable IV access. Patient has had lunch. She is receiving narcotic pain medication. She had a COVID test in October which was negative, none since. Past Medical History Cardiac Medical History: Reports: Hypertension, Heart Murmur Denies: Coronary Artery Disease, Myocardial Infarction Pulmonary Medical History: Reports: Asthma, Pneumonia - 10/03 Denies: Bronchitis, Chronic Obstructive Pulmonary Disease (COPD), Tuberculosis Neurological Medical History: Reports: Migraine, Seizures Endocrine Medical History: Denies: Diabetes Mellitus Type 1, Diabetes Mellitus Type 2, Hyperthyroidism, Hypothyroidism Renal/ Medical History: Denies: Chronic Kidney Disease, Nephrolithiasis Malignancy Medical History: Reports: None GI Medical History: Reports: Gastroesophageal Reflux Disease Denies: Cirrhosis, Hepatitis Musculoskeltal Medical History: Denies: Arthritis, Fibromyalgia, Gout Skin Medical History: Denies: Eczema, Psoriasis Psychiatric Medical History: Reports: Depression Denies: Alcohol Dependency, Substance Abuse, Tobacco Dependency Traumatic Medical History: Reports: None Hematology: Reports: Anemia, Sickle Cell Disease Denies: Bleeding Tendencies Infectious Medical History: Reports: None Past Surgical History Past Surgical History: Reports: Adenoidectomy, Cholecystectomy, Tonsillectomy, Other - Port placement 2 and removal for infection, multiple PICC & central lines Denies: Hysterectomy, Pacemaker Social History Lives with: Parents Smoking Status: Never Smoker Electronic Cigarette use?: No Frequency of Alcohol Use: None Hx Recreational Drug Use: Yes Drugs: Marijuana Hx Prescription Drug Abuse: No - Advance Directive Resuscitation Status: Full Code Family History Family History: None, DM, Malignancy Parental Family History Reviewed: No Children Family History Reviewed: No Sibling(s) Family History Reviewed.: No Medication/Allergy Home Medications: Folic Acid 4 mg PO DAILY 07/11/19 Oxycodone HCl 15 mg PO Q3HP PRN 07/11/19 Pnv No.95/Ferrous Fum/Folic AC [ Vitamins Tablet] 1 each PO DAILY #60 tablet 12/17/19 Ondansetron HCl [Zofran 8 mg Tablet] 8 mg PO Q6HP PRN 02/13/20 Promethazine HCl [Phenergan 25 mg Supp.rect] 25 mg [place] Q12HP PRN 02/13/20 Allergies/Adverse Reactions: ceftriaxone sodium [From Rocephin] Allergy (Verified 02/12/20 16:37) Cephalosporins Allergy (Verified 02/12/20 16:37) milk [Milk] Allergy (Verified 02/12/20 16:37) Shellfish * [Shellfish] Allergy (Verified 02/12/20 16:37) wheat [Wheat] Allergy (Verified 02/12/20 16:37) Review of Systems Constitutional: PRESENT: as per HPI Eyes: ABSENT: visual disturbances Gastrointestinal: ABSENT: abdominal pain, constipation, diarrhea, hematemesis, hematochezia, nausea, vomiting Neurological: PRESENT: paresthesias, restless legs Physical Exam Vital Signs: Temp Pulse Resp BP Pulse Ox 98.0 F 67 16 104/49 L 100 02/13/20 07:26 02/13/20 07:26 02/13/20 07:26 02/13/20 07:26 02/13/20 07:26 Intake & Output 02/12/20 02/13/20 02/14/20 06:59 06:59 06:59 Intake Total 1360 Output Total 900 Balance 460 Weight 58.7 kg General appearance: PRESENT: no acute distress Eye exam: PRESENT: EOMI Mouth exam: PRESENT: dry mucosa Neck exam: PRESENT: full ROM Respiratory exam: PRESENT: clear to auscultation william Cardiovascular exam: PRESENT: RRR Pulses: PRESENT: normal carotid pulses, normal radial pulses, normal femoral pulses GI/Abdominal exam: PRESENT: soft Rectal exam: PRESENT: deferred Extremities exam: PRESENT: full ROM Musculoskeletal exam: PRESENT: full ROM Neurological exam: PRESENT: oriented to person, oriented to place, oriented to time, oriented to situation Psychiatric exam: PRESENT: appropriate affect Skin exam: PRESENT: other - Multiple scars on both sides of the neck, right subclavian area, and upper extremities consistent with previous accesses Results Laboratory Results: 02/13/20 10:50 02/13/20 01:15 02/12/20 02/12/20 02/13/20 16:50 16:50 01:15 WBC 13.1 H RBC 2.63 L Hgb 8.3 L Hct 23.5 L MCV 90 MCH 31.7 MCHC 35.4 RDW 16.6 H Plt Count 326 Seg Neutrophils % 68.4 Retic Count (auto) 5.33 H Sodium 135.4 L 137.0 Potassium 3.2 L 3.4 L Chloride 107 110 H Carbon Dioxide 23 19 L Anion Gap 5 8 BUN 3 L 3 L Creatinine 0.45 L 0.39 L Est GFR ( Amer) > 60 > 60 Glucose 91 106 Calcium 8.8 8.5 Total Bilirubin 1.7 H AST 28 Alkaline Phosphatase 43 Total Protein 6.6 Albumin 4.0 TSH Free T3 pg/mL 02/13/20 02/13/20 01:15 10:50 WBC 12.3 H RBC 2.54 L Hgb 7.9 L Hct 22.2 L MCV 87 MCH 31.2 MCHC 35.7 RDW 16.8 H Plt Count 332 Seg Neutrophils % Retic Count (auto) Sodium Potassium Chloride Carbon Dioxide Anion Gap BUN Creatinine Est GFR ( Amer) Glucose Calcium Total Bilirubin AST Alkaline Phosphatase Total Protein Albumin TSH 1.12 Free T3 pg/mL 3.42 Impressions: Obstetrics Ultrasound 02/13/20 00:00 IMPRESSION: LIVING INTRAUTERINE . EGA 13 weeks 6 days. Trimester of : Second trimester - 13 weeks 1 day to 27 weeks 6 days. Assessment & Plan - Diagnosis (1) Sickle cell pain crisis Is this a current diagnosis for this admission?: Yes Plan: Impression: Recurrent sickle cell pain crisis being managed with intravenous narcotics; anemia and leukocytosis in 29-year-old Afro-[place] female with a 13-week intrauterine . Currently patient has a functioning right upper extremity peripheral IV. Long history of intermediate and chronic IV access catheters. Recommendations: 1. Continue to use right upper extremity peripheral IV access 2. We will obtain a rapid COVID test now 3. 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 (3) 13 weeks gestation of Is this a current diagnosis for this admission?: Yes (4) Sickle cell anemia of mother during Is this a current diagnosis for this admission?: Yes (5) Chronic prescription opiate use Is this a current diagnosis for this admission?: Yes
[2020-02-13] MEDS: DIPHENHYDRAMINE HCL 50 MG/ML VIAL IV PRN ×2 (12:07→19:30)
[2020-02-13] MEDS: NORMAL SALINE 1000 ML 1,000 ML IV PRN ×2 (12:13→12:19)
--- NOTE | 2020-02-13 17:09 | PDOC PROGRESS REPORT ---
Subjective Progress Note for:: 02/13/20 Subjective:: PRANAV JOINER is a 29 year old female past medical history of sickle cell disease who is also sent to ED due to sickle cell crisis, initially treated and oncology clinic by Dr. Cornelius but unfortunately patient pain was uncontrollable sent to ED. 02/13/2020. Saw patient this afternoon comfortably sitting in no apparent distress, receiving her PRBC transfusion ordered by Dr. Cornelius stating that she still having pain but is tolerable, denies any fever, chills, nausea, vomiting. Reason For Visit: ACUTE SICKLE CELL CRISIS Physical Exam Vital Signs: Temp Pulse Resp BP Pulse Ox 97.9 F 65 16 109/33 L 100 02/13/20 15:44 02/13/20 15:44 02/13/20 15:44 02/13/20 15:44 02/13/20 15:44 Intake & Output 02/12/20 02/13/20 02/14/20 06:59 06:59 06:59 Intake Total 1360 315 Output Total 900 Balance 460 315 Weight 58.7 kg General appearance: PRESENT: no acute distress, well-developed, well-nourished Head exam: PRESENT: atraumatic, normocephalic Respiratory exam: PRESENT: clear to auscultation william. ABSENT: rales, rhonchi, wheezes Cardiovascular exam: PRESENT: RRR. ABSENT: diastolic murmur, rubs, systolic murmur GI/Abdominal exam: PRESENT: normal bowel sounds, soft. ABSENT: distended, guard ing, mass, organolmegaly, rebound, tenderness Extremities exam: PRESENT: other - Diffuse musculoskeletal pain. Neurological exam: PRESENT: alert, awake, oriented to person, oriented to place, oriented to time, oriented to situation, CN II-XII grossly intact. ABSENT: motor sensory deficit Results Laboratory Results: 02/13/20 10:50 02/13/20 01:15 02/12/20 02/12/20 02/13/20 16:50 16:50 01:15 WBC 13.1 H RBC 2.63 L Hgb 8.3 L Hct 23.5 L MCV 90 MCH 31.7 MCHC 35.4 RDW 16.6 H Plt Count 326 Seg Neutrophils % 68.4 Retic Count (auto) 5.33 H Sodium 135.4 L 137.0 Potassium 3.2 L 3.4 L Chloride 107 110 H Carbon Dioxide 23 19 L Anion Gap 5 8 BUN 3 L 3 L Creatinine 0.45 L 0.39 L Est GFR ( Amer) > 60 > 60 Glucose 91 106 Calcium 8.8 8.5 Total Bilirubin 1.7 H AST 28 Alkaline Phosphatase 43 Total Protein 6.6 Albumin 4.0 TSH Free T3 pg/mL Blood Type Antibody Screen 02/13/20 02/13/20 02/13/20 01:15 10:50 10:50 WBC 12.3 H RBC 2.54 L Hgb 7.9 L Hct 22.2 L MCV 87 MCH 31.2 MCHC 35.7 RDW 16.8 H Plt Count 332 Seg Neutrophils % Retic Count (auto) Sodium Potassium Chloride Carbon Dioxide Anion Gap BUN Creatinine Est GFR ( Amer) Glucose Calcium Total Bilirubin AST Alkaline Phosphatase Total Protein Albumin TSH 1.12 Free T3 pg/mL 3.42 Blood Type O POSITIVE Antibody Screen NEGATIVE Impressions: Obstetrics Ultrasound 02/13/20 00:00 IMPRESSION: LIVING INTRAUTERINE . EGA 13 weeks 6 days. Trimester of : Second trimester - 13 weeks 1 day to 27 weeks 6 days. Assessment and Plan - Diagnosis (1) Sickle cell pain crisis Is this a current diagnosis for this admission?: Yes Plan: Oncology on board, managing IV opiates. Continue IV fluids. Monitor in and out, monitor pulse respiration, monitor vitals. (2) Sickle cell anemia of mother during Is this a current diagnosis for this admission?: Yes (3) Sickle cell anemia Qualifiers: Sickle-cell associated disorders: with unspecified crisis Qualified Co de(s): D57.00 - Hb-SS disease with crisis, unspecified; D57.0 - Hb-SS disease with crisis Is this a current diagnosis for this admission?: Yes Plan: Status post 1 PRBC transfusion. Monitor H&H. Supportive transfusions. (4) 13 weeks gestation of Is this a current diagnosis for this admission?: Yes Plan: OB team on board, abdominal ultrasound shows a intrauterine viable less than 14 weeks fetus. Follow-up with OB as outpatient. - Plan Summary Summary: Patient will be admitted to the medical floor where she received routine supportive and symptomatic cares. She will receive IV fluids utilizing lactated Ringer's solution at 167 mL/h. She will receive Dilaudid 0.5 to 4 mg IV every 2 hours as needed for pain utilizing a sliding scale for dosing. She will receive IV Benadryl 50 mg every 4 hours as needed for itching. She will receive Zofran 4 mg IV every 4 hours as needed for nausea or vomiting. Dr. Cornelius will be consulted per his request and he will be managing all pain related problems throughout the patient's hospital course. CBCs, metabolic profiles and additional laboratory and/or radiographic evaluations will be obtained as needed. Patient will receive a regular diet. - Time Time Spent with patient: 25-34 minutes Medications reviewed and adjusted accordingly: Yes Anticipated Discharge Disposition: Home, Self Care Anticipated Discharge Timeframe: within 72 hours
[2020-02-13] MEDS ORDERED: PRENATAL VITAMIN W DHA CAPSULE PO SCH (17:15)
[2020-02-13 21:36] LABS: ABSOLUTE BASOPHILS # (AUTO) 0.1 10^3/uL (0.0-0.2); ABSOLUTE EOSINOPHILS # (AUTO) 0.1 10^3/uL (0.0-0.6); ABSOLUTE LYMPHOCYTES (AUTO) 3.3 10^3/uL (0.5-4.7); ABSOLUTE MONOCYTES (AUTO) 0.9 10^3/uL (0.1-1.4); ABSOLUTE NEUT (AUTO) 9.9 10^3/uL (1.7-8.2); BASOPHILS % (AUTO) 0.7 % (0-2); EOSINOPHILS % (AUTO) 0.7 % (0-6); HEMATOCRIT 24.7 % (36.0-47.0); HEMOGLOBIN 8.7 g/dL (12.0-15.5); LYMPHOCYTES % (AUTO) 23.3 % (13-45); MEAN CORPUSCULAR HGB CONC 35.3 g/dL (32.0-36.0); MEAN CORPUSCULAR VOLUME 88 fl (80-97); PLATELET COUNT 313 10^3/uL (150-450); RED BLOOD COUNT 2.82 10^6/uL (3.72-5.28); RED CELL DISTRIBUTION WIDTH 16.5 % (11.5-14.0); SEGMENTED NEUTROPHILS % (AUTO) 69.3 % (42-78); TOTAL CELLS COUNTED % (AUTO) 100 %; WHITE BLOOD COUNT 14.3 10^3/uL (4.0-10.5)
[2020-02-13 21:54] LABS: ANISOCYTOSIS 2+; BURR CELLS SLIGHT; OVALOCYTES SLIGHT; POIKILOCYTOSIS 2+; SCHISTOCYTES 2+; TARGET CELLS SLIGHT; TEAR DROP CELLS 1+; TOXIC GRANULATION SLIGHT
[2020-02-13 21:55] LABS: PLATELET COMMENT ADEQUATE
[2020-02-14] MEDS: HYDROMORPHONE HCL INJ/PF 2 MG/ML AMPULE IV PRN ×10 (01:54→22:31)
[2020-02-14] MEDS: DIPHENHYDRAMINE HCL 50 MG/ML VIAL IV PRN ×4 (01:54→22:31)
[2020-02-14] MEDS: PROMETHAZINE HCL INJ 25 MG/1 ML VIAL IV PRN ×4 (01:55→22:31)
[2020-02-14] MEDS: HEPARIN SOD (PORCINE) 5,000 UNIT/ML 1 ML VIAL SUBCUT SCH ×3 (06:13→22:32)
[2020-02-14 06:33] LABS: ABSOLUTE BASOPHILS # (AUTO) 0.1 10^3/uL (0.0-0.2); ABSOLUTE EOSINOPHILS # (AUTO) 0.1 10^3/uL (0.0-0.6); ABSOLUTE LYMPHOCYTES (AUTO) 2.9 10^3/uL (0.5-4.7); ABSOLUTE MONOCYTES (AUTO) 0.8 10^3/uL (0.1-1.4); ABSOLUTE NEUT (AUTO) 9.4 10^3/uL (1.7-8.2); BASOPHILS % (AUTO) 0.9 % (0-2); HEMOGLOBIN 8.3 g/dL (12.0-15.5); MEAN CORPUSCULAR HEMOGLOBIN 31.1 pg (27.0-33.4); MEAN CORPUSCULAR HGB CONC 36.3 g/dL (32.0-36.0); MEAN CORPUSCULAR VOLUME 86 fl (80-97); MONOCYTES % (AUTO) 6.1 % (3-13); PLATELET COUNT 298 10^3/uL (150-450); RED BLOOD COUNT 2.68 10^6/uL (3.72-5.28); RED CELL DISTRIBUTION WIDTH 16.8 % (11.5-14.0); TOTAL CELLS COUNTED % (AUTO) 100 %; WHITE BLOOD COUNT 13.3 10^3/uL (4.0-10.5)
[2020-02-14 07:36] LABS: ALBUMIN 3.7 g/dL (3.5-5.0); ALKALINE PHOSPHATASE 44 U/L (38-126); ASPARTATE AMINO TRANSFERASE 46 U/L (14-36); BILIRUBIN,TOTAL 1.9 mg/dL (0.2-1.3); BLOOD UREA NITROGEN 3 mg/dL (7-20); CALCIUM 8.5 mg/dL (8.4-10.2); GLUCOSE 71 mg/dL (75-110); POTASSIUM 3.9 mmol/L (3.6-5.0); TOTAL PROTEIN 6.3 g/dL (6.3-8.2)
[2020-02-14 07:42] LABS: ANION GAP 7 (5-19); CARBON DIOXIDE 21 mmol/L (22-30); CHLORIDE 107 mmol/L (98-107)
--- NOTE | 2020-02-14 09:08 | Progress Note ---
Provider Note Provider Note: Case discussed with Dr. Cornelius this morning. Patient was scheduled to have a Mediport placed today. Due to the patient's history of multiple line infections, Dr. Cornelius prefers PICC line insertion. Will consult radiology for PICC line placement tomorrow.
[2020-02-14] MEDS: FOLIC ACID 1 MG TABLET PO SCH (09:10)
[2020-02-14] MEDS: PRENATAL VITAMIN W DHA CAPSULE PO SCH (09:11)
[2020-02-14] MEDS ORDERED: FOLIC ACID 1 MG TABLET PO SCH (10:00)
[2020-02-14] MEDS: DOCUSATE SODIUM 100 MG CAPSULE PO SCH ×2 (11:00→17:30)
[2020-02-14] MEDS: NORMAL SALINE 1000 ML 1,000 ML IV PRN ×2 (11:02→17:31)
[2020-02-14] MEDS: ONDANSETRON HCL INJ/PF 4 MG/2 ML SDV IV PRN (13:09)
--- NOTE | 2020-02-14 13:46 | PDOC PROGRESS REPORT ---
Subjective Progress Note for:: 02/14/20 Subjective:: PRANAV JOINER is a 29 year old female past medical history of sickle cell disease who is also sent to ED due to sickle cell crisis, initially treated and oncology clinic by Dr. Cornelius but unfortunately patient pain was uncontrollable sent to ED. 02/13/2020. Saw patient this afternoon comfortably sitting in no apparent distress, receiving her PRBC transfusion ordered by Dr. Cornelius stating that she still having pain but is tolerable, denies any fever, chills, nausea, vomiting. 02/14/2020. No acute events overnight. Patient sitting in her recliner no apparent distress, still complaining of generalized pain otherwise denies any fever, chills, nausea, vomiting. Reason For Visit: ACUTE SICKLE CELL CRISIS Physical Exam Vital Signs: Temp Pulse Resp BP Pulse Ox 98.3 F 86 17 130/62 H 100 02/14/20 13:00 02/14/20 13:00 02/14/20 13:00 02/14/20 13:00 02/14/20 13:00 Intake & Output 02/13/20 02/14/20 02/15/20 06:59 06:59 06:59 Intake Total 1360 2365 380 Output Total 900 1500 Balance 460 865 380 Weight 58.7 kg 61.3 kg General appearance: PRESENT: no acute distress, well-developed, well-nourished Head exam: PRESENT: atraumatic, normocephalic Respiratory exam: PRESENT: clear to auscultation william. ABSENT: rales, rhonchi, wheezes GI/Abdominal exam: PRESENT: normal bowel sounds, soft. ABSENT: distended, guarding, mass, organolmegaly, rebound, tenderness Neurological exam: PRESENT: alert, awake, oriented to person, oriented to place, oriented to time, oriented to situation Results Laboratory Results: 02/14/20 06:05 02/14/20 06:05 02/13/20 02/13/20 02/14/20 10:50 21:28 06:05 WBC 14.3 H 13.3 H RBC 2.82 L 2.68 L Hgb 8.7 L 8.3 L Hct 24.7 L 23.0 L MCV 88 86 MCH 31.0 31.1 MCHC 35.3 36.3 H RDW 16.5 H 16.8 H Plt Count 313 298 Seg Neutrophils % 69.3 70.0 Sodium Potassium Chloride Carbon Dioxide Anion Gap BUN Creatinine Est GFR ( Amer) Glucose Calcium Magnesium Total Bilirubin AST Alkaline Phosphatase Total Protein Albumin Blood Type O POSITIVE Antibody Screen NEGATIVE 02/14/20 06:05 WBC RBC Hgb Hct MCV MCH MCHC RDW Plt Count Seg Neutrophils % Sodium 134.8 L Potassium 3.9 Chloride 107 Carbon Dioxide 21 L Anion Gap 7 BUN 3 L Creatinine 0.44 L Est GFR ( Amer) > 60 Glucose 71 L Calcium 8.5 Magnesium 1.6 Total Bilirubin 1.9 H AST 46 H Alkaline Phosphatase 44 Total Protein 6.3 Albumin 3.7 Blood Type Antibody Screen Impressions: Obstetrics Ultrasound 02/13/20 00:00 IMPRESSION: LIVING INTRAUTERINE . EGA 13 weeks 6 days. Trimester of : Second trimester - 13 weeks 1 day to 27 weeks 6 days. Assessment and Plan - Diagnosis (1) Sickle cell pain crisis Is this a current diagnosis for this admission?: Yes Plan: Oncology on board, managing IV opiates. Continue IV fluids. Monitor in and out, monitor pulse respiration, monitor vitals. (2) Sickle cell anemia of mother during Is this a current diagnosis for this admission?: Yes Plan: As per above, oncology and OB on board. (3) Sickle cell anemia Qualifiers: Sickle-cell associated disorders: with unspecified crisis Qualified Code(s): D57.00 - Hb-SS disease with crisis, unspecified; D57.0 - Hb-SS disease with crisis Is this a current diagnosis for this admission?: Yes Plan: Status post 1 PRBC transfusion 02/14/2020. H&H stable. Monitor H&H. Supportive transfusions. (4) 13 weeks gestation of Is this a current diagnosis for this admission?: Yes Plan: OB team on board, abdominal ultrasound shows a intrauterine viable less than 14 weeks fetus. Follow-up with OB as outpatient. - Plan Summary Summary: Patient will be admitted to the medical floor where she received routine supportive and symptomatic cares. She will receive IV fluids utilizing lactated Ringer's solution at 167 mL/h. She will receive Dilaudid 0.5 to 4 mg IV every 2 hours as needed for pain utilizing a sliding scale for dosing. She will receive IV Benadryl 50 mg every 4 hours as needed for itching. She will receive Zofran 4 mg IV every 4 hours as needed for nausea or vomiting. Dr. Cornelius will be consulted per his request and he will be managing all pain related problems throughout the patient's hospital course. CBCs, metabolic profiles and add itional laboratory and/or radiographic evaluations will be obtained as needed. Patient will receive a regular diet. - Time Time Spent with patient: 15-24 minutes Medications reviewed and adjusted accordingly: Yes Anticipated Discharge Disposition: Home, Self Care Anticipated Discharge Timeframe: within 72 hours
[2020-02-15] MEDS: HYDROMORPHONE HCL INJ/PF 2 MG/ML AMPULE IV PRN ×8 (01:32→21:49)
[2020-02-15] MEDS: NORMAL SALINE 1000 ML 1,000 ML IV PRN ×2 (03:45→17:03)
[2020-02-15] MEDS: HEPARIN SOD (PORCINE) 5,000 UNIT/ML 1 ML VIAL SUBCUT SCH ×3 (05:09→22:54)
[2020-02-15] MEDS: PROMETHAZINE HCL INJ 25 MG/1 ML VIAL IV PRN ×2 (06:31→16:55)
[2020-02-15] MEDS: DIPHENHYDRAMINE HCL 50 MG/ML VIAL IV PRN ×2 (06:31→16:53)
[2020-02-15 06:41] LABS: ABSOLUTE BASOPHILS # (AUTO) 0.1 10^3/uL (0.0-0.2); ABSOLUTE EOSINOPHILS # (AUTO) 0.2 10^3/uL (0.0-0.6); ABSOLUTE LYMPHOCYTES (AUTO) 2.1 10^3/uL (0.5-4.7); ABSOLUTE MONOCYTES (AUTO) 0.7 10^3/uL (0.1-1.4); ABSOLUTE NEUT (AUTO) 7.9 10^3/uL (1.7-8.2); BASOPHILS % (AUTO) 0.8 % (0-2); EOSINOPHILS % (AUTO) 1.8 % (0-6); HEMATOCRIT 21.6 % (36.0-47.0); LYMPHOCYTES % (AUTO) 19.5 % (13-45); MEAN CORPUSCULAR HEMOGLOBIN 31.3 pg (27.0-33.4); MEAN CORPUSCULAR HGB CONC 36.8 g/dL (32.0-36.0); MEAN CORPUSCULAR VOLUME 85 fl (80-97); MONOCYTES % (AUTO) 5.9 % (3-13); PLATELET COUNT 297 10^3/uL (150-450); RED BLOOD COUNT 2.53 10^6/uL (3.72-5.28); RED CELL DISTRIBUTION WIDTH 17.2 % (11.5-14.0); TOTAL CELLS COUNTED % (AUTO) 100 %
[2020-02-15 06:47] LABS: ALBUMIN 3.7 g/dL (3.5-5.0); ALKALINE PHOSPHATASE 41 U/L (38-126); ANION GAP 8 (5-19); ASPARTATE AMINO TRANSFERASE 44 U/L (14-36); BILIRUBIN,TOTAL 1.7 mg/dL (0.2-1.3); BLOOD UREA NITROGEN 2 mg/dL (7-20); CALCIUM 8.6 mg/dL (8.4-10.2); CARBON DIOXIDE 22 mmol/L (22-30); CHLORIDE 105 mmol/L (98-107); GLUCOSE 71 mg/dL (75-110); POTASSIUM 3.4 mmol/L (3.6-5.0); TOTAL PROTEIN 6.3 g/dL (6.3-8.2)
[2020-02-15 06:53] LABS: HEMOGLOBIN 7.9 g/dL (12.0-15.5)
[2020-02-15 07:15] LABS: ANISOCYTOSIS 1+
[2020-02-15 07:16] LABS: PLATELET COMMENT ADEQUATE; POIKILOCYTOSIS 1+; POLYCHROMASIA SLIGHT; SICKLE RED CELLS 1+; TARGET CELLS SLIGHT
--- NOTE | 2020-02-15 08:46 | PDOC PROGRESS REPORT ---
Subjective Progress Note for:: 02/15/20 Subjective:: Still having significant pain, I will increase Dilaudid today. Transfusion was given but unfortunately hemoglobin dropped within 24 hours. She is having still severe sickling. Reason For Visit: ACUTE SICKLE CELL CRISIS Physical Exam Vital Signs: Temp Pulse Resp BP Pulse Ox 97.6 F 75 14 122/53 L 100 02/14/20 23:59 02/14/20 23:59 02/14/20 23:59 02/14/20 23:59 02/14/20 23:59 Intake & Output 02/14/20 02/15/20 02/16/20 06:59 06:59 06:59 Intake Total 2365 3488 Output Total 1500 5080 Balance 865 -1592 Weight 61.3 kg 61.3 kg General appearance: PRESENT: no acute distress, well-developed, well-nourished Head exam: PRESENT: atraumatic, normocephalic Eye exam: PRESENT: conjunctiva pink, EOMI, PERRLA. ABSENT: scleral icterus Ear exam: PRESENT: normal external ear exam Mouth exam: PRESENT: moist, tongue midline Neck exam: ABSENT: carotid bruit, JVD, lymphadenopathy, thyromegaly Respiratory exam: PRESENT: clear to auscultation william. ABSENT: rales, rhonchi, wheezes Cardiovascular exam: PRESENT: RRR. ABSENT: diastolic murmur, rubs, systolic murmur Pulses: PRESENT: normal dorsalis pedis pul Vascular exam: PRESENT: normal capillary refill GI/Abdominal exam: PRESENT: normal bowel sounds, soft. ABSENT: distended, guarding, mass, organolmegaly, rebound, tenderness Rectal exam: PRESENT: deferred Extremities exam: PRESENT: full ROM. ABSENT: calf tenderness, clubbing, pedal edema Neurological exam: PRESENT: alert, awake, oriented to person, oriented to place, oriented to time, oriented to situation, CN II-XII grossly intact. ABSENT: motor sensory deficit Psychiatric exam: PRESENT: appropriate affect, normal mood. ABSENT: homicidal ideation, suicidal ideation Skin exam: PRESENT: dry, intact, warm. ABSENT: cyanosis, rash Results Laboratory Results: 02/15/20 06:00 02/15/20 06:00 02/15/20 02/15/20 06:00 06:00 WBC 11.0 H RBC 2.53 L Hgb 7.9 L Hct 21.6 L MCV 85 MCH 31.3 MCHC 36.8 H RDW 17.2 H Plt Count 297 Seg Neutrophils % 72.0 Sodium 134.6 L Potassium 3.4 L Chloride 105 Carbon Dioxide 22 Anion Gap 8 BUN 2 L Creatinine 0.38 L Est GFR ( Amer) > 60 Glucose 71 L Calcium 8.6 Magnesium 1.6 Total Bilirubin 1.7 H AST 44 H Alkaline Phosphatase 41 Total Protein 6.3 Albumin 3.7 Impressions: Obstetrics Ultrasound 02/13/20 00:00 IMPRESSION: LIVING INTRAUTERINE . EGA 13 weeks 6 days. Trimester of : Second trimester - 13 weeks 1 day to 27 weeks 6 days. Assessment & Plan - Diagnosis (1) Sickle cell pain crisis Is this a current diagnosis for this admission?: Yes Plan: Increase Dilaudid, continue other supportive measures, PICC line placement today for access. There was a port consult placed but we discontinued that because she has had 4-5 ports in the last 6 to 7 years all of which have resulted in staph infections and removal. 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 Hemolytic anemia type: other hemoglobinopathy Qualified Code(s): D58.2 - Other hemoglobinopathies Is this a current diagnosis for this admission?: Yes Plan: Hold on transfusion today but will likely plan for 1 unit tomorrow. - Time Time Spent with patient: 35 or more minutes
[2020-02-15] MEDS: DOCUSATE SODIUM 100 MG CAPSULE PO SCH ×2 (09:29→18:17)
[2020-02-15] MEDS: FOLIC ACID 1 MG TABLET PO SCH (09:31)
[2020-02-15] MEDS: PRENATAL VITAMIN W DHA CAPSULE PO SCH (09:31)
--- NOTE | 2020-02-15 13:28 | PDOC PROGRESS REPORT ---
Subjective Progress Note for:: 02/15/20 Subjective:: PRANAV JOINER is a 29 year old female past medical history of sickle cell disease who is also sent to ED due to sickle cell crisis, initially treated and oncology clinic by Dr. Cornelius but unfortunately patient pain was uncontrollable sent to ED. 02/13/2020. Saw patient this afternoon comfortably sitting in no apparent distress, receiving her PRBC transfusion ordered by Dr. Cornelius stating that she still having pain but is tolerable, denies any fever, chills, nausea, vomiting. 02/14/2020. No acute events overnight. Patient sitting in her recliner no apparent distress, still complaining of generalized pain otherwise denies any fever, chills, nausea, vomiting. 02/15/2020. No acute events overnight. Still having significant pain, hemoglobin has dropped a little, denies any fever, chills, nausea, vomiting, diarrhea, constipation or any urinary symptoms. Patient found to have a left axillary abscess and surgery is on board for possible I&D today. Reason For Visit: ACUTE SICKLE CELL CRISIS Physical Exam Vital Signs: Temp Pulse Resp BP Pulse Ox 98.3 F 79 18 117/57 L 100 02/15/20 07:27 02/15/20 07:27 02/15/20 07:27 02/15/20 07:27 02/15/20 07:27 Intake & Output 02/14/20 02/15/20 02/16/20 06:59 06:59 06:59 Intake Total 2365 3488 236 Output Total 1500 5080 800 Balance 970 -5811 -525 Weight 61.3 kg 61.3 kg General appearance: PRESENT: no acute distress, well-developed, well-nourished Head exam: PRESENT: atraumatic, normocephalic Respiratory exam: PRESENT: clear to auscultation william. ABSENT: rales, rhonchi, wheezes Neurological exam: PRESENT: alert, awake, oriented to person, oriented to place, oriented to time, oriented to situation, CN II-XII grossly intact. ABSENT: motor sensory deficit Results Laboratory Results: 02/15/20 06:00 02/15/20 06:00 02/15/20 02/15/20 06:00 06:00 WBC 11.0 H RBC 2.53 L Hgb 7.9 L Hct 21.6 L MCV 85 MCH 31.3 MCHC 36.8 H RDW 17.2 H Plt Count 297 Seg Neutrophils % 72.0 Sodium 134.6 L Potassium 3.4 L Chloride 105 Carbon Dioxide 22 Anion Gap 8 BUN 2 L Creatinine 0.38 L Est GFR ( Amer) > 60 Glucose 71 L Calcium 8.6 Magnesium 1.6 Total Bilirubin 1.7 H AST 44 H Alkaline Phosphatase 41 Total Protein 6.3 Albumin 3.7 Impressions: Obstetrics Ultrasound 02/13/20 00:00 IMPRESSION: LIVING INTRAUTERINE . EGA 13 weeks 6 days. Trimester of : Second trimester - 13 weeks 1 day to 27 weeks 6 days. Assessment and Plan - Diagnosis (1) Sickle cell pain crisis Is this a current diagnosis for this admission?: Yes Plan: Oncology on board, managing IV opiates. Continue IV fluids. Monitor in and out, monitor pulse respiration, monitor vitals. (2) Sickle cell anemia of mother during Is this a current diagnosis for this admission?: Yes Plan: As per above, oncology and OB on board. (3) Sickle cell anemia Qualifiers: Sickle-cell associated disorders: with unspecified crisis Qualified Code(s): D57.00 - Hb-SS disease with crisis, unspecified; D57.0 - Hb-SS disease with crisis Is this a current diagnosis for this admission?: Yes Plan: Status post 1 PRBC transfusion 02/14/2020. H&H stable. Monitor H&H. Supportive transfusions. (4) 13 weeks gestation of Is this a current diagnosis for this admission?: Yes Plan: OB team on board, abdominal ultrasound shows a intrauterine viable less than 14 weeks fetus. Follow-up with OB as outpatient. - Plan Summary Summary: Patient will be admitted to the medical floor where she received routine supportive and symptomatic cares. She will receive IV fluids utilizing lactated Ringer's solution at 167 mL/h. She will receive Dilaudid 0.5 to 4 mg IV every 2 hours as needed for pain utilizing a sliding scale for dosing. She will receive IV Benadryl 50 mg every 4 hours as needed for itching. She will receive Zofran 4 mg IV every 4 hours as needed for nausea or vomiting. Dr. Cornelius will be consulted per his request and he will be managing all pain related problems throughout the patient's hospital course. CBCs, metabolic profiles and additional laboratory and/or radiographic evaluations will be obtained as needed. Patient will receive a regular diet. - Time Time Spent with patient: 15-24 minutes Medications reviewed and adjusted accordingly: Yes Anticipated Discharge Disposition: Home, Self Care Anticipated Discharge Timeframe: within 72 hours
[2020-02-15] MEDS ORDERED: PROPOFOL INJ 200 MG/20 ML VIAL IV ONE (14:26)
[2020-02-15] MEDS ORDERED: MIDAZOLAM 2 MG/2 ML INJ ONE (14:26)
[2020-02-15] MEDS ORDERED: LIDOCAINE 2% INJ-PF (20 MG/ML) 10 ML AMPUL ONE (14:26)
[2020-02-15] MEDS ORDERED: FENTANYL CITRATE INJ/PF 100 MCG/2 ML AMPUL ONE (14:26)
[2020-02-15] MEDS ORDERED: ONDANSETRON HCL INJ/PF 4 MG/2 ML SDV ONE (14:26)
[2020-02-15] MEDS ORDERED: LIDOCAINE 0.5% INJ-PF (5 MG/ML) 50 ML SDV ONE (14:34)
[2020-02-15] MEDS ORDERED: BUPIVACAINE HCL 0.25 % INJ/PF (2.5 MG/1 ML) 30 ML VIAL ONE (14:34)
[2020-02-15] MEDS ORDERED: CLINDAMYCIN PHOSPHATE INJ 300 MG/2 ML SDV ONE (14:36)
--- NOTE | 2020-02-15 15:14 | RADIOLOGY REPORT (SQ) ---
EXAM DESCRIPTION: PICC INSERTION IMAGES COMPLETED DATE/TIME: 02/15/2020 1:57 pm REASON FOR STUDY: picc line for sickle cell crisis COMPARISON: 11/04/2019 FLUOROSCOPY TIME: 0.06 minutes 1 images saved to PACS. TECHNIQUE: Fluoroscopic and ultrasound guided PICC placement. LIMITATIONS: None. PROCEDURE: After written consent and assessment were obtained, the patient was brought into the fluo roscopy room and placed supine on the table. Ultrasound evaluation of potential access sites were per formed. After successfully identifying a patent right basilic vein, the right arm was prepped and joana ped in a sterile fashion along with the ultrasound probe. The entry site was anesthetized with 1% lid ocaine. A 21 gauge 7 cm needle was advanced through the skin and into the basilic vein under live ult rasound guidance. An ultrasound image was saved to PACS confirming access site. Attempts at advanci ng a.018 guide wire was met with resistance. The system was removed and additional access site selec olga along the basilic vein which yielded similar results. Attention was focused on a brachial vein a ccess. Additional 3 cc of 1% lidocaine was utilized for local sedation. A 21 gauge needle was used to access the tracheal vein. Attempts at advancing the 018 wire were met with resistance. The need le was hooked to catheter tubing and a small amount of contrast injected to perform a limited venogra m. Venogram demonstrated extensive collateral vessel network with no direct passage centrally. At t hat point the procedure was terminated. The needle was removed and hemostasis achieved with manual c ompression. A sterile dressing was applied. Case was discussed with ordering team. IMPRESSION: Unsuccessful right upper extremity PICC placement. Limited right arm venogram demonstrated multiple diminutive draining veins with no direct central acc ess. Patient has had history of 19 prior PICCs at this institution. Future PICCs are likely no long er a viable option. COMMENT: Patient medication list reviewed: Yes- Quality ID# 130:Eligible professional attests to doc umenting in the medical record they obtained, updated, or reviewed the patient's current medications. . Quality ID 145: Final reports for procedures using fluoroscopy that document radiation exposure rebecca angy, or exposure time and number of fluorographic images (if radiation exposure indices are not avail able) Quality ID #76: The patient was prepped and draped using maximum sterile barrier technique including cap, mask, sterile gown, sterile gloves, a large sterile sheet, hand hygiene, and 2% Chlorhexidine fo r cutaneous antisepsis. When ultrasound is used, sterile ultrasound techniques are followed requiring sterile gel and sterile probes. TECHNICAL DOCUMENTATION: JOB ID: [id number] 2010 [employer]- All Rights Reserved rev-11/22 Reading location - IP/workstation name: [email or web address]
--- NOTE | 2020-02-15 16:04 | Operative Report ---
Operative Report DATE OF SURGERY: 02/15/20 PREOPERATIVE DIAGNOSIS: 1. Sickle cell crisis. 2. 13-week intrauterine pregn miesha POSTOPERATIVE DIAGNOSIS: Same OPERATION: 1. Focused ultrasound of left neck and insertion of venous access. 2. Placement of a dual-lumen 9 Uzbek Smith catheter in left subclavian position. 3. Interpretation of intraoperative fluoroscopy. 4. Incision, drainage, and packing of left axillary abscess SURGEON: SAMANTHA SCHAFER ANESTHESIA: LMAC TISSUE REMOVED OR ALTERED: Drainage left axilla COMPLICATIONS: None ESTIMATED BLOOD LOSS: Minimal INTRAOPERATIVE FINDINGS: See below PROCEDURE: The patient was taken to the preop holding her to the main operating room where LMAC anesthesia was induced. Arms were tucked, roll placed between the shoulder blades, neck and chest wall prepped and draped sterile fashion Surgical plan and surgical timeout were conducted. The left internal jugular vein was scanned with a variable frequency linear incision felt to be suitable for cannulation. Skin was anesthetized 1% plain lidocaine. A janette was made the skin with 11 blade, and using ultrasound as a guide, the micro needle and wire were threaded to the left internal jugular vein. A suitable site for exit of the Smith catheter chosen the left subclavian pos ition. Skin was anesthetized 1% plain lidocaine, dual-lumen 8 5 Uzbek catheter was tunneled between the 2 incisions. Under fluoroscopic guidance we switched to the microwire over to a conventional guidewire 0.030 inch under fluoroscopic guidance. We then dilated up the track with the small then medium dilators. Finally the medium size dilator and introducer sheath were threaded over the wire, wire and dilator removed, catheter fragment threaded into the left internal jugular vein. Strip away sheath was removed leaving the catheter in good position. There is no kinking of the catheter by fluoroscopic guidance. Tip of the catheter was in the superior vena cava-right atrial region. There was excellent aspiration and flushing through both lumens of the catheter. Catheter lumens were flushed with heparinized saline. Catheter secured to the skin at 4 sites with a 2-0 Prolene suture Biopatch and sterile dressing applied. The initial stick incision was closed with 3-0 Vicryl suture. This concluded the catheter insertion portion of the operation The left axilla was exposed prepped with alcohol. Skin was anesthetized 1% plain lidocaine. A 2 cm longitudinal incision was made over the point of maximum swelling. We got in some watery fluid but no deepali pus. Fluid was sent for Gram stain, culture and sensitivity. Loculations were broken up going towards the anterior axilla index finger. The infection appeared to be stemming from a dermal site, or a superficial lymph node. All loculations were felt to be satisfactorily explored. The wound was irrigated with saline, and packed with approximately a foot and a half of half-inch iodoform packing. Patient tolerated procedure well. Documentation of catheter position at conclusion of operation seen by fluoroscopy.
[2020-02-15] MEDS: FENTANYL CITRATE INJ/PF 100 MCG/2 ML AMPUL ONE ×2 (16:12→16:15)
--- NOTE | 2020-02-15 16:25 | RADIOLOGY REPORT (SQ) ---
EXAM DESCRIPTION: CHEST SINGLE VIEW; FLUORO/CV PLACEMENT IMAGES COMPLETED DATE/TIME: 02/15/2020 4:12 pm REASON FOR STUDY: BENITES PLACEMENT COMPARISON: 0.7 minutes FLUOROSCOPY TIME: 0.7 minutes 3 images saved to PACS. TECHNIQUE: Intra-operative images acquired during surgical procedure to evaluate progress. NUMBER OF IMAGES: 3. LIMITATIONS: None. FINDINGS: Limited intraoperative fluoroscopic images demonstrate evidence of left internal jugular b ased central venous catheter placement. Please see operative report for detailed description. IMPRESSION: IMAGE(S) OBTAINED DURING PROCEDURE. COMMENT: Quality ID [id number]: Final reports for procedures using fluoroscopy that document radiation exp osure indices, or exposure time and number of fluorographic images (if radiation exposure indices are not available) Please consult full operative report of the attending physician for description of the procedure. TECHNICAL DOCUMENTATION: JOB ID: [id number] 2010 [employer]- All Rights Reserved Reading location - IP/workstation name: [email or web address]
--- NOTE | 2020-02-15 16:25 | RADIOLOGY REPORT (SQ) ---
EXAM DESCRIPTION: CHEST SINGLE VIEW; FLUORO/CV PLACEMENT IMAGES COMPLETED DATE/TIME: 02/15/2020 4:12 pm REASON FOR STUDY: BENITES PLACEMENT COMPARISON: 0.7 minutes FLUOROSCOPY TIME: 0.7 minutes 3 images saved to PACS. TECHNIQUE: Intra-operative images acquired during surgical procedure to evaluate progress. NUMBER OF IMAGES: 3. LIMITATIONS: None. FINDINGS: Limited intraoperative fluoroscopic images demonstrate evidence of left internal jugular b ased central venous catheter placement. Please see operative report for detailed description. IMPRESSION: IMAGE(S) OBTAINED DURING PROCEDURE. COMMENT: Quality ID [id number]: Final reports for procedures using fluoroscopy that document radiation exp osure indices, or exposure time and number of fluorographic images (if radiation exposure indices are not available) Please consult full operative report of the attending physician for description of the procedure. TECHNICAL DOCUMENTATION: JOB ID: [id number] 2010 [employer]- All Rights Reserved Reading location - IP/workstation name: [email or web address]
[2020-02-15] MEDS: CLINDAMYCIN 300 MG/D5W RTU 300 MG/50 ML RTUPB IV SCH ×2 (16:55→21:50)
[2020-02-15] MEDS ORDERED: OXYCODONE-ACETAMINOPHEN 5-325 MG TABLET PO PRN ×2 (18:54)
[2020-02-15] MEDS ORDERED: MEPERIDINE HCL/PF INJ 25 MG/1 ML DISP.SYRIN IV PRN (18:54)
[2020-02-15] MEDS ORDERED: DIPHENHYDRAMINE HCL 50 MG/ML VIAL IV PRN (18:54)
[2020-02-15] MEDS ORDERED: PROMETHAZINE HCL INJ 25 MG/1 ML VIAL IV PRN ×2 (18:54)
[2020-02-15] MEDS ORDERED: FENTANYL CITRATE INJ/PF 100 MCG/2 ML AMPUL IV PRN ×3 (18:54)
[2020-02-15] MEDS ORDERED: MORPHINE SULFATE 10 MG/ML INJ IV PRN (18:54)
[2020-02-15] MEDS: ONDANSETRON HCL INJ/PF 4 MG/2 ML SDV IV PRN (21:50)
[2020-02-16] MEDS: PROMETHAZINE HCL INJ 25 MG/1 ML VIAL IV PRN ×4 (00:43→21:42)
[2020-02-16] MEDS: HYDROMORPHONE HCL INJ/PF 2 MG/ML AMPULE IV PRN ×9 (00:44→21:42)
[2020-02-16] MEDS: DIPHENHYDRAMINE HCL 50 MG/ML VIAL IV PRN ×3 (00:44→21:42)
[2020-02-16] MEDS ORDERED: DIPHENHYDRAMINE HCL 25 MG CAPSULE PO PRN (05:00)
[2020-02-16] MEDS ORDERED: ACETAMINOPHEN 325 MG TABLET PO PRN (05:00)
[2020-02-16] MEDS: CLINDAMYCIN 300 MG/D5W RTU 300 MG/50 ML RTUPB IV SCH ×3 (07:54→21:40)
--- NOTE | 2020-02-16 08:50 | PDOC PROGRESS REPORT ---
Subjective Progress Note for:: 02/16/20 Subjective:: Yesterday unfortunately PICC line could not be placed. Ultimately patient required Smith catheter to be placed. Reason For Visit: ACUTE SICKLE CELL CRISIS Physical Exam Vital Signs: Temp Pulse Resp BP Pulse Ox 98.7 F 92 18 102/57 L 99 02/16/20 07:52 02/16/20 07:52 02/16/20 07:52 02/16/20 07:52 02/16/20 07:52 Intake & Output 02/15/20 02/16/20 02/17/20 06:59 06:59 06:59 Intake Total 3488 3916 Output Total 5080 5110 Balance -1592 -1194 Weight 61.3 kg 57.4 kg General appearance: PRESENT: no acute distress, well-developed, well-nourished Head exam: PRESENT: atraumatic, normocephalic Eye exam: PRESENT: conjunctiva pink, EOMI, PERRLA. ABSENT: scleral icterus Ear exam: PRESENT: normal external ear exam Mouth exam: PRESENT: moist, tongue midline Neck exam: ABSENT: carotid bruit, JVD, lymphadenopathy, thyromegaly Respiratory exam: PRESENT: clear to auscultation william. ABSENT: rales, rhonchi, wheezes Cardiovascular exam: PRESENT: RRR. ABSENT: diastolic murmur, rubs, systolic murmur Pulses: PRESENT: normal dorsalis pedis pul Vascular exam: PRESENT: normal capillary refill GI/Abdominal exam: PRESENT: normal bowel sounds, soft. ABSENT: distended, guarding, mass, organolmegaly, rebound, tenderness Rectal exam: PRESENT: deferred Extremities exam: PRESENT: full ROM. ABSENT: calf tenderness, clubbing, pedal edema Neurological exam: PRESENT: alert, awake, oriented to person, oriented to place, oriented to time, oriented to situation, CN II-XII grossly intact. ABSENT: motor sensory deficit Psychiatric exam: PRESENT: appropriate affect, normal mood. ABSENT: homicidal ideation, suicidal ideation Skin exam: PRESENT: dry, intact, warm. ABSENT: cyanosis, rash Results Impressions: Obstetrics Ultrasound 02/13/20 00:00 IMPRESSION: LIVING INTRAUTERINE . EGA 13 weeks 6 days. Trimester of : Second trimester - 13 weeks 1 day to 27 weeks 6 days. Chest X-Ray 02/15/20 00:00 IMPRESSION: IMAGE(S) OBTAINED DURING PROCEDURE. Guidance Fluoroscopy 02/15/20 00:00 IMPRESSION: IMAGE(S) OBTAINED DURING PROCEDURE. PICC Line Insertion 02/15/20 00:00 IMPRESSION: Unsuccessful right upper extremity PICC placement. Limited right arm venogram demonstrated multiple diminutive draining veins with no direct central access. Patient has had history of 19 prior PICCs at this institution. Future PICCs are likely no longer a viable option. Assessment & Plan - Diagnosis (1) Sickle cell pain crisis Is this a current diagnosis for this admission?: Yes Plan: Continue current therapy. 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 Hemolytic anemia type: other hemoglobinopathy Qualified Code(s): D58.2 - Other hemoglobinopathies Is this a current diagnosis for this admission?: Yes Plan: Awaiting hemoglobin, if lower than yesterday then will plan for 1 unit of packed red blood cell. - Time Time Spent with patient: 35 or more minutes
[2020-02-16 08:55] LABS: ABSOLUTE BASOPHILS # (AUTO) 0.1 10^3/uL (0.0-0.2); ABSOLUTE EOSINOPHILS # (AUTO) 0.2 10^3/uL (0.0-0.6); ABSOLUTE LYMPHOCYTES (AUTO) 1.6 10^3/uL (0.5-4.7); ABSOLUTE NEUT (AUTO) 9.4 10^3/uL (1.7-8.2); BASOPHILS % (AUTO) 0.5 % (0-2); EOSINOPHILS % (AUTO) 1.3 % (0-6); HEMATOCRIT 19.3 % (36.0-47.0); LYMPHOCYTES % (AUTO) 13.1 % (13-45); MEAN CORPUSCULAR HEMOGLOBIN 30.8 pg (27.0-33.4); MEAN CORPUSCULAR HGB CONC 36.1 g/dL (32.0-36.0); MEAN CORPUSCULAR VOLUME 85 fl (80-97); MONOCYTES % (AUTO) 8.2 % (3-13); PLATELET COUNT 282 10^3/uL (150-450); RED BLOOD COUNT 2.26 10^6/uL (3.72-5.28); RED CELL DISTRIBUTION WIDTH 16.3 % (11.5-14.0); SEGMENTED NEUTROPHILS % (AUTO) 76.9 % (42-78); TOTAL CELLS COUNTED % (AUTO) 100 %; WHITE BLOOD COUNT 12.3 10^3/uL (4.0-10.5)
--- NOTE | 2020-02-16 09:10 | PDOC PROGRESS REPORT ---
Subjective Progress Note for:: 02/16/20 Subjective:: c/o pain, total body aches Reason For Visit: ACUTE SICKLE CELL CRISIS Physical Exam Vital Signs: Temp Pulse Resp BP Pulse Ox 98.7 F 92 18 102/57 L 99 02/16/20 07:52 02/16/20 07:52 02/16/20 07:52 02/16/20 07:52 02/16/20 07:52 Intake & Output 02/15/20 02/16/20 02/17/20 06:59 06:59 06:59 Intake Total 3488 3916 Output Total 5066 8090 Balance -1590 -7077 Weight 61.3 kg 57.4 kg General appearance: PRESENT: mild distress Head exam: PRESENT: normocephalic Eye exam: PRESENT: EOMI Ear exam: PRESENT: normal external ear exam Mouth exam: PRESENT: moist Neck exam: PRESENT: full ROM Respiratory exam: PRESENT: clear to auscultation william Cardiovascular exam: PRESENT: RRR, other - left chest wall with rees, dressed, funcitoning Pulses: PRESENT: normal radial pulses, normal femoral pulses Vascular exam: PRESENT: normal capillary refill Breast: PRESENT: Normal, Other - left axilla, s/p i and d of abscess sl cellulitis, improved some serous drainage Rectal exam: PRESENT: deferred Musculoskeletal exam: PRESENT: full ROM Neurological exam: PRESENT: alert, awake, oriented to person, oriented to place Psychiatric exam: PRESENT: appropriate affect Skin exam: PRESENT: dry Results Impressions: Obstetrics Ultrasound 02/13/20 00:00 IMPRESSION: LIVING INTRAUTERINE . EGA 13 weeks 6 days. Trimester of : Second trimester - 13 weeks 1 day to 27 weeks 6 days. Chest X-Ray 02/15/20 00:00 IMPRESSION: IMAGE(S) OBTAINED DURING PROCEDURE. Guidance Fluoroscopy 02/15/20 00:00 IMPRESSION: IMAGE(S) OBTAINED DURING PROCEDURE. PICC Line Insertion 02/15/20 00:00 IMPRESSION: Unsuccessful right upper extremity PICC placement. Limited right arm venogram demonstrated multiple diminutive draining veins with no direct central access. Patient has had history of 19 prior PICCs at this institution. Future PICCs are likely no longer a viable option. Assessment & Plan - Time Time Spent: 30 to 50 Minutes Critical Time spent with patient: Less than 15 minutes Medications reviewed and adjusted accordingly: No Anticipated Discharge Disposition: Home, Self Care Anticipated Discharge Timeframe: within 24 hours - Plan Summary Plan Summary: s/p rees cath placement and i and d of left axillary abscess wound clean, plan cont wet to dry dressing ok to use rees pt can f/u in surgery clinic in 7-10 days for the axillary abscess please reconsult if necessary
[2020-02-16 09:16] LABS: ANION GAP 5 (5-19); CALCIUM 7.9 mg/dL (8.4-10.2); CARBON DIOXIDE 24 mmol/L (22-30); CHLORIDE 104 mmol/L (98-107); GLUCOSE 74 mg/dL (75-110); POTASSIUM 3.1 mmol/L (3.6-5.0)
[2020-02-16 09:23] LABS: BLOOD UREA NITROGEN < 2 mg/dL (7-20)
[2020-02-16] MEDS ORDERED: DIPHENHYDRAMINE HCL 50 MG/ML VIAL IV PRN (09:27)
[2020-02-16] MEDS: NORMAL SALINE 10 ML SDV (AFTER EACH USE) IV PRN ×2 (11:59→17:42)
--- NOTE | 2020-02-16 12:29 | PDOC PROGRESS REPORT ---
Subjective Progress Note for:: 02/16/20 Subjective:: PRANAV JOINER is a 29 year old female past medical history of sickle cell disease who is also sent to ED due to sickle cell crisis, initially treated and oncology clinic by Dr. Cornelius but unfortunately patient pain was uncontrollable sent to ED. 02/13/2020. Saw patient this afternoon comfortably sitting in no apparent distress, receiving her PRBC transfusion ordered by Dr. Cornelius stating that she still having pain but is tolerable, denies any fever, chills, nausea, vomiting. 02/14/2020. No acute events overnight. Patient sitting in her recliner no apparent distress, still complaining of generalized pain otherwise denies any fever, chills, nausea, vomiting. 02/15/2020. No acute events overnight. Still having significant pain, hemoglobin has dropped a little, denies any fever, chills, nausea, vomiting, diarrhea, constipation or any urinary symptoms. Patient found to have a left axillary abscess and surgery is on board for possible I&D today. 02/16/2020. Saw patient this afternoon resting in bed stating he still having significant pain, is not getting much sleep, awake and alert and cooperative with physical examination. Denies having any fever. Patient is p.o. tolerant. Patient scheduled to receive another unit of PRBC today. Reason For Visit: ACUTE SICKLE CELL CRISIS Physical Exam Vital Signs: Temp Pulse Resp BP Pulse Ox 99.2 F 90 15 110/48 L 99 02/16/20 11:29 02/16/20 11:29 02/16/20 11:29 02/16/20 11:29 02/16/20 11:29 Intake & Output 02/15/20 02/16/20 02/17/20 06:59 06:59 06:59 Intake Total 3488 3916 300 Output Total 5089 9030 Balance -1592 -2424 300 Weight 61.3 kg 57.4 kg General appearance: PRESENT: no acute distress, well-developed, well-nourished Head exam: PRESENT: atraumatic, normocephalic Respiratory exam: PRESENT: clear to auscultation william. ABSENT: rales, rhonchi, wheezes Cardiovascular exam: PRESENT: RRR. ABSENT: diastolic murmur, rubs, systolic murmur Musculoskeletal exam: PRESENT: tenderness Neurological exam: PRESENT: alert, awake, oriented to person, oriented to place, oriented to time, oriented to situation, CN II-XII grossly intact. ABSENT: motor sensory deficit Results Laboratory Results: 02/16/20 08:10 02/16/20 08:10 02/16/20 02/16/20 08:10 08:10 WBC 12.3 H RBC 2.26 L Hgb 7.0 L Hct 19.3 L MCV 85 MCH 30.8 MCHC 36.1 H RDW 16.3 H Plt Count 282 Seg Neutrophils % 76.9 Sodium 133.0 L Potassium 3.1 L Chloride 104 Carbon Dioxide 24 Anion Gap 5 BUN < 2 L Creatinine 0.40 L Est GFR ( Amer) > 60 Glucose 74 L Calcium 7.9 L Impressions: Obstetrics Ultrasound 02/13/20 00:00 IMPRESSION: LIVING INTRAUTERINE . EGA 13 weeks 6 days. Trimester of : Second trimester - 13 weeks 1 day to 27 weeks 6 days. Chest X-Ray 02/15/20 00:00 IMPRESSION: IMAGE(S) OBTAINED DURING PROCEDURE. Guidance Fluoroscopy 02/15/20 00:00 IMPRESSION: IMAGE(S) OBTAINED DURING PROCEDURE. PICC Line Insertion 02/15/20 00:00 IMPRESSION: Unsuccessful right upper extremity PICC placement. Limited right arm venogram demonstrated multiple diminutive draining veins with no direct central access. Patient has had history of 19 prior PICCs at this institution. Future PICCs are likely no longer a viable option. Assessment and Plan - Diagnosis (1) Sickle cell pain crisis Is this a current diagnosis for this admission?: Yes Plan: Oncology on board, managing IV opiates. Continue IV fluids. Monitor in and out, monitor pulse respiration, monitor vitals. Scheduled to receive PRBC today. Status post 1 PRBC transfusion on 02/15/2020. (2) Sickle cell anemia of mother during Is this a current diagnosis for this admission?: Yes Plan: As per above, oncology and OB on board. (3) Sickle cell anemia Qualifiers: Sickle-cell associated disorders: with unspecified crisis Qualified Code(s): D57.00 - Hb-SS disease with crisis, unspecified; D57.0 - Hb-SS disease with crisis Is this a current diagnosis for this admission?: Yes Plan: Status post 1 PRBC transfusion 02/14/2020. H&H stable. Monitor H&H. Supportive transfusions. (4) 13 weeks gestation of Is this a current diagnosis for this admission?: Yes Plan: OB team on board, abdominal ultrasound shows a intrauterine viable less than 14 weeks fetus. Follow-up with OB as outpatient. (5) Abscess of left axilla Is this a current diagnosis for this admission?: Yes Plan: Status post I&D by surgery. Wound culture growing gram-positive cocci in clusters. Day 2 IV clindamycin. Continue IV antibiotics. Follow-up cultures. Continue wound care. - Plan Summary Summary: Patient will be admitted to the medical floor where she received routine supportive and symptomatic cares. She will receive IV fluids utilizing lactated Ringer's solution at 167 mL/h. She will receive Dilaudid 0.5 to 4 mg IV every 2 hours as needed for pain utilizing a sliding scale for dosing. She will receive IV Benadryl 50 mg every 4 hours as needed for itching. She will receive Zofran 4 mg IV every 4 hours as needed for nausea or vomiting. Dr. Cornelius will be consulted per his request and he will be managing all pain related problems throughout the patient's hospital course. CBCs, metabolic profiles and additional laboratory and/or radiographic evaluations will be obtained as needed. Patient will receive a regular diet. - Time Time Spent with patient: 15-24 minutes Medications reviewed and adjusted accordingly: Yes Anticipated Discharge Disposition: Home, Self Care Anticipated Discharge Timeframe: within 72 hours
[2020-02-16] MEDS: PRENATAL VITAMIN W DHA CAPSULE PO SCH (12:55)
[2020-02-16] MEDS: FOLIC ACID 1 MG TABLET PO SCH (12:55)
[2020-02-16] MEDS: DOCUSATE SODIUM 100 MG CAPSULE PO SCH ×2 (12:55→18:50)
[2020-02-16] MEDS: NORMAL SALINE 10 ML SDV (SCHEDULED) IV SCH ×2 (14:56→21:43)
[2020-02-16] MEDS: HEPARIN SOD (PORCINE) 5,000 UNIT/ML 1 ML VIAL SUBCUT SCH ×3 (15:15→22:42)
[2020-02-16] MEDS: NORMAL SALINE 1000 ML 1,000 ML IV PRN (18:49)
[2020-02-17] MEDS: HYDROMORPHONE HCL INJ/PF 2 MG/ML AMPULE IV PRN ×10 (00:22→23:20)
[2020-02-17] MEDS: NORMAL SALINE 1000 ML 1,000 ML IV PRN ×3 (02:45→19:02)
[2020-02-17] MEDS: PROMETHAZINE HCL INJ 25 MG/1 ML VIAL IV PRN ×3 (05:39→19:09)
[2020-02-17] MEDS: DIPHENHYDRAMINE HCL 50 MG/ML VIAL IV PRN ×3 (05:39→19:09)
[2020-02-17] MEDS: HEPARIN SOD (PORCINE) 5,000 UNIT/ML 1 ML VIAL SUBCUT SCH ×3 (05:41→21:14)
[2020-02-17] MEDS: CLINDAMYCIN 300 MG/D5W RTU 300 MG/50 ML RTUPB IV SCH (06:12)
[2020-02-17] MEDS ORDERED: VANCOMYCIN HCL 0 MG in DEXTROSE 5%-WATER 250 ML IV NR (07:30)
--- NOTE | 2020-02-17 08:38 | PDOC PROGRESS REPORT ---
Subjective Progress Note for:: 02/17/20 Subjective:: No acute events overnight, seems a little bit more comfortable this morning. Reason For Visit: ACUTE SICKLE CELL CRISIS Physical Exam Vital Signs: Temp Pulse Resp BP Pulse Ox 97.7 F 68 14 112/59 L 100 02/16/20 16:17 02/16/20 16:17 02/16/20 16:17 02/16/20 16:17 02/16/20 16:17 Intake & Output 02/16/20 02/17/20 02/18/20 06:59 06:59 06:59 Intake Total 4916 2300 Output Total 5110 5950 Balance -194 -3650 Weight 57.4 kg 59.6 kg General appearance: PRESENT: no acute distress, well-developed, well-nourished Head exam: PRESENT: atraumatic, normocephalic Eye exam: PRESENT: conjunctiva pink, EOMI, PERRLA. ABSENT: scleral icterus Ear exam: PRESENT: normal external ear exam Mouth exam: PRESENT: moist, tongue midline Neck exam: ABSENT: carotid bruit, JVD, lymphadenopathy, thyromegaly Respiratory exam: PRESENT: clear to auscultation william. ABSENT: rales, rhonchi, wheezes Cardiovascular exam: PRESENT: RRR. ABSENT: diastolic murmur, rubs, systolic murmur Pulses: PRESENT: normal dorsalis pedis pul Vascular exam: PRESENT: normal capillary refill GI/Abdominal exam: PRESENT: normal bowel sounds, soft. ABSENT: distended, guarding, mass, organolmegaly, rebound, tenderness Rectal exam: PRESENT: deferred Extremities exam: PRESENT: full ROM. ABSENT: calf tenderness, clubbing, pedal edema Neurological exam: PRESENT: alert, awake, oriented to person, oriented to place, oriented to time, oriented to situation, CN II-XII grossly intact. ABSENT: motor sensory deficit Psychiatric exam: PRESENT: appropriate affect, normal mood. ABSENT: homicidal ideation, suicidal ideation Skin exam: PRESENT: dry, intact, warm. ABSENT: cyanosis, rash Results Laboratory Results: 02/16/20 08:10 02/16/20 08:10 02/16/20 02/16/20 02/16/20 08:10 08:10 12:00 WBC 12.3 H RBC 2.26 L Hgb 7.0 L Hct 19.3 L MCV 85 MCH 30.8 MCHC 36.1 H RDW 16.3 H Plt Count 282 Seg Neutrophils % 76.9 Sodium 133.0 L Potassium 3.1 L Chloride 104 Carbon Dioxide 24 Anion Gap 5 BUN < 2 L Creatinine 0.40 L Est GFR ( Amer) > 60 Glucose 74 L Calcium 7.9 L Blood Type O POSITIVE Antibody Screen NEGATIVE 02/15/20 15:43 Axilla - Left Gram Stain - Final 02/15/20 15:43 Axilla - Left Wound Culture - Final Mrsa (Meth Resis Staph Aureus) No Anaerobic Organisms Impressions: Obstetrics Ultrasound 02/13/20 00:00 IMPRESSION: LIVING INTRAUTERINE . EGA 13 weeks 6 days. Trimester of : Second trimester - 13 weeks 1 day to 27 weeks 6 days. Chest X-Ray 02/15/20 00:00 IMPRESSION: IMAGE(S) OBTAINED DURING PROCEDURE. Guidance Fluoroscopy 02/15/20 00:00 IMPRESSION: IMAGE(S) OBTAINED DURING PROCEDURE. PICC Line Insertion 02/15/20 00:00 IMPRESSION: Unsuccessful right upper extremity PICC placement. Limited right arm venogram demonstrated multiple diminutive draining veins with no direct central access. Patient has had history of 19 prior PICCs at this institution. Future PICCs are likely no longer a viable option. 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 Transfuse if patient gets in the low 7 range. - Time Time Spent with patient: 35 or more minutes
[2020-02-17] MEDS ORDERED: POTASSIUM CHLORIDE 10 MEQ TABLET.ER PO ONE (09:45)
[2020-02-17] MEDS: DOCUSATE SODIUM 100 MG CAPSULE PO SCH ×2 (09:56→19:08)
[2020-02-17] MEDS: FOLIC ACID 1 MG TABLET PO SCH (09:56)
[2020-02-17] MEDS: PRENATAL VITAMIN W DHA CAPSULE PO SCH (09:56)
[2020-02-17] MEDS: NORMAL SALINE 10 ML SDV (SCHEDULED) IV SCH ×2 (09:57→21:18)
[2020-02-17] MEDS: VANCOMYCIN HCL 1,000 MG in DEXTROSE 5%-WATER 250 ML IV SCH ×2 (10:20→21:21)
--- NOTE | 2020-02-17 15:39 | PDOC PROGRESS REPORT ---
Subjective Progress Note for:: 02/17/20 Subjective:: PRANAV JOINER is a 29 year old female past medical history of sickle cell disease who is also sent to ED due to sickle cell crisis, initially treated and oncology clinic by Dr. Cornelius but unfortunately patient pain was uncontrollable sent to ED. 02/13/2020. Saw patient this afternoon comfortably sitting in no apparent distress, receiving her PRBC transfusion ordered by Dr. Cornelius stating that she still having pain but is tolerable, denies any fever, chills, nausea, vomiting. 02/14/2020. No acute events overnight. Patient sitting in her recliner no apparent distress, still complaining of generalized pain otherwise denies any fever, chills, nausea, vomiting. 02/15/2020. No acute events overnight. Still having significant pain, hemoglobin has dropped a little, denies any fever, chills, nausea, vomiting, diarrhea, constipation or any urinary symptoms. Patient found to have a left axillary abscess and surgery is on board for possible I&D today. 02/16/2020. Saw patient this afternoon resting in bed stating he still having significant pain, is not getting much sleep, awake and alert and cooperative with physical examination. Denies having any fever. Patient is p.o. tolerant. Patient scheduled to receive another unit of PRBC today. 02/17/2020. No acute events overnight. Patient still complaining of significant generalized musculoskeletal pain, also complaining of left axillary pain which is status post I&D, denies any fever, chills, nausea, vomiting. Alert and oriented, having normal bowel and bladder movements. Reason For Visit: ACUTE SICKLE CELL CRISIS Physical Exam Vital Signs: Temp Pulse Resp BP Pulse Ox 98.5 F 68 20 120/64 100 02/17/20 08:00 02/17/20 08:00 02/17/20 08:00 02/17/20 08:00 02/17/20 08:00 Intake & Output 02/16/20 02/17/20 02/18/20 06:59 06:59 06:59 Intake Total 4916 2300 1000 Output Total 5110 5950 400 Balance -194 -3650 600 Weight 57.4 kg 59.6 kg Results Laboratory Results: 02/16/20 08:10 02/16/20 08:10 02/15/20 15:43 Axilla - Left Gram Stain - Final 02/15/20 15:43 Axilla - Left Wound Culture - Final Mrsa (Meth Resis Staph Aureus) No Anaerobic Organisms Impressions: Obstetrics Ultrasound 02/13/20 00:00 IMPRESSION: LIVING INTRAUTERINE . EGA 13 weeks 6 days. Trimester of : Second trimester - 13 weeks 1 day to 27 weeks 6 days. Chest X-Ray 02/15/20 00:00 IMPRESSION: IMAGE(S) OBTAINED DURING PROCEDURE. Guidance Fluoroscopy 02/15/20 00:00 IMPRESSION: IMAGE(S) OBTAINED DURING PROCEDURE. PICC Line Insertion 02/15/20 00:00 IMPRESSION: Unsuccessful right upper extremity PICC placement. Limited right arm venogram demonstrated multiple diminutive draining veins with no direct central access. Patient has had history of 19 prior PICCs at this institution. Future PICCs are likely no longer a viable option. Assessment and Plan - Diagnosis (1) Sickle cell pain crisis Is this a current diagnosis for this admission?: Yes Plan: Oncology on board, managing IV opiates. Continue IV fluids. Monitor in and o ut, monitor pulse respiration, monitor vitals. Scheduled to receive PRBC today. Status post 1 PRBC transfusion on 02/15/2020. (2) Sickle cell anemia of mother during Is this a current diagnosis for this admission?: Yes Plan: As per above, oncology and OB on board. (3) Sickle cell anemia Qualifiers: Sickle-cell associated disorders: with unspecified crisis Qualified Code(s): D57.00 - Hb-SS disease with crisis, unspecified; D57.0 - Hb-SS disease with crisis Is this a current diagnosis for this admission?: Yes Plan: Status post 1 PRBC transfusion 02/14/2020. H&H stable. Monitor H&H. Supportive transfusions. (4) 13 weeks gestation of Is this a current diagnosis for this admission?: Yes Plan: OB team on board, abdominal ultrasound shows a intrauterine viable less than 14 weeks fetus. Follow-up with OB as outpatient. (5) Abscess of left axilla Is this a current diagnosis for this admission?: Yes Plan: Status post I&D by surgery. Wound culture growing MRSA resistant to clindamycin. Sensitive to Bactrim and vancomycin. Day 1 IV vancomycin. Received 2 days of IV clindamycin. Continue IV antibiotics. Follow-up cultures. Continue wound care. (6) Hypokalemia Is this a current diagnosis for this admission?: Yes Plan: No acute EKG changes. Daily replacement. Potassium level tomorrow. - Plan Summary Summary: Patient will be admitted to the medical floor where she received routine supportive and symptomatic cares. She will receive IV fluids utilizing lactated Ringer's solution at 167 mL/h. She will receive Dilaudid 0.5 to 4 mg IV every 2 hours as needed for pain utilizing a sliding scale for dosing. She will receive IV Benadryl 50 mg every 4 hours as needed for itching. She will receive Zofran 4 mg IV every 4 hours as needed for nausea or vomiting. Dr. Cornelius will be consulted per his request and he will be managing all pain related problems throughout the patient's hospital course. CBCs, metabolic profiles and additional laboratory and/or radiographic evaluations will be obtained as needed. Patient will receive a regular diet. - Time Time Spent with patient: 25-34 minutes Medications reviewed and adjusted accordingly: Yes Anticipated Discharge Disposition: Home, Self Care Anticipated Discharge Timeframe: within 72 hours
[2020-02-18] MEDS: HYDROMORPHONE HCL INJ/PF 2 MG/ML AMPULE IV PRN ×11 (01:54→23:54)
[2020-02-18] MEDS: PROMETHAZINE HCL INJ 25 MG/1 ML VIAL IV PRN ×4 (01:54→21:46)
[2020-02-18] MEDS: DIPHENHYDRAMINE HCL 50 MG/ML VIAL IV PRN ×4 (01:54→21:49)
[2020-02-18] MEDS: NORMAL SALINE 1000 ML 1,000 ML IV PRN ×3 (02:09→19:40)
[2020-02-18 04:42] LABS: ABSOLUTE BASOPHILS # (AUTO) 0.1 10^3/uL (0.0-0.2); ABSOLUTE EOSINOPHILS # (AUTO) 0.3 10^3/uL (0.0-0.6); ABSOLUTE LYMPHOCYTES (AUTO) 2.4 10^3/uL (0.5-4.7); ABSOLUTE MONOCYTES (AUTO) 0.8 10^3/uL (0.1-1.4); ABSOLUTE NEUT (AUTO) 6.6 10^3/uL (1.7-8.2); BASOPHILS % (AUTO) 0.6 % (0-2); EOSINOPHILS % (AUTO) 3.1 % (0-6); HEMATOCRIT 22.7 % (36.0-47.0); HEMOGLOBIN 8.3 g/dL (12.0-15.5); MEAN CORPUSCULAR HEMOGLOBIN 31.6 pg (27.0-33.4); MEAN CORPUSCULAR HGB CONC 36.6 g/dL (32.0-36.0); MEAN CORPUSCULAR VOLUME 86 fl (80-97); MONOCYTES % (AUTO) 7.6 % (3-13); PLATELET COUNT 264 10^3/uL (150-450); RED BLOOD COUNT 2.64 10^6/uL (3.72-5.28); RED CELL DISTRIBUTION WIDTH 16.2 % (11.5-14.0); SEGMENTED NEUTROPHILS % (AUTO) 64.7 % (42-78); TOTAL CELLS COUNTED % (AUTO) 100 %; WHITE BLOOD COUNT 10.2 10^3/uL (4.0-10.5)
[2020-02-18 04:54] LABS: ANION GAP 6 (5-19); BLOOD UREA NITROGEN 2 mg/dL (7-20); CALCIUM 8.4 mg/dL (8.4-10.2); CARBON DIOXIDE 23 mmol/L (22-30); CHLORIDE 106 mmol/L (98-107); GLUCOSE 88 mg/dL (75-110); POTASSIUM 3.3 mmol/L (3.6-5.0)
[2020-02-18] MEDS: HEPARIN SOD (PORCINE) 5,000 UNIT/ML 1 ML VIAL SUBCUT SCH ×3 (06:13→21:33)
[2020-02-18] MEDS ORDERED: POTASSIUM CHLORIDE 10 MEQ TABLET.ER PO ONE (07:30)
--- NOTE | 2020-02-18 08:13 | PDOC PROGRESS REPORT ---
Subjective Progress Note for:: 02/18/20 Subjective:: No acute events overnight, hemoglobin is 8.3 today. She will have recheck in 2 days. If hemoglobin drops below 7.5 would give transfusion. Reason For Visit: ACUTE SICKLE CELL CRISIS Physical Exam Vital Signs: Temp Pulse Resp BP Pulse Ox 97.9 F 72 16 121/68 100 02/18/20 04:11 02/18/20 04:11 02/17/20 23:23 02/18/20 04:11 02/18/20 04:11 Intake & Output 02/17/20 02/18/20 02/19/20 06:59 06:59 06:59 Intake Total 2300 6094 Output Total 5950 5400 Balance -3650 694 Weight 59.6 kg 59.8 kg General appearance: PRESENT: no acute distress, well-developed, well-nourished Head exam: PRESENT: atraumatic, normocephalic Eye exam: PRESENT: conjunctiva pink, EOMI, PERRLA. ABSENT: scleral icterus Ear exam: PRESENT: normal external ear exam Mouth exam: PRESENT: moist, tongue midline Neck exam: ABSENT: carotid bruit, JVD, lymphadenopathy, thyromegaly Respiratory exam: PRESENT: clear to auscultation william. ABSENT: rales, rhonchi, wheezes Cardiovascular exam: PRESENT: RRR. ABSENT: diastolic murmur, rubs, systolic murmur Pulses: PRESENT: normal dorsalis pedis pul Vascular exam: PRESENT: normal capillary refill GI/Abdominal exam: PRESENT: normal bowel sounds, soft. ABSENT: distended, guarding, mass, organolmegaly, rebound, tenderness Rectal exam: PRESENT: deferred Extremities exam: PRESENT: full ROM. ABSENT: calf tenderness, clubbing, pedal edema Neurological exam: PRESENT: alert, awake, oriented to person, oriented to place, oriented to time, oriented to situation, CN II-XII grossly intact. ABSENT: motor sensory deficit Psychiatric exam: PRESENT: appropriate affect, normal mood. ABSENT: homicidal ideation, suicidal ideation Skin exam: PRESENT: dry, intact, warm. ABSENT: cyanosis, rash Results Laboratory Results: 02/18/20 04:15 02/18/20 04:15 02/18/20 02/18/20 04:15 04:15 WBC 10.2 RBC 2.64 L Hgb 8.3 L Hct 22.7 L MCV 86 MCH 31.6 MCHC 36.6 H RDW 16.2 H Plt Count 264 Seg Neutrophils % 64.7 Sodium 135.2 L Potassium 3.3 L Chloride 106 Carbon Dioxide 23 Anion Gap 6 BUN 2 L Creatinine 0.40 L Est GFR ( Amer) > 60 Glucose 88 Calcium 8.4 Magnesium 1.6 02/15/20 15:43 Axilla - Left Gram Stain - Final 02/15/20 15:43 Axilla - Left Wound Culture - Final Mrsa (Meth Resis Staph Aureus) No Anaerobic Organisms Impressions: Obstetrics Ultrasound 02/13/20 00:00 IMPRESSION: LIVING INTRAUTERINE . EGA 13 weeks 6 days. Trimester of : Second trimester - 13 weeks 1 day to 27 weeks 6 days. Chest X-Ray 02/15/20 00:00 IMPRESSION: IMAGE(S) OBTAINED DURING PROCEDURE. Guidance Fluoroscopy 02/15/20 00:00 IMPRESSION: IMAGE(S) OBTAINED DURING PROCEDURE. PICC Line Insertion 02/15/20 00:00 IMPRESSION: Unsuccessful right upper extremity PICC placement. Limited right arm venogram demonstrated multiple diminutive draining veins with no direct central access. Patient has had history of 19 prior PICCs at this institution. Future PICCs are likely no longer a viable option. Assessment & Plan - Diagnosis (1) Sickle cell pain crisis Is this a current diagnosis for this admission?: Yes Plan: Continued, she will need another 3 to 5 days inpatient. Discussed with patient that I will be out of office for the next few days. Dr. Jung will follow, pain medication may be able to be weaned by Saturday or Saturday. Continue with supportive measures until then. 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 - Time Time Spent with patient: 35 or more minutes
[2020-02-18] MEDS: VANCOMYCIN HCL 1,000 MG in DEXTROSE 5%-WATER 250 ML IV SCH ×2 (10:37→21:34)
[2020-02-18] MEDS: PRENATAL VITAMIN W DHA CAPSULE PO SCH (10:38)
[2020-02-18] MEDS: FOLIC ACID 1 MG TABLET PO SCH (10:38)
[2020-02-18] MEDS: DOCUSATE SODIUM 100 MG CAPSULE PO SCH ×2 (10:38→17:16)
[2020-02-18] MEDS: NORMAL SALINE 10 ML SDV (SCHEDULED) IV SCH ×2 (10:38→21:33)
--- NOTE | 2020-02-18 17:47 | PDOC PROGRESS REPORT ---
Subjective Progress Note for:: 02/18/20 Subjective:: PRANAV JOINER is a 29 year old female past medical history of sickle cell disease who is also sent to ED due to sickle cell crisis, initially treated and oncology clinic by Dr. Cornelius but unfortunately patient pain was uncontrollable sent to ED. 02/13/2020. Saw patient this afternoon comfortably sitting in no apparent distress, receiving her PRBC transfusion ordered by Dr. Cornelius stating that she still having pain but is tolerable, denies any fever, chills, nausea, vomiting. 02/14/2020. No acute events overnight. Patient sitting in her recliner no apparent distress, still complaining of generalized pain otherwise denies any fever, chills, nausea, vomiting. 02/15/2020. No acute events overnight. Still having significant pain, hemoglobin has dropped a little, denies any fever, chills, nausea, vomiting, diarrhea, constipation or any urinary symptoms. Patient found to have a left axillary abscess and surgery is on board for possible I&D today. 02/16/2020. Saw patient this afternoon resting in bed stating he still having significant pain, is not getting much sleep, awake and alert and cooperative with physical examination. Denies having any fever. Patient is p.o. tolerant. Patient scheduled to receive another unit of PRBC today. 02/17/2020. No acute events overnight. Patient still complaining of significant generalized musculoskeletal pain, also complaining of left axillary pain which is status post I&D, denies any fever, chills, nausea, vomiting. Alert and oriented, having normal bowel and bladder movements. 02/18/2020. No acute events overnight. Still complaining of generalized musculoskeletal pain but improving. Reason For Visit: ACUTE SICKLE CELL CRISIS Physical Exam Vital Signs: Temp Pulse Resp BP Pulse Ox 98.0 F 83 16 126/75 H 100 02/18/20 15:26 02/18/20 15:26 02/18/20 15:26 02/18/20 15:26 02/18/20 15:26 Intake & Output 02/17/20 02/18/20 02/19/20 06:59 06:59 06:59 Intake Total 2300 6094 1850 Output Total 5950 5400 Balance -3650 694 1850 Weight 59.6 kg 59.8 kg General appearance: PRESENT: no acute distress, well-developed, well-nourished Head exam: PRESENT: atraumatic, normocephalic Cardiovascular exam: PRESENT: RRR. ABSENT: diastolic murmur, rubs, systolic murmur GI/Abdominal exam: PRESENT: normal bowel sounds, soft. ABSENT: distended, guarding, mass, organolmegaly, rebound, tenderness Neurological exam: PRESENT: alert, awake, oriented to person, oriented to place, oriented to time, oriented to situation, CN II-XII grossly intact. ABSENT: motor sensory deficit Results Laboratory Results: 02/18/20 04:15 02/18/20 04:15 02/18/20 02/18/20 04:15 04:15 WBC 10.2 RBC 2.64 L Hgb 8.3 L Hct 22.7 L MCV 86 MCH 31.6 MCHC 36.6 H RDW 16.2 H Plt Count 264 Seg Neutrophils % 64.7 Sodium 135.2 L Potassium 3.3 L Chloride 106 Carbon Dioxide 23 Anion Gap 6 BUN 2 L Creatinine 0.40 L Est GFR ( Amer) > 60 Glucose 88 Calcium 8.4 Magnesium 1.6 Impressions: Obstetrics Ultrasound 02/13/20 00:00 IMPRESSION: LIVING INTRAUTERINE . EGA 13 weeks 6 days. Trimester of : Second trimester - 13 weeks 1 day to 27 weeks 6 days. Chest X-Ray 02/15/20 00:00 IMPRESSION: IMAGE(S) OBTAINED DURING PROCEDURE. Guidance Fluoroscopy 02/15/20 00:00 IMPRESSION: IMAGE(S) OBTAINED DURING PROCEDURE. PICC Line Insertion 02/15/20 00:00 IMPRESSION: Unsuccessful right upper extremity PICC placement. Limited right arm venogram demonstrated multiple diminutive draining veins with no direct central access. Patient has had history of 19 prior PICCs at this institution. Future PICCs are likely no longer a viable option. Assessment and Plan - Diagnosis (1) Sickle cell pain crisis Is this a current diagnosis for this admission?: Yes Plan: Oncology on board, managing IV opiates. Continue IV fluids. Monitor in and out, monitor pulse respiration, monitor vitals. Scheduled to receive PRBC today. Status post 1 PRBC transfusion on 02/15/2020. (2) Sickle cell anemia of mother during Is this a current diagnosis for this admission?: Yes Plan: As per above, oncology and OB on board. (3) Sickle cell anemia Qualifiers: Sickle-cell associated disorders: with unspecified crisis Qualified Code(s): D57.00 - Hb-SS disease with crisis, unspecified; D57.0 - Hb-SS disease with crisis Is this a current diagnosis for this admission?: Yes Plan: Status post 1 PRBC transfusion 02/14/2020. H&H stable. Monitor H&H. Supportive transfusions. (4) 13 weeks gestation of Is this a current diagnosis for this admission?: Yes Plan: OB team on board, abdominal ultrasound shows a intrauterine viable less than 14 weeks fetus. Follow-up with OB as outpatient. (5) Abscess of left axilla Is this a current diagnosis for this admission?: Yes Plan: Status post I&D by surgery. Wound culture growing MRSA resistant to clindamycin. Sensitive to Bactrim and vancomycin. Day 2 IV vancomycin. Received 2 days of IV clindamycin. Continue IV antibiotics. Follow-up cultures. Continue wound care. (6) Hypokalemia Is this a current diagnosis for this admission?: Yes Plan: No acute EKG changes. Daily replacement. Potassium level tomorrow. - Plan Summary Summary: Patient will be admitted to the medical floor where she received routine supportive and symptomatic cares. She will receive IV fluids utilizing lactated Ringer's solution at 167 mL/h. She will receive Dilaudid 0.5 to 4 mg IV every 2 hours as needed for pain utilizing a sliding scale for dosing. She will receive IV Benadryl 50 mg every 4 hours as needed for itching. She will receive Zofran 4 mg IV every 4 hours as needed for nausea or vomiting. Dr. Cornelius will be consulted per his request and he will be managing all pain related problems throughout the patient's hospital course. CBCs, metabolic profiles and additional laboratory and/or radiographic evaluations will be obtained as needed. Patient will receive a regular diet. - Time Time Spent with patient: 15-24 minutes Medications reviewed and adjusted accordingly: Yes Anticipated Discharge Disposition: Home, Self Care Anticipated Discharge Timeframe: within 72 hours
[2020-02-18] MEDS: ONDANSETRON HCL INJ/PF 4 MG/2 ML SDV IV PRN (19:38)
[2020-02-18 22:42] LABS: VANCOMYCIN,TROUGH < 5.0 ug/mL (5.0-20.0)
[2020-02-19] MEDS: HYDROMORPHONE HCL INJ/PF 2 MG/ML AMPULE IV PRN ×10 (02:03→22:01)
[2020-02-19] MEDS: DIPHENHYDRAMINE HCL 50 MG/ML VIAL IV PRN ×3 (04:37→17:33)
[2020-02-19] MEDS: PROMETHAZINE HCL INJ 25 MG/1 ML VIAL IV PRN ×3 (04:37→17:33)
[2020-02-19] MEDS: NORMAL SALINE 1000 ML 1,000 ML IV PRN ×3 (04:39→21:59)
[2020-02-19 05:04] LABS: ABSOLUTE EOSINOPHILS # (AUTO) 0.4 10^3/uL (0.0-0.6); ABSOLUTE LYMPHOCYTES (AUTO) 2.8 10^3/uL (0.5-4.7); ABSOLUTE MONOCYTES (AUTO) 0.8 10^3/uL (0.1-1.4); ABSOLUTE NEUT (AUTO) 5.3 10^3/uL (1.7-8.2); BASOPHILS % (AUTO) 0.5 % (0-2); EOSINOPHILS % (AUTO) 3.9 % (0-6); HEMATOCRIT 22.2 % (36.0-47.0); LYMPHOCYTES % (AUTO) 29.9 % (13-45); MEAN CORPUSCULAR HEMOGLOBIN 30.9 pg (27.0-33.4); MEAN CORPUSCULAR HGB CONC 35.8 g/dL (32.0-36.0); MEAN CORPUSCULAR VOLUME 87 fl (80-97); PLATELET COUNT 260 10^3/uL (150-450); RED BLOOD COUNT 2.57 10^6/uL (3.72-5.28); RED CELL DISTRIBUTION WIDTH 15.8 % (11.5-14.0); SEGMENTED NEUTROPHILS % (AUTO) 56.7 % (42-78); TOTAL CELLS COUNTED % (AUTO) 100 %; WHITE BLOOD COUNT 9.4 10^3/uL (4.0-10.5)
[2020-02-19 05:12] LABS: ANION GAP 7 (5-19); BLOOD UREA NITROGEN 3 mg/dL (7-20); CALCIUM 8.7 mg/dL (8.4-10.2); CARBON DIOXIDE 24 mmol/L (22-30); CHLORIDE 106 mmol/L (98-107); GLUCOSE 83 mg/dL (75-110); POTASSIUM 3.5 mmol/L (3.6-5.0)
[2020-02-19 05:31] LABS: HEMOGLOBIN 7.9 g/dL (12.0-15.5)
[2020-02-19] MEDS: HEPARIN SOD (PORCINE) 5,000 UNIT/ML 1 ML VIAL SUBCUT SCH ×3 (06:41→22:01)
--- NOTE | 2020-02-19 08:32 | PDOC PROGRESS REPORT ---
Subjective Progress Note for:: 02/19/20 Subjective:: Patient states that she has some good days and bad days. Overall, the pain is about the same, but current pain medications are adequate. She is trying to move around as much as possible. ROS: No dyspnea, No constipation, No rash. Reason For Visit: ACUTE SICKLE CELL CRISIS Physical Exam Vital Signs: Temp Pulse Resp BP Pulse Ox 97.6 F 88 16 122/84 100 02/19/20 08:00 02/19/20 08:00 02/19/20 08:00 02/19/20 08:00 02/19/20 08:00 Intake & Output 02/18/20 02/19/20 02/20/20 06:59 06:59 06:59 Intake Total 6094 6400 Output Total 5400 8300 Balance 694 -1900 Weight 59.8 kg General appearance: PRESENT: no acute distress Head exam: PRESENT: normocephalic Eye exam: PRESENT: EOMI Respiratory exam: PRESENT: unlabored Extremities exam: ABSENT: pedal edema Neurological exam: PRESENT: alert, awake, oriented to person, oriented to place, oriented to time, oriented to situation Psychiatric exam: PRESENT: appropriate affect Skin exam: PRESENT: normal color Results Laboratory Results: 02/19/20 04:30 02/19/20 04:30 02/18/20 02/19/20 02/19/20 21:30 04:30 04:30 WBC 9.4 RBC 2.57 L Hgb 7.9 L Hct 22.2 L MCV 87 MCH 30.9 MCHC 35.8 RDW 15.8 H Plt Count 260 Seg Neutrophils % 56.7 Sodium 137.2 Potassium 3.5 L Chloride 106 Carbon Dioxide 24 Anion Gap 7 BUN 3 L Creatinine 0.38 L 0.35 L Est GFR ( Amer) > 60 > 60 Glucose 83 Calcium 8.7 Magnesium 1.5 L Impressions: Obstetrics Ultrasound 02/13/20 00:00 IMPRESSION: LIVING INTRAUTERINE . EGA 13 weeks 6 days. Trimester of : Second trimester - 13 weeks 1 day to 27 weeks 6 days. Chest X-Ray 02/15/20 00:00 IMPRESSION: IMAGE(S) OBTAINED DURING PROCEDURE. Guidance Fluoroscopy 02/15/20 00:00 IMPRESSION: IMAGE(S) OBTAINED DURING PROCEDURE. PICC Line Insertion 02/15/20 00:00 IMPRESSION: Unsuccessful right upper extremity PICC placement. Limited right arm venogram demonstrated multiple diminutive draining veins with no direct central access. Patient has had history of 19 prior PICCs at this institution. Future PICCs are likely no longer a viable option. Assessment & Plan - Diagnosis (1) Homozygous sickle cell (SS) disease Is this a current diagnosis for this admission?: Yes Plan: Acute pain crisis with SSA. Continue pain medications without changes today. Continue to ambulate and push fluids. I have encouraged her to wear her O2. Consider starting to wean pain meds tomorrow. No need for daily labs as far as I am concerned. I would limit blood draws as much as possible. 2-3 times a week only. - Time Time Spent with patient: 15-24 minutes - Plan Summary Plan Summary: I will be available over the weekend, please call if needed.
[2020-02-19] MEDS: VANCOMYCIN HCL 750 MG in DEXTROSE 5%-WATER 250 ML IV SCH ×3 (10:02→22:01)
[2020-02-19] MEDS: POTASSIUM CHLORIDE 10 MEQ TABLET.ER PO SCH (10:04)
[2020-02-19] MEDS: PRENATAL VITAMIN W DHA CAPSULE PO SCH (10:05)
[2020-02-19] MEDS: FOLIC ACID 1 MG TABLET PO SCH (10:05)
[2020-02-19] MEDS: DOCUSATE SODIUM 100 MG CAPSULE PO SCH ×2 (10:06→17:34)
[2020-02-19] MEDS: MAGNESIUM OXIDE 400 MG TABLET PO SCH ×2 (10:06→17:34)
[2020-02-19] MEDS: NORMAL SALINE 10 ML SDV (SCHEDULED) IV SCH ×2 (10:08→22:02)
--- NOTE | 2020-02-19 17:14 | Progress Note ---
Provider Note Provider Note: [facility] ID Telephone Advice Brief Note Patient is a 29-year-old woman with sickle cell disease and 13-week who was admitted due to a pain crisis. She was complaining of pain all over her body. She was found with a left axillary abscess. She was evaluated by surgery and she had I&D done on 02/14. Per operative note, there was clear fluid, not purulent, and all loculations were broken. Her wound looks good per surgery note and they have signed off. Patient seems t be doing better infection kay. Culture from the abscess was positive for MRSA. She has been receiving vancomycin but trough was <5. ID consulted for recommendations. Allergies: ceftriaxone sodium [From Rocephin] Allergy (Verified 02/12/20 16:37) Cephalosporins Allergy (Verified 02/12/20 16:37) milk [Milk] Allergy (Verified 02/12/20 16:37) Shellfish * [Shellfish] Allergy (Verified 02/12/20 16:37) wheat [Wheat] Allergy (Verified 02/12/20 16:37) Medications: Folic Acid 4 mg PO DAILY 07/11/19 Oxycodone HCl 15 mg PO Q3HP PRN 07/11/19 Ondansetron HCl [Zofran 8 mg Tablet] 8 mg PO Q6HP PRN 02/13/20 Promethazine HCl [Phenergan 25 mg Supp.rect] 25 mg ID Q12HP PRN 02/13/20 Vital Signs: Temp Pulse Resp BP Pulse Ox 98.2 F 68 16 128/82 H 100 02/19/20 15:18 02/19/20 15:18 02/19/20 15:18 02/19/20 15:18 02/19/20 15:18 Intake & Output 02/18/20 02/19/20 02/20/20 06:59 06:59 06:59 Intake Total 6094 6400 2315 Output Total 9740 8300 2500 Balance 374 -6080 -185 Weight 59.8 kg Weight/Height Weight 59.8 kg Height 5 ft 3 in Laboratories: 02/19/20 04:30 02/19/20 04:30 MCV 87 fl (80-97) 02/19/20 04:30 MCH 30.9 pg (27.0-33.4) 02/19/20 04:30 MCHC 35.8 g/dL (32.0-36.0) 02/19/20 04:30 RDW 15.8 % (11.5-14.0) H 02/19/20 04:30 Seg Neutrophils % 56.7 % (42-78) 02/19/20 04:30 Retic Count (auto) 5.33 % (0.66-2.85) H 02/12/20 16:50 Chloride 106 mmol/L (98-107) 02/19/20 04:30 Carbon Dioxide 24 mmol/L (22-30) 02/19/20 04:30 Anion Gap 7 (5-19) 02/19/20 04:30 Est GFR ( Amer) > 60 (>60) 02/19/20 04:30 Glucose 83 mg/dL (75-110) 02/19/20 04:30 Calcium 8.7 mg/dL (8.4-10.2) 02/19/20 04:30 Magnesium 1.5 mg/dL (1.6-2.3) L 02/19/20 04:30 Total Bilirubin 1.7 mg/dL (0.2-1.3) H 02/15/20 06:00 AST 44 U/L (14-36) H 02/15/20 06:00 Alkaline Phosphatase 41 U/L (38-126) 02/15/20 06:00 Total Protein 6.3 g/dL (6.3-8.2) 02/15/20 06:00 Albumin 3.7 g/dL (3.5-5.0) 02/15/20 06:00 TSH 1.12 uIU/mL (0.47-4.68) 02/13/20 01:15 Free T3 pg/mL 3.42 pg/mL (2.77-5.27) 02/13/20 01:15 Blood Type O POSITIVE 02/16/20 12:00 Antibody Screen NEGATIVE 02/16/20 12:00 Microbiology: Wound culture 02/14 MRSA Radiology: Obstetrics Ultrasound 02/13/20 00:00 IMPRESSION: LIVING INTRAUTERINE . EGA 13 weeks 6 days. Trimester of : Second trimester - 13 weeks 1 day to 27 weeks 6 days. Chest X-Ray 02/15/20 00:00 IMPRESSION: IMAGE(S) OBTAINED DURING PROCEDURE. Guidance Fluoroscopy 02/15/20 00:00 IMPRESSION: IMAGE(S) OBTAINED DURING PROCEDURE. PICC Line Insertion 02/15/20 00:00 IMPRESSION: Unsuccessful right upper extremity PICC placement. Limited right arm venogram demonstrated multiple diminutive draining veins with no direct central access. Patient has had history of 19 prior PICCs at this [facility]. Future PICCs are likely no longer a viable option. 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 She has been on vancomycin but low trough. Tomorrow she will have new trough done. In the case of , vancomycin seems to be safer than other drugs as it is category B. The alternative would be linezolid, but it is category C and it should be used only when benefits outweigh the risks. In view of this, it would be best if she continues on vancomycin over the weekend to see if an adequate trough can be achieved. Per surgery note, the wound looked better, there has been good source control, therefore she might not need a long course. Will recommend a total of 7 days of therapy from the day of I&D. Linezolid may be considered if there is no clinical improvement due to subtherapeutic vancomycin trough which doesn't seem to be the case as the wound is already better. Please call if questions. Adry Vilchis MD [facility] [phone]
--- NOTE | 2020-02-19 19:59 | PDOC PROGRESS REPORT ---
Subjective Progress Note for:: 02/19/20 Subjective:: PRANAV JOINER is a 29 year old female past medical history of sickle cell disease who is also sent to ED due to sickle cell crisis, initially treated and oncology clinic by Dr. Cornelius but unfortunately patient pain was uncontrollable sent to ED. 02/13/2020. Saw patient this afternoon comfortably sitting in no apparent distress, receiving her PRBC transfusion ordered by Dr. Cornelius stating that she still having pain but is tolerable, denies any fever, chills, nausea, vomiting. 02/14/2020. No acute events overnight. Patient sitting in her recliner no apparent distress, still complaining of generalized pain otherwise denies any fever, chills, nausea, vomiting. 02/15/2020. No acute events overnight. Still having significant pain, hemoglobin has dropped a little, denies any fever, chills, nausea, vomiting, diarrhea, constipation or any urinary symptoms. Patient found to have a left axillary abscess and surgery is on board for possible I&D today. 02/16/2020. Saw patient this afternoon resting in bed stating he still having significant pain, is not getting much sleep, awake and alert and cooperative with physical examination. Denies having any fever. Patient is p.o. tolerant. Patient scheduled to receive another unit of PRBC today. 02/17/2020. No acute events overnight. Patient still complaining of significant generalized musculoskeletal pain, also complaining of left axillary pain which is status post I&D, denies any fever, chills, nausea, vomiting. Alert and oriented, having normal bowel and bladder movements. 02/18/2020. No acute events overnight. Still complaining of generalized musculoskeletal pain but improving. 02/19/2020. No acute events overnight. Reason For Visit: ACUTE SICKLE CELL CRISIS Physical Exam Vital Signs: Temp Pulse Resp BP Pulse Ox 98.2 F 68 16 128/82 H 100 02/19/20 15:18 02/19/20 15:18 02/19/20 15:18 02/19/20 15:18 02/19/20 15:18 Intake & Output 02/18/20 02/19/20 02/20/20 06:59 06:59 06:59 Intake Total 6031 6400 2315 Output Total 5400 8300 2500 Balance 694 -1900 -185 Weight 59.8 kg General appearance: PRESENT: no acute distress, well-developed, well-nourished Head exam: PRESENT: atraumatic, normocephalic Respiratory exam: PRESENT: clear to auscultation william. ABSENT: rales, rhonchi, wheezes Cardiovascular exam: PRESENT: RRR. ABSENT: diastolic murmur, rubs, systolic murmur GI/Abdominal exam: PRESENT: normal bowel sounds, soft. ABSENT: distended, guarding, mass, organolmegaly, rebound, tenderness Neurological exam: PRESENT: alert, awake, oriented to person, oriented to place, oriented to time, oriented to situation, CN II-XII grossly intact. ABSENT: motor sensory deficit Results Laboratory Results: 02/19/20 04:30 02/19/20 04:30 02/18/20 02/19/20 02/19/20 21:30 04:30 04:30 WBC 9.4 RBC 2.57 L Hgb 7.9 L Hct 22.2 L MCV 87 MCH 30.9 MCHC 35.8 RDW 15.8 H Plt Count 260 Seg Neutrophils % 56.7 Sodium 137.2 Potassium 3.5 L Chloride 106 Carbon Dioxide 24 Anion Gap 7 BUN 3 L Creatinine 0.38 L 0.35 L Est GFR ( Amer) > 60 > 60 Glucose 83 Calcium 8.7 Magnesium 1.5 L Impressions: Obstetrics Ultrasound 02/13/20 00:00 IMPRESSION: LIVING INTRAUTERINE . EGA 13 weeks 6 days. Trimester of : Second trimester - 13 weeks 1 day to 27 weeks 6 days. Chest X-Ray 02/15/20 00:00 IMPRESSION: IMAGE(S) OBTAINED DURING PROCEDURE. Guidance Fluoroscopy 02/15/20 00:00 IMPRESSION: IMAGE(S) OBTAINED DURING PROCEDURE. PICC Line Insertion 02/15/20 00:00 IMPRESSION: Unsuccessful right upper extremity PICC placement. Limited right arm venogram demonstrated multiple diminutive draining veins with no direct central access. Patient has had history of 19 prior PICCs at this institution. Future PICCs are likely no longer a viable option. Assessment and Plan - Diagnosis (1) Sickle cell pain crisis Is this a current diagnosis for this admission?: Yes Plan: Oncology on board, managing IV opiates. Continue IV fluids. Monitor in and out, monitor pulse respiration, monitor vitals. Scheduled to receive PRBC today. Status post 1 PRBC transfusion on 02/15/2020. (2) Sickle cell anemia of mother during Is this a current diagnosis for this admission?: Yes Plan: As per above, oncology and OB on board. (3) Sickle cell anemia Qualifiers: Sickle-cell associated disorders: with unspecified crisis Qualified Code(s): D57.00 - Hb-SS disease with crisis, unspecified; D57.0 - Hb-SS disease with crisis Is this a current diagnosis for this admission?: Yes Plan: Status post 1 PRBC transfusion 02/14/2020. H&H stable. Monitor H&H. Supportive transfusions. (4) 13 weeks gestation of Is this a current diagnosis for this admission?: Yes Plan: OB team on board, abdominal ultrasound shows a intrauterine viable less than 14 weeks fetus. Follow-up with OB as outpatient. (5) Abscess of left axilla Is this a current diagnosis for this admission?: Yes Plan: Status post I&D by surgery. Wound culture growing MRSA resistant to clindamycin. Sensitive to Bactrim and vancomycin. Day 3 IV vancomycin. Received 2 days of IV clindamycin. Continue IV antibiotics. Follow-up cultures. Continue wound care. (6) Hypokalemia Is this a current diagnosis for this admission?: Yes Plan: No acute EKG changes. Daily replacement. Potassium level tomorrow. - Plan Summary Summary: Patient will be admitted to the medical floor where she received routine supportive and symptomatic cares. She will receive IV fluids utilizing lactated Ringer's solution at 167 mL/h. She will receive Dilaudid 0.5 to 4 mg IV every 2 hours as needed for pain utilizing a sliding scale for dosing. She will receive IV Benadryl 50 mg every 4 hours as needed for itching. She will receive Zofran 4 mg IV every 4 hours as needed for nausea or vomiting. Dr. Cornelius will be consulted per his request and he will be managing all pain related problems throughout the patient's hospital course. CBCs, metabolic profiles and additional laboratory and/or radiographic evaluations will be obtained as needed. Patient will receive a regular diet. - Time Time Spent with patient: 15-24 minutes Medications reviewed and adjusted accordingly: Yes Anticipated Discharge Disposition: Home, Self Care Anticipated Discharge Timeframe: within 36 hours
[2020-02-20] MEDS: HYDROMORPHONE HCL INJ/PF 2 MG/ML AMPULE IV PRN ×11 (00:04→22:28)
[2020-02-20] MEDS: PROMETHAZINE HCL INJ 25 MG/1 ML VIAL IV PRN ×4 (00:05→20:27)
[2020-02-20] MEDS: DIPHENHYDRAMINE HCL 50 MG/ML VIAL IV PRN ×4 (00:05→20:27)
[2020-02-20] MEDS: HEPARIN SOD (PORCINE) 5,000 UNIT/ML 1 ML VIAL SUBCUT SCH ×3 (06:43→22:29)
[2020-02-20] MEDS: NORMAL SALINE 1000 ML 1,000 ML IV PRN ×2 (06:44→18:19)
[2020-02-20] MEDS: VANCOMYCIN HCL 750 MG in DEXTROSE 5%-WATER 250 ML IV SCH (06:44)
[2020-02-20 07:40] LABS: VANCOMYCIN,TROUGH 6.3 ug/mL (5.0-20.0)
[2020-02-20] MEDS: DOCUSATE SODIUM 100 MG CAPSULE PO SCH ×2 (09:30→18:18)
[2020-02-20] MEDS: POTASSIUM CHLORIDE 10 MEQ TABLET.ER PO SCH (09:30)
[2020-02-20] MEDS: MAGNESIUM OXIDE 400 MG TABLET PO SCH ×2 (09:30→18:18)
[2020-02-20] MEDS: PRENATAL VITAMIN W DHA CAPSULE PO SCH (09:30)
[2020-02-20] MEDS: NORMAL SALINE 10 ML SDV (SCHEDULED) IV SCH ×2 (09:31→22:30)
[2020-02-20] MEDS: FOLIC ACID 1 MG TABLET PO SCH (09:31)
[2020-02-20] MEDS: VANCOMYCIN HCL 1,250 MG in DEXTROSE 5%-WATER 250 ML IV SCH ×2 (15:28→22:30)
--- NOTE | 2020-02-20 16:08 | PDOC PROGRESS REPORT ---
Subjective Progress Note for:: 02/20/20 Subjective:: Patient states the pain is still severe, but she is trying to tolerate it as best she can. She has a stuffy nose due to the oxygen. She walked yesterday, but has not been up yet today. ROS: Some chest pain first thing in the morning, but not consistent. No constipation. Reason For Visit: ACUTE SICKLE CELL CRISIS Physical Exam Vital Signs: Temp Pulse Resp BP Pulse Ox 98.0 F 79 16 116/57 L 100 02/20/20 11:57 02/20/20 11:57 02/20/20 11:57 02/20/20 11:57 02/20/20 11:57 Intake & Output 02/19/20 02/20/20 02/21/20 06:59 06:59 06:59 Intake Total 6400 6009 610 Output Total 8300 4900 Balance -1900 1109 610 Weight 60.2 kg General appearance: PRESENT: no acute distress, well-developed, well-nourished Exam: Sitting up in bed eating lunch. Head exam: PRESENT: normocephalic Eye exam: PRESENT: EOMI Respiratory exam: PRESENT: unlabored Extremities exam: ABSENT: pedal edema Musculoskeletal exam: PRESENT: ambulatory Neurological exam: PRESENT: alert, awake Psychiatric exam: PRESENT: appropriate affect Skin exam: PRESENT: normal color Results Laboratory Results: 02/19/20 04:30 02/19/20 04:30 Impressions: Obstetrics Ultrasound 02/13/20 00:00 IMPRESSION: LIVING INTRAUTERINE . EGA 13 weeks 6 days. Trimester of : Second trimester - 13 weeks 1 day to 27 weeks 6 days. Chest X-Ray 02/15/20 00:00 IMPRESSION: IMAGE(S) OBTAINED DURING PROCEDURE. Guidance Fluoroscopy 02/15/20 00:00 IMPRESSION: IMAGE(S) OBTAINED DURING PROCEDURE. PICC Line Insertion 02/15/20 00:00 IMPRESSION: Unsuccessful right upper extremity PICC placement. Limited right arm venogram demonstrated multiple diminutive draining veins with no direct central access. Patient has had history of 19 prior PICCs at this institution. Future PICCs are likely no longer a viable option. Assessment & Plan - Diagnosis (1) Homozygous sickle cell (SS) disease Is this a current diagnosis for this admission?: Yes Plan: Continue pain medications without changes. IV fluids, O2. No indication for blood transfusion. I would decrease her blood draws to Mon-Wed-Fri only. She is asking for flonase spray to help her sinus congestion. I will order this. I have encouraged her to walk every day. - Time Time Spent with patient: 15-24 minutes
--- NOTE | 2020-02-20 17:54 | PDOC PROGRESS REPORT ---
Subjective Progress Note for:: 02/20/20 Subjective:: Patient is seen on morning rounds. She is found resting in bed, comfortably, on supplemental oxygen via nasal cannula 2 L/min. She reports generalized body aches; no specific joint or site tenderness. Does continue to have slight drainage from her I&D site of the left axilla. Tenderness is significantly improved. She denies fever, chills, chest pain, palpitations, dyspnea, abdominal pain, nausea vomiting and diarrhea. No questions or concerns at this time. No concerns per nursing Reason For Visit: ACUTE SICKLE CELL CRISIS Physical Exam Vital Signs: Temp Pulse Resp BP Pulse Ox 98.2 F 78 16 129/64 H 100 02/20/20 15:25 02/20/20 15:25 02/20/20 15:25 02/20/20 15:25 02/20/20 15:25 Intake & Output 02/19/20 02/20/20 02/21/20 06:59 06:59 06:59 Intake Total 6400 6009 610 Output Total 8300 4900 Balance -1900 1109 610 Weight 60.2 kg General appearance: PRESENT: no acute distress, well-developed, well-nourished Head exam: PRESENT: atraumatic, normocephalic Eye exam: PRESENT: conjunctiva pink, EOMI, PERRLA. ABSENT: scleral icterus Mouth exam: PRESENT: moist, tongue midline Respiratory exam: PRESENT: clear to auscultation william, symmetrical, unlabored, other - Supplemental oxygen. ABSENT: rales, rhonchi, wheezes Cardiovascular exam: PRESENT: RRR, +S1, +S2. ABSENT: diastolic murmur, rubs, systolic murmur Pulses: PRESENT: normal dorsalis pedis pul Vascular exam: PRESENT: normal capillary refill Extremities exam: PRESENT: full ROM. ABSENT: calf tenderness, clubbing, pedal edema Musculoskeletal exam: PRESENT: ambulatory Neurological exam: PRESENT: alert, awake, oriented to person, oriented to place, oriented to time, oriented to situation, CN II-XII grossly intact. ABSENT: motor sensory deficit Psychiatric exam: PRESENT: appropriate affect, normal mood. ABSENT: homicidal ideation, suicidal ideation Skin exam: PRESENT: dry, warm, other - Status post I&D left axilla; clean dry dressing in place. ABSENT: cyanosis, rash Results Laboratory Results: 02/19/20 04:30 02/19/20 04:30 Impressions: Obstetrics Ultrasound 02/13/20 00:00 IMPRESSION: LIVING INTRAUTERINE . EGA 13 weeks 6 days. Trimester of : Second trimester - 13 weeks 1 day to 27 weeks 6 days. Chest X-Ray 02/15/20 00:00 IMPRESSION: IMAGE(S) OBTAINED DURING PROCEDURE. Guidance Fluoroscopy 02/15/20 00:00 IMPRESSION: IMAGE(S) OBTAINED DURING PROCEDURE. PICC Line Insertion 02/15/20 00:00 IMPRESSION: Unsuccessful right upper extremity PICC placement. Limited right arm venogram demonstrated multiple diminutive draining veins with no direct central access. Patient has had history of 19 prior PICCs at this institution. Future PICCs are likely no longer a viable option. Assessment and Plan - Diagnosis (1) Sickle cell pain crisis Is this a current diagnosis for this admission?: Yes Plan: Oncology on board, managing IV opiates. Dose decreased today. Continue IV fluids. Monitor in and out, monitor pulse respiration, monitor vitals. (2) Sickle cell anemia of mother during Is this a current diagnosis for this admission?: Yes Plan: As per above, oncology and OB on board. (3) Sickle cell anemia Qualifiers: Sickle-cell associated disorders: with unspecified crisis Qualified Code(s): D57.00 - Hb-SS disease with crisis, unspecified; D57.0 - Hb-SS disease with crisis Is this a current diagnosis for this admission?: Yes Plan: Status post 2 PRBC transfusion 02/14/2020. H&H stable. Monitor H&H. Supportive transfusions. (4) 13 weeks gestation of Is this a current diagnosis for this admission?: Yes Plan: OB team on board, abdominal ultrasound shows a intrauterine viable less than 14 weeks fetus. Follow-up with OB as outpatient. (5) Abscess of left axilla Is this a current diagnosis for this admission?: Yes Plan: Status post I&D by surgery. Wound culture growing MRSA resistant to clindamycin. Sensitive to Bactrim and vancomycin. Day 5 IV vancomycin. Received 2 days of IV clindamycin. [place] diseases consulted; recommends 7 days of therapy. Preferably vancomycin as this is a category B Continue wound care. (6) Hypokalemia Is this a current diagnosis for this admission?: Yes Plan: No acute EKG changes. Daily replacement. Follow-up chemistries. - Time Time Spent with patient: 25-34 minutes Medications reviewed and adjusted accordingly: Yes Anticipated Discharge Disposition: Home, Self Care Anticipated Discharge Timeframe: within 72 hours
[2020-02-21] MEDS: HYDROMORPHONE HCL INJ/PF 2 MG/ML AMPULE IV PRN ×12 (00:29→22:28)
[2020-02-21] MEDS: DIPHENHYDRAMINE HCL 50 MG/ML VIAL IV PRN ×4 (02:33→20:27)
[2020-02-21] MEDS: PROMETHAZINE HCL INJ 25 MG/1 ML VIAL IV PRN ×4 (02:33→20:27)
[2020-02-21] MEDS: VANCOMYCIN HCL 1,250 MG in DEXTROSE 5%-WATER 250 ML IV SCH ×2 (06:27→13:47)
[2020-02-21] MEDS: HEPARIN SOD (PORCINE) 5,000 UNIT/ML 1 ML VIAL SUBCUT SCH ×3 (06:28→21:37)
[2020-02-21] MEDS: FLUTICASONE NASAL SPRAY 50 MCG/SPRY 120 SPRAY/16 GM NASL SCH (10:36)
[2020-02-21] MEDS: POTASSIUM CHLORIDE 10 MEQ TABLET.ER PO SCH (10:37)
[2020-02-21] MEDS: PRENATAL VITAMIN W DHA CAPSULE PO SCH (10:38)
[2020-02-21] MEDS: DOCUSATE SODIUM 100 MG CAPSULE PO SCH ×2 (10:38→18:30)
[2020-02-21] MEDS: FOLIC ACID 1 MG TABLET PO SCH (10:38)
[2020-02-21] MEDS: MAGNESIUM OXIDE 400 MG TABLET PO SCH ×2 (10:38→18:30)
[2020-02-21] MEDS: NORMAL SALINE 10 ML SDV (SCHEDULED) IV SCH ×2 (10:41→21:37)
[2020-02-21] MEDS: NORMAL SALINE 1000 ML 1,000 ML IV PRN ×2 (13:47→20:28)
--- NOTE | 2020-02-21 15:18 | PDOC PROGRESS REPORT ---
Subjective Progress Note for:: 02/21/20 Subjective:: Patient is seen on morning rounds. She is found resting in bed, comfortably, on room air. Appears comfortable, texting on phone; states she has continued, severe, body aches that are not improved. She tells me she has not ambulated since moving from the 2nd floor but intends to today. She denies fever, chills, chest pain, palpitations, dyspnea, abdominal pain, nausea vomiting and diarrhea. No questions or concerns at this time. No concerns per nursing Reason For Visit: ACUTE SICKLE CELL CRISIS Physical Exam Vital Signs: Temp Pulse Resp BP Pulse Ox 98.4 F 73 17 117/52 L 100 02/21/20 11:41 02/21/20 11:41 02/21/20 11:41 02/21/20 11:41 02/21/20 11:41 Intake & Output 02/20/20 02/21/20 02/22/20 06:59 06:59 06:59 Intake Total 6009 4742 368 Output Total 4900 6200 500 Balance 1109 -1458 -132 Weight 60.2 kg 65.5 kg General appearance: PRESENT: no acute distress, well-developed, well-nourished Head exam: PRESENT: atraumatic, normocephalic Eye exam: PRESENT: conjunctiva pink, EOMI, PERRLA. ABSENT: scleral icterus Mouth exam: PRESENT: moist, tongue midline Respiratory exam: PRESENT: clear to auscultation william, symmetrical, unlabored, other - room air. ABSENT: rales, rhonchi, wheezes Cardiovascular exam: PRESENT: RRR. ABSENT: diastolic murmur, rubs, systolic murmur Vascular exam: PRESENT: normal capillary refill Extremities exam: PRESENT: full ROM. ABSENT: calf tenderness, clubbing, pedal edema Musculoskeletal exam: PRESENT: ambulatory Neurological exam: PRESENT: alert, awake, oriented to person, oriented to place, oriented to time, oriented to situation, CN II-XII grossly intact. ABSENT: motor sensory deficit Psychiatric exam: PRESENT: appropriate affect, normal mood. ABSENT: homicidal ideation, suicidal ideation Skin exam: PRESENT: dry, intact, warm. ABSENT: cyanosis, rash Results Laboratory Results: 02/19/20 04:30 02/21/20 13:45 02/21/20 13:45 Creatinine 0.35 L Est GFR ( Amer) > 60 Impressions: Obstetrics Ultrasound 02/13/20 00:00 IMPRESSION: LIVING INTRAUTERINE . EGA 13 weeks 6 days. Trimester of : Second trimester - 13 weeks 1 day to 27 weeks 6 days. Chest X-Ray 02/15/20 00:00 IMPRESSION: IMAGE(S) OBTAINED DURING PROCEDURE. Guidance Fluoroscopy 02/15/20 00:00 IMPRESSION: IMAGE(S) OBTAINED DURING PROCEDURE. PICC Line Insertion 02/15/20 00:00 IMPRESSION: Unsuccessful right upper extremity PICC placement. Limited right arm venogram demonstrated multiple diminutive draining veins with no direct central access. Patient has had history of 19 prior PICCs at this [facility]. Future PICCs are likely no longer a viable option. Assessment and Plan - Diagnosis (1) Abscess of left axilla Is this a current diagnosis for this admission?: Yes Plan: Status post I&D by surgery. Wound culture growing MRSA resistant to clindamycin. Sensitive to Bactrim and vancomycin. Day 6 IV vancomycin; course complete tomorrow. Received 2 days of IV clindamycin. Infectious diseases consulted; recommends 7 days of therapy. Preferably vancomycin as this is a category B Continue wound care. (2) Sickle cell pain crisis Is this a current diagnosis for this admission?: Yes Plan: Oncology on board, managing IV opiates. Continue IV fluids. Monitor in and out, monitor pulse respiration, monitor vitals. (3) Sickle cell anemia of mother during Is this a current diagnosis for this admission?: Yes Plan: As per above, oncology and OB on board. (4) Sickle cell anemia Qualifiers: Sickle-cell associated disorders: with unspecified crisis Qualified Code( s): D57.00 - Hb-SS disease with crisis, unspecified; D57.0 - Hb-SS disease with crisis Is this a current diagnosis for this admission?: Yes Plan: Status post 2 PRBC transfusion 02/14/2020. H&H stable. Monitor H&H. Supportive transfusions. (5) 13 weeks gestation of Is this a current diagnosis for this admission?: Yes Plan: OB team on board, abdominal ultrasound shows a intrauterine viable less than 14 weeks fetus. Follow-up with OB as outpatient. (6) Hypokalemia Is this a current diagnosis for this admission?: Yes Plan: No acute EKG changes. Daily replacement. Follow-up chemistries. - Time Time Spent with patient: Less than 15 minutes Medications reviewed and adjusted accordingly: Yes Anticipated Discharge Disposition: Home, Self Care Anticipated Discharge Timeframe: pending hematology clearance
[2020-02-22] MEDS: HYDROMORPHONE HCL INJ/PF 2 MG/ML AMPULE IV PRN ×12 (00:31→23:30)
[2020-02-22] MEDS: PROMETHAZINE HCL INJ 25 MG/1 ML VIAL IV PRN ×4 (02:27→21:30)
[2020-02-22] MEDS: DIPHENHYDRAMINE HCL 50 MG/ML VIAL IV PRN ×4 (02:27→21:30)
[2020-02-22] MEDS: NORMAL SALINE 1000 ML 1,000 ML IV PRN ×2 (06:22→15:28)
[2020-02-22] MEDS: HEPARIN SOD (PORCINE) 5,000 UNIT/ML 1 ML VIAL SUBCUT SCH ×3 (06:44→21:40)
--- NOTE | 2020-02-22 08:20 | PDOC PROGRESS REPORT ---
Subjective Progress Note for:: 02/22/20 Subjective:: Patient states that she is still trying to walk in the halls. Her pain is about the same. She is having occasional chest pain going through to her back as well. No other new complaints. Difficult to tell if this is just sickle cell or something else, but she states she has had this pain before. ROS: No constipation, no rash. Reason For Visit: ACUTE SICKLE CELL CRISIS Physical Exam Vital Signs: Temp Pulse Resp BP Pulse Ox 97.7 F 72 16 102/53 L 100 02/22/20 03:47 02/22/20 07:00 02/22/20 03:47 02/22/20 03:47 02/22/20 03:47 Intake & Output 02/21/20 02/22/20 02/23/20 06:59 06:59 06:59 Intake Total 4742 7174 Output Total 6470 6400 Balance -1458 769 Weight 65.5 kg 65 kg General appearance: PRESENT: no acute distress, well-developed, well-nourished Head exam: PRESENT: normocephalic Eye exam: PRESENT: EOMI Respiratory exam: PRESENT: unlabored Extremities exam: ABSENT: pedal edema Neurological exam: PRESENT: alert, oriented to person Skin exam: PRESENT: normal color Results Laboratory Results: 02/19/20 04:30 02/21/20 13:45 02/21/20 13:45 Creatinine 0.35 L Est GFR ( Amer) > 60 Impressions: Obstetrics Ultrasound 02/13/20 00:00 IMPRESSION: LIVING INTRAUTERINE . EGA 13 weeks 6 days. Trimester of : Second trimester - 13 weeks 1 day to 27 weeks 6 days. Chest X-Ray 02/15/20 00:00 IMPRESSION: IMAGE(S) OBTAINED DURING PROCEDURE. Guidance Fluoroscopy 02/15/20 00:00 IMPRESSION: IMAGE(S) OBTAINED DURING PROCEDURE. PICC Line Insertion 02/15/20 00:00 IMPRESSION: Unsuccessful right upper extremity PICC placement. Limited right arm venogram demonstrated multiple diminutive draining veins with no direct central access. Patient has had history of 19 prior PICCs at this institution. Future PICCs are likely no longer a viable option. Assessment & Plan - Diagnosis (1) Homozygous sickle cell (SS) disease Is this a current diagnosis for this admission?: Yes Plan: Will start to wean narcotics tomorrow. Continue oxygen, fluids, and encouraged walking in [place]. - Time Time Spent with patient: 15-24 minutes - Plan Summary Plan Summary: She is still on vancomycin. Further antibiotics per hospitalists.
[2020-02-22] MEDS: DOCUSATE SODIUM 100 MG CAPSULE PO SCH ×2 (09:06→17:38)
[2020-02-22] MEDS: MAGNESIUM OXIDE 400 MG TABLET PO SCH ×2 (10:43→17:31)
[2020-02-22] MEDS: FOLIC ACID 1 MG TABLET PO SCH (10:43)
[2020-02-22] MEDS: POTASSIUM CHLORIDE 10 MEQ TABLET.ER PO SCH (10:43)
[2020-02-22] MEDS: VANCOMYCIN HCL 1,250 MG in DEXTROSE 5%-WATER 250 ML IV SCH ×2 (10:43→21:37)
[2020-02-22] MEDS: PRENATAL VITAMIN W DHA CAPSULE PO SCH (10:43)
[2020-02-22] MEDS: NORMAL SALINE 10 ML SDV (SCHEDULED) IV SCH ×2 (10:47→21:58)
[2020-02-22] MEDS: FLUTICASONE NASAL SPRAY 50 MCG/SPRY 120 SPRAY/16 GM NASL SCH (10:47)
[2020-02-22] MEDS: SODIUM CHLORIDE NASAL SPRAY 44 ML NASL SCH ×3 (13:17→21:50)
--- NOTE | 2020-02-22 13:17 | PDOC PROGRESS REPORT ---
Subjective Progress Note for:: 02/22/20 Subjective:: Patient is seen on morning rounds. She is found resting in bed, comfortably, on room air. Appears comfortable, arches her back to push her shoulders and feet against the bed (raising hips) to reposition in bed and pull the sheets/blanket out from under her. When commented that she appears to be moving more easily and without pain, patient states that her pain remains severe and unchanged; that she is only able to move due to having received pain medications recently. States she should be "going home sometime later this week," and asks about wound care following discharge. She denies fever, chills, chest pain, palpitations, dyspnea, abdominal pain, nausea vomiting and diarrhea. No questions or concerns at this time. No concerns per nursing Reason For Visit: ACUTE SICKLE CELL CRISIS Physical Exam Vital Signs: Temp Pulse Resp BP Pulse Ox 98.2 F 68 14 109/72 100 02/22/20 11:00 02/22/20 11:00 02/22/20 11:00 02/22/20 11:00 02/22/20 11:00 Intake & Output 02/21/20 02/22/20 02/23/20 06:59 06:59 06:59 Intake Total 4742 7174 280 Output Total 2345 5820 Balance -1458 769 280 Weight 65.5 kg 65 kg General appearance: PRESENT: no acute distress, well-developed, well-nourished Head exam: PRESENT: atraumatic, normocephalic Eye exam: PRESENT: conjunctiva pink, EOMI, PERRLA. ABSENT: scleral icterus Ear exam: PRESENT: normal external ear exam Mouth exam: PRESENT: moist, tongue midline Neck exam: ABSENT: carotid bruit, JVD, lymphadenopathy, thyromegaly Respiratory exam: PRESENT: clear to auscultation william. ABSENT: rales, rhonchi, wheezes Cardiovascular exam: PRESENT: RRR. ABSENT: diastolic murmur, rubs, systolic murmur Pulses: PRESENT: normal dorsalis pedis pul Vascular exam: PRESENT: normal capillary refill GI/Abdominal exam: PRESENT: normal bowel sounds, soft. ABSENT: distended, guarding, mass, organolmegaly, rebound, tenderness Rectal exam: PRESENT: deferred Extremities exam: PRESENT: full ROM. ABSENT: calf tenderness, clubbing, pedal edema Neurological exam: PRESENT: alert, awake, oriented to person, oriented to place, oriented to time, oriented to situation, CN II-XII grossly intact. ABSENT: motor sensory deficit Psychiatric exam: PRESENT: appropriate affect, normal mood. ABSENT: homicidal ideation, suicidal ideation Skin exam: PRESENT: dry, intact, warm. ABSENT: cyanosis, rash Results Laboratory Results: 02/19/20 04:30 02/21/20 13:45 02/21/20 13:45 Creatinine 0.35 L Est GFR ( Amer) > 60 Impressions: Obstetrics Ultrasound 02/13/20 00:00 IMPRESSION: LIVING INTRAUTERINE . EGA 13 weeks 6 days. Trimester of : Second trimester - 13 weeks 1 day to 27 weeks 6 days. Chest X-Ray 02/15/20 00:00 IMPRESSION: IMAGE(S) OBTAINED DURING PROCEDURE. Guidance Fluoroscopy 02/15/20 00:00 IMPRESSION: IMAGE(S) OBTAINED DURING PROCEDURE. PICC Line Insertion 02/15/20 00:00 IMPRESSION: Unsuccessful right upper extremity PICC placement. Limited right arm venogram demonstrated multiple diminutive draining veins with no direct central access. Patient has had history of 19 prior PICCs at this institution. Future PICCs are likely no longer a viable option. Assessment and Plan - Diagnosis (1) Abscess of left axilla Is this a current diagnosis for this admission?: Yes Plan: Status post I&D by surgery. Wound culture growing MRSA resistant to clindamycin. Sensitive to Bactrim and vancomycin. Day 7 IV vancomycin; course complete this evening Received 2 days of IV clindamycin. Infectious diseases consulted; recommends 7 days of therapy. Preferably vancomycin as this is a category B Continue wound care. (2) Sickle cell pain crisis Is this a current diagnosis for this admission?: Yes Plan: Oncology on board, managing IV opiates. Continue IV fluids. Monitor in and out, monitor pulse respiration, monitor vitals. (3) Sickle cell anemia of mother during Is this a current diagnosis for this admission?: Yes Plan: As per above, oncology and OB on board. (4) Sickle cell anemia Qualifiers: Sickle-cell associated disorders: with unspecified crisis Qualified Code(s): D57.00 - Hb-SS disease with crisis, unspecified; D57.0 - Hb-SS disease with crisis Is this a current diagnosis for this admission?: Yes Plan: Status post 2 PRBC transfusion 02/14/2020. H&H stable. Monitor H&H. Supportive transfusions. (5) 13 weeks gestation of Is this a current diagnosis for this admission?: Yes Plan: OB team on board, abdominal ultrasound shows a intrauterine viable less than 14 weeks fetus. Follow-up with OB as outpatient. (6) Hypokalemia Is this a current diagnosis for this admission?: Yes Plan: No acute EKG changes. Daily replacement. Follow-up chemistries. - Time Time Spent with patient: Less than 15 minutes Medications reviewed and adjusted accordingly: Yes Anticipated Discharge Disposition: Home, Self Care Anticipated Discharge Timeframe: pending Heme clearance
[2020-02-23] MEDS: HYDROMORPHONE HCL INJ/PF 2 MG/ML AMPULE IV PRN ×11 (01:30→23:00)
[2020-02-23] MEDS: NORMAL SALINE 1000 ML 1,000 ML IV PRN ×3 (01:33→22:30)
[2020-02-23] MEDS: DIPHENHYDRAMINE HCL 50 MG/ML VIAL IV PRN ×4 (03:30→23:00)
[2020-02-23] MEDS: PROMETHAZINE HCL INJ 25 MG/1 ML VIAL IV PRN ×3 (03:30→23:00)
[2020-02-23] MEDS: HEPARIN SOD (PORCINE) 5,000 UNIT/ML 1 ML VIAL SUBCUT SCH ×3 (05:33→21:09)
[2020-02-23] MEDS: SODIUM CHLORIDE NASAL SPRAY 44 ML NASL SCH ×4 (07:33→21:19)
[2020-02-23] MEDS: NORMAL SALINE 10 ML SDV (SCHEDULED) IV SCH ×2 (09:45→21:21)
[2020-02-23] MEDS: VANCOMYCIN HCL 1,250 MG in DEXTROSE 5%-WATER 250 ML IV SCH ×2 (09:45→22:30)
[2020-02-23] MEDS: MAGNESIUM OXIDE 400 MG TABLET PO SCH ×2 (09:46→18:55)
[2020-02-23] MEDS: FOLIC ACID 1 MG TABLET PO SCH (09:46)
[2020-02-23] MEDS: PRENATAL VITAMIN W DHA CAPSULE PO SCH (09:46)
[2020-02-23] MEDS: POTASSIUM CHLORIDE 10 MEQ TABLET.ER PO SCH (09:47)
[2020-02-23] MEDS: FLUTICASONE NASAL SPRAY 50 MCG/SPRY 120 SPRAY/16 GM NASL SCH (09:48)
--- NOTE | 2020-02-23 11:43 | PDOC PROGRESS REPORT ---
Subjective Progress Note for:: 02/23/20 Subjective:: Patient states that she is slowly improving. No new concerns today. Reason For Visit: ACUTE SICKLE CELL CRISIS Physical Exam Vital Signs: Temp Pulse Resp BP Pulse Ox 97.9 F 83 18 102/73 100 02/23/20 07:30 02/23/20 07:30 02/23/20 07:30 02/23/20 07:30 02/23/20 07:30 Intake & Output 02/22/20 02/23/20 02/24/20 06:59 06:59 06:59 Intake Total 7169 4180 1000 Output Total 6400 4100 Balance 502 03 0970 Weight 65 kg 65 kg General appearance: PRESENT: no acute distress Head exam: PRESENT: normocephalic Eye exam: PRESENT: EOMI Respiratory exam: PRESENT: unlabored Neurological exam: PRESENT: alert, awake Psychiatric exam: PRESENT: appropriate affect Skin exam: PRESENT: normal color Results Laboratory Results: 02/19/20 04:30 02/21/20 13:45 Impressions: Obstetrics Ultrasound 02/13/20 00:00 IMPRESSION: LIVING INTRAUTERINE . EGA 13 weeks 6 days. Trimester of : Second trimester - 13 weeks 1 day to 27 weeks 6 days. Chest X-Ray 02/15/20 00:00 IMPRESSION: IMAGE(S) OBTAINED DURING PROCEDURE. Guidance Fluoroscopy 02/15/20 00:00 IMPRESSION: IMAGE(S) OBTAINED DURING PROCEDURE. PICC Line Insertion 02/15/20 00:00 IMPRESSION: Unsuccessful right upper extremity PICC placement. Limited right arm venogram demonstrated multiple diminutive draining veins with no direct central access. Patient has had history of 19 prior PICCs at this institution. Future PICCs are likely no longer a viable option. Assessment & Plan - Diagnosis (1) Homozygous sickle cell (SS) disease Is this a current diagnosis for this admission?: Yes Plan: I will start to wean Dilaudid today. She will continue fluids and Oxygen. (2) 13 weeks gestation of Is this a current diagnosis for this admission?: Yes Plan: She is concerned about baby, and is anxious to have another ultrasound to see how progressing. No concerns otherwise. - Time Time Spent with patient: Less than 15 minutes
[2020-02-23] MEDS: DOCUSATE SODIUM 100 MG CAPSULE PO SCH ×2 (12:31→18:56)
--- NOTE | 2020-02-23 16:05 | PDOC PROGRESS REPORT ---
Subjective Progress Note for:: 02/23/20 Subjective:: Patient continues to complain of her typical sickle cell pain. Additionally, she reports pain/soreness at the abscess site in her left axilla Reason For Visit: ACUTE SICKLE CELL CRISIS Physical Exam Vital Signs: Temp Pulse Resp BP Pulse Ox 98.4 F 104 H 16 141/43 H 100 02/23/20 12:41 02/23/20 12:41 02/23/20 12:41 02/23/20 12:41 02/23/20 12:41 Intake & Output 02/22/20 02/23/20 02/24/20 06:59 06:59 06:59 Intake Total 7169 4180 1910 Output Total 6400 4100 600 Balance 830 33 4666 Weight 65 kg 65 kg General appearance: PRESENT: no acute distress, cooperative, well-developed, well-nourished Head exam: PRESENT: atraumatic, normocephalic Eye exam: PRESENT: conjunctiva pink Mouth exam: PRESENT: moist, tongue midline Neck exam: ABSENT: JVD Respiratory exam: PRESENT: clear to auscultation william, symmetrical. ABSENT: accessory muscle use, unlabored Cardiovascular exam: PRESENT: RRR, +S1, +S2 Pulses: PRESENT: normal radial pulses, +1 pedal pulses bilateral Vascular exam: PRESENT: normal capillary refill GI/Abdominal exam: PRESENT: normal bowel sounds, soft. ABSENT: distended, firm, guarding, rebound, rigid, tenderness Rectal exam: PRESENT: deferred Extremities exam: ABSENT: calf tenderness, pedal edema Neurological exam: PRESENT: alert, awake, oriented to person, oriented to place, oriented to time, oriented to situation, CN II-XII grossly intact Psychiatric exam: PRESENT: appropriate affect, normal mood. ABSENT: agitated, anxious Skin exam: PRESENT: dry, normal color, warm Results Laboratory Results: 02/19/20 04:30 02/21/20 13:45 Impressions: Obstetrics Ultrasound 02/13/20 00:00 IMPRESSION: LIVING INTRAUTERINE . EGA 13 weeks 6 days. Trimester of : Second trimester - 13 weeks 1 day to 27 weeks 6 days. Chest X-Ray 02/15/20 00:00 IMPRESSION: IMAGE(S) OBTAINED DURING PROCEDURE. Guidance Fluoroscopy 02/15/20 00:00 IMPRESSION: IMAGE(S) OBTAINED DURING PROCEDURE. PICC Line Insertion 02/15/20 00:00 IMPRESSION: Unsuccessful right upper extremity PICC placement. Limited right arm venogram demonstrated multiple diminutive draining veins with no direct central access. Patient has had history of 19 prior PICCs at this institution. Future PICCs are likely no longer a viable option. Assessment and Plan - Diagnosis (1) Abscess of left axilla Is this a current diagnosis for this admission?: Yes Plan: Status post I&D by surgery on 02/15/2020 Wound culture growing MRSA ID consulted and they recommend a total of 7 days therapy with vancomycin from the day of patient's I&D as this is category B Discontinue after today's dose (2) Sickle cell anemia with pain Is this a current diagnosis for this admission?: Yes Plan: Hematology input appreciated, they are managing patient's opioid therapy Hematology has started to wean patient's hydromorphone today Continue IV hydration and oxygen therapy (3) Sickle cell anemia of mother during Is this a current diagnosis for this admission?: Yes Plan: OB input appreciated Continue vitamin 1 P.o. daily Continue folic acid 4 mg p.o. daily (4) Hypokalemia Is this a current diagnosis for this admission?: Yes Plan: No EKG changes Serum potassium trending up Patient currently receiving potassium chloride 40 mEq p.o. daily Repeat BMP in a.m. (5) Hypomagnesemia Is this a current diagnosis for this admission?: Yes Plan: We will give 1 g of magnesium sulfate IV x 1 Hopefully this will help the patient's serum K+ normalize - Time Time Spent with patient: 25-34 minutes Medications reviewed and adjusted accordingly: Yes Anticipated Discharge Disposition: Home, Self Care Anticipated Discharge Timeframe: TBD
[2020-02-23] MEDS ORDERED: MAGNESIUM SULFATE/D5W 1 GM/100 ML RTUPB IV ONE (16:30)
[2020-02-23 22:21] LABS: VANCOMYCIN,TROUGH 5.2 ug/mL (5.0-20.0)
[2020-02-24] MEDS: HYDROMORPHONE HCL INJ/PF 2 MG/ML AMPULE IV PRN ×11 (01:13→22:05)
[2020-02-24 04:33] LABS: ABSOLUTE EOSINOPHILS # (AUTO) 0.3 10^3/uL (0.0-0.6); ABSOLUTE MONOCYTES (AUTO) 1.2 10^3/uL (0.1-1.4); ABSOLUTE NEUT (AUTO) 5.5 10^3/uL (1.7-8.2); BASOPHILS % (AUTO) 0.4 % (0-2); HEMATOCRIT 22.5 % (36.0-47.0); LYMPHOCYTES % (AUTO) 30.2 % (13-45); MEAN CORPUSCULAR HEMOGLOBIN 30.9 pg (27.0-33.4); MEAN CORPUSCULAR HGB CONC 34.8 g/dL (32.0-36.0); MEAN CORPUSCULAR VOLUME 89 fl (80-97); MONOCYTES % (AUTO) 11.7 % (3-13); PLATELET COUNT 345 10^3/uL (150-450); RED BLOOD COUNT 2.54 10^6/uL (3.72-5.28); RED CELL DISTRIBUTION WIDTH 15.8 % (11.5-14.0); SEGMENTED NEUTROPHILS % (AUTO) 54.7 % (42-78); TOTAL CELLS COUNTED % (AUTO) 100 %; WHITE BLOOD COUNT 10.1 10^3/uL (4.0-10.5)
[2020-02-24 04:48] LABS: HEMOGLOBIN 7.8 g/dL (12.0-15.5)
[2020-02-24 04:51] LABS: ANION GAP 6 (5-19); BLOOD UREA NITROGEN 3 mg/dL (7-20); CARBON DIOXIDE 26 mmol/L (22-30); CHLORIDE 104 mmol/L (98-107); GLUCOSE 89 mg/dL (75-110)
[2020-02-24] MEDS: DIPHENHYDRAMINE HCL 50 MG/ML VIAL IV PRN ×3 (05:15→18:03)
[2020-02-24] MEDS: PROMETHAZINE HCL INJ 25 MG/1 ML VIAL IV PRN ×3 (05:16→18:04)
[2020-02-24] MEDS: HEPARIN SOD (PORCINE) 5,000 UNIT/ML 1 ML VIAL SUBCUT SCH ×2 (06:16→22:37)
[2020-02-24] MEDS: NORMAL SALINE 1000 ML 1,000 ML IV PRN ×2 (07:27→15:59)
[2020-02-24] MEDS: SODIUM CHLORIDE NASAL SPRAY 44 ML NASL SCH ×3 (09:24→22:37)
[2020-02-24] MEDS: FLUTICASONE NASAL SPRAY 50 MCG/SPRY 120 SPRAY/16 GM NASL SCH (09:24)
[2020-02-24] MEDS: DOCUSATE SODIUM 100 MG CAPSULE PO SCH ×2 (09:26→18:00)
[2020-02-24] MEDS: POTASSIUM CHLORIDE 10 MEQ TABLET.ER PO SCH (09:34)
[2020-02-24] MEDS: PRENATAL VITAMIN W DHA CAPSULE PO SCH (09:35)
[2020-02-24] MEDS: FOLIC ACID 1 MG TABLET PO SCH (09:35)
[2020-02-24] MEDS: MAGNESIUM OXIDE 400 MG TABLET PO SCH ×2 (09:35→18:04)
[2020-02-24] MEDS: NORMAL SALINE 10 ML SDV (SCHEDULED) IV SCH ×2 (09:36→22:38)
--- NOTE | 2020-02-24 12:08 | PDOC PROGRESS REPORT ---
Subjective Progress Note for:: 02/24/20 Subjective:: Patient states that yesterday was a bad day. Today, she is a bit better. She does not wish to make any changes today. Nurses report patient was quite hateful and distressed last night. Reason For Visit: ACUTE SICKLE CELL CRISIS Physical Exam Vital Signs: Temp Pulse Resp BP Pulse Ox 99.0 F 86 16 116/48 L 100 02/24/20 11:27 02/24/20 11:27 02/24/20 11:27 02/24/20 11:27 02/24/20 11:27 Intake & Output 02/23/20 02/24/20 02/25/20 06:59 06:59 06:59 Intake Total 4180 4958 Output Total 4100 3875 Balance 80 1083 Weight 65 kg 64.9 kg General appearance: PRESENT: no acute distress, well-developed, well-nourished Head exam: PRESENT: normocephalic Respiratory exam: PRESENT: unlabored Musculoskeletal exam: PRESENT: normal inspection Neurological exam: PRESENT: alert, awake Psychiatric exam: PRESENT: appropriate affect Skin exam: PRESENT: normal color Results Laboratory Results: 02/24/20 04:10 02/24/20 04:10 02/24/20 02/24/20 04:10 04:10 WBC 10.1 RBC 2.54 L Hgb 7.8 L Hct 22.5 L MCV 89 MCH 30.9 MCHC 34.8 RDW 15.8 H Plt Count 345 Seg Neutrophils % 54.7 Sodium 136.4 L Potassium 4.0 Chloride 104 Carbon Dioxide 26 Anion Gap 6 BUN 3 L Creatinine 0.41 L Est GFR ( Amer) > 60 Glucose 89 Calcium 9.0 Magnesium 1.7 Impressions: Obstetrics Ultrasound 02/13/20 00:00 IMPRESSION: LIVING INTRAUTERINE . EGA 13 weeks 6 days. Trimester of : Second trimester - 13 weeks 1 day to 27 weeks 6 days. Chest X-Ray 02/15/20 00:00 IMPRESSION: IMAGE(S) OBTAINED DURING PROCEDURE. Guidance Fluoroscopy 02/15/20 00:00 IMPRESSION: IMAGE(S) OBTAINED DURING PROCEDURE. PICC Line Insertion 02/15/20 00:00 IMPRESSION: Unsuccessful right upper extremity PICC placement. Limited right arm venogram demonstrated multiple diminutive draining veins with no direct central access. Patient has had history of 19 prior PICCs at this institution. Future PICCs are likely no longer a viable option. Assessment & Plan - Diagnosis (1) Homozygous sickle cell (SS) disease Is this a current diagnosis for this admission?: Yes Plan: Continue fluids, pain medications today. No changes. (2) 13 weeks gestation of Is this a current diagnosis for this admission?: Yes Plan: As per primary team. - Time Time Spent with patient: Less than 15 minutes
--- NOTE | 2020-02-24 19:53 | PDOC PROGRESS REPORT ---
Subjective Progress Note for:: 02/24/20 Subjective:: Patient states that she does not feel well today. She complains of generalized pain which is worse than prior day Reason For Visit: ACUTE SICKLE CELL CRISIS Physical Exam Vital Signs: Temp Pulse Resp BP Pulse Ox 97.6 F 80 16 121/52 L 100 02/24/20 16:31 02/24/20 16:31 02/24/20 16:31 02/24/20 16:31 02/24/20 16:31 Intake & Output 02/23/20 02/24/20 02/25/20 06:59 06:59 06:59 Intake Total 4180 4958 1952 Output Total 4100 3875 2600 Balance 80 1083 -648 Weight 65 kg 64.9 kg General appearance: PRESENT: no acute distress, cooperative, well-developed, well-nourished Head exam: PRESENT: atraumatic, normocephalic Eye exam: PRESENT: conjunctiva pink. ABSENT: scleral icterus Mouth exam: PRESENT: moist, tongue midline Neck exam: ABSENT: JVD Respiratory exam: PRESENT: clear to auscultation william, symmetrical, unlabored. ABSENT: accessory muscle use Cardiovascular exam: PRESENT: RRR, +S1, +S2 Vascular exam: PRESENT: normal capillary refill GI/Abdominal exam: PRESENT: normal bowel sounds, soft. ABSENT: distended, tenderness Rectal exam: PRESENT: deferred Extremities exam: ABSENT: calf tenderness, joint swelling, pedal edema Neurological exam: PRESENT: alert, awake, oriented to person, oriented to place, oriented to time, oriented to situation, CN II-XII grossly intact Psychiatric exam: PRESENT: appropriate affect, normal mood. ABSENT: agitated, anxious Skin exam: PRESENT: dry, normal color, warm Results Laboratory Results: 02/24/20 04:10 02/24/20 04:10 02/24/20 02/24/20 04:10 04:10 WBC 10.1 RBC 2.54 L Hgb 7.8 L Hct 22.5 L MCV 89 MCH 30.9 MCHC 34.8 RDW 15.8 H Plt Count 345 Seg Neutrophils % 54.7 Sodium 136.4 L Potassium 4.0 Chloride 104 Carbon Dioxide 26 Anion Gap 6 BUN 3 L Creatinine 0.41 L Est GFR ( Amer) > 60 Glucose 89 Calcium 9.0 Magnesium 1.7 Impressions: Obstetrics Ultrasound 02/13/20 00:00 IMPRESSION: LIVING INTRAUTERINE . EGA 13 weeks 6 days. Trimester of : Second trimester - 13 weeks 1 day to 27 weeks 6 days. Chest X-Ray 02/15/20 00:00 IMPRESSION: IMAGE(S) OBTAINED DURING PROCEDURE. Guidance Fluoroscopy 02/15/20 00:00 IMPRESSION: IMAGE(S) OBTAINED DURING PROCEDURE. PICC Line Insertion 02/15/20 00:00 IMPRESSION: Unsuccessful right upper extremity PICC placement. Limited right arm venogram demonstrated multiple diminutive draining veins with no direct central access. Patient has had history of 19 prior PICCs at this institution. Future PICCs are likely no longer a viable option. Assessment and Plan - Diagnosis (1) Abscess of left axilla Is this a current diagnosis for this admission?: Yes Plan: Status post I&D by surgery on 02/15/2020 Wound culture growing MRSA ID consulted and they recommend a total of 7 days therapy with vancomycin from the day of patient's I&D as this is category B Vancomycin treatment completed on 02/23/2020 (2) Sickle cell anemia with pain Is this a current diagnosis for this admission?: Yes Plan: Hematology input appreciated, they are managing patient's opioid therapy Continue IVF Continue current opioid analgesic, unable to wean further 2/2 increased pain (3) Sickle cell anemia of mother during Is this a current diagnosis for this admission?: Yes Plan: OB input appreciated Continue vitamin 1 P.o. daily Continue folic acid 4 mg p.o. daily (4) Hypokalemia Is this a current diagnosis for this admission?: Yes Plan: Serum K+ WNL today Continue potassium chloride 40 mEq p.o. daily Repeat BMP in a.m. (5) Hypomagnesemia Is this a current diagnosis for this admission?: Yes Plan: Serum magnesium now WNL Monitor periodically - Time Time Spent with patient: 15-24 minutes Medications reviewed and adjusted accordingly: Yes Anticipated Discharge Disposition: Home, Self Care Anticipated Discharge Timeframe: TBD
[2020-02-25] MEDS: HYDROMORPHONE HCL INJ/PF 2 MG/ML AMPULE IV PRN ×12 (00:05→23:33)
[2020-02-25] MEDS: NORMAL SALINE 1000 ML 1,000 ML IV PRN ×4 (00:12→23:43)
[2020-02-25] MEDS: PROMETHAZINE HCL INJ 25 MG/1 ML VIAL IV PRN ×4 (00:13→18:40)
[2020-02-25] MEDS: DIPHENHYDRAMINE HCL 50 MG/ML VIAL IV PRN ×4 (00:13→18:43)
[2020-02-25] MEDS: HEPARIN SOD (PORCINE) 5,000 UNIT/ML 1 ML VIAL SUBCUT SCH ×4 (06:50→23:36)
[2020-02-25] MEDS: SODIUM CHLORIDE NASAL SPRAY 44 ML NASL SCH ×5 (07:16→23:35)
[2020-02-25 08:08] LABS: ABSOLUTE EOSINOPHILS # (AUTO) 0.3 10^3/uL (0.0-0.6); ABSOLUTE LYMPHOCYTES (AUTO) 2.8 10^3/uL (0.5-4.7); ABSOLUTE MONOCYTES (AUTO) 1.1 10^3/uL (0.1-1.4); ABSOLUTE NEUT (AUTO) 5.4 10^3/uL (1.7-8.2); BASOPHILS % (AUTO) 0.5 % (0-2); EOSINOPHILS % (AUTO) 2.8 % (0-6); HEMATOCRIT 21.9 % (36.0-47.0); LYMPHOCYTES % (AUTO) 28.7 % (13-45); MEAN CORPUSCULAR HEMOGLOBIN 30.9 pg (27.0-33.4); MEAN CORPUSCULAR HGB CONC 34.7 g/dL (32.0-36.0); MEAN CORPUSCULAR VOLUME 89 fl (80-97); MONOCYTES % (AUTO) 11.8 % (3-13); PLATELET COUNT 362 10^3/uL (150-450); RED BLOOD COUNT 2.46 10^6/uL (3.72-5.28); RED CELL DISTRIBUTION WIDTH 15.9 % (11.5-14.0); SEGMENTED NEUTROPHILS % (AUTO) 56.2 % (42-78); TOTAL CELLS COUNTED % (AUTO) 100 %; WHITE BLOOD COUNT 9.7 10^3/uL (4.0-10.5)
[2020-02-25 08:22] LABS: HEMOGLOBIN 7.6 g/dL (12.0-15.5)
[2020-02-25 08:27] LABS: ANION GAP 6 (5-19); BLOOD UREA NITROGEN 4 mg/dL (7-20); CALCIUM 8.6 mg/dL (8.4-10.2); CARBON DIOXIDE 25 mmol/L (22-30); CHLORIDE 105 mmol/L (98-107); GLUCOSE 78 mg/dL (75-110)
[2020-02-25] MEDS: NORMAL SALINE 10 ML SDV (SCHEDULED) IV SCH ×2 (09:47→23:34)
[2020-02-25] MEDS: DOCUSATE SODIUM 100 MG CAPSULE PO SCH ×2 (09:58→17:26)
[2020-02-25] MEDS: FOLIC ACID 1 MG TABLET PO SCH (10:11)
[2020-02-25] MEDS: POTASSIUM CHLORIDE 10 MEQ TABLET.ER PO SCH (10:11)
[2020-02-25] MEDS: FLUTICASONE NASAL SPRAY 50 MCG/SPRY 120 SPRAY/16 GM NASL SCH (10:11)
[2020-02-25] MEDS: PRENATAL VITAMIN W DHA CAPSULE PO SCH (10:11)
[2020-02-25] MEDS: MAGNESIUM OXIDE 400 MG TABLET PO SCH ×2 (10:11→17:55)
--- NOTE | 2020-02-25 15:19 | PDOC PROGRESS REPORT ---
Subjective Progress Note for:: 02/25/20 Subjective:: Patient reports that her generalized pain is only slightly improved from yesterday. She states that the way that she has been able to have improved pain management is by requesting her pain medication on schedule Reason For Visit: ACUTE SICKLE CELL CRISIS Physical Exam Vital Signs: Temp Pulse Resp BP Pulse Ox 98.1 F 84 16 113/52 L 100 02/25/20 11:34 02/25/20 13:55 02/25/20 11:34 02/25/20 08:24 02/25/20 11:34 Intake & Output 02/24/20 02/25/20 02/26/20 06:59 06:59 06:59 Intake Total 4958 4902 1340 Output Total 3875 4150 1100 Balance 1083 752 240 Weight 64.9 kg 64.8 kg General appearance: PRESENT: no acute distress, cooperative Head exam: PRESENT: atraumatic, normocephalic Eye exam: PRESENT: conjunctiva pink Mouth exam: PRESENT: moist, tongue midline Neck exam: ABSENT: JVD Respiratory exam: PRESENT: clear to auscultation william, symmetrical, unlabored. ABSENT: accessory muscle use Cardiovascular exam: PRESENT: RRR, +S1, +S2 Pulses: PRESENT: normal radial pulses, +1 pedal pulses bilateral Vascular exam: PRESENT: normal capillary refill GI/Abdominal exam: PRESENT: normal bowel sounds, soft. ABSENT: distended, tenderness Rectal exam: PRESENT: deferred Extremities exam: ABSENT: calf tenderness, pedal edema Neurological exam: PRESENT: alert, awake, oriented to person, oriented to place, oriented to time, oriented to situation, CN II-XII grossly intact. ABSENT: motor sensory deficit Psychiatric exam: PRESENT: appropriate affect, normal mood. ABSENT: agitated, anxious Skin exam: PRESENT: dry, normal color, warm - Left axilla drained abscess continues to have small amounts of serous drainage Results Laboratory Results: 02/25/20 06:30 02/25/20 06:30 02/25/20 02/25/20 06:30 06:30 WBC 9.7 RBC 2.46 L Hgb 7.6 L Hct 21.9 L MCV 89 MCH 30.9 MCHC 34.7 RDW 15.9 H Plt Count 362 Seg Neutrophils % 56.2 Sodium 135.5 L Potassium 4.0 Chloride 105 Carbon Dioxide 25 Anion Gap 6 BUN 4 L Creatinine 0.43 L Est GFR ( Amer) > 60 Glucose 78 Calcium 8.6 Impressions: Obstetrics Ultrasound 02/13/20 00:00 IMPRESSION: LIVING INTRAUTERINE . EGA 13 weeks 6 days. Trimester of : Second trimester - 13 weeks 1 day to 27 weeks 6 days. Chest X-Ray 02/15/20 00:00 IMPRESSION: IMAGE(S) OBTAINED DURING PROCEDURE. Guidance Fluoroscopy 02/15/20 00:00 IMPRESSION: IMAGE(S) OBTAINED DURING PROCEDURE. PICC Line Insertion 02/15/20 00:00 IMPRESSION: Unsuccessful right upper extremity PICC placement. Limited right arm venogram demonstrated multiple diminutive draining veins with no direct central access. Patient has had history of 19 prior PICCs at this institution. Future PICCs are likely no longer a viable option. Assessment and Plan - Diagnosis (1) Abscess of left axilla Is this a current diagnosis for this admission?: Yes Plan: Status post I&D by surgery on 02/15/2020 Wound culture growing MRSA ID consulted and they recommend a total of 7 days therapy with vancomycin from the day of patient's I&D as this is category B Vancomycin treatment completed on 02/23/2020 Continue to pack wound loosely (packing is very superficial as wound is healing from the inside well) (2) Sickle cell anemia with pain Is this a current diagnosis for this admission?: Yes Plan: Hematology input appreciated, they are managing patient's opioid therapy Continue IVF Continue current opioid analgesic, unable to wean further 2/2 increased pain Once an appropriate discharge pain management strategy is decided upon hematology will need to write the discharge prescriptions (3) Sickle cell anemia of mother during Is this a current diagnosis for this admission?: Yes Plan: OB input appreciated Continue vitamin 1 P.o. daily Continue folic acid 4 mg p.o. daily (4) Hypokalemia Is this a current diagnosis for this admission?: Yes Plan: Serum K+ remains WNL Stop daily potassium supplementation (5) Hypomagnesemia Is this a current diagnosis for this admission?: Yes Plan: Last serum magnesium WNL Monitor periodically - Time Time Spent with patient: 15-24 minutes Medications reviewed and adjusted accordingly: Yes Anticipated Discharge Disposition: Home, Self Care Anticipated Discharge Timeframe: TBD
[2020-02-26] MEDS: HYDROMORPHONE HCL INJ/PF 2 MG/ML AMPULE IV PRN ×8 (01:52→22:00)
[2020-02-26] MEDS: PROMETHAZINE HCL INJ 25 MG/1 ML VIAL IV PRN ×4 (01:53→21:59)
[2020-02-26] MEDS: DIPHENHYDRAMINE HCL 50 MG/ML VIAL IV PRN ×3 (01:53→22:00)
[2020-02-26] MEDS: HEPARIN SOD (PORCINE) 5,000 UNIT/ML 1 ML VIAL SUBCUT SCH ×3 (05:48→22:16)
[2020-02-26 08:35] LABS: ABSOLUTE EOSINOPHILS # (AUTO) 0.3 10^3/uL (0.0-0.6); ABSOLUTE LYMPHOCYTES (AUTO) 2.2 10^3/uL (0.5-4.7); ABSOLUTE MONOCYTES (AUTO) 1.1 10^3/uL (0.1-1.4); ABSOLUTE NEUT (AUTO) 6.8 10^3/uL (1.7-8.2); BASOPHILS % (AUTO) 0.5 % (0-2); EOSINOPHILS % (AUTO) 2.7 % (0-6); HEMATOCRIT 21.9 % (36.0-47.0); LYMPHOCYTES % (AUTO) 21.3 % (13-45); MEAN CORPUSCULAR HEMOGLOBIN 31.1 pg (27.0-33.4); MEAN CORPUSCULAR HGB CONC 34.8 g/dL (32.0-36.0); MEAN CORPUSCULAR VOLUME 89 fl (80-97); MONOCYTES % (AUTO) 10.9 % (3-13); PLATELET COUNT 360 10^3/uL (150-450); RED BLOOD COUNT 2.44 10^6/uL (3.72-5.28); RED CELL DISTRIBUTION WIDTH 16.1 % (11.5-14.0); SEGMENTED NEUTROPHILS % (AUTO) 64.6 % (42-78); TOTAL CELLS COUNTED % (AUTO) 100 %; WHITE BLOOD COUNT 10.5 10^3/uL (4.0-10.5)
[2020-02-26 08:47] LABS: HEMOGLOBIN 7.6 g/dL (12.0-15.5)
[2020-02-26] MEDS: PRENATAL VITAMIN W DHA CAPSULE PO SCH (09:30)
[2020-02-26] MEDS: MAGNESIUM OXIDE 400 MG TABLET PO SCH ×2 (09:30→17:49)
[2020-02-26] MEDS: FOLIC ACID 1 MG TABLET PO SCH (09:30)
[2020-02-26] MEDS: NORMAL SALINE 1000 ML 1,000 ML IV PRN ×3 (09:30→22:12)
[2020-02-26] MEDS: FLUTICASONE NASAL SPRAY 50 MCG/SPRY 120 SPRAY/16 GM NASL SCH (09:34)
[2020-02-26] MEDS: NORMAL SALINE 10 ML SDV (SCHEDULED) IV SCH ×2 (09:35→22:00)
[2020-02-26] MEDS: DOCUSATE SODIUM 100 MG CAPSULE PO SCH ×2 (09:37→17:51)
[2020-02-26] MEDS: SODIUM CHLORIDE NASAL SPRAY 44 ML NASL SCH ×4 (09:37→22:11)
--- NOTE | 2020-02-26 11:08 | PDOC PROGRESS REPORT ---
Subjective Progress Note for:: 02/26/20 Subjective:: Patient states that she is feeling better. She would like to go home, but understands that her dilaudid will need to be weaned a bit more first. She is also still worried about baby. ROS: No dyspnea, No constipation Reason For Visit: ACUTE SICKLE CELL CRISIS Physical Exam Vital Signs: Temp Pulse Resp BP Pulse Ox 97.8 F 79 15 129/48 H 98 02/26/20 08:26 02/26/20 08:26 02/26/20 08:26 02/26/20 08:26 02/26/20 08:26 Intake & Output 02/25/20 02/26/20 02/27/20 06:59 06:59 06:59 Intake Total 4902 4790 Output Total 4150 4650 Balance 752 140 Weight 64.8 kg 66.3 kg General appearance: PRESENT: no acute distress, well-developed, well-nourished Head exam: PRESENT: normocephalic Respiratory exam: PRESENT: clear to auscultation william, unlabored Cardiovascular exam: PRESENT: RRR GI/Abdominal exam: PRESENT: soft. ABSENT: tenderness Extremities exam: ABSENT: pedal edema Musculoskeletal exam: PRESENT: ambulatory Neurological exam: PRESENT: alert, awake Psychiatric exam: PRESENT: appropriate affect Skin exam: PRESENT: normal color Results Laboratory Results: 02/26/20 07:40 02/25/20 06:30 02/26/20 07:40 WBC 10.5 RBC 2.44 L Hgb 7.6 L Hct 21.9 L MCV 89 MCH 31.1 MCHC 34.8 RDW 16.1 H Plt Count 360 Seg Neutrophils % 64.6 Impressions: Obstetrics Ultrasound 02/13/20 00:00 IMPRESSION: LIVING INTRAUTERINE . EGA 13 weeks 6 days. Trimester of : Second trimester - 13 weeks 1 day to 27 weeks 6 days. Chest X-Ray 02/15/20 00:00 IMPRESSION: IMAGE(S) OBTAINED DURING PROCEDURE. Guidance Fluoroscopy 02/15/20 00:00 IMPRESSION: IMAGE(S) OBTAINED DURING PROCEDURE. PICC Line Insertion 02/15/20 00:00 IMPRESSION: Unsuccessful right upper extremity PICC placement. Limited right arm venogram demonstrated multiple diminutive draining veins with no direct central access. Patient has had history of 19 prior PICCs at this institution. Future PICCs are likely no longer a viable option. Assessment & Plan - Diagnosis (1) Homozygous sickle cell (SS) disease Is this a current diagnosis for this admission?: Yes Plan: I will decrease Dilaudid from 3 mg to 2 mg q 2 hours. If she is doing well on this dose tomorrow, will discharge home. (2) 13 weeks gestation of Is this a current diagnosis for this admission?: Yes Plan: She had miscarriage last and requests a quick doppler to make sure baby's heart is still beating. I will do my best to arrange. - Time Time Spent with patient: 15-24 minutes - Plan Summary Plan Summary: Patient was discussed with Dr. Hamm. I will arrange for follow-up with Dr. Cornelius as well as any narcotic Rx for home use.
--- NOTE | 2020-02-26 21:25 | PDOC PROGRESS REPORT ---
Subjective Progress Note for:: 02/26/20 Subjective:: Patient reports today that her pain has improved slightly Reason For Visit: ACUTE SICKLE CELL CRISIS Physical Exam Vital Signs: Temp Pulse Resp BP Pulse Ox 98.6 F 89 17 106/41 L 98 02/26/20 12:05 02/26/20 12:05 02/26/20 12:05 02/26/20 12:05 02/26/20 12:05 Intake & Output 02/25/20 02/26/20 02/27/20 06:59 06:59 06:59 Intake Total 4902 4790 1836 Output Total 4150 4650 2900 Balance 752 140 -1064 Weight 64.8 kg 66.3 kg General appearance: PRESENT: no acute distress, cooperative, well-developed, well-nourished Head exam: PRESENT: atraumatic, normocephalic Eye exam: PRESENT: conjunctiva pink. ABSENT: scleral icterus Mouth exam: PRESENT: moist, tongue midline Neck exam: ABSENT: JVD, thyromegaly Respiratory exam: PRESENT: clear to auscultation william, symmetrical, unlabored. ABSENT: accessory muscle use Cardiovascular exam: PRESENT: RRR, +S1, +S2 Pulses: PRESENT: normal radial pulses, +1 pedal pulses bilateral Vascular exam: PRESENT: normal capillary refill GI/Abdominal exam: PRESENT: normal bowel sounds, soft. ABSENT: distended, tenderness Rectal exam: PRESENT: deferred Extremities exam: ABSENT: calf tenderness, pedal edema Neurological exam: PRESENT: alert, awake, oriented to person, oriented to place, oriented to time, oriented to situation, CN II-XII grossly intact. ABSENT: motor sensory deficit Psychiatric exam: PRESENT: appropriate affect, normal mood. ABSENT: agitated, anxious Skin exam: PRESENT: dry, normal color, warm, other - Axilla wound with minimal to no drainage. Minimal erythema. Results Laboratory Results: 02/26/20 07:40 02/25/20 06:30 02/26/20 07:40 WBC 10.5 RBC 2.44 L Hgb 7.6 L Hct 21.9 L MCV 89 MCH 31.1 MCHC 34.8 RDW 16.1 H Plt Count 360 Seg Neutrophils % 64.6 Impressions: Obstetrics Ultrasound 02/13/20 00:00 IMPRESSION: LIVING INTRAUTERINE . EGA 13 weeks 6 days. Trimester of : Second trimester - 13 weeks 1 day to 27 weeks 6 days. Chest X-Ray 02/15/20 00:00 IMPRESSION: IMAGE(S) OBTAINED DURING PROCEDURE. Guidance Fluoroscopy 02/15/20 00:00 IMPRESSION: IMAGE(S) OBTAINED DURING PROCEDURE. PICC Line Insertion 02/15/20 00:00 IMPRESSION: Unsuccessful right upper extremity PICC placement. Limited right arm venogram demonstrated multiple diminutive draining veins with no direct central access. Patient has had history of 19 prior PICCs at this institution. Future PICCs are likely no longer a viable option. Assessment and Plan - Diagnosis (1) Abscess of left axilla Is this a current diagnosis for this admission?: Yes Plan: Status post I&D by surgery on 02/15/2020 Wound culture growing MRSA ID consulted and they recommend a total of 7 days therapy with vancomycin from the day of patient's I&D as this is category B Vancomycin treatment completed on 02/23/2020 Continue to pack wound loosely (packing is very superficial as wound is healing from the inside well) Minimal to no drainage noted (2) Sickle cell anemia with pain Is this a current diagnosis for this admission?: Yes Plan: Hematology input appreciated, they are managing patient's opioid therapy Continue IVF Spoke with locomotive driver today and her plan would be to attempt discharge tomorrow. She states that the patient receives her pain medication from the outpatient hematology clinic and that she has sufficient pain medications at home and will not need a discharge prescription for opioid analgesics (3) Sickle cell anemia of mother during Is this a current diagnosis for this admission?: Yes Plan: OB input appreciated Continue vitamin 1 P.o. daily Continue folic acid 4 mg p.o. daily (4) Hypokalemia Is this a current diagnosis for this admission?: Yes Plan: Check BMP in a.m. (5) Hypomagnesemia Is this a current diagnosis for this admission?: Yes Plan: Resolved - Time Time Spent with patient: 15-24 minutes Medications reviewed and adjusted accordingly: Yes Anticipated Discharge Disposition: Home, Self Care Anticipated Discharge Timeframe: within 24 hours
[2020-02-27] MEDS: HYDROMORPHONE HCL INJ/PF 2 MG/ML AMPULE IV PRN ×9 (00:04→23:50)
[2020-02-27] MEDS: DIPHENHYDRAMINE HCL 50 MG/ML VIAL IV PRN ×3 (05:12→17:21)
[2020-02-27] MEDS: PROMETHAZINE HCL INJ 25 MG/1 ML VIAL IV PRN ×3 (05:13→17:21)
[2020-02-27] MEDS: HEPARIN SOD (PORCINE) 5,000 UNIT/ML 1 ML VIAL SUBCUT SCH ×3 (05:35→22:00)
[2020-02-27 06:07] LABS: HEMATOCRIT 21.5 % (36.0-47.0); MEAN CORPUSCULAR HEMOGLOBIN 30.7 pg (27.0-33.4); MEAN CORPUSCULAR HGB CONC 34.5 g/dL (32.0-36.0); MEAN CORPUSCULAR VOLUME 89 fl (80-97); PLATELET COUNT 351 10^3/uL (150-450); RED BLOOD COUNT 2.42 10^6/uL (3.72-5.28); RED CELL DISTRIBUTION WIDTH 15.7 % (11.5-14.0); WHITE BLOOD COUNT 11.1 10^3/uL (4.0-10.5)
[2020-02-27 06:14] LABS: HEMOGLOBIN 7.4 g/dL (12.0-15.5)
[2020-02-27 06:19] LABS: ANION GAP 6 (5-19); BLOOD UREA NITROGEN 5 mg/dL (7-20); CALCIUM 8.7 mg/dL (8.4-10.2); CARBON DIOXIDE 23 mmol/L (22-30); CHLORIDE 107 mmol/L (98-107); GLUCOSE 79 mg/dL (75-110); POTASSIUM 3.7 mmol/L (3.6-5.0)
[2020-02-27] MEDS: NORMAL SALINE 1000 ML 1,000 ML IV PRN ×2 (08:59→17:21)
[2020-02-27] MEDS: SODIUM CHLORIDE NASAL SPRAY 44 ML NASL SCH ×4 (11:04→22:01)
[2020-02-27] MEDS: DOCUSATE SODIUM 100 MG CAPSULE PO SCH ×2 (11:05→17:26)
[2020-02-27] MEDS: PRENATAL VITAMIN W DHA CAPSULE PO SCH (11:17)
[2020-02-27] MEDS: FOLIC ACID 1 MG TABLET PO SCH (11:17)
[2020-02-27] MEDS: MAGNESIUM OXIDE 400 MG TABLET PO SCH ×2 (11:17→17:21)
[2020-02-27] MEDS: FLUTICASONE NASAL SPRAY 50 MCG/SPRY 120 SPRAY/16 GM NASL SCH (11:22)
[2020-02-27] MEDS: NORMAL SALINE 10 ML SDV (SCHEDULED) IV SCH ×2 (11:23→22:00)
--- NOTE | 2020-02-27 14:10 | EKG REPORT ---
SEVERITY:- ABNORMAL ECG - SINUS RHYTHM PROLONGED QT INTERVAL : Confirmed by: Bradley Alarcon 27-Feb-2020 14:10:05
[2020-02-27] MEDS ORDERED: POTASSIUM CHLORIDE 10 MEQ TABLET.ER PO ONE (16:13)
--- NOTE | 2020-02-27 16:20 | PDOC PROGRESS REPORT ---
Subjective Progress Note for:: 02/27/20 Subjective:: States that her pain is improved today Reason For Visit: ACUTE SICKLE CELL CRISIS Physical Exam Vital Signs: Temp Pulse Resp BP Pulse Ox 98.0 F 76 19 96/39 L 100 02/27/20 12:12 02/27/20 12:12 02/27/20 12:12 02/27/20 12:12 02/27/20 12:12 Intake & Output 02/26/20 02/27/20 02/28/20 06:59 06:59 06:59 Intake Total 4750 3491 465 Output Total 4654 4600 900 Balance 140 -1109 -435 Weight 66.3 kg 64.4 kg General appearance: PRESENT: no acute distress, cooperative, well-developed, well-nourished Head exam: PRESENT: atraumatic, normocephalic Eye exam: PRESENT: conjunctiva pink. ABSENT: scleral icterus Mouth exam: PRESENT: moist, tongue midline Neck exam: ABSENT: JVD Respiratory exam: PRESENT: clear to auscultation william, symmetrical, unlabored. ABSENT: accessory muscle use Cardiovascular exam: PRESENT: RRR, +S1, +S2 Pulses: PRESENT: normal radial pulses, +2 pedal pulses bilateral Vascular exam: PRESENT: normal capillary refill GI/Abdominal exam: PRESENT: distended, normal bowel sounds, soft, other - Abdomen consistent with gestational term. ABSENT: tenderness Rectal exam: PRESENT: deferred Extremities exam: ABSENT: calf tenderness, pedal edema Musculoskeletal exam: PRESENT: ambulatory Neurological exam: PRESENT: alert, awake, oriented to person, oriented to place, oriented to time, oriented to situation, CN II-XII grossly intact. ABSENT: motor sensory deficit Psychiatric exam: PRESENT: appropriate affect, normal mood. ABSENT: agitated, anxious Skin exam: PRESENT: dry, normal color, warm Results Laboratory Results: 02/27/20 05:30 02/27/20 05:30 02/27/20 02/27/20 05:30 05:30 WBC 11.1 H RBC 2.42 L Hgb 7.4 L Hct 21.5 L MCV 89 MCH 30.7 MCHC 34.5 RDW 15.7 H Plt Count 351 Sodium 136.1 L Potassium 3.7 Chloride 107 Carbon Dioxide 23 Anion Gap 6 BUN 5 L Creatinine 0.42 L Est GFR ( Amer) > 60 Glucose 79 Calcium 8.7 Impressions: Obstetrics Ultrasound 02/13/20 00:00 IMPRESSION: LIVING INTRAUTERINE . EGA 13 weeks 6 days. Trimester of : Second trimester - 13 weeks 1 day to 27 weeks 6 days. Chest X-Ray 02/15/20 00:00 IMPRESSION: IMAGE(S) OBTAINED DURING PROCEDURE. Guidance Fluoroscopy 02/15/20 00:00 IMPRESSION: IMAGE(S) OBTAINED DURING PROCEDURE. PICC Line Insertion 02/15/20 00:00 IMPRESSION: Unsuccessful right upper extremity PICC placement. Limited right arm venogram demonstrated multiple diminutive draining veins with no direct central access. Patient has had history of 19 prior PICCs at this institution. Future PICCs are likely no longer a viable option. Assessment and Plan - Diagnosis (1) Abscess of left axilla Is this a current diagnosis for this admission?: Yes Plan: Status post I&D by surgery on 02/15/2020 Wound culture growing MRSA ID consulted and they recommend a total of 7 days therapy with vancomycin from the day of patient's I&D as this is category B Vancomycin treatment completed on 02/23/2020 Minimal elevation in WBC Patient remains afebrile and nontoxic in appearance with almost complete resolution of axillary pain and no drainage Stop wound packing (2) Sickle cell anemia with pain Is this a current diagnosis for this admission?: Yes Plan: Hematology input appreciated, they are managing patient's opioid therapy Continue IVF Spoke with physical therapy aides teacher 02/26/20 and her plan would be to attempt discharge day. She states that the patient receives her pain medication from the outpatient hematology clinic and that she has sufficient pain medications at home and will not need a discharge prescription for opioid analgesics (3) Sickle cell anemia of mother during Is this a current diagnosis for this admission?: Yes Plan: OB input appreciated Continue vitamin 1 P.o. daily Continue folic acid 4 mg p.o. daily Patient wishes to have ultrasound to confirm presence of heart tones prior to discharge. This is not an unreasonable request (4) Hypokalemia Is this a current diagnosis for this admission?: Yes Plan: Resolved We will give KCl 30 mEq p.o. x1 to supplement K+ 3.7 (5) Hypomagnesemia Is this a current diagnosis for this admission?: Yes Plan: Resolved - Plan Summary Summary: I attempted to dopple heart tones however the Doppler machine which I used was a vascular Dopplers. We contacted the OB department and requested that they bring up a maternal/ ultrasounds to assess for heart tones. At this time we are awaiting this to happen. Once has been completed the plan is to discharge the patient. - Time Time Spent with patient: 15-24 minutes Medications reviewed and adjusted accordingly: Yes Anticipated Discharge Disposition: Home, Self Care Anticipated Discharge Timeframe: within 24 hours
--- NOTE | 2020-02-27 17:24 | PDOC PROGRESS REPORT ---
Subjective Progress Note for:: 02/27/20 Subjective:: Patient feeling better. Anxious to go home today or tomorrow. Still has not been able to have nurses from OB come to do a dopler. Reason For Visit: ACUTE SICKLE CELL CRISIS Physical Exam Vital Signs: Temp Pulse Resp BP Pulse Ox 98.0 F 76 19 96/39 L 100 02/27/20 12:12 02/27/20 12:12 02/27/20 12:12 02/27/20 12:12 02/27/20 12:12 Intake & Output 02/26/20 02/27/20 02/28/20 06:59 06:59 06:59 Intake Total 4790 3491 465 Output Total 4650 4600 900 Balance 140 -1109 -435 Weight 66.3 kg 64.4 kg General appearance: PRESENT: no acute distress Head exam: PRESENT: normocephalic Respiratory exam: PRESENT: unlabored Musculoskeletal exam: PRESENT: normal inspection Neurological exam: PRESENT: alert, awake Psychiatric exam: PRESENT: appropriate affect Skin exam: PRESENT: normal color Results Laboratory Results: 02/27/20 05:30 02/27/20 05:30 02/27/20 02/27/20 05:30 05:30 WBC 11.1 H RBC 2.42 L Hgb 7.4 L Hct 21.5 L MCV 89 MCH 30.7 MCHC 34.5 RDW 15.7 H Plt Count 351 Sodium 136.1 L Potassium 3.7 Chloride 107 Carbon Dioxide 23 Anion Gap 6 BUN 5 L Creatinine 0.42 L Est GFR ( Amer) > 60 Glucose 79 Calcium 8.7 Impressions: Obstetrics Ultrasound 02/13/20 00:00 IMPRESSION: LIVING INTRAUTERINE . EGA 13 weeks 6 days. Trimester of : Second trimester - 13 weeks 1 day to 27 weeks 6 days. Chest X-Ray 02/15/20 00:00 IMPRESSION: IMAGE(S) OBTAINED DURING PROCEDURE. Guidance Fluoroscopy 02/15/20 00:00 IMPRESSION: IMAGE(S) OBTAINED DURING PROCEDURE. PICC Line Insertion 02/15/20 00:00 IMPRESSION: Unsuccessful right upper extremity PICC placement. Limited right arm venogram demonstrated multiple diminutive draining veins with no direct central access. Patient has had history of 19 prior PICCs at this institution. Future PICCs are likely no longer a viable option. Assessment & Plan - Diagnosis (1) Homozygous sickle cell (SS) disease Is this a current diagnosis for this admission?: Yes Plan: Continue O2, fluids, pain medications. (2) 13 weeks gestation of Is this a current diagnosis for this admission?: Yes Plan: With recent loss, last . We have requested someone from OB come to check heart tones before discharge. We are still waiting. After discussion with specialist at [facility], recommendation was made to try to switch to Methadone from now on. Patient has never been on this drug before. She is willing to try. I will start at low dose of 5 mg po BID. Also, was recommended for psych consult for grief counseling. I will try to arrange. - Time Time Spent with patient: 15-24 minutes - Plan Summary Plan Summary: OK from our standpoint for discharge. I will arrange all outpatient pain medications.
[2020-02-27] MEDS: METHADONE HCL 10 MG TABLET PO SCH (21:56)
[2020-02-28] MEDS: HYDROMORPHONE HCL INJ/PF 2 MG/ML AMPULE IV PRN ×8 (02:00→17:01)
[2020-02-28] MEDS: DIPHENHYDRAMINE HCL 50 MG/ML VIAL IV PRN ×3 (02:00→14:43)
[2020-02-28] MEDS: PROMETHAZINE HCL INJ 25 MG/1 ML VIAL IV PRN ×3 (02:00→14:43)
[2020-02-28] MEDS: NORMAL SALINE 1000 ML 1,000 ML IV PRN ×2 (02:07→14:43)
[2020-02-28] MEDS: HEPARIN SOD (PORCINE) 5,000 UNIT/ML 1 ML VIAL SUBCUT SCH ×2 (06:30→14:12)
[2020-02-28] MEDS: SODIUM CHLORIDE NASAL SPRAY 44 ML NASL SCH ×2 (08:28→10:44)
[2020-02-28] MEDS: DOCUSATE SODIUM 100 MG CAPSULE PO SCH (09:00)
[2020-02-28] MEDS: MAGNESIUM OXIDE 400 MG TABLET PO SCH (09:04)
[2020-02-28] MEDS: FOLIC ACID 1 MG TABLET PO SCH (09:04)
[2020-02-28] MEDS: PRENATAL VITAMIN W DHA CAPSULE PO SCH (09:04)
[2020-02-28] MEDS: METHADONE HCL 10 MG TABLET PO SCH (09:05)
[2020-02-28] MEDS: NORMAL SALINE 10 ML SDV (SCHEDULED) IV SCH (09:05)
[2020-02-28] MEDS: FLUTICASONE NASAL SPRAY 50 MCG/SPRY 120 SPRAY/16 GM NASL SCH (09:09)
[2020-02-28] MEDS ORDERED: METHADONE HCL 10 MG TABLET PO ONE (16:30)
--- NOTE | 2020-02-28 17:37 | PDOC DISCHARGE SUMMARY ---
Impression - Admit/DC Date/PCP Admission Date/Primary Care Provider: 02/12/20 23:33 AMALIA OROZCO PA-C Discharge Date: 02/28/20 - Discharge Diagnosis (1) Abscess of left axilla Is this a current diagnosis for this admission?: Yes (2) Sickle cell anemia with pain Is this a current diagnosis for this admission?: Yes (3) Sickle cell anemia of mother during Is this a current diagnosis for this admission?: Yes (4) Hypokalemia Is this a current diagnosis for this admission?: Yes (5) Hypomagnesemia Is this a current diagnosis for this admission?: Yes - Assessment Summary: I attempted to dopple heart tones however the Doppler machine which I used was a vascular Dopplers. We contacted the OB department and requested that they bring up a maternal/ ultrasounds to assess for heart tones. At this time we are awaiting this to happen. Once has been completed the plan is to discharge the patient. - Additional Information Resuscitation Status: Full Code Discharge Diet: As Tolerated Discharge Activity: Activity As Tolerated Referrals: AMALIA OROZCO PA-C [Primary Care Provider] - Follow up as needed BRUNA MENJIVAR MD [ACTIVE STAFF] - (in 2 weeks. Office to call patient with appt. ) Home Medications: Folic Acid 4 mg PO DAILY 07/11/19 Pnv No.95/Ferrous Fum/Folic AC [ Vitamins Tablet] 1 each PO DAILY #60 tablet 12/17/19 Ondansetron HCl [Zofran 8 mg Tablet] 8 mg PO Q6HP PRN 02/13/20 Promethazine HCl [Phenergan 25 mg Supp.rect] 25 mg [place] Q12HP PRN 02/13/20 Methadone HCl [Dolophine 10 mg Tablet] 5 mg PO Q12 tablet 02/28/20 History of Present Illiness History of Present Illness: PRANAV JOINER is a 29 year old female with PMH significant for sickle cell, asthma, migraine headaches, prior port placement x2 with removal 2/2 infection and GERD who presented to the ED with a one-week history of sickle cell crisis. Note, the patient is 13 weeks (. Her sickle cell pain was accompanied by nausea and vomiting as well as decreased appetite. Hospitalist service was consulted to admit patient for further evaluation and treatment. Her primary bait painter was consulted as well to follow along. Hospital Course Hospital Course: An OB consult was obtained for guidance in any additional treatment for patient's . Their recommendations were simply to continue her vitamins and folic acid. PICC insertion was attempted vascular access however this was unsuccessful. A surgery consult was also obtained for placement of more reliable vascular access. Patient complained of left axilla pain and had leukocytosis. She was found to have an abscess in her left axilla and on 02/15/2020 she underwent I&D of said abscess. On that day she also had a Smith catheter placed. Over subsequent days operative cultures of the patient's abscess revealed MRSA. An ID consult was requested given the patient's and they made a recommendation for 7 days of IV vancomycin following the date of her I&D which was completed. Towards the end of the patient's hospitalization hematology discussed the patient's case with [facility] and they recommended transitioning the patient to methadone which hematology did do. The patient was cleared by hematology for discharge to home with outpatient follow-up. It was felt patient was medically stable as well. On 02/28/2020 the patient was discharged to home with home health services. Physical Exam Vital Signs: Temp Pulse Resp BP Pulse Ox 97.6 F 90 16 126/51 H 100 02/28/20 15:28 02/28/20 15:28 02/28/20 15:28 02/28/20 15:28 02/28/20 15:28 Intake & Output 02/27/20 02/28/20 02/29/20 06:59 06:59 06:59 Intake Total 3491 3995 1237 Output Total 4600 5700 500 Balance -1109 -1705 737 Weight 64.4 kg 63.8 kg General appearance: PRESENT: no acute distress, cooperative, well-developed, well-nourished Head exam: PRESENT: atraumatic, normocephalic Eye exam: PRESENT: conjunctiva pink. ABSENT: scleral icterus Mouth exam: PRESENT: moist, tongue midline Neck exam: ABSENT: JVD Respiratory exam: PRESENT: clear to auscultation william, symmetrical, unlabored. ABSENT: accessory muscle use Cardiovascular exam: PRESENT: RRR, +S1, +S2 Pulses: PRESENT: normal carotid pulses, normal radial pulses, +1 pedal pulses bilateral GI/Abdominal exam: PRESENT: normal bowel sounds, soft. ABSENT: distended, tenderness Rectal exam: PRESENT: deferred Extremities exam: ABSENT: calf tenderness, pedal edema Neurological exam: PRESENT: alert, awake, oriented to person, oriented to place, oriented to time, oriented to situation, CN II-XII grossly intact. ABSENT: mot or sensory deficit Psychiatric exam: PRESENT: appropriate affect, normal mood. ABSENT: agitated, anxious Skin exam: PRESENT: dry, normal color, warm Results Laboratory Results: WBC 11.1 10^3/uL (4.0-10.5) H 02/27/20 05:30 RBC 2.42 10^6/uL (3.72-5.28) L 02/27/20 05:30 Hgb 7.4 g/dL (12.0-15.5) L 02/27/20 05:30 Hct 21.5 % (36.0-47.0) L 02/27/20 05:30 MCV 89 fl (80-97) 02/27/20 05:30 MCH 30.7 pg (27.0-33.4) 02/27/20 05:30 MCHC 34.5 g/dL (32.0-36.0) 02/27/20 05:30 RDW 15.7 % (11.5-14.0) H 02/27/20 05:30 Plt Count 351 10^3/uL (150-450) 02/27/20 05:30 Lymph % (Auto) 21.3 % (13-45) 02/26/20 07:40 Wise % (Auto) 10.9 % (3-13) 02/26/20 07:40 Eos % (Auto) 2.7 % (0-6) 02/26/20 07:40 Baso % (Auto) 0.5 % (0-2) 02/26/20 07:40 Reticulocyte # 0.140 10^6/uL (0.028-0.122) H 02/12/20 16:50 Absolute Neuts (auto) 6.8 10^3/uL (1.7-8.2) 02/26/20 07:40 Absolute Lymphs (auto) 2.2 10^3/uL (0.5-4.7) 02/26/20 07:40 Absolute Monos (auto) 1.1 10^3/uL (0.1-1.4) 02/26/20 07:40 Absolute Eos (auto) 0.3 10^3/uL (0.0-0.6) 02/26/20 07:40 Absolute Basos (auto) 0.0 10^3/uL (0.0-0.2) 02/26/20 07:40 Seg Neutrophils % 64.6 % (42-78) 02/26/20 07:40 Toxic Granulation SLIGHT 02/13/20 21:28 Platelet Comment ADEQUATE 02/15/20 06:00 Polychromasia SLIGHT 02/15/20 06:00 Poikilocytosis 1+ 02/15/20 06:00 Anisocytosis 1+ 02/15/20 06:00 Pappenheimer Bodies PRESENT 02/12/20 16:50 Sickle Cells 1+ 02/15/20 06:00 Target Cells SLIGHT 02/15/20 06:00 Tear Drop Cells 1+ 02/13/20 21:28 Ovalocytes SLIGHT 02/13/20 21:28 [place] Bodies PRESENT 02/12/20 16:50 Aisha Cells SLIGHT 02/13/20 21:28 Schistocytes 2+ 02/13/20 21:28 Retic Count (auto) 5.33 % (0.66-2.85) H 02/12/20 16:50 Sodium 136.1 mmol/L (137-145) L 02/27/20 05:30 Potassium 3.7 mmol/L (3.6-5.0) 02/27/20 05:30 Chloride 107 mmol/L (98-107) 02/27/20 05:30 Carbon Dioxide 23 mmol/L (22-30) 02/27/20 05:30 Anion Gap 6 (5-19) 02/27/20 05:30 BUN 5 mg/dL (7-20) L 02/27/20 05:30 Creatinine 0.42 mg/dL (0.52-1.25) L 02/27/20 05:30 Est GFR ( Amer) > 60 (>60) 02/27/20 05:30 Est GFR (MDRD) Non-Af > 60 (>60) 02/27/20 05:30 Glucose 79 mg/dL (75-110) 02/27/20 05:30 Calcium 8.7 mg/dL (8.4-10.2) 02/27/20 05:30 Magnesium 1.7 mg/dL (1.6-2.3) 02/24/20 04:10 Total Bilirubin 1.7 mg/dL (0.2-1.3) H 02/15/20 06:00 Direct Bilirubin 0.0 mg/dL (0.0-0.4) 02/15/20 06:00 Neonat Total Bilirubin Not Reportable 02/15/20 06:00 Neonat Direct Bilirubin Not Reportable 02/15/20 06:00 Neonat Indirect Bili Not Reportable 02/15/20 06:00 AST 44 U/L (14-36) H 02/15/20 06:00 ALT 15 U/L (<35) 02/15/20 06:00 Alkaline Phosphatase 41 U/L (38-126) 02/15/20 06:00 Total Protein 6.3 g/dL (6.3-8.2) 02/15/20 06:00 Albumin 3.7 g/dL (3.5-5.0) 02/15/20 06:00 TSH 1.12 uIU/mL (0.47-4.68) 02/13/20 01:15 Free T3 pg/mL 3.42 pg/mL (2.77-5.27) 02/13/20 01:15 Beta HCG, Quant 15851.00 mIU/mL (0.0-6.15) H 02/12/20 16:50 Total Beta HCG POSITIVE (NEGATIVE) 02/12/20 16:50 Time Trough Drawn 2146 02/23/20 21:46 Vancomycin Trough 5.2 ug/mL (5.0-20.0) 02/23/20 21:46 SARS-CoV-2 (PCR) NEGATIVE (NEGATIVE) 02/13/20 12:41 Blood Type O POSITIVE 02/16/20 12:00 Antibody Screen NEGATIVE 02/16/20 12:00 Crossmatch See Detail 02/16/20 12:00 Impressions: Obstetrics Ultrasound 02/13/20 00:00 IMPRESSION: LIVING INTRAUTERINE . EGA 13 weeks 6 days. Trimester of : Second trimester - 13 weeks 1 day to 27 weeks 6 days. Chest X-Ray 02/15/20 00:00 IMPRESSION: IMAGE(S) OBTAINED DURING PROCEDURE. Guidance Fluoroscopy 02/15/20 00:00 IMPRESSION: IMAGE(S) OBTAINED DURING PROCEDURE. PICC Line Insertion 02/15/20 00:00 IMPRESSION: Unsuccessful right upper extremity PICC placement. Limited right arm venogram demonstrated multiple diminutive draining veins with no direct central access. Patient has had history of 19 prior PICCs at this institution. Future PICCs are likely no longer a viable option. Plan Plan of Treatment: Discharge home with home health services Patient will be trained to care for her Smith catheter (Smith catheter dressing changed every 7 days and as needed (if becomes loose or soiled), change the caps on catheter ports every 4 Days, flush each port of the Smith with 10 cc of normal saline followed by 30 units of heparin every 12 hours and as needed) Follow-up with PCP within 7 days of discharge Follow-up with hematology Time Spent: Greater than 30 Minutes Stroke Is this a Stroke Patient?: No Acute Heart Failure - Is this a Heart Failure Patient?: No
[2020-02-28 17:46] VITALS: BP 102/41
== END 2020-02-28 18:05 | disposition home health service (06) | DRG 831 ==
LOC: ER 15:02 → EH 23:33 → 4S 02-13 00:50 → 2N 02-16 03:25 → 5 02-19 21:13
PROVIDERS: ADMIT Emergency Medicine; ATTEND Nurse Practitioner
PROC: 30233N1 Transfusion of Nonautologous Red Blood Cells into Peripheral Vein, Percutaneous Approach (ICD-10-PCS; principal; 2020-02-13)
PROC: 0J9F3ZZ Drainage of Left Upper Arm Subcutaneous Tissue and Fascia, Percutaneous Approach (ICD-10-PCS; 2020-02-15)
PROC: 05JY3ZZ Inspection of Upper Vein, Percutaneous Approach (ICD-10-PCS; 2020-02-15)
PROC: 02HV33Z Insertion of Infusion Device into Superior Vena Cava, Percutaneous Approach (ICD-10-PCS; 2020-02-15 15:45)
DX: O99.011 Anemia complicating pregnancy, first trimester (principal); D57.00 Hb-SS disease with crisis, unspecified; L02.412 Cutaneous abscess of left axilla; O16.1 Unspecified maternal hypertension, first trimester; O99.321 Drug use complicating pregnancy, first trimester; O99.711 Diseases of the skin and subcutaneous tissue complicating pregnancy, first trimester; E87.6 Hypokalemia; E83.42 Hypomagnesemia; B95.62 Methicillin resistant Staphylococcus aureus infection as the cause of diseases classified elsewhere; I87.2 Venous insufficiency (chronic) (peripheral); O99.281 Endocrine, nutritional and metabolic diseases complicating pregnancy, first trimester; F11.90 Opioid use, unspecified, uncomplicated; K21.9 Gastro-esophageal reflux disease without esophagitis; O99.611 Diseases of the digestive system complicating pregnancy, first trimester; Z11.59 Encounter for screening for other viral diseases; Z88.8 Allergy status to other drugs, medicaments and biological substances; Z88.1 Allergy status to other antibiotic agents; Z91.02 Food additives allergy status; Z91.011 Allergy to milk products; Z91.013 Allergy to seafood; Z3A.13 13 weeks gestation of pregnancy; Z79.899 Other long term (current) drug therapy
CPT/HCPCS: 1930; 36415; 36430; 36573; 71045; 76801; 77001; 80048; 80053; 80202; 82565; 83735; 84443; 84481; 84702; 85025; 85027; 85045; 86850; 86900; 86901; 86902; 86920; 87070; 87075; 87077; 87186; 87205; 87635; 93005; 93010; 96361; 96374; 99285; C1751; C1752; C9803; J1170; J1200; J1642; J1644; J2250; J2370; J2405; J2550; J2704; J2765; J3010; J3370; J3475; J3490; J7030; J7060; J7120; P9016

== ENCOUNTER 2020-03-01 13:10 | Outpatient (CLI) | payer MEDICAID ==
[2020-03-01 13:31] VITALS: BP 116/52
[2020-03-01] MEDS ORDERED: DIPHENHYDRAMINE HCL 50 MG/ML VIAL IV PRN (13:37)
[2020-03-01] MEDS ORDERED: HYDROMORPHONE HCL INJ/PF 2 MG/ML AMPULE IV PRN (13:38)
[2020-03-01] MEDS ORDERED: ONDANSETRON HCL INJ/PF 4 MG/2 ML SDV IV PRN (13:38)
[2020-03-01] MEDS ORDERED: NORMAL SALINE 1000 ML 1,000 ML IV PRN (13:39)
== END 2020-03-01 14:51 | disposition home or self-care (01) ==
LOC: II 13:10 → 5TH 13:12 → II 14:51
PROVIDERS: ATTEND Internal Medicine
DX: D57.00 Hb-SS disease with crisis, unspecified (principal); E86.0 Dehydration; R11.0 Nausea; R52 Pain, unspecified
CPT/HCPCS: 96374; 96375; 96361; J1200; J1170; J2405; J1642

== ENCOUNTER 2020-03-02 12:54 | Outpatient (CLI) | payer MEDICAID ==
[~2020-03-02 12:54] MED LIST changes: +DIPHENHYDRAMINE HCL 50 MG/ML VIAL IV PRN; -DIPHENHYDRAMINE HCL 50 MG/ML VIAL ONE; +HYDROMORPHONE HCL INJ/PF 2 MG/ML AMPULE IV PRN; +NORMAL SALINE 1000 ML 1,000 ML IV PRN; +ONDANSETRON HCL INJ/PF 4 MG/2 ML SDV IV PRN; -PHENYLEPHRINE HCL INJ/PF 10 MG/1 ML SDV ONE
[2020-03-02 13:38] VITALS: BP 110/56
== END 2020-03-02 14:30 | disposition home or self-care (01) ==
LOC: II 12:54 → 5TH 12:57 → II 14:30
PROVIDERS: ATTEND Internal Medicine
DX: D57.00 Hb-SS disease with crisis, unspecified (principal); E86.0 Dehydration; R11.0 Nausea; R52 Pain, unspecified
CPT/HCPCS: 96374; 96375; 96361; J1200; J1170; J2405; J1642

== ENCOUNTER 2020-03-03 13:14 | Outpatient (CLI) | payer MEDICAID ==
[2020-03-03 13:36] VITALS: BP 117/56
== END 2020-03-03 15:00 | disposition home or self-care (01) ==
LOC: II 13:14 → 5TH 14:44 → II 15:00
PROVIDERS: ATTEND Internal Medicine
DX: D57.00 Hb-SS disease with crisis, unspecified (principal); E86.0 Dehydration; R11.0 Nausea; R52 Pain, unspecified
CPT/HCPCS: 96374; 96375; 96361; J1200; J1170; J2405; J1642

== ENCOUNTER 2020-03-04 09:36 | Outpatient (CLI) | payer MEDICAID ==
[2020-03-04 10:01] VITALS: BP 128/65
[2020-03-04] MEDS ORDERED: NORMAL SALINE 1000 ML 1,000 ML IV ONE (10:45)
[2020-03-04] MEDS ORDERED: HYDROMORPHONE HCL INJ/PF 2 MG/ML AMPULE IV PRN (10:45)
[2020-03-04] MEDS ORDERED: ONDANSETRON HCL INJ/PF 4 MG/2 ML SDV IV PRN (10:45)
== END 2020-03-04 11:10 | disposition home or self-care (01) ==
LOC: II 09:36 → 5TH 09:39 → II 11:10
PROVIDERS: ATTEND Internal Medicine
DX: D57.00 Hb-SS disease with crisis, unspecified (principal); E86.0 Dehydration
CPT/HCPCS: 96360; J1642

== ENCOUNTER → 2020-03-07 | Outpatient (CLI) | payer MEDICAID ==
[~2020-03-07] MED LIST changes: -DIPHENHYDRAMINE HCL 50 MG/ML VIAL IV PRN; +DIPHENHYDRAMINE HCL 50 MG/ML VIAL ONE; -HYDROMORPHONE HCL INJ/PF 2 MG/ML AMPULE IV PRN; +HYDROMORPHONE HCL INJ/PF 2 MG/ML AMPULE ONE; -ONDANSETRON HCL INJ/PF 4 MG/2 ML SDV IV PRN; +ONDANSETRON HCL INJ/PF 4 MG/2 ML SDV ONE
[2020-03-07 14:37] VITALS: BP 123/79
== END ==
LOC: ASU 13:19
PROVIDERS: ATTEND Internal Medicine
DX: D57.00 Hb-SS disease with crisis, unspecified (principal); E86.0 Dehydration; R11.0 Nausea; R52 Pain, unspecified
CPT/HCPCS: 96374; 96375; 96361; J1200; J1170; J2405; J1642

== ENCOUNTER 2020-03-09 12:18 | Outpatient (CLI) | payer MEDICAID ==
[~2020-03-09 12:18] MED LIST changes: +DIPHENHYDRAMINE HCL 50 MG/ML VIAL IV PRN; -DIPHENHYDRAMINE HCL 50 MG/ML VIAL ONE; +HYDROMORPHONE HCL INJ/PF 2 MG/ML AMPULE IV PRN; -HYDROMORPHONE HCL INJ/PF 2 MG/ML AMPULE ONE; +ONDANSETRON HCL INJ/PF 4 MG/2 ML SDV IV PRN; -ONDANSETRON HCL INJ/PF 4 MG/2 ML SDV ONE
[2020-03-09 14:47] VITALS: BP 119/63
== END 2020-03-09 14:30 | disposition home or self-care (01) ==
LOC: II 12:18 → 5TH 12:19 → II 14:30
PROVIDERS: ATTEND Internal Medicine
DX: D57.00 Hb-SS disease with crisis, unspecified (principal); E86.0 Dehydration; R11.0 Nausea; R52 Pain, unspecified
CPT/HCPCS: 96374; 96375; 96361; J1200; J1170; J2405; J1642

== ENCOUNTER 2020-03-14 09:54 | Outpatient (CLI) | payer MEDICAID ==
[2020-03-14] MEDS ORDERED: NORMAL SALINE 1000 ML 1,000 ML IV PRN (10:09)
[2020-03-14] MEDS ORDERED: DIPHENHYDRAMINE HCL 50 MG/ML VIAL IV ONE (10:15)
[2020-03-14 10:24] VITALS: BP 111/74
[2020-03-14] MEDS ORDERED: HYDROMORPHONE HCL INJ/PF 2 MG/ML AMPULE IV ONE (10:30)
[2020-03-14] MEDS ORDERED: ONDANSETRON HCL INJ/PF 4 MG/2 ML SDV IV ONE (10:30)
== END 2020-03-14 12:46 | disposition home or self-care (01) ==
LOC: II 09:54 → 2S 09:57 → II 12:46
PROVIDERS: ATTEND Internal Medicine
DX: D57.00 Hb-SS disease with crisis, unspecified (principal); E86.0 Dehydration; R11.0 Nausea; R52 Pain, unspecified
CPT/HCPCS: 96374; 96375; 96361; J1200; J1170; J2405; J7030; J1642

== ENCOUNTER 2020-03-16 12:42 | Outpatient (CLI) | payer MEDICAID ==
[2020-03-16 13:01] VITALS: BP 129/57
== END 2020-03-16 14:16 | disposition home or self-care (01) ==
LOC: II 12:42 → 5TH 12:55 → II 14:16
PROVIDERS: ATTEND Internal Medicine
DX: D57.00 Hb-SS disease with crisis, unspecified (principal); E86.0 Dehydration; R11.0 Nausea; R52 Pain, unspecified
CPT/HCPCS: 96374; 96375; 96361; J1200; J1170; J2405; J1642

== ENCOUNTER 2020-03-18 10:07 | Outpatient (CLI) | payer MEDICAID ==
[2020-03-18] MEDS ORDERED: ONDANSETRON HCL INJ/PF 4 MG/2 ML SDV IV PRN (10:28)
[2020-03-18] MEDS ORDERED: DIPHENHYDRAMINE HCL 50 MG/ML VIAL IV PRN (10:28)
[2020-03-18] MEDS ORDERED: HYDROMORPHONE HCL INJ/PF 2 MG/ML AMPULE IV PRN (10:29)
[2020-03-18] MEDS ORDERED: NORMAL SALINE 1000 ML 1,000 ML IV PRN (10:29)
[2020-03-18 10:36] VITALS: BP 118/66
== END 2020-03-18 11:45 | disposition home or self-care (01) ==
LOC: II 10:07 → 5TH 10:10 → II 11:45
PROVIDERS: ATTEND Internal Medicine
DX: D57.00 Hb-SS disease with crisis, unspecified (principal); E86.0 Dehydration; R11.0 Nausea; R52 Pain, unspecified
CPT/HCPCS: 96374; 96375; 96361; J1200; J1170; J2405; J1642

== ENCOUNTER → 2020-03-21 | Outpatient (CLI) | payer MEDICAID ==
[~2020-03-21] MED LIST changes: +DIPHENHYDRAMINE HCL 50 MG/ML VIAL ONE; +HYDROMORPHONE HCL INJ/PF 2 MG/ML AMPULE ONE; +NORMAL SALINE 10 ML SDV (AFTER EACH USE) IV PRN; +NORMAL SALINE 10 ML SDV (SCHEDULED) IV SCH; +ONDANSETRON HCL INJ/PF 4 MG/2 ML SDV ONE
[2020-03-21 14:11] VITALS: BP 120/72
== END ==
LOC: ASU 12:30
PROVIDERS: ATTEND Internal Medicine
DX: D57.00 Hb-SS disease with crisis, unspecified (principal); E86.0 Dehydration; R11.0 Nausea; R52 Pain, unspecified
CPT/HCPCS: 96374; 96375; 96361; J1200; J1170; J2405; J1642; 96365

== ENCOUNTER 2020-03-24 10:24 | Outpatient (CLI) | payer MEDICAID ==
[~2020-03-24 10:24] MED LIST changes: -DIPHENHYDRAMINE HCL 50 MG/ML VIAL ONE; -HYDROMORPHONE HCL INJ/PF 2 MG/ML AMPULE ONE; -NORMAL SALINE 10 ML SDV (AFTER EACH USE) IV PRN; -NORMAL SALINE 10 ML SDV (SCHEDULED) IV SCH; -ONDANSETRON HCL INJ/PF 4 MG/2 ML SDV ONE
[2020-03-24 10:33] VITALS: BP 129/54
== END 2020-03-24 12:00 | disposition home or self-care (01) ==
LOC: II 10:24 → 5TH 10:28 → II 12:00
PROVIDERS: ATTEND Internal Medicine
DX: D57.00 Hb-SS disease with crisis, unspecified (principal); E86.0 Dehydration; R11.0 Nausea; R52 Pain, unspecified
CPT/HCPCS: 96360; J1642

== ENCOUNTER 2020-03-25 10:08 | Outpatient (CLI) | payer MEDICAID ==
[2020-03-25 10:47] VITALS: BP 122/63
== END 2020-03-25 12:43 | disposition home or self-care (01) ==
LOC: II 10:08 → 5TH 10:11 → II 12:43
PROVIDERS: ATTEND Internal Medicine
DX: D57.00 Hb-SS disease with crisis, unspecified (principal); E86.0 Dehydration; R11.0 Nausea; R52 Pain, unspecified
CPT/HCPCS: 96374; 96375; 96361; J1200; J1170; J2405; J1642

== ENCOUNTER 2020-03-30 11:32 | Outpatient (CLI) | payer MEDICAID ==
[2020-03-30] MEDS ORDERED: NORMAL SALINE 1000 ML 1,000 ML IV PRN (11:43)
[2020-03-30 11:50] VITALS: BP 123/70
[2020-03-30] MEDS ORDERED: HYDROMORPHONE HCL INJ/PF 2 MG/ML AMPULE IV ONE (12:00)
[2020-03-30] MEDS ORDERED: DIPHENHYDRAMINE HCL 50 MG/ML VIAL IV ONE (12:00)
[2020-03-30] MEDS ORDERED: ONDANSETRON HCL INJ/PF 4 MG/2 ML SDV IV ONE (12:00)
== END 2020-03-30 13:16 | disposition home or self-care (01) ==
LOC: II 11:32 → 5TH 11:36 → II 13:16
PROVIDERS: ATTEND Internal Medicine
DX: D57.00 Hb-SS disease with crisis, unspecified (principal); E86.0 Dehydration; R11.0 Nausea; R52 Pain, unspecified
CPT/HCPCS: 96374; 96375; 96361; J1200; J1170; J2405; J1642

== ENCOUNTER 2020-04-01 11:17 | Emergency (ER) | payer MEDICAID ==
[2020-04-01] MEDS ORDERED: ERTAPENEM SODIUM INJ 1 GM VIAL IV ONE (11:45)
--- NOTE | 2020-04-01 11:49 | ER Document Report ---
ED Medical Screen (RME) - General Chief Complaint: Abnormal Lab Results Stated Complaint: ABNORMAL LABS Time Seen by Provider: 04/01/20 11:44 Primary Care Provider: BRUNA MENJIVAR MD [Primary Care Provider] - Follow up as needed Notes: Patient is a 29-year-old female with a history of sickle cell who is currently 20 weeks who presents emergency department with a chief complaint of abnormal blood work. She is a patient of Dr. Menjivar and states that she had blood cultures drawn yesterday which did show negative Gram rods. Patient sent here for evaluation and transfer to [facility]. TRAVEL OUTSIDE OF THE [place] IN LAST 30 DAYS: No - Related Data Allergies/Adverse Reactions: ceftriaxone sodium [From Rocephin] Allergy (Verified 02/12/20 16:37) Cephalosporins Allergy (Verified 02/12/20 16:37) milk [Milk] Allergy (Verified 02/12/20 16:37) Shellfish * [Shellfish] Allergy (Verified 02/12/20 16:37) wheat [Wheat] Allergy (Verified 02/12/20 16:37) Past Medical History - Social History Family history: None, Reviewed & Not Pertinent - Past Medical History Cardiac Medical History: Reports: Hx Hypertension, Hx Heart Murmur Denies: Hx Coronary Artery Disease, Hx Heart Attack Pulmonary Medical History: Reports: Hx Asthma, Hx Pneumonia - 10/03 Denies: Hx Bronchitis, Hx COPD, Hx Tuberculosis Neurological Medical History: Reports: Hx Migraine, Hx Seizures. Denies: Hx Cerebrovascular Accident Endocrine Medical History: Denies: Hx Diabetes Mellitus Type 1, Hx Diabetes Mellitus Type 2, Hx Hyperthyroidism, Hx Hypothyroidism Renal/ Medical History: Denies: Hx Peritoneal Dialysis GI Medical History: Reports: Hx Gastroesophageal Reflux Disease. Denies: Hx Cirrhosis, Hx Hepatitis Musculoskeltal Medical History: Denies Hx Arthritis, Denies Hx Fibromyalgia, Denies Hx Gout Skin Medical History: Denies Hx Eczema, Reports Hx MRSA, Denies Hx Psoriasis Psychiatric Medical History: Reports: Hx Depression Infectious Medical History: Denies: Hx Hepatitis Past Surgical History: Reports: Hx Adenoidectomy, Hx Cholecystectomy, Hx Oral Surgery - growth removed from under tongue, Hx Tonsillectomy, Other - Port placement 2 and removal for infection, multiple PICC & central lines. Denies: Hx Hysterectomy, Hx Kidney (Renal Surgery), Hx Pacemaker - Immunizations Hx Diphtheria, Pertussis, Tetanus Vaccination: Yes Physical Exam - Vital signs Vitals: Temp Pulse Resp BP Pulse Ox 98.1 F 73 18 122/59 L 100 04/01/20 11:22 04/01/20 11:22 04/01/20 11:22 04/01/20 11:22 04/01/20 11:22 Course - Re-evaluation Re-evalutation: 04/01/20 11:49 Patient's not febrile or tachycardic here in triage. Will initiate basic labs as well as a type and cross and blood cultures per Dr. Menjivar order. He also would like Invanz 1 g started. I have greeted and performed a rapid initial assessment of this patient. A comprehensive ED assessment and evaluation of the patient, analysis of test results and completion of the medical decision making process will be conducted by additional ED providers. - Vital Signs Vital signs: Temp Pulse Resp BP Pulse Ox 98.1 F 73 18 122/59 L 100 04/01/20 11:22 04/01/20 11:22 04/01/20 11:22 04/01/20 11:22 04/01/20 11:22 Doctor's Discharge - Discharge Referrals: BRUNA MENJIVAR MD [Primary Care Provider] - Follow up as needed
[2020-04-01 12:39] LABS: ABSOLUTE BASOPHILS # (AUTO) 0.1 10^3/uL (0.0-0.2); ABSOLUTE EOSINOPHILS # (AUTO) 0.1 10^3/uL (0.0-0.6); ABSOLUTE LYMPHOCYTES (AUTO) 1.5 10^3/uL (0.5-4.7); ABSOLUTE MONOCYTES (AUTO) 0.4 10^3/uL (0.1-1.4); ABSOLUTE NEUT (AUTO) 7.9 10^3/uL (1.7-8.2); BASOPHILS % (AUTO) 1.3 % (0-2); EOSINOPHILS % (AUTO) 0.7 % (0-6); HEMATOCRIT 25.6 % (36.0-47.0); HEMOGLOBIN 8.9 g/dL (12.0-15.5); LYMPHOCYTES % (AUTO) 15.4 % (13-45); MEAN CORPUSCULAR HEMOGLOBIN 30.2 pg (27.0-33.4); MEAN CORPUSCULAR HGB CONC 34.9 g/dL (32.0-36.0); MONOCYTES % (AUTO) 3.6 % (3-13); PLATELET COUNT 486 10^3/uL (150-450); RED BLOOD COUNT 2.95 10^6/uL (3.72-5.28); RED CELL DISTRIBUTION WIDTH 16.6 % (11.5-14.0); TOTAL CELLS COUNTED % (AUTO) 100 %
[2020-04-01 12:45] LABS: ALBUMIN 3.5 g/dL (3.5-5.0); ALKALINE PHOSPHATASE 76 U/L (38-126); ANION GAP 9 (5-19); ASPARTATE AMINO TRANSFERASE 33 U/L (14-36); BILIRUBIN,DIRECT 0.4 mg/dL (0.0-0.4); BILIRUBIN,TOTAL 1.3 mg/dL (0.2-1.3); CALCIUM 8.9 mg/dL (8.4-10.2); CARBON DIOXIDE 25 mmol/L (22-30); CHLORIDE 104 mmol/L (98-107); GLUCOSE 125 mg/dL (75-110); POTASSIUM 3.3 mmol/L (3.6-5.0); TOTAL PROTEIN 6.6 g/dL (6.3-8.2)
[2020-04-01 12:51] LABS: BLOOD UREA NITROGEN < 2 mg/dL (7-20)
[2020-04-01 13:08] LABS: MEAN CORPUSCULAR VOLUME 87 fl (80-97)
[2020-04-01 14:28] LABS: ABSOLUTE RETICS # 0.191 10^6/uL (0.028-0.122); RETICULOCYTE COUNT (AUTO) 6.46 % (0.66-2.85)
--- NOTE | 2020-04-01 15:19 | ER Document Report ---
ED General - General Chief Complaint: Abnormal Lab Results Stated Complaint: ABNORMAL LABS Time Seen by Provider: 04/01/20 11:44 Primary Care Provider: BRUNA CORNELIUS MD [ACTIVE STAFF] - Follow up as needed Information source: Patient Notes: 04/01/20 11:37 - ED Nursing Note by ROLO DAY Acct Num: [id number] : 1990 Patient Age: 29 Pt presents from PCP office to be transferred to [place] per PCP d/t infection in port. Providers aware. Mother with pt. Pt is breathing even and unlabored at this time. 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 She is a patient of Dr. Cornelius and states that she had blood cultures drawn yesterday which did show negative Gram rods. Patient sent here for evaluation and transfer to [facility]. TRAVEL OUTSIDE OF THE [place] IN LAST 30 DAYS: No MY NOTES 29-year-old black female arrives with positive gram-negative blood culture. She has Dr. Daugherty's patient and is a sickle cell patient who is 20 weeks gravid. She is followed by [facility] as well. She reports she wants no and was because the last time she took an ambulance they intubated her. Patient also received 1 g of Invanz IV per direction of Dr. Daugherty via telephone instructions to nursing staff. Patient currently wants some pain medication. She had "in the past right sided chest power ports which became infected with the first within 1 month and the second within 10 days." She now has a left-sided dialysis port. I spoke with Dr. Enamorado at 0634 and he advises transfer without any blood transfusion and transfer to [facility]. I spoke with Dr. Rose at 1538 at [phone] Enamorado carlito he is a oncologist code enforcement inspector. She says she is not the admitting doctor but will find someone who is. The patient's H&H are 8.9 and 25.6 with platelets 4 86,000 with 6.46 reticulocyte count. Patient has a potassium of 3.3. Her other chemistries are within normal limits. Her vital signs are within normal limits. Call back from Dr. Alex keller at 1542 advised us to transfer the patient by [facility] transfer unit. I spoke with [facility] transfer center at 1544. I spoke with Dr. NAVA's hematology oncology via [place] at the transfer center at [facility] around 1620 and he advised he knows about the hematology side of this patient but would refer back to OB because of the high risk nature of her disease. Also he advised Dr. Reid had spoken with the patient the prior day via the virtual patient Dr. ritchie pro. He advised her to come immediately to [place] but she had no ride. Today her mother Wilda can drive her. I spoke with Dr. Puildo OB doctor and she accepts the patient at anti- unit OB section. I delivered this with [facility] placement specialist at [facility]. Also the nurse was advised to call report to the OB floor prior to patient's discharge. TRAVEL OUTSIDE OF THE [place] IN LAST 30 DAYS: No - Related Data Allergies/Adverse Reactions: ceftriaxone sodium [From Rocephin] Allergy (Verified 02/12/20 16:37) Cephalosporins Allergy (Verified 02/12/20 16:37) milk [Milk] Allergy (Verified 02/12/20 16:37) Shellfish * [Shellfish] Allergy (Verified 02/12/20 16:37) wheat [Wheat] Allergy (Verified 02/12/20 16:37) Past Medical History - Social History Smoking Status: Never Smoker Family History: None, DM, Malignancy - Past Medical History Cardiac Medical History: Reports: Hx Hypertension, Hx Heart Murmur Denies: Hx Coronary Artery Disease, Hx Heart Attack Pulmonary Medical History: Reports: Hx Asthma, Hx Pneumonia - 10/03 Denies: Hx Bronchitis, Hx COPD, Hx Tuberculosis Neurological Medical History: Reports: Hx Migraine, Hx Seizures. Denies: Hx Cerebrovascular Accident Endocrine Medical History: Denies: Hx Diabetes Mellitus Type 1, Hx Diabetes Mellitus Type 2, Hx Hyperthyroidism, Hx Hypothyroidism Renal/ Medical History: Denies: Hx Peritoneal Dialysis GI Medical History: Reports: Hx Gastroesophageal Reflux Disease. Denies: Hx Cirrhosis, Hx Hepatitis Musculoskeletal Medical History: Denies Hx Arthritis, Denies Hx Fibromyalgia, Denies Hx Gout Skin Medical History: Denies Hx Eczema, Reports Hx MRSA, Denies Hx Psoriasis Psychiatric Medical History: Reports: Hx Depression Infectious Medical History: Denies: Hx Hepatitis Past Surgical History: Reports: Hx Adenoidectomy, Hx Cholecystectomy, Hx Oral Surgery - growth removed from under tongue, Hx Tonsillectomy, Other - Port placement 2 and removal for infection, multiple PICC & central lines. Denies: Hx Hysterectomy, Hx Kidney (Renal Surgery), Hx Pacemaker - Immunizations Hx Diphtheria, Pertussis, Tetanus Vaccination: Yes Hx Pneumococcal Vaccination: 07/08/11 Physical Exam - Vital signs Vitals: Temp Pulse Resp BP Pulse Ox 98.1 F 73 18 122/59 L 100 04/01/20 11:22 04/01/20 11:22 04/01/20 11:22 04/01/20 11:22 04/01/20 11:22 Interpretation: Normal - General General appearance: Appears well, Alert - HEENT Head: Normocephalic, Atraumatic Eyes: Normal Pupils: PERRL Mouth/Lips: Normal Mucous membranes: Normal Pharynx: Normal Neck: Normal - Respiratory Respiratory status: No respiratory distress Chest status: Nontender Breath sounds: Normal Chest palpation: Normal - Cardiovascular Rhythm: Regular Heart sounds: Normal auscultation Murmur: No - Abdominal Inspection: Normal Distension: No distension Bowel sounds: Normal Tenderness: Nontender Organomegaly: No organomegaly - Rectal Hemorrhoids: Other - deferred - Genitourinary Bimanuel exam: Other - deferred - Back Back: Normal, Nontender - Extremities General upper extremity: Normal inspection, Nontender, Normal color, Normal ROM, Normal temperature General lower extremity: Normal inspection, Nontender, Normal color, Normal ROM, Normal temperature, Normal weight bearing. No: Charo's sign - Neurological Neuro grossly intact: Yes Cognition: Normal Orientation: AAOx4 [place] Coma Scale Eye Opening: Spontaneous [place] Coma Scale Verbal: Oriented [place] Coma Scale Motor: Obeys Commands [place] Coma Scale Total: 15 Speech: Normal Motor strength normal: LUE, RUE, LLE, RLE Sensory: Normal - Psychological Associated symptoms: Normal affect, Normal mood - Skin Skin Temperature: Warm Skin Moisture: Dry Course - Vital Signs Vital signs: Temp Pulse Resp BP Pulse Ox 98.1 F 73 19 112/73 99 04/01/20 11:22 04/01/20 11:22 04/01/20 15:00 04/01/20 15:00 04/01/20 15:00 - Laboratory Result Diagrams: 04/01/20 11:59 04/01/20 11:59 Laboratory results interpreted by me: 04/01/20 04/01/20 04/01/20 11:59 11:59 11:59 RBC 2.95 L Hgb 8.9 L Hct 25.6 L RDW 16.6 H Plt Count 486 H Reticulocyte # 0.191 H Seg Neutrophils % 79.0 H Retic Count (auto) 6.46 H Potassium 3.3 L BUN < 2 L Creatinine 0.39 L Glucose 125 H Critical Care Note - Critical Care Note Comments: I went to the patient's room at [facility] after speaking to several people at [facility] for transfer. Evidently the patient had left here by wheelchair with her mother. Therefore this will be a AMA. Discharge - Discharge Clinical Impression: Sickle cell anemia of mother during High risk due to history of labor Qualifiers: Trimester: second trimester Qualified Code(s): O09.212 - Supervision of with history of pre-term labor, second trimester Condition: Good Disposition: HOME, SELF-CARE Additional Instructions: I advised you to go immediately to the OB antepartum floor with Dr. Pulido and drive safely. You desire to go by private vehicle. We have advised you to use transport team and we have advised of the pros and cons of going by POV. Referrals: BRUNA CORNELIUS MD [ACTIVE STAFF] - Follow up as needed
[2020-04-01] MEDS ORDERED: HYDROMORPHONE HCL INJ/PF 2 MG/ML AMPULE IV ONE (15:34)
[2020-04-01] MEDS ORDERED: DIPHENHYDRAMINE HCL 50 MG/ML VIAL IV ONE (15:35)
[2020-04-01] MEDS ORDERED: PROMETHAZINE HCL INJ 25 MG/1 ML VIAL IV ONE (15:35)
[2020-04-01 17:02] VITALS: BP 128/66
== END 2020-04-01 16:40 | disposition home or self-care (01) ==
LOC: ER 11:17
DX: O99.012 Anemia complicating pregnancy, second trimester (principal); D57.1 Sickle-cell disease without crisis; O09.12 Supervision of pregnancy with history of ectopic pregnancy, second trimester; O16.2 Unspecified maternal hypertension, second trimester; O99.512 Diseases of the respiratory system complicating pregnancy, second trimester; J45.909 Unspecified asthma, uncomplicated; Z3A.20 20 weeks gestation of pregnancy; Z88.1 Allergy status to other antibiotic agents; Z91.011 Allergy to milk products; Z91.013 Allergy to seafood; Z91.018 Allergy to other foods
CPT/HCPCS: 99284; 96375; 96365; 86900; 86901; 36415; 87040; 86850; 85025; 87077; 85045; 80053; 87186; 87150 ×26; J1200; J1335; J1170; J2550

== ENCOUNTER 2020-05-16 11:07 | Emergency (ER) | payer MEDICAID ==
--- NOTE | 2020-05-16 11:57 | ER Document Report ---
ED Medical Screen (RME) - General Chief Complaint: Abdominal Pain Stated Complaint: ABDOMINAL PAIN RECTAL BLEEDING Time Seen by Provider: 05/16/20 11:52 Primary Care Provider: AMALIA OROZCO PA-C [Primary Care Provider] - Follow up as needed Mode of Arrival: Wheelchair Information source: Patient Notes: 29-year-old female patient with history of sickle cell disease presenting to the emergency department with abdominal pain in the setting of . Patient was apparently at her [employer] today, they sent her to the emergency department for work-up for sickle cell crisis as well as monitoring. Patient reports she has been having bloody diarrhea for the last 2 days. She denies any vomiting. Patient appears to be in moderate discomfort, she is rubbing her abdomen. She denies passage of any fluid from the vagina. Charge nurse aware of patient's presence in the department. I have greeted and performed a rapid initial assessment of this patient. A c omprehensive ED assessment and evaluation of the patient, analysis of test results and completion of the medical decision making process will be conducted by additional ED providers. I have specifically instructed the patient or family members with the patient to immediately return to any nursing staff should anything change in the patient's condition or with their chief complaint. TRAVEL OUTSIDE OF THE [place] IN LAST 30 DAYS: No - Related Data Allergies/Adverse Reactions: ceftriaxone sodium [From Rocephin] Allergy (Verified 02/12/20 16:37) Cephalosporins Allergy (Verified 02/12/20 16:37) milk [Milk] Allergy (Verified 02/12/20 16:37) Shellfish * [Shellfish] Allergy (Verified 02/12/20 16:37) wheat [Wheat] Allergy (Verified 02/12/20 16:37) Home Medications: folic acid. baby aspirin. zofran. phenergan. vitalmins Past Medical History - Social History Chew tobacco use (# tins/day): No Frequency of alcohol use: None Drug Abuse: None Family history: None, Reviewed & Not Pertinent - Past Medical History Cardiac Medical History: Reports: Hx Hypertension, Hx Heart Murmur Denies: Hx Coronary Artery Disease, Hx Heart Attack Pulmonary Medical History: Reports: Hx Asthma, Hx Pneumonia - 10/03 Denies: Hx Bronchitis, Hx COPD, Hx Tuberculosis Neurological Medical History: Reports: Hx Migraine, Hx Seizures. Denies: Hx Cerebrovascular Accident Endocrine Medical History: Denies: Hx Diabetes Mellitus Type 1, Hx Diabetes Me llitus Type 2, Hx Hyperthyroidism, Hx Hypothyroidism Renal/ Medical History: Denies: Hx Peritoneal Dialysis GI Medical History: Reports: Hx Gastroesophageal Reflux Disease. Denies: Hx Cirrhosis, Hx Hepatitis Musculoskeltal Medical History: Denies Hx Arthritis, Denies Hx Fibromyalgia, Denies Hx Gout Skin Medical History: Denies Hx Eczema, Reports Hx MRSA, Denies Hx Psoriasis Psychiatric Medical History: Reports: Hx Depression Infectious Medical History: Denies: Hx Hepatitis Past Surgical History: Reports: Hx Adenoidectomy, Hx Cholecystectomy, Hx Oral Surgery - growth removed from under tongue, Hx Tonsillectomy, Other - Port placement 2 and removal for infection, multiple PICC & central lines. Denies: Hx Hysterectomy, Hx Kidney (Renal Surgery), Hx Pacemaker - Immunizations Hx Diphtheria, Pertussis, Tetanus Vaccination: Yes Physical Exam - Vital signs Vitals: Temp Pulse Resp BP Pulse Ox 98.3 F 78 18 117/46 L 100 05/16/20 11:11 05/16/20 11:11 05/16/20 11:11 05/16/20 11:11 05/16/20 11:11 Course - Vital Signs Vital signs: Temp Pulse Resp BP Pulse Ox 98.3 F 78 18 117/46 L 100 05/16/20 11:11 05/16/20 11:11 05/16/20 11:11 05/16/20 11:11 05/16/20 11:11 Doctor's Discharge - Discharge Referrals: AMALIA OROZCO PA-C [Primary Care Provider] - Follow up as needed
[2020-05-16] MEDS ORDERED: NORMAL SALINE 1000 ML 1,000 ML IV ONE (12:04)
[2020-05-16 12:55] LABS: ALKALINE PHOSPHATASE 112 U/L (38-126); ANION GAP 9 (5-19); ASPARTATE AMINO TRANSFERASE 52 U/L (14-36); BILIRUBIN,DIRECT 0.1 mg/dL (0.0-0.4); BILIRUBIN,TOTAL 1.9 mg/dL (0.2-1.3); BLOOD UREA NITROGEN 4 mg/dL (7-20); CALCIUM 9.3 mg/dL (8.4-10.2); CARBON DIOXIDE 20 mmol/L (22-30); CHLORIDE 109 mmol/L (98-107); GLUCOSE 85 mg/dL (75-110); POTASSIUM 4.3 mmol/L (3.6-5.0); TOTAL PROTEIN 7.4 g/dL (6.3-8.2)
[2020-05-16 12:56] LABS: ABSOLUTE RETICS # 0.237 10^6/uL (0.028-0.122); HEMOGLOBIN 10.3 g/dL (12.0-15.5); MEAN CORPUSCULAR HEMOGLOBIN 30.6 pg (27.0-33.4); MEAN CORPUSCULAR HGB CONC 35.6 g/dL (32.0-36.0); MEAN CORPUSCULAR VOLUME 86 fl (80-97); PLATELET COUNT 268 10^3/uL (150-450); RED BLOOD COUNT 3.37 10^6/uL (3.72-5.28); RED CELL DISTRIBUTION WIDTH 18.9 % (11.5-14.0); RETICULOCYTE COUNT (AUTO) 7.02 % (0.66-2.85); WHITE BLOOD COUNT 14.7 10^3/uL (4.0-10.5)
[2020-05-16 13:24] LABS: ABSOLUTE LYMPHOCYTES# (MANUAL) 1.3 10^3/uL (0.5-4.7); ABSOLUTE MONOCYTES # (MANUAL) 0.9 10^3/uL (0.1-1.4); BASOPHILS % (MANUAL) 0 % (0-2); EOSINOPHILS % (MANUAL) 0 % (0-6); LYMPHOCYTES % (MANUAL) 9 % (13-45); MONOCYTES % (MANUAL) 6 % (3-13); SEGMENTED NEUTROPHILS % (MAN) 85 % (42-78); TOTAL CELLS COUNTED 100
[2020-05-16 13:25] LABS: ANISOCYTOSIS 2+; PAPPENHEIMER BODIES PRESENT; PLATELET COMMENT ADEQUATE; POIKILOCYTOSIS 1+; POLYCHROMASIA SLIGHT; SICKLE RED CELLS 1+
[2020-05-16] MEDS ORDERED: HYDROMORPHONE HCL INJ/PF 2 MG/ML AMPULE IV ONE ×2 (14:13→17:00)
[2020-05-16] MEDS ORDERED: ONDANSETRON HCL INJ/PF 4 MG/2 ML SDV IV ONE (14:14)
--- NOTE | 2020-05-16 14:20 | ER Document Report ---
ED General - General Chief Complaint: Abdominal Pain Stated Complaint: ABDOMINAL PAIN RECTAL BLEEDING Time Seen by Provider: 05/16/20 11:52 Primary Care Provider: AMALIA OROZCO PA-C [Primary Care Provider] - Follow up as needed Mode of Arrival: Wheelchair Information source: Patient Notes: Patient is a 29-year-old -[place] female with sickle cell disease who presents today with abdominal pain that started last night. She is 26 weeks . She says that she is having bright red blood per rectum. She was seen by Dr. Dutta in the OB group and sent over here to have her checked out for a possible pain crisis. Patient denies having a fever and chills. Denies all over body pain. Denies vomiting and diarrhea. TRAVEL OUTSIDE OF THE [place] IN LAST 30 DAYS: No - Related Data Allergies/Adverse Reactions: ceftriaxone sodium [From Rocephin] Allergy (Verified 02/12/20 16:37) Cephalosporins Allergy (Verified 02/12/20 16:37) milk [Milk] Allergy (Verified 02/12/20 16:37) Shellfish * [Shellfish] Allergy (Verified 02/12/20 16:37) wheat [Wheat] Allergy (Verified 02/12/20 16:37) Home Medications: folic acid. baby aspirin. zofran. phenergan. vitalmins Past Medical History - General Information source: Patient - Social History Smoking Status: Never Smoker Chew tobacco use (# tins/day): No Frequency of alcohol use: None Drug Abuse: None Family History: None, DM, Malignancy - Past Medical History Cardiac Medical History: Reports: Hx Hypertension, Hx Heart Murmur Denies: Hx Coronary Artery Disease, Hx Heart Attack Pulmonary Medical History: Reports: Hx Asthma, Hx Pneumonia - 10/03 Denies: Hx Bronchitis, Hx COPD, Hx Tuberculosis Neurological Medical History: Reports: Hx Migraine, Hx Seizures. Denies: Hx Cerebrovascular Accident Endocrine Medical History: Denies: Hx Diabetes Mellitus Type 1, Hx Diabetes Rosalinda litus Type 2, Hx Hyperthyroidism, Hx Hypothyroidism Renal/ Medical History: Denies: Hx Peritoneal Dialysis GI Medical History: Reports: Hx Gastroesophageal Reflux Disease. Denies: Hx Cirrhosis, Hx Hepatitis Musculoskeletal Medical History: Denies Hx Arthritis, Denies Hx Fibromyalgia, Denies Hx Gout Skin Medical History: Denies Hx Eczema, Reports Hx MRSA, Denies Hx Psoriasis Psychiatric Medical History: Reports: Hx Depression Infectious Medical History: Denies: Hx Hepatitis Past Surgical History: Reports: Hx Adenoidectomy, Hx Cholecystectomy, Hx Oral Surgery - growth removed from under tongue, Hx Tonsillectomy, Other - Port placement 2 and removal for infection, multiple PICC & central lines. Denies: Hx Hysterectomy, Hx Kidney (Renal Surgery), Hx Pacemaker - Immunizations Hx Diphtheria, Pertussis, Tetanus Vaccination: Yes Hx Pneumococcal Vaccination: 07/08/11 Review of Systems - Review of Systems Notes: Constitutional: No fevers. No chills. EENT: No eye redness. No eye pain. No ear pain. No sore throat. Cardiovascular: No chest pain. No palpitations. Respiratory: No cough. No shortness of breath. No respiratory distress. Gastrointestinal: +abdominal pain. +nausea -vomiting/diarrhea. +rectal bleed Genitourinary: Atraumatic. No lesions. No pain. No discharge. Musculoskeletal: Atraumatic. No swelling. No deformities. Skin: No rash or lesions. Lymphatic: No swollen lymph nodes. Neurologic: No headache. No syncope. Psychiatric: No suicidal or homicidal ideation. Physical Exam - Vital signs Vitals: Temp Pulse Resp BP Pulse Ox 98.3 F 78 18 117/46 L 100 05/16/20 11:11 05/16/20 11:11 05/16/20 11:11 05/16/20 11:11 05/16/20 11:11 - Notes Notes: General: Visibly . Looks very uncomfortable. Nontoxic appearing Cardiac: Well-perfused. Regular rate and rhythm. No murmurs, rubs, or gallops. Pulmonary: No respiratory distress. No cyanosis. Bilateral lung babcock are clear to auscultation. Abdominal: Gravid abdomen. Diffuse tenderness to palpation. No guarding or rebound. HEENT: Head is atraumatic. Conjunctivae not reddened. No tearing. PERRL. EOMI. Orbits atraumatic. No periorbital swelling or erythema. Oropharynx is without erythema, swelling, or exudates. Mildly icteric sclerae Neck: Supple. No adenopathy. No meningismus. Dermatologic: Warm with good turgor. No rash. Atraumatic. Chest: Atraumatic. No chest wall tenderness to palpation. Musculoskeletal: Moves all extremities well. No range of motion deficits. no muscular or joint tenderness. No paraspinal muscle tenderness. no midline spinal tenderness or step-off. Genitourinary: Examination deferred Neurologic: No gross neurologic deficits. Psychiatric: Normal mood. Course - Re-evaluation Re-evalutation: 05/16/20 19:38 Patient is feeling some better after her third dose of pain medication. We gave this intramuscularly so that she would get a little bit longer analgesia instead of the IV form. She flagged me down from the hallway and told me that she was feeling better and was ready to go home. Case was discussed with Dr. Davey my ER attending. As long as patient is feeling better she can go home. - Vital Signs Vital signs: Temp Pulse Resp BP Pulse Ox 98.3 F 78 18 117/46 L 100 05/16/20 11:11 05/16/20 11:11 05/16/20 11:11 05/16/20 11:11 05/16/20 11:11 - Laboratory Result Diagrams: 05/16/20 12:21 05/16/20 12:21 Laboratory results interpreted by me: 05/16/20 05/16/20 12:21 12:21 WBC 14.7 H RBC 3.37 L Hgb 10.3 L Hct 29.0 L RDW 18.9 H Reticulocyte # 0.237 H Seg Neuts % (Manual) 85 H Lymphocytes % (Manual) 9 L Abs Neuts (Manual) 12.5 H Retic Count (auto) 7.02 H Chloride 109 H Carbon Dioxide 20 L BUN 4 L Creatinine 0.44 L Total Bilirubin 1.9 H AST 52 H Discharge - Discharge Clinical Impression: History of sickle cell disease Abdominal pain Qualifiers: Abdominal location: generalized Qualified Code(s): R10.84 - Generalized abdominal pain Diarrhea Qualifiers: Diarrhea type: unspecified type Qualified Code(s): R19.7 - Diarrhea, unspecified Qualifiers: Weeks of gestation: 26 weeks Qualified Code(s): Z3A.26 - 26 weeks gestation of Condition: Good Disposition: HOME, SELF-CARE Instructions: Abdominal Pain ([facility]), Sickle Cell Crisis ([facility]) Additional Instructions: Return at anytime to the emergency department if you have worsening of your symptoms. Referrals: AMALIA OROZCO PA-C [Primary Care Provider] - Follow up as needed
[2020-05-16] MEDS ORDERED: HYDROMORPHONE HCL INJ/PF 2 MG/ML AMPULE IM ONE (18:33)
[2020-05-16 20:14] VITALS: BP 109/44
== END 2020-05-16 20:14 | disposition home or self-care (01) ==
LOC: ER 11:07
DX: O26.892 Other specified pregnancy related conditions, second trimester (principal); R10.84 Generalized abdominal pain; R19.7 Diarrhea, unspecified; O99.012 Anemia complicating pregnancy, second trimester; D57.1 Sickle-cell disease without crisis; Z3A.26 26 weeks gestation of pregnancy; Z88.8 Allergy status to other drugs, medicaments and biological substances; Z79.82 Long term (current) use of aspirin; Z79.899 Other long term (current) drug therapy; I10 Essential (primary) hypertension; J45.909 Unspecified asthma, uncomplicated
CPT/HCPCS: 96376; 99284; 96372; 96361; 96374; 96375; 36415; 85025; 85045; 80053; J1170; J2405; J7030

== ENCOUNTER 2020-06-06 11:33 | Emergency (ER) | payer MEDICAID ==
[2020-06-06] MEDS ORDERED: NORMAL SALINE 1000 ML 1,000 ML IV ONE (12:26)
[2020-06-06] MEDS ORDERED: HYDROMORPHONE HCL INJ/PF 2 MG/ML AMPULE IV ONE ×3 (12:26→15:11)
[2020-06-06] MEDS ORDERED: DIPHENHYDRAMINE HCL 50 MG/ML VIAL IV ONE (12:27)
[2020-06-06] MEDS ORDERED: METOCLOPRAMIDE HCL INJ/PF 10 MG/2 ML SDV IV ONE (12:27)
--- NOTE | 2020-06-06 12:30 | ER Document Report ---
ED Medical Screen (RME) - General Chief Complaint: Sickle Cell Crisis Stated Complaint: BODY PAIN Time Seen by Provider: 06/06/20 12:23 Primary Care Provider: AMALIA OROZCO PA-C [Primary Care Provider] - Follow up as needed Mode of Arrival: Ambulatory Information source: Patient Notes: Patient presents complaining of generalized body aches with nausea and vomiting x2 episodes today. Patient is currently 29 weeks . Patient does have a history of sickle cell disease. Patient denies any fever or recent illness. I have greeted and performed a rapid initial assessment of this patient. A comprehensive ED assessment and evaluation of the patient, analysis of test results and completion of the medical decision making process will be conducted by additional ED providers. TRAVEL OUTSIDE OF THE [place] IN LAST 30 DAYS: No - Related Data Allergies/Adverse Reactions: ceftriaxone sodium [From Rocephin] Allergy (Verified 06/06/20 12:22) Cephalosporins Allergy (Verified 06/06/20 12:22) milk [Milk] Allergy (Verified 06/06/20 12:22) Shellfish * [Shellfish] Allergy (Verified 06/06/20 12:22) wheat [Wheat] Allergy (Verified 06/06/20 12:22) Past Medical History - Social History Chew tobacco use (# tins/day): No Drug Abuse: None Family history: None, Reviewed & Not Pertinent - Past Medical History Cardiac Medical History: Reports: Hx Hypertension, Hx Heart Murmur Denies: Hx Coronary Artery Disease, Hx Heart Attack Pulmonary Medical History: Reports: Hx Asthma, Hx Pneumonia - 10/03 Denies: Hx Bronchitis, Hx COPD, Hx Tuberculosis Neurological Medical History: Reports: Hx Migraine, Hx Seizures. Denies: Hx Cerebrovascular Accident Endocrine Medical History: Denies: Hx Diabetes Mellitus Type 1, Hx Diabetes Mellitus Type 2, Hx Hyperthyroidism, Hx Hypothyroidism Renal/ Medical History: Denies: Hx Peritoneal Dialysis GI Medical History: Reports: Hx Gastroesophageal Reflux Disease. Denies: Hx Cirrhosis, Hx Hepatitis Musculoskeltal Medical History: Denies Hx Arthritis, Denies Hx Fibromyalgia, Denies Hx Gout Skin Medical History: Denies Hx Eczema, Reports Hx MRSA, Denies Hx Psoriasis Psychiatric Medical History: Reports: Hx Depression Infectious Medical History: Denies: Hx Hepatitis Past Surgical History: Reports: Hx Adenoidectomy, Hx Cholecystectomy, Hx Oral Surgery - growth removed from under tongue, Hx Tonsillectomy, Other - Port placement 2 and removal for infection, multiple PICC & central lines. Denies: Hx Hysterectomy, Hx Kidney (Renal Surgery), Hx Pacemaker - Immunizations Hx Diphtheria, Pertussis, Tetanus Vaccination: Yes Physical Exam - Vital signs Vitals: Temp Pulse Resp BP Pulse Ox 98.2 F 76 16 137/66 H 99 06/06/20 11:37 06/06/20 11:37 06/06/20 11:37 06/06/20 11:37 06/06/20 11:37 - General General appearance: Alert - Respiratory Respiratory status: No respiratory distress Chest status: Nontender Breath sounds: Normal - Cardiovascular Rhythm: Regular Heart sounds: S1 appreciated, S2 appreciated Course - Vital Signs Vital signs: Temp Pulse Resp BP Pulse Ox 98.2 F 76 16 137/66 H 99 06/06/20 11:37 06/06/20 11:37 06/06/20 11:37 06/06/20 11:37 06/06/20 11:37 Doctor's Discharge - Discharge Referrals: AMALIA OROZCO PA-C [Primary Care Provider] - Follow up as needed
[2020-06-06 13:39] LABS: ABSOLUTE RETICS # 0.236 10^6/uL (0.028-0.122); HEMATOCRIT 25.6 % (36.0-47.0); HEMOGLOBIN 8.8 g/dL (12.0-15.5); MEAN CORPUSCULAR HEMOGLOBIN 29.9 pg (27.0-33.4); MEAN CORPUSCULAR HGB CONC 34.3 g/dL (32.0-36.0); MEAN CORPUSCULAR VOLUME 87 fl (80-97); PLATELET COUNT 311 10^3/uL (150-450); RED BLOOD COUNT 2.93 10^6/uL (3.72-5.28); RED CELL DISTRIBUTION WIDTH 20.2 % (11.5-14.0); RETICULOCYTE COUNT (AUTO) 8.06 % (0.66-2.85)
--- NOTE | 2020-06-06 13:45 | ER Document Report ---
ED General - General Chief Complaint: Sickle Cell Crisis Stated Complaint: BODY PAIN Time Seen by Provider: 06/06/20 12:23 Primary Care Provider: AMALIA OROZCO PA-C [Primary Care Provider] - Follow up as needed Mode of Arrival: Ambulatory TRAVEL OUTSIDE OF THE [place] IN LAST 30 DAYS: No - HPI Notes: Patient is a 29-year-old G2, P0 female approximately 21 9 weeks gestation, who presents to the emergency department for evaluation of pain all over, nausea, vomiting. She has a history of sickle cell anemia. She was getting infusions of IV fluids, Phenergan from her hand collator office. She states they closed for the holiday. She states her pain is becoming bearable. She is had 2 episodes of nonbloody, nonbilious emesis in the last 24 hours. She is still urinating. She denies any abdominal pain. No vaginal bleeding. She is still feeling the baby move. She denies any chest pain or cough, no fevers or shortness of breath. - Related Data Allergies/Adverse Reactions: ceftriaxone sodium [From Rocephin] Allergy (Verified 06/06/20 12:22) Cephalosporins Allergy (Verified 06/06/20 12:22) milk [Milk] Allergy (Verified 06/06/20 12:22) Shellfish * [Shellfish] Allergy (Verified 06/06/20 12:22) wheat [Wheat] Allergy (Verified 06/06/20 12:22) Past Medical History - General Information source: Patient - Social History Smoking Status: Never Smoker Chew tobacco use (# tins/day): No Drug Abuse: None Family History: None, DM, Malignancy Patient has homicidal ideation: No - Past Medical History Cardiac Medical History: Reports: Hx Hypertension, Hx Heart Murmur Denies: Hx Coronary Artery Disease, Hx Heart Attack Pulmonary Medical History: Reports: Hx Asthma, Hx Pneumonia - 10/03 Denies: Hx Bronchitis, Hx COPD, Hx Tuberculosis Neurological Medical History: Reports: Hx Migraine, Hx Seizures. Denies: Hx Cerebrovascular Accident Endocrine Medical History: Denies: Hx Diabetes Mellitus Type 1, Hx Diabetes Mellitus Type 2, Hx Hyperthyroidism, Hx Hypothyroidism Renal/ Medical History: Denies: Hx Peritoneal Dialysis GI Medical History: Reports: Hx Gastroesophageal Reflux Disease. Denies: Hx Cirrhosis, Hx Hepatitis Musculoskeletal Medical History: Denies Hx Arthritis, Denies Hx Fibromyalgia, Denies Hx Gout Skin Medical History: Denies Hx Eczema, Reports Hx MRSA, Denies Hx Psoriasis Psychiatric Medical History: Reports: Hx Depression Infectious Medical History: Denies: Hx Hepatitis Past Surgical History: Reports: Hx Adenoidectomy, Hx Cholecystectomy, Hx Oral Surgery - growth removed from under tongue, Hx Tonsillectomy, Other - Port placement 2 and removal for infection, multiple PICC & central lines. Denies: Hx Hysterectomy, Hx Kidney (Renal Surgery), Hx Pacemaker - Immunizations Hx Diphtheria, Pertussis, Tetanus Vaccination: Yes Hx Pneumococcal Vaccination: 07/08/11 Review of Systems - Review of Systems Constitutional: Weakness EENT: No symptoms reported Cardiovascular: No symptoms reported Respiratory: No symptoms reported Gastrointestinal: See HPI Genitourinary: No symptoms reported Musculoskeletal: See HPI Skin: No symptoms reported Neurological/Psychological: No symptoms reported -: Yes All other systems reviewed and negative Physical Exam - Vital signs Vitals: Temp Pulse Resp BP Pulse Ox 98.2 F 76 16 137/66 H 99 06/06/20 11:37 06/06/20 11:37 06/06/20 11:37 06/06/20 11:37 06/06/20 11:37 - Notes Notes: Vital signs reviewed, please refer to chart. Head is normocephalic, atraumatic. Pupils equal round, reactive to light. Neck is supple without meningismus. Heart is regular rate and rhythm. Lungs are clear to auscultation bilaterally. Abdomen is gravid, nontender, normoactive bowel sounds throughout. Extremities without cyanosis, clubbing. Posterior calves are nontender. Peripheral pulses are equal. Skin is warm and dry. Patient is awake, alert, neurological exam is nonfocal. Course - Re-evaluation Re-evalutation: 06/06/20 13:45 Patient presents to the emergency department for evaluation. Laboratory investigations, fluids, pain medication are ordered. She is currently stable, we will continue to monitor. 06/06/20 16:03 Patient received a total of 3 mg of Dilaudid, as well as IV fluids, Benadryl, Reglan. She is feeling improved, will not drink at home. Her reticulocyte count is mildly elevated, hemoglobin is 8.8. She has multiple chronic laboratory changes, but nothing overly concerning at this time. Her heart tones were unremarkable. I will discharge patient home. She is to follow-up closely with OB as well as hematology. She is to return to the emergency depar tment for worsening or new concerning symptoms of any sort. - Vital Signs Vital signs: Temp Pulse Resp BP Pulse Ox 98.2 F 76 21 H 111/62 96 06/06/20 11:37 06/06/20 11:37 06/06/20 15:01 06/06/20 15:00 06/06/20 15:01 - Laboratory Result Diagrams: 06/06/20 13:00 06/06/20 13:00 Laboratory results interpreted by me: 06/06/20 06/06/20 13:00 13:00 WBC 14.0 H RBC 2.93 L Hgb 8.8 L Hct 25.6 L RDW 20.2 H Reticulocyte # 0.236 H Abs Neuts (Manual) 10.9 H Retic Count (auto) 8.06 H Sodium 135.4 L Carbon Dioxide 20 L BUN 3 L Creatinine 0.43 L Total Bilirubin 1.9 H Direct Bilirubin 0.5 H AST 38 H Alkaline Phosphatase 148 H Discharge - Discharge Clinical Impression: Sickle cell pain crisis Condition: Stable Disposition: HOME, SELF-CARE Instructions: Sickle Cell Crisis ([facility]), Nausea or Vomiting, Nonspecific ([facility]) Additional Instructions: Rest, stay well-hydrated with small, frequent sips of fluids. Follow-up closely with your primary care provider, hand collator, OB. Take Phenergan as needed for severe nausea and vomiting. Watch for drowsiness with this medication. Return to the emergency department with worsening or new concerning symptoms of any sort. Referrals: AMALIA OROZCO PA-C [Primary Care Provider] - Follow up as needed
[2020-06-06 14:06] LABS: ALBUMIN 3.6 g/dL (3.5-5.0); ALKALINE PHOSPHATASE 148 U/L (38-126); ANION GAP 8 (5-19); ASPARTATE AMINO TRANSFERASE 38 U/L (14-36); BILIRUBIN,DIRECT 0.5 mg/dL (0.0-0.4); BILIRUBIN,TOTAL 1.9 mg/dL (0.2-1.3); BLOOD UREA NITROGEN 3 mg/dL (7-20); CALCIUM 8.5 mg/dL (8.4-10.2); CARBON DIOXIDE 20 mmol/L (22-30); CHLORIDE 107 mmol/L (98-107); GLUCOSE 80 mg/dL (75-110); POTASSIUM 3.6 mmol/L (3.6-5.0); TOTAL PROTEIN 7.4 g/dL (6.3-8.2)
[2020-06-06 14:09] LABS: ABSOLUTE LYMPHOCYTES# (MANUAL) 2.4 10^3/uL (0.5-4.7); ABSOLUTE MONOCYTES # (MANUAL) 0.7 10^3/uL (0.1-1.4); BASOPHILS % (MANUAL) 0 % (0-2); EOSINOPHILS % (MANUAL) 0 % (0-6); LYMPHOCYTES % (MANUAL) 17 % (13-45); MONOCYTES % (MANUAL) 5 % (3-13); NUCLEATED RED BLOOD CELLS 2 /100 WBC (0); PLATELET COMMENT ADEQUATE; SEGMENTED NEUTROPHILS % (MAN) 78 % (42-78); TOTAL CELLS COUNTED 100
[2020-06-06 14:10] LABS: ANISOCYTOSIS 2+; POIKILOCYTOSIS 2+; SICKLE RED CELLS 2+
[2020-06-06 14:11] LABS: BURR CELLS 1+; POLYCHROMASIA 1+; TARGET CELLS SLIGHT; TEAR DROP CELLS SLIGHT
[2020-06-06 16:15] LABS: APPEARANCE,URINE SLIGHTLY-CLOUDY; BILIRUBIN,URINE NEGATIVE (NEGATIVE); COLOR,URINE YELLOW; GLUCOSE, URINE NEGATIVE (NEGATIVE); KETONES,URINE NEGATIVE (NEGATIVE); LEUKOCYTE ESTERASE,URINE NEGATIVE (NEGATIVE); NITRITE,URINE NEGATIVE (NEGATIVE); PROTEIN,URINE NEGATIVE (NEGATIVE); URINE SPECIFIC GRAVITY 1.011; UROBILINOGEN,URINE NEGATIVE mg/dL (<2.0)
[2020-06-06 16:28] VITALS: BP 115/64
== END 2020-06-06 16:29 | disposition home or self-care (01) ==
LOC: ER 11:33
DX: O99.013 Anemia complicating pregnancy, third trimester (principal); D57.00 Hb-SS disease with crisis, unspecified; O21.8 Other vomiting complicating pregnancy; Z3A.29 29 weeks gestation of pregnancy
CPT/HCPCS: 96376; 99284; 96361; 96374; 96375; 36415; 83690; 85025; 85045; 80053; 81001; J1200; J2765; J1170; J7030

== ENCOUNTER 2020-06-07 10:29 | Emergency (ER) | payer MEDICAID ==
[2020-06-07] MEDS ORDERED: METOCLOPRAMIDE HCL INJ/PF 10 MG/2 ML SDV IV ONE (10:40)
[2020-06-07] MEDS ORDERED: DIPHENHYDRAMINE HCL 50 MG/ML VIAL IV ONE (10:40)
[2020-06-07] MEDS ORDERED: NORMAL SALINE 1000 ML 1,000 ML IV ONE ×2 (10:40→12:15)
--- NOTE | 2020-06-07 10:43 | ER Document Report ---
ED Medical Screen (RME) - General Chief Complaint: Sickle Cell Crisis Stated Complaint: BODY PAIN,SHORT OF BREATH Time Seen by Provider: 06/07/20 10:37 Primary Care Provider: AMALIA OROZCO PA-C [Primary Care Provider] - Follow up as needed TRAVEL OUTSIDE OF THE [place] IN LAST 30 DAYS: No - HPI Notes: 06/07/20 10:41 29-year-old female 29 weeks with a history of sickle cell crisis presents to the emergency room after being advised by her manager story, Dr. Cornelius, for shortness of breath and pain all over. Patient was seen in the emergency room yesterday and was discharged home. Patient states she has pain underneath her right rib. Denies any fevers or chills. Denies any nausea vomiting or diarrhea. I have greeted and performed a rapid initial assessment of this patient. A comprehensive ED assessment and evaluation of the patient, analysis of test results and completion of the medical decision making process will be conducted by additional ED providers. PHYSICAL EXAMINATION: GENERAL: Well-appearing, well-nourished and in mild distress NECK: Normal range of motion CV: s1, s2 regular LUNGS: No respiratory distress - Related Data Allergies/Adverse Reactions: ceftriaxone sodium [From Rocephin] Allergy (Verified 06/06/20 12:22) Cephalosporins Allergy (Verified 06/06/20 12:22) milk [Milk] Allergy (Verified 06/06/20 12:22) Shellfish * [Shellfish] Allergy (Verified 06/06/20 12:22) wheat [Wheat] Allergy (Verified 06/06/20 12:22) Past Medical History - Social History Family history: None, Reviewed & Not Pertinent - Past Medical History Cardiac Medical History: Reports: Hx Hypertension, Hx Heart Murmur Denies: Hx Coronary Artery Disease, Hx Heart Attack Pulmonary Medical History: Reports: Hx Asthma, Hx Pneumonia - 10/03 Denies: Hx Bronchitis, Hx COPD, Hx Tuberculosis Neurological Medical History: Reports: Hx Migraine, Hx Seizures. Denies: Hx Cerebrovascular Accident Endocrine Medical History: Denies: Hx Diabetes Mellitus Type 1, Hx Diabetes Mellitus Type 2, Hx Hyperthyroidism, Hx Hypothyroidism Renal/ Medical History: Denies: Hx Peritoneal Dialysis GI Medical History: Reports: Hx Gastroesophageal Reflux Disease. Denies: Hx Cirrhosis, Hx Hepatitis Musculoskeltal Medical History: Denies Hx Arthritis, Denies Hx Fibromyalgia, Denies Hx Gout Skin Medical History: Denies Hx Eczema, Reports Hx MRSA, Denies Hx Psoriasis Psychiatric Medical History: Reports: Hx Depression Infectious Medical History: Denies: Hx Hepatitis Past Surgical History: Reports: Hx Adenoidectomy, Hx Cholecystectomy, Hx Oral Surgery - growth removed from under tongue, Hx Tonsillectomy, Other - Port placement 2 and removal for infection, multiple PICC & central lines. Denies: Hx Hysterectomy, Hx Kidney (Renal Surgery), Hx Pacemaker - Immunizations Hx Diphtheria, Pertussis, Tetanus Vaccination: Yes Physical Exam - Vital signs Vitals: Temp Pulse Resp BP Pulse Ox 98.7 F 95 20 117/68 98 06/07/20 10:34 06/07/20 10:34 06/07/20 10:34 06/07/20 10:34 06/07/20 10:34 Course - Vital Signs Vital signs: Temp Pulse Resp BP Pulse Ox 98.7 F 95 20 117/68 98 06/07/20 10:34 06/07/20 10:34 06/07/20 10:34 06/07/20 10:34 06/07/20 10:34 Doctor's Discharge - Discharge Referrals: AMALIA OROZCO PA-C [Primary Care Provider] - Follow up as needed
--- NOTE | 2020-06-07 11:23 | RADIOLOGY REPORT (SQ) ---
EXAM DESCRIPTION: CHEST SINGLE VIEW IMAGES COMPLETED DATE/TIME: 06/07/2020 11:00 am REASON FOR STUDY: sob, 29 weeks preg COMPARISON: 11/04/2019 NUMBER OF VIEWS: One view. TECHNIQUE: Single frontal radiographic view of the chest acquired. LIMITATIONS: None. FINDINGS: LUNGS AND PLEURA: Minimal atelectasis in the lung bases. No infiltrate. MEDIASTINUM AND HILAR STRUCTURES: No masses or contour abnormality. HEART AND VASCULATURE: Cardiac enlargement. Vascular congestion. BONES: No acute findings. HARDWARE: None in the chest. OTHER: Right-sided central line tip overlying cavoatrial junction. IMPRESSION: CARDIAC ENLARGEMENT. VASCULAR CONGESTION. TECHNICAL DOCUMENTATION: JOB ID: [id number] 2010 [employer]- All Rights Reserved Reading location - IP/workstation name: [email or web address]
[2020-06-07 12:02] LABS: ABSOLUTE RETICS # 0.214 10^6/uL (0.028-0.122); HEMATOCRIT 25.3 % (36.0-47.0); HEMOGLOBIN 8.7 g/dL (12.0-15.5); MEAN CORPUSCULAR HEMOGLOBIN 30.3 pg (27.0-33.4); MEAN CORPUSCULAR HGB CONC 34.4 g/dL (32.0-36.0); MEAN CORPUSCULAR VOLUME 88 fl (80-97); RED BLOOD COUNT 2.88 10^6/uL (3.72-5.28); RED CELL DISTRIBUTION WIDTH 19.8 % (11.5-14.0); RETICULOCYTE COUNT (AUTO) 7.43 % (0.66-2.85); WHITE BLOOD COUNT 15.6 10^3/uL (4.0-10.5)
[2020-06-07] MEDS ORDERED: HYDROMORPHONE HCL INJ/PF 2 MG/ML AMPULE IV ONE (12:16)
[2020-06-07 12:23] LABS: ALBUMIN 3.5 g/dL (3.5-5.0); ALKALINE PHOSPHATASE 151 U/L (38-126); ANION GAP 6 (5-19); ASPARTATE AMINO TRANSFERASE 31 U/L (14-36); BILIRUBIN,DIRECT 0.3 mg/dL (0.0-0.4); BLOOD UREA NITROGEN 3 mg/dL (7-20); CALCIUM 8.7 mg/dL (8.4-10.2); CARBON DIOXIDE 20 mmol/L (22-30); CHLORIDE 108 mmol/L (98-107); GLUCOSE 82 mg/dL (75-110); POTASSIUM 3.8 mmol/L (3.6-5.0); TOTAL PROTEIN 6.9 g/dL (6.3-8.2)
[2020-06-07 12:29] LABS: ABSOLUTE LYMPHOCYTES# (MANUAL) 0.8 10^3/uL (0.5-4.7); ABSOLUTE MONOCYTES # (MANUAL) 0.8 10^3/uL (0.1-1.4); BAND NEUTROPHILS % (MANUAL) 1 % (3-5); BASOPHILS % (MANUAL) 0 % (0-2); EOSINOPHILS % (MANUAL) 0 % (0-6); LYMPHOCYTES % (MANUAL) 5 % (13-45); MONOCYTES % (MANUAL) 5 % (3-13); NUCLEATED RED BLOOD CELLS 4 /100 WBC (0); SEGMENTED NEUTROPHILS % (MAN) 89 % (42-78); TOTAL CELLS COUNTED 100
[2020-06-07 12:31] LABS: ANISOCYTOSIS 2+; OVALOCYTES 2+; PLATELET CLUMPS PRESENT; PLATELET COMMENT ADEQUATE; POIKILOCYTOSIS 2+
[2020-06-07 12:32] LABS: POLYCHROMASIA 2+; SICKLE RED CELLS 1+; TARGET CELLS 2+; TEAR DROP CELLS 1+
[2020-06-07 12:33] LABS: PLATELET COUNT 295 10^3/uL (150-450)
--- NOTE | 2020-06-07 13:29 | EKG REPORT ---
SEVERITY:- ABNORMAL ECG - SINUS RHYTHM ABNORMAL T, CONSIDER ISCHEMIA, DIFFUSE LEADS : Confirmed by: Aditya Pat MD 07-Jun-2020 13:28:50
[2020-06-07] MEDS ORDERED: HEPARIN SOD (PORCINE) 1,000 UNIT/ML 10 ML VIAL IV ONE (14:00)
[2020-06-07] MEDS ORDERED: HEPARIN SODIUM,PORCINE/D5W 25,000 UNIT/250 ML RTUINJ IV PRN (14:00)
--- NOTE | 2020-06-07 14:06 | RADIOLOGY REPORT (SQ) ---
EXAM DESCRIPTION: CTA CHEST IMAGES COMPLETED DATE/TIME: 06/07/2020 1:51 pm REASON FOR STUDY: chest pain/sob COMPARISON: None. TECHNIQUE: CT scan of the chest performed using helical scanning technique with dynamic intravenous contrast injection. Images reviewed with lung, soft tissue and bone windows. Reconstructed coronal and sagittal MPR images reviewed. Additional 3 dimensional post-processing performed to develop Maximal Intensity Projection images (SD P). All images stored on PACS. All CT scanners at this facility use dose modulation, iterative reconstruction, and/or weight based d osing when appropriate to reduce radiation dose to as low as reasonably achievable (ALARA). [facility]: Dose Right [facility]: CareDose [facility]: Dose Right [facility]: Teradose 4D [facility]: WhatSalon CONTRAST TYPE AND DOSE: contrast/concentration: Isovue 350.00 mmol/ml; Total Contrast Delivered: 52. 0 ml; Total Saline Delivered: 70.0 ml RENAL FUNCTION: GFR > 60. RADIATION DOSE: CT Rad equipment meets quality standard of care and radiation dose reduction techniq ues were employed. CTDIvol: 18.0 - 19.8 mGy. DLP: 493 mGy-cm. . LIMITATIONS: Timing of contrast. Motion artifact. FINDINGS: LUNGS AND PLEURA: Patchy bilateral reticulonodular and subsegmental airspace opacities. S ubtle ground-glass attenuation in both lower lobes. No cavitation. No effusions. AORTA AND GREAT VESSELS: No aneurysm. No dissection. HEART: Small pericardial effusion. Cardiomegaly. PULMONARY ARTERIES: Filling defects in the branches of both lower lobe pulmonary arteries. No centra l PE. HILAR AND MEDIASTINAL STRUCTURES: No identified masses or abnormal nodes. HARDWARE: None in the chest. UPPER ABDOMEN: No significant findings. Limited exam. THYROID AND OTHER SOFT TISSUES: No masses. No adenopathy. BONES: No acute or significant finding. 3D MIPS: Confirm above findings. OTHER: Central line tip in the right atrium. IMPRESSION: 1. Positive for emboli in branches of both lower lobe pulmonary arteries. No central PE. 2. Bilateral reticulonodular and subsegmental airspace opacities which are nonspecific. No infiltrat e. COMMENT: Findings were called to the ordering provider at 1355 hours. Quality ID # [id number]: Final reports with documentation of one or more dose reduction techniques (e.g., Au tomated exposure control, adjustment of the mA and/or kV according to patient size, use of iterative reconstruction technique) TECHNICAL DOCUMENTATION: JOB ID: [id number] 2010 [employer]- All Rights Reserved Reading location - IP/workstation name: [email or web address]
[2020-06-07 14:24] LABS: INTERNATIONAL RATION (INR) 0.83; PROTHROMBIN TIME 11.6 SEC (11.4-15.4)
[2020-06-07 14:25] LABS: PARTIAL THROMBOPLASTIN TIME 27.8 SEC (23.5-35.8)
--- NOTE | 2020-06-07 14:43 | ER Document Report ---
ED General - General Chief Complaint: Sickle Cell Crisis Stated Complaint: BODY PAIN,SHORT OF BREATH Time Seen by Provider: 06/07/20 10:37 Primary Care Provider: MAALIA OROZCO PA-C [Primary Care Provider] - Follow up as needed Mode of Arrival: Ambulatory Information source: Patient TRAVEL OUTSIDE OF THE [place] IN LAST 30 DAYS: No - HPI Notes: Patient was seen here yesterday for shortness of breath. She returns today with continued shortness of breath as well as right upper lateral chest pain. This pain has been constant and sharp. Is worse with exertion or deep breath and better with rest. No significant radiation. He has had a mild nonproductive cough but no fevers. No known exposure to the Covid virus. She is currently 29 weeks and has had no problems with the to this point. She also does have a history of sickle cell disorder. - Related Data Allergies/Adverse Reactions: ceftriaxone sodium [From Rocephin] Allergy (Verified 06/07/20 10:43) Cephalosporins Allergy (Verified 06/07/20 10:43) milk [Milk] Allergy (Verified 06/07/20 10:43) Shellfish * [Shellfish] Allergy (Verified 06/07/20 10:43) wheat [Wheat] Allergy (Verified 06/07/20 10:43) Past Medical History - General Information source: Patient - Social History Smoking Status: Never Smoker Chew tobacco use (# tins/day): No Frequency of alcohol use: None Drug Abuse: None Family History: None, DM, Malignancy - Past Medical History Cardiac Medical History: Reports: Hx Hypertension, Hx Heart Murmur Denies: Hx Coronary Artery Disease, Hx Heart Attack Pulmonary Medical History: Reports: Hx Asthma, Hx Pneumonia - 10/03 Denies: Hx Bronchitis, Hx COPD, Hx Tuberculosis Neurological Medical History: Reports: Hx Migraine, Hx Seizures. Denies: Hx Cerebrovascular Accident Endocrine Medical History: Denies: Hx Diabetes Mellitus Type 1, Hx Diabetes Mellitus Type 2, Hx Hyperthyroidism, Hx Hypothyroidism Renal/ Medical History: Denies: Hx Peritoneal Dialysis GI Medical History: Reports: Hx Gastroesophageal Reflux Disease. Denies: Hx Cirrhosis, Hx Hepatitis Musculoskeletal Medical History: Denies Hx Arthritis, Denies Hx Fibromyalgia, Denies Hx Gout Skin Medical History: Denies Hx Eczema, Reports Hx MRSA, Denies Hx Psoriasis Psychiatric Medical History: Reports: Hx Depression Infectious Medical History: Denies: Hx Hepatitis Past Surgical History: Reports: Hx Adenoidectomy, Hx Cholecystectomy, Hx Oral Surgery - growth removed from under tongue, Hx Tonsillectomy, Other - Port placement 2 and removal for infection, multiple PICC & central lines. Denies: Hx Hysterectomy, Hx Kidney (Renal Surgery), Hx Pacemaker - Immunizations Hx Diphtheria, Pertussis, Tetanus Vaccination: Yes Hx Pneumococcal Vaccination: 07/08/11 Review of Systems - Review of Systems Constitutional: denies: Chills, Fever Cardiovascular: Chest pain. denies: Palpitations Respiratory: Cough, Short of breath -: Yes All other systems reviewed and negative Physical Exam - Vital signs Vitals: Temp Pulse Resp BP Pulse Ox 98.7 F 95 20 117/68 98 06/07/20 10:34 06/07/20 10:34 06/07/20 10:34 06/07/20 10:34 06/07/20 10:34 Interpretation: Normal - General General appearance: Appears well, Alert - HEENT Head: Normocephalic, Atraumatic Eyes: Normal Pupils: PERRL - Respiratory Respiratory status: No respiratory distress Chest status: Nontender Breath sounds: Normal Chest palpation: Normal - Cardiovascular Rhythm: Regular Heart sounds: Normal auscultation Murmur: No - Abdominal Inspection: Gravid female Distension: No distension Bowel sounds: Normal Tenderness: Nontender Organomegaly: No organomegaly - Back Back: Normal, Nontender - Extremities General upper extremity: Normal inspection, Nontender, Normal color, Normal ROM, Normal temperature General lower extremity: Normal inspection, Nontender, Normal color, Normal ROM, Normal temperature, Normal weight bearing. No: Charo's sign - Neurological Neuro grossly intact: Yes Cognition: Normal Orientation: AAOx4 [place]sey Coma Scale Eye Opening: Spontaneous [place] Coma Scale Verbal: Oriented [place] Coma Scale Motor: Obeys Commands [place] Coma Scale Total: 15 Speech: Normal Motor strength normal: LUE, RUE, LLE, RLE Sensory: Normal - Psychological Associated symptoms: Normal affect, Normal mood - Skin Skin Temperature: Warm Skin Moisture: Dry Skin Color: Normal Course - Re-evaluation Re-evalutation: 06/07/20 14:40 Patient presents with chest pain and shortness of breath. CTA shows evidence of bilateral pulmonary emboli for which patient will be treated with heparin. Patient also has some groundglass opacities but no known Covid exposure. Patient will require transfer because she is a maternal- medicine patient. She will be tested for Covid upon arrival at receiving hospital. - Vital Signs Vital signs: Temp Pulse Resp BP Pulse Ox 98.7 F 95 20 117/68 98 06/07/20 10:34 06/07/20 10:34 06/07/20 10:34 06/07/20 10:34 06/07/20 10:34 - Laboratory Result Diagrams: 06/07/20 11:40 06/07/20 11:40 Laboratory results interpreted by me: 06/07/20 06/07/20 06/07/20 11:40 11:40 11:40 WBC 15.6 H RBC 2.88 L Hgb 8.7 L Hct 25.3 L RDW 19.8 H Reticulocyte # 0.214 H Seg Neuts % (Manual) 89 H Band Neutrophils % 1 L Lymphocytes % (Manual) 5 L Abs Neuts (Manual) 14.0 H Retic Count (auto) 7.43 H Sodium 133.9 L Chloride 108 H Carbon Dioxide 20 L BUN 3 L Creatinine 0.43 L Total Bilirubin 2.0 H Alkaline Phosphatase 151 H NT-Pro-B Natriuret Pep 317 H - Diagnostic Test Radiology reviewed: Image reviewed, Reports reviewed - EKG Interpretation by Me EKG shows normal: Sinus rhythm Rate: Normal - 80 Rhythm: NSR New Point/QRS: No: Right axis deviation, Left axis deviation Critical Care Note - Critical Care Note Total time excluding time spent on procedures (mins): 50 Comments: Approximate 50 minutes of critical care time were spent on this patient with bilateral pulmonary emboli, sickle cell anemia, and . Discharge - Discharge Clinical Impression: Sickle cell anemia of mother during Pulmonary embolism affecting Qualifiers: Trimester: third trimester Qualified Code(s): O88.213 - Thromboembolism in , third trimester Condition: Serious Disposition: [facility] Referrals: AMALIA OROZCO PA-C [Primary Care Provider] - Follow up as needed
[2020-06-07 14:48] VITALS: BP 143/80
[2020-06-07 15:13] LABS: APPEARANCE,URINE CLEAR; BILIRUBIN,URINE NEGATIVE (NEGATIVE); COLOR,URINE YELLOW; GLUCOSE, URINE NEGATIVE (NEGATIVE); KETONES,URINE NEGATIVE (NEGATIVE); LEUKOCYTE ESTERASE,URINE MODERATE (NEGATIVE); NITRITE,URINE NEGATIVE (NEGATIVE); PROTEIN,URINE NEGATIVE (NEGATIVE); URINE SPECIFIC GRAVITY 1.017
[2020-06-07] MEDS ORDERED: HEPARIN SOD (PORCINE) 1,000 UNIT/ML 10 ML VIAL IV PRN (17:01)
== END 2020-06-07 15:08 | disposition short-term general hospital (02) ==
LOC: ER 10:29
DX: O99.013 Anemia complicating pregnancy, third trimester (principal); D57.00 Hb-SS disease with crisis, unspecified; O88.213 Thromboembolism in pregnancy, third trimester; O26.893 Other specified pregnancy related conditions, third trimester; M79.10 Myalgia, unspecified site; R06.02 Shortness of breath; O16.3 Unspecified maternal hypertension, third trimester; O99.513 Diseases of the respiratory system complicating pregnancy, third trimester; J45.909 Unspecified asthma, uncomplicated; Z3A.29 29 weeks gestation of pregnancy; Z88.8 Allergy status to other drugs, medicaments and biological substances
CPT/HCPCS: 93005; 99285; 96361; 96375; 96365; 36415; 85025; 85610; 85730; 85045; 80053; 81001; 83880; 71045; 71275; 93010; J1644 ×2; J1200; J2765; J1170; J7030

== ENCOUNTER 2020-07-09 13:05 | Emergency (ER) | payer MEDICAID ==
[2020-07-09 13:37] VITALS: BP 135/85
--- NOTE | 2020-07-09 14:27 | ER Document Report ---
Doctor's Note Notes: 07/09/20 14:23 29-year-old female with postoperative complication I have been asked to evaluate with the nurse practitioner. Patient has a history of sickle cell disease and recently had a on the high risk obstetrical service at [facility]. She had a low transverse C- section and comes in today because of minor wound dehiscence. This was apparently going on before she left COUNTS INCLUDE 234 BEDS AT THE [facility] and she comes in now because she can see a small blood clot in the area although there is no active bleeding. She has no fever, chills, nausea or vomiting and the area is not painful. I have reviewed notes in the chart and briefly examined the patient personally. She has a 3.0 cm area of dehiscence at the center of her surgical wound and there is some small amount of clot visualized beneath this. Patient is awake alert in no acute distress whatsoever. I recommended that the nurse practitioner gently probe the wound with sterile Q- tip to be sure the fascia is intact and she can touch base by telephone with the OB service at [facility] in anticipation of outpatient follow-up within the next 2 to 3 days. Red flag warning signs are discussed with the patient. Findings, clinical impression and plan of treatment have been discussed with patient/family. Understanding of current findings and recommendations has been acknowledged by them and there is agreement regarding disposition and follow-up.
--- NOTE | 2020-07-09 14:29 | ER Document Report ---
HPI - HPI Time Seen by Provider: 07/09/20 14:15 Pain Level: 4 Notes: 29-year-old female patient with history of sickle cell presenting to the emergency department with concern for possible wound opening of her incision. Patient reports she had a done on 06/22/2020 in [place]. Patient reports her primary [employer] group is [facility] however due to her sickle cell disease they sent her to [place] for the delivery of her baby. She reports that earlier today her wound opened. She denies any increased pain to the area, denies any recent fever, chills, nausea, vomiting, diarrhea. - ROS Systems Reviewed and Negative: Yes All other systems reviewed and negative - REPRODUCTIVE Reproductive: REPORTS: : - DERM Skin Color: Other - Incision open Past Medical History - General Information source: Patient - Social History Smoking Status: Never Smoker Family History: None, DM, Malignancy - Past Medical History Cardiac Medical History: Reports: Hx Hypertension, Hx Heart Murmur Pulmonary Medical History: Reports: Hx Asthma, Hx Pneumonia - 10/03 Neurological Medical History: Reports: Hx Migraine, Hx Seizures Renal/ Medical History: Denies: Hx Peritoneal Dialysis GI Medical History: Reports: Hx Gastroesophageal Reflux Disease. Denies: Hx Cirrhosis, Hx Hepatitis Musculoskeletal Medical History: Denies Hx Arthritis, Denies Hx Fibromyalgia, Denies Hx Gout Skin Medical History: Denies Hx Eczema, Reports Hx MRSA, Denies Hx Psoriasis Psychiatric Medical History: Reports: Hx Depression Infectious Medical History: Denies: Hx Hepatitis Past Surgical History: Reports: Hx Adenoidectomy, Hx Cholecystectomy, Hx Oral Surgery - growth removed from under tongue, Hx Tonsillectomy, Other - Port placement 2 and removal for infection, multiple PICC & central lines. Denies: Hx Hysterectomy, Hx Kidney (Renal Surgery), Hx Pacemaker - Immunizations Hx Diphtheria, Pertussis, Tetanus Vaccination: Yes Hx Pneumococcal Vaccination: 07/08/11 Vertical Provider Document - CONSTITUTIONAL Notes: PHYSICAL EXAMINATION: GENERAL: Well-appearing, well-nourished and in no acute distress. HEAD: Atraumatic, normocephalic. EYES: Pupils equal round and reactive to light, extraocular movements intact, conjunctiva are normal. ENT: Nares patent, oropharynx clear without exudates. Moist mucous membranes. NECK: Normal range of motion, supple without lymphadenopathy LUNGS: Breath sounds clear to auscultation bilaterally and equal. No wheezes rales or rhonchi. HEART: Regular rate and rhythm without murmurs ABDOMEN: Soft, nontender, nondistended abdomen. No guarding, no rebound. No masses appreciated. Female : deferred Musculoskeletal: Normal range of motion, no pitting or edema. No cyanosis. NEUROLOGICAL: Cranial nerves grossly intact. Normal speech, normal gait. N ormal sensory, motor exams PSYCH: Normal mood, normal affect. SKIN: 1 cm open area in low transverse incision. No surrounding erythema, warmth or foul-smelling drainage. - INFECTION CONTROL TRAVEL OUTSIDE OF THE [place] IN LAST 30 DAYS: No Course - Re-evaluation Re-evalutation: Dr. Long came to evaluate the patient in triage. 07/09/20 14:28 Called and spoke with Dr. Mor Kevin from [facility]. He agrees with plan of care, wound care, follow-up with their office. - Vital Signs Vital signs: Temp Pulse Resp BP Pulse Ox 98.3 F 87 18 135/85 H 98 07/09/20 13:34 07/09/20 13:34 07/09/20 13:34 07/09/20 13:34 07/09/20 13:34 - Laboratory Results Critical Laboratory Results Reviewed: No Critical Results - Radiology Results Critical Radiology Results Reviewed: No Critical Results Discharge - Discharge Clinical Impression: Dehiscence of section wound, Condition: Stable Disposition: HOME, SELF-CARE Additional Instructions: Please change dressing 1-2 times daily. Return if worsening pain, bleeding, development of fever or redness around the area. Call [facility] Saturday morning to schedule your follow-up appointment. Return if needed. Referrals: GOKUL KEVIN MD [ACTIVE STAFF] - Follow up as needed
== END 2020-07-09 14:30 | disposition home or self-care (01) ==
LOC: ER 13:05
DX: O90.0 Disruption of cesarean delivery wound (principal)
CPT/HCPCS: 99282

== ENCOUNTER 2020-07-27 09:08 | Emergency (ER) | payer MEDICAID ==
[2020-07-27] MEDS ORDERED: NORMAL SALINE 1000 ML 1,000 ML IV ONE ×2 (11:08→12:20)
[2020-07-27] MEDS ORDERED: HYDROMORPHONE HCL INJ/PF 2 MG/ML AMPULE IV ONE ×3 (11:09→13:31)
[2020-07-27 12:57] LABS: HEMOGLOBIN 9.3 g/dL (12.0-15.5); MEAN CORPUSCULAR HEMOGLOBIN 29.4 pg (27.0-33.4); MEAN CORPUSCULAR HGB CONC 34.6 g/dL (32.0-36.0); MEAN CORPUSCULAR VOLUME 85 fl (80-97); PLATELET COUNT 310 10^3/uL (150-450); RED BLOOD COUNT 3.18 10^6/uL (3.72-5.28); RED CELL DISTRIBUTION WIDTH 19.6 % (11.5-14.0); WHITE BLOOD COUNT 11.8 10^3/uL (4.0-10.5)
[2020-07-27 13:12] LABS: ALBUMIN 3.9 g/dL (3.5-5.0); ALKALINE PHOSPHATASE 63 U/L (38-126); ANION GAP 5 (5-19); ASPARTATE AMINO TRANSFERASE 32 U/L (14-36); BILIRUBIN,DIRECT 0.1 mg/dL (0.0-0.4); BILIRUBIN,TOTAL 1.6 mg/dL (0.2-1.3); BLOOD UREA NITROGEN 6 mg/dL (7-20); CALCIUM 8.6 mg/dL (8.4-10.2); CARBON DIOXIDE 22 mmol/L (22-30); CHLORIDE 112 mmol/L (98-107); GLUCOSE 91 mg/dL (75-110); POTASSIUM 4.3 mmol/L (3.6-5.0); TOTAL PROTEIN 6.8 g/dL (6.3-8.2)
[2020-07-27 13:27] LABS: ABSOLUTE LYMPHOCYTES# (MANUAL) 3.2 10^3/uL (0.5-4.7); ABSOLUTE MONOCYTES # (MANUAL) 1.3 10^3/uL (0.1-1.4); BASOPHILS % (MANUAL) 0 % (0-2); EOSINOPHILS % (MANUAL) 4 % (0-6); LYMPHOCYTES % (MANUAL) 25 % (13-45); MONOCYTES % (MANUAL) 11 % (3-13); NUCLEATED RED BLOOD CELLS 1 /100 WBC (0); SEGMENTED NEUTROPHILS % (MAN) 58 % (42-78); TOTAL CELLS COUNTED 100
[2020-07-27 13:28] LABS: ANISOCYTOSIS 2+; PLATELET COMMENT ADEQUATE; POIKILOCYTOSIS 2+; SICKLE RED CELLS 2+
[2020-07-27 13:29] LABS: HOWELL-JOLLY BODIES PRESENT; OVALOCYTES 2+; POLYCHROMASIA SLIGHT; TARGET CELLS 2+
[2020-07-27 13:30] LABS: BURR CELLS SLIGHT; PAPPENHEIMER BODIES PRESENT; SCHISTOCYTES SLIGHT
--- NOTE | 2020-07-27 14:01 | ER Document Report ---
ED General - General Chief Complaint: Sickle Cell Crisis Stated Complaint: SICKLE CELL CRISIS Time Seen by Provider: 07/27/20 10:38 Primary Care Provider: AMALIA OROZCO PA-C [Primary Care Provider] - Follow up as needed Mode of Arrival: Ambulatory Information source: Patient TRAVEL OUTSIDE OF THE [place] IN LAST 30 DAYS: No - HPI Notes: Patient has known sickle cell disease. She presents stating she is having an exacerbation of her sickle cell. She states she is having leg pain and back pain and that this is her typical sickle cell pain. She denies any new recent infections. No problems with urination or bowel movements. No cough cold or congestion. No known Covid virus exposures. She states the pain is severe and constant. Is worse with movement and better with rest. - Related Data Allergies/Adverse Reactions: ceftriaxone sodium [From Rocephin] Allergy (Verified 07/27/20 10:41) Cephalosporins Allergy (Verified 07/27/20 10:41) milk [Milk] Allergy (Verified 07/27/20 10:41) Shellfish * [Shellfish] Allergy (Verified 07/27/20 10:41) wheat [Wheat] Allergy (Verified 07/27/20 10:41) Home Medications: warfarin. oxycodone Past Medical History - General Information source: Patient - Social History Smoking Status: Never Smoker Frequency of alcohol use: None Drug Abuse: None Family History: None, DM, Malignancy - Past Medical History Cardiac Medical History: Reports: Hx Hypertension, Hx Heart Murmur Denies: Hx Coronary Artery Disease, Hx Heart Attack Pulmonary Medical History: Reports: Hx Asthma, Hx Pneumonia - 10/03 Denies: Hx Bronchitis, Hx COPD, Hx Tuberculosis Neurological Medical History: Reports: Hx Migraine, Hx Seizures. Denies: Hx Cerebrovascular Accident Endocrine Medical History: Denies: Hx Diabetes Mellitus Type 1, Hx Diabetes Mellitus Type 2, Hx Hyperthyroidism, Hx Hypothyroidism Renal/ Medical History: Denies: Hx Peritoneal Dialysis GI Medical History: Reports: Hx Gastroesophageal Reflux Disease. Denies: Hx Cirrhosis, Hx Hepatitis Musculoskeletal Medical History: Denies Hx Arthritis, Denies Hx Fibromyalgia, Denies Hx Gout Skin Medical History: Denies Hx Eczema, Reports Hx MRSA, Denies Hx Psoriasis Psychiatric Medical History: Reports: Hx Depression Infectious Medical History: Denies: Hx Hepatitis Past Surgical History: Reports: Hx Adenoidectomy, Hx Cholecystectomy, Hx Oral Surgery - growth removed from under tongue, Hx Tonsillectomy, Other - Port placement 2 and removal for infection, multiple PICC & central lines. Denies: Hx Hysterectomy, Hx Kidney (Renal Surgery), Hx Pacemaker - Immunizations Hx Diphtheria, Pertussis, Tetanus Vaccination: Yes Hx Pneumococcal Vaccination: 07/08/11 Review of Systems - Review of Systems Constitutional: denies: Chills, Fever Cardiovascular: denies: Chest pain, Palpitations Respiratory: denies: Cough, Short of breath -: Yes All other systems reviewed and negative Physical Exam - Vital signs Vitals: Temp Pulse Resp BP Pulse Ox 98.1 F 80 16 123/74 100 07/27/20 09:11 07/27/20 09:11 07/27/20 09:11 07/27/20 09:11 07/27/20 09:11 Interpretation: Normal - General General appearance: Appears well, Alert - HEENT Head: Normocephalic, Atraumatic Eyes: Normal Pupils: PERRL - Respiratory Respiratory status: No respiratory distress Chest status: Nontender Breath sounds: Normal Chest palpation: Normal - Cardiovascular Rhythm: Regular Heart sounds: Normal auscultation Murmur: No - Abdominal Inspection: Normal Distension: No distension Bowel sounds: Normal Tenderness: Nontender Organomegaly: No organomegaly - Back Back: Normal, Nontender - Extremities General upper extremity: Normal inspection, Nontender, Normal color, Normal ROM, Normal temperature General lower extremity: Normal inspection, Nontender, Normal color, Normal ROM, Normal temperature, Normal weight bearing. No: Charo's sign - Neurological Neuro grossly intact: Yes Cognition: Normal Orientation: AAOx4 [place] Coma Scale Eye Opening: Spontaneous [place] Coma Scale Verbal: Oriented [place] Coma Scale Motor: Obeys Commands [place] Coma Scale Total: 15 Speech: Normal Motor strength normal: LUE, RUE, LLE, RLE Sensory: Normal - Psychological Associated symptoms: Normal affect, Normal mood - Skin Skin Temperature: Warm Skin Moisture: Dry Skin Color: Normal Course - Re-evaluation Re-evalutation: 07/27/20 14:00 Patient reevaluated just now. Patient is walking about the room without complaint. States she feels much better and is ready for discharge. Labora tories are unremarkable and stable. Patient's vital signs are also stable - Vital Signs Vital signs: Temp Pulse Resp BP Pulse Ox 98.1 F 80 16 129/80 H 97 07/27/20 09:11 07/27/20 09:11 07/27/20 12:01 07/27/20 12:01 07/27/20 12:01 - Laboratory Results Result Diagrams: 07/27/20 12:32 07/27/20 12:32 Laboratory Results Interpreted: 07/27/20 07/27/20 12:32 12:32 WBC 11.8 H RBC 3.18 L Hgb 9.3 L Hct 27.0 L RDW 19.6 H Chloride 112 H BUN 6 L Total Bilirubin 1.6 H Critical Laboratory Results Reviewed: No Critical Results - Radiology Results Critical Radiology Results Reviewed: No Critical Results Discharge - Discharge Clinical Impression: Sickle cell anemia with pain Condition: Stable Disposition: HOME, SELF-CARE Instructions: Sickle Cell Crisis ([facility]) Forms: Return to Work Referrals: AMALIA OROZCO PA-C [Primary Care Provider] - Follow up in 3-5 days
[2020-07-27 14:18] VITALS: BP 132/78
== END 2020-07-27 14:15 | disposition home or self-care (01) ==
LOC: ER 09:08
DX: D57.00 Hb-SS disease with crisis, unspecified (principal); I10 Essential (primary) hypertension; J45.909 Unspecified asthma, uncomplicated; Z79.01 Long term (current) use of anticoagulants; Z79.891 Long term (current) use of opiate analgesic; Z88.1 Allergy status to other antibiotic agents; Z91.011 Allergy to milk products; Z91.013 Allergy to seafood; Z91.018 Allergy to other foods
CPT/HCPCS: 96376; 99284; 96361; 96374; 36415; 85025; 80053; J1170; J7030